=== PATIENT | male | born 1950 | race Caucasian/White ===

== ENCOUNTER 2017-05-04 17:56 | Emergency (ER) | payer MEDICARE, BC ==
--- NOTE | 2017-05-04 19:53 | ED ---
General Adult HPI - General Chief complaint: Extremity Injury, Upper Stated complaint: RT ARM INJURY FROM FALL Time Seen by Provider: 05/04/17 19:16 Source: patient, family, RN notes reviewed Mode of arrival: wheelchair Limitations: physical limitation - History of Present Illness Initial comments: Patient 66-year-old male who presents emergency room today with a chief complaint of an injury to the right arm. He does admit that he was walking out of the [place]ains when he tripped falling for outstretched arm. He does admit to pain locally to the right elbow down to the wrist area. He denies any head injury or loss consciousness. States she's not on any blood thinners. He missed the pain is worse with movement. He denies any other complaints or symptoms. Patient denies any recent fever, chills, shortness of breath, chest pain, back pain, abdominal pain, nausea or vomiting, numbness or tingling, dysuria or hematuria, constipation or diarrhea, headaches or visual changes, or any other complaints. - Related Data Home Medications Medication Instructions Recorded Confirmed ALPRAZolam [Xanax] 0.25 mg PO TID PRN 03/03/14 05/19/16 Carbidopa-Levodopa 25-100 mg 1 tab PO DAILY 03/03/14 05/22/16 [Sinemet 25-100 mg] Cetirizine HCl 10 mg PO DAILY 03/03/14 05/22/16 Nitroglycerin Sl Tabs [Nitrostat] 0.4 mg SUBLINGUAL Q5M PRN 03/03/14 05/19/16 Pantoprazole Sodium [Protonix] 40 mg PO DAILY 03/03/14 05/22/16 Prasugrel [Effient] 10 mg PO DAILY 03/03/14 05/22/16 Rosuvastatin Calcium [Crestor] 40 mg PO DAILY 03/03/14 05/22/16 amLODIPine [Norvasc] 5 mg PO DAILY 03/03/14 05/22/16 Aspirin 81 mg PO DAILY 06/21/14 05/22/16 Insulin Aspart [NovoLOG] See Protocol SQ CONTINUOUS 07/06/14 05/22/16 Allopurinol [Zyloprim] 100 mg PO DAILY 05/19/16 05/22/16 Calcitriol 0.25 mcg PO DIRECTED 05/19/16 05/19/16 Cholecalciferol [Vitamin D3] 1,000 unit PO DAILY 05/19/16 05/22/16 Escitalopram [Lexapro] 20 mg PO DAILY 05/19/16 05/22/16 Ezetimibe [Zetia] 10 mg PO DAILY 05/19/16 05/22/16 Ferrous Sulfate [Feosol] 325 mg PO DAILY 05/19/16 05/22/16 Lisinopril [Zestril] 10 mg PO DAILY 05/19/16 05/22/16 Pregabalin [Lyrica] 50 mg PO BID 05/19/16 05/22/16 Primidone [Mysoline] 50 mg PO BID 05/19/16 05/22/16 Propranolol HCl [Inderal] 60 mg PO DAILY 05/19/16 05/22/16 Rotigotine [Neupro] 1 patch TOPICAL DAILY 05/19/16 05/22/16 Spironolactone-Hctz 25-25Mg 1 tab PO DAILY 05/19/16 05/22/16 [Aldactazide 25-25Mg] Cephalexin [Keflex] 500 mg PO QID 05/22/16 05/22/16 guaiFENesin-Coden 100-10MG/5ML 10 ml PO Q6HR PRN 05/22/16 05/22/16 [Robitussin AC] Previous Rx's Medication Instructions Recorded predniSONE 10 mg PO DAILY #24 tab 05/23/16 Ibuprofen [Motrin] 600 mg PO Q6HR PRN #40 day 05/04/17 Allergies Allergy/AdvReac Type Severity Reaction Status Date / Time No Known Allergies Allergy Verified 05/04/17 18:16 Review of Systems ROS Statement: Those systems with pertinent positive or pertinent negative responses have been documented in the HPI. ROS Other: All systems not noted in ROS Statement are negative. Past Medical History Past Medical History: Coronary Artery Disease (CAD), Chest Pain / Angina, Heart Failure, Diabetes Mellitus, Hyperlipidemia, Hypertension, Myocardial Infarction ([place]), Renal Disease Additional Past Medical History / Comment(s): 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, coronary artery disease, diabetes mellitus, hypertension, chronic renal failure, hyperlipidemia Last Myocardial Infarction Date:: 03/04/14 History of Any Multi-Drug Resistant Organisms: None Reported Past Surgical History: Cholecystectomy, Heart Catheterization, Heart Catheterization With Stent Additional Past Surgical History / Comment(s): shoulder, hemmroid, cardiac stent in june 2014 Past Anesthesia/Blood Transfusion Reactions: No Reported Reaction Additional Past Anesthesia/Blood Transfusion Reaction / Comment(s): Never had a blood transfusion Date of Last Stent Placement:: 05/2014 Past Psychological History: Anxiety Smoking Status: Former smoker Past Alcohol Use History: None Reported Past Drug Use History: None Reported - Past Family History Mother Family Medical History: Diabetes Mellitus General Exam - General Exam Comments Initial Comments: General: The patient is awake and alert, in no distress, and does not appear acutely ill. Neck: The neck is supple, there is no tenderness or JVD. Cardiovascular: There is a regular rate and rhythm. No murmur, rub or gallop is appreciated. Respiratory: Lungs are clear to auscultation, respirations are non-labored, breath sounds are equal. No wheezes, stridor, rales, or rhonchi. Musculoskeletal: Patient does have some moderate swelling tenderness and pain to the medial aspect of the right elbow and proximal right forearm. No tenderness down to the right wrist. Shows good flexion and extension at the right wrist. There is no tenderness to the right shoulder or in the humerus. Pulses equal bilaterally 2+. No tenderness around to the right hand digits. Cap refill less than 2 seconds. Sensations intact. Neurological: A&O x 3. CN II-XII intact, There are no obvious motor or sensory deficits. Coordination appears grossly intact. Speech is normal. Skin: Skin is warm and dry and no rashes or lesions are noted. Psychiatric: Normal mood and affect. Limitations: physical limitation Course Vital Signs 05/04/17 18:14 Temperature 97.5 F L Pulse Rate 67 Respiratory 20 Rate Blood Pressure 193/81 O2 Sat by Pulse 98 Oximetry Medical Decision Making - Medical Decision Making X-rays reviewed negative for any acute fracture dislocation. Results were discussed with the patient per patient is advised follow-up with family doctor/ orthopedics in 7-10 days if symptoms persist for repeat x-rays and further evaluation. Disposition Clinical Impression: Elbow contusion Disposition: HOME SELF-CARE Condition: Good Instructions: Contusion in Adults (ED) Additional Instructions: Please use medication as discussed. Please follow-up with family doctor in the next 2 days of symptoms have not improved. Please return to emergency room if the symptoms increase or worsen or for any other concerns. Prescriptions: Ibuprofen [Motrin] 600 mg PO Q6HR PRN #40 day PRN Reason: Pain Referrals: Harmeet Garner MD [Primary Care Provider] - 1-2 days Time of Disposition: 20:35
--- NOTE | 2017-05-04 20:19 | XR ---
EXAMINATION TYPE: XR elbow complete RT DATE OF EXAM: 05/04/2017 CLINICAL HISTORY: pain TECHNIQUE: Frontal, lateral and oblique images of the right elbow are obtained. COMPARISON: None. FINDINGS: There is no acute fracture/dislocation evident of the elbow. No abnormal fat pad signs ar e seen. Spurring noted. Lateral compartment loose bodies noted. IMPRESSION: There is no acute fracture or dislocation of the elbow. ICD 10 NO FRACTURE, INITIAL EVALUATION
--- NOTE | 2017-05-04 20:20 | XR ---
EXAMINATION TYPE: XR forearm RT DATE OF EXAM: 05/04/2017 CLINICAL HISTORY: pain TECHNIQUE: Frontal and lateral images of the right forearm are obtained. COMPARISON: None. FINDINGS: There is no acute fracture/dislocation evident. The joint spaces appear within normal limi ts. The overlying soft tissue appears unremarkable. Vascular calcifications identified. IMPRESSION: There is no acute fracture or dislocation. ICD 10 NO FRACTURE, INITIAL EVALUATION
[2017-05-04 20:49] VITALS: BP 155/70; PULSE 60; RESP 18; TEMP 98.2
== END 2017-05-04 20:48 | disposition home or self-care (01) ==
LOC: EC 17:56
DX: S50.01XA Contusion of right elbow, initial encounter (principal); M79.631 Pain in right forearm; M79.89 Other specified soft tissue disorders; M25.531 Pain in right wrist; E78.5 Hyperlipidemia, unspecified; I13.0 Hypertensive heart and chronic kidney disease with heart failure and stage 1 through stage 4 chronic kidney disease, or unspecified chronic kidney disease; N18.9 Chronic kidney disease, unspecified; E11.22 Type 2 diabetes mellitus with diabetic chronic kidney disease; I25.10 Atherosclerotic heart disease of native coronary artery without angina pectoris; F41.9 Anxiety disorder, unspecified; I25.2 Old myocardial infarction; Z87.891 Personal history of nicotine dependence; Z79.4 Long term (current) use of insulin; Z79.82 Long term (current) use of aspirin; Z79.899 Other long term (current) drug therapy; Z86.79 Personal history of other diseases of the circulatory system; W18.09XA Striking against other object with subsequent fall, initial encounter; Y93.01 Activity, walking, marching and hiking
CPT/HCPCS: 99283

== ENCOUNTER → 2017-09-12 | Outpatient (CLI) | payer MEDICARE, BC ==
[2017-09-12 11:52] LABS: Appearance,Urine Clear (Clear); Bilirubin,Urine Negative (Negative); Blood,Urine Negative (Negative); Color,Urine Yellow; Glucose,Urine (UA) Negative (Negative); Hyaline Casts,Urine 17 /lpf (0-2); Ketones,Urine Negative (Negative); Leukocyte Esterase,Urine Negative (Negative); Mucus,Urine Rare /hpf; Nitrite,Urine Negative (Negative); Protein,Urine 1+ (Negative); RBC,Urine 1 /hpf (0-5); Specific Gravity,Urine 1.013 (1.001-1.035); Urobilinogen,Urine <2.0 mg/dL (<2.0); WBC,Urine <1 /hpf (0-5)
[2017-09-12 12:00] LABS: Calcium 9.4 mg/dL (8.4-10.2); Potassium 4.9 mmol/L (3.5-5.1)
[2017-09-12 12:03] LABS: Basophils % (A) 1 %; Eosinophils # (A) 0.1 k/uL (0-0.7); Eosinophils % (A) 2 %; HCT 38.9 % (39.0-53.0); HGB 12.9 gm/dL (13.0-17.5); Lymphocytes # (A) 1.3 k/uL (1.0-4.8); Lymphocytes % (A) 30 %; MCH 30.4 pg (25.0-35.0); MCHC 33.3 g/dL (31.0-37.0); MCV 91.3 fL (80.0-100.0); Mean Platelet Volume 7.5; Monocytes # (A) 0.3 k/uL (0-1.0); Monocytes % (A) 6 %; Neutrophils # (A) 2.6 k/uL (1.3-7.7); Neutrophils % (A) 58 %; Platelet Count 177 k/uL (150-450); RBC 4.26 m/uL (4.30-5.90); RDW 13.4 % (11.5-15.5); WBC 4.4 k/uL (3.8-10.6)
--- NOTE | 2017-09-12 15:39 | US ---
EXAMINATION TYPE: US kidneys/renal and bladder DATE OF EXAM: 09/12/2017 COMPARISON: 06/20/2013 CLINICAL HISTORY: 66-year-old male R31.21 Micro Hematuria. Microscopic hematuria Technique: Multiple sonographic images of the kidneys and bladder are obtained. FINDINGS: Right Kidney: 11.7 x 5.8 x 5.8 cm without hydronephrosis. 2.8 x 2.3 x 1.9cm cystic area mid pole. Left Kidney: 11.6 x 6.1 x 5.3 cm without hydronephrosis. 3.5 x 2.6 x 4.4cm cystic area inferior pole Bladder is highly distended with mild circumferential bladder wall thickening at 7 mm.Bilateral Jet s seen: yes IMPRESSION: 1. No hydronephrosis. 2. Mild circumferential bladder wall thickening could represent chronic bladder wall hypertrophy or c ystitis. Clinically correlate.
[2017-09-12 21:31] LABS: Hemoglobin A1C 8.3 % (4.0-6.0)
== END | disposition home or self-care (01) ==
LOC: RADUSWWP 10:40
PROVIDERS: ATTEND Urology
DX: N32.89 Other specified disorders of bladder (principal); E11.21 Type 2 diabetes mellitus with diabetic nephropathy
CPT/HCPCS: 36415; 76770; 80048; 81001; 83036; 85025

== ENCOUNTER → 2018-01-23 | Outpatient (CLI) | payer MEDICARE, BC ==
--- NOTE | 2018-01-23 12:45 | XR ---
EXAMINATION TYPE: XR Hip Bilateral and AP pelvis DATE OF EXAM: 01/23/2018 COMPARISON: NONE HISTORY: Pain bilateral hips TECHNIQUE: Bilateral hips examined in 2 projections each and supplemented with an AP pelvis. FINDINGS: Femoral heads articulate with the acetabulum. Joint spaces appear preserved. No acute fract ures or. There is some hyperostosis at the muscle insertion sites on the pelvis. Vascular calcificati on is also noted. IMPRESSION: 1. No acute osseous abnormality bilateral hips
== END | disposition home or self-care (01) ==
LOC: RADXRMAIN 12:18
PROVIDERS: ATTEND Internal Medicine
DX: M25.551 Pain in right hip (principal); M25.552 Pain in left hip
CPT/HCPCS: 73521

== ENCOUNTER 2018-05-28 01:33 | Observation (INO) | payer MEDICARE, BC ==
[2018-05-28 02:05] LABS: Basophils % (A) 1 %; Eosinophils # (A) 0.1 k/uL (0-0.7); Eosinophils % (A) 2 %; HCT 36.6 % (39.0-53.0); HGB 12.3 gm/dL (13.0-17.5); Lymphocytes # (A) 1.6 k/uL (1.0-4.8); Lymphocytes % (A) 29 %; MCH 29.9 pg (25.0-35.0); MCHC 33.7 g/dL (31.0-37.0); MCV 88.9 fL (80.0-100.0); Mean Platelet Volume 7.8; Monocytes # (A) 0.5 k/uL (0-1.0); Monocytes % (A) 9 %; Neutrophils # (A) 3.1 k/uL (1.3-7.7); Neutrophils % (A) 57 %; Platelet Count 197 k/uL (150-450); RBC 4.12 m/uL (4.30-5.90); WBC 5.5 k/uL (3.8-10.6)
[2018-05-28 02:14] LABS: Albumin 3.3 g/dL (3.5-5.0); Calcium 8.6 mg/dL (8.4-10.2); Magnesium 1.8 mg/dL (1.6-2.3); Partial Thromboplastin Time 23.6 sec (22.0-30.0); Potassium 4.2 mmol/L (3.5-5.1); Total Bilirubin 0.4 mg/dL (0.2-1.3); Total Protein 6.6 g/dL (6.3-8.2)
[2018-05-28 02:24] LABS: Creatine Kinase 82 U/L (55-170)
--- NOTE | 2018-05-28 02:30 | ED ---
Chest Pain [facility] - General Chief Complaint: Chest Pain Stated Complaint: Chest Pain Time Seen by Provider: 05/28/18 01:51 Source: EMS Mode of arrival: EMS Limitations: no limitations - History of Present Illness MD Complaint: chest pain -: hour(s) Onset: during rest Pain Location: left chest Severity: moderate Quality: heaviness Consistency: constant Improves With: nitroglycerin Worsens With: nothing Anginal Symptoms: nausea Treatments Prior to Arrival: nitroglycerin - Related Data Home Medications Medication Instructions Recorded Confirmed ALPRAZolam [Xanax] 0.25 mg PO TID PRN 03/03/14 07/05/17 Carbidopa-Levodopa 25-100 mg 1 tab PO DAILY 03/03/14 07/05/17 [Sinemet 25-100 mg] Cetirizine HCl 10 mg PO DAILY 03/03/14 07/05/17 Nitroglycerin Sl Tabs [Nitrostat] 0.4 mg SUBLINGUAL Q5M PRN 03/03/14 07/05/17 Pantoprazole Sodium [Protonix] 40 mg PO DAILY 03/03/14 07/05/17 Prasugrel [Effient] 10 mg PO DAILY 03/03/14 07/05/17 Rosuvastatin Calcium [Crestor] 40 mg PO DAILY 03/03/14 07/05/17 amLODIPine [Norvasc] 5 mg PO DAILY 03/03/14 07/05/17 Aspirin 81 mg PO DAILY 06/21/14 07/05/17 Insulin Aspart [NovoLOG See Protocol SQ CONTINUOUS 07/06/14 07/05/17 (formulary)] Allopurinol [Zyloprim] 100 mg PO DAILY 05/19/16 07/05/17 Escitalopram [Lexapro] 10 mg PO BID 05/19/16 07/05/17 Ezetimibe [Zetia] 10 mg PO DAILY 05/19/16 07/05/17 Ferrous Sulfate [Iron (65 MG 325 mg PO DAILY 05/19/16 07/05/17 Elemental)] Lisinopril [Zestril] 10 mg PO DAILY 05/19/16 07/05/17 Pregabalin [Lyrica] 50 mg PO BID 05/19/16 07/05/17 Primidone [Mysoline] 50 mg PO BID 05/19/16 07/05/17 Propranolol HCl [Inderal] 60 mg PO DAILY 05/19/16 07/05/17 Rotigotine [Neupro] 1 patch TOPICAL DAILY 05/19/16 07/05/17 Spironolactone-Hctz 25-25Mg 1 tab PO DAILY 05/19/16 07/05/17 [Aldactazide 25-25 MG] Allergies Allergy/AdvReac Type Severity Reaction Status Date / Time No Known Allergies Allergy Verified 05/28/18 01:39 Review of Systems ROS Statement: Those systems with pertinent positive or pertinent negative responses have been documented in the HPI. ROS Other: All systems not noted in ROS Statement are negative. EKG Findings - EKG Results: EKG: interpreted by ERMD, sinus rhythm (Rate approximately 57 bpm, With sinus arrhythmia) EKG shows: bradycardia - Blocks, [place], Hypertrophy, ST Abn: AV and intraventricular conduction: 1 AV block Chamber hypertrophy or enlargement: left ventricular hypertrophy or enlargement (LVE) Repolarization changes or abnormalities: nonspecific abnormality, ST segment, and/or T wave Past Medical History Past Medical History: Coronary Artery Disease (CAD), Chest Pain / Angina, Heart Failure, Diabetes Mellitus, Hyperlipidemia, Hypertension, Myocardial Infarction ([place]), Renal Disease Additional Past Medical History / Comment(s): 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, coronary artery disease, diabetes mellitus, hypertension, chronic renal failure, hyperlipidemia, JEN Last Myocardial Infarction Date:: 03/04/14 History of Any Multi-Drug Resistant Organisms: None Reported Past Surgical History: Cholecystectomy, Heart Catheterization, Heart Catheterization With Stent Additional Past Surgical History / Comment(s): shoulder, hemmroid, cardiac stent in june 2014 Past Anesthesia/Blood Transfusion Reactions: No Reported Reaction Additional Past Anesthesia/Blood Transfusion Reaction / Comment(s): Never had a blood transfusion Date of Last Stent Placement:: 05/2014 Past Psychological History: Anxiety Smoking Status: Former smoker Past Alcohol Use History: None Reported Past Drug Use History: None Reported - Past Family History Father Family Medical History: Cancer Additional Family Medical History / Comment(s): blader cancer Mother Family Medical History: Diabetes Mellitus General Exam Limitations: no limitations General appearance: alert, in no apparent distress Head exam: Present: atraumatic, normocephalic Eye exam: Present: normal appearance. Absent: scleral icterus, conjunctival injection Neck exam: Present: normal inspection Respiratory exam: Present: normal lung sounds bilaterally. Absent: respiratory distress, wheezes, rales, rhonchi, stridor, chest wall tenderness Cardiovascular Exam: Present: regular rate, normal rhythm, normal heart sounds. Absent: systolic murmur, diastolic murmur, rubs, gallop GI/Abdominal exam: Present: soft. Absent: distended, tenderness, guarding, rebound Extremities exam: Present: normal inspection, normal capillary refill. Absent: pedal edema, calf tenderness Back exam: Present: normal inspection. Absent: CVA tenderness (R), CVA tenderness (L) Neurological exam: Present: alert Skin exam: Present: warm, dry, intact, normal color. Absent: rash Course Vital Signs 05/28/18 05/28/18 05/28/18 01:35 03:00 03:30 Temperature 97.9 F Pulse Rate 60 58 L 56 L Respiratory 18 16 16 Rate Blood Pressure 150/71 150/71 141/68 O2 Sat by Pulse 96 98 98 Oximetry 05/28/18 05/28/18 05/28/18 04:00 04:30 05:00 Temperature Pulse Rate 55 L 53 L 54 L Respiratory 15 16 14 Rate Blood Pressure 138/66 142/66 134/71 O2 Sat by Pulse 18 L 97 100 Oximetry 05/28/18 05/28/18 05:30 06:00 Temperature Pulse Rate 55 L 55 L Respiratory 14 15 Rate Blood Pressure 128/64 134/66 O2 Sat by Pulse 97 99 Oximetry Disposition Clinical Impression: Chest pain Disposition: ADMITTED IP TO THIS HOSP Condition: Good Is patient prescribed a controlled substance at d/c from ED?: No
[2018-05-28 02:37] LABS: Troponin I <0.012 ng/mL (0.000-0.034)
--- NOTE | 2018-05-28 03:15 | XR ---
EXAMINATION TYPE: XR chest 2V DATE OF EXAM: 05/28/2018 COMPARISON: 07/05/2017 HISTORY: Chest pain TECHNIQUE: Frontal and lateral views of the chest are obtained. FINDINGS: 2 views supine IMPRESSION: Normal chest. No change.
[2018-05-28] MEDS ORDERED: NITROGLYCERIN SL TABS 0.4 MG TAB SUBLINGUAL PRN (04:15)
[2018-05-28] MEDS ORDERED: ALPRAZolam 0.25 MG TAB PO PRN (04:17)
[2018-05-28] MEDS ORDERED: ONDANSETRON 4 MG/2 ML VIAL IVP STA (04:42)
--- NOTE | 2018-05-28 07:03 | P.HPIM ---
History of Present Illness H&P Date: 05/28/18 Chief Complaint: chest pain 67-year-old male with history of coronary artery disease status post stents last stent was 2013, diabetes mellitus on insulin pump, hypertension Patient presented to the hospital due to symptoms suggestive of unstable angina. He describes left-sided chest pain sharp and heavy in nature 8 out of 10 in severity that happens while resting doing nothing he got 1 attack 2 nights ago which responded to nitro. And then yesterday he was not feeling well and he was still having left-sided chest pain he took aspirin he took nitro and was helping with the pain however due to recurrent attacks he decided come the hospital. He described the pain was associated with nausea only denies any palpitations dizziness lightheadedness or vomiting. But he had some shortness of breath when he is trying to walk around while having the chest pain. Patient last presentation to hospital was in July 2017 for similar complaint where there was concerns for unstable angina he had left heart cath for which cardiology recommended maximal medical therapy at that time as there was no changes from the one prior. Patient also indicated that he saw his [employer] consultant couple weeks ago for routine evaluation where he recommended an echocardiogram and carotid ultrasound to be performed due to patient complaining of generalized weakness he status has not been done yet Left heart cath in July 2017 did show totally occluded circumflex coronary artery and RCA with 30-40% stenosis which has not changed from the one prior Patient otherwise denies any fevers chills denies any coughing denies any abdominal pain denies any vomiting denies any changes in his bowel or urinary habits denies any GI bleeding. Patient denies any orthopnea, paroxysmal in nature no dyspnea, or leg swelling. Currently patient is chest pain-free Review of Systems Pertinent positives as noted in HPI. All other systems were reviewed and are negative Past Medical History Past Medical History: Coronary Artery Disease (CAD), Chest Pain / Angina, Heart Failure, Diabetes Mellitus, Hyperlipidemia, Hypertension, Myocardial Infarction ([place]), Renal Disease Additional Past Medical History / Comment(s): 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, coronary artery disease, diabetes mellitus, hypertension, chronic renal failure, hyperlipidemia, JEN Last Myocardial Infarction Date:: 03/04/14 History of Any Multi-Drug Resistant Organisms: None Reported Past Surgical History: Cholecystectomy, Heart Catheterization, Heart Catheterization With Stent Additional Past Surgical History / Comment(s): shoulder, hemmroid, cardiac stent in june 2014 Past Anesthesia/Blood Transfusion Reactions: No Reported Reaction Additional Past Anesthesia/Blood Transfusion Reaction / Comment(s): Never had a blood transfusion Date of Last Stent Placement:: 05/2014 Past Psychological History: Anxiety Smoking Status: Former smoker Past Alcohol Use History: None Reported Past Drug Use History: None Reported - Past Family History Father Family Medical History: Cancer Additional Family Medical History / Comment(s): blader cancer Mother Family Medical History: Diabetes Mellitus Medications and Allergies Home Medications Medication Instructions Recorded Confirmed Type ALPRAZolam [Xanax] 0.25 mg PO TID PRN 03/03/14 07/05/17 History Carbidopa-Levodopa 25-100 mg 1 tab PO DAILY 03/03/14 07/05/17 History [Sinemet 25-100 mg] Cetirizine HCl 10 mg PO DAILY 03/03/14 07/05/17 History Nitroglycerin Sl Tabs [Nitrostat] 0.4 mg SUBLINGUAL Q5M PRN 03/03/14 07/05/17 History Pantoprazole Sodium [Protonix] 40 mg PO DAILY 03/03/14 07/05/17 History Prasugrel [Effient] 10 mg PO DAILY 03/03/14 07/05/17 History Rosuvastatin Calcium [Crestor] 40 mg PO DAILY 03/03/14 07/05/17 History amLODIPine [Norvasc] 5 mg PO DAILY 03/03/14 07/05/17 History Aspirin 81 mg PO DAILY 06/21/14 07/05/17 History Insulin Aspart [NovoLOG See Protocol SQ CONTINUOUS 07/06/14 07/05/17 History (formulary)] Allopurinol [Zyloprim] 100 mg PO DAILY 05/19/16 07/05/17 History Escitalopram [Lexapro] 10 mg PO BID 05/19/16 07/05/17 History Ezetimibe [Zetia] 10 mg PO DAILY 05/19/16 07/05/17 History Ferrous Sulfate [Iron (65 MG 325 mg PO DAILY 05/19/16 07/05/17 History Elemental)] Lisinopril [Zestril] 10 mg PO DAILY 05/19/16 07/05/17 History Pregabalin [Lyrica] 50 mg PO BID 05/19/16 07/05/17 History Primidone [Mysoline] 50 mg PO BID 05/19/16 07/05/17 History Propranolol HCl [Inderal] 60 mg PO DAILY 05/19/16 07/05/17 History Rotigotine [Neupro] 1 patch TOPICAL DAILY 05/19/16 07/05/17 History Spironolactone-Hctz 25-25Mg 1 tab PO DAILY 05/19/16 07/05/17 History [Aldactazide 25-25 MG] Allergies Allergy/AdvReac Type Severity Reaction Status Date / Time No Known Allergies Allergy Verified 05/28/18 01:39 Physical Exam Vitals: Vital Signs Temp Pulse Resp BP Pulse Ox 05/28/18 05:00 54 L 14 134/71 100 05/28/18 04:30 53 L 16 142/66 97 05/28/18 04:00 55 L 15 138/66 18 L 05/28/18 03:30 56 L 16 141/68 98 05/28/18 03:00 58 L 16 150/71 98 05/28/18 01:35 97.9 F 60 18 150/71 96 Intake and Output 05/27/18 05/27/18 05/28/18 14:59 22:59 06:59 Other: Weight 111.13 kg Constitutional: No acute distress, conversant, pleasant Eyes: Anicteric sclerae, moist conjunctiva, no lid-lag Pupils equal round reactive to light ENMT: NC/AT Oropharynx clear, no erythema, or exudates Neck: Supple, FROM, no masses, or JVD No carotid bruits No thyromegaly Lungs: Clear to auscultation Clear to percussion Normal respiratory effort, no accessory muscle use Cardiovascular: Heart regular in rate and rhythm, No murmurs, gallops, or rubs No peripheral edema Abdominal: Soft Nontender, no guarding, rebound or rigidity Abdomen moving with respiration Normoactive bowel sounds No hepatomegaly, No splenomegaly No palpable mass No abdominal wall hernia noted Skin: Normal temperature, tone, texture, turgor No induration No subcutaneous nodules No rash, lesions No ulcers Extremities: No digital cyanosis No clubbing Pedal pulses intact and symmetrical Radial pulses intact and symmetrical No calf tenderness Psychiatric: Alert and oriented to person, place and time Appropriate affect fair judgment Neuro Muscles Strength 5/5 in all 4 extremities Sensation to light touch grossly present throughout Cranial nerves II-XII grossly intact No focal sensory deficits Lymphatics: no palpable cervical or supraclavicular , or inguinal lymph nodes Results CBC & Chem 7: 05/28/18 01:45 05/28/18 01:45 Labs: Abnormal Lab Results - Last 24 Hours (Table) 05/28/18 05/28/18 Range/Units 01:45 01:45 RBC 4.12 L (4.30-5.90) m/uL Hgb 12.3 L (13.0-17.5) gm/dL Hct 36.6 L (39.0-53.0) % BUN 37 H (9-20) mg/dL Creatinine 2.24 H (0.66-1.25) mg/dL Glucose 218 H (74-99) mg/dL ALT 16 L (21-72) U/L Albumin 3.3 L (3.5-5.0) g/dL Assessment and Plan Assessment: 67-year-old male with history of coronary artery disease status post stents, diabetes mellitus on insulin pump. Admitted under observation with anticipated length of stay less than 48 hours due to unstable angina for further cardiac workup. Patient recently presented for similar complaints back in July 2017 for which left heart cath performed showed stable occlusions unchanged from the one prior and cardiology at that time recommended maximal medical therapy. Plan: Unstable angina Urinary artery disease status post stents 2013 Continue with medical therapy at this time Continue with effient, aspirin, amlodipine, propranolol, statin Cardiology consult Perform echocardiogram of the heart Trend cardiac enzymes Cardiac monitoring CKD III Currently his creatinine is at or around his baseline No changes in urine output Diabetes mellitus on insulin pump Continue with insulin sliding scale Hypertension currently controlled Continue home medications Anemia of chronic disease currently stable Continue with monitoring Hyperlipidemia continue statin DVT prophylaxis heparin subcu 3 times a day Preformed a thorough record review from recent hospitalization as summarized in HPI, last presentation in July 2017 for unstable angina left heart cath revealed stable coronary artery disease cardiology recommended maximal medical therapy at that time. Surrogate decision-maker: Patient's CODE STATUS:*Full code Discussed with: Patient, ER, RN Anticipated discharge: <[address]: Home A total of 60 minutes was spent on the care of this complex patient more than 50 % of the time was spent in counseling and care coordination.
[2018-05-28] MEDS ORDERED: HEPARIN SODIUM,PORCINE 5,000 UNIT/ML 1 ML VIAL SQ SCH (08:00)
[2018-05-28 08:21] LABS: Creatine Kinase 75 U/L (55-170)
[2018-05-28 08:34] LABS: Troponin I <0.012 ng/mL (0.000-0.034)
[2018-05-28] MEDS ORDERED: HEPARIN SODIUM,PORCINE 5,000 UNIT/ML 1 ML VIAL IV PRN (08:37)
[2018-05-28] MEDS ORDERED: SPIRONOLACTONE-HCTZ 25-25MG 1 EACH TAB PO SCH (09:00)
[2018-05-28] MEDS ORDERED: LISINOPRIL 10 MG TAB PO SCH (09:00)
[2018-05-28 09:08] LABS: Basophils % (A) 1 %; Eosinophils # (A) 0.1 k/uL (0-0.7); Eosinophils % (A) 2 %; HCT 38.4 % (39.0-53.0); HGB 12.6 gm/dL (13.0-17.5); Lymphocytes # (A) 1.6 k/uL (1.0-4.8); Lymphocytes % (A) 35 %; MCH 29.6 pg (25.0-35.0); MCHC 32.9 g/dL (31.0-37.0); Mean Platelet Volume 7.2; Monocytes # (A) 0.4 k/uL (0-1.0); Monocytes % (A) 9 %; Neutrophils # (A) 2.5 k/uL (1.3-7.7); Neutrophils % (A) 52 %; Platelet Count 204 k/uL (150-450); RBC 4.27 m/uL (4.30-5.90); WBC 4.7 k/uL (3.8-10.6)
[2018-05-28] MEDS: PANTOPRAZOLE 40 MG TABLET PO SCH ×2 (10:01→10:10)
[2018-05-28] MEDS: CARBIDOPA-LEVODOPA 25-100 MG 1 EACH TAB PO SCH ×2 (10:04→10:10)
--- NOTE | 2018-05-28 10:06 | CONS ---
CONSULTATION ATTENDING PHYSICIAN: Dr. Garner Mr. Luciano is a 67-year-old male with a known history of coronary artery disease with chronically occluded left circumflex, moderate disease in the right coronary artery and mild disease in the LAD who is followed by Dr. Kailyn Crowe, history of hypertension, hyperlipidemia, and diabetes mellitus as well history of chronic kidney disease who was underwent cardiac catheterization in July 2017 and at that time was found to have no progression of disease. He has done reasonably well until the last 48 hours when he has been complaining of episode of chest discomfort with symptoms of worsening dyspnea. He took nitroglycerin the last 2 nights, which is new for him. At the time of my evaluation, he is pain free. He denies any palpitation yet he feels dizzy at times. He has chronic stable peripheral edema. He has no history of PND, orthopnea, or syncope. He had underwent a FFR of his LAD 2 years ago and that was stable. His coronary risk factors are noted for the hypertension, hyperlipidemia and diabetes mellitus. MEDICATIONS: Include amlodipine 5 mg daily, Aldactazide, Crestor 40 mg daily, propranolol 60 mg daily, primidone, Lyrica, Effient 10 mg daily, Protonix 40 mg daily, lisinopril 10 mg daily, insulin, Zetia 10 mg daily, Lexapro, Sinemet, Xanax and aspirin in addition to allopurinol. REVIEW OF SYSTEMS: Respiratory systems: He has dyspnea on exertion. No recent wheezing or cough. GI system: No recent GI bleeding. No peptic ulcer disease. system: No dysuria or hematuria. Nervous system: No history of stroke or seizure. PHYSICAL EXAMINATION: He is a 67-year-old male, alert, oriented, in no apparent distress. Blood pressure 135/60 with a heart rate in the 60s. HEAD: Normocephalic. Eyes: Sclerae nonicteric. Neck: Good carotid upstroke. No bruit. No jugular venous distention. Lungs clear to auscultation. HEART: Regular rate and rhythm S1, S2. No S3 with systolic murmur heard at the base. No diastolic murmur. No rub. ABDOMEN: Soft, nontender. Positive bowel sounds no organomegaly. EXTREMITIES: +1 edema. Intact distal pulses. LAB DATA: BUN and creatinine 37 and 2.24, potassium 4.2. Troponin less than 0.012 for 2 samples. Hemoglobin of 12.3. EKG revealed sinus mechanism with a left axis deviation, poor R wave progression, first-degree AV block and nonspecific ST-T wave changes. Chest x-ray shows no acute changes. IMPRESSION: 1. Chest discomfort consistent with angina pectoris in a patient with known history of coronary artery disease and chronically occluded left circumflex, rule out progression of disease. 2. History of hypertension. 3. Hyperlipidemia. 4. Diabetes mellitus. 5. Chronic kidney disease. RECOMMENDATIONS: From the cardiac standpoint, I would heparinize the patient. I will add nitrate and Ranexa to his regimen. An echocardiogram with Doppler will be obtained. I would favor conservative treatment because of the baseline renal insufficiency, but if needed, repeat cardiac catheterization will be needed. I will obtain the input of the Nephrology service. Those findings and recommendations were discussed with the patient who is in full understanding and agreement. Thank you for this consult. We will follow with you. NATE / DEN: [id number] /
[2018-05-28] MEDS: ATORVASTATIN 80 MG TAB PO SCH (10:08)
[2018-05-28] MEDS: amLODIPine 5 MG TAB PO SCH (10:09)
[2018-05-28] MEDS: PROPRANOLOL 20 MG TAB PO SCH (10:09)
[2018-05-28] MEDS: PRASUGREL 10 MG TAB PO SCH (10:09)
[2018-05-28] MEDS: ESCITALOPRAM 10 MG TAB PO SCH ×2 (10:09→20:42)
[2018-05-28] MEDS: RANOLAZINE 500 MG TAB.ER.12H PO SCH ×2 (10:09→20:42)
[2018-05-28] MEDS: EZETIMIBE 10 MG TAB PO SCH (10:09)
[2018-05-28] MEDS: NITROGLYCERIN OINT 1 INCH/GM PACKET TOPICAL SCH ×2 (10:10→20:46)
[2018-05-28] MEDS: PRIMIDONE 50 MG TAB PO SCH ×2 (10:11→20:42)
[2018-05-28] MEDS: HEPARIN SOD,PORK IN 0.45% NACL 25,000 UNIT in 0.45% NACL 1 500ML.BAG IV SCH (10:13)
[2018-05-28] MEDS: PREGABALIN 50 MG CAP PO SCH ×2 (10:55→20:42)
--- NOTE | 2018-05-28 12:12 | P.NPCON ---
History of Present Illness - Reason for Consult Consult date: 05/28/18 chronic renal failure - Chief Complaint Chest pain - History of Present Illness Admitted to the hospital with episodes of chest pain since last night. He has chronic kidney disease stage IV with a baseline creatinine of 1.8-2.2 MG per DL secondary to diabetic nephropathy. EGFR around 28-29 ML's per minute. He follows with Dr. Cadena as outpatient. No nausea vomiting or diarrhea. No recent contrast studies or NSAID use. Creatinine currently at baseline with few episodes of acute kidney injuries in the past with a peak creatinine of 2.6- 2.[address] Dr[address] Cadena few weeks ago in the office. Currently on medical treatment for angina with heparin. Review of Systems Constitutional: Reports as per HPI Past Medical History Past Medical History: Coronary Artery Disease (CAD), Chest Pain / Angina, Heart Failure, Diabetes Mellitus, Hyperlipidemia, Hypertension, Myocardial Infarction (GA), Renal Disease Additional Past Medical History / Comment(s): 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, coronary artery disease, diabetes mellitus, hypertension, chronic renal failure, hyperlipidemia, JEN Last Myocardial Infarction Date:: 03/04/14 History of Any Multi-Drug Resistant Organisms: None Reported Past Surgical History: Cholecystectomy, Heart Catheterization, Heart Catheterization With Stent Additional Past Surgical History / Comment(s): shoulder, hemmroid, cardiac stent in june 2014 Past Anesthesia/Blood Transfusion Reactions: No Reported Reaction Additional Past Anesthesia/Blood Transfusion Reaction / Comment(s): Never had a blood transfusion Date of Last Stent Placement:: 05/2014 Past Psychological History: Anxiety Smoking Status: Former smoker Past Alcohol Use History: None Reported Past Drug Use History: None Reported - Past Family History Father Family Medical History: Cancer Additional Family Medical History / Comment(s): blader cancer Mother Family Medical History: Diabetes Mellitus Medications and Allergies Home Medications Medication Instructions Recorded Confirmed Type ALPRAZolam [Xanax] 0.25 mg PO BID 03/03/14 05/28/18 History Cetirizine HCl 10 mg PO DAILY 03/03/14 05/28/18 History Nitroglycerin Sl Tabs [Nitrostat] 0.4 mg SUBLINGUAL Q5M PRN 03/03/14 05/28/18 History Prasugrel [Effient] 10 mg PO DAILY 03/03/14 05/28/18 History Rosuvastatin Calcium [Crestor] 40 mg PO DAILY 03/03/14 05/28/18 History amLODIPine [Norvasc] 5 mg PO BID 03/03/14 05/28/18 History Escitalopram [Lexapro] 10 mg PO BID 05/19/16 05/28/18 History Ezetimibe [Zetia] 10 mg PO DAILY 05/19/16 05/28/18 History Ferrous Sulfate [Iron (65 MG 325 mg PO DAILY 05/19/16 05/28/18 History Elemental)] Lisinopril [Zestril] 10 mg PO DAILY 05/19/16 05/28/18 History Pregabalin [Lyrica] 50 mg PO BID 05/19/16 05/28/18 History Primidone [Mysoline] 50 mg PO BID 05/19/16 05/28/18 History Propranolol HCl [Inderal] 60 mg PO DAILY 05/19/16 05/28/18 History Rotigotine [Neupro] 1 patch TRANSDERM DAILY 05/19/16 05/28/18 History Spironolactone-Hctz 25-25Mg 1 tab PO DAILY 05/19/16 05/28/18 History [Aldactazide 25-25 MG] Aspirin EC [Ecotrin Low Dose] 81 mg PO DAILY 05/28/18 05/28/18 History Calcitriol [Rocaltrol] 0.25 mcg PO DAILY 05/28/18 05/28/18 History Cholecalciferol [Vitamin D3] 1,000 unit PO DAILY 05/28/18 05/28/18 History Ergocalciferol (Vitamin D2) 50,000 unit PO Q14D 05/28/18 05/28/18 History [Vitamin D2] Febuxostat [Uloric] 40 mg PO DAILY 05/28/18 05/28/18 History Fluticasone/Salmeterol [Advair 1 puff INHALATION RT-BID PRN 05/28/18 05/28/18 History 100-50 Diskus] Glucagon Emergency Kit 1 mg IM ONCE PRN 05/28/18 05/28/18 History Insulin Aspart (For Pump) [NovoLOG 0.01 unit SQ-PUMP CONTINUOUS 05/28/18 History (For Pump)] Torsemide 10 mg PO DAILY 05/28/18 05/28/18 History Vitamin B Complex 1 cap PO DAILY 05/28/18 05/28/18 History Allergies Allergy/AdvReac Type Severity Reaction Status Date / Time No Known Allergies Allergy Verified 05/28/18 11:04 Physical Exam Vitals: Vital Signs Temp Pulse Resp BP Pulse Ox 05/28/18 11:30 60 154/71 05/28/18 11:00 53 L 149/71 05/28/18 10:00 58 L 150/74 05/28/18 09:00 59 L 16 148/75 05/28/18 08:00 62 18 135/67 05/28/18 07:00 56 L 17 149/80 98 05/28/18 06:00 55 L 15 134/66 99 05/28/18 05:30 55 L 14 128/64 97 05/28/18 05:00 54 L 14 134/71 100 05/28/18 04:30 53 L 16 142/66 97 05/28/18 04:00 55 L 15 138/66 18 L 05/28/18 03:30 56 L 16 141/68 98 05/28/18 03:00 58 L 16 150/71 98 05/28/18 01:35 97.9 F 60 18 150/71 96 Intake and Output 05/27/18 05/28/18 05/28/18 22:59 06:59 14:59 Other: Weight 111.13 kg No acute distress with off and on chest pains S1-S2 heard Lungs clear Abdomen soft No edema Results - Lab Results Most recent lab results Calcium 8.6 mg/dL (8.4-10.2) 05/28/18 01:45 Magnesium 1.8 mg/dL (1.6-2.3) 05/28/18 01:45 05/28/18 07:26 05/28/18 01:45 Assessment and Plan Assessment: #1 CK D4 secondary to diabetic nephropathy baseline creatinine 1.8-2.2 MG per DL , currently at baseline. #2 anginal chest pain currently on medical management. #3 hypertension with C daily #4 diabetes on insulin Plan: #1 creatinine currently at baseline. Discussed with the family regarding history of CAD and recurrent anginal symptoms. He has multiple risk factors with being diabetic and CKD, high risk of acute kidney injury postcontrast. Risks benefits discussed, including dialysis if need arises. #2 adjust antihypertensive medication with the goal of less than 140/90 #3 if cardiac cath is planned use minimal dye and saline 0.9% 100 ML's an hour 12 hours before and 12 of worse after contrast. #4 labs in the morning
[2018-05-28 12:42] LABS: Glucose,Whole Blood 269 mg/dL (75-99)
[2018-05-28] MEDS: INSULIN ASPART 100 UNIT/ML 1 ML 10 ML VIAL SQ SCH ×2 (13:50→13:51)
[2018-05-28 14:49] LABS: Creatine Kinase 66 U/L (55-170)
[2018-05-28 15:03] LABS: Creatine Kinase MB 0.9 ng/mL (0.0-2.4); Troponin I <0.012 ng/mL (0.000-0.034)
[2018-05-28] MEDS: FERROUS SULFATE 325 MG TAB PO SCH (15:47)
[2018-05-28] MEDS ORDERED: INSPUCOR MISCELLANE PRN (16:34)
[2018-05-28] MEDS ORDERED: INSULIN ASPART 100 UNIT/ML 1 ML 10 ML VIAL SQ PRN (16:34)
[2018-05-28] MEDS ORDERED: INSULIN PUMP BASAL RATES 1 EACH MISC MISCELLANE PRN (16:34)
[2018-05-28 16:47] LABS: Glucose,Whole Blood 228 mg/dL (75-99)
[2018-05-28] MEDS: INSULIN PUMP MEAL BOLUS 1 UNIT MISC MISCELLANE SCH ×2 (17:52→20:45)
--- NOTE | 2018-05-28 18:35 | P.PN ---
Progress Note - Text Progress Note Date: 05/28/18 Follow-up note. Patient seen at approximately 11:30. Patient had initially been seen at approximately 5 AM by my partner. Rechecked on patient. Currently chest pain-free, no shortness of breath, no nausea, no vomiting. Patient understands that plan of care. Follow-up troponin testing, echocardiogram in a.m., with further recommendations from cardiology. He has already been seen by nephrology. Will see patient again in a.m.
[2018-05-28 20:19] LABS: Glucose,Whole Blood 201 mg/dL (75-99)
[2018-05-29] MEDS: NITROGLYCERIN OINT 1 INCH/GM PACKET TOPICAL SCH (00:28)
[2018-05-29] MEDS: HEPARIN SOD,PORK IN 0.45% NACL 25,000 UNIT in 0.45% NACL 1 500ML.BAG IV SCH (05:32)
[2018-05-29 06:35] LABS: Glucose,Whole Blood 226 mg/dL (75-99)
[2018-05-29] MEDS ORDERED: SODIUM CHLORIDE 0.9% 1,000 ML IV SCH (08:00)
[2018-05-29 08:32] VITALS: PULSE 57; RESP 16
[2018-05-29] MEDS ORDERED: ISOSORBIDE MONONITRATE ER 30 MG TAB.ER.24H PO SCH (09:00)
[2018-05-29] MEDS ORDERED: ASPIRIN 325 MG TAB PO SCH (09:00)
[2018-05-29] MEDS ORDERED: ASPIRIN 81 MG PO SCH (09:00)
--- NOTE | 2018-05-29 09:07 | P.PN ---
Subjective Patient is seen in follow-up for chronic kidney disease. Patient has chronic kidney disease stage IV secondary to diabetic kidney disease with baseline creatinine in the range of 1.8-2.2. Patient presented with chest pain. States he had 2 episodes of chest discomfort yesterday afternoon but none since then. No vomiting or diarrhea. Admits to good urine output. Vital signs are stable. General: The patient appeared well nourished and normally developed. HEENT: Head exam is unremarkable. Neck is without jugular venous distension. LUNGS: Lungs are clear to auscultation and percussion. Breath sounds decreased. HEART: Rate and Rhythm are regular. First and second heart sounds normal. No murmurs, rubs or gallops. ABDOMEN: Abdominal exam reveals normal bowel sounds. Non-tender and non- distended. No evidence of peritonitis. EXTREMITITES: No clubbing, cyanosis, or edema. Objective - Vital Signs Vital signs: Vital Signs Temp 97.7 F 05/29/18 08:00 Pulse 57 L 05/29/18 08:00 Resp 16 05/29/18 08:00 BP 165/70 05/29/18 08:00 Pulse Ox 100 05/29/18 08:00 Intake & Output 05/28/18 05/29/18 05/29/18 18:59 06:59 18:59 Intake Total 136.667 333.305 Balance 136.667 333.305 Weight 111 kg Intake: Intake, IV Titration 136.667 333.305 Amount Heparin Sod,Pork in 0.45% 136.667 333.305 NaCl 25,000 unit In 0.45 % NaCl 1 500ml.bag @ 9 UNITS/KG/HR 20 mls/hr IV .Q24H [facility] Rx#:[id number] Other: Voiding Method Toilet Toilet # Voids 2 - Labs CBC & Chem 7: 05/28/18 07:26 05/28/18 01:45 Labs: Abnormal Lab Results - Last 24 Hours (Table) 05/28/18 05/28/18 05/28/18 Range/Units 07:26 12:38 16:46 RBC 4.27 L (4.30-5.90) m/uL Hgb 12.6 L (13.0-17.5) gm/dL Hct 38.4 L (39.0-53.0) % APTT (22.0-30.0) sec POC Glucose (mg/dL) 269 H 228 H (75-99) mg/dL 05/28/18 05/28/18 05/29/18 Range/Units 20:18 23:03 06:34 RBC (4.30-5.90) m/uL Hgb (13.0-17.5) gm/dL Hct (39.0-53.0) % APTT 49.5 H (22.0-30.0) sec POC Glucose (mg/dL) 201 H 226 H (75-99) mg/dL Assessment and Plan Plan: Assessment: 1. Chronic kidney disease stage IV secondary to diabetic kidney disease with baseline creatinine in the range of 1.8-2.2. GFR near baseline. 2. Chest pain. Rule out cardiac etiology. Cardiology following. 3. Hypertension with chronic kidney disease. 4. Insulin-dependent diabetes mellitus. Plan: No changes from nephrology standpoint. I discussed with the patient the risk of developing contrast-induced nephropathy post cardiac catheterization. He understands. If cardiac catheterization planned, I will hydrate the patient with normal saline 10-12 hours pre cardiac cath and 10-12 hours post cardiac catheterization. Repeat electrolytes in the morning.
--- NOTE | 2018-05-29 09:32 | ECHOF ---
Referral Reason:CAD, generalized fatigue MEASUREMENTS -------- HEIGHT: 172.7 cm WEIGHT: 110.7 kg BP: 148/76 RVIDd: 3.4 cm (< 3.3) IVSd: 1.3 cm (0.6 - 1.1) LVIDd: 5.3 cm (3.9 - 5.3) LVPWd: 1.3 cm (0.6 - 1.1) IVSs: 1.8 cm LVIDs: 3.3 cm LVPWs: 1.9 cm LA Diam: 3.7 cm (2.7 - 3.8) LAESV Index (A-L): 33.40 ml/m Ao Diam: 3.3 cm (2.0 - 3.7) AV Cusp: 1.9 cm (1.5 - 2.6) EPSS: 0.9 cm MV E Juan Luis: 1.26 m/s MV DecT: 180 ms MV A Juan Luis: 1.11 m/s MV E/A Ratio: 1.13 MV EF SLOPE: 32.63 mm/s (70 - 150) MV EXCURSION: 1.24 cm (> 18.000) FINDINGS -------- Sinus rhythm. This was a technically adequate study. The left ventricular size is normal. There is mild concentric left ventricular hypertrophy. Overa ll left ventricular systolic function is normal with, an EF between 55 - 60 %. The right ventricle is mildly enlarged. LA is midly dilated 29-33ml/m2. The right atrium is normal in size. There is mild aortic valve sclerosis. The mitral valve leaflets are mildly thickened. Moderate mitral annular calcification present. The tricuspid valve appears structurally normal. There is no pulmonic regurgitation present. The aortic root size is normal. Normal inferior vena cava with normal inspiratory collapse consistent with estimated right atrial pre ssure of 5 mmHg. The inferior vena cava is mildly dilated. There is no pericardial effusion. CONCLUSIONS -------- 1. Sinus rhythm. 2. This was a technically adequate study. 3. The left ventricular size is normal. 4. There is mild concentric left ventricular hypertrophy. 5. Overall left ventricular systolic function is normal with, an EF between 55 - 60 %. 6. The right ventricle is mildly enlarged. 7. LA is midly dilated 29-33ml/m2. 8. The right atrium is normal in size. 9. There is mild aortic valve sclerosis. 10. The mitral valve leaflets are mildly thickened. 11. Moderate mitral annular calcification present. 12. The tricuspid valve appears structurally normal. 13. There is no pulmonic regurgitation present. 14. The aortic root size is normal. 15. Normal inferior vena cava with normal inspiratory collapse consistent with estimated right atrial pressure of 5 mmHg. 16. The inferior vena cava is mildly dilated. 17. There is no pericardial effusion. TECHNICAL MGR: JARAD Funez
[2018-05-29] MEDS: amLODIPine 5 MG TAB PO SCH (09:50)
[2018-05-29] MEDS: PRIMIDONE 50 MG TAB PO SCH (09:50)
[2018-05-29] MEDS: FERROUS SULFATE 325 MG TAB PO SCH (09:50)
[2018-05-29] MEDS: PREGABALIN 50 MG CAP PO SCH (09:50)
[2018-05-29] MEDS: ATORVASTATIN 80 MG TAB PO SCH (09:50)
[2018-05-29] MEDS: EZETIMIBE 10 MG TAB PO SCH (09:50)
[2018-05-29] MEDS: PRASUGREL 10 MG TAB PO SCH (09:50)
[2018-05-29] MEDS: PROPRANOLOL 20 MG TAB PO SCH (09:50)
[2018-05-29] MEDS: ESCITALOPRAM 10 MG TAB PO SCH (09:50)
[2018-05-29] MEDS: RANOLAZINE 500 MG TAB.ER.12H PO SCH (09:50)
[2018-05-29] MEDS: INSULIN PUMP MEAL BOLUS 1 UNIT MISC MISCELLANE SCH ×2 (09:58→12:42)
[2018-05-29 10:38] LABS: Basophils % (A) 1 %; Eosinophils # (A) 0.1 k/uL (0-0.7); Eosinophils % (A) 2 %; HGB 12.4 gm/dL (13.0-17.5); Lymphocytes # (A) 1.1 k/uL (1.0-4.8); Lymphocytes % (A) 28 %; MCH 30.5 pg (25.0-35.0); MCHC 33.6 g/dL (31.0-37.0); MCV 90.7 fL (80.0-100.0); Mean Platelet Volume 7.2; Monocytes # (A) 0.3 k/uL (0-1.0); Monocytes % (A) 8 %; Neutrophils # (A) 2.3 k/uL (1.3-7.7); Neutrophils % (A) 58 %; Platelet Count 190 k/uL (150-450); RBC 4.08 m/uL (4.30-5.90); WBC 3.9 k/uL (3.8-10.6)
[2018-05-29 10:41] LABS: Calcium 8.9 mg/dL (8.4-10.2); Potassium 4.8 mmol/L (3.5-5.1)
[2018-05-29] MEDS ORDERED: INSULIN PUMP ACTIVE INSULIN 1 EACH MISC MISCELLANE PRN (11:13)
[2018-05-29] MEDS ORDERED: INSULIN PUMP TARGET GLUCOSE 1 EACH MISC MISCELLANE PRN (11:13)
[2018-05-29 11:26] VITALS: BP 145/77; TEMP 97.6
[2018-05-29 11:57] LABS: Glucose,Whole Blood 184 mg/dL (75-99)
--- NOTE | 2018-05-29 12:21 | P.PN ---
Subjective Mr. Luciano is seen and examined sitting up in bed in no acute distress. Past medical history significant for coronary artery disease with multiple stents to circumflex artery, LAD and RCA. He also has diabetes mellitus, chronic kidney disease, hypertension, dyslipidemia, ischemic cardiomyopathy and former nicotine dependence. He follows with Dr. Crowe in the office. He initially presented with symptoms of chest pain. Ranexa and imdur were added. He has not had any further symptoms of chest pain. He also denies shortness of breath, dizziness or palpitations. Nephrology has also seen the patient and has discussed with him the risks involved with catheterization regarding the kidneys. He has been up ambulating in the halls and has remained asymptomatic. Blood pressure 145/77 heart rate 57 afebrile and maintaining oxygen saturation on room air. Echocardiogram obtained reveals preserved left ventricular systolic function with ejection fraction 55-60% with mildly dilated LA. GENERAL: Well-appearing, well-nourished and in no acute distress. NECK: Supple without JVD or thyromegaly. LUNGS: Breath sounds clear to auscultation bilaterally. Respiration equal and unlabored. No wheezes, rales or rhonchi. HEART: Regular rate and rhythm with systolic ejection murmur at the base, no rubs or gallops. S1 and S2 heard. EXTREMITIES: Normal range of motion, trace bilateral lower extremity nonpitting edema. No clubbing or cyanosis. Peripheral pulses intact. ASSESSMENT Chest discomfort consistent with angina in a patient with known history of coronary artery disease and chronically occluded left circumflex. Hypertension Dyslipidemia Diabetes mellitus Chronic kidney disease Ischemic cardiomyopathy PLAN Conservative treatment is recommended secondary to his chronic kidney disease. We have added him on Ranexa and Imdur and he has remained chest pain-free. Repeat echocardiogram reveals improved left ventricular systolic function. Stable from a cardiac perspective. Follow-up with Dr. Crowe in one to 2 weeks. Patient has have been advised if he has any further symptoms of chest discomfort he may require repeat catheterization. Nurse Practitioner note has been reviewed, I agree with a documented findings and plan of care. Patient was seen and examined. Objective - Vital Signs Vital signs: Vital Signs Temp 97.6 F 05/29/18 11:24 Pulse 57 L 05/29/18 11:24 Resp 16 05/29/18 11:24 BP 145/77 05/29/18 11:24 Pulse Ox 97 05/29/18 11:24 Intake & Output 05/28/18 05/29/18 05/29/18 18:59 06:59 18:59 Intake Total 136.667 333.305 Balance 136.667 333.305 Weight 111 kg Intake: Intake, IV Titration 136.667 333.305 Amount Heparin Sod,Pork in 0.45% 136.667 333.305 NaCl 25,000 unit In 0.45 % NaCl 1 500ml.bag @ 9 UNITS/KG/HR 20 mls/hr IV .Q24H [facility] Rx#:[id number] Other: Voiding Method Toilet Toilet Toilet # Voids 2 - Labs CBC & Chem 7: 05/29/18 10:04 05/29/18 10:04 Labs: Abnormal Lab Results - Last 24 Hours (Table) 05/28/18 05/28/18 05/28/18 Range/Units 12:38 16:46 20:18 RBC (4.30-5.90) m/uL Hgb (13.0-17.5) gm/dL Hct (39.0-53.0) % APTT (22.0-30.0) sec Chloride (98-107) mmol/L Carbon Dioxide (22-30) mmol/L BUN (9-20) mg/dL Creatinine (0.66-1.25) mg/dL Glucose (74-99) mg/dL POC Glucose (mg/dL) 269 H 228 H 201 H (75-99) mg/dL 05/28/18 05/29/18 05/29/18 Range/Units 23:03 06:34 10:04 RBC (4.30-5.90) m/uL Hgb (13.0-17.5) gm/dL Hct (39.0-53.0) % APTT 49.5 H (22.0-30.0) sec Chloride 108 H (98-107) mmol/L Carbon Dioxide 21 L (22-30) mmol/L BUN 34 H (9-20) mg/dL Creatinine 2.03 H (0.66-1.25) mg/dL Glucose 170 H (74-99) mg/dL POC Glucose (mg/dL) 226 H (75-99) mg/dL 05/29/18 05/29/18 Range/Units 10:04 11:41 RBC 4.08 L (4.30-5.90) m/uL Hgb 12.4 L (13.0-17.5) gm/dL Hct 37.0 L (39.0-53.0) % APTT (22.0-30.0) sec Chloride (98-107) mmol/L Carbon Dioxide (22-30) mmol/L BUN (9-20) mg/dL Creatinine (0.66-1.25) mg/dL Glucose (74-99) mg/dL POC Glucose (mg/dL) 184 H (75-99) mg/dL
[2018-05-29 14:48] LABS: Hemoglobin A1C 9.2 % (4.0-6.0)
--- NOTE | 2018-05-29 16:26 | P.DS ---
Providers Date of admission: 05/28/18 04:12 Expected date of discharge: 05/29/18 Attending physician: Priya Baig MD Consults: 05/28/18 04:16 Consult Physician Routine Consulting Provider: Donnell Radford Consult Reason/Comments: chest pain Do you want consulting provider notified?: Yes 05/28/18 08:39 Consult Physician Routine Consulting Provider: Saritha Cadena Consult Reason/Comments: ckd Do you want consulting provider notified?: Yes, Notify in am Primary care physician: Harmeet Garner Hospital Course: Discharge Diagnosis: 1. Chest is comfort consistent with angina pectoris in a patient with known history of coronary artery disease and chronically occluded left circumflex artery 2. Chronic kidney disease 3. Ischemic cardiomyopathy 4. Hypertension 5. Dyslipidemia 6. Diabetes mellitus type 2 on insulin pump 7. Anemia of chronic disease Hospital Course: Patient is a 67-year-old male past medical history of coronary artery disease status post stent with chronically occluded left circumflex artery, diabetes mellitus type 2 on insulin pump, hypertension, and chronic kidney disease who presented with sudden onset left-sided chest pain. Initial vital signs were within normal limits. His troponin was negative. EKG did not reveal any acute ischemia. He was placed on a heparin drip, given aspirin, and nitro. He was admitted for cardiac observation. He had 2 additional repeat troponins. He was started on Imdur and Ranexa. He had a repeat echocardiogram which showed preserved ejection fraction of 55-60%. He was seen by cardiology who recommended maximal medical therapy with his chronic kidney disease. He was resumed on his home medications and Imdur and Ranexa were added in addition. We had a long discussion with the patient stating that should his chest pain recur he should represent to the emergency department for further evaluation. He is aware that if his chest pain recurs he will likely need a cardiac catheterization. We discussed risks and benefits of contrast dye. was present at bedside and all questions were answered to the best of my ability. He will follow-up with Dr. Garner in 1-2 days and will follow-up with Dr. Crowe on June 28 at 9:30 AM. Patient seen and examined at bedside. No chest pain, shortness of breath, nausea, or vomiting. His fatigue is much improved. Someone approximately 30 minutes discussing with him and the wanted to come in, plan of care, and finally her maximal medical therapy. All questions answered. Vital signs reviewed and stable. General: non toxic, no distress, appears at stated age Derm: warm, dry Head: atraumatic, normocephalic, symmetric Eyes: EOMI, no lid lag, anicteric sclera Mouth: no lip lesion, mucus membranes moist Cardiovascular: S1S2 reg, no murmur, positive posterior tibial pulse bilateral, Lungs: CTA bilateral, no rhonchi, no rales , no accessory muscle use Abdominal: soft, nontender to palpation, no guarding, no appreciable organomegaly Ext: no gross muscle atrophy, no edema, no contractures Neuro: CN II-XI grossly intact, no focal neuro deficits Psych: Alert, oriented, appropriate affect A total of 35 minutes of time were spent preparing this complex discharge summary . Pertinent Studies: Echo-ejection fraction 55-60% Patient Condition at Discharge: Good Plan - Discharge Summary Discharge Rx Participant: No New Discharge Prescriptions: New Isosorbide Mononitrate ER [Imdur] 30 mg PO DAILY #90 tab.er.24h Ranolazine [Ranexa] 500 mg PO Q12HR #180 tab.er.12h Carbidopa-Levodopa 25-100 mg [Sinemet 25-100 mg] 1 each PO DAILY tab Continue Prasugrel [Effient] 10 mg PO DAILY Rosuvastatin Calcium [Crestor] 40 mg PO DAILY ALPRAZolam [Xanax] 0.25 mg PO BID Cetirizine HCl 10 mg PO DAILY amLODIPine [Norvasc] 5 mg PO BID Nitroglycerin Sl Tabs [Nitrostat] 0.4 mg SUBLINGUAL Q5M PRN PRN Reason: Chest Pain Spironolactone-Hctz 25-25Mg [Aldactazide 25-25 MG] 1 tab PO DAILY Lisinopril [Zestril] 10 mg PO DAILY Escitalopram [Lexapro] 10 mg PO BID Propranolol HCl [Inderal] 60 mg PO DAILY Primidone [Mysoline] 50 mg PO BID Pregabalin [Lyrica] 50 mg PO BID Ezetimibe [Zetia] 10 mg PO DAILY Rotigotine [Neupro] 1 patch TRANSDERM DAILY Ferrous Sulfate [Iron (65 MG Elemental)] 325 mg PO DAILY Fluticasone/Salmeterol [Advair 100-50 Diskus] 1 puff INHALATION RT-BID PRN PRN Reason: Shortness Of Breath Torsemide 10 mg PO DAILY Glucagon Emergency Kit 1 mg IM ONCE PRN PRN Reason: Hypoglycemia Febuxostat [Uloric] 40 mg PO DAILY Cholecalciferol [Vitamin D3] 1,000 unit PO DAILY Calcitriol [Rocaltrol] 0.25 mcg PO DAILY Vitamin B Complex 1 cap PO DAILY Ergocalciferol (Vitamin D2) [Vitamin D2] 50,000 unit PO Q14D Insulin Aspart (For Pump) [NovoLOG (For Pump)] 0.01 unit SQ-PUMP CONTINUOUS Aspirin EC [Ecotrin Low Dose] 81 mg PO DAILY Discharge Medication List ALPRAZolam [Xanax] 0.25 mg PO BID 03/03/14 [History] Cetirizine HCl 10 mg PO DAILY 03/03/14 [History] Nitroglycerin Sl Tabs [Nitrostat] 0.4 mg SUBLINGUAL Q5M PRN 03/03/14 [History] Prasugrel [Effient] 10 mg PO DAILY 03/03/14 [History] Rosuvastatin Calcium [Crestor] 40 mg PO DAILY 03/03/14 [History] amLODIPine [Norvasc] 5 mg PO BID 03/03/14 [History] Escitalopram [Lexapro] 10 mg PO BID 05/19/16 [History] Ezetimibe [Zetia] 10 mg PO DAILY 05/19/16 [History] Ferrous Sulfate [Iron (65 MG Elemental)] 325 mg PO DAILY 05/19/16 [History] Lisinopril [Zestril] 10 mg PO DAILY 05/19/16 [History] Pregabalin [Lyrica] 50 mg PO BID 05/19/16 [History] Primidone [Mysoline] 50 mg PO BID 05/19/16 [History] Propranolol HCl [Inderal] 60 mg PO DAILY 05/19/16 [History] Rotigotine [Neupro] 1 patch TRANSDERM DAILY 05/19/16 [History] Spironolactone-Hctz 25-25Mg [Aldactazide 25-25 MG] 1 tab PO DAILY 05/19/16 [ History] Aspirin EC [Ecotrin Low Dose] 81 mg PO DAILY 05/28/18 [History] Calcitriol [Rocaltrol] 0.25 mcg PO DAILY 05/28/18 [History] Cholecalciferol [Vitamin D3] 1,000 unit PO DAILY 05/28/18 [History] Ergocalciferol (Vitamin D2) [Vitamin D2] 50,000 unit PO Q14D 05/28/18 [History] Febuxostat [Uloric] 40 mg PO DAILY 05/28/18 [History] Fluticasone/Salmeterol [Advair 100-50 Diskus] 1 puff INHALATION RT-BID PRN 05/28 [History] Glucagon Emergency Kit 1 mg IM ONCE PRN 05/28/18 [History] Insulin Aspart (For Pump) [NovoLOG (For Pump)] 0.01 unit SQ-PUMP CONTINUOUS [History] Torsemide 10 mg PO DAILY 05/28/18 [History] Vitamin B Complex 1 cap PO DAILY 05/28/18 [History] Carbidopa-Levodopa 25-100 mg [Sinemet 25-100 mg] 1 each PO DAILY tab 05/29/18 [ Rx] Isosorbide Mononitrate ER [Imdur] 30 mg PO DAILY #90 tab.er.24h 05/29/18 [Rx] Ranolazine [Ranexa] 500 mg PO Q12HR #180 tab.er.12h 05/29/18 [Rx] Follow up Appointment(s)/Referral(s): Harmeet Garner MD [Primary Care Provider] - 1-2 days Chaparro Crowe MD [STAFF PHYSICIAN] - 06/28/18 9:30 am Patient Instructions/Handouts: Chest Pain (ED) Activity/Diet/Wound Care/Special Instructions: carb consistent heart healthy diet Activity as tolerated Discharge Disposition: HOME SELF-CARE
== END 2018-05-29 14:59 | disposition home or self-care (01) ==
LOC: EC 01:33 → 1SOBS 04:12
PROVIDERS: ADMIT Internal Medicine; ATTEND Internal Medicine
DX: R07.89 Other chest pain (principal); I25.119 Atherosclerotic heart disease of native coronary artery with unspecified angina pectoris; I25.82 Chronic total occlusion of coronary artery; I13.0 Hypertensive heart and chronic kidney disease with heart failure and stage 1 through stage 4 chronic kidney disease, or unspecified chronic kidney disease; N18.4 Chronic kidney disease, stage 4 (severe); G47.33 Obstructive sleep apnea (adult) (pediatric); E11.22 Type 2 diabetes mellitus with diabetic chronic kidney disease; E11.21 Type 2 diabetes mellitus with diabetic nephropathy; I50.9 Heart failure, unspecified; I25.5 Ischemic cardiomyopathy; D63.8 Anemia in other chronic diseases classified elsewhere; E78.5 Hyperlipidemia, unspecified; F41.9 Anxiety disorder, unspecified; Z77.098 Contact with and (suspected) exposure to other hazardous, chiefly nonmedicinal, chemicals; Z96.41 Presence of insulin pump (external) (internal); Z79.82 Long term (current) use of aspirin; Z79.4 Long term (current) use of insulin; Z79.02 Long term (current) use of antithrombotics/antiplatelets; Z79.899 Other long term (current) drug therapy; Z87.891 Personal history of nicotine dependence; Z90.49 Acquired absence of other specified parts of digestive tract; Z95.5 Presence of coronary angioplasty implant and graft; I25.2 Old myocardial infarction; Z83.3 Family history of diabetes mellitus; Z80.52 Family history of malignant neoplasm of bladder; R53.1 Weakness
CPT/HCPCS: 96365; 96366; 96376; 96375; 99285; 36415; 93306; 80061; 80053; 80048; 82550; 82553; 83735; 84484; 85025 ×2; 85610; 85730; 83036; 71046; G0378 ×2; J1644 ×3; J2405

== ENCOUNTER 2018-07-05 11:09 | Emergency (ER) | payer MEDICARE, BC ==
--- NOTE | 2018-07-05 11:52 | ED ---
Recheck HPI - General Chief Complaint: Recheck/Abnormal Lab/Rx Stated Complaint: abnormal labs, high potassium, sent by dr Time Seen by Provider: 07/05/18 11:41 Source: patient, family, RN notes reviewed Mode of arrival: wheelchair Limitations: no limitations - History of Present Illness Initial Comments: Patient is a pleasant 67-year-old male presenting to the emergency department with concerns for hyperkalemia. Patient states he had a routine blood test done yesterday and was called with reported high potassium level of 6.4. Patient has known kidney problems however is not on dialysis. Patient has had previous hyperkalemia however not quite this high. Patient is symptom-free and has no complaints at this time. - Related Data Home Medications Medication Instructions Recorded Confirmed ALPRAZolam [Xanax] 0.25 mg PO BID 03/03/14 07/05/18 Cetirizine HCl 10 mg PO DAILY 03/03/14 07/05/18 Nitroglycerin Sl Tabs [Nitrostat] 0.4 mg SUBLINGUAL Q5M PRN 03/03/14 07/05/18 Prasugrel [Effient] 10 mg PO DAILY 03/03/14 07/05/18 Rosuvastatin Calcium [Crestor] 40 mg PO DAILY 03/03/14 07/05/18 amLODIPine [Norvasc] 5 mg PO BID 03/03/14 07/05/18 Ezetimibe [Zetia] 10 mg PO DAILY 05/19/16 07/05/18 Ferrous Sulfate [Iron (65 MG 325 mg PO DAILY 05/19/16 07/05/18 Elemental)] Lisinopril [Zestril] 10 mg PO DAILY 05/19/16 07/05/18 Pregabalin [Lyrica] 50 mg PO BID 05/19/16 07/05/18 Primidone [Mysoline] 50 mg PO BID 05/19/16 07/05/18 Propranolol HCl [Inderal] 60 mg PO DAILY 05/19/16 07/05/18 Rotigotine [Neupro] 1 patch TRANSDERM DAILY 05/19/16 07/05/18 Spironolactone-Hctz 25-25Mg 1 tab PO DAILY 05/19/16 07/05/18 [Aldactazide 25-25 MG] Aspirin EC [Ecotrin Low Dose] 81 mg PO DAILY 05/28/18 07/05/18 Cholecalciferol [Vitamin D3] 1,000 unit PO DAILY 05/28/18 07/05/18 Ergocalciferol (Vitamin D2) 50,000 unit PO Q14D 05/28/18 07/05/18 [Vitamin D2] Febuxostat [Uloric] 40 mg PO DAILY 05/28/18 07/05/18 Fluticasone/Salmeterol [Advair 1 puff INHALATION RT-BID PRN 05/28/18 07/05/18 100-50 Diskus] Glucagon Emergency Kit 1 mg IM ONCE PRN 05/28/18 07/05/18 Insulin Aspart (For Pump) [NovoLOG 0.01 unit SQ-PUMP CONTINUOUS 05/28/18 (For Pump)] Torsemide 10 mg PO DAILY 05/28/18 07/05/18 Vitamin B Complex 1 cap PO DAILY 05/28/18 07/05/18 Calcitriol 0.25 mcg PO Q48H 07/05/18 07/05/18 Escitalopram [Lexapro] 20 mg PO DAILY 07/05/18 07/05/18 Isosorbide Mononitrate ER [Imdur] 60 mg PO BID 07/05/18 07/05/18 Previous Rx's Medication Instructions Recorded Carbidopa-Levodopa 25-100 mg 1 each PO DAILY tab 05/29/18 [Sinemet 25-100 mg] Ranolazine [Ranexa] 500 mg PO Q12HR #180 tab.er.12h 05/29/18 Allergies Allergy/AdvReac Type Severity Reaction Status Date / Time No Known Allergies Allergy Verified 07/05/18 12:25 Review of Systems ROS Statement: Those systems with pertinent positive or pertinent negative responses have been documented in the HPI. ROS Other: All systems not noted in ROS Statement are negative. 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, coronary artery disease, diabetes mellitus, hypertension, chronic renal failure, hyperlipidemia, JEN Last Myocardial Infarction Date:: 03/04/14 History of Any Multi-Drug Resistant Organisms: None Reported Past Surgical History: Cholecystectomy, Heart Catheterization, Heart Catheterization With Stent Additional Past Surgical History / Comment(s): shoulder, hemmroid, cardiac stent in june 2014 Past Anesthesia/Blood Transfusion Reactions: No Reported Reaction Additional Past Anesthesia/Blood Transfusion Reaction / Comment(s): Never had a blood transfusion Date of Last Stent Placement:: 05/2014 Past Psychological History: Anxiety Smoking Status: Former smoker Past Alcohol Use History: None Reported Past Drug Use History: None Reported - Past Family History Father Family Medical History: Cancer Additional Family Medical History / Comment(s): blader cancer Mother Family Medical History: Diabetes Mellitus General Exam Limitations: no limitations General appearance: alert, in no apparent distress Head exam: Present: atraumatic Eye exam: Present: normal appearance, PERRL ENT exam: Present: normal oropharynx Neck exam: Present: normal inspection Respiratory exam: Present: normal lung sounds bilaterally Cardiovascular Exam: Present: regular rate, normal rhythm GI/Abdominal exam: Present: soft. Absent: tenderness Extremities exam: Present: normal inspection. Absent: pedal edema, calf tenderness Neurological exam: Present: alert Psychiatric exam: Present: normal affect, normal mood Skin exam: Present: normal color Course Vital Signs 07/05/18 07/05/18 07/05/18 11:14 11:32 12:00 Temperature 97.6 F Pulse Rate 56 L 56 L 55 L Respiratory 20 15 16 Rate Blood Pressure 123/65 133/69 O2 Sat by Pulse 98 98 98 Oximetry 07/05/18 07/05/18 07/05/18 12:30 13:00 14:10 Temperature Pulse Rate 55 L 51 L 51 L Respiratory 16 15 16 Rate Blood Pressure 113/63 133/67 124/67 O2 Sat by Pulse 97 97 99 Oximetry - Reevaluation(s) Reevaluation #1: 07/05/18 11:52 EKG: Sinus bradycardia 55. For screening AV block with PA of 320. QRS 122. QT 428. QTC 49. Left axis. LVH. Septal Q waves. Some prominence of the T waves V1 through V3. 07/05/18 13:49 Case was discussed in detail with Dr. vázquez, covering for Dr. garner who would like nephrology notified for care recommendations. 07/05/18 14:14 Case was discussed in detail with Dr. Cadena. She recommends holding Zestril and Aldactazide as well as low potassium diet and follow-up Tuesday for repeat labs. She agrees with calcium and insulin glucose and IV fluid treatment while patient is in the emergency department prior to discharge. Medical Decision Making - Lab Data Result diagrams: 07/05/18 11:54 07/05/18 11:54 Lab Results 07/05/18 07/05/18 07/05/18 Range/Units 11:54 11:54 12:30 WBC 4.2 (3.8-10.6) k/uL RBC 3.78 L (4.30-5.90) m/uL Hgb 11.7 L (13.0-17.5) gm/dL Hct 34.4 L (39.0-53.0) % MCV 91.0 (80.0-100.0) fL MCH 30.9 (25.0-35.0) pg MCHC 33.9 (31.0-37.0) g/dL RDW 13.8 (11.5-15.5) % Plt Count 193 (150-450) k/uL Neutrophils % 51 % Lymphocytes % 37 % Monocytes % 7 % Eosinophils % 2 % Basophils % 1 % Neutrophils # 2.2 (1.3-7.7) k/uL Lymphocytes # 1.6 (1.0-4.8) k/uL Monocytes # 0.3 (0-1.0) k/uL Eosinophils # 0.1 (0-0.7) k/uL Basophils # 0.0 (0-0.2) k/uL Sodium 136 L (137-145) mmol/L Potassium 6.1 H* (3.5-5.1) mmol/L Chloride 103 (98-107) mmol/L Carbon Dioxide 24 (22-30) mmol/L Anion Gap 9 mmol/L BUN 63 H (9-20) mg/dL Creatinine 3.42 H (0.66-1.25) mg/dL Est GFR (CKD-EPI)AfAm 20 (>60 ml/min/1.73 sqM) Est GFR (CKD-EPI)NonAf 17 (>60 ml/min/1.73 sqM) Glucose 151 H (74-99) mg/dL Calcium 8.8 (8.4-10.2) mg/dL Total Bilirubin 0.4 (0.2-1.3) mg/dL AST 24 (17-59) U/L ALT 29 (21-72) U/L Alkaline Phosphatase 89 (38-126) U/L Total Protein 7.2 (6.3-8.2) g/dL Albumin 3.8 (3.5-5.0) g/dL Urine Color Yellow Urine Appearance Clear (Clear) Urine pH 5.5 (5.0-8.0) Ur Specific Clarinda 1.008 (1.001-1.035) Urine Protein 1+ H (Negative) Urine Glucose (UA) Negative (Negative) Urine Ketones Negative (Negative) Urine Blood Negative (Negative) Urine Nitrite Negative (Negative) Urine Bilirubin Negative (Negative) Urine Urobilinogen <2.0 (<2.0) mg/dL Ur Leukocyte Esterase Negative (Negative) Urine RBC 1 (0-5) /hpf Urine WBC 1 (0-5) /hpf Urine Bacteria Rare H (None) /hpf Urine Mucus Occasional H (None) /hpf Disposition Clinical Impression: Hyperkalemia, Renal insufficiency Disposition: HOME SELF-CARE Condition: Stable Instructions: Hyperkalemia (ED), Potassium Content of Foods List (ED), Chronic Kidney Disease (ED) Additional Instructions: Please follow-up with Dr. Cadena on Tuesday and have repeat lab work done. Please also follow-up with primary care physician in the next day or 2 for recheck. Low potassium diet. Hold Zestril and Aldactazide until further recommended by scoop driver, Dr. Cadena Is patient prescribed a controlled substance at d/c from ED?: No Referrals: Harmeet Garner MD [Primary Care Provider] - 1-2 days Time of Disposition: 14:16
[2018-07-05 12:16] LABS: Basophils % (A) 1 %; Eosinophils # (A) 0.1 k/uL (0-0.7); Eosinophils % (A) 2 %; HCT 34.4 % (39.0-53.0); HGB 11.7 gm/dL (13.0-17.5); Lymphocytes # (A) 1.6 k/uL (1.0-4.8); Lymphocytes % (A) 37 %; MCH 30.9 pg (25.0-35.0); MCHC 33.9 g/dL (31.0-37.0); Mean Platelet Volume 7.6; Monocytes # (A) 0.3 k/uL (0-1.0); Monocytes % (A) 7 %; Neutrophils # (A) 2.2 k/uL (1.3-7.7); Neutrophils % (A) 51 %; Platelet Count 193 k/uL (150-450); RBC 3.78 m/uL (4.30-5.90); RDW 13.8 % (11.5-15.5); WBC 4.2 k/uL (3.8-10.6)
[2018-07-05 12:27] LABS: Albumin 3.8 g/dL (3.5-5.0); Calcium 8.8 mg/dL (8.4-10.2); Total Bilirubin 0.4 mg/dL (0.2-1.3); Total Protein 7.2 g/dL (6.3-8.2)
[2018-07-05 12:41] LABS: Potassium 6.1 mmol/L (3.5-5.1)
[2018-07-05 13:11] LABS: Appearance,Urine Clear (Clear); Bacteria,Urine Rare /hpf; Bilirubin,Urine Negative (Negative); Blood,Urine Negative (Negative); Color,Urine Yellow; Glucose,Urine (UA) Negative (Negative); Ketones,Urine Negative (Negative); Leukocyte Esterase,Urine Negative (Negative); Mucus,Urine Occasional /hpf; Nitrite,Urine Negative (Negative); PH, Urine 5.5 (5.0-8.0); Protein,Urine 1+ (Negative); RBC,Urine 1 /hpf (0-5); Specific Gravity,Urine 1.008 (1.001-1.035); Urobilinogen,Urine <2.0 mg/dL (<2.0); WBC,Urine 1 /hpf (0-5)
[2018-07-05] MEDS ORDERED: CALCIUM GLUCONATE 1,000 MG in SODIUM CHLORIDE 0.9% 100 ML IVPB ONE (14:02)
[2018-07-05] MEDS ORDERED: DEXTROSE 50%-WATER 50 ML SYRINGE IVP STA (14:03)
[2018-07-05] MEDS ORDERED: SODIUM CHLORIDE 0.9% 500 ML 500 ML IV STA ×2 (14:03→14:13)
[2018-07-05] MEDS ORDERED: INSULIN REGULAR 100 UNIT/ML VIAL IV ONE (14:03)
[2018-07-05 14:11] VITALS: RESP 16
[2018-07-05] MEDS ORDERED: SODIUM POLYSTYRENE SULFONATE 15 GM/60 ML BOTTLE PO STA (15:15)
[2018-07-05 15:30] VITALS: BP 128/66; PULSE 50; TEMP 98
== END 2018-07-05 15:38 | disposition home or self-care (01) ==
LOC: EC 11:09
DX: E87.5 Hyperkalemia (principal); I25.119 Atherosclerotic heart disease of native coronary artery with unspecified angina pectoris; E11.22 Type 2 diabetes mellitus with diabetic chronic kidney disease; I13.0 Hypertensive heart and chronic kidney disease with heart failure and stage 1 through stage 4 chronic kidney disease, or unspecified chronic kidney disease; N18.9 Chronic kidney disease, unspecified; I50.9 Heart failure, unspecified; E78.5 Hyperlipidemia, unspecified; G47.33 Obstructive sleep apnea (adult) (pediatric); I25.2 Old myocardial infarction; F41.9 Anxiety disorder, unspecified; Z79.899 Other long term (current) drug therapy; Z79.82 Long term (current) use of aspirin; Z79.51 Long term (current) use of inhaled steroids; Z79.4 Long term (current) use of insulin; Z87.891 Personal history of nicotine dependence; Z95.5 Presence of coronary angioplasty implant and graft
CPT/HCPCS: 36415; 93005; 80053; 85025; 81001; 99285; 96365; J0610

== ENCOUNTER 2019-05-02 14:41 | Inpatient (IN) | payer BC, MEDICARE ==
[2019-05-02] MEDS ORDERED: ASPIRIN 81 MG PO STA (15:49)
[2019-05-02] MEDS ORDERED: NITROGLYCERIN OINT 1 INCH/GM PACKET TOPICAL STA (15:49)
--- NOTE | 2019-05-02 15:54 | ED ---
General Adult HPI - General Chief complaint: Recheck/Abnormal Lab/Rx Stated complaint: Lethargic Time Seen by Provider: 05/02/19 15:25 Source: patient, RN notes reviewed Mode of arrival: ambulatory Limitations: no limitations - History of Present Illness Initial comments: This is a 68-year-old male who presents emergency Department with a past medical history significant for diabetes hypertension high cholesterol and a past history of cardiac stents. Patient states for the last couple months he is getting more and more weak. Patient states this is how he gets when he has his heart attacks. Patient also states she's been more more short of breath especially with exertion. Patient states about 2 weeks ago had some chest pain takes nitroglycerin did relieve the chest pain. Patient denies any chest pain currently. Patient states while lying in bed on oxygen he has no shortness of breath. Patient denies any recent fever chills or cough per patient denies abdominal pain patient denies nausea vomiting diarrhea. Patient states every time he stands up he said little bit dizzy and has to stay still until the dizziness stops and he can then proceed. Patient denies swelling to the legs or calf tenderness. Patient states she's been eating normally. Patient denies any significant weight loss or gain. - Related Data Home Medications Medication Instructions Recorded Confirmed ALPRAZolam [Xanax] 0.25 mg PO BID PRN 03/03/14 05/02/19 Cetirizine HCl 10 mg PO DAILY 03/03/14 05/02/19 Nitroglycerin Sl Tabs [Nitrostat] 0.4 mg SUBLINGUAL Q5M PRN 03/03/14 05/02/19 Prasugrel [Effient] 10 mg PO DAILY 03/03/14 05/02/19 Rosuvastatin Calcium [Crestor] 40 mg PO DAILY 03/03/14 05/02/19 amLODIPine [Norvasc] 5 mg PO DAILY 03/03/14 05/02/19 Ezetimibe [Zetia] 10 mg PO DAILY 05/19/16 05/02/19 Ferrous Sulfate [Iron (65 MG 325 mg PO DAILY 05/19/16 05/02/19 Elemental)] Pregabalin [Lyrica] 50 mg PO BID 05/19/16 05/02/19 Propranolol HCl [Inderal] 60 mg PO DAILY 05/19/16 05/02/19 Spironolactone-Hctz 25-25Mg 1 tab PO DAILY 05/19/16 05/02/19 [Aldactazide 25-25 MG] Aspirin EC [Ecotrin Low Dose] 81 mg PO DAILY 05/28/18 05/02/19 Cholecalciferol [Vitamin D3 (25 1,000 unit PO DAILY 05/28/18 05/02/19 Mcg = 1000 Iu)] Ergocalciferol (Vitamin D2) 50,000 unit PO Q14D 05/28/18 05/02/19 [Vitamin D2] Febuxostat [Uloric] 40 mg PO DAILY 05/28/18 05/02/19 Fluticasone/Salmeterol [Advair 1 puff INHALATION RT-BID PRN 05/28/18 05/02/19 100-50 Diskus] Glucagon Emergency Kit 1 mg IM ONCE PRN 05/28/18 05/02/19 Insulin Aspart (For Pump) [NovoLOG 0.01 unit SQ-PUMP CONTINUOUS 05/28/18 05/02/19 (For Pump)] Vitamin B Complex 1 cap PO DAILY 05/28/18 05/02/19 Calcitriol 0.25 mcg PO MOTUWETHFR 07/05/18 05/02/19 Escitalopram [Lexapro] 20 mg PO DAILY 07/05/18 05/02/19 Isosorbide Mononitrate ER [Imdur] 60 mg PO BID 07/05/18 05/02/19 Dulaglutide [Trulicity] 0.75 mg SQ TU 05/02/19 05/02/19 Pramipexole [Mirapex] 0.5 mg PO BID 05/02/19 05/02/19 Ranolazine [Ranexa] 500 mg PO Q12H 05/02/19 05/02/19 Torsemide [Demadex] 20 mg PO DAILY 05/02/19 05/02/19 Allergies Allergy/AdvReac Type Severity Reaction Status Date / Time No Known Allergies Allergy Verified 05/02/19 15:54 Review of Systems ROS Statement: Those systems with pertinent positive or pertinent negative responses have been documented in the HPI. ROS Other: All systems not noted in ROS Statement are negative. Past Medical History Past Medical History: Coronary Artery Disease (CAD), Chest Pain / Angina, Heart Failure, Diabetes Mellitus, Hyperlipidemia, Hypertension, Myocardial Infarction ([place]), Renal Disease Additional Past Medical History / Comment(s): 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, coronary artery disease, diabetes mellitus, hypertension, chronic renal failure, hyperlipidemia, JEN Last Myocardial Infarction Date:: 03/04/14 History of Any Multi-Drug Resistant Organisms: None Reported Past Surgical History: Cholecystectomy, Heart Catheterization, Heart Cathet erization With Stent Additional Past Surgical History / Comment(s): shoulder, hemmroid, cardiac stent in june 2014 Past Anesthesia/Blood Transfusion Reactions: No Reported Reaction Additional Past Anesthesia/Blood Transfusion Reaction / Comment(s): Never had a blood transfusion Date of Last Stent Placement:: 05/2014 Past Psychological History: Anxiety Smoking Status: Former smoker Past Alcohol Use History: None Reported Past Drug Use History: None Reported - Past Family History Father Family Medical History: Cancer Additional Family Medical History / Comment(s): blader cancer Mother Family Medical History: Diabetes Mellitus General Exam - General Exam Comments Initial Comments: GENERAL: Patient is well-developed and well-nourished. Patient is nontoxic and well- hydrated and is in no acute distress. Patient appears fatigued ENT: Neck is soft and supple. No significant lymphadenopathy is noted. Oropharynx is clear. Moist mucous membranes. Neck has full range of motion without eliciting any pain. EYES: The sclera were anicteric and conjunctiva were pink and moist. Extraocular movements were intact and pupils were equal round and reactive to light. Eyelids were unremarkable. PULMONARY: Unlabored respirations. Good breath sounds bilaterally. No audible rales rhonchi or wheezing was noted. CARDIOVASCULAR: There is a regular rate and rhythm without any murmurs gallops or rubs. ABDOMEN: Soft and nontender with normal bowel sounds. No palpable organomegaly was noted. There is no palpable pulsatile mass. SKIN: Skin is clear with no lesions or rashes and otherwise unremarkable. NEUROLOGIC: Patient is alert and oriented x3. Cranial nerves II through XII are grossly intact. Motor and sensory are also intact. Normal speech, volume and content. Symmetrical smile. MUSCULOSKELETAL: Normal extremities with adequate strength and full range of motion. No lower extremity swelling or edema. No calf tenderness. LYMPHATICS: No significant lymphadenopathy is noted PSYCHIATRIC: Normal psychiatric evaluation. Limitations: no limitations Course Vital Signs 05/02/19 05/02/19 05/02/19 15:23 16:04 18:00 Temperature 97.8 F Pulse Rate 67 58 L 58 L Respiratory 18 16 16 Rate Blood Pressure 132/69 137/82 O2 Sat by Pulse 98 99 98 Oximetry Medical Decision Making - Medical Decision Making EKG shows sinus bradycardia at 54 bpm LA interval 264 QRS is 122 QT interval 470 QTC is 433. Patient's EKG shows no ST segment elevation or depression. chest x-ray shows no acute abnormality. I spoke with and he accepted the admission because of the patient's anginal equivalent. Patient states this fatigue has typically preceded his heart attacks in the past. - Lab Data Result diagrams: 05/02/19 15:35 05/02/19 15:35 Lab Results 05/02/19 05/02/19 05/02/19 Range/Units 15:35 15:35 15:35 WBC 5.5 (3.8-10.6) k/uL RBC 3.84 L (4.30-5.90) m/uL Hgb 11.8 L (13.0-17.5) gm/dL Hct 33.1 L (39.0-53.0) % MCV 86.1 (80.0-100.0) fL MCH 30.8 (25.0-35.0) pg MCHC 35.8 (31.0-37.0) g/dL RDW 13.4 (11.5-15.5) % Plt Count 173 (150-450) k/uL Neutrophils % 59 % Lymphocytes % 29 % Monocytes % 6 % Eosinophils % 2 % Basophils % 1 % Neutrophils # 3.3 (1.3-7.7) k/uL Lymphocytes # 1.6 (1.0-4.8) k/uL Monocytes # 0.4 (0-1.0) k/uL Eosinophils # 0.1 (0-0.7) k/uL Basophils # 0.0 (0-0.2) k/uL PT 10.4 (9.0-12.0) sec INR 1.0 (<1.2) APTT 24.9 (22.0-30.0) sec D-Dimer 0.59 (<0.60) mg/L FEU Sodium 138 (137-145) mmol/L Potassium 4.3 (3.5-5.1) mmol/L Chloride 101 (98-107) mmol/L Carbon Dioxide 26 (22-30) mmol/L Anion Gap 11 mmol/L BUN 47 H (9-20) mg/dL Creatinine 3.04 H (0.66-1.25) mg/dL Est GFR (CKD-EPI)AfAm 23 (>60 ml/min/1.73 sqM) Est GFR (CKD-EPI)NonAf 20 (>60 ml/min/1.73 sqM) Glucose 258 H (74-99) mg/dL Plasma Lactic Acid Geo (0.7-2.0) mmol/L Calcium 9.3 (8.4-10.2) mg/dL Magnesium 2.1 (1.6-2.3) mg/dL Total Bilirubin 0.4 (0.2-1.3) mg/dL AST 27 (17-59) U/L ALT 25 (21-72) U/L Alkaline Phosphatase 96 (38-126) U/L Troponin I (0.000-0.034) ng/mL NT-Pro-B Natriuret Pep pg/mL Total Protein 7.0 (6.3-8.2) g/dL Albumin 3.7 (3.5-5.0) g/dL Urine Color Urine Appearance (Clear) Urine pH (5.0-8.0) Ur Specific Varina (1.001-1.035) Urine Protein (Negative) Urine Glucose (UA) (Negative) Urine Ketones (Negative) Urine Blood (Negative) Urine Nitrite (Negative) Urine Bilirubin (Negative) Urine Urobilinogen (<2.0) mg/dL Ur Leukocyte Esterase (Negative) Urine RBC (0-5) /hpf Urine WBC (0-5) /hpf Amorphous Sediment (None) /hpf 05/02/19 05/02/19 05/02/19 Range/Units 15:35 15:35 15:35 WBC (3.8-10.6) k/uL RBC (4.30-5.90) m/uL Hgb (13.0-17.5) gm/dL Hct (39.0-53.0) % MCV (80.0-100.0) fL MCH (25.0-35.0) pg MCHC (31.0-37.0) g/dL RDW (11.5-15.5) % Plt Count (150-450) k/uL Neutrophils % % Lymphocytes % % Monocytes % % Eosinophils % % Basophils % % Neutrophils # (1.3-7.7) k/uL Lymphocytes # (1.0-4.8) k/uL Monocytes # (0-1.0) k/uL Eosinophils # (0-0.7) k/uL Basophils # (0-0.2) k/uL PT (9.0-12.0) sec INR (<1.2) APTT (22.0-30.0) sec D-Dimer (<0.60) mg/L FEU Sodium (137-145) mmol/L Potassium (3.5-5.1) mmol/L Chloride (98-107) mmol/L Carbon Dioxide (22-30) mmol/L Anion Gap mmol/L BUN (9-20) mg/dL Creatinine (0.66-1.25) mg/dL Est GFR (CKD-EPI)AfAm (>60 ml/min/1.73 sqM) Est GFR (CKD-EPI)NonAf (>60 ml/min/1.73 sqM) Glucose (74-99) mg/dL Plasma Lactic Acid Geo 1.0 (0.7-2.0) mmol/L Calcium (8.4-10.2) mg/dL Magnesium (1.6-2.3) mg/dL Total Bilirubin (0.2-1.3) mg/dL AST (17-59) U/L ALT (21-72) U/L Alkaline Phosphatase (38-126) U/L Troponin I <0.012 (0.000-0.034) ng/mL NT-Pro-B Natriuret Pep 1310 pg/mL Total Protein (6.3-8.2) g/dL Albumin (3.5-5.0) g/dL Urine Color Urine Appearance (Clear) Urine pH (5.0-8.0) Ur Specific Varina (1.001-1.035) Urine Protein (Negative) Urine Glucose (UA) (Negative) Urine Ketones (Negative) Urine Blood (Negative) Urine Nitrite (Negative) Urine Bilirubin (Negative) Urine Urobilinogen (<2.0) mg/dL Ur Leukocyte Esterase (Negative) Urine RBC (0-5) /hpf Urine WBC (0-5) /hpf Amorphous Sediment (None) /hpf 05/02/19 Range/Units 16:30 WBC (3.8-10.6) k/uL RBC (4.30-5.90) m/uL Hgb (13.0-17.5) gm/dL Hct (39.0-53.0) % MCV (80.0-100.0) fL MCH (25.0-35.0) pg MCHC (31.0-37.0) g/dL RDW (11.5-15.5) % Plt Count (150-450) k/uL Neutrophils % % Lymphocytes % % Monocytes % % Eosinophils % % Basophils % % Neutrophils # (1.3-7.7) k/uL Lymphocytes # (1.0-4.8) k/uL Monocytes # (0-1.0) k/uL Eosinophils # (0-0.7) k/uL Basophils # (0-0.2) k/uL PT (9.0-12.0) sec INR (<1.2) APTT (22.0-30.0) sec D-Dimer (<0.60) mg/L FEU Sodium (137-145) mmol/L Potassium (3.5-5.1) mmol/L Chloride (98-107) mmol/L Carbon Dioxide (22-30) mmol/L Anion Gap mmol/L BUN (9-20) mg/dL Creatinine (0.66-1.25) mg/dL Est GFR (CKD-EPI)AfAm (>60 ml/min/1.73 sqM) Est GFR (CKD-EPI)NonAf (>60 ml/min/1.73 sqM) Glucose (74-99) mg/dL Plasma Lactic Acid Geo (0.7-2.0) mmol/L Calcium (8.4-10.2) mg/dL Magnesium (1.6-2.3) mg/dL Total Bilirubin (0.2-1.3) mg/dL AST (17-59) U/L ALT (21-72) U/L Alkaline Phosphatase (38-126) U/L Troponin I (0.000-0.034) ng/mL NT-Pro-B Natriuret Pep pg/mL Total Protein (6.3-8.2) g/dL Albumin (3.5-5.0) g/dL Urine Color Light Yellow Urine Appearance Clear (Clear) Urine pH 6.5 (5.0-8.0) Ur Specific Varina 1.009 (1.001-1.035) Urine Protein 1+ H (Negative) Urine Glucose (UA) 3+ H (Negative) Urine Ketones Negative (Negative) Urine Blood Negative (Negative) Urine Nitrite Negative (Negative) Urine Bilirubin Negative (Negative) Urine Urobilinogen <2.0 (<2.0) mg/dL Ur Leukocyte Esterase Negative (Negative) Urine RBC 4 (0-5) /hpf Urine WBC 1 (0-5) /hpf Amorphous Sediment Rare H (None) /hpf Disposition Clinical Impression: Anginal equivalent Disposition: ADMITTED IP TO THIS HOSP Referrals: Harmeet Garner MD [Primary Care Provider] - 1-2 days Time of Disposition: 18:22
[2019-05-02 16:14] LABS: Albumin 3.7 g/dL (3.5-5.0); Calcium 9.3 mg/dL (8.4-10.2); Magnesium 2.1 mg/dL (1.6-2.3); Potassium 4.3 mmol/L (3.5-5.1); Total Bilirubin 0.4 mg/dL (0.2-1.3)
[2019-05-02 16:15] LABS: Basophils % (A) 1 %; Eosinophils # (A) 0.1 k/uL (0-0.7); Eosinophils % (A) 2 %; HCT 33.1 % (39.0-53.0); HGB 11.8 gm/dL (13.0-17.5); Lymphocytes # (A) 1.6 k/uL (1.0-4.8); Lymphocytes % (A) 29 %; MCH 30.8 pg (25.0-35.0); MCHC 35.8 g/dL (31.0-37.0); MCV 86.1 fL (80.0-100.0); Monocytes # (A) 0.4 k/uL (0-1.0); Monocytes % (A) 6 %; Neutrophils # (A) 3.3 k/uL (1.3-7.7); Neutrophils % (A) 59 %; Platelet Count 173 k/uL (150-450); RBC 3.84 m/uL (4.30-5.90); RDW 13.4 % (11.5-15.5); WBC 5.5 k/uL (3.8-10.6)
[2019-05-02 16:22] LABS: D-Dimer 0.59 mg/L FEU (<0.60); Partial Thromboplastin Time 24.9 sec (22.0-30.0); Prothrombin Time 10.4 sec (9.0-12.0)
--- NOTE | 2019-05-02 16:23 | XR ---
EXAMINATION TYPE: XR chest 2V DATE OF EXAM: 05/02/2019 COMPARISON: Chest x-ray May 28, 2018 HISTORY: Weakness. TECHNIQUE: Frontal and lateral views of the chest are obtained. FINDINGS: Overlying EKG leads are present. There is no focal air space opacity, pleural effusion, or pneumothorax seen. The cardiac silhouette size is within normal limits. Multilevel spurring of thora cic spine. IMPRESSION: No acute cardiopulmonary process. No significant change from prior.
[2019-05-02 16:59] LABS: Amorphous Sediment,Urine Rare /hpf; Appearance,Urine Clear (Clear); Bilirubin,Urine Negative (Negative); Blood,Urine Negative (Negative); Color,Urine Light Yellow; Glucose,Urine (UA) 3+ (Negative); Ketones,Urine Negative (Negative); Leukocyte Esterase,Urine Negative (Negative); Nitrite,Urine Negative (Negative); PH, Urine 6.5 (5.0-8.0); Protein,Urine 1+ (Negative); RBC,Urine 4 /hpf (0-5); Specific Gravity,Urine 1.009 (1.001-1.035); Urobilinogen,Urine <2.0 mg/dL (<2.0); WBC,Urine 1 /hpf (0-5)
[2019-05-02] MEDS ORDERED: NITROGLYCERIN SL TABS 0.4 MG TAB SUBLINGUAL PRN (18:22)
[2019-05-02] MEDS ORDERED: ALPRAZolam 0.25 MG TAB PO PRN (18:33)
[2019-05-02] MEDS ORDERED: NALOXONE 0.4 MG/ML 1 ML VIAL IV PRN (18:49)
--- NOTE | 2019-05-02 18:53 | P.HPIM ---
History of Present Illness H&P Date: 05/02/19 Chief Complaint: Generalized fatigue and chest pain 68-year-old male with PMH of CAD post stents, chronic kidney disease, diabetes mellitus, gout, RLS presents to the ED for constellation of symptoms. Patient complains of extreme fatigue that has been ongoing for the past 2 months. This is limited him from doing the activities that he once enjoyed doing, such as bowling. Patient states that he is frequently tired and is now finding it more difficult to do his ADLs, IADLs. Patient also reports lightheadedness, only when standing up from a sitting or laying position. This is been ongoing for the past month. Patient reports chest pain that has been on and off for many years but has been progressively getting worse over the last 2 weeks. Patient states that the ch est pain is not related to exertion. Patient states that his chest pain 2 weeks ago was resolved with nitroglycerin. Patient reports 2 episodes of chest pain while in the ED today. Chest pain is described as left-sided, stabbing in nature, 5 out of 10 in severity without radiation. There are no aggravating factors, such as exertion. The ED, vital signs are stable. CBC showed hemoglobin of 11.8. D-dimer is negative. Coagulation panel was negative. CMP showed even 47 and creatinine of 3.04. Troponin was less than 0.012, EKG showing sinus bradycardia with first- degree AV block. BNP was 1310, chest x-ray was negative. Patient is admitted for chest pain, rule out acute coronary syndrome with cardiology on consult. Review of Systems Pertinent positives and negatives as discussed in HPI, a complete review of systems was performed and all other systems are negative. Past Medical History Past Medical History: Coronary Artery Disease (CAD), Chest Pain / Angina, Heart Failure, Diabetes Mellitus, Hyperlipidemia, Hypertension, Myocardial Infarction ([place]), Renal Disease Additional Past Medical History / Comment(s): 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, coronary artery disease, diabetes mellitus, hypertension, chronic renal failure, hyperlipidemia, JEN Last Myocardial Infarction Date:: 03/04/14 History of Any Multi-Drug Resistant Organisms: None Reported Past Surgical History: Cholecystectomy, Heart Catheterization, Heart Catheterization With Stent Additional Past Surgical History / Comment(s): shoulder, hemmroid, cardiac stent in june 2014 Past Anesthesia/Blood Transfusion Reactions: No Reported Reaction Additional Past Anesthesia/Blood Transfusion Reaction / Comment(s): Never had a blood transfusion Date of Last Stent Placement:: 05/2014 Past Psychological History: Anxiety Smoking Status: Former smoker Past Alcohol Use History: None Reported Past Drug Use History: None Reported - Past Family History Father Family Medical History: Cancer Additional Family Medical History / Comment(s): blader cancer Mother Family Medical History: Diabetes Mellitus Medications and Allergies Home Medications Medication Instructions Recorded Confirmed Type ALPRAZolam [Xanax] 0.25 mg PO BID PRN 03/03/14 05/02/19 History Cetirizine HCl 10 mg PO DAILY 03/03/14 05/02/19 History Nitroglycerin Sl Tabs [Nitrostat] 0.4 mg SUBLINGUAL Q5M PRN 03/03/14 05/02/19 History Prasugrel [Effient] 10 mg PO DAILY 03/03/14 05/02/19 History Rosuvastatin Calcium [Crestor] 40 mg PO DAILY 03/03/14 05/02/19 History amLODIPine [Norvasc] 5 mg PO DAILY 03/03/14 05/02/19 History Ezetimibe [Zetia] 10 mg PO DAILY 05/19/16 05/02/19 History Ferrous Sulfate [Iron (65 MG 325 mg PO DAILY 05/19/16 05/02/19 History Elemental)] Pregabalin [Lyrica] 50 mg PO BID 05/19/16 05/02/19 History Propranolol HCl [Inderal] 60 mg PO DAILY 05/19/16 05/02/19 History Spironolactone-Hctz 25-25Mg 1 tab PO DAILY 05/19/16 05/02/19 History [Aldactazide 25-25 MG] Aspirin EC [Ecotrin Low Dose] 81 mg PO DAILY 05/28/18 05/02/19 History Cholecalciferol [Vitamin D3 (25 1,000 unit PO DAILY 05/28/18 05/02/19 History Mcg = 1000 Iu)] Ergocalciferol (Vitamin D2) 50,000 unit PO Q14D 05/28/18 05/02/19 History [Vitamin D2] Febuxostat [Uloric] 40 mg PO DAILY 05/28/18 05/02/19 History Fluticasone/Salmeterol [Advair 1 puff INHALATION RT-BID PRN 05/28/18 05/02/19 History 100-50 Diskus] Glucagon Emergency Kit 1 mg IM ONCE PRN 05/28/18 05/02/19 History Insulin Aspart (For Pump) [NovoLOG 0.01 unit SQ-PUMP CONTINUOUS 05/28/18 05/02/19 History (For Pump)] Vitamin B Complex 1 cap PO DAILY 05/28/18 05/02/19 History Calcitriol 0.25 mcg PO MOTUWETHFR 07/05/18 05/02/19 History Escitalopram [Lexapro] 20 mg PO DAILY 07/05/18 05/02/19 History Isosorbide Mononitrate ER [Imdur] 60 mg PO BID 07/05/18 05/02/19 History Dulaglutide [Trulicity] 0.75 mg SQ TU 05/02/19 05/02/19 History Pramipexole [Mirapex] 0.5 mg PO BID 05/02/19 05/02/19 History Ranolazine [Ranexa] 500 mg PO Q12H 05/02/19 05/02/19 History Torsemide [Demadex] 20 mg PO DAILY 05/02/19 05/02/19 History Allergies Allergy/AdvReac Type Severity Reaction Status Date / Time No Known Allergies Allergy Verified 05/02/19 15:54 Physical Exam Vitals: Vital Signs Temp Pulse Resp BP Pulse Ox 05/02/19 18:00 58 L 16 137/82 98 05/02/19 16:04 58 L 16 99 05/02/19 15:23 97.8 F 67 18 132/69 98 Intake and Output 05/02/19 05/02/19 05/02/19 06:59 14:59 22:59 Other: Weight 106.141 kg General: [non toxic], [fine tremors of the hands], [appears at stated age] Derm: [warm], [dry] Head: [atraumatic], [normocephalic], [symmetric] Eyes: [EOMI], [no lid lag], [anicteric sclera] Mouth: [no lip lesion], [mucus membranes moist] Cardiovascular: [S1S2 reg], [no murmur], [positive DP pulse bilateral], Lungs: [CTA bilateral], [no rhonchi, no rales] , [no accessory muscle use] Abdominal: [soft], [ nontender to palpation], [no guarding], [no appreciable organomegaly] Ext: [no gross muscle atrophy], [1+ lower extremity edema], [no contractures] Neuro: [ CN II-XI grossly intact], [no focal neuro deficits] Psych: [Alert], [oriented], [appropriate affect] Results CBC & Chem 7: 05/02/19 15:35 05/02/19 15:35 Labs: Abnormal Lab Results - Last 24 Hours (Table) 05/02/19 05/02/19 05/02/19 Range/Units 15:35 15:35 16:30 RBC 3.84 L (4.30-5.90) m/uL Hgb 11.8 L (13.0-17.5) gm/dL Hct 33.1 L (39.0-53.0) % BUN 47 H (9-20) mg/dL Creatinine 3.04 H (0.66-1.25) mg/dL Glucose 258 H (74-99) mg/dL Urine Protein 1+ H (Negative) Urine Glucose (UA) 3+ H (Negative) Amorphous Sediment Rare H (None) /hpf Assessment and Plan Assessment: Assessment and Plan Chest pain with history of CAD with stents, rule out acute coronary syndrome Acute kidney injury on chronic kidney disease Diabetes mellitus with hyperglycemia Lightheadedness, likely orthostasis Fatigue History of gout Hypertension RLS Troponin less than 0.012 with EKG showing sinus bradycardia with first-degree AV block. Chest x-ray is negative. D-dimer is negative, low concerns for PE. Plans: Trend troponin/EKG to rule out ACS. Patient has extensive cardiac history and history of chest pain is suggestive of angina. Restart aspirin, rosuvastatin, propranolol, and parasugrel. Restart ranolazine. Telemetry monitoring. Follow cardiology consultation. Creatinine is 3.04. Patient is aware of chronic kidney disease and follows Dr. Cadena. Slightly above baseline. Plans: Start gentle hydration with normal saline at 50 mL per hour. Avoid nephrotoxins. Hold torsemide at this time. DC hydrochlorothiazide. Continue calcitriol. Follow nephrology recommendations. [id number] glucose 258. Plans: Insulin pump per home dose. Regular Accu- Cheks. Hypoglycemic precautions. Appears orthostatic. Plans: Gentle hydration as above. Obtain orthostats. Follow-up echocardiogram. Rule out ACS. Telemetry monitoring. Patient is on many sedative medication at home. Plans: Hold cetirizine, pregabalin. Ordered TSH. Follow PT and OT recommendations. Plans: Continue Febuxostat. BP 137/82. Plans: Continue amlodipine, Imdur, propranolol. Monitor vitals, adjust medications as necessary. Plans: Continue pramipexole. DVT prophylaxis: [SCD boots] Discussed with: [Patient and family] Anticipated discharge: [1-2 days] Anticipated discharge place: [Home] A total of [45] minutes was spent on the care of this complex patient more than 50% of the time was spent in counseling and care coordination. Patient names his Ebony decision-maker in the case that he can't make decisions for himself. Patient wants to remain full code at this time.
[2019-05-02 20:41] VITALS: BMI 35.6
[2019-05-02] MEDS ORDERED: ISOSORBIDE MONONITRATE ER 60 MG TAB.ER.24H PO SCH (21:00)
[2019-05-02] MEDS: SODIUM CHLORIDE 0.9% 1,000 ML IV SCH (21:18)
[2019-05-02] MEDS: RANOLAZINE 500 MG TAB.ER.12H PO SCH (21:23)
[2019-05-02] MEDS: Insulin Aspart (For Pump) 100 UNIT/ML VIAL SQ-PUMP SCH (21:26)
[2019-05-02] MEDS: PRAMIPEXOLE 0.5 MG TAB PO SCH (21:27)
[2019-05-03] MEDS: NITROGLYCERIN OINT 1 INCH/GM PACKET TOPICAL SCH ×2 (02:28→05:51)
[2019-05-03 05:26] LABS: Cholesterol 95 mg/dL (<200); HDL Cholesterol 32 mg/dL (40-60); LDL Cholesterol,Calculated 22 mg/dL (0-99); Triglycerides 204 mg/dL (<150)
[2019-05-03 07:17] LABS: Glucose,Whole Blood 155 mg/dL (75-99)
[2019-05-03] MEDS ORDERED: ESCITALOPRAM 20 MG TAB PO SCH (09:00)
[2019-05-03] MEDS ORDERED: ASPIRIN 325 MG TAB PO SCH (09:00)
[2019-05-03] MEDS ORDERED: SPIRONOLACTONE-HCTZ 25-25MG 1 EACH TAB PO SCH (09:00)
[2019-05-03 11:39] LABS: T4, Free (Free Thyroxine) 0.93 ng/dL (0.78-2.19)
--- NOTE | 2019-05-03 11:56 | P.CRDCN ---
History of Present Illness History of present illness: This is a pleasant 68-year-old male past medical history significant for coronary artery disease with a chronically occluded left circumflex status post stent placement to the circumflex 2012 and again in 2013, moderate disease in the RCA, mild disease in the LAD s/p stent placement in 2004 and 2013. He also has hypertension dyslipidemia, diabetes mellitus and chronic kidney di sease. He follows in the office with Dr. Crowe. We've been asked to see him in consultation secondary to increased fatigue. The patient states for the previous 2 weeks he has noticed he has decreased tolerance for his normal activities. For example he bowls on a weekly bowling league and he was only able to complete 1 game yesterday due to feeling extremely exhausted. He denies symptoms of chest discomfort, shortness of breath, dizziness or palpitations. He states he has not been sleeping well but has no PND or orthopnea. He is seen and examined resting comfortably in bed in no acute distress. EKG on arrival reveals sinus bradycardia, first-degree AV block with a heart rate of 54, left axis deviation, evidence of anterior wall myocardial infarction and nonspecific T-wave abnormalities. Chest x-ray is negative for acute cardiopulmonary process. Laboratory data reviewed, WBC 5.5, hemoglobin 11.8, platelets 173, d- dimer 0.59, sodium 138, potassium 4.3, creatinine 3.04 with GFR of 20, magnesium 2.1, cardiac enzymes negative 3, proBNP 1310, LDL 22. Current daily cardiac medications include aspirin 81 mg daily, Zetia 10 mg daily, Imdur 60 mg twice a day, Effient 10 mg daily, propanolol 60 mg daily, Ranexa 500 mg twice a day, rosuvastatin 40 mg daily, Aldactone/hydrochlorothiazide 25/25 mg daily, torsemide 20 mg daily and amlodipine 5 mg daily. Most recent echocardiogram 05/2018 , all the size and function, normal diastolic function, mild concentric LVH, bicuspid aortic valve, no aortic regurgitation, calcified aortic valve and mild MR. At the time of my exam: CONSTITUTIONAL: Denies fever. Denies chills. EYES: Denies blurred vision. Denies vision changes. Denies eye pain. EARS, NOSE, MOUTH & THROAT: Denies headache. Denies sore throat. Denies ear pain. CARDIOVASCULAR: Denies chest pain. Denies shortness of breath. Denies orthopnea. Denies PND. Denies palpitations. RESPIRATORY: Denies cough. GASTROINTESTINAL: Denies abdominal pain. Denies diarrhea. Denies constipation. Denies nausea. Denies vomiting. MUSCULOSKELETAL: Denies myalgias. INTEGUMENTARY: Denies pruitis. Denies rash. NEUROLOGIC: Denies numbness. Denies tingling. Denies weakness. PSYCHIATRIC: Denies anxiety. Denies depression. ENDOCRINE: Complains of increased fatigue. Denies weight change. Denies polydipsia. Denies polyurina. GENITOURINARY: Denies burning, hematuria or urgency with micturation. HEMATOLOGIC: Denies history of anemia. Denies bleeding. Blood pressure 146/55 heart rate 64 afebrile maintaining oxygen saturation on room air GENERAL: This is a 68-year-old male in no apparent distress at the time of my examination. HEENT: Head is atraumatic, normocephalic. Pupils are equal, round. Sclerae anicteric. Conjunctivae are clear. Mucous membranes of the mouth are moist. Neck is supple. There is no jugular venous distention. No carotid bruit is heard. LUNGS: Clear to auscultation no wheezes, rales or rhonchi. No chest wall tenderness is noted on palpation or with deep breathing. HEART: Regular rate and rhythm without murmurs, rubs or gallops. S1 and S2 heard. ABDOMEN: Soft, nontender. Bowel sounds are heard. No organomegaly noted. EXTREMITIES: No evidence of peripheral edema and no calf tenderness noted. VASCULAR: Radial and dorsalis pedis pulses palpated, no evidence of clubbing. NEUROLOGIC: Patient is awake, alert and oriented x3. ASSESSMENT Acute on chronic renal failure Fatigue of unknown etiology History of coronary artery disease s/p multiple angioplasties with chronically occluded circumflex artery, maintained on dual anti-platelet therapy Hypertension Dyslipidemia Diabetes mellitus Chronic kidney disease PLAN An acute coronary event has been ruled out. Check for orthostatic changes. Recommend gentle hydration and repeat kidney function in the morning. Discontinue lyrica. Continue aspirin, atorvastatin, amlodipine, imdur, ranexa, effient and propanolol as previously ordered. Nephrology is following and has held all diuretics. Repeat 2D echocardiogram and doppler study to assess cardiac structure and function. Thank you kindly for this consultation. Nurse Practitioner note has been reviewed, I agree with a documented findings and plan of care. Patient was seen and examined. Past Medical History Past Medical History: Coronary Artery Disease (CAD), Chest Pain / Angina, Heart Failure, Diabetes Mellitus, Hyperlipidemia, Hypertension, Myocardial Infarction (OK), Renal Disease Additional Past Medical History / Comment(s): 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, coronary artery disease, diabetes mellitus, hypertension, chronic renal failure, hyperlipidemia, JEN Last Myocardial Infarction Date:: 03/04/14 History of Any Multi-Drug Resistant Organisms: None Reported Past Surgical History: Cholecystectomy, Heart Catheterization, Heart Catheterization With Stent Additional Past Surgical History / Comment(s): shoulder, hemmroid, cardiac stent in june 2014 Past Anesthesia/Blood Transfusion Reactions: No Reported Reaction Additional Past Anesthesia/Blood Transfusion Reaction / Comment(s): Never had a blood transfusion Date of Last Stent Placement:: 05/2014 Past Psychological History: Anxiety Additional Psychological History / Comment(s): Shopping and crowds bother patient. Smoking Status: Former smoker Past Alcohol Use History: None Reported Additional Past Alcohol Use History / Comment(s): pt. quit smoking in 1980 Past Drug Use History: None Reported - Past Family History Father Family Medical History: Cancer Additional Family Medical History / Comment(s): bladder cancer Mother Family Medical History: Diabetes Mellitus Additional Family Medical History / Comment(s): Pancreatic CA Medications and Allergies Home Medications Medication Instructions Recorded Confirmed Type ALPRAZolam [Xanax] 0.25 mg PO BID PRN 03/03/14 05/02/19 History Cetirizine HCl 10 mg PO DAILY 03/03/14 05/02/19 History Nitroglycerin Sl Tabs [Nitrostat] 0.4 mg SUBLINGUAL Q5M PRN 03/03/14 05/02/19 History Prasugrel [Effient] 10 mg PO DAILY 03/03/14 05/02/19 History Rosuvastatin Calcium [Crestor] 40 mg PO DAILY 03/03/14 05/02/19 History amLODIPine [Norvasc] 5 mg PO DAILY 03/03/14 05/02/19 History Ezetimibe [Zetia] 10 mg PO DAILY 05/19/16 05/02/19 History Ferrous Sulfate [Iron (65 MG 325 mg PO DAILY 05/19/16 05/02/19 History Elemental)] Pregabalin [Lyrica] 50 mg PO BID 05/19/16 05/02/19 History Propranolol HCl [Inderal] 60 mg PO DAILY 05/19/16 05/02/19 History Spironolactone-Hctz 25-25Mg 1 tab PO DAILY 05/19/16 05/02/19 History [Aldactazide 25-25 MG] Aspirin EC [Ecotrin Low Dose] 81 mg PO DAILY 05/28/18 05/02/19 History Cholecalciferol [Vitamin D3 (25 1,000 unit PO DAILY 05/28/18 05/02/19 History Mcg = 1000 Iu)] Ergocalciferol (Vitamin D2) 50,000 unit PO Q14D 05/28/18 05/02/19 History [Vitamin D2] Febuxostat [Uloric] 40 mg PO DAILY 05/28/18 05/02/19 History Fluticasone/Salmeterol [Advair 1 puff INHALATION RT-BID PRN 05/28/18 05/02/19 History 100-50 Diskus] Glucagon Emergency Kit 1 mg IM ONCE PRN 05/28/18 05/02/19 History Insulin Aspart (For Pump) [NovoLOG 0.01 unit SQ-PUMP CONTINUOUS 05/28/18 05/02/19 History (For Pump)] Vitamin B Complex 1 cap PO DAILY 05/28/18 05/02/19 History Calcitriol 0.25 mcg PO MOTUWETHFR 07/05/18 05/02/19 History Escitalopram [Lexapro] 20 mg PO DAILY 07/05/18 05/02/19 History Isosorbide Mononitrate ER [Imdur] 60 mg PO BID 07/05/18 05/02/19 History Dulaglutide [Trulicity] 0.75 mg SQ TU 05/02/19 05/02/19 History Pramipexole [Mirapex] 0.5 mg PO BID 05/02/19 05/02/19 History Ranolazine [Ranexa] 500 mg PO Q12H 05/02/19 05/02/19 History Torsemide [Demadex] 20 mg PO DAILY 05/02/19 05/02/19 History Allergies Allergy/AdvReac Type Severity Reaction Status Date / Time No Known Allergies Allergy Verified 05/02/19 15:54 Physical Exam Vitals: Vital Signs Temp Pulse Pulse Resp BP BP Pulse Ox 05/03/19 07:57 97.7 F 64 18 146/55 98 05/03/19 04:00 97.9 F 64 18 168/81 97 05/03/19 03:15 64 18 05/02/19 23:48 97.6 F 57 L 18 104/53 97 05/02/19 23:05 64 18 05/02/19 20:20 97.7 F 58 L 17 159/75 97 05/02/19 18:00 58 L 16 137/82 98 05/02/19 16:04 58 L 16 99 05/02/19 15:23 97.8 F 67 18 132/69 98 Intake and Output 05/02/19 05/03/19 05/03/19 22:59 06:59 14:59 Intake Total 720 Balance 720 Intake: Oral 720 Other: # Voids 1 Weight 106.141 kg Results 05/02/19 15:35 05/02/19 15:35 Cardiac Enzymes 05/02/19 05/02/19 05/02/19 Range/Units 15:35 15:35 20:55 AST 27 (17-59) U/L Troponin I <0.012 <0.012 (0.000-0.034) ng/mL 05/03/19 Range/Units 04:12 AST (17-59) U/L Troponin I <0.012 (0.000-0.034) ng/mL Coagulation 05/02/19 Range/Units 15:35 PT 10.4 (9.0-12.0) sec APTT 24.9 (22.0-30.0) sec Lipids 05/03/19 Range/Units 04:12 Triglycerides 204 H (<150) mg/dL Cholesterol 95 (<200) mg/dL HDL Cholesterol 32 L (40-60) mg/dL CBC 05/02/19 Range/Units 15:35 WBC 5.5 (3.8-10.6) k/uL RBC 3.84 L (4.30-5.90) m/uL Hgb 11.8 L (13.0-17.5) gm/dL Hct 33.1 L (39.0-53.0) % Plt Count 173 (150-450) k/uL Comprehensive Metabolic Panel 05/02/19 Range/Units 15:35 Sodium 138 (137-145) mmol/L Potassium 4.3 (3.5-5.1) mmol/L Chloride 101 (98-107) mmol/L Carbon Dioxide 26 (22-30) mmol/L BUN 47 H (9-20) mg/dL Creatinine 3.04 H (0.66-1.25) mg/dL Glucose 258 H (74-99) mg/dL Calcium 9.3 (8.4-10.2) mg/dL AST 27 (17-59) U/L ALT 25 (21-72) U/L Alkaline Phosphatase 96 (38-126) U/L Total Protein 7.0 (6.3-8.2) g/dL Albumin 3.7 (3.5-5.0) g/dL Current Medications Generic Name Dose Route Start Last Admin Trade Name Freq PRN Reason Stop Dose Admin Allopurinol 200 mg 05/03/19 09:00 Zyloprim PO DAILY [facility] Alprazolam 0.25 mg 05/02/19 18:33 Xanax PO BID PRN Anxiety Amlodipine Besylate 5 mg 05/03/19 09:00 Norvasc PO DAILY [facility] Aspirin 325 mg 05/03/19 09:00 Aspirin PO DAILY [facility] Atorvastatin Calcium 80 mg 05/03/19 09:00 Lipitor PO DAILY [facility] Calcitriol 0.25 mcg 05/03/19 09:00 Rocaltrol PO [id number] [facility] Ezetimibe 10 mg 05/03/19 09:00 Zetia PO DAILY [facility] Escitalopram Oxalate 20 mg 05/03/19 09:00 Lexapro PO DAILY [facility] Sodium Chloride 1,000 mls @ 50 mls/hr 05/02/19 19:00 05/02/19 21:18 Saline 0.9% IV 50 mls/hr .Q20H [facility] Administration Insulin Aspart 0.01 unit 05/02/19 18:45 05/02/19 21:26 Novolog (For Pump) SQ-PUMP Not Given CONTINUOUS [facility] Naloxone HCl 0.2 mg 05/02/19 18:49 Narcan IV Q2M PRN Opioid Reversal Nitroglycerin 0.4 mg 05/02/19 18:22 Nitrostat SUBLINGUAL Q5M PRN Chest Pain Nitroglycerin 1 inch 05/03/19 00:00 05/03/19 05:51 Nitro-Bid Oint TOPICAL Not Given Q6HR [facility] Pramipexole Dihydrochloride 0.5 mg 05/02/19 21:00 05/02/19 21:27 Mirapex PO Not Given BID JOEY Prasugrel 10 mg 05/03/19 09:00 Effient PO DAILY [facility] Propranolol HCl 60 mg 05/03/19 09:00 Inderal PO DAILY JOEY Ranolazine 500 mg 05/02/19 21:00 05/02/19 21:23 Ranexa PO 500 mg Q12HR JOEY Administration Intake and Output 05/02/19 05/03/19 05/03/19 22:59 06:59 14:59 Intake Total 720 Balance 720 Intake: Oral 720 Other: # Voids 1 Weight 106.141 kg 05/02/19 15:35 05/02/19 15:35
--- NOTE | 2019-05-03 12:31 | ECHOF ---
Referral Reason:SOB MEASUREMENTS -------- HEIGHT: 172.7 cm WEIGHT: 106.1 kg BP: 168/81 RVIDd: 3.4 cm (< 3.3) IVSd: 1.2 cm (0.6 - 1.1) LVIDd: 5.3 cm (3.9 - 5.3) LVPWd: 1.6 cm (0.6 - 1.1) IVSs: 1.6 cm LVIDs: 4.0 cm LVPWs: 1.8 cm LA Diam: 3.8 cm (2.7 - 3.8) LAESV Index (A-L): 25.48 ml/m Ao Diam: 3.9 cm (2.0 - 3.7) AV Cusp: 1.4 cm (1.5 - 2.6) LA Diam: 3.5 cm (2.7 - 3.8) MV EXCURSION: 15.965 mm (> 18.000) MV EF SLOPE: 66 mm/s (70 - 150) EPSS: 1.1 cm MV E Juan Luis: 0.72 m/s MV DecT: 303 ms MV A Juan Luis: 1.26 m/s MV E/A Ratio: 0.57 RAP: 5.00 mmHg RVSP: 9.71 mmHg TAPSE: 23.60 mm FINDINGS -------- Sinus rhythm. This was a technically adequate study. The left ventricular size is normal. There is mild concentric left ventricular hypertrophy. Overa ll left ventricular systolic function is mildly impaired with, an EF between 45 - 50 %. Basal infer ior LV wall motion is hypokinetic. Mid inferior LV wall motion is hypokinetic. The right ventricle is normal in size. The left atrial size is normal. Normal LA size by volume 22+/-6 ml/m2. There is mild aortic valve sclerosis. There is no evidence of aortic regurgitation. Mild mitral annular calcification present. Mild mitral regurgitation is present. Mild tricuspid regurgitation present. Right ventricular systolic pressure is normal at < 35 mmHg. There is no evidence of pulmonary hypertension. There is no pulmonic regurgitation present. Aortic Root is mildly diloated and measures 3.9cm. There is no pericardial effusion. CONCLUSIONS -------- 1. Sinus rhythm. 2. This was a technically adequate study. 3. The left ventricular size is normal. 4. Basal inferior LV wall motion is hypokinetic. 5. Mid inferior LV wall motion is hypokinetic. 6. The right ventricle is normal in size. 7. The left atrial size is normal. 8. Normal LA size by volume 22+/-6 ml/m2. 9. There is mild aortic valve sclerosis. 10. Mild mitral annular calcification present. 11. Mild mitral regurgitation is present. 12. Mild tricuspid regurgitation present. 13. Right ventricular systolic pressure is normal at < 35 mmHg. 14. There is no evidence of pulmonary hypertension. 15. There is no pulmonic regurgitation present. 16. Aortic Root is mildly diloated and measures 3.9cm. 17. There is no pericardial effusion. ADOLESCENT COORDINATOR: Cora Rosa RDCS
[2019-05-03] MEDS: ATORVASTATIN 80 MG TAB PO SCH (13:05)
[2019-05-03] MEDS: PROPRANOLOL 20 MG TAB PO SCH (13:05)
[2019-05-03] MEDS: RANOLAZINE 500 MG TAB.ER.12H PO SCH ×2 (13:05→20:43)
[2019-05-03] MEDS: EZETIMIBE 10 MG TAB PO SCH (13:05)
[2019-05-03] MEDS: CALCITRIOL 0.25 MCG CAP PO SCH (13:06)
[2019-05-03] MEDS: ALLOPURINOL 100 MG TAB PO SCH (13:06)
[2019-05-03] MEDS: PRASUGREL 10 MG TAB PO SCH (13:06)
[2019-05-03] MEDS: amLODIPine 5 MG TAB PO SCH (13:06)
[2019-05-03] MEDS: ISOSORBIDE MONONITRATE ER 60 MG TAB.ER.24H PO SCH ×2 (13:06→20:44)
--- NOTE | 2019-05-03 14:38 | P.PN ---
Subjective Progress Note Date: 05/03/19 Principal diagnosis: Fatigue and shortness of breath Patient seen and examined. No acute events overnight. Patient reports extreme fatigue and shortness of breath especially with ambulation to the washroom and back. No chest pain today. No nausea or vomiting. No fever or chills. Objective - Vital Signs Vital signs: Vital Signs Temp 97.8 F 05/03/19 12:00 Pulse 62 05/03/19 12:00 Resp 17 05/03/19 12:00 BP 148/70 05/03/19 12:00 Pulse Ox 97 05/03/19 12:00 Intake & Output 05/02/19 05/03/19 05/03/19 18:59 06:59 18:59 Intake Total 720 Balance 720 Weight 106.141 kg 106.141 kg Intake: Oral 720 Other: # Voids 1 - Exam General: [non toxic], [fine tremors of the hands], [appears at stated age] Derm: [warm], [dry] Head: [atraumatic], [normocephalic], [symmetric] Eyes: [EOMI], [no lid lag], [anicteric sclera] Mouth: [no lip lesion], [mucus membranes moist] Cardiovascular: [S1S2 reg], [no murmur], [positive DP pulse bilateral], Lungs: [CTA bilateral], [no rhonchi, no rales] , [no accessory muscle use] Abdominal: [soft], [ nontender to palpation], [no guarding], [no appreciable organomegaly] Ext: [no gross muscle atrophy], [1+ lower extremity edema], [no contractures] Neuro: [no focal neuro deficits] Psych: [Alert], [oriented], [appropriate affect] - Labs CBC & Chem 7: 05/02/19 15:35 05/02/19 15:35 Labs: Abnormal Lab Results - Last 24 Hours (Table) 05/02/19 05/02/19 05/02/19 Range/Units 15:35 15:35 16:30 RBC 3.84 L (4.30-5.90) m/uL Hgb 11.8 L (13.0-17.5) gm/dL Hct 33.1 L (39.0-53.0) % BUN 47 H (9-20) mg/dL Creatinine 3.04 H (0.66-1.25) mg/dL Glucose 258 H (74-99) mg/dL POC Glucose (mg/dL) (75-99) mg/dL Triglycerides (<150) mg/dL HDL Cholesterol (40-60) mg/dL Urine Protein 1+ H (Negative) Urine Glucose (UA) 3+ H (Negative) Amorphous Sediment Rare H (None) /hpf 05/03/19 05/03/19 Range/Units 04:12 07:15 RBC (4.30-5.90) m/uL Hgb (13.0-17.5) gm/dL Hct (39.0-53.0) % BUN (9-20) mg/dL Creatinine (0.66-1.25) mg/dL Glucose (74-99) mg/dL POC Glucose (mg/dL) 155 H (75-99) mg/dL Triglycerides 204 H (<150) mg/dL HDL Cholesterol 32 L (40-60) mg/dL Urine Protein (Negative) Urine Glucose (UA) (Negative) Amorphous Sediment (None) /hpf Assessment and Plan Assessment: Assessment and Plan Chest pain with history of CAD with stents, rule out acute coronary syndrome Heart failure with reduced ejection fraction EF 45-50% with regional wall motion abnormalities Acute kidney injury on chronic kidney disease Diabetes mellitus with hyperglycemia Lightheadedness, likely orthostasis Fatigue History of gout Hypertension RLS Troponin less than 0.012 3 with EKG showing sinus bradycardia with first-degree AV block, ACS ruled out. Chest x-ray is negative. D-dimer is negative, low concerns for PE. Plans: Patient has extensive cardiac history and history of chest pain is suggestive of angina. Restart aspirin, rosuvastatin, propranolol, and parasugrel. Restart ranolazine. Telemetry monitoring. Follow cardiology consultation. Echocardiogram shows EF 45-50% with regional wall motion abnormalities. Echocardiogram done in May 2018 is EF 55-60% without any wall motion abnormalities. Euvolemic. Plans: Continue beta narcisa. Patient should be started on SILVER inhibitor. Holding torsemide due to CINDY. Strict intake and output take. Daily weights. Will need stress test or cardiac catheterization. Follow cardiology recommendations. Creatinine is 3.04. Patient is aware of chronic kidney disease and follows Dr. Cadena. Slightly above baseline. Plans: Start gentle hydration with normal saline at 50 mL per hour. Avoid nephrotoxins. Hold torsemide at this time. DC hydrochlorothiazide. Continue calcitriol. Follow nephrology recommendations. [id number] glucose 155. Plans: Insulin pump per home dose. Regular Accu- Cheks. Hypoglycemic precautions. Appears orthostatic. Echocardiogram does not show any serious valvular disease. ACS ruled out. Plans: Gentle hydration as above. Obtain orthostats. Telemetry monitoring. Patient is on many sedative medication at home. TSH is within normal limits. Plans: Hold cetirizine, pregabalin. Follow PT and OT recommendations. Plans: Continue Febuxostat. BP 148/70. Plans: Continue amlodipine, Imdur, propranolol. Monitor vitals, adjust medications as necessary. Plans: Continue pramipexole. [Patient found to have new onset CHF with regional wall motion abnormalities. We'll need to discuss with cardiology possibility of stress test versus cardiac catheterization. Discussed with RN, to obtain orthostats. He is pending clinical improvement. Likely DC in 1-2 days.]
[2019-05-03] MEDS: ESCITALOPRAM 10 MG TAB PO SCH (16:04)
[2019-05-03] MEDS: PRAMIPEXOLE 0.5 MG TAB PO SCH ×2 (17:57→20:43)
--- NOTE | 2019-05-03 18:49 | CONS ---
CONSULTATION REASON FOR CONSULT: Renal failure. HISTORY OF PRESENT ILLNESS: Patient is a 68-year-old male who has a history of chronic kidney disease stage IV, secondary to diabetic nephropathy and nephrosclerosis. The patient's baseline creatinine is around 3 mg/dL. He was admitted to the hospital with complaints of increased weakness, shortness of breath. He did have some chest pain. The patient's states that these symptoms are similar to when patient had an PA previously. There is no underlying history of any significant urinary symptoms, fever, chills, nausea, vomiting. No diarrhea. Troponin has been negative. Hemoglobin was 11.8. Blood pressure was not significantly low post admission. Currently patient is being evaluated by Cardiology. PAST MEDICAL HISTORY: Significant for coronary artery disease, chronic kidney disease stage IV, secondary to diabetic nephropathy with nephrotic range proteinuria and negative serologies, hypertension, PA, hyperlipidemia, obstructive sleep apnea. PAST SURGICAL HISTORY: Cardiac catheterization, coronary stent placement, cholecystectomy, shoulder surgery. SOCIAL HISTORY: Patient is a former smoker. No history of drug abuse or alcohol abuse. MEDICATIONS: Medications prior to admission included Xanax, Nitrostat, Effient, Crestor, Norvasc, Zetia, Lyrica, Inderal, Aldactazide, aspirin, vitamin D3, vitamin D2, Uloric, insulin, calcitriol, Lexapro, Imdur, Trulicity, Mirapex, Ranexa, Demadex. ALLERGIES: None. REVIEW OF SYSTEMS: As per HPI. Other systems negative. EXAMINATION: Patient is currently comfortable, awake, not in any acute distress. Blood pressure this morning was 146/55, heart rate of 62 per minute, patient is afebrile. Examination of the heart S1, S2. Examination of the lungs, bilateral breath sounds are heard. Abdomen is soft, nontender, obese. Examination of lower extremities shows no significant edema. LABS SHOW: From yesterday, hemoglobin 11.8, sodium 138, potassium 4.3, serum creatinine was 3.04 yesterday. UA shows 1+ protein, 3+ glucose. There is no blood noted. Troponins were negative. Chest x-ray showed no acute pulmonary changes. ASSESSMENT: 1. Chronic kidney disease stage 4, renal function at baseline. Etiology is diabetic nephropathy with baseline creatinine around 3 as of December 2018 as outpatient. The patient has nephrotic range proteinuria about 4.7 g with negative serologies. 2. Chronic kidney disease mineral bone disorder maintained on Rocaltrol which we will continue. 3. Fatigue with symptoms similar to previous episodes of cardiac ischemia currently being evaluated by Cardiology. Troponins have been negative. Hemoglobin is not significantly low and patient's blood pressure is also not low. 4. Type 2 diabetes. 5. Hyperuricemia, maintained on Zyloprim. PLAN: Continue with saline at 50 mL an hour. Repeat labs in a.m. Continue with the Rocaltrol. Consider stress test to rule out cardiac ischemia. Thank you for this consultation. We will continue to follow the patient with you during his hospitalization. MMODL / IJN: [id number] /
[2019-05-03] MEDS: SODIUM CHLORIDE 0.9% 1,000 ML IV SCH (19:10)
[2019-05-04 06:37] LABS: Calcium 9.1 mg/dL (8.4-10.2); Potassium 4.6 mmol/L (3.5-5.1)
--- NOTE | 2019-05-04 11:05 | P.PN ---
Subjective Progress Note Date: 05/04/19 Principal diagnosis: Fatigue and shortness of breath Patient was seen and examined. No acute events overnight. Patient reports lightheadedness as he stood up from the bed this morning. Orthostats were positive yesterday. He denies any chest pain or palpitations. Continues to complain of fatigue. His is at bedside. Objective - Vital Signs Vital signs: Vital Signs Temp 97.8 F 05/04/19 08:00 Pulse 64 05/04/19 08:00 Resp 17 05/04/19 08:00 BP 144/69 05/04/19 08:00 Pulse Ox 98 05/04/19 08:00 Intake & Output 05/03/19 05/04/19 05/04/19 18:59 06:59 18:59 Intake Total 440 Output Total 400 Balance 40 Weight 106.141 kg Intake: Oral 440 Output: Urine 400 Other: Voiding Method Toilet Toilet # Voids 1 3 - Exam General: [non toxic], [fine tremors of the hands], [appears at stated age] Derm: [warm], [dry] Head: [atraumatic], [normocephalic], [symmetric] Eyes: [EOMI], [no lid lag], [anicteric sclera] Mouth: [no lip lesion], [mucus membranes moist] Cardiovascular: [S1S2 reg], [no murmur], [positive DP pulse bilateral], Lungs: [CTA bilateral], [no rhonchi, no rales] , [no accessory muscle use] Abdominal: [soft], [ nontender to palpation], [no guarding], [no appreciable organomegaly] Ext: [no gross muscle atrophy], [1+ lower extremity edema], [no contractures] Neuro: [no focal neuro deficits] Psych: [Alert], [oriented], [appropriate affect] - Labs CBC & Chem 7: 05/02/19 15:35 05/04/19 05:29 Labs: Abnormal Lab Results - Last 24 Hours (Table) 05/04/19 Range/Units 05:29 BUN 39 H (9-20) mg/dL Creatinine 2.66 H (0.66-1.25) mg/dL Glucose 176 H (74-99) mg/dL Assessment and Plan Assessment: Assessment and Plan Chest pain with history of CAD with stents, rule out acute coronary syndrome Lightheadedness, likely orthostasis Heart failure with reduced ejection fraction EF 45-50% with regional wall motion abnormalities Acute kidney injury on chronic kidney disease Diabetes mellitus with hyperglycemia Fatigue History of gout Hypertension RLS Troponin less than 0.012 3 with EKG showing sinus bradycardia with first-degree AV block, ACS ruled out. Chest x-ray is negative. D-dimer is negative, low concerns for PE. Plans: Patient has extensive cardiac history and history of chest pain is suggestive of angina. Restart aspirin, rosuvastatin, propranolol, and parasugrel. Restart ranolazine. Telemetry monitoring. Discussed with cardiology Dr. Crowe, no plans on stress test, no further workup, follow-up in clinic 2 weeks. Orthostats positive yesterday. Echocardiogram does not show any serious valvular disease. ACS ruled out. Plans: Gentle hydration as above. Obtain orthostats this morning. Telemetry monitoring. Echocardiogram shows EF 45-50% with regional wall motion abnormalities. Echocardiogram done in May 2018 is EF 55-60% without any wall motion abnormalities. Euvolemic. Plans: Continue beta narcisa. Patient should be sta rted on SILVER inhibitor. Holding torsemide due to CINDY. Strict intake and output take. Daily weights. Discussed with cardiology, no further interventions planned, follow-up in clinic 2 weeks. Follow cardiology recommendations. Creatinine is 2.66. Patient is aware of chronic kidney disease and follows Dr. Cadena. Slightly above baseline. Plans: Start gentle hydration with normal saline at 50 mL per hour. Avoid nephrotoxins. Hold torsemide at this time. DC hydrochlorothiazide. Continue calcitriol. Follow nephrology recommendations. [id number] glucose 176. Plans: Insulin pump per home dose. Regular Accu- Cheks. Hypoglycemic precautions. Patient is on many sedative medication at home. TSH is within normal limits. Plans: Hold cetirizine, pregabalin. Follow PT and OT recommendations. Plans: Continue Febuxostat. BP 144/69. Plans: Continue amlodipine, Imdur, propranolol. Monitor vitals, adjust medications as necessary. Plans: Continue pramipexole. [Patient found to have new onset CHF with regional wall motion abnormalities. Discussed with Cardiology Dr. Crowe, no plans for stress or cath while inpatient, follow in 2 weeks. We will continue IVF and check orthostats again tomorrow. Likely DC in 1-2 days when dizziness improved.]
[2019-05-04] MEDS: ISOSORBIDE MONONITRATE ER 60 MG TAB.ER.24H PO SCH ×2 (11:21→20:10)
[2019-05-04] MEDS: ESCITALOPRAM 10 MG TAB PO SCH (11:21)
[2019-05-04] MEDS: ATORVASTATIN 80 MG TAB PO SCH (11:22)
[2019-05-04] MEDS: RANOLAZINE 500 MG TAB.ER.12H PO SCH ×2 (11:22→20:10)
[2019-05-04] MEDS: PROPRANOLOL 20 MG TAB PO SCH (11:22)
[2019-05-04] MEDS: PRAMIPEXOLE 0.5 MG TAB PO SCH ×2 (11:22→20:10)
[2019-05-04] MEDS: PRASUGREL 10 MG TAB PO SCH (11:22)
[2019-05-04] MEDS: CALCITRIOL 0.25 MCG CAP PO SCH (11:22)
[2019-05-04] MEDS: ASPIRIN 81 MG PO SCH (11:22)
[2019-05-04] MEDS: EZETIMIBE 10 MG TAB PO SCH (11:22)
[2019-05-04] MEDS: amLODIPine 5 MG TAB PO SCH (11:22)
[2019-05-04] MEDS: ALLOPURINOL 100 MG TAB PO SCH (11:23)
[2019-05-04] MEDS: SODIUM CHLORIDE 0.9% 1,000 ML IV SCH (11:28)
[2019-05-04] MEDS: Insulin Aspart (For Pump) 100 UNIT/ML VIAL SQ-PUMP SCH (11:28)
[2019-05-04] MEDS ORDERED: INSULIN ASPART (NovoLOG) 100 UNIT/ML VIAL SQ PRN (13:14)
[2019-05-04] MEDS ORDERED: INSULIN PUMP ACTIVE INSULIN 1 EACH MISC MISCELLANE PRN (13:14)
[2019-05-04] MEDS ORDERED: INSPUCOR MISCELLANE PRN (13:14)
[2019-05-04] MEDS ORDERED: INSULIN PUMP TARGET GLUCOSE 1 EACH MISC MISCELLANE PRN (13:14)
[2019-05-04] MEDS ORDERED: INSULIN PUMP BASAL RATES 1 EACH MISC MISCELLANE PRN (13:14)
--- NOTE | 2019-05-04 14:05 | P.PN ---
Subjective This is a pleasant 68-year-old male past medical history significant for coronary artery disease with a chronically occluded left circumflex status post stent placement to the circumflex 2012 and again in 2013, moderate disease in the RCA, mild disease in the LAD s/p stent placement in 2004 and 2013. He also has hypertension dyslipidemia, diabetes mellitus and chronic kidney disease. He follows in the office with Dr. Crowe. He is seen and examined sitting up in bed in no acute distress. He denies chest pain, shortness of breath, dizziness or palpitations. He states he was up walking the halls last night without distress or discomfort. He continues to feel somewhat tired from his baseline. Laboratory data reviewed, sodium 138, potassium 4.6, creatinine improved slightly to 2.66. Blood pressure supine 161/73, sitting 151/79 and standing 121/72. He is maintained on sodium chloride infusion 50 mL per hour, Ranexa 500 mg twice a day, propanolol 60 mg daily, Effient 10 mg daily, Imdur 60 mg twice a day, and Tuesday at 10 mg daily, atorvastatin 80 mg daily, aspirin 81 mg daily and amlodipine 5 mg daily. Echocardiogram obtained reveals mildly impaired LV systolic function with ejection fraction 45-50%, basal inferior and mid inferior wall motion hypokinesia that is consistent with previous echocardiogram. GENERAL: This is a 68-year-old male in no apparent distress at the time of my examination. HEENT: Head is atraumatic, normocephalic. Pupils are equal, round. Sclerae anicteric. Conjunctivae are clear. Mucous membranes of the mouth are moist. Neck is supple. There is no jugular venous distention. No carotid bruit is heard. LUNGS: Clear to auscultation no wheezes, rales or rhonchi. No chest wall tend erness is noted on palpation or with deep breathing. HEART: Regular rate and rhythm without murmurs, rubs or gallops. S1 and S2 heard. EXTREMITIES: No evidence of peripheral edema and no calf tenderness noted. ASSESSMENT Acute on chronic renal failure Fatigue of unknown etiology History of coronary artery disease s/p multiple angioplasties with chronically occluded circumflex artery, maintained on dual anti-platelet therapy Hypertension Dyslipidemia Diabetes mellitus Chronic kidney disease PLAN Continue with gentle hydration. We recommend treating him with maximum medical therapy at this time due to his worsening renal function. Once he is optimized we will pursue stress testing in the outpatient setting. Follow up with Dr. Crowe upon discharge. Nurse Practitioner note has been reviewed, I agree with a documented findings and plan of care. Patient was seen and examined. Objective - Vital Signs Vital signs: Vital Signs Temp 97.8 F 05/04/19 12:00 Pulse 68 05/04/19 12:00 Resp 18 05/04/19 12:00 BP 151/79 05/04/19 12:00 Pulse Ox 98 05/04/19 12:00 Intake & Output 05/03/19 05/04/19 05/04/19 18:59 06:59 18:59 Intake Total 440 Output Total 400 Balance 40 Weight 106.141 kg Intake: Oral 440 Output: Urine 400 Other: Voiding Method Toilet Toilet # Voids 1 3 - Labs CBC & Chem 7: 05/02/19 15:35 05/04/19 05:29 Labs: Abnormal Lab Results - Last 24 Hours (Table) 05/04/19 Range/Units 05:29 BUN 39 H (9-20) mg/dL Creatinine 2.66 H (0.66-1.25) mg/dL Glucose 176 H (74-99) mg/dL
--- NOTE | 2019-05-04 14:20 | PN ---
PROGRESS NOTE Patient is seen for followup for chronic kidney disease. He was admitted with increased weakness with possibility of underlying cardiac ischemia. Patient has been evaluated by Cardiology. Plan is to hold off on stress test or intervention at this time. Troponin has been negative. The patient does have positive orthostatics and the plan is to continue with hydration. No other significant complaints at this time. PHYSICAL EXAMINATION: On examination this morning, blood pressure was 144/69, heart rate 64 per minute. Patient is not . There is no evidence of edema in his lower extremities. LABS: Sodium 138, potassium 4.6, BUN 39, serum creatinine 2.6. ASSESSMENT: 1. 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 2. Acute kidney injury mostly prerenal currently improved. 3. Fatigue, possibly related to some degree of hypovolemia, continue with IV hydration. 4. Type 2 diabetes. 5. Hyperuricemia, maintained on Zyloprim. PLAN: Continue with IV hydration. Follow up with Cardiology as outpatient post discharge. MMODL / IJN: [id number] /
[2019-05-04] MEDS: INSULIN PUMP MEAL BOLUS 1 UNIT MISC MISCELLANE SCH ×2 (17:30→20:10)
[2019-05-04 19:20] VITALS: RESP 18
[2019-05-05 08:42] LABS: Calcium 9.1 mg/dL (8.4-10.2); Potassium 4.3 mmol/L (3.5-5.1)
[2019-05-05] MEDS: ALLOPURINOL 100 MG TAB PO SCH (09:09)
[2019-05-05] MEDS: RANOLAZINE 500 MG TAB.ER.12H PO SCH (09:09)
[2019-05-05] MEDS: ASPIRIN 81 MG PO SCH (09:09)
[2019-05-05] MEDS: amLODIPine 5 MG TAB PO SCH (09:09)
[2019-05-05] MEDS: ATORVASTATIN 80 MG TAB PO SCH (09:10)
[2019-05-05] MEDS: ESCITALOPRAM 10 MG TAB PO SCH (09:10)
[2019-05-05] MEDS: EZETIMIBE 10 MG TAB PO SCH (09:10)
[2019-05-05] MEDS: PRASUGREL 10 MG TAB PO SCH (09:10)
[2019-05-05] MEDS: ISOSORBIDE MONONITRATE ER 60 MG TAB.ER.24H PO SCH (09:10)
[2019-05-05] MEDS: PRAMIPEXOLE 0.5 MG TAB PO SCH (09:10)
[2019-05-05] MEDS: PROPRANOLOL 20 MG TAB PO SCH (09:11)
[2019-05-05 09:29] VITALS: PULSE 67
[2019-05-05] MEDS: INSULIN PUMP MEAL BOLUS 1 UNIT MISC MISCELLANE SCH ×2 (09:35→12:15)
[2019-05-05 12:16] VITALS: BP 132/75; TEMP 98.5
--- NOTE | 2019-05-05 12:22 | P.DS ---
Providers Date of admission: 05/04/19 13:17 Expected date of discharge: 05/05/19 Attending physician: Harpal Richardson MD Consults: 05/02/19 18:23 Consult Physician Urgent Consulting Provider: [facility] Consult Reason/Comments: Anginal equivalent Do you want consulting provider notified?: Yes 05/02/19 18:38 Consult Physician Routine Consulting Provider: Saritha Cadena Consult Reason/Comments: CKD Do you want consulting provider notified?: Yes Primary care physician: Harmeet [facility] Course: 68-year-old male with PMH of CAD post stents, chronic kidney disease, diabetes mellitus, gout, RLS presents to the ED for constellation of symptoms. Patient complains of extreme fatigue that has been ongoing for the past 2 months. This is limited him from doing the activities that he once enjoyed doing, such as bowling. Patient states that he is frequently tired and is now finding it more difficult to do his ADLs, IADLs. Patient also reports lightheadedness, only when standing up from a sitting or laying position. This is been ongoing for the past month. Patient reports chest pain that has been on and off for many years but has been progressively getting worse over the last 2 weeks. Patient states that the chest pain is not related to exertion. Patient states that his chest pain 2 weeks ago was resolved with nitroglycerin. Patient reports 2 episodes of chest pain while in the ED today. Chest pain is described as left-sided, stabbing in nature, 5 out of 10 in severity without radiation. There are no aggravating factors, such as exertion. The ED, vital signs are stable. CBC showed hemoglobin of 11.8. D-dimer is negative. Coagulation panel was negative. CMP showed even 47 and creatinine of 3.04. Troponin was less than 0.012, EKG showing sinus bradycardia with first- degree AV block. BNP was 1310, chest x-ray was negative. Patient is admitted for chest pain, rule out acute coronary syndrome with cardiology on consult. Troponin was less than 0.0123 with EKG showing sinus bradycardia and first- degree AV block. Acute cardiac syndrome was ruled out. D-dimer was negative with low probability of PE. Cardiology was consulted and recommended no further intervention and to hydrate the patient as it appeared that he had acute kidney injury. Orthostats were obtained on admission and were positive. Orthostats were negative at the time of discharge. Patient was hydrated with 50 mL/h. Echocardiogram was obtained which showed EF 45-50% with some regional wall motion abnormalities. Nephrology was consulted for acute kidney injury on chronic kidney disease and followed the patient throughout his hospitalization. Physical therapy evaluated the patient cleared the patient for discharge. Patient was seen and examined. No acute events overnight. Patient denies any dizziness. No chest pain, shortness breath or palpitations. No nausea or vomiting. No fever or chills. Wanting to go home. General: [non toxic], [fine tremors of the hands], [appears at stated age] Derm: [warm], [dry] Head: [atraumatic], [normocephalic], [symmetric] Eyes: [EOMI], [no lid lag], [anicteric sclera] Mouth: [no lip lesion], [mucus membranes moist] Cardiovascular: [S1S2 reg], [no murmur], [positive DP pulse bilateral], Lungs: [CTA bilateral], [no rhonchi, no rales] , [no accessory muscle use] Abdominal: [soft], [ nontender to palpation], [no guarding], [no appreciable organomegaly] Ext: [no gross muscle atrophy], [1+ lower extremity edema], [no contractures] Neuro: [no focal neuro deficits] Psych: [Alert], [oriented], [appropriate affect] Assessment and Plan Chest pain with history of CAD with stents, rule out acute coronary syndrome Lightheadedness, likely orthostasis Heart failure with reduced ejection fraction EF 45-50% with regional wall motion abnormalities Acute kidney injury on chronic kidney disease Diabetes mellitus with hyperglycemia Fatigue History of gout Hypertension RLS Troponin less than 0.012 3 with EKG showing sinus bradycardia with first-degree AV block, ACS ruled out. Chest x-ray is negative. D-dimer is negative, low concerns for PE. Plans: Patient has extensive cardiac history and history of chest pain is suggestive of angina. Restart aspirin, rosuvastatin, propranolol, and parasugrel. Restart ranolazine. Telemetry monitoring. Discussed with cardiology Dr. Crowe, no plans on stress test, no further workup, follow-up in clinic 2 weeks. Orthostats negative today. Echocardiogram does not show any serious valvular di sease. ACS ruled out. Plans: Encourage hydration by mouth. Telemetry monitoring. Echocardiogram shows EF 45-50% with regional wall motion abnormalities. Echocardiogram done in May 2018 is EF 55-60% without any wall motion abnormalities. Euvolemic. Plans: Continue beta narcisa. Patient should be started on SILVER inhibitor. Holding torsemide due to CINDY. Strict intake and output take. Daily weights. Discussed with cardiology, no further interventions planned, follow-up in clinic 2 weeks. Follow cardiology recommendations. Creatinine is 2.28. Patient is aware of chronic kidney disease and follows Dr. Cadena. Slightly above baseline. Plans: DC IVF and encourage hydration by mouth. Avoid nephrotoxins. Hold torsemide at this time. DC hydrochlorothiazi de. Continue calcitriol. Follow nephrology recommendations. [id number] glucose 222. Plans: Insulin pump per home dose. Regular Accu- Cheks. Hypoglycemic precautions. Patient is on many sedative medication at home. TSH is within normal limits. Plans: Hold cetirizine, pregabalin. Follow PT and OT recommendations. Plans: Continue Febuxostat. BP 132/75. Plans: Continue amlodipine, Imdur, propranolol. Monitor vitals, adjust medications as necessary. Plans: Continue pramipexole. [Patient is orthostats negative. Dizziness has resolved today. Patient will need to follow-up with cardiology in the outpatient setting for possible stress test or cardiac catheterization. Will discharge today.] Pertinent Studies: Chest x-ray, echocardiogram Patient Condition at Discharge: Stable Plan - Discharge Summary Discharge Rx Participant: No New Discharge Prescriptions: Continue Prasugrel [Effient] 10 mg PO DAILY Rosuvastatin Calcium [Crestor] 40 mg PO DAILY ALPRAZolam [Xanax] 0.25 mg PO BID PRN PRN Reason: Anxiety Cetirizine HCl 10 mg PO DAILY amLODIPine [Norvasc] 5 mg PO DAILY Nitroglycerin Sl Tabs [Nitrostat] 0.4 mg SUBLINGUAL Q5M PRN PRN Reason: Chest Pain Spironolactone-Hctz 25-25Mg [Aldactazide 25-25 MG] 1 tab PO DAILY Propranolol HCl [Inderal] 60 mg PO DAILY Pregabalin [Lyrica] 50 mg PO BID Ezetimibe [Zetia] 10 mg PO DAILY Ferrous Sulfate [Iron (65 MG Elemental)] 325 mg PO DAILY Fluticasone/Salmeterol [Advair 100-50 Diskus] 1 puff INHALATION RT-BID PRN PRN Reason: Shortness Of Breath Glucagon Emergency Kit 1 mg IM ONCE PRN PRN Reason: Hypoglycemia Febuxostat [Uloric] 40 mg PO DAILY Cholecalciferol [Vitamin D3 (25 Mcg = 1000 Iu)] 1,000 unit PO DAILY Vitamin B Complex 1 cap PO DAILY Ergocalciferol (Vitamin D2) [Vitamin D2] 50,000 unit PO Q14D Insulin Aspart (For Pump) [NovoLOG (For Pump)] 0.01 unit SQ-PUMP CONTINUOUS Aspirin EC [Ecotrin Low Dose] 81 mg PO DAILY Calcitriol 0.25 mcg PO MOTUWETHFR Escitalopram [Lexapro] 20 mg PO DAILY Isosorbide Mononitrate ER [Imdur] 60 mg PO BID Pramipexole [Mirapex] 0.5 mg PO BID Ranolazine [Ranexa] 500 mg PO Q12H Dulaglutide [Trulicity] 0.75 mg SQ TU Discontinued Torsemide [Demadex] 20 mg PO DAILY Discharge Medication List ALPRAZolam [Xanax] 0.25 mg PO BID PRN 03/03/14 [History] Cetirizine HCl 10 mg PO DAILY 03/03/14 [History] Nitroglycerin Sl Tabs [Nitrostat] 0.4 mg SUBLINGUAL Q5M PRN 03/03/14 [History] Prasugrel [Effient] 10 mg PO DAILY 03/03/14 [History] Rosuvastatin Calcium [Crestor] 40 mg PO DAILY 03/03/14 [History] amLODIPine [Norvasc] 5 mg PO DAILY 03/03/14 [History] Ezetimibe [Zetia] 10 mg PO DAILY 05/19/16 [History] Ferrous Sulfate [Iron (65 MG Elemental)] 325 mg PO DAILY 05/19/16 [History] Pregabalin [Lyrica] 50 mg PO BID 05/19/16 [History] Propranolol HCl [Inderal] 60 mg PO DAILY 05/19/16 [History] Spironolactone-Hctz 25-25Mg [Aldactazide 25-25 MG] 1 tab PO DAILY 05/19/16 [History] Aspirin EC [Ecotrin Low Dose] 81 mg PO DAILY 05/28/18 [History] Cholecalciferol [Vitamin D3 (25 Mcg = 1000 Iu)] 1,000 unit PO DAILY 05/28/18 [History] Ergocalciferol (Vitamin D2) [Vitamin D2] 50,000 unit PO Q14D 05/28/18 [History] Febuxostat [Uloric] 40 mg PO DAILY 05/28/18 [History] Fluticasone/Salmeterol [Advair 100-50 Diskus] 1 puff INHALATION RT-BID PRN 05/28/18 [History] Glucagon Emergency Kit 1 mg IM ONCE PRN 05/28/18 [History] Insulin Aspart (For Pump) [NovoLOG (For Pump)] 0.01 unit SQ-PUMP CONTINUOUS 05/28/18 [History] Vitamin B Complex 1 cap PO DAILY 05/28/18 [History] Calcitriol 0.25 mcg PO MOTUWETHFR 07/05/18 [History] Escitalopram [Lexapro] 20 mg PO DAILY 07/05/18 [History] Isosorbide Mononitrate ER [Imdur] 60 mg PO BID 07/05/18 [History] Dulaglutide [Trulicity] 0.75 mg SQ TU 05/02/19 [History] Pramipexole [Mirapex] 0.5 mg PO BID 05/02/19 [History] Ranolazine [Ranexa] 500 mg PO Q12H 05/02/19 [History] Follow up Appointment(s)/Referral(s): Harmeet Garner MD [Primary Care Provider] - 1-2 days Chaparro Crowe MD [STAFF PHYSICIAN] - 1 Week Activity/Diet/Wound Care/Special Instructions: Diet: Diabetic Follow-up PCP within 1-2 days of discharge. Follow-up with cardiology within 1 week of discharge. Take medications as advised. Please avoid torsemide until you see your PCP or mine boss Dr. Cadena. Discharge Disposition: HOME SELF-CARE
--- NOTE | 2019-05-05 13:35 | PN ---
PROGRESS NOTE Patient is seen for followup for chronic kidney disease and acute kidney injury. His renal function has improved with IV fluids. The patient states he is feeling better and he will be most likely discharged today. PHYSICAL EXAMINATION: On examination, blood pressure was 129/68, heart rate 80 per minute. He is afebrile. EXAMINATION OF THE HEART: S1, S2. EXAMINATION OF THE LUNGS: Decreased breath sounds at bases. Abdomen is soft, nontender. Examination of lower extremities shows no evidence of edema. 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 LABS: Labs show sodium 137, potassium 4.3, BUN 34, serum creatinine 2.28. Calcium was 9.1. ASSESSMENT: 1. Acute kidney injury prerenal currently improved with IV fluids. 2. Chronic kidney disease NKF stage 4 secondary to diabetic nephropathy and nephrosclerosis. 3. Weakness and fatigue, mostly secondary to volume depletion. 4. History of coronary artery disease, status post NH and coronary artery stents placement. PLAN: Patient can be discharged from nephrology standpoint. Follow up as outpatient in about 1 to 2 weeks. MMODL / IJN: [id number] /
--- NOTE | 2019-05-09 09:52 | CDI ---
Documentation Clarification Form Date: 05/09/19 From: Alyx Coronado Phone: If questions call Tomasa Ortiz @ [phone], Hours-8:30 am & 5 pm M- F Admit Date: 05/04/2019 1:17:00 PM Patient Name: Phan Luciano Visit Number: [id number] Discharge Date: 05/05/2019 1:09:00 PM ATTENTION: The Clinical Documentation Specialists (CDI) and [facility] Coding Staff appreciate your assistance in clarifying documentation. Please respond to the clarification below the line at the bottom and electronically sign. The CDI & [facility] Coding staff will review the response and follow-up if needed. Please note: Queries are made part of the Legal Health Record. If you have any questions, please contact the author of this message via ITS. Dr. Harpal Castronam The patients principal diagnosis has not been clearly identified and requires clarification. He presented on 05/02 and placed in observation due to chest pain. On 05/04 the patient was converted to inpatient. Per 05/04 PNs: lightheadness, likely orthostasis, hypovolemia, CINDY History/Risk factors: HTN w systolic heart failure & CKD 4, ASHD Lab findings: BUN-39, Cr-2.66, Gluc-176 Radiology findings: 05/02-CXR: no acute cardiopulmonary process Vital Signs: T-97.6, P-64, R-16, BP-148/72, 128/63 (L-supine) Treatment: ASA, Insulin, IV fluids In your professional opinion, can you please clarify the diagnosis, after study, that was the reason for the inpatient admission? Orthostasis (hypotension) Hypovolemia Acute kidney injury Other specified orthostasis MTDD
== END 2019-05-05 13:09 | disposition home or self-care (01) | DRG 312 ==
LOC: EC 14:41 → 1SOBS 18:23 → OBSVTOIN 05-04 13:17
PROVIDERS: ADMIT Family Medicine; ATTEND Family Medicine
DX: I95.1 Orthostatic hypotension (principal); N17.9 Acute kidney failure, unspecified; I50.22 Chronic systolic (congestive) heart failure; I13.0 Hypertensive heart and chronic kidney disease with heart failure and stage 1 through stage 4 chronic kidney disease, or unspecified chronic kidney disease; N18.4 Chronic kidney disease, stage 4 (severe); Q23.1 Congenital insufficiency of aortic valve; E86.1 Hypovolemia; I25.82 Chronic total occlusion of coronary artery; E11.22 Type 2 diabetes mellitus with diabetic chronic kidney disease; E11.65 Type 2 diabetes mellitus with hyperglycemia; I25.119 Atherosclerotic heart disease of native coronary artery with unspecified angina pectoris; E83.9 Disorder of mineral metabolism, unspecified; I44.0 Atrioventricular block, first degree; I34.0 Nonrheumatic mitral (valve) insufficiency; E79.0 Hyperuricemia without signs of inflammatory arthritis and tophaceous disease; E78.5 Hyperlipidemia, unspecified; G47.33 Obstructive sleep apnea (adult) (pediatric); F41.9 Anxiety disorder, unspecified; G25.81 Restless legs syndrome; I25.2 Old myocardial infarction; Z79.82 Long term (current) use of aspirin; Z79.02 Long term (current) use of antithrombotics/antiplatelets; Z79.4 Long term (current) use of insulin; Z96.41 Presence of insulin pump (external) (internal); Z79.51 Long term (current) use of inhaled steroids; Z79.899 Other long term (current) drug therapy; Z77.098 Contact with and (suspected) exposure to other hazardous, chiefly nonmedicinal, chemicals; Z95.5 Presence of coronary angioplasty implant and graft; Z90.49 Acquired absence of other specified parts of digestive tract; Z87.891 Personal history of nicotine dependence; Z80.52 Family history of malignant neoplasm of bladder; Z83.3 Family history of diabetes mellitus; Z80.0 Family history of malignant neoplasm of digestive organs
CPT/HCPCS: 36415; 71046; 80048; 80053; 80061; 81001; 83605; 83735; 83880; 84439; 84443; 84484; 85025; 85379; 85610; 85730; 93005; 93306; 99285

== ENCOUNTER 2020-07-28 23:12 | Observation (INO) | payer MEDICARE ==
[2020-07-28] MEDS ORDERED: ACETAMINOPHEN TAB 325 MG TAB PO PRN (23:32)
--- NOTE | 2020-07-28 23:32 | ED ---
SOB HPI - General Chief Complaint: Shortness of Breath Stated Complaint: SOB,fever Time Seen by Provider: 07/28/20 23:16 Source: EMS, RN notes reviewed, old records reviewed Mode of arrival: EMS Limitations: no limitations - History of Present Illness Initial Comments: This is a 69-year-old male DF for evaluation patient complaining of weakness weakness and not feeling well. Shortness of breath with known coronavirus. Patient has no exposure being his as he does live with his patient states his thinks it around 8 or 9 of positive coronavirus. Her coronavirus type symptoms mainly being weakness and fatigue and shortness of breath. Pat ient without pain no chest pain no nausea vomiting or diarrhea currently MD Complaint: shortness of breath, cough, anxiety -: days(s) (10) Severity: moderate Severity scale (1-10): 4 Quality: aching (Full-body aches) Consistency: constant Improves With: nothing Worsens With: exertion, movement, coughing Context: recent URI Associated Symptoms: fever, cough, sputum production Treatments Prior to Arrival: none - Related Data Home Medications Medication Instructions Recorded Confirmed Cetirizine HCl 10 mg PO DAILY 03/03/14 07/28/20 Nitroglycerin Sl Tabs [Nitrostat] 0.4 mg SUBLINGUAL Q5M PRN 03/03/14 07/28/20 Rosuvastatin Calcium [Crestor] 40 mg PO HS 03/03/14 07/28/20 amLODIPine [Norvasc] 5 mg PO DAILY 03/03/14 07/28/20 Ezetimibe [Zetia] 10 mg PO DAILY 05/19/16 07/28/20 Ferrous Sulfate [Iron (65 MG 325 mg PO DAILY 05/19/16 07/28/20 Elemental)] Spironolactone-Hctz 25-25Mg 1 tab PO DAILY 05/19/16 07/28/20 [Aldactazide 25-25 MG] Aspirin EC [Ecotrin Low Dose] 81 mg PO DAILY 05/28/18 07/28/20 Cholecalciferol [Vitamin D3 (25 1,000 unit PO DAILY 05/28/18 07/28/20 Mcg = 1000 Iu)] Ergocalciferol (Vitamin D2) 50,000 unit PO Q14D 05/28/18 07/28/20 [Vitamin D2] Febuxostat [Uloric] 40 mg PO DAILY 05/28/18 07/28/20 Glucagon Emergency Kit 1 mg IM ONCE PRN 05/28/18 07/28/20 Insulin Aspart (For Pump) [NovoLOG 0.01 unit SQ-PUMP CONTINUOUS 05/28/18 07/28/20 (For Pump)] Vitamin B Complex 1 cap PO DAILY 05/28/18 07/28/20 Escitalopram [Lexapro] 20 mg PO DAILY 07/05/18 07/28/20 Isosorbide Mononitrate ER [Imdur] 60 mg PO BID 07/05/18 07/28/20 calcitrioL [Calcitriol] 0.25 mcg PO Q48H 07/05/18 07/28/20 Dulaglutide [Trulicity] 0.75 mg SQ TU 05/02/19 07/28/20 Pramipexole [Mirapex] 0.5 mg PO DAILY 05/02/19 07/28/20 Ranolazine [Ranexa] 500 mg PO BID 05/02/19 07/28/20 Propranolol [Inderal] 20 mg PO DAILY 07/28/20 07/28/20 Allergies Allergy/AdvReac Type Severity Reaction Status Date / Time atorvastatin [From Lipitor] AdvReac Unknown Verified 07/28/20 23:39 Review of Systems ROS Statement: Those systems with pertinent positive or pertinent negative responses have been documented in the HPI. ROS Other: All systems not noted in ROS Statement are negative. Past Medical History Past Medical History: Coronary Artery Disease (CAD), Chest Pain / Angina, Heart Failure, Diabetes Mellitus, Hyperlipidemia, Hypertension, Myocardial Infarction ([place]), Renal Disease Additional Past Medical History / Comment(s): 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, coronary artery disease, diabetes mellitus, hypertension, chronic renal failure, hyperlipidemia, JEN Last Myocardial Infarction Date:: 03/04/14 History of Any Multi-Drug Resistant Organisms: None Reported Past Surgical History: Cholecystectomy, Heart Catheterization, Heart Catheterization With Stent Additional Past Surgical History / Comment(s): shoulder, hemmroid, cardiac stent in june 2014 Past Anesthesia/Blood Transfusion Reactions: No Reported Reaction Additional Past Anesthesia/Blood Transfusion Reaction / Comment(s): Never had a blood transfusion Date of Last Stent Placement:: 05/2014 Past Psychological History: Anxiety Past Alcohol Use History: None Reported Past Drug Use History: None Reported - Past Family History Father Family Medical History: Cancer Additional Family Medical History / Comment(s): bladder cancer Mother Family Medical History: Diabetes Mellitus Additional Family Medical History / Comment(s): Pancreatic CA General Exam Limitations: no limitations General appearance: alert, in no apparent distress Head exam: Present: atraumatic, normocephalic, normal inspection Eye exam: Present: normal appearance, PERRL, EOMI. Absent: scleral icterus, conjunctival injection, periorbital swelling ENT exam: Present: normal exam, mucous membranes moist Neck exam: Present: normal inspection. Absent: tenderness, meningismus, lymphadenopathy Respiratory exam: Present: normal lung sounds bilaterally. Absent: respiratory distress, wheezes, rales, rhonchi, stridor Cardiovascular Exam: Present: regular rate, normal rhythm, normal heart sounds. Absent: systolic murmur, diastolic murmur, rubs, gallop, clicks GI/Abdominal exam: Present: soft, normal bowel sounds. Absent: distended, tenderness, guarding, rebound, rigid Extremities exam: Present: normal inspection, full ROM, normal capillary refill. Absent: tenderness, pedal edema, joint swelling, calf tenderness Back exam: Present: normal inspection Neurological exam: Present: alert, oriented X3, CN II-XII intact Psychiatric exam: Present: normal affect, normal mood Skin exam: Present: warm, dry, intact, normal color. Absent: rash Course Vital Signs 07/28/20 07/29/20 23:12 00:40 Temperature 99.3 F Pulse Rate 76 67 Respiratory 22 24 Rate Blood Pressure 143/70 109/65 O2 Sat by Pulse 97 99 Oximetry - Reevaluation(s) Reevaluation #1: 07/29/20 01:18 Medical records reviewed Reevaluation #2: 07/29/20 01:18 Patient is informed of results with questions being answered - Consultations Consultation #1: Spoke with Dr. Guillermo for sound who agrees to admit the patient Medical Decision Making - Medical Decision Making 69 male positive coronavirus will admit for treatment and evaluation, supportive care - Lab Data Result diagrams: 07/28/20 23:38 07/28/20 23:38 Lab Results 07/28/20 07/28/20 07/28/20 Range/Units 23:38 23:38 23:38 WBC 3.8 (3.8-10.6) k/uL RBC 4.10 L (4.30-5.90) m/uL Hgb 12.2 L (13.0-17.5) gm/dL Hct 36.2 L (39.0-53.0) % MCV 88.1 (80.0-100.0) fL MCH 29.7 (25.0-35.0) pg MCHC 33.7 (31.0-37.0) g/dL RDW 13.0 (11.5-15.5) % Plt Count 151 (150-450) k/uL MPV 8.4 Neutrophils % 55 % Lymphocytes % 28 % Monocytes % 14 % Eosinophils % 0 % Basophils % 2 % Neutrophils # 2.1 (1.3-7.7) k/uL Lymphocytes # 1.1 (1.0-4.8) k/uL Monocytes # 0.5 (0-1.0) k/uL Eosinophils # 0.0 (0-0.7) k/uL Basophils # 0.1 (0-0.2) k/uL PT 10.6 (9.0-12.0) sec INR 1.0 (<1.2) APTT 26.3 (22.0-30.0) sec Sodium 134 L (137-145) mmol/L Potassium 4.3 (3.5-5.1) mmol/L Chloride 101 (98-107) mmol/L Carbon Dioxide 25 (22-30) mmol/L Anion Gap 8 mmol/L BUN 42 H (9-20) mg/dL Creatinine 2.44 H (0.66-1.25) mg/dL Est GFR (CKD-EPI)AfAm 30 (>60 ml/min/1.73 sqM) Est GFR (CKD-EPI)NonAf 26 (>60 ml/min/1.73 sqM) Glucose 115 H (74-99) mg/dL Plasma Lactic Acid Geo (0.7-2.0) mmol/L Calcium 7.9 L (8.4-10.2) mg/dL Magnesium 1.9 (1.6-2.3) mg/dL Total Bilirubin 0.7 (0.2-1.3) mg/dL AST 26 (17-59) U/L ALT 24 (4-49) U/L Alkaline Phosphatase 90 (38-126) U/L Lactate Dehydrogenase 423 (313-618) U/L C-Reactive Protein 31.8 H (<10.0) mg/L Total Protein 6.7 (6.3-8.2) g/dL Albumin 3.3 L (3.5-5.0) g/dL Coronavirus (PCR) (Not Detectd) 07/28/20 07/28/20 Range/Units 23:38 23:44 WBC (3.8-10.6) k/uL RBC (4.30-5.90) m/uL Hgb (13.0-17.5) gm/dL Hct (39.0-53.0) % MCV (80.0-100.0) fL MCH (25.0-35.0) pg MCHC (31.0-37.0) g/dL RDW (11.5-15.5) % Plt Count (150-450) k/uL MPV Neutrophils % % Lymphocytes % % Monocytes % % Eosinophils % % Basophils % % Neutrophils # (1.3-7.7) k/uL Lymphocytes # (1.0-4.8) k/uL Monocytes # (0-1.0) k/uL Eosinophils # (0-0.7) k/uL Basophils # (0-0.2) k/uL PT (9.0-12.0) sec INR (<1.2) APTT (22.0-30.0) sec Sodium (137-145) mmol/L Potassium (3.5-5.1) mmol/L Chloride (98-107) mmol/L Carbon Dioxide (22-30) mmol/L Anion Gap mmol/L BUN (9-20) mg/dL Creatinine (0.66-1.25) mg/dL Est GFR (CKD-EPI)AfAm (>60 ml/min/1.73 sqM) Est GFR (CKD-EPI)NonAf (>60 ml/min/1.73 sqM) Glucose (74-99) mg/dL Plasma Lactic Acid Geo 1.0 (0.7-2.0) mmol/L Calcium (8.4-10.2) mg/dL Magnesium (1.6-2.3) mg/dL Total Bilirubin (0.2-1.3) mg/dL AST (17-59) U/L ALT (4-49) U/L Alkaline Phosphatase (38-126) U/L Lactate Dehydrogenase (313-618) U/L C-Reactive Protein (<10.0) mg/L Total Protein (6.3-8.2) g/dL Albumin (3.5-5.0) g/dL Coronavirus (PCR) Detected A (Not Detectd) - EKG Data -: EKG Interpreted by Me (EKG is sinus rhythm 71 GA 08/02/2025 QRS 110 QTc 452) - Radiology Data Radiology results: report reviewed (Chest x-rays negative for acute disease), image reviewed Disposition Clinical Impression: Chronic kidney disease, Coronavirus infection Disposition: ADMITTED IP TO THIS HOSP Condition: Fair Is patient prescribed a controlled substance at d/c from ED?: No Referrals: Evan Medrano [Primary Care Provider] - 1-2 days
[2020-07-29 00:05] LABS: Albumin 3.3 g/dL (3.5-5.0); C Reactive Protein 31.8 mg/L (<10.0); Calcium 7.9 mg/dL (8.4-10.2); Magnesium 1.9 mg/dL (1.6-2.3); Potassium 4.3 mmol/L (3.5-5.1); Total Bilirubin 0.7 mg/dL (0.2-1.3); Total Protein 6.7 g/dL (6.3-8.2)
--- NOTE | 2020-07-29 00:10 | XR ---
EXAMINATION TYPE: XR chest 1V portable DATE OF EXAM: 07/29/2020 COMPARISON: May 02, 2019 HISTORY: Lethargy. Pneumonia. TECHNIQUE: FINDINGS: Heart and mediastinum are normal. Lungs are clear of consolidation. There is no heart failu re. There are no hilar masses. The bony thorax is intact. There are chest leads. IMPRESSION: No active cardiopulmonary disease. No sign of bronchopneumonia. No change.
[2020-07-29] MEDS: ALBUTEROL HFA INHALER INHALATION PRN ×2 (00:12→08:33)
[2020-07-29 00:14] LABS: Partial Thromboplastin Time 26.3 sec (22.0-30.0); Prothrombin Time 10.6 sec (9.0-12.0)
[2020-07-29 00:31] LABS: Basophils # (A) 0.1 k/uL (0-0.2); Basophils % (A) 2 %; Eosinophils % (A) 0 %; HCT 36.2 % (39.0-53.0); HGB 12.2 gm/dL (13.0-17.5); Lymphocytes # (A) 1.1 k/uL (1.0-4.8); Lymphocytes % (A) 28 %; MCH 29.7 pg (25.0-35.0); MCHC 33.7 g/dL (31.0-37.0); MCV 88.1 fL (80.0-100.0); Mean Platelet Volume 8.4; Monocytes # (A) 0.5 k/uL (0-1.0); Monocytes % (A) 14 %; Neutrophils # (A) 2.1 k/uL (1.3-7.7); Neutrophils % (A) 55 %; Platelet Count 151 k/uL (150-450); WBC 3.8 k/uL (3.8-10.6)
[2020-07-29] MEDS ORDERED: SODIUM CHLORIDE 0.9% 1,000 ML IV ONE (01:16)
[2020-07-29] MEDS ORDERED: NITROGLYCERIN SL TABS 0.4 MG TAB SUBLINGUAL PRN (02:10)
[2020-07-29] MEDS ORDERED: Insulin Aspart (For Pump) 100 UNIT/ML VIAL SQ-PUMP SCH (02:15)
--- NOTE | 2020-07-29 02:20 | P.HPIM ---
History of Present Illness H&P Date: 07/29/20 Chief Complaint: generalized weakness 69 year old male with CKD, HTN, DM patient comes in with concerns regarding COVID infection, his was symptomatic and diagnosed about 10 days ago, she is doing alright now, he started having symptoms of URI, and progressive fatigue and generalized weakness, along with coughing sore throat, since about 8 days now. today he lost taste sensation , otherwise denies any diarrhea , vomiting, chest pain , however, he was feeling a little shortness of breath with activity today. for which he decided to come in for evaluation , he claims to have been at his baseline status of health otherwise. denies any other medical concerns. in the ED his vital signs and labs were stable, no need for supplemental oxygen at this point, he tested positive for COVID CXR unremarkable Review of Systems Pertinent positives as noted in HPI. All other systems were reviewed and are negative Past Medical History Past Medical History: Coronary Artery Disease (CAD), Chest Pain / Angina, Heart Failure, Diabetes Mellitus, Hyperlipidemia, Hypertension, Myocardial Infarction ([place]), Renal Disease Additional Past Medical History / Comment(s): 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, coronary artery disease, diabetes mellitus, hypertension, chronic renal failure, hyperl ipidemia, JEN Last Myocardial Infarction Date:: 03/04/14 History of Any Multi-Drug Resistant Organisms: None Reported Past Surgical History: Cholecystectomy, Heart Catheterization, Heart Catheterization With Stent Additional Past Surgical History / Comment(s): shoulder, hemmroid, cardiac stent in june 2014 Past Anesthesia/Blood Transfusion Reactions: No Reported Reaction Additional Past Anesthesia/Blood Transfusion Reaction / Comment(s): Never had a blood transfusion Date of Last Stent Placement:: 05/2014 Past Psychological History: Anxiety Past Alcohol Use History: None Reported Past Drug Use History: None Reported - Past Family History Father Family Medical History: Cancer Additional Family Medical History / Comment(s): bladder cancer Mother Family Medical History: Diabetes Mellitus Additional Family Medical History / Comment(s): Pancreatic CA Medications and Allergies Home Medications Medication Instructions Recorded Confirmed Type Cetirizine HCl 10 mg PO DAILY 03/03/14 07/28/20 History Nitroglycerin Sl Tabs [Nitrostat] 0.4 mg SUBLINGUAL Q5M PRN 03/03/14 07/28/20 History Rosuvastatin Calcium [Crestor] 40 mg PO HS 03/03/14 07/28/20 History amLODIPine [Norvasc] 5 mg PO DAILY 03/03/14 07/28/20 History Ezetimibe [Zetia] 10 mg PO DAILY 05/19/16 07/28/20 History Ferrous Sulfate [Iron (65 MG 325 mg PO DAILY 05/19/16 07/28/20 History Elemental)] Spironolactone-Hctz 25-25Mg 1 tab PO DAILY 05/19/16 07/28/20 History [Aldactazide 25-25 MG] Aspirin EC [Ecotrin Low Dose] 81 mg PO DAILY 05/28/18 07/28/20 History Cholecalciferol [Vitamin D3 (25 1,000 unit PO DAILY 05/28/18 07/28/20 History Mcg = 1000 Iu)] Ergocalciferol (Vitamin D2) 50,000 unit PO Q14D 05/28/18 07/28/20 History [Vitamin D2] Febuxostat [Uloric] 40 mg PO DAILY 05/28/18 07/28/20 History Glucagon Emergency Kit 1 mg IM ONCE PRN 05/28/18 07/28/20 History Insulin Aspart (For Pump) [NovoLOG 0.01 unit SQ-PUMP CONTINUOUS 05/28/18 07/28/20 History (For Pump)] Vitamin B Complex 1 cap PO DAILY 05/28/18 07/28/20 History Escitalopram [Lexapro] 20 mg PO DAILY 07/05/18 07/28/20 History Isosorbide Mononitrate ER [Imdur] 60 mg PO BID 07/05/18 07/28/20 History calcitrioL [Calcitriol] 0.25 mcg PO Q48H 07/05/18 07/28/20 History Dulaglutide [Trulicity] 0.75 mg SQ TU 05/02/19 07/28/20 History Pramipexole [Mirapex] 0.5 mg PO DAILY 05/02/19 07/28/20 History Ranolazine [Ranexa] 500 mg PO BID 05/02/19 07/28/20 History Propranolol [Inderal] 20 mg PO DAILY 07/28/20 07/28/20 History Allergies Allergy/AdvReac Type Severity Reaction Status Date / Time atorvastatin [From Lipitor] AdvReac Unknown Verified 07/28/20 23:39 Physical Exam Vitals: Vital Signs Temp Pulse Resp BP Pulse Ox 07/29/20 02:07 67 20 127/75 97 07/29/20 00:40 67 24 109/65 99 07/28/20 23:12 99.3 F 76 22 143/70 97 Intake and Output 07/28/20 07/28/20 07/29/20 14:59 22:59 06:59 Other: Weight 104.326 kg Constitutional: No acute distress, conversant, pleasant Eyes: Anicteric sclerae, moist conjunctiva, Pupils equal round reactive to light ENMT: NC/AT Oropharynx clear, no erythema, or exudates Neck: Supple, FROM, no masses, or JVD No carotid bruits No thyromegaly Lungs: Clear to auscultation Clear to percussion Normal respiratory effort, no accessory muscle use Cardiovascular: Heart regular in rate and rhythm, No murmurs, gallops, or rubs No peripheral edema Abdominal: Soft Nontender, no guarding, rebound or rigidity Abdomen moving with respiration Normoactive bowel sounds No hepatomegaly, No splenomegaly No palpable mass No abdominal wall hernia noted Skin: Normal temperature, tone, texture, turgor No induration No subcutaneous nodules No rash, lesions No ulcers Extremities: No digital cyanosis No clubbing Pedal pulses intact and symmetrical Radial pulses intact and symmetrical No calf tenderness Psychiatric: Alert and oriented to person, place and time Appropriate affect fair judgement Neuro Muscles Strength 5/5 in all 4 extremities Sensation to light touch grossly present throughout Cranial nerves II-XII grossly intact No focal sensory deficits Lymphatics: no palpable cervical or supraclavicular , or inguinal lymph nodes Results CBC & Chem 7: 07/28/20 23:38 07/28/20 23:38 Labs: Abnormal Lab Results - Last 24 Hours (Table) 07/28/20 07/28/20 07/28/20 Range/Units 23:38 23:38 23:44 RBC 4.10 L (4.30-5.90) m/uL Hgb 12.2 L (13.0-17.5) gm/dL Hct 36.2 L (39.0-53.0) % Sodium 134 L (137-145) mmol/L BUN 42 H (9-20) mg/dL Creatinine 2.44 H (0.66-1.25) mg/dL Glucose 115 H (74-99) mg/dL Calcium 7.9 L (8.4-10.2) mg/dL C-Reactive Protein 31.8 H (<10.0) mg/L Albumin 3.3 L (3.5-5.0) g/dL Coronavirus (PCR) Detected A (Not Detectd) Assessment and Plan Assessment: COVID 19 infection exertional dyspnea generalized fatigue and weakness supportive care pharmacologic DVT PPX VIt D, and zince supplemental oxygen as needed monitor vital signs and labs check D dimer and ferritin for prognostic evaluation LDH unremarkable CRP elevated no leukopenia CXR unremarkable chronic conditions CKD DM CAD resume home meds CODE STATUS:full code DVT prophylaxis: lovenox sc Discussed with: Patient, ER Anticipated length of stay < than [address]: home A total of 65 minutes was spent on the care of this complex patient more than 50% of the time was spent in counseling and care coordination.
[2020-07-29 05:50] VITALS: TEMP 98.3
[2020-07-29 07:16] LABS: Glucose,Whole Blood 98 mg/dL (75-99)
[2020-07-29] MEDS ORDERED: INSULIN ASPART (NovoLOG) 100 UNIT/ML VIAL SQ PRN (07:43)
[2020-07-29] MEDS ORDERED: INSPUCOR MISCELLANE PRN (07:43)
[2020-07-29] MEDS ORDERED: INSULIN PUMP BASAL RATES 1 EACH MISC MISCELLANE PRN (07:43)
[2020-07-29] MEDS ORDERED: RANOLAZINE 500 MG TAB.ER.12H PO SCH (09:00)
[2020-07-29] MEDS ORDERED: EZETIMIBE 10 MG TAB PO SCH (09:00)
[2020-07-29] MEDS ORDERED: ERGOCALCIFEROL 50,000 UNIT CAP PO SCH (09:00)
[2020-07-29] MEDS ORDERED: PROPRANOLOL 20 MG TAB PO SCH (09:00)
[2020-07-29] MEDS ORDERED: allopurinoL 100 MG TAB PO SCH (09:00)
[2020-07-29] MEDS ORDERED: PRAMIPEXOLE 0.5 MG TAB PO SCH (09:00)
[2020-07-29] MEDS ORDERED: LORATADINE 10 MG TAB PO SCH (09:00)
[2020-07-29] MEDS ORDERED: CHOLECALCIFEROL 1,000 UNIT TAB PO SCH (09:00)
[2020-07-29] MEDS ORDERED: ISOSORBIDE MONONITRATE ER 60 MG TAB.ER.24H PO SCH (09:00)
[2020-07-29] MEDS ORDERED: ENOXAPARIN 40 MG/0.4 ML SYRINGE SQ SCH (09:00)
[2020-07-29] MEDS ORDERED: ASPIRIN 81 MG PO SCH (09:00)
[2020-07-29] MEDS ORDERED: ZINC SULFATE 220 MG CAP PO SCH (09:00)
[2020-07-29] MEDS ORDERED: NON FORMULARY DRUG (Vitamin B Complex [Vitamin B Complex] 1 EACH Capsule) PO SCH (09:00)
[2020-07-29] MEDS ORDERED: Dulaglutide [Trulicity] 0.75 MG/0.5 ML Pen.Injctr SQ SCH (09:00)
[2020-07-29] MEDS ORDERED: SPIRONOLACTONE-HCTZ 25-25MG 1 EACH TAB PO SCH (09:00)
[2020-07-29] MEDS ORDERED: amLODIPine 5 MG TAB PO SCH (09:00)
[2020-07-29] MEDS ORDERED: ESCITALOPRAM 20 MG TAB PO SCH (09:00)
[2020-07-29 10:14] LABS: HCT 36.8 % (39.0-53.0); HGB 12.7 gm/dL (13.0-17.5); MCH 30.6 pg (25.0-35.0); MCHC 34.6 g/dL (31.0-37.0); MCV 88.5 fL (80.0-100.0); Mean Platelet Volume 7.7; Platelet Count 146 k/uL (150-450); RBC 4.16 m/uL (4.30-5.90); RDW 12.7 % (11.5-15.5); WBC 4.9 k/uL (3.8-10.6)
[2020-07-29 10:32] LABS: ALT 27 U/L (4-49); AST 34 U/L (17-59); African American GFR (CKD) 30 (>60 ml/min/1.73 sqM); Albumin 3.3 g/dL (3.5-5.0); Albumin/Globulin Ratio 0.9; Alkaline Phosphatase 92 U/L (38-126); Anion Gap 7 mmol/L; Blood Urea Nitrogen 44 mg/dL (9-20); C Reactive Protein 44.6 mg/L (<10.0); Calcium 7.9 mg/dL (8.4-10.2); Carbon Dioxide 23 mmol/L (22-30); Chloride 103 mmol/L (98-107); Globulin 3.5 g/dL; Glucose 112 mg/dL (74-99); Non-African American GFR(CKD) 26 (>60 ml/min/1.73 sqM); Potassium 4.7 mmol/L (3.5-5.1); Sodium 133 mmol/L (137-145); Total Bilirubin 0.6 mg/dL (0.2-1.3); Total Protein 6.8 g/dL (6.3-8.2)
[2020-07-29] MEDS ORDERED: SODIUM CHLORIDE 0.9% 500 ML 500 ML IV ONE ×2 (10:48→11:00)
--- NOTE | 2020-07-29 10:52 | P.DS ---
Providers Date of admission: 07/29/20 01:16 Expected date of discharge: 07/29/20 Attending physician: Priya Baig MD Consults: 07/29/20 01:16 Consult Physician Routine Consulting Provider: Yareli Casanova Consult Reason/Comments: covid Do you want consulting provider notified?: Yes Consult Physician Routine Consulting Provider: Saritha Cadena Consult Reason/Comments: arf Do you want consulting provider notified?: Yes Primary care physician: Evan Medrano Hospital Course: Discharge Diagnosis: COVID 19 Generalized weakness and fatigue DM 2 insulin requiring CKD IV CAD Obesity with BMI 34.1 Hospital Course: Patient is a 69-year-old male with a history of diabetes mellitus type 2 on insulin pump, chronic kidney disease stage IV, hypertension, dyslipidemia, and congestive heart failure who presented to the ER with complaints of cough, fatigue, and generalized weakness after tested positive for cocaine approximately 10 days prior to presentation. He also developed symptoms. In the ER here he underwent an extensive evaluation. He was satting 96% on room air. He did have a coated antigen test that was positive. His chest x-ray revealed no acute process. Laboratory analysis showed normal white blood cell count. D-dimer mildly elevated at 0.85. BUN 42 and creatinine 2.44 baseline creatinine of 2.3. CRP was mildly elevated at 31.8. He was admitted given IV fluids and monitored overnight. The next morning he continued to sat 97% on room air. His laboratory analysis remain unchanged. He was having some diarrhea. However he was determined stable for discharge home as he is not requiring supplemental oxygen and his vital signs were stable. I discussed with him and his the need to obtain a pulse ox will attempt to have brought up to bedside. They'll continue to monitor his oxygen levels and return to the hospital care should he be less than 92% on room air. They should encourage intake with Gatorade Zero, water, and other hydrating substances. We'll attempt to arrange a total health visit with either asmita Mendenhall nurse practitioner Evan Horta. Unfortunately he is now out of the window for Bamlanivimab due to being greater than 10 days from symptom onset. Patient seen and examined at bedside. + Diarrhea, + fatigue, No shortness of b reath at rest, still not feeling well. Vital signs reviewed and stable. General: non toxic, no distress, appears at stated age Derm: warm, dry Head: atraumatic, normocephalic, symmetric Eyes: EOMI, no lid lag, anicteric sclera Mouth: no lip lesion, mucus membranes moist Cardiovascular: S1S2 reg, no murmur, positive posterior tibial pulse bilateral, Lungs: decreased bs bilateral, no rhonchi, no rales , no accessory muscle use Abdominal: soft, nontender to palpation, no guarding, no appreciable organomegaly Ext: no gross muscle atrophy, no edema, no contractures Neuro: CN II-XI grossly intact, no focal neuro deficits Psych: Alert, oriented, appropriate affect A total of 25 minutes of time were spent preparing this complex discharge summary . Patient Condition at Discharge: Fair Plan - Discharge Summary New Discharge Prescriptions: No Action Rosuvastatin Calcium [Crestor] 40 mg PO HS Cetirizine HCl 10 mg PO DAILY amLODIPine [Norvasc] 5 mg PO DAILY Nitroglycerin Sl Tabs [Nitrostat] 0.4 mg SUBLINGUAL Q5M PRN PRN Reason: Chest Pain Spironolactone-Hctz 25-25Mg [Aldactazide 25-25 MG] 1 tab PO DAILY Ezetimibe [Zetia] 10 mg PO DAILY Ferrous Sulfate [Iron (65 MG Elemental)] 325 mg PO DAILY Glucagon Emergency Kit 1 mg IM ONCE PRN PRN Reason: Hypoglycemia Febuxostat [Uloric] 40 mg PO DAILY Cholecalciferol [Vitamin D3 (25 Mcg = 1000 Iu)] 1,000 unit PO DAILY Vitamin B Complex 1 cap PO DAILY Ergocalciferol (Vitamin D2) [Vitamin D2] 50,000 unit PO Q14D Insulin Aspart (For Pump) [NovoLOG (For Pump)] 0.01 unit SQ-PUMP CONTINUOUS Aspirin EC [Ecotrin Low Dose] 81 mg PO DAILY calcitrioL [Calcitriol] 0.25 mcg PO Q48H Escitalopram [Lexapro] 20 mg PO DAILY Isosorbide Mononitrate ER [Imdur] 60 mg PO BID Pramipexole [Mirapex] 0.5 mg PO DAILY Ranolazine [Ranexa] 500 mg PO BID Dulaglutide [Trulicity] 0.75 mg SQ TU Propranolol [Inderal] 20 mg PO DAILY Discharge Medication List Cetirizine HCl 10 mg PO DAILY 03/03/14 [History] Nitroglycerin Sl Tabs [Nitrostat] 0.4 mg SUBLINGUAL Q5M PRN 03/03/14 [History] Rosuvastatin Calcium [Crestor] 40 mg PO HS 03/03/14 [History] amLODIPine [Norvasc] 5 mg PO DAILY 03/03/14 [History] Ezetimibe [Zetia] 10 mg PO DAILY 05/19/16 [History] Ferrous Sulfate [Iron (65 MG Elemental)] 325 mg PO DAILY 05/19/16 [History] Spironolactone-Hctz 25-25Mg [Aldactazide 25-25 MG] 1 tab PO DAILY 05/19/16 [History] Aspirin EC [Ecotrin Low Dose] 81 mg PO DAILY 05/28/18 [History] Cholecalciferol [Vitamin D3 (25 Mcg = 1000 Iu)] 1,000 unit PO DAILY 05/28/18 [History] Ergocalciferol (Vitamin D2) [Vitamin D2] 50,000 unit PO Q14D 05/28/18 [History] Febuxostat [Uloric] 40 mg PO DAILY 05/28/18 [History] Glucagon Emergency Kit 1 mg IM ONCE PRN 05/28/18 [History] Insulin Aspart (For Pump) [NovoLOG (For Pump)] 0.01 unit SQ-PUMP CONTINUOUS 05/28/18 [History] Vitamin B Complex 1 cap PO DAILY 05/28/18 [History] Escitalopram [Lexapro] 20 mg PO DAILY 07/05/18 [History] Isosorbide Mononitrate ER [Imdur] 60 mg PO BID 07/05/18 [History] calcitrioL [Calcitriol] 0.25 mcg PO Q48H 07/05/18 [History] Dulaglutide [Trulicity] 0.75 mg SQ TU 05/02/19 [History] Pramipexole [Mirapex] 0.5 mg PO DAILY 05/02/19 [History] Ranolazine [Ranexa] 500 mg PO BID 05/02/19 [History] Propranolol [Inderal] 20 mg PO DAILY 07/28/20 [History] Follow up Appointment(s)/Referral(s): Evan Medrano [Primary Care Provider] - 1-2 days
[2020-07-29 10:54] LABS: Glucose,Whole Blood 102 mg/dL (75-99)
[2020-07-29 11:33] VITALS: BP 127/64; PULSE 73; RESP 17
[2020-07-29] MEDS ORDERED: INSULIN PUMP MEAL BOLUS 1 UNIT MISC MISCELLANE SCH (12:30)
--- NOTE | 2020-07-29 20:17 | CONS ---
CONSULTATION REASON FOR CONSULT: Renal failure. HISTORY OF PRESENT ILLNESS: Patient is a 69-year-old male with history of chronic kidney disease, NKF stage IV, with baseline creatinine about 2.2 to 2.4 mg/dL, secondary to diabetic kidney disease and nephrosclerosis. Patient was admitted to the hospital secondary to diarrhea and weakness. He was found to be COVID-positive. Renal function, however, is fairly stable with creatinine at 2.4 mg/dL, which is close to his baseline. PAST MEDICAL HISTORY: Significant for coronary artery disease, CKD stage IV, CHF, type 2 diabetes, hyperlipidemia, hypertension, PA, exposure to Agent [place], hyperlipidemia and obstructive sleep apnea. PAST SURGICAL HISTORY: Cholecystectomy, cardiac catheterization, coronary stent placement, hemorrhoid surgery, shoulder surgery. SOCIAL HISTORY: Negative for drug abuse or alcohol abuse. MEDICATIONS: Medications prior to admission included Norvasc, Crestor, Nitrostat, Cetirizine, Zetia, iron, Aldactazide, aspirin, vitamin D, Uloric, Lexapro, Imdur, calcitriol, Trulicity, Mirapex, Ranexa, Inderal and insulin. ALLERGIES: ALLERGIES include LIPITOR. REVIEW OF SYSTEMS: As per HPI. Other systems negative. PHYSICAL EXAMINATION: Patient is currently comfortable, awake. He is not in any acute distress. Blood pressure was 127/64, heart rate 73 per minute. He is afebrile. Examination of lower extremities shows no significant edema. The patient is euvolemic. The rest of the exam is not done, as patient is COVID-positive. 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 LABS/IMAGING: Labs show sodium 133, potassium 4.7, BUN 44, creatinine 2.45, hemoglobin 12.7 g/dL. Chest x-ray shows no active pulmonary disease. ASSESSMENT: 1. Chronic kidney disease, stage IV, renal function stable. Etiology diabetic kidney disease and nephrosclerosis. 2. COVID-19 infection with ongoing diarrhea. Chest x-ray shows no infiltrates. 3. Hypertension. Blood pressure was elevated on initial admission, currently improved. Continue current home medications. 4. Chronic kidney disease mineral bone disorder, maintained on calcitriol. 5. Dyslipidemia. 6. Type 2 diabetes. PLAN: Symptomatic treatment. Continue with IV fluids for now. Repeat labs in a.m. Follow up as outpatient for CKD. MMODL / IJN: [id number] /
[2020-07-29] MEDS ORDERED: Rosuvastatin Calcium [Crestor] 40 MG Tablet PO SCH (21:00)
[2020-07-30] MEDS ORDERED: ENOXAPARIN 30 MG/0.3 ML SYRINGE SQ SCH (09:00)
== END 2020-07-29 14:00 | disposition home or self-care (01) ==
LOC: EC 23:12 → 6NMEDSUR 07-29 01:16
PROVIDERS: ADMIT Internal Medicine; ATTEND Internal Medicine
DX: U07.1 COVID-19 (principal); N18.4 Chronic kidney disease, stage 4 (severe); E11.22 Type 2 diabetes mellitus with diabetic chronic kidney disease; I25.10 Atherosclerotic heart disease of native coronary artery without angina pectoris; E66.9 Obesity, unspecified; I13.0 Hypertensive heart and chronic kidney disease with heart failure and stage 1 through stage 4 chronic kidney disease, or unspecified chronic kidney disease; I50.9 Heart failure, unspecified; E78.5 Hyperlipidemia, unspecified; I25.2 Old myocardial infarction; G47.33 Obstructive sleep apnea (adult) (pediatric); F41.9 Anxiety disorder, unspecified; M89.9 Disorder of bone, unspecified; E83.9 Disorder of mineral metabolism, unspecified; Z79.899 Other long term (current) drug therapy; Z79.82 Long term (current) use of aspirin; Z79.4 Long term (current) use of insulin; Z88.8 Allergy status to other drugs, medicaments and biological substances; Z77.098 Contact with and (suspected) exposure to other hazardous, chiefly nonmedicinal, chemicals; Z90.49 Acquired absence of other specified parts of digestive tract; Z95.5 Presence of coronary angioplasty implant and graft; Z98.890 Other specified postprocedural states; Z87.19 Personal history of other diseases of the digestive system; Z96.41 Presence of insulin pump (external) (internal); Z68.34 Body mass index [BMI] 34.0-34.9, adult; Z80.52 Family history of malignant neoplasm of bladder; Z80.0 Family history of malignant neoplasm of digestive organs; Z83.3 Family history of diabetes mellitus
CPT/HCPCS: 96372; 99285; 36415 ×2; 94640; 93005; 85379; 80053 ×2; 82728; 83605; 83615; 83735; 85025; 85027; 85610; 85730; 86140 ×2; 87040; 87635; 71045; G0378; J1650

== ENCOUNTER 2021-01-01 07:42 | Emergency (ER) | payer MEDICARE ==
[2021-01-01 07:50] VITALS: TEMP 97.7
[2021-01-01] MEDS ORDERED: HYDROmorphone 0.5 MG/0.5 ML SYRINGE IVP STA ×2 (08:23→12:38)
[2021-01-01] MEDS ORDERED: KETOROLAC 15 MG/ML 1 ML VIAL IVP STA (08:23)
--- NOTE | 2021-01-01 08:28 | ED ---
General Adult HPI - General Chief complaint: Abdominal Pain Stated complaint: Back pain, kidney pain Time Seen by Provider: 01/01/21 07:45 Source: patient, RN notes reviewed, old records reviewed Mode of arrival: ambulatory Limitations: no limitations - History of Present Illness Initial comments: This is a 70-year-old male who presents emergency Department complaining of right-sided mid back pain. Patient states it started last night and continues t melody. Patient states any kind of movement seems to exacerbate it and when his palpates it it seems to exacerbate it. Patient states she does have some kidney disease as well as heart disease. Patient denies any chest pain difficulty breathing shortness of breath per patient denies any abdominal pain. Patient denies any fever chills or cough per patient denies nausea vomiting diarrhea. Patient states the pain is much worse with movement and if he lies still is much improved. - Related Data Home Medications Medication Instructions Recorded Confirmed Cetirizine HCl 10 mg PO DAILY 03/03/14 01/01/21 Nitroglycerin Sl Tabs [Nitrostat] 0.4 mg SUBLINGUAL Q5M PRN 03/03/14 01/01/21 Rosuvastatin Calcium [Crestor] 40 mg PO HS 03/03/14 01/01/21 Ezetimibe [Zetia] 10 mg PO DAILY 05/19/16 01/01/21 Ferrous Sulfate [Iron (65 MG 325 mg PO DAILY 05/19/16 01/01/21 Elemental)] Spironolactone-Hctz 25-25Mg 1 tab PO HS 05/19/16 01/01/21 [Aldactazide 25-25 MG] Aspirin EC [Ecotrin Low Dose] 81 mg PO HS 05/28/18 01/01/21 Cholecalciferol [Vitamin D3 (25 1,000 unit PO DAILY 05/28/18 01/01/21 Mcg = 1000 Iu)] Ergocalciferol (Vitamin D2) 50,000 unit PO Q14D 05/28/18 01/01/21 [Vitamin D2] Febuxostat [Uloric] 40 mg PO DAILY 05/28/18 01/01/21 Glucagon Emergency Kit 1 mg IM ONCE PRN 05/28/18 01/01/21 Insulin Aspart (For Pump) [NovoLOG 0.01 unit SQ-PUMP CONTINUOUS 05/28/18 01/01/21 (For Pump)] Vitamin B Complex 1 cap PO DAILY 05/28/18 01/01/21 Escitalopram [Lexapro] 10 mg PO DAILY 07/05/18 01/01/21 Isosorbide Mononitrate ER [Imdur] 60 mg PO BID 07/05/18 01/01/21 calcitrioL [Calcitriol] 0.25 mcg PO MOTUWETHFR 07/05/18 01/01/21 Dulaglutide [Trulicity] 0.75 mg SQ TU 05/02/19 01/01/21 Pramipexole [Mirapex] 0.5 mg PO DAILY PRN 05/02/19 01/01/21 Ranolazine [Ranexa] 500 mg PO BID 05/02/19 01/01/21 Propranolol [Inderal] 20 mg PO DAILY 07/28/20 01/01/21 ALPRAZolam [Xanax] 0.25 mg PO BID PRN 01/01/21 01/01/21 Fluticasone/Salmeterol [Advair 1 puff INHALATION RT-BID PRN 01/01/21 01/01/21 100-50 Diskus] Previous Rx's Medication Instructions Recorded Melatonin 5 mg PO HS #15 tablet 07/29/20 Zinc Sulfate [Orazinc] 220 mg PO DAILY #30 cap 07/29/20 Cyclobenzaprine [Flexeril] 10 mg PO TID #20 tab 01/01/21 Allergies Allergy/AdvReac Type Severity Reaction Status Date / Time atorvastatin [From Lipitor] AdvReac Unknown Verified 01/01/21 11:47 Review of Systems ROS Statement: Those systems with pertinent positive or pertinent negative responses have been documented in the HPI. ROS Other: All systems not noted in ROS Statement are negative. Past Medical History Past Medical History: Coronary Artery Disease (CAD), Chest Pain / Angina, Heart Failure, Diabetes Mellitus, Hyperlipidemia, Hypertension, Myocardial Infarction ([place]), Renal Disease Additional Past Medical History / Comment(s): 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, coronary artery disease, diabetes mellitus, hypertension, chronic renal failure, hyp erlipidemia, JEN Last Myocardial Infarction Date:: 03/04/14 History of Any Multi-Drug Resistant Organisms: None Reported Past Surgical History: Cholecystectomy, Heart Catheterization, Heart Catheterization With Stent Additional Past Surgical History / Comment(s): shoulder, hemmroid, cardiac stent in june 2014 Past Anesthesia/Blood Transfusion Reactions: No Reported Reaction Additional Past Anesthesia/Blood Transfusion Reaction / Comment(s): Never had a blood transfusion Date of Last Stent Placement:: 05/2014 Past Psychological History: Anxiety Smoking Status: Never smoker Past Alcohol Use History: None Reported Past Drug Use History: None Reported - Past Family History Father Family Medical History: Cancer Additional Family Medical History / Comment(s): bladder cancer Mother Family Medical History: Diabetes Mellitus Additional Family Medical History / Comment(s): Pancreatic [place] General Exam - General Exam Comments Initial Comments: GENERAL: Patient is well-developed and well-nourished. Patient is nontoxic and well- hydrated and is in moderate distress. ENT: Neck is soft and supple. No significant lymphadenopathy is noted. Oropharynx is clear. Moist mucous membranes. Neck has full range of motion without eliciting any pain. EYES: The sclera were anicteric and conjunctiva were pink and moist. Extraocular movements were intact and pupils were equal round and reactive to light. Eyelids were unremarkable. PULMONARY: Unlabored respirations. Good breath sounds bilaterally. No audible rales rhonchi or wheezing was noted. CARDIOVASCULAR: There is a regular rate and rhythm without any murmurs gallops or rubs. ABDOMEN: Soft and nontender with normal bowel sounds. SKIN: Skin is clear with no lesions or rashes and otherwise unremarkable. NEUROLOGIC: Patient is alert and oriented x3. Cranial nerves II through XII are grossly intact. Motor and sensory are also intact. Normal speech, volume and content. Symmetrical smile. Palpating the right sided mid back in the paraspinous muscles is tender to palpation. There is no redness or rash. MUSCULOSKELETAL: Normal extremities with adequate strength and full range of motion. LYMPHATICS: No significant lymphadenopathy is noted PSYCHIATRIC: Normal psychiatric evaluation. Limitations: no limitations Course Vital Signs 01/01/21 01/01/21 07:44 10:57 Temperature 97.7 F Pulse Rate 69 89 Respiratory 18 16 Rate Blood Pressure 156/81 136/73 O2 Sat by Pulse 97 99 Oximetry Medical Decision Making - Medical Decision Making Patient's CT shows no acute abnormality. Patient's pain seems be reproducible with palpation or movement. I believe the pain is musculoskeletal. I gave the patient some pain medications and he was feeling better. - Lab Data Result diagrams: 01/01/21 08:39 01/01/21 08:39 Lab Results 01/01/21 01/01/21 01/01/21 Range/Units 08:39 08:39 08:39 WBC 6.1 (3.8-10.6) k/uL RBC 4.17 L (4.30-5.90) m/uL Hgb 12.7 L (13.0-17.5) gm/dL Hct 36.8 L (39.0-53.0) % MCV 88.3 (80.0-100.0) fL MCH 30.5 (25.0-35.0) pg MCHC 34.6 (31.0-37.0) g/dL RDW 13.0 (11.5-15.5) % Plt Count 185 (150-450) k/uL MPV 7.7 Neutrophils % 60 % Lymphocytes % 25 % Monocytes % 10 % Eosinophils % 3 % Basophils % 1 % Neutrophils # 3.7 (1.3-7.7) k/uL Lymphocytes # 1.5 (1.0-4.8) k/uL Monocytes # 0.6 (0-1.0) k/uL Eosinophils # 0.2 (0-0.7) k/uL Basophils # 0.1 (0-0.2) k/uL Sodium 135 L (137-145) mmol/L Potassium 4.4 (3.5-5.1) mmol/L Chloride 101 (98-107) mmol/L Carbon Dioxide 26 (22-30) mmol/L Anion Gap 8 mmol/L BUN 46 H (9-20) mg/dL Creatinine 2.76 H (0.66-1.25) mg/dL Est GFR (CKD-EPI)AfAm 26 (>60 ml/min/1.73 sqM) Est GFR (CKD-EPI)NonAf 22 (>60 ml/min/1.73 sqM) Glucose 117 H (74-99) mg/dL Plasma Lactic Acid Geo (0.7-2.0) mmol/L Calcium 8.5 (8.4-10.2) mg/dL Total Bilirubin 0.5 (0.2-1.3) mg/dL AST 27 (17-59) U/L ALT 18 (4-49) U/L Alkaline Phosphatase 98 (38-126) U/L Total Protein 6.8 (6.3-8.2) g/dL Albumin 3.7 (3.5-5.0) g/dL Amylase 90 (30-110) U/L Lipase 160 (23-300) U/L Urine Color Light Yellow Urine Appearance Clear (Clear) Urine pH 6.0 (5.0-8.0) Ur Specific [place] 1.008 (1.001-1.035) Urine Protein 1+ H (Negative) Urine Glucose (UA) Negative (Negative) Urine Ketones Negative (Negative) Urine Blood Negative (Negative) Urine Nitrite Negative (Negative) Urine Bilirubin Negative (Negative) Urine Urobilinogen <2.0 (<2.0) mg/dL Ur Leukocyte Esterase Negative (Negative) Urine RBC 1 (0-5) /hpf Urine WBC <1 (0-5) /hpf 01/01/21 Range/Units 08:39 WBC (3.8-10.6) k/uL RBC (4.30-5.90) m/uL Hgb (13.0-17.5) gm/dL Hct (39.0-53.0) % MCV (80.0-100.0) fL MCH (25.0-35.0) pg MCHC (31.0-37.0) g/dL RDW (11.5-15.5) % Plt Count (150-450) k/uL MPV Neutrophils % % Lymphocytes % % Monocytes % % Eosinophils % % Basophils % % Neutrophils # (1.3-7.7) k/uL Lymphocytes # (1.0-4.8) k/uL Monocytes # (0-1.0) k/uL Eosinophils # (0-0.7) k/uL Basophils # (0-0.2) k/uL Sodium (137-145) mmol/L Potassium (3.5-5.1) mmol/L Chloride (98-107) mmol/L Carbon Dioxide (22-30) mmol/L Anion Gap mmol/L BUN (9-20) mg/dL Creatinine (0.66-1.25) mg/dL Est GFR (CKD-EPI)AfAm (>60 ml/min/1.73 sqM) Est GFR (CKD-EPI)NonAf (>60 ml/min/1.73 sqM) Glucose (74-99) mg/dL Plasma Lactic Acid Geo 0.7 (0.7-2.0) mmol/L Calcium (8.4-10.2) mg/dL Total Bilirubin (0.2-1.3) mg/dL AST (17-59) U/L ALT (4-49) U/L Alkaline Phosphatase (38-126) U/L Total Protein (6.3-8.2) g/dL Albumin (3.5-5.0) g/dL Amylase (30-110) U/L Lipase (23-300) U/L Urine Color Urine Appearance (Clear) Urine pH (5.0-8.0) Ur Specific [place] (1.001-1.035) Urine Protein (Negative) Urine Glucose (UA) (Negative) Urine Ketones (Negative) Urine Blood (Negative) Urine Nitrite (Negative) Urine Bilirubin (Negative) Urine Urobilinogen (<2.0) mg/dL Ur Leukocyte Esterase (Negative) Urine RBC (0-5) /hpf Urine WBC (0-5) /hpf Disposition Clinical Impression: Musculoskeletal back pain Disposition: HOME SELF-CARE Condition: Good Instructions (If sedation given, give patient instructions): Back Pain (ED) Additional Instructions: Patient should try warm moist compresses for no more than 20 minutes at a time. Patient should take Tylenol along with the Flexeril. Prescriptions: Cyclobenzaprine [Flexeril] 10 mg PO TID #20 tab Is patient prescribed a controlled substance at d/c from ED?: No Referrals: None,Stated [Primary Care Provider] - 1-2 days Time of Disposition: 12:35
[2021-01-01 08:52] LABS: Basophils # (A) 0.1 k/uL (0-0.2); Basophils % (A) 1 %; Eosinophils # (A) 0.2 k/uL (0-0.7); Eosinophils % (A) 3 %; HCT 36.8 % (39.0-53.0); HGB 12.7 gm/dL (13.0-17.5); Lymphocytes # (A) 1.5 k/uL (1.0-4.8); Lymphocytes % (A) 25 %; MCH 30.5 pg (25.0-35.0); MCHC 34.6 g/dL (31.0-37.0); MCV 88.3 fL (80.0-100.0); Mean Platelet Volume 7.7; Monocytes # (A) 0.6 k/uL (0-1.0); Monocytes % (A) 10 %; Neutrophils # (A) 3.7 k/uL (1.3-7.7); Neutrophils % (A) 60 %; Platelet Count 185 k/uL (150-450); RBC 4.17 m/uL (4.30-5.90); WBC 6.1 k/uL (3.8-10.6)
[2021-01-01 09:33] LABS: Albumin 3.7 g/dL (3.5-5.0); Calcium 8.5 mg/dL (8.4-10.2); Potassium 4.4 mmol/L (3.5-5.1); Total Bilirubin 0.5 mg/dL (0.2-1.3); Total Protein 6.8 g/dL (6.3-8.2)
[2021-01-01 09:39] LABS: Appearance,Urine Clear (Clear); Bilirubin,Urine Negative (Negative); Blood,Urine Negative (Negative); Color,Urine Light Yellow; Glucose,Urine (UA) Negative (Negative); Ketones,Urine Negative (Negative); Leukocyte Esterase,Urine Negative (Negative); Nitrite,Urine Negative (Negative); Protein,Urine 1+ (Negative); RBC,Urine 1 /hpf (0-5); Specific Gravity,Urine 1.008 (1.001-1.035); Urobilinogen,Urine <2.0 mg/dL (<2.0); WBC,Urine <1 /hpf (0-5)
[2021-01-01] MEDS ORDERED: DIAZEPAM 5 MG/ML 2 ML INJ IVP STA (10:24)
[2021-01-01 10:58] VITALS: RESP 16
--- NOTE | 2021-01-01 11:26 | CT ---
EXAMINATION TYPE: CT abdomen pelvis wo con DATE OF EXAM: 01/01/2021 HISTORY: back and flank pain CT DLP: 1195.4 mGycm. Automated Exposure Control for Dose Reduction was Utilized. TECHNIQUE: CT scan of the abdomen and pelvis is performed without oral or IV contrast. COMPARISON: NONE FINDINGS: Within the limitations of a non-contrast study, the following observations are made. LUNG BASES: Calcification at level of the mitral valve. Coronary artery calcification in the RCA dist ribution. LIVER/GB: Multiple cholecystectomy clips. PANCREAS: No significant abnormality is seen. SPLEEN: No significant abnormality is seen. ADRENALS: No significant abnormality is seen. KIDNEYS: There is 3.7 cm thin-walled cyst anteriorly midpole of the left kidney axial image 61. There is smaller 2.0 cm thin-walled cyst in the right kidney midpole level. No renal calculi or hydronephr osis seen bilaterally. No intraluminal calculus in bladder. Bladder poorly distended with moderate co ncentric wall thickening. BOWEL: Suboptimal evaluation of bowel without enteric contrast. No suspicious small or large bowel di latation.. GENITAL ORGANS: Mildly enlarged prostate consistent with BPH. Correlate clinically. Calcification of the vas deferens bilaterally incidentally noted. LYMPH NODES: No greater than 1cm abdominal or pelvic lymph nodes are appreciated. OSSEOUS STRUCTURES: Mild multilevel anterior and lateral spurring in the spine. OTHER: Moderate to severe calcified plaque of the aorta extends into branch vessels. IMPRESSION: No renal stones or hydronephrosis is seen bilaterally. Moderate bladder wall thickening m ay be product of outlet obstruction related to BPH, correlate clinically. Other etiologies not exclu ded. No acute findings otherwise identified.
[2021-01-01 12:49] VITALS: BP 136/89; PULSE 86
== END 2021-01-01 13:11 | disposition home or self-care (01) ==
LOC: EC 07:42
DX: M54.9 Dorsalgia, unspecified (principal); N23 Unspecified renal colic; F41.9 Anxiety disorder, unspecified; I25.10 Atherosclerotic heart disease of native coronary artery without angina pectoris; E78.5 Hyperlipidemia, unspecified; E11.22 Type 2 diabetes mellitus with diabetic chronic kidney disease; I13.0 Hypertensive heart and chronic kidney disease with heart failure and stage 1 through stage 4 chronic kidney disease, or unspecified chronic kidney disease; I50.9 Heart failure, unspecified; N18.9 Chronic kidney disease, unspecified; G47.33 Obstructive sleep apnea (adult) (pediatric); I25.2 Old myocardial infarction; Z79.51 Long term (current) use of inhaled steroids; Z79.4 Long term (current) use of insulin
CPT/HCPCS: 36415; 80053; 82150; 83605; 83690; 85025; 81001; 74176; 99284; 96374; 96375 ×3; J3360; J1885; J1170

== ENCOUNTER 2021-05-23 13:11 | Observation (INO) | payer MEDICARE ==
[2021-05-23] MEDS ORDERED: ASPIRIN 81 MG PO STA (13:19)
--- NOTE | 2021-05-23 13:44 | XR ---
EXAMINATION TYPE: XR chest 2V DATE OF EXAM: 05/23/2021 COMPARISON: 07/29/2020 HISTORY: Shortness of breath TECHNIQUE: Frontal and lateral views of the chest are obtained. FINDINGS: Scattered senescent parenchymal changes noted. Hyperinflation compatible with COPD. No evidence for infiltrate. No evidence for atelectasis. Heart size is stable. Mediastinal structures are stable and grossly unremarkable. No evidence for hilar prominence. Degenerative changes dorsal spine. IMPRESSION: 1. No evidence for acute pulmonary disease.
[2021-05-23 13:51] LABS: Albumin 3.8 g/dL (3.5-5.0); Calcium 9.3 mg/dL (8.4-10.2); Magnesium 2.1 mg/dL (1.6-2.3); Potassium 4.5 mmol/L (3.5-5.1); Total Bilirubin 0.5 mg/dL (0.2-1.3); Total Protein 7.3 g/dL (6.3-8.2)
[2021-05-23] MEDS ORDERED: ONDANSETRON 4 MG/2 ML VIAL IVP STA (13:52)
[2021-05-23 13:54] LABS: Partial Thromboplastin Time 23.9 sec (22.0-30.0); Prothrombin Time 10.3 sec (9.0-12.0)
[2021-05-23 14:03] LABS: Basophils % (A) 1 %; Eosinophils # (A) 0.1 k/uL (0-0.7); Eosinophils % (A) 2 %; HCT 37.6 % (39.0-53.0); HGB 13.1 gm/dL (13.0-17.5); Lymphocytes # (A) 1.6 k/uL (1.0-4.8); Lymphocytes % (A) 27 %; MCH 31.2 pg (25.0-35.0); MCHC 34.8 g/dL (31.0-37.0); MCV 89.8 fL (80.0-100.0); Monocytes # (A) 0.5 k/uL (0-1.0); Monocytes % (A) 8 %; Neutrophils # (A) 3.6 k/uL (1.3-7.7); Neutrophils % (A) 60 %; Platelet Count 219 k/uL (150-450); RBC 4.18 m/uL (4.30-5.90); RDW 13.1 % (11.5-15.5); WBC 6.1 k/uL (3.8-10.6)
[2021-05-23] MEDS ORDERED: SODIUM CHLORIDE 0.9% 1,000 ML IV STA (15:02)
[2021-05-23] MEDS ORDERED: MORPHINE SULFATE 4 MG/ML SYRINGE IV PRN (15:59)
[2021-05-23] MEDS ORDERED: NALOXONE 0.4 MG/ML 1 ML VIAL IV PRN (15:59)
[2021-05-23] MEDS ORDERED: PRAMIPEXOLE 0.5 MG TAB PO PRN (16:06)
[2021-05-23] MEDS ORDERED: ALPRAZolam 0.25 MG TAB PO PRN (16:06)
--- NOTE | 2021-05-23 16:18 | ED ---
General Adult HPI - General Chief complaint: Chest Pain Stated complaint: Chest pain Time Seen by Provider: 05/23/21 13:17 Source: EMS, RN notes reviewed, old records reviewed Mode of arrival: EMS Limitations: no limitations - History of Present Illness Initial comments: Patient is a 70-year-old male who presents to [facility] Department complaining of difficult substernal chest pain with radiation to the left shoulder. Patient states that the pain began several hours prior to arrival. States it did not radiate anywhere other than to his left shoulder. Denies any shortness of breath with it. States he was somewhat nauseated earlier but this has resolved. Patient received a total of 4 nitroglycerin sublingual tablets prior to arrival which resolved the chest pain. He states is currently gone at this time. He denies any other acute complaints at this time. Patient was not vaccinated for COVID-19. Denies any lightheadedness, numbness, lower extremity swelling. Denies any worsening orthopnea, PND. His no other acute complaint at this time. - Related Data Home Medications Medication Instructions Recorded Confirmed Cetirizine HCl 10 mg PO DAILY 03/03/14 05/23/21 Nitroglycerin Sl Tabs [Nitrostat] 0.4 mg SUBLINGUAL Q5M PRN 03/03/14 05/23/21 Rosuvastatin Calcium [Crestor] 40 mg PO HS 03/03/14 05/23/21 Ezetimibe [Zetia] 10 mg PO DAILY 05/19/16 05/23/21 Ferrous Sulfate [Iron (65 MG 325 mg PO DAILY 05/19/16 05/23/21 Elemental)] Aspirin EC [Ecotrin Low Dose] 81 mg PO DAILY 05/28/18 05/23/21 Cholecalciferol [Vitamin D3 (25 1,000 unit PO DAILY 05/28/18 05/23/21 Mcg = 1000 Iu)] Ergocalciferol (Vitamin D2) 50,000 unit PO Q14D 05/28/18 05/23/21 [Vitamin D2] Febuxostat [Uloric] 40 mg PO DAILY 05/28/18 05/23/21 Glucagon Emergency Kit 1 mg IM ONCE PRN 05/28/18 05/23/21 Insulin Aspart (For Pump) [NovoLOG 0.01 unit SQ-PUMP CONTINUOUS 05/28/18 05/23/21 (For Pump)] Vitamin B Complex 1 cap PO DAILY 05/28/18 05/23/21 Escitalopram [Lexapro] 10 mg PO DAILY 07/05/18 05/23/21 Isosorbide Mononitrate ER [Imdur] 60 mg PO BID 07/05/18 05/23/21 calcitrioL [Calcitriol] 0.25 mcg PO MOTUWETHFR 07/05/18 05/23/21 Pramipexole [Mirapex] 0.5 mg PO DAILY PRN 05/02/19 05/23/21 Ranolazine [Ranexa] 500 mg PO BID 05/02/19 05/23/21 Propranolol [Inderal] 20 mg PO DAILY 07/28/20 05/23/21 ALPRAZolam [Xanax] 0.25 mg PO BID PRN 01/01/21 05/23/21 Dulaglutide [Trulicity] 1.5 mg SQ TU 05/23/21 05/23/21 Allergies Allergy/AdvReac Type Severity Reaction Status Date / Time atorvastatin [From Lipitor] AdvReac Unknown Verified 05/23/21 14:18 Review of Systems ROS Statement: Those systems with pertinent positive or pertinent negative responses have been documented in the HPI. Review of Systems: CONST: Denies fever EYES: Denies blurry vision ENT: Denies nasal congestion C/V: Endorses resolved chest pain RESP: Denies shortness of breath GI: Denies abdominal pain : Denies dysuria SKIN: Denies rash. MSK: Denies joint pain. NEURO: Denies headache ROS Other: All systems not noted in ROS Statement are negative. Past Medical History Past Medical History: Coronary Artery Disease (CAD), Chest Pain / Angina, Heart Failure, Diabetes Mellitus, Hyperlipidemia, Hypertension, Myocardial Infarction ([place]), Renal Disease Additional Past Medical History / Comment(s): 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, coronary artery disease, diabetes mellitus, hypertension, chronic renal failure, hyperlipidemia, JEN Last Myocardial Infarction Date:: 03/04/14 History of Any Multi-Drug Resistant Organisms: None Reported Past Surgical History: Cholecystectomy, Heart Catheterization, Heart Catheterization With Stent Additional Past Surgical History / Comment(s): shoulder, hemmroid, cardiac stent in june 2014 Past Anesthesia/Blood Transfusion Reactions: No Reported Reaction Additional Past Anesthesia/Blood Transfusion Reaction / Comment(s): Never had a blood transfusion Date of Last Stent Placement:: 05/2014 Past Psychological History: Anxiety Smoking Status: Former smoker Past Alcohol Use History: None Reported Past Drug Use History: None Reported - Past Family History Father Family Medical History: Cancer Additional Family Medical History / Comment(s): bladder cancer Mother Family Medical History: Diabetes Mellitus Additional Family Medical History / Comment(s): Pancreatic [place] General Exam - General Exam Comments Initial Comments: General: Appears in no acute distress. HEAD: Normal with no signs of head trauma. EYES: PERRLA, EOMI, conjunctiva normal, no discharge. ENT: Hearing grossly intact, normal oropharynx. RESPIRATORY: Clear breath sounds bilaterally. No wheezes, rales, or rhonchi. C/V: Regular rate and rhythm. S1 and S2 auscultated, no edema, peripheral pulses 2+ and intact throughout ABD: Abd is soft, nontender, nondistended EXT: Normal range of motion, no obvious deformity SKIN: No rashes or lesions observed on exposed skin. NEURO: Alert and oriented x 4. Cranial nerves II-XII intact. No focal sensory or strength deficits. Limitations: no limitations Course Vital Signs 05/23/21 05/23/21 05/23/21 13:14 14:29 15:58 Temperature 98.2 F Pulse Rate 64 61 58 L Pulse Rate [ Right Radial] Respiratory 16 16 18 Rate Blood Pressure 175/89 175/89 152/85 O2 Sat by Pulse 100 99 100 Oximetry 05/23/21 16:19 Temperature 97.5 F L Pulse Rate Pulse Rate [ 56 L Right Radial] Respiratory 18 Rate Blood Pressure O2 Sat by Pulse 100 Oximetry Medical Decision Making - Medical Decision Making Based on the patient's presentation and physical exam, I'm concerned for cardiac etiology for his current chest pain. We will obtain a cardiac workup including EKG, chest x-ray, troponin, basic labs. Patient already received 324 mg of aspirin at home by his . He does not require re-dosing at this time. He currently is asymptomatic. He'll be connected to continuous cardiac monitoring while he is here in the department. Patient was in agreement this plan. Patient's EKG showed first-degree AV block which is old as well as a chronic left bundle branch block. No acute changes. No acute ischemic signs. Patient's laboratory studies are remarkable for an [place] eye on CK D with a creatinine of 3.09 with a history of CK D with creatinines running from 2.5-3. Initial troponin is negative. Covid test is negative. Patient's heart score is moderate at 5. On reevaluation, patient remains asymptomatic. He did feel nauseous at one point a administered Zofran which improved his symptoms. I do believe it is best for him to be admitted to the hospital for trending troponin as well as telemetry monitoring. He was in agreement this plan. I spoke with Dr. Radford who accepted the consult. I spoke with the admitting team under Dr. Benoit who accepted the patient. Patient was therefore admitted to a observation telemetry bed in stable condition. - Lab Data Result diagrams: 05/23/21 13:22 05/23/21 13:22 Lab Results 05/23/21 05/23/21 05/23/21 Range/Units 13:22 13:22 13:22 WBC 6.1 (3.8-10.6) k/uL RBC 4.18 L (4.30-5.90) m/uL Hgb 13.1 (13.0-17.5) gm/dL Hct 37.6 L (39.0-53.0) % MCV 89.8 (80.0-100.0) fL MCH 31.2 (25.0-35.0) pg MCHC 34.8 (31.0-37.0) g/dL RDW 13.1 (11.5-15.5) % Plt Count 219 (150-450) k/uL MPV 8.0 Neutrophils % 60 % Lymphocytes % 27 % Monocytes % 8 % Eosinophils % 2 % Basophils % 1 % Neutrophils # 3.6 (1.3-7.7) k/uL Lymphocytes # 1.6 (1.0-4.8) k/uL Monocytes # 0.5 (0-1.0) k/uL Eosinophils # 0.1 (0-0.7) k/uL Basophils # 0.0 (0-0.2) k/uL PT 10.3 (9.0-12.0) sec INR 1.0 (<1.2) APTT 23.9 (22.0-30.0) sec Sodium 136 L (137-145) mmol/L Potassium 4.5 (3.5-5.1) mmol/L Chloride 102 (98-107) mmol/L Carbon Dioxide 22 (22-30) mmol/L Anion Gap 12 mmol/L BUN 51 H (9-20) mg/dL Creatinine 3.09 H (0.66-1.25) mg/dL Est GFR (CKD-EPI)AfAm 22 (>60 ml/min/1.73 sqM) Est GFR (CKD-EPI)NonAf 19 (>60 ml/min/1.73 sqM) Glucose 199 H (74-99) mg/dL Calcium 9.3 (8.4-10.2) mg/dL Magnesium 2.1 (1.6-2.3) mg/dL Total Bilirubin 0.5 (0.2-1.3) mg/dL AST 32 (17-59) U/L ALT 18 (4-49) U/L Alkaline Phosphatase 110 (38-126) U/L Troponin I (0.000-0.034) ng/mL Total Protein 7.3 (6.3-8.2) g/dL Albumin 3.8 (3.5-5.0) g/dL Coronavirus (PCR) (Not Detectd) 05/23/21 05/23/21 Range/Units 13:22 14:37 WBC (3.8-10.6) k/uL RBC (4.30-5.90) m/uL Hgb (13.0-17.5) gm/dL Hct (39.0-53.0) % MCV (80.0-100.0) fL MCH (25.0-35.0) pg MCHC (31.0-37.0) g/dL RDW (11.5-15.5) % Plt Count (150-450) k/uL MPV Neutrophils % % Lymphocytes % % Monocytes % % Eosinophils % % Basophils % % Neutrophils # (1.3-7.7) k/uL Lymphocytes # (1.0-4.8) k/uL Monocytes # (0-1.0) k/uL Eosinophils # (0-0.7) k/uL Basophils # (0-0.2) k/uL PT (9.0-12.0) sec INR (<1.2) APTT (22.0-30.0) sec Sodium (137-145) mmol/L Potassium (3.5-5.1) mmol/L Chloride (98-107) mmol/L Carbon Dioxide (22-30) mmol/L Anion Gap mmol/L BUN (9-20) mg/dL Creatinine (0.66-1.25) mg/dL Est GFR (CKD-EPI)AfAm (>60 ml/min/1.73 sqM) Est GFR (CKD-EPI)NonAf (>60 ml/min/1.73 sqM) Glucose (74-99) mg/dL Calcium (8.4-10.2) mg/dL Magnesium (1.6-2.3) mg/dL Total Bilirubin (0.2-1.3) mg/dL AST (17-59) U/L ALT (4-49) U/L Alkaline Phosphatase (38-126) U/L Troponin I <0.012 (0.000-0.034) ng/mL Total Protein (6.3-8.2) g/dL Albumin (3.5-5.0) g/dL Coronavirus (PCR) Not Detected (Not Detectd) - EKG Data -: EKG Interpreted by Me EKG Comments: 12-lead Electrocardiogram Interpretation Note EKG was reviewed and interpreted by myself. 12-lead ECG performed at 1313 is interpreted by me as revealing normal sinus rhythm with first-degree AV block. At a rate of 62 beats per minute. Slight left axis deviation. HI interval is 252 ms, QRS ration is 124 ms, QTc is [address] segment or T-wave changes to suggest acute ischemia. He has a chronic history of left bundle- branch block.. Weight progression across the precordium was delayed in the setting of left bundle-branch block.. By my interpretation this EKG is non- diagnostic for acute ischemia. Disposition Clinical Impression: Chest pain of unknown etiology, First degree AV block, CINDY (acute kidney injury), Left bundle branch block, Nausea Disposition: ADMITTED IP TO THIS HOSP Condition: Stable
[2021-05-23] MEDS: HEPARIN SODIUM,PORCINE/PF 5,000 UNIT/0.5 ML SYRINGE SQ SCH ×2 (17:29→20:48)
[2021-05-23 17:30] LABS: Glucose,Whole Blood 131 mg/dL (75-99)
[2021-05-23] MEDS: Insulin Aspart (For Pump) 100 UNIT/ML VIAL SQ-PUMP SCH (17:32)
--- NOTE | 2021-05-23 17:46 | P.HPIM ---
History of Present Illness H&P Date: 05/23/21 Chief Complaint: chest pain Patient is a 70-year-old male patient who has past medical history significant for coronary artery disease status post stent placement, presented with a chief, and a progressive worsening chest pain with exertion and then currently compl aining of chest pain at rest. Patient was seen in emergency department, patient vital signs stable except blood pressure slightly on the higher side. Currently on 3.09, baseline 2.4. Patient has history of seeking the diabetic mellitus type II hypertension hyperlipidemia congestive heart failure. Patient initial troponin and EKG negative, given patient significant cardiac history patient is being admitted to hospital medicine service for cardiac rule out under observation, cardiology will be consulted. Review of Systems 14 point review of system was done in detail and is negative except as above in HPI. Past Medical History Past Medical History: Coronary Artery Disease (CAD), Chest Pain / Angina, Heart Failure, Diabetes Mellitus, Hyperlipidemia, Hypertension, Myocardial Infarction ([place]), Renal Disease Additional Past Medical History / Comment(s): 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, coronary artery disease, diabetes mellitus, hypertension, chronic renal failure, hyperl ipidemia, JEN Last Myocardial Infarction Date:: 03/04/14 History of Any Multi-Drug Resistant Organisms: None Reported Past Surgical History: Cholecystectomy, Heart Catheterization, Heart Catheterization With Stent Additional Past Surgical History / Comment(s): shoulder, hemmroid, cardiac stent in june 2014 Past Anesthesia/Blood Transfusion Reactions: No Reported Reaction Additional Past Anesthesia/Blood Transfusion Reaction / Comment(s): Never had a blood transfusion Date of Last Stent Placement:: 05/2014 Past Psychological History: Anxiety Additional Psychological History / Comment(s): Shopping and crowds bother patient. Smoking Status: Former smoker Past Alcohol Use History: None Reported Additional Past Alcohol Use History / Comment(s): pt. quit smoking in 1980 Past Drug Use History: None Reported - Past Family History Father Family Medical History: Cancer Additional Family Medical History / Comment(s): bladder cancer Mother Family Medical History: Diabetes Mellitus Additional Family Medical History / Comment(s): Pancreatic CA Medications and Allergies Home Medications Medication Instructions Recorded Confirmed Type Cetirizine HCl 10 mg PO DAILY 03/03/14 05/23/21 History Nitroglycerin Sl Tabs [Nitrostat] 0.4 mg SUBLINGUAL Q5M PRN 03/03/14 05/23/21 History Rosuvastatin Calcium [Crestor] 40 mg PO HS 03/03/14 05/23/21 History Ezetimibe [Zetia] 10 mg PO DAILY 05/19/16 05/23/21 History Ferrous Sulfate [Iron (65 MG 325 mg PO DAILY 05/19/16 05/23/21 History Elemental)] Aspirin EC [Ecotrin Low Dose] 81 mg PO DAILY 05/28/18 05/23/21 History Cholecalciferol [Vitamin D3 (25 1,000 unit PO DAILY 05/28/18 05/23/21 History Mcg = 1000 Iu)] Ergocalciferol (Vitamin D2) 50,000 unit PO Q14D 05/28/18 05/23/21 History [Vitamin D2] Febuxostat [Uloric] 40 mg PO DAILY 05/28/18 05/23/21 History Glucagon Emergency Kit 1 mg IM ONCE PRN 05/28/18 05/23/21 History Insulin Aspart (For Pump) [NovoLOG 0.01 unit SQ-PUMP CONTINUOUS 05/28/18 05/23/21 History (For Pump)] Vitamin B Complex 1 cap PO DAILY 05/28/18 05/23/21 History Escitalopram [Lexapro] 10 mg PO DAILY 07/05/18 05/23/21 History Isosorbide Mononitrate ER [Imdur] 60 mg PO BID 07/05/18 05/23/21 History calcitrioL [Calcitriol] 0.25 mcg PO MOTUWETHFR 07/05/18 05/23/21 History Pramipexole [Mirapex] 0.5 mg PO DAILY PRN 05/02/19 05/23/21 History Ranolazine [Ranexa] 500 mg PO BID 05/02/19 05/23/21 History Propranolol [Inderal] 20 mg PO DAILY 07/28/20 05/23/21 History ALPRAZolam [Xanax] 0.25 mg PO BID PRN 01/01/21 05/23/21 History Dulaglutide [Trulicity] 1.5 mg SQ TU 05/23/21 05/23/21 History Allergies Allergy/AdvReac Type Severity Reaction Status Date / Time atorvastatin [From Lipitor] AdvReac Unknown Verified 05/23/21 14:18 Physical Exam Vitals: Vital Signs Temp Pulse Pulse Resp BP Pulse Ox 05/23/21 16:19 97.5 F L 56 L 18 100 05/23/21 15:58 58 L 18 152/85 100 05/23/21 14:29 61 16 175/89 99 05/23/21 13:14 98.2 F 64 16 175/89 100 Intake and Output 05/23/21 05/23/21 05/23/21 06:59 14:59 22:59 Other: Weight 104.326 kg 104.326 kg General: non toxic, no acute distress, alert oriented to time place and person Head: atraumatic, normocephalic, symmetric Eyes: no lid lesion], anicteric sclera Mouth: no lip lesion, mucus membranes moist Cardiovascular: S1S2 reg rate and rhythm, no murmur, no gallop Lungs: Bilateral equal air entry, no wheezing no rhonchi no crackles. Abdominal: soft, nontender to palpation, no guarding, no appreciable organomegaly Ext: no gross muscle atrophy, no edema extremities warm to suppose a positive Neuro: Alert oriented to time place and person, exam grossly nonfocal Psych: Mood and affect appropriate, patient not so certain Skin exam: No rashes no jaundice. Results CBC & Chem 7: 05/23/21 13:22 05/23/21 13:22 Labs: Abnormal Lab Results - Last 24 Hours (Table) 05/23/21 05/23/21 05/23/21 Range/Units 13:22 13:22 17:28 RBC 4.18 L (4.30-5.90) m/uL Hct 37.6 L (39.0-53.0) % Sodium 136 L (137-145) mmol/L BUN 51 H (9-20) mg/dL Creatinine 3.09 H (0.66-1.25) mg/dL Glucose 199 H (74-99) mg/dL POC Glucose (mg/dL) 131 H (75-99) mg/dL Thrombosis Risk Factor Assmnt - Choose All That Apply Any of the Below Risk Factors Present?: No Other Risk Factors: No Other congenital or acquired thrombophilia - If yes, enter type in comment: No Thrombosis Risk Factor Assessment Level: Very Low Risk Assessment and Plan Assessment: Chest pain Significant cardiac history cannot exclude underlying unstable angina, we'll continue to trend troponin will get echocardiogram to determine Consulting cardiology. Continue aspirin, Imdur, Zetia, propranolol Ranexa Crestor Diabetes mellitus type 2 Oral hypoglycemic Continue home insulin regimen Hypertension Continue ontinue Imdur, propranolol Hydralazine when necessary Obesity possible underlying obstructive sleep apnea Will benefit from outpatient sleep study. Anxiety depression Continue home Lexapro Gout Continue home dose of allopurinol DVT prophylaxis: Subcutaneous heparin CODE STATUS: Full code Discharge plan/next site of care: Pending workup hospital course, likely back to home
[2021-05-23] MEDS: ISOSORBIDE MONONITRATE ER 60 MG TAB.ER.24H PO SCH (20:48)
[2021-05-23] MEDS: RANOLAZINE 500 MG TAB.ER.12H PO SCH (20:48)
[2021-05-23] MEDS: NON FORMULARY DRUG (Rosuvastatin Calcium [Crestor] 40 MG Tablet) PO SCH (20:49)
[2021-05-24 07:41] LABS: Glucose,Whole Blood 194 mg/dL (75-99)
[2021-05-24] MEDS: FERROUS SULFATE 325 MG TAB PO SCH (07:43)
[2021-05-24] MEDS: EZETIMIBE 10 MG TAB PO SCH (07:43)
[2021-05-24] MEDS: PROPRANOLOL 20 MG TAB PO SCH (07:43)
[2021-05-24] MEDS: CHOLECALCIFEROL 25 MCG (1000 IU) TABLET PO SCH (07:43)
[2021-05-24] MEDS: ISOSORBIDE MONONITRATE ER 60 MG TAB.ER.24H PO SCH ×2 (07:43→20:17)
[2021-05-24] MEDS: allopurinoL 100 MG TAB PO SCH (07:43)
[2021-05-24] MEDS: RANOLAZINE 500 MG TAB.ER.12H PO SCH ×2 (07:44→20:17)
[2021-05-24] MEDS: ESCITALOPRAM 10 MG TAB PO SCH (07:44)
[2021-05-24] MEDS: ASPIRIN 81 MG PO SCH (07:44)
[2021-05-24] MEDS: HEPARIN SODIUM,PORCINE/PF 5,000 UNIT/0.5 ML SYRINGE SQ SCH ×2 (07:44→17:08)
[2021-05-24] MEDS: LORATADINE 10 MG TAB PO SCH (07:44)
[2021-05-24 09:42] LABS: HCT 44.5 % (39.6-50.0); HGB 14.4 g/dL (13.0-17.0); MCH 29.9 pg (27.0-32.0); MCHC 32.4 g/dL (32.0-37.0); MCV 92.5 fL (80.0-97.0); Mean Platelet Volume 10.6 fL (9.5-12.2); Platelet Count 199 X 10*3/uL (140-440); RBC 4.81 X 10*6/uL (4.40-5.60); RDW 12.5 % (11.5-14.5); WBC 4.98 X 10*3/uL (4.50-10.00)
[2021-05-24 10:41] LABS: Basophils # (M) 0 X 10*3/uL (0.00-0.10); Eosinophils # (M) 0.15 X 10*3/uL (0.04-0.35); Lymphocytes # (M) 1.05 X 10*3/uL (0.90-5.00); Metamyelocytes % 1 % (0-0); Neutrophils # (M) 3.54 X 10*3/uL (2.00-8.90); Neutrophils % (M) 71 %
[2021-05-24 12:09] LABS: Glucose,Whole Blood 164 mg/dL (75-99)
[2021-05-24] MEDS: INSULIN PUMP MEAL BOLUS 1 UNIT MISC MISCELLANE SCH ×3 (12:33→20:17)
[2021-05-24 12:45] LABS: African American GFR (CKD) 24.1 (60.0-200.0); Anion Gap 14.8 mmol/L (4.00-12.00); BUN/Creat Ratio 14.69 Ratio (12.00-20.00); Blood Urea Nitrogen 42.6 mg/dL (9.0-27.0); Calcium 9.3 mg/dL (8.7-10.3); Carbon Dioxide 19.2 mmol/L (21.6-31.8); Non-African American GFR(CKD) 20.8 (60.0-200.0); Potassium 4.9 mmol/L (3.5-5.5)
--- NOTE | 2021-05-24 13:38 | P.CRDCN ---
History of Present Illness Consult date: 05/24/21 Chief complaint: Chest pain History of present illness: This is a 70-year-old gentleman who currently followed by Dr. Castle in the office with a past medical history significant for coronary artery disease and prior stenting of the LAD in 2004 and subsequently stenting of the left circumflex in 2012 as well as diabetes and hypertension and dyslipidemia and chronic kidney disease was admitted to the hospital with a chest discomfort. He was in his usual state of health where he was sitting home and started experiencing discomfort in the middle of the chest. The discomfort was a slightly worse with exertion. He took 2 nitroglycerin without improvement but with a third nitro he felt better. The chest discomfort did not radiate to his arms or neck or shoulders or back. No cystitis symptoms of sweating or dizziness or lightheadedness or any feeling of heart racing or fluttering or presyncope or syncope. Ambulance was called and the patient was brought to the emergency department. Since he has been in the hospital he has been chest pain- free. The EKG showed sinus rhythm without any significant ST or T-wave abnormalities was slightly wide QRS. 3 sets of cardiac enzymes were checked and came in to be unremarkable. His pressure has been slightly elevated during his hospital stay. He underwent a heart catheterization back in 2013 and that the last time when he was found to have chronic total occlusion of the left circu mflex with intermediate disease in the RCA and he was treated medically and has done well for the last 6-7 years. Past Medical History Past Medical History: Coronary Artery Disease (CAD), Chest Pain / Angina, Heart Failure, Diabetes Mellitus, Hyperlipidemia, Hypertension, Myocardial Infarction ([place]), Renal Disease Additional Past Medical History / Comment(s): 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, coronary artery disease, diabetes mellitus, hypertension, chronic renal failure, hyperlipidemia, JEN Last Myocardial Infarction Date:: 03/04/14 History of Any Multi-Drug Resistant Organisms: None Reported Past Surgical History: Cholecystectomy, Heart Catheterization, Heart Cath eterization With Stent Additional Past Surgical History / Comment(s): shoulder, hemmroid, cardiac stent in june 2014 Past Anesthesia/Blood Transfusion Reactions: No Reported Reaction Additional Past Anesthesia/Blood Transfusion Reaction / Comment(s): Never had a blood transfusion Date of Last Stent Placement:: 05/2014 Past Psychological History: Anxiety Smoking Status: Former smoker Past Alcohol Use History: None Reported Past Drug Use History: None Reported - Past Family History Father Family Medical History: Cancer Additional Family Medical History / Comment(s): bladder cancer Mother Family Medical History: Diabetes Mellitus Additional Family Medical History / Comment(s): Pancreatic CA Medications and Allergies Home Medications Medication Instructions Recorded Confirmed Type Cetirizine HCl 10 mg PO DAILY 03/03/14 05/23/21 History Nitroglycerin Sl Tabs [Nitrostat] 0.4 mg SUBLINGUAL Q5M PRN 03/03/14 05/23/21 History Rosuvastatin Calcium [Crestor] 40 mg PO HS 03/03/14 05/23/21 History Ezetimibe [Zetia] 10 mg PO DAILY 05/19/16 05/23/21 History Ferrous Sulfate [Iron (65 MG 325 mg PO DAILY 05/19/16 05/23/21 History Elemental)] Aspirin EC [Ecotrin Low Dose] 81 mg PO DAILY 05/28/18 05/23/21 History Cholecalciferol [Vitamin D3 (25 1,000 unit PO DAILY 05/28/18 05/23/21 History Mcg = 1000 Iu)] Ergocalciferol (Vitamin D2) 50,000 unit PO Q14D 05/28/18 05/23/21 History [Vitamin D2] Febuxostat [Uloric] 40 mg PO DAILY 05/28/18 05/23/21 History Glucagon Emergency Kit 1 mg IM ONCE PRN 05/28/18 05/23/21 History Insulin Aspart (For Pump) [NovoLOG 0.01 unit SQ-PUMP CONTINUOUS 05/28/18 05/23/21 History (For Pump)] Vitamin B Complex 1 cap PO DAILY 05/28/18 05/23/21 History Escitalopram [Lexapro] 10 mg PO DAILY 07/05/18 05/23/21 History Isosorbide Mononitrate ER [Imdur] 60 mg PO BID 07/05/18 05/23/21 History calcitrioL [Calcitriol] 0.25 mcg PO MOTUWETHFR 07/05/18 05/23/21 History Pramipexole [Mirapex] 0.5 mg PO DAILY PRN 05/02/19 05/23/21 History Ranolazine [Ranexa] 500 mg PO BID 05/02/19 05/23/21 History Propranolol [Inderal] 20 mg PO DAILY 07/28/20 05/23/21 History ALPRAZolam [Xanax] 0.25 mg PO BID PRN 01/01/21 05/23/21 History Dulaglutide [Trulicity] 1.5 mg SQ TU 05/23/21 05/23/21 History Allergies Allergy/AdvReac Type Severity Reaction Status Date / Time atorvastatin [From Lipitor] AdvReac Unknown Verified 05/23/21 14:18 Physical Exam Vitals: Vital Signs Temp Pulse Pulse Resp BP BP Pulse Ox 05/24/21 07:00 97.4 F L 71 17 145/74 100 05/24/21 02:00 97.6 F 64 16 162/76 97 05/23/21 20:00 97.7 F 60 17 163/71 99 05/23/21 16:19 97.5 F L 56 L 18 100 05/23/21 15:58 58 L 18 152/85 100 05/23/21 14:29 61 16 175/89 99 Intake and Output 05/23/21 05/24/21 05/24/21 22:59 06:59 14:59 Other: Voiding Method Toilet Toilet Toilet # Voids 2 2 Weight 104.326 kg - Constitutional General appearance: no acute distress - Respiratory Respiratory: bilateral: CTA - Cardiovascular Rhythm: regular Heart sounds: normal: S1, S2 Abnormal Heart Sounds: systolic murmur Results 05/24/21 06:59 05/24/21 06:59 Cardiac Enzymes 05/23/21 05/23/21 05/23/21 Range/Units 13:22 13:22 18:25 AST 32 (17-59) U/L Troponin I <0.012 <0.012 (0.000-0.034) ng/mL 05/23/21 Range/Units 21:30 AST (17-59) U/L Troponin I <0.012 (0.000-0.034) ng/mL Coagulation 05/23/21 Range/Units 13:22 PT 10.3 (9.0-12.0) sec APTT 23.9 (22.0-30.0) sec CBC 05/23/21 05/24/21 Range/Units 13:22 06:59 WBC 6.1 4.98 (3.8-10.6) k/uL RBC 4.18 L 4.81 (4.30-5.90) m/uL Hgb 13.1 14.4 (13.0-17.5) gm/dL Hct 37.6 L 44.5 (39.0-53.0) % Plt Count 219 199 (150-450) k/uL Comprehensive Metabolic Panel 05/23/21 05/24/21 Range/Units 13:22 06:59 Sodium 136 L 134 L (137-145) mmol/L Potassium 4.5 4.9 (3.5-5.1) mmol/L Chloride 102 100 (98-107) mmol/L Carbon Dioxide 22 19.2 L (22-30) mmol/L BUN 51 H 42.6 H (9-20) mg/dL Creatinine 3.09 H 2.9 H (0.66-1.25) mg/dL Glucose 199 H 203 H (74-99) mg/dL Calcium 9.3 9.3 (8.4-10.2) mg/dL AST 32 (17-59) U/L ALT 18 (4-49) U/L Alkaline Phosphatase 110 (38-126) U/L Total Protein 7.3 (6.3-8.2) g/dL Albumin 3.8 (3.5-5.0) g/dL Current Medications Generic Name Dose Route Start Last Admin Trade Name Freq PRN Reason Stop Dose Admin Allopurinol 200 mg 05/24/21 09:00 05/24/21 07:43 Allopurinol 100 Mg Tab PO 200 mg DAILY JOEY Administration Alprazolam 0.25 mg 05/23/21 16:06 Alprazolam 0.25 Mg Tab PO BID PRN Anxiety Aspirin 81 mg 05/24/21 09:00 05/24/21 07:44 Aspirin 81 Mg PO 81 mg DAILY JOEY Administration Calcitriol 0.25 mcg 05/25/21 09:00 Calcitriol 0.25 Mcg Cap PO MOTUWETHFR [facility] Cholecalciferol 25 mcg 05/24/21 09:00 05/24/21 07:43 Cholecalciferol 25 Mcg (1000 Iu) Tablet PO 25 mcg DAILY JOEY Administration Ezetimibe 10 mg 05/24/21 09:00 05/24/21 07:43 Ezetimibe 10 Mg Tab PO 10 mg DAILY JOEY Administration Ergocalciferol 1,250 mcg 05/29/21 09:00 Ergocalciferol 1,250 Mcg (50,000 Iu) Capsule PO Q14D [facility] Escitalopram Oxalate 10 mg 05/24/21 09:00 05/24/21 07:44 Escitalopram 10 Mg Tab PO 10 mg DAILY JOEY Administration Ferrous Sulfate 325 mg 05/24/21 09:00 05/24/21 07:43 Ferrous Sulfate 325 Mg Tab PO 325 mg DAILY JOEY Administration Heparin Sodium (Porcine) 5,000 unit 05/23/21 16:00 05/24/21 07:44 Heparin Sodium,Porcine/Pf 5,000 Unit/0.5 Ml Syringe SQ 5,000 unit Q8HR JOEY Administration Insulin Aspart 0.01 unit 05/23/21 16:15 05/23/21 17:32 Insulin Aspart (For Pump) 100 Unit/Ml Vial SQ-PUMP Not Given CONTINUOUS [facility] Isosorbide Mononitrate 60 mg 05/23/21 21:00 05/24/21 07:43 Isosorbide Mononitrate Er 60 Mg Tab.Er.24h PO 60 mg BID [facility] Administration Lisinopril 2.5 mg 05/25/21 09:00 Lisinopril 2.5 Mg Tab PO DAILY [facility] Loratadine 10 mg 05/24/21 09:00 05/24/21 07:44 Loratadine 10 Mg Tab PO 10 mg DAILY [facility] Administration Miscellaneous Information 0 unit 05/24/21 12:30 05/24/21 12:33 Insulin Pump Meal Bolus 1 Unit Misc MISCELLANE 1.4 unit ACHS [facility] Administration Protocol Morphine Sulfate 4 mg 05/23/21 15:59 Morphine Sulfate 4 Mg/Ml Syringe IV Q4HR PRN Severe Pain Naloxone HCl 0.2 mg 05/23/21 15:59 Naloxone 0.4 Mg/Ml 1 Ml Vial IV Q2M PRN Opioid Reversal Non-Formulary Medication 1.5 mg 05/26/21 09:00 Dulaglutide [Trulicity] SQ TU [facility] Non-Formulary Medication 40 mg 05/23/21 21:00 05/23/21 20:49 Rosuvastatin Calcium [Crestor] PO Not Given HS [facility] Pramipexole Dihydrochloride 0.5 mg 05/23/21 16:06 Pramipexole 0.5 Mg Tab PO DAILY PRN RESTLESS LEGS Propranolol HCl 20 mg 05/24/21 09:00 05/24/21 07:43 Propranolol 20 Mg Tab PO 20 mg DAILY JOEY Administration Ranolazine 500 mg 05/23/21 21:00 05/24/21 07:44 Ranolazine 500 Mg Tab.Er.12h PO 500 mg BID JOEY Administration Intake and Output 05/23/21 05/24/21 05/24/21 22:59 06:59 14:59 Other: Voiding Method Toilet Toilet Toilet # Voids 2 2 Weight 104.326 kg 05/24/21 06:59 05/24/21 06:59 Assessment and Plan Assessment: Assessment #1 chest discomfort concerning for severe underlying coronary artery disease #2 known CAD with prior stenting of the LCx and LAD #3 chronic kidney disease #4 hypertension #5 mild cardiomyopathy #6 multiple comorbid conditions Plan #1 acute coronary event was ruled out #2 his creatinine seems to be at baseline. The pressure continues to be elevated and 0.2 on small dose of SILVER inhibitor #3 continue monitor the kidney function and electrolytes #4 consider myocardial perfusion imaging stress test in the morning #5 consider an echocardiogram was Doppler #6 follow-up with the patient
--- NOTE | 2021-05-24 15:05 | P.PN ---
Subjective Progress Note Date: 05/24/21 Marifer is a 70-year-old gentleman who has past medical history significant for coronary artery disease and prior stenting of the LAD in 2004 and subsequently stenting of the left circumflex in 2012 as well as diabetes and hypertension and dyslipidemia and chronic kidney disease was admitted to the hospital with a chest discomfort. He was in his usual state of health where he was sitting home and started experiencing discomfort in the middle of the chest. The discomfort was a slightly worse with exertion. He took 2 nitroglycerin without improvement but with a third nitro he felt better. The chest discomfort did not radiate to his arms or neck or shoulders or back. No cystitis symptoms of sweating or dizziness or lightheadedness or any feeling of heart racing or fluttering or presyncope or syncope. Ambulance was called and the patient was brought to the emergency department. Since he has been in the hospital he has been chest pain- free. The EKG showed sinus rhythm without any significant ST or T-wave abnormalities was slightly wide QRS. 3 sets of cardiac enzymes were checked and came in to be unremarkable. His pressure has been slightly elevated during his hospital stay. He underwent a heart catheterization back in 2013 and that the last time when he was found to have chronic total occlusion of the left circumflex with intermediate disease in the RCA and he was treated medically and has done well for the last 6-7 years. Cardiology plans for a stress test tomorrow. Patient seen and evaluated at bedside, today patient does not report any worsening of his breathing or report any new significant chest pain. Patient remains in no acute distress. Patient questions and concerns addressed at bedside, proper counseling done. Plan discussed with nursing staff. Objective - Vital Signs Vital signs: Vital Signs Temp 97.4 F L 05/24/21 07:00 Pulse 71 05/24/21 07:00 Resp 17 05/24/21 07:00 BP 145/74 05/24/21 07:00 Pulse Ox 100 05/24/21 07:00 Intake & Output 05/23/21 05/24/21 05/24/21 18:59 06:59 18:59 Weight 104.326 kg Other: Voiding Method Toilet Toilet # Voids 2 1 General: non toxic, no acute distress, alert oriented to time place and person Head: atraumatic, normocephalic, symmetric Eyes: no lid lesion], anicteric sclera Mouth: no lip lesion, mucus membranes moist Cardiovascular: S1S2 reg rate and rhythm, no murmur, no gallop Lungs: Bilateral equal air entry, no wheezing no rhonchi no crackles. Abdominal: soft, nontender to palpation, no guarding, no appreciable organomegaly Ext: no gross muscle atrophy, no edema extremities warm to suppose a positive Neuro: Alert oriented to time place and person, exam grossly nonfocal Psych: Mood and affect appropriate, patient not so certain Skin exam: No rashes no jaundice.. - Labs CBC & Chem 7: 05/24/21 06:59 05/24/21 06:59 Labs: Abnormal Lab Results - Last 24 Hours (Table) 05/23/21 05/24/21 05/24/21 Range/Units 17:28 06:59 06:59 Metamyelocytes % 1 H (0-0) % Sodium 134 L (135-145) mmol/L Carbon Dioxide 19.2 L (21.6-31.8) mmol/L Anion Gap 14.80 H (4.00-12.00) mmol/L BUN 42.6 H (9.0-27.0) mg/dL Creatinine 2.9 H (0.6-1.5) mg/dL Est GFR (CKD-EPI)AfAm 24.1 L (60.0-200.0) Est GFR (CKD-EPI)NonAf 20.8 L (60.0-200.0) Glucose 203 H (70-110) mg/dL POC Glucose (mg/dL) 131 H (75-99) mg/dL 05/24/21 05/24/21 Range/Units 07:39 12:06 Metamyelocytes % (0-0) % Sodium (135-145) mmol/L Carbon Dioxide (21.6-31.8) mmol/L Anion Gap (4.00-12.00) mmol/L BUN (9.0-27.0) mg/dL Creatinine (0.6-1.5) mg/dL Est GFR (CKD-EPI)AfAm (60.0-200.0) Est GFR (CKD-EPI)NonAf (60.0-200.0) Glucose (70-110) mg/dL POC Glucose (mg/dL) 194 H 164 H (75-99) mg/dL Assessment and Plan Assessment: Chest pain Significant cardiac history cannot exclude underlying unstable angina, we'll continue to trend troponin will get echocardiogram to determine Continue aspirin, Imdur, Zetia, propranolol Ranexa Crestor Cardiology plans for a stress test tomorrow. Diabetes mellitus type 2 Hold Oral hypoglycemic Continue home insulin regimen Hypertension Continue ontinue Imdur, propranolol Hydralazine when necessary Obesity possible underlying obstructive sleep apnea Will benefit from outpatient sleep study. Anxiety and depression Continue home Lexapro Gout Continue home dose of allopurinol DVT prophylaxis: Subcutaneous heparin CODE STATUS: Full code Discharge plan/next site of care: Pending workup hospital course, likely back to home
[2021-05-24 17:23] LABS: Glucose,Whole Blood 146 mg/dL (75-99)
[2021-05-24] MEDS: Insulin Aspart (For Pump) 100 UNIT/ML VIAL SQ-PUMP SCH (17:47)
[2021-05-24] MEDS: NON FORMULARY DRUG (Rosuvastatin Calcium [Crestor] 40 MG Tablet) PO SCH (20:20)
[2021-05-24 20:29] LABS: Glucose,Whole Blood 185 mg/dL (75-99)
[2021-05-24 22:29] LABS: Glucose,Whole Blood 79 mg/dL (75-99)
[2021-05-25] MEDS: HEPARIN SODIUM,PORCINE/PF 5,000 UNIT/0.5 ML SYRINGE SQ SCH ×4 (00:54→23:41)
[2021-05-25] MEDS ORDERED: CAFFEINE CITRATE 60 MG/3 ML VIAL IV PRN (07:00)
[2021-05-25] MEDS ORDERED: REGADENOSON 0.4 MG/5 ML SYRINGE IV PRN (07:00)
[2021-05-25] MEDS ORDERED: AMINOPHYLLINE 500 MG/20 ML VIAL IV PRN (07:00)
[2021-05-25 07:22] LABS: Glucose,Whole Blood 263 mg/dL (75-99)
[2021-05-25] MEDS: FERROUS SULFATE 325 MG TAB PO SCH (07:23)
[2021-05-25] MEDS: CHOLECALCIFEROL 25 MCG (1000 IU) TABLET PO SCH (07:23)
[2021-05-25] MEDS: EZETIMIBE 10 MG TAB PO SCH (07:24)
[2021-05-25] MEDS: ASPIRIN 81 MG PO SCH (07:24)
[2021-05-25] MEDS: ESCITALOPRAM 10 MG TAB PO SCH (07:24)
[2021-05-25] MEDS: ISOSORBIDE MONONITRATE ER 60 MG TAB.ER.24H PO SCH ×2 (07:24→20:06)
[2021-05-25] MEDS: RANOLAZINE 500 MG TAB.ER.12H PO SCH ×2 (07:24→20:06)
[2021-05-25] MEDS: allopurinoL 100 MG TAB PO SCH (07:24)
[2021-05-25] MEDS: LORATADINE 10 MG TAB PO SCH (07:24)
[2021-05-25] MEDS: INSULIN PUMP MEAL BOLUS 1 UNIT MISC MISCELLANE SCH ×4 (07:25→20:07)
--- NOTE | 2021-05-25 09:27 | P.NPCON ---
History of Present Illness - Reason for Consult acute renal failure, chronic renal failure - History of Present Illness Reason for consultation: Acute kidney injury on chronic kidney disease History of present illness: Patient is a 70-year-old male seen in renal consultation for acute kidney injury on chronic kidney disease. Patient has chronic kidney disease stage IV with baseline creatinine near 3 secondary to diabetic kidney disease. Patient presented to the hospital with left-sided chest pain which occurred Tuesday. Patient describes the pain as sharp. No radiation to his arm or jaw. He does have history of coronary artery disease with multiple stents. He has long- standing history of diabetes mellitus. No hematuria or dysuria. Patient states he took multiple nitros as well as aspirin and was given additional doses when the EMS was called. He is scheduled for a stress test today. Cardiology is following. Denies use of nonsteroidals. No vomiting or diarrhea. No fever or chills. No cough. Blood pressure on the higher side. No vomiting or diarrhea. Vital signs are stable. General: The patient appeared well nourished and normally developed. HEENT: Head exam is unremarkable. LUNGS: Breath sounds decreased. HEART: Rate and Rhythm are regular. ABDOMEN: Soft, no distention. EXTREMITITES: No edema. Past Medical History Past Medical History: Coronary Artery Disease (CAD), Chest Pain / Angina, Heart Failure, Diabetes Mellitus, Hyperlipidemia, Hypertension, Myocardial Infarction (NE), Renal Disease Additional Past Medical History / Comment(s): 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, coronary artery disease, diabetes mellitus, hypertension, chronic renal failure, hyperlipidemia, JEN Last Myocardial Infarction Date:: 03/04/14 History of Any Multi-Drug Resistant Organisms: None Reported Past Surgical History: Cholecystectomy, Heart Catheterization, Heart Catheterization With Stent Additional Past Surgical History / Comment(s): shoulder, hemmroid, cardiac stent in june 2014 Past Anesthesia/Blood Transfusion Reactions: No Reported Reaction Additional Past Anesthesia/Blood Transfusion Reaction / Comment(s): Never had a blood transfusion Date of Last Stent Placement:: 05/2014 Past Psychological History: Anxiety Smoking Status: Former smoker Past Alcohol Use History: None Reported Past Drug Use History: None Reported - Past Family History Father Family Medical History: Cancer Additional Family Medical History / Comment(s): bladder cancer Mother Family Medical History: Diabetes Mellitus Additional Family Medical History / Comment(s): Pancreatic CA Medications and Allergies Home Medications Medication Instructions Recorded Confirmed Type Cetirizine HCl 10 mg PO DAILY 03/03/14 05/23/21 History Nitroglycerin Sl Tabs [Nitrostat] 0.4 mg SUBLINGUAL Q5M PRN 03/03/14 05/23/21 History Rosuvastatin Calcium [Crestor] 40 mg PO HS 03/03/14 05/23/21 History Ezetimibe [Zetia] 10 mg PO DAILY 05/19/16 05/23/21 History Ferrous Sulfate [Iron (65 MG 325 mg PO DAILY 05/19/16 05/23/21 History Elemental)] Aspirin EC [Ecotrin Low Dose] 81 mg PO DAILY 05/28/18 05/23/21 History Cholecalciferol [Vitamin D3 (25 1,000 unit PO DAILY 05/28/18 05/23/21 History Mcg = 1000 Iu)] Ergocalciferol (Vitamin D2) 50,000 unit PO Q14D 05/28/18 05/23/21 History [Vitamin D2] Febuxostat [Uloric] 40 mg PO DAILY 05/28/18 05/23/21 History Glucagon Emergency Kit 1 mg IM ONCE PRN 05/28/18 05/23/21 History Insulin Aspart (For Pump) [NovoLOG 0.01 unit SQ-PUMP CONTINUOUS 05/28/18 05/23/21 History (For Pump)] Vitamin B Complex 1 cap PO DAILY 05/28/18 05/23/21 History Escitalopram [Lexapro] 10 mg PO DAILY 07/05/18 05/23/21 History Isosorbide Mononitrate ER [Imdur] 60 mg PO BID 07/05/18 05/23/21 History calcitrioL [Calcitriol] 0.25 mcg PO MOTUWETHFR 07/05/18 05/23/21 History Pramipexole [Mirapex] 0.5 mg PO DAILY PRN 05/02/19 05/23/21 History Ranolazine [Ranexa] 500 mg PO BID 05/02/19 05/23/21 History Propranolol [Inderal] 20 mg PO DAILY 07/28/20 05/23/21 History ALPRAZolam [Xanax] 0.25 mg PO BID PRN 01/01/21 05/23/21 History Dulaglutide [Trulicity] 1.5 mg SQ TU 05/23/21 05/23/21 History Allergies Allergy/AdvReac Type Severity Reaction Status Date / Time atorvastatin [From Lipitor] AdvReac Unknown Verified 05/23/21 14:18 Physical Exam Vitals: Vital Signs Temp Pulse Pulse Resp BP Pulse Ox 05/25/21 07:00 97.5 F L 71 16 173/76 100 05/25/21 02:00 15 05/25/21 01:07 97.7 F 71 14 166/79 97 05/24/21 20:00 16 05/24/21 19:13 98.0 F 84 14 176/89 100 05/24/21 15:00 98.4 F 72 17 147/81 98 Intake and Output 05/24/21 05/25/21 05/25/21 22:59 06:59 14:59 Output Total 400 Balance -400 Output: Urine 400 Other: Voiding Method Toilet Toilet Toilet # Voids 2 Results - Lab Results Most recent lab results Calcium 9.3 mg/dL (8.7-10.3) 05/24/21 06:59 Magnesium 2.1 mg/dL (1.6-2.3) 05/23/21 13:22 05/24/21 06:59 05/24/21 06:59 Assessment and Plan Plan: Assessment: 1. Mild acute kidney injury mostly prerenal. Improved. Creatinine 2.9 yesterday. 2. Chronic kidney disease stage IV secondary to diabetic kidney disease with baseline creatinine near 3. 3. Diabetes mellitus. 4. Chest pain. Cardiology following. 5. Coronary artery disease status post cardiac stenting in the past. 6. Metabolic acidosis secondary to chronic kidney disease. 7. Hypertension with chronic kidney disease. 8. Chronic kidney disease mineral bone disease maintained on calcitriol. Plan: Add hydralazine 25 mg 3 times daily - to be held for systolic blood pressure less than 120. Add oral bicarb. Avoid nephrotoxins. Stress test today. Continue to monitor renal function and urine output. Morning labs pending. Thank you for the consultation. I will continue to follow the patient with you during his hospital stay.
--- NOTE | 2021-05-25 10:12 | P.PN ---
Subjective Progress Note Date: 05/25/21 HISTORY OF PRESENT ILLNESS: This is a 70-year-old gentleman who currently followed by Dr. Castle in the office with a past medical history significant for coronary artery disease and prior stenting of the LAD in 2004 and subsequently stenting of the left circumflex in 2012 as well as diabetes and hypertension and dyslipidemia and chronic kidney disease was admitted to the hospital with a chest discomfort. He was in his usual state of health where he was sitting home and started experiencing discomfort in the middle of the chest. The discomfort was a slightly worse with exertion. He took 2 nitroglycerin without improvement but with a third nitro he felt better. The chest discomfort did not radiate to his arms or neck or shoulders or back. No cystitis symptoms of sweating or dizziness or lightheadedness or any feeling of heart racing or fluttering or presyncope or syncope. Ambulance was called and the patient was brought to the emergency department. Since he has been in the hospital he has been chest pain- free. The EKG showed sinus rhythm without any significant ST or T-wave abnormalities was slightly wide QRS. 3 sets of cardiac enzymes were checked and came in to be unremarkable. His pressure has been slightly elevated during his hospital stay. He underwent a heart catheterization back in 2013 and that the last time when he was found to have chronic total occlusion of the left circumflex with intermediate disease in the RCA and he was treated medically and has done well for the last 6-7 years. 05/25/2021 Patient examined this morning at the bedside. Patient denies chest pain or pressure. Denies shortness of breath. Vital signs are stable. PHYSICAL EXAM: VITAL SIGNS: Reviewed. GENERAL: Well-developed in no acute distress. NECK: Supple. No JVD or thyromegaly LUNGS: Respirations even and unlabored. Lungs essentially clear to auscultation bilaterally. HEART: Regular rate and rhythm. S1 and S2 heard. Systolic murmur. EXTREMITIES: Normal range of motion. No clubbing or cyanosis. Peripheral pulses intact. No lower extremity edema ASSESSMENT: Chest pain Coronary artery disease with previous PCI to LCx and LAD Chronic kidney disease Hypertension PLAN: Patient to begin Lisinopril today. Monitor blood pressure. 2D echo ordered. Await results. Patient to undergo Lexiscan stress test today. Further recommendations pending patient course Nurse practitioner note has been reviewed by physician. Signing provider agrees with the documented findings, assessment, and plan of care. Objective - Vital Signs Vital signs: Vital Signs Temp 97.5 F L 05/25/21 07:00 Pulse 71 05/25/21 07:00 Resp 16 05/25/21 07:00 BP 173/76 05/25/21 07:00 Pulse Ox 100 05/25/21 07:00 Intake & Output 05/24/21 05/25/21 05/25/21 18:59 06:59 18:59 Output Total 400 Balance -400 Output: Urine 400 Other: Voiding Method Toilet Toilet Toilet # Voids 1 2 - Labs CBC & Chem 7: 05/24/21 06:59 05/24/21 06:59 Labs: Abnormal Lab Results - Last 24 Hours (Table) 05/24/21 05/24/21 05/24/21 Range/Units 06:59 06:59 12:06 Metamyelocytes % 1 H (0-0) % Sodium 134 L (135-145) mmol/L Carbon Dioxide 19.2 L (21.6-31.8) mmol/L Anion Gap 14.80 H (4.00-12.00) mmol/L BUN 42.6 H (9.0-27.0) mg/dL Creatinine 2.9 H (0.6-1.5) mg/dL Est GFR (CKD-EPI)AfAm 24.1 L (60.0-200.0) Est GFR (CKD-EPI)NonAf 20.8 L (60.0-200.0) Glucose 203 H (70-110) mg/dL POC Glucose (mg/dL) 164 H (75-99) mg/dL 05/24/21 05/24/21 05/25/21 Range/Units 17:21 20:27 07:21 Metamyelocytes % (0-0) % Sodium (135-145) mmol/L Carbon Dioxide (21.6-31.8) mmol/L Anion Gap (4.00-12.00) mmol/L BUN (9.0-27.0) mg/dL Creatinine (0.6-1.5) mg/dL Est GFR (CKD-EPI)AfAm (60.0-200.0) Est GFR (CKD-EPI)NonAf (60.0-200.0) Glucose (70-110) mg/dL POC Glucose (mg/dL) 146 H 185 H 263 H (75-99) mg/dL
--- NOTE | 2021-05-25 11:05 | ECHOF ---
Referral Reason:CP MEASUREMENTS -------- HEIGHT: 172.7 cm WEIGHT: 104.3 kg BP: 146/75 RVIDd: 3.4 cm (< 3.3) IVSd: 1.5 cm (0.6 - 1.1) LVIDd: 4.4 cm (3.9 - 5.3) LVPWd: 1.6 cm (0.6 - 1.1) IVSs: 2.1 cm LVIDs: 3.6 cm LVPWs: 2.3 cm LA Diam: 3.5 cm (2.7 - 3.8) LAESV Index (A-L): 23.71 ml/m Ao Diam: 4.1 cm (2.0 - 3.7) AV Cusp: 1.8 cm (1.5 - 2.6) MV EXCURSION: 16.659 mm (> 18.000) MV EF SLOPE: 21 mm/s (70 - 150) EPSS: 0.8 cm MV E Juan Luis: 0.81 m/s MV DecT: 166 ms MV A Juan Luis: 1.38 m/s MV E/A Ratio: 0.59 AV maxP.88 mmHg AV meanP.51 mmHg FINDINGS -------- Sinus rhythm. This was a technically adequate study. The left ventricular size is normal. There is moderate concentric left ventricular hypertrophy. O verall left ventricular systolic function is normal with, an EF between 60 - 65 %. The right ventricle is mildly enlarged. Normal LA size by volume 22+/-6 ml/m2. The right atrium is normal in size. Interatrial and interventricular septum intact. There is mild aortic valve sclerosis. Trace to mild aortic regurgitation. There is mild aortic st enosis present. Peak/mean gradient across the Aortic Valve is 12.88mmHg / 6.51mmHg. Mild mitral annular calcification present. There is trace to mild mitral regurgitation. The tricuspid valve appears structurally normal. Unable to estimate RVSP due to inadequate TR jet s pectral doppler profile. The pulmonic valve is normal. The aortic root is dilated measuring 4.1cm. Normal inferior vena cava with normal inspiratory collapse consistent with estimated right atrial pre ssure of 5 mmHg. There is no pericardial effusion. CONCLUSIONS -------- 1. The left ventricular size is normal. 2. There is moderate concentric left ventricular hypertrophy. 3. Overall left ventricular systolic function is normal with, an EF between 60 - 65 %. 4. The right ventricle is mildly enlarged. 5. Normal LA size by volume 22+/-6 ml/m2. 6. There is mild aortic valve sclerosis. 7. Trace to mild aortic regurgitation. 8. There is mild aortic stenosis present. 9. Peak/mean gradient across the Aortic Valve is 12.88mmHg / 6.51mmHg. 10. Mild mitral annular calcification present. 11. There is trace to mild mitral regurgitation. 12. The aortic root is dilated measuring 4.1cm. 13. There is no pericardial effusion. SALES TEAM MANAGER: Lyn Calderon RDCS
[2021-05-25] MEDS: SODIUM BICARBONATE TAB 650 MG TAB PO SCH ×2 (11:23→20:06)
[2021-05-25] MEDS: PROPRANOLOL 20 MG TAB PO SCH (11:23)
[2021-05-25 11:52] LABS: African American GFR (CKD) 23.1 (60.0-200.0); Albumin/Globulin Ratio 1.14 (1.60-3.17); Anion Gap 13.6 mmol/L (4.00-12.00); BUN/Creat Ratio 14.97 Ratio (12.00-20.00); Blood Urea Nitrogen 44.9 mg/dL (9.0-27.0); Calcium 8.9 mg/dL (8.7-10.3); Carbon Dioxide 20.4 mmol/L (21.6-31.8); Globulin 3.5 g/dL (1.6-3.3); Total Bilirubin 0.2 mg/dL (0.30-1.20); Total Protein 7.5 g/dL (6.2-8.2)
[2021-05-25 11:57] LABS: HCT 38.9 % (39.6-50.0); HGB 12.9 g/dL (13.0-17.0); MCH 30.6 pg (27.0-32.0); MCHC 33.2 g/dL (32.0-37.0); MCV 92.2 fL (80.0-97.0); Mean Platelet Volume 11.1 fL (9.5-12.2); Platelet Count 231 X 10*3/uL (140-440); RBC 4.22 X 10*6/uL (4.40-5.60); RDW 12.5 % (11.5-14.5); WBC 5.41 X 10*3/uL (4.50-10.00)
[2021-05-25 12:26] LABS: Glucose,Whole Blood 310 mg/dL (75-99)
--- NOTE | 2021-05-25 13:13 | NM ---
EXAMINATION TYPE: NM stress lexiscan cardiolite DATE OF EXAM: 05/25/2021 COMPARISON: NONE HISTORY: Precordial chest pain and abnormal EKG TECHNIQUE: After the intravenous administration of 10.4 mCi Tc 99m Sestamibi - Cardiolite resting SP ECT images acquired 45 minutes post injection. The patient received 0.4mg Lexiscan, 25.4 mCi Tc 99m Sestamibi - Stress images obtained [address] injection FINDINGS: Review of stress and rest SPECT images demonstrates decreased perfusion involving the inferior latera l wall on stress images felt to reflect stress-induced ischemia. Fixed defect inferior wall may refle ct a remote insult versus attenuation artifact. Diminished ejection fraction of 45%. IMPRESSION: 1. Findings felt to reflect stress-induced ischemia inferior lateral wall. 2. Remote insult versus attenuation artifact inferior wall.
[2021-05-25 14:16] LABS: Basophils # (M) 0.05 X 10*3/uL (0.00-0.10); Eosinophils # (M) 0 X 10*3/uL (0.04-0.35); Lymphocytes # (M) 1.68 X 10*3/uL (0.90-5.00); Monocytes # (M) 0.05 X 10*3/uL (0.20-1.00); Neutrophils # (M) 3.62 X 10*3/uL (2.00-8.90); Neutrophils % (M) 67 %
--- NOTE | 2021-05-25 15:36 | EST ---
EXERCISE STRESS AGE: 70 SEX: M HT: 5'8" WT: 230 LBS. PROTOCOL: Lexiscan STAGE: NA DURATION OF EXERCISE: NA HEART RATE REST: 71 BLOOD PRESSURE REST: 146/75 MAXIMUM HEART RATE ACHIEVED: 83 MAXIMUM BLOOD PRESSURE: 146/75 85% MPHR: 127 100% MPHR: 149 METS: NA INDICATIONS: Chest pain. CLINICAL INFORMATION: Baseline EKG shows sinus rhythm with incomplete left bundle branch block. The patient was given intravenous Lexiscan as per protocol, did not have chest pain, and the EKG changes were inconclusive. CONCLUSIONS: 1. Inconclusive EKG part of the stress test due to baseline EKG abnormalities. 2. Cardiolite portion of the stress test will be reported separately. MMODL / IJN: [id number] /
[2021-05-25] MEDS: hydrALAZINE HCL 25 MG TAB PO SCH ×2 (16:23→23:33)
--- NOTE | 2021-05-25 17:16 | P.PN ---
Subjective Progress Note Date: 05/25/21 Principal diagnosis: CC: chest pain Patient is a 70-year-old male patient who has past medical history significant for coronary artery disease status post stent placement, presented with a chief, and a progressive worsening chest pain with exertion and then currently c omplaining of chest pain at rest. Patient was seen in emergency department, patient vital signs stable except blood pressure slightly on the higher side. Currently on 3.09, baseline 2.4. Patient has history of diabetic mellitus type II hypertension hyperlipidemia congestive heart failure. Patient initial troponin and EKG negative, given patient significant cardiac history patient is being admitted to hospital medicine service for cardiac rule out under observation, cardiology will be consulted. Patient had a echocardiogram that showed an EF of 60-65%. Patient had a stress test that showed stress induced ischemia. Patient was seen and examined this morning. He denies any chest pain. No acute issues overnight. 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 - Moving all 4 extremities spontaneously Psych - Calm and cooperative - Labs CBC & Chem 7: 05/25/21 08:00 05/25/21 08:00 Labs: Abnormal Lab Results - Last 24 Hours (Table) 05/24/21 05/24/21 05/25/21 Range/Units 17:21 20:27 07:21 RBC (4.40-5.60) X 10*6/uL Hgb (13.0-17.0) g/dL Hct (39.6-50.0) % Monocytes # (Manual) (0.20-1.00) X 10*3/uL Eosinophils # (Manual) (0.04-0.35) X 10*3/uL Sodium (135-145) mmol/L Carbon Dioxide (21.6-31.8) mmol/L Anion Gap (4.00-12.00) mmol/L BUN (9.0-27.0) mg/dL Creatinine (0.6-1.5) mg/dL Est GFR (CKD-EPI)AfAm (60.0-200.0) Est GFR (CKD-EPI)NonAf (60.0-200.0) Glucose (70-110) mg/dL POC Glucose (mg/dL) 146 H 185 H 263 H (75-99) mg/dL Total Bilirubin (0.30-1.20) mg/dL Globulin (1.6-3.3) g/dL Albumin/Globulin Ratio (1.60-3.17) g/dL 05/25/21 05/25/21 05/25/21 Range/Units 08:00 08:00 12:24 RBC 4.22 L (4.40-5.60) X 10*6/uL Hgb 12.9 L (13.0-17.0) g/dL Hct 38.9 L (39.6-50.0) % Monocytes # (Manual) 0.05 L (0.20-1.00) X 10*3/uL Eosinophils # (Manual) 0 L (0.04-0.35) X 10*3/uL Sodium 133 L (135-145) mmol/L Carbon Dioxide 20.4 L (21.6-31.8) mmol/L Anion Gap 13.60 H (4.00-12.00) mmol/L BUN 44.9 H (9.0-27.0) mg/dL Creatinine 3.0 H (0.6-1.5) mg/dL Est GFR (CKD-EPI)AfAm 23.1 L (60.0-200.0) Est GFR (CKD-EPI)NonAf 20.0 L (60.0-200.0) Glucose 230 H (70-110) mg/dL POC Glucose (mg/dL) 310 H (75-99) mg/dL Total Bilirubin 0.20 L (0.30-1.20) mg/dL Globulin 3.5 H (1.6-3.3) g/dL Albumin/Globulin Ratio 1.14 L (1.60-3.17) g/dL Assessment and Plan Assessment: Chest pain Significant cardiac history cannot exclude underlying unstable angina Consulting cardiology. 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 Patient will likely need heart catheterization. Awaiting further recommendations from cardiology. Nephrology on board as they're likely need to clear the patient for her. Acute kidney injury on CK D states 3 Creatinine baseline is 2.6. Currently creatinine is stable around 3. Patient on IV fluids and has been started on bicarb by nephrology. Nephrology following. Diabetes mellitus type 2 Oral hypoglycemic Continue home insulin regimen Hypertension Continue ontinue Imdur, propranolol Hydralazine when necessary Obesity possible underlying obstructive sleep apnea Will benefit from outpatient sleep study. Anxiety depression Continue home Lexapro Gout Continue home dose of allopurinol DVT prophylaxis: Subcutaneous heparin CODE STATUS: Full code Discharge plan/next site of care: Pending workup hospital course, likely back to home
[2021-05-25 17:18] LABS: Glucose,Whole Blood 225 mg/dL (75-99)
[2021-05-25] MEDS: Insulin Aspart (For Pump) 100 UNIT/ML VIAL SQ-PUMP SCH (17:31)
[2021-05-25] MEDS: NON FORMULARY DRUG (Rosuvastatin Calcium [Crestor] 40 MG Tablet) PO SCH (19:35)
[2021-05-25 20:31] LABS: Glucose,Whole Blood 144 mg/dL (75-99)
[2021-05-25 22:31] LABS: Glucose,Whole Blood 85 mg/dL (75-99)
[2021-05-25] MEDS: SODIUM CHLORIDE 0.9% 1,000 ML IV SCH (23:40)
[2021-05-26 02:23] VITALS: RESP 16
[2021-05-26 07:10] LABS: African American GFR (CKD) 23 (>60 ml/min/1.73 sqM); Anion Gap 13 mmol/L; Blood Urea Nitrogen 46 mg/dL (9-20); Calcium 9.1 mg/dL (8.4-10.2); Carbon Dioxide 22 mmol/L (22-30); Chloride 103 mmol/L (98-107); Glucose 157 mg/dL (74-99); Non-African American GFR(CKD) 20 (>60 ml/min/1.73 sqM); Potassium 4.7 mmol/L (3.5-5.1); Sodium 138 mmol/L (137-145)
[2021-05-26 07:51] LABS: Glucose,Whole Blood 141 mg/dL (75-99)
[2021-05-26 07:52] VITALS: BP 167/83; PULSE 68; TEMP 98
[2021-05-26] MEDS: hydrALAZINE HCL 25 MG TAB PO SCH (08:30)
[2021-05-26] MEDS: ASPIRIN 81 MG PO SCH (08:30)
[2021-05-26] MEDS: ISOSORBIDE MONONITRATE ER 60 MG TAB.ER.24H PO SCH (08:30)
[2021-05-26] MEDS: RANOLAZINE 500 MG TAB.ER.12H PO SCH (08:30)
[2021-05-26] MEDS: PROPRANOLOL 20 MG TAB PO SCH (08:31)
[2021-05-26] MEDS: HEPARIN SODIUM,PORCINE/PF 5,000 UNIT/0.5 ML SYRINGE SQ SCH (08:31)
[2021-05-26] MEDS: allopurinoL 100 MG TAB PO SCH (08:31)
[2021-05-26] MEDS: CHOLECALCIFEROL 25 MCG (1000 IU) TABLET PO SCH (08:31)
[2021-05-26] MEDS: ESCITALOPRAM 10 MG TAB PO SCH (08:31)
[2021-05-26] MEDS: FERROUS SULFATE 325 MG TAB PO SCH (08:31)
[2021-05-26] MEDS: SODIUM BICARBONATE TAB 650 MG TAB PO SCH (08:31)
[2021-05-26] MEDS: LORATADINE 10 MG TAB PO SCH (08:31)
[2021-05-26] MEDS: EZETIMIBE 10 MG TAB PO SCH (08:31)
[2021-05-26] MEDS: INSULIN PUMP MEAL BOLUS 1 UNIT MISC MISCELLANE SCH ×2 (08:32→13:18)
[2021-05-26] MEDS ORDERED: NON FORMULARY DRUG (Dulaglutide [Trulicity] 1.5 MG/0.5 ML Each) SQ SCH (09:00)
--- NOTE | 2021-05-26 09:17 | P.PN ---
Subjective Patient is seen in follow-up for chronic kidney disease. Renal function is stable. No active chest pain. Possible cardiac catheterization today. Vital signs are stable. General: The patient appeared well nourished and normally developed. HEENT: Head exam is unremarkable. Neck is without jugular venous distension. LUNGS: Breath sounds decreased. HEART: Rate and Rhythm are regular. ABDOMEN: Soft, no distention. EXTREMITITES: No edema. Objective - Vital Signs Vital signs: Vital Signs Temp 98.0 F 05/26/21 07:00 Pulse 68 05/26/21 07:00 Resp 16 05/26/21 07:00 BP 167/83 05/26/21 07:00 Pulse Ox 98 05/26/21 07:00 Intake & Output 05/25/21 05/26/21 05/26/21 18:59 06:59 18:59 Weight 104.33 kg Other: Voiding Method Toilet Toilet # Voids 3 1 - Labs CBC & Chem 7: 05/25/21 08:00 05/26/21 06:09 Labs: Abnormal Lab Results - Last 24 Hours (Table) 05/25/21 05/25/21 05/25/21 Range/Units 08:00 08:00 12:24 RBC 4.22 L (4.40-5.60) X 10*6/uL Hgb 12.9 L (13.0-17.0) g/dL Hct 38.9 L (39.6-50.0) % Monocytes # (Manual) 0.05 L (0.20-1.00) X 10*3/uL Eosinophils # (Manual) 0 L (0.04-0.35) X 10*3/uL Sodium 133 L (135-145) mmol/L Carbon Dioxide 20.4 L (21.6-31.8) mmol/L Anion Gap 13.60 H (4.00-12.00) mmol/L BUN 44.9 H (9.0-27.0) mg/dL Creatinine 3.0 H (0.6-1.5) mg/dL Est GFR (CKD-EPI)AfAm 23.1 L (60.0-200.0) Est GFR (CKD-EPI)NonAf 20.0 L (60.0-200.0) Glucose 230 H (70-110) mg/dL POC Glucose (mg/dL) 310 H (75-99) mg/dL Total Bilirubin 0.20 L (0.30-1.20) mg/dL Globulin 3.5 H (1.6-3.3) g/dL Albumin/Globulin Ratio 1.14 L (1.60-3.17) g/dL 05/25/21 05/25/21 05/26/21 Range/Units 17:16 20:29 06:09 RBC (4.40-5.60) X 10*6/uL Hgb (13.0-17.0) g/dL Hct (39.6-50.0) % Monocytes # (Manual) (0.20-1.00) X 10*3/uL Eosinophils # (Manual) (0.04-0.35) X 10*3/uL Sodium (135-145) mmol/L Carbon Dioxide (21.6-31.8) mmol/L Anion Gap (4.00-12.00) mmol/L BUN 46 H (9.0-27.0) mg/dL Creatinine 2.98 H (0.6-1.5) mg/dL Est GFR (CKD-EPI)AfAm (60.0-200.0) Est GFR (CKD-EPI)NonAf (60.0-200.0) Glucose 157 H (70-110) mg/dL POC Glucose (mg/dL) 225 H 144 H (75-99) mg/dL Total Bilirubin (0.30-1.20) mg/dL Globulin (1.6-3.3) g/dL Albumin/Globulin Ratio (1.60-3.17) g/dL 05/26/21 Range/Units 07:36 RBC (4.40-5.60) X 10*6/uL Hgb (13.0-17.0) g/dL Hct (39.6-50.0) % Monocytes # (Manual) (0.20-1.00) X 10*3/uL Eosinophils # (Manual) (0.04-0.35) X 10*3/uL Sodium (135-145) mmol/L Carbon Dioxide (21.6-31.8) mmol/L Anion Gap (4.00-12.00) mmol/L BUN (9.0-27.0) mg/dL Creatinine (0.6-1.5) mg/dL Est GFR (CKD-EPI)AfAm (60.0-200.0) Est GFR (CKD-EPI)NonAf (60.0-200.0) Glucose (70-110) mg/dL POC Glucose (mg/dL) 141 H (75-99) mg/dL Total Bilirubin (0.30-1.20) mg/dL Globulin (1.6-3.3) g/dL Albumin/Globulin Ratio (1.60-3.17) g/dL Assessment and Plan Plan: Assessment: 1. Mild acute kidney injury mostly prerenal. Improved. 2. Chronic kidney disease stage IV secondary to diabetic kidney disease with baseline creatinine near 3. 3. Diabetes mellitus. 4. Chest pain. Cardiology following. Abnormal stress test. 5. Coronary artery disease status post cardiac stenting in the past. 6. Metabolic acidosis secondary to chronic kidney disease. On oral bicarb. Better. 7. Hypertension with chronic kidney disease. 8. Chronic kidney disease mineral bone disease maintained on calcitriol. Plan: Increase hydralazine dose. Avoid nephrotoxins. Continue to monitor renal function and urine output. Possible cardiac catheterization today. Discussed worsening of renal function, potentially requiring renal replacement therapy, post-IV contrast exposure. He understands. IV fluids were started last night and will be continued 12 hours post cardiac catheterization. If cardiac catheterization will not be done today, that Hep-Lock IV fluids. Discussed with the nurse.
--- NOTE | 2021-05-26 11:21 | P.PN ---
Subjective Progress Note Date: 05/26/21 HISTORY OF PRESENT ILLNESS: This is a 70-year-old gentleman who currently followed by Dr. Castle in the office with a past medical history significant for coronary artery disease and prior stenting of the LAD in 2004 and subsequently stenting of the left circumflex in 2012 as well as diabetes and hypertension and dyslipidemia and chronic kidney disease was admitted to the hospital with a chest discomfort. He was in his usual state of health where he was sitting home and started experiencing discomfort in the middle of the chest. The discomfort was a slightly worse with exertion. He took 2 nitroglycerin without improvement but with a third nitro he felt better. The chest discomfort did not radiate to his arms or neck or shoulders or back. No cystitis symptoms of sweating or dizziness or lightheadedness or any feeling of heart racing or fluttering or presyncope or syncope. Ambulance was called and the patient was brought to the emergency department. Since he has been in the hospital he has been chest pain- free. The EKG showed sinus rhythm without any significant ST or T-wave abnormalities was slightly wide QRS. 3 sets of cardiac enzymes were checked and came in to be unremarkable. His pressure has been slightly elevated during his hospital stay. He underwent a heart catheterization back in 2013 and that the last time when he was found to have chronic total occlusion of the left circumflex with intermediate disease in the RCA and he was treated medically and has done well for the last 6-7 years. 05/25/2021 Patient examined this morning at the bedside. Patient denies chest pain or pressure. Denies shortness of breath. Vital signs are stable. 05/26/21 Patient examined this morning at the bedside. Patient denies chest pain or press ure. Denies SOB. Lexiscan stress test yesterday revealing stress-induced ischemia inferior lateral wall. Dr. Sheets states this may be related to his chronic total occlusion of the left circumflex. PHYSICAL EXAM: VITAL SIGNS: Reviewed. GENERAL: Well-developed in no acute distress. NECK: Supple. No JVD or thyromegaly LUNGS: Respirations even and unlabored. Lungs essentially clear to auscultation bilaterally. HEART: Regular rate and rhythm. S1 and S2 heard. Systolic murmur. EXTREMITIES: Normal range of motion. No clubbing or cyanosis. Peripheral pulses intact. No lower extremity edema ASSESSMENT: Chest pain Coronary artery disease with previous PCI to LCx and LAD Chronic kidney disease Hypertension PLAN: Dr. Sheets and patient discussed cardiac cath today. Stress test results may be reflective of patient's known chronic total occlusion of the left circumflex. The decision was made to continue with medical management. Continue current cardiac medications. The patient may be discharged home today from a cardiac standpoint and follow up on an outpatient basis with Dr. Castle. Nurse practitioner note has been reviewed by physician. Signing provider agrees with the documented findings, assessment, and plan of care. Objective - Vital Signs Vital signs: Vital Signs Temp 98.0 F 05/26/21 07:00 Pulse 68 05/26/21 07:00 Resp 16 05/26/21 07:00 BP 167/83 05/26/21 07:00 Pulse Ox 98 05/26/21 07:00 Intake & Output 05/25/21 05/26/21 05/26/21 18:59 06:59 18:59 Weight 104.33 kg Other: Voiding Method Toilet Toilet # Voids 3 1 - Labs CBC & Chem 7: 05/25/21 08:00 05/26/21 06:09 Labs: Abnormal Lab Results - Last 24 Hours (Table) 05/25/21 05/25/21 05/25/21 Range/Units 08:00 08:00 12:24 RBC 4.22 L (4.40-5.60) X 10*6/uL Hgb 12.9 L (13.0-17.0) g/dL Hct 38.9 L (39.6-50.0) % Monocytes # (Manual) 0.05 L (0.20-1.00) X 10*3/uL Eosinophils # (Manual) 0 L (0.04-0.35) X 10*3/uL Sodium 133 L (135-145) mmol/L Carbon Dioxide 20.4 L (21.6-31.8) mmol/L Anion Gap 13.60 H (4.00-12.00) mmol/L BUN 44.9 H (9.0-27.0) mg/dL Creatinine 3.0 H (0.6-1.5) mg/dL Est GFR (CKD-EPI)AfAm 23.1 L (60.0-200.0) Est GFR (CKD-EPI)NonAf 20.0 L (60.0-200.0) Glucose 230 H (70-110) mg/dL POC Glucose (mg/dL) 310 H (75-99) mg/dL Total Bilirubin 0.20 L (0.30-1.20) mg/dL Globulin 3.5 H (1.6-3.3) g/dL Albumin/Globulin Ratio 1.14 L (1.60-3.17) g/dL 05/25/21 05/25/21 05/26/21 Range/Units 17:16 20:29 06:09 RBC (4.40-5.60) X 10*6/uL Hgb (13.0-17.0) g/dL Hct (39.6-50.0) % Monocytes # (Manual) (0.20-1.00) X 10*3/uL Eosinophils # (Manual) (0.04-0.35) X 10*3/uL Sodium (135-145) mmol/L Carbon Dioxide (21.6-31.8) mmol/L Anion Gap (4.00-12.00) mmol/L BUN 46 H (9.0-27.0) mg/dL Creatinine 2.98 H (0.6-1.5) mg/dL Est GFR (CKD-EPI)AfAm (60.0-200.0) Est GFR (CKD-EPI)NonAf (60.0-200.0) Glucose 157 H (70-110) mg/dL POC Glucose (mg/dL) 225 H 144 H (75-99) mg/dL Total Bilirubin (0.30-1.20) mg/dL Globulin (1.6-3.3) g/dL Albumin/Globulin Ratio (1.60-3.17) g/dL 05/26/21 Range/Units 07:36 RBC (4.40-5.60) X 10*6/uL Hgb (13.0-17.0) g/dL Hct (39.6-50.0) % Monocytes # (Manual) (0.20-1.00) X 10*3/uL Eosinophils # (Manual) (0.04-0.35) X 10*3/uL Sodium (135-145) mmol/L Carbon Dioxide (21.6-31.8) mmol/L Anion Gap (4.00-12.00) mmol/L BUN (9.0-27.0) mg/dL Creatinine (0.6-1.5) mg/dL Est GFR (CKD-EPI)AfAm (60.0-200.0) Est GFR (CKD-EPI)NonAf (60.0-200.0) Glucose (70-110) mg/dL POC Glucose (mg/dL) 141 H (75-99) mg/dL Total Bilirubin (0.30-1.20) mg/dL Globulin (1.6-3.3) g/dL Albumin/Globulin Ratio (1.60-3.17) g/dL
[2021-05-26 12:59] LABS: Glucose,Whole Blood 194 mg/dL (75-99)
[2021-05-26] MEDS: SODIUM CHLORIDE 0.9% 1,000 ML IV SCH (13:20)
--- NOTE | 2021-05-26 13:21 | P.DS ---
Providers Date of admission: 05/25/21 18:53 Expected date of discharge: 05/26/21 Attending physician: Vivek Benoit MD Consults: 05/23/21 16:03 Consult Physician Routine Consulting Provider: Donnell Radford Consult Reason/Comments: chest pain Do you want consulting provider notified?: Yes Primary care physician: Jazmín Castellanos MD Hospital Course: The patient is a 70-year-old male with a PMH of coronary artery disease status post stent placement, type II DM, hypertension, hyperlipidemia, chronic CHF, who presented to the emergency room with complaints of gradually worsening chest discomfort or shortness of breath. The patient was also noted to have an acute kidney injury. He was admitted to the medicine service with cardiology and nephrology consulted. The patient underwent a stress test which was abnormal and showed stress-induced ischemia. The patient and his family discussed the case with the philosophy instructor and agreed upon medical management without a cardiac catheterization. The patient's medications were optimized and he was seen at the bedside on the day of discharge. He reports feeling well denied any active complaints. He denied any further episodes of chest discomfort, or shortness of breath. He also denied nausea, vomiting, fever, chills, cough. Denied abdominal pain, weakness, numbness, tingling. He is ready and agreeable for discharge to home. Physical Examination General: Non-toxic, in no acute distress, appears stated age, obese HEENT: NC/AT, anicteric sclerae, moist conjunctiva, no lid-lag, PERRLA Cardiovascular: S1/S2 wnl, no murmurs, rubs, or gallops Lungs: Clear to auscultation, normal respiratory effort, no accessory muscle use Abdominal: Soft, non-tender, non-distended, no guarding, rebound, or rigidity Skin: Warm, dry Extremities: No edema or contractures Psychiatric: Alert and oriented to person, place and time, appropriate affect Neuro: CN II-XII grossly intact, Strength 5/5 in all 4 extremities, Speech intact, Sensation to light touch grossly intact throughout Discharge diagnosis: Abnormal lexicon stress test, acute kidney injury on chr onic kidney disease, type II DM, hypertension, obesity, anxiety, depression, chronic up A total of 35 minutes of time were spent preparing this complex discharge summary. Patient Condition at Discharge: Fair Plan - Discharge Summary Discharge Rx Participant: No New Discharge Prescriptions: New lisinopriL [Zestril] 2.5 mg PO DAILY #30 tab hydrALAZINE HCL [Apresoline] 50 mg PO TID #30 tab Continue Rosuvastatin Calcium [Crestor] 40 mg PO HS Cetirizine HCl 10 mg PO DAILY Nitroglycerin Sl Tabs [Nitrostat] 0.4 mg SUBLINGUAL Q5M PRN PRN Reason: Chest Pain Ezetimibe [Zetia] 10 mg PO DAILY Ferrous Sulfate [Iron (65 MG Elemental)] 325 mg PO DAILY Glucagon Emergency Kit 1 mg IM ONCE PRN PRN Reason: Hypoglycemia Febuxostat [Uloric] 40 mg PO DAILY Cholecalciferol [Vitamin D3 (25 Mcg = 1000 Iu)] 1,000 unit PO DAILY Vitamin B Complex 1 cap PO DAILY Ergocalciferol (Vitamin D2) [Vitamin D2] 50,000 unit PO Q14D Insulin Aspart (For Pump) [NovoLOG (For Pump)] 0.01 unit SQ-PUMP CONTINUOUS Aspirin EC [Ecotrin Low Dose] 81 mg PO DAILY calcitrioL [Calcitriol] 0.25 mcg PO MOTUWETHFR Escitalopram [Lexapro] 10 mg PO DAILY Isosorbide Mononitrate ER [Imdur] 60 mg PO BID Pramipexole [Mirapex] 0.5 mg PO DAILY PRN PRN Reason: RESTLESS LEGS Ranolazine [Ranexa] 500 mg PO BID Propranolol [Inderal] 20 mg PO DAILY ALPRAZolam [Xanax] 0.25 mg PO BID PRN PRN Reason: Anxiety Dulaglutide [Trulicity] 1.5 mg SQ TU Discharge Medication List Cetirizine HCl 10 mg PO DAILY 03/03/14 [History] Nitroglycerin Sl Tabs [Nitrostat] 0.4 mg SUBLINGUAL Q5M PRN 03/03/14 [History] Rosuvastatin Calcium [Crestor] 40 mg PO HS 03/03/14 [History] Ezetimibe [Zetia] 10 mg PO DAILY 05/19/16 [History] Ferrous Sulfate [Iron (65 MG Elemental)] 325 mg PO DAILY 05/19/16 [History] Aspirin EC [Ecotrin Low Dose] 81 mg PO DAILY 05/28/18 [History] Cholecalciferol [Vitamin D3 (25 Mcg = 1000 Iu)] 1,000 unit PO DAILY 05/28/18 [History] Ergocalciferol (Vitamin D2) [Vitamin D2] 50,000 unit PO Q14D 05/28/18 [History] Febuxostat [Uloric] 40 mg PO DAILY 05/28/18 [History] Glucagon Emergency Kit 1 mg IM ONCE PRN 05/28/18 [History] Insulin Aspart (For Pump) [NovoLOG (For Pump)] 0.01 unit SQ-PUMP CONTINUOUS 05/28/18 [History] Vitamin B Complex 1 cap PO DAILY 05/28/18 [History] Escitalopram [Lexapro] 10 mg PO DAILY 07/05/18 [History] Isosorbide Mononitrate ER [Imdur] 60 mg PO BID 07/05/18 [History] calcitrioL [Calcitriol] 0.25 mcg PO MOTUWETHFR 07/05/18 [History] Pramipexole [Mirapex] 0.5 mg PO DAILY PRN 05/02/19 [History] Ranolazine [Ranexa] 500 mg PO BID 05/02/19 [History] Propranolol [Inderal] 20 mg PO DAILY 07/28/20 [History] ALPRAZolam [Xanax] 0.25 mg PO BID PRN 01/01/21 [History] Dulaglutide [Trulicity] 1.5 mg SQ TU 05/23/21 [History] hydrALAZINE HCL [Apresoline] 50 mg PO TID #30 tab 05/26/21 [Rx] lisinopriL [Zestril] 2.5 mg PO DAILY #30 tab 05/26/21 [Rx] Follow up Appointment(s)/Referral(s): Saritha Cadena MD [STAFF PHYSICIAN] - 1 Week Jazmín Castellanos MD [Primary Care Provider] - 1 Week Shiraz Castle DO [Family Provider] - 06/02/21 2:00 pm Patient Instructions/Handouts: Chest Pain (DC) Activity/Diet/Wound Care/Special Instructions: activity as tolerated heart healthy/consistent carb diet Discharge Disposition: HOME SELF-CARE
[2021-05-26] MEDS ORDERED: hydrALAZINE HCL 50 MG TAB PO SCH (16:00)
--- NOTE | 2021-05-27 10:41 | CDI ---
Documentation Clarification Form Date: 05/27/21 From: Alyx Coronado Admit Date: 05/25/2021 06:53:00 PM Patient Name: Phan Luciano Visit Number: [id number] Discharge Date: 05/26/2021 02:18:00 PM ATTENTION: The Clinical Documentation Specialists (CDI) and [facility] Coding Staff appreciate your assistance in clarifying documentation. Please respond to the clarification below the line at the bottom and electronically sign. The CDI & [facility] Coding staff will review the response and follow-up if needed. Please note: Queries are made part of the Legal Health Record. If you have any questions, please contact the author of this message via ITS. Dr. Kristen Becerra, Your patient has the documented symptom of chest pain in the ED Note, H&P, both consults, PNs & DS. Additional clarification regarding the etiology/cause of this symptom is requested. Patient C/O: Patient is a 70-year-old male patient who has past medical history significant for coronary artery disease status post stent placement, presented with a chief, and a progressive worsening chest pain with exertion and then currently complaining of chest pain at rest. History/Risk factors: CAD w stent, chronic total occlusion of coronary artery, HTN w CHF & CKD stage 4, DM T2, cardiomyopathy, HLD Clinical Indicators: BP on higher side -175/89, 152/85, EKG & Troponin negative. Stress test abnormal and showed stress-induced ischemia. Treatment: Stress test, medical management Please provide additional clarification regarding the etiology/cause of the chest pain. [ ] Chest pain due to CAD with angina (specify vessel and type of angina if known) - due to chronic occlusion of L circumflex (as per Cardiology) [ ] Chest pain due to chest wall pain [ ] Chest pain due to acute coronary ischemia [ ] Chest pain due to other condition, please specify [ ] Unable to determine MTDD
[2021-05-29] MEDS ORDERED: ERGOCALCIFEROL 1,250 MCG (50,000 IU) CAPSULE PO SCH (09:00)
== END 2021-05-26 14:18 | disposition home or self-care (01) ==
LOC: EC 13:11 → 6NMEDSUR 16:05 → OBSVTOIN 05-25 18:53 → INTOOBSV 05-25 18:53 → UNDODISIN 05-26 14:18
PROVIDERS: ADMIT Student in an Organized Health Care Education/Training Program; ATTEND Student in an Organized Health Care Education/Training Program
DX: R94.31 Abnormal electrocardiogram [ECG] [EKG] (principal); R94.39 Abnormal result of other cardiovascular function study; I13.0 Hypertensive heart and chronic kidney disease with heart failure and stage 1 through stage 4 chronic kidney disease, or unspecified chronic kidney disease; N17.9 Acute kidney failure, unspecified; E11.22 Type 2 diabetes mellitus with diabetic chronic kidney disease; N18.4 Chronic kidney disease, stage 4 (severe); I50.9 Heart failure, unspecified; E66.9 Obesity, unspecified; Z68.35 Body mass index [BMI] 35.0-35.9, adult; F41.9 Anxiety disorder, unspecified; F32.9 Major depressive disorder, single episode, unspecified; I25.10 Atherosclerotic heart disease of native coronary artery without angina pectoris; Z95.5 Presence of coronary angioplasty implant and graft; E78.5 Hyperlipidemia, unspecified; R07.89 Other chest pain; R11.0 Nausea; I25.2 Old myocardial infarction; I24.8 Other forms of acute ischemic heart disease; G47.33 Obstructive sleep apnea (adult) (pediatric); E87.2 Acidosis; E83.9 Disorder of mineral metabolism, unspecified; I25.82 Chronic total occlusion of coronary artery; I42.9 Cardiomyopathy, unspecified; I44.0 Atrioventricular block, first degree; I44.7 Left bundle-branch block, unspecified; I08.0 Rheumatic disorders of both mitral and aortic valves; M10.9 Gout, unspecified; Z20.822 Contact with and (suspected) exposure to COVID-19; Z77.098 Contact with and (suspected) exposure to other hazardous, chiefly nonmedicinal, chemicals; Z53.29 Procedure and treatment not carried out because of patient's decision for other reasons; Z90.49 Acquired absence of other specified parts of digestive tract; Z87.891 Personal history of nicotine dependence; Z79.82 Long term (current) use of aspirin; Z79.899 Other long term (current) drug therapy; Z79.4 Long term (current) use of insulin; Z96.41 Presence of insulin pump (external) (internal); Z98.890 Other specified postprocedural states; Z88.8 Allergy status to other drugs, medicaments and biological substances; Z71.9 Counseling, unspecified; Z80.52 Family history of malignant neoplasm of bladder; Z80.0 Family history of malignant neoplasm of digestive organs; Z83.3 Family history of diabetes mellitus
CPT/HCPCS: 96372 ×3; 96361; 96374; 99285; 36415; 93005; 93017; 93306; 80053 ×2; 80048 ×2; 83735 ×2; 84484; 85025 ×3; 85610; 85730; 87635; 71046; 78452; G0378 ×4; A9500; J2405; J1644 ×3

== ENCOUNTER → 2021-06-23 | Outpatient (CLI) | payer MEDICARE ==
--- NOTE | 2021-06-23 10:33 | US ---
EXAMINATION TYPE: US kidneys/renal and bladder DATE OF EXAM: 06/23/2021 COMPARISON: NONE CLINICAL HISTORY: N18.4 chronic kidney disease. EXAM MEASUREMENTS: Right Kidney: 12.4 x 5.4 x 5.1 cm Left Kidney: 12.5 x 5.1 x 5.7 cm Right Kidney: No hydronephrosis, cyst measuring 2.2 X 1.6 X 1.9cm Left Kidney: No hydronephrosis, cyst measuring 3.6 x 3.5 x 3.7cm Bladder: wnl There is no evidence for hydronephrosis at this point in time. No nephrolithiasis is seen. No solid masses are identified. The urinary bladder is anechoic. Bilateral ureteral jets are seen. IMPRESSION: Bilateral renal cysts noted. Otherwise unremarkable study.
== END | disposition home or self-care (01) ==
LOC: RADUSWWP 09:48
PROVIDERS: ATTEND Internal Medicine Nephrology
DX: N18.4 Chronic kidney disease, stage 4 (severe) (principal); N28.1 Cyst of kidney, acquired
CPT/HCPCS: 76770

== ENCOUNTER 2021-07-27 15:03 | Emergency (ER) | payer MEDICARE ==
[2021-07-27 17:43] VITALS: PULSE 70; RESP 18
--- NOTE | 2021-07-27 18:53 | ED ---
URI HPI - General Chief Complaint: Upper Respiratory Infection Stated Complaint: wants covid test Time Seen by Provider: 07/27/21 17:45 Source: patient, RN notes reviewed Mode of arrival: ambulatory Limitations: no limitations - Related Data Home Medications Medication Instructions Recorded Confirmed Cetirizine HCl 10 mg PO DAILY 03/03/14 05/23/21 Nitroglycerin Sl Tabs [Nitrostat] 0.4 mg SUBLINGUAL Q5M PRN 03/03/14 05/23/21 Rosuvastatin Calcium [Crestor] 40 mg PO HS 03/03/14 05/23/21 Ezetimibe [Zetia] 10 mg PO DAILY 05/19/16 05/23/21 Ferrous Sulfate [Iron (65 MG 325 mg PO DAILY 05/19/16 05/23/21 Elemental)] Aspirin EC [Ecotrin Low Dose] 81 mg PO DAILY 05/28/18 05/23/21 Cholecalciferol [Vitamin D3 (25 1,000 unit PO DAILY 05/28/18 05/23/21 Mcg = 1000 Iu)] Ergocalciferol (Vitamin D2) 50,000 unit PO Q14D 05/28/18 05/23/21 [Vitamin D2] Febuxostat [Uloric] 40 mg PO DAILY 05/28/18 05/23/21 Glucagon Emergency Kit 1 mg IM ONCE PRN 05/28/18 05/23/21 Insulin Aspart (For Pump) [NovoLOG 0.01 unit SQ-PUMP CONTINUOUS 05/28/18 05/23/21 (For Pump)] Vitamin B Complex 1 cap PO DAILY 05/28/18 05/23/21 Escitalopram [Lexapro] 10 mg PO DAILY 07/05/18 05/23/21 Isosorbide Mononitrate ER [Imdur] 60 mg PO BID 07/05/18 05/23/21 calcitrioL [Calcitriol] 0.25 mcg PO MOTUWETHFR 07/05/18 05/23/21 Pramipexole [Mirapex] 0.5 mg PO DAILY PRN 05/02/19 05/23/21 Ranolazine [Ranexa] 500 mg PO BID 05/02/19 05/23/21 Propranolol [Inderal] 20 mg PO DAILY 07/28/20 05/23/21 ALPRAZolam [Xanax] 0.25 mg PO BID PRN 01/01/21 05/23/21 Dulaglutide [Trulicity] 1.5 mg SQ TU 05/23/21 05/23/21 Previous Rx's Medication Instructions Recorded hydrALAZINE HCL [Apresoline] 50 mg PO TID #30 tab 05/26/21 lisinopriL [Zestril] 2.5 mg PO DAILY #30 tab 05/26/21 Allergies Allergy/AdvReac Type Severity Reaction Status Date / Time atorvastatin [From Lipitor] AdvReac Unknown Verified 07/27/21 17:43 Review of Systems ROS Statement: Those systems with pertinent positive or pertinent negative responses have been documented in the HPI. ROS Other: All systems not noted in ROS Statement are negative. Past Medical History Past Medical History: Coronary Artery Disease (CAD), Chest Pain / Angina, Heart Failure, Diabetes Mellitus, Hyperlipidemia, Hypertension, Myocardial Infarction ([place]), Renal Disease Additional Past Medical History / Comment(s): 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, coronary artery disease, diabetes mellitus, hypertension, chronic renal failure, hyperlipidemia, JEN Last Myocardial Infarction Date:: 03/04/14 History of Any Multi-Drug Resistant Organisms: None Reported Past Surgical History: Cholecystectomy, Heart Catheterization, Heart Catheterization With Stent Additional Past Surgical History / Comment(s): shoulder, hemmroid, cardiac stent in june 2014, eye surgery Past Anesthesia/Blood Transfusion Reactions: No Reported Reaction Additional Past Anesthesia/Blood Transfusion Reaction / Comment(s): Never had a blood transfusion Date of Last Stent Placement:: 05/2014 Past Psychological History: Anxiety Smoking Status: Former smoker Past Alcohol Use History: None Reported Past Drug Use History: None Reported - Past Family History Father Family Medical History: Cancer Additional Family Medical History / Comment(s): bladder cancer Mother Family Medical History: Diabetes Mellitus Additional Family Medical History / Comment(s): Pancreatic CA General Exam Limitations: no limitations General appearance: alert, in no apparent distress, obese Head exam: Present: atraumatic, normocephalic, normal inspection Eye exam: Present: normal appearance, PERRL, EOMI. Absent: scleral icterus, conjunctival injection, periorbital swelling ENT exam: Present: normal exam, mucous membranes moist Neck exam: Present: normal inspection Respiratory exam: Present: normal lung sounds bilaterally. Absent: respiratory distress, wheezes, rales, rhonchi, stridor Cardiovascular Exam: Present: regular rate, normal rhythm, normal heart sounds. Absent: systolic murmur, diastolic murmur, rubs, gallop, clicks Extremities exam: Present: normal inspection, full ROM, normal capillary refill. Absent: tenderness, pedal edema, joint swelling, calf tenderness Neurological exam: Present: alert, oriented X3 Psychiatric exam: Present: normal affect, normal mood Skin exam: Present: warm, dry, intact, normal color. Absent: rash Course Vital Signs 07/27/21 07/27/21 17:38 18:12 Temperature 97.9 F Pulse Rate 70 Respiratory 18 18 Rate Blood Pressure 152/91 O2 Sat by Pulse 99 Oximetry Medical Decision Making - Medical Decision Making 70-year-old male complaining of cough and congestion 3-4 days. Covid test ordered, Covid test negative. Patient most likely extraction of upper respiratory tract infection. Case discussed with Dr. Zhu, patient discharge home with conservative management. - Lab Data Lab Results 07/27/21 Range/Units 18:10 Coronavirus (PCR) Not Detected (Not Detectd) Disposition Clinical Impression: Acute upper respiratory infection Disposition: HOME SELF-CARE Condition: Stable Instructions (If sedation given, give patient instructions): Upper Respiratory Infection (ED) Additional Instructions: Please return to the Emergency Department if symptoms worsen or any other concerns. Take Tylenol Motrin as needed for any aches pains or fevers. Follow-up with primary care in 1-2 days. Is patient prescribed a controlled substance at d/c from ED?: No Referrals: Marlon Valentino MD [Primary Care Provider] - 1-2 days Time of Disposition: 18:52
--- NOTE | 2021-07-27 18:58 | ED ---
Medical Decision Making - Medical Decision Making Chief complaint and history of presenting illness. A she is a 70-year-old male that presents to the emergency department complaining of cough and congestion 3-4 days. He notes he came in to get a Covid test. He was otherwise well-appearing in no apparent distress. She denied any chest pain shortness of breath headache nausea vomiting diarrhea constipation fever fatigue chills. - Lab Data Lab Results 07/27/21 Range/Units 18:10 Coronavirus (PCR) Not Detected (Not Detectd) Disposition Clinical Impression: Acute upper respiratory infection Disposition: HOME SELF-CARE Condition: Stable Instructions (If sedation given, give patient instructions): Upper Respiratory Infection (ED) Additional Instructions: Please return to the Emergency Department if symptoms worsen or any other concerns. Take Tylenol Motrin as needed for any aches pains or fevers. Follow-up with primary care in 1-2 days. Is patient prescribed a controlled substance at d/c from ED?: No Referrals: Marlon Valentino MD [Primary Care Provider] - 1-2 days
[2021-07-27 19:06] VITALS: BP 189/90; TEMP 98.1
== END 2021-07-27 19:06 | disposition home or self-care (01) ==
LOC: EC 15:03
DX: J06.9 Acute upper respiratory infection, unspecified (principal); I11.0 Hypertensive heart disease with heart failure; I50.9 Heart failure, unspecified; I25.10 Atherosclerotic heart disease of native coronary artery without angina pectoris; E11.9 Type 2 diabetes mellitus without complications; E78.5 Hyperlipidemia, unspecified; I25.2 Old myocardial infarction; F41.9 Anxiety disorder, unspecified; Z79.82 Long term (current) use of aspirin; Z79.4 Long term (current) use of insulin; Z90.49 Acquired absence of other specified parts of digestive tract; Z87.891 Personal history of nicotine dependence; Z20.822 Contact with and (suspected) exposure to COVID-19
CPT/HCPCS: 87635; 99283

== ENCOUNTER 2021-08-10 14:31 | Emergency (ER) | payer MEDICARE ==
[2021-08-10 15:23] VITALS: TEMP 97.6
[2021-08-10 16:08] LABS: HCT 38.3 % (39.0-53.0); HGB 12.9 gm/dL (13.0-17.5); MCH 30.6 pg (25.0-35.0); MCHC 33.7 g/dL (31.0-37.0); MCV 90.7 fL (80.0-100.0); Platelet Count 191 k/uL (150-450); RBC 4.22 m/uL (4.30-5.90); RDW 13.4 % (11.5-15.5); WBC 4.7 k/uL (3.8-10.6)
[2021-08-10] MEDS ORDERED: SODIUM CHLORIDE 0.9% 1,000 ML IV ONE (16:19)
[2021-08-10 16:24] LABS: Albumin 3.7 g/dL (3.5-5.0); Calcium 8.5 mg/dL (8.4-10.2); Potassium 4.2 mmol/L (3.5-5.1); Total Protein 7.4 g/dL (6.3-8.2)
[2021-08-10 16:25] LABS: Magnesium 1.6 mg/dL (1.6-2.3); Total Bilirubin 0.7 mg/dL (0.2-1.3)
[2021-08-10 16:32] LABS: Band Neutrophils % 1 %; Eosinophils # (M) 0.19 k/uL (0-0.7); Lymphocytes # (M) 1.03 k/uL (1.0-4.8); Monocytes # (M) 0.89 k/uL (0-1.0); Neutrophils % (M) 54 %; Nucleated Red Blood Cells 0 /100 WBC (0-0); Total Cells Counted 100
--- NOTE | 2021-08-10 16:32 | ED ---
General Adult HPI - General Chief complaint: Nausea/Vomiting/Diarrhea Stated complaint: Diarrhea Time Seen by Provider: 08/10/21 16:12 Source: patient, RN notes reviewed, old records reviewed Mode of arrival: ambulatory Limitations: no limitations - History of Present Illness Initial comments: 70 male presenting for evaluation of generalized weakness, diarrhea. Patient has had symptoms for the past 6 days. He was started on antibiotic by primary care physician. He had been tested for coronavirus because several weeks ago he did have some upper respiratory symptoms. This has been negative. He states diarrhea is mostly watery, he is having multiple episodes daily. No vomiting. No abdominal pain. No fever. No chest pain. - Related Data Home Medications Medication Instructions Recorded Confirmed Cetirizine HCl 10 mg PO DAILY 03/03/14 08/10/21 Nitroglycerin Sl Tabs [Nitrostat] 0.4 mg SUBLINGUAL Q5M PRN 03/03/14 08/10/21 Rosuvastatin Calcium [Crestor] 40 mg PO HS 03/03/14 08/10/21 Ezetimibe [Zetia] 10 mg PO DAILY 05/19/16 08/10/21 Ferrous Sulfate [Iron (65 MG 325 mg PO DAILY 05/19/16 08/10/21 Elemental)] Aspirin EC [Ecotrin Low Dose] 81 mg PO DAILY 05/28/18 08/10/21 Ergocalciferol (Vitamin D2) 50,000 unit PO Q14D 05/28/18 08/10/21 [Vitamin D2] Febuxostat [Uloric] 40 mg PO DAILY 05/28/18 08/10/21 Glucagon Emergency Kit 1 mg IM ONCE PRN 05/28/18 08/10/21 Insulin Aspart (For Pump) [NovoLOG 0.01 unit SQ-PUMP CONTINUOUS 05/28/18 08/10/21 (For Pump)] Vitamin B Complex 1 cap PO DAILY 05/28/18 08/10/21 Escitalopram [Lexapro] 10 mg PO DAILY 07/05/18 08/10/21 Isosorbide Mononitrate ER [Imdur] 60 mg PO BID 07/05/18 08/10/21 calcitrioL [Calcitriol] 0.25 mcg PO MOTUWETHFR 07/05/18 08/10/21 Pramipexole [Mirapex] 0.5 mg PO DAILY PRN 05/02/19 08/10/21 Ranolazine [Ranexa] 500 mg PO BID 05/02/19 08/10/21 Propranolol [Inderal] 20 mg PO DAILY 07/28/20 08/10/21 Dulaglutide [Trulicity] 1.5 mg SQ TU 05/23/21 08/10/21 Albuterol Inhaler [Ventolin Hfa 2 puff INHALATION RT-QID PRN 08/10/21 08/10/21 Inhaler] Cholecalciferol [Vitamin D3 (25 25 mcg PO DAILY 08/10/21 08/10/21 Mcg = 1000 Iu)] Fluticasone Propion/Salmeterol 1 puff INHALATION RT-BID 08/10/21 08/10/21 [Wixela 100-50 Inhub] Metoprolol Succinate [Toprol XL] 25 mg PO DAILY 08/10/21 08/10/21 Allergies Allergy/AdvReac Type Severity Reaction Status Date / Time atorvastatin [From Lipitor] AdvReac Unknown Verified 08/10/21 18:04 Review of Systems ROS Statement: Those systems with pertinent positive or pertinent negative responses have been documented in the HPI. ROS Other: All systems not noted in ROS Statement are negative. Past Medical History Past Medical History: Coronary Artery Disease (CAD), Chest Pain / Angina, Heart Failure, Diabetes Mellitus, Hyperlipidemia, Hypertension, Myocardial Infarction (AR), Renal Disease Additional Past Medical History / Comment(s): 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, coronary artery disease, diabetes mellitus, hypertension, chronic renal failure, hyperlipidemia, JEN Last Myocardial Infarction Date:: 03/04/14 History of Any Multi-Drug Resistant Organisms: None Reported Past Surgical History: Cholecystectomy, Heart Catheterization, Heart Catheterization With Stent Additional Past Surgical History / Comment(s): shoulder, hemmroid, cardiac stent in june 2014, eye surgery Past Anesthesia/Blood Transfusion Reactions: No Reported Reaction Additional Past Anesthesia/Blood Transfusion Reaction / Comment(s): Never had a blood transfusion Date of Last Stent Placement:: 05/2014 Past Psychological History: Anxiety Smoking Status: Former smoker Past Alcohol Use History: None Reported Past Drug Use History: None Reported - Past Family History Father Family Medical History: Cancer Additional Family Medical History / Comment(s): bladder cancer Mother Family Medical History: Diabetes Mellitus Additional Family Medical History / Comment(s): Pancreatic CA General Exam Limitations: no limitations General appearance: alert, in no apparent distress Head exam: Present: atraumatic, normocephalic Eye exam: Present: normal appearance, PERRL ENT exam: Present: mucous membranes dry Neck exam: Present: normal inspection. Absent: tenderness, meningismus Respiratory exam: Present: normal lung sounds bilaterally. Absent: respiratory distress, wheezes Cardiovascular Exam: Present: regular rate, normal rhythm GI/Abdominal exam: Present: soft, distended. Absent: tenderness, guarding, rebound Extremities exam: Present: normal inspection, normal capillary refill. Absent: pedal edema, calf tenderness Neurological exam: Present: alert, oriented X3, CN II-XII intact. Absent: motor sensory deficit Psychiatric exam: Present: normal affect, normal mood Skin exam: Present: warm, dry, intact. Absent: cyanosis, diaphoretic Course Vital Signs 08/10/21 15:20 Temperature 97.6 F Pulse Rate 68 Respiratory 20 Rate Blood Pressure 144/76 O2 Sat by Pulse 99 Oximetry Medical Decision Making - Medical Decision Making 1-year-old male with diarrhea. Workup initiated. He has no abdominal tenderness or pain. He is hemodynamically stable. Normal CBC. He does have an elevated creatinine which is baseline for this patient around 3. I did obtain a C. difficile toxin assay which is negative. Stool culture pending. Patient given 1 L of IV hydration and is able to tolerate fluid in the emergency department. He will follow-up with his primary care physician. Return parameters are discussed. - Lab Data Result diagrams: 08/10/21 15:44 08/10/21 15:44 Lab Results 08/10/21 08/10/21 08/10/21 Range/Units 15:27 15:44 15:44 WBC 4.7 (3.8-10.6) k/uL RBC 4.22 L (4.30-5.90) m/uL Hgb 12.9 L (13.0-17.5) gm/dL Hct 38.3 L (39.0-53.0) % MCV 90.7 (80.0-100.0) fL MCH 30.6 (25.0-35.0) pg MCHC 33.7 (31.0-37.0) g/dL RDW 13.4 (11.5-15.5) % Plt Count 191 (150-450) k/uL MPV 8.0 Neutrophils % (Manual) 54 % Band Neuts % (Manual) 1 % Lymphocytes % (Manual) 22 % Monocytes % (Manual) 19 % Eosinophils % (Manual) 4 % Neutrophils # (Manual) 2.50 (1.3-7.7) k/uL Lymphocytes # (Manual) 1.03 (1.0-4.8) k/uL Monocytes # (Manual) 0.89 (0-1.0) k/uL Eosinophils # (Manual) 0.19 (0-0.7) k/uL Nucleated RBCs 0 (0-0) /100 WBC Manual Slide Review Performed Sodium 135 L (137-145) mmol/L Potassium 4.2 (3.5-5.1) mmol/L Chloride 101 (98-107) mmol/L Carbon Dioxide 22 (22-30) mmol/L Anion Gap 12 mmol/L BUN 43 H (9-20) mg/dL Creatinine 3.03 H (0.66-1.25) mg/dL Est GFR (CKD-EPI)AfAm 23 (>60 ml/min/1.73 sqM) Est GFR (CKD-EPI)NonAf 20 (>60 ml/min/1.73 sqM) Glucose 170 H (74-99) mg/dL Calcium 8.5 (8.4-10.2) mg/dL Magnesium 1.6 (1.6-2.3) mg/dL Total Bilirubin 0.7 (0.2-1.3) mg/dL AST 28 (17-59) U/L ALT 14 (4-49) U/L Alkaline Phosphatase 103 (38-126) U/L Total Protein 7.4 (6.3-8.2) g/dL Albumin 3.7 (3.5-5.0) g/dL Lipase 55 (23-300) U/L C. difficile (EIA) Intrp (Negative) Coronavirus (PCR) Not Detected (Not Detectd) 08/10/21 Range/Units 17:49 WBC (3.8-10.6) k/uL RBC (4.30-5.90) m/uL Hgb (13.0-17.5) gm/dL Hct (39.0-53.0) % MCV (80.0-100.0) fL MCH (25.0-35.0) pg MCHC (31.0-37.0) g/dL RDW (11.5-15.5) % Plt Count (150-450) k/uL MPV Neutrophils % (Manual) % Band Neuts % (Manual) % Lymphocytes % (Manual) % Monocytes % (Manual) % Eosinophils % (Manual) % Neutrophils # (Manual) (1.3-7.7) k/uL Lymphocytes # (Manual) (1.0-4.8) k/uL Monocytes # (Manual) (0-1.0) k/uL Eosinophils # (Manual) (0-0.7) k/uL Nucleated RBCs (0-0) /100 WBC Manual Slide Review Sodium (137-145) mmol/L Potassium (3.5-5.1) mmol/L Chloride (98-107) mmol/L Carbon Dioxide (22-30) mmol/L Anion Gap mmol/L BUN (9-20) mg/dL Creatinine (0.66-1.25) mg/dL Est GFR (CKD-EPI)AfAm (>60 ml/min/1.73 sqM) Est GFR (CKD-EPI)NonAf (>60 ml/min/1.73 sqM) Glucose (74-99) mg/dL Calcium (8.4-10.2) mg/dL Magnesium (1.6-2.3) mg/dL Total Bilirubin (0.2-1.3) mg/dL AST (17-59) U/L ALT (4-49) U/L Alkaline Phosphatase (38-126) U/L Total Protein (6.3-8.2) g/dL Albumin (3.5-5.0) g/dL Lipase (23-300) U/L C. difficile (EIA) Intrp Negative (Negative) Coronavirus (PCR) (Not Detectd) Disposition Clinical Impression: Dehydration, Diarrhea Disposition: HOME SELF-CARE Condition: Good Instructions (If sedation given, give patient instructions): Acute Diarrhea (ED) Is patient prescribed a controlled substance at d/c from ED?: No Referrals: Marlon Valentino MD [Primary Care Provider] - 1-2 days Time of Disposition: 19:37
[2021-08-10] MEDS ORDERED: AMPICILLIN-SULBACTAM 3 GM in SODIUM CHLORIDE 0.9% 100 ML IVPB STA (16:35)
[2021-08-10 19:40] VITALS: BP 152/79; PULSE 71; RESP 16
== END 2021-08-10 19:50 | disposition home or self-care (01) ==
LOC: EC 14:31
DX: R19.7 Diarrhea, unspecified (principal); E86.0 Dehydration; I25.10 Atherosclerotic heart disease of native coronary artery without angina pectoris; I11.0 Hypertensive heart disease with heart failure; I50.9 Heart failure, unspecified; E11.9 Type 2 diabetes mellitus without complications; E78.5 Hyperlipidemia, unspecified; I25.2 Old myocardial infarction; F41.9 Anxiety disorder, unspecified; Z79.82 Long term (current) use of aspirin; Z79.4 Long term (current) use of insulin; Z90.49 Acquired absence of other specified parts of digestive tract; Z87.891 Personal history of nicotine dependence; Z20.822 Contact with and (suspected) exposure to COVID-19
CPT/HCPCS: 36415; 80053; 83690; 83735; 85025; 87045; 87046; 87324; 87635; 96360; 99284

== ENCOUNTER 2021-10-08 12:28 | Inpatient (IN) | payer MEDICARE ==
[2021-10-08] MEDS ORDERED: SODIUM CHLORIDE 0.9% 1,000 ML IV STA (12:35)
[2021-10-08] MEDS ORDERED: DEXAMETHASONE SOD PHOSPHATE 10 MG/ML 1 ML VIAL IV STA (12:57)
[2021-10-08] MEDS ORDERED: IPRATROPIUM-ALBUTEROL 3 ML NEB INHALATION STA (12:57)
--- NOTE | 2021-10-08 12:59 | ED ---
General Adult HPI - General Chief complaint: Weakness Stated complaint: Dehydration Time Seen by Provider: 10/08/21 12:30 Source: patient Mode of arrival: wheelchair Limitations: no limitations - History of Present Illness Initial comments: Dictation was produced using [employer] dictation software. please excuse any grammatical, word or spelling errors. Chief Complaint: 70-year-old male presents to the emergency department from primary care physician's office for dehydration and malaise. History of Present Illness: 70-year-old male he's been symptomatic of influenza since 6 days ago. Patient states he was diagnosed with influenza 4 days ago after being tested at one of the local urgent cares. He needed to get a coag tests prior to being seen his primary care physician's office. His been symptomatic for approximately 6 days. Unclear outpatient contracted influenza. He was finally seen in the office by Dr. Chambers today. He was redirected to the emergency department for evaluation. Patient states she's been having m alaise, cough and nausea. Denies any abdominal pain. No chest pain. States his cough is productive. He does feel short of breath. No extremity pain. Patient did not receive his influenza vaccine this year. He did not take any Tamiflu. Patient is allowed comorbidities including asthma, coronary artery disease, dyslipidemia and diabetes heart failure. The ROS documented in this emergency department record has been reviewed and confirmed by me. Those systems with pertinent positive or negative responses have been documented in the HPI. All other systems are other negative and/or noncontributory. PHYSICAL EXAM: General Impression: Alert and oriented x3, not in acute distress, malaised HEENT: Normocephalic atraumatic, extra-ocular movements intact, pupils equal and reactive to light bilaterally, dry mucous membranes Cardiovascular: Heart regular rate and rhythm Chest: Able to complete full sentences, no retractions, no tachypnea, diffuse lung wheezing worse on the left compared to the right Abdomen: abdomen soft, non-tender, non-distended, no organomegaly Musculoskeletal: Pulses present and equal in all extremities, no peripheral edema Motor: no focal deficits noted Neurological: CN II-XII grossly intact, no focal motor or sensory deficits noted Skin: Intact with no visualized rashes Psych: Normal affect and mood ED course: 70-year-old male presents to the emergency department for influenza. Laboratory evaluation obtained. Leukopenia 2.7. This is consistent with viral leukopenia. Metabolic panel shows sodium 132, potassium 3.1. Mild acidosis. Elevated renal markers concerning for acute kidney injury. Rest of labs are unremarkable. Chest x-ray shows no infiltrate. Patient be admitted for acute kidney injury. He is given oral potassium. Patient is agreeable for inpatient admission. He is admitted observation. Patient will be admitted to [facility]. EKG interpretation: Ventricular rate 71, sinus rhythm, MI interval 250, QS 129, QTc 448. No MI prolongation, no QTC prolongation, no ST or T-wave changes noted. EKG compared to 05/23/2021 showing no changes. Overall, this EKG is unremarkable - Related Data Home Medications Medication Instructions Recorded Confirmed Cetirizine HCl 10 mg PO DAILY 03/03/14 10/08/21 Nitroglycerin Sl Tabs [Nitrostat] 0.4 mg SUBLINGUAL Q5M PRN 03/03/14 10/08/21 Rosuvastatin Calcium [Crestor] 40 mg PO HS 03/03/14 10/08/21 Ezetimibe [Zetia] 10 mg PO DAILY 05/19/16 10/08/21 Ferrous Sulfate [Iron (65 MG 325 mg PO DAILY 05/19/16 10/08/21 Elemental)] Aspirin EC [Ecotrin Low Dose] 81 mg PO DAILY 05/28/18 10/08/21 Ergocalciferol (Vitamin D2) 50,000 unit PO Q14D 05/28/18 10/08/21 [Vitamin D2] Febuxostat [Uloric] 40 mg PO DAILY 05/28/18 10/08/21 Glucagon Emergency Kit 1 mg IM ONCE PRN 05/28/18 10/08/21 Insulin Aspart (For Pump) [NovoLOG 0.01 unit SQ-PUMP CONTINUOUS 05/28/18 10/08/21 (For Pump)] Vitamin B Complex 1 cap PO DAILY 05/28/18 10/08/21 Isosorbide Mononitrate ER [Imdur] 60 mg PO BID 07/05/18 10/08/21 calcitrioL [Calcitriol] 0.25 mcg PO MOTUWETHFR 07/05/18 10/08/21 Pramipexole [Mirapex] 0.5 mg PO DAILY PRN 05/02/19 10/08/21 Ranolazine [Ranexa] 500 mg PO BID 05/02/19 10/08/21 Propranolol [Inderal] 20 mg PO DAILY 07/28/20 10/08/21 Dulaglutide [Trulicity] 1.5 mg SQ TU 05/23/21 10/08/21 Albuterol Inhaler [Ventolin Hfa 2 puff INHALATION RT-QID PRN 08/10/21 10/08/21 Inhaler] Cholecalciferol [Vitamin D3 (25 25 mcg PO DAILY 08/10/21 10/08/21 Mcg = 1000 Iu)] Fluticasone Propion/Salmeterol 1 puff INHALATION RT-BID 08/10/21 10/08/21 [Wixela 100-50 Inhub] Metoprolol Succinate [Toprol XL] 25 mg PO DAILY 08/10/21 10/08/21 Benzonatate [Benzonatate Perle] 200 mg PO Q8H PRN 10/08/21 10/08/21 Cholestyramine (with Sugar) 4 gm PO BID PRN 10/08/21 10/08/21 [Cholestyramine Packet] Escitalopram [Lexapro] 10 mg PO DAILY 10/08/21 10/08/21 Spironolactone-Hctz 25-25Mg 1 tab PO DAILY 10/08/21 10/08/21 [Aldactazide 25-25Mg] Allergies Allergy/AdvReac Type Severity Reaction Status Date / Time atorvastatin [From Lipitor] AdvReac Unknown Verified 10/08/21 13:17 baclofen AdvReac Unknown Verified 10/08/21 13:17 Review of Systems ROS Statement: Those systems with pertinent positive or pertinent negative responses have been documented in the HPI. ROS Other: All systems not noted in ROS Statement are negative. Past Medical History Past Medical History: Coronary Artery Disease (CAD), Chest Pain / Angina, Heart Failure, Diabetes Mellitus, Hyperlipidemia, Hypertension, Myocardial Infarction (CT), Renal Disease Additional Past Medical History / Comment(s): 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, coronary artery disease, diabetes mellitus, hypertension, chronic renal failure, hyperlipidemia, JEN Last Myocardial Infarction Date:: 03/04/14 History of Any Multi-Drug Resistant Organisms: None Reported Past Surgical History: Cholecystectomy, Heart Catheterization, Heart Catheterization With Stent Additional Past Surgical History / Comment(s): shoulder, hemmroid, cardiac stent in june 2014, eye surgery Past Anesthesia/Blood Transfusion Reactions: No Reported Reaction Additional Past Anesthesia/Blood Transfusion Reaction / Comment(s): Never had a blood transfusion Date of Last Stent Placement:: 05/2014 Past Psychological History: Anxiety Smoking Status: Former smoker Past Alcohol Use History: None Reported Past Drug Use History: None Reported - Past Family History Father Family Medical History: Cancer Additional Family Medical History / Comment(s): bladder cancer Mother Family Medical History: Diabetes Mellitus Additional Family Medical History / Comment(s): Pancreatic CA General Exam Limitations: no limitations Course Vital Signs 10/08/21 10/08/21 10/08/21 12:30 12:45 13:22 Temperature 99 F Pulse Rate 79 80 Pulse Rate [ 98 Client Manager ] Respiratory 18 Rate Blood Pressure 150/70 O2 Sat by Pulse 100 Oximetry 10/08/21 10/08/21 13:33 14:49 Temperature 99.2 F Pulse Rate 73 76 Pulse Rate [ Client Manager ] Respiratory 16 Rate Blood Pressure 142/68 O2 Sat by Pulse 96 Oximetry Medical Decision Making - Lab Data Result diagrams: 10/08/21 13:36 10/08/21 12:45 Lab Results 10/08/21 10/08/21 Range/Units 12:45 13:36 WBC 2.7 L (3.8-10.6) k/uL RBC 4.47 (4.30-5.90) m/uL Hgb 13.6 (13.0-17.5) gm/dL Hct 39.0 (39.0-53.0) % MCV 87.3 (80.0-100.0) fL MCH 30.5 (25.0-35.0) pg MCHC 34.9 (31.0-37.0) g/dL RDW 13.5 (11.5-15.5) % Plt Count 195 (150-450) k/uL MPV 7.9 Sodium 132 L (137-145) mmol/L Potassium 3.1 L (3.5-5.1) mmol/L Chloride 98 (98-107) mmol/L Carbon Dioxide 20 L (22-30) mmol/L Anion Gap 14 mmol/L BUN 73 H (9-20) mg/dL Creatinine 3.58 H (0.66-1.25) mg/dL Est GFR (CKD-EPI)AfAm 19 (>60 ml/min/1.73 sqM) Est GFR (CKD-EPI)NonAf 16 (>60 ml/min/1.73 sqM) Glucose 162 H (74-99) mg/dL Calcium 7.7 L (8.4-10.2) mg/dL Magnesium 2.0 (1.6-2.3) mg/dL Total Bilirubin 0.7 (0.2-1.3) mg/dL AST 44 (17-59) U/L ALT 28 (4-49) U/L Alkaline Phosphatase 92 (38-126) U/L Total Protein 7.7 (6.3-8.2) g/dL Albumin 3.8 (3.5-5.0) g/dL Disposition Clinical Impression: CINDY (acute kidney injury), Influenza Disposition: ADMITTED IP TO THIS HOSP Condition: Fair Referrals: Marlon Valentino MD [Primary Care Provider] - 1-2 days
[2021-10-08 13:30] LABS: Albumin 3.8 g/dL (3.5-5.0); Calcium 7.7 mg/dL (8.4-10.2); Potassium 3.1 mmol/L (3.5-5.1); Total Bilirubin 0.7 mg/dL (0.2-1.3); Total Protein 7.7 g/dL (6.3-8.2)
[2021-10-08 13:41] LABS: HGB 13.6 gm/dL (13.0-17.5); MCH 30.5 pg (25.0-35.0); MCHC 34.9 g/dL (31.0-37.0); MCV 87.3 fL (80.0-100.0); Mean Platelet Volume 7.9; Platelet Count 195 k/uL (150-450); RBC 4.47 m/uL (4.30-5.90); RDW 13.5 % (11.5-15.5); WBC 2.7 k/uL (3.8-10.6)
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
[2021-10-08] MEDS ORDERED: NALOXONE 0.4 MG/ML 1 ML VIAL IV PRN ×2 (14:42→17:18)
[2021-10-08 15:29] LABS: Band Neutrophils % 1 %; Eosinophils # (M) 0.08 k/uL (0-0.7); Lymphocytes # (M) 0.81 k/uL (1.0-4.8); Monocytes # (M) 0.65 k/uL (0-1.0); Neutrophils % (M) 42 %; Nucleated Red Blood Cells 0 /100 WBC (0-0); Total Cells Counted 100
[2021-10-08 15:30] LABS: RBC Morphology Normal
[2021-10-08] MEDS ORDERED: CHOLESTYRAMINE (WITH SUGAR) 4 GM PACKET PO PRN (17:05)
[2021-10-08] MEDS ORDERED: ALBUTEROL HFA INHALER INHALATION PRN (17:05)
[2021-10-08] MEDS ORDERED: NITROGLYCERIN SL TABS 0.4 MG TAB SUBLINGUAL PRN (17:05)
[2021-10-08] MEDS ORDERED: Insulin Aspart (For Pump) 100 UNIT/ML VIAL SQ-PUMP SCH (17:15)
[2021-10-08] MEDS ORDERED: MELATONIN 3 MG TABLET PO PRN (17:18)
[2021-10-08] MEDS ORDERED: ONDANSETRON 4 MG/2 ML VIAL IVP PRN (17:18)
[2021-10-08] MEDS ORDERED: ACETAMINOPHEN TAB 325 MG TAB PO PRN (17:18)
--- NOTE | 2021-10-08 18:37 | P.HPIM ---
History of Present Illness H&P Date: 10/08/21 Chief Complaint: Generalized weakness with cough and exertional dyspnea 70-year-old male with past medical history significant for chronic kidney disease stage IV, coronary disease, chronic diastolic CHF, hypertension, dyslipidemia, insulin-dependent type 2 diabetes mellitus on insulin pump obstructive sleep apnea on CPAP. The patient presented to the emergency room from his family care physician office. He has been symptomatic of influenza since 6 days ago. Patient states he was diagnosed with influenza 4 days ago after being tested at one of the local urgent cares. He needed to get a coag tests prior to being seen his primary care physician's office. His been symptomatic for approximately 6 days. Unclear outpatient contracted influenza. He was finally seen in the office by Dr. Chambers today. He was redirected to the emergency department for evaluation. Patient states she's been having malaise, cough and nausea. Denies any abdominal pain. No chest pain. Patient has been complaining of worsening shortness of breath on exertion was intr actable cough for the past few days. Chest x-ray history was negative for pneumonia. Patient did not receive his influenza vaccine this year. He did not take any Tamiflu. Review of Systems All 14 review of systems evaluated and all negative except for above. Past Medical History Past Medical History: Coronary Artery Disease (CAD), Chest Pain / Angina, Heart Failure, Diabetes Mellitus, Hyperlipidemia, Hypertension, Myocardial Infarction ([place]), Renal Disease Additional Past Medical History / Comment(s): 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, coronary artery disease, diabetes mellitus, hypertension, chronic renal failure, hyperlipidemia, JEN Last Myocardial Infarction Date:: 03/04/14 History of Any Multi-Drug Resistant Organisms: None Reported Past Surgical History: Cholecystectomy, Heart Catheterization, Heart Catheterization With Stent Additional Past Surgical History / Comment(s): shoulder, hemmroid, cardiac stent in june 2014, eye surgery Past Anesthesia/Blood Transfusion Reactions: No Reported Reaction Additional Past Anesthesia/Blood Transfusion Reaction / Comment(s): Never had a blood transfusion Date of Last Stent Placement:: 05/2014 Past Psychological History: Anxiety Smoking Status: Former smoker Past Alcohol Use History: None Reported Past Drug Use History: None Reported - Past Family History Father Family Medical History: Cancer Additional Family Medical History / Comment(s): bladder cancer Mother Family Medical History: Diabetes Mellitus Additional Family Medical History / Comment(s): Pancreatic CA Medications and Allergies Home Medications Medication Instructions Recorded Confirmed Type Cetirizine HCl 10 mg PO DAILY 03/03/14 10/08/21 History Nitroglycerin Sl Tabs [Nitrostat] 0.4 mg SUBLINGUAL Q5M PRN 03/03/14 10/08/21 History Rosuvastatin Calcium [Crestor] 40 mg PO HS 03/03/14 10/08/21 History Ezetimibe [Zetia] 10 mg PO DAILY 05/19/16 10/08/21 History Ferrous Sulfate [Iron (65 MG 325 mg PO DAILY 05/19/16 10/08/21 History Elemental)] Aspirin EC [Ecotrin Low Dose] 81 mg PO DAILY 05/28/18 10/08/21 History Ergocalciferol (Vitamin D2) 50,000 unit PO Q14D 05/28/18 10/08/21 History [Vitamin D2] Febuxostat [Uloric] 40 mg PO DAILY 05/28/18 10/08/21 History Glucagon Emergency Kit 1 mg IM ONCE PRN 05/28/18 10/08/21 History Insulin Aspart (For Pump) [NovoLOG 0.01 unit SQ-PUMP CONTINUOUS 05/28/18 10/08/21 History (For Pump)] Vitamin B Complex 1 cap PO DAILY 05/28/18 10/08/21 History Isosorbide Mononitrate ER [Imdur] 60 mg PO BID 07/05/18 10/08/21 History calcitrioL [Calcitriol] 0.25 mcg PO MOTUWETHFR 07/05/18 10/08/21 History Pramipexole [Mirapex] 0.5 mg PO DAILY PRN 05/02/19 10/08/21 History Ranolazine [Ranexa] 500 mg PO BID 05/02/19 10/08/21 History Propranolol [Inderal] 20 mg PO DAILY 07/28/20 10/08/21 History Dulaglutide [Trulicity] 1.5 mg SQ TU 05/23/21 10/08/21 History Albuterol Inhaler [Ventolin Hfa 2 puff INHALATION RT-QID PRN 08/10/21 10/08/21 History Inhaler] Cholecalciferol [Vitamin D3 (25 25 mcg PO DAILY 08/10/21 10/08/21 History Mcg = 1000 Iu)] Fluticasone Propion/Salmeterol 1 puff INHALATION RT-BID 08/10/21 10/08/21 History [Wixela 100-50 Inhub] Benzonatate [Benzonatate Perle] 200 mg PO Q8H PRN 10/08/21 10/08/21 History Escitalopram [Lexapro] 10 mg PO DAILY 10/08/21 10/08/21 History Spironolactone-Hctz 25-25Mg 1 tab PO DAILY 10/08/21 10/08/21 History [Aldactazide 25-25Mg] Allergies Allergy/AdvReac Type Severity Reaction Status Date / Time atorvastatin [From Lipitor] AdvReac Unknown Verified 10/08/21 13:17 baclofen AdvReac Unknown Verified 10/08/21 13:17 Physical Exam Vitals: Vital Signs Temp Pulse Pulse Resp BP Pulse Ox 10/08/21 14:49 99.2 F 76 16 142/68 96 10/08/21 13:33 73 10/08/21 13:22 80 10/08/21 12:45 98 10/08/21 12:30 99 F 79 18 150/70 100 Intake and Output 10/08/21 10/08/21 10/08/21 06:59 14:59 22:59 Other: Weight 101.151 kg General: non toxic, no distress, appears at stated age Derm: warm, dry Head: atraumatic, normocephalic, symmetric Eyes: EOMI, no lid lag, anicteric sclera Mouth: no lip lesion, mucus membranes moist Cardiovascular: S1S2 reg, no murmur, positive posterior tibial pulse bilateral, Lungs: Diminished air entry bilaterally with bilateral wheezing Abdominal: soft, nontender to palpation, no guarding, no appreciable organomegaly Ext: no gross muscle atrophy, no edema, no contractures Neuro: CN II-XI grossly intact, no focal neuro deficits Psych: Alert, oriented, appropriate affect Results CBC & Chem 7: 10/08/21 13:36 10/08/21 12:45 Labs: Abnormal Lab Results - Last 24 Hours (Table) 10/08/21 10/08/21 Range/Units 12:45 13:36 WBC 2.7 L (3.8-10.6) k/uL Neutrophils # (Manual) 1.10 L (1.3-7.7) k/uL Lymphocytes # (Manual) 0.81 L (1.0-4.8) k/uL Sodium 132 L (137-145) mmol/L Potassium 3.1 L (3.5-5.1) mmol/L Carbon Dioxide 20 L (22-30) mmol/L BUN 73 H (9-20) mg/dL Creatinine 3.58 H (0.66-1.25) mg/dL Glucose 162 H (74-99) mg/dL Calcium 7.7 L (8.4-10.2) mg/dL Assessment and Plan Assessment: Assessment and plan: #Acute influenza infection #Acute viral bronchitis -Patient started on IV steroids -Azithromycin 500 mg daily -Moderate QTc interval on on azithromycin and Celexa #Acute kidney injury -Most likely secondary to acute illness and decreased oral intake -IV fluids -Hold diuretics patient on spironolactone and hydrochlorothiazide -Rn Intensive Care Unit consulted #Chronic kidney disease stage IVSecondary to diabetic nephropathy #Acute hyponatremia -Secondary to diureti and Levaquin thiazidecs -IV fluids #Hypokalemia -Replace per nephrology #Hypertension -Resume propranolol #Coronary disease artery -Patient denies any chest pain or -Resume beta narcisa, aspirin Zetia,Imdur and Ranexa #Insulin-dependent type 2 diabetes mellitus -Resume his insulin pump -Check A1c -Accu-Chek before meals and at bedtime #Chronic gout -Resume Uloric and discharge #Depression -Resume Celexa #obesity BMI 33 #Obstructive sleep apnea CPAP #DVT prophylaxis subcutaneous heparin
[2021-10-08] MEDS: INSPUCOR MISCELLANE PRN (19:10)
[2021-10-08 19:12] LABS: Glucose,Whole Blood 345 mg/dL (75-99)
[2021-10-08] MEDS: methylPREDNISolone SOD SUCCI 40 MG/ML 1 ML VIAL IV SCH (19:18)
[2021-10-08] MEDS: SODIUM CHLORIDE 0.9% 1,000 ML IV SCH (19:20)
[2021-10-08] MEDS: HEPARIN SODIUM,PORCINE/PF 5,000 UNIT/0.5 ML SYRINGE SQ SCH (19:20)
[2021-10-08] MEDS: AZITHROMYCIN 500 MG in SODIUM CHLORIDE 0.9% 250 ML IVPB SCH (19:21)
[2021-10-08] MEDS: SYMBICORT 80-4.5 MCG INHALER INHALATION SCH (19:46)
[2021-10-08] MEDS: IPRATROPIUM-ALBUTEROL 3 ML NEB INHALATION SCH (19:46)
[2021-10-08] MEDS: PRAMIPEXOLE 0.5 MG TAB PO PRN (20:46)
[2021-10-08] MEDS: ATORVASTATIN 80 MG TAB PO SCH (20:46)
[2021-10-08] MEDS: ISOSORBIDE MONONITRATE ER 60 MG TAB.ER.24H PO SCH (20:47)
[2021-10-08] MEDS: RANOLAZINE 500 MG TAB.ER.12H PO SCH (20:47)
[2021-10-09] MEDS: methylPREDNISolone SOD SUCCI 40 MG/ML 1 ML VIAL IV SCH ×4 (02:04→23:30)
[2021-10-09] MEDS: HEPARIN SODIUM,PORCINE/PF 5,000 UNIT/0.5 ML SYRINGE SQ SCH ×4 (02:05→23:30)
[2021-10-09] MEDS: SODIUM CHLORIDE 0.9% 1,000 ML IV SCH ×3 (02:05→20:04)
[2021-10-09 02:10] LABS: Glucose,Whole Blood 432 mg/dL (75-99)
[2021-10-09] MEDS: INSPUCOR MISCELLANE PRN ×3 (02:21→22:30)
[2021-10-09] MEDS: BENZONATATE 100 MG CAP PO PRN ×2 (04:08→12:05)
[2021-10-09 07:04] LABS: Glucose,Whole Blood 226 mg/dL (75-99)
[2021-10-09] MEDS: SYMBICORT 80-4.5 MCG INHALER INHALATION SCH ×2 (07:56→19:44)
[2021-10-09] MEDS: IPRATROPIUM-ALBUTEROL 3 ML NEB INHALATION SCH ×4 (07:56→19:44)
[2021-10-09] MEDS ORDERED: POTASSIUM CHLORIDE ER 20 MEQ TAB.ER PO STA (08:37)
[2021-10-09] MEDS: ASPIRIN 81 MG PO SCH (08:43)
[2021-10-09] MEDS: LORATADINE 10 MG TAB PO SCH (08:44)
[2021-10-09] MEDS: ISOSORBIDE MONONITRATE ER 60 MG TAB.ER.24H PO SCH ×2 (08:44→20:03)
[2021-10-09] MEDS: ESCITALOPRAM 10 MG TAB PO SCH (08:44)
[2021-10-09] MEDS: EZETIMIBE 10 MG TAB PO SCH (08:44)
[2021-10-09] MEDS: CHOLECALCIFEROL 25 MCG (1000 IU) TABLET PO SCH (08:44)
[2021-10-09] MEDS: RANOLAZINE 500 MG TAB.ER.12H PO SCH ×2 (08:44→20:03)
[2021-10-09] MEDS: PROPRANOLOL 20 MG TAB PO SCH (08:44)
[2021-10-09] MEDS: FERROUS SULFATE 325 MG TAB PO SCH (08:44)
[2021-10-09] MEDS ORDERED: METOPROLOL SUCCINATE (ER) 25 MG TAB.ER.24H PO SCH (09:00)
[2021-10-09] MEDS ORDERED: allopurinoL 100 MG TAB PO SCH (09:00)
[2021-10-09] MEDS: NON FORMULARY DRUG (Vitamin B Complex [Vitamin B Complex] 1 EACH Capsule) PO SCH (10:43)
[2021-10-09 11:33] LABS: Glucose,Whole Blood 194 mg/dL (75-99)
[2021-10-09 11:50] LABS: HCT 35.4 % (39.6-50.0); HGB 11.6 g/dL (13.0-17.0); MCH 29.1 pg (27.0-32.0); MCHC 32.8 g/dL (32.0-37.0); MCV 88.9 fL (80.0-97.0); NRBC Per 100 WBC 0 /100 WBCS (0.0-0.0); Platelet Count 156 X 10*3/uL (140-440); RBC 3.98 X 10*6/uL (4.40-5.60); RDW 12.7 % (11.5-14.5); WBC 2.54 X 10*3/uL (4.50-10.00)
--- NOTE | 2021-10-09 12:02 | P.CNPUL ---
History of Present Illness Consult date: 10/09/21 Requesting physician: Christelle Barroso Chief complaint: Generalized weakness History of present illness: This a very pleasant 70-year-old male patient who follows with Dr. Vasquez as his primary care provider. He has a history of coronary artery disease with previous stent placement, anxiety, diabetes mellitus with an insulin pump, chronic kidney disease, hyperlipidemia, hypertension, mild intermittent chronic bronchial asthma, obstructive sleep apnea maintained on CPAP He has a greater than 1 week history of weakness, cough, nausea, diarrhea, headache. He was diagnosed with influenza 4-5 days prior to his arrival to the emergency room yesterday. He tested negative for CoVID and was seen was seen by his PCP who sent him to the ER for further evaluation. Chest x-ray revealed no acute pulmonary process. White count 2.7. Hemoglobin 13.6. Platelets 195. Sodium 132. Potassium 3.1. Bicarb 20. BUN 73. Creatinine 3.58. Glucose 162. AST 44. ALT 28. Pro-calcitonin 0.57. He's been initiated on Tessalon Perles, Symbicort, DuoNeb inhalations, IV Solu-Medrol, antibiotics in the form of azithromycin. He is seen today in consultation in the regular medical floor. He is currently sitting up in bed. Awake and alert in no acute distress. He is feeling a bit better today compared to yesterday. Still with quite a bit of fatigue and weakness. Mucus normal saline running 100 ML's per hour. He did eat breakfast. Review of Systems REVIEW OF SYSTEMS: CONSTITUTIONAL: Denies weakness, fatigue. Denies any recent significant weight loss or weight gain. EYES: Denies change in vision. EARS, NOSE, MOUTH, THROAT: Denies headaches, denies sore throat. CARDIOVASCULAR: Denies chest pain, palpitations or syncopal episodes. RESPIRATORY: Positive for dry nonproductive cough cough, congestion no hemoptysis. GASTROINTESTINAL: Positive for nausea, diarrhea GENITOURINARY: Denies hematuria, denies infections. MUSKULOSKELETAL: Denies pain, denies swelling. INTEGUMENTARY: Denies rash, denies eczema. NEUROLOGICAL: Denies recent memory loss, no recent seizure activity. PSYCHIATRIC: Denies anxiety, denies depression. HEMATOLOGIC/LYMPHATIC: Denies anemia, denies enlarged lymph nodes. Past Medical History Past Medical History: Coronary Artery Disease (CAD), Chest Pain / Angina, Heart Failure, Diabetes Mellitus, Hyperlipidemia, Hypertension, Myocardial Infarction ([place]), Renal Disease Additional Past Medical History / Comment(s): 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, coronary artery disease, diabetes mellitus, hypertension, chronic renal failure, hyperlipidemia, JEN Last Myocardial Infarction Date:: 03/04/14 History of Any Multi-Drug Resistant Organisms: None Reported Past Surgical History: Cholecystectomy, Heart Catheterization, Heart Catheterization With Stent Additional Past Surgical History / Comment(s): shoulder, hemmroid, cardiac stent in june 2014, eye surgery Past Anesthesia/Blood Transfusion Reactions: No Reported Reaction Additional Past Anesthesia/Blood Transfusion Reaction / Comment(s): Never had a blood transfusion Date of Last Stent Placement:: 05/2014 Past Psychological History: Anxiety Smoking Status: Former smoker Past Alcohol Use History: None Reported Past Drug Use History: None Reported - Past Family History Father Family Medical History: Cancer Additional Family Medical History / Comment(s): bladder cancer Mother Family Medical History: Diabetes Mellitus Additional Family Medical History / Comment(s): Pancreatic CA Medications and Allergies Home Medications Medication Instructions Recorded Confirmed Type Cetirizine HCl 10 mg PO DAILY 03/03/14 10/08/21 History Nitroglycerin Sl Tabs [Nitrostat] 0.4 mg SUBLINGUAL Q5M PRN 03/03/14 10/08/21 History Rosuvastatin Calcium [Crestor] 40 mg PO HS 03/03/14 10/08/21 History Ezetimibe [Zetia] 10 mg PO DAILY 05/19/16 10/08/21 History Ferrous Sulfate [Iron (65 MG 325 mg PO DAILY 05/19/16 10/08/21 History Elemental)] Aspirin EC [Ecotrin Low Dose] 81 mg PO DAILY 05/28/18 10/08/21 History Ergocalciferol (Vitamin D2) 50,000 unit PO Q14D 05/28/18 10/08/21 History [Vitamin D2] Febuxostat [Uloric] 40 mg PO DAILY 05/28/18 10/08/21 History Glucagon Emergency Kit 1 mg IM ONCE PRN 05/28/18 10/08/21 History Insulin Aspart (For Pump) [NovoLOG 0.01 unit SQ-PUMP CONTINUOUS 05/28/18 10/08/21 History (For Pump)] Vitamin B Complex 1 cap PO DAILY 05/28/18 10/08/21 History Isosorbide Mononitrate ER [Imdur] 60 mg PO BID 07/05/18 10/08/21 History calcitrioL [Calcitriol] 0.25 mcg PO MOTUWETHFR 07/05/18 10/08/21 History Pramipexole [Mirapex] 0.5 mg PO DAILY PRN 05/02/19 10/08/21 History Ranolazine [Ranexa] 500 mg PO BID 05/02/19 10/08/21 History Propranolol [Inderal] 20 mg PO DAILY 07/28/20 10/08/21 History Dulaglutide [Trulicity] 1.5 mg SQ TU 05/23/21 10/08/21 History Albuterol Inhaler [Ventolin Hfa 2 puff INHALATION RT-QID PRN 08/10/21 10/08/21 History Inhaler] Cholecalciferol [Vitamin D3 (25 25 mcg PO DAILY 08/10/21 10/08/21 History Mcg = 1000 Iu)] Fluticasone Propion/Salmeterol 1 puff INHALATION RT-BID 08/10/21 10/08/21 History [Wixela 100-50 Inhub] Benzonatate [Benzonatate Perle] 200 mg PO Q8H PRN 10/08/21 10/08/21 History Escitalopram [Lexapro] 10 mg PO DAILY 10/08/21 10/08/21 History Spironolactone-Hctz 25-25Mg 1 tab PO DAILY 10/08/21 10/08/21 History [Aldactazide 25-25Mg] Allergies Allergy/AdvReac Type Severity Reaction Status Date / Time atorvastatin [From Lipitor] AdvReac Unknown Verified 10/08/21 13:17 baclofen AdvReac Unknown Verified 10/08/21 13:17 Physical Exam Vitals: Vital Signs Temp Pulse Pulse Resp BP BP Pulse Ox 10/09/21 11:38 80 10/09/21 11:28 80 10/09/21 08:12 80 10/09/21 08:00 17 10/09/21 07:57 80 10/09/21 07:00 98.3 F 66 18 134/66 98 10/09/21 02:04 97.4 F L 64 15 135/60 97 10/08/21 22:00 16 10/08/21 21:52 97.6 F 77 16 117/61 95 10/08/21 20:59 97.8 F 78 20 137/63 97 10/08/21 19:57 80 10/08/21 19:49 77 10/08/21 14:49 99.2 F 76 16 142/68 96 10/08/21 13:33 73 10/08/21 13:22 80 10/08/21 12:45 98 10/08/21 12:30 99 F 79 18 150/70 100 Intake and Output 10/08/21 10/09/21 10/09/21 22:59 06:59 14:59 Intake Total 118 Balance 118 Intake: Oral 118 Other: # Voids 3 2 Weight 101.151 kg GENERAL EXAM: Alert, very pleasant 70-year-old gentleman, on room air, comfortable in no apparent distress. HEAD: Normocephalic. EYES: Normal reaction of pupils, equal size. NOSE: Clear with pink turbinates. THROAT: No erythema or exudates. NECK: No masses, no JVD. CHEST: No chest wall deformity. LUNGS: Equal air entry with no crackles, wheeze, rhonchi or dullness. CVS: S1 and S2 normal with no audible murmur, regular rhythm. ABDOMEN: No hepatosplenomegaly, normal bowel sounds, no guarding or rigidity. SPINE: No scoliosis or deformity SKIN: No rashes CENTRAL NERVOUS SYSTEM: No focal deficits, tone is normal in all 4 extremities. EXTREMITIES: There is no peripheral edema. No clubbing, no cyanosis. Peripheral pulses are intact. Results - Laboratory Findings CBC and BMP: 10/08/21 13:36 10/08/21 12:45 Abnormal lab findings: Abnormal Labs 10/08/21 10/08/21 10/08/21 12:45 12:45 13:36 WBC 2.7 L Neutrophils # (Manual) 1.10 L Lymphocytes # (Manual) 0.81 L Sodium 132 L Potassium 3.1 L Carbon Dioxide 20 L BUN 73 H Creatinine 3.58 H Glucose 162 H POC Glucose (mg/dL) Calcium 7.7 L Procalcitonin 0.57 H 10/08/21 10/09/21 10/09/21 19:10 02:08 06:55 WBC Neutrophils # (Manual) Lymphocytes # (Manual) Sodium Potassium Carbon Dioxide BUN Creatinine Glucose POC Glucose (mg/dL) 345 H 432 H 226 H Calcium Procalcitonin 10/09/21 11:32 WBC Neutrophils # (Manual) Lymphocytes # (Manual) Sodium Potassium Carbon Dioxide BUN Creatinine Glucose POC Glucose (mg/dL) 194 H Calcium Procalcitonin - Diagnostic Findings Chest x-ray: image reviewed Assessment and Plan Assessment: 1 Acute influenza infection with generalized weakness and fatigue it patient tested positive for influenza 5-6 days prior to arriving to the ER yesterday. Outside the window for Tamiflu. CoVID screen reported as negative. 2 Acute on chronic renal failure secondary to above 3 History of coronary disease with previous stent placement 4 Hyperlipidemia 5 Hypertension 6 Diabetes Mellitus with Insulin Pump 7 Obstructive Sleep Apnea, on CPAP in the Outpatient Setting, Not Fully Compliant 8 Chronic Renal Failure 9 Former Smoker 10 Mild Intermittent Chronic Bronchial Asthma Plan: The patient was seen and evaluated Chest x-ray and labs reviewed Outside the window for Tamiflu Continue IV hydration Continue bronchodilators, IV Solu-Medrol Heparin for DVT prophylaxis Home once cleared by medicine I have personally seen and examined the patient, performed the documentation and the assessment and plan as written. Number of minutes spent on the visit: 20.
[2021-10-09] MEDS: INSULIN ASPART (NovoLOG) 100 UNIT/ML VIAL SQ PRN (13:20)
--- NOTE | 2021-10-09 14:37 | P.NPCON ---
History of Present Illness - Reason for Consult chronic renal failure - History of Present Illness Patient is a 70-year-old male with history of CK D stage IV with baseline creatinine about 3 mg/dL but as low as 2.4 on 08/14/2021. Etiology is diabetic kidney disease. He was admitted to the hospital with complaints of upper respiratory tract symptoms and was diagnosed with influenza 4 days ago Patient denies any significant abdominal pain diarrhea or vomiting. He has had some cough. No significant urinary symptoms. Serum creatinine at 3.58 yesterday. No labs available today Voiding Review of Systems As per HPI Past Medical History Past Medical History: Coronary Artery Disease (CAD), Chest Pain / Angina, Heart Failure, Diabetes Mellitus, Hyperlipidemia, Hypertension, Myocardial Infarction ([place]), Renal Disease Additional Past Medical History / Comment(s): 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, coronary artery disease, diabetes mellitus, hypertension, chronic renal failure, hyperlipidemia, JEN Last Myocardial Infarction Date:: 03/04/14 History of Any Multi-Drug Resistant Organisms: None Reported Past Surgical History: Cholecystectomy, Heart Catheterization, Heart Catheterization With Stent Additional Past Surgical History / Comment(s): shoulder, hemmroid, cardiac stent in june 2014, eye surgery Past Anesthesia/Blood Transfusion Reactions: No Reported Reaction Additional Past Anesthesia/Blood Transfusion Reaction / Comment(s): Never had a blood transfusion Date of Last Stent Placement:: 05/2014 Past Psychological History: Anxiety Smoking Status: Former smoker Past Alcohol Use History: None Reported Past Drug Use History: None Reported - Past Family History Father Family Medical History: Cancer Additional Family Medical History / Comment(s): bladder cancer Mother Family Medical History: Diabetes Mellitus Additional Family Medical History / Comment(s): Pancreatic CA Medications and Allergies Home Medications Medication Instructions Recorded Confirmed Type Cetirizine HCl 10 mg PO DAILY 03/03/14 10/08/21 History Nitroglycerin Sl Tabs [Nitrostat] 0.4 mg SUBLINGUAL Q5M PRN 03/03/14 10/08/21 History Rosuvastatin Calcium [Crestor] 40 mg PO HS 03/03/14 10/08/21 History Ezetimibe [Zetia] 10 mg PO DAILY 05/19/16 10/08/21 History Ferrous Sulfate [Iron (65 MG 325 mg PO DAILY 05/19/16 10/08/21 History Elemental)] Aspirin EC [Ecotrin Low Dose] 81 mg PO DAILY 05/28/18 10/08/21 History Ergocalciferol (Vitamin D2) 50,000 unit PO Q14D 05/28/18 10/08/21 History [Vitamin D2] Febuxostat [Uloric] 40 mg PO DAILY 05/28/18 10/08/21 History Glucagon Emergency Kit 1 mg IM ONCE PRN 05/28/18 10/08/21 History Insulin Aspart (For Pump) [NovoLOG 0.01 unit SQ-PUMP CONTINUOUS 05/28/18 10/08/21 History (For Pump)] Vitamin B Complex 1 cap PO DAILY 05/28/18 10/08/21 History Isosorbide Mononitrate ER [Imdur] 60 mg PO BID 07/05/18 10/08/21 History calcitrioL [Calcitriol] 0.25 mcg PO MOTUWETHFR 07/05/18 10/08/21 History Pramipexole [Mirapex] 0.5 mg PO DAILY PRN 05/02/19 10/08/21 History Ranolazine [Ranexa] 500 mg PO BID 05/02/19 10/08/21 History Propranolol [Inderal] 20 mg PO DAILY 07/28/20 10/08/21 History Dulaglutide [Trulicity] 1.5 mg SQ TU 05/23/21 10/08/21 History Albuterol Inhaler [Ventolin Hfa 2 puff INHALATION RT-QID PRN 08/10/21 10/08/21 History Inhaler] Cholecalciferol [Vitamin D3 (25 25 mcg PO DAILY 08/10/21 10/08/21 History Mcg = 1000 Iu)] Fluticasone Propion/Salmeterol 1 puff INHALATION RT-BID 08/10/21 10/08/21 History [Wixela 100-50 Inhub] Benzonatate [Benzonatate Perle] 200 mg PO Q8H PRN 10/08/21 10/08/21 History Escitalopram [Lexapro] 10 mg PO DAILY 10/08/21 10/08/21 History Spironolactone-Hctz 25-25Mg 1 tab PO DAILY 10/08/21 10/08/21 History [Aldactazide 25-25Mg] Allergies Allergy/AdvReac Type Severity Reaction Status Date / Time atorvastatin [From Lipitor] AdvReac Unknown Verified 10/08/21 13:17 baclofen AdvReac Unknown Verified 10/08/21 13:17 Physical Exam Vitals: Vital Signs Temp Pulse Pulse Resp BP BP Pulse Ox 10/09/21 14:12 97.7 F 61 18 115/61 98 10/09/21 11:38 80 10/09/21 11:28 80 10/09/21 08:12 80 10/09/21 08:00 17 10/09/21 07:57 80 10/09/21 07:00 98.3 F 66 18 134/66 98 10/09/21 02:04 97.4 F L 64 15 135/60 97 10/08/21 22:00 16 10/08/21 21:52 97.6 F 77 16 117/61 95 10/08/21 20:59 97.8 F 78 20 137/63 97 10/08/21 19:57 80 10/08/21 19:49 77 10/08/21 14:49 99.2 F 76 16 142/68 96 Intake and Output 10/08/21 10/09/21 10/09/21 22:59 06:59 14:59 Intake Total 236 Balance 236 Intake: Oral 236 Other: # Voids 3 2 3 Weight 101.151 kg Awake comfortable. Alert oriented 3. Examination of the heart S1 and S2 Examination lungs bilateral breath sounds are heard Abdomen is soft nontender Examination lower extremity shows no significant edema Results - Lab Results Most recent lab results Calcium 7.7 mg/dL (8.4-10.2) L 10/08/21 12:45 Magnesium 2.0 mg/dL (1.6-2.3) 10/08/21 12:45 10/09/21 07:15 10/08/21 12:45 Assessment and Plan Assessment: 1. Acute kidney injury nonoliguric. Mostly ATN and prerenal. Maintained on IV fluids. Repeat labs today 2. Chronic kidney disease NKF stage IV secondary to diabetic kidney disease with baseline creatinine around 3 mg/dL 4. Influenza with no actual test available at this time. 5. Hypokalemia, will replace if still low today 6. Chronic gout 7. Type 2 diabetes insulin-dependent Plan: Continue IV fluids Continue calcitriol Check labs today and then again in a.m.
[2021-10-09 17:00] LABS: Basophils # (A) 0.01 X 10*3/uL (0.00-0.10); Basophils % (A) 0.4 %; Eosinophils # (A) 0 X 10*3/uL (0.04-0.35); Eosinophils % (A) 0 %; Immature Grans, Automated 1.6 %; Lymphocytes # (A) 0.46 X 10*3/uL (0.90-5.00); Lymphocytes % (A) 18.5 %; Neutrophils # (A) 1.87 X 10*3/uL (1.80-7.70); Neutrophils % (A) 75.5 %
[2021-10-09 17:13] LABS: Glucose,Whole Blood 137 mg/dL (75-99)
[2021-10-09] MEDS: AZITHROMYCIN 500 MG in SODIUM CHLORIDE 0.9% 250 ML IVPB SCH (17:19)
[2021-10-09 18:48] LABS: ALT 24 U/L (10-49); AST 36 U/L (14-35); Albumin 3.5 g/dL (3.8-4.9); Albumin/Globulin Ratio 1.03 (1.60-3.17); Alkaline Phosphatase 85 U/L (41-126); BUN/Creat Ratio 19.59 Ratio (12.00-20.00); Blood Urea Nitrogen 72.5 mg/dL (9.0-27.0); Carbon Dioxide 10.6 mmol/L (20.0-27.5); Chloride 102 mmol/L (96-109); Globulin 3.4 g/dL (1.6-3.3); Glucose 215 mg/dL (70-110); Magnesium 2.3 mg/dL (1.5-2.4); Non-African American GFR(CKD) 15.5 (60.0-200.0); Potassium 3.5 mmol/L (3.5-5.5); Sodium 135 mmol/L (135-145); Total Bilirubin <0.15 mg/dL (0.30-1.20); Total Protein 6.9 g/dL (6.2-8.2)
[2021-10-09] MEDS: ATORVASTATIN 80 MG TAB PO SCH (20:03)
[2021-10-09 20:25] LABS: Glucose,Whole Blood 141 mg/dL (75-99)
[2021-10-10] MEDS: PRAMIPEXOLE 0.5 MG TAB PO PRN (02:56)
[2021-10-10] MEDS: BENZONATATE 100 MG CAP PO PRN (02:57)
[2021-10-10] MEDS: SODIUM CHLORIDE 0.9% 1,000 ML IV SCH (04:47)
[2021-10-10 06:55] LABS: Glucose,Whole Blood 150 mg/dL (75-99)
[2021-10-10] MEDS: SYMBICORT 80-4.5 MCG INHALER INHALATION SCH (06:56)
[2021-10-10] MEDS: IPRATROPIUM-ALBUTEROL 3 ML NEB INHALATION SCH ×2 (06:56→10:43)
[2021-10-10 07:34] VITALS: RESP 18
[2021-10-10] MEDS: methylPREDNISolone SOD SUCCI 40 MG/ML 1 ML VIAL IV SCH (07:47)
[2021-10-10] MEDS: HEPARIN SODIUM,PORCINE/PF 5,000 UNIT/0.5 ML SYRINGE SQ SCH (07:47)
[2021-10-10] MEDS: ISOSORBIDE MONONITRATE ER 60 MG TAB.ER.24H PO SCH (07:48)
[2021-10-10] MEDS: RANOLAZINE 500 MG TAB.ER.12H PO SCH (07:48)
[2021-10-10] MEDS: CHOLECALCIFEROL 25 MCG (1000 IU) TABLET PO SCH (07:48)
[2021-10-10] MEDS: PROPRANOLOL 20 MG TAB PO SCH (07:48)
[2021-10-10] MEDS: EZETIMIBE 10 MG TAB PO SCH (07:48)
[2021-10-10] MEDS: FERROUS SULFATE 325 MG TAB PO SCH (07:49)
[2021-10-10] MEDS: ESCITALOPRAM 10 MG TAB PO SCH (07:49)
[2021-10-10] MEDS: LORATADINE 10 MG TAB PO SCH (07:49)
[2021-10-10 08:38] LABS: Basophils # (A) 0.02 X 10*3/uL (0.00-0.10); Basophils % (A) 0.3 %; Eosinophils # (A) 0 X 10*3/uL (0.04-0.35); Eosinophils % (A) 0 %; HCT 34.1 % (39.6-50.0); HGB 11.2 g/dL (13.0-17.0); Immature Grans, Automated 1.9 %; Lymphocytes # (A) 0.82 X 10*3/uL (0.90-5.00); MCH 28.9 pg (27.0-32.0); MCHC 32.8 g/dL (32.0-37.0); MCV 87.9 fL (80.0-97.0); Mean Platelet Volume 11.1 fL (9.5-12.2); Monocytes # (A) 0.35 X 10*3/uL (0.20-1.00); Monocytes % (A) 5.1 %; NRBC Per 100 WBC 0 /100 WBCS (0.0-0.0); Neutrophils # (A) 5.53 X 10*3/uL (1.80-7.70); Neutrophils % (A) 80.7 %; Platelet Count 201 X 10*3/uL (140-440); RBC 3.88 X 10*6/uL (4.40-5.60); RDW 13.1 % (11.5-14.5); WBC 6.85 X 10*3/uL (4.50-10.00)
[2021-10-10 08:56] LABS: Magnesium 2.4 mg/dL (1.5-2.4)
[2021-10-10 08:58] LABS: ALT 31 U/L (10-49); AST 49 U/L (14-35); African American GFR (CKD) 23.1 (60.0-200.0); Albumin 3.6 g/dL (3.8-4.9); Albumin/Globulin Ratio 1.13 (1.60-3.17); Alkaline Phosphatase 78 U/L (41-126); Blood Urea Nitrogen 74.4 mg/dL (9.0-27.0); Calcium 8.1 mg/dL (8.7-10.3); Carbon Dioxide 15.7 mmol/L (20.0-27.5); Chloride 105 mmol/L (96-109); Globulin 3.2 g/dL (1.6-3.3); Glucose 166 mg/dL (70-110); Potassium 3.9 mmol/L (3.5-5.5); Sodium 135 mmol/L (135-145); Total Bilirubin <0.15 mg/dL (0.30-1.20); Total Protein 6.8 g/dL (6.2-8.2)
--- NOTE | 2021-10-10 10:11 | P.PN ---
Subjective Progress Note Date: 10/09/21 Patient was seen and examined at the bedside. He denies any chest pain. Shortness of breath is improving with IV steroids. Kidney function is worse nephrology is following. Otherwise no acute reported changes overnight. Objective - Vital Signs Vital signs: Vital Signs Temp 98 F 10/10/21 07:00 Pulse 69 10/10/21 07:07 Resp 18 10/10/21 07:00 BP 155/69 10/10/21 07:00 Pulse Ox 99 10/10/21 07:00 Intake & Output 10/09/21 10/10/21 10/10/21 18:59 06:59 18:59 Intake Total 354 Balance 354 Intake: Oral 354 Other: # Voids 3 2 - Exam General: non toxic, no distress, appears at stated age Derm: warm, dry Head: atraumatic, normocephalic, symmetric Eyes: EOMI, no lid lag, anicteric sclera Mouth: no lip lesion, mucus membranes moist Cardiovascular: S1S2 reg, no murmur, positive posterior tibial pulse bilateral, Lungs: Diminished air entry bilaterally. Abdominal: soft, nontender to palpation, no guarding, no appreciable organomegaly Ext: no gross muscle atrophy, no edema, no contractures Neuro: CN II-XI grossly intact, no focal neuro deficits Psych: Alert, oriented, appropriate affect - Labs CBC & Chem 7: 10/10/21 06:13 10/10/21 06:13 Labs: Abnormal Lab Results - Last 24 Hours (Table) 10/09/21 10/09/21 10/09/21 Range/Units 07:15 07:15 07:15 WBC 2.54 L (4.50-10.00) X 10*3/uL RBC 3.98 L (4.40-5.60) X 10*6/uL Hgb 11.6 L (13.0-17.0) g/dL Hct 35.4 L (39.6-50.0) % Immature Gran # (0.00-0.04) X 10*3/uL Lymphocytes # 0.46 L (0.90-5.00) X 10*3/uL Monocytes # 0.10 L (0.20-1.00) X 10*3/uL Eosinophils # 0 L (0.04-0.35) X 10*3/uL Carbon Dioxide 10.6 L (20.0-27.5) mmol/L Anion Gap 22.40 H (10.00-18.00) mmol/L BUN 72.5 H (9.0-27.0) mg/dL Creatinine 3.7 H (0.6-1.5) mg/dL Est GFR (CKD-EPI)AfAm 18.0 L (60.0-200.0) Est GFR (CKD-EPI)NonAf 15.5 L (60.0-200.0) BUN/Creatinine Ratio (12.00-20.00) Ratio Glucose 215 H (70-110) mg/dL POC Glucose (mg/dL) (75-99) mg/dL Hemoglobin A1c 9.3 H (0.0-6.0) % Calcium 8.0 L (8.7-10.3) mg/dL Total Bilirubin <0.15 L (0.30-1.20) mg/dL AST 36 H (14-35) U/L Albumin 3.5 L (3.8-4.9) g/dL Globulin 3.4 H (1.6-3.3) g/dL Albumin/Globulin Ratio 1.03 L (1.60-3.17) g/dL 10/09/21 10/09/21 10/09/21 Range/Units 11:32 17:08 20:24 WBC (4.50-10.00) X 10*3/uL RBC (4.40-5.60) X 10*6/uL Hgb (13.0-17.0) g/dL Hct (39.6-50.0) % Immature Gran # (0.00-0.04) X 10*3/uL Lymphocytes # (0.90-5.00) X 10*3/uL Monocytes # (0.20-1.00) X 10*3/uL Eosinophils # (0.04-0.35) X 10*3/uL Carbon Dioxide (20.0-27.5) mmol/L Anion Gap (10.00-18.00) mmol/L BUN (9.0-27.0) mg/dL Creatinine (0.6-1.5) mg/dL Est GFR (CKD-EPI)AfAm (60.0-200.0) Est GFR (CKD-EPI)NonAf (60.0-200.0) BUN/Creatinine Ratio (12.00-20.00) Ratio Glucose (70-110) mg/dL POC Glucose (mg/dL) 194 H 137 H 141 H (75-99) mg/dL Hemoglobin A1c (0.0-6.0) % Calcium (8.7-10.3) mg/dL Total Bilirubin (0.30-1.20) mg/dL AST (14-35) U/L Albumin (3.8-4.9) g/dL Globulin (1.6-3.3) g/dL Albumin/Globulin Ratio (1.60-3.17) g/dL 10/10/21 10/10/21 10/10/21 Range/Units 06:13 06:13 06:44 WBC (4.50-10.00) X 10*3/uL RBC 3.88 L (4.40-5.60) X 10*6/uL Hgb 11.2 L (13.0-17.0) g/dL Hct 34.1 L (39.6-50.0) % Immature Gran # 0.13 H (0.00-0.04) X 10*3/uL Lymphocytes # 0.82 L (0.90-5.00) X 10*3/uL Monocytes # (0.20-1.00) X 10*3/uL Eosinophils # 0 L (0.04-0.35) X 10*3/uL Carbon Dioxide 15.7 L (20.0-27.5) mmol/L Anion Gap (10.00-18.00) mmol/L BUN 74.4 H (9.0-27.0) mg/dL Creatinine 3.0 H (0.6-1.5) mg/dL Est GFR (CKD-EPI)AfAm 23.1 L (60.0-200.0) Est GFR (CKD-EPI)NonAf 20.0 L (60.0-200.0) BUN/Creatinine Ratio 24.80 H (12.00-20.00) Ratio Glucose 166 H (70-110) mg/dL POC Glucose (mg/dL) 150 H (75-99) mg/dL Hemoglobin A1c (0.0-6.0) % Calcium 8.1 L (8.7-10.3) mg/dL Total Bilirubin <0.15 L (0.30-1.20) mg/dL AST 49 H (14-35) U/L Albumin 3.6 L (3.8-4.9) g/dL Globulin (1.6-3.3) g/dL Albumin/Globulin Ratio 1.13 L (1.60-3.17) g/dL Assessment and Plan Assessment: Assessment and plan: #Acute influenza infection #Acute viral bronchitis -Patient started on IV steroids -Outside the window for Tamiflu treatment -Azithromycin 500 mg daily -Moderate QTc interval on on azithromycin and Celexa #Acute kidney injury -Worse -Most likely secondary to acute illness and decreased oral intake possible ATN -IV fluids -Hold diuretics patient on spironolactone and hydrochlorothiazide -Product Applications Engineer consulted #Chronic kidney disease stage IV Secondary to diabetic nephropathy #Acute hyponatremia -Secondary to diuretics holding Aldactone and-chlorothiazide combination -Resolved with IV fluids #Hypokalemia -Replaced per nephrology #Hypertension -Resume propranolol #Coronary disease artery -Patient denies any chest pain or -Resume beta narcisa, aspirin Zetia,Imdur and Ranexa #Insulin-dependent type 2 diabetes mellitus with uncontrolled hyperglycemia -Resume his insulin pump -A1c 9.3 -Accu-Chek before meals and at bedtime #Chronic gout -Resume Uloric and discharge #Depression -Resume Celexa #obesity BMI 33 #Obstructive sleep apnea CPAP #DVT prophylaxis subcutaneous heparin
[2021-10-10 10:13] VITALS: BMI 33.9
[2021-10-10] MEDS: NON FORMULARY DRUG (Vitamin B Complex [Vitamin B Complex] 1 EACH Capsule) PO SCH (10:23)
[2021-10-10] MEDS: ASPIRIN 81 MG PO SCH (10:23)
[2021-10-10 12:12] LABS: Glucose,Whole Blood 373 mg/dL (75-99)
[2021-10-10] MEDS: INSULIN ASPART (NovoLOG) 100 UNIT/ML VIAL SQ PRN (12:36)
--- NOTE | 2021-10-10 13:19 | P.PN ---
Subjective Patient is seen for follow-up for chronic kidney disease with acute kidney injury mostly prerenal Currently maintained on IV fluids Patient was admitted to the hospital with complaints of increased weakness in the recent diagnosis of influenza. Patient denies any significant complaints. He wants to go home Objective - Vital Signs Vital signs: Vital Signs Temp 98 F 10/10/21 07:00 Pulse 70 10/10/21 10:55 Resp 18 10/10/21 08:00 BP 155/69 10/10/21 07:00 Pulse Ox 99 10/10/21 07:00 Intake & Output 10/09/21 10/10/21 10/10/21 18:59 06:59 18:59 Intake Total 354 Balance 354 Weight 101.151 kg Intake: Oral 354 Other: # Voids 3 2 - Exam Awake comfortable alert oriented 3 No acute distress Examination lower extremity shows edema 1+ bilaterally - Labs CBC & Chem 7: 10/10/21 06:13 10/10/21 06:13 Labs: Abnormal Lab Results - Last 24 Hours (Table) 10/09/21 10/09/21 10/09/21 Range/Units 07:15 07:15 07:15 RBC (4.40-5.60) X 10*6/uL Hgb (13.0-17.0) g/dL Hct (39.6-50.0) % Immature Gran # (0.00-0.04) X 10*3/uL Lymphocytes # 0.46 L (0.90-5.00) X 10*3/uL Monocytes # 0.10 L (0.20-1.00) X 10*3/uL Eosinophils # 0 L (0.04-0.35) X 10*3/uL Carbon Dioxide 10.6 L (20.0-27.5) mmol/L Anion Gap 22.40 H (10.00-18.00) mmol/L BUN 72.5 H (9.0-27.0) mg/dL Creatinine 3.7 H (0.6-1.5) mg/dL Est GFR (CKD-EPI)AfAm 18.0 L (60.0-200.0) Est GFR (CKD-EPI)NonAf 15.5 L (60.0-200.0) BUN/Creatinine Ratio (12.00-20.00) Ratio Glucose 215 H (70-110) mg/dL POC Glucose (mg/dL) (75-99) mg/dL Hemoglobin A1c 9.3 H (0.0-6.0) % Calcium 8.0 L (8.7-10.3) mg/dL Total Bilirubin <0.15 L (0.30-1.20) mg/dL AST 36 H (14-35) U/L Albumin 3.5 L (3.8-4.9) g/dL Globulin 3.4 H (1.6-3.3) g/dL Albumin/Globulin Ratio 1.03 L (1.60-3.17) g/dL 10/09/21 10/09/21 10/10/21 Range/Units 17:08 20:24 06:13 RBC 3.88 L (4.40-5.60) X 10*6/uL Hgb 11.2 L (13.0-17.0) g/dL Hct 34.1 L (39.6-50.0) % Immature Gran # 0.13 H (0.00-0.04) X 10*3/uL Lymphocytes # 0.82 L (0.90-5.00) X 10*3/uL Monocytes # (0.20-1.00) X 10*3/uL Eosinophils # 0 L (0.04-0.35) X 10*3/uL Carbon Dioxide (20.0-27.5) mmol/L Anion Gap (10.00-18.00) mmol/L BUN (9.0-27.0) mg/dL Creatinine (0.6-1.5) mg/dL Est GFR (CKD-EPI)AfAm (60.0-200.0) Est GFR (CKD-EPI)NonAf (60.0-200.0) BUN/Creatinine Ratio (12.00-20.00) Ratio Glucose (70-110) mg/dL POC Glucose (mg/dL) 137 H 141 H (75-99) mg/dL Hemoglobin A1c (0.0-6.0) % Calcium (8.7-10.3) mg/dL Total Bilirubin (0.30-1.20) mg/dL AST (14-35) U/L Albumin (3.8-4.9) g/dL Globulin (1.6-3.3) g/dL Albumin/Globulin Ratio (1.60-3.17) g/dL 10/10/21 10/10/21 10/10/21 Range/Units 06:13 06:44 12:08 RBC (4.40-5.60) X 10*6/uL Hgb (13.0-17.0) g/dL Hct (39.6-50.0) % Immature Gran # (0.00-0.04) X 10*3/uL Lymphocytes # (0.90-5.00) X 10*3/uL Monocytes # (0.20-1.00) X 10*3/uL Eosinophils # (0.04-0.35) X 10*3/uL Carbon Dioxide 15.7 L (20.0-27.5) mmol/L Anion Gap (10.00-18.00) mmol/L BUN 74.4 H (9.0-27.0) mg/dL Creatinine 3.0 H (0.6-1.5) mg/dL Est GFR (CKD-EPI)AfAm 23.1 L (60.0-200.0) Est GFR (CKD-EPI)NonAf 20.0 L (60.0-200.0) BUN/Creatinine Ratio 24.80 H (12.00-20.00) Ratio Glucose 166 H (70-110) mg/dL POC Glucose (mg/dL) 150 H 373 H (75-99) mg/dL Hemoglobin A1c (0.0-6.0) % Calcium 8.1 L (8.7-10.3) mg/dL Total Bilirubin <0.15 L (0.30-1.20) mg/dL AST 49 H (14-35) U/L Albumin 3.6 L (3.8-4.9) g/dL Globulin (1.6-3.3) g/dL Albumin/Globulin Ratio 1.13 L (1.60-3.17) g/dL Assessment and Plan Assessment: 1. Acute kidney injury nonoliguric. Mostly ATN and prerenal. Maintained on IV fluids. 2. Chronic kidney disease NKF stage IV secondary to diabetic kidney disease with baseline creatinine around 3 mg/dL 4. Influenza with no actual test available at this time. 5. Hypokalemia, will replace if still low today 6. Chronic gout 7. Type 2 diabetes insulin-dependent Plan: Patient can be discharged from nephrology standpoint. DC IV fluids Encourage increased oral intake Follow-up as outpatient for AN[facility] [place]
[2021-10-10 13:49] VITALS: BP 149/68; PULSE 60; TEMP 97.5
--- NOTE | 2021-10-10 14:23 | P.DS ---
Providers Date of admission: 10/08/21 17:19 Expected date of discharge: 10/10/21 Attending physician: Christelle Barroso, Consults: 10/08/21 17:16 Consult Physician Routine Consulting Provider: Simba Posey Consult Reason/Comments: CINDY Do you want consulting provider notified?: Yes 10/08/21 18:17 Consult Physician Routine Consulting Provider: Leilani Potter Consult Reason/Comments: acute viral bronchitis Do you want consulting provider notified?: Yes Primary care physician: Marlon Valentino MD Hospital Course: History of Present Illness H&P Date: 10/08/21 Chief Complaint: Generalized weakness with cough and exertional dyspnea 70-year-old male with past medical history significant for chronic kidney disease stage IV, coronary disease, chronic diastolic CHF, hypertension, dyslipidemia, insulin-dependent type 2 diabetes mellitus on insulin pump obstructive sleep apnea on CPAP. The patient presented to the emergency room from his family care physician office. He has been symptomatic of influenza since 6 days ago. Patient states he was diagnosed with influenza 4 days ago after being tested at one of the local urgent cares. He needed to get a coag tests prior to being seen his primary care physician's office. His been symptomatic for approximately 6 days. Unclear outpatient contracted influenza. He was finally seen in the office by Dr. Chambers today. He was redirected to the emergency department for evaluation. Patient states she's been having malaise, cough and nausea. Denies any abdominal pain. No chest pain. Patient has been complaining of worsening shortness of breath on exertion was intractable cough for the past few days. Chest x-ray history was negative for pneumonia. Patient did not receive his influenza vaccine this year. He did not take any Tamiflu. Hospital course in detail the problem list: #Acute influenza infection #Acute viral bronchitis -Symptoms improved with IV Solu-Medrol -Outside the window treatment for influenza with Tamiflu -Pulmonary recommended Medrol Dosepak on discharge -The need for antibiotic on discharge #Acute kidney injury -Improved -Creatinine today is 3.0 around his baseline -Most likely secondary to acute illness and decreased oral intake possible ATN -Status post IV fluids -Continue holding diuretics spironolactone and hydrochlorothiazide combination tablet on discharge per nephrology recommendation -Waterproofer input appreciated #Chronic kidney disease stage IV Secondary to diabetic nephropathy #Acute hyponatremia -Secondary to diuretics holding Aldactone and-chlorothiazide combination -Resolved with IV fluids #Hypokalemia -Replaced per nephrology #Hypertension -Resume propranolol #Coronary disease artery -Patient denies any chest pain or -Resume beta narcisa, aspirin Zetia,Imdur and Ranexa #Insulin-dependent type 2 diabetes mellitus with uncontrolled hyperglycemia -Resume his insulin pump -A1c 9.3 -Accu-Chek before meals and at bedtime #Chronic gout -Resume Uloric and discharge #Depression -Resume Celexa #obesity BMI 33 #Obstructive sleep apnea CPAP Patient was cleared for discharge per pulmonary and nephrology. Time spent in discharge process 35 minutes Physical examination on discharge General: non toxic, no distress, appears at stated age Derm: warm, dry Head: atraumatic, normocephalic, symmetric Eyes: EOMI, no lid lag, anicteric sclera Mouth: no lip lesion, mucus membranes moist Cardiovascular: S1S2 reg, no murmur, positive posterior tibial pulse bilateral, Lungs: Clear to auscultation bilaterally without wheezing Abdominal: soft, nontender to palpation, no guarding, no appreciable organom egaly Ext: no gross muscle atrophy, no edema, no contractures Neuro: CN II-XI grossly intact, no focal neuro deficits Psych: Alert, oriented, appropriate affect Patient Condition at Discharge: Stable Plan - Discharge Summary Discharge Rx Participant: Yes New Discharge Prescriptions: New methylPREDNISolone Dose Pack [Medrol Dose Pack] 4 mg PO DIRECTED #1 packet Continue Rosuvastatin Calcium [Crestor] 40 mg PO HS Cetirizine HCl 10 mg PO DAILY Nitroglycerin Sl Tabs [Nitrostat] 0.4 mg SUBLINGUAL Q5M PRN PRN Reason: Chest Pain Ezetimibe [Zetia] 10 mg PO DAILY Ferrous Sulfate [Iron (65 MG Elemental)] 325 mg PO DAILY Febuxostat [Uloric] 40 mg PO DAILY Vitamin B Complex 1 cap PO DAILY Ergocalciferol (Vitamin D2) [Vitamin D2] 50,000 unit PO Q14D Insulin Aspart (For Pump) [NovoLOG (For Pump)] 0.01 unit SQ-PUMP CONTINUOUS Aspirin EC [Ecotrin Low Dose] 81 mg PO DAILY calcitrioL [Calcitriol] 0.25 mcg PO MOTUWETHFR Isosorbide Mononitrate ER [Imdur] 60 mg PO BID Pramipexole [Mirapex] 0.5 mg PO DAILY PRN PRN Reason: RESTLESS LEGS Ranolazine [Ranexa] 500 mg PO BID Propranolol [Inderal] 20 mg PO DAILY Cholecalciferol [Vitamin D3 (25 Mcg = 1000 Iu)] 25 mcg PO DAILY Albuterol Inhaler [Ventolin Hfa Inhaler] 2 puff INHALATION RT-QID PRN PRN Reason: Shortness Of Breath Fluticasone Propion/Salmeterol [Wixela 100-50 Inhub] 1 puff INHALATION RT-BID Dulaglutide [Trulicity] 1.5 mg SQ TU Benzonatate [Benzonatate Perle] 200 mg PO Q8H PRN PRN Reason: Cough Escitalopram [Lexapro] 10 mg PO DAILY Discontinued Glucagon Emergency Kit 1 mg IM ONCE PRN PRN Reason: Hypoglycemia Spironolactone-Hctz 25-25Mg [Aldactazide 25-25Mg] 1 tab PO DAILY Discharge Medication List Cetirizine HCl 10 mg PO DAILY 03/03/14 [History] Nitroglycerin Sl Tabs [Nitrostat] 0.4 mg SUBLINGUAL Q5M PRN 03/03/14 [History] Rosuvastatin Calcium [Crestor] 40 mg PO HS 03/03/14 [History] Ezetimibe [Zetia] 10 mg PO DAILY 05/19/16 [History] Ferrous Sulfate [Iron (65 MG Elemental)] 325 mg PO DAILY 05/19/16 [History] Aspirin EC [Ecotrin Low Dose] 81 mg PO DAILY 05/28/18 [History] Ergocalciferol (Vitamin D2) [Vitamin D2] 50,000 unit PO Q14D 05/28/18 [History] Febuxostat [Uloric] 40 mg PO DAILY 05/28/18 [History] Insulin Aspart (For Pump) [NovoLOG (For Pump)] 0.01 unit SQ-PUMP CONTINUOUS 05/28/18 [History] Vitamin B Complex 1 cap PO DAILY 05/28/18 [History] Isosorbide Mononitrate ER [Imdur] 60 mg PO BID 07/05/18 [History] calcitrioL [Calcitriol] 0.25 mcg PO MOTUWETHFR 07/05/18 [History] Pramipexole [Mirapex] 0.5 mg PO DAILY PRN 05/02/19 [History] Ranolazine [Ranexa] 500 mg PO BID 05/02/19 [History] Propranolol [Inderal] 20 mg PO DAILY 07/28/20 [History] Dulaglutide [Trulicity] 1.5 mg SQ TU 05/23/21 [History] Albuterol Inhaler [Ventolin Hfa Inhaler] 2 puff INHALATION RT-QID PRN 08/10/21 [History] Cholecalciferol [Vitamin D3 (25 Mcg = 1000 Iu)] 25 mcg PO DAILY 08/10/21 [History] Fluticasone Propion/Salmeterol [Wixela 100-50 Inhub] 1 puff INHALATION RT-BID 08/10/21 [History] Benzonatate [Benzonatate Perle] 200 mg PO Q8H PRN 10/08/21 [History] Escitalopram [Lexapro] 10 mg PO DAILY 10/08/21 [History] methylPREDNISolone Dose Pack [Medrol Dose Pack] 4 mg PO DIRECTED #1 packet 10/10/21 [Rx] Follow up Appointment(s)/Referral(s): Marlon Valentino MD [Primary Care Provider] - 1-2 days Discharge Disposition: HOME SELF-CARE
--- NOTE | 2021-10-10 14:43 | P.PN ---
Subjective Progress Note Date: 10/10/21 This a very pleasant 70-year-old male patient who follows with Dr. Vasquez as his primary care provider. He has a history of coronary artery disease with previous stent placement, anxiety, diabetes mellitus with an insulin pump, chronic kidney disease, hyperlipidemia, hypertension, mild intermittent chronic bronchial asthma, obstructive sleep apnea maintained on CPAP He has a greater than 1 week history of weakness, cough, nausea, diarrhea, headache. He was diagnosed with influenza 4-5 days prior to his arrival to the emergency room yesterday. He tested negative for CoVID and was seen was seen by his PCP who sent him to the ER for further evaluation. Chest x-ray revealed no acute pulmonary process. White count 2.7. Hemoglobin 13.6. Platelets 195. Sodium 132. Potassium 3.1. Bicarb 20. BUN 73. Creatinine 3.58. Glucose 162. AST 44. ALT 28. Pro-calcitonin 0.57. He's been initiated on Tessalon Perles, Symbicort, DuoNeb inhalations, IV Solu-Medrol, antibiotics in the form of azith romycin. He is seen today in consultation in the regular medical floor. He is currently sitting up in bed. Awake and alert in no acute distress. He is feeling a bit better today compared to yesterday. Still with quite a bit of fatigue and weakness. Mucus normal saline running 100 ML's per hour. He did eat breakfast. The patient is seen today 10/10/2021 in follow-up on the regular medical floor. He is currently sitting up in a chair at the bedside. Awake and alert in no acute distress. Doing quite a bit better today compared to yesterday. Maintaining good O2 saturations in the 90s on room air. No fever or chills. White count 6.8. Hemoglobin 11.2. Sodium 135. Potassium 3.9. BUN 74. Creatinine 3.0. Glucose 166. AST 49. ALT 31. His been maintained on DuoNeb inhalations, Tessalon Perles, Symbicort, IV Solu-Medrol. Heparin for DVT prophylaxis. Antibiotics in the form of azithromycin. Objective - Vital Signs Vital signs: Vital Signs Temp 97.5 F L 10/10/21 13:48 Pulse 60 10/10/21 13:48 Resp 18 10/10/21 13:48 BP 149/68 10/10/21 13:48 Pulse Ox 100 10/10/21 13:48 Intake & Output 10/09/21 10/10/21 10/10/21 18:59 06:59 18:59 Intake Total 354 240 Balance 354 240 Weight 101.151 kg Intake: Oral 354 240 Other: # Voids 3 2 - Exam GENERAL EXAM: Alert, very pleasant 70-year-old gentleman, on room air, comfortable in no apparent distress. HEAD: Normocephalic. EYES: Normal reaction of pupils, equal size. NOSE: Clear with pink turbinates. THROAT: No erythema or exudates. NECK: No masses, no JVD. CHEST: No chest wall deformity. LUNGS: Equal air entry with no crackles, wheeze, rhonchi or dullness. CVS: S1 and S2 normal with no audible murmur, regular rhythm. ABDOMEN: No hepatosplenomegaly, normal bowel sounds, no guarding or rigidity. SPINE: No scoliosis or deformity SKIN: No rashes CENTRAL NERVOUS SYSTEM: No focal deficits, tone is normal in all 4 extremities. EXTREMITIES: There is no peripheral edema. No clubbing, no cyanosis. Peripheral pulses are intact. - Labs CBC & Chem 7: 10/10/21 06:13 10/10/21 06:13 Labs: Abnormal Lab Results - Last 24 Hours (Table) 10/09/21 10/09/21 10/09/21 Range/Units 07:15 07:15 07:15 RBC (4.40-5.60) X 10*6/uL Hgb (13.0-17.0) g/dL Hct (39.6-50.0) % Immature Gran # (0.00-0.04) X 10*3/uL Lymphocytes # 0.46 L (0.90-5.00) X 10*3/uL Monocytes # 0.10 L (0.20-1.00) X 10*3/uL Eosinophils # 0 L (0.04-0.35) X 10*3/uL Carbon Dioxide 10.6 L (20.0-27.5) mmol/L Anion Gap 22.40 H (10.00-18.00) mmol/L BUN 72.5 H (9.0-27.0) mg/dL Creatinine 3.7 H (0.6-1.5) mg/dL Est GFR (CKD-EPI)AfAm 18.0 L (60.0-200.0) Est GFR (CKD-EPI)NonAf 15.5 L (60.0-200.0) BUN/Creatinine Ratio (12.00-20.00) Ratio Glucose 215 H (70-110) mg/dL POC Glucose (mg/dL) (75-99) mg/dL Hemoglobin A1c 9.3 H (0.0-6.0) % Calcium 8.0 L (8.7-10.3) mg/dL Total Bilirubin <0.15 L (0.30-1.20) mg/dL AST 36 H (14-35) U/L Albumin 3.5 L (3.8-4.9) g/dL Globulin 3.4 H (1.6-3.3) g/dL Albumin/Globulin Ratio 1.03 L (1.60-3.17) g/dL 10/09/21 10/09/21 10/10/21 Range/Units 17:08 20:24 06:13 RBC 3.88 L (4.40-5.60) X 10*6/uL Hgb 11.2 L (13.0-17.0) g/dL Hct 34.1 L (39.6-50.0) % Immature Gran # 0.13 H (0.00-0.04) X 10*3/uL Lymphocytes # 0.82 L (0.90-5.00) X 10*3/uL Monocytes # (0.20-1.00) X 10*3/uL Eosinophils # 0 L (0.04-0.35) X 10*3/uL Carbon Dioxide (20.0-27.5) mmol/L Anion Gap (10.00-18.00) mmol/L BUN (9.0-27.0) mg/dL Creatinine (0.6-1.5) mg/dL Est GFR (CKD-EPI)AfAm (60.0-200.0) Est GFR (CKD-EPI)NonAf (60.0-200.0) BUN/Creatinine Ratio (12.00-20.00) Ratio Glucose (70-110) mg/dL POC Glucose (mg/dL) 137 H 141 H (75-99) mg/dL Hemoglobin A1c (0.0-6.0) % Calcium (8.7-10.3) mg/dL Total Bilirubin (0.30-1.20) mg/dL AST (14-35) U/L Albumin (3.8-4.9) g/dL Globulin (1.6-3.3) g/dL Albumin/Globulin Ratio (1.60-3.17) g/dL 10/10/21 10/10/21 10/10/21 Range/Units 06:13 06:44 12:08 RBC (4.40-5.60) X 10*6/uL Hgb (13.0-17.0) g/dL Hct (39.6-50.0) % Immature Gran # (0.00-0.04) X 10*3/uL Lymphocytes # (0.90-5.00) X 10*3/uL Monocytes # (0.20-1.00) X 10*3/uL Eosinophils # (0.04-0.35) X 10*3/uL Carbon Dioxide 15.7 L (20.0-27.5) mmol/L Anion Gap (10.00-18.00) mmol/L BUN 74.4 H (9.0-27.0) mg/dL Creatinine 3.0 H (0.6-1.5) mg/dL Est GFR (CKD-EPI)AfAm 23.1 L (60.0-200.0) Est GFR (CKD-EPI)NonAf 20.0 L (60.0-200.0) BUN/Creatinine Ratio 24.80 H (12.00-20.00) Ratio Glucose 166 H (70-110) mg/dL POC Glucose (mg/dL) 150 H 373 H (75-99) mg/dL Hemoglobin A1c (0.0-6.0) % Calcium 8.1 L (8.7-10.3) mg/dL Total Bilirubin <0.15 L (0.30-1.20) mg/dL AST 49 H (14-35) U/L Albumin 3.6 L (3.8-4.9) g/dL Globulin (1.6-3.3) g/dL Albumin/Globulin Ratio 1.13 L (1.60-3.17) g/dL Assessment and Plan Assessment: 1 Acute influenza infection with generalized weakness and fatigue it patient tested positive for influenza 5-6 days prior to arriving to the ER yesterday. Outside the window for Tamiflu. CoVID screen reported as negative. 2 Acute on chronic renal failure secondary to above 3 History of coronary disease with previous stent placement 4 Hyperlipidemia 5 Hypertension 6 Diabetes Mellitus with Insulin Pump 7 Obstructive Sleep Apnea, on CPAP in the Outpatient Setting, Not Fully Compliant 8 Chronic Renal Failure 9 Former Smoker 10 Mild Intermittent Chronic Bronchial Asthma Plan: The patient was seen and evaluated Stable and on room air Home once cleared by medicine Continue home pulmonary medications Complete a prednisone taper, Medrol Dosepak I have personally seen and examined the patient, performed the documentation and the assessment and plan as written. Number of minutes spent on the visit: 10.
[2021-10-13] MEDS ORDERED: ERGOCALCIFEROL 1,250 MCG (50,000 IU) CAPSULE PO SCH (09:00)
== END 2021-10-10 15:05 | disposition home or self-care (01) | DRG 683 ==
LOC: EC 12:28 → 6NMEDSUR 14:42 → OBSVTOIN 17:19 → 6NMEDSUR 17:49
PROVIDERS: ADMIT Internal Medicine; ATTEND Internal Medicine
DX: N17.0 Acute kidney failure with tubular necrosis (principal); E87.1 Hypo-osmolality and hyponatremia; E87.2 Acidosis; I13.0 Hypertensive heart and chronic kidney disease with heart failure and stage 1 through stage 4 chronic kidney disease, or unspecified chronic kidney disease; I50.32 Chronic diastolic (congestive) heart failure; J20.9 Acute bronchitis, unspecified; J11.1 Influenza due to unidentified influenza virus with other respiratory manifestations; R53.1 Weakness; D72.819 Decreased white blood cell count, unspecified; E11.22 Type 2 diabetes mellitus with diabetic chronic kidney disease; E11.65 Type 2 diabetes mellitus with hyperglycemia; E11.21 Type 2 diabetes mellitus with diabetic nephropathy; I25.10 Atherosclerotic heart disease of native coronary artery without angina pectoris; E66.9 Obesity, unspecified; E78.5 Hyperlipidemia, unspecified; E86.0 Dehydration; Z79.899 Other long term (current) drug therapy; N18.4 Chronic kidney disease, stage 4 (severe); E87.6 Hypokalemia; J45.20 Mild intermittent asthma, uncomplicated; T50.2X5A Adverse effect of carbonic-anhydrase inhibitors, benzothiadiazides and other diuretics, initial encounter; F03.90 Unspecified dementia, unspecified severity, without behavioral disturbance, psychotic disturbance, mood disturbance, and anxiety; F32.A Depression, unspecified; F41.9 Anxiety disorder, unspecified; G47.33 Obstructive sleep apnea (adult) (pediatric); I25.2 Old myocardial infarction; M1A.9XX0 Chronic gout, unspecified, without tophus (tophi); Z20.822 Contact with and (suspected) exposure to COVID-19; Z68.33 Body mass index [BMI] 33.0-33.9, adult; Z79.4 Long term (current) use of insulin; Z77.29 Contact with and (suspected) exposure to other hazardous substances; Z79.82 Long term (current) use of aspirin; Z80.0 Family history of malignant neoplasm of digestive organs; Z80.52 Family history of malignant neoplasm of bladder; Z83.3 Family history of diabetes mellitus; Z87.891 Personal history of nicotine dependence; Z95.5 Presence of coronary angioplasty implant and graft; Z96.41 Presence of insulin pump (external) (internal); Z88.8 Allergy status to other drugs, medicaments and biological substances
CPT/HCPCS: 36415; 71046; 80053; 83036; 83735; 84145; 85025; 93005; 94640; 96361; 96365; 96366; 96372; 96375; 99285

== ENCOUNTER 2021-10-16 14:57 | Inpatient (IN) | payer MEDICARE ==
--- NOTE | 2021-10-16 16:09 | ED ---
SOB HPI - General Chief Complaint: Shortness of Breath Stated Complaint: ROSIE,chest pain Time Seen by Provider: 10/16/21 15:31 Source: patient Mode of arrival: wheelchair Limitations: no limitations - History of Present Illness Initial Comments: Phan is a 70 yo M who presents to the ER with complaint of chest pain, SOB, fatigue and 13lb weight gain this week. Patient was admitted to the bottle last week with influenza A. He was feeling better upon discharge but states that he is progressively been feeling worse, noted swelling in his arms and legs and weight gain. While hospitalized he was taken off of his water pill and had not resume that. He also states he's had intermittent chest pain since discharge. He has had persistent shortness of breath. No nausea or vomiting but feels overwhelmingly fatigued. - Related Data Home Medications Medication Instructions Recorded Confirmed Cetirizine HCl 10 mg PO DAILY 03/03/14 10/16/21 Nitroglycerin Sl Tabs [Nitrostat] 0.4 mg SL Q5M PRN 03/03/14 10/16/21 Rosuvastatin Calcium [Crestor] 40 mg PO HS 03/03/14 10/16/21 Ezetimibe [Zetia] 10 mg PO DAILY 05/19/16 10/16/21 Ferrous Sulfate [Iron (65 MG 325 mg PO DAILY 05/19/16 10/16/21 Elemental)] Aspirin EC [Ecotrin Low Dose] 81 mg PO DAILY 05/28/18 10/16/21 Ergocalciferol (Vitamin D2) 50,000 unit PO Q14D 05/28/18 10/16/21 [Vitamin D2] Febuxostat [Uloric] 40 mg PO DAILY 05/28/18 10/16/21 Insulin Aspart (For Pump) [NovoLOG 0.01 unit SQ-PUMP CONTINUOUS 05/28/18 10/16/21 (For Pump)] Vitamin B Complex 1 cap PO DAILY 05/28/18 10/16/21 Isosorbide Mononitrate ER [Imdur] 60 mg PO BID 07/05/18 10/16/21 calcitrioL [Calcitriol] 0.25 mcg PO MOTUWETHFR 07/05/18 10/16/21 Pramipexole [Mirapex] 0.5 mg PO DAILY PRN 05/02/19 10/16/21 Ranolazine [Ranexa] 500 mg PO BID 05/02/19 10/16/21 Propranolol [Inderal] 20 mg PO DAILY 07/28/20 10/16/21 Dulaglutide [Trulicity] 1.5 mg SQ TU 05/23/21 10/16/21 Albuterol Inhaler [Ventolin Hfa 2 puff INHALATION RT-QID PRN 08/10/21 10/16/21 Inhaler] Cholecalciferol [Vitamin D3 (25 25 mcg PO DAILY 08/10/21 10/16/21 Mcg = 1000 Iu)] Fluticasone Propion/Salmeterol 1 puff INHALATION RT-BID PRN 08/10/21 10/16/21 [Wixela 100-50 Inhub] Benzonatate [Benzonatate Perle] 200 mg PO Q8H PRN 10/08/21 10/16/21 Cholestyramine (with Sugar) 4 gm PO BID PRN 10/16/21 10/16/21 [Cholestyramine Packet] hydrALAZINE HCL [Apresoline] 10 mg PO TID 10/16/21 10/16/21 Previous Rx's Medication Instructions Recorded methylPREDNISolone Dose Pack 4 mg PO DIRECTED #1 packet 10/10/21 [Medrol Dose Pack] Allergies Allergy/AdvReac Type Severity Reaction Status Date / Time atorvastatin [From Lipitor] AdvReac Unknown Verified 10/16/21 17:17 baclofen AdvReac Unknown Verified 10/16/21 17:17 Review of Systems ROS Statement: Those systems with pertinent positive or pertinent negative responses have been documented in the HPI. ROS Other: All systems not noted in ROS Statement are negative. Past Medical History Past Medical History: Coronary Artery Disease (CAD), Chest Pain / Angina, Heart Failure, Diabetes Mellitus, Hyperlipidemia, Hypertension, Myocardial Infarction ([place]), Renal Disease Additional Past Medical History / Comment(s): 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, coronary artery disease, diabetes mellitus, hypertension, chronic renal failure, hyperlipidemia, JEN Last Myocardial Infarction Date:: 03/04/14 History of Any Multi-Drug Resistant Organisms: None Reported Past Surgical History: Cholecystectomy, Heart Catheterization, Heart Catheterization With Stent Additional Past Surgical History / Comment(s): shoulder, hemmroid, cardiac stent in june 2014, eye surgery Past Anesthesia/Blood Transfusion Reactions: No Reported Reaction Additional Past Anesthesia/Blood Transfusion Reaction / Comment(s): Never had a blood transfusion Date of Last Stent Placement:: 05/2014 Past Psychological History: Anxiety Smoking Status: Former smoker Past Alcohol Use History: None Reported Past Drug Use History: None Reported - Past Family History Father Family Medical History: Cancer Additional Family Medical History / Comment(s): bladder cancer Mother Family Medical History: Diabetes Mellitus Additional Family Medical History / Comment(s): Pancreatic CA General Exam - General Exam Comments Initial Comments: Physical Exam GENERAL: Patient is well-developed and well-nourished. Patient is nontoxic and well-hydrated and is in no distress. HENT: Normocephalic, Atraumatic. EYES: PERRL, EOMI PULMONARY: Unlabored respirations. No audible rales rhonchi or wheezing was noted. CARDIOVASCULAR: There is a regular rate and rhythm without any murmurs gallops or rubs. ABDOMEN: Soft and nontender with normal bowel sounds. SKIN: Skin is clear with no lesions or rashes and otherwise unremarkable. : Deferred NEUROLOGIC: Patient is alert and oriented x3. Moving all extremities spontaneously MUSCULOSKELETAL: Normal extremities with adequate strength and full range of motion. No lower extremity swelling or edema. No calf tenderness. PSYCHIATRIC: Normal psychiatric evaluation. Limitations: no limitations Course Vital Signs 10/16/21 10/16/21 10/16/21 14:59 15:57 18:32 Temperature 97.2 F L Pulse Rate 68 62 62 Respiratory 20 18 18 Rate Blood Pressure 170/67 183/92 170/67 O2 Sat by Pulse 99 99 99 Oximetry Medical Decision Making - Medical Decision Making Patient was seen and evaluated, history is obtained from the patient and review of medical record as well as at bedside 70-year-old gentleman who had influenza last week he was hospitalized at that time he did well for couple days home and this had progressively worsening chest pain and shortness of breath. reports he becomes fatigued after walking only a few feet out of the house. This is very atypical for him so he came back to the ER for further evaluation. Patient has no history of A. fib he's on no anticoagulation. Labs resulted with elevated BNP suggestive possible CHF exacerbation however patient also has an elevated d-dimer due to his chronic kidney disease not eligible for a CTA therefore we will admit the patient for VQ scan tomorrow. Patient were agreeable to this. This plan was discussed with who accepts admission - Lab Data Result diagrams: 10/16/21 16:01 10/16/21 16:01 Lab Results 10/16/21 10/16/21 10/16/21 Range/Units 16:01 16:01 16:01 WBC 6.2 (3.8-10.6) k/uL RBC 3.97 L (4.30-5.90) m/uL Hgb 12.0 L (13.0-17.5) gm/dL Hct 35.7 L (39.0-53.0) % MCV 90.1 (80.0-100.0) fL MCH 30.3 (25.0-35.0) pg MCHC 33.6 (31.0-37.0) g/dL RDW 14.2 (11.5-15.5) % Plt Count 237 (150-450) k/uL MPV 7.8 Neutrophils % 60 % Lymphocytes % 27 % Monocytes % 8 % Eosinophils % 1 % Basophils % 1 % Neutrophils # 3.8 (1.3-7.7) k/uL Lymphocytes # 1.7 (1.0-4.8) k/uL Monocytes # 0.5 (0-1.0) k/uL Eosinophils # 0.0 (0-0.7) k/uL Basophils # 0.1 (0-0.2) k/uL PT 10.8 (9.0-12.0) sec INR 1.0 (<1.2) APTT 21.8 L (22.0-30.0) sec D-Dimer 1.13 H (<0.60) mg/L FEU Sodium 137 (137-145) mmol/L Potassium 4.3 (3.5-5.1) mmol/L Chloride 108 H (98-107) mmol/L Carbon Dioxide 20 L (22-30) mmol/L Anion Gap 9 mmol/L BUN 51 H (9-20) mg/dL Creatinine 2.17 H (0.66-1.25) mg/dL Est GFR (CKD-EPI)AfAm 34 (>60 ml/min/1.73 sqM) Est GFR (CKD-EPI)NonAf 30 (>60 ml/min/1.73 sqM) Glucose 293 H (74-99) mg/dL Plasma Lactic Acid Geo (0.7-2.0) mmol/L Calcium 8.2 L (8.4-10.2) mg/dL Magnesium 1.8 (1.6-2.3) mg/dL Total Bilirubin 0.5 (0.2-1.3) mg/dL AST 36 (17-59) U/L ALT 43 (4-49) U/L Alkaline Phosphatase 65 (38-126) U/L Troponin I (0.000-0.034) ng/mL NT-Pro-B Natriuret Pep pg/mL Total Protein 6.2 L (6.3-8.2) g/dL Albumin 3.2 L (3.5-5.0) g/dL 10/16/21 10/16/21 10/16/21 Range/Units 16:01 16:01 16:01 WBC (3.8-10.6) k/uL RBC (4.30-5.90) m/uL Hgb (13.0-17.5) gm/dL Hct (39.0-53.0) % MCV (80.0-100.0) fL MCH (25.0-35.0) pg MCHC (31.0-37.0) g/dL RDW (11.5-15.5) % Plt Count (150-450) k/uL MPV Neutrophils % % Lymphocytes % % Monocytes % % Eosinophils % % Basophils % % Neutrophils # (1.3-7.7) k/uL Lymphocytes # (1.0-4.8) k/uL Monocytes # (0-1.0) k/uL Eosinophils # (0-0.7) k/uL Basophils # (0-0.2) k/uL PT (9.0-12.0) sec INR (<1.2) APTT (22.0-30.0) sec D-Dimer (<0.60) mg/L FEU Sodium (137-145) mmol/L Potassium (3.5-5.1) mmol/L Chloride (98-107) mmol/L Carbon Dioxide (22-30) mmol/L Anion Gap mmol/L BUN (9-20) mg/dL Creatinine (0.66-1.25) mg/dL Est GFR (CKD-EPI)AfAm (>60 ml/min/1.73 sqM) Est GFR (CKD-EPI)NonAf (>60 ml/min/1.73 sqM) Glucose (74-99) mg/dL Plasma Lactic Acid Geo 1.2 (0.7-2.0) mmol/L Calcium (8.4-10.2) mg/dL Magnesium (1.6-2.3) mg/dL Total Bilirubin (0.2-1.3) mg/dL AST (17-59) U/L ALT (4-49) U/L Alkaline Phosphatase (38-126) U/L Troponin I <0.012 (0.000-0.034) ng/mL NT-Pro-B Natriuret Pep 2610 pg/mL Total Protein (6.3-8.2) g/dL Albumin (3.5-5.0) g/dL - EKG Data -: EKG Interpreted by Me EKG Comments: EKG was obtained due to complaint of chest pain and shortness breath, EKG was obtained at 1508, rate is 62 rhythm there is a P-wave before each QRS this is sinus rhythm, leftward axis, widened QRS, QTC [address] elevations or depressions no evidence of ischemia or infarction. Disposition Clinical Impression: Chronic kidney disease, COPD (chronic obstructive pulmonary disease), Dyspnea Disposition: ADMITTED IP TO THIS HOSP
[2021-10-16 16:15] LABS: Basophils # (A) 0.1 k/uL (0-0.2); Basophils % (A) 1 %; Eosinophils % (A) 1 %; HCT 35.7 % (39.0-53.0); Lymphocytes # (A) 1.7 k/uL (1.0-4.8); Lymphocytes % (A) 27 %; MCH 30.3 pg (25.0-35.0); MCHC 33.6 g/dL (31.0-37.0); MCV 90.1 fL (80.0-100.0); Mean Platelet Volume 7.8; Monocytes # (A) 0.5 k/uL (0-1.0); Monocytes % (A) 8 %; Neutrophils # (A) 3.8 k/uL (1.3-7.7); Neutrophils % (A) 60 %; Platelet Count 237 k/uL (150-450); RBC 3.97 m/uL (4.30-5.90); RDW 14.2 % (11.5-15.5); WBC 6.2 k/uL (3.8-10.6)
[2021-10-16 16:21] LABS: Albumin 3.2 g/dL (3.5-5.0); Calcium 8.2 mg/dL (8.4-10.2); Magnesium 1.8 mg/dL (1.6-2.3); Potassium 4.3 mmol/L (3.5-5.1); Total Bilirubin 0.5 mg/dL (0.2-1.3); Total Protein 6.2 g/dL (6.3-8.2)
[2021-10-16 16:30] LABS: Prothrombin Time 10.8 sec (9.0-12.0)
[2021-10-16 16:35] LABS: Partial Thromboplastin Time 21.8 sec (22.0-30.0)
--- NOTE | 2021-10-16 16:39 | XR ---
EXAMINATION TYPE: XR chest 2V DATE OF EXAM: 10/16/2021 COMPARISON: 10/08/2021 HISTORY: 70-year-old male difficulty breathing, shortness of breath, recent influenza A. TECHNIQUE: PA and lateral views FINDINGS: Heart normal size. Mild streaky perihilar densities. Prominent vasculature within normal limits. No c onsolidation or pleural effusion. [facility] mid and lower thoracic spine. IMPRESSION: Some streaky perihilar and peribronchial densities could reflect bronchitis, asthma, or a subtle víctor l pneumonia. No focal infiltrate seen.
[2021-10-16] MEDS ORDERED: ENOXAPARIN 40 MG/0.4 ML SYRINGE SQ SCH (18:00)
[2021-10-16] MEDS ORDERED: FUROSEMIDE 10 MG/ML 4 ML VIAL IV SCH (18:00)
--- NOTE | 2021-10-16 18:56 | NM ---
EXAMINATION TYPE: NM pul perfusion DATE OF EXAM: 10/16/2021 COMPARISON: NONE HISTORY: Elevated d-dimer Following administration of 5.1 mCi Tc 99m MAA. Images obtained post injection. FINDINGS: There is segmental size perfusion defect involving the lateral left lung base. The other segments of the lung appear fairly normal. The chest x-ray today shows no pulmonary infiltrates. Heart size is no rmal. IMPRESSION: There is a segmental sized defect lateral left lung base in the area with no radiographic abnormality on the chest x-ray. There is intermediate probability of pulmonary embolism.
[2021-10-16] MEDS ORDERED: HEPARIN SODIUM 1,000 UN/ML (10ML VL) IV PRN (19:45)
[2021-10-16] MEDS ORDERED: bisacodyL 5 MG TABLET.DR PO PRN (19:47)
[2021-10-16] MEDS ORDERED: NALOXONE 0.4 MG/ML 1 ML VIAL IV PRN (19:47)
[2021-10-16] MEDS ORDERED: ACETAMINOPHEN TAB 325 MG TAB PO PRN (19:47)
[2021-10-16] MEDS ORDERED: ONDANSETRON 4 MG/2 ML VIAL IVP PRN (19:47)
[2021-10-16] MEDS ORDERED: HYDROcodone/APAP 5-325MG 1 EACH TAB PO PRN (19:47)
[2021-10-16] MEDS ORDERED: BENZONATATE 100 MG CAP PO PRN (19:54)
[2021-10-16] MEDS ORDERED: ALBUTEROL NEBULIZED 2.5 MG/3 ML INHALATION PRN (19:54)
[2021-10-16] MEDS ORDERED: PRAMIPEXOLE 0.5 MG TAB PO PRN (19:54)
[2021-10-16] MEDS ORDERED: Insulin Aspart (For Pump) 100 UNIT/ML VIAL SQ-PUMP SCH (20:00)
[2021-10-16] MEDS ORDERED: HEPARIN SODIUM 1,000 UN/ML (10ML VL) IV ONE (20:00)
--- NOTE | 2021-10-16 20:01 | P.HPIM ---
History of Present Illness H&P Date: 10/16/21 Chief Complaint: shortness of breath Patient is a 70-year-old male with coronary artery disease status post stent placement, congestive heart failure ( Hx of EF 45-50% now recoevered , diabetes, hypertension, and dyslipidemia who presented to the ER with complaints of worsening shortness of breath. On arrival to the ER he is on be hypertensive with blood pressure 170/67. Initial laboratory analysis showed hemoglobin 12, creatinine 2.17 consistent with his CKD, glucose 293, an elevated BNP at 2610. Chest x-ray showed no acute process. His d-dimer was elevated at 1.13 however he was not a good candidate for CTA of the chest secondary to his chronic kidney disease. Of note patient was recently hospitalized here from 10/08/21 through 10/10/21 secondary to acute kidney injury on chronic kidney disease and influenza. During that stay he was found to have acute kidney injury and hyponatremia and subsequently was discharged off his spironolactone and hydrochlorothiazide. Patient seen and examined at bedside. He reports that since leaving the hospital he has been having worsening shortness of breath. It is worse with exertion and better with rest. He lay flat at night he doesn't feel more short of breath. He has an increase in his dry nonproductive cough. Today when he is up and ambulating he became short of breath and then had chest pain that radiated across the center of his chest. This was relieved with nitro. He denies any associated nausea/vomiting/numbness/tingling/diaphoresis. He reports that he has had a 13 pound weight gain. He has also noted significant lower extremity edema as well as swelling in his fingers. He reports his diarrhea has resolved. He is still feeling very fatigued. He has been unable to wear his CPAP due to his coughing. present at bedside and helps to elicit history. PAtient has been having sugars in 400s and then sugars in the 30s over the last week. Has been taking zithromax and prednisone. Pertinent positives and negatives as discussed in HPI, a complete review of systems was performed and all other systems are negative. General: non toxic, no distress, appears at stated age Derm: warm, dry Head: atraumatic, normocephalic, symmetric Eyes: EOMI, no lid lag, anicteric sclera, pupils equal round reactive to light ENT: Nose and ears atraumatic, no thrush, no pharyngeal erythema Neck: No thyromegaly, no cervical lymphadenopathy, trachea midline, supple Mouth: no lip lesion, mucus membranes moist Cardiovascular: S1S2 reg, no murmur, positive posterior tibial pulse bilateral, 3+ edema bilateral lower extremities, + JVD, capillary refill less than 2 seconds Lungs: Rhonchi bilateral bases, 3 word conversational dyspnea no wheeze Abdominal: soft, nontender to palpation, no guarding, no appreciable organomegaly, normal bowel sounds Ext: no gross muscle atrophy, muscle strength muscle strength 5 out of 5 in all 4 extremities, no contractures Neuro: CN II-XI grossly intact, light touch intact all 4 extremities, finger to nose within normal limits, Psych: Alert, oriented, appropriate affect Assessment/plan: Dyspnea Suspect acute exacerbation of diastolic CHF with most recent ejection fraction 50%, less likely unstable angina vs pulmonary embolism Recent influenza, bronchitis -IV Lasix -VQ scan with intermediate probability. Follow-up with echocardiogram and bilateral lower extremity venous Dopplers. Patient was unable to have CTA of the chest secondary to chronic kidney disease. -Strict I's and O's, daily weight -Patient was just taken off of his hydrochlorothiazide and spironolactone after his last hospital stay. -Continue with Inderal, patient not chronically on SILVER inhibitor. -Cardiology recommendations - stop oral steroids Discussed with patient and for some benefits of starting heparin drip while awaiting for echocardiogram and bilateral lower extremity venous Dopplers. I agree with starting heparin drip at this time. Chest pain -Did relieve with nitro -Serial troponins -Telemetry -Consult cardiology - BB, ASA, Statin, Heparin gtt DM2 on insulin pump with hyperglycemia - patient to use pump and CGM with us following accucheck - A1C 9.3 - outpatinet follow-up - patient is very brittle. -Hold truliciy while in the hospital Chronic kidney disease stage IV with recent CINDY -Consult nephrology -Diuresis -Avoid additional nephrotoxic agents Chronic: HTN HLD Gout JEN -Has been noncompliant with CPAP secondary to cough. The patient is admitted with an anticipated greater than 2 midnight stay for evaluation of CHF. Surrogate decision-maker: CODE STATUS:Full DVT prophylaxis: Heparin gtt Discussed with: patient, nursing Anticipated discharge date: in 2-[address]: home A total of 65 minutes was spent on the care of this complex patient more than 50% of the time was spent in counseling and care coordination. Past Medical History Past Medical History: Coronary Artery Disease (CAD), Chest Pain / Angina, Heart Failure, Diabetes Mellitus, Hyperlipidemia, Hypertension, Myocardial Infarction ([place]), Renal Disease Additional Past Medical History / Comment(s): 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, coronary artery disease, diabetes mellitus, hypertension, chronic renal failure, hyperlipidemia, JEN Last Myocardial Infarction Date:: 03/04/14 History of Any Multi-Drug Resistant Organisms: None Reported Past Surgical History: Cholecystectomy, Heart Catheterization, Heart Catheterization With Stent Additional Past Surgical History / Comment(s): shoulder, hemmroid, cardiac stent in june 2014, eye surgery Past Anesthesia/Blood Transfusion Reactions: No Reported Reaction Additional Past Anesthesia/Blood Transfusion Reaction / Comment(s): Never had a blood transfusion Date of Last Stent Placement:: 05/2014 Past Psychological History: Anxiety Smoking Status: Former smoker Past Alcohol Use History: None Reported Past Drug Use History: None Reported - Past Family History Father Family Medical History: Cancer Additional Family Medical History / Comment(s): bladder cancer Mother Family Medical History: Diabetes Mellitus Additional Family Medical History / Comment(s): Pancreatic CA Medications and Allergies Home Medications Medication Instructions Recorded Confirmed Type Cetirizine HCl 10 mg PO DAILY 03/03/14 10/16/21 History Nitroglycerin Sl Tabs [Nitrostat] 0.4 mg SL Q5M PRN 03/03/14 10/16/21 History Rosuvastatin Calcium [Crestor] 40 mg PO HS 03/03/14 10/16/21 History Ezetimibe [Zetia] 10 mg PO DAILY 05/19/16 10/16/21 History Ferrous Sulfate [Iron (65 MG 325 mg PO DAILY 05/19/16 10/16/21 History Elemental)] Aspirin EC [Ecotrin Low Dose] 81 mg PO DAILY 05/28/18 10/16/21 History Ergocalciferol (Vitamin D2) 50,000 unit PO Q14D 05/28/18 10/16/21 History [Vitamin D2] Febuxostat [Uloric] 40 mg PO DAILY 05/28/18 10/16/21 History Insulin Aspart (For Pump) [NovoLOG 0.01 unit SQ-PUMP CONTINUOUS 05/28/18 10/16/21 History (For Pump)] Vitamin B Complex 1 cap PO DAILY 05/28/18 10/16/21 History Isosorbide Mononitrate ER [Imdur] 60 mg PO BID 07/05/18 10/16/21 History calcitrioL [Calcitriol] 0.25 mcg PO MOTUWETHFR 07/05/18 10/16/21 History Pramipexole [Mirapex] 0.5 mg PO DAILY PRN 05/02/19 10/16/21 History Ranolazine [Ranexa] 500 mg PO BID 05/02/19 10/16/21 History Propranolol [Inderal] 20 mg PO DAILY 07/28/20 10/16/21 History Dulaglutide [Trulicity] 1.5 mg SQ TU 05/23/21 10/16/21 History Albuterol Inhaler [Ventolin Hfa 2 puff INHALATION RT-QID PRN 08/10/21 10/16/21 History Inhaler] Cholecalciferol [Vitamin D3 (25 25 mcg PO DAILY 08/10/21 10/16/21 History Mcg = 1000 Iu)] Fluticasone Propion/Salmeterol 1 puff INHALATION RT-BID PRN 08/10/21 10/16/21 History [Wixela 100-50 Inhub] Benzonatate [Benzonatate Perle] 200 mg PO Q8H PRN 10/08/21 10/16/21 History methylPREDNISolone Dose Pack 4 mg PO DIRECTED #1 packet 10/10/21 10/16/21 Rx [Medrol Dose Pack] Cholestyramine (with Sugar) 4 gm PO BID PRN 10/16/21 10/16/21 History [Cholestyramine Packet] hydrALAZINE HCL [Apresoline] 10 mg PO TID 10/16/21 10/16/21 History Allergies Allergy/AdvReac Type Severity Reaction Status Date / Time atorvastatin [From Lipitor] AdvReac Unknown Verified 10/16/21 17:17 baclofen AdvReac Unknown Verified 10/16/21 17:17 Physical Exam Osteopathic Statement: *. No significant issues noted on an osteopathic structural exam other than those noted in the History and Physical/Consult. Vitals: Vital Signs Temp Pulse Resp BP Pulse Ox 10/16/21 18:32 62 18 170/67 99 03/18/22 15:57 62 18 183/92 99 10/16/21 14:59 97.2 F L 68 20 170/67 99 Intake and Output 10/16/21 10/16/21 10/16/21 06:59 14:59 22:59 Other: Weight 104.326 kg Results CBC & Chem 7: 10/16/21 16:01 10/16/21 16:01 Labs: Abnormal Lab Results - Last 24 Hours (Table) 10/16/21 10/16/21 10/16/21 Range/Units 16:01 16:01 16:01 RBC 3.97 L (4.30-5.90) m/uL Hgb 12.0 L (13.0-17.5) gm/dL Hct 35.7 L (39.0-53.0) % APTT 21.8 L (22.0-30.0) sec D-Dimer 1.13 H (<0.60) mg/L FEU Chloride 108 H (98-107) mmol/L Carbon Dioxide 20 L (22-30) mmol/L BUN 51 H (9-20) mg/dL Creatinine 2.17 H (0.66-1.25) mg/dL Glucose 293 H (74-99) mg/dL Calcium 8.2 L (8.4-10.2) mg/dL Total Protein 6.2 L (6.3-8.2) g/dL Albumin 3.2 L (3.5-5.0) g/dL
[2021-10-16 20:26] LABS: Partial Thromboplastin Time 22.2 sec (22.0-30.0)
[2021-10-16] MEDS: ISOSORBIDE MONONITRATE ER 60 MG TAB.ER.24H PO SCH (21:00)
[2021-10-16] MEDS: hydrALAZINE HCL 10 MG TAB PO SCH (21:01)
[2021-10-16] MEDS: RANOLAZINE 500 MG TAB.ER.12H PO SCH (21:01)
[2021-10-16] MEDS: HEPARIN SOD,PORK IN 0.45% NACL 25,000 UNIT in 0.45% NACL 1 250ML.BAG IV SCH (21:03)
--- NOTE | 2021-10-16 21:09 | US ---
EXAMINATION TYPE: US venous doppler duplex LE DATE OF EXAM: 10/16/2021 7:47 PM COMPARISON: NONE CLINICAL HISTORY: DVT. leg swelling. No redness. Hx CAD. Not on blood thinners. SIDE PERFORMED: Bilateral TECHNIQUE: The lower extremity deep venous system is examined utilizing real time linear array sonog evert with graded compression, doppler sonography and color-flow sonography. VESSELS IMAGED: Common Femoral Vein Deep Femoral Vein Greater Saphenous Vein * Femoral Vein Popliteal Vein Small Saphenous Vein * Proximal Calf Veins (* superficial vessels) Rouleaux flow seen Right Leg: Negative for DVT Left Leg: Negative for DVT IMPRESSION: Negative exam. No evidence of deep vein thrombosis in both legs.
[2021-10-16] MEDS: NON FORMULARY DRUG (Rosuvastatin Calcium [Crestor] 40 MG Tablet) PO SCH (21:19)
[2021-10-16 21:32] LABS: Glucose,Whole Blood 266 mg/dL (75-99)
[2021-10-16] MEDS: FUROSEMIDE 10 MG/ML 4 ML VIAL IV SCH (22:42)
[2021-10-17] MEDS: FUROSEMIDE 10 MG/ML 4 ML VIAL IV SCH ×3 (04:24→19:59)
[2021-10-17] MEDS ORDERED: DEXTROSE 50% SYRINGE 50 ML IVP ONE (04:26)
[2021-10-17 04:29] LABS: Glucose,Whole Blood 64 mg/dL (75-99)
[2021-10-17] MEDS ORDERED: INSULIN ASPART (NovoLOG) 100 UNIT/ML VIAL SQ PRN (04:42)
[2021-10-17] MEDS ORDERED: INSULIN PUMP BASAL RATES 1 EACH MISC MISCELLANE PRN (04:42)
[2021-10-17] MEDS ORDERED: INSPUCOR MISCELLANE PRN (04:42)
[2021-10-17 04:48] LABS: Glucose,Whole Blood 130 mg/dL (75-99)
[2021-10-17] MEDS: DEXTROSE 5% IN WATER 1,000 ML IV ONE ×2 (05:30→05:31)
[2021-10-17 07:31] LABS: Glucose,Whole Blood 82 mg/dL (75-99)
[2021-10-17 08:27] LABS: Glucose,Whole Blood 69 mg/dL (75-99)
[2021-10-17 08:45] LABS: Glucose,Whole Blood 85 mg/dL (75-99)
[2021-10-17] MEDS: PROPRANOLOL 20 MG TAB PO SCH ×2 (08:50→11:26)
[2021-10-17] MEDS: RANOLAZINE 500 MG TAB.ER.12H PO SCH ×3 (08:50→19:59)
[2021-10-17] MEDS: allopurinoL 100 MG TAB PO SCH (08:51)
[2021-10-17] MEDS: FERROUS SULFATE 325 MG TAB PO SCH (08:51)
[2021-10-17] MEDS: LORATADINE 10 MG TAB PO SCH (08:51)
[2021-10-17] MEDS: EZETIMIBE 10 MG TAB PO SCH (08:51)
[2021-10-17] MEDS: CHOLECALCIFEROL 25 MCG (1000 IU) TABLET PO SCH (08:51)
[2021-10-17] MEDS: ISOSORBIDE MONONITRATE ER 60 MG TAB.ER.24H PO SCH ×2 (08:52→19:59)
[2021-10-17] MEDS: hydrALAZINE HCL 10 MG TAB PO SCH ×3 (08:52→20:22)
[2021-10-17] MEDS: ASPIRIN 81 MG PO SCH (08:54)
[2021-10-17 08:55] LABS: HGB 12.2 g/dL (13.0-17.0); MCHC 32.1 g/dL (32.0-37.0); MCV 90.5 fL (80.0-97.0); Mean Platelet Volume 11.2 fL (9.5-12.2); NRBC Per 100 WBC 0 /100 WBCS (0.0-0.0); Platelet Count 241 X 10*3/uL (140-440); RDW 13.8 % (11.5-14.5); WBC 7.94 X 10*3/uL (4.50-10.00)
--- NOTE | 2021-10-17 10:32 | P.CRDCN ---
History of Present Illness History of present illness: HISTORY OF PRESENTING ILLNESS This is a 70-year-old gentleman who follows with myself in the office with a past medical history significant for coronary artery disease and prior stenting of the LAD in 2004 and subsequently stenting of the left circumflex in 2012 as well as diabetes and hypertension and dyslipidemia and chronic kidney disease. He underwent a heart catheterization back in 2013 and that the last time when he was found to have chronic total occlusion of the left circumflex with intermediate disease in the RCA and he was treated medically and has done well for the last 6-7 years. Patient has been monitored with his chronic kidney disease by nephrology and recently taken off of diuretics approximately 2 weeks ago. He states since that time he has felt increased swelling and edema as well as increased shortness breath. He states over the last week he has been having episodes of dyspnea with exertion as well as chest tightness with exertion. He states he has had occasional some of these episodes however not consistently other than the last week or 2. His creatinine did improve with stopping the diuretics from 3 down to 2.2. Echo from May 2021 shows EF 60-65% with mild aortic stenosis and mild mitral regurgitation with dilated aortic root. Blood work shows hemoglobin 12.0, BUN 51, creatinine 2.17, troponin 0.012, 0.019, 0.015, proBNP 2600, albumin 3.2. EKG shows normal sinus rhythm with PACs and abnormalities. EKG was read out as atrial fibrillation however obvious P waves noted. Telemetry shows sinus with PACs. D Dimer mildly elevated at 1.1 and therefore VQ scan was performed which was intermediate for PE. REVIEW OF SYSTEMS At the time of my exam: CONSTITUTIONAL: Denies fever or chills. CARDIOVASCULAR: +chest pain, +shortness of breath, +mild orthopnea, no PND or palpitations. RESPIRATORY: Denies cough. GASTROINTESTINAL: Denies abdominal pain, diarrhea, constipation, nausea or vomiting. MUSCULOSKELETAL: Denies myalgias. NEUROLOGIC: Denies numbness, tingling or weakness. ENDOCRINE: Denies fatigue, weight change, polydipsia or polyurina. GENITOURINARY: Denies burning, hematuria or urgency with micturation. HEMATOLOGIC: Denies history of anemia or bleeding. PHYSICAL EXAMINATION Vital signs reviewed. CONSTITUTIONAL: No apparent distress. HEENT: Head is normocephalic. Pupils are equal, round. Sclerae anicteric. Mucous membranes of the mouth are moist. No JVD. No carotid bruit. CHEST EXAMINATION: Lungs are clear to auscultation. No chest wall tenderness is noted on palpation or with deep breathing. HEART EXAMINATION: Regular rate and rhythm. S1, S2 heard. No murmurs, gallops or rub. ABDOMEN: Soft, nontender. Positive bowel sounds. EXTREMITIES: 2+ peripheral pulses, 1+ lower extremity edema and no calf tenderness. NEUROLOGIC EXAMINATION: Patient is awake, alert and oriented x3. ASSESSMENT 1. Acute on chronic systolic heart failure 2. Chest pain and dyspnea on exertion may be related to heart failure versus possibly related to underlying CAD 3. Chronic kidney disease 4. Coronary artery disease with prior history of [employer] treated medically for last 7 years 5. Hypertension 6. Mild aortic stenosis 7. Mild aortic root dilation by most recent echo 8. Elevated d-dimer, VQ scan intermediate PLAN Patient's main symptoms appear related to heart failure with increased edema since stopping diuretics associated with dyspnea with exertion and chest pain. Symptoms did improve with nitro but nitro helps with heart failure symptoms. Monitor response of diuretics and may consider ischemic workup with stress test on Tuesday however monitor his response. Given CKD would like to avoid heart catheterization if possible however further recommendations to follow. Symptoms more likely from heart failure and do not suspect PE. Continue with antianginals as able. Past Medical History Past Medical History: Coronary Artery Disease (CAD), Chest Pain / Angina, Heart Failure, Diabetes Mellitus, Hyperlipidemia, Hypertension, Myocardial Infarction (ME), Renal Disease Additional Past Medical History / Comment(s): 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, coronary artery disease, diabetes mellitus, hypertension, chronic renal failure, hyperlipidemia, JEN Last Myocardial Infarction Date:: 03/04/14 History of Any Multi-Drug Resistant Organisms: None Reported Past Surgical History: Cholecystectomy, Heart Catheterization, Heart Catheterization With Stent Additional Past Surgical History / Comment(s): shoulder, hemmroid, cardiac stent in june 2014, eye surgery Past Anesthesia/Blood Transfusion Reactions: No Reported Reaction Additional Past Anesthesia/Blood Transfusion Reaction / Comment(s): Never had a blood transfusion Date of Last Stent Placement:: 05/2014 Past Psychological History: Anxiety Smoking Status: Former smoker Past Alcohol Use History: None Reported Past Drug Use History: None Reported - Past Family History Father Family Medical History: Cancer Additional Family Medical History / Comment(s): bladder cancer Mother Family Medical History: Diabetes Mellitus Additional Family Medical History / Comment(s): Pancreatic CA Medications and Allergies Home Medications Medication Instructions Recorded Confirmed Type Cetirizine HCl 10 mg PO DAILY 03/03/14 10/16/21 History Nitroglycerin Sl Tabs [Nitrostat] 0.4 mg SL Q5M PRN 03/03/14 10/16/21 History Rosuvastatin Calcium [Crestor] 40 mg PO HS 03/03/14 10/16/21 History Ezetimibe [Zetia] 10 mg PO DAILY 05/19/16 10/16/21 History Ferrous Sulfate [Iron (65 MG 325 mg PO DAILY 05/19/16 10/16/21 History Elemental)] Aspirin EC [Ecotrin Low Dose] 81 mg PO DAILY 05/28/18 10/16/21 History Ergocalciferol (Vitamin D2) 50,000 unit PO Q14D 05/28/18 10/16/21 History [Vitamin D2] Febuxostat [Uloric] 40 mg PO DAILY 05/28/18 10/16/21 History Insulin Aspart (For Pump) [NovoLOG 0.01 unit SQ-PUMP CONTINUOUS 05/28/18 10/16/21 History (For Pump)] Vitamin B Complex 1 cap PO DAILY 05/28/18 10/16/21 History Isosorbide Mononitrate ER [Imdur] 60 mg PO BID 07/05/18 10/16/21 History calcitrioL [Calcitriol] 0.25 mcg PO MOTUWETHFR 07/05/18 10/16/21 History Pramipexole [Mirapex] 0.5 mg PO DAILY PRN 05/02/19 10/16/21 History Ranolazine [Ranexa] 500 mg PO BID 05/02/19 10/16/21 History Propranolol [Inderal] 20 mg PO DAILY 07/28/20 10/16/21 History Dulaglutide [Trulicity] 1.5 mg SQ TU 05/23/21 10/16/21 History Albuterol Inhaler [Ventolin Hfa 2 puff INHALATION RT-QID PRN 08/10/21 10/16/21 History Inhaler] Cholecalciferol [Vitamin D3 (25 25 mcg PO DAILY 08/10/21 10/16/21 History Mcg = 1000 Iu)] Fluticasone Propion/Salmeterol 1 puff INHALATION RT-BID PRN 08/10/21 10/16/21 History [Wixela 100-50 Inhub] Benzonatate [Benzonatate Perle] 200 mg PO Q8H PRN 10/08/21 10/16/21 History methylPREDNISolone Dose Pack 4 mg PO DIRECTED #1 packet 10/10/21 10/16/21 Rx [Medrol Dose Pack] Cholestyramine (with Sugar) 4 gm PO BID PRN 10/16/21 10/16/21 History [Cholestyramine Packet] hydrALAZINE HCL [Apresoline] 10 mg PO TID 10/16/21 10/16/21 History Allergies Allergy/AdvReac Type Severity Reaction Status Date / Time atorvastatin [From Lipitor] AdvReac Unknown Verified 10/16/21 17:17 baclofen AdvReac Unknown Verified 10/16/21 17:17 Physical Exam Vitals: Vital Signs Temp Pulse Pulse Resp BP BP BP 10/17/21 09:13 64 10/17/21 09:00 64 10/17/21 08:40 15 10/17/21 07:00 97.7 F 61 15 159/78 10/17/21 02:31 97.7 F 62 18 166/76 10/16/21 19:13 97.7 F 60 17 188/80 10/16/21 18:32 62 18 170/67 10/16/21 15:57 62 18 183/92 10/16/21 14:59 97.2 F L 68 20 170/67 Pulse Ox 10/17/21 09:13 10/17/21 09:00 10/17/21 08:40 10/17/21 07:00 100 10/17/21 02:31 99 10/16/21 19:13 99 10/16/21 18:32 99 10/16/21 15:57 99 10/16/21 14:59 99 Intake and Output 10/16/21 10/17/21 10/17/21 22:59 06:59 14:59 Intake Total 1188.918 118 Output Total 1750 Balance -561.082 118 Intake: Intake, IV Titration 108.918 Amount Heparin Sod,Pork in 0.45% 108.918 NaCl 25,000 unit In 0.45 % NaCl 1 250ml.bag @ 18 UNITS/KG/HR 18.779 mls/hr IV .[id number] [facility] Rx#: [id number] Oral 1080 118 Output: Urine 1750 Other: Voiding Method Toilet # Voids 1 Weight 104.326 kg 104 kg Results 10/17/21 04:57 10/16/21 16:01 Cardiac Enzymes 10/16/21 10/16/21 10/16/21 Range/Units 16:01 16:01 20:05 AST 36 (17-59) U/L Troponin I <0.012 0.019 (0.000-0.034) ng/mL 10/17/21 Range/Units 00:42 AST (17-59) U/L Troponin I 0.015 (0.000-0.034) ng/mL Coagulation 10/16/21 10/16/21 10/17/21 Range/Units 16:01 19:51 01:38 PT 10.8 11.0 (9.0-12.0) sec APTT 21.8 L 22.2 >200.0 H* (22.0-30.0) sec CBC 10/16/21 10/17/21 Range/Units 16:01 04:57 WBC 6.2 7.94 (3.8-10.6) k/uL RBC 3.97 L 4.20 L (4.30-5.90) m/uL Hgb 12.0 L 12.2 L (13.0-17.5) gm/dL Hct 35.7 L 38.0 L (39.0-53.0) % Plt Count 237 241 (150-450) k/uL Comprehensive Metabolic Panel 10/16/21 Range/Units 16:01 Sodium 137 (137-145) mmol/L Potassium 4.3 (3.5-5.1) mmol/L Chloride 108 H (98-107) mmol/L Carbon Dioxide 20 L (22-30) mmol/L BUN 51 H (9-20) mg/dL Creatinine 2.17 H (0.66-1.25) mg/dL Glucose 293 H (74-99) mg/dL Calcium 8.2 L (8.4-10.2) mg/dL AST 36 (17-59) U/L ALT 43 (4-49) U/L Alkaline Phosphatase 65 (38-126) U/L Total Protein 6.2 L (6.3-8.2) g/dL Albumin 3.2 L (3.5-5.0) g/dL Current Medications Generic Name Dose Route Start Last Admin Trade Name Freq PRN Reason Stop Dose Admin Acetaminophen 650 mg 10/16/21 19:47 Acetaminophen Tab 325 Mg Tab PO Q6HR PRN Mild Pain or Fever > 100.5 Hydrocodone Bitart/Acetaminophen 1 each 10/16/21 19:47 Hydrocodone/Apap 5-325mg 1 Each Tab PO Q4HR PRN Moderate Pain Albuterol Sulfate 2 mg 10/16/21 19:54 10/17/21 09:00 Albuterol Nebulized 2.5 Mg/3 Ml INHALATION 2 mg RT-QID PRN Administration Shortness Of Breath Allopurinol 200 mg 10/17/21 09:00 10/17/21 08:51 Allopurinol 100 Mg Tab PO 200 mg DAILY JOEY Administration Aspirin 81 mg 10/17/21 09:00 10/17/21 08:54 Aspirin 81 Mg PO 81 mg DAILY JOEY Administration Benzonatate 200 mg 10/16/21 19:54 Benzonatate 100 Mg Cap PO Q8H PRN Cough Bisacodyl 5 mg 10/16/21 19:47 Bisacodyl 5 Mg Tablet.Dr PO DAILY PRN Constipation Calcitriol 0.25 mcg 10/16/21 20:30 10/16/21 21:01 Calcitriol 0.25 Mcg Cap PO 0.25 mcg [id number] JOEY Administration Cholecalciferol 25 mcg 10/17/21 09:00 10/17/21 08:51 Cholecalciferol 25 Mcg (1000 Iu) Tablet PO 25 mcg DAILY JOEY Administration Ezetimibe 10 mg 10/17/21 09:00 10/17/21 08:51 Ezetimibe 10 Mg Tab PO 10 mg DAILY JOEY Administration Ferrous Sulfate 325 mg 10/17/21 09:00 10/17/21 08:51 Ferrous Sulfate 325 Mg Tab PO 325 mg DAILY JOEY Administration Furosemide 40 mg 10/17/21 05:00 10/17/21 04:24 Furosemide 10 Mg/Ml 4 Ml Vial IV 40 mg Q8H JOEY Administration Heparin Sodium (Porcine) 0 unit 10/16/21 19:45 Heparin Sodium 1,000 Un/Ml (10ml Vl) IV PER PROTOCOL PRN Low PTT Protocol Hydralazine HCl 10 mg 10/16/21 22:00 10/17/21 08:52 Hydralazine Hcl 10 Mg Tab PO 10 mg TID JOEY Administration Heparin Sodium/Sodium Chloride 250 mls @ 18.779 mls/hr 10/16/21 20:30 10/17/21 04:32 25,000 unit/ Sodium Chloride IV 15 units/kg/hr .[id number] JOEY 15.649 mls/hr Titration Protocol 18 UNITS/KG/HR Dextrose/Water 1,000 mls @ 75 mls/hr 10/17/21 05:24 10/17/21 05:31 Dextrose 5%-Water Iv Soln IV 10/17/21 18:43 30 mls/hr .[id number] ONE Administration Insulin Aspart 0.01 unit 10/16/21 20:00 10/16/21 22:40 Insulin Aspart (For Pump) 100 Unit/Ml Vial SQ-PUMP Not Given CONTINUOUS [facility] Insulin Aspart 0 unit 10/17/21 04:42 Insulin Aspart (Novolog) 100 Unit/Ml Vial SQ DAILY PRN Insulin Pump Replacement Isosorbide Mononitrate 60 mg 10/16/21 21:00 10/17/21 08:52 Isosorbide Mononitrate Er 60 Mg Tab.Er.24h PO 60 mg BID JOEY Administration Loratadine 10 mg 10/17/21 09:00 10/17/21 08:51 Loratadine 10 Mg Tab PO 10 mg DAILY JOEY Administration Melatonin 3 mg 10/16/21 19:47 Melatonin 3 Mg Tablet PO HS PRN Insomnia Miscellaneous Information 1 each 10/17/21 04:42 Insulin Pump Basal Rates 1 Each Misc MISCELLANE Q6HR PRN Blood Sugar - High Protocol Miscellaneous Information 0 unit 10/17/21 07:30 Insulin Pump Meal Bolus 1 Unit Misc MISCELLANE ACHS JOEY Protocol Miscellaneous Information 0 unit 10/17/21 04:42 Insulin Pump Correction Bolus 1 Unit Misc MISCELLANE ACHS PRN Blood Sugar - High Protocol Naloxone HCl 0.2 mg 10/16/21 19:47 Naloxone 0.4 Mg/Ml 1 Ml Vial IV Q2M PRN Opioid Reversal Non-Formulary Medication 40 mg 10/16/21 21:00 10/16/21 21:19 Rosuvastatin Calcium [Crestor] PO Not Given HS JOEY Ondansetron HCl 4 mg 10/16/21 19:47 Ondansetron 4 Mg/2 Ml Vial IVP Q8HR PRN Nausea And Vomiting Pramipexole Dihydrochloride 0.5 mg 10/16/21 19:54 Pramipexole 0.5 Mg Tab PO DAILY PRN RESTLESS LEGS Propranolol HCl 20 mg 10/17/21 09:00 10/17/21 08:50 Propranolol 20 Mg Tab PO Not Given DAILY [facility] Ranolazine 500 mg 10/16/21 21:00 10/17/21 08:50 Ranolazine 500 Mg Tab.Er.12h PO Not Given BID [facility] Intake and Output 10/16/21 10/17/21 10/17/21 22:59 06:59 14:59 Intake Total 1188.918 118 Output Total 1750 Balance -561.082 118 Intake: Intake, IV Titration 108.918 Amount Heparin Sod,Pork in 0.45% 108.918 NaCl 25,000 unit In 0.45 % NaCl 1 250ml.bag @ 18 UNITS/KG/HR 18.779 mls/hr IV .[id number] [facility] Rx#: [id number] Oral 1080 118 Output: Urine 1750 Other: Voiding Method Toilet # Voids 1 Weight 104.326 kg 104 kg 10/17/21 04:57 10/16/21 16:01
[2021-10-17] MEDS: INSULIN PUMP MEAL BOLUS 1 UNIT MISC MISCELLANE SCH ×4 (11:24→23:22)
[2021-10-17 11:35] VITALS: BMI 34.8
[2021-10-17 11:41] LABS: Magnesium 1.8 mg/dL (1.5-2.4)
[2021-10-17 11:47] LABS: African American GFR (CKD) 33.7 (60.0-200.0); BUN/Creat Ratio 20.27 Ratio (12.00-20.00); Blood Urea Nitrogen 44.6 mg/dL (9.0-27.0); Calcium 8.4 mg/dL (8.7-10.3); Non-African American GFR(CKD) 29.1 (60.0-200.0); Potassium 4.1 mmol/L (3.5-5.5)
[2021-10-17 12:09] LABS: Glucose,Whole Blood 318 mg/dL (75-99)
--- NOTE | 2021-10-17 12:48 | ECHOF ---
Referral Reason:chf MEASUREMENTS -------- HEIGHT: 172.7 cm WEIGHT: 103.9 kg BP: IVSd: 1.4 cm (0.6 - 1.1) LVIDd: 6.0 cm (3.9 - 5.3) LVPWd: 1.3 cm (0.6 - 1.1) IVSs: 1.8 cm LVIDs: 5.0 cm LVPWs: 1.4 cm LAESV Index (A-L): 33.74 ml/m Ao Diam: 3.4 cm (2.0 - 3.7) AV Cusp: 1.1 cm (1.5 - 2.6) LA Diam: 3.5 cm (2.7 - 3.8) MV EXCURSION: 23.254 mm (> 18.000) MV EF SLOPE: 67 mm/s (70 - 150) EPSS: 0.6 cm MV E Juan Luis: 0.41 m/s MV DecT: 235 ms MV A Juan Luis: 0.95 m/s MV E/A Ratio: 0.43 AV maxP.70 mmHg AV meanP.91 mmHg FINDINGS -------- Sinus rhythm. This was a technically adequate study. The left ventricular size is normal. There is moderate concentric left ventricular hypertrophy. O verall left ventricular systolic function is low-normal with, an EF between 50 - 55 %. The right ventricle is normal in size. LA is midly dilated 29-33ml/m2. The right atrial size is normal. There is moderate aortic valve sclerosis. Peak/mean gradient across the Aortic Valve is 11.70mmHg / 5.91mmHg. Moderate mitral annular calcification present. No mitral regurgitation. The peak and mean MV gra dients are 7.64mmHg 2.30mmHg as measured by doppler. Mild tricuspid regurgitation present. Right ventricular systolic pressure is normal at < 35 mmHg. Trace/mild (physiologic) pulmonic regurgitation. There is no pericardial effusion. CONCLUSIONS -------- 1. The left ventricular size is normal. 2. There is moderate concentric left ventricular hypertrophy. 3. Overall left ventricular systolic function is low-normal with, an EF between 50 - 55 %. 4. The right ventricle is normal in size. 5. LA is midly dilated 29-33ml/m2. 6. The right atrial size is normal. 7. There is moderate aortic valve sclerosis. 8. Peak/mean gradient across the Aortic Valve is 11.70mmHg / 5.91mmHg. 9. Moderate mitral annular calcification present. 10. No mitral regurgitation. 11. The peak and mean MV gradients are 7.64mmHg 2.30mmHg as measured by doppler. 12. Mild tricuspid regurgitation present. 13. Trace/mild (physiologic) pulmonic regurgitation. 14. There is no pericardial effusion. TAKER OFF DRYING KILN: Cora Rosa RDCS
--- NOTE | 2021-10-17 14:46 | P.CNPUL ---
History of Present Illness Consult date: 10/17/21 Reason for consult: dyspnea History of present illness: 70-year-old male patient with known history of CAD, previous stenting of the LAD in 2004 and circumflex in 2012 in addition to known history of chronic kidney disease, diabetes mellitus, hypertension and hyperlipidemia. Subsequent cardiac catheterization from 2013 showed some disease involving the RCA and he was treated medically for the past several years. He was taken off the diuretics and the patient became more short of breath. He came in with increased lower extremity edema and he was also experiencing some shortness of breath. He did experience some limited chest pain improved with nitroglycerin. His echo from May 2021 showed a preserved LV function. During this current admission, he had a proBNP level of 2600, EKG showed normal sinus rhythm, d-dimer was at 1.1, VQ scan was of an intermediate probability for pulmonary embolism. BUN was 51. Creatinine was up to 2.17 and hemoglobin was 12.0. The patient was started on IV heparin. This patient is an ex-smoker. He did not have any previous history of pulmonary embolism. Doppler of the lower extremities in a negative for DVT. He is currently on room air oxygen. He was started on diuretics. Clinically improving. Diuresing well. Review of Systems Constitutional: Reports weakness, Reports weight gain Eyes: denies as per HPI, denies blurred vision, denies bulging eye, denies decreased vision, denies diplopia, denies discharge, denies dry eye, denies irritation, denies itching, denies pain, denies photophobia, denies loss of peripheral vision, denies loss of vision, denies tunnel vision/blind spots Ears: deny: decreased hearing, ear discharge, earache, tinnitus Ears, nose, mouth and throat: Reports as per HPI Breasts: absent: as per HPI, gynecomastia Cardiovascular: Reports decreased exercise tolerance, Reports dyspnea on exert ion, Reports high blood pressure, Reports leg edema Respiratory: Reports dyspnea Gastrointestinal: Reports as per HPI Genitourinary: Reports as per HPI Musculoskeletal: Reports as per HPI Musculoskeletal: bilateral: ankle swelling, absent: ankle pain, ankle stiffness Integumentary: Reports as per HPI Neurological: Reports as per HPI Psychiatric: Reports as per HPI Endocrine: Reports as per HPI Hematologic/Lymphatic: Reports as per HPI Allergic/Immunologic: Reports as per HPI Past Medical History Past Medical History: Coronary Artery Disease (CAD), Chest Pain / Angina, Heart Failure, Diabetes Mellitus, Hyperlipidemia, Hypertension, Myocardial Infarction ([place]), Renal Disease Additional Past Medical History / Comment(s): 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, coronary a rtery disease, diabetes mellitus, hypertension, chronic renal failure, hyperlipidemia, JEN Last Myocardial Infarction Date:: 03/04/14 History of Any Multi-Drug Resistant Organisms: None Reported Past Surgical History: Cholecystectomy, Heart Catheterization, Heart Catheterization With Stent Additional Past Surgical History / Comment(s): shoulder, hemmroid, cardiac stent in june 2014, eye surgery Past Anesthesia/Blood Transfusion Reactions: No Reported Reaction Additional Past Anesthesia/Blood Transfusion Reaction / Comment(s): Never had a blood transfusion Date of Last Stent Placement:: 05/2014 Past Psychological History: Anxiety Smoking Status: Former smoker Past Alcohol Use History: None Reported Past Drug Use History: None Reported - Past Family History Father Family Medical History: Cancer Additional Family Medical History / Comment(s): bladder cancer Mother Family Medical History: Diabetes Mellitus Additional Family Medical History / Comment(s): Pancreatic CA Medications and Allergies Home Medications Medication Instructions Recorded Confirmed Type Cetirizine HCl 10 mg PO DAILY 03/03/14 10/16/21 History Nitroglycerin Sl Tabs [Nitrostat] 0.4 mg SL Q5M PRN 03/03/14 10/16/21 History Rosuvastatin Calcium [Crestor] 40 mg PO HS 03/03/14 10/16/21 History Ezetimibe [Zetia] 10 mg PO DAILY 05/19/16 10/16/21 History Ferrous Sulfate [Iron (65 MG 325 mg PO DAILY 05/19/16 10/16/21 History Elemental)] Aspirin EC [Ecotrin Low Dose] 81 mg PO DAILY 05/28/18 10/16/21 History Ergocalciferol (Vitamin D2) 50,000 unit PO Q14D 05/28/18 10/16/21 History [Vitamin D2] Febuxostat [Uloric] 40 mg PO DAILY 05/28/18 10/16/21 History Insulin Aspart (For Pump) [NovoLOG 0.01 unit SQ-PUMP CONTINUOUS 05/28/18 History (For Pump)] Vitamin B Complex 1 cap PO DAILY 05/28/18 10/16/21 History Isosorbide Mononitrate ER [Imdur] 60 mg PO BID 07/05/18 10/16/21 History calcitrioL [Calcitriol] 0.25 mcg PO MOTUWETHFR 07/05/18 10/16/21 History Pramipexole [Mirapex] 0.5 mg PO DAILY PRN 05/02/19 10/16/21 History Ranolazine [Ranexa] 500 mg PO BID 05/02/19 10/16/21 History Propranolol [Inderal] 20 mg PO DAILY 07/28/20 10/16/21 History Dulaglutide [Trulicity] 1.5 mg SQ TU 05/23/21 10/16/21 History Albuterol Inhaler [Ventolin Hfa 2 puff INHALATION RT-QID PRN 08/10/21 10/16/21 History Inhaler] Cholecalciferol [Vitamin D3 (25 25 mcg PO DAILY 08/10/21 10/16/21 History Mcg = 1000 Iu)] Fluticasone Propion/Salmeterol 1 puff INHALATION RT-BID PRN 08/10/21 10/16/21 History [Wixela 100-50 Inhub] Benzonatate [Benzonatate Perle] 200 mg PO Q8H PRN 10/08/21 10/16/21 History methylPREDNISolone Dose Pack 4 mg PO DIRECTED #1 packet 10/10/21 10/16/21 Rx [Medrol Dose Pack] Cholestyramine (with Sugar) 4 gm PO BID PRN 10/16/21 10/16/21 History [Cholestyramine Packet] hydrALAZINE HCL [Apresoline] 10 mg PO TID 10/16/21 10/16/21 History Allergies Allergy/AdvReac Type Severity Reaction Status Date / Time atorvastatin [From Lipitor] AdvReac Unknown Verified 10/16/21 17:17 baclofen AdvReac Unknown Verified 10/16/21 17:17 Physical Exam Vitals: Vital Signs Temp Pulse Pulse Resp BP BP BP 10/17/21 14:24 98.1 F 67 16 141/76 10/17/21 09:13 64 10/17/21 09:00 64 10/17/21 08:40 15 10/17/21 07:00 97.7 F 61 15 159/78 10/17/21 02:31 97.7 F 62 18 166/76 10/16/21 19:13 97.7 F 60 17 188/80 10/16/21 18:32 62 18 170/67 10/16/21 15:57 62 18 183/92 10/16/21 14:59 97.2 F L 68 20 170/67 Pulse Ox 10/17/21 14:24 97 10/17/21 09:13 10/17/21 09:00 10/17/21 08:40 10/17/21 07:00 100 10/17/21 02:31 99 10/16/21 19:13 99 10/16/21 18:32 99 10/16/21 15:57 99 10/16/21 14:59 99 Intake and Output 10/16/21 10/17/21 10/17/21 22:59 06:59 14:59 Intake Total 1188.918 359.627 Output Total 1750 950 Balance -561.082 -590.373 Intake: Intake, IV Titration 108.918 123.627 Amount Heparin Sod,Pork in 0.45% 108.918 123.627 NaCl 25,000 unit In 0.45 % NaCl 1 250ml.bag @ 18 UNITS/KG/HR 18.779 mls/hr IV .[id number] [facility] Rx#: [id number] Oral 1080 236 Output: Urine 1750 950 Other: Voiding Method Toilet # Voids 1 1 Weight 104.326 kg 104 kg 104 kg Gen. appearance the patient is calm and comfortable not in acute distress on r oom air oxygen Head exam was generally normal. There was no scleral icterus or corneal arcus. Mucous membranes were moist. CONSTITUTIONAL: No apparent distress. HEENT: Head is normocephalic. Pupils are equal, round. Sclerae anicteric. Mucous membranes of the mouth are moist. No JVD. No carotid bruit. CHEST EXAMINATION: Lungs are clear to auscultation. No chest wall tenderness is noted on palpation or with deep breathing. HEART EXAMINATION: Regular rate and rhythm. S1, S2 heard. No murmurs, gallops or rub. ABDOMEN: Soft, nontender. Positive bowel sounds. EXTREMITIES: 2+ peripheral pulses, 1+ lower extremity edema and no calf tenderness. NEUROLOGIC EXAMINATION: Patient is awake, alert and oriented x3. Examination of the skin revealed no evidence of significant rashes, suspicious appearing nevi or other concerning lesions. Neurologically, the patient is awake and alert and the patient does not have any focal neurological deficit. Cranial nerves are essentially intact. Results - Laboratory Findings CBC and BMP: 10/17/21 04:57 10/17/21 04:57 PT/INR, D-dimer PT 11.0 sec (9.0-12.0) 10/16/21 19:51 INR 1.0 (<1.2) 10/16/21 19:51 D-Dimer 1.13 mg/L FEU (<0.60) H 10/16/21 16:01 Abnormal lab findings: Abnormal Labs 10/16/21 10/16/21 10/16/21 16:01 16:01 16:01 RBC 3.97 L Hgb 12.0 L Hct 35.7 L APTT 21.8 L D-Dimer 1.13 H Chloride 108 H Carbon Dioxide 20 L BUN 51 H Creatinine 2.17 H Est GFR (CKD-EPI)AfAm Est GFR (CKD-EPI)NonAf BUN/Creatinine Ratio Glucose 293 H POC Glucose (mg/dL) Calcium 8.2 L Total Protein 6.2 L Albumin 3.2 L 10/16/21 10/17/21 10/17/21 21:30 01:38 04:27 RBC Hgb Hct APTT >200.0 H* D-Dimer Chloride Carbon Dioxide BUN Creatinine Est GFR (CKD-EPI)AfAm Est GFR (CKD-EPI)NonAf BUN/Creatinine Ratio Glucose POC Glucose (mg/dL) 266 H 64 L Calcium Total Protein Albumin 10/17/21 10/17/21 10/17/21 04:47 04:57 04:57 RBC 4.20 L Hgb 12.2 L Hct 38.0 L APTT D-Dimer Chloride Carbon Dioxide BUN 44.6 H Creatinine 2.2 H Est GFR (CKD-EPI)AfAm 33.7 L Est GFR (CKD-EPI)NonAf 29.1 L BUN/Creatinine Ratio 20.27 H Glucose 119 H POC Glucose (mg/dL) 130 H Calcium 8.4 L Total Protein Albumin 10/17/21 10/17/21 10/17/21 08:25 10:18 12:07 RBC Hgb Hct APTT 135.0 H* D-Dimer Chloride Carbon Dioxide BUN Creatinine Est GFR (CKD-EPI)AfAm Est GFR (CKD-EPI)NonAf BUN/Creatinine Ratio Glucose POC Glucose (mg/dL) 69 L 318 H Calcium Total Protein Albumin - Diagnostic Findings Chest x-ray: image reviewed Assessment and Plan Plan: 1 acute on chronic dyspnea, likely on the basis of some increased fluid due to discontinuation of diuretics. There could be a component of diastolic heart failure in addition. 2 known history of COPD with previous coronary stenting, last cardiac tlyer terization was done in 2013 and the patient is seeing medical treatment 3 chronic kidney disease stage III 4 diabetes mellitus 5 hypertension 6 mild aortic stenosis and dilatation of the aortic root 7 hyperlipidemia 8 COPD, maintained on Wixela Inhub on outpatient basis in addition to Ventolin HFA to be used on an as-needed basis. 9 severe obstructive sleep apnea with an AHI of 35, nontolerant to CPAP therapy Plan No clinical suspicion for pulmonary embolism Anticoagulation per cardiology Continue diuresis monitor renal function Currently on room air oxygen Doppler lower extremity negative VQ to scan of intermittent probability extremely nonspecific. I would not suggest pursuing with further testing regarding the possibility of pulmonary embolism We'll follow
[2021-10-17 17:20] LABS: Glucose,Whole Blood 218 mg/dL (75-99)
--- NOTE | 2021-10-17 17:32 | P.NPCON ---
History of Present Illness - Reason for Consult chronic renal failure - History of Present Illness Patient is a 70-year-old male with history of chronic kidney disease NKF stage IV with a stent creatinine around 3 mg/dL but as low as 2.4 on 08/14/2021. Etiology is diabetic kidney disease. Creatinine was high as 3.58 recently on admission on 10/08/2021. At that time diuretics were held. He had been ad mitted with influenza at that time. Patient was discharged home on 10/10/2021. He is readmitted now with significant shortness of breath increased weight gain and significant lower extremity edema. Patient is currently being diuresed. Ejection fraction 60-65% on echo done in May 2021 Currently with good urine output. Serum creatinine at 2.1-2.2 mg/dL this admission. Review of Systems As per HPI Past Medical History Past Medical History: Coronary Artery Disease (CAD), Chest Pain / Angina, Heart Failure, Diabetes Mellitus, Hyperlipidemia, Hypertension, Myocardial Infarction ([place]), Renal Disease Additional Past Medical History / Comment(s): 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, coronary artery disease, diabetes mellitus, hypertension, chronic renal failure, hyperlipidemia, JEN Last Myocardial Infarction Date:: 03/04/14 History of Any Multi-Drug Resistant Organisms: None Reported Past Surgical History: Cholecystectomy, Heart Catheterization, Heart Catheterization With Stent Additional Past Surgical History / Comment(s): shoulder, hemmroid, cardiac stent in june 2014, eye surgery Past Anesthesia/Blood Transfusion Reactions: No Reported Reaction Additional Past Anesthesia/Blood Transfusion Reaction / Comment(s): Never had a blood transfusion Date of Last Stent Placement:: 05/2014 Past Psychological History: Anxiety Smoking Status: Former smoker Past Alcohol Use History: None Reported Past Drug Use History: None Reported - Past Family History Father Family Medical History: Cancer Additional Family Medical History / Comment(s): bladder cancer Mother Family Medical History: Diabetes Mellitus Additional Family Medical History / Comment(s): Pancreatic CA Medications and Allergies Home Medications Medication Instructions Recorded Confirmed Type Cetirizine HCl 10 mg PO DAILY 03/03/14 10/16/21 History Nitroglycerin Sl Tabs [Nitrostat] 0.4 mg SL Q5M PRN 03/03/14 10/16/21 History Rosuvastatin Calcium [Crestor] 40 mg PO HS 03/03/14 10/16/21 History Ezetimibe [Zetia] 10 mg PO DAILY 05/19/16 10/16/21 History Ferrous Sulfate [Iron (65 MG 325 mg PO DAILY 05/19/16 10/16/21 History Elemental)] Aspirin EC [Ecotrin Low Dose] 81 mg PO DAILY 05/28/18 10/16/21 History Ergocalciferol (Vitamin D2) 50,000 unit PO Q14D 05/28/18 10/16/21 History [Vitamin D2] Febuxostat [Uloric] 40 mg PO DAILY 05/28/18 10/16/21 History Insulin Aspart (For Pump) [NovoLOG 0.01 unit SQ-PUMP CONTINUOUS 05/28/18 10/16/21 History (For Pump)] Vitamin B Complex 1 cap PO DAILY 05/28/18 10/16/21 History Isosorbide Mononitrate ER [Imdur] 60 mg PO BID 07/05/18 10/16/21 History calcitrioL [Calcitriol] 0.25 mcg PO MOTUWETHFR 07/05/18 10/16/21 History Pramipexole [Mirapex] 0.5 mg PO DAILY PRN 05/02/19 10/16/21 History Ranolazine [Ranexa] 500 mg PO BID 05/02/19 10/16/21 History Propranolol [Inderal] 20 mg PO DAILY 07/28/20 10/16/21 History Dulaglutide [Trulicity] 1.5 mg SQ TU 05/23/21 10/16/21 History Albuterol Inhaler [Ventolin Hfa 2 puff INHALATION RT-QID PRN 08/10/21 10/16/21 History Inhaler] Cholecalciferol [Vitamin D3 (25 25 mcg PO DAILY 08/10/21 10/16/21 History Mcg = 1000 Iu)] Fluticasone Propion/Salmeterol 1 puff INHALATION RT-BID PRN 08/10/21 10/16/21 History [Wixela 100-50 Inhub] Benzonatate [Benzonatate Perle] 200 mg PO Q8H PRN 10/08/21 10/16/21 History methylPREDNISolone Dose Pack 4 mg PO DIRECTED #1 packet 10/10/21 10/16/21 Rx [Medrol Dose Pack] Cholestyramine (with Sugar) 4 gm PO BID PRN 10/16/21 10/16/21 History [Cholestyramine Packet] hydrALAZINE HCL [Apresoline] 10 mg PO TID 10/16/21 10/16/21 History Allergies Allergy/AdvReac Type Severity Reaction Status Date / Time atorvastatin [From Lipitor] AdvReac Unknown Verified 10/16/21 17:17 baclofen AdvReac Unknown Verified 10/16/21 17:17 Physical Exam Vitals: Vital Signs Temp Pulse Pulse Resp BP BP BP 10/17/21 14:24 98.1 F 67 16 141/76 10/17/21 09:13 64 10/17/21 09:00 64 10/17/21 08:40 15 10/17/21 07:00 97.7 F 61 15 159/78 10/17/21 02:31 97.7 F 62 18 166/76 10/16/21 19:13 97.7 F 60 17 188/80 10/16/21 18:32 62 18 170/67 Pulse Ox 10/17/21 14:24 97 10/17/21 09:13 10/17/21 09:00 10/17/21 08:40 10/17/21 07:00 100 10/17/21 02:31 99 10/16/21 19:13 99 10/16/21 18:32 99 Intake and Output 10/17/21 10/17/21 10/17/21 06:59 14:59 22:59 Intake Total 1188.918 359.627 Output Total 1750 950 Balance -561.082 -590.373 Intake: Intake, IV Titration 108.918 123.627 Amount Heparin Sod,Pork in 0.45% 108.918 123.627 NaCl 25,000 unit In 0.45 % NaCl 1 250ml.bag @ 18 UNITS/KG/HR 18.779 mls/hr IV .[id number] [facility] Rx#: [id number] Oral 1080 236 Output: Urine 1750 950 Other: Voiding Method Toilet # Voids 1 Weight 104 kg 104 kg Patient is awake comfortable. He is not in any acute distress. Alert oriented 3. Examination of the heart S1 and S2 Examination lungs bilateral breath sounds are heard Abdomen is soft nontender Examination lower extremities shows 2+ edema [employer] exam grossly intact Results - Lab Results Most recent lab results Calcium 8.4 mg/dL (8.7-10.3) L 10/17/21 04:57 Magnesium 1.8 mg/dL (1.5-2.4) 10/17/21 04:57 10/17/21 04:57 10/17/21 04:57 Assessment and Plan Assessment: 1. Acute kidney injury last admission mostly ATN possibly related to underlying influenza. 2. Chronic kidney disease NKF stage 4-5 with baseline creatinine around 3 mg/dL. It has been as low as 2.4 however this may have been and patient was volume overloaded. Etiology is diabetic kidney disease 3. Volume overload 4. Acute on chronic CHF currently ejection fraction 50-55%. Plan: Continue to diurese patient. Repeat labs in a.m. Avoid nephrotoxic agents.
[2021-10-17] MEDS: HEPARIN SOD,PORK IN 0.45% NACL 25,000 UNIT in 0.45% NACL 1 250ML.BAG IV SCH (17:46)
--- NOTE | 2021-10-17 18:35 | P.PN ---
Subjective Progress Note Date: 10/17/21 (delayed charting seen at 1115) Principal diagnosis: shortness of breath Patient is a 70-year-old male with coronary artery disease status post stent placement, congestive heart failure ( Hx of EF 45-50% now recoevered , diabetes, hypertension, and dyslipidemia who presented to the ER with complaints of worsening shortness of breath. On arrival to the ER he is on be hypertensive with blood pressure 170/67. Initial laboratory analysis showed hemoglobin 12, creatinine 2.17 consistent with his CKD, glucose 293, an elevated BNP at 2610. Chest x-ray showed no acute process. His d-dimer was elevated at 1.13 however he was not a good candidate for CTA of the chest secondary to his chronic kidney disease. Of note patient was recently hospitalized here from 10/08/21 through 10/10/21 secondary to acute kidney injury on chronic kidney disease and influenza. During that stay he was found to have acute kidney injury and hyponatremia and subsequently was discharged off his spironolactone and hydrochlorothiazide. He is on IV Lasix. He had an intermediate VQ scan was subsequently started on a heparin drip. Bilateral lower extremity venous Dopplers revealed no evidence of DVT but some rouleaux formation. Repeat echocardiogram demonstrated ejection fraction 50-55% with moderate aortic sclerosis and a normal RVSP. His heparin drip was therefore stopped. Nephrology and cardiology were consulted. Pulmonary was consulted as well. Everyone agreed with probable acute diastolic congestive heart failure. Patient seen and examined at bedside. His breathing is better than yesterday. No additional chest pain. Legs are still swollen but somewhat better. All questions answered. General: non toxic, no distress, appears at stated age Derm: warm, dry Head: atraumatic, normocephalic, symmetric Eyes: EOMI, no lid lag, anicteric sclera Mouth: no lip lesion, mucus membranes moist Cardiovascular: S1S2 reg, no murmur, positive posterior tibial pulse bilateral, Lungs: Crackles bilateral bases , no accessory muscle use Abdominal: soft, nontender to palpation, no guarding, no appreciable organomegaly Ext: no gross muscle atrophy, 2+ edema, no contractures Neuro: CN II-XI grossly intact, no focal neuro deficits Psych: Alert, oriented, appropriate affect Assessment/plan: Acute exacerbation of diastolic CHF with most recent ejection fraction 50%, Recent influenza, bronchitis -IV Lasix -Strict I's and O's, daily weights -Patient was just taken off of his hydrochlorothiazide and spironolactone after his last hospital stay. -Continue with Inderal, patient not chronically on SILVER inhibitor. -Cardiology recommendations appreciated Chest pain, non cardiac -Consult cardiology reca appreciated - BB, ASA, Statin DM2 on insulin pump with hyperglycemia/hypoglycemia - patient to use pump and CGM with us following accucheck - A1C 9.3 - outpatinet follow-up - patient is very brittle. -Hold trsarahiy while in the hospital - insulin pump was held this AM and then restarted Chronic kidney disease stage IV with recent CINDY -nephrology recs -Diuresis -Avoid additional nephrotoxic agents Chronic: HTN HLD Gout JEN -Has been noncompliant with CPAP secondary to cough. DVT prophylaxis: Lovenox Discussed with: patient, nursing Anticipated discharge date: in 2-[address]: home A total of 30 minutes was spent on the care of this complex patient more than 50% of the time was spent in counseling and care coordination. Objective - Vital Signs Vital signs: Vital Signs Temp 98.1 F 10/17/21 14:24 Pulse 67 10/17/21 14:24 Resp 16 10/17/21 17:31 BP 141/76 10/17/21 14:24 Pulse Ox 97 10/17/21 14:24 Intake & Output 10/16/21 10/17/21 10/17/21 18:59 06:59 18:59 Intake Total 1188.918 359.627 Output Total 1750 950 Balance -561.082 -590.373 Weight 104.326 kg 104 kg 104 kg Intake: Intake, IV Titration 108.918 123.627 Amount Heparin Sod,Pork in 0.45% 108.918 123.627 NaCl 25,000 unit In 0.45 % NaCl 1 250ml.bag @ 18 UNITS/KG/HR 18.779 mls/hr IV .[id number] [facility] Rx#: [id number] Oral 1080 236 Output: Urine 1750 950 Other: Voiding Method Toilet # Voids 1 1 - Labs CBC & Chem 7: 10/17/21 04:57 10/17/21 04:57 Labs: Abnormal Lab Results - Last 24 Hours (Table) 10/16/21 10/17/21 10/17/21 Range/Units 21:30 01:38 04:27 RBC (4.40-5.60) X 10*6/uL Hgb (13.0-17.0) g/dL Hct (39.6-50.0) % APTT >200.0 H* (22.0-30.0) sec BUN (9.0-27.0) mg/dL Creatinine (0.6-1.5) mg/dL Est GFR (CKD-EPI)AfAm (60.0-200.0) Est GFR (CKD-EPI)NonAf (60.0-200.0) BUN/Creatinine Ratio (12.00-20.00) Ratio Glucose (70-110) mg/dL POC Glucose (mg/dL) 266 H 64 L (75-99) mg/dL Calcium (8.7-10.3) mg/dL 10/17/21 10/17/21 10/17/21 Range/Units 04:47 04:57 04:57 RBC 4.20 L (4.40-5.60) X 10*6/uL Hgb 12.2 L (13.0-17.0) g/dL Hct 38.0 L (39.6-50.0) % APTT (22.0-30.0) sec BUN 44.6 H (9.0-27.0) mg/dL Creatinine 2.2 H (0.6-1.5) mg/dL Est GFR (CKD-EPI)AfAm 33.7 L (60.0-200.0) Est GFR (CKD-EPI)NonAf 29.1 L (60.0-200.0) BUN/Creatinine Ratio 20.27 H (12.00-20.00) Ratio Glucose 119 H (70-110) mg/dL POC Glucose (mg/dL) 130 H (75-99) mg/dL Calcium 8.4 L (8.7-10.3) mg/dL 10/17/21 10/17/21 10/17/21 Range/Units 08:25 10:18 12:07 RBC (4.40-5.60) X 10*6/uL Hgb (13.0-17.0) g/dL Hct (39.6-50.0) % APTT 135.0 H* (22.0-30.0) sec BUN (9.0-27.0) mg/dL Creatinine (0.6-1.5) mg/dL Est GFR (CKD-EPI)AfAm (60.0-200.0) Est GFR (CKD-EPI)NonAf (60.0-200.0) BUN/Creatinine Ratio (12.00-20.00) Ratio Glucose (70-110) mg/dL POC Glucose (mg/dL) 69 L 318 H (75-99) mg/dL Calcium (8.7-10.3) mg/dL 10/17/21 Range/Units 17:19 RBC (4.40-5.60) X 10*6/uL Hgb (13.0-17.0) g/dL Hct (39.6-50.0) % APTT (22.0-30.0) sec BUN (9.0-27.0) mg/dL Creatinine (0.6-1.5) mg/dL Est GFR (CKD-EPI)AfAm (60.0-200.0) Est GFR (CKD-EPI)NonAf (60.0-200.0) BUN/Creatinine Ratio (12.00-20.00) Ratio Glucose (70-110) mg/dL POC Glucose (mg/dL) 218 H (75-99) mg/dL Calcium (8.7-10.3) mg/dL
[2021-10-17] MEDS: NON FORMULARY DRUG (Rosuvastatin Calcium [Crestor] 40 MG Tablet) PO SCH (19:35)
[2021-10-17] MEDS: ALBUTEROL NEBULIZED 2.5 MG/3 ML INHALATION PRN (20:29)
[2021-10-17 20:47] LABS: Glucose,Whole Blood 202 mg/dL (75-99)
[2021-10-18 02:19] LABS: Glucose,Whole Blood 58 mg/dL (75-99)
[2021-10-18 02:36] LABS: Glucose,Whole Blood 61 mg/dL (75-99)
[2021-10-18 02:54] LABS: Glucose,Whole Blood 74 mg/dL (75-99)
[2021-10-18 03:27] LABS: Glucose,Whole Blood 162 mg/dL (75-99)
[2021-10-18] MEDS: FUROSEMIDE 10 MG/ML 4 ML VIAL IV SCH ×3 (05:53→16:42)
[2021-10-18 06:38] LABS: HCT 41.1 % (39.0-53.0); HGB 13.1 gm/dL (13.0-17.5); MCHC 31.8 g/dL (31.0-37.0); MCV 94.5 fL (80.0-100.0); Platelet Count 241 k/uL (150-450); RBC 4.35 m/uL (4.30-5.90); RDW 14.1 % (11.5-15.5); WBC 8.8 k/uL (3.8-10.6)
[2021-10-18 06:50] LABS: African American GFR (CKD) 28 (>60 ml/min/1.73 sqM); Anion Gap 7 mmol/L; Blood Urea Nitrogen 55 mg/dL (9-20); Calcium 8.3 mg/dL (8.4-10.2); Carbon Dioxide 24 mmol/L (22-30); Chloride 104 mmol/L (98-107); Glucose 183 mg/dL (74-99); Magnesium 1.6 mg/dL (1.6-2.3); Non-African American GFR(CKD) 24 (>60 ml/min/1.73 sqM); Potassium 4.8 mmol/L (3.5-5.1); Sodium 135 mmol/L (137-145)
[2021-10-18 07:50] LABS: Glucose,Whole Blood 160 mg/dL (75-99)
[2021-10-18] MEDS: INSULIN PUMP MEAL BOLUS 1 UNIT MISC MISCELLANE SCH ×6 (08:14→20:33)
[2021-10-18] MEDS: EZETIMIBE 10 MG TAB PO SCH (08:16)
[2021-10-18] MEDS: ISOSORBIDE MONONITRATE ER 60 MG TAB.ER.24H PO SCH ×2 (08:16→19:47)
[2021-10-18] MEDS: allopurinoL 100 MG TAB PO SCH (08:16)
[2021-10-18] MEDS: LORATADINE 10 MG TAB PO SCH (08:16)
[2021-10-18] MEDS: CHOLECALCIFEROL 25 MCG (1000 IU) TABLET PO SCH (08:16)
[2021-10-18] MEDS: FERROUS SULFATE 325 MG TAB PO SCH (08:16)
[2021-10-18] MEDS: PROPRANOLOL 20 MG TAB PO SCH (08:16)
[2021-10-18] MEDS: ASPIRIN 81 MG PO SCH (08:16)
[2021-10-18] MEDS: hydrALAZINE HCL 10 MG TAB PO SCH ×3 (08:16→19:48)
[2021-10-18] MEDS: RANOLAZINE 500 MG TAB.ER.12H PO SCH ×2 (08:17→19:47)
[2021-10-18] MEDS: ALBUTEROL NEBULIZED 2.5 MG/3 ML INHALATION PRN ×2 (08:35→20:24)
[2021-10-18] MEDS ORDERED: ENOXAPARIN 40 MG/0.4 ML SYRINGE SQ SCH (09:00)
--- NOTE | 2021-10-18 11:56 | P.PN ---
Subjective Progress Note Date: 10/18/21 HISTORY OF PRESENTING ILLNESS This is a 70-year-old gentleman who follows with myself in the office with a past medical history significant for coronary artery disease and prior stenting of the LAD in 2004 and subsequently stenting of the left circumflex in 2012 as well as diabetes and hypertension and dyslipidemia and chronic kidney disease. He underwent a heart catheterization back in 2013 and that the last time when he was found to have chronic total occlusion of the left circumflex with interme diate disease in the RCA and he was treated medically and has done well for the last 6-7 years. Patient has been monitored with his chronic kidney disease by nephrology and recently taken off of diuretics approximately 2 weeks ago. He states since that time he has felt increased swelling and edema as well as increased shortness breath. He states over the last week he has been having episodes of dyspnea with exertion as well as chest tightness with exertion. He states he has had occasional some of these episodes however not consistently other than the last week or 2. His creatinine did improve with stopping the diuretics from 3 down to 2.2. Echo from May 2021 shows EF 60-65% with mild aortic stenosis and mild mitral regurgitation with dilated aortic root. Blood work shows hemoglobin 12.0, BUN 51, creatinine 2.17, troponin 0.012, 0.019, 0.015, proBNP 2600, albumin 3.2. EKG shows normal sinus rhythm with PACs and abnormalities. EKG was read out as atrial fibrillation however obvious P waves noted. Telemetry shows sinus with PACs. D Dimer mildly elevated at 1.1 and therefore VQ scan was performed which was intermediate for PE. 10/18: Patient denies any chest pain. He states that his shortness of breath and lower extremity edema is improved. Patient states that he is urinating well. He walked the halls twice last evening and repeated again this morning and noticed that his breathing is improved with activity. He is currently on Lasix 40 mg IV every 8 hours and was decreased frequency to every 12 hours by pulmonary medicine. No documented weight change. Repeat blood work reveals BUN of [address] Cadena is following for acute kidney injury. Echocardiogram reveals EF of 50-55%, moderate aortic valve sclerosis, gradient over aortic valve is 11.7/5.91 mmHg. Mild tricuspid regurgitation, trace pulmonary regurgitation. REVIEW OF SYSTEMS At the time of my exam: CONSTITUTIONAL: Denies fever or chills. CARDIOVASCULAR: Denies chest pain, +shortness of breath, +mild orthopnea, no PND or palpitations. RESPIRATORY: Denies cough. GASTROINTESTINAL: Denies abdominal pain, diarrhea, constipation, nausea or vomiting. MUSCULOSKELETAL: Denies myalgias. NEUROLOGIC: Denies numbness, tingling or weakness. ENDOCRINE: Denies fatigue, weight change, polydipsia or polyurina. GENITOURINARY: Denies burning, hematuria or urgency with micturation. HEMATOLOGIC: Denies history of anemia or bleeding. PHYSICAL EXAMINATION Vital signs reviewed. CONSTITUTIONAL: No apparent distress. HEENT: Head is normocephalic. Pupils are equal, round. Sclerae anicteric. Mucous membranes of the mouth are moist. No JVD. No carotid bruit. CHEST EXAMINATION: Lungs are clear to auscultation. No chest wall tenderness is noted on palpation or with deep breathing. HEART EXAMINATION: Regular rate and rhythm. S1, S2 heard. No murmurs, gallops or rub. ABDOMEN: Soft, nontender. Positive bowel sounds. EXTREMITIES: 2+ peripheral pulses, trace lower extremity edema and no calf tenderness. NEUROLOGIC EXAMINATION: Patient is awake, alert and oriented x3. ASSESSMENT 1. Acute on chronic systolic heart failure 2. Chest pain and dyspnea on exertion may be related to heart failure versus possibly related to underlying CAD 3. Chronic kidney disease 4. Coronary artery disease with prior history of [employer] treated medically for last 7 years 5. Hypertension 6. Mild aortic stenosis 7. Mild aortic root dilation by most recent echo 8. Elevated d-dimer, VQ scan intermediate PLAN Patient's main symptoms appear related to heart failure with increased edema since stopping diuretics associated with dyspnea with exertion and chest pain. Symptoms did improve with nitro but nitro helps with heart failure symptoms. Noted improvement of patient's condition IV diuretics and will continue for one more day. Ischemic workup with stress test on Tuesday. Given CKD would like to avoid heart catheterization if possible however further recommendations to follow. Symptoms more likely from heart failure and do not suspect PE. Continue with antianginals as able. Nurse practitioner note has been reviewed, I agree with documented findings and plan of care. Patient was seen and examined. Objective - Vital Signs Vital signs: Vital Signs Temp 97.8 F 10/18/21 07:15 Pulse 80 03/20/22 08:36 Resp 16 10/18/21 07:15 BP 154/79 10/18/21 07:15 Pulse Ox 99 10/18/21 07:15 Intake & Output 10/17/21 10/18/21 10/18/21 18:59 06:59 18:59 Intake Total 359.627 Output Total 950 1500 Balance -590.373 -1500 Weight 104 kg 104.3 kg Intake: Intake, IV Titration 123.627 Amount Heparin Sod,Pork in 0.45% 123.627 NaCl 25,000 unit In 0.45 % NaCl 1 250ml.bag @ 18 UNITS/KG/HR 18.779 mls/hr IV .[id number] [facility] Rx#: [id number] Oral 236 Output: Urine 950 1500 Other: Voiding Method Toilet Toilet # Voids 1 - Labs CBC & Chem 7: 10/18/21 06:17 10/18/21 06:17 Labs: Abnormal Lab Results - Last 24 Hours (Table) 10/17/21 10/17/21 10/17/21 Range/Units 04:57 04:57 10:18 RBC 4.20 L (4.40-5.60) X 10*6/uL Hgb 12.2 L (13.0-17.0) g/dL Hct 38.0 L (39.6-50.0) % APTT 135.0 H* (22.0-30.0) sec Sodium (137-145) mmol/L BUN 44.6 H (9.0-27.0) mg/dL Creatinine 2.2 H (0.6-1.5) mg/dL Est GFR (CKD-EPI)AfAm 33.7 L (60.0-200.0) Est GFR (CKD-EPI)NonAf 29.1 L (60.0-200.0) BUN/Creatinine Ratio 20.27 H (12.00-20.00) Ratio Glucose 119 H (70-110) mg/dL POC Glucose (mg/dL) (75-99) mg/dL Calcium 8.4 L (8.7-10.3) mg/dL 10/17/21 10/17/21 10/17/21 Range/Units 12:07 17:19 20:45 RBC (4.40-5.60) X 10*6/uL Hgb (13.0-17.0) g/dL Hct (39.6-50.0) % APTT (22.0-30.0) sec Sodium (137-145) mmol/L BUN (9.0-27.0) mg/dL Creatinine (0.6-1.5) mg/dL Est GFR (CKD-EPI)AfAm (60.0-200.0) Est GFR (CKD-EPI)NonAf (60.0-200.0) BUN/Creatinine Ratio (12.00-20.00) Ratio Glucose (70-110) mg/dL POC Glucose (mg/dL) 318 H 218 H 202 H (75-99) mg/dL Calcium (8.7-10.3) mg/dL 10/18/21 10/18/21 10/18/21 Range/Units 02:18 02:35 02:53 RBC (4.40-5.60) X 10*6/uL Hgb (13.0-17.0) g/dL Hct (39.6-50.0) % APTT (22.0-30.0) sec Sodium (137-145) mmol/L BUN (9.0-27.0) mg/dL Creatinine (0.6-1.5) mg/dL Est GFR (CKD-EPI)AfAm (60.0-200.0) Est GFR (CKD-EPI)NonAf (60.0-200.0) BUN/Creatinine Ratio (12.00-20.00) Ratio Glucose (70-110) mg/dL POC Glucose (mg/dL) 58 L 61 L 74 L (75-99) mg/dL Calcium (8.7-10.3) mg/dL 10/18/21 10/18/21 10/18/21 Range/Units 03:26 06:17 07:48 RBC (4.40-5.60) X 10*6/uL Hgb (13.0-17.0) g/dL Hct (39.6-50.0) % APTT (22.0-30.0) sec Sodium 135 L (137-145) mmol/L BUN 55 H (9.0-27.0) mg/dL Creatinine 2.56 H (0.6-1.5) mg/dL Est GFR (CKD-EPI)AfAm (60.0-200.0) Est GFR (CKD-EPI)NonAf (60.0-200.0) BUN/Creatinine Ratio (12.00-20.00) Ratio Glucose 183 H (70-110) mg/dL POC Glucose (mg/dL) 162 H 160 H (75-99) mg/dL Calcium 8.3 L (8.7-10.3) mg/dL
[2021-10-18 12:16] LABS: Glucose,Whole Blood 127 mg/dL (75-99)
--- NOTE | 2021-10-18 14:07 | P.PN ---
Subjective Pt is seen for f/u for CINDY on top of CKD. CKD stage 4 with baseline cr around 3 mg/dL. Currently being diuresed and feeling better. Cr 2.5 today. Good UOP. Objective - Vital Signs Vital signs: Vital Signs Temp 97.8 F 10/18/21 07:15 Pulse 80 10/18/21 08:46 Resp 16 10/18/21 07:15 BP 154/79 10/18/21 07:15 Pulse Ox 99 10/18/21 07:15 Intake & Output 10/17/21 10/18/21 10/18/21 18:59 06:59 18:59 Intake Total 359.627 Output Total 950 1500 1200 Balance -590.373 -1500 -1200 Weight 104 kg 104.3 kg Intake: Intake, IV Titration 123.627 Amount Heparin Sod,Pork in 0.45% 123.627 NaCl 25,000 unit In 0.45 % NaCl 1 250ml.bag @ 18 UNITS/KG/HR 18.779 mls/hr IV .[id number] [facility] Rx#: [id number] Oral 236 Output: Urine 950 1500 1200 Other: Voiding Method Toilet Toilet # Voids 1 - Exam Awake, comfortable No distress. Lungs are clear with decreased breath sounds at bases. Heart sounds are heard. Extremities show edema 2+ bilateral [employer] exam grossly intact - Labs CBC & Chem 7: 10/18/21 06:17 10/18/21 06:17 Labs: Abnormal Lab Results - Last 24 Hours (Table) 10/17/21 10/17/21 10/18/21 Range/Units 17:19 20:45 02:18 Sodium (137-145) mmol/L BUN (9-20) mg/dL Creatinine (0.66-1.25) mg/dL Glucose (74-99) mg/dL POC Glucose (mg/dL) 218 H 202 H 58 L (75-99) mg/dL Calcium (8.4-10.2) mg/dL 10/18/21 10/18/21 10/18/21 Range/Units 02:35 02:53 03:26 Sodium (137-145) mmol/L BUN (9-20) mg/dL Creatinine (0.66-1.25) mg/dL Glucose (74-99) mg/dL POC Glucose (mg/dL) 61 L 74 L 162 H (75-99) mg/dL Calcium (8.4-10.2) mg/dL 10/18/21 10/18/21 10/18/21 Range/Units 06:17 07:48 12:15 Sodium 135 L (137-145) mmol/L BUN 55 H (9-20) mg/dL Creatinine 2.56 H (0.66-1.25) mg/dL Glucose 183 H (74-99) mg/dL POC Glucose (mg/dL) 160 H 127 H (75-99) mg/dL Calcium 8.3 L (8.4-10.2) mg/dL Assessment and Plan Assessment: 1. Acute kidney injury last admission mostly ATN possibly related to underlying influenza. 2. Chronic kidney disease NKF stage 4-5 with baseline creatinine around 3 m g/dL. It has been as low as 2.4 however this may have been and patient was volume overloaded. Etiology is diabetic kidney disease 3. Volume overload 4. Acute on chronic CHF currently ejection fraction 50-55%. Plan: Continue to diurese patient. Repeat labs in a.m. Avoid nephrotoxic agents.
--- NOTE | 2021-10-18 14:20 | P.PN ---
Subjective Progress Note Date: 10/18/21 (delayed charting seen at 1230) Principal diagnosis: shortness of breath Patient is a 70-year-old male with coronary artery disease status post stent placement, congestive heart failure ( Hx of EF 45-50% now recoevered , diabetes, hypertension, and dyslipidemia who presented to the ER with complaints of worsening shortness of breath. On arrival to the ER he is on be hypertensive with blood pressure 170/67. Initial laboratory analysis showed hemoglobin 12, creatinine 2.17 consistent with his CKD, glucose 293, an elevated BNP at 2610. Chest x-ray showed no acute process. His d-dimer was elevated at 1.13 however he was not a good candidate for CTA of the chest secondary to his chronic kidney disease. Of note patient was recently hospitalized here from 10/08/21 through 10/10/21 secondary to acute kidney injury on chronic kidney disease and influenza. During that stay he was found to have acute kidney injury and hyponatremia and subsequently was discharged off his spironolactone and hydrochlorothiazide. He is on IV Lasix. He had an intermediate VQ scan was subsequently started on a heparin drip. Bilateral lower extremity venous Dopplers revealed no evidence of DVT but some rouleaux formation. Repeat echocardiogram demonstrated ejection fraction 50-55% with moderate aortic sclerosis and a normal RVSP. His heparin drip was therefore stopped. Nephrology and cardiology were consulted. Pulmonary was consulted as well. Practicioners agreed with probable acute diastolic congestive heart failure. Patient seen and examined at bedside. His breathing is slightly better. Legs are still swollen but improving slowly. All questions answered. PEr patient he is to have a stress test in AM. We discussed stopping insulin pump at midnight due to frequent hypoglycemia this admission. General: non toxic, no distress, appears at stated age Derm: warm, dry Head: atraumatic, normocephalic, symmetric Eyes: EOMI, no lid lag, anicteric sclera Mouth: no lip lesion, mucus membranes moist Cardiovascular: S1S2 reg, no murmur, positive posterior tibial pulse bilateral, Lungs: Crackles bilateral bases , no accessory muscle use Abdominal: soft, nontender to palpation, no guarding, no appreciable organomegaly Ext: no gross muscle atrophy, 2+ edema, no contractures Neuro: CN II-XI grossly intact, no focal neuro deficits Psych: Alert, oriented, appropriate affect Assessment/plan: Acute exacerbation of diastolic CHF with ejection fraction 50%, Recent influenza, bronchitis -IV Lasix -Strict I's and O's, daily weights -Patient was just taken off of his hydrochlorothiazide and spironolactone after his last hospital stay. -Continue with Inderal, patient not chronically on SILVER inhibitor. -Cardiology recommendations appreciated DM2 on insulin pump with hyperglycemia/hypoglycemia - patient to use pump and CGM with us following accucheck - A1C 9.3 - outpatinet follow-up - patient is very brittle. -Hold truliciy while in the hospital - insulin pump hold at midnight Chronic kidney disease stage IV with recent CINDY -nephrology recs -Diuresis -Avoid additional nephrotoxic agents Chronic: HTN HLD Gout JEN -Has been noncompliant with CPAP secondary to cough. DVT prophylaxis: Lovenox Discussed with: patient, nursing Anticipated discharge date: in 2-[address]: home A total of 30 minutes was spent on the care of this complex patient more than 50% of the time was spent in counseling and care coordination. Objective - Vital Signs Vital signs: Vital Signs Temp 97.8 F 10/18/21 07:15 Pulse 80 10/18/21 08:46 Resp 16 10/18/21 07:15 BP 154/79 10/18/21 07:15 Pulse Ox 99 10/18/21 07:15 Intake & Output 10/17/21 10/18/21 10/18/21 18:59 06:59 18:59 Intake Total 359.627 Output Total 950 1500 1200 Balance -590.373 -1500 -1200 Weight 104 kg 104.3 kg Intake: Intake, IV Titration 123.627 Amount Heparin Sod,Pork in 0.45% 123.627 NaCl 25,000 unit In 0.45 % NaCl 1 250ml.bag @ 18 UNITS/KG/HR 18.779 mls/hr IV .[id number] [facility] Rx#: [id number] Oral 236 Output: Urine 950 1500 1200 Other: Voiding Method Toilet Toilet # Voids 1 - Labs CBC & Chem 7: 10/18/21 06:17 10/18/21 06:17 Labs: Abnormal Lab Results - Last 24 Hours (Table) 10/17/21 10/17/21 10/18/21 Range/Units 17:19 20:45 02:18 Sodium (137-145) mmol/L BUN (9-20) mg/dL Creatinine (0.66-1.25) mg/dL Glucose (74-99) mg/dL POC Glucose (mg/dL) 218 H 202 H 58 L (75-99) mg/dL Calcium (8.4-10.2) mg/dL 10/18/21 10/18/21 10/18/21 Range/Units 02:35 02:53 03:26 Sodium (137-145) mmol/L BUN (9-20) mg/dL Creatinine (0.66-1.25) mg/dL Glucose (74-99) mg/dL POC Glucose (mg/dL) 61 L 74 L 162 H (75-99) mg/dL Calcium (8.4-10.2) mg/dL 10/18/21 10/18/21 10/18/21 Range/Units 06:17 07:48 12:15 Sodium 135 L (137-145) mmol/L BUN 55 H (9-20) mg/dL Creatinine 2.56 H (0.66-1.25) mg/dL Glucose 183 H (74-99) mg/dL POC Glucose (mg/dL) 160 H 127 H (75-99) mg/dL Calcium 8.3 L (8.4-10.2) mg/dL
--- NOTE | 2021-10-18 16:58 | P.PN ---
Subjective Progress Note Date: 10/18/21 70-year-old male patient with known history of CAD, previous stenting of the LAD in 2004 and circumflex in 2012 in addition to known history of chronic kidney disease, diabetes mellitus, hypertension and hyperlipidemia. Subsequent cardiac catheterization from 2013 showed some disease involving the RCA and he was treated medically for the past several years. He was taken off the diuretics and the patient became more short of breath. He came in with increased lower extremity edema and he was also experiencing some shortness of breath. He did experience some limited chest pain improved with nitroglycerin. His echo from May 2021 showed a preserved LV function. During this current admission, he had a proBNP level of 2600, EKG showed normal sinus rhythm, d-dimer was at 1.1, VQ scan was of an intermediate probability for pulmonary embolism. BUN was 51. Creatinine was up to 2.17 and hemoglobin was 12.0. The patient was started on IV heparin. This patient is an ex-smoker. He did not have any previous history of pulmonary embolism. Doppler of the lower extremities in a negative for DVT. He is currently on room air oxygen. He was started on diuretics. Clinically improving. Diuresing well. On 10/18/2021, the patient is feeling better. The patient is on room air oxygen. The patient is diuresing well. The patient remains on IV Lasix 40 mg every 12 hours. The patient reports improvement in the lower extremity edema. The creatinine today is at 2.56 and it is slightly higher compared to yesterday's creatinine. Nevertheless, no pleurisy, no hemoptysis. No chest pain. The patient is going to undergo a cardiac stress test tomorrow. Objective - Vital Signs Vital signs: Vital Signs Temp 98 F 10/18/21 14:15 Pulse 75 10/18/21 14:15 Resp 16 10/18/21 14:15 BP 130/74 10/18/21 14:15 Pulse Ox 98 10/18/21 14:15 Intake & Output 10/17/21 10/18/21 10/18/21 18:59 06:59 18:59 Intake Total 359.627 Output Total 950 1500 1200 Balance -590.373 -1500 -1200 Weight 104 kg 104.3 kg Intake: Intake, IV Titration 123.627 Amount Heparin Sod,Pork in 0.45% 123.627 NaCl 25,000 unit In 0.45 % NaCl 1 250ml.bag @ 18 UNITS/KG/HR 18.779 mls/hr IV .[id number] [facility] Rx#: [id number] Oral 236 Output: Urine 950 1500 1200 Other: Voiding Method Toilet Toilet # Voids 1 - Exam Gen. appearance the patient is calm and comfortable not in acute distress on room air oxygen Head exam was generally normal. There was no scleral icterus or corneal arcus. Mucous membranes were moist. CONSTITUTIONAL: No apparent distress. HEENT: Head is normocephalic. Pupils are equal, round. Sclerae anicteric. Mucous membranes of the mouth are moist. No JVD. No carotid bruit. CHEST EXAMINATION: Lungs are clear to auscultation. No chest wall tenderness is noted on palpation or with deep breathing. HEART EXAMINATION: Regular rate and rhythm. S1, S2 heard. No murmurs, gallops or rub. ABDOMEN: Soft, nontender. Positive bowel sounds. EXTREMITIES: 2+ peripheral pulses, 1+ lower extremity edema and no calf tenderness. NEUROLOGIC EXAMINATION: Patient is awake, alert and oriented x3. Examination of the skin revealed no evidence of significant rashes, suspicious appearing nevi or other concerning lesions. Neurologically, the patient is awake and alert and the patient does not have any focal neurological deficit. Cranial nerves are essentially intact. - Labs CBC & Chem 7: 10/18/21 06:17 10/18/21 06:17 Labs: Abnormal Lab Results - Last 24 Hours (Table) 10/17/21 10/17/21 10/18/21 Range/Units 17:19 20:45 02:18 Sodium (137-145) mmol/L BUN (9-20) mg/dL Creatinine (0.66-1.25) mg/dL Glucose (74-99) mg/dL POC Glucose (mg/dL) 218 H 202 H 58 L (75-99) mg/dL Calcium (8.4-10.2) mg/dL 10/18/21 10/18/21 10/18/21 Range/Units 02:35 02:53 03:26 Sodium (137-145) mmol/L BUN (9-20) mg/dL Creatinine (0.66-1.25) mg/dL Glucose (74-99) mg/dL POC Glucose (mg/dL) 61 L 74 L 162 H (75-99) mg/dL Calcium (8.4-10.2) mg/dL 10/18/21 10/18/21 10/18/21 Range/Units 06:17 07:48 12:15 Sodium 135 L (137-145) mmol/L BUN 55 H (9-20) mg/dL Creatinine 2.56 H (0.66-1.25) mg/dL Glucose 183 H (74-99) mg/dL POC Glucose (mg/dL) 160 H 127 H (75-99) mg/dL Calcium 8.3 L (8.4-10.2) mg/dL Assessment and Plan Plan: 1 acute on chronic dyspnea, likely on the basis of some increased fluid due to discontinuation of diuretics. There could be a component of diastolic heart failure in addition. The patient is clinically improving her shortness of breath. The patient is currently on oxygen. 2 known history of COPD with previous coronary stenting, last cardiac catheterization was done in 2013 and the patient is seeing medical treatment 3 chronic kidney disease stage III 4 diabetes mellitus 5 hypertension 6 mild aortic stenosis and dilatation of the aortic root 7 hyperlipidemia 8 COPD, maintained on Wixela Inhub on outpatient basis in addition to Ventolin HFA to be used on an as-needed basis. 9 severe obstructive sleep apnea with an AHI of 35, nontolerant to CPAP therapy Plan No clinical suspicion for pulmonary embolism Anticoagulation per cardiology Continue diuresis, reduce the dose of Lasix to 40 minutes every 12 hours. monitor renal function, creatinine is slightly elevated on today's evaluation Currently on room air oxygen Doppler lower extremity negative VQ to scan of intermittent probability extremely nonspecific. I would not suggest pursuing with further testing regarding the possibility of pulmonary emb olism We'll follow Cardiac stress test tomorrow
[2021-10-18 17:43] LABS: Glucose,Whole Blood 114 mg/dL (75-99)
[2021-10-18] MEDS: NON FORMULARY DRUG (Rosuvastatin Calcium [Crestor] 40 MG Tablet) PO SCH (19:47)
[2021-10-18 20:28] LABS: Glucose,Whole Blood 527 mg/dL (75-99)
[2021-10-18 20:28] LABS: Glucose,Whole Blood 374 mg/dL (75-99)
[2021-10-18] MEDS: MELATONIN 3 MG TABLET PO PRN (23:29)
[2021-10-19] MEDS: FUROSEMIDE 10 MG/ML 4 ML VIAL IV SCH ×2 (05:55→16:11)
[2021-10-19] MEDS ORDERED: CAFFEINE CITRATE 60 MG/3 ML VIAL IV PRN (06:00)
[2021-10-19] MEDS ORDERED: AMINOPHYLLINE 500 MG/20 ML VIAL IV PRN (06:00)
[2021-10-19] MEDS ORDERED: REGADENOSON 0.4 MG/5 ML SYRINGE IV PRN (07:00)
[2021-10-19 07:07] LABS: Glucose,Whole Blood 192 mg/dL (75-99)
[2021-10-19] MEDS: ALBUTEROL NEBULIZED 2.5 MG/3 ML INHALATION PRN ×2 (07:27→19:55)
[2021-10-19 07:34] LABS: HCT 39.3 % (39.0-53.0); HGB 12.5 gm/dL (13.0-17.5); MCH 29.6 pg (25.0-35.0); MCHC 31.9 g/dL (31.0-37.0); MCV 93.1 fL (80.0-100.0); Mean Platelet Volume 8.2; Platelet Count 215 k/uL (150-450); RBC 4.22 m/uL (4.30-5.90); RDW 14.4 % (11.5-15.5); WBC 7.3 k/uL (3.8-10.6)
[2021-10-19 07:50] LABS: African American GFR (CKD) 28 (>60 ml/min/1.73 sqM); Anion Gap 7 mmol/L; Blood Urea Nitrogen 50 mg/dL (9-20); Calcium 8.4 mg/dL (8.4-10.2); Carbon Dioxide 26 mmol/L (22-30); Chloride 103 mmol/L (98-107); Glucose 194 mg/dL (74-99); Magnesium 1.4 mg/dL (1.6-2.3); Non-African American GFR(CKD) 24 (>60 ml/min/1.73 sqM); Potassium 4.5 mmol/L (3.5-5.1); Sodium 136 mmol/L (137-145)
[2021-10-19] MEDS: ENOXAPARIN 30 MG/0.3 ML SYRINGE SQ SCH (08:28)
[2021-10-19] MEDS: ASPIRIN 81 MG PO SCH (08:28)
[2021-10-19] MEDS: hydrALAZINE HCL 10 MG TAB PO SCH ×3 (08:28→20:24)
[2021-10-19] MEDS: RANOLAZINE 500 MG TAB.ER.12H PO SCH ×2 (08:28→20:24)
[2021-10-19] MEDS: LORATADINE 10 MG TAB PO SCH (08:28)
[2021-10-19] MEDS: EZETIMIBE 10 MG TAB PO SCH (08:28)
[2021-10-19] MEDS: CHOLECALCIFEROL 25 MCG (1000 IU) TABLET PO SCH (08:29)
[2021-10-19] MEDS: FERROUS SULFATE 325 MG TAB PO SCH (08:29)
[2021-10-19] MEDS: allopurinoL 100 MG TAB PO SCH (08:29)
[2021-10-19] MEDS: INSULIN PUMP MEAL BOLUS 1 UNIT MISC MISCELLANE SCH ×4 (08:29→20:36)
[2021-10-19] MEDS ORDERED: REGADENOSON 0.4 MG/5 ML SYRINGE IV ONE (09:00)
--- NOTE | 2021-10-19 10:34 | P.PN ---
Subjective Progress Note Date: 10/19/21 Principal diagnosis: Shortness of breath 70-year-old male patient with known history of CAD, previous stenting of the LAD in 2004 and circumflex in 2012 in addition to known history of chronic kidney disease, diabetes mellitus, hypertension and hyperlipidemia. Subsequent cardiac catheterization from 2013 showed some disease involving the RCA and he was treated medically for the past several years. He was taken off the diuretics and the patient became more short of breath. He came in with increased lower extremity edema and he was also experiencing some shortness of breath. He did experience some limited chest pain improved with nitroglycerin. His echo from May 2021 showed a preserved LV function. During this current admission, he had a proBNP level of 2600, EKG showed normal sinus rhythm, d-dimer was at 1.1, VQ scan was of an intermediate probability for pulmonary embolism. BUN was 51. Creatinine was up to 2.17 and hemoglobin was 12.0. The patient was started on IV heparin. This patient is an ex-smoker. He did not have any previous history of pulmonary embolism. Doppler of the lower extremities in a negative for DVT. He is currently on room air oxygen. He was started on diuretics. Clinically improving. Diuresing well. On 10/18/2021, the patient is feeling better. The patient is on room air oxygen. The patient is diuresing well. The patient remains on IV Lasix 40 mg every 12 hours. The patient reports improvement in the lower extremity edema. The creatinine today is at 2.56 and it is slightly higher compared to yesterday's creatinine. Nevertheless, no pleurisy, no hemoptysis. No chest pain. The patient is going to undergo a cardiac stress test tomorrow. On 10/19/2021 patient is seen in follow-up on regular medical surgical floor. He is sitting on his bed, in no acute distress, he is currently on room air with pulse ox of 90%, hemodynamically has been stable, no fever or chills, remains on Lasix 40 mg IV push twice daily, and he is in -2903 mL over the last 24 hours, he states his lower extremity edema is improving as well, still has some residual 1+ lower extremity edema. His lung sounds are clear to auscultation, his had no acute events overnight. No complaints of chest discomfort. No worsening dyspnea or cough. Today's labs have been reviewed, his white blood cell count is 7.2, hemoglobin is 12.5, sodium is 136, the rest of the electrolytes were within normal limits, BUN is 50 creatinine is 2.6. Nephrology is following. Objective - Vital Signs Vital signs: Vital Signs Temp 97.9 F 10/19/21 07:04 Pulse 78 10/19/21 07:35 Resp 16 10/19/21 07:04 BP 146/75 10/19/21 07:04 Pulse Ox 98 10/19/21 07:04 Intake & Output 10/18/21 10/19/21 10/19/21 18:59 06:59 18:59 Output Total 1200 2300 Balance -1200 -2300 Weight 103.5 kg Output: Urine 1200 2300 Other: Voiding Method Toilet # Voids 1 - Exam GENERAL EXAM: Alert, very pleasant, 70-year-old white male, on room air with pulse ox of 98%, comfortable in no apparent distress. HEAD: Normocephalic/atraumatic. EYES: Normal reaction of pupils, equal size. Conjunctiva pink, sclera white. NOSE: Clear with pink turbinates. THROAT: No erythema or exudates. NECK: No masses, no JVD, no thyroid enlargement, no adenopathy. CHEST: No chest wall deformity. Symmetrical expansion. LUNGS: Equal air entry with no crackles, wheeze, rhonchi or dullness. CVS: Regular rate and rhythm, normal S1 and S2, no gallops, no murmurs, no rubs ABDOMEN: Soft, nontender. No hepatosplenomegaly, normal bowel sounds, no guarding or rigidity. EXTREMITIES: No clubbing, 1+ lower extremity edema, no cyanosis, 2+ pulses and upper and lower extremities. MUSCULOSKELETAL: Muscle strength and tone normal. SPINE: No scoliosis or deformity SKIN: No rashes CENTRAL NERVOUS SYSTEM: Alert and oriented -3. No focal deficits, tone is normal in all 4 extremities. PSYCHIATRIC: Alert and oriented -3. Appropriate affect. Intact judgment and insight. - Labs CBC & Chem 7: 10/19/21 07:13 10/19/21 07:13 Labs: Abnormal Lab Results - Last 24 Hours (Table) 10/18/21 10/18/21 10/18/21 Range/Units 12:15 17:41 20:25 RBC (4.30-5.90) m/uL Hgb (13.0-17.5) gm/dL Sodium (137-145) mmol/L BUN (9-20) mg/dL Creatinine (0.66-1.25) mg/dL Glucose (74-99) mg/dL POC Glucose (mg/dL) 127 H 114 H 527 H (75-99) mg/dL Magnesium (1.6-2.3) mg/dL 10/18/21 10/19/21 10/19/21 Range/Units 20:27 07:06 07:13 RBC 4.22 L (4.30-5.90) m/uL Hgb 12.5 L (13.0-17.5) gm/dL Sodium (137-145) mmol/L BUN (9-20) mg/dL Creatinine (0.66-1.25) mg/dL Glucose (74-99) mg/dL POC Glucose (mg/dL) 374 H 192 H (75-99) mg/dL Magnesium (1.6-2.3) mg/dL 10/19/21 Range/Units 07:13 RBC (4.30-5.90) m/uL Hgb (13.0-17.5) gm/dL Sodium 136 L (137-145) mmol/L BUN 50 H (9-20) mg/dL Creatinine 2.60 H (0.66-1.25) mg/dL Glucose 194 H (74-99) mg/dL POC Glucose (mg/dL) (75-99) mg/dL Magnesium 1.4 L (1.6-2.3) mg/dL Assessment and Plan Plan: Assessment: #1. Acute on chronic dyspnea, related to acute exacerbation of diastolic CHF. Patient had discontinued his diuretics. Currently his dyspnea has significantly improved #2. History of CAD with previous stenting #3. Chronic kidney disease stage III #4. Acute kidney injury #5. Diabetes mellitus type II #6. Hypertension #7. Mild aortic stenosis and dilatation of the aortic root #8. Hyperlipidemia #9. COPD #10. Severe obstructive sleep apnea with an AHI of 35 not tolerant to CPAP therapy Plan: Breathing is improving Patient is currently on room air Remains on Lasix, maintaining negative Fluid balance Increase activity as tolerated Breathing comfortably Lower extremity edema is improving Suspicion for pulmonary embolism was low, Nephrology and cardiology recs From pulmonary perspective patient can be considered for discharge once cleared by nephrology and cardiology Outpatient follow-up with Dr. Potter in 1 week Resume home Wixela, Albuterol Diuretics per nephrology I have personally seen and examined the patient, performed the documentation and the assessment and plan as written. Number of minutes spent on the visit: [10] Time with Patient: Less than 30
--- NOTE | 2021-10-19 11:27 | P.PN ---
Subjective HISTORY OF PRESENTING ILLNESS This is a 70-year-old gentleman who follows with myself in the office with a past medical history significant for coronary artery disease and prior stenting of the LAD in 2004 and subsequently stenting of the left circumflex in 2012 as well as diabetes and hypertension and dyslipidemia and chronic kidney disease. He underwent a heart catheterization back in 2013 and that the last time when he was found to have chronic total occlusion of the left circumflex with intermediate disease in the RCA and he was treated medically and has done well for the last 6-7 years. Patient has been monitored with his chronic kidney disease by nephrology and recently taken off of diuretics approximately 2 weeks ago. He states since that time he has felt increased swelling and edema as well as increased shortness breath. He states over the last week he has been having episodes of dyspnea with exertion as well as chest tightness with exertion. He states he has had occasional some of these episodes however not consistently other than the last week or 2. His creatinine did improve with stopping the diuretics from 3 down to 2.2. Echo from May 2021 shows EF 60-65% with mild aortic stenosis and mild mitral regurgitation with dilated aortic root. Blood work shows hemoglobin 12.0, BUN 51, creatinine 2.17, troponin 0.012, 0.019, 0.015, proBNP 2600, albumin 3.2. EKG shows normal sinus rhythm with PACs and abnormalities. EKG was read out as atrial fibrillation however obvious P waves noted. Telemetry shows sinus with PACs. D Dimer mildly elevated at 1.1 and therefore VQ scan was performed which was intermediate for PE. 10/19/2021 Patient seen at bedside, sitting up in bedside chair. Denies any chest pain. He has no shortness of breath. Lower extremity edema is improved. Patient states that he is urinating well. 3500mL urine output over the past 24 hours. He is currently on Lasix 40 mg IV BID. Weight is decreased. Repeat blood work reveals BUN of [address] Cadena is following for acute kidney injury. Echocardiogram reveals EF of 50-55%, moderate aortic valve sclerosis, gradient over aortic valve is 11.7/5.91 mmHg. Mild tricuspid regurgitation, trace pulmonary regurgitation. PHYSICAL EXAMINATION Vital signs reviewed. CONSTITUTIONAL: No apparent distress. HEENT: Neck Supple. No JVD. CHEST EXAMINATION: Lungs are clear to auscultation. No chest wall tenderness is noted on palpation or with deep breathing. HEART EXAMINATION: Regular rate and rhythm. S1, S2 heard. No murmurs, gallops or rub. ABDOMEN: Soft, nontender. Positive bowel sounds. EXTREMITIES: 2+ peripheral pulses, trace lower extremity edema and no calf tenderness. NEUROLOGIC EXAMINATION: Patient is awake, alert and oriented x3. ASSESSMENT 1. Acute on chronic heart failure with preserved ejection fraction 2. Chest pain and dyspnea on exertion may be related to heart failure versus possibly related to underlying CAD 3. Chronic kidney disease 4. Coronary artery disease with prior history of [employer] REPRESENTATIVE treated medically for last 7 years of the left circumflex with intermediate disease in the RCA 5. Hypertension 6. Mild aortic stenosis 7. Mild aortic root dilation by most recent echo 8. Elevated d-dimer, VQ scan intermediate PLAN Patient's main symptoms appear related to heart failure with increased edema since stopping diuretics associated with dyspnea with exertion and chest pain. Symptoms have improved. We will transition to PO Lasix 40mg daily Lexiscan stress test today Given CKD would like to avoid heart catheterization if possible. Form a cardiology perspective, if lexiscan stress test negative, ok to discharge today and close follow up outpatient with Dr. Castle. Nurse practitioner note has been reviewed, I agree with documented findings and plan of care. Patient was seen and examined. Objective - Vital Signs Vital signs: Vital Signs Temp 97.9 F 10/19/21 07:04 Pulse 78 10/19/21 07:35 Resp 16 10/19/21 07:04 BP 146/75 10/19/21 07:04 Pulse Ox 98 10/19/21 07:04 Intake & Output 10/18/21 10/19/21 10/19/21 18:59 06:59 18:59 Output Total 1200 2300 Balance -1200 -2300 Weight 103.5 kg Output: Urine 1200 2300 Other: Voiding Method Toilet # Voids 1 - Labs CBC & Chem 7: 10/19/21 07:13 10/19/21 07:13 Labs: Abnormal Lab Results - Last 24 Hours (Table) 10/18/21 10/18/21 10/18/21 Range/Units 12:15 17:41 20:25 RBC (4.30-5.90) m/uL Hgb (13.0-17.5) gm/dL Sodium (137-145) mmol/L BUN (9-20) mg/dL Creatinine (0.66-1.25) mg/dL Glucose (74-99) mg/dL POC Glucose (mg/dL) 127 H 114 H 527 H (75-99) mg/dL Magnesium (1.6-2.3) mg/dL 10/18/21 10/19/21 10/19/21 Range/Units 20:27 07:06 07:13 RBC 4.22 L (4.30-5.90) m/uL Hgb 12.5 L (13.0-17.5) gm/dL Sodium (137-145) mmol/L BUN (9-20) mg/dL Creatinine (0.66-1.25) mg/dL Glucose (74-99) mg/dL POC Glucose (mg/dL) 374 H 192 H (75-99) mg/dL Magnesium (1.6-2.3) mg/dL 10/19/21 Range/Units 07:13 RBC (4.30-5.90) m/uL Hgb (13.0-17.5) gm/dL Sodium 136 L (137-145) mmol/L BUN 50 H (9-20) mg/dL Creatinine 2.60 H (0.66-1.25) mg/dL Glucose 194 H (74-99) mg/dL POC Glucose (mg/dL) (75-99) mg/dL Magnesium 1.4 L (1.6-2.3) mg/dL
[2021-10-19] MEDS: MAGNESIUM SULFATE-D5W PMX 1 GM in DEXTROSE/WATER 1 100ML.BAG IVPB SCH ×3 (11:49→13:44)
[2021-10-19] MEDS: ISOSORBIDE MONONITRATE ER 60 MG TAB.ER.24H PO SCH ×2 (11:49→20:24)
[2021-10-19] MEDS: PROPRANOLOL 20 MG TAB PO SCH (11:49)
[2021-10-19 11:59] LABS: Glucose,Whole Blood 238 mg/dL (75-99)
--- NOTE | 2021-10-19 12:22 | NM ---
EXAMINATION TYPE: NM stress lexiscan cardiolite DATE OF EXAM: 10/19/2021 COMPARISON: Prior study May 25, 2021 HISTORY: History of HTN, DM, CO x 3, Catheterizations with 4 vessel angiography, Asthma, Tobacco use in the past. TECHNIQUE: After the intravenous administration of 10.0 mCi Tc 99m Sestamibi - Cardiolite resting SP ECT images acquired 45 minutes post injection. The patient received 0.4mg Lexiscan, 25.4 mCi Tc 99m Sestamibi - Stress images obtained [address] injection FINDINGS: Review of stress and rest SPECT images demonstrates diminished perfusion on stress and rest images in volving the inferior and lateral wall more prominent on stress images versus rest images. Cannot excl ude acute ischemia on background old infarct. Findings more prominent from prior. Gated analysis show s overall estimated left ventricular ejection fraction of 47 %. IMPRESSION: As above. Findings more prominent from prior study. Possible Acute ischemia on backgroun d old infarct. Need to further investigate with direct catheter angiogram should be based on EKG and clinical correlation.
[2021-10-19 17:11] LABS: Glucose,Whole Blood 248 mg/dL (75-99)
--- NOTE | 2021-10-19 17:15 | P.STRESS ---
- Stress Test Note Stress Test Results/Findings: Exam Performed: NM stress lexiscan cardiolite Exam Date: 10/19/21 Reason for Exam: CHF, ELEVATED D DIMER Height: 5 ft 8 in Weight: 103.5 kg Protocol: LEXISCAN CARDIOLITE Stage: N/A Duration of Exercise: N/A Resting Heart Rate: 77 Resting Blood Pressure: 148/78 Maximum Achieved Heart Rate: 87 Maximum Achieved Blood Pressure: 149/73 85% PMHR: 127 100% PMHR: 149 METS: N/A Technologist Comment: Stress Test Results/Findings: Patient received Lexiscan infusion per protocol At baseline abnormal ST segments, biphasic ST segments with minimal depression No change with Lexiscan infusion Heart rate and blood pressure remained stable Nuclear portion will be reported separately
--- NOTE | 2021-10-19 19:41 | P.PN ---
Subjective Progress Note Date: 10/19/21 (delayed charting seen at 1115) Principal diagnosis: shortness of breath Patient is a 70-year-old male with coronary artery disease status post stent placement, congestive heart failure ( Hx of EF 45-50% now recoevered , diabetes, hypertension, and dyslipidemia who presented to the ER with complaints of worsening shortness of breath. On arrival to the ER he is on be hypertensive with blood pressure 170/67. Initial laboratory analysis showed hemoglobin 12, creatinine 2.17 consistent with his CKD, glucose 293, an elevated BNP at 2610. Chest x-ray showed no acute process. His d-dimer was elevated at 1.13 however he was not a good candidate for CTA of the chest secondary to his chronic kidney disease. Of note patient was recently hospitalized here from 10/08/21 through 10/10/21 secondary to acute kidney injury on chronic kidney disease and influenza. During that stay he was found to have acute kidney injury and hyponatremia and subsequently was discharged off his spironolactone and hydrochlorothiazide. He is on IV Lasix. He had an intermediate VQ scan was subsequently started on a heparin drip. Bilateral lower extremity venous Dopplers revealed no evidence of DVT but some rouleaux formation. Repeat echocardiogram demonstrated ejection fraction 50-55% with moderate aortic sclerosis and a normal RVSP. His heparin drip was therefore stopped. Nephrology and cardiology were consulted. Pulmonary was consulted as well. Practicioners agreed with probable acute diastolic congestive heart failure. Her son about Lasix. Patient seen and examined at bedside. Breathing is slightly better than yesterday, lower extremity edema is improving. He is hoping to go home today. We discussed need for one more day of IV Lasix and he is in agreement. No nausea, vomiting, diarrhea. General: non toxic, no distress, appears at stated age Derm: warm, dry Head: atraumatic, normocephalic, symmetric Eyes: EOMI, no lid lag, anicteric sclera Mouth: no lip lesion, mucus membranes moist Cardiovascular: S1S2 reg, no murmur, positive posterior tibial pulse bilateral, Lungs: Decreased breath sounds bilateral bases , no accessory muscle use Abdominal: soft, nontender to palpation, no guarding, no appreciable organomegaly Ext: no gross muscle atrophy, 2+ edema, no contractures Neuro: CN II-XI grossly intact, no focal neuro deficits Psych: Alert, oriented, appropriate affect Assessment/plan: Acute exacerbation of diastolic CHF with ejection fraction 50%, Recent influenza, bronchitis -IV Lasix -Strict I's and O's, daily weights -Patient was just taken off of his hydrochlorothiazide and spironolactone after his last hospital stay. -Continue with Inderal, patient not chronically on SILVER inhibitor. -Cardiology recommendations appreciated -Stress test with possible acute ischemia over old infarct. Await further recommendations per cardiology DM2 on insulin pump with hyperglycemia/hypoglycemia - patient to use pump and CGM with us following accucheck - A1C 9.3 - outpatient follow-up - patient is very brittle. -Hold truliciy while in the hospital Chronic kidney disease stage IV with recent CINDY -nephrology recs -Diuresis -Avoid additional nephrotoxic agents Chronic: HTN HLD Gout JEN -Has been noncompliant with CPAP secondary to cough. DVT prophylaxis: Lovenox Discussed with: patient, nursing Anticipated discharge date: in 2-[address]: home A total of 30 minutes was spent on the care of this complex patient more than 50% of the time was spent in counseling and care coordination. Objective - Vital Signs Vital signs: Vital Signs Temp 98.1 F 10/19/21 15:27 Pulse 72 10/19/21 15:27 Resp 16 10/19/21 15:27 BP 152/73 10/19/21 15:27 Pulse Ox 96 10/19/21 15:27 Intake & Output 10/19/21 10/19/21 10/20/21 06:59 18:59 06:59 Intake Total 118 Output Total 2300 1300 Balance -2300 -1182 Weight 103.5 kg 103.5 kg Intake: Oral 118 Output: Urine 2300 1300 Other: Voiding Method Toilet # Voids 1 - Labs CBC & Chem 7: 10/19/21 07:13 10/19/21 07:13 Labs: Abnormal Lab Results - Last 24 Hours (Table) 10/18/21 10/18/21 10/19/21 Range/Units 20:25 20:27 07:06 RBC (4.30-5.90) m/uL Hgb (13.0-17.5) gm/dL Sodium (137-145) mmol/L BUN (9-20) mg/dL Creatinine (0.66-1.25) mg/dL Glucose (74-99) mg/dL POC Glucose (mg/dL) 527 H 374 H 192 H (75-99) mg/dL Magnesium (1.6-2.3) mg/dL 10/19/21 10/19/21 10/19/21 Range/Units 07:13 07:13 11:58 RBC 4.22 L (4.30-5.90) m/uL Hgb 12.5 L (13.0-17.5) gm/dL Sodium 136 L (137-145) mmol/L BUN 50 H (9-20) mg/dL Creatinine 2.60 H (0.66-1.25) mg/dL Glucose 194 H (74-99) mg/dL POC Glucose (mg/dL) 238 H (75-99) mg/dL Magnesium 1.4 L (1.6-2.3) mg/dL 10/19/21 Range/Units 17:09 RBC (4.30-5.90) m/uL Hgb (13.0-17.5) gm/dL Sodium (137-145) mmol/L BUN (9-20) mg/dL Creatinine (0.66-1.25) mg/dL Glucose (74-99) mg/dL POC Glucose (mg/dL) 248 H (75-99) mg/dL Magnesium (1.6-2.3) mg/dL
[2021-10-19] MEDS: NON FORMULARY DRUG (Rosuvastatin Calcium [Crestor] 40 MG Tablet) PO SCH (20:21)
[2021-10-19 20:33] LABS: Glucose,Whole Blood 126 mg/dL (75-99)
[2021-10-19] MEDS: MELATONIN 3 MG TABLET PO PRN (20:54)
--- NOTE | 2021-10-20 01:20 | P.PN ---
Subjective Progress Note Date: 10/19/21 Pt is seen for f/u for CINDY on top of CKD. CKD stage 4 with baseline cr around 3 mg/dL. Currently being diuresed and feeling better. Cr 2.6 today. Good UOP. 3.4 L Objective - Vital Signs Vital signs: Vital Signs Temp 98.1 F 10/19/21 20:09 Pulse 82 10/19/21 20:09 Resp 17 10/19/21 20:09 BP 153/76 10/19/21 20:09 Pulse Ox 100 10/19/21 20:09 Intake & Output 10/19/21 10/19/21 10/20/21 06:59 18:59 06:59 Intake Total 118 Output Total 2300 1300 825 Balance -2300 -1182 -825 Weight 103.5 kg 103.5 kg Intake: Oral 118 Output: Urine 2300 1300 825 Other: Voiding Method Toilet Toilet # Voids 1 3 - Exam Awake, comfortable No distress. Lungs are clear with decreased breath sounds at bases. Extremities show edema 2+ bilateral STARCHMAKER exam grossly intact - Labs CBC & Chem 7: 10/19/21 07:13 10/19/21 07:13 Labs: Abnormal Lab Results - Last 24 Hours (Table) 10/19/21 10/19/21 10/19/21 Range/Units 07:06 07:13 07:13 RBC 4.22 L (4.30-5.90) m/uL Hgb 12.5 L (13.0-17.5) gm/dL Sodium 136 L (137-145) mmol/L BUN 50 H (9-20) mg/dL Creatinine 2.60 H (0.66-1.25) mg/dL Glucose 194 H (74-99) mg/dL POC Glucose (mg/dL) 192 H (75-99) mg/dL Magnesium 1.4 L (1.6-2.3) mg/dL 10/19/21 10/19/21 10/19/21 Range/Units 11:58 17:09 20:32 RBC (4.30-5.90) m/uL Hgb (13.0-17.5) gm/dL Sodium (137-145) mmol/L BUN (9-20) mg/dL Creatinine (0.66-1.25) mg/dL Glucose (74-99) mg/dL POC Glucose (mg/dL) 238 H 248 H 126 H (75-99) mg/dL Magnesium (1.6-2.3) mg/dL Assessment and Plan Assessment: 1. Acute kidney injury last admission mostly ATN possibly related to underlying influenza. 2. Chronic kidney disease NKF stage 4-5 with baseline creatinine around 3 mg/dL. It has been as low as 2.4 however this may have been and patient was volume overloaded. Etiology is diabetic kidney disease 3. Volume overload 4. Acute on chronic CHF currently ejection fraction 50-55%. Plan: Continue to diurese patient. Continue IV lasix for 1 more day. Repeat labs in a.m. Avoid nephrotoxic agents.
[2021-10-20 07:28] LABS: Glucose,Whole Blood 189 mg/dL (75-99)
[2021-10-20 08:48] VITALS: BP 163/73; PULSE 67; RESP 15; TEMP 97.6
[2021-10-20] MEDS ORDERED: FUROSEMIDE 40 MG TAB PO SCH (09:00)
[2021-10-20] MEDS: INSULIN PUMP MEAL BOLUS 1 UNIT MISC MISCELLANE SCH ×2 (09:23→12:52)
[2021-10-20] MEDS: FUROSEMIDE 10 MG/ML 4 ML VIAL IV SCH (09:24)
[2021-10-20] MEDS: RANOLAZINE 500 MG TAB.ER.12H PO SCH (09:24)
[2021-10-20] MEDS: hydrALAZINE HCL 10 MG TAB PO SCH (09:24)
[2021-10-20] MEDS: ENOXAPARIN 30 MG/0.3 ML SYRINGE SQ SCH (09:24)
[2021-10-20] MEDS: allopurinoL 100 MG TAB PO SCH (09:24)
[2021-10-20] MEDS: ISOSORBIDE MONONITRATE ER 60 MG TAB.ER.24H PO SCH (09:24)
[2021-10-20] MEDS: CHOLECALCIFEROL 25 MCG (1000 IU) TABLET PO SCH (09:25)
[2021-10-20] MEDS: ASPIRIN 81 MG PO SCH (09:25)
[2021-10-20] MEDS: FERROUS SULFATE 325 MG TAB PO SCH (09:25)
[2021-10-20] MEDS: PROPRANOLOL 20 MG TAB PO SCH (09:25)
[2021-10-20] MEDS: LORATADINE 10 MG TAB PO SCH (09:25)
[2021-10-20] MEDS: EZETIMIBE 10 MG TAB PO SCH (09:25)
[2021-10-20 10:27] LABS: HCT 37.9 % (39.0-53.0); HGB 12.3 gm/dL (13.0-17.5); MCH 30.8 pg (25.0-35.0); MCHC 32.4 g/dL (31.0-37.0); MCV 94.9 fL (80.0-100.0); Mean Platelet Volume 8.2; Platelet Count 208 k/uL (150-450); RBC 3.99 m/uL (4.30-5.90); RDW 14.5 % (11.5-15.5); WBC 6.4 k/uL (3.8-10.6)
--- NOTE | 2021-10-20 10:27 | P.PN ---
Subjective HISTORY OF PRESENTING ILLNESS This is a 70-year-old gentleman who follows with myself in the office with a past medical history significant for coronary artery disease and prior stenting of the LAD in 2004 and subsequently stenting of the left circumflex in 2012 as well as diabetes and hypertension and dyslipidemia and chronic kidney disease. He underwent a heart catheterization back in 2013 and that the last time when he was found to have chronic total occlusion of the left circumflex with intermediate disease in the RCA and he was treated medically and has done well for the last 6-7 years. Patient has been monitored with his chronic kidney disease by nephrology and recently taken off of diuretics approximately 2 weeks ago. He states since that time he has felt increased swelling and edema as well as increased shortness breath. He states over the last week he has been having episodes of dyspnea with exertion as well as chest tightness with exertion. He states he has had occasional some of these episodes however not consistently other than the last week or 2. His creatinine did improve with stopping the diuretics from 3 down to 2.2. Echo from May 2021 shows EF 60-65% with mild aortic stenosis and mild mitral regurgitation with dilated aortic root. Blood work shows hemoglobin 12.0, BUN 51, creatinine 2.17, troponin 0.012, 0.019, 0.015, proBNP 2600, albumin 3.2. EKG shows normal sinus rhythm with PACs and abnormalities. EKG was read out as atrial fibrillation however obvious P waves noted. Telemetry shows sinus with PACs. D Dimer mildly elevated at 1.1 and therefore VQ scan was performed which was intermediate for PE. 10/20/2021 Patient seen at bedside, sitting up in bedside chair. Denies any chest pain. He has no shortness of breath. Lower extremity edema is improved. Patient states that he is urinating well. 2125mL urine output over the past 24 hours. He is currently on Lasix [address] Cadena is following for acute kidney injury. Echocardiogram reveals EF of 50-55%, moderate aortic valve sclerosis, gradient over aortic valve is 11.7/5.91 mmHg. Mild tricuspid regurgitation, trace pulmonary regurgitation. PHYSICAL EXAMINATION Vital signs reviewed. CONSTITUTIONAL: No apparent distress. HEENT: Neck Supple. No JVD. CHEST EXAMINATION: Lungs are clear to auscultation. No chest wall tenderness is noted on palpation or with deep breathing. HEART EXAMINATION: Regular rate and rhythm. S1, S2 heard. No murmurs, gallops or rub. ABDOMEN: Soft, nontender. Positive bowel sounds. EXTREMITIES: 2+ peripheral pulses, trace lower extremity edema and no calf ten derness. NEUROLOGIC EXAMINATION: Patient is awake, alert and oriented x3. ASSESSMENT Acute on chronic heart failure with preserved ejection fraction Chest pain and dyspnea on exertion may be related to heart failure versus likely underlying CAD Abnormal Lexiscan stress test 10/19/21 Chronic kidney disease Coronary artery disease with prior history of [employer] treated medically for last 7 years of the left circumflex with intermediate disease in the RCA Hypertension Mild aortic stenosis Elevated d-dimer, VQ scan intermediate PLAN -Lexiscan stress test revealed diminished perfusion on stress and rest images evolving inferior lateral wall. More prominent on stress images versus resting images. Possible acute ischemia and background old infarct. -Reviewed findings with patient's ground crew chief, Dr. Castle. At this time, due to patient's kidney function and congestive heart failure. Recommend maximize and treat medically at this time. Spoke with the patient and his at bedside about risks, benefits of medical therapy vs. cardiac catheterization. Patient would like to proceed with medical therapy as well. -On discharge, patient to follow up with Dr. Castle on 10/23/21 at 3:00PM. -Recommend transitioning to PO Lasix 40mg daily -Form a cardiology perspective, ok to discharge today on PO diuretics and close follow up outpatient with Dr. Castle. Follow up appointment on 10/23/21 at 3:00PM. Nurse practitioner note has been reviewed, I agree with documented findings and plan of care. Patient was seen and examined. Objective - Vital Signs Vital signs: Vital Signs Temp 97.6 F 10/20/21 08:00 Pulse 67 10/20/21 08:00 Resp 15 10/20/21 08:00 BP 163/73 10/20/21 08:00 Pulse Ox 99 10/20/21 08:00 Intake & Output 10/19/21 10/20/21 10/20/21 18:59 06:59 18:59 Intake Total 118 Output Total 1300 825 Balance -1182 -825 Weight 103.5 kg 104.2 kg Intake: Oral 118 Output: Urine 1300 825 Other: Voiding Method Toilet # Voids 3 - Labs CBC & Chem 7: 10/19/21 07:13 10/19/21 07:13 Labs: Abnormal Lab Results - Last 24 Hours (Table) 10/19/21 10/19/21 10/19/21 Range/Units 11:58 17:09 20:32 POC Glucose (mg/dL) 238 H 248 H 126 H (75-99) mg/dL 10/20/21 Range/Units 07:27 POC Glucose (mg/dL) 189 H (75-99) mg/dL
[2021-10-20 10:48] LABS: African American GFR (CKD) 26 (>60 ml/min/1.73 sqM); Anion Gap 5 mmol/L; Blood Urea Nitrogen 57 mg/dL (9-20); Calcium 8.6 mg/dL (8.4-10.2); Carbon Dioxide 30 mmol/L (22-30); Chloride 100 mmol/L (98-107); Glucose 203 mg/dL (74-99); Magnesium 2.2 mg/dL (1.6-2.3); Non-African American GFR(CKD) 23 (>60 ml/min/1.73 sqM); Potassium 5.4 mmol/L (3.5-5.1); Sodium 135 mmol/L (137-145)
--- NOTE | 2021-10-20 12:20 | P.PN ---
Subjective Pt is seen for f/u for CINDY on top of CKD. CKD stage 4 with baseline cr around 3 mg/dL. Currently being diuresed and feeling better. Cr 2.7 today. Potassium was 5.4 Good UOP. 3.5 L Objective - Vital Signs Vital signs: Vital Signs Temp 97.6 F 10/20/21 08:00 Pulse 67 10/20/21 08:00 Resp 15 10/20/21 08:00 BP 163/73 10/20/21 08:00 Pulse Ox 99 10/20/21 08:00 Intake & Output 10/19/21 10/20/21 10/20/21 18:59 06:59 18:59 Intake Total 118 Output Total 1300 825 Balance -1182 -825 Weight 103.5 kg 104.2 kg Intake: Oral 118 Output: Urine 1300 825 Other: Voiding Method Toilet # Voids 3 - Exam Awake, comfortable No distress. Lungs are clear with decreased breath sounds at bases. Extremities show edema 2+ bilateral [employer] exam grossly intact - Labs CBC & Chem 7: 10/20/21 10:10 10/20/21 10:10 Labs: Abnormal Lab Results - Last 24 Hours (Table) 10/19/21 10/19/21 10/20/21 Range/Units 17:09 20:32 07:27 RBC (4.30-5.90) m/uL Hgb (13.0-17.5) gm/dL Hct (39.0-53.0) % Sodium (137-145) mmol/L Potassium (3.5-5.1) mmol/L BUN (9-20) mg/dL Creatinine (0.66-1.25) mg/dL Glucose (74-99) mg/dL POC Glucose (mg/dL) 248 H 126 H 189 H (75-99) mg/dL 10/20/21 10/20/21 Range/Units 10:10 10:10 RBC 3.99 L (4.30-5.90) m/uL Hgb 12.3 L (13.0-17.5) gm/dL Hct 37.9 L (39.0-53.0) % Sodium 135 L (137-145) mmol/L Potassium 5.4 H (3.5-5.1) mmol/L BUN 57 H (9-20) mg/dL Creatinine 2.71 H (0.66-1.25) mg/dL Glucose 203 H (74-99) mg/dL POC Glucose (mg/dL) (75-99) mg/dL Assessment and Plan Assessment: 1. Acute kidney injury last admission mostly ATN possibly related to underlying influenza. 2. Chronic kidney disease NKF stage 4-5 with baseline creatinine around 3 mg/dL. It has been as low as 2.4 however this may have been and patient was volume overloaded. Etiology is diabetic kidney disease 3. Volume overload 4. Acute on chronic CHF currently ejection fraction 50-55%. 5. Hyperkalemia associated with acute kidney injury and chronic kidney disease Plan: Patient can be discharged home Low Calma by mouth 1 today Continue low potassium diet Lasix 40 mg by mouth twice a day for 4-5 days and then switch to daily Repeat labs in 1-2 days Follow-up in the office in 1-2 weeks.
[2021-10-20] MEDS ORDERED: SODIUM ZIRCONIUM CYCLOSILICATE 10 GM PACKET PO ONE (12:30)
[2021-10-20 12:34] LABS: Glucose,Whole Blood 143 mg/dL (75-99)
--- NOTE | 2021-10-20 14:31 | P.DS ---
Providers Date of admission: 10/16/21 20:01 Expected date of discharge: 10/20/21 Attending physician: Manolo Pang MD Consults: 10/16/21 17:39 Consult Physician Routine Consulting Provider: [facility] Consult Reason/Comments: chf Do you want consulting provider notified?: Yes 10/16/21 19:48 Consult Physician Routine Consulting Provider: Saritha Cadena Consult Reason/Comments: CKD Do you want consulting provider notified?: Yes 10/16/21 19:49 Consult Physician Routine Consulting Provider: Leilani Potter Consult Reason/Comments: intermediate probability PE Do you want consulting provider notified?: Yes Primary care physician: Marlon Valentino MD Hospital Course: Discharge Diagnosis: Acute exacerbation of diastolic CHF with ejection fraction 50%, Recent influenza, bronchitis DM2 on insulin pump with hyperglycemia/hypoglycemia Chronic kidney disease stage IV with recent CINDY HTN HLD Gout JEN Hospital Course: Patient is a 70-year-old male with coronary artery disease status post stent placement, congestive heart failure ( Hx of EF 45-50% now recoevered) , diabetes, hypertension, and dyslipidemia who presented to the ER with complaints of worsening shortness of breath. On arrival to the ER he is on be hypertensive with blood pressure 170/67. Initial laboratory analysis showed hemoglobin 12, creatinine 2.17 consistent with his CKD, glucose 293, an elevated BNP at 2610. Chest x-ray showed no acute process. His d-dimer was elevated at 1.13 however he was not a good candidate for CTA of the chest secondary to his chronic kidney disease. Of note patient was recently hospitalized here from 10/08/21 through 10/10/21 secondary to acute kidney injury on chronic kidney disease and influenza. During that stay he was found to have acute kidney injury and hyponatremia and subsequently was discharged off his spironolactone and hydrochlorothiazide. He is on IV Lasix. He had an intermediate VQ scan was subsequently started on a heparin drip. Bilateral lower extremity venous Dopplers revealed no evidence of DVT but some rouleaux formation. Repeat echocardiogram demonstrated ejection fraction 50-55% with moderate aortic sclerosis and a normal RVSP. His heparin drip was therefore stopped. Nephrology and cardiology were consulted. Pulmonary was consulted as well. Practicioners agreed with probable acute diastolic congestive heart failure. Continue to diurese well on Lasix. He did undergo a Lexiscan stress test which showed diminished perfusion on stress and rest images possibly more prominent prominent on the stress versus the rest. Cardiology recommended outpatient follow-up and no invasive intervention at this time secondary to chronic kidney disease. Patient was determined stable for discharge home. Follow-up: Repeat basic metabolic profile on 10/23, follow-up with Dr. Castle on 10/23, bulk Dr. Cadena in 10 days, follow-up with Dr. Valentino in 1-2 days. Lasix BID for 5 days and then once daily. Patient seen and examined at bedside. Vital signs reviewed and stable. General: non toxic, no distress, appears at stated age Derm: warm, dry Head: atraumatic, normocephalic, symmetric Eyes: EOMI, no lid lag, anicteric sclera Mouth: no lip lesion, mucus membranes moist Cardiovascular: S1S2 reg, no murmur, positive posterior tibial pulse bilateral, Lungs: Course bs bilateral, no rhonchi, no rales , no accessory muscle use Abdominal: soft, nontender to palpation, no guarding, no appreciable organomegaly Ext: no gross muscle atrophy, 2+ edema, no contractures Neuro: CN II-XI grossly intact, no focal neuro deficits Psych: Alert, oriented, appropriate affect A total of 37 minutes of time were spent preparing this complex discharge brink mmary . Patient Condition at Discharge: Stable Plan - Discharge Summary Discharge Rx Participant: No New Discharge Prescriptions: New Furosemide [Lasix] 40 mg PO DAILY 30 Days #30 tablet Continue Rosuvastatin Calcium [Crestor] 40 mg PO HS Nitroglycerin Sl Tabs [Nitrostat] 0.4 mg SL Q5M PRN PRN Reason: Chest Pain Ezetimibe [Zetia] 10 mg PO DAILY Aspirin EC [Ecotrin Low Dose] 81 mg PO DAILY Isosorbide Mononitrate ER [Imdur] 60 mg PO BID Ranolazine [Ranexa] 500 mg PO BID Propranolol [Inderal] 20 mg PO DAILY No Action Cetirizine HCl 10 mg PO DAILY Ferrous Sulfate [Iron (65 MG Elemental)] 325 mg PO DAILY Febuxostat [Uloric] 40 mg PO DAILY Vitamin B Complex 1 cap PO DAILY Ergocalciferol (Vitamin D2) [Vitamin D2] 50,000 unit PO Q14D Insulin Aspart (For Pump) [NovoLOG (For Pump)] 0.01 unit SQ-PUMP CONTINUOUS calcitrioL [Calcitriol] 0.25 mcg PO MOTUWETHFR Pramipexole [Mirapex] 0.5 mg PO DAILY PRN PRN Reason: RESTLESS LEGS Cholecalciferol [Vitamin D3 (25 Mcg = 1000 Iu)] 25 mcg PO DAILY Albuterol Inhaler [Ventolin Hfa Inhaler] 2 puff INHALATION RT-QID PRN PRN Reason: Shortness Of Breath Fluticasone Propion/Salmeterol [Wixela 100-50 Inhub] 1 puff INHALATION RT-BID PRN PRN Reason: Shortness Of Breath methylPREDNISolone Dose Pack [Medrol Dose Pack] 4 mg PO DIRECTED #1 packet Cholestyramine (with Sugar) [Cholestyramine Packet] 4 gm PO BID PRN PRN Reason: Diarrhea Dulaglutide [Trulicity] 1.5 mg SQ TU Benzonatate [Benzonatate Perle] 200 mg PO Q8H PRN PRN Reason: Cough hydrALAZINE HCL [Apresoline] 10 mg PO TID Discharge Medication List Cetirizine HCl 10 mg PO DAILY 03/03/14 [History] Nitroglycerin Sl Tabs [Nitrostat] 0.4 mg SL Q5M PRN 03/03/14 [History] Rosuvastatin Calcium [Crestor] 40 mg PO HS 03/03/14 [History] Ezetimibe [Zetia] 10 mg PO DAILY 05/19/16 [History] Ferrous Sulfate [Iron (65 MG Elemental)] 325 mg PO DAILY 05/19/16 [History] Aspirin EC [Ecotrin Low Dose] 81 mg PO DAILY 05/28/18 [History] Ergocalciferol (Vitamin D2) [Vitamin D2] 50,000 unit PO Q14D 05/28/18 [History] Febuxostat [Uloric] 40 mg PO DAILY 05/28/18 [History] Insulin Aspart (For Pump) [NovoLOG (For Pump)] 0.01 unit SQ-PUMP CONTINUOUS 05/28/18 [History] Vitamin B Complex 1 cap PO DAILY 05/28/18 [History] Isosorbide Mononitrate ER [Imdur] 60 mg PO BID 07/05/18 [History] calcitrioL [Calcitriol] 0.25 mcg PO MOTUWETHFR 07/05/18 [History] Pramipexole [Mirapex] 0.5 mg PO DAILY PRN 05/02/19 [History] Ranolazine [Ranexa] 500 mg PO BID 05/02/19 [History] Propranolol [Inderal] 20 mg PO DAILY 07/28/20 [History] Dulaglutide [Trulicity] 1.5 mg SQ TU 05/23/21 [History] Albuterol Inhaler [Ventolin Hfa Inhaler] 2 puff INHALATION RT-QID PRN 08/10/21 [History] Cholecalciferol [Vitamin D3 (25 Mcg = 1000 Iu)] 25 mcg PO DAILY 08/10/21 [History] Fluticasone Propion/Salmeterol [Wixela 100-50 Inhub] 1 puff INHALATION RT-BID PRN 08/10/21 [History] Benzonatate [Benzonatate Perle] 200 mg PO Q8H PRN 10/08/21 [History] methylPREDNISolone Dose Pack [Medrol Dose Pack] 4 mg PO DIRECTED #1 packet 10/10/21 [Rx] Cholestyramine (with Sugar) [Cholestyramine Packet] 4 gm PO BID PRN 10/16/21 [History] hydrALAZINE HCL [Apresoline] 10 mg PO TID 10/16/21 [History] Furosemide [Lasix] 40 mg PO DAILY 30 Days #30 tablet 10/20/21 [Rx] Follow up Appointment(s)/Referral(s): Saritha Cadena MD [STAFF PHYSICIAN] - 10 Days Shiraz Castle DO [STAFF PHYSICIAN] - 10/23/21 3:00 pm Marlon Valentino MD [Primary Care Provider] - 1-2 days Ambulatory/Diagnostic Orders: Basic Metabolic Panel [LAB.AMB] Time Frame: 3 Days, Location: None Selected Activity/Diet/Wound Care/Special Instructions: Activity: as tolerated Diet: low potassium diet, 2L fluid restriction, carb consistent Special Instructions: Lasix 40 mg twice daily for 5 days then once daily Thanks for allowing us the privileged of caring for you. I wish you well on your journey to better health Discharge Disposition: HOME SELF-CARE
== END 2021-10-20 13:40 | disposition home or self-care (01) | DRG 291 ==
LOC: EC 14:57 → 6NMEDSUR 17:39 → OBSVTOIN 20:01
PROVIDERS: ADMIT Internal Medicine; ATTEND Internal Medicine
DX: I13.0 Hypertensive heart and chronic kidney disease with heart failure and stage 1 through stage 4 chronic kidney disease, or unspecified chronic kidney disease (principal); I50.33 Acute on chronic diastolic (congestive) heart failure; N17.9 Acute kidney failure, unspecified; N18.4 Chronic kidney disease, stage 4 (severe); E11.649 Type 2 diabetes mellitus with hypoglycemia without coma; E11.22 Type 2 diabetes mellitus with diabetic chronic kidney disease; I08.2 Rheumatic disorders of both aortic and tricuspid valves; E11.65 Type 2 diabetes mellitus with hyperglycemia; J44.9 Chronic obstructive pulmonary disease, unspecified; Z79.4 Long term (current) use of insulin; E78.5 Hyperlipidemia, unspecified; I25.2 Old myocardial infarction; G47.33 Obstructive sleep apnea (adult) (pediatric); I77.810 Thoracic aortic ectasia; E87.5 Hyperkalemia; I25.10 Atherosclerotic heart disease of native coronary artery without angina pectoris; M10.9 Gout, unspecified; F41.9 Anxiety disorder, unspecified; Z91.19 Patient's noncompliance with other medical treatment and regimen; Z79.82 Long term (current) use of aspirin; Z79.899 Other long term (current) drug therapy; Z77.29 Contact with and (suspected) exposure to other hazardous substances; Z96.41 Presence of insulin pump (external) (internal); Z90.49 Acquired absence of other specified parts of digestive tract; Z87.19 Personal history of other diseases of the digestive system; Z95.5 Presence of coronary angioplasty implant and graft; Z87.39 Personal history of other diseases of the musculoskeletal system and connective tissue; Z86.69 Personal history of other diseases of the nervous system and sense organs; Z87.891 Personal history of nicotine dependence; Z98.890 Other specified postprocedural states; Z71.3 Dietary counseling and surveillance; Z88.8 Allergy status to other drugs, medicaments and biological substances; Z80.52 Family history of malignant neoplasm of bladder; Z83.3 Family history of diabetes mellitus; Z80.0 Family history of malignant neoplasm of digestive organs
CPT/HCPCS: 36415; 71046; 78452; 78580; 80048; 80053; 83605; 83735; 83880; 84484; 85025; 85027; 85379; 85610; 85730; 93005; 93017; 93306; 93970; 94640; 99285

== ENCOUNTER 2022-02-21 14:08 | Observation (INO) | payer MEDICARE ==
[2022-02-21] MEDS ORDERED: VANCOMYCIN IV PER PHARMACY 1 EACH MISC MISCELLANE PRN (14:54)
[2022-02-21] MEDS ORDERED: PIPERACILLIN-TAZOBACTAM 3.375 GM in SODIUM CHLORIDE 0.9% 100 ML IVPB ONE (15:00)
[2022-02-21] MEDS ORDERED: VANCOMYCIN 1,750 MG in SODIUM CHLORIDE 0.9% 500 ML 500 ML IVPB ONE (15:15)
[2022-02-21 15:38] LABS: C Reactive Protein 5.9 mg/dL (<1.0)
[2022-02-21 15:55] LABS: Basophils # (A) 0.1 k/uL (0-0.2); Basophils % (A) 2 %; Eosinophils # (A) 0.1 k/uL (0-0.7); Eosinophils % (A) 3 %; HCT 37.8 % (39.0-53.0); HGB 12.7 gm/dL (13.0-17.5); Lymphocytes # (A) 1.4 k/uL (1.0-4.8); Lymphocytes % (A) 31 %; MCH 29.8 pg (25.0-35.0); MCHC 33.4 g/dL (31.0-37.0); MCV 89.2 fL (80.0-100.0); Mean Platelet Volume 8.3; Monocytes # (A) 0.6 k/uL (0-1.0); Monocytes % (A) 13 %; Neutrophils # (A) 2.1 k/uL (1.3-7.7); Neutrophils % (A) 48 %; Platelet Count 199 k/uL (150-450); RBC 4.24 m/uL (4.30-5.90); RDW 13.2 % (11.5-15.5); WBC 4.4 k/uL (3.8-10.6)
[2022-02-21 16:29] LABS: RBC Morphology Normal
[2022-02-21 16:40] LABS: Erythrocyte Sedimentation Rate 90 mm/hr (0-15)
--- NOTE | 2022-02-21 17:11 | CT ---
EXAMINATION TYPE: CT brain wo con, CT mastoid wo con CT DLP: 1115.4 (accession [id number]), 1181.5 (accession [id number]) mGycm, Automated exposure control fo r dose reduction was used. DATE OF EXAM: 02/21/2022 4:44 PM COMPARISON: CT brain 07/06/2014. CLINICAL INDICATION:Male, 71 years old with history of right sided otitis externa, worsening, right s ided otitis externa, worsening TECHNIQUE: Multiple axial CT images of the brain and mastoid were obtained without IV contrast. Coronal and sagi ttal reformats were obtained. FINDINGS: Brain: Extra-axial spaces: No abnormal extra-axial fluid collections. Ventricular system: Within normal limits Cerebral parenchyma: No acute intraparenchymal hemorrhage or mass effect. The haro-white junction is well differentiated. Cerebellum: Unremarkable. Mass effect: No evidence of midline shift. Intracranial vasculature: Atherosclerotic calcifications of the intracranial vessels. Soft tissues: Right-sided periauricular skin thickening and subcutaneous edema identified. This exten ds along the right external auditory canal. No fluid collection identified. Calvarium/osseous structures: No depressed skull fracture. No osseous erosions. The ossicles appear i ntact. Paranasal sinuses and mastoid air cells: Mild mucosal thickening of the left maxillary sinus. There i s partial opacification of the right mastoid air cells. The left mastoid air cells are clear. Opacifi cation of the external auditory canal extending up to the tympanic membrane. Opacification demonstrat ed within right Prussak space with intact scutum. Visualized orbits: Orbital contents are intact. Bilateral scleral calcifications noted. IMPRESSION: * No acute intracranial process. * Marked inflammation/infection of the right periauricular soft tissues with extension into the exte rnal auditory canal. There is opacification within Prussak's space and unilateral right mastoid effus ion. Findings are most consistent with otomastoiditis. No fluid collections identified.
[2022-02-21] MEDS ORDERED: NALOXONE 0.4 MG/ML 1 ML VIAL IV PRN (17:53)
--- NOTE | 2022-02-21 17:53 | ED ---
General Adult HPI - General Chief complaint: ENT Stated complaint: R ear issues Time Seen by Provider: 02/21/22 14:14 Source: patient, RN notes reviewed, old records reviewed Mode of arrival: ambulatory Limitations: no limitations - History of Present Illness Initial comments: Patient is a 71-year-old male with past medical history remarkable for CAD, h eart failure, diabetes on insulin pump, hypertension, CK D presents emergency Department complaining of worsening right ear infection. Infection began 4-5 days ago. Has been on the ear antibiotics as well as oral antibiotics but the swelling seems to be getting worse. Initially had some discharge from the ear but nothing since. Endorses swelling of the external ear as well as a fullness sensation in the area. No difficulty with hearing. No bone tenderness behind the ear. No abdominal pain, nausea, vomiting, chest pain. No systemic fevers. No other acute complaints at this time. Presents for further evaluation. - Related Data Home Medications Medication Instructions Recorded Confirmed Cetirizine HCl 10 mg PO DAILY 03/03/14 02/21/22 Nitroglycerin Sl Tabs [Nitrostat] 0.4 mg SL Q5M PRN 03/03/14 02/21/22 Rosuvastatin Calcium [Crestor] 40 mg PO HS 03/03/14 02/21/22 Ezetimibe [Zetia] 10 mg PO DAILY 05/19/16 02/21/22 Ferrous Sulfate [Iron (65 MG 325 mg PO DAILY 05/19/16 02/21/22 Elemental)] Ergocalciferol (Vitamin D2) 50,000 unit PO Q14D 05/28/18 02/21/22 [Vitamin D2] Febuxostat [Uloric] 40 mg PO DAILY 05/28/18 02/21/22 Insulin Aspart (For Pump) [NovoLOG 0.01 unit SQ-PUMP CONTINUOUS 05/28/18 02/21/22 (For Pump)] Vitamin B Complex 1 cap PO DAILY 05/28/18 02/21/22 Isosorbide Mononitrate ER [Imdur] 60 mg PO BID 07/05/18 02/21/22 calcitrioL [Calcitriol] 0.25 mcg PO MOTUWETHFR 07/05/18 02/21/22 Pramipexole [Mirapex] 0.5 mg PO HS 05/02/19 02/21/22 Ranolazine [Ranexa] 500 mg PO BID 05/02/19 02/21/22 Propranolol [Inderal] 20 mg PO DAILY 07/28/20 02/21/22 Dulaglutide [Trulicity] 1.5 mg SQ SA 05/23/21 02/21/22 Albuterol Inhaler [Ventolin Hfa 2 puff INHALATION RT-Q4H PRN 08/10/21 02/21/22 Inhaler] Fluticasone Propion/Salmeterol 1 puff INHALATION RT-BID 08/10/21 02/21/22 [Wixela 100-50 Inhub] hydrALAZINE HCL [Apresoline] 10 mg PO BID 10/16/21 02/21/22 Aspirin EC [Ecotrin Low Dose] 81 mg PO DAILY 02/21/22 02/21/22 Cefdinir [Omnicef] 300 mg PO DAILY 02/21/22 02/21/22 Cholecalciferol [Vitamin D3 (25 25 mcg PO DAILY 02/21/22 02/21/22 Mcg = 1000 Iu)] Escitalopram [Lexapro] 20 mg PO DAILY 02/21/22 02/21/22 Glucagon Emergency Kit 1 mg IM ONCE PRN 02/21/22 02/21/22 Ofloxacin 0.3% Ophth Soln [Ocuflox 10 drops RIGHT EYE DAILY 02/21/22 02/21/22 Ophth Soln] Spironolactone-Hctz 25-25Mg 1 tab PO DAILY 02/21/22 02/21/22 [Aldactazide 25-25 MG] Previous Rx's Medication Instructions Recorded Furosemide [Lasix] 40 mg PO DAILY 30 Days #30 tablet 10/20/21 Allergies Allergy/AdvReac Type Severity Reaction Status Date / Time atorvastatin [From Lipitor] AdvReac Unknown Verified 02/21/22 14:12 baclofen AdvReac Unknown Verified 02/21/22 14:12 Review of Systems ROS Statement: Those systems with pertinent positive or pertinent negative responses have been documented in the HPI. Review of Systems: CONST: Denies fever EYES: Denies blurry vision ENT: Endorses right ear redness, swelling C/V: Denies Chest pain RESP: Denies shortness of breath GI: Denies abdominal pain : Denies dysuria SKIN: Denies rash. MSK: Denies joint pain. NEURO: Denies headache ROS Other: All systems not noted in ROS Statement are negative. Past Medical History Past Medical History: Coronary Artery Disease (CAD), Chest Pain / Angina, Heart Failure, Diabetes Mellitus, Hyperlipidemia, Hypertension, Myocardial Infarction ([place]), Renal Disease Additional Past Medical History / Comment(s): 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, coronary artery disease, diabetes mellitus, hypertension, chronic renal failure, hyperlipidemia, JEN Last Myocardial Infarction Date:: 03/04/14 History of Any Multi-Drug Resistant Organisms: None Reported Past Surgical History: Cholecystectomy, Heart Catheterization, Heart Catheteriz ation With Stent Additional Past Surgical History / Comment(s): shoulder, hemmroid, cardiac stent in june 2014, eye surgery Past Anesthesia/Blood Transfusion Reactions: No Reported Reaction Additional Past Anesthesia/Blood Transfusion Reaction / Comment(s): Never had a blood transfusion Date of Last Stent Placement:: 05/2014 Past Psychological History: Anxiety Smoking Status: Former smoker Past Alcohol Use History: None Reported Past Drug Use History: None Reported - Past Family History Father Family Medical History: Cancer Additional Family Medical History / Comment(s): bladder cancer Mother Family Medical History: Diabetes Mellitus Additional Family Medical History / Comment(s): Pancreatic [place] General Exam - General Exam Comments Initial Comments: General: Appears in no acute distress. HEAD: Normal with no signs of head trauma. EYES: PERRLA, EOMI, conjunctiva normal, no discharge. Pupils 3 mm and equal bilaterally. ENT: Hearing grossly intact, normal oropharynx. Left TM and ear exam are within normal limits. Right ear exam shows tenderness to palpation of the ear auricle as well as tragus. The auricle is edematous and erythematous. No current discharge. No discharge from the canal. External auditory canal is patent, erythematous. I was able to easily visualize the patient's tympanic membrane. Tympanic membrane on the right appears within normal limits. No mastoid process tenderness to palpation. No trismus. RESPIRATORY: Clear breath sounds bilaterally. No wheezes, rales, or rhonchi. No stridor. C/V: Regular rate and rhythm. S1 and S2 auscultated, no edema, peripheral pulses 2+ and intact throughout ABD: Abd is soft, nontender, nondistended EXT: Normal range of motion, no obvious deformity SKIN: No rashes or lesions observed on exposed skin. NEURO: Alert and oriented 4. No focal deficits. Cranial nerves II-XII are intact and wnl. Limitations: no limitations Course Vital Signs 02/21/22 14:09 Temperature 98.1 F Pulse Rate 71 Respiratory 16 Rate Blood Pressure 170/65 O2 Sat by Pulse 96 Oximetry Medical Decision Making - Medical Decision Making Based on the patient's presentation and physical exam, I do not currently have concern for malignant otitis externa but I do believe he has otitis externa as well as perichondritis of the auricle. Recommended we obtain CT imaging to rule out any worsening infection in the soft tissues or bone. He was in agreement this plan. We'll obtain basic laboratory studies, ESR, CRP. We'll obtain blood cultures and start the patient on IV vancomycin and Zosyn. Vital signs within normal limits. Laboratory studies are remarkable for a normocytic anemia with hemoglobin of 12.7. This is chronic. Patient has CK D with stable BUN/creatinine 41.91 for the patient. Glucose is within normal limits at 184. ESR is elevated to 90, CRP is 5.9 and elevated. Imaging revealed no acute intracranial process. There is marked inflammation/infection of the right paraventricular soft tissues with extension into the external auditory canal. There is opacification within process base and unilateral right mastoid effusion. Most consistent with otomastoiditis. Patient remains nontender to palpation of the mastoid process. I discussed results with him. I believe it is best to admit him to the hospital and continue IV antibiotics pretty was in agreement this plan. Vital signs remained stable and within normal limits. Patient was given a single dose of Decadron, as well as IV analgesia. Will be continued on vancomycin, Zosyn. Will start the patient on Ciprodex drops twice a day. I did speak with on-call ENT, Dr. Mancia who was in agreement with this plan. He is comfortable with the patient remaining here for IV antibiotics and evaluation. He requested I consult infectious disease which was done. I spoke with the admitting physician, Dr. Barroso who was in agreement this plan. We will continue the patient on his insulin pump to manage his diabetes at this time. Patient was in agreement with this plan. Patient will be admitted in stable condition. - Lab Data Result diagrams: 02/21/22 14:58 02/21/22 14:58 Lab Results 0702/21/22 02/21/22 Range/Units 14:58 14:58 14:58 WBC 4.4 (3.8-10.6) k/uL RBC 4.24 L (4.30-5.90) m/uL Hgb 12.7 L (13.0-17.5) gm/dL Hct 37.8 L (39.0-53.0) % MCV 89.2 (80.0-100.0) fL MCH 29.8 (25.0-35.0) pg MCHC 33.4 (31.0-37.0) g/dL RDW 13.2 (11.5-15.5) % Plt Count 199 (150-450) k/uL MPV 8.3 Neutrophils % 48 % Lymphocytes % 31 % Monocytes % 13 % Eosinophils % 3 % Basophils % 2 % Neutrophils # 2.1 (1.3-7.7) k/uL Lymphocytes # 1.4 (1.0-4.8) k/uL Monocytes # 0.6 (0-1.0) k/uL Eosinophils # 0.1 (0-0.7) k/uL Basophils # 0.1 (0-0.2) k/uL Manual Slide Review Performed RBC Morphology Normal ESR 90 H (0-15) mm/hr Sodium 137 (137-145) mmol/L Potassium 4.0 (3.5-5.1) mmol/L Chloride 103 (98-107) mmol/L Carbon Dioxide 25 (22-30) mmol/L Anion Gap 9 mmol/L BUN 41 H (9-20) mg/dL Creatinine 2.91 H (0.66-1.25) mg/dL Est GFR (CKD-EPI)AfAm 24 (>60 ml/min/1.73 sqM) Est GFR (CKD-EPI)NonAf 21 (>60 ml/min/1.73 sqM) Glucose 184 H (74-99) mg/dL Plasma Lactic Acid Geo 0.8 (0.7-2.0) mmol/L Calcium 9.0 (8.4-10.2) mg/dL Magnesium 2.0 (1.6-2.3) mg/dL C-Reactive Protein 5.9 H (<1.0) mg/dL Disposition Clinical Impression: Perichondritis of auricle, Otitis externa, Mastoiditis, Diabetes, CKD (chronic kidney disease) Disposition: ADMITTED IP TO THIS HOSP Condition: Stable Time of Disposition: 17:30
[2022-02-21] MEDS ORDERED: DEXAMETHASONE SOD PHOSPHATE 10 MG/ML 1 ML VIAL IVP STA (17:56)
[2022-02-21] MEDS ORDERED: ALBUTEROL NEBULIZED 2.5 MG/3 ML INHALATION PRN (18:29)
[2022-02-21] MEDS ORDERED: GLUCAGON 1 MG/ML VIAL IM PRN (18:29)
[2022-02-21] MEDS: MORPHINE SULFATE 4 MG/ML SYRINGE IV PRN (18:59)
[2022-02-21] MEDS: Insulin Aspart (For Pump) 100 UNIT/ML VIAL SQ-PUMP SCH (19:30)
[2022-02-21] MEDS: SYMBICORT 80-4.5 MCG INHALER INHALATION SCH (20:37)
[2022-02-21] MEDS: NON FORMULARY DRUG (Rosuvastatin Calcium [Crestor] 40 MG Tablet) PO SCH (21:45)
[2022-02-21] MEDS: PRAMIPEXOLE 0.5 MG TAB PO SCH (22:02)
[2022-02-21] MEDS: CIPROFLOXACIN-DEXAMETH 0.3-0.1% DROPS 7.5 ML BTL RIGHT EAR SCH (22:02)
[2022-02-21] MEDS: ISOSORBIDE MONONITRATE ER 60 MG TAB.ER.24H PO SCH (22:02)
[2022-02-21] MEDS: RANOLAZINE 500 MG TAB.ER.12H PO SCH (22:02)
[2022-02-21] MEDS: hydrALAZINE HCL 10 MG TAB PO SCH (22:02)
--- NOTE | 2022-02-21 22:35 | P.HPIM ---
History of Present Illness H&P Date: 02/21/22 Chief Complaint: right ear swelling and infection 71 year old male with uncontrolled DM on a diabetic pump, uncontrolled hypertension , CAD s/p stents, CKD4 comes in due to worsening right ear infection and swelling, started 1.5 weeks ago when he noticed some clear drainage of his right ear, no bleeding , no injuries , then few days later, he started noticed foul smell, and swelling of the ear, he was diagnosed with ear infection and was started on ear drops and antibiotics 3-4 days ago, with not much improvement, he continues to have chills, and progressive swelling of his ear, no changes in hearing. denies any fever, cough, URI symptoms, chest pain , SOB, abd pain , nausea or vomiting. CT of the head and neck showed ostomastoiditis patient initiated on ABx , and given one time dose of steroids Review of Systems Pertinent positives as noted in HPI. All other systems were reviewed and are negative Past Medical History Past Medical History: Coronary Artery Disease (CAD), Chest Pain / Angina, Heart Failure, Diabetes Mellitus, Hyperlipidemia, Hypertension, Myocardial Infarction ([place]), Renal Disease Additional Past Medical History / Comment(s): 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, coronary artery disease, diabetes mellitus, hypertension, chronic renal failure, hyperlip idemia, JEN Last Myocardial Infarction Date:: 03/04/14 History of Any Multi-Drug Resistant Organisms: None Reported Past Surgical History: Cholecystectomy, Heart Catheterization, Heart Catheterization With Stent Additional Past Surgical History / Comment(s): shoulder, hemmroid, cardiac stent in june 2014, eye surgery Past Anesthesia/Blood Transfusion Reactions: No Reported Reaction Additional Past Anesthesia/Blood Transfusion Reaction / Comment(s): Never had a blood transfusion Date of Last Stent Placement:: 05/2014 Past Psychological History: Anxiety Smoking Status: Former smoker Past Alcohol Use History: None Reported Past Drug Use History: None Reported - Past Family History Father Family Medical History: Cancer Additional Family Medical History / Comment(s): bladder cancer Mother Family Medical History: Diabetes Mellitus Additional Family Medical History / Comment(s): Pancreatic [place] Medications and Allergies Home Medications Medication Instructions Recorded Confirmed Type Cetirizine HCl 10 mg PO DAILY 03/03/14 02/21/22 History Nitroglycerin Sl Tabs [Nitrostat] 0.4 mg SL Q5M PRN 03/03/14 02/21/22 History Rosuvastatin Calcium [Crestor] 40 mg PO HS 03/03/14 02/21/22 History Ezetimibe [Zetia] 10 mg PO DAILY 05/19/16 02/21/22 History Ferrous Sulfate [Iron (65 MG 325 mg PO DAILY 05/19/16 02/21/22 History Elemental)] Ergocalciferol (Vitamin D2) 50,000 unit PO Q14D 05/28/18 02/21/22 History [Vitamin D2] Febuxostat [Uloric] 40 mg PO DAILY 05/28/18 02/21/22 History Insulin Aspart (For Pump) [NovoLOG 0.01 unit SQ-PUMP CONTINUOUS 05/28/18 02/21/22 History (For Pump)] Vitamin B Complex 1 cap PO DAILY 05/28/18 02/21/22 History Isosorbide Mononitrate ER [Imdur] 60 mg PO BID 07/05/18 02/21/22 History calcitrioL [Calcitriol] 0.25 mcg PO MOTUWETHFR 07/05/18 02/21/22 History Pramipexole [Mirapex] 0.5 mg PO HS 05/02/19 02/21/22 History Ranolazine [Ranexa] 500 mg PO BID 05/02/19 02/21/22 History Propranolol [Inderal] 20 mg PO DAILY 07/28/20 02/21/22 History Dulaglutide [Trulicity] 1.5 mg SQ SA 05/23/21 02/21/22 History Albuterol Inhaler [Ventolin Hfa 2 puff INHALATION RT-Q4H PRN 08/10/21 02/21/22 History Inhaler] Fluticasone Propion/Salmeterol 1 puff INHALATION RT-BID 08/10/21 02/21/22 History [Wixela 100-50 Inhub] hydrALAZINE HCL [Apresoline] 10 mg PO BID 10/16/21 02/21/22 History Furosemide [Lasix] 40 mg PO DAILY 30 Days #30 tablet 10/20/21 02/21/22 Rx Aspirin EC [Ecotrin Low Dose] 81 mg PO DAILY 02/21/22 02/21/22 History Cefdinir [Omnicef] 300 mg PO DAILY 02/21/22 02/21/22 History Cholecalciferol [Vitamin D3 (25 25 mcg PO DAILY 02/21/22 02/21/22 History Mcg = 1000 Iu)] Escitalopram [Lexapro] 20 mg PO DAILY 02/21/22 02/21/22 History Glucagon Emergency Kit 1 mg IM ONCE PRN 02/21/22 02/21/22 History Ofloxacin 0.3% Ophth Soln [Ocuflox 10 drops RIGHT EYE DAILY 02/21/22 02/21/22 History Ophth Soln] Spironolactone-Hctz 25-25Mg 1 tab PO DAILY 02/21/22 02/21/22 History [Aldactazide 25-25 MG] Allergies Allergy/AdvReac Type Severity Reaction Status Date / Time atorvastatin [From Lipitor] AdvReac Unknown Verified 02/21/22 14:12 baclofen AdvReac Unknown Verified 02/21/22 14:12 Physical Exam Vitals: Vital Signs Temp Pulse Resp BP Pulse Ox 02/21/22 14:09 98.1 F 71 16 170/65 96 Intake and Output 02/21/22 02/21/22 02/21/22 06:59 14:59 22:59 Other: Weight 104.326 kg Constitutional: No acute distress, conversant, pleasant Eyes: Anicteric sclerae, moist conjunctiva, Pupils equal round reactive to light ENMT: NC/AT, swelling of the right ear pinna, otoscope exam showed intact tympanic membrane, no tenderness to manipulation of the right ear pinna, no tenderness to palpation of the surrounding bone . rright ear pinna looks edematus and erythematus and warm, no drainage Neck: Supple, no masses, or JVD No carotid bruits No thyromegaly Lungs: Clear to auscultation Clear to percussion Normal respiratory effort, no accessory muscle use Cardiovascular: Heart regular in rate and rhythm, No murmurs, gallops, or rubs No peripheral edema Abdominal: Soft Nontender, no guarding, rebound or rigidity Abdomen moving with respiration Normoactive bowel sounds No hepatomegaly, No splenomegaly No palpable mass No abdominal wall hernia noted Skin: Normal temperature, tone, texture, turgor No induration No subcutaneous nodules No rash, lesions No ulcers Extremities: No digital cyanosis No clubbing Pedal pulses intact and symmetrical Radial pulses intact and symmetrical No calf tenderness Psychiatric: Alert and oriented to person, place and time Appropriate affect fair judgement Neuro Muscles Strength 5/5 in all 4 extremities Sensation to light touch grossly present throughout Cranial nerves II-XII grossly intact No focal sensory deficits Lymphatics: no palpable cervical or supraclavicular , or inguinal lymph nodes Results CBC & Chem 7: 02/21/22 14:58 02/21/22 14:58 Labs: Abnormal Lab Results - Last 24 Hours (Table) 02/21/22 02/21/22 Range/Units 14:58 14:58 RBC 4.24 L (4.30-5.90) m/uL Hgb 12.7 L (13.0-17.5) gm/dL Hct 37.8 L (39.0-53.0) % ESR 90 H (0-15) mm/hr BUN 41 H (9-20) mg/dL Creatinine 2.91 H (0.66-1.25) mg/dL Glucose 184 H (74-99) mg/dL C-Reactive Protein 5.9 H (<1.0) mg/dL Assessment and Plan Assessment: otomastoiditis external ear infection failed OP therapy follow up cultures CT head and neck reviewed, suggestive of ostomastoidits ENT consult initiated on vanc and zosyn ciprodex tylenol for fever PRN pain control monitor vital signs elevated BP with histroy of hypertension resume home BP meds clonidine prn for systolic > 180 chronic conditions DM continue with insulin pump cad , hypertension , resume home cardiac meds RLS , resume mirapex DVT PPX heparin sc tid full code
[2022-02-21] MEDS: HEPARIN SODIUM,PORCINE/PF 5,000 UNIT/0.5 ML SYRINGE SQ SCH (23:51)
[2022-02-21] MEDS: PIPERACILLIN-TAZOBACTAM 3.375 GM in SODIUM CHLORIDE 0.9% 100 ML IVPB SCH (23:55)
[2022-02-22] MEDS: MORPHINE SULFATE 4 MG/ML SYRINGE IV PRN (01:05)
[2022-02-22] MEDS: ASPIRIN 81 MG PO SCH (08:33)
[2022-02-22] MEDS: PIPERACILLIN-TAZOBACTAM 3.375 GM in SODIUM CHLORIDE 0.9% 100 ML IVPB SCH ×2 (08:33→15:59)
[2022-02-22] MEDS: ISOSORBIDE MONONITRATE ER 60 MG TAB.ER.24H PO SCH ×2 (08:33→20:40)
[2022-02-22] MEDS: hydrALAZINE HCL 10 MG TAB PO SCH ×3 (08:33→20:45)
[2022-02-22] MEDS: HEPARIN SODIUM,PORCINE/PF 5,000 UNIT/0.5 ML SYRINGE SQ SCH ×2 (08:33→15:58)
[2022-02-22] MEDS: FUROSEMIDE 40 MG TAB PO SCH (08:34)
[2022-02-22] MEDS: LORATADINE 10 MG TAB PO SCH (08:34)
[2022-02-22] MEDS: ESCITALOPRAM 20 MG TAB PO SCH (08:34)
[2022-02-22] MEDS: allopurinoL 100 MG TAB PO SCH (08:34)
[2022-02-22] MEDS: CIPROFLOXACIN-DEXAMETH 0.3-0.1% DROPS 7.5 ML BTL RIGHT EAR SCH ×2 (08:34→20:40)
[2022-02-22] MEDS: PROPRANOLOL 20 MG TAB PO SCH (08:35)
[2022-02-22] MEDS: RANOLAZINE 500 MG TAB.ER.12H PO SCH ×2 (08:35→20:40)
[2022-02-22] MEDS: EZETIMIBE 10 MG TAB PO SCH (08:38)
[2022-02-22 09:14] LABS: Basophils # (A) 0 X 10*3/uL (0.00-0.10); Basophils % (A) 0 %; Eosinophils # (A) 0 X 10*3/uL (0.04-0.35); Eosinophils % (A) 0 %; HCT 36.4 % (39.6-50.0); HGB 11.6 g/dL (13.0-17.0); Immature Grans, Automated 1.5 %; Lymphocytes % (A) 22.1 %; MCH 28.4 pg (27.0-32.0); MCHC 31.9 g/dL (32.0-37.0); Mean Platelet Volume 11.5 fL (9.5-12.2); Monocytes # (A) 0.09 X 10*3/uL (0.20-1.00); Monocytes % (A) 3.3 %; NRBC Per 100 WBC 0 /100 WBCS (0.0-0.0); Neutrophils # (A) 1.98 X 10*3/uL (1.80-7.70); Neutrophils % (A) 73.1 %; Platelet Count 198 X 10*3/uL (140-440); RBC 4.09 X 10*6/uL (4.40-5.60); RDW 12.8 % (11.5-14.5); WBC 2.71 X 10*3/uL (4.50-10.00)
[2022-02-22] MEDS: SYMBICORT 80-4.5 MCG INHALER INHALATION SCH ×2 (09:16→20:08)
[2022-02-22 09:27] LABS: African American GFR (CKD) 23.3 (60.0-200.0); Anion Gap 12.4 mmol/L (10.00-18.00); BUN/Creat Ratio 14.24 Ratio (12.00-20.00); Blood Urea Nitrogen 42.3 mg/dL (9.0-27.0); Calcium 8.5 mg/dL (8.7-10.3); Carbon Dioxide 23.1 mmol/L (20.0-27.5); Non-African American GFR(CKD) 20.1 (60.0-200.0); Potassium 4.6 mmol/L (3.5-5.5)
[2022-02-22] MEDS: SPIRONOLACTONE-HCTZ 25-25MG 1 EACH TAB PO SCH (09:54)
[2022-02-22 11:47] LABS: Glucose,Whole Blood 302 mg/dL (70-110)
[2022-02-22] MEDS ORDERED: VANCOMYCIN 1,750 MG in SODIUM CHLORIDE 0.9% 500 ML 500 ML IVPB ONE (12:00)
[2022-02-22] MEDS: DAPTOmycin 500 MG in SODIUM CHLORIDE 0.9% 50 ML IVPB SCH (13:43)
--- NOTE | 2022-02-22 13:44 | P.PN ---
Subjective The patient was examined at bedside at present. He does complain of subjective chills at home with drainage from his right ear. He denied any recent travel, trauma, injury or insect bite. He tried oral antibiotics without any resolution. He decided to come into the hospital. Objective - Vital Signs Vital signs: Vital Signs Temp 97.6 F 02/22/22 01:08 Pulse 62 02/22/22 09:58 Resp 18 02/22/22 09:58 BP 128/67 02/22/22 08:02 Pulse Ox 98 02/22/22 08:02 FiO2 Intake & Output 02/21/22 02/22/22 02/22/22 18:59 06:59 18:59 Weight 104.326 kg 104.326 kg Other: Voiding Method Toilet Toilet # Voids 2 - Exam Gen. patient is awake alert oriented 3 Ear swollen with no visible drainage noted Heart normal S1/S2 no murmurs Respiratory no wheezing or rhonchi Extremity no pitting edema noted - Labs CBC & Chem 7: 02/22/22 05:46 02/22/22 05:46 Labs: Abnormal Lab Results - Last 24 Hours (Table) 02/21/22 02/21/22 02/22/22 Range/Units 14:58 14:58 05:46 WBC 2.71 L (4.50-10.00) X 10*3/uL RBC 4.24 L 4.09 L (4.30-5.90) m/uL Hgb 12.7 L 11.6 L (13.0-17.5) gm/dL Hct 37.8 L 36.4 L (39.0-53.0) % MCHC 31.9 L (32.0-37.0) g/dL Lymphocytes # 0.60 L (0.90-5.00) X 10*3/uL Monocytes # 0.09 L (0.20-1.00) X 10*3/uL Eosinophils # 0 L (0.04-0.35) X 10*3/uL ESR 90 H (0-15) mm/hr BUN 41 H (9-20) mg/dL Creatinine 2.91 H (0.66-1.25) mg/dL Est GFR (CKD-EPI)AfAm (60.0-200.0) Est GFR (CKD-EPI)NonAf (60.0-200.0) Glucose 184 H (74-99) mg/dL POC Glucose (mg/dL) (70-110) mg/dL Calcium (8.7-10.3) mg/dL C-Reactive Protein 5.9 H (<1.0) mg/dL 02/22/22 02/22/22 Range/Units 05:46 11:46 WBC (4.50-10.00) X 10*3/uL RBC (4.30-5.90) m/uL Hgb (13.0-17.5) gm/dL Hct (39.0-53.0) % MCHC (32.0-37.0) g/dL Lymphocytes # (0.90-5.00) X 10*3/uL Monocytes # (0.20-1.00) X 10*3/uL Eosinophils # (0.04-0.35) X 10*3/uL ESR (0-15) mm/hr BUN 42.3 H (9-20) mg/dL Creatinine 3.0 H (0.66-1.25) mg/dL Est GFR (CKD-EPI)AfAm 23.3 L (60.0-200.0) Est GFR (CKD-EPI)NonAf 20.1 L (60.0-200.0) Glucose 199 H (74-99) mg/dL POC Glucose (mg/dL) 302 H (70-110) mg/dL Calcium 8.5 L (8.7-10.3) mg/dL C-Reactive Protein (<1.0) mg/dL Assessment and Plan Assessment: Assessment: #1.Otomastoididits #2 essential hypertension #3 diabetes mellitus on insulin pump #4 coronary artery disease Plan: -Admitted to internal medicine -Aspiration/fall precaution -Patient has been started on ciprofloxacin/dexamethasone eardrops -Antimicrobials as per infectious disease team -Continue to monitor closely. -Resume home medication -DVT to prophylaxis.
[2022-02-22 16:47] LABS: Glucose,Whole Blood 189 mg/dL (70-110)
[2022-02-22] MEDS: Insulin Aspart (For Pump) 100 UNIT/ML VIAL SQ-PUMP SCH (18:52)
--- NOTE | 2022-02-22 19:05 | CONS ---
CONSULTATION REASON FOR CONSULTATION: Ear infection. HISTORY: This is a 71-year-old white male who has an approximate ovn-enx-l-half-week history of right ear swelling and pain. This started on the external ear and progressively worsened with swelling and erythema. He did have a little bit of clear weeping fluid from the external ear itself. He stated that his symptoms continued to worsen, and at the end of last week on Tuesday he was placed on oral antibiotics and otic drops. He thinks the antibiotics were Omnicef and was not sure about the drops. Despite this, his ear worsened as well as having some erythema progressing toward the right cheek also, and he came into the ER for evaluation. There have been no open sores or pustules noted. He did not notice any insect bites. He has not had difficulties like this previously. He was was placed on Zosyn and vancomycin initially, although the vancomycin was discontinued by Infectious Disease. He was also placed on Cipro with dexamethasone drops. He has baseline decreased hearing from noise exposure in the past and does not feel that this has changed. He had a CT which showed soft tissue swelling. There was a small amount of fluid in the right mastoid, although no cortical erosion. There was also some opacification in the space on the right. He has progressively improved today quite markedly and the ear is not particularly sore anymore, although he does still have some swelling. PAST MEDICAL HISTORY: Significant for coronary artery disease, heart failure, diabetes, hyperlipidemia, hypertension, [place], renal disease, Agent [place] exposure, sleep apnea, renal failure. PAST SURGICAL HISTORY: Cholecystectomy, heart catheterization including stent, shoulder surgery, hemorrhoidectomy, eye surgery. REVIEW OF SYSTEMS: He denies fever, cough, URI, chest pain, shortness of breath, abdominal pain, nausea and vomiting. All pertinent positives are in the HPI. All other systems reviewed were negative. SOCIAL HISTORY: He did smoke, but does not now. No alcohol use now. FAMILY HISTORY: Positive for cancer and diabetes. HOME MEDICATIONS: Cetirizine, nitroglycerin, Crestor, Zetia, iron, vitamin D, Uloric, insulin pump, vitamin B, isosorbide, calcitriol, Mirapex, Ranexa, Inderal, Trulicity, albuterol, Flonase, hydralazine, Lasix, baby aspirin, Omnicef, Lexapro, spironolactone. ALLERGIES: ATORVASTATIN, BACLOFEN. PHYSICAL EXAMINATION: GENERAL: This is a well-developed white male in no acute distress. He is conversant, awake, alert, oriented x3. Vital signs show he is afebrile. Stable vital signs otherwise. HEENT: Head normocephalic and atraumatic. Ears: On the left, canal is clear, tympanic membrane is unremarkable and mobile. On the right, the external ear has diffuse moderate erythema and swelling, minimal tenderness, especially at the ear lobe area. The external canal does not show swelling or drainage. Tympanic membranes are bilaterally unremarkable and mobile. No mastoid or tragal tenderness on either side. There is slight erythema of the skin of the right over the right parotid also. Eyes: Extraocular movements are intact. Pupils are equally round, reactive to light and accommodation. Nose shows no drainage or obstruction. Mouth and throat show no abnormal masses or erythema. No trismus. NECK: Supple without adenopathy or tenderness. ASSESSMENT: Cellulitis, right auricle and periauricular. PLAN: The patient so far has responded quite well to the antibiotics. Would continue the present antibiotic and, dependent on his progress, he may be able to be discharged on corresponding or similar oral antibiotic within a day or two. He can follow up in my office after discharge for recheck on the ear and with audiogram, which I reviewed with him today. Continue also the otic drops for a full 7 to 10 days. If there are questions regarding this consultation, please feel free to contact me. MMODL / IJN: [id number] /
[2022-02-22] MEDS: PRAMIPEXOLE 0.5 MG TAB PO SCH (20:40)
[2022-02-22] MEDS: NON FORMULARY DRUG (Rosuvastatin Calcium [Crestor] 40 MG Tablet) PO SCH (20:46)
--- NOTE | 2022-02-22 22:32 | P.CONS ---
History of Present Illness - Reason for Consult Consult date: 02/22/22 Mastoiditis/otitis externa Requesting physician: Laci Zhu - Chief Complaint Right ear pain and swelling x 1 week - History of Present Illness Patient is a 71-year male with a past medical history significant for diabetes mellitus patient apparently developed some drainage from the right ear about a week and a half ago patient did admit to using Q-tips to clean up his ear prior to that patient mention after drainage he felt little bit better however subsequent notices right external ear becoming more swollen and red and he has unrelenting pain 3-4 out of 10 head no radiation patient apparently was evaluated by his primary care physician on Tuesday and the patient restarted on Omnicef and some eardrops to the right ear however the patient did have a worsening of the swelling and redness for the patient was brought into the ER, on arrival to the ER patient was afebrile and no fever had been recorded subsequently patient did have a normal white count initially did have elevated BUN and creatinine CRP was 5.9 blood cultures obtained currently pending patient did have a CT of the head and mastoid area which was marked inflammation of the right periauricular soft tissue with extension into the external auditory canal there is opacification within the Prussak"s space and urinary to right mastoid effusion concerning for osteomyelitis patient was started on vancomycin and Zosyn infectious disease was consulted for further management of antibiotic therapy Review of Systems Positive point has been mentioned in the HPI rest of the systems are negative All systems: negative Constitutional: Denies chills, Denies fever Eyes: denies blurred vision, denies pain Ears, nose, mouth and throat: Denies headache, Denies sore throat Cardiovascular: Denies chest pain, Denies shortness of breath Respiratory: Denies cough Gastrointestinal: Denies abdominal pain, Denies diarrhea, Denies nausea, Denies vomiting Musculoskeletal: Denies myalgias Integumentary: Denies pruritus, Denies rash Neurological: Denies numbness, Denies weakness Psychiatric: Denies anxiety, Denies depression Endocrine: Denies fatigue, Denies weight change Past Medical History Past Medical History: Coronary Artery Disease (CAD), Chest Pain / Angina, Heart Failure, Diabetes Mellitus, Hyperlipidemia, Hypertension, Myocardial Infarction ([place]), Renal Disease Additional Past Medical History / Comment(s): 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, coronary artery disease, diabetes mellitus, hypertension, chronic renal failure, hyperlipidemia, JEN Last Myocardial Infarction Date:: 03/04/14 History of Any Multi-Drug Resistant Organisms: None Reported Past Surgical History: Cholecystectomy, Heart Catheterization, Heart Catheteriz ation With Stent Additional Past Surgical History / Comment(s): shoulder, hemmroid, cardiac stent in june 2014, eye surgery Past Anesthesia/Blood Transfusion Reactions: No Reported Reaction Additional Past Anesthesia/Blood Transfusion Reaction / Comm: Never had a blood transfusion Date of Last Stent Placement:: 05/2014 Past Psychological History: Anxiety Smoking Status: Former smoker Past Alcohol Use History: None Reported Past Drug Use History: None Reported - Past Family History Father Family Medical History: Cancer Additional Family Medical History / Comment(s): bladder cancer Mother Family Medical History: Diabetes Mellitus Additional Family Medical History / Comment(s): Pancreatic CA Medications and Allergies Home Medications Medication Instructions Recorded Confirmed Type Cetirizine HCl 10 mg PO DAILY 03/03/14 02/21/22 History Nitroglycerin Sl Tabs [Nitrostat] 0.4 mg SL Q5M PRN 03/03/14 02/21/22 History Rosuvastatin Calcium [Crestor] 40 mg PO HS 03/03/14 02/21/22 History Ezetimibe [Zetia] 10 mg PO DAILY 05/19/16 02/21/22 History Ferrous Sulfate [Iron (65 MG 325 mg PO DAILY 05/19/16 02/21/22 History Elemental)] Ergocalciferol (Vitamin D2) 50,000 unit PO Q14D 05/28/18 02/21/22 History [Vitamin D2] Febuxostat [Uloric] 40 mg PO DAILY 05/28/18 02/21/22 History Insulin Aspart (For Pump) [NovoLOG 0.01 unit SQ-PUMP CONTINUOUS 05/28/18 02/21/22 History (For Pump)] Vitamin B Complex 1 cap PO DAILY 05/28/18 02/21/22 History Isosorbide Mononitrate ER [Imdur] 60 mg PO BID 07/05/18 02/21/22 History calcitrioL [Calcitriol] 0.25 mcg PO MOTUWETHFR 07/05/18 02/21/22 History Pramipexole [Mirapex] 0.5 mg PO HS 05/02/19 02/21/22 History Ranolazine [Ranexa] 500 mg PO BID 05/02/19 02/21/22 History Propranolol [Inderal] 20 mg PO DAILY 07/28/20 02/21/22 History Dulaglutide [Trulicity] 1.5 mg SQ SA 05/23/21 02/21/22 History Albuterol Inhaler [Ventolin Hfa 2 puff INHALATION RT-Q4H PRN 08/10/21 02/21/22 History Inhaler] Fluticasone Propion/Salmeterol 1 puff INHALATION RT-BID 08/10/21 02/21/22 History [Wixela 100-50 Inhub] hydrALAZINE HCL [Apresoline] 10 mg PO BID 10/16/21 02/21/22 History Furosemide [Lasix] 40 mg PO DAILY 30 Days #30 tablet 10/20/21 02/21/22 Rx Aspirin EC [Ecotrin Low Dose] 81 mg PO DAILY 02/21/22 02/21/22 History Cholecalciferol [Vitamin D3 (25 25 mcg PO DAILY 02/21/22 02/21/22 History Mcg = 1000 Iu)] Escitalopram [Lexapro] 20 mg PO DAILY 02/21/22 02/21/22 History Glucagon Emergency Kit 1 mg IM ONCE PRN 02/21/22 02/21/22 History Ofloxacin 0.3% Ophth Soln [Ocuflox 10 drops RIGHT EYE DAILY 02/21/22 02/21/22 History Ophth Soln] Spironolactone-Hctz 25-25Mg 1 tab PO DAILY 02/21/22 02/21/22 History [Aldactazide 25-25 MG] Cefepime [Maxipime] 1 gm IVPB Q12H 10 Days #20 ml 02/24/22 Rx DAPTOmycin [Cubicin Rf] 500 mg IV Q48H 10 Days #5 each 02/24/22 Rx Allergies Allergy/AdvReac Type Severity Reaction Status Date / Time atorvastatin [From Lipitor] AdvReac Unknown Verified 02/21/22 14:12 baclofen AdvReac Unknown Verified 02/21/22 14:12 Physical Exam Vitals: Vital Signs Temp Pulse Pulse Resp BP BP BP 02/22/22 09:58 62 18 02/22/22 08:02 62 18 128/67 02/22/22 01:08 97.6 F 60 16 124/59 07/24/22 21:52 97.6 F 58 L 17 147/68 02/21/22 17:00 98.2 F 68 18 160/66 02/21/22 14:09 98.1 F 71 16 170/65 Pulse Ox 02/22/22 09:58 02/22/22 08:02 98 02/22/22 01:08 96 02/21/22 21:52 99 02/21/22 17:00 97 02/21/22 14:09 96 Intake and Output 02/21/22 02/22/22 02/22/22 22:59 06:59 14:59 Other: Voiding Method Toilet Toilet # Voids 2 Weight 104.326 kg GENERAL DESCRIPTION: Elderly male lying in bed, no distress. No tachypnea or accessory muscle of respiration use. HEENT: Shows Pallor , no scleral icterus. Oral mucous membrane is dry. No pharyngeal erythema or thrush, right ear did have significant swelling and redness no tenderness on the mastoid area NECK: Trachea central, no thyromegaly. LUNGS: Unlabored breathing. Clear to auscultation anteriorly. No wheeze or crackle. HEART: S1, S2, regular rate and rhythm. No loud murmur ABDOMEN: Soft, no tenderness , guarding or rigidity, no organomegaly EXTREMITIES: No edema of feet. SKIN: No rash, no masses palpable. NEUROLOGICAL: The patient is awake, alert, oriented x3, mood and affect normal. Results CBC & Chem 7: 02/24/22 05:54 02/24/22 05:54 Labs: Abnormal Lab Results - Last 24 Hours (Table) 02/21/22 02/21/22 02/22/22 Range/Units 14:58 14:58 05:46 WBC 2.71 L (4.50-10.00) X 10*3/uL RBC 4.24 L 4.09 L (4.30-5.90) m/uL Hgb 12.7 L 11.6 L (13.0-17.5) gm/dL Hct 37.8 L 36.4 L (39.0-53.0) % MCHC 31.9 L (32.0-37.0) g/dL Lymphocytes # 0.60 L (0.90-5.00) X 10*3/uL Monocytes # 0.09 L (0.20-1.00) X 10*3/uL Eosinophils # 0 L (0.04-0.35) X 10*3/uL ESR 90 H (0-15) mm/hr BUN 41 H (9-20) mg/dL Creatinine 2.91 H (0.66-1.25) mg/dL Est GFR (CKD-EPI)AfAm (60.0-200.0) Est GFR (CKD-EPI)NonAf (60.0-200.0) Glucose 184 H (74-99) mg/dL Calcium (8.7-10.3) mg/dL C-Reactive Protein 5.9 H (<1.0) mg/dL 02/22/22 Range/Units 05:46 WBC (4.50-10.00) X 10*3/uL RBC (4.30-5.90) m/uL Hgb (13.0-17.5) gm/dL Hct (39.0-53.0) % MCHC (32.0-37.0) g/dL Lymphocytes # (0.90-5.00) X 10*3/uL Monocytes # (0.20-1.00) X 10*3/uL Eosinophils # (0.04-0.35) X 10*3/uL ESR (0-15) mm/hr BUN 42.3 H (9-20) mg/dL Creatinine 3.0 H (0.66-1.25) mg/dL Est GFR (CKD-EPI)AfAm 23.3 L (60.0-200.0) Est GFR (CKD-EPI)NonAf 20.1 L (60.0-200.0) Glucose 199 H (74-99) mg/dL Calcium 8.5 L (8.7-10.3) mg/dL C-Reactive Protein (<1.0) mg/dL Assessment and Plan (1) Perichondritis of auricle Status: Acute Code(s): H61.009 - UNSPECIFIED PERICHONDRITIS OF EXTERNAL EAR, UNSPECIFIED EAR SNOMED Code(s): 95379974 Plan: 1patient presented to hospital with significant pain swelling redness of the right external ear concerning for the cellulitis and question of possible mastoiditis however the patient currently do not have any tenderness over the mastoid area tympanic membrane could not be examined because of the effusion keeping in mind patient being diabetic and not responding to the Omnicef will need to cover for the Pseudomonas and MRSA to the likely pathogen. 2renal insufficiency and high risk of nephrotoxicity from vancomycin. 3continue with Zosyn we will add daptomycin. We will follow on clinical condition and cultures to further adjust medication if needed Thank you for this consultation will follow this patient along with you Time with Patient: Greater than 30
[2022-02-23] MEDS: HEPARIN SODIUM,PORCINE/PF 5,000 UNIT/0.5 ML SYRINGE SQ SCH ×3 (00:06→15:13)
[2022-02-23] MEDS: PIPERACILLIN-TAZOBACTAM 3.375 GM in SODIUM CHLORIDE 0.9% 100 ML IVPB SCH ×3 (00:06→16:54)
[2022-02-23 06:48] LABS: Glucose,Whole Blood 209 mg/dL (70-110)
[2022-02-23] MEDS: SYMBICORT 80-4.5 MCG INHALER INHALATION SCH ×2 (07:24→19:54)
[2022-02-23 09:01] LABS: HCT 34.9 % (39.6-50.0); HGB 11.2 g/dL (13.0-17.0); MCH 28.5 pg (27.0-32.0); MCHC 32.1 g/dL (32.0-37.0); MCV 88.8 fL (80.0-97.0); Mean Platelet Volume 11.7 fL (9.5-12.2); NRBC Per 100 WBC 0 /100 WBCS (0.0-0.0); Platelet Count 192 X 10*3/uL (140-440); RBC 3.93 X 10*6/uL (4.40-5.60); RDW 12.8 % (11.5-14.5); WBC 4.76 X 10*3/uL (4.50-10.00)
[2022-02-23] MEDS: EZETIMIBE 10 MG TAB PO SCH (09:03)
[2022-02-23] MEDS: ASPIRIN 81 MG PO SCH (09:03)
[2022-02-23] MEDS: allopurinoL 100 MG TAB PO SCH (09:07)
[2022-02-23] MEDS: hydrALAZINE HCL 10 MG TAB PO SCH ×2 (09:08→20:20)
[2022-02-23] MEDS: RANOLAZINE 500 MG TAB.ER.12H PO SCH ×2 (09:08→20:20)
[2022-02-23] MEDS: PROPRANOLOL 20 MG TAB PO SCH (09:09)
[2022-02-23] MEDS: ESCITALOPRAM 20 MG TAB PO SCH (09:09)
[2022-02-23] MEDS: FUROSEMIDE 40 MG TAB PO SCH (09:09)
[2022-02-23] MEDS: LORATADINE 10 MG TAB PO SCH (09:09)
[2022-02-23] MEDS: SPIRONOLACTONE-HCTZ 25-25MG 1 EACH TAB PO SCH (09:09)
[2022-02-23] MEDS: ISOSORBIDE MONONITRATE ER 60 MG TAB.ER.24H PO SCH ×2 (09:11→20:20)
[2022-02-23] MEDS: CIPROFLOXACIN-DEXAMETH 0.3-0.1% DROPS 7.5 ML BTL RIGHT EAR SCH ×2 (09:11→20:20)
[2022-02-23 09:15] LABS: African American GFR (CKD) 23.9 (60.0-200.0); Anion Gap 10.9 mmol/L (10.00-18.00); BUN/Creat Ratio 15.14 Ratio (12.00-20.00); Blood Urea Nitrogen 43.9 mg/dL (9.0-27.0); Calcium 8.3 mg/dL (8.7-10.3); Carbon Dioxide 27.1 mmol/L (20.0-27.5); Non-African American GFR(CKD) 20.7 (60.0-200.0); Potassium 4.3 mmol/L (3.5-5.5)
--- NOTE | 2022-02-23 09:21 | P.PN ---
Subjective Patient was examined at bedside today not complaining of any new symptomatology. His ear is also improving less inflammation noted today with some crusting. Denies any other deficits. Patient's POC glucose was also checked with his insulin pump machine and currently at 196 after meal. Objective - Vital Signs Vital signs: Vital Signs Temp 97.8 F 02/23/22 08:00 Pulse 61 02/23/22 08:00 Resp 17 02/23/22 08:00 BP 130/53 02/23/22 08:00 Pulse Ox 98 02/23/22 08:00 FiO2 Intake & Output 02/22/22 02/23/22 02/23/22 18:59 06:59 18:59 Intake Total 150 Balance 150 Intake: Intake, IV Titration 150 Amount DAPTOmycin 500 mg In 50 Sodium Chloride 0.9% 50 ml @ 100 mls/hr IVPB Q48H [facility] Rx#:[id number] Piperacillin-Tazobactam 3 100 .375 gm In Sodium Chloride 0.9% 100 ml @ 25 mls/hr IVPB Q8HR [facility] Rx# :[id number] Other: Voiding Method Toilet Toilet # Voids 3 - Exam Gen. patient is awake alert oriented 3 Ear swollen with no visible drainage noted, less inflammation noted compared to yesterday, some crusting noted improving Heart normal S1/S2 no murmurs Respiratory no wheezing or rhonchi Extremity no pitting edema noted - Labs CBC & Chem 7: 02/23/22 06:10 02/23/22 06:10 Labs: Abnormal Lab Results - Last 24 Hours (Table) 02/22/22 02/22/22 02/22/22 Range/Units 05:46 11:46 16:46 RBC (4.40-5.60) X 10*6/uL Hgb (13.0-17.0) g/dL Hct (39.6-50.0) % BUN 42.3 H (9.0-27.0) mg/dL Creatinine 3.0 H (0.6-1.5) mg/dL Est GFR (CKD-EPI)AfAm 23.3 L (60.0-200.0) Est GFR (CKD-EPI)NonAf 20.1 L (60.0-200.0) Glucose 199 H (70-110) mg/dL POC Glucose (mg/dL) 302 H 189 H (70-110) mg/dL Calcium 8.5 L (8.7-10.3) mg/dL 02/23/22 02/23/22 02/23/22 Range/Units 06:10 06:10 06:46 RBC 3.93 L (4.40-5.60) X 10*6/uL Hgb 11.2 L (13.0-17.0) g/dL Hct 34.9 L (39.6-50.0) % BUN 43.9 H (9.0-27.0) mg/dL Creatinine 2.9 H (0.6-1.5) mg/dL Est GFR (CKD-EPI)AfAm 23.9 L (60.0-200.0) Est GFR (CKD-EPI)NonAf 20.7 L (60.0-200.0) Glucose 180 H (70-110) mg/dL POC Glucose (mg/dL) 209 H (70-110) mg/dL Calcium 8.3 L (8.7-10.3) mg/dL Microbiology - Last 24 Hours (Table) 02/21/22 15:15 Blood Culture - Preliminary Blood No Growth after 24 hours 02/21/22 15:00 Blood Culture - Preliminary Blood No Growth after 24 hours Assessment and Plan Assessment: Assessment: #1.Otomastoididits #2 essential hypertension #3 diabetes mellitus on insulin pump #4 coronary artery disease Plan: -Admitted to internal medicine -Aspiration/fall precaution -Patient has been started on ciprofloxacin/dexamethasone eardrops -Patient has been started on IV dapto and Zosyn per ID -ENT consultation -Bedside POC glucose check with patient's machine 196 -Continue to monitor closely. -Resume home medication -DVT to prophylaxis.
[2022-02-23 11:25] LABS: Glucose,Whole Blood 118 mg/dL (70-110)
--- NOTE | 2022-02-23 14:45 | CDI ---
Documentation Clarification Form Date: 02/23/2022 02:36:02 PM From: Chiquita Ashley Admit Date: 02/21/2022 05:53:00 PM Patient Name: Phan Luciano Visit Number: [id number] Discharge Date: ATTENTION: The Clinical Documentation Specialists (CDI) and [facility] Coding Staff appreciate your assistance in clarifying documentation. Please respond to the clarification below the line at the bottom and electronically sign. The CDI & [facility] Coding staff will review the response and follow-up if needed. Please note: Queries are made part of the Legal Health Record. If you have any questions, please contact the author of this message via ITS. Dr. Nicola Elder Your patient has the documented diagnosis of unspecified Heart Failure 02/21 , H&P. Additional information regarding the type, acuity of CHF is requested. History/Risk Factors: 71-year-old male presents to the ED with worsening right ear infection and swelling. Medical history Heart Failure, CAD, CKD4 and DM, 02/21, H&P Clinical Indicators: VS/Pulse OX: 02/21 B/P 170/65; HR 71; Temp 98.1; RR 16; SpO2 96% ra Echocardiogram Results:10/17/21 EF 50-55% Moderate concentric left ventricular hypertrophy. moderate aortic valve sclerosis mild tricuspid regurgitation Treatment: 02/22 Lasix 40mg PO Daily; 02/21 Hctz/Spironolactone 25/25mg 1 each PO daily; 02/21 Imdur 60mg PO BID; In your professional opinion, can you please clarify the [acuity and type] of CHF if known? [ 1 ] Chronic Diastolic Heart Failure (preserved EF) [ ] Other, please specify [ ] Unable to determine (Template Last Revised: September 2020) MTDD
[2022-02-23 16:30] LABS: Glucose,Whole Blood 139 mg/dL (70-110)
[2022-02-23] MEDS: Insulin Aspart (For Pump) 100 UNIT/ML VIAL SQ-PUMP SCH (16:55)
[2022-02-23] MEDS: PRAMIPEXOLE 0.5 MG TAB PO SCH (20:20)
[2022-02-23] MEDS: NON FORMULARY DRUG (Rosuvastatin Calcium [Crestor] 40 MG Tablet) PO SCH (20:21)
[2022-02-23 21:07] LABS: Glucose,Whole Blood 76 mg/dL (70-110)
--- NOTE | 2022-02-23 23:14 | P.PN ---
Subjective Progress Note Date: 02/23/22 Principal diagnosis: Right ear infection Patient is a 71 year old male presenting to the hospital with right external ear swelling redness and pain which was preceded by drainage from his right ear concerning for otitis externa with an abnormal CT suspicious for mastoiditis. On today's evaluation is 02/23/2022, the patient is afebrile, the patient pain to the right ear has decreased in intensity patient denies having any drainage from the right ear, the patient denies having any chest pain shortness of breath or cough no abdominal pain no diarrhea Objective - Vital Signs Vital signs: Vital Signs Temp 97.8 F 02/23/22 09:21 Pulse 61 02/23/22 09:21 Resp 17 02/23/22 09:21 BP 130/53 02/23/22 09:21 Pulse Ox 98 02/23/22 08:00 FiO2 Intake & Output 02/22/22 02/23/22 02/23/22 18:59 06:59 18:59 Intake Total 150 Balance 150 Intake: Intake, IV Titration 150 Amount DAPTOmycin 500 mg In 50 Sodium Chloride 0.9% 50 ml @ 100 mls/hr IVPB Q48H [facility] Rx#:[id number] Piperacillin-Tazobactam 3 100 .375 gm In Sodium Chloride 0.9% 100 ml @ 25 mls/hr IVPB Q8HR [facility] Rx# :[id number] Other: Voiding Method Toilet Toilet # Voids 3 - Exam GENERAL DESCRIPTION: An elderly male lying in bed in no distress HEENT: Right ear swelling redness slightly decrease no mastoid tenderness no drainage RESPIRATORY SYSTEM: Unlabored breathing , decreased breath sounds at bases HEART: S1 S2 regular rate and rhythm , ABDOMEN: Soft , no tenderness EXTREMITIES: No edema feet - Labs CBC & Chem 7: 02/23/22 06:10 02/23/22 06:10 Labs: Abnormal Lab Results - Last 24 Hours (Table) 02/22/22 02/23/22 02/23/22 Range/Units 16:46 06:10 06:10 RBC 3.93 L (4.40-5.60) X 10*6/uL Hgb 11.2 L (13.0-17.0) g/dL Hct 34.9 L (39.6-50.0) % BUN 43.9 H (9.0-27.0) mg/dL Creatinine 2.9 H (0.6-1.5) mg/dL Est GFR (CKD-EPI)AfAm 23.9 L (60.0-200.0) Est GFR (CKD-EPI)NonAf 20.7 L (60.0-200.0) Glucose 180 H (70-110) mg/dL POC Glucose (mg/dL) 189 H (70-110) mg/dL Calcium 8.3 L (8.7-10.3) mg/dL 02/23/22 02/23/22 Range/Units 06:46 11:24 RBC (4.40-5.60) X 10*6/uL Hgb (13.0-17.0) g/dL Hct (39.6-50.0) % BUN (9.0-27.0) mg/dL Creatinine (0.6-1.5) mg/dL Est GFR (CKD-EPI)AfAm (60.0-200.0) Est GFR (CKD-EPI)NonAf (60.0-200.0) Glucose (70-110) mg/dL POC Glucose (mg/dL) 209 H 118 H (70-110) mg/dL Calcium (8.7-10.3) mg/dL Microbiology - Last 24 Hours (Table) 02/21/22 15:15 Blood Culture - Preliminary Blood No Growth after 24 hours 02/21/22 15:00 Blood Culture - Preliminary Blood No Growth after 24 hours Assessment and Plan (1) Otitis externa Current Visit: Yes Status: Acute Code(s): H60.90 - UNSPECIFIED OTITIS EXTERNA, UNSPECIFIED EAR SNOMED Code(s): 9928680 Plan: 1patient presented to hospital with significant pain swelling redness of the right external ear concerning for the cellulitis and question of possible mastoiditis however the patient currently do not have any tenderness over the mastoid area tympanic membrane could not be examined because of the effusion keeping in mind patient being diabetic and not responding to the Omnicef will need to cover for the Pseudomonas and MRSA to the likely pathogen. 2renal insufficiency and high risk of nephrotoxicity from vancomycin. 3patient to continue with Zosyn and daptomycin for another 24-48 hour before transitioning to oral antibiotics and continue supportive care Time with Patient: Less than 30
[2022-02-24] MEDS: PIPERACILLIN-TAZOBACTAM 3.375 GM in SODIUM CHLORIDE 0.9% 100 ML IVPB SCH ×3 (00:10→13:44)
[2022-02-24] MEDS: HEPARIN SODIUM,PORCINE/PF 5,000 UNIT/0.5 ML SYRINGE SQ SCH ×3 (00:10→15:04)
[2022-02-24 06:58] LABS: Glucose,Whole Blood 168 mg/dL (70-110)
[2022-02-24 07:02] LABS: African American GFR (CKD) 25 (>60 ml/min/1.73 sqM); Non-African American GFR(CKD) 22 (>60 ml/min/1.73 sqM)
[2022-02-24] MEDS: EZETIMIBE 10 MG TAB PO SCH (07:19)
[2022-02-24] MEDS: FUROSEMIDE 40 MG TAB PO SCH (07:19)
[2022-02-24] MEDS: LORATADINE 10 MG TAB PO SCH (07:19)
[2022-02-24] MEDS: ASPIRIN 81 MG PO SCH (07:19)
[2022-02-24] MEDS: ESCITALOPRAM 20 MG TAB PO SCH (07:19)
[2022-02-24] MEDS: allopurinoL 100 MG TAB PO SCH (07:19)
[2022-02-24] MEDS: hydrALAZINE HCL 10 MG TAB PO SCH (07:19)
[2022-02-24] MEDS: ISOSORBIDE MONONITRATE ER 60 MG TAB.ER.24H PO SCH (07:19)
[2022-02-24] MEDS: PROPRANOLOL 20 MG TAB PO SCH (07:20)
[2022-02-24] MEDS: CIPROFLOXACIN-DEXAMETH 0.3-0.1% DROPS 7.5 ML BTL RIGHT EAR SCH (07:20)
[2022-02-24] MEDS: SPIRONOLACTONE-HCTZ 25-25MG 1 EACH TAB PO SCH (07:20)
[2022-02-24] MEDS: RANOLAZINE 500 MG TAB.ER.12H PO SCH (07:20)
[2022-02-24 07:23] LABS: Anion Gap 9 mmol/L; Blood Urea Nitrogen 45 mg/dL (9-20); Carbon Dioxide 24 mmol/L (22-30); Chloride 103 mmol/L (98-107); Glucose 153 mg/dL (74-99); Potassium 4.6 mmol/L (3.5-5.1); Sodium 136 mmol/L (137-145)
[2022-02-24 07:52] VITALS: RESP 17
[2022-02-24] MEDS: SYMBICORT 80-4.5 MCG INHALER INHALATION SCH (08:40)
[2022-02-24 09:36] LABS: HCT 36.6 % (39.6-50.0); MCHC 32.8 g/dL (32.0-37.0); MCV 88.4 fL (80.0-97.0); Mean Platelet Volume 11.2 fL (9.5-12.2); NRBC Per 100 WBC 0 /100 WBCS (0.0-0.0); Platelet Count 191 X 10*3/uL (140-440); RBC 4.14 X 10*6/uL (4.40-5.60); WBC 4.34 X 10*3/uL (4.50-10.00)
[2022-02-24 11:25] LABS: Glucose,Whole Blood 284 mg/dL (70-110)
[2022-02-24] MEDS: DAPTOmycin 500 MG in SODIUM CHLORIDE 0.9% 50 ML IVPB SCH (13:01)
[2022-02-24 13:40] VITALS: BP 141/76; PULSE 62; TEMP 97.8
--- NOTE | 2022-02-24 14:09 | P.PN ---
Subjective Patient was examined at bedside today not complaining of any new symptoms otology. The right ear is decreasing in inflammation, redness and crusting appropriately. He denies any worsening hearing loss or any drainage noted from the ear. Objective - Vital Signs Vital signs: Vital Signs Temp 97.8 F 02/24/22 13:37 Pulse 62 02/24/22 13:37 Resp 17 02/24/22 13:37 BP 141/76 02/24/22 13:37 Pulse Ox 99 02/24/22 13:37 FiO2 Intake & Output 02/23/22 02/24/22 02/24/22 18:59 06:59 18:59 Intake Total 100 236 150 Balance 100 236 150 Intake: Intake, IV Titration 100 150 Amount DAPTOmycin 500 mg In 50 Sodium Chloride 0.9% 50 ml @ 100 mls/hr IVPB Q48H [facility] Rx#:[id number] Piperacillin-Tazobactam 3 100 100 .375 gm In Sodium Chloride 0.9% 100 ml @ 25 mls/hr IVPB Q8HR [facility] Rx# :[id number] Oral 236 Other: Voiding Method Toilet - Exam Gen. patient is awake alert oriented 3 Ear swollen with no visible drainage noted, less inflammation noted compared to yesterday, some crusting noted improving continues to improve today Heart normal S1/S2 no murmurs Respiratory no wheezing or rhonchi Extremity no pitting edema noted - Labs CBC & Chem 7: 02/24/22 05:54 02/24/22 05:54 Labs: Abnormal Lab Results - Last 24 Hours (Table) 02/23/22 02/24/22 02/24/22 Range/Units 16:29 05:54 05:54 WBC 4.34 L (4.50-10.00) X 10*3/uL RBC 4.14 L (4.40-5.60) X 10*6/uL Hgb 12.0 L (13.0-17.0) g/dL Hct 36.6 L (39.6-50.0) % Sodium 136 L (137-145) mmol/L BUN 45 H (9-20) mg/dL Creatinine 2.80 H (0.66-1.25) mg/dL Glucose 153 H (74-99) mg/dL POC Glucose (mg/dL) 139 H (70-110) mg/dL Calcium 8.0 L (8.4-10.2) mg/dL 02/24/22 02/24/22 Range/Units 06:56 11:24 WBC (4.50-10.00) X 10*3/uL RBC (4.40-5.60) X 10*6/uL Hgb (13.0-17.0) g/dL Hct (39.6-50.0) % Sodium (137-145) mmol/L BUN (9-20) mg/dL Creatinine (0.66-1.25) mg/dL Glucose (74-99) mg/dL POC Glucose (mg/dL) 168 H 284 H (70-110) mg/dL Calcium (8.4-10.2) mg/dL Microbiology - Last 24 Hours (Table) 02/21/22 15:15 Blood Culture - Preliminary Blood No Growth after 48 hours 02/21/22 15:00 Blood Culture - Preliminary Blood No Growth after 48 hours Assessment and Plan Assessment: Assessment: #1.Otomastoididits #2 essential hypertension #3 diabetes mellitus on insulin pump #4 coronary artery disease Plan: -Admitted to internal medicine -Aspiration/fall precaution -Patient has been started on ciprofloxacin/dexamethasone eardrops -Patient has been started on IV dapto and Zosyn per ID -Spoke with infectious disease like to place a midline for long-term IV antibiotics. -Bedside POC glucose check with patient's machine 196 -Continue to monitor closely. -Resume home medication -DVT to prophylaxis.
[2022-02-24 14:35] LABS: Basophils # (M) 0.04 X 10*3/uL (0.00-0.10); Elliptocytes 2+; Eosinophils # (M) 0.09 X 10*3/uL (0.04-0.35); Lymphocytes # (M) 1.43 X 10*3/uL (0.90-5.00); Monocytes # (M) 0.48 X 10*3/uL (0.20-1.00); Neutrophils % (M) 53 %
[2022-02-24] MEDS ORDERED: CEFEPIME 2 GM in SODIUM CHLORIDE 0.9% 100 ML IVPB STA (14:40)
--- NOTE | 2022-02-24 16:21 | P.DS ---
Providers Date of admission: 02/21/22 17:53 Attending physician: Christelle Barroso DO Consults: 02/21/22 17:53 Consult Physician Routine Consulting Provider: Ke Cabrera Consult Reason/Comments: mastoiditis, auricular perichondritis, otitis externa Do you want consulting provider notified?: Already Contacted Consult Physician Routine Consulting Provider: Yareli Casanova Consult Reason/Comments: mastoiditis, auricular perichondritis, otitis externa Do you want consulting provider notified?: Yes, Notify in am Primary care physician: Marlon Valentino MD Hospital Course: 71 year old male with uncontrolled DM on a diabetic pump, uncontrolled hypertension , CAD s/p stents, CKD4 comes in due to worsening right ear infection and swelling, started 1.5 weeks ago when he noticed some clear drainage of his right ear, no bleeding , no injuries , then few days later, he started noticed foul smell, and swelling of the ear, he was diagnosed with ear infection and was started on ear drops and antibiotics 3-4 days ago, with not much improvement, he continues to have chills, and progressive swelling of his ear, no changes in hearing. denies any fever, cough, URI symptoms, chest pain , SOB, abd pain , nausea or vomiting. CT of the head and neck showed ostomastoiditis patient initiated on ABx , and given one time dose of steroids Patient was evaluated by infectious disease. Patient was probably started on IV Zosyn and daptomycin given the patient is a diabetic there was concern for MRSA and pseudomonas coverage. The patient's ear infection did resolve over the course of the hospital stay. I did communicate with infectious disease he will like to send and arrange for IV antibiotics at home. Antibiotics have been set up as per infectious disease. This has been coordinate with case management and RN and the patient. At this time the patient's ear is very less erythematous compared a day of admission, less tender and is crusting therefore improving. Vital signs are stable patient is asked to follow-up with primary care doctor and PCP and infectious disease doctor within 1 week of discharge. Patient is okay be discharged from internal medicine as well as infectious disease team. Patient Condition at Discharge: Stable Plan - Discharge Summary Discharge Rx Participant: No New Discharge Prescriptions: New DAPTOmycin [Cubicin Rf] 500 mg IV Q48H 10 Days #5 each Cefepime [Maxipime] 1 gm IVPB Q12H 10 Days #20 ml Continue Rosuvastatin Calcium [Crestor] 40 mg PO HS Cetirizine HCl 10 mg PO DAILY Nitroglycerin Sl Tabs [Nitrostat] 0.4 mg SL Q5M PRN PRN Reason: Chest Pain Ezetimibe [Zetia] 10 mg PO DAILY Ferrous Sulfate [Iron (65 MG Elemental)] 325 mg PO DAILY Febuxostat [Uloric] 40 mg PO DAILY Vitamin B Complex 1 cap PO DAILY Ergocalciferol (Vitamin D2) [Vitamin D2] 50,000 unit PO Q14D Insulin Aspart (For Pump) [NovoLOG (For Pump)] 0.01 unit SQ-PUMP CONTINUOUS calcitrioL [Calcitriol] 0.25 mcg PO MOTUWETHFR Isosorbide Mononitrate ER [Imdur] 60 mg PO BID Pramipexole [Mirapex] 0.5 mg PO HS Ranolazine [Ranexa] 500 mg PO BID Propranolol [Inderal] 20 mg PO DAILY Albuterol Inhaler [Ventolin Hfa Inhaler] 2 puff INHALATION RT-Q4H PRN PRN Reason: Shortness Of Breath Fluticasone Propion/Salmeterol [Wixela 100-50 Inhub] 1 puff INHALATION RT-BID Furosemide [Lasix] 40 mg PO DAILY 30 Days #30 tablet Glucagon Emergency Kit 1 mg IM ONCE PRN PRN Reason: Hypoglycemia Ofloxacin 0.3% Ophth Soln [Ocuflox Ophth Soln] 10 drops RIGHT EYE DAILY Cholecalciferol [Vitamin D3 (25 Mcg = 1000 Iu)] 25 mcg PO DAILY Escitalopram [Lexapro] 20 mg PO DAILY Spironolactone-Hctz 25-25Mg [Aldactazide 25-25 MG] 1 tab PO DAILY Dulaglutide [Trulicity] 1.5 mg SQ SA hydrALAZINE HCL [Apresoline] 10 mg PO BID Aspirin EC [Ecotrin Low Dose] 81 mg PO DAILY Discontinued Cefdinir [Omnicef] 300 mg PO DAILY Discharge Medication List Cetirizine HCl 10 mg PO DAILY 03/03/14 [History] Nitroglycerin Sl Tabs [Nitrostat] 0.4 mg SL Q5M PRN 08/03/14 [History] Rosuvastatin Calcium [Crestor] 40 mg PO HS 03/03/14 [History] Ezetimibe [Zetia] 10 mg PO DAILY 05/19/16 [History] Ferrous Sulfate [Iron (65 MG Elemental)] 325 mg PO DAILY 05/19/16 [History] Ergocalciferol (Vitamin D2) [Vitamin D2] 50,000 unit PO Q14D 05/28/18 [History] Febuxostat [Uloric] 40 mg PO DAILY 05/28/18 [History] Insulin Aspart (For Pump) [NovoLOG (For Pump)] 0.01 unit SQ-PUMP CONTINUOUS 05/28/18 [History] Vitamin B Complex 1 cap PO DAILY 05/28/18 [History] Isosorbide Mononitrate ER [Imdur] 60 mg PO BID 07/05/18 [History] calcitrioL [Calcitriol] 0.25 mcg PO MOTUWETHFR 07/05/18 [History] Pramipexole [Mirapex] 0.5 mg PO HS 05/02/19 [History] Ranolazine [Ranexa] 500 mg PO BID 05/02/19 [History] Propranolol [Inderal] 20 mg PO DAILY 07/28/20 [History] Dulaglutide [Trulicity] 1.5 mg SQ SA 05/23/21 [History] Albuterol Inhaler [Ventolin Hfa Inhaler] 2 puff INHALATION RT-Q4H PRN 08/10/21 [History] Fluticasone Propion/Salmeterol [Wixela 100-50 Inhub] 1 puff INHALATION RT-BID 08/10/21 [History] hydrALAZINE HCL [Apresoline] 10 mg PO BID 10/16/21 [History] Furosemide [Lasix] 40 mg PO DAILY 30 Days #30 tablet 10/20/21 [Rx] Aspirin EC [Ecotrin Low Dose] 81 mg PO DAILY 02/21/22 [History] Cholecalciferol [Vitamin D3 (25 Mcg = 1000 Iu)] 25 mcg PO DAILY 02/21/22 [History] Escitalopram [Lexapro] 20 mg PO DAILY 02/21/22 [History] Glucagon Emergency Kit 1 mg IM ONCE PRN 02/21/22 [History] Ofloxacin 0.3% Ophth Soln [Ocuflox Ophth Soln] 10 drops RIGHT EYE DAILY 02/21/22 [History] Spironolactone-Hctz 25-25Mg [Aldactazide 25-25 MG] 1 tab PO DAILY 02/21/22 [History] Cefepime [Maxipime] 1 gm IVPB Q12H 10 Days #20 ml 02/24/22 [Rx] DAPTOmycin [Cubicin Rf] 500 mg IV Q48H 10 Days #5 each 02/24/22 [Rx] Follow up Appointment(s)/Referral(s): Marlon Valentino MD [Primary Care Provider] - 1-2 days [facility] [NON-STAFF] - As Needed ([facility] will deliver outpatient IV antibiotic supplies to your house by tomorrow morning. They will call before coming. ) Andrzej Monroe Senior [NON-STAFF] - [facility] Needed ([facility] to set up the time for your first appointment for 02/25/22 to begin outpatient IV antibiotic teaching. ) Yareli Casanova MD [STAFF PHYSICIAN] - 1 Week Patient Instructions/Handouts: Ear Infection (GEN) Discharge Disposition: HOME WITH HOME HEALTH SERVICES
[2022-02-24 16:29] LABS: Glucose,Whole Blood 95 mg/dL (70-110)
[2022-02-27] MEDS ORDERED: Dulaglutide [Trulicity] 1.5 MG/0.5 ML SQ SCH (09:00)
--- NOTE | 2022-03-03 23:10 | P.PN ---
Subjective Progress Note Date: 02/24/22 Principal diagnosis: Right ear infection Patient is a 71 year old male presenting to the hospital with right external ear swelling redness and pain which was preceded by drainage from his right ear concerning for otitis externa with an abnormal CT suspicious for mastoiditis. On today's evaluation is 02/24/2022, the patient remains to be afebrile, the patient pain as well as swelling to the right ear has decreased in intensity patient denies having any drainage from the right ear, the patient denies having any chest pain shortness of breath or cough no abdominal pain no diarrhea Objective - Vital Signs Vital signs: Vital Signs Temp 96.4 F L 02/24/22 07:51 Pulse 68 02/24/22 07:51 Resp 17 02/24/22 07:51 BP 124/65 02/24/22 07:51 Pulse Ox 98 02/24/22 07:51 FiO2 Intake & Output 02/23/22 02/24/22 02/24/22 18:59 06:59 18:59 Intake Total 100 236 150 Balance 100 236 150 Intake: Intake, IV Titration 100 150 Amount DAPTOmycin 500 mg In 50 Sodium Chloride 0.9% 50 ml @ 100 mls/hr IVPB Q48H [facility] Rx#:[id number] Piperacillin-Tazobactam 3 100 100 .375 gm In Sodium Chloride 0.9% 100 ml @ 25 mls/hr IVPB Q8HR JOEY Rx# :[id number] Oral 236 Other: Voiding Method Toilet - Exam GENERAL DESCRIPTION: An elderly male lying in bed in no distress HEENT: Right ear swelling redness slightly decrease no mastoid tenderness no drainage RESPIRATORY SYSTEM: Unlabored breathing , decreased breath sounds at bases HEART: S1 S2 regular rate and rhythm , ABDOMEN: Soft , no tenderness EXTREMITIES: No edema feet - Labs CBC & Chem 7: 02/24/22 05:54 02/24/22 05:54 Labs: Abnormal Lab Results - Last 24 Hours (Table) 02/23/22 02/23/22 02/24/22 Range/Units 11:24 16:29 05:54 WBC (4.50-10.00) X 10*3/uL RBC (4.40-5.60) X 10*6/uL Hgb (13.0-17.0) g/dL Hct (39.6-50.0) % Sodium 136 L (137-145) mmol/L BUN 45 H (9-20) mg/dL Creatinine 2.80 H (0.66-1.25) mg/dL Glucose 153 H (74-99) mg/dL POC Glucose (mg/dL) 118 H 139 H (70-110) mg/dL Calcium 8.0 L (8.4-10.2) mg/dL 02/24/22 02/24/22 Range/Units 05:54 06:56 WBC 4.34 L (4.50-10.00) X 10*3/uL RBC 4.14 L (4.40-5.60) X 10*6/uL Hgb 12.0 L (13.0-17.0) g/dL Hct 36.6 L (39.6-50.0) % Sodium (137-145) mmol/L BUN (9-20) mg/dL Creatinine (0.66-1.25) mg/dL Glucose (74-99) mg/dL POC Glucose (mg/dL) 168 H (70-110) mg/dL Calcium (8.4-10.2) mg/dL Microbiology - Last 24 Hours (Table) 02/21/22 15:15 Blood Culture - Preliminary Blood No Growth after 48 hours 02/21/22 15:00 Blood Culture - Preliminary Blood No Growth after 48 hours Assessment and Plan (1) Otitis externa Status: Acute Code(s): H60.90 - UNSPECIFIED OTITIS EXTERNA, UNSPECIFIED EAR SNOMED Code(s): 5028410 Plan: 1patient presented to hospital with significant pain swelling redness of the right external ear concerning for the cellulitis and question of possible mastoiditis however the patient currently do not have any tenderness over the mastoid area tympanic membrane could not be examined because of the effusion keeping in mind patient being diabetic and not responding to the Omnicef will need to cover for the Pseudomonas and MRSA to the likely pathogen. 2renal insufficiency and high risk of nephrotoxicity from vancomycin. 3patient has shown clinical improvement with Zosyn and daptomycin , unfortunately been unable to use over to Cipro because of drug interaction with his other medication has recommending a midline and a 10 day course of IV cefepime and daptomycin this has been discussed in detail with the admitting physician as well as the case planner and the close outpatient follow-up Time with Patient: Less than 30
== END 2022-02-24 17:21 | disposition home health service (06) ==
LOC: EC 14:08 → 4SSUR 17:53 → INTOOBSV 17:53 → UNDODISIN 02-24 17:21
PROVIDERS: ADMIT Internal Medicine; ATTEND Internal Medicine
DX: H60.11 Cellulitis of right external ear (principal); I13.0 Hypertensive heart and chronic kidney disease with heart failure and stage 1 through stage 4 chronic kidney disease, or unspecified chronic kidney disease; N18.4 Chronic kidney disease, stage 4 (severe); I50.32 Chronic diastolic (congestive) heart failure; H61.001 Unspecified perichondritis of right external ear; H70.91 Unspecified mastoiditis, right ear; E11.22 Type 2 diabetes mellitus with diabetic chronic kidney disease; I25.10 Atherosclerotic heart disease of native coronary artery without angina pectoris; E78.5 Hyperlipidemia, unspecified; F41.9 Anxiety disorder, unspecified; I25.2 Old myocardial infarction; G47.33 Obstructive sleep apnea (adult) (pediatric); G25.81 Restless legs syndrome; D63.1 Anemia in chronic kidney disease; Z95.5 Presence of coronary angioplasty implant and graft; Z96.41 Presence of insulin pump (external) (internal); Z87.891 Personal history of nicotine dependence; Z79.82 Long term (current) use of aspirin; Z79.899 Other long term (current) drug therapy; Z83.3 Family history of diabetes mellitus
CPT/HCPCS: 96365; 96366 ×3; 96367; 96372 ×2; 96376; 96375; 99284; 36415; 36410; 76937; 80048 ×4; 85652; 83605; 83735; 85025 ×3; 85027; 86140; 87040; 70486; 70450; G0378 ×4; C1751; J2543 ×4; J3370 ×2; J2270 ×2; J1100; J0692; J0878 ×2; J1644 ×3; 99285

== ENCOUNTER 2022-04-28 17:24 | Observation (INO) | payer MEDICARE ==
--- NOTE | 2022-04-28 18:50 | XR ---
EXAMINATION TYPE: XR chest 2V DATE OF EXAM: 04/28/2022 COMPARISON: 10/16/2021 HISTORY: Chest pain TECHNIQUE: 2 views FINDINGS: Heart is normal. Lungs are clear of infiltrate. No heart failure. There are no hilar masses . There is minor spurring in the thoracic spine. IMPRESSION: No active cardiopulmonary disease. Normal heart No change.
[2022-04-28 21:15] LABS: HCT 39.3 % (39.0-53.0); HGB 13.4 gm/dL (13.0-17.5); MCH 29.7 pg (25.0-35.0); MCV 87.3 fL (80.0-100.0); Mean Platelet Volume 8.2; Platelet Count 234 k/uL (150-450); RDW 13.6 % (11.5-15.5); WBC 4.1 k/uL (3.8-10.6)
[2022-04-28 21:17] LABS: Albumin 4.3 g/dL (3.5-5.0); Calcium 9.3 mg/dL (8.4-10.2); Magnesium 2.1 mg/dL (1.6-2.3); Potassium 4.9 mmol/L (3.5-5.1); Total Bilirubin 0.4 mg/dL (0.2-1.3); Total Protein 8.2 g/dL (6.3-8.2)
[2022-04-28 21:28] LABS: Basophils # (M) 0.04 k/uL (0-0.2); Eosinophils # (M) 0.12 k/uL (0-0.7); Lymphocytes # (M) 1.68 k/uL (1.0-4.8); Monocytes # (M) 0.29 k/uL (0-1.0); Neutrophils # (M) 1.97 k/uL (1.3-7.7); Neutrophils % (M) 48 %; Nucleated Red Blood Cells 0 /100 WBC (0-0); Total Cells Counted 100
[2022-04-28 21:29] LABS: Reactive Lymphocytes Present
--- NOTE | 2022-04-28 23:09 | ED ---
Chest Pain HPI - General Chief Complaint: Chest Pain Stated Complaint: Chest pain,abd pain Time Seen by Provider: 04/28/22 20:56 Source: patient Mode of arrival: ambulatory Limitations: no limitations - History of Present Illness Initial Comments: Patient is a 71-year-old male presenting with chief complaint of lower extremity swelling and chest pain. Patient describes the chest pain is centralized, "a discomfort", with no radiation. Patient states that he has had lower extremity swelling for the last 2 weeks, he has a history of heart failure and takes Lasix 40 mg daily. States that this lower extremity swelling has made it difficult to ambulate, as he feels like his legs are being weighed down and he has a stiffness in the bilateral ankles. Denies any shortness of breath, nausea, vomiting, fever, chills, palpitations, numbness, tingling, abdominal pain, URI- like symptoms. - Related Data Home Medications Medication Instructions Recorded Confirmed Cetirizine HCl 10 mg PO DAILY 03/03/14 02/21/22 Nitroglycerin Sl Tabs [Nitrostat] 0.4 mg SL Q5M PRN 03/03/14 02/21/22 Rosuvastatin Calcium [Crestor] 40 mg PO HS 03/03/14 02/21/22 Ezetimibe [Zetia] 10 mg PO DAILY 05/19/16 02/21/22 Ferrous Sulfate [Iron (65 MG 325 mg PO DAILY 05/19/16 02/21/22 Elemental)] Ergocalciferol (Vitamin D2) 50,000 unit PO Q14D 05/28/18 02/21/22 [Vitamin D2] Febuxostat [Uloric] 40 mg PO DAILY 05/28/18 02/21/22 Insulin Aspart (For Pump) [NovoLOG 0.01 unit SQ-PUMP CONTINUOUS 05/28/18 02/21/22 (For Pump)] Vitamin B Complex 1 cap PO DAILY 05/28/18 02/21/22 Isosorbide Mononitrate ER [Imdur] 60 mg PO BID 07/05/18 02/21/22 calcitrioL [Calcitriol] 0.25 mcg PO MOTUWETHFR 07/05/18 02/21/22 Pramipexole [Mirapex] 0.5 mg PO HS 05/02/19 02/21/22 Ranolazine [Ranexa] 500 mg PO BID 05/02/19 02/21/22 Propranolol [Inderal] 20 mg PO DAILY 07/28/20 02/21/22 Dulaglutide [Trulicity] 1.5 mg SQ SA 05/23/21 02/21/22 Albuterol Inhaler [Ventolin Hfa 2 puff INHALATION RT-Q4H PRN 08/10/21 02/21/22 Inhaler] Fluticasone Propion/Salmeterol 1 puff INHALATION RT-BID 08/10/21 02/21/22 [Wixela 100-50 Inhub] hydrALAZINE HCL [Apresoline] 10 mg PO BID 10/16/21 02/21/22 Aspirin EC [Ecotrin Low Dose] 81 mg PO DAILY 02/21/22 02/21/22 Cholecalciferol [Vitamin D3 (25 25 mcg PO DAILY 02/21/22 02/21/22 Mcg = 1000 Iu)] Escitalopram [Lexapro] 20 mg PO DAILY 02/21/22 02/21/22 Glucagon Emergency Kit 1 mg IM ONCE PRN 02/21/22 02/21/22 Ofloxacin 0.3% Ophth Soln [Ocuflox 10 drops RIGHT EYE DAILY 02/21/22 02/21/22 Ophth Soln] Spironolactone-Hctz 25-25Mg 1 tab PO DAILY 02/21/22 02/21/22 [Aldactazide 25-25 MG] Previous Rx's Medication Instructions Recorded Furosemide [Lasix] 40 mg PO DAILY 30 Days #30 tablet 10/20/21 Cefepime [Maxipime] 1 gm IVPB Q12H 10 Days #20 ml 02/24/22 DAPTOmycin [Cubicin Rf] 500 mg IV Q48H 10 Days #5 each 02/24/22 Allergies Allergy/AdvReac Type Severity Reaction Status Date / Time atorvastatin [From Lipitor] AdvReac Unknown Verified 04/28/22 17:30 baclofen AdvReac Unknown Verified 04/28/22 17:30 Review of Systems ROS Statement: Those systems with pertinent positive or pertinent negative responses have been documented in the HPI. ROS Other: All systems not noted in ROS Statement are negative. EKG Findings - EKG Comments: EKG Findings:: Sinus rhythm with first-degree AV block. Rate 80. SD interval 278. QRS duration 149. This EKG was also shown to and interpreted by my attending Dr. Zhu. Past Medical History Past Medical History: Coronary Artery Disease (CAD), Chest Pain / Angina, Heart Failure, Diabetes Mellitus, Hyperlipidemia, Hypertension, Myocardial Infarction (CA), Renal Disease Additional Past Medical History / Comment(s): 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, coronary artery disease, diabetes mellitus, hypertension, chronic renal failure, hyperlipidemia, JEN Last Myocardial Infarction Date:: 03/04/14 History of Any Multi-Drug Resistant Organisms: None Reported Past Surgical History: Cholecystectomy, Heart Catheterization, Heart Catheterization With Stent Additional Past Surgical History / Comment(s): shoulder, hemmroid, cardiac stent in june 2014, eye surgery Past Anesthesia/Blood Transfusion Reactions: No Reported Reaction Additional Past Anesthesia/Blood Transfusion Reaction / Comment(s): Never had a blood transfusion Date of Last Stent Placement:: 05/2014 Past Psychological History: Anxiety Smoking Status: Former smoker Past Alcohol Use History: None Reported Past Drug Use History: None Reported - Past Family History Father Family Medical History: Cancer Additional Family Medical History / Comment(s): bladder cancer Mother Family Medical History: Diabetes Mellitus Additional Family Medical History / Comment(s): Pancreatic CA General Exam Limitations: no limitations General appearance: alert, in no apparent distress Head exam: Present: atraumatic, normocephalic, normal inspection Eye exam: Present: normal appearance, PERRL, EOMI. Absent: scleral icterus, conjunctival injection, periorbital swelling Neck exam: Present: normal inspection Respiratory exam: Present: normal lung sounds bilaterally. Absent: respiratory distress, wheezes, rales, rhonchi, stridor Cardiovascular Exam: Present: regular rate, normal rhythm, normal heart sounds. Absent: systolic murmur, diastolic murmur, rubs, gallop, clicks Extremities exam: Present: pedal edema Neurological exam: Present: alert, oriented X3, CN II-XII intact Psychiatric exam: Present: normal affect, normal mood Skin exam: Present: warm, dry, intact, normal color. 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 Swelling has been ongoing for the last 2 weeks. Chest pain started today. On examination there is swelling of the bilateral lower extremities with pitting edema. Heart and lungs are clear to auscultation. Lab work shows no leukocytosis or anemia. Coags are WNL. Sodium 136. Patient has CK D, creatinine 3.22 with BUN of 39 are consistent with baseline. Troponin is less than 0.012 and BNP is 1150. Chest x-ray shows no acute process. Patient will be admitted for observation. I spoke with the [facility] physician who agreed to admit the patient. Cardiology is consulted. Disposition Clinical Impression: Chest pain, Lower extremity edema Disposition: ADMITTED IP TO THIS [facility] Condition: Fair Referrals: Marlon Valentino MD [Primary Care Provider] - 1-2 days Time of Disposition: 23:13 Decision to Admit Reason: Admit from EC Decision Date: 04/28/22 Decision Time: 23:13
[2022-04-28] MEDS ORDERED: NALOXONE 0.4 MG/ML 1 ML VIAL IV PRN (23:16)
[2022-04-29] MEDS ORDERED: ASPIRIN 325 MG TAB PO STA (03:27)
[2022-04-29] MEDS ORDERED: ATORVASTATIN 80 MG TAB PO STA (03:27)
--- NOTE | 2022-04-29 03:29 | P.HPIM ---
History of Present Illness H&P Date: 04/29/22 The patient is a 72-year-old male with a PMH of chronic kidney disease, type II DM on insulin pump, CHF, COPD, hypertension, and hyperlipidemia who presents to the emergency room with complaints of chest discomfort, lower extremity swelling, and an episode of dizziness. The patient reports that yesterday evening, he was at home when he suddenly developed an episode of lightheadedness, lasting a few seconds, and resolving spontaneously. He denied experiencing chest discomfort, palpitations, nausea, diaphoresis, or shortness of breath at that time. He then reports that over the past few weeks, he has been feeling more tired than usual, for which she was seen at his PCPs office earlier today. The patient was advised that he go to the emergency room for further evaluation for possible worsening kidney function. He reports that in route to the hospital, he developed a left-sided sharp chest discomfort, which lasted 30 seconds and resolve spontaneously. He denied any associated symptoms. He denies drinking cough, fever, chills, nausea, vomiting, abdominal pain, diarrhea. Chest x-ray in the emergency room was unremarkable. EKG reveals sinus rhythm with first-degree AV block at 80 bpm with a left anterior fascicular block. Laboratory evaluation will rule revealed a creatinine of 3.22 (at baseline), troponin less than 0.012, and proBNP 1150. Review of systems: Pertinent positives and negatives as discussed in HPI, a complete review of systems was performed and all other systems are negative. Physical examination: General: non toxic, no distress, appears at stated age, obese Derm: no unusual rashes/lesions, warm Head: atraumatic, normocephalic, symmetric Eyes: EOMI, no lid lag, anicteric sclera, pupils equal round reactive to light ENT: Nose and ears atraumatic Neck: No cervical lymphadenopathy, trachea midline, supple Mouth: no lip lesion, mucus membranes moist Cardiovascular: S1S2 reg, no murmur, positive dorsalis pedis pulse bilateral, no edema Lungs: CTA bilateral, no rhonchi, no rales, no accessory muscle use Abdominal: soft, nontender to palpation, no guarding Ext: muscle strength 5 out of 5 in all 4 extremities grossly, no gross muscle atrophy, no contractures, Neuro: CN II-XI grossly intact, no gross focal neuro deficits Psych: Alert, oriented, appropriate affect Assessment/plan Chest pain, rule out ACS -Cardiac consult -Trend troponin -Cardiac monitoring -Continue with aspirin, statin Chronic conditions: Type II DM, hypertension, hyperlipidemia, COPD, CHF -Continue with home meds -Patient's insulin pump discontinued (1 unit per hour basal rate with sliding scale for boluses) -Insulin sliding scale with blood glucose monitoring for now DVT prophylaxis -Heparin subcu The patient is admitted with an anticipated less than 2 midnight stay for evaluation of chest pain. CODE STATUS: Full Code Discussed with: Patient Anticipated discharge date: In the a.m. Anticipated discharge place: Home Past Medical History Past Medical History: Coronary Artery Disease (CAD), Chest Pain / Angina, Heart Failure, Diabetes Mellitus, Hyperlipidemia, Hypertension, Myocardial Infarction (DC), Renal Disease, Sleep Apnea/CPAP/BIPAP Additional Past Medical History / Comment(s): 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, coronary artery disease, diabetes mellitus, hypertension, chronic renal failure, hyp erlipidemia, JEN, pt has insulin pump Last Myocardial Infarction Date:: 03/04/14 History of Any Multi-Drug Resistant Organisms: None Reported Past Surgical History: Cholecystectomy, Heart Catheterization, Heart Catheterization With Stent, Orthopedic Surgery Additional Past Surgical History / Comment(s): shoulder, hemmroid, cardiac stent in june 2014, eye surgery, 3-4 cardiac stents Past Anesthesia/Blood Transfusion Reactions: No Reported Reaction Additional Past Anesthesia/Blood Transfusion Reaction / Comment(s): Never had a blood transfusion Date of Last Stent Placement:: 05/2014 Past Psychological History: Anxiety Additional Psychological History / Comment(s): Shopping and crowds bother patient. Smoking Status: Former smoker Past Alcohol Use History: None Reported Additional Past Alcohol Use History / Comment(s): pt. quit smoking in 1980 Past Drug Use History: None Reported - Past Family History Father Family Medical History: Cancer Additional Family Medical History / Comment(s): bladder cancer Mother Family Medical History: Diabetes Mellitus Additional Family Medical History / Comment(s): Pancreatic CA Medications and Allergies Home Medications Medication Instructions Recorded Confirmed Type Cetirizine HCl 10 mg PO DAILY 03/03/14 02/21/22 History Nitroglycerin Sl Tabs [Nitrostat] 0.4 mg SL Q5M PRN 03/03/14 02/21/22 History Rosuvastatin Calcium [Crestor] 40 mg PO HS 03/03/14 02/21/22 History Ezetimibe [Zetia] 10 mg PO DAILY 05/19/16 02/21/22 History Ferrous Sulfate [Iron (65 MG 325 mg PO DAILY 05/19/16 02/21/22 History Elemental)] Ergocalciferol (Vitamin D2) 50,000 unit PO Q14D 05/28/18 02/21/22 History [Vitamin D2] Febuxostat [Uloric] 40 mg PO DAILY 05/28/18 02/21/22 History Insulin Aspart (For Pump) [NovoLOG 0.01 unit SQ-PUMP CONTINUOUS 05/28/18 02/21/22 History (For Pump)] Vitamin B Complex 1 cap PO DAILY 05/28/18 02/21/22 History Isosorbide Mononitrate ER [Imdur] 60 mg PO BID 07/05/18 02/21/22 History calcitrioL [Calcitriol] 0.25 mcg PO MOTUWETHFR 07/05/18 02/21/22 History Pramipexole [Mirapex] 0.5 mg PO HS 05/02/19 02/21/22 History Ranolazine [Ranexa] 500 mg PO BID 05/02/19 02/21/22 History Propranolol [Inderal] 20 mg PO DAILY 07/28/20 02/21/22 History Dulaglutide [Trulicity] 1.5 mg SQ SA 05/23/21 02/21/22 History Albuterol Inhaler [Ventolin Hfa 2 puff INHALATION RT-Q4H PRN 08/10/21 02/21/22 History Inhaler] Fluticasone Propion/Salmeterol 1 puff INHALATION RT-BID 08/10/21 02/21/22 Hi story [Wixela 100-50 Inhub] hydrALAZINE HCL [Apresoline] 10 mg PO BID 10/16/21 02/21/22 History Furosemide [Lasix] 40 mg PO DAILY 30 Days #30 tablet 10/20/21 02/21/22 Rx Aspirin EC [Ecotrin Low Dose] 81 mg PO DAILY 02/21/22 02/21/22 History Cholecalciferol [Vitamin D3 (25 25 mcg PO DAILY 02/21/22 02/21/22 History Mcg = 1000 Iu)] Escitalopram [Lexapro] 20 mg PO DAILY 02/21/22 02/21/22 History Glucagon Emergency Kit 1 mg IM ONCE PRN 02/21/22 02/21/22 History Ofloxacin 0.3% Ophth Soln [Ocuflox 10 drops RIGHT EYE DAILY 02/21/22 02/21/22 History Ophth Soln] Spironolactone-Hctz 25-25Mg 1 tab PO DAILY 02/21/22 02/21/22 History [Aldactazide 25-25 MG] Cefepime [Maxipime] 1 gm IVPB Q12H 10 Days #20 ml 02/24/22 Rx DAPTOmycin [Cubicin Rf] 500 mg IV Q48H 10 Days #5 each 02/24/22 Rx Allergies Allergy/AdvReac Type Severity Reaction Status Date / Time atorvastatin [From Lipitor] AdvReac Unknown Verified 04/28/22 17:30 [email or web address] AdvReac Unknown Verified 04/28/22 17:30 Physical Exam Vitals: Vital Signs Temp Pulse Pulse Resp BP BP Pulse Ox 04/29/22 01:31 98.3 F 76 16 174/81 100 04/29/22 00:26 77 16 154/78 98 04/28/22 22:00 74 154/77 04/28/22 21:36 73 171/76 04/28/22 20:55 98.6 F 72 72 15 162/79 100 04/28/22 17:29 98.4 F 77 16 180/74 99 Intake and Output 04/28/22 04/28/22 04/29/22 14:59 22:59 06:59 Other: Voiding Method Toilet Weight 103.419 kg 103.419 kg Results CBC & Chem 7: 04/28/22 20:30 04/28/22 20:30 Labs: Abnormal Lab Results - Last 24 Hours (Table) 04/28/22 Range/Units 20:30 Sodium 136 L (137-145) mmol/L Chloride 97 L (98-107) mmol/L BUN 39 H (9-20) mg/dL Creatinine 3.22 H (0.66-1.25) mg/dL Glucose 141 H (74-99) mg/dL Thrombosis Risk Factor Assmnt - Choose All That Apply Each Factor Represents 1 point: Obesity (BMI >25), Serious lung disease incl. pneumonia (< 1month) Each Risk Factor Represents 2 Points: Age 61-74 years Thrombosis Risk Factor Assessment Total Risk Factor Score: 4 Thrombosis Risk Factor Assessment Level: Moderate Risk
[2022-04-29 04:05] LABS: Appearance,Urine Clear (Clear); Bacteria,Urine Rare /hpf; Bilirubin,Urine Negative (Negative); Blood,Urine Negative (Negative); Color,Urine Yellow; Glucose,Urine (UA) Trace (Negative); Ketones,Urine Negative (Negative); Leukocyte Esterase,Urine Negative (Negative); Mucus,Urine Rare /hpf; Nitrite,Urine Negative (Negative); Protein,Urine 2+ (Negative); RBC,Urine 2 /hpf (0-5); Specific Gravity,Urine 1.011 (1.001-1.035); Urobilinogen,Urine <2.0 mg/dL (<2.0); WBC,Urine <1 /hpf (0-5)
[2022-04-29 07:13] VITALS: BP 146/55; PULSE 73; RESP 15; TEMP 98.6
[2022-04-29] MEDS ORDERED: INSULIN ASPART (NovoLOG) 100 UNIT/ML VIAL SQ SCH (07:30)
[2022-04-29] MEDS ORDERED: HEPARIN SODIUM,PORCINE/PF 5,000 UNIT/0.5 ML SYRINGE SQ SCH (08:00)
[2022-04-29 08:01] LABS: Glucose,Whole Blood 132 mg/dL (70-110)
--- NOTE | 2022-04-29 09:16 | P.CRDCN ---
History of Present Illness History of present illness: HISTORY OF PRESENT ILLNESS: This is a 71-year-old male with a past medical history significant for chronic kidney disease, hypertension, hyperlipidemia, neuropathy, CAD with prior CT of the circumflex with collaterals being treated medically, and mild ischemic cardi o myopathy with recent improvement in EF. Patient follows in the office with Dr. Castle. We have been asked to see the patient in consultation for chest pain. Patient examined at the bedside. Patient states that yesterday he was at a follow-up appointment with his sampler first when he began to tell his physician that he has been feeling more tired recently and having headaches. He also reports that his feet were more swollen than normal. He denied having any chest pain or shortness of breath. He states that his sampler first recommended that he come to the hospital for further evaluation. At the time of my examination this morning, the patient denies having any chest pain or pres sure. He denies any shortness of breath. He reports he has been compliant with all of his medications. However he states he is having a hard time with a low- sodium diet. * EKG reveals sinus mechanism with no signs of acute ischemia * Chest xray negative for acute process * Laboratory data: WBC 4.1. Hemoglobin 13.4. Platelet count 234. Sodium 136. Potassium 4.9. BUN 39. Creatinine 3.22. Troponin negative 3. ProBNP 1150. * Current home cardiac medications include Crestor 40 mg at night, Inderal 20 mg daily, Ranexa 500 mg twice a day, Imdur 60 mg twice a day, Lasix 40 mg daily, Zetia 10 mg daily, aspirin 81 mg daily * Most recent echocardiogram obtained in September 2021 revealed ejection fraction 50-55%, mild tricuspid regurgitation REVIEW OF SYSTEMS: At the time of my exam: CONSTITUTIONAL: Denies fever or chills. HEENT: Denies blurred vision, vision changes, or eye pain. Denies hemoptysis CARDIOVASCULAR: Denies chest pain. Denies orthopnea. Denies PND. Denies palpitations RESPIRATORY: Denies shortness of breath. GASTROINTESTINAL: Denies abdominal pain. Denies nausea or vomiting. HEMATOLOGIC: Denies bleeding disorders. GENITOURINARY: Denies any blood in urine. SKIN: Denies pruitis. Denies rash. PHYSICAL EXAM: VITAL SIGNS: Reviewed. GENERAL: Well-developed in no acute distress. HEENT: Head is normocephalic. Pupils are equal, round. Sclerae anicteric. Mucous membranes of the mouth are moist. Neck supple. No JVD or thyromegaly LUNGS: Respirations even and unlabored. Lungs essentially clear to auscultation bilaterally. HEART: Regular rate and rhythm. S1 and S2 heard. Systolic murmur noted ABDOMEN: Soft. Nondistended. Nontender. EXTREMITIES: Normal range of motion. No clubbing or cyanosis. Peripheral pulses intact. Trace lower extremity edema NEUROLOGIC: Awake and alert. Oriented x 3. ASSESSMENT: Weakness and headaches Chest pain, ruled out, patient denies ever having chest pain Chronic congestive heart failure with preserved ejection fraction, currently euvolemic Coronary artery disease with prior LIBRARY CLERK of circumflex with collaterals being treated medically Chronic kidney disease Hypertension Hyperlipidemia Neuropathy PLAN: No need to repeat echocardiogram as this was performed in September 2021 Resume home cardiac medications Patient is not in acute congestive heart failure Patient may be discharged home today from a cardiac stand point and follow up outpatient with Dr. Castle Nurse practitioner note has been reviewed by physician. Signing provider agrees with the documented findings, assessment, and plan of care. Past Medical History Past Medical History: Coronary Artery Disease (CAD), Chest Pain / Angina, Heart Failure, Diabetes Mellitus, Hyperlipidemia, Hypertension, Myocardial Infarction (NM), Renal Disease, Sleep Apnea/CPAP/BIPAP Additional Past Medical History / Comment(s): 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, coronary artery disease, diabetes mellitus, hypertension, chronic renal failure, hyperlipidemia, JEN, pt has insulin pump Last Myocardial Infarction Date:: 03/04/14 History of Any Multi-Drug Resistant Organisms: None Reported Past Surgical History: Cholecystectomy, Heart Catheterization, Heart Catheterization With Stent, Orthopedic Surgery Additional Past Surgical History / Comment(s): shoulder, hemmroid, cardiac stent in june 2014, eye surgery, 3-4 cardiac stents Past Anesthesia/Blood Transfusion Reactions: No Reported Reaction Additional Past Anesthesia/Blood Transfusion Reaction / Comment(s): Never had a blood transfusion Date of Last Stent Placement:: 05/2014 Past Psychological History: Anxiety Additional Psychological History / Comment(s): Shopping and crowds bother patient. Smoking Status: Former smoker Past Alcohol Use History: None Reported Additional Past Alcohol Use History / Comment(s): pt. quit smoking in 1980 Past Drug Use History: None Reported - Past Family History Father Family Medical History: Cancer Additional Family Medical History / Comment(s): bladder cancer Mother Family Medical History: Diabetes Mellitus Additional Family Medical History / Comment(s): Pancreatic CA Medications and Allergies Home Medications Medication Instructions Recorded Confirmed Type Cetirizine HCl 10 mg PO DAILY 03/03/14 04/29/22 History Nitroglycerin Sl Tabs [Nitrostat] 0.4 mg SL Q5M PRN 03/03/14 04/29/22 History Rosuvastatin Calcium [Crestor] 40 mg PO HS 03/03/14 04/29/22 History Ezetimibe [Zetia] 10 mg PO DAILY 05/19/16 04/29/22 History Ferrous Sulfate [Iron (65 MG 325 mg PO DAILY 05/19/16 04/29/22 History Elemental)] Ergocalciferol (Vitamin D2) 50,000 unit PO Q14D 05/28/18 04/29/22 History [Vitamin D2] Febuxostat [Uloric] 40 mg PO DAILY 05/28/18 04/29/22 History Insulin Aspart (For Pump) [NovoLOG 0.01 unit SQ-PUMP CONTINUOUS 05/28/18 04/29/22 History (For Pump)] Vitamin B Complex 1 cap PO DAILY 05/28/18 04/29/22 History Isosorbide Mononitrate ER [Imdur] 60 mg PO BID 07/05/18 04/29/22 History calcitrioL [Calcitriol] 0.25 mcg PO MOTUWETHFR 07/05/18 04/29/22 History Pramipexole [Mirapex] 0.5 mg PO HS 05/02/19 04/29/22 History Ranolazine [Ranexa] 500 mg PO BID 05/02/19 04/29/22 History Propranolol [Inderal] 20 mg PO DAILY 07/28/20 04/29/22 History Dulaglutide [Trulicity] 1.5 mg SQ SA 05/23/21 04/29/22 History Albuterol Inhaler [Ventolin Hfa 2 puff INHALATION RT-Q4H PRN 08/10/21 04/29/22 History Inhaler] Fluticasone Propion/Salmeterol 1 puff INHALATION RT-BID 08/10/21 04/29/22 History [Wixela 100-50 Inhub] hydrALAZINE HCL [Apresoline] 10 mg PO BID 10/16/21 04/29/22 History Furosemide [Lasix] 40 mg PO DAILY 30 Days #30 tablet 10/20/21 04/29/22 Rx Aspirin EC [Ecotrin Low Dose] 81 mg PO DAILY 02/21/22 04/29/22 History Cholecalciferol [Vitamin D3 (25 25 mcg PO DAILY 02/21/22 04/29/22 History Mcg = 1000 Iu)] Escitalopram [Lexapro] 10 mg PO DAILY 02/21/22 04/29/22 History Glucagon Emergency Kit 1 mg IM ONCE PRN 02/21/22 04/29/22 History Allergies Allergy/AdvReac Type Severity Reaction Status Date / Time atorvastatin [From Lipitor] AdvReac Unknown Verified 04/28/22 17:30 [email or web address] AdvReac Unknown Verified 04/28/22 17:30 Physical Exam Vitals: Vital Signs Temp Pulse Pulse Resp BP BP Pulse Ox 04/29/22 07:00 98.6 F 73 15 146/55 96 04/29/22 04:12 118/75 04/29/22 01:31 98.3 F 76 16 174/81 100 04/29/22 00:26 77 16 154/78 98 04/28/22 22:00 74 154/77 04/28/22 21:36 73 171/76 04/28/22 20:55 98.6 F 72 72 15 162/79 100 04/28/22 17:29 98.4 F 77 16 180/74 99 Intake and Output 04/28/22 04/29/22 04/29/22 22:59 06:59 14:59 Other: Voiding Method Toilet # Voids 2 Weight 103.419 kg 103.419 kg Results 04/28/22 20:30 04/28/22 20:30 Cardiac Enzymes 04/28/22 04/28/22 04/29/22 Range/Units 20:30 20:30 00:02 AST 29 (17-59) U/L Troponin I <0.012 <0.012 (0.000-0.034) ng/mL 04/29/22 Range/Units 05:18 AST (17-59) U/L Troponin I 0.013 (0.000-0.034) ng/mL Coagulation 04/28/22 Range/Units 20:30 PT 11.0 (9.0-12.0) sec APTT 27.0 (22.0-30.0) sec CBC 04/28/22 Range/Units 20:30 WBC 4.1 (3.8-10.6) k/uL RBC 4.50 (4.30-5.90) m/uL Hgb 13.4 (13.0-17.5) gm/dL Hct 39.3 (39.0-53.0) % Plt Count 234 (150-450) k/uL Comprehensive Metabolic Panel 04/28/22 Range/Units 20:30 Sodium 136 L (137-145) mmol/L Potassium 4.9 (3.5-5.1) mmol/L Chloride 97 L (98-107) mmol/L Carbon Dioxide 25 (22-30) mmol/L BUN 39 H (9-20) mg/dL Creatinine 3.22 H (0.66-1.25) mg/dL Glucose 141 H (74-99) mg/dL Calcium 9.3 (8.4-10.2) mg/dL AST 29 (17-59) U/L ALT 17 (4-49) U/L Alkaline Phosphatase 115 (38-126) U/L Total Protein 8.2 (6.3-8.2) g/dL Albumin 4.3 (3.5-5.0) g/dL Current Medications Generic Name Dose Route Start Last Admin Trade Name Freq PRN Reason Stop Dose Admin Heparin Sodium (Porcine) 5,000 unit 04/29/22 08:00 Heparin Sodium,Porcine/Pf 5,000 Unit/0.5 Ml Syringe SQ Q8HR [facility] Insulin Aspart 0 unit 04/29/22 07:30 Insulin Aspart (Novolog) 100 Unit/Ml Vial SQ ACHS [facility] Protocol Naloxone HCl 0.2 mg 04/28/22 23:16 Naloxone 0.4 Mg/Ml 1 Ml Vial IV Q2M PRN Opioid Reversal Intake and Output 04/28/22 04/29/22 04/29/22 22:59 06:59 14:59 Other: Voiding Method Toilet # Voids 2 Weight 103.419 kg 103.419 kg 04/28/22 20:30 04/28/22 20:30
[2022-04-29] MEDS ORDERED: FUROSEMIDE 40 MG TAB PO SCH (09:30)
[2022-04-29] MEDS ORDERED: PROPRANOLOL 20 MG TAB PO SCH (09:30)
[2022-04-29] MEDS ORDERED: EZETIMIBE 10 MG TAB PO SCH (09:30)
[2022-04-29] MEDS ORDERED: ASPIRIN 81 MG PO SCH (09:30)
[2022-04-29] MEDS ORDERED: hydrALAZINE HCL 10 MG TAB PO SCH (09:30)
[2022-04-29] MEDS ORDERED: RANOLAZINE 500 MG TAB.ER.12H PO SCH (09:30)
[2022-04-29] MEDS ORDERED: ISOSORBIDE MONONITRATE ER 60 MG TAB.ER.24H PO SCH (09:30)
--- NOTE | 2022-04-29 10:11 | P.DS ---
Providers Date of admission: 04/29/22 00:01 Expected date of discharge: 04/29/22 Attending physician: Kristen Becerra MD Consults: 04/28/22 23:16 Consult Physician Urgent Consulting Provider: [facility] Consult Reason/Comments: chest pain Do you want consulting provider notified?: Yes Primary care physician: Marlon Valentino MD Hospital Course: The patient is a 72-year-old male with a PMH of chronic kidney disease, type II DM on insulin pump, CHF, COPD, hypertension, and hyperlipidemia who presents to the emergency room with complaints of chest discomfort, lower extremity swelling, and an episode of dizziness. The patient reports that yesterday evening, he was at home when he suddenly developed an episode of lightheadedness, lasting a few seconds, and resolving spontaneously. He denied experiencing chest discomfort, palpitations, nausea, diaphoresis, or shortness of breath at that time. He then reports that over the past few weeks, he has been feeling more tired than usual, for which she was seen at his PCPs office earlier today. The patient was advised that he go to the emergency room for further evaluation for possible worsening kidney function. He reports that in route to the hospital, he developed a left-sided sharp chest discomfort, which lasted 30 seconds and resolve spontaneously. He denied any associated symptoms. He denies drinking cough, fever, chills, nausea, vomiting, abdominal pain, diarrhea. Chest x-ray in the emergency room was unremarkable. EKG reveals sinus rhythm with first-degree AV block at 80 bpm with a left anterior fascicular block. Laboratory evaluation will rule revealed a creatinine of 3.22 (at baseline), troponin less than 0.012, and proBNP 1150. Troponins were trended and ACS was ruled out. Cardiology was consulted and recommended no further workup. Patient was seen and examined. No acute events overnight. Patient reports complete resolution of his chest pain. He reports burning like sensation in both of his feet. He denies any shortness of breath or palpitations. No nausea or vomiting. No fever or chills. Comfortable being discharged home. He is advised follow-up with his PCP within 1-2 days discharge. Follow-up with cardiology within 1 week of discharge. Resume all home medications. Patient verbalized understanding of the plan. General: non toxic, no distress, appears at stated age, obese Derm: no unusual rashes/lesions, warm Head: atraumatic, normocephalic, symmetric Eyes: EOMI, no lid lag, anicteric sclera ENT: Nose and ears atraumatic Neck: No cervical lymphadenopathy, trachea midline, supple Mouth: no lip lesion, mucus membranes moist Cardiovascular: S1S2 reg, no murmur, no edema Lungs: CTA bilateral, no rhonchi, no rales, no accessory muscle use Ext: muscle strength 5 out of 5 in all 4 extremities grossly Neuro: no gross focal neuro deficits Psych: Alert, oriented, appropriate affect Discharge Diagnosis: Chest pain, rule out ACS Chronic conditions: Type II DM, hypertension, hyperlipidemia, COPD, CHF, CKD stage 4 Pertinent Studies: CXR Patient Condition at Discharge: Stable Plan - Discharge Summary New Discharge Prescriptions: Continue Rosuvastatin Calcium [Crestor] 40 mg PO HS Cetirizine HCl 10 mg PO DAILY Nitroglycerin Sl Tabs [Nitrostat] 0.4 mg SL Q5M PRN PRN Reason: Chest Pain Ezetimibe [Zetia] 10 mg PO DAILY Ferrous Sulfate [Iron (65 MG Elemental)] 325 mg PO DAILY Febuxostat [Uloric] 40 mg PO DAILY Vitamin B Complex 1 cap PO DAILY Ergocalciferol (Vitamin D2) [Vitamin D2] 50,000 unit PO Q14D Insulin Aspart (For Pump) [NovoLOG (For Pump)] 0.01 unit SQ-PUMP CONTINUOUS calcitrioL [Calcitriol] 0.25 mcg PO MOTUWETHFR Isosorbide Mononitrate ER [Imdur] 60 mg PO BID Pramipexole [Mirapex] 0.5 mg PO HS Ranolazine [Ranexa] 500 mg PO BID Propranolol [Inderal] 20 mg PO DAILY Albuterol Inhaler [Ventolin Hfa Inhaler] 2 puff INHALATION RT-Q4H PRN PRN Reason: Shortness Of Breath Fluticasone Propion/Salmeterol [Wixela 100-50 Inhub] 1 puff INHALATION RT-BID Furosemide [Lasix] 40 mg PO DAILY 30 Days #30 tablet Glucagon Emergency Kit 1 mg IM ONCE PRN PRN Reason: Hypoglycemia Cholecalciferol [Vitamin D3 (25 Mcg = 1000 Iu)] 25 mcg PO DAILY Escitalopram [Lexapro] 10 mg PO DAILY Dulaglutide [Trulicity] 1.5 mg SQ SA hydrALAZINE HCL [Apresoline] 10 mg PO BID Aspirin EC [Ecotrin Low Dose] 81 mg PO DAILY Discharge Medication List Cetirizine HCl 10 mg PO DAILY 03/03/14 [History] Nitroglycerin Sl Tabs [Nitrostat] 0.4 mg SL Q5M PRN 03/03/14 [History] Rosuvastatin Calcium [Crestor] 40 mg PO HS 03/03/14 [History] Ezetimibe [Zetia] 10 mg PO DAILY 05/19/16 [History] Ferrous Sulfate [Iron (65 MG Elemental)] 325 mg PO DAILY 05/19/16 [History] Ergocalciferol (Vitamin D2) [Vitamin D2] 50,000 unit PO Q14D 05/28/18 [History] Febuxostat [Uloric] 40 mg PO DAILY 05/28/18 [History] Insulin Aspart (For Pump) [NovoLOG (For Pump)] 0.01 unit SQ-PUMP CONTINUOUS 05/28/18 [History] Vitamin B Complex 1 cap PO DAILY 05/28/18 [History] Isosorbide Mononitrate ER [Imdur] 60 mg PO BID 07/05/18 [History] calcitrioL [Calcitriol] 0.25 mcg PO MOTUWETHFR 07/05/18 [History] Pramipexole [Mirapex] 0.5 mg PO HS 05/02/19 [History] Ranolazine [Ranexa] 500 mg PO BID 05/02/19 [History] Propranolol [Inderal] 20 mg PO DAILY 07/28/20 [History] Dulaglutide [Trulicity] 1.5 mg SQ SA 05/23/21 [History] Albuterol Inhaler [Ventolin Hfa Inhaler] 2 puff INHALATION RT-Q4H PRN 08/10/21 [History] Fluticasone Propion/Salmeterol [Wixela 100-50 Inhub] 1 puff INHALATION RT-BID 08/10/21 [History] hydrALAZINE HCL [Apresoline] 10 mg PO BID 10/16/21 [History] Furosemide [Lasix] 40 mg PO DAILY 30 Days #30 tablet 10/20/21 [Rx] Aspirin EC [Ecotrin Low Dose] 81 mg PO DAILY 02/21/22 [History] Cholecalciferol [Vitamin D3 (25 Mcg = 1000 Iu)] 25 mcg PO DAILY 02/21/22 [History] Escitalopram [Lexapro] 10 mg PO DAILY 02/21/22 [History] Glucagon Emergency Kit 1 mg IM ONCE PRN 02/21/22 [History] Follow up Appointment(s)/Referral(s): Marlon Valentino MD [Primary Care Provider] - 1-2 days Shiraz Castle DO [STAFF PHYSICIAN] - 1 Week Activity/Diet/Wound Care/Special Instructions: Diet: Cardiac He is advised follow-up with his PCP within 1-2 days discharge. Follow-up with cardiology within 1 week of discharge. Resume all home medications. Discharge Disposition: HOME SELF-CARE
[2022-04-29 11:06] LABS: Glucose,Whole Blood 233 mg/dL (70-110)
[2022-04-29] MEDS ORDERED: NON FORMULARY DRUG (Rosuvastatin Calcium [Crestor] 40 MG Tablet) PO SCH (21:00)
== END 2022-04-29 12:04 | disposition home or self-care (01) ==
LOC: EC 17:24 → 6NMEDSUR 04-29 00:01
PROVIDERS: ADMIT Internal Medicine; ATTEND Internal Medicine
DX: R07.9 Chest pain, unspecified (principal); R60.0 Localized edema; R53.1 Weakness; R51.9 Headache, unspecified; I25.10 Atherosclerotic heart disease of native coronary artery without angina pectoris; E78.5 Hyperlipidemia, unspecified; I25.2 Old myocardial infarction; I13.0 Hypertensive heart and chronic kidney disease with heart failure and stage 1 through stage 4 chronic kidney disease, or unspecified chronic kidney disease; I50.32 Chronic diastolic (congestive) heart failure; N18.4 Chronic kidney disease, stage 4 (severe); G47.33 Obstructive sleep apnea (adult) (pediatric); F41.9 Anxiety disorder, unspecified; E11.40 Type 2 diabetes mellitus with diabetic neuropathy, unspecified; I25.82 Chronic total occlusion of coronary artery; E11.22 Type 2 diabetes mellitus with diabetic chronic kidney disease; J44.9 Chronic obstructive pulmonary disease, unspecified; Z87.891 Personal history of nicotine dependence; Z90.49 Acquired absence of other specified parts of digestive tract; Z95.5 Presence of coronary angioplasty implant and graft; Z96.41 Presence of insulin pump (external) (internal); Z79.4 Long term (current) use of insulin; Z79.82 Long term (current) use of aspirin; Z79.899 Other long term (current) drug therapy; Z80.0 Family history of malignant neoplasm of digestive organs; Z80.52 Family history of malignant neoplasm of bladder; Z83.3 Family history of diabetes mellitus
CPT/HCPCS: 96372; 99285; 36415; 93005; 83880; 80053; 83735; 84484 ×2; 85025; 85610; 85730; 81001; 71046; G0378; J1644

== ENCOUNTER 2022-10-15 17:29 | Observation (INO) | payer MEDICARE ==
--- NOTE | 2022-10-15 18:20 | ED ---
Chest Pain HPI - General Chief Complaint: Chest Pain Stated Complaint: chest pain Time Seen by Provider: 10/15/22 17:45 Source: patient, EMS Mode of arrival: EMS Limitations: no limitations - History of Present Illness Initial Comments: Patient is a 71-year-old male presenting with chief complaint of chest pain. Pain is located on the right lower side of the chest and started this morning. Has been building in intensity throughout the day. Patient states that the pain is intermittent, when it comes on it is sharp and stabbing. Patient took 4 81 m g aspirin at home and 2 nitro, he called EMS and was given 100 mcg fentanyl intranasally which he states helped alleviate the pain. No shortness of breath, palpitations, weakness, numbness, tingling, fever, chills, cough, congestion, sore throat, abdominal pain, nausea, vomiting, diarrhea. - Related Data Home Medications Medication Instructions Recorded Confirmed Cetirizine HCl 10 mg PO DAILY 03/03/14 10/15/22 Nitroglycerin Sl Tabs [Nitrostat] 0.4 mg SL Q5M PRN 03/03/14 10/15/22 Rosuvastatin Calcium [Crestor] 40 mg PO HS 03/03/14 10/15/22 Ezetimibe [Zetia] 10 mg PO DAILY 05/19/16 10/15/22 Ferrous Sulfate [Iron (65 MG 325 mg PO DAILY 05/19/16 10/15/22 Elemental)] Ergocalciferol (Vitamin D2) 50,000 unit PO Q14D 05/28/18 10/15/22 [Vitamin D2] Febuxostat [Uloric] 40 mg PO DAILY 05/28/18 10/15/22 Insulin Aspart (For Pump) [NovoLOG 0.01 unit SQ-PUMP CONTINUOUS 05/28/18 10/15/22 (For Pump)] Vitamin B Complex 1 cap PO DAILY 05/28/18 10/15/22 Isosorbide Mononitrate ER [Imdur] 60 mg PO BID 07/05/18 10/15/22 calcitrioL [Calcitriol] 0.25 mcg PO MOTUWETHFR 07/05/18 10/15/22 Pramipexole [Mirapex] 0.5 mg PO BID 05/02/19 10/15/22 Ranolazine [Ranexa] 500 mg PO BID 05/02/19 10/15/22 Propranolol [Inderal] 20 mg PO DAILY 07/28/20 10/15/22 Dulaglutide [Trulicity] 1.5 mg SQ MO 05/23/21 10/15/22 Albuterol Inhaler [Ventolin Hfa 2 puff INHALATION RT-Q4H PRN 08/10/21 10/15/22 Inhaler] Fluticasone Propion/Salmeterol 1 puff INHALATION RT-BID 08/10/21 10/15/22 [Wixela 100-50 Inhub] hydrALAZINE HCL [Apresoline] 10 mg PO BID 10/16/21 10/15/22 Aspirin EC [Ecotrin Low Dose] 81 mg PO HS 02/21/22 10/15/22 Cholecalciferol [Vitamin D3 (25 25 mcg PO DAILY 02/21/22 10/15/22 Mcg = 1000 Iu)] Escitalopram [Lexapro] 10 mg PO DAILY 02/21/22 10/15/22 Glucagon Emergency Kit 1 mg IM ONCE PRN 02/21/22 10/15/22 Previous Rx's Medication Instructions Recorded Furosemide [Lasix] 40 mg PO DAILY 30 Days #30 tablet 10/20/21 Allergies Allergy/AdvReac Type Severity Reaction Status Date / Time atorvastatin [From Lipitor] AdvReac Unknown Verified 10/15/22 18:09 baclofen AdvReac Unknown Verified 10/15/22 18:09 Review of Systems ROS Statement: Those systems with pertinent positive or pertinent negative responses have been documented in the HPI. ROS Other: All systems not noted in ROS Statement are negative. EKG Findings - EKG Comments: EKG Findings:: Sinus rhythm with sinus arrhythmia. Ventricular rate 56. QRS 162. QT 485. QTc 476. No ischemic changes. EKG interpreted by me as well as my attending Dr. Cervantes Past Medical History Past Medical History: Coronary Artery Disease (CAD), Chest Pain / Angina, Heart Failure, Diabetes Mellitus, Hyperlipidemia, Hypertension, Myocardial Infarction (CO), Renal Disease, Sleep Apnea/CPAP/BIPAP Additional Past Medical History / Comment(s): 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, coronary artery disease, diabetes mellitus, hypertension, chronic renal failure, hyperlipidemia, JEN, pt has insulin pump Last Myocardial Infarction Date:: 03/04/14 History of Any Multi-Drug Resistant Organisms: None Reported Past Surgical History: Cholecystectomy, Heart Catheterization, Heart Catheterization With Stent, Orthopedic Surgery Additional Past Surgical History / Comment(s): shoulder, hemmroid, cardiac stent in june 2014, eye surgery, 3-4 cardiac stents Past Anesthesia/Blood Transfusion Reactions: No Reported Reaction Additional Past Anesthesia/Blood Transfusion Reaction / Comment(s): Never had a blood transfusion Date of Last Stent Placement:: 05/2014 Past Psychological History: Anxiety Smoking Status: Former smoker Past Alcohol Use History: None Reported Past Drug Use History: None Reported - Past Family History Father Family Medical History: Cancer Additional Family Medical History / Comment(s): bladder cancer Mother Family Medical History: Diabetes Mellitus Additional Family Medical History / Comment(s): Pancreatic CA General Exam Limitations: no limitations General appearance: alert, in no apparent distress Head exam: Present: atraumatic, normocephalic, normal inspection Eye exam: Present: normal appearance Neck exam: Present: normal inspection, full ROM Respiratory exam: Present: normal lung sounds bilaterally. Absent: respiratory distress, wheezes, rales, rhonchi, stridor Cardiovascular Exam: Present: regular rate, normal rhythm, normal heart sounds. Absent: systolic murmur, diastolic murmur, rubs, gallop, clicks GI/Abdominal exam: Present: soft. Absent: distended, tenderness, guarding, rebound, rigid Neurological exam: Present: alert, oriented X3, CN II-XII intact Psychiatric exam: Present: normal affect, normal mood Skin exam: Present: warm, dry, intact, normal color. Absent: rash Course Vital Signs 10/15/22 10/15/22 17:34 20:01 Temperature 98.6 F Pulse Rate 62 60 Respiratory 18 18 Rate Blood Pressure 169/81 161/82 O2 Sat by Pulse 95 98 Oximetry Chest Pain MDM - MDM Was pt. sent in by a medical professional or institution (, PA, JEWELRY TECHNICIAN, urgent care, hospital, or prison...) When possible be specific @ -No Did you speak to anyone other than the patient for history (EMS, parent, family, police, friend...)? What history was obtained from this source @ -No Did you review nursing and triage notes (agree or disagree)? Why? @ -I reviewed and agree with nursing and triage notes Were old charts reviewed (outside hosp., previous admission, EMS record, old EKG, old radiological studies, urgent care reports/EKG's, prison records)? Report findings @ -No old charts were reviewed Differential Diagnosis (chest pain, altered mental status, abdominal pain women, abdominal pain men, vaginal bleeding, weakness, fever, dyspnea, syncope, headache, dizziness, GI bleed, back pain, seizure, CVA, palpatations, mental health, musculoskeletal)? @ -MDM Differential Chest Pain: Stable Angina, Unstable Angina, STEMI, NSTEMI Aortic Dissection, Pneumothorax, Musculoskeletal, Esophageal Spasm GERD, Cholecystitis, Pancreatitis, Zoster This is not meant to be an all-inclusive list. EKG interpreted by me (3pts min.). @ -As above X-rays interpreted by me (1pt min.). @ -Chest x-ray shows no acute process CT interpreted by me (1pt min.). @ -None done U/S interpreted by me (1pt. min.). @ -None done What testing was considered but not performed or refused? (CT, X-rays, U/S, labs)? Why? @ -None What meds were considered but not given or refused? Why? @ -None Did you discuss the management of the patient with other professionals (professionals i.e. , PA, JEWELRY TECHNICIAN, lab, RT, psych nurse, social work case manager, financial foundations representative, teacher, strategic intelligence officer, block and case maker)? Give summary @ -No Was smoking cessation discussed for >3mins.? @ -No Was critical care preformed (if so, how long)? @ -No Were there social determinants of health that impacted care today? How? (Homelessness, low income, unemployed, alcoholism, drug addiction, transportation, low edu. Level, literacy, decrease access to med. care, fdc, rehab)? @ -No Was there de-escalation of care discussed even if they declined (Discuss DNR or withdrawal of care, Hospice)? DNR status @ -No What co-morbidities impacted this encounter? (DM, HTN, Smoking, COPD, CAD, Cancer, CVA, ARF, Chemo, Hep., AIDS, mental health diagnosis, sleep apnea, morbid obesity)? @ -Previous CO, diabetes, hypertension, hyperlipidemia, CAD Was patient admitted / discharged? Hospital course, mention meds given and route, prescriptions, significant lab abnormalities, going to OR and other pertinent info. @ -Patient is a 71-year-old male presenting with chief complaint of chest pain that started today. Patient took aspirin at home into nitro prior to arrival, EMS gave him 100mcg fentanyl prior to arrival. Patient reports no active pain. On physical examination pain is not reproducible. Lab work shows no leukocytosis or anemia. D-dimer of 0.71, age-adjusted d-dimer cut off is 0.72 making PE unlikely. Creatinine 3.10 and BUN 38, this is consistent with patient's history of chronic kidney disease. Troponin is less than 0.012. EKG shows no acute changes. Chest x-ray shows no acute process. Ultrasound of the right upper quadrant shows no acute process. Patient is educated on these findings. I advised the patient to stay for observation due to his history of CO and multiple comorbidities. Patient is agreeable with this plan. I spoke with Dr. Becerra who accepted admission. I discussed this case with my attending Dr. cervantes Undiagnosed new problem with uncertain prognosis? @ -No Drug Therapy requiring intensive monitoring for toxicity (Heparin, Nitro, Insulin, Cardizem)? @ -No Were any procedures done? @ -No Diagnosis/symptom? @ -Chest pain Acute, or Chronic, or Acute on Chronic? @ -Acute Uncomplicated (without systemic symptoms) or Complicated (systemic symptoms)? @ -complicated Side effects of treatment? @ -No Exacerbation, Progression, or Severe Exacerbation? @ -No Poses a threat to life or bodily function? How? (Chest pain, USA, CO, pneumonia, PE, COPD, DKA, ARF, appy, cholecystitis, CVA, Diverticulitis, Homicidal, Suicidal, threat to staff... and all critical care pts) @ -yes Disposition Clinical Impression: Chest pain Disposition: ADMITTED IP TO THIS HOSP Condition: Fair Time of Disposition: 23:14
[2022-10-15 19:14] LABS: Basophils % (A) 1 %; Eosinophils # (A) 0.1 k/uL (0-0.7); Eosinophils % (A) 2 %; HCT 39.1 % (39.0-53.0); HGB 13.1 gm/dL (13.0-17.5); Lymphocytes # (A) 1.8 k/uL (1.0-4.8); Lymphocytes % (A) 39 %; MCH 29.7 pg (25.0-35.0); MCHC 33.5 g/dL (31.0-37.0); MCV 88.7 fL (80.0-100.0); Mean Platelet Volume 8.1; Monocytes # (A) 0.5 k/uL (0-1.0); Monocytes % (A) 11 %; Neutrophils % (A) 43 %; Platelet Count 187 k/uL (150-450); RBC 4.41 m/uL (4.30-5.90); RDW 13.5 % (11.5-15.5); WBC 4.7 k/uL (3.8-10.6)
[2022-10-15 19:36] LABS: Partial Thromboplastin Time 25.6 sec (22.0-30.0); Prothrombin Time 10.2 sec (9.0-12.0)
--- NOTE | 2022-10-15 19:50 | XR ---
EXAMINATION TYPE: XR chest 2V DATE OF EXAM: 10/15/2022 COMPARISON: NONE HISTORY: Chest pain TECHNIQUE: 2 views FINDINGS: Heart is normal. Lungs are clear. Diaphragm is normal. Bony thorax is intact. IMPRESSION: Normal chest. No change
--- NOTE | 2022-10-15 21:13 | US ---
EXAMINATION TYPE: US abdomen limited DATE OF EXAM: 10/15/2022 COMPARISON: NONE CLINICAL HISTORY: RUQ pain. RUQ pain, GB removed TECHNIQUE: Multiple sonographic images of the right upper quadrant are obtained. FINDINGS: EXAM MEASUREMENTS: Liver Length: 15.5 cm CBD: 0.9 cm Right Kidney: 11.6 x 5.6 x 5.3 cm AGENT TICKETING GATE NOTES: Pancreas: Obscured by bowel gas Liver: Heterogeneous, coarse echotexture Gallbladder: Surgically absent Evidence for sonographic Nichols's sign: No CBD: ? dilated for pt's age vs. normal Right Kidney: Parapelvic cyst= 2.6 x 1.8 x 2.2 cm IMPRESSION: There is right renal parapelvic cyst. Cholecystectomy. Bile ducts are normal postcholecystectomy. No discrete liver mass.
[2022-10-15 22:47] LABS: Albumin 3.7 g/dL (3.5-5.0); Calcium 8.8 mg/dL (8.4-10.2); Magnesium 2.3 mg/dL (1.6-2.3); Potassium 4.2 mmol/L (3.5-5.1); Total Bilirubin 0.4 mg/dL (0.2-1.3)
[2022-10-15] MEDS ORDERED: NALOXONE 0.4 MG/ML 1 ML VIAL IV PRN (23:12)
--- NOTE | 2022-10-16 04:39 | P.HPIM ---
History of Present Illness H&P Date: 10/16/22 The patient is a 71-year-old male with a PMH of mild systolic CHF, chronic kidney disease, COPD, hypertension, hyperlipidemia, and type II DM who presents to the emergency room with complaints of right lower chest pain. The pain started earlier today at around 9 PM, sharp in nature, intermittent, no npleuritic, nonradiating, 8 out of 10 of maximal intensity, and occurred prior to his first meal. The pain lasted throughout the day and gradually worsened. He took 4 tablets of 81 mg aspirin as well as 2 sublingual nitroglycerin prior to arrival at the emergency room. Reports that after receiving fentanyl, his pain improved significantly. Reports he is back at his baseline at the time of interview and no longer having chest discomfort. Patient had a cholecystectomy several years ago. Laboratory evaluation in the emergency room revealed a troponin of less than 0.012. EKG revealed sinus rhythm with first-degree AV block and APCs with a right bundle-branch block at 56 bpm. A right upper quadrant ultrasound was unremarkable. Chest x-ray was also unremarkable. Review of systems: Pertinent positives and negatives as discussed in HPI, a complete review of systems was performed and all other systems are negative. Physical examination: Vital signs reviewed General: non toxic, no distress, appears at stated age, obese Derm: no unusual rashes/lesions, warm Head: atraumatic, normocephalic, symmetric Eyes: EOMI, no lid lag, anicteric sclera, pupils equal round reactive to light ENT: Nose and ears atraumatic Neck: No cervical lymphadenopathy, trachea midline, supple Mouth: no lip lesion, mucus membranes moist Cardiovascular: S1S2 reg, no murmur, positive dorsalis pedis pulse bilateral, no edema Lungs: CTA bilateral, no rhonchi, no rales, no accessory muscle use Abdominal: soft, nontender to palpation, no guarding Ext: muscle strength 5 out of 5 in all 4 extremities grossly, no gross muscle atrophy, no contractures, Neuro: CN II-XI grossly intact, no gross focal neuro deficits Psych: Alert, oriented, appropriate affect Assessment: Atypical chest pain, rule out ACS Chronic conditions: Chronic kidney disease, hypertension, hyperlipidemia, type II DM, COPD Imaging: EKG revealed sinus rhythm with first-degree AV block and APCs with a right bundle-branch block at 56 bpm. A right upper quadrant ultrasound was unremarkable. Chest x-ray was also unremarkable. Data Review: Laboratory evaluation revealed a d-dimer of 0.71, creatinine 3.1 (at baseline), troponin less than 0.012. The WBC count was 4.7 with hemoglobin 13.1. Plan: Cardiology consulted Trend troponin Continue with aspirin Cardiac monitoring Insulin sliding scale and blood glucose monitoring DVT prophylaxis: Hepain subq The patient is admitted with an anticipated less than 2 midnight stay for evaluation of chest pain CODE STATUS: Full Code Discussed with: Patient Anticipated discharge date: in am Anticipated discharge place: Home Past Medical History Past Medical History: Coronary Artery Disease (CAD), Chest Pain / Angina, Heart Failure, Diabetes Mellitus, Hyperlipidemia, Hypertension, Myocardial Infarction (CT), Renal Disease, Sleep Apnea/CPAP/BIPAP Additional Past Medical History / Comment(s): 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, coronary artery disease, diabetes mellitus, hypertension, chronic renal failure, hyperlipidemia, JEN, pt has insulin pump Last Myocardial Infarction Date:: 03/04/14 History of Any Multi-Drug Resistant Organisms: None Reported Past Surgical History: Cholecystectomy, Heart Catheterization, Heart Catheterization With Stent, Orthopedic Surgery Additional Past Surgical History / Comment(s): shoulder, hemmroid, cardiac stent in june 2014, eye surgery, 3-4 cardiac stents Past Anesthesia/Blood Transfusion Reactions: No Reported Reaction Additional Past Anesthesia/Blood Transfusion Reaction / Comment(s): Never had a blood transfusion Date of Last Stent Placement:: 05/2014 Past Psychological History: Anxiety Smoking Status: Former smoker Past Alcohol Use History: None Reported Past Drug Use History: None Reported - Past Family History Father Family Medical History: Cancer Additional Family Medical History / Comment(s): bladder cancer Mother Family Medical History: Diabetes Mellitus Additional Family Medical History / Comment(s): Pancreatic CA Medications and Allergies Home Medications Medication Instructions Recorded Confirmed Type Cetirizine HCl 10 mg PO DAILY 03/03/14 10/15/22 History Nitroglycerin Sl Tabs [Nitrostat] 0.4 mg SL Q5M PRN 03/03/14 10/15/22 History Rosuvastatin Calcium [Crestor] 40 mg PO HS 03/03/14 10/15/22 History Ezetimibe [Zetia] 10 mg PO DAILY 05/19/16 10/15/22 History Ferrous Sulfate [Iron (65 MG 325 mg PO DAILY 05/19/16 10/15/22 History Elemental)] Ergocalciferol (Vitamin D2) 50,000 unit PO Q14D 05/28/18 10/15/22 History [Vitamin D2] Febuxostat [Uloric] 40 mg PO DAILY 05/28/18 10/15/22 History Insulin Aspart (For Pump) [NovoLOG 0.01 unit SQ-PUMP CONTINUOUS 05/28/18 10/15/22 History (For Pump)] Vitamin B Complex 1 cap PO DAILY 05/28/18 10/15/22 History Isosorbide Mononitrate ER [Imdur] 60 mg PO BID 07/05/18 10/15/22 History calcitrioL [Calcitriol] 0.25 mcg PO MOTUWETHFR 07/05/18 10/15/22 History Pramipexole [Mirapex] 0.5 mg PO BID 05/02/19 10/15/22 History Ranolazine [Ranexa] 500 mg PO BID 05/02/19 10/15/22 History Propranolol [Inderal] 20 mg PO DAILY 07/28/20 10/15/22 History Dulaglutide [Trulicity] 1.5 mg SQ MO 05/23/21 10/15/22 History Albuterol Inhaler [Ventolin Hfa 2 puff INHALATION RT-Q4H PRN 08/10/21 10/15/22 History Inhaler] Fluticasone Propion/Salmeterol 1 puff INHALATION RT-BID 08/10/21 10/15/22 History [Wixela 100-50 Inhub] hydrALAZINE HCL [Apresoline] 10 mg PO BID 10/16/21 10/15/22 History Furosemide [Lasix] 40 mg PO DAILY 30 Days #30 tablet 10/20/21 10/15/22 Rx Aspirin EC [Ecotrin Low Dose] 81 mg PO HS 02/21/22 10/15/22 History Cholecalciferol [Vitamin D3 (25 25 mcg PO DAILY 02/21/22 10/15/22 History Mcg = 1000 Iu)] Escitalopram [Lexapro] 10 mg PO DAILY 02/21/22 10/15/22 History Glucagon Emergency Kit 1 mg IM ONCE PRN 02/21/22 10/15/22 History Allergies Allergy/AdvReac Type Severity Reaction Status Date / Time atorvastatin [From Lipitor] AdvReac Unknown Verified 10/15/22 18:09 baclofen AdvReac Unknown Verified 10/15/22 18:09 Physical Exam Vitals: Vital Signs Temp Pulse Resp BP Pulse Ox 10/16/22 02:23 55 L 18 176/90 96 10/16/22 01:24 53 L 18 184/89 96 10/16/22 01:00 55 L 18 204/97 98 10/16/22 00:00 58 L 18 160/85 99 10/15/22 23:00 59 L 18 158/58 100 10/15/22 22:00 60 18 184/87 100 10/15/22 20:01 60 18 161/82 98 10/15/22 17:34 98.6 F 62 18 169/81 95 Intake and Output 10/15/22 10/15/22 10/16/22 14:59 22:59 06:59 Other: Weight 99.79 kg Results CBC & Chem 7: 10/15/22 19:04 10/15/22 19:04 Labs: Abnormal Lab Results - Last 24 Hours (Table) 10/15/22 10/15/22 Range/Units 19:04 19:04 D-Dimer 0.71 H (<0.60) mg/L FEU BUN 38 H (9-20) mg/dL Creatinine 3.10 H (0.66-1.25) mg/dL Glucose 129 H (74-99) mg/dL
[2022-10-16 06:49] LABS: Glucose,Whole Blood 154 mg/dL (70-110)
[2022-10-16] MEDS ORDERED: INSULIN ASPART (NovoLOG) 100 UNIT/ML VIAL SQ SCH (07:30)
[2022-10-16] MEDS ORDERED: HEPARIN SODIUM,PORCINE/PF 5,000 UNIT/0.5 ML SYRINGE SQ SCH (08:00)
[2022-10-16] MEDS ORDERED: SYMBICORT 80-4.5 MCG INHALER INHALATION SCH (08:00)
[2022-10-16 08:55] VITALS: BP 179/92; PULSE 59; RESP 16; TEMP 97.4
[2022-10-16] MEDS ORDERED: LORATADINE 10 MG TAB PO SCH (09:00)
[2022-10-16] MEDS ORDERED: PRAMIPEXOLE 0.5 MG TAB PO SCH (09:00)
[2022-10-16] MEDS ORDERED: EZETIMIBE 10 MG TAB PO SCH (09:00)
[2022-10-16] MEDS ORDERED: PROPRANOLOL 20 MG TAB PO SCH (09:00)
[2022-10-16] MEDS ORDERED: hydrALAZINE HCL 10 MG TAB PO SCH (09:00)
[2022-10-16] MEDS ORDERED: FUROSEMIDE 40 MG TAB PO SCH (09:00)
[2022-10-16] MEDS ORDERED: RANOLAZINE 500 MG TAB.ER.12H PO SCH (09:00)
[2022-10-16] MEDS ORDERED: ASPIRIN 81 MG PO SCH (09:00)
[2022-10-16] MEDS ORDERED: ESCITALOPRAM 10 MG TAB PO SCH (09:00)
[2022-10-16] MEDS ORDERED: ISOSORBIDE MONONITRATE ER 60 MG TAB.ER.24H PO SCH (09:00)
--- NOTE | 2022-10-16 11:00 | P.CRDCN ---
History of Present Illness History of present illness: HISTORY OF PRESENT ILLNESS: This is a 71-year-old male with a past medical history significant for chronic kidney disease, hypertension, hyperlipidemia, neuropathy, CAD with prior BARK SPUDDER of the circumflex with collaterals being treated medically, and mild ischemic cardio myopathy with recent improvement in EF. Patient follows in the office with myself. We have been asked to see the patient in consultation for chest pain. Patient has been having occasional episodes of twinges of chest pain in the office however has been having more recurrent episodes and more persistent or last few days. Episodes usually only lasting a few seconds up to the tops 30 seconds. He denies any associated nausea, diaphoresis or shortness of breath. Usually episodes occurring while he is sitting. No association with any exertion. He does have a history of BARK SPUDDER and have been treated medically second lele to see Marva. Creatinine stable at 3.1. EKG shows sinus rhythm with occasional PACs with right bundle branch block and no significant ST or T wave abnormalities. Troponin is normal 3. Pain is in the lower right rib. Abdominal US showed no acute process. REVIEW OF SYSTEMS: At the time of my exam: CONSTITUTIONAL: Denies fever or chills. HEENT: Denies blurred vision, vision changes, or eye pain. Denies hemoptysis CARDIOVASCULAR: +chest pain. Denies orthopnea. Denies PND. Denies palpitations RESPIRATORY: Denies shortness of breath. GASTROINTESTINAL: Denies abdominal pain. Denies nausea or vomiting. HEMATOLOGIC: Denies bleeding disorders. GENITOURINARY: Denies any blood in urine. SKIN: Denies pruitis. Denies rash. PHYSICAL EXAM: VITAL SIGNS: Reviewed. GENERAL: Well-developed in no acute distress. HEENT: Head is normocephalic. Pupils are equal, round. Sclerae anicteric. Mucous membranes of the mouth are moist. Neck supple. No JVD or thyromegaly LUNGS: Respirations even and unlabored. Lungs essentially clear to auscultation bilaterally. HEART: Regular rate and rhythm. S1 and S2 heard. Systolic murmur noted ABDOMEN: Soft. Nondistended. Nontender. EXTREMITIES: Normal range of motion. No clubbing or cyanosis. Peripheral pulses intact. Trace lower extremity edema NEUROLOGIC: Awake and alert. Oriented x 3. ASSESSMENT: Chest pain, atypical likely musculoskeletal Chronic diastolic heart failure, currently euvolemic Coronary artery disease with prior BARK SPUDDER of circumflex with collaterals being treated medically Chronic kidney disease Hypertension Hyperlipidemia Neuropathy PLAN: Patient's chest pain is atypical and only lasting a few seconds. Prior workup has been unrevealing and he has had somewhat similar episodes in the past. Episodes have been improving over night. Especially given his CKD we will continue with medical therapy. Patient has had recent workup which has been unrevealing and no further workup as an inpatient. Follow-up in office in 1-2 weeks. Past Medical History Past Medical History: Coronary Artery Disease (CAD), Chest Pain / Angina, Heart Failure, Diabetes Mellitus, Hyperlipidemia, Hypertension, Myocardial Infarction (ME), Renal Disease, Sleep Apnea/CPAP/BIPAP Additional Past Medical History / Comment(s): 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, coronary artery disease, diabetes mellitus, hypertension, chronic renal failure, hyperlipidemia, JEN, pt has insulin pump Last Myocardial Infarction Date:: 03/04/14 History of Any Multi-Drug Resistant Organisms: None Reported Past Surgical History: Cholecystectomy, Heart Catheterization, Heart Catheterization With Stent, Orthopedic Surgery Additional Past Surgical History / Comment(s): shoulder, hemmroid, cardiac stent in june 2014, eye surgery, 3-4 cardiac stents Past Anesthesia/Blood Transfusion Reactions: No Reported Reaction Additional Past Anesthesia/Blood Transfusion Reaction / Comment(s): Never had a blood transfusion Date of Last Stent Placement:: 05/2014 Past Psychological History: Anxiety Additional Psychological History / Comment(s): Shopping and crowds bother patient. Smoking Status: Former smoker Past Alcohol Use History: None Reported Additional Past Alcohol Use History / Comment(s): pt. quit smoking in 1980 Past Drug Use History: None Reported - Past Family History Father Family Medical History: Cancer Additional Family Medical History / Comment(s): bladder cancer Mother Family Medical History: Diabetes Mellitus Additional Family Medical History / Comment(s): Pancreatic CA Medications and Allergies Home Medications Medication Instructions Recorded Confirmed Type Cetirizine HCl 10 mg PO DAILY 03/03/14 10/15/22 History Nitroglycerin Sl Tabs [Nitrostat] 0.4 mg SL Q5M PRN 03/03/14 10/15/22 History Rosuvastatin Calcium [Crestor] 40 mg PO HS 03/03/14 10/15/22 History Ezetimibe [Zetia] 10 mg PO DAILY 05/19/16 10/15/22 History Ferrous Sulfate [Iron (65 MG 325 mg PO DAILY 05/19/16 10/15/22 History Elemental)] Ergocalciferol (Vitamin D2) 50,000 unit PO Q14D 05/28/18 10/15/22 History [Vitamin D2] Febuxostat [Uloric] 40 mg PO DAILY 05/28/18 10/15/22 History Insulin Aspart (For Pump) [NovoLOG 0.01 unit SQ-PUMP CONTINUOUS 05/28/18 10/15/22 History (For Pump)] Vitamin B Complex 1 cap PO DAILY 05/28/18 10/15/22 History Isosorbide Mononitrate ER [Imdur] 60 mg PO BID 07/05/18 10/15/22 History calcitrioL [Calcitriol] 0.25 mcg PO MOTUWETHFR 07/05/18 10/15/22 History Pramipexole [Mirapex] 0.5 mg PO BID 05/02/19 10/15/22 History Ranolazine [Ranexa] 500 mg PO BID 05/02/19 10/15/22 History Propranolol [Inderal] 20 mg PO DAILY 07/28/20 10/15/22 History Dulaglutide [Trulicity] 1.5 mg SQ MO 05/23/21 10/15/22 History Albuterol Inhaler [Ventolin Hfa 2 puff INHALATION RT-Q4H PRN 08/10/21 10/15/22 History Inhaler] Fluticasone Propion/Salmeterol 1 puff INHALATION RT-BID 08/10/21 10/15/22 History [Wixela 100-50 Inhub] hydrALAZINE HCL [Apresoline] 10 mg PO BID 10/16/21 10/15/22 History Furosemide [Lasix] 40 mg PO DAILY 30 Days #30 tablet 10/20/21 10/15/22 Rx Aspirin EC [Ecotrin Low Dose] 81 mg PO HS 02/21/22 10/15/22 History Cholecalciferol [Vitamin D3 (25 25 mcg PO DAILY 02/21/22 10/15/22 History Mcg = 1000 Iu)] Escitalopram [Lexapro] 10 mg PO DAILY 02/21/22 10/15/22 History Glucagon Emergency Kit 1 mg IM ONCE PRN 02/21/22 10/15/22 History Allergies Allergy/AdvReac Type Severity Reaction Status Date / Time atorvastatin [From Lipitor] AdvReac Unknown Verified 10/15/22 18:09 baclofen AdvReac Unknown Verified 10/15/22 18:09 Physical Exam Vitals: Vital Signs Temp Pulse Pulse Resp BP BP Pulse Ox 10/16/22 08:20 97.4 F L 59 L 16 179/92 100 10/16/22 07:21 97.8 F 10/16/22 06:58 57 L 18 178/83 96 10/16/22 05:53 55 L 16 166/81 98 10/16/22 05:21 54 L 16 149/97 95 10/16/22 02:23 55 L 18 176/90 96 10/16/22 01:24 53 L 18 184/89 96 10/16/22 01:00 55 L 18 204/97 98 10/16/22 00:00 58 L 18 160/85 99 10/15/22 23:00 59 L 18 158/58 100 10/15/22 22:00 60 18 184/87 100 10/15/22 20:01 60 18 161/82 98 10/15/22 17:34 98.6 F 62 18 169/81 95 Intake and Output 10/15/22 10/16/22 10/16/22 22:59 06:59 14:59 Other: Weight 99.79 kg 99.79 kg Results 10/15/22 19:04 10/15/22 19:04 Cardiac Enzymes 10/15/22 10/15/22 10/15/22 Range/Units 19:04 19:04 23:26 AST 24 (17-59) U/L Troponin I <0.012 <0.012 (0.000-0.034) ng/mL 10/16/22 Range/Units 04:21 AST (17-59) U/L Troponin I <0.012 (0.000-0.034) ng/mL Coagulation 10/15/22 Range/Units 19:04 PT 10.2 (9.0-12.0) sec APTT 25.6 (22.0-30.0) sec CBC 10/15/22 Range/Units 19:04 WBC 4.7 (3.8-10.6) k/uL RBC 4.41 (4.30-5.90) m/uL Hgb 13.1 (13.0-17.5) gm/dL Hct 39.1 (39.0-53.0) % Plt Count 187 (150-450) k/uL Comprehensive Metabolic Panel 10/15/22 Range/Units 19:04 Sodium 138 (137-145) mmol/L Potassium 4.2 (3.5-5.1) mmol/L Chloride 102 (98-107) mmol/L Carbon Dioxide 25 (22-30) mmol/L BUN 38 H (9-20) mg/dL Creatinine 3.10 H (0.66-1.25) mg/dL Glucose 129 H (74-99) mg/dL Calcium 8.8 (8.4-10.2) mg/dL AST 24 (17-59) U/L ALT 20 (4-49) U/L Alkaline Phosphatase 101 (38-126) U/L Total Protein 7.0 (6.3-8.2) g/dL Albumin 3.7 (3.5-5.0) g/dL Current Medications Generic Name Dose Route Start Last Admin Trade Name Freq PRN Reason Stop Dose Admin Aspirin 81 mg 10/16/22 09:00 Aspirin 81 Mg PO DAILY REPLACED BY [facility] Budesonide/Formoterol Fumarate 2 puff 10/16/22 08:00 10/16/22 09:08 Symbicort 80-4.5 Mcg Inhaler INHALATION Not Given RT-BID REPLACED BY [facility] Ezetimibe 10 mg 10/16/22 09:00 Ezetimibe 10 Mg Tab PO DAILY REPLACED BY [facility] Escitalopram Oxalate 10 mg 10/16/22 09:00 Escitalopram 10 Mg Tab PO DAILY REPLACED BY [facility] Furosemide 40 mg 10/16/22 09:00 Furosemide 40 Mg Tab PO DAILY REPLACED BY [facility] Heparin Sodium (Porcine) 5,000 unit 10/16/22 08:00 Heparin Sodium,Porcine/Pf 5,000 Unit/0.5 Ml Syringe SQ Q8HR REPLACED BY [facility] Hydralazine HCl 10 mg 10/16/22 09:00 10/16/22 01:37 Hydralazine Hcl 10 Mg Tab PO 10 mg BID JOEY Administration Insulin Aspart 0 unit 10/16/22 07:30 10/16/22 07:19 Insulin Aspart (Novolog) 100 Unit/Ml Vial SQ 3 unit ACHS REPLACED BY [facility] Administration Protocol Insulin Detemir 10 unit 10/16/22 21:00 Insulin Detemir (Levemir) 100 Unit/Ml Syr SQ HS REPLACED BY [facility] Isosorbide Mononitrate 60 mg 10/16/22 09:00 Isosorbide Mononitrate Er 60 Mg Tab.Er.24h PO BID JOEY Loratadine 10 mg 10/16/22 09:00 Loratadine 10 Mg Tab PO DAILY JOEY Naloxone HCl 0.2 mg 10/15/22 23:12 Naloxone 0.4 Mg/Ml 1 Ml Vial IV Q2M PRN Opioid Reversal Non Formulary Drug ( 1 each 10/16/22 21:00 Rosuvastatin 40mg) PO HS JOEY Pramipexole Dihydrochloride 0.5 mg 10/16/22 09:00 Pramipexole 0.5 Mg Tab PO BID REPLACED BY [facility] Propranolol HCl 20 mg 10/16/22 09:00 Propranolol 20 Mg Tab PO DAILY REPLACED BY [facility] Ranolazine 500 mg 10/16/22 09:00 Ranolazine 500 Mg Tab.Er.12h PO BID REPLACED BY [facility] Intake and Output 10/15/22 10/16/22 10/16/22 22:59 06:59 14:59 Other: Weight 99.79 kg 99.79 kg Patient Weight 10/17/22 06:59 Weight 99.79 kg 10/15/22 19:04 10/15/22 19:04
--- NOTE | 2022-10-16 13:15 | P.DS ---
Providers Date of admission: 10/15/22 23:12 Expected date of discharge: 10/16/22 Attending physician: Kristen Becerra MD Consults: 10/15/22 23:12 Consult Physician Urgent Consulting Provider: [facility] Consult Reason/Comments: chest pain Do you want consulting provider notified?: Yes Primary care physician: Marlon Valentino MD Hospital Course: The patient is a 71-year-old male with a PMH of mild systolic CHF, chronic kidney disease, COPD, hypertension, hyperlipidemia, and type II DM who presents to the emergency room with complaints of right lower chest pain. The pain started earlier today at around 9 PM, sharp in nature, intermittent, nonpleuritic, nonradiating, 8 out of 10 of maximal intensity, and occurred prior to his first meal. The pain lasted throughout the day and gradually worsened. He took 4 tablets of 81 mg aspirin as well as 2 sublingual nitroglycerin prior to arrival at the emergency room. Reports that after receiving fentanyl, his pain improved significantly. Reports he is back at his baseline at the time of interview and no longer having chest discomfort. Patient had a cholecystectomy several years ago. Laboratory evaluation in the emergency room revealed a troponin of less than 0.012. EKG revealed sinus rhythm with first-degree AV block and APCs with a right bundle-branch block at 56 bpm. A right upper quadrant ultrasound was unremarkable. Chest x-ray was also unremarkable. Troponins were trended and ACS was ruled out. Cardiology was consulted and recommended conservative management included the patient for discharge. Patient was seen and examined. No acute events overnight. Patient continues to report right-sided chest pain, sharp and stabbing in nature. Pain is not aggravated with movement or with deep inspiration. Pertinent studies include chest x-ray, abdominal ultrasound. General: non toxic, no distress, appears at stated age, obese Derm: no unusual rashes/lesions, warm Head: atraumatic, normocephalic, symmetric Eyes: EOMI, no lid lag, anicteric sclera ENT: Nose and ears atraumatic Neck: No cervical lymphadenopathy, trachea midline, supple Mouth: no lip lesion, mucus membranes moist Cardiovascular: good distal perfusion in all 4 extremities. Lungs: no accessory muscle use Ext: muscle strength 5 out of 5 in all 4 extremities grossly, no gross muscle atrophy, no contractures, Neuro: no gross focal neuro deficits Psych: Alert, oriented, appropriate affect Discharge diagnosis: Atypical chest pain, rule out ACS Chronic conditions: Chronic kidney disease, hypertension, hyperlipidemia, type II DM, COPD Patient Condition at Discharge: Stable Plan - Discharge Summary Discharge Rx Participant: Yes New Discharge Prescriptions: Continue Rosuvastatin Calcium [Crestor] 40 mg PO HS Cetirizine HCl 10 mg PO DAILY Nitroglycerin Sl Tabs [Nitrostat] 0.4 mg SL Q5M PRN PRN Reason: Chest Pain Ezetimibe [Zetia] 10 mg PO DAILY Ferrous Sulfate [Iron (65 MG Elemental)] 325 mg PO DAILY Febuxostat [Uloric] 40 mg PO DAILY Vitamin B Complex 1 cap PO DAILY Ergocalciferol (Vitamin D2) [Vitamin D2] 50,000 unit PO Q14D Insulin Aspart (For Pump) [NovoLOG (For Pump)] 0.01 unit SQ-PUMP CONTINUOUS calcitrioL [Calcitriol] 0.25 mcg PO MOTUWETHFR Isosorbide Mononitrate ER [Imdur] 60 mg PO BID Pramipexole [Mirapex] 0.5 mg PO BID Ranolazine [Ranexa] 500 mg PO BID Propranolol [Inderal] 20 mg PO DAILY Albuterol Inhaler [Ventolin Hfa Inhaler] 2 puff INHALATION RT-Q4H PRN PRN Reason: Shortness Of Breath Fluticasone Propion/Salmeterol [Wixela 100-50 Inhub] 1 puff INHALATION RT-BID Furosemide [Lasix] 40 mg PO DAILY 30 Days #30 tablet Glucagon Emergency Kit 1 mg IM ONCE PRN PRN Reason: Hypoglycemia Cholecalciferol [Vitamin D3 (25 Mcg = 1000 Iu)] 25 mcg PO DAILY Escitalopram [Lexapro] 10 mg PO DAILY Dulaglutide [Trulicity] 1.5 mg SQ MO hydrALAZINE HCL [Apresoline] 10 mg PO BID Aspirin EC [Ecotrin Low Dose] 81 mg PO HS Discharge Medication List Cetirizine HCl 10 mg PO DAILY 03/03/14 [History] Nitroglycerin Sl Tabs [Nitrostat] 0.4 mg SL Q5M PRN 03/03/14 [History] Rosuvastatin Calcium [Crestor] 40 mg PO HS 03/03/14 [History] Ezetimibe [Zetia] 10 mg PO DAILY 05/19/16 [History] Ferrous Sulfate [Iron (65 MG Elemental)] 325 mg PO DAILY 05/19/16 [History] Ergocalciferol (Vitamin D2) [Vitamin D2] 50,000 unit PO Q14D 05/28/18 [History] Febuxostat [Uloric] 40 mg PO DAILY 05/28/18 [History] Insulin Aspart (For Pump) [NovoLOG (For Pump)] 0.01 unit SQ-PUMP CONTINUOUS 05/28/18 [History] Vitamin B Complex 1 cap PO DAILY 05/28/18 [History] Isosorbide Mononitrate ER [Imdur] 60 mg PO BID 07/05/18 [History] calcitrioL [Calcitriol] 0.25 mcg PO MOTUWETHFR 07/05/18 [History] Pramipexole [Mirapex] 0.5 mg PO BID 05/02/19 [History] Ranolazine [Ranexa] 500 mg PO BID 05/02/19 [History] Propranolol [Inderal] 20 mg PO DAILY 07/28/20 [History] Dulaglutide [Trulicity] 1.5 mg SQ MO 05/23/21 [History] Albuterol Inhaler [Ventolin Hfa Inhaler] 2 puff INHALATION RT-Q4H PRN 08/10/21 [History] Fluticasone Propion/Salmeterol [Wixela 100-50 Inhub] 1 puff INHALATION RT-BID 08/10/21 [History] hydrALAZINE HCL [Apresoline] 10 mg PO BID 10/16/21 [History] Furosemide [Lasix] 40 mg PO DAILY 30 Days #30 tablet 10/20/21 [Rx] Aspirin EC [Ecotrin Low Dose] 81 mg PO HS 02/21/22 [History] Cholecalciferol [Vitamin D3 (25 Mcg = 1000 Iu)] 25 mcg PO DAILY 02/21/22 [History] Escitalopram [Lexapro] 10 mg PO DAILY 02/21/22 [History] Glucagon Emergency Kit 1 mg IM ONCE PRN 02/21/22 [History] Follow up Appointment(s)/Referral(s): Shiraz Castle DO [STAFF PHYSICIAN] - 1 Week Marlon Valentino MD [Primary Care Provider] - 1-2 days Patient Instructions/Handouts: Chest Pain (GEN) Discharge Disposition: HOME SELF-CARE
[2022-10-16] MEDS ORDERED: ROSUVASTATIN 40 MG PO SCH (21:00)
[2022-10-16] MEDS ORDERED: ATORVASTATIN 20 MG TAB PO SCH (21:00)
[2022-10-16] MEDS ORDERED: INSULIN DETEMIR (LEVEMIR) 100 UNIT/ML SYR SQ SCH (21:00)
== END 2022-10-16 13:33 | disposition home or self-care (01) ==
LOC: EC 17:29 → 6NMEDSUR 23:12
PROVIDERS: ADMIT Internal Medicine; ATTEND Internal Medicine
DX: R07.89 Other chest pain (principal); I13.0 Hypertensive heart and chronic kidney disease with heart failure and stage 1 through stage 4 chronic kidney disease, or unspecified chronic kidney disease; I50.22 Chronic systolic (congestive) heart failure; N18.9 Chronic kidney disease, unspecified; E11.22 Type 2 diabetes mellitus with diabetic chronic kidney disease; E11.40 Type 2 diabetes mellitus with diabetic neuropathy, unspecified; E78.5 Hyperlipidemia, unspecified; J44.9 Chronic obstructive pulmonary disease, unspecified; Z90.49 Acquired absence of other specified parts of digestive tract; I44.0 Atrioventricular block, first degree; Z79.4 Long term (current) use of insulin; Z96.41 Presence of insulin pump (external) (internal); Z79.85 Long-term (current) use of injectable non-insulin antidiabetic drugs; Z79.899 Other long term (current) drug therapy; I45.10 Unspecified right bundle-branch block; I25.2 Old myocardial infarction; I25.10 Atherosclerotic heart disease of native coronary artery without angina pectoris; G47.33 Obstructive sleep apnea (adult) (pediatric); Z95.5 Presence of coronary angioplasty implant and graft; F41.9 Anxiety disorder, unspecified; Z87.891 Personal history of nicotine dependence; Z80.52 Family history of malignant neoplasm of bladder; Z80.0 Family history of malignant neoplasm of digestive organs; Z83.3 Family history of diabetes mellitus; Z79.82 Long term (current) use of aspirin; Z88.8 Allergy status to other drugs, medicaments and biological substances
CPT/HCPCS: 99285; 36415; 93005; 85379; 80053; 82150; 83690; 83735; 84484 ×2; 85025; 85610; 85730; 71046; 76705; G0378 ×2

== ENCOUNTER 2023-01-01 11:42 | Observation (INO) | payer MEDICARE ==
[2023-01-01 12:24] LABS: Basophils % (A) 1 %; Eosinophils # (A) 0.1 k/uL (0-0.7); Eosinophils % (A) 2 %; HCT 39.9 % (39.0-53.0); HGB 13.3 gm/dL (13.0-17.5); Lymphocytes # (A) 1.3 k/uL (1.0-4.8); Lymphocytes % (A) 33 %; MCH 30.1 pg (25.0-35.0); MCHC 33.3 g/dL (31.0-37.0); MCV 90.5 fL (80.0-100.0); Mean Platelet Volume 8.4; Monocytes # (A) 0.3 k/uL (0-1.0); Monocytes % (A) 8 %; Neutrophils # (A) 2.1 k/uL (1.3-7.7); Neutrophils % (A) 54 %; Platelet Count 188 k/uL (150-450); RBC 4.41 m/uL (4.30-5.90); RDW 12.9 % (11.5-15.5); WBC 3.9 k/uL (3.8-10.6)
--- NOTE | 2023-01-01 12:38 | ED ---
Chest Pain HPI - General Chief Complaint: Chest Pain Stated Complaint: chest pain Time Seen by Provider: 01/01/23 12:01 Source: patient Mode of arrival: ambulatory Limitations: no limitations - History of Present Illness Initial Comments: 72-year-old male past medical history of coronary artery disease, hypertension, diabetes, congestive heart failure who presents to the emergency department reporting chest pain. at bedside helps provide history. States that since the patient has been complaining of worsening exertional dyspnea. Today the patient began having chest pain approximately one hour prior to hospital arrival. He does have nitro at home and took one which seemed to alleviate his symptoms. On the ride to the hospital the patient had chest pain again and took a second nitro. also gave him 4 baby aspirins. Denies chest pain at this time. Was substernal without radiation. He has had an echo in the last [address] Castle. Denies any lower externally swelling. Patient not on blood thinner. No other alleviating, precipitating or modifying factors - Related Data Home Medications Medication Instructions Recorded Confirmed Cetirizine HCl 10 mg PO DAILY 03/03/14 01/01/23 Nitroglycerin Sl Tabs [Nitrostat] 0.4 mg SL Q5M PRN 03/03/14 01/01/23 Rosuvastatin Calcium [Crestor] 40 mg PO HS 03/03/14 01/01/23 Ezetimibe [Zetia] 10 mg PO DAILY 05/19/16 01/01/23 Ferrous Sulfate [Iron (65 MG 325 mg PO DAILY 05/19/16 01/01/23 Elemental)] Ergocalciferol (Vitamin D2) 50,000 unit PO Q14D 05/28/18 01/01/23 [Vitamin D2] Febuxostat [Uloric] 40 mg PO DAILY 05/28/18 01/01/23 Insulin Aspart (For Pump) [NovoLOG 0.01 unit SQ-PUMP CONTINUOUS MDD 05/28/18 01/01/23 (For Pump)] 60 UNITS Vitamin B Complex 1 cap PO DAILY 05/28/18 01/01/23 Isosorbide Mononitrate ER [Imdur] 60 mg PO BID 07/05/18 01/01/23 calcitrioL [Calcitriol] 0.25 mcg PO DAILY 07/05/18 01/01/23 Pramipexole [Mirapex] 0.5 mg PO HS 05/02/19 01/01/23 Ranolazine [Ranexa] 500 mg PO BID 05/02/19 01/01/23 Propranolol [Inderal] 20 mg PO DAILY 07/28/20 01/01/23 Dulaglutide [Trulicity] 1.5 mg SQ VALLECILLO 05/23/21 01/01/23 Albuterol Inhaler [Ventolin Hfa 2 puff INHALATION RT-Q4H PRN 08/10/21 01/01/23 Inhaler] Fluticasone Propion/Salmeterol 1 puff INHALATION RT-BID PRN 08/10/21 01/01/23 [Wixela 100-50 Inhub] hydrALAZINE HCL [Apresoline] 10 mg PO BID 10/16/21 01/01/23 Aspirin EC [Ecotrin Low Dose] 81 mg PO HS 02/21/22 01/01/23 Cholecalciferol [Vitamin D3 (25 25 mcg PO DAILY 02/21/22 01/01/23 Mcg = 1000 Iu)] Glucagon Emergency Kit 1 mg IM ONCE PRN 02/21/22 01/01/23 Escitalopram [Lexapro] 10 mg PO DAILY 01/01/23 01/01/23 Previous Rx's Medication Instructions Recorded Furosemide [Lasix] 40 mg PO DAILY 30 Days #30 tablet 10/20/21 Allergies Allergy/AdvReac Type Severity Reaction Status Date / Time atorvastatin [From Lipitor] AdvReac Unknown Verified 01/01/23 14:51 baclofen AdvReac Unknown Verified 01/01/23 14:51 Review of Systems ROS Statement: Those systems with pertinent positive or pertinent negative responses have been documented in the HPI. ROS Other: All systems not noted in ROS Statement are negative. Past Medical History Past Medical History: Coronary Artery Disease (CAD), Chest Pain / Angina, Heart Failure, Diabetes Mellitus, Hyperlipidemia, Hypertension, Myocardial Infarction ([place]), Renal Disease, Sleep Apnea/CPAP/BIPAP Additional Past Medical History / Comment(s): 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, coronary artery disease, diabetes mellitus, hypertension, chronic renal failure, hyperlipidemia, JEN, pt has insulin pump Last Myocardial Infarction Date:: 03/04/14 History of Any Multi-Drug Resistant Organisms: None Reported Past Surgical History: Cholecystectomy, Heart Catheterization, Heart Catheterization With Stent, Orthopedic Surgery Additional Past Surgical History / Comment(s): shoulder, hemmroid, cardiac stent in june 2014, eye surgery, 3-4 cardiac stents Past Anesthesia/Blood Transfusion Reactions: No Reported Reaction Additional Past Anesthesia/Blood Transfusion Reaction / Comment(s): Never had a blood transfusion Date of Last Stent Placement:: 05/2014 Past Psychological History: Anxiety Smoking Status: Former smoker Past Alcohol Use History: None Reported Past Drug Use History: None Reported - Past Family History Father Family Medical History: Cancer Additional Family Medical History / Comment(s): bladder cancer Mother Family Medical History: Diabetes Mellitus Additional Family Medical History / Comment(s): Pancreatic [place] General Exam Limitations: no limitations General appearance: alert, in no apparent distress Head exam: Present: atraumatic, normocephalic, normal inspection Eye exam: Present: normal appearance, PERRL, EOMI. Absent: scleral icterus, conjunctival injection, periorbital swelling ENT exam: Present: normal exam, mucous membranes moist Neck exam: Present: normal inspection. Absent: tenderness, meningismus, lymphadenopathy Respiratory exam: Present: normal lung sounds bilaterally. Absent: respiratory distress, wheezes, rales, rhonchi, stridor Cardiovascular Exam: Present: regular rate, normal rhythm, normal heart sounds. Absent: systolic murmur, diastolic murmur, rubs, gallop, clicks GI/Abdominal exam: Present: soft, normal bowel sounds. Absent: distended, tenderness, guarding, rebound, rigid Extremities exam: Present: normal inspection, full ROM, normal capillary refill. Absent: tenderness, pedal edema, joint swelling, calf tenderness Back exam: Present: normal inspection Neurological exam: Present: alert, oriented X3, CN II-XII intact Psychiatric exam: Present: normal affect, normal mood Skin exam: Present: warm, dry, intact, normal color. Absent: rash Course Vital Signs 01/01/23 01/01/23 11:44 14:28 Temperature 98 F 97.5 F L Pulse Rate 65 57 L Respiratory 20 17 Rate Blood Pressure 184/81 191/97 O2 Sat by Pulse 98 100 Oximetry Chest Pain MDM - MDM Was pt. sent in by a medical professional or institution (, PA, SUPERVISOR SHIPPING, urgent care, hospital, or custodial...) When possible be specific @ -No Did you speak to anyone other than the patient for history (EMS, parent, family, police, friend...)? What history was obtained from this source @ - provides history Did you review nursing and triage notes (agree or disagree)? Why? @ -I reviewed and agree with nursing and triage notes Were old charts reviewed (outside hosp., previous admission, EMS record, old EKG, old radiological studies, urgent care reports/EKG's, custodial records)? Report findings @ -No old charts were reviewed Differential Diagnosis (chest pain, altered mental status, abdominal pain women, abdominal pain men, vaginal bleeding, weakness, fever, dyspnea, syncope, headache, dizziness, GI bleed, back pain, seizure, CVA, palpatations, mental health, musculoskeletal)? @ -Differential Chest Pain: Stable Angina, Unstable Angina, STEMI, NSTEMI Aortic Dissection, Pneumothorax, Musculoskeletal, Esophageal Spasm GERD, Cholecystitis, Pancreatitis, Zoster, this is not meant to be an all-inclusive list. EKG interpreted by me (3pts min.). @ -EKG interpreted by me and demonstrates sinus rhythm with a rate of 63. MN interval 272. QRS 144. QTC of 476. First-degree block. Right bundle branch block, left anterior fascicular block, no ST segment elevation X-rays interpreted by me (1pt min.). @ -Yes and demonstrates no acute process CT interpreted by me (1pt min.). @ -None done U/S interpreted by me (1pt. min.). @ -None done What testing was considered but not performed or refused? (CT, X-rays, U/S, labs)? Why? @ -None What meds were considered but not given or refused? Why? @ -None Did you discuss the management of the patient with other professionals (professionals i.e. , PA, SUPERVISOR SHIPPING, lab, RT, psych nurse, director of social media marketing, export administrator, teacher, child support officer, case hardener)? Give summary @ -I spoke with Dr. Pang to admit the patient Was smoking cessation discussed for >3mins.? @ -No Was critical care preformed (if so, how long)? @ -35 minutes for management of suspected unstable angina with heparin drip Were there social determinants of health that impacted care today? How? (Homelessness, low income, unemployed, alcoholism, drug addiction, transportation, low edu. Level, literacy, decrease access to med. care, custodial, rehab)? @ -No Was there de-escalation of care discussed even if they declined (Discuss DNR or withdrawal of care, Hospice)? DNR status @ -No What co-morbidities impacted this encounter? (DM, HTN, Smoking, COPD, CAD, Cancer, CVA, ARF, Chemo, Hep., AIDS, mental health diagnosis, sleep apnea, morbid obesity)? @ -Atherosclerotic coronary artery disease with stent placement Was patient admitted / discharged? Hospital course, mention meds given and rout e, prescriptions, significant lab abnormalities, going to OR and other pertinent info. @ -Upon arrival patient was placed into room 5. A thorough history and physical exam was performed. He is placed on continuous pulse ox and cardiac monitoring. 12-lead EKG is obtained which demonstrates no acute ST segment elevation. Laboratory studies are conducted and reviewed. Troponin is negative. Chest x-ray demonstrates no acute process. Due to patient's significant cardiac history with concerns for unstable angina, I did recommend admission. Patient will be heparinized. He did take 4 chewable aspirins before coming to the hospital. Cardiology will be counseled and. Patient was agreeable to this plan and admitted to the floor in stable condition Undiagnosed new problem with uncertain prognosis? @ -Yes Drug Therapy requiring intensive monitoring for toxicity (Heparin, Nitro, Insulin, Cardizem)? @ -Heparin Were any procedures done? @ -No Diagnosis/symptom? @ -Acute chest pain, unstable angina, history of coronary disease Acute, or Chronic, or Acute on Chronic? @ -Acute Uncomplicated (without systemic symptoms) or Complicated (systemic symptoms)? @ -Complicated Side effects of treatment? @ -Bleeding Exacerbation, Progression, or Severe Exacerbation? @ -No Poses a threat to life or bodily function? How? (Chest pain, [place], [place], pneumonia, PE, COPD, DKA, ARF, appy, cholecystitis, CVA, Diverticulitis, Homicidal, Suicidal, threat to staff... and all critical care pts) @ -Yes chest pain with concern for unstable angina. Patient could deteriorate to acute a cardiac event Disposition Clinical Impression: Chest pain Disposition: ADMITTED IP TO THIS HOSP Condition: Stable Is patient prescribed a controlled substance at d/c from ED?: No Time of Disposition: : Decision to Admit Reason: Admit from EC Decision Date: 01/01/23 Decision Time: 13:23
--- NOTE | 2023-01-01 12:40 | XR ---
EXAMINATION TYPE: XR chest 2V DATE OF EXAM: 01/01/2023 COMPARISON: 10/15/22 HISTORY: Shortness of breath TECHNIQUE: Frontal and lateral views of the chest are obtained. FINDINGS: Scattered senescent parenchymal changes noted. Hyperinflation compatible with COPD. No evidence for infiltrate. No evidence for atelectasis. Heart size is stable. Mediastinal structures are stable and grossly unremarkable. No evidence for hilar prominence. Degenerative changes dorsal spine. IMPRESSION: 1. No evidence for acute pulmonary disease.
[2023-01-01 12:44] LABS: Albumin 3.6 g/dL (3.5-5.0); Calcium 8.5 mg/dL (8.4-10.2); Magnesium 2.1 mg/dL (1.6-2.3); Potassium 4.3 mmol/L (3.5-5.1); Total Bilirubin 0.4 mg/dL (0.2-1.3); Total Protein 6.9 g/dL (6.3-8.2)
[2023-01-01 12:47] LABS: Partial Thromboplastin Time 24.8 sec (22.0-30.0); Prothrombin Time 10.5 sec (9.0-12.0)
[2023-01-01] MEDS ORDERED: NALOXONE 0.4 MG/ML 1 ML VIAL IV PRN (13:56)
[2023-01-01] MEDS ORDERED: HEPARIN SODIUM 1,000 UN/ML (10ML VL) IV PRN (14:02)
[2023-01-01] MEDS ORDERED: HEPARIN SODIUM 1,000 UN/ML (10ML VL) IV ONE (14:02)
[2023-01-01] MEDS: HEPARIN SOD,PORK IN 0.45% NACL 25,000 UNIT in 0.45% NACL 1 250ML.BAG IV SCH (14:39)
[2023-01-01] MEDS ORDERED: hydrALAZINE HCL 20 MG/ML 1 ML VIAL IVP STA ×3 (14:58→18:09)
[2023-01-01] MEDS ORDERED: DEXTROSE 50% SYRINGE 50 ML IVP PRN ×2 (15:29)
--- NOTE | 2023-01-01 15:30 | P.HPIM ---
History of Present Illness H&P Date: 01/01/23 History of Presenting Illness: Patient is a very pleasant 72-year-old male with a past medical history of diabetes mellitus on insulin pump, stage IV chronic kidney disease, CAD with previous stenting x4, hypertension, hyperlipidemia, and obstructive sleep apnea no longer using CPAP nightly. Patient presented to the emergency department with a chief complaint of chest pain accompanied by exertional dyspnea, fatigue, and lower extremity edema. Patient's at bedside reports this began approximately one week ago and states that she began noticing her having difficulty just walking up one flight of steps from the basement and needing to sit down and take a break. She states in addition to this he had significant increase in his lower extremity edema. Patient reports this continued for approximately one week and then he felt better for 2 days and then began having pain to left anterior chest. Patient reports this pain waxes and wanes and he first noticed at rest. He states the pain is described as a "sharp, dull, heavy sensation." He denies pain radiating anywhere he states that the pain stays to his left anterior chest. He denies any recent infection or exposure to known contacts, fevers, chills, nausea, vomiting, diaphoresis, palpitations, shortness of breath at rest, or urinary complaints. He underwent full evaluation in the emergency department. Labs completed and reviewed. CBC unremarkable. Coagulation profile normal findings. BMP consistent with stage IV CKD with BUN of 48, creatinine 3.32, and GFR of 17 with baseline creatinine around 3. Glucose elevated at 237. Liver profile unremarkable. Troponin normal findings at less than 0.012. EKG completed showing normal sinus rhythm at 63 bpm with a right bundle branch block upon personal review and interpretation. Chest x-ray completed in radiology report reviewed negative for acute cardiopulmonary process. Patient started on heparin infusion at 9.6 units/kg/hour. Discussed history, clinical findings, laboratory analysis, and imaging results in detail with the ED physician. Patient admitted under our services to observation unit with telemetry. Consult placed to cardiology. Echocardiogram completed 10/17/21 reviewed showing a preserved EF of 50-55%. Review of systems: Pertinent positives and negatives as discussed in HPI, a complete review of systems was performed and all other systems are negative. Physical exam: Vital signs reviewed and stable. General: Nontoxic, no distress and appears stated age. Derm: Skin warm and dry, normal coloration for ethnicity. Head: Atraumatic, normocephalic and symmetric. Eyes: EOMs intact, no lid lag, and anicteric sclera Mouth: no lip lesions, mucus membranes moist Cardiovascular: regular rate and rhythm with normal S1S2, no murmur, positive posterior tibial pulses bilaterally, and cap refill < 2 seconds. Lungs: Respirations even, regular, and unlabored on room air. Lungs CTA bilaterally, no rhonchi, no rales, no wheezing, and no accessory muscle usage. Abdominal: soft, nontender to palpation, no guarding, no appreciable organomegaly Ext: ROM intact. No gross muscle atrophy, 2+ bilateral lower extremity pitting edema of ankles and feet, no contractures Neuro: Speech clear, face symmetrical and CN II-XII grossly intact with no noted focal neuro deficits Psych: Alert and oriented to person, place, time, and situation. Appropriate and pleasant affect. Assessment and Plan of Care: Unstable Angina Exertional dyspnea with bilateral lower extremity edema Hypertensive urgency History of CAD with stenting 4 Hypertension Hyperlipidemia - Labs completed and reviewed. CBC unremarkable. Coagulation profile normal findings. BMP consistent with stage IV CKD with BUN of 48, creatinine 3.32, and GFR of 17 with baseline creatinine around 3. Glucose elevated at 237. Liver profile unremarkable. Troponin normal findings at less than 0.012. -EKG completed showing normal sinus rhythm at 63 bpm with a right bundle branch block upon personal review and interpretation. -Chest x-ray completed in radiology report reviewed negative for acute cardiopulmonary process. -Discussed history, clinical findings, laboratory analysis, and imaging results in detail with the ED physician. -Order placed for proBNP -Trend troponins -Echocardiogram -Patient admitted under our services to observation unit with telemetry. -Consult placed to cardiology. -Continue heparin infusion at 9.6 units/kg/hour and repeat PTT every 6 hours for close monitoring and adjustment of infusion rate. -Give aspirin 324 mg by mouth 1 dose followed by continuation of cardiac medication regimen with aspirin, Ranexa, Rosuvastatin, hydralazine, propranolol, isosorbide mononitrate, furosemide, Zetia, and aspirin. Insulin-dependent diabetes mellitus -Continue home insulin pump -Orders place or [id number] glucose 5 times daily...with meals, at bedtime, and at 2 AM -Glycemic protocol place. Patient to receive 1 amp or 50 mL of D50 for hypoglycemia with blood glucose less than 50 and a 1/2 amp or 25 mL of D50 for hypoglycemia with blood glucose levels 50-70 Stage IV CKD -Follows outpatient with research soil scientist, Dr. Cadena -BMP consistent with stage IV CKD with BUN of 48, creatinine 3.32, and GFR of 17 with baseline creatinine around 3. The patient is admitted with an anticipated\\ less than 2 midnight stay for evaluation of chest pain CODE STATUS: Full code DVT prophylaxis: heparin infusion Discussed with: Patient, patient's , RN and ED physician Anticipated discharge date: 24-[address]: home Patient was seen independently by Nurse Practitioner. This document was prepared using CDP dictation software. Please allow for errors in network control operators supervisor while rare they do occur. I reviewed the documentation as provided by the DIAMOND above, who is the original author of this note. I agree with the documented assessment and plan, with the following changes: none Past Medical History Past Medical History: Coronary Artery Disease (CAD), Chest Pain / Angina, Heart Failure, Diabetes Mellitus, Hyperlipidemia, Hypertension, Myocardial Infarction ([place]), Renal Disease, Sleep Apnea/CPAP/BIPAP Additional Past Medical History / Comment(s): 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, coronary artery disease, diabetes mellitus, hypertension, chronic renal failure, hyperlipidemia, JEN, pt has insulin pump Last Myocardial Infarction Date:: 03/04/14 History of Any Multi-Drug Resistant Organisms: None Reported Past Surgical History: Cholecystectomy, Heart Catheterization, Heart Catheterization With Stent, Orthopedic Surgery Additional Past Surgical History / Comment(s): shoulder, hemmroid, cardiac stent in june 2014, eye surgery, 3-4 cardiac stents Past Anesthesia/Blood Transfusion Reactions: No Reported Reaction Additional Past Anesthesia/Blood Transfusion Reaction / Comment(s): Never had a blood transfusion Date of Last Stent Placement:: 05/2014 Past Psychological History: Anxiety Smoking Status: Former smoker Past Alcohol Use History: None Reported Past Drug Use History: None Reported - Past Family History Father Family Medical History: Cancer Additional Family Medical History / Comment(s): bladder cancer Mother Family Medical History: Diabetes Mellitus Additional Family Medical History / Comment(s): Pancreatic CA Medications and Allergies Home Medications Medication Instructions Recorded Confirmed Type Cetirizine HCl 10 mg PO DAILY 03/03/14 01/01/23 History Nitroglycerin Sl Tabs [Nitrostat] 0.4 mg SL Q5M PRN 03/03/14 01/01/23 History Rosuvastatin Calcium [Crestor] 40 mg PO HS 03/03/14 01/01/23 History Ezetimibe [Zetia] 10 mg PO DAILY 05/19/16 01/01/23 History Ferrous Sulfate [Iron (65 MG 325 mg PO DAILY 05/19/16 01/01/23 History Elemental)] Ergocalciferol (Vitamin D2) 50,000 unit PO Q14D 05/28/18 01/01/23 History [Vitamin D2] Febuxostat [Uloric] 40 mg PO DAILY 05/28/18 01/01/23 History Insulin Aspart (For Pump) [NovoLOG 0.01 unit SQ-PUMP CONTINUOUS MDD 05/28/18 01/01/23 History (For Pump)] 60 UNITS Vitamin B Complex 1 cap PO DAILY 05/28/18 01/01/23 History Isosorbide Mononitrate ER [Imdur] 60 mg PO BID 07/05/18 01/01/23 History calcitrioL [Calcitriol] 0.25 mcg PO DAILY 07/05/18 01/01/23 History Pramipexole [Mirapex] 0.5 mg PO HS 05/02/19 01/01/23 History Ranolazine [Ranexa] 500 mg PO BID 05/02/19 01/01/23 History Propranolol [Inderal] 20 mg PO DAILY 07/28/20 01/01/23 History Dulaglutide [Trulicity] 1.5 mg SQ VALLECILLO 05/23/21 01/01/23 History Albuterol Inhaler [Ventolin Hfa 2 puff INHALATION RT-Q4H PRN 08/10/21 01/01/23 History Inhaler] Fluticasone Propion/Salmeterol 1 puff INHALATION RT-BID PRN 08/10/21 01/01/23 History [Wixela 100-50 Inhub] hydrALAZINE HCL [Apresoline] 10 mg PO BID 10/16/21 01/01/23 History Furosemide [Lasix] 40 mg PO DAILY 30 Days #30 tablet 10/20/21 01/01/23 Rx Aspirin EC [Ecotrin Low Dose] 81 mg PO HS 02/21/22 01/01/23 History Cholecalciferol [Vitamin D3 (25 25 mcg PO DAILY 02/21/22 01/01/23 History Mcg = 1000 Iu)] Glucagon Emergency Kit 1 mg IM ONCE PRN 02/21/22 01/01/23 History Escitalopram [Lexapro] 10 mg PO DAILY 01/01/23 01/01/23 History Allergies Allergy/AdvReac Type Severity Reaction Status Date / Time atorvastatin [From Lipitor] AdvReac Unknown Verified 01/01/23 14:51 baclofen AdvReac Unknown Verified 01/01/23 14:51 Physical Exam Osteopathic Statement: *. No significant issues noted on an osteopathic structural exam other than those noted in the History and Physical/Consult. Vitals: Vital Signs Temp Pulse Resp BP Pulse Ox 01/01/23 14:28 97.5 F L 57 L 17 191/97 100 01/01/23 11:44 98 F 65 20 184/81 98 Intake and Output 01/01/23 01/01/23 01/01/23 06:59 14:59 22:59 Other: Weight 104.326 kg Results CBC & Chem 7: 01/01/23 12:14 01/01/23 12:14 Labs: Abnormal Lab Results - Last 24 Hours (Table) 01/01/23 Range/Units 12:14 BUN 48 H (9-20) mg/dL Creatinine 3.32 H (0.66-1.25) mg/dL Glucose 237 H (74-99) mg/dL
[2023-01-01] MEDS ORDERED: ALBUTEROL NEBULIZED 2.5 MG/3 ML INHALATION PRN (16:08)
[2023-01-01] MEDS ORDERED: SYMBICORT 80-4.5 MCG INHALER INHALATION PRN (16:08)
[2023-01-01] MEDS ORDERED: NITROGLYCERIN SL TABS 0.4 MG TAB SUBLINGUAL PRN (16:08)
[2023-01-01] MEDS ORDERED: ASPIRIN 81 MG PO STA (17:33)
[2023-01-01 17:46] LABS: Glucose,Whole Blood 90 mg/dL (70-110)
[2023-01-01] MEDS: amLODIPine 5 MG TAB PO SCH (18:21)
[2023-01-01] MEDS: Insulin Aspart (For Pump) 100 UNIT/ML VIAL SQ-PUMP SCH (18:24)
[2023-01-01] MEDS: ISOSORBIDE MONONITRATE ER 60 MG TAB.ER.24H PO SCH (20:04)
[2023-01-01] MEDS: PRAMIPEXOLE 0.5 MG TAB PO SCH (20:04)
[2023-01-01] MEDS: NON FORMULARY DRUG (Rosuvastatin Calcium [Crestor] 40 MG Tablet) PO SCH (20:04)
[2023-01-01] MEDS: RANOLAZINE 500 MG TAB.ER.12H PO SCH (20:04)
[2023-01-01 20:27] LABS: Glucose,Whole Blood 140 mg/dL (70-110)
[2023-01-01] MEDS ORDERED: hydrALAZINE HCL 10 MG TAB PO SCH (21:00)
[2023-01-01] MEDS ORDERED: ASPIRIN 81 MG PO SCH (21:00)
[2023-01-02 02:55] LABS: Glucose,Whole Blood 123 mg/dL (70-110)
[2023-01-02 05:05] LABS: African American GFR (CKD) 22 (>60 ml/min/1.73 sqM); Anion Gap 8 mmol/L; Blood Urea Nitrogen 49 mg/dL (9-20); Calcium 8.4 mg/dL (8.4-10.2); Carbon Dioxide 27 mmol/L (22-30); Chloride 101 mmol/L (98-107); Glucose 130 mg/dL (74-99); Magnesium 2.1 mg/dL (1.6-2.3); Non-African American GFR(CKD) 19 (>60 ml/min/1.73 sqM); Potassium 4.5 mmol/L (3.5-5.1); Sodium 136 mmol/L (137-145)
[2023-01-02 05:33] LABS: Glucose,Whole Blood 149 mg/dL (70-110)
[2023-01-02 05:33] LABS: Basophils % (A) 0 %; Eosinophils # (A) 0.1 k/uL (0-0.7); Eosinophils % (A) 2 %; HCT 39.2 % (39.0-53.0); HGB 12.9 gm/dL (13.0-17.5); Lymphocytes # (A) 1.5 k/uL (1.0-4.8); Lymphocytes % (A) 32 %; MCH 29.8 pg (25.0-35.0); MCHC 32.9 g/dL (31.0-37.0); MCV 90.5 fL (80.0-100.0); Mean Platelet Volume 8.7; Monocytes # (A) 0.6 k/uL (0-1.0); Monocytes % (A) 12 %; Neutrophils # (A) 2.4 k/uL (1.3-7.7); Neutrophils % (A) 52 %; Platelet Count 192 k/uL (150-450); RBC 4.32 m/uL (4.30-5.90); RDW 13.1 % (11.5-15.5); WBC 4.6 k/uL (3.8-10.6)
[2023-01-02 05:47] LABS: Prothrombin Time 10.8 sec (9.0-12.0)
[2023-01-02] MEDS: RANOLAZINE 500 MG TAB.ER.12H PO SCH ×2 (09:49→21:34)
[2023-01-02] MEDS: FUROSEMIDE 40 MG TAB PO SCH (09:49)
[2023-01-02] MEDS: FERROUS SULFATE 325 MG TAB PO SCH (09:49)
[2023-01-02] MEDS: ESCITALOPRAM 10 MG TAB PO SCH (09:49)
[2023-01-02] MEDS: EZETIMIBE 10 MG TAB PO SCH (09:49)
[2023-01-02] MEDS: PROPRANOLOL 20 MG TAB PO SCH (09:49)
[2023-01-02] MEDS: ISOSORBIDE MONONITRATE ER 60 MG TAB.ER.24H PO SCH ×2 (09:50→21:35)
[2023-01-02] MEDS: LORATADINE 10 MG TAB PO SCH (09:50)
[2023-01-02] MEDS: amLODIPine 5 MG TAB PO SCH (09:50)
[2023-01-02] MEDS: CHOLECALCIFEROL 25 MCG (1000 IU) TABLET PO SCH (09:50)
[2023-01-02] MEDS: allopurinoL 100 MG TAB PO SCH (09:50)
[2023-01-02] MEDS: hydrALAZINE HCL 25 MG TAB PO SCH ×2 (09:50→21:35)
[2023-01-02 12:02] LABS: Glucose,Whole Blood 231 mg/dL (70-110)
[2023-01-02] MEDS: HEPARIN SOD,PORK IN 0.45% NACL 25,000 UNIT in 0.45% NACL 1 250ML.BAG IV SCH (12:13)
[2023-01-02] MEDS ORDERED: INSULIN ASPART (NovoLOG) 100 UNIT/ML VIAL SQ SCH (12:30)
--- NOTE | 2023-01-02 12:42 | P.CRDCN ---
History of Present Illness Consult date: 01/02/23 Requesting physician: Manolo Pang Reason for Consult (text): acute cp, exertional dyspnea Chief complaint: shortness of breath, chest pain History of present illness: This is a pleasant 72-year-old gentleman who follows in the office with Dr. Castle. He is a history of hypertension, hyperlipidemia, neuropathy, CAD with known GYNAECOLOGICAL ONCOLOGIST of the circumflex with collaterals, being treated medically, mild ischemic myopathy with echocardiogram in September 2021 showing improvement in EF, and chronic kidney disease with a baseline creatinine around 3. He also has a history of obstructive sleep apnea and has not been using his CPAP since the weather has gotten warmer. He presented to the hospital with complaints of worsening shortness of breath that started a couple weeks ago was quite bad for a few days and better last Tuesday for 3 days without issues with shortness of breath and began to become bothersome again on Tuesday. He also complains of worsening fatigue. He has also been having episodes of chest discomfort, random, lasting 2-10 seconds, similar to previous. Troponins have been negative 3. EKG showed sinus rhythm with right bundle branch block, no change compared to previous. NT proBNP was 997. BUN 48, creatinine 3.32. Upon examination he is resting comfortably in bed. He complains of mild lower extremity edema, worse compared to baseline. No current complaints of chest discomfort. His breathing is stable at rest. He's had no complaints of palpitations, dizziness or lightheadedness. He's had no orthopnea or PND. Past Medical History Past Medical History: Coronary Artery Disease (CAD), Chest Pain / Angina, Heart Failure, Diabetes Mellitus, Hyperlipidemia, Hypertension, Myocardial Infarction (CO), Renal Disease, Sleep Apnea/CPAP/BIPAP Additional Past Medical History / Comment(s): 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, coronary artery disease, diabetes mellitus, hypertension, chronic renal failure, hy perlipidemia, JEN, pt has insulin pump Last Myocardial Infarction Date:: 03/04/14 History of Any Multi-Drug Resistant Organisms: None Reported Past Surgical History: Cholecystectomy, Heart Catheterization, Heart Catheterization With Stent, Orthopedic Surgery Additional Past Surgical History / Comment(s): shoulder, hemmroid, cardiac stent in june 2014, eye surgery, 3-4 cardiac stents Past Anesthesia/Blood Transfusion Reactions: No Reported Reaction Additional Past Anesthesia/Blood Transfusion Reaction / Comment(s): Never had a blood transfusion Date of Last Stent Placement:: 05/2014 Past Psychological History: Anxiety Smoking Status: Former smoker Past Alcohol Use History: None Reported Past Drug Use History: None Reported - Past Family History Father Family Medical History: Cancer Additional Family Medical History / Comment(s): bladder cancer Mother Family Medical History: Diabetes Mellitus Additional Family Medical History / Comment(s): Pancreatic CA Medications and Allergies Home Medications Medication Instructions Recorded Confirmed Type Cetirizine HCl 10 mg PO DAILY 03/03/14 01/01/23 History Nitroglycerin Sl Tabs [Nitrostat] 0.4 mg SL Q5M PRN 03/03/14 01/01/23 History Rosuvastatin Calcium [Crestor] 40 mg PO HS 03/03/14 01/01/23 History Ezetimibe [Zetia] 10 mg PO DAILY 05/19/16 01/01/23 History Ferrous Sulfate [Iron (65 MG 325 mg PO DAILY 05/19/16 01/01/23 History Elemental)] Ergocalciferol (Vitamin D2) 50,000 unit PO Q14D 05/28/18 01/01/23 History [Vitamin D2] Febuxostat [Uloric] 40 mg PO DAILY 05/28/18 01/01/23 History Insulin Aspart (For Pump) [NovoLOG 0.01 unit SQ-PUMP CONTINUOUS MDD 05/28/18 01/01/23 History (For Pump)] 60 UNITS Vitamin B Complex 1 cap PO DAILY 05/28/18 01/01/23 History Isosorbide Mononitrate ER [Imdur] 60 mg PO BID 07/05/18 01/01/23 History calcitrioL [Calcitriol] 0.25 mcg PO DAILY 07/05/18 01/01/23 History Pramipexole [Mirapex] 0.5 mg PO HS 05/02/19 01/01/23 History Ranolazine [Ranexa] 500 mg PO BID 05/02/19 01/01/23 History Propranolol [Inderal] 20 mg PO DAILY 07/28/20 01/01/23 History Dulaglutide [Trulicity] 1.5 mg SQ VALLECILLO 05/23/21 01/01/23 History Albuterol Inhaler [Ventolin Hfa 2 puff INHALATION RT-Q4H PRN 08/10/21 01/01/23 History Inhaler] Fluticasone Propion/Salmeterol 1 puff INHALATION RT-BID PRN 08/10/21 01/01/23 History [Wixela 100-50 Inhub] hydrALAZINE HCL [Apresoline] 10 mg PO BID 10/16/21 01/01/23 History Furosemide [Lasix] 40 mg PO DAILY 30 Days #30 tablet 10/20/21 01/01/23 Rx Aspirin EC [Ecotrin Low Dose] 81 mg PO HS 02/21/22 01/01/23 History Cholecalciferol [Vitamin D3 (25 25 mcg PO DAILY 02/21/22 01/01/23 History Mcg = 1000 Iu)] Glucagon Emergency Kit 1 mg IM ONCE PRN 02/21/22 01/01/23 History Escitalopram [Lexapro] 10 mg PO DAILY 01/01/23 01/01/23 History Allergies Allergy/AdvReac Type Severity Reaction Status Date / Time atorvastatin [From Lipitor] AdvReac Unknown Verified 01/01/23 14:51 baclofen AdvReac Unknown Verified 01/01/23 14:51 Physical Exam Vitals: Vital Signs Temp Pulse Pulse Resp BP BP Pulse Ox 01/02/23 07:00 98.1 F 75 16 132/80 99 01/02/23 02:43 97.7 F 69 16 166/73 99 01/01/23 20:00 15 01/01/23 19:17 97.7 F 75 15 172/76 100 01/01/23 17:49 195/82 01/01/23 14:28 97.5 F L 57 L 17 191/97 100 Intake and Output 01/01/23 01/02/23 01/02/23 22:59 06:59 14:59 Intake Total 60.424 111.54 76.444 Balance 60.424 111.54 76.444 Intake: Intake, IV Titration 60.424 111.54 76.444 Amount Heparin Sod,Pork in 0.45% 60.424 111.54 76.444 NaCl 25,000 unit In 0.45 % NaCl 1 250ml.bag @ 9.6 UNITS/KG/HR 10.015 mls/hr IV .Q24H [facility] Rx#: [id number] Other: Voiding Method Toilet # Voids 1 2 Weight 104.326 kg PHYSICAL EXAMINATION: This is a 72-year-old male in no apparent distress at the time of my examination. HEENT: Head is atraumatic, normocephalic. Pupils are equal, round. Sclerae anicteric. Conjunctivae are clear. Mucous membranes of the mouth are moist. Neck is supple. There is no elevated jugular venous pressure. No carotid bruit is heard. CHEST EXAMINATION: Reveal diminished air entry bilaterally. No wheezes rales or rhonchi. Respirations even and nonlabored. HEART EXAMINATION: Heart regular, positive S1 and S2. No S3. No S4. Soft systolic murmur. ABDOMEN: Soft, nontender. Bowel sounds are heard. No organomegaly noted. EXTREMITIES: 2+ peripheral pulses with evidence of trace to mild peripheral edema and no calf tenderness noted. NEUROLOGIC EXAMINATION: Patient is awake, alert and oriented x3. Results 01/02/23 04:21 01/02/23 04:21 Cardiac Enzymes 01/01/23 01/01/23 01/01/23 Range/Units 12:14 12:14 14:34 AST 21 (17-59) U/L Troponin I <0.012 <0.012 (0.000-0.034) ng/mL 01/01/23 Range/Units 17:51 AST (17-59) U/L Troponin I <0.012 (0.000-0.034) ng/mL Coagulation 01/01/23 01/01/23 01/02/23 Range/Units 12:14 19:52 04:21 PT 10.5 (9.0-12.0) sec APTT 24.8 35.0 H 43.8 H (22.0-30.0) sec 01/02/23 01/02/23 Range/Units 04:21 09:42 PT 10.8 (9.0-12.0) sec APTT 43.5 H (22.0-30.0) sec CBC 01/02/23 Range/Units 04:21 WBC 4.6 (3.8-10.6) k/uL RBC 4.32 (4.30-5.90) m/uL Hgb 12.9 L (13.0-17.5) gm/dL Hct 39.2 (39.0-53.0) % Plt Count 192 (150-450) k/uL Comprehensive Metabolic Panel 01/01/23 01/02/23 Range/Units 12:14 04:21 Sodium 138 136 L (137-145) mmol/L Potassium 4.3 4.5 (3.5-5.1) mmol/L Chloride 101 101 (98-107) mmol/L Carbon Dioxide 25 27 (22-30) mmol/L BUN 48 H 49 H (9-20) mg/dL Creatinine 3.32 H 3.13 H (0.66-1.25) mg/dL Glucose 237 H 130 H (74-99) mg/dL Calcium 8.5 8.4 (8.4-10.2) mg/dL AST 21 (17-59) U/L ALT 16 (4-49) U/L Alkaline Phosphatase 109 (38-126) U/L Total Protein 6.9 (6.3-8.2) g/dL Albumin 3.6 (3.5-5.0) g/dL Current Medications Generic Name Dose Route Start Last Admin Trade Name Freq PRN Reason Stop Dose Admin Albuterol Sulfate 2.5 mg 01/01/23 16:08 Albuterol Nebulized 2.5 Mg/3 Ml INHALATION RT-Q4H PRN Shortness Of Breath Allopurinol 200 mg 01/02/23 09:00 01/02/23 09:50 Allopurinol 100 Mg Tab PO 200 mg DAILY [facility] Administration Amlodipine Besylate 5 mg 01/01/23 18:30 01/02/23 09:50 Amlodipine 5 Mg Tab PO 5 mg DAILY [facility] Administration Aspirin 81 mg 01/02/23 21:00 Aspirin 81 Mg PO HS [facility] Budesonide/Formoterol Fumarate 2 puff 01/01/23 16:08 Symbicort 80-4.5 Mcg Inhaler INHALATION RT-BID PRN Shortness Of Breath Calcitriol 0.25 mcg 01/02/23 09:00 01/02/23 09:49 Calcitriol 0.25 Mcg Cap PO 0.25 mcg DAILY [facility] Administration Cholecalciferol 25 mcg 01/02/23 09:00 01/02/23 09:50 Cholecalciferol 25 Mcg (1000 Iu) Tablet PO 25 mcg DAILY [facility] Administration Dextrose/Water 25 ml 01/01/23 15:29 Dextrose 50% Syringe 50 Ml IVP PER PROTOCOL PRN Hypoglycemia Protocol Dextrose/Water 50 ml 01/01/23 15:29 Dextrose 50% Syringe 50 Ml IVP PER PROTOCOL PRN Hypoglycemia Protocol Ezetimibe 10 mg 01/02/23 09:00 01/02/23 09:49 Ezetimibe 10 Mg Tab PO 10 mg DAILY [facility] Administration Escitalopram Oxalate 10 mg 01/02/23 09:00 01/02/23 09:49 Escitalopram 10 Mg Tab PO 10 mg DAILY [facility] Administration Ferrous Sulfate 325 mg 01/02/23 09:00 01/02/23 09:49 Ferrous Sulfate 325 Mg Tab PO 325 mg DAILY [facility] Administration Furosemide 40 mg 01/02/23 09:00 01/02/23 09:49 Furosemide 40 Mg Tab PO 40 mg DAILY [facility] Administration Heparin Sodium (Porcine) 0 unit 01/01/23 14:02 01/01/23 20:47 Heparin Sodium 1,000 Un/Ml (10ml Vl) IV 2,608 unit PER PROTOCOL PRN Administration Low PTT Protocol Hydralazine HCl 25 mg 01/02/23 09:00 01/02/23 09:50 Hydralazine Hcl 25 Mg Tab PO 25 mg BID [facility]EY Administration Heparin Sodium/Sodium Chloride 250 mls @ 10.015 mls/hr 01/01/23 14:15 01/02/23 12:13 25,000 unit/ Sodium Chloride IV 11.6 units/kg/hr .Q24H [facility] 12.102 mls/hr Administration Protocol 9.6 UNITS/KG/HR Insulin Aspart 0.01 unit 01/01/23 15:30 01/01/23 18:24 Insulin Aspart (For Pump) 100 Unit/Ml Vial SQ-PUMP 0.01 unit CONTINUOUS JOEY Administration Insulin Aspart 0 unit 01/02/23 12:30 01/02/23 12:01 Insulin Aspart (Novolog) 100 Unit/Ml Vial SQ Not Given ACHS [facility]EY Protocol Isosorbide Mononitrate 60 mg 01/01/23 21:00 01/02/23 09:50 Isosorbide Mononitrate Er 60 Mg Tab.Er.24h PO 60 mg BID JOEY Administration Loratadine 10 mg 01/02/23 09:00 01/02/23 09:50 Loratadine 10 Mg Tab PO 10 mg DAILY JOEY Administration Naloxone HCl 0.2 mg 01/01/23 13:56 Naloxone 0.4 Mg/Ml 1 Ml Vial IV Q2M PRN Opioid Reversal Nitroglycerin 0.4 mg 01/01/23 16:08 Nitroglycerin Sl Tabs 0.4 Mg Tab SUBLINGUAL Q5M PRN Chest Pain Non-Formulary Medication 40 mg 01/01/23 21:00 01/01/23 20:04 Rosuvastatin Calcium [Crestor] PO Not Given HS [facility]EY Pramipexole Dihydrochloride 0.5 mg 01/01/23 21:00 01/01/23 20:04 Pramipexole 0.5 Mg Tab PO 0.5 mg HS [facility]EY Administration Propranolol HCl 20 mg 01/02/23 09:00 01/02/23 09:49 Propranolol 20 Mg Tab PO 20 mg DAILY [facility]EY Administration Ranolazine 500 mg 01/01/23 21:00 01/02/23 09:49 Ranolazine 500 Mg Tab.Er.12h PO 500 mg BID JOEY Administration Intake and Output 01/01/23 01/02/23 01/02/23 22:59 06:59 14:59 Intake Total 60.424 111.54 76.444 Balance 60.424 111.54 76.444 Intake: Intake, IV Titration 60.424 111.54 76.444 Amount Heparin Sod,Pork in 0.45% 60.424 111.54 76.444 NaCl 25,000 unit In 0.45 % NaCl 1 250ml.bag @ 9.6 UNITS/KG/HR 10.015 mls/hr IV .Q24H [facility] Rx#: [id number] Other: Voiding Method Toilet # Voids 1 2 Weight 104.326 kg 01/02/23 04:21 01/02/23 04:21 Assessment and Plan Assessment: #1 symptoms of worsening shortness of breath, mild edema and fatigue #2 chest pain, atypical, acute coronary event has been ruled out 3 CAD with known GYNAECOLOGICAL ONCOLOGIST of the circumflex #4 history of ischemic cardiomyopathy with improvement in his ejection fraction on most recent echocardiogram #5 obstructive sleep apnea not compliant with his CPAP #6 hypertension #7 hyperlipidemia #8 chronic kidney disease Plan: From cardiology's perspective we'll obtain a 2-D echo with Doppler study to assess cardiac structure and function. Patient's symptoms could be related to noncompliance with his CPAP and this was discussed in detail with the patient. We will continue to follow the patient and provide further recommendations accordingly. WO[employer] PATTERN[employer] APPRENTICE note has been reviewed, I agree with a documented findings and plan of care. Patient was seen and examined.
--- NOTE | 2023-01-02 15:27 | P.PN ---
Subjective Progress Note Date: 01/02/23 (delayed charting seen at 0920) Patient is a 72-year-old male with diabetes mellitus type 2 on insulin pump, chronic kidney disease stage IV, coronary artery disease status post stenting, hypertension, dyslipidemia, and JEN who presented to the emergency department with complaints of fatigue, exertional dyspnea, and lower extremity edema. In the ER he underwent an extensive evaluation. Initial vital signs were remarkable for blood pressure of 184/81. Initial laboratory analysis reviewed and BUN remarkable for 48, creatinine 3.3 (baseline 3.2) , troponin negative. BNP 997. EKG reviewed and demonstrates a widened QRS with a right bundle branch block and left anterior fascicular block. Chest x-ray showed no acute process. He was admitted for unstable angina and was started on a heparin drip. Troponins were trended and remained negative. Cardiology was consulted. Patient seen and examined at bedside. He reports he feels slightly better than yesterday. He describes worsening fatigue over the last 2 weeks with some exertional dyspnea and lower extremity edema. He denies any headache. Vital signs reviewed General: nontoxic, no distress, appears at stated age Cardiovascular: S1S2 reg, no murmur, positive posterior tibial pulse bilateral, Lungs: Decreased breath sounds bilateral, no rhonchi, no rales , no accessory muscle use Abdominal: soft, nontender to palpation, no guarding, no appreciable organomegaly Ext: no gross muscle atrophy, trace edema bilateral lower extremities, no contractures Neuro: CN II-XI grossly intact, no focal neuro deficits Psych: Alert, oriented, appropriate affect Assessment: Chest pain and dyspnea on exertion Hypertensive urgency Diabetes mellitus, on chronic insulin pump Known coronary artery disease with chronic total occlusion of the circumflex History of ischemic cardiomyopathy with improvement in ejection fraction on last echo Dyslipidemia Chronic kidney disease stage IV Imaging: None Data Review: Vitals reviewed temperature 98.1, pulse 75, respirations 16, blood pressure 132/80, O2 sat 99% on room air Labs reviewed and remarkable for creatinine 3.13, blood sugar 149 Plan: -Cardiology consult reviewed: Check a 2-D echo could be secondary to noncompliance with his CPAP - Cardiology increased hydralazine to 25 mg twice daily - Norvasc 5 mg PO daily was added on - Await echo - Insulin pump is currently running, continue follow blood sugars -Continue with Inderal 20 mg daily, Ranexa 500 mg twice daily, Crestor 40 mg daily, and Imdur 60 mg twice daily DVT prophylaxis: SCDs Discussed with: Patient Anticipated discharge date: in 24- [address]: home This dictation was prepared using [employer] voice recognition software. Though every attempt is made to correct errors during during dictation some may still exist. Objective - Vital Signs Vital signs: Vital Signs Temp 97.7 F 01/02/23 15:00 Pulse 68 01/02/23 15:00 Resp 16 01/02/23 15:00 BP 137/64 01/02/23 15:00 Pulse Ox 97 01/02/23 15:00 FiO2 Intake & Output 01/01/23 01/02/23 01/02/23 18:59 06:59 18:59 Intake Total 171.964 194.444 Balance 171.964 194.444 Weight 104.326 kg Intake: Intake, IV Titration 171.964 76.444 Amount Heparin Sod,Pork in 0.45% 171.964 76.444 NaCl 25,000 unit In 0.45 % NaCl 1 250ml.bag @ 9.6 UNITS/KG/HR 10.015 mls/hr IV .Q24H [facility] [place] Rx#: [id number] Oral 118 Other: Voiding Method Toilet # Voids 2 - Labs CBC & Chem 7: 01/02/23 04:21 01/02/23 04:21 Labs: Abnormal Lab Results - Last 24 Hours (Table) 01/01/23 01/01/23 01/02/23 Range/Units 19:52 20:25 02:53 Hgb (13.0-17.5) gm/dL APTT 35.0 H (22.0-30.0) sec Sodium (137-145) mmol/L BUN (9-20) mg/dL Creatinine (0.66-1.25) mg/dL Glucose (74-99) mg/dL POC Glucose (mg/dL) 140 H 123 H (70-110) mg/dL Hemoglobin A1c % 01/02/23 01/02/23 01/02/23 Range/Units 04:21 04:21 04:21 Hgb (13.0-17.5) gm/dL APTT 43.8 H (22.0-30.0) sec Sodium 136 L (137-145) mmol/L BUN 49 H (9-20) mg/dL Creatinine 3.13 H (0.66-1.25) mg/dL Glucose 130 H (74-99) mg/dL POC Glucose (mg/dL) (70-110) mg/dL Hemoglobin A1c 7.7 H % 01/02/23 01/02/23 01/02/23 Range/Units 04:21 05:31 09:42 Hgb 12.9 L (13.0-17.5) gm/dL APTT 43.5 H (22.0-30.0) sec Sodium (137-145) mmol/L BUN (9-20) mg/dL Creatinine (0.66-1.25) mg/dL Glucose (74-99) mg/dL POC Glucose (mg/dL) 149 H (70-110) mg/dL Hemoglobin A1c % 01/02/23 Range/Units 11:58 Hgb (13.0-17.5) gm/dL APTT (22.0-30.0) sec Sodium (137-145) mmol/L BUN (9-20) mg/dL Creatinine (0.66-1.25) mg/dL Glucose (74-99) mg/dL POC Glucose (mg/dL) 231 H (70-110) mg/dL Hemoglobin A1c %
[2023-01-02 17:00] LABS: Glucose,Whole Blood 62 mg/dL (70-110)
[2023-01-02] MEDS: Insulin Aspart (For Pump) 100 UNIT/ML VIAL SQ-PUMP SCH (18:27)
[2023-01-02 18:49] LABS: Glucose,Whole Blood 117 mg/dL (70-110)
[2023-01-02] MEDS ORDERED: ASPIRIN 81 MG PO SCH (21:00)
[2023-01-02 21:07] LABS: Glucose,Whole Blood 114 mg/dL (70-110)
[2023-01-02] MEDS: NON FORMULARY DRUG (Rosuvastatin Calcium [Crestor] 40 MG Tablet) PO SCH (21:34)
[2023-01-02] MEDS: PRAMIPEXOLE 0.5 MG TAB PO SCH (21:35)
[2023-01-03 02:16] LABS: Glucose,Whole Blood 122 mg/dL (70-110)
[2023-01-03 03:58] VITALS: RESP 16
[2023-01-03 07:48] LABS: Glucose,Whole Blood 114 mg/dL (70-110)
[2023-01-03 08:54] VITALS: BP 158/77; PULSE 66; TEMP 97.8
[2023-01-03] MEDS: CHOLECALCIFEROL 25 MCG (1000 IU) TABLET PO SCH (09:28)
[2023-01-03] MEDS: RANOLAZINE 500 MG TAB.ER.12H PO SCH (09:28)
[2023-01-03] MEDS: LORATADINE 10 MG TAB PO SCH (09:29)
[2023-01-03] MEDS: ISOSORBIDE MONONITRATE ER 60 MG TAB.ER.24H PO SCH (09:29)
[2023-01-03] MEDS: FERROUS SULFATE 325 MG TAB PO SCH (09:29)
[2023-01-03] MEDS: hydrALAZINE HCL 25 MG TAB PO SCH (09:30)
[2023-01-03] MEDS: EZETIMIBE 10 MG TAB PO SCH (09:30)
[2023-01-03] MEDS: ESCITALOPRAM 10 MG TAB PO SCH (09:30)
[2023-01-03] MEDS: amLODIPine 5 MG TAB PO SCH (09:30)
[2023-01-03] MEDS: allopurinoL 100 MG TAB PO SCH (09:30)
[2023-01-03] MEDS: FUROSEMIDE 40 MG TAB PO SCH (09:30)
[2023-01-03] MEDS: PROPRANOLOL 20 MG TAB PO SCH (09:30)
--- NOTE | 2023-01-03 09:56 | CA ---
Transthoracic Echo Report Name: Phan Luciano Age: 72 Gender: M : 1950 Exam Date: 01/03/2023 07:50 Exam Location: [facility] Ht (in): 68 Wt (lb): 230 Ordering Physician: Manuel Ivey Attending/Referring Phys: [facility] Laboratory Assistant Lyn Calderon RDCS Procedure CPT: Indications: exertional SOB, CP Cardiac Hx: Technical Quality: Good Contrast 1: Total Dose (mL): Contrast 2: Total Dose (mL): MEASUREMENTS (Male / Female) Normal Values 2D ECHO LV Diastolic Diameter PLAX 4.5 cm 4.2 - 5.9 / 3.9 - 5.3 cm LV Systolic Diameter PLAX 3.8 cm IVS Diastolic Thickness 1.3 cm 0.6 - 1.0 / 0.6 - 0.9 cm LVPW Diastolic Thickness 1.1 cm 0.6 - 1.0 / 0.6 - 0.9 cm LV Relative Wall Thickness 0.5 RV Internal Dim ED PLAX 3.5 cm LVOT Diameter 2.5 cm LA Systolic Diameter LX 3.7 cm 3.0 - 4.0 / 2.7 - 3.8 cm LV Diastolic Volume MOD BP 116.8 cm??? 67 - 155 / 56 - 104 cm??? LV Systolic Volume MOD BP 53.7 cm??? 22 - 58 / 19 - 49 cm??? LV Ejection Fraction MOD BP 54.1 % >= 55 % LV Diastolic Volume MOD 4C 109.6 cm??? LV Systolic Volume MOD 4C 44.5 cm??? LV Ejection Fraction MOD 4C 59.4 % LV Diastolic Length 4C 7.5 cm LV Systolic Length 4C 6.2 cm LV Diastolic Volume MOD 2C 117.7 cm??? LV Systolic Volume MOD 2C 59.5 cm??? LV Ejection Fraction MOD 2C 49.5 % LV Diastolic Length 2C 8.1 cm LV Systolic Length 2C 7.3 cm LA Volume 84.3 cm??? 18 - 58 / 22 - 52 cm??? M-MODE Aortic Root Diameter MM 4.2 cm MV E Point Septal Separation 1.1 cm AV Cusp Separation MM 1.8 cm DOPPLER AV Peak Velocity 197.1 cm/s AV Peak Gradient 15.5 mmHg AV Mean Velocity 145.1 cm/s AV Mean Gradient 9.2 mmHg AV Velocity Time Integral 46.4 cm LVOT Peak Velocity 58.9 cm/s LVOT Peak Gradient 1.4 mmHg AV Area Cont Eq pk 1.5 cm??? MV Peak Velocity 167.3 cm/s MV Peak Gradient 11.2 mmHg MV Mean Velocity 88.6 cm/s MV Mean Gradient 3.7 mmHg MV Velocity Time Integral 39.5 cm MV Area PHT 4.2 cm??? Mitral E Point Velocity 93.9 cm/s Mitral A Point Velocity 149.0 cm/s Mitral E to A Ratio 0.6 MV Deceleration Time 179.4 ms FINDINGS Left Ventricle Left ventricular ejection fraction is estimated at 50-55 %. Left ventricular cavity size normal. Mildly increased septal wall thickness. Mildly decreased left ventricular ejection fraction. Right Ventricle Mild right ventricular dilatation. Unable to estimate the right ventricular systolic pressure. Right Atrium Normal right atrial size. Left Atrium Severely increased left atrial volume. Mildly increased left atrial area. Mitral Valve Moderate thickening/calcification of the posterior mitral valve leaflet. Mitral annular calcification. [id number] mitral regurgitation. Aortic Valve Trileaflet aortic valve. Diffuse thickening of the aortic valve cusps with reduced excursion. Mild aortic stenosis with a peak gradient of 19 mmHg and a mean gradient of 9 mmHg. Tricuspid Valve Structurally normal tricuspid valve. No tricuspid regurgitation. Pulmonic Valve Structurally normal pulmonic valve. No pulmonic regurgitation. Pericardium No pericardial effusion. Normal pericardium. Aorta Moderate aortic dilatation at the level of the sinuses of valsalva 42 mm CONCLUSIONS Normal LV systolic function. Concentric LVH Mitral annular calcification with mild to moderate MR Aortic sclerosis with mild aortic stenosis Previewed by: Dr. Donnell Radford MD (Electronically Signed) Final Date: 03 January 2023 09:55
--- NOTE | 2023-01-03 10:03 | P.PN ---
Subjective Progress Note Date: 01/03/23 HISTORY OF PRESENT ILLNESS: This is a pleasant 72-year-old gentleman who follows in the office with Dr. Castle. He is a history of hypertension, hyperlipidemia, neuropathy, CAD with known [employer] of the circumflex with collaterals, being treated medically, mild ischemic myopathy with echocardiogram in September 2021 showing improvement in EF, and chronic kidney disease with a baseline creatinine around 3. He also has a history of obstructive sleep apnea and has not been using his CPAP since the weather has gotten warmer. He presented to the hospital with complaints of worsening shortness of breath that started a couple weeks ago was quite bad for a few days and better last Tuesday for 3 days without issues with shortness of breath and began to become bothersome again on Tuesday. He also complains of worsening fatigue. He has also been having episodes of chest discomfort, random, lasting 2-10 seconds, similar to previous. Troponins have been negative 3. EKG showed sinus rhythm with right bundle branch block, no change compared to previous. NT proBNP was 997. BUN 48, creatinine 3.32. Upon examination he is resting comfortably in bed. He complains of mild lower extremity edema, worse compared to baseline. No current complaints of chest discomfort. His breathing is stable at rest. He's had no complaints of palpitations, dizziness or lightheadedness. He's had no orthopnea or PND. 01/03/2023 Patient examined this morning at the bedside. Patient denies chest pain or pressure. He currently denies shortness of breath. Vital signs are stable. Echocardiogram completed revealing ejection fraction 50-55%, mild aortic stenosis, and mild to moderate MR. PHYSICAL EXAM: VITAL SIGNS: Reviewed. GENERAL: Well-developed in no acute distress. NECK: Supple. No JVD or thyromegaly LUNGS: Respirations even and unlabored. Lungs essentially clear to auscultation bilaterally. HEART: Regular rate and rhythm. S1 and S2 heard. Systolic murmur noted EXTREMITIES: Normal range of motion. No clubbing or cyanosis. Peripheral pulses intact. No lower extremity edema ASSESSMENT: #1 symptoms of worsening shortness of breath, mild edema and fatigue #2 chest pain, atypical, acute coronary event has been ruled out 3 CAD with known [employer] of the circumflex #4 history of ischemic cardiomyopathy with improvement in his ejection fraction on most recent echocardiogram #5 obstructive sleep apnea not compliant with his CPAP #6 hypertension #7 hyperlipidemia #8 chronic kidney disease PLAN: Continue current cardiac medications Patient is stable from a cardiac standpoint Patient may be discharged home today from a cardiology perspective Patient is to follow up outpatient with Dr. Castle We will sign off. Please reconsult if needed. Nurse practitioner note has been reviewed by physician. Signing provider agrees with the documented findings, assessment, and plan of care. Objective - Vital Signs Vital signs: Vital Signs Temp 97.8 F 01/03/23 07:00 Pulse 66 01/03/23 07:00 Resp 16 01/03/23 07:00 BP 158/77 01/03/23 07:00 Pulse Ox 97 01/03/23 08:14 FiO2 21 01/03/23 08:14 Intake & Output 01/02/23 01/03/23 01/03/23 18:59 06:59 18:59 Intake Total 552.444 Balance 552.444 Intake: Intake, IV Titration 76.444 Amount Heparin Sod,Pork in 0.45% 76.444 NaCl 25,000 unit In 0.45 % NaCl 1 250ml.bag @ 9.6 UNITS/KG/HR 10.015 mls/hr IV .Q24H [facility] Rx#: [id number] Oral 476 Other: Voiding Method Toilet # Voids 3 2 # Bowel Movements 2 - Labs CBC & Chem 7: 01/02/23 04:21 01/02/23 04:21 Labs: Abnormal Lab Results - Last 24 Hours (Table) 01/02/23 01/02/23 01/02/23 Range/Units 04:21 09:42 11:58 APTT 43.5 H (22.0-30.0) sec POC Glucose (mg/dL) 231 H (70-110) mg/dL Hemoglobin A1c 7.7 H % 01/02/23 01/02/23 01/02/23 Range/Units 16:59 18:48 21:05 APTT (22.0-30.0) sec POC Glucose (mg/dL) 62 L 117 H 114 H (70-110) mg/dL Hemoglobin A1c % 01/03/23 01/03/23 01/03/23 Range/Units 02:15 07:47 08:23 APTT 36.0 H (22.0-30.0) sec POC Glucose (mg/dL) 122 H 114 H (70-110) mg/dL Hemoglobin A1c %
[2023-01-03 12:58] LABS: Glucose,Whole Blood 129 mg/dL (70-110)
--- NOTE | 2023-01-03 13:36 | P.DS ---
Providers Date of admission: 01/01/23 18:21 Expected date of discharge: 01/03/23 Attending physician: Manolo Pang MD Primary care physician: Marlon Valentino MD Hospital Course: Discharge Diagnosis: Chest pain and dyspnea on exertion likely due to HTN urgency Hypertensive urgency Diabetes mellitus, on chronic insulin pump Known coronary artery disease with chronic total occlusion of the circumflex History of ischemic cardiomyopathy with improvement in ejection fraction on last echo Dyslipidemia Chronic kidney disease stage IV Hospital Course: Patient is a 72-year-old male with diabetes mellitus type 2 on insulin pump, chronic kidney disease stage IV, coronary artery disease status post stenting, hypertension, dyslipidemia, and JEN who presented to the emergency department with complaints of fatigue, exertional dyspnea, and lower extremity edema. In the ER he underwent an extensive evaluation. Initial vital signs were remarkable for blood pressure of 184/81. Initial laboratory analysis reviewed and BUN remarkable for 48, creatinine 3.3 (baseline 3.2) , troponin negative. BNP 997. EKG reviewed and demonstrates a widened QRS with a right bundle branch block and left anterior fascicular block. Chest x-ray showed no acute process. He was admitted for unstable angina and was started on a heparin drip. Troponins were trended and remained negative. Cardiology was consulted. He did well and his hydralazine was increased to 25 mg and norvasc was added to control his blood pressure. His chest pain resolved with bloo dpressure optimization. His echo showed EF 50-55%, concentric LVH, mild aortic stenosis Follow-up: Take blood pressure and make a log for Dr. Castle, Follow-up Dr. Castle in [address] Valentino in 2-3 days, Hydralazine increased and norvasc added. Patient seen and examined at bedside. No additional chest pain or shortness of breath. Feeling much better than on admission. Vital signs reviewed and stable. General: nontoxic, no distress, appears at stated age Cardiovascular: S1S2 reg, no murmur, positive posterior tibial pulse bilateral, Lungs: CTA bilateral, no rhonchi, no rales , no accessory muscle use Abdominal: soft, nontender to palpation, no guarding, no appreciable organomegaly Ext: no gross muscle atrophy, no edema b/l lower extremities, no contractures Neuro: CN II-XI grossly intact, no focal neuro deficits Psych: Alert, oriented, appropriate affect A total of 32 minutes of time were spent preparing this complex discharge summary. Patient was discharged on 01/03/23. This dictation was prepared using [employer] voice recognition software. Though every attempt is made to correct errors during during dictation some may still exist. Patient Condition at Discharge: Stable Plan - Discharge Summary New Discharge Prescriptions: New hydrALAZINE HCL [Apresoline] 25 mg PO BID #60 tab amLODIPine [Norvasc] 5 mg PO DAILY #30 tab Continue Rosuvastatin Calcium [Crestor] 40 mg PO HS Cetirizine HCl 10 mg PO DAILY Nitroglycerin Sl Tabs [Nitrostat] 0.4 mg SL Q5M PRN PRN Reason: Chest Pain Ezetimibe [Zetia] 10 mg PO DAILY Ferrous Sulfate [Iron (65 MG Elemental)] 325 mg PO DAILY Febuxostat [Uloric] 40 mg PO DAILY Vitamin B Complex 1 cap PO DAILY Ergocalciferol (Vitamin D2) [Vitamin D2] 50,000 unit PO Q14D Insulin Aspart (For Pump) [NovoLOG (For Pump)] 0.01 unit SQ-PUMP CONTINUOUS MDD 60 UNITS calcitrioL [Calcitriol] 0.25 mcg PO DAILY Isosorbide Mononitrate ER [Imdur] 60 mg PO BID Pramipexole [Mirapex] 0.5 mg PO HS Ranolazine [Ranexa] 500 mg PO BID Propranolol [Inderal] 20 mg PO DAILY Albuterol Inhaler [Ventolin Hfa Inhaler] 2 puff INHALATION RT-Q4H PRN PRN Reason: Shortness Of Breath Fluticasone Propion/Salmeterol [Wixela 100-50 Inhub] 1 puff INHALATION RT-BID PRN PRN Reason: Shortness Of Breath Furosemide [Lasix] 40 mg PO DAILY 30 Days #30 tablet Glucagon Emergency Kit 1 mg IM ONCE PRN PRN Reason: Hypoglycemia Cholecalciferol [Vitamin D3 (25 Mcg = 1000 Iu)] 25 mcg PO DAILY Escitalopram [Lexapro] 10 mg PO DAILY Dulaglutide [Trulicity] 1.5 mg SQ VALLECILLO Aspirin EC [Ecotrin Low Dose] 81 mg PO HS Discontinued hydrALAZINE HCL [Apresoline] 10 mg PO BID Discharge Medication List Cetirizine HCl 10 mg PO DAILY 03/03/14 [History] Nitroglycerin Sl Tabs [Nitrostat] 0.4 mg SL Q5M PRN 03/03/14 [History] Rosuvastatin Calcium [Crestor] 40 mg PO HS 03/03/14 [History] Ezetimibe [Zetia] 10 mg PO DAILY 05/19/16 [History] Ferrous Sulfate [Iron (65 MG Elemental)] 325 mg PO DAILY 05/19/16 [History] Ergocalciferol (Vitamin D2) [Vitamin D2] 50,000 unit PO Q14D 05/28/18 [History] Febuxostat [Uloric] 40 mg PO DAILY 05/28/18 [History] Insulin Aspart (For Pump) [NovoLOG (For Pump)] 0.01 unit SQ-PUMP CONTINUOUS MDD 60 UNITS 05/28/18 [History] Vitamin B Complex 1 cap PO DAILY 05/28/18 [History] Isosorbide Mononitrate ER [Imdur] 60 mg PO BID 07/05/18 [History] calcitrioL [Calcitriol] 0.25 mcg PO DAILY 07/05/18 [History] Pramipexole [Mirapex] 0.5 mg PO HS 05/02/19 [History] Ranolazine [Ranexa] 500 mg PO BID 05/02/19 [History] Propranolol [Inderal] 20 mg PO DAILY 07/28/20 [History] Dulaglutide [Trulicity] 1.5 mg SQ VALLECILLO 05/23/21 [History] Albuterol Inhaler [Ventolin Hfa Inhaler] 2 puff INHALATION RT-Q4H PRN 08/10/21 [History] Fluticasone Propion/Salmeterol [Wixela 100-50 Inhub] 1 puff INHALATION RT-BID PRN 08/10/21 [History] Furosemide [Lasix] 40 mg PO DAILY 30 Days #30 tablet 10/20/21 [Rx] Aspirin EC [Ecotrin Low Dose] 81 mg PO HS 02/21/22 [History] Cholecalciferol [Vitamin D3 (25 Mcg = 1000 Iu)] 25 mcg PO DAILY 02/21/22 [History] Glucagon Emergency Kit 1 mg IM ONCE PRN 02/21/22 [History] Escitalopram [Lexapro] 10 mg PO DAILY 01/01/23 [History] amLODIPine [Norvasc] 5 mg PO DAILY #30 tab 01/03/23 [Rx] hydrALAZINE HCL [Apresoline] 25 mg PO BID #60 tab 01/03/23 [Rx] Follow up Appointment(s)/Referral(s): Shiraz Castle DO [STAFF PHYSICIAN] - 1 Week Marlon Valentino MD [Primary Care Provider] - 1-2 days Activity/Diet/Wound Care/Special Instructions: Activity: as tolerated Diet: heart health, carb consistent Special Instructions: Please check your blood pressures 1-2 times daily and bring a log tear point Dr. Castle -Call cardiology office with any increase in shortness of breath, lightheadednes s, dizziness, or systolic (top number) blood pressures less than 95 or diastolic (bottom number) less than 55 Thank you for trusting us with your care, we wish you well on your journey to better health. Discharge Disposition: HOME SELF-CARE
== END 2023-01-03 14:10 | disposition home or self-care (01) ==
LOC: EC 11:42 → 6NMEDSUR 13:56 → OBSVTOIN 18:21 → INTOOBSV 18:21 → UNDODISIN 01-03 14:28
PROVIDERS: ADMIT Internal Medicine; ATTEND Internal Medicine
DX: R07.89 Other chest pain (principal); I16.0 Hypertensive urgency; I25.10 Atherosclerotic heart disease of native coronary artery without angina pectoris; I13.0 Hypertensive heart and chronic kidney disease with heart failure and stage 1 through stage 4 chronic kidney disease, or unspecified chronic kidney disease; I50.9 Heart failure, unspecified; E78.5 Hyperlipidemia, unspecified; E11.22 Type 2 diabetes mellitus with diabetic chronic kidney disease; I25.2 Old myocardial infarction; F41.9 Anxiety disorder, unspecified; G47.33 Obstructive sleep apnea (adult) (pediatric); N18.4 Chronic kidney disease, stage 4 (severe); I45.10 Unspecified right bundle-branch block; E11.40 Type 2 diabetes mellitus with diabetic neuropathy, unspecified; G72.89 Other specified myopathies; I25.5 Ischemic cardiomyopathy; I44.4 Left anterior fascicular block; I34.0 Nonrheumatic mitral (valve) insufficiency; I35.0 Nonrheumatic aortic (valve) stenosis; Z96.41 Presence of insulin pump (external) (internal); Z79.899 Other long term (current) drug therapy; Z88.8 Allergy status to other drugs, medicaments and biological substances; Z90.49 Acquired absence of other specified parts of digestive tract; Z95.5 Presence of coronary angioplasty implant and graft; Z80.52 Family history of malignant neoplasm of bladder; Z80.0 Family history of malignant neoplasm of digestive organs; Z83.3 Family history of diabetes mellitus; Z87.891 Personal history of nicotine dependence; Z79.4 Long term (current) use of insulin; Z91.199 Patient's noncompliance with other medical treatment and regimen due to unspecified reason
CPT/HCPCS: 96376; 96365; 96366 ×3; 96375; 99291; 36415; 94760; 93005; 93306; 83880; 80053; 80048; 83735 ×2; 84484; 85025 ×2; 85610 ×2; 85730 ×3; 83036; 71046; G0378 ×3; J0360; J1644 ×3; 96374

== ENCOUNTER 2023-02-03 16:20 | Observation (INO) | payer MEDICARE ==
--- NOTE | 2023-02-03 18:20 | ED ---
General Adult HPI - General Source: patient Mode of arrival: ambulatory Limitations: no limitations <Agata Mann - Last Filed: 02/03/23 18:22> - History of Present Illness -: days(s) Location: face Radiation: non-radiation Severity scale (1-10): 10 Quality: aching Consistency: constant Improves with: none Worsens with: none Associated Symptoms: denies other symptoms, fever/chills Treatments Prior to Arrival: none <Jude Mccann - Last Filed: 02/15/23 19:35> - General Chief complaint: Skin/Abscess/Foreign Body Stated complaint: Lt ear swelling Time Seen by Provider: 02/03/23 18:00 - History of Present Illness Initial comments: 72 year old male presents to the emergency department with chief complaint of left ear swelling x3 days. Patient states that he was seen by his primary care today who sent him in to be seen. He reports chills x2 days. Patient states this has happened before. Patient has PMH of DM, HTN, HLD. (Agata Mann) This is a 72-year-old male to the emergency room in today for evaluation severe left ear pain and swelling redness, severe pain in the left ear with prior history of similar event on the right ear. Patient is diabetic, pain and swelling of the ears severe with history of mastoiditis prior. Patient also has felt feverish weak chills lightheadedness dizziness. (Jude Mccann) - Related Data Home Medications Medication Instructions Recorded Confirmed Cetirizine HCl 10 mg PO DAILY 03/03/14 02/03/23 Nitroglycerin Sl Tabs [Nitrostat] 0.4 mg SL Q5M PRN 03/03/14 02/03/23 Rosuvastatin Calcium [Crestor] 40 mg PO HS 03/03/14 02/03/23 Ezetimibe [Zetia] 10 mg PO DAILY 05/19/16 02/03/23 Ferrous Sulfate [Iron (65 MG 325 mg PO DAILY 05/19/16 02/03/23 Elemental)] Ergocalciferol (Vitamin D2) 50,000 unit PO Q14D 05/28/18 02/03/23 [Vitamin D2] Febuxostat [Uloric] 40 mg PO DAILY 05/28/18 02/03/23 Insulin Aspart (For Pump) [NovoLOG 0.01 unit SQ-PUMP CONTINUOUS MDD 05/28/18 02/03/23 (For Pump)] 60 UNITS Vitamin B Complex 1 cap PO DAILY 05/28/18 02/03/23 Isosorbide Mononitrate ER [Imdur] 60 mg PO BID 07/05/18 02/03/23 calcitrioL [Calcitriol] 0.25 mcg PO DAILY 07/05/18 02/03/23 Pramipexole [Mirapex] 0.5 mg PO HS 05/02/19 02/03/23 Ranolazine [Ranexa] 500 mg PO BID 05/02/19 02/03/23 Propranolol [Inderal] 20 mg PO DAILY 07/28/20 02/03/23 Dulaglutide [Trulicity] 1.5 mg SQ VALLECILLO 05/23/21 02/03/23 Albuterol Inhaler [Ventolin Hfa 2 puff INHALATION RT-Q4H PRN 08/10/21 02/03/23 Inhaler] Fluticasone Propion/Salmeterol 1 puff INHALATION RT-BID PRN 08/10/21 02/03/23 [Wixela 100-50 Inhub] Aspirin EC [Ecotrin Low Dose] 81 mg PO HS 02/21/22 02/03/23 Cholecalciferol [Vitamin D3 (25 25 mcg PO DAILY 02/21/22 02/03/23 Mcg = 1000 Iu)] Glucagon Emergency Kit 1 mg IM ONCE PRN 02/21/22 02/03/23 Escitalopram [Lexapro] 10 mg PO DAILY 01/01/23 02/03/23 amLODIPine [Norvasc] 5 mg PO BID 02/03/23 02/03/23 Previous Rx's Medication Instructions Recorded Furosemide [Lasix] 40 mg PO DAILY 30 Days #30 tablet 10/20/21 hydrALAZINE HCL [Apresoline] 25 mg PO BID #60 tab 01/03/23 Levofloxacin [Levaquin] 250 mg PO DAILY 10 Days #1 tablet 02/04/23 Neomycin/Bacitracin/Polymyxinb 1 applic TOPICAL DAILY #15 gm 02/04/23 [Neosporin Ointment] Allergies Allergy/AdvReac Type Severity Reaction Status Date / Time atorvastatin [From Lipitor] AdvReac Unknown Verified 02/03/23 22:19 baclofen AdvReac Unknown Verified 02/03/23 22:19 Review of Systems ROS Other: All systems not noted in ROS Statement are negative. <Agata Mann - Last Filed: 02/03/23 18:22> ROS Other: All systems not noted in ROS Statement are negative. <SiobhanJude Roxanna - Last Filed: 02/15/23 19:35> ROS Statement: Those systems with pertinent positive or pertinent negative responses have been documented in the HPI. Past Medical History Past Medical History: Coronary Artery Disease (CAD), Chest Pain / Angina, Heart Failure, Diabetes Mellitus, Hyperlipidemia, Hypertension, Myocardial Infarction ([place]), Renal Disease, Sleep Apnea/CPAP/BIPAP Additional Past Medical History / Comment(s): 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, coronary artery disease, diabetes mellitus, hypertension, chronic renal failure, hyperlipidemia, JEN, pt has insulin pump Last Myocardial Infarction Date:: 03/04/14 History of Any Multi-Drug Resistant Organisms: None Reported Past Surgical History: Cholecystectomy, Heart Catheterization, Heart Catheterization With Stent, Orthopedic Surgery Additional Past Surgical History / Comment(s): shoulder, hemmroid, cardiac stent in june 2014, eye surgery, 3-4 cardiac stents Past Anesthesia/Blood Transfusion Reactions: No Reported Reaction Additional Past Anesthesia/Blood Transfusion Reaction / Comment(s): Never had a blood transfusion Date of Last Stent Placement:: 05/2014 Past Psychological History: Anxiety Smoking Status: Former smoker Past Alcohol Use History: None Reported Past Drug Use History: None Reported - Past Family History Father Family Medical History: Cancer Additional Family Medical History / Comment(s): bladder cancer Mother Family Medical History: Diabetes Mellitus Additional Family Medical History / Comment(s): Pancreatic CA <Agata Mann - Last Filed: 02/03/23 18:22> General Exam Limitations: no limitations <Agata Mann - Last Filed: 02/03/23 18:22> General appearance: alert, in no apparent distress, anxious Head exam: Present: atraumatic, normocephalic, normal inspection Eye exam: Present: normal appearance, PERRL, EOMI. Absent: scleral icterus, conjunctival injection, periorbital swelling ENT exam: Present: normal exam, mucous membranes moist, other (Left ear is signi ficantly swollen with erythema) Neck exam: Present: normal inspection. Absent: tenderness, meningismus, lymphadenopathy Respiratory exam: Present: normal lung sounds bilaterally. Absent: respiratory distress, wheezes, rales, rhonchi, stridor Cardiovascular Exam: Present: regular rate, normal rhythm, normal heart sounds. Absent: systolic murmur, diastolic murmur, rubs, gallop, clicks GI/Abdominal exam: Present: soft, normal bowel sounds. Absent: distended, tenderness, guarding, rebound, rigid Extremities exam: Present: normal inspection, full ROM, normal capillary refill. Absent: tenderness, pedal edema, joint swelling, calf tenderness Back exam: Present: normal inspection Neurological exam: Present: alert, oriented X3, CN II-XII intact Psychiatric exam: Present: normal affect, normal mood Skin exam: Present: warm, dry, intact, normal color. Absent: rash <Jude Mccann - Last Filed: 02/15/23 19:35> - General Exam Comments Initial Comments: Visual Physical Exam Vital signs reviewed General: Well-appearing, nontoxic, no acute distress. Head: Normocephalic, atraumatic Eyes: PERRLA, EOMI ENT: Airway patent, swelling and erythema to the left pinna Chest: Nonlabored breathing Skin: No visual rash, normal skin tone Neuro: Alert and oriented 3 Musculoskeletal: No gross abnormalities (Agata Mann) Course <Jude Mccann B - Last Filed: 02/15/23 19:35> Vital Signs 02/03/23 02/03/23 02/04/23 17:42 21:49 03:28 Temperature 101.1 F H Pulse Rate 76 68 60 Respiratory 20 20 16 Rate Blood Pressure 164/78 158/78 153/74 O2 Sat by Pulse 97 98 98 Oximetry 02/04/23 02/04/23 02/04/23 06:03 08:00 14:01 Temperature 97.1 F L Pulse Rate 65 64 62 Respiratory 20 18 18 Rate Blood Pressure 145/80 162/80 152/80 O2 Sat by Pulse 98 98 98 Oximetry 02/04/23 17:20 Temperature 97.8 F Pulse Rate 62 Respiratory 16 Rate Blood Pressure 149/98 O2 Sat by Pulse 100 Oximetry - Reevaluation(s) Reevaluation #1: 02/03/23 22:53 Medical records reviewed (Jude Mccann) Reevaluation #2: 02/03/23 22:53 Patient symptoms are improving (Jude Mccann) Reevaluation #3: 02/03/23 22:54 Patient informed results questions answered (Jude Mccann) Reevaluation #4: 02/03/23 22:54 Was pt. sent in by a medical professional or institution? @ -no Did you speak to anyone other than the patient for history? @ -no Did you review nursing and triage notes? @ -agree Were old charts reviewed? @ -yes Differential Diagnosis? @ -prior EKG interpreted by me (3pts min.)? @ -yes X-rays interpreted by me (1pt min.)? @ -no CT interpreted by me (1pt min.)? @ -yes U/S interpreted by me (1pt. min.)? @ -no What testing was considered but not performed? (CT, X-rays, U/S, labs)? Why? @ -no What meds were considered but not given? Why? @ -no Did you discuss the management of the patient with other professionals? @ -no Did you reconcile home meds? @ -no Was smoking cessation discussed for >3mins.? @ -no Was critical care preformed (if so, how long)? @ -no Were there social determinants of health that impacted care today? How? (Homelessness, low income, unemployed, alcoholism, drug addiction, transportation, low edu. Level, literacy, decrease access to med. care, nursing home, rehab)? @ -no Was there de-escalation of care discussed even if they declined? (Discuss DNR or withdrawal of care, Hospice)? @ -no What co-morbidities impacted this encounter? (DM, HTN, Smoking, COPD, CAD, Cancer, CVA, Hep., AIDS, mental health diagnosis, sleep apnea, morbid obesity)? @ -none Was patient admitted / discharged? @ -72 male who presents to the emergency 5 day for evaluation patient presents today for evaluation of severe left ear pain and swelling. Fever. Symptom management. Patient will be admitted for IV antibiotics secondary significant otitis externa with history of mastoiditis Admitted Undiagnosed new problem with uncertain prognosis? @ -no Drug Therapy requiring intensive monitoring for toxicity (Heparin, Nitro, Insulin, Cardizem)? @ -no Were any procedures done? @ -no Diagnosis/symptom? @ -Left otitis media, otitis externa Acute, or Chronic, or Acute on Chronic? @ -acute Uncomplicated (without systemic symptoms) or Complicated (systemic symptoms)? @ -complicated Side effects of treatment? @ -no Exacerbation, Progression, or Severe Exacerbation] @ -no Poses a threat to life or bodily function? @ -yes if significant pain abscess develops (Jude Mccann) Reevaluation #5: 02/03/23 22:54 Differential Fever: Pneumonia, viral URI, endocarditis, myocarditis, pericarditis, otitis, sinusitis, peritonsillar Abscess, retropharyngeal Abscess, epiglottitis, annemarie tonitis, appendicitis, Maeve cystitis, diverticulitis, hepatitis, colitis, UTI, PID, TOA, pyelonephritis, prostatitis, epididymitis, meningitis, encephalitis, pulmonary embolism, CVA, thyroid storm, pancreatitis, adrenal crisis, cavernous sinus thrombosis, this is not meant to be an all-inclusive list. (Jude Mccann) - Consultations Consultation #1: Spoke with admitting her agrees to admit this patient (Jude Mccann) EKG Findings - EKG Comments: EKG Findings:: EKG is sinus 74 NC 257 QRS 102 QTC 453 - EKG Results: EKG: interpreted by ERMD <Jude Mccann - Last Filed: 02/15/23 19:35> Medical Decision Making - Lab Data Result diagrams: 02/03/23 22:40 02/03/23 22:40 - EKG Data -: EKG Interpreted by Nh - Radiology Data Radiology results: report reviewed (CT IAC negative for acute disease, otitis media), image reviewed <Jude Mccann - Last Filed: 02/15/23 19:35> - Medical Decision Making 72 male who presents to the emergency 5 day for evaluation patient presents today for evaluation of severe left ear pain and swelling. Fever. Symptom management. Patient will be admitted for IV antibiotics secondary significant otitis externa with history of mastoiditis (Jude Mccann) - Lab Data Lab Results 02/03/23 02/03/23 02/03/23 Range/Units 22:40 22:40 22:40 WBC 6.2 (3.8-10.6) k/uL RBC 4.63 (4.30-5.90) m/uL Hgb 13.6 (13.0-17.5) gm/dL Hct 41.1 (39.0-53.0) % MCV 88.7 (80.0-100.0) fL MCH 29.3 (25.0-35.0) pg MCHC 33.0 (31.0-37.0) g/dL RDW 13.0 (11.5-15.5) % Plt Count 195 (150-450) k/uL MPV 8.1 Neutrophils % (Manual) 73 % Lymphocytes % (Manual) 18 % Monocytes % (Manual) 9 % Neutrophils # (Manual) 4.53 (1.3-7.7) k/uL Lymphocytes # (Manual) 1.12 (1.0-4.8) k/uL Monocytes # (Manual) 0.56 (0-1.0) k/uL Nucleated RBCs 0 (0-0) /100 WBC Manual Slide Review Performed PT 10.8 (9.0-12.0) sec INR 1.0 (<1.2) APTT 24.4 (22.0-30.0) sec Sodium 134 L (137-145) mmol/L Potassium 4.3 (3.5-5.1) mmol/L Chloride 98 (98-107) mmol/L Carbon Dioxide 24 (22-30) mmol/L Anion Gap 12 mmol/L BUN 40 H (9-20) mg/dL Creatinine 3.26 H (0.66-1.25) mg/dL Est GFR (CKD-EPI)AfAm 21 (>60 ml/min/1.73 sqM) Est GFR (CKD-EPI)NonAf 18 (>60 ml/min/1.73 sqM) Glucose 150 H (74-99) mg/dL Calcium 8.9 (8.4-10.2) mg/dL Phosphorus 3.6 (2.5-4.5) mg/dL Magnesium 1.9 (1.6-2.3) mg/dL Total Bilirubin 0.6 (0.2-1.3) mg/dL AST 22 (17-59) U/L ALT 17 (4-49) U/L Alkaline Phosphatase 111 (38-126) U/L Troponin I (0.000-0.034) ng/mL Total Protein 7.7 (6.3-8.2) g/dL Albumin 3.9 (3.5-5.0) g/dL 02/03/23 Range/Units 22:40 WBC (3.8-10.6) k/uL RBC (4.30-5.90) m/uL Hgb (13.0-17.5) gm/dL Hct (39.0-53.0) % MCV (80.0-100.0) fL MCH (25.0-35.0) pg MCHC (31.0-37.0) g/dL RDW (11.5-15.5) % Plt Count (150-450) k/uL MPV Neutrophils % (Manual) % Lymphocytes % (Manual) % Monocytes % (Manual) % Neutrophils # (Manual) (1.3-7.7) k/uL Lymphocytes # (Manual) (1.0-4.8) k/uL Monocytes # (Manual) (0-1.0) k/uL Nucleated RBCs (0-0) /100 WBC Manual Slide Review PT (9.0-12.0) sec INR (<1.2) APTT (22.0-30.0) sec Sodium (137-145) mmol/L Potassium (3.5-5.1) mmol/L Chloride (98-107) mmol/L Carbon Dioxide (22-30) mmol/L Anion Gap mmol/L BUN (9-20) mg/dL Creatinine (0.66-1.25) mg/dL Est GFR (CKD-EPI)AfAm (>60 ml/min/1.73 sqM) Est GFR (CKD-EPI)NonAf (>60 ml/min/1.73 sqM) Glucose (74-99) mg/dL Calcium (8.4-10.2) mg/dL Phosphorus (2.5-4.5) mg/dL Magnesium (1.6-2.3) mg/dL Total Bilirubin (0.2-1.3) mg/dL AST (17-59) U/L ALT (4-49) U/L Alkaline Phosphatase (38-126) U/L Troponin I 0.014 (0.000-0.034) ng/mL Total Protein (6.3-8.2) g/dL Albumin (3.5-5.0) g/dL Disposition <Agata Mann - Last Filed: 02/03/23 18:22> Is patient prescribed a controlled substance at d/c from ED?: No Time of Disposition: 22:45 <Jude Mccann - Last Filed: 02/15/23 19:35> Clinical Impression: Mastoiditis, Otitis externa, Fever, Left otitis externa, Left otitis media Disposition: ADMITTED IP TO THIS HOSP Condition: Stable
[2023-02-03] MEDS ORDERED: SODIUM CHLORIDE 0.9% 1,000 ML IV STA (21:55)
[2023-02-03] MEDS ORDERED: LEVOFLOXACIN 750MG-D5W PMX 750 MG in DEXTROSE/WATER 1 150ML.BAG IVPB STA (21:55)
[2023-02-03] MEDS ORDERED: DEXAMETHASONE SOD PHOSPHATE 10 MG/ML 1 ML VIAL IVP STA (21:56)
[2023-02-03] MEDS ORDERED: KETOROLAC 15 MG/ML 1 ML VIAL IVP STA (21:56)
[2023-02-03] MEDS ORDERED: ACETAMINOPHEN TAB 500 MG TAB PO STA (21:56)
[2023-02-03] MEDS ORDERED: CIPROFLOXACIN-DEXAMETH 0.3-0.1% DROPS 7.5 ML BTL LEFT EAR ONE (22:00)
[2023-02-03 22:55] LABS: HCT 41.1 % (39.0-53.0); HGB 13.6 gm/dL (13.0-17.5); MCH 29.3 pg (25.0-35.0); MCV 88.7 fL (80.0-100.0); Mean Platelet Volume 8.1; Platelet Count 195 k/uL (150-450); RBC 4.63 m/uL (4.30-5.90); WBC 6.2 k/uL (3.8-10.6)
[2023-02-03 23:00] LABS: Partial Thromboplastin Time 24.4 sec (22.0-30.0); Prothrombin Time 10.8 sec (9.0-12.0)
[2023-02-03 23:12] LABS: ALT 17 U/L (4-49); AST 22 U/L (17-59); African American GFR (CKD) 21 (>60 ml/min/1.73 sqM); Albumin 3.9 g/dL (3.5-5.0); Alkaline Phosphatase 111 U/L (38-126); Anion Gap 12 mmol/L; Blood Urea Nitrogen 40 mg/dL (9-20); Calcium 8.9 mg/dL (8.4-10.2); Carbon Dioxide 24 mmol/L (22-30); Chloride 98 mmol/L (98-107); Glucose 150 mg/dL (74-99); Magnesium 1.9 mg/dL (1.6-2.3); Non-African American GFR(CKD) 18 (>60 ml/min/1.73 sqM); Phosphorus 3.6 mg/dL (2.5-4.5); Potassium 4.3 mmol/L (3.5-5.1); Sodium 134 mmol/L (137-145); Total Bilirubin 0.6 mg/dL (0.2-1.3); Total Protein 7.7 g/dL (6.3-8.2)
[2023-02-03 23:24] LABS: Lymphocytes # (M) 1.12 k/uL (1.0-4.8); Monocytes # (M) 0.56 k/uL (0-1.0); Neutrophils # (M) 4.53 k/uL (1.3-7.7); Neutrophils % (M) 73 %; Nucleated Red Blood Cells 0 /100 WBC (0-0); Total Cells Counted 100
[2023-02-04] MEDS ORDERED: SYMBICORT 80-4.5 MCG INHALER INHALATION PRN (00:54)
--- NOTE | 2023-02-04 00:56 | P.HPIM ---
History of Present Illness H&P Date: 02/04/23 The patient is a 72-year-old male with a PMH of mild systolic CHF, CAD status post stents, COPD, chronic kidney disease, hypertension, hyperlipidemia, type II DM, who presents to the emergency room with complaints of left ear swelling and pain. The patient reports that her symptoms started roughly a week and a half ago with a mild itch that gradually worsened. He reports then developing swelling of the left earlobe. He reports having difficulty hearing out of that ear. The patient previously had right-sided otitis media and externa in 02/19. He reports that the pain is 3 out of 10 on maximal intensity. He also reports subjective fever and chills at home. Denies experiencing chest discomfort, shortness of breath, cough. EKG in emergency room revealed sinus rhythm with first-degree AV block and right bundle branch block at [address]/T-wave to his daughter's reviewed by me. Laboratory evaluation was remarkable for BUN 40, creatinine 3.6 (at baseline). ED documentation reviewed and case discussed with ED provider. Review of systems: Pertinent positives and negatives as discussed in HPI, a complete review of systems was performed and all other systems are negative. Physical examination: Vital signs reviewed General: non toxic, no distress, appears at stated age, obese Derm: no unusual rashes/lesions, warm Head: atraumatic, normocephalic, symmetric Eyes: EOMI, no lid lag, anicteric sclera, pupils equal round reactive to light ENT: Nose atruamatic, L ear diffusely erythematous and swollen with mild tenderness, L tympanic membrane also appearing erythematous Neck: No cervical lymphadenopathy, trachea midline, supple Mouth: no lip lesion, mucus membranes moist Cardiovascular: S1S2 reg, no murmur, positive dorsalis pedis pulse bilateral, no edema Lungs: CTA bilateral, no rhonchi, no rales, no accessory muscle use Abdominal: soft, nontender to palpation, no guarding Ext: muscle strength 5 out of 5 in all 4 extremities grossly, no gross muscle atrophy, no contractures, Neuro: CN II-XI grossly intact, no gross focal neuro deficits Psych: Alert, oriented, appropriate affect Assessment: Moderate Left-sided otitis externa and media (canal partially occluded with moderate pain) Chronic conditions: COPD, mild CHF, chronic kidney disease, COPD, hypertension, hyperlipidemia, type II DM Imaging: EKG in emergency room revealed sinus rhythm with first-degree AV block and right bundle branch block at [address]/T-wave to his daughter's reviewed by me. Data Review: Laboratory evaluation was remarkable for BUN 40, creatinine 3.6 (at baseline). Plan: Continue patient on Ciprodex otic solution as well as Levaquin 500 mg by mouth daily [facility] consult Follow-up CT internal auditory canals without contrast Continue with normal saline IV fluids 130 mL/hr C/w home medications Insulin sliding scale and blood glucose monitoring DVT prophylaxis: Heparin subq The patient is admitted with an anticipated greater than 2 midnight stay for evaluation of otitis externa CODE STATUS: Full Code Discussed with: Patient Anticipated discharge place: Home Past Medical History Past Medical History: Coronary Artery Disease (CAD), Chest Pain / Angina, Heart Failure, Diabetes Mellitus, Hyperlipidemia, Hypertension, Myocardial Infarction ([place]), Renal Disease, Sleep Apnea/CPAP/BIPAP Additional Past Medical History / Comment(s): 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, coronary artery disease, diabetes mellitus, hypertension, chronic renal failure, hy perlipidemia, JEN, pt has insulin pump Last Myocardial Infarction Date:: 03/04/14 History of Any Multi-Drug Resistant Organisms: None Reported Past Surgical History: Cholecystectomy, Heart Catheterization, Heart Catheterization With Stent, Orthopedic Surgery Additional Past Surgical History / Comment(s): shoulder, hemmroid, cardiac stent in june 2014, eye surgery, 3-4 cardiac stents Past Anesthesia/Blood Transfusion Reactions: No Reported Reaction Additional Past Anesthesia/Blood Transfusion Reaction / Comment(s): Never had a blood transfusion Date of Last Stent Placement:: 05/2014 Past Psychological History: Anxiety Smoking Status: Former smoker Past Alcohol Use History: None Reported Past Drug Use History: None Reported - Past Family History Father Family Medical History: Cancer Additional Family Medical History / Comment(s): bladder cancer Mother Family Medical History: Diabetes Mellitus Additional Family Medical History / Comment(s): Pancreatic CA Medications and Allergies Home Medications Medication Instructions Recorded Confirmed Type Cetirizine HCl 10 mg PO DAILY 03/03/14 02/03/23 History Nitroglycerin Sl Tabs [Nitrostat] 0.4 mg SL Q5M PRN 03/03/14 02/03/23 History Rosuvastatin Calcium [Crestor] 40 mg PO HS 03/03/14 02/03/23 History Ezetimibe [Zetia] 10 mg PO DAILY 05/19/16 02/03/23 History Ferrous Sulfate [Iron (65 MG 325 mg PO DAILY 05/19/16 02/03/23 History Elemental)] Ergocalciferol (Vitamin D2) 50,000 unit PO Q14D 05/28/18 02/03/23 History [Vitamin D2] Febuxostat [Uloric] 40 mg PO DAILY 05/28/18 02/03/23 History Insulin Aspart (For Pump) [NovoLOG 0.01 unit SQ-PUMP CONTINUOUS MDD 05/28/18 02/03/23 History (For Pump)] 60 UNITS Vitamin B Complex 1 cap PO DAILY 05/28/18 02/03/23 History Isosorbide Mononitrate ER [Imdur] 60 mg PO BID 07/05/18 02/03/23 History calcitrioL [Calcitriol] 0.25 mcg PO DAILY 07/05/18 02/03/23 History Pramipexole [Mirapex] 0.5 mg PO HS 05/02/19 02/03/23 History Ranolazine [Ranexa] 500 mg PO BID 05/02/19 02/03/23 History Propranolol [Inderal] 20 mg PO DAILY 07/28/20 02/03/23 History Dulaglutide [Trulicity] 1.5 mg SQ VALLECILLO 05/23/21 02/03/23 History Albuterol Inhaler [Ventolin Hfa 2 puff INHALATION RT-Q4H PRN 08/10/21 02/03/23 History Inhaler] Fluticasone Propion/Salmeterol 1 puff INHALATION RT-BID PRN 08/10/21 02/03/23 History [Wixela 100-50 Inhub] Furosemide [Lasix] 40 mg PO DAILY 30 Days #30 tablet 10/20/21 02/03/23 Rx Aspirin EC [Ecotrin Low Dose] 81 mg PO HS 02/21/22 02/03/23 History Cholecalciferol [Vitamin D3 (25 25 mcg PO DAILY 02/21/22 02/03/23 History Mcg = 1000 Iu)] Glucagon Emergency Kit 1 mg IM ONCE PRN 02/21/22 02/03/23 History Escitalopram [Lexapro] 10 mg PO DAILY 01/01/23 02/03/23 History hydrALAZINE HCL [Apresoline] 25 mg PO BID #60 tab 01/03/23 02/03/23 Rx Cefdinir 300 mg PO DAILY 02/03/23 02/03/23 History amLODIPine [Norvasc] 5 mg PO BID 02/03/23 02/03/23 History Allergies Allergy/AdvReac Type Severity Reaction Status Date / Time atorvastatin [From Lipitor] AdvReac Unknown Verified 02/03/23 22:19 baclofen AdvReac Unknown Verified 02/03/23 22:19 Physical Exam Vitals: Vital Signs Temp Pulse Resp BP Pulse Ox 02/03/23 17:42 101.1 F H 76 20 164/78 97 Intake and Output 02/03/23 02/03/23 02/04/23 14:59 22:59 06:59 Other: Weight 106.594 kg Results CBC & Chem 7: 02/03/23 22:40 02/03/23 22:40 Labs: Abnormal Lab Results - Last 24 Hours (Table) 02/03/23 Range/Units 22:40 Sodium 134 L (137-145) mmol/L BUN 40 H (9-20) mg/dL Creatinine 3.26 H (0.66-1.25) mg/dL Glucose 150 H (74-99) mg/dL
--- NOTE | 2023-02-04 01:51 | CT ---
EXAM: CT Temporal Bones Without Intravenous Contrast CLINICAL HISTORY: ITS.REASON CT Reason: R ear pain TECHNIQUE: Axial computed tomography images of the temporal bones without intravenous contrast. CTDI is 31.4 mGy and DLP is 226.8 mGy-cm. This CT exam was performed using one or more of the following dose reduction techniques: automated exposure control, adjustment of the mA and/or kV according to patient size, and/or use of iterative reconstruction technique. COMPARISON: No relevant prior studies available. FINDINGS: Right ossicles and middle ear: Unremarkable. Right cochlea: Unremarkable. Right vestibule: Unremarkable. Right semicircular canals: Unremarkable. Right vestibular and cochlear aqueducts: Unremarkable. Right facial nerve canal: Unremarkable. Right internal auditory canal: Unremarkable. Right external auditory canal: Severely narrowed. Right carotid canal: Unremarkable. Right jugular foramen: Unremarkable. Right mastoid air cells: Unremarkable. Right temporomandibular joint: Unremarkable. Left ossicles and middle ear: Unremarkable. Left cochlea: Unremarkable. Left vestibule: Unremarkable. Left semicircular canals: Unremarkable. Left vestibular and cochlear aqueducts: Unremarkable. Left facial nerve canal: Unremarkable. Left internal auditory canal: Unremarkable. Left external auditory canal: Severely narrowed. Left carotid canal: Unremarkable. Left jugular foramen: Unremarkable. Left mastoid air cells: Unremarkable. Left temporomandibular joint: Unremarkable. Bones/joints: No acute fracture. Soft tissues: Unremarkable. IMPRESSION: Severely narrowed bilateral EAC. Correlate with otitis media. Mastoids and middle ear are clear.
[2023-02-04] MEDS ORDERED: NALOXONE 0.4 MG/ML 1 ML VIAL IV PRN (03:04)
[2023-02-04 08:05] LABS: Glucose,Whole Blood 306 mg/dL (70-110)
[2023-02-04] MEDS: INSULIN ASPART (NovoLOG) 100 UNIT/ML VIAL SQ SCH ×2 (08:06→13:20)
[2023-02-04] MEDS ORDERED: amLODIPine 5 MG TAB PO SCH (09:00)
[2023-02-04] MEDS ORDERED: ESCITALOPRAM 10 MG TAB PO SCH (09:00)
[2023-02-04] MEDS ORDERED: hydrALAZINE HCL 25 MG TAB PO SCH (09:00)
[2023-02-04] MEDS ORDERED: LEVOFLOXACIN 500 MG TAB PO SCH (09:00)
[2023-02-04] MEDS ORDERED: RANOLAZINE 500 MG TAB.ER.12H PO SCH (09:00)
[2023-02-04] MEDS ORDERED: CIPROFLOXACIN-DEXAMETH 0.3-0.1% DROPS 7.5 ML BTL LEFT EAR SCH (09:00)
[2023-02-04] MEDS ORDERED: EZETIMIBE 10 MG TAB PO SCH (09:00)
[2023-02-04] MEDS ORDERED: PROPRANOLOL 20 MG TAB PO SCH (09:00)
[2023-02-04] MEDS ORDERED: ISOSORBIDE MONONITRATE ER 60 MG TAB.ER.24H PO SCH (09:00)
[2023-02-04] MEDS ORDERED: allopurinoL 100 MG TAB PO SCH (09:00)
[2023-02-04] MEDS ORDERED: FUROSEMIDE 40 MG TAB PO SCH (09:00)
[2023-02-04 12:17] LABS: Glucose,Whole Blood 305 mg/dL (70-110)
[2023-02-04 14:04] VITALS: PULSE 62
--- NOTE | 2023-02-04 16:51 | P.GSCN ---
History of Present Illness Consult date: 02/04/23 Reason for Consult: Swollen left ear Requesting physician: Jude Mccann History of present illness: This is a 72-year-old white male who last week. The scab on his left ear at the pars triangularis. Over the last several days the ear swelled and now the entire auricle is erythematous swollen and tender. The ear lobule is even quite large. It is warm to touch and painful to touch. He has no change in hearing. Denies any otorrhea. Denies any other otologic symptoms. Review of Systems - Constitutional Reports as per HPI - EENT Ears, nose, mouth and throat: Reports as per HPI - Cardiovascular Reports as per HPI - Respiratory Reports as per HPI - Gastrointestinal Reports as per HPI - Genitourinary Reports as per HPI - Musculoskeletal Reports as per HPI - Integumentary Reports as per HPI - Neurological Reports as per HPI - Psychiatric Reports as per HPI - Endocrine Reports as per HPI - Hematologic/Lymphatic Reports as per HPI - Allergic/Immunologic Reports as per HPI Past Medical History Past Medical History: Coronary Artery Disease (CAD), Chest Pain / Angina, Heart Failure, Diabetes Mellitus, Hyperlipidemia, Hypertension, Myocardial Infarction (LA), Renal Disease, Sleep Apnea/CPAP/BIPAP Additional Past Medical History / Comment(s): 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, coronary artery disease, diabetes mellitus, hypertension, chronic renal failure, hyperlipidemia, JEN, pt has insulin pump Last Myocardial Infarction Date:: 03/04/14 History of Any Multi-Drug Resistant Organisms: None Reported Past Surgical History: Cholecystectomy, Heart Catheterization, Heart Catheterization With Stent, Orthopedic Surgery Additional Past Surgical History / Comment(s): shoulder, hemmroid, cardiac stent in june 2014, eye surgery, 3-4 cardiac stents Past Anesthesia/Blood Transfusion Reactions: No Reported Reaction Additional Past Anesthesia/Blood Transfusion Reaction / Comm: Never had a blood transfusion Date of Last Stent Placement:: 05/2014 Past Psychological History: Anxiety Smoking Status: Former smoker Past Alcohol Use History: None Reported Past Drug Use History: None Reported - Past Family History Father Family Medical History: Cancer Additional Family Medical History / Comment(s): bladder cancer Mother Family Medical History: Diabetes Mellitus Additional Family Medical History / Comment(s): Pancreatic CA Medications and Allergies Home Medications Medication Instructions Recorded Confirmed Type Cetirizine HCl 10 mg PO DAILY 03/03/14 02/03/23 History Nitroglycerin Sl Tabs [Nitrostat] 0.4 mg SL Q5M PRN 03/03/14 02/03/23 History Rosuvastatin Calcium [Crestor] 40 mg PO HS 03/03/14 02/03/23 History Ezetimibe [Zetia] 10 mg PO DAILY 05/19/16 02/03/23 History Ferrous Sulfate [Iron (65 MG 325 mg PO DAILY 05/19/16 02/03/23 History Elemental)] Ergocalciferol (Vitamin D2) 50,000 unit PO Q14D 05/28/18 02/03/23 History [Vitamin D2] Febuxostat [Uloric] 40 mg PO DAILY 05/28/18 02/03/23 History Insulin Aspart (For Pump) [NovoLOG 0.01 unit SQ-PUMP CONTINUOUS MDD 05/28/18 02/03/23 History (For Pump)] 60 UNITS Vitamin B Complex 1 cap PO DAILY 05/28/18 02/03/23 History Isosorbide Mononitrate ER [Imdur] 60 mg PO BID 07/05/18 02/03/23 History calcitrioL [Calcitriol] 0.25 mcg PO DAILY 07/05/18 02/03/23 History Pramipexole [Mirapex] 0.5 mg PO HS 05/02/19 02/03/23 History Ranolazine [Ranexa] 500 mg PO BID 05/02/19 02/03/23 History Propranolol [Inderal] 20 mg PO DAILY 07/28/20 02/03/23 History Dulaglutide [Trulicity] 1.5 mg SQ VALLECILLO 05/23/21 02/03/23 History Albuterol Inhaler [Ventolin Hfa 2 puff INHALATION RT-Q4H PRN 08/10/21 02/03/23 History Inhaler] Fluticasone Propion/Salmeterol 1 puff INHALATION RT-BID PRN 08/10/21 02/03/23 History [Wixela 100-50 Inhub] Furosemide [Lasix] 40 mg PO DAILY 30 Days #30 tablet 10/20/21 02/03/23 Rx Aspirin EC [Ecotrin Low Dose] 81 mg PO HS 02/21/22 02/03/23 History Cholecalciferol [Vitamin D3 (25 25 mcg PO DAILY 02/21/22 02/03/23 History Mcg = 1000 Iu)] Glucagon Emergency Kit 1 mg IM ONCE PRN 02/21/22 02/03/23 History Escitalopram [Lexapro] 10 mg PO DAILY 01/01/23 02/03/23 History hydrALAZINE HCL [Apresoline] 25 mg PO BID #60 tab 01/03/23 02/03/23 Rx Cefdinir 300 mg PO DAILY 02/03/23 02/03/23 History amLODIPine [Norvasc] 5 mg PO BID 02/03/23 02/03/23 History Allergies Allergy/AdvReac Type Severity Reaction Status Date / Time atorvastatin [From Lipitor] AdvReac Unknown Verified 02/03/23 22:19 baclofen AdvReac Unknown Verified 02/03/23 22:19 Surgical - Exam Osteopathic Statement: *. No significant issues noted on an osteopathic structural exam other than those noted in the History and Physical/Consult. Vital Signs Temp Pulse Resp BP Pulse Ox 101.1 F H 76 20 164/78 97 02/03/23 17:42 02/03/23 17:42 02/03/23 17:42 02/03/23 17:42 02/03/23 17:42 - General well developed, well nourished, obese - Eyes PERRL, normal ocular movement - ENT The right auricle is unremarkable the left auricle is quite swollen and tender and hyperemic. Both ear canals are clear tympanic members are without bulging or retraction nose is patent no tumors polyps or masses. Scalp shows no parasites no sinus tenderness mouth and throat no abnormal lesions noted no neck tumors or masses. - Integumentary no rash - Neurologic normal coordination, normal sensation - Musculoskeletal normal gait, normal posture - Psychiatric oriented to time, oriented to person, oriented to place, speech is normal Results - Labs 02/03/23 22:40 02/03/23 22:40 Abnormal Lab Results - Last 24 Hours (Table) 02/03/23 02/04/23 02/04/23 Range/Units 22:40 08:00 12:14 Sodium 134 L (137-145) mmol/L BUN 40 H (9-20) mg/dL Creatinine 3.26 H (0.66-1.25) mg/dL Glucose 150 H (74-99) mg/dL POC Glucose (mg/dL) 306 H 305 H (70-110) mg/dL Diabetes panel 02/03/23 Range/Units 22:40 Sodium 134 L (137-145) mmol/L Potassium 4.3 (3.5-5.1) mmol/L Chloride 98 (98-107) mmol/L Carbon Dioxide 24 (22-30) mmol/L BUN 40 H (9-20) mg/dL Creatinine 3.26 H (0.66-1.25) mg/dL Glucose 150 H (74-99) mg/dL Calcium 8.9 (8.4-10.2) mg/dL AST 22 (17-59) U/L ALT 17 (4-49) U/L Alkaline Phosphatase 111 (38-126) U/L Total Protein 7.7 (6.3-8.2) g/dL Albumin 3.9 (3.5-5.0) g/dL Calcium panel 02/03/23 Range/Units 22:40 Calcium 8.9 (8.4-10.2) mg/dL Phosphorus 3.6 (2.5-4.5) mg/dL Albumin 3.9 (3.5-5.0) g/dL Pituitary panel 02/03/23 Range/Units 22:40 Sodium 134 L (137-145) mmol/L Potassium 4.3 (3.5-5.1) mmol/L Chloride 98 (98-107) mmol/L Carbon Dioxide 24 (22-30) mmol/L BUN 40 H (9-20) mg/dL Creatinine 3.26 H (0.66-1.25) mg/dL Glucose 150 H (74-99) mg/dL Calcium 8.9 (8.4-10.2) mg/dL Adrenal panel 02/03/23 Range/Units 22:40 Sodium 134 L (137-145) mmol/L Potassium 4.3 (3.5-5.1) mmol/L Chloride 98 (98-107) mmol/L Carbon Dioxide 24 (22-30) mmol/L BUN 40 H (9-20) mg/dL Creatinine 3.26 H (0.66-1.25) mg/dL Glucose 150 H (74-99) mg/dL Calcium 8.9 (8.4-10.2) mg/dL Total Bilirubin 0.6 (0.2-1.3) mg/dL AST 22 (17-59) U/L ALT 17 (4-49) U/L Alkaline Phosphatase 111 (38-126) U/L Total Protein 7.7 (6.3-8.2) g/dL Albumin 3.9 (3.5-5.0) g/dL Assessment and Plan (1) Chondritis of auricle Current Visit: Yes Status: Acute Code(s): H61.039 - CHONDRITIS OF EXTERNAL E AR, UNSPECIFIED EAR SNOMED Code(s): 528550739 Plan: This patient has a left auricular chondritis secondary to an taking on the outer portion of the anterior auricle. 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 I'm recommending Levaquin a 250 mg a day along with topical application of Neosporin ointment. Patient has seen my partner in the past Dr. Be will follow up next week with Dr. Be. He is to call back if worse. Patient is diabetic and he is to maintain tight control of his diabetes. He is to rest with head elevated heavy lifting or bending. Time with Patient: Greater than 30
--- NOTE | 2023-02-04 17:01 | P.DS ---
Providers Date of admission: 02/04/23 03:04 Expected date of discharge: 02/04/23 Attending physician: Kristen Becerra MD Consults: 02/04/23 00:53 Consult Physician Urgent Consulting Provider: Terrence Campos Consult Reason/Comments: Otitis externa/media Do you want consulting provider notified?: Yes Primary care physician: Marlon Valentino MD Hospital Course: Discharge Diagnosis: Moderate Left-sided otitis externa and media Type 2 diabetes with hyperglycemia Hospital Course: 72-year-old male with a PMH of mild systolic CHF, CAD status post stents, COPD, chronic kidney disease, hypertension, hyperlipidemia, type II DM, who presents to the emergency room with complaints of left ear swelling and pain. EKG in emergency room revealed sinus rhythm with first-degree AV block and right bundle branch block at [address]/T-wave to his daughter's reviewed by me. Laboratory evaluation was remarkable for BUN 40, creatinine 3.6 (at baseline). ENT consulted. Outpatient follow-up. Discharged on oral levofloxacin. Patient seen and examined at bedside. Vital signs reviewed General: non toxic, no distress, appears at stated age, obese Derm: no unusual rashes/lesions, warm Head: atraumatic, normocephalic, symmetric Eyes: EOMI, no lid lag, anicteric sclera, pupils equal round reactive to light ENT: Nose atruamatic, L ear diffusely erythematous and swollen with mild tenderness, L tympanic membrane also appearing erythematous Neck: No cervical lymphadenopathy, trachea midline, supple Mouth: no lip lesion, mucus membranes moist Cardiovascular: S1S2 reg, no murmur, positive dorsalis pedis pulse bilateral, no edema Lungs: CTA bilateral, no rhonchi, no rales, no accessory muscle use Abdominal: soft, nontender to palpation, no guarding Ext: muscle strength 5 out of 5 in all 4 extremities grossly, no gross muscle atrophy, no contractures, Neuro: CN II-XI grossly intact, no gross focal neuro deficits Psych: Alert, oriented, appropriate affect A total of 33 minutes of time were spent preparing this complex discharge summary. Patient was discharged on 02/04/23 at 1659. Patient Condition at Discharge: Stable Plan - Discharge Summary New Discharge Prescriptions: New Neomycin/Bacitracin/Polymyxinb [Neosporin Ointment] 1 applic TOPICAL DAILY #15 gm Levofloxacin [Levaquin] 250 mg PO DAILY 10 Days #1 tablet Continue Rosuvastatin Calcium [Crestor] 40 mg PO HS Cetirizine HCl 10 mg PO DAILY Nitroglycerin Sl Tabs [Nitrostat] 0.4 mg SL Q5M PRN PRN Reason: Chest Pain Ezetimibe [Zetia] 10 mg PO DAILY Ferrous Sulfate [Iron (65 MG Elemental)] 325 mg PO DAILY Febuxostat [Uloric] 40 mg PO DAILY Vitamin B Complex 1 cap PO DAILY Ergocalciferol (Vitamin D2) [Vitamin D2] 50,000 unit PO Q14D Insulin Aspart (For Pump) [NovoLOG (For Pump)] 0.01 unit SQ-PUMP CONTINUOUS MDD 60 UNITS calcitrioL [Calcitriol] 0.25 mcg PO DAILY Isosorbide Mononitrate ER [Imdur] 60 mg PO BID Pramipexole [Mirapex] 0.5 mg PO HS Ranolazine [Ranexa] 500 mg PO BID Propranolol [Inderal] 20 mg PO DAILY Albuterol Inhaler [Ventolin Hfa Inhaler] 2 puff INHALATION RT-Q4H PRN PRN Reason: Shortness Of Breath Fluticasone Propion/Salmeterol [Wixela 100-50 Inhub] 1 puff INHALATION RT-BID PRN PRN Reason: Shortness Of Breath Furosemide [Lasix] 40 mg PO DAILY 30 Days #30 tablet Glucagon Emergency Kit 1 mg IM ONCE PRN PRN Reason: Hypoglycemia Cholecalciferol [Vitamin D3 (25 Mcg = 1000 Iu)] 25 mcg PO DAILY Escitalopram [Lexapro] 10 mg PO DAILY hydrALAZINE HCL [Apresoline] 25 mg PO BID #60 tab Dulaglutide [Trulicity] 1.5 mg SQ VALLECILLO Aspirin EC [Ecotrin Low Dose] 81 mg PO HS amLODIPine [Norvasc] 5 mg PO BID Discontinued Cefdinir 300 mg PO DAILY Discharge Medication List Cetirizine HCl 10 mg PO DAILY 03/03/14 [History] Nitroglycerin Sl Tabs [Nitrostat] 0.4 mg SL Q5M PRN 03/03/14 [History] Rosuvastatin Calcium [Crestor] 40 mg PO HS 03/03/14 [History] Ezetimibe [Zetia] 10 mg PO DAILY 05/19/16 [History] Ferrous Sulfate [Iron (65 MG Elemental)] 325 mg PO DAILY 05/19/16 [History] Ergocalciferol (Vitamin D2) [Vitamin D2] 50,000 unit PO Q14D 05/28/18 [History] Febuxostat [Uloric] 40 mg PO DAILY 05/28/18 [History] Insulin Aspart (For Pump) [NovoLOG (For Pump)] 0.01 unit SQ-PUMP CONTINUOUS MDD 60 UNITS 05/28/18 [History] Vitamin B Complex 1 cap PO DAILY 05/28/18 [History] Isosorbide Mononitrate ER [Imdur] 60 mg PO BID 07/05/18 [History] calcitrioL [Calcitriol] 0.25 mcg PO DAILY 07/05/18 [History] Pramipexole [Mirapex] 0.5 mg PO HS 05/02/19 [History] Ranolazine [Ranexa] 500 mg PO BID 05/02/19 [History] Propranolol [Inderal] 20 mg PO DAILY 07/28/20 [History] Dulaglutide [Trulicity] 1.5 mg SQ VALLECILLO 05/23/21 [History] Albuterol Inhaler [Ventolin Hfa Inhaler] 2 puff INHALATION RT-Q4H PRN 08/10/21 [History] Fluticasone Propion/Salmeterol [Wixela 100-50 Inhub] 1 puff INHALATION RT-BID PRN 08/10/21 [History] Furosemide [Lasix] 40 mg PO DAILY 30 Days #30 tablet 10/20/21 [Rx] Aspirin EC [Ecotrin Low Dose] 81 mg PO HS 02/21/22 [History] Cholecalciferol [Vitamin D3 (25 Mcg = 1000 Iu)] 25 mcg PO DAILY 02/21/22 [History] Glucagon Emergency Kit 1 mg IM ONCE PRN 02/21/22 [History] Escitalopram [Lexapro] 10 mg PO DAILY 01/01/23 [History] hydrALAZINE HCL [Apresoline] 25 mg PO BID #60 tab 01/03/23 [Rx] amLODIPine [Norvasc] 5 mg PO BID 02/03/23 [History] Levofloxacin [Levaquin] 250 mg PO DAILY 10 Days #1 tablet 02/04/23 [Rx] Neomycin/Bacitracin/Polymyxinb [Neosporin Ointment] 1 applic TOPICAL DAILY #15 gm 02/04/23 [Rx] Follow up Appointment(s)/Referral(s): Marlon Valentino MD [Primary Care Provider] - 1-2 days Ke Carbera MD [STAFF PHYSICIAN] - 1 Week Patient Instructions/Handouts: Ear Infection (GEN) Activity/Diet/Wound Care/Special Instructions: Patient is to rest with head elevated, cover the left ear with Neosporin ointment, call if worsens, Discharge Disposition: HOME SELF-CARE
[2023-02-04 17:22] VITALS: BP 149/98; RESP 16; TEMP 97.8
[2023-02-04] MEDS ORDERED: NON FORMULARY DRUG (Rosuvastatin Calcium [Crestor] 40 MG Tablet) PO SCH (21:00)
[2023-02-04] MEDS ORDERED: PRAMIPEXOLE 0.5 MG TAB PO SCH (21:00)
[2023-02-04] MEDS ORDERED: ASPIRIN 81 MG PO SCH (21:00)
[2023-02-05] MEDS ORDERED: LEVOFLOXACIN 250 MG TAB PO SCH (09:00)
== END 2023-02-04 17:22 | disposition home or self-care (01) ==
LOC: EC 16:20 → INTOOBSV 02-04 03:04 → 4SSUR 02-04 03:04 → 5NMEDONC 02-04 04:24 → UNDODISIN 02-04 17:22
PROVIDERS: ADMIT Internal Medicine; ATTEND Internal Medicine
DX: H60.92 Unspecified otitis externa, left ear (principal); H66.92 Otitis media, unspecified, left ear; E11.65 Type 2 diabetes mellitus with hyperglycemia; H61.032 Chondritis of left external ear; I13.0 Hypertensive heart and chronic kidney disease with heart failure and stage 1 through stage 4 chronic kidney disease, or unspecified chronic kidney disease; E78.5 Hyperlipidemia, unspecified; I25.10 Atherosclerotic heart disease of native coronary artery without angina pectoris; I25.2 Old myocardial infarction; I50.22 Chronic systolic (congestive) heart failure; G47.33 Obstructive sleep apnea (adult) (pediatric); F41.9 Anxiety disorder, unspecified; J44.9 Chronic obstructive pulmonary disease, unspecified; I44.0 Atrioventricular block, first degree; E11.22 Type 2 diabetes mellitus with diabetic chronic kidney disease; I45.10 Unspecified right bundle-branch block; N18.9 Chronic kidney disease, unspecified; E66.9 Obesity, unspecified; Z79.4 Long term (current) use of insulin; Z79.899 Other long term (current) drug therapy; Z96.41 Presence of insulin pump (external) (internal); Z79.82 Long term (current) use of aspirin; Z88.8 Allergy status to other drugs, medicaments and biological substances; Z90.49 Acquired absence of other specified parts of digestive tract; Z95.5 Presence of coronary angioplasty implant and graft; Z87.891 Personal history of nicotine dependence; Z80.52 Family history of malignant neoplasm of bladder; Z80.0 Family history of malignant neoplasm of digestive organs; Z83.3 Family history of diabetes mellitus; Z68.35 Body mass index [BMI] 35.0-35.9, adult
CPT/HCPCS: 96361; 96365; 96366; 96375; 99285; 36415; 93005; 80053; 83735; 84100; 84484; 85025; 85610; 85730; 70480; G0378; J1100; J1956; J1885

== ENCOUNTER 2023-03-09 17:25 | Inpatient (IN) | payer MEDICARE ==
[2023-03-09] MEDS ORDERED: NITROGLYCERIN OINT 1 INCH/GM PACKET TOPICAL STA (18:27)
[2023-03-09] MEDS ORDERED: ASPIRIN 81 MG PO STA (18:27)
--- NOTE | 2023-03-09 18:35 | ED ---
General Adult HPI - General Chief complaint: Chest Pain Stated complaint: Chest Pain Time Seen by Provider: 03/09/23 17:30 Source: patient, EMS, RN notes reviewed, old records reviewed Mode of arrival: EMS Limitations: no limitations - History of Present Illness Initial comments: This is a 72-year-old male with a past medical history significant for an [place] diabetes hypertension and high cholesterol. Patient presents emergency Department stating he had chest pain today. Patient states it started about 2:30 this afternoon. Patient states she was outside doing some very light work he became extremely short of breath eventually came inside sat down he had chest pain which radiated to his left shoulder. Patient states this persisted for quite a while he took 2 nitroglycerin after the second one he did get some relief. Patient states currently he only feels very slight chest discomfort. Patient denies any recent fever chills or cough. Patient denies any abdominal pain patient denies nausea vomiting diarrhea. Patient denies any diaphoresis. - Related Data Home Medications Medication Instructions Recorded Confirmed Cetirizine HCl 10 mg PO DAILY 03/03/14 03/09/23 Nitroglycerin Sl Tabs [Nitrostat] 0.4 mg SL Q5M PRN 03/03/14 03/09/23 Rosuvastatin Calcium [Crestor] 40 mg PO HS 03/03/14 03/09/23 Ezetimibe [Zetia] 10 mg PO DAILY 05/19/16 03/09/23 Ferrous Sulfate [Iron (65 MG 325 mg PO DAILY 05/19/16 03/09/23 Elemental)] Ergocalciferol (Vitamin D2) 50,000 unit PO Q14D 05/28/18 03/09/23 [Vitamin D2] Febuxostat [Uloric] 40 mg PO DAILY 05/28/18 03/09/23 Insulin Aspart (For Pump) [NovoLOG 0.01 unit SQ-PUMP CONTINUOUS MDD 05/28/18 03/09/23 (For Pump)] 60 UNITS Vitamin B Complex 1 cap PO DAILY 05/28/18 03/09/23 Isosorbide Mononitrate ER [Imdur] 60 mg PO BID 07/05/18 03/09/23 calcitrioL [Calcitriol] 0.25 mcg PO DAILY 07/05/18 03/09/23 Pramipexole [Mirapex] 0.5 mg PO HS 05/02/19 03/09/23 Ranolazine [Ranexa] 500 mg PO BID 05/02/19 03/09/23 Propranolol [Inderal] 20 mg PO DAILY 07/28/20 03/09/23 Dulaglutide [Trulicity] 1.5 mg SQ VALLECILLO 05/23/21 03/09/23 Albuterol Inhaler [Ventolin Hfa 2 puff INHALATION RT-Q4H PRN 08/10/21 03/09/23 Inhaler] Fluticasone Propion/Salmeterol 1 puff INHALATION RT-BID PRN 08/10/21 03/09/23 [Wixela 100-50 Inhub] Aspirin EC [Ecotrin Low Dose] 81 mg PO HS 02/21/22 03/09/23 Cholecalciferol [Vitamin D3 (25 25 mcg PO DAILY 02/21/22 03/09/23 Mcg = 1000 Iu)] Glucagon Emergency Kit 1 mg IM ONCE PRN 02/21/22 03/09/23 Escitalopram [Lexapro] 10 mg PO DAILY 01/01/23 03/09/23 amLODIPine [Norvasc] 5 mg PO BID 02/03/23 03/09/23 Previous Rx's Medication Instructions Recorded Furosemide [Lasix] 40 mg PO DAILY 30 Days #30 tablet 10/20/21 hydrALAZINE HCL [Apresoline] 25 mg PO BID #60 tab 01/03/23 Allergies Allergy/AdvReac Type Severity Reaction Status Date / Time atorvastatin [From Lipitor] AdvReac Unknown Verified 03/09/23 17:39 baclofen AdvReac Unknown Verified 03/09/23 17:39 Review of Systems ROS Statement: Those systems with pertinent positive or pertinent negative responses have been documented in the HPI. ROS Other: All systems not noted in ROS Statement are negative. Past Medical History Past Medical History: Coronary Artery Disease (CAD), Chest Pain / Angina, Heart Failure, Diabetes Mellitus, Hyperlipidemia, Hypertension, Myocardial Infarction ([place]), Renal Disease, Sleep Apnea/CPAP/BIPAP Additional Past Medical History / Comment(s): 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, coronary artery disease, diabetes mellitus, hypertension, chronic renal failure, hyperlipidemia, JEN, pt has insulin pump Last Myocardial Infarction Date:: 03/04/14 History of Any Multi-Drug Resistant Organisms: None Reported Past Surgical History: Cholecystectomy, Heart Catheterization, Heart Catheterization With Stent, Orthopedic Surgery Additional Past Surgical History / Comment(s): shoulder, hemmroid, cardiac stent in june 2014, eye surgery, 3-4 cardiac stents Past Anesthesia/Blood Transfusion Reactions: No Reported Reaction Additional Past Anesthesia/Blood Transfusion Reaction / Comment(s): Never had a blood transfusion Date of Last Stent Placement:: 05/2014 Past Psychological History: Anxiety Smoking Status: Former smoker Past Alcohol Use History: None Reported Past Drug Use History: None Reported - Past Family History Father Family Medical History: Cancer Additional Family Medical History / Comment(s): bladder cancer Mother Family Medical History: Diabetes Mellitus Additional Family Medical History / Comment(s): Pancreatic [place] General Exam - General Exam Comments Initial Comments: GENERAL: Patient is well-developed and well-nourished. Patient is nontoxic and well- hydrated and is in mild distress. ENT: Neck is soft and supple. No significant lymphadenopathy is noted. Oropharynx is clear. Moist mucous membranes. Neck has full range of motion without eliciting any pain. EYES: The sclera were anicteric and conjunctiva were pink and moist. Extraocular movements were intact and pupils were equal round and reactive to light. Eyelids were unremarkable. PULMONARY: Unlabored respirations. Good breath sounds bilaterally. No audible rales rhonchi or wheezing was noted. CARDIOVASCULAR: There is a regular rate and rhythm without any murmurs gallops or rubs. ABDOMEN: Soft and nontender with normal bowel sounds. SKIN: Skin is clear with no lesions or rashes and otherwise unremarkable. NEUROLOGIC: Patient is alert and oriented x3. Cranial nerves II through XII are grossly intact. Motor and sensory are also intact. Normal speech, volume and content. Symmetrical smile. MUSCULOSKELETAL: Normal extremities with adequate strength and full range of motion. No lower extremity swelling or edema. No calf tenderness. LYMPHATICS: No significant lymphadenopathy is noted PSYCHIATRIC: Normal psychiatric evaluation. Limitations: no limitations Course Vital Signs 03/09/23 03/09/23 17:26 18:39 Temperature 98.3 F Pulse Rate 68 64 Respiratory 20 18 Rate Blood Pressure 180/80 186/85 O2 Sat by Pulse 97 99 Oximetry Medical Decision Making - Medical Decision Making EKG was interpreted by myself. EKG shows a sinus rhythm with an occasional PVC at 65 bpm NE interval 262 QRS is 162 QT interval is 453 QTC is 465. Patient's EKG shows no ST segment elevation or depression. Was pt. sent in by a medical professional or institution (, [facility], [employer]PERVISOR, urgent care, hospital, or prison...) When possible be specific @ -[No] Did you speak to anyone other than the patient for history (EMS, parent, family, police, friend...)? What history was obtained from this source @ -[No] Did you review nursing and triage notes (agree or disagree)? Why? @ -[I reviewed and agree with nursing and triage notes] Were old charts reviewed (outside hosp., previous admission, EMS record, old EKG, old radiological studies, urgent care reports/EKG's, prison records)? Report findings @ -I reviewed prior charts her prior lab work on this patient. Differential Diagnosis (chest pain, altered mental status, abdominal pain women, abdominal pain men, vaginal bleeding, weakness, fever, dyspnea, syncope, headache, dizziness, GI bleed, back pain, seizure, CVA, palpatations, mental health, musculoskeletal)? @ -Differential Chest Pain: Stable Angina, Unstable Angina, STEMI, NSTEMI Aortic Dissection, Pneumothorax, Musculoskeletal, Esophageal Spasm GERD, Cholecystitis, Pancreatitis, Zoster, this is not meant to be an all-inclusive list. EKG interpreted by me (3pts min.). @ -[As above] X-rays interpreted by me (1pt min.). @ -Chest x-ray shows no acute abnormality CT interpreted by me (1pt min.). @ -[None done] U/S interpreted by me (1pt. min.). @ -[None done] What testing was considered but not performed or refused? (CT, X-rays, U/S, labs)? Why? @ -[None] What meds were considered but not given or refused? Why? @ -[None] Did you discuss the management of the patient with other professionals (professionals i.e. [facility], [employer]PERVISOR, lab, RT, psych nurse, hospital social worker, track repair supervisor, teacher, state wildlife officer, case finisher)? Give summary @ -I spoke with sound physician's Was smoking cessation discussed for >3mins.? @ -[No] Was critical care preformed (if so, how long)? @ -[No] Were there social determinants of health that impacted care today? How? (Homelessness, low income, unemployed, alcoholism, drug addiction, transportation, low edu. Level, literacy, decrease access to med. care, senior care, rehab)? @ -[No] Was there de-escalation of care discussed even if they declined (Discuss DNR or withdrawal of care, Hospice)? DNR status @ -[No] What co-morbidities impacted this encounter? (DM, HTN, Smoking, COPD, CAD, Cancer, CVA, ARF, Chemo, Hep., AIDS, mental health diagnosis, sleep apnea, morbid obesity)? @ -[None] Was patient admitted / discharged? Hospital course, mention meds given and route, prescriptions, significant lab abnormalities, going to OR and other pertinent info. @ -Patient did not have any chest pain when I went back in to give him all of his results. Patient was feeling at his baseline. Patient had negative troponins and normal chest x-ray. But because of the patient's history and felt the patient needed to stay. I spoke with sound physician's and they agreed to admit the patient and the patient wrote admitting orders patient will have ca rdiology consult patient with aspirin and Nitropaste on the floor Undiagnosed new problem with uncertain prognosis? @ -[No] Drug Therapy requiring intensive monitoring for toxicity (Heparin, Nitro, Insulin, Cardizem)? @ -[No] Were any procedures done? @ -[No] Diagnosis/symptom? @ -Chest pain Acute, or Chronic, or Acute on Chronic? @ -Acute Uncomplicated (without systemic symptoms) or Complicated (systemic symptoms)? @ -Complicated Side effects of treatment? @ -[No] Exacerbation, Progression, or Severe Exacerbation? @ -[No] Poses a threat to life or bodily function? How? (Chest pain, [place], [place], pneumonia, PE, COPD, DKA, ARF, appy, cholecystitis, CVA, Diverticulitis, Homicidal, Suicidal, threat to staff... and all critical care pts) @ -Yes this could lead to hypoxia and possibly - Lab Data Result diagrams: 03/09/23 18:30 03/09/23 18:30 Lab Results 03/09/23 03/09/23 03/09/23 Range/Units 18:30 18:30 18:30 WBC 4.6 (3.8-10.6) k/uL RBC 3.49 L (4.30-5.90) m/uL Hgb 10.8 L (13.0-17.5) gm/dL Hct 31.2 L (39.0-53.0) % MCV 89.4 (80.0-100.0) fL MCH 30.9 (25.0-35.0) pg MCHC 34.6 (31.0-37.0) g/dL RDW 13.2 (11.5-15.5) % Plt Count 159 (150-450) k/uL MPV 8.3 Neutrophils % 54 % Lymphocytes % 33 % Monocytes % 9 % Eosinophils % 2 % Basophils % 0 % Neutrophils # 2.5 (1.3-7.7) k/uL Lymphocytes # 1.5 (1.0-4.8) k/uL Monocytes # 0.4 (0-1.0) k/uL Eosinophils # 0.1 (0-0.7) k/uL Basophils # 0.0 (0-0.2) k/uL PT 10.2 (9.0-12.0) sec INR 1.0 (<1.2) APTT 25.7 (22.0-30.0) sec Sodium 134 L (137-145) mmol/L Potassium 4.7 (3.5-5.1) mmol/L Chloride 103 (98-107) mmol/L Carbon Dioxide 22 (22-30) mmol/L Anion Gap 9 mmol/L BUN 53 H (9-20) mg/dL Creatinine 3.01 H (0.66-1.25) mg/dL Est GFR (CKD-EPI)AfAm 23 (>60 ml/min/1.73 sqM) Est GFR (CKD-EPI)NonAf 20 (>60 ml/min/1.73 sqM) Glucose 293 H (74-99) mg/dL Calcium 8.1 L (8.4-10.2) mg/dL Magnesium 2.1 (1.6-2.3) mg/dL Total Bilirubin 0.5 (0.2-1.3) mg/dL AST 28 (17-59) U/L ALT 16 (4-49) U/L Alkaline Phosphatase 83 (38-126) U/L Troponin I (0.000-0.034) ng/mL Total Protein 6.8 (6.3-8.2) g/dL Albumin 3.3 L (3.5-5.0) g/dL 03/09/23 Range/Units 18:30 WBC (3.8-10.6) k/uL RBC (4.30-5.90) m/uL Hgb (13.0-17.5) gm/dL Hct (39.0-53.0) % MCV (80.0-100.0) fL MCH (25.0-35.0) pg MCHC (31.0-37.0) g/dL RDW (11.5-15.5) % Plt Count (150-450) k/uL MPV Neutrophils % % Lymphocytes % % Monocytes % % Eosinophils % % Basophils % % Neutrophils # (1.3-7.7) k/uL Lymphocytes # (1.0-4.8) k/uL Monocytes # (0-1.0) k/uL Eosinophils # (0-0.7) k/uL Basophils # (0-0.2) k/uL PT (9.0-12.0) sec INR (<1.2) APTT (22.0-30.0) sec Sodium (137-145) mmol/L Potassium (3.5-5.1) mmol/L Chloride (98-107) mmol/L Carbon Dioxide (22-30) mmol/L Anion Gap mmol/L BUN (9-20) mg/dL Creatinine (0.66-1.25) mg/dL Est GFR (CKD-EPI)AfAm (>60 ml/min/1.73 sqM) Est GFR (CKD-EPI)NonAf (>60 ml/min/1.73 sqM) Glucose (74-99) mg/dL Calcium (8.4-10.2) mg/dL Magnesium (1.6-2.3) mg/dL Total Bilirubin (0.2-1.3) mg/dL AST (17-59) U/L ALT (4-49) U/L Alkaline Phosphatase (38-126) U/L Troponin I <0.012 (0.000-0.034) ng/mL Total Protein (6.3-8.2) g/dL Albumin (3.5-5.0) g/dL Disposition Clinical Impression: Chest pain Disposition: ADMITTED IP TO THIS HOSP Referrals: Marlon Valentino MD [Primary Care Provider] - 1-2 days Time of Disposition: 20:01
[2023-03-09 18:43] LABS: Basophils % (A) 0 %; Eosinophils # (A) 0.1 k/uL (0-0.7); Eosinophils % (A) 2 %; HCT 31.2 % (39.0-53.0); HGB 10.8 gm/dL (13.0-17.5); Lymphocytes # (A) 1.5 k/uL (1.0-4.8); Lymphocytes % (A) 33 %; MCH 30.9 pg (25.0-35.0); MCHC 34.6 g/dL (31.0-37.0); MCV 89.4 fL (80.0-100.0); Mean Platelet Volume 8.3; Monocytes # (A) 0.4 k/uL (0-1.0); Monocytes % (A) 9 %; Neutrophils # (A) 2.5 k/uL (1.3-7.7); Neutrophils % (A) 54 %; Platelet Count 159 k/uL (150-450); RBC 3.49 m/uL (4.30-5.90); RDW 13.2 % (11.5-15.5); WBC 4.6 k/uL (3.8-10.6)
--- NOTE | 2023-03-09 18:44 | XR ---
EXAMINATION TYPE: XR chest 2V DATE OF EXAM: 03/09/2023 COMPARISON: 01/01/2023 HISTORY: 72-year-old male with chest pain TECHNIQUE: PA and lateral views FINDINGS: Heart normal size. Aorta and pulmonary vasculature within normal limits. Bilateral hilar prominence c ould reflect enlargement of the main right and left pulmonary arteries. This mid thoracic spine. No c onsolidation or pleural effusion. IMPRESSION: Bilateral hilar prominence could reflect enlargement of the main right and left pulmonary arteries in dicating pulmonary arterial hypertension. Further clinical correlation recommended. DISH mid thoracic spine.
[2023-03-09 18:51] LABS: ALT 16 U/L (4-49); AST 28 U/L (17-59); African American GFR (CKD) 23 (>60 ml/min/1.73 sqM); Albumin 3.3 g/dL (3.5-5.0); Alkaline Phosphatase 83 U/L (38-126); Anion Gap 9 mmol/L; Blood Urea Nitrogen 53 mg/dL (9-20); Calcium 8.1 mg/dL (8.4-10.2); Carbon Dioxide 22 mmol/L (22-30); Chloride 103 mmol/L (98-107); Glucose 293 mg/dL (74-99); Magnesium 2.1 mg/dL (1.6-2.3); Non-African American GFR(CKD) 20 (>60 ml/min/1.73 sqM); Potassium 4.7 mmol/L (3.5-5.1); Sodium 134 mmol/L (137-145); Total Bilirubin 0.5 mg/dL (0.2-1.3); Total Protein 6.8 g/dL (6.3-8.2)
[2023-03-09 18:55] LABS: Partial Thromboplastin Time 25.7 sec (22.0-30.0); Prothrombin Time 10.2 sec (9.0-12.0)
[2023-03-10] MEDS ORDERED: NITROGLYCERIN OINT 1 INCH/GM PACKET TOPICAL SCH
[2023-03-10] MEDS ORDERED: DEXTROSE 50% SYRINGE 50 ML IVP PRN ×2 (01:36)
--- NOTE | 2023-03-10 01:40 | P.HPIM ---
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 then he slept for some time, then went back to work, and immediately started having central chest pain he describes it like a belt being tight around his chest 10/10 heavy breathing no sweating, dizziness, nausea or vomiting. he denies any fever, chills, cough, changes in bowel or urinary habits, denies any abd pain . denies any history of blood clots or travel. he was recently seen here in December , for ear infection. he denies any smoking , illicit drugs or alcohol review of systems Pertinent positives as noted in HPI. All other systems were reviewed and are negative on exam Constitutional: No acute distress, conversant, pleasant Eyes: Anicteric sclerae, moist conjunctiva, Pupils equal round reactive to light ENMT: NC/AT Oropharynx clear, no erythema, or exudates Neck: Supple, no masses, or JVD No carotid bruits No thyromegaly Lungs: Clear to auscultation Clear to percussion Normal respiratory effort, no accessory muscle use Cardiovascular: Heart regular in rate and rhythm, No murmurs, gallops, or rubs No peripheral edema Abdominal: Soft Nontender, no guarding, rebound or rigidity Abdomen moving with respiration Normoactive bowel sounds No hepatomegaly, No splenomegaly No palpable mass No abdominal wall hernia noted Skin: Normal temperature, tone, texture, turgor No induration No subcutaneous nodules No rash, lesions No ulcers Extremities: No digital cyanosis No clubbing Pedal pulses intact and symmetrical Radial pulses intact and symmetrical No calf tenderness Psychiatric: Alert and oriented to person, place and time Appropriate affect fair judgement Neuro Muscles Strength 5/5 in all 4 extremities Sensation to light touch grossly present throughout Cranial nerves II-XII grossly intact Lymphatics: no palpable cervical or supraclavicular lymph nodes Past Medical History Past Medical History: Coronary Artery Disease (CAD), Chest Pain / Angina, Heart Failure, Diabetes Mellitus, Hyperlipidemia, Hypertension, Myocardial Infarction ([place]), Renal Disease, Sleep Apnea/CPAP/BIPAP Additional Past Medical History / Comment(s): 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, coronary artery disease, diabetes mellitus, hypertension, chronic renal failure, hyperlipidemia, JEN, pt has insulin pump Last Myocardial Infarction Date:: 03/04/14 History of Any Multi-Drug Resistant Organisms: None Reported Past Surgical History: Cholecystectomy, Heart Catheterization, Heart Catheterization With Stent, Orthopedic Surgery Additional Past Surgical History / Comment(s): shoulder, hemmroid, cardiac stent in june 2014, eye surgery, 3-4 cardiac stents Past Anesthesia/Blood Transfusion Reactions: No Reported Reaction Additional Past Anesthesia/Blood Transfusion Reaction / Comment(s): Never had a blood transfusion Date of Last Stent Placement:: 05/2014 Past Psychological History: Anxiety Smoking Status: Former smoker Past Alcohol Use History: None Reported Past Drug Use History: None Reported - Past Family History Father Family Medical History: Cancer Additional Family Medical History / Comment(s): bladder cancer Mother Family Medical History: Diabetes Mellitus Additional Family Medical History / Comment(s): Pancreatic [place] Medications and Allergies Home Medications Medication Instructions Recorded Confirmed Type Cetirizine HCl 10 mg PO DAILY 03/03/14 03/09/23 History Nitroglycerin Sl Tabs [Nitrostat] 0.4 mg SL Q5M PRN 03/03/14 03/09/23 History Rosuvastatin Calcium [Crestor] 40 mg PO HS 03/03/14 03/09/23 History Ezetimibe [Zetia] 10 mg PO DAILY 05/19/16 03/09/23 History Ferrous Sulfate [Iron (65 MG 325 mg PO DAILY 05/19/16 03/09/23 History Elemental)] Ergocalciferol (Vitamin D2) 50,000 unit PO Q14D 05/28/18 03/09/23 History [Vitamin D2] Febuxostat [Uloric] 40 mg PO DAILY 05/28/18 03/09/23 History Insulin Aspart (For Pump) [NovoLOG 0.01 unit SQ-PUMP CONTINUOUS MDD 05/28/18 03/09/23 History (For Pump)] 60 UNITS Vitamin B Complex 1 cap PO DAILY 05/28/18 03/09/23 History Isosorbide Mononitrate ER [Imdur] 60 mg PO BID 07/05/18 03/09/23 History calcitrioL [Calcitriol] 0.25 mcg PO DAILY 07/05/18 03/09/23 History Pramipexole [Mirapex] 0.5 mg PO HS 05/02/19 03/09/23 History Ranolazine [Ranexa] 500 mg PO BID 05/02/19 03/09/23 History Propranolol [Inderal] 20 mg PO DAILY 07/28/20 03/09/23 History Dulaglutide [Trulicity] 1.5 mg SQ VALLECILLO 05/23/21 03/09/23 History Albuterol Inhaler [Ventolin Hfa 2 puff INHALATION RT-Q4H PRN 08/10/21 03/09/23 History Inhaler] Fluticasone Propion/Salmeterol 1 puff INHALATION RT-BID PRN 08/10/21 03/09/23 History [Wixela 100-50 Inhub] Furosemide [Lasix] 40 mg PO DAILY 30 Days #30 tablet 10/20/21 03/09/23 Rx Aspirin EC [Ecotrin Low Dose] 81 mg PO HS 02/21/22 03/09/23 History Cholecalciferol [Vitamin D3 (25 25 mcg PO DAILY 02/21/22 03/09/23 History Mcg = 1000 Iu)] Glucagon Emergency Kit 1 mg IM ONCE PRN 02/21/22 03/09/23 History Escitalopram [Lexapro] 10 mg PO DAILY 01/01/23 03/09/23 History hydrALAZINE HCL [Apresoline] 25 mg PO BID #60 tab 01/03/23 03/09/23 Rx amLODIPine [Norvasc] 5 mg PO BID 02/03/23 03/09/23 History Allergies Allergy/AdvReac Type Severity Reaction Status Date / Time atorvastatin [From Lipitor] AdvReac Unknown Verified 03/09/23 17:39 baclofen AdvReac Unknown Verified 03/09/23 17:39 Physical Exam Vitals: Vital Signs Temp Pulse Resp BP BP Pulse Ox 03/10/23 00:00 97.8 F 20 160/70 94 L 03/09/23 22:11 97.5 F L 62 18 164/77 98 03/09/23 21:04 62 20 162/83 97 03/09/23 18:39 64 18 186/85 99 03/09/23 17:26 98.3 F 68 20 180/80 97 Intake and Output 03/09/23 03/09/23 03/10/23 14:59 22:59 06:59 Other: Weight 104.326 kg Results CBC & Chem 7: 03/09/23 18:30 03/09/23 18:30 Labs: Abnormal Lab Results - Last 24 Hours (Table) 03/09/23 03/09/23 Range/Units 18:30 18:30 RBC 3.49 L (4.30-5.90) m/uL Hgb 10.8 L (13.0-17.5) gm/dL Hct 31.2 L (39.0-53.0) % Sodium 134 L (137-145) mmol/L BUN 53 H (9-20) mg/dL Creatinine 3.01 H (0.66-1.25) mg/dL Glucose 293 H (74-99) mg/dL Calcium 8.1 L (8.4-10.2) mg/dL Albumin 3.3 L (3.5-5.0) g/dL Assessment and Plan Assessment: 72 year old male with DM , HTN, CAD, coming in for chest pain , I discussed the case with ED doc , and I accepted the admission for chest pain to rule out ACS with anticipated length of stay < 2 midnights chest pain with typical features, rule out ACS he is known to have 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
[2023-03-10] MEDS: amLODIPine 5 MG TAB PO SCH ×3 (04:04→19:55)
[2023-03-10] MEDS: hydrALAZINE HCL 25 MG TAB PO SCH ×3 (04:05→19:55)
[2023-03-10] MEDS: RANOLAZINE 500 MG TAB.ER.12H PO SCH ×3 (04:06→19:55)
[2023-03-10 05:54] LABS: Glucose,Whole Blood 239 mg/dL (70-110)
[2023-03-10] MEDS: INSULIN ASPART (NovoLOG) 100 UNIT/ML VIAL SQ SCH ×4 (07:00→19:55)
[2023-03-10] MEDS: ISOSORBIDE MONONITRATE ER 60 MG TAB.ER.24H PO SCH ×2 (07:00→19:55)
[2023-03-10] MEDS ORDERED: HEPARIN SODIUM,PORCINE 5,000 UNIT/ML 1 ML VIAL SQ SCH (08:00)
[2023-03-10] MEDS ORDERED: ASPIRIN 325 MG TAB PO SCH (09:00)
[2023-03-10] MEDS: SYMBICORT 80-4.5 MCG INHALER INHALATION SCH ×2 (09:24→20:40)
[2023-03-10] MEDS: PROPRANOLOL 20 MG TAB PO SCH (09:42)
[2023-03-10] MEDS: ESCITALOPRAM 10 MG TAB PO SCH (09:42)
[2023-03-10] MEDS: EZETIMIBE 10 MG TAB PO SCH (09:42)
[2023-03-10] MEDS: LORATADINE 10 MG TAB PO SCH (09:42)
[2023-03-10] MEDS ORDERED: HEPARIN SODIUM 1,000 UN/ML (10ML VL) IV PRN (09:56)
[2023-03-10] MEDS ORDERED: HEPARIN SODIUM 1,000 UN/ML (10ML VL) IV ONE (10:00)
[2023-03-10] MEDS: SODIUM CHLORIDE 0.9% 1,000 ML IV SCH ×2 (10:16→19:54)
[2023-03-10 10:33] LABS: Chol/HDL Ratio 2.65 Ratio; LDL Cholesterol,Calculated 33.1 mg/dL (0.0-131.0)
--- NOTE | 2023-03-10 10:54 | P.PN ---
Subjective Progress Note Date: 03/10/23 No new complaints. Pain has improved in the chest. Trops have been stable. Gen: awake, alert HEENT: normocephalic, atraumatic, good hearing acuity, moist mucous membranes Resp: good air exchange, breathing comfortably with no accessory muscle use CVS: good distal perfusion x 4, GI: soft, NTTP, ND : no SPT, no CVAT, bailey catheter not present MSK: no pitting edema, no clubbing Neuro: non-focal, moving all extremities Psych: cooperative, euthymic mood Hospital course: 72-year-old man with medical history of diabetes, hypertension, chronic kidney disease stage IV, CAD status post PCI 4, last in 2013, presented for chest pain. In the emergency room, patient was afebrile, 180/80, heart rate 68, 97% on room air. CBC demonstrates anemia to 10.8, otherwise unremarkable. Basic metabolic panel shows sodium of 134, BMI 53, creatinine 3.01, kidney function baseline. Liver function tests show low total albumin of 3.3. A1c is 7.5, glucose was 293. Coags are unremarkable. Troponin was less than 0.012 initially, then trended to 0.013. EKG shows sinus rhythm with first-degree AV block, left axis deviation, left anterior fascicular block with right bundle branch block, no signs of ischemia. Chest x-ray shows normal-sized heart, no infiltrates or opacities concerning for acute pulmonary process. Case was discussed with emergency room N decision was made to admit the patient hospital for further evaluation of chest pain. Assessment: Chest pain Hypertensive urgency History of CAD Chronic kidney disease stage IV Diabetes type 2 Hyperlipidemia Plan: Today, patient is afebrile, 160/70, heart rate 64, 95% on room air. Continue aspirin 81 mg daily, Imdur 60 mg twice a day, Crestor 40 mg at bedtime, propanolol 20 mg daily Continue heparin drip, monitor PTT for toxicity Continue zetia Nitroglycerin 0.4 mg sublingual every 5 minutes when necessary for chest pain Pending cardiology consultation Pending echocardiogram Patient is full code Objective - Vital Signs Vital signs: Vital Signs Temp 97.8 F 03/10/23 00:00 Pulse 64 03/10/23 02:49 Resp 18 03/10/23 02:49 BP 167/74 03/10/23 04:00 Pulse Ox 95 08/10/23 09:26 FiO2 Intake & Output 03/09/23 03/10/23 03/10/23 18:59 06:59 18:59 Weight 104.326 kg 104.4 kg Other: # Voids 2 - Labs CBC & Chem 7: 03/09/23 18:30 03/09/23 18:30 Labs: Abnormal Lab Results - Last 24 Hours (Table) 03/09/23 03/09/23 03/09/23 Range/Units 18:30 18:30 18:30 RBC 3.49 L (4.30-5.90) m/uL Hgb 10.8 L (13.0-17.5) gm/dL Hct 31.2 L (39.0-53.0) % Sodium 134 L (137-145) mmol/L BUN 53 H (9-20) mg/dL Creatinine 3.01 H (0.66-1.25) mg/dL Glucose 293 H (74-99) mg/dL POC Glucose (mg/dL) (70-110) mg/dL Hemoglobin A1c (<=6.0) % Calcium 8.1 L (8.4-10.2) mg/dL Albumin 3.3 L (3.5-5.0) g/dL HDL Cholesterol 35.50 L (40.00-60.00) mg/dL 03/09/23 03/10/23 Range/Units 18:30 05:53 RBC (4.30-5.90) m/uL Hgb (13.0-17.5) gm/dL Hct (39.0-53.0) % Sodium (137-145) mmol/L BUN (9-20) mg/dL Creatinine (0.66-1.25) mg/dL Glucose (74-99) mg/dL POC Glucose (mg/dL) 239 H (70-110) mg/dL Hemoglobin A1c 7.5 H (<=6.0) % Calcium (8.4-10.2) mg/dL Albumin (3.5-5.0) g/dL HDL Cholesterol (40.00-60.00) mg/dL
[2023-03-10 11:10] LABS: Basophils % (A) 0 %; Eosinophils # (A) 0.1 k/uL (0-0.7); Eosinophils % (A) 2 %; HCT 38.3 % (39.0-53.0); HGB 12.8 gm/dL (13.0-17.5); Lymphocytes # (A) 1.3 k/uL (1.0-4.8); Lymphocytes % (A) 24 %; MCH 30.1 pg (25.0-35.0); MCHC 33.3 g/dL (31.0-37.0); MCV 90.2 fL (80.0-100.0); Monocytes # (A) 0.6 k/uL (0-1.0); Monocytes % (A) 10 %; Neutrophils # (A) 3.4 k/uL (1.3-7.7); Neutrophils % (A) 62 %; Platelet Count 191 k/uL (150-450); RBC 4.25 m/uL (4.30-5.90); RDW 13.5 % (11.5-15.5); WBC 5.5 k/uL (3.8-10.6)
[2023-03-10] MEDS ORDERED: NITROGLYCERIN SL TABS 0.4 MG TAB SUBLINGUAL PRN (11:51)
--- NOTE | 2023-03-10 12:00 | P.CRDCN ---
History of Present Illness History of present illness: HISTORY OF PRESENT ILLNESS: This is a 72-year-old male with a past medical history significant for hypertension, hyperlipidemia, coronary artery disease with prior PROPOSAL MANAGER WRITER of circumflex with collaterals, chronic kidney disease, mild nonischemic cardiomyopathy, diabetes, neuropathy, and obstructive sleep apnea. Patient follows in the office with Dr. Castle. We have been asked to see the patient in consultation for chest pain. Patient examined at the bedside. Patient states yesterday he was outside doing some yardwork work when he began to have chest pain. He also reports having shortness of breath. He went inside and took a nitro which did not help his pain so he took a second nitro which eased up his pain but he continued to report some soreness in his chest. He states he took a nap on the couch and when he woke up he went outside to cut some wood pallets. He came back inside and told his that felt like somebody had a belt around his chest and was tightening it. His gave him an additional nitro and called EMS. The patient currently denies any chest pain or pressure. He denies shortness of breath. Vital signs are stable. * EKG reveals sinus mechanism. Right bundle branch block. No signs of acute ischemia. * Chest xray bilateral hilar prominence could reflect enlargement of the main right and left pulmonary arteries indicating pulmonary arterial hypertension. * Laboratory data: WBC 5.5. Hemoglobin 12.8. Platelet count 191. Sodium 134. Potassium 4.7. BUN 53. Creatinine 3.01. Troponin negative 3. * Current home cardiac medications include hydralazine 25 mg twice a day, amlodipine 5 mg twice a day, Crestor 40 mg at night, Ranexa 500 mg twice a day, Imdur 60 mg twice a day, Lasix 40 mg daily, Zetia 10 mg daily, aspirin 81 mg daily * Most recent echocardiogram obtained in December 2022 revealed ejection fraction 50-55%, [id number] mitral regurgitation, mild aortic stenosis REVIEW OF SYSTEMS: At the time of my exam: CONSTITUTIONAL: Denies fever or chills. HEENT: Denies blurred vision, vision changes, or eye pain. Denies hemoptysis CARDIOVASCULAR: Denies chest pain. Denies orthopnea. Denies PND. Denies palpitations RESPIRATORY: Denies shortness of breath. GASTROINTESTINAL: Denies abdominal pain. Denies nausea or vomiting. HEMATOLOGIC: Denies bleeding disorders. GENITOURINARY: Denies any blood in urine. SKIN: Denies pruitis. Denies rash. PHYSICAL EXAM: VITAL SIGNS: Reviewed. GENERAL: Well-developed in no acute distress. HEENT: Head is normocephalic. Pupils are equal, round. Sclerae anicteric. Mucous membranes of the mouth are moist. Neck supple. No JVD or thyromegaly LUNGS: Respirations even and unlabored. Lungs essentially clear to auscultation bilaterally. HEART: Regular rate and rhythm. S1 and S2 heard. Systolic murmur noted. ABDOMEN: Soft. Nondistended. Nontender. EXTREMITIES: Normal range of motion. No clubbing or cyanosis. Peripheral pulses intact. No lower extremity edema NEUROLOGIC: Awake and alert. Oriented x 3. ASSESSMENT: Chest pain, troponins negative 3 Coronary artery disease with prior PROPOSAL MANAGER WRITER circumflex with collaterals, chronic kidney disease Mild nonischemic cardiomyopathy Chronic heart failure with preserved ejection fraction, currently euvolemic Hypertension Hyperlipidemia Diabetes Neuropathy Obstructive sleep apnea Chronic fatigue PLAN: An acute coronary has been ruled out Resume home cardiac medications Begin IV fluids at 100 mL an hour Nothing by mouth at midnight Patient to undergo cardiac catheterization tomorrow with Dr. Castle Discussed possibility of worsening kidney function with possibility of hemodialysis post cardiac catheterization with patient and his spouse. They understand the risk and are willing to proceed with cardiac catheterization. Further recommendations pending patient's course Nurse practitioner note has been reviewed by physician. Signing provider agrees with the documented findings, assessment, and plan of care. Past Medical History Past Medical History: Coronary Artery Disease (CAD), Chest Pain / Angina, Heart Failure, Diabetes Mellitus, Hyperlipidemia, Hypertension, Myocardial Infarction (DE), Renal Disease, Sleep Apnea/CPAP/BIPAP Additional Past Medical History / Comment(s): 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, coronary artery disease, diabetes mellitus, hypertension, chronic renal failure, hyperlipidemia, JEN, pt has insulin pump Last Myocardial Infarction Date:: 03/04/14 History of Any Multi-Drug Resistant Organisms: None Reported Past Surgical History: Cholecystectomy, Heart Catheterization, Heart Catheterization With Stent, Orthopedic Surgery Additional Past Surgical History / Comment(s): shoulder, hemmroid, cardiac stent in june 2014, eye surgery, 3-4 cardiac stents Past Anesthesia/Blood Transfusion Reactions: No Reported Reaction Additional Past Anesthesia/Blood Transfusion Reaction / Comment(s): Never had a blood transfusion Date of Last Stent Placement:: 05/2014 Past Psychological History: Anxiety Additional Psychological History / Comment(s): Shopping and crowds bother patient. Smoking Status: Former smoker Past Alcohol Use History: None Reported Additional Past Alcohol Use History / Comment(s): pt. quit smoking in 1980 Past Drug Use History: None Reported - Past Family History Father Family Medical History: Cancer Additional Family Medical History / Comment(s): bladder cancer Mother Family Medical History: Diabetes Mellitus Additional Family Medical History / Comment(s): Pancreatic CA Medications and Allergies Home Medications Medication Instructions Recorded Confirmed Type Cetirizine HCl 10 mg PO DAILY 03/03/14 03/09/23 History Nitroglycerin Sl Tabs [Nitrostat] 0.4 mg SL Q5M PRN 03/03/14 03/09/23 History Rosuvastatin Calcium [Crestor] 40 mg PO HS 03/03/14 03/09/23 History Ezetimibe [Zetia] 10 mg PO DAILY 05/19/16 03/09/23 History Ferrous Sulfate [Iron (65 MG 325 mg PO DAILY 05/19/16 03/09/23 History Elemental)] Ergocalciferol (Vitamin D2) 50,000 unit PO Q14D 05/28/18 03/09/23 History [Vitamin D2] Febuxostat [Uloric] 40 mg PO DAILY 05/28/18 03/09/23 History Insulin Aspart (For Pump) [NovoLOG 0.01 unit SQ-PUMP CONTINUOUS MDD 05/28/18 03/09/23 History (For Pump)] 60 UNITS Vitamin B Complex 1 cap PO DAILY 05/28/18 03/09/23 History Isosorbide Mononitrate ER [Imdur] 60 mg PO BID 07/05/18 03/09/23 History calcitrioL [Calcitriol] 0.25 mcg PO DAILY 07/05/18 03/09/23 History Pramipexole [Mirapex] 0.5 mg PO HS 05/02/19 03/09/23 History Ranolazine [Ranexa] 500 mg PO BID 05/02/19 03/09/23 History Propranolol [Inderal] 20 mg PO DAILY 07/28/20 03/09/23 History Dulaglutide [Trulicity] 1.5 mg SQ VALLECILLO 05/23/21 03/09/23 History Albuterol Inhaler [Ventolin Hfa 2 puff INHALATION RT-Q4H PRN 08/10/21 03/09/23 History Inhaler] Fluticasone Propion/Salmeterol 1 puff INHALATION RT-BID PRN 08/10/21 03/09/23 History [Wixela 100-50 Inhub] Furosemide [Lasix] 40 mg PO DAILY 30 Days #30 tablet 10/20/21 03/09/23 Rx Aspirin EC [Ecotrin Low Dose] 81 mg PO HS 02/21/22 03/09/23 History Cholecalciferol [Vitamin D3 (25 25 mcg PO DAILY 02/21/22 03/09/23 History Mcg = 1000 Iu)] Glucagon Emergency Kit 1 mg IM ONCE PRN 02/21/22 03/09/23 History Escitalopram [Lexapro] 10 mg PO DAILY 01/01/23 03/09/23 History hydrALAZINE HCL [Apresoline] 25 mg PO BID #60 tab 01/03/23 03/09/23 Rx amLODIPine [Norvasc] 5 mg PO BID 02/03/23 03/09/23 History Allergies Allergy/AdvReac Type Severity Reaction Status Date / Time atorvastatin [From Lipitor] AdvReac Unknown Verified 03/09/23 17:39 baclofen AdvReac Unknown Verified 03/09/23 17:39 Physical Exam Vitals: Vital Signs Temp Pulse Pulse Resp BP BP Pulse Ox 03/10/23 09:26 95 03/10/23 04:00 167/74 03/10/23 02:49 64 18 129/62 95 03/10/23 00:00 97.8 F 20 160/70 94 L 03/09/23 22:11 97.5 F L 62 18 164/77 98 03/09/23 21:04 62 20 162/83 97 03/09/23 18:39 64 18 186/85 99 03/09/23 17:26 98.3 F 68 20 180/80 97 Intake and Output 03/09/23 03/10/23 03/10/23 22:59 06:59 14:59 Other: # Voids 2 Weight 104.326 kg 104.4 kg Results 03/10/23 10:22 03/09/23 18:30 Cardiac Enzymes 03/09/23 03/09/23 03/09/23 Range/Units 18:30 18:30 21:07 AST 28 (17-59) U/L Troponin I <0.012 0.013 (0.000-0.034) ng/mL 03/10/23 Range/Units 00:56 AST (17-59) U/L Troponin I 0.013 (0.000-0.034) ng/mL Coagulation 03/09/23 Range/Units 18:30 PT 10.2 (9.0-12.0) sec APTT 25.7 (22.0-30.0) sec CBC 03/09/23 Range/Units 18:30 WBC 4.6 (3.8-10.6) k/uL RBC 3.49 L (4.30-5.90) m/uL Hgb 10.8 L (13.0-17.5) gm/dL Hct 31.2 L (39.0-53.0) % Plt Count 159 (150-450) k/uL Comprehensive Metabolic Panel 03/09/23 Range/Units 18:30 Sodium 134 L (137-145) mmol/L Potassium 4.7 (3.5-5.1) mmol/L Chloride 103 (98-107) mmol/L Carbon Dioxide 22 (22-30) mmol/L BUN 53 H (9-20) mg/dL Creatinine 3.01 H (0.66-1.25) mg/dL Glucose 293 H (74-99) mg/dL Calcium 8.1 L (8.4-10.2) mg/dL AST 28 (17-59) U/L ALT 16 (4-49) U/L Alkaline Phosphatase 83 (38-126) U/L Total Protein 6.8 (6.3-8.2) g/dL Albumin 3.3 L (3.5-5.0) g/dL Current Medications Generic Name Dose Route Start Last Admin Trade Name Freq PRN Reason Stop Dose Admin Albuterol Sulfate 2.5 mg 03/10/23 01:34 Albuterol Nebulized 2.5 Mg/3 Ml INHALATION RT-Q4H PRN Shortness Of Breath Amlodipine Besylate 5 mg 03/10/23 01:45 03/10/23 07:00 Amlodipine 5 Mg Tab PO 5 mg BID JOEY Administration Aspirin 325 mg 03/10/23 09:00 Aspirin 325 Mg Tab PO DAILY [facility] Budesonide/Formoterol Fumarate 2 puff 03/10/23 08:00 03/10/23 09:24 Symbicort 80-4.5 Mcg Inhaler INHALATION Not Given RT-BID [facility] Calcitriol 0.25 mcg 03/10/23 09:00 Calcitriol 0.25 Mcg Cap PO DAILY [facility] Dextrose/Water 25 ml 03/10/23 01:36 Dextrose 50% Syringe 50 Ml IVP PER PROTOCOL PRN Hypoglycemia Protocol Dextrose/Water 50 ml 03/10/23 01:36 Dextrose 50% Syringe 50 Ml IVP PER PROTOCOL PRN Hypoglycemia Protocol Ezetimibe 10 mg 03/10/23 09:00 Ezetimibe 10 Mg Tab PO DAILY [facility] Escitalopram Oxalate 10 mg 03/10/23 09:00 Escitalopram 10 Mg Tab PO DAILY [facility] Heparin Sodium (Porcine) 5,000 unit 03/10/23 08:00 Heparin Sodium,Porcine 5,000 Unit/Ml 1 Ml Vial SQ Q8HR [facility] Hydralazine HCl 25 mg 03/10/23 01:45 03/10/23 07:00 Hydralazine Hcl 25 Mg Tab PO 25 mg BID [facility] Administration Insulin Aspart 0 unit 03/10/23 07:30 03/10/23 07:00 Insulin Aspart (Novolog) 100 Unit/Ml Vial SQ 6 unit ACHS [facility] Administration Protocol Isosorbide Mononitrate 60 mg 03/10/23 09:00 03/10/23 07:00 Isosorbide Mononitrate Er 60 Mg Tab.Er.24h PO 60 mg BID [facility] Administration Loratadine 10 mg 03/10/23 09:00 Loratadine 10 Mg Tab PO DAILY [facility] Nitroglycerin 0.4 mg 03/09/23 20:01 Nitroglycerin Sl Tabs 0.4 Mg Tab SUBLINGUAL Q5M PRN Chest Pain Non-Formulary Medication 40 mg 03/10/23 21:00 Rosuvastatin Calcium [Crestor] PO HS [facility] Propranolol HCl 20 mg 03/10/23 09:00 Propranolol 20 Mg Tab PO DAILY [facility] Ranolazine 500 mg 03/10/23 01:45 03/10/23 07:00 Ranolazine 500 Mg Tab.Er.12h PO 500 mg BID [facility] Administration Intake and Output 03/09/23 03/10/23 03/10/23 22:59 06:59 14:59 Other: # Voids 2 Weight 104.326 kg 104.4 kg 03/09/23 18:30 03/09/23 18:30
[2023-03-10 12:01] LABS: Glucose,Whole Blood 293 mg/dL (70-110)
[2023-03-10 12:14] LABS: Partial Thromboplastin Time 25.2 sec (22.0-30.0); Prothrombin Time 10.4 sec (9.0-12.0)
[2023-03-10] MEDS: NITROGLYCERIN SL TABS 0.4 MG TAB SUBLINGUAL PRN ×2 (12:55→13:00)
[2023-03-10] MEDS: INSULIN PUMP MEAL BOLUS 1 UNIT MISC MISCELLANE SCH ×3 (14:30→22:19)
[2023-03-10] MEDS: HEPARIN SOD,PORK IN 0.45% NACL 25,000 UNIT in 0.45% NACL 1 250ML.BAG IV SCH (16:04)
[2023-03-10 16:24] LABS: Glucose,Whole Blood 248 mg/dL (70-110)
[2023-03-10] MEDS: NON FORMULARY DRUG (Rosuvastatin Calcium [Crestor] 40 MG Tablet) PO SCH (19:56)
[2023-03-10 20:00] LABS: Glucose,Whole Blood 145 mg/dL (70-110)
[2023-03-11 03:20] LABS: Glucose,Whole Blood 82 mg/dL (70-110)
[2023-03-11 04:16] LABS: Glucose,Whole Blood 77 mg/dL (70-110)
[2023-03-11 05:25] LABS: Glucose,Whole Blood 86 mg/dL (70-110)
[2023-03-11 05:55] LABS: Glucose,Whole Blood 88 mg/dL (70-110)
[2023-03-11] MEDS ORDERED: ASPIRIN 325 MG TAB PO ONE (06:00)
[2023-03-11] MEDS ORDERED: ATORVASTATIN 80 MG TAB PO ONE (06:00)
[2023-03-11] MEDS: INSULIN ASPART (NovoLOG) 100 UNIT/ML VIAL SQ SCH ×4 (06:01→20:28)
[2023-03-11] MEDS: INSULIN PUMP MEAL BOLUS 1 UNIT MISC MISCELLANE SCH ×4 (06:01→20:27)
[2023-03-11] MEDS: ASPIRIN 81 MG PO SCH (06:24)
[2023-03-11] MEDS: amLODIPine 5 MG TAB PO SCH ×2 (06:26→20:28)
[2023-03-11] MEDS: EZETIMIBE 10 MG TAB PO SCH (06:27)
[2023-03-11] MEDS: RANOLAZINE 500 MG TAB.ER.12H PO SCH ×2 (06:27→20:28)
[2023-03-11] MEDS: PROPRANOLOL 20 MG TAB PO SCH (06:27)
[2023-03-11] MEDS: ESCITALOPRAM 10 MG TAB PO SCH (06:27)
[2023-03-11] MEDS: ISOSORBIDE MONONITRATE ER 60 MG TAB.ER.24H PO SCH ×2 (06:27→20:28)
[2023-03-11] MEDS: hydrALAZINE HCL 25 MG TAB PO SCH ×2 (06:27→20:28)
[2023-03-11] MEDS: LORATADINE 10 MG TAB PO SCH (06:27)
[2023-03-11] MEDS: SODIUM CHLORIDE 0.9% 1,000 ML in EMPTY BAG 1 BAG IV SCH ×2 (06:28→20:29)
[2023-03-11] MEDS: SODIUM CHLORIDE 0.9% 1,000 ML IV SCH ×2 (06:28→20:29)
[2023-03-11 06:38] LABS: Basophils % (A) 0 %; Eosinophils # (A) 0.1 k/uL (0-0.7); Eosinophils % (A) 2 %; HCT 32.6 % (39.0-53.0); HGB 10.9 gm/dL (13.0-17.5); Lymphocytes # (A) 1.4 k/uL (1.0-4.8); Lymphocytes % (A) 26 %; MCH 30.1 pg (25.0-35.0); MCHC 33.4 g/dL (31.0-37.0); Mean Platelet Volume 8.7; Monocytes # (A) 0.5 k/uL (0-1.0); Monocytes % (A) 9 %; Neutrophils # (A) 3.1 k/uL (1.3-7.7); Neutrophils % (A) 60 %; Platelet Count 157 k/uL (150-450); RBC 3.62 m/uL (4.30-5.90); RDW 13.4 % (11.5-15.5); WBC 5.2 k/uL (3.8-10.6)
[2023-03-11 06:42] LABS: Prothrombin Time 10.3 sec (9.0-12.0)
[2023-03-11 06:44] LABS: African American GFR (CKD) 24 (>60 ml/min/1.73 sqM); Anion Gap 10 mmol/L; Blood Urea Nitrogen 45 mg/dL (9-20); Calcium 7.9 mg/dL (8.4-10.2); Carbon Dioxide 17 mmol/L (22-30); Chloride 110 mmol/L (98-107); Glucose 94 mg/dL (74-99); Non-African American GFR(CKD) 21 (>60 ml/min/1.73 sqM); Potassium 4.6 mmol/L (3.5-5.1); Sodium 137 mmol/L (137-145)
[2023-03-11] MEDS ORDERED: HEPARIN SODIUM,PORCINE (1 ML) 2,500 UNIT in SODIUM CHLORIDE 0.9% 250 ML IRRIGATION PRN (07:00)
[2023-03-11] MEDS ORDERED: HEPARIN SODIUM,PORCINE 10,000 UNIT in SODIUM CHLORIDE 0.9% 1,000 ML IRRIGATION PRN (07:00)
[2023-03-11] MEDS: SYMBICORT 80-4.5 MCG INHALER INHALATION SCH ×2 (08:19→19:35)
[2023-03-11 11:46] LABS: Glucose,Whole Blood 113 mg/dL (70-110)
[2023-03-11] MEDS ORDERED: LIDOCAINE 1% INJ 10MG/ML (20 ML MDV) ONE (13:59)
[2023-03-11] MEDS ORDERED: VERAPAMIL 2.5 MG/ML 2 ML AMP ONE (13:59)
[2023-03-11] MEDS ORDERED: HEPARIN SODIUM 1,000 UN/ML (10ML VL) ONE (13:59)
[2023-03-11] MEDS ORDERED: fentaNYL (PF) 50 MCG/ML 2 ML AMP ONE (13:59)
[2023-03-11] MEDS ORDERED: MIDAZOLAM 2 MG/2 ML VIAL IVP ONE (14:12)
[2023-03-11] MEDS ORDERED: fentaNYL (PF) 50 MCG/ML 2 ML AMP IVP ONE (14:12)
[2023-03-11] MEDS ORDERED: LIDOCAINE 1% INJ 10MG/ML (5 ML VIAL-PF) SQ ONE (14:15)
[2023-03-11] MEDS: VERAPAMIL SYRINGE (5 MG/10 ML) INTRAARTER ONE ×2 (14:17→14:46)
[2023-03-11] MEDS ORDERED: IV FLUID CONTINUATION 1,000 ML IV ONE (14:19)
[2023-03-11] MEDS: HEPARIN SODIUM 1,000 UN/ML (10ML VL) IV ONE ×2 (14:23→14:37)
[2023-03-11] MEDS ORDERED: SODIUM CHLORIDE 0.9% 1,000 ML IV ONE (14:25)
[2023-03-11] MEDS ORDERED: IOPAMIDOL-370 100ML BTL INJ ONE ×2 (14:54)
[2023-03-11] MEDS ORDERED: MAG HYDROX/AL HYDROX/SIMETH 30 ML CUP PO PRN (15:13)
[2023-03-11] MEDS ORDERED: RX INFO: IV CONTRAST WAS GIVEN 1 EACH MISC MISCELLANE PRN (15:13)
[2023-03-11] MEDS ORDERED: ATROPINE SULFATE 0.1 MG/ML 10ML SYRINGE IV PRN (15:13)
[2023-03-11] MEDS ORDERED: SODIUM CHLORIDE 0.9% 1,000 ML in EMPTY BAG 1 BAG IV SCH (15:15)
--- NOTE | 2023-03-11 15:45 | P.PN ---
Subjective Progress Note Date: 03/11/23 No new complaints. Pain has improved in the chest. Trops have been stable. Plan for [facility] today. If cath looks stable, discharge tomorrow Gen: awake, alert HEENT: normocephalic, atraumatic, good hearing acuity, moist mucous membranes Resp: good air exchange, breathing comfortably with no accessory muscle use CVS: good distal perfusion x 4, GI: soft, NTTP, ND : no SPT, no CVAT, bailey catheter not present MSK: no pitting edema, no clubbing Neuro: non-focal, moving all extremities Psych: cooperative, euthymic mood Hospital course: 72-year-old man with medical history of diabetes, hypertension, chronic kidney disease stage IV, CAD status post PCI 4, last in 2013, presented for chest pain. In the emergency room, patient was afebrile, 180/80, heart rate 68, 97% on room air. CBC demonstrates anemia to 10.8, otherwise unremarkable. Basic metabolic panel shows sodium of 134, BMI 53, creatinine 3.01, kidney function baseline. Liver function tests show low total albumin of 3.3. A1c is 7.5, glucose was 293. Coags are unremarkable. Troponin was less than 0.012 initially, then trended to 0.013. EKG shows sinus rhythm with first-degree AV block, left axis deviation, left anterior fascicular block with right bundle branch block, no signs of ischemia. Chest x-ray shows normal-sized heart, no infiltrates or opacities concerning for acute pulmonary process. Case was discussed with emergency room N decision was made to admit the patient hospital for further evaluation of chest pain. Assessment: Chest pain Hypertensive urgency History of CAD Chronic kidney disease stage IV Diabetes type 2 Hyperlipidemia Plan: Continue aspirin 81 mg daily, Imdur 60 mg twice a day, Crestor 40 mg at bedtime, propanolol 20 mg daily Continue heparin drip, monitor PTT for toxicity Continue zetia Nitroglycerin 0.4 mg sublingual every 5 minutes when necessary for chest pain Cardiology consultation appreciated Patient is full code Objective - Vital Signs Vital signs: Vital Signs Temp 97.8 F 03/11/23 08:00 Pulse 67 03/11/23 12:00 Resp 18 03/11/23 12:00 BP 169/77 03/11/23 12:00 Pulse Ox 98 03/11/23 12:00 FiO2 Intake & Output 08/10/23 08/11/23 08/11/23 18:59 06:59 18:59 Intake Total 118 379.516 100 Balance 118 379.516 100 Intake: IV 100 Intake, IV Titration 379.516 Amount Heparin Sod,Pork in 0.45% 79.516 NaCl 25,000 unit In 0.45 % NaCl 1 250ml.bag @ 9.58 UNITS/KG/HR 10.002 mls/ hr IV .Q24H JOEY Rx#: [id number] Sodium Chloride 0.9% 1, 300 000 ml @ 100 mls/hr IV . Q10H JOEY Rx#:[id number] Oral 118 Other: # Voids 1 - Labs CBC & Chem 7: 03/11/23 06:08 03/11/23 06:08 Labs: Abnormal Lab Results - Last 24 Hours (Table) 03/10/23 03/10/23 03/10/23 Range/Units 16:22 19:58 22:27 RBC (4.30-5.90) m/uL Hgb (13.0-17.5) gm/dL Hct (39.0-53.0) % APTT 33.1 H (22.0-30.0) sec Chloride (98-107) mmol/L Carbon Dioxide (22-30) mmol/L BUN (9-20) mg/dL Creatinine (0.66-1.25) mg/dL POC Glucose (mg/dL) 248 H 145 H (70-110) mg/dL Calcium (8.4-10.2) mg/dL 03/11/23 03/11/23 03/11/23 Range/Units 06:08 06:08 06:08 RBC 3.62 L (4.30-5.90) m/uL Hgb 10.9 L (13.0-17.5) gm/dL Hct 32.6 L (39.0-53.0) % APTT 35.3 H (22.0-30.0) sec Chloride 110 H (98-107) mmol/L Carbon Dioxide 17 L (22-30) mmol/L BUN 45 H (9-20) mg/dL Creatinine 2.87 H (0.66-1.25) mg/dL POC Glucose (mg/dL) (70-110) mg/dL Calcium 7.9 L (8.4-10.2) mg/dL 03/11/23 Range/Units 11:42 RBC (4.30-5.90) m/uL Hgb (13.0-17.5) gm/dL Hct (39.0-53.0) % APTT (22.0-30.0) sec Chloride (98-107) mmol/L Carbon Dioxide (22-30) mmol/L BUN (9-20) mg/dL Creatinine (0.66-1.25) mg/dL POC Glucose (mg/dL) 113 H (70-110) mg/dL Calcium (8.4-10.2) mg/dL
--- NOTE | 2023-03-11 15:52 | P.CARDCATH ---
Description of Procedure: PROCEDURES PERFORMED: Left heart catheterization, bilateral coronary angiography, ultrasound guided arterial access, iFR of LAD, RCA INDICATION: Pain with minimal exertion concerning for unstable angina, history of CAD, chronic kidney disease CONSENT:I have discussed the risks, benefits and alternative therapies for the above-mentioned procedure and for both sedation/analgesia as well as necessary blood product administration, if indicated, as they pertain to this patient. The patient has indicated understanding and acceptance of the risks and procedures discussed. PROCEDURE: After the risks, benefits and alternatives of the above mentioned procedure explained in detail with the patient, informed consent was obtained. Patient was taken to the catheterization lab and prepped and draped in usual fashion. Ultrasound guidance was used to assess for arterial access. 1% lidocaine was used to anesthetize the right radial artery. A 6-Bermudian sheath was placed in the right radial artery using modified Seldinger technique and ultrasound guidance. Left coronary angiography was performed with a 5-Bermudian JL 3.5 catheter and right coronary angiography was performed with a 5-Bermudian JR5 catheter in various views. There was difficulty attempting to advance a 6- [place]ian AR to catheter as well as difficulty fully advanced in the radial sheath and diffuse calcification of the radial and ulnar artery noted under x-ray. A 5-Bermudian FR5 catheter was inserted into the left ventricle and pressure measurements were obtained. The decision was made to perform iFR of the LAD and RCA. Heparin was given. Through the diagnostic catheter given no 6-Bermudian catheters were able to be advanced, a 0.014 wire was advanced in the left main and normalized before the left main lesion. It was then advanced 1 cm distal to the mid LAD lesion. iFR was abnormal at 0.79. With pullback the iFR was normal just after the left main at 0.96 with majority of pressure difference coming from the proximal to mid LAD. Likewise, the 0.014 pressure wire was advanced into the proximal RCA through the diagnostic sheath in normalized. It was then advanced 1 cm distal to the RCA lesion and iFR was normal at 0.90. Given contrast threshold no further intervention was recommended at this point. The right radial sheath was removed and a TR band was placed with hemostasis achieved. The patient tolerated the procedure well. Patient was transported back to the post catheterization holding area in stable condition. Conscious Sedation: Patient was monitored under the direct supervision of myself for conscious sedation using Versed and fentanyl for a total duration of 42 minutes HEMODYNAMICS: Aorta: 148/72 LV: 141/80, LVEDP 23 SELECTIVE CORONARY ARTERIOGRAPHY: LEFT MAIN: The left main is a large caliber vessel which trifurcates into the LAD, ramus and circumflex. There is a long area of 40-50% mid to distal left main stenosis. LEFT ANTERIOR DESCENDING CORONARY ARTERY: LAD is a large caliber vessel which wraps around to the apex. There is diffuse proximal to mid LAD stenosis. The proximal and mid LAD has a long stents with 40-50% in-stent stenosis and otherwise diffuse 50-60% stenosis up to the mid LAD. The mid to distal LAD has no significant stenosis. RAMUS INTERMEDIUS: Ramus is small caliber with mild tenderness to 20% stenosis. LEFT CIRCUMFLEX CORONARY ARTERY: Left circumflex is a moderate caliber vessel a proximal stent with 100% proximal circumflex stenosis. RIGHT CORONARY ARTERY: The right coronary artery is a moderate caliber vessel which gives off a PDA and PLV branch and is the dominant vessel. There is diffuse 20-30% proximal stenosis and a more focal 50-60% mid RCA stenosis. FINAL IMPRESSION: 1. CAD as described above including 40-50% mid to distal left main stenosis, 50-60% mid LAD stenosis, 100% circumflex stenosis, 50-60% mid RCA stenosis 2. iFR abnormal of the LAD mainly from the proximal and mid LAD, iFR RCA normal 3. Elevated left sided filling pressures PLAN: 1. Aggressive risk factor modification per most recent ACC/AHA guidelines. 2. Given contrast/old may consider more conservative approach. Diagnostic films appear fairly similar to prior images in 2017 however some progression of left main disease. Majority of abnormal iFR coming from the proximal mid LAD and if continues to be symptomatic and consider PCI of heavily calcified LAD.
[2023-03-11 16:18] LABS: Glucose,Whole Blood 130 mg/dL (70-110)
[2023-03-11] MEDS: HEPARIN SOD,PORK IN 0.45% NACL 25,000 UNIT in 0.45% NACL 1 250ML.BAG IV SCH (19:04)
[2023-03-11 20:14] LABS: Glucose,Whole Blood 251 mg/dL (70-110)
[2023-03-11] MEDS: NON FORMULARY DRUG (Rosuvastatin Calcium [Crestor] 40 MG Tablet) PO SCH (20:29)
[2023-03-12] MEDS: SODIUM CHLORIDE 0.9% 1,000 ML IV SCH ×3 (05:39→20:45)
[2023-03-12] MEDS: SODIUM CHLORIDE 0.9% 1,000 ML in EMPTY BAG 1 BAG IV SCH ×2 (05:40→12:29)
[2023-03-12 06:08] LABS: Glucose,Whole Blood 67 mg/dL (70-110)
[2023-03-12] MEDS: INSULIN ASPART (NovoLOG) 100 UNIT/ML VIAL SQ SCH ×4 (06:24→20:45)
[2023-03-12] MEDS: INSULIN PUMP MEAL BOLUS 1 UNIT MISC MISCELLANE SCH ×4 (06:24→20:45)
[2023-03-12 06:29] LABS: Glucose,Whole Blood 105 mg/dL (70-110)
[2023-03-12] MEDS: SYMBICORT 80-4.5 MCG INHALER INHALATION SCH ×2 (08:38→20:25)
[2023-03-12 08:56] LABS: African American GFR (CKD) 26 (>60 ml/min/1.73 sqM); Anion Gap 12 mmol/L; Blood Urea Nitrogen 37 mg/dL (9-20); Calcium 7.9 mg/dL (8.4-10.2); Carbon Dioxide 18 mmol/L (22-30); Chloride 108 mmol/L (98-107); Glucose 169 mg/dL (74-99); Non-African American GFR(CKD) 22 (>60 ml/min/1.73 sqM); Potassium 5.1 mmol/L (3.5-5.1); Sodium 138 mmol/L (137-145)
[2023-03-12] MEDS: RANOLAZINE 500 MG TAB.ER.12H PO SCH ×2 (09:09→20:45)
[2023-03-12] MEDS: amLODIPine 5 MG TAB PO SCH ×2 (09:09→20:45)
[2023-03-12] MEDS: ASPIRIN 81 MG PO SCH (09:09)
[2023-03-12] MEDS: LORATADINE 10 MG TAB PO SCH (09:09)
[2023-03-12] MEDS: PROPRANOLOL 20 MG TAB PO SCH (09:09)
[2023-03-12] MEDS: ESCITALOPRAM 10 MG TAB PO SCH (09:09)
[2023-03-12] MEDS: EZETIMIBE 10 MG TAB PO SCH (09:09)
[2023-03-12] MEDS: ISOSORBIDE MONONITRATE ER 60 MG TAB.ER.24H PO SCH ×2 (09:09→20:45)
[2023-03-12] MEDS: hydrALAZINE HCL 25 MG TAB PO SCH ×2 (09:09→20:45)
[2023-03-12 09:21] LABS: Basophils % (A) 0 %; Eosinophils # (A) 0.1 k/uL (0-0.7); Eosinophils % (A) 2 %; HCT 34.7 % (39.0-53.0); HGB 11.9 gm/dL (13.0-17.5); Lymphocytes # (A) 1.3 k/uL (1.0-4.8); Lymphocytes % (A) 28 %; MCHC 34.4 g/dL (31.0-37.0); Mean Platelet Volume 8.4; Monocytes # (A) 0.4 k/uL (0-1.0); Monocytes % (A) 9 %; Neutrophils # (A) 2.7 k/uL (1.3-7.7); Neutrophils % (A) 58 %; Platelet Count 155 k/uL (150-450); RBC 3.85 m/uL (4.30-5.90); RDW 13.2 % (11.5-15.5); WBC 4.6 k/uL (3.8-10.6)
[2023-03-12] MEDS: HEPARIN SOD,PORK IN 0.45% NACL 25,000 UNIT in 0.45% NACL 1 250ML.BAG IV SCH (09:57)
[2023-03-12] MEDS: carvediloL 3.125 MG TAB PO SCH ×2 (10:21→16:59)
[2023-03-12 11:44] LABS: Glucose,Whole Blood 187 mg/dL (70-110)
--- NOTE | 2023-03-12 12:00 | P.PN ---
Subjective Progress Note Date: 03/12/23 This is Hao Teran NP, I'm dictating on behalf of Dr. Huffman's H&P and A&P. Patient was interviewed and examined. Patient is a pleasant 72-year-old male who presented to the hospital with chest pain, and subsequently underwent cardiac catheterization yesterday. Results demonstrated coronary artery disease with 40-50% occlusion in the mid to distal left main, 50-60% occlusion in the mid LAD, 100% occlusion in the circumflex, and 50-60% occlusion in the mid RCA. The stenosis to the mid to distal left main is long. Subsequently interventional cardiology is developing a plan to address the patient's symptomatic coronary artery disease. Otherwise today the patient reports that he is feeling okay. He is denying chest pain and shortness of breath today. He states overall he feels good. GENERAL: Well-appearing, well-nourished and in no acute distress. NECK: Supple without JVD or thyromegaly. LUNGS: Breath sounds clear to auscultation bilaterally. Respiration equal and unlabored. No wheezes, rales or rhonchi. HEART: Regular rate and rhythm without murmurs, rubs or gallops. S1 and S2 heard. EXTREMITIES: Normal range of motion, no edema. No clubbing or cyanosis. Peripheral pulses intact and strong. VITALS: Temp 98.3, pulse 64, respirations 18, blood pressure 141/67, O2 saturation 98% on room air TELEMETRY: Normal sinus rhythm LABS: White count 4.6, hemoglobin 11.9, sodium 138, potassium 5.1, B1 37, creatinine 2.7, calcium 7.9 IMPRESSION: 1. Chest pain 2. 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 3. Chronic kidney disease 4. Mild nonischemic cardiomyopathy 5. Chronic heart failure with preserved ejection fraction, currently euvolemic 6. Hypertension 7. Hyperlipidemia 8. Diabetes 9. Neuropathy 10. Obstructive sleep apnea 11. Chronic fatigue PLAN: Patient is currently on near maximum medical treatment. 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 Start carvedilol 3.125 mg twice a day for better blood pressure control Further recommendations based on patient's clinical course Objective - Vital Signs Vital signs: Vital Signs Temp 98.3 F 03/12/23 08:00 Pulse 64 03/12/23 08:00 Resp 18 03/12/23 08:00 BP 152/60 03/12/23 09:54 Pulse Ox 98 03/12/23 08:00 FiO2 Intake & Output 03/11/23 03/12/23 03/12/23 18:59 06:59 18:59 Intake Total 218 480 118 Balance 218 480 118 Weight 104.4 kg Intake: IV 100 Oral 118 480 118 Other: # Voids 1 - Labs CBC & Chem 7: 03/12/23 08:03 03/12/23 08:03 Labs: Abnormal Lab Results - Last 24 Hours (Table) 03/11/23 03/11/23 03/12/23 Range/Units 16:15 20:12 06:06 RBC (4.30-5.90) m/uL Hgb (13.0-17.5) gm/dL Hct (39.0-53.0) % Chloride (98-107) mmol/L Carbon Dioxide (22-30) mmol/L BUN (9-20) mg/dL Creatinine (0.66-1.25) mg/dL Glucose (74-99) mg/dL POC Glucose (mg/dL) 130 H 251 H 67 L (70-110) mg/dL Calcium (8.4-10.2) mg/dL 03/12/23 03/12/23 03/12/23 Range/Units 08:03 08:03 11:42 RBC 3.85 L (4.30-5.90) m/uL Hgb 11.9 L (13.0-17.5) gm/dL Hct 34.7 L (39.0-53.0) % Chloride 108 H (98-107) mmol/L Carbon Dioxide 18 L (22-30) mmol/L BUN 37 H (9-20) mg/dL Creatinine 2.70 H (0.66-1.25) mg/dL Glucose 169 H (74-99) mg/dL POC Glucose (mg/dL) 187 H (70-110) mg/dL Calcium 7.9 L (8.4-10.2) mg/dL
--- NOTE | 2023-03-12 13:22 | P.PN ---
Subjective Progress Note Date: 03/12/23 No new complaints. LHC shows significant disease with concerning iFR of LAD. Interventionalist planning on PCI on tuesday. Gen: awake, alert HEENT: normocephalic, atraumatic, good hearing acuity, moist mucous membranes Resp: good air exchange, breathing comfortably with no accessory muscle use CVS: good distal perfusion x 4, GI: soft, NTTP, ND : no SPT, no CVAT, bailey catheter not present MSK: no pitting edema, no clubbing Neuro: non-focal, moving all extremities Psych: cooperative, euthymic mood Hospital course: 72-year-old man with medical history of diabetes, hypertension, chronic kidney d isease stage IV, CAD status post PCI 4, last in 2013, presented for chest pain. In the emergency room, patient was afebrile, 180/80, heart rate 68, 97% on room air. CBC demonstrates anemia to 10.8, otherwise unremarkable. Basic metabolic panel shows sodium of 134, BMI 53, creatinine 3.01, kidney function baseline. Liver function tests show low total albumin of 3.3. A1c is 7.5, glucose was 29 3. Coags are unremarkable. Troponin was less than 0.012 initially, then trended to 0.013. EKG shows sinus rhythm with first-degree AV block, left axis deviation, left anterior fascicular block with right bundle branch block, no signs of ischemia. Chest x-ray shows normal-sized heart, no infiltrates or opacities concerning for acute pulmonary process. Case was discussed with emergency room N decision was made to admit the patient hospital for further evaluation of chest pain. Assessment: Chest pain Hypertensive urgency History of CAD Chronic kidney disease stage IV Diabetes type 2 Hyperlipidemia Plan: Hgb 11.9. CO2 18, Cr 2.7 Consult placed to nephrology for CKD IV with plan for LHC on tuesday Continue aspirin 81 mg daily, Imdur 60 mg twice a day, Crestor 40 mg at bedtime, propanolol 20 mg daily Continue heparin drip, monitor PTT for toxicity Continue zetia Nitroglycerin 0.4 mg sublingual every 5 minutes when necessary for chest pain Cardiology consultation appreciated Patient is full code Objective - Vital Signs Vital signs: Vital Signs Temp 98.7 F 03/12/23 12:48 Pulse 60 03/12/23 12:48 Resp 18 03/12/23 12:48 BP 124/61 03/12/23 12:48 Pulse Ox 99 03/12/23 12:48 FiO2 Intake & Output 03/11/23 03/12/23 03/12/23 18:59 06:59 18:59 Intake Total 218 479 918 Balance 218 724 918 Weight 104.4 kg Intake: IV 100 Intake, IV Titration 800 Amount Sodium Chloride 0.9% 1, 800 000 ml @ 100 mls/hr IV . Q10H [facility] Rx#:[id number] Oral 118 480 118 Other: # Voids 1 - Labs CBC & Chem 7: 03/12/23 08:03 03/12/23 08:03 Labs: Abnormal Lab Results - Last 24 Hours (Table) 03/11/23 03/11/23 03/12/23 Range/Units 16:15 20:12 06:06 RBC (4.30-5.90) m/uL Hgb (13.0-17.5) gm/dL Hct (39.0-53.0) % Chloride (98-107) mmol/L Carbon Dioxide (22-30) mmol/L BUN (9-20) mg/dL Creatinine (0.66-1.25) mg/dL Glucose (74-99) mg/dL POC Glucose (mg/dL) 130 H 251 H 67 L (70-110) mg/dL Calcium (8.4-10.2) mg/dL 03/12/23 03/12/23 03/12/23 Range/Units 08:03 08:03 11:42 RBC 3.85 L (4.30-5.90) m/uL Hgb 11.9 L (13.0-17.5) gm/dL Hct 34.7 L (39.0-53.0) % Chloride 108 H (98-107) mmol/L Carbon Dioxide 18 L (22-30) mmol/L BUN 37 H (9-20) mg/dL Creatinine 2.70 H (0.66-1.25) mg/dL Glucose 169 H (74-99) mg/dL POC Glucose (mg/dL) 187 H (70-110) mg/dL Calcium 7.9 L (8.4-10.2) mg/dL
[2023-03-12 16:19] LABS: Glucose,Whole Blood 92 mg/dL (70-110)
[2023-03-12 19:56] LABS: Glucose,Whole Blood 76 mg/dL (70-110)
[2023-03-12] MEDS: NON FORMULARY DRUG (Rosuvastatin Calcium [Crestor] 40 MG Tablet) PO SCH (20:46)
[2023-03-13 04:33] LABS: Glucose,Whole Blood 84 mg/dL (70-110)
[2023-03-13 05:58] LABS: Glucose,Whole Blood 87 mg/dL (70-110)
[2023-03-13] MEDS: INSULIN ASPART (NovoLOG) 100 UNIT/ML VIAL SQ SCH ×4 (06:35→20:23)
[2023-03-13] MEDS: SODIUM CHLORIDE 0.9% 1,000 ML in EMPTY BAG 1 BAG IV SCH ×2 (06:38→08:38)
[2023-03-13] MEDS: carvediloL 3.125 MG TAB PO SCH ×2 (06:38→17:27)
[2023-03-13 07:28] LABS: African American GFR (CKD) 24 (>60 ml/min/1.73 sqM); Anion Gap 13 mmol/L; Blood Urea Nitrogen 38 mg/dL (9-20); Calcium 8.1 mg/dL (8.4-10.2); Carbon Dioxide 16 mmol/L (22-30); Chloride 108 mmol/L (98-107); Glucose 72 mg/dL (74-99); Non-African American GFR(CKD) 21 (>60 ml/min/1.73 sqM); Potassium 4.7 mmol/L (3.5-5.1); Sodium 137 mmol/L (137-145)
[2023-03-13] MEDS: SYMBICORT 80-4.5 MCG INHALER INHALATION SCH ×2 (08:11→21:02)
[2023-03-13] MEDS: INSULIN PUMP MEAL BOLUS 1 UNIT MISC MISCELLANE SCH ×4 (08:16→20:23)
[2023-03-13] MEDS: SODIUM CHLORIDE 0.9% 1,000 ML IV SCH (08:38)
[2023-03-13] MEDS: ASPIRIN 81 MG PO SCH (09:01)
[2023-03-13] MEDS: EZETIMIBE 10 MG TAB PO SCH (09:01)
[2023-03-13] MEDS: RANOLAZINE 500 MG TAB.ER.12H PO SCH ×2 (09:01→20:22)
[2023-03-13] MEDS: amLODIPine 5 MG TAB PO SCH ×2 (09:01→20:22)
[2023-03-13] MEDS: ESCITALOPRAM 10 MG TAB PO SCH (09:01)
[2023-03-13] MEDS: PROPRANOLOL 20 MG TAB PO SCH (09:01)
[2023-03-13] MEDS: LORATADINE 10 MG TAB PO SCH (09:01)
[2023-03-13] MEDS: ISOSORBIDE MONONITRATE ER 60 MG TAB.ER.24H PO SCH ×2 (09:01→20:22)
[2023-03-13] MEDS: hydrALAZINE HCL 25 MG TAB PO SCH ×2 (09:01→20:22)
--- NOTE | 2023-03-13 10:18 | P.PN ---
Subjective Progress Note Date: 03/13/23 No new complaints. LHC shows significant disease with concerning iFR of LAD. Interventionalist planning on PCI on tuesday. Nephrology consulted for help with management of CKD IV annemarie-procedure Gen: awake, alert HEENT: normocephalic, atraumatic, good hearing acuity, moist mucous membranes Resp: good air exchange, breathing comfortably with no accessory muscle use CVS: good distal perfusion x 4, GI: soft, NTTP, ND : no SPT, no CVAT, bailey catheter not present MSK: no pitting edema, no clubbing Neuro: non-focal, moving all extremities Psych: cooperative, euthymic mood Hospital course: 72-year-old man with medical history of diabetes, hypertension, chronic kidney disease stage IV, CAD status post PCI 4, last in 2013, presented for chest pain. In the emergency room, patient was afebrile, 180/80, heart rate 68, 97% on room air. CBC demonstrates anemia to 10.8, otherwise unremarkable. Basic metabolic panel shows sodium of 134, BMI 53, creatinine 3.01, kidney function baseline. Liver function tests show low total albumin of 3.3. A1c is 7.5, glucose was 293. Coags are unremarkable. Troponin was less than 0.012 initially, then trended to 0.013. EKG shows sinus rhythm with first-degree AV block, left axis deviation, left anterior fascicular block with right bundle branch block, no signs of ischemia. Chest x-ray shows normal-sized heart, no infiltrates or opacities concerning for acute pulmonary process. Case was discussed with emergency room N decision was made to admit the patient hospital for further evaluation of chest pain. Assessment: Chest pain Hypertensive urgency History of CAD Chronic kidney disease stage IV Diabetes type 2 Hyperlipidemia Plan: CO2 16, Cr 2.8 Consult placed to nephrology for CKD IV with plan for LHC on tuesday. Discussed with cardiology, they are still weighing options on best approach for PCI Jese Score for post-PCI nephropathy: 57.3% risk of EMMA with 12.6% chance of needing dialysis if 100 or more cc of contrast used; 26.1% and 1.09% if < 100cc of contrast used. CBC, BMP, Mg ordered for tomorrow Continue aspirin 81 mg daily, Imdur 60 mg twice a day, Crestor 40 mg at bedtime, propanolol 20 mg daily Continue heparin drip, monitor PTT for toxicity Continue zetia Nitroglycerin 0.4 mg sublingual every 5 minutes when necessary for chest pain Cardiology consultation appreciated Patient is full code Objective - Vital Signs Vital signs: Vital Signs Temp 97.8 F 03/13/23 08:10 Pulse 69 03/13/23 08:10 Resp 18 03/13/23 08:10 BP 149/70 03/13/23 08:10 Pulse Ox 98 03/13/23 08:10 FiO2 Intake & Output 03/12/23 03/13/23 03/13/23 18:59 06:59 18:59 Intake Total 1154 1680 358 Balance 1154 1680 358 Weight 104.4 kg 110.3 kg Intake: Intake, IV Titration 800 1200 Amount Sodium Chloride 0.9% 1, 800 1200 000 ml @ 100 mls/hr IV . Q10H [facility] Rx#:[id number] Oral 354 480 358 - Labs CBC & Chem 7: 03/12/23 08:03 03/13/23 06:50 Labs: Abnormal Lab Results - Last 24 Hours (Table) 03/12/23 03/13/23 Range/Units 11:42 06:50 Chloride 108 H (98-107) mmol/L Carbon Dioxide 16 L (22-30) mmol/L BUN 38 H (9-20) mg/dL Creatinine 2.84 H (0.66-1.25) mg/dL Glucose 72 L (74-99) mg/dL POC Glucose (mg/dL) 187 H (70-110) mg/dL Calcium 8.1 L (8.4-10.2) mg/dL
--- NOTE | 2023-03-13 11:32 | P.NPCON ---
History of Present Illness - Reason for Consult chronic renal failure - History of Present Illness Patient is a 72-year-old male with history of CK D stage IV with baseline creatinine around 2.9-3 mg/dL secondary to diabetic kidney disease. Patient is admitted to the hospital with complaints of chest pain. He did have cardiac catheterization on 03/11/2023 which showed significant coronary artery disease with plans for possible intervention on the LAD down the road. Patient is currently chest pain-free. He denies any significant shortness of breath at rest but does get short of breath on exertion. Patient did receive IV fluids which are currently discontinued. Serum creatinine staying at 2.8-2.9 mg/dL. Patient states he has been voiding well. Review of Systems As per HPI Past Medical History Past Medical History: Coronary Artery Disease (CAD), Chest Pain / Angina, Heart Failure, Diabetes Mellitus, Hyperlipidemia, Hypertension, Myocardial Infarction (NM), Renal Disease, Sleep Apnea/CPAP/BIPAP Additional Past Medical History / Comment(s): 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, coronary artery disease, diabetes mellitus, hypertension, chronic renal failure, hyperlipidemia, JEN, pt has insulin pump Last Myocardial Infarction Date:: 03/04/14 History of Any Multi-Drug Resistant Organisms: None Reported Past Surgical History: Cholecystectomy, Heart Catheterization, Heart Catheterization With Stent, Orthopedic Surgery Additional Past Surgical History / Comment(s): shoulder, hemmroid, cardiac stent in june 2014, eye surgery, 3-4 cardiac stents Past Anesthesia/Blood Transfusion Reactions: No Reported Reaction Additional Past Anesthesia/Blood Transfusion Reaction / Comment(s): Never had a blood transfusion Date of Last Stent Placement:: 05/2014 Past Psychological History: Anxiety Additional Psychological History / Comment(s): Shopping and crowds bother patient. Smoking Status: Former smoker Past Alcohol Use History: None Reported Additional Past Alcohol Use History / Comment(s): pt. quit smoking in 1980 Past Drug Use History: None Reported - Past Family History Father Family Medical History: Cancer Additional Family Medical History / Comment(s): bladder cancer Mother Family Medical History: Diabetes Mellitus Additional Family Medical History / Comment(s): Pancreatic CA Medications and Allergies Home Medications Medication Instructions Recorded Confirmed Type Cetirizine HCl 10 mg PO DAILY 03/03/14 03/09/23 History Nitroglycerin Sl Tabs [Nitrostat] 0.4 mg SL Q5M PRN 03/03/14 03/09/23 History Rosuvastatin Calcium [Crestor] 40 mg PO HS 03/03/14 03/09/23 History Ezetimibe [Zetia] 10 mg PO DAILY 05/19/16 03/09/23 History Ferrous Sulfate [Iron (65 MG 325 mg PO DAILY 05/19/16 03/09/23 History Elemental)] Ergocalciferol (Vitamin D2) 50,000 unit PO Q14D 05/28/18 03/09/23 History [Vitamin D2] Febuxostat [Uloric] 40 mg PO DAILY 05/28/18 03/09/23 History Insulin Aspart (For Pump) [NovoLOG 0.01 unit SQ-PUMP CONTINUOUS MDD 05/28/18 03/09/23 History (For Pump)] 60 UNITS Vitamin B Complex 1 cap PO DAILY 05/28/18 03/09/23 History Isosorbide Mononitrate ER [Imdur] 60 mg PO BID 07/05/18 03/09/23 History calcitrioL [Calcitriol] 0.25 mcg PO DAILY 07/05/18 03/09/23 History Pramipexole [Mirapex] 0.5 mg PO HS 05/02/19 03/09/23 History Ranolazine [Ranexa] 500 mg PO BID 05/02/19 03/09/23 History Propranolol [Inderal] 20 mg PO DAILY 07/28/20 03/09/23 History Dulaglutide [Trulicity] 1.5 mg SQ VALLECILLO 05/23/21 03/09/23 History Albuterol Inhaler [Ventolin Hfa 2 puff INHALATION RT-Q4H PRN 08/10/21 03/09/23 History Inhaler] Fluticasone Propion/Salmeterol 1 puff INHALATION RT-BID PRN 08/10/21 03/09/23 History [Wixela 100-50 Inhub] Furosemide [Lasix] 40 mg PO DAILY 30 Days #30 tablet 10/20/21 03/09/23 Rx Aspirin EC [Ecotrin Low Dose] 81 mg PO HS 02/21/22 03/09/23 History Cholecalciferol [Vitamin D3 (25 25 mcg PO DAILY 02/21/22 03/09/23 History Mcg = 1000 Iu)] Glucagon Emergency Kit 1 mg IM ONCE PRN 02/21/22 03/09/23 History Escitalopram [Lexapro] 10 mg PO DAILY 01/01/23 03/09/23 History hydrALAZINE HCL [Apresoline] 25 mg PO BID #60 tab 01/03/23 03/09/23 Rx amLODIPine [Norvasc] 5 mg PO BID 02/03/23 03/09/23 History Allergies Allergy/AdvReac Type Severity Reaction Status Date / Time atorvastatin [From Lipitor] AdvReac Unknown Verified 03/09/23 17:39 baclofen AdvReac Unknown Verified 03/09/23 17:39 Physical Exam Vitals: Vital Signs Temp Pulse Resp BP Pulse Ox 03/13/23 08:10 97.8 F 69 18 149/70 98 03/13/23 03:53 97.7 F 66 18 137/68 96 03/13/23 02:00 64 03/12/23 23:30 97.6 F 64 18 126/65 95 03/12/23 20:00 66 03/12/23 19:37 97.8 F 66 18 161/69 97 03/12/23 15:41 98.7 F 61 18 133/66 100 03/12/23 12:48 98.7 F 60 18 124/61 99 Intake and Output 03/12/23 03/13/23 03/13/23 22:59 06:59 14:59 Intake Total 598 1200 358 Balance 598 1200 358 Intake: Intake, IV Titration 1200 Amount Sodium Chloride 0.9% 1, 1200 000 ml @ 100 mls/hr IV . Q10H [facility] Rx#:[id number] Oral 598 358 Other: Weight 110.3 kg Patient is awake comfortable Alert oriented 3 Examination of the heart S1 and S2 Examination of the lungs bilateral breath sounds are heard Abdomen is soft nontender Examination of lower extremities shows 2+ edema [employer] exam grossly intact Results - Lab Results Most recent lab results Calcium 8.1 mg/dL (8.4-10.2) L 03/13/23 06:50 Magnesium 2.1 mg/dL (1.6-2.3) 03/09/23 18:30 03/12/23 08:03 03/13/23 06:50 Assessment and Plan Assessment: 1. Chronic kidney disease NKF stage IV with baseline creatinine around 3 mg/dL. Etiology is diabetic kidney disease 2. Coronary artery disease status post cardiac catheterization on 03/11/2023 with plans for further intervention on LAD 3. Hypertensive urgency with improved blood pressures 4. CK D mineral bone disorder 5. Volume overload 6. Non-gap metabolic acidosis associated with chronic kidney disease Plan: Continue off of IV fluids Discussed with patient regarding risk of worsening renal function post further cardiac catheterization and need for dialysis. Monitor closely for need for diuretics Avoid hypotension Avoid any other nephrotoxic medications. Add sodium bicarb Repeat labs in a.m. Accurate I's and O's next Thank you for the consultation. We will continue to follow the patient with you during his hospitalization
[2023-03-13 11:33] LABS: Glucose,Whole Blood 124 mg/dL (70-110)
--- NOTE | 2023-03-13 11:39 | P.PN ---
Subjective Progress Note Date: 03/13/23 This is Hao Teran NP, I'm dictating on behalf of Dr. Huffman's H&P and A&P. Patient was interviewed and examined. The patient is a pleasant 72-year-old male who presented to Hospital chest pain, and subsequently underwent cardiac catheterization 2 days ago. Today the patient states that he has no chest pain or shortness of breath. He does report getting tired and shortness of breath with exertion still. His Ranexa was increased, and subsequently he is no longer feeling any significant chest pain. We have been in discussion with interventional cardiology as to when they would like to potentially intervene on the stenosis of the left main artery. There is significant concern for the patient's current kidney function, as the procedure will be extensive, and will likely do more injury to his kidneys due to the amount of dye that will need to be used. Discussions are currently ongoing. The patient is aware of the current plan of care, and is in agreement at this time GENERAL: Well-appearing, well-nourished and in no acute distress. NECK: Supple without JVD or thyromegaly. LUNGS: Breath sounds clear to auscultation bilaterally. Respiration equal and unlabored. No wheezes, rales or rhonchi. HEART: Regular rate and rhythm without murmurs, rubs or gallops. S1 and S2 heard. EXTREMITIES: Normal range of motion, no edema. No clubbing or cyanosis. Peripheral pulses intact and strong. VITALS: Temp 97.8, pulse 69, respirations 18, blood pressure 149/70, O2 saturation 98% on room air TELEMETRY: Normal sinus rhythm LABS: Sodium 137, potassium 4.7, B1 38, creatinine 2.84, calcium 8.1 IMPRESSION: 1. Chest pain 2. Coronary artery disease with prior [employer] circumflex with collaterals; cardiac cath demonstrates 40-50% stenosis in the mid to distal left main, 50-60% stenosis in the mid LAD, 100% stenosis in the circumflex, and 50-60% stenosis in the mid RCA. 3. Chronic kidney disease 4. Mild nonischemic cardiomyopathy 5. Chronic heart failure with preserved ejection fraction, currently euvolemic 6. Hypertension 7. Hyperlipidemia 8. Diabetes 9. Neuropathy 10. Obstructive sleep apnea 11. Chronic fatigue PLAN: Discontinue IV heparin and IV fluids. Encourage patient to continue to walk in the hallways. Interventional cardiology still considering stent placement. Clear liquids starting tomorrow morning. Further recommendations based on patient's clinical course. Objective - Vital Signs Vital signs: Vital Signs Temp 97.8 F 03/13/23 08:10 Pulse 69 03/13/23 08:10 Resp 18 03/13/23 08:10 BP 149/70 03/13/23 08:10 Pulse Ox 98 03/13/23 08:10 FiO2 Intake & Output 03/12/23 03/13/23 03/13/23 18:59 06:59 18:59 Intake Total 1154 1680 358 Balance 1154 1680 358 Weight 104.4 kg 110.3 kg Intake: Intake, IV Titration 800 1200 Amount Sodium Chloride 0.9% 1, 800 1200 000 ml @ 100 mls/hr IV . Q10H [facility] Rx#:[id number] Oral 354 480 358 - Labs CBC & Chem 7: 03/12/23 08:03 03/13/23 06:50 Labs: Abnormal Lab Results - Last 24 Hours (Table) 03/12/23 03/13/23 03/13/23 Range/Units 11:42 06:50 11:28 Chloride 108 H (98-107) mmol/L Carbon Dioxide 16 L (22-30) mmol/L BUN 38 H (9-20) mg/dL Creatinine 2.84 H (0.66-1.25) mg/dL Glucose 72 L (74-99) mg/dL POC Glucose (mg/dL) 187 H 124 H (70-110) mg/dL Calcium 8.1 L (8.4-10.2) mg/dL
[2023-03-13 16:35] LABS: Glucose,Whole Blood 141 mg/dL (70-110)
[2023-03-13] MEDS: ALBUTEROL NEBULIZED 2.5 MG/3 ML INHALATION PRN (17:38)
[2023-03-13 20:16] LABS: Glucose,Whole Blood 184 mg/dL (70-110)
[2023-03-13] MEDS: SODIUM BICARBONATE TAB 650 MG TAB PO SCH (20:22)
[2023-03-13] MEDS: NON FORMULARY DRUG (Rosuvastatin Calcium [Crestor] 40 MG Tablet) PO SCH (20:24)
[2023-03-14 06:12] LABS: Glucose,Whole Blood 99 mg/dL (70-110)
[2023-03-14] MEDS: INSULIN ASPART (NovoLOG) 100 UNIT/ML VIAL SQ SCH ×4 (06:13→20:32)
[2023-03-14] MEDS: INSULIN PUMP MEAL BOLUS 1 UNIT MISC MISCELLANE SCH ×4 (06:15→20:32)
[2023-03-14] MEDS: carvediloL 3.125 MG TAB PO SCH ×2 (06:19→18:17)
[2023-03-14 08:10] LABS: Basophils % (A) 0 %; Eosinophils # (A) 0.1 k/uL (0-0.7); Eosinophils % (A) 1 %; HCT 33.9 % (39.0-53.0); HGB 11.3 gm/dL (13.0-17.5); Lymphocytes # (A) 1.3 k/uL (1.0-4.8); Lymphocytes % (A) 21 %; MCH 30.4 pg (25.0-35.0); MCHC 33.4 g/dL (31.0-37.0); Mean Platelet Volume 8.5; Monocytes # (A) 0.6 k/uL (0-1.0); Monocytes % (A) 10 %; Neutrophils # (A) 4.2 k/uL (1.3-7.7); Neutrophils % (A) 66 %; Platelet Count 175 k/uL (150-450); RBC 3.72 m/uL (4.30-5.90); RDW 13.6 % (11.5-15.5); WBC 6.3 k/uL (3.8-10.6)
[2023-03-14] MEDS: SYMBICORT 80-4.5 MCG INHALER INHALATION SCH ×2 (08:19→21:36)
[2023-03-14] MEDS: FUROSEMIDE 10 MG/ML 10 ML VIAL IV SCH (08:33)
[2023-03-14] MEDS: ISOSORBIDE MONONITRATE ER 60 MG TAB.ER.24H PO SCH ×2 (08:34→20:31)
[2023-03-14] MEDS: PROPRANOLOL 20 MG TAB PO SCH (08:34)
[2023-03-14] MEDS: ESCITALOPRAM 10 MG TAB PO SCH (08:34)
[2023-03-14] MEDS: RANOLAZINE 500 MG TAB.ER.12H PO SCH ×2 (08:34→20:31)
[2023-03-14] MEDS: LORATADINE 10 MG TAB PO SCH (08:34)
[2023-03-14] MEDS: ASPIRIN 81 MG PO SCH (08:34)
[2023-03-14] MEDS: EZETIMIBE 10 MG TAB PO SCH (08:34)
[2023-03-14] MEDS: SODIUM BICARBONATE TAB 650 MG TAB PO SCH ×2 (08:35→20:31)
[2023-03-14] MEDS: amLODIPine 5 MG TAB PO SCH ×2 (08:35→20:31)
[2023-03-14] MEDS: hydrALAZINE HCL 25 MG TAB PO SCH ×2 (08:35→20:31)
[2023-03-14 09:34] LABS: African American GFR (CKD) 21 (>60 ml/min/1.73 sqM); Anion Gap 12 mmol/L; Blood Urea Nitrogen 39 mg/dL (9-20); Calcium 8.4 mg/dL (8.4-10.2); Carbon Dioxide 17 mmol/L (22-30); Chloride 107 mmol/L (98-107); Glucose 76 mg/dL (74-99); Magnesium 1.9 mg/dL (1.6-2.3); Non-African American GFR(CKD) 18 (>60 ml/min/1.73 sqM); Sodium 136 mmol/L (137-145)
--- NOTE | 2023-03-14 11:20 | P.PN ---
Subjective Progress Note Date: 03/14/23 No new complaints. LHC shows significant disease with concerning iFR of LAD. Interventionalist considering PCI. Nephrology consulted for help with management of CKD IV annemarie-procedure Gen: awake, alert HEENT: normocephalic, atraumatic, good hearing acuity, moist mucous membranes Resp: good air exchange, breathing comfortably with no accessory muscle use CVS: good distal perfusion x 4, GI: soft, NTTP, ND : no SPT, no CVAT, bailey catheter not present MSK: no pitting edema, no clubbing Neuro: non-focal, moving all extremities Psych: cooperative, euthymic mood Hospital course: 72-year-old man with medical history of diabetes, hypertension, chronic kidney disease stage IV, CAD status post PCI 4, last in 2013, presented for chest pain. In the emergency room, patient was afebrile, 180/80, heart rate 68, 97% on room air. CBC demonstrates anemia to 10.8, otherwise unremarkable. Basic metabolic panel shows sodium of 134, BMI 53, creatinine 3.01, kidney function baseline. Liver function tests show low total albumin of 3.3. A1c is 7.5, glucose was 293. Coags are unremarkable. Troponin was less than 0.012 initially, then trended to 0.013. EKG shows sinus rhythm with first-degree AV block, left axis deviation, left anterior fascicular block with right bundle branch block, no signs of ischemia. Chest x-ray shows normal-sized heart, no infiltrates or opacities concerning for acute pulmonary process. Case was discussed with emergency room N decision was made to admit the patient hospital for further evaluation of chest pain. Assessment: Chest pain Hypertensive urgency History of CAD Chronic kidney disease stage IV Diabetes type 2 Hyperlipidemia Plan: CO2 16, Cr 2.8 Consult placed to nephrology for CKD IV with plan for LHC Discussed with cardiology, they are still weighing options on best approach for PCI, would like to start diuresis Jese Score for post-PCI nephropathy: 57.3% risk of EMMA with 12.6% chance of needing dialysis if 100 or more cc of contrast used; 26.1% and 1.09% if < 100cc of contrast used. CBC shows hgb of 11.3. BMP shows Cr of 3.17, BUN 39. Continue aspirin 81 mg daily, Imdur 60 mg twice a day, Crestor 40 mg at bedtime, propanolol 20 mg daily Continue heparin drip, monitor PTT for toxicity Continue zetia Nitroglycerin 0.4 mg sublingual every 5 minutes when necessary for chest pain Cardiology consultation appreciated Patient is full code Objective - Vital Signs Vital signs: Vital Signs Temp 98.2 F 03/14/23 08:00 Pulse 69 03/14/23 08:00 Resp 20 03/14/23 08:00 BP 132/51 03/14/23 08:00 Pulse Ox 95 03/14/23 08:19 FiO2 Intake & Output 03/13/23 03/14/23 03/14/23 18:59 06:59 18:59 Intake Total 744 450 Balance 744 450 Weight 110.3 kg Intake: Intake, IV Titration 150 Amount Sodium Chloride 0.9% 1, 150 000 ml @ 100 mls/hr IV . Q10H [facility] Rx#:[id number] Oral 594 450 Other: # Voids 1 - Labs CBC & Chem 7: 03/14/23 07:11 03/14/23 07:11 Labs: Abnormal Lab Results - Last 24 Hours (Table) 03/13/23 03/13/23 03/13/23 Range/Units 11:28 16:34 20:15 RBC (4.30-5.90) m/uL Hgb (13.0-17.5) gm/dL Hct (39.0-53.0) % Sodium (137-145) mmol/L Carbon Dioxide (22-30) mmol/L BUN (9-20) mg/dL Creatinine (0.66-1.25) mg/dL POC Glucose (mg/dL) 124 H 141 H 184 H (70-110) mg/dL 03/14/23 03/14/23 Range/Units 07:11 07:11 RBC 3.72 L (4.30-5.90) m/uL Hgb 11.3 L (13.0-17.5) gm/dL Hct 33.9 L (39.0-53.0) % Sodium 136 L (137-145) mmol/L Carbon Dioxide 17 L (22-30) mmol/L BUN 39 H (9-20) mg/dL Creatinine 3.17 H (0.66-1.25) mg/dL POC Glucose (mg/dL) (70-110) mg/dL
[2023-03-14 11:57] LABS: Glucose,Whole Blood 148 mg/dL (70-110)
--- NOTE | 2023-03-14 12:23 | P.PN ---
Subjective Patient is seen for follow-up for CK D. Status post cardiac catheterization on 03/11/2023 which showed significant coronary artery disease. There were plans for intervention on the LAD but currently on hold. Status post IV fluids. Patient is complaining of shortness of breath on exertion. Started on IV Lasix which is appropriate given the significant volume overload particularly of there are no plans for revascularization currently. No complaints of chest pains Serum creatinine at 3.1 today. This is patient's baseline. Previous creatinine of 2.8 was probably slightly lower due to IV hydration and volume overload Objective - Vital Signs Vital signs: Vital Signs Temp 97.9 F 03/14/23 11:21 Pulse 66 03/14/23 11:21 Resp 20 03/14/23 11:21 BP 138/68 03/14/23 11:21 Pulse Ox 96 03/14/23 11:21 FiO2 Intake & Output 03/13/23 03/14/23 03/14/23 18:59 06:59 18:59 Intake Total 744 450 Balance 744 450 Weight 110.3 kg Intake: Intake, IV Titration 150 Amount Sodium Chloride 0.9% 1, 150 000 ml @ 100 mls/hr IV . Q10H [facility] Rx#:[id number] Oral 594 450 Other: # Voids 1 - Exam Patient is awake comfortable Alert oriented 3 Examination of the heart S1 and S2 Examination of the lungs bilateral breath sounds are heard Abdomen is soft nontender Examination of lower extremities shows 2+ edema [employer]IST exam grossly intact - Labs CBC & Chem 7: 03/14/23 07:11 03/14/23 07:11 Labs: Abnormal Lab Results - Last 24 Hours (Table) 03/13/23 03/13/23 03/14/23 Range/Units 16:34 20:15 07:11 RBC 3.72 L (4.30-5.90) m/uL Hgb 11.3 L (13.0-17.5) gm/dL Hct 33.9 L (39.0-53.0) % Sodium (137-145) mmol/L Carbon Dioxide (22-30) mmol/L BUN (9-20) mg/dL Creatinine (0.66-1.25) mg/dL POC Glucose (mg/dL) 141 H 184 H (70-110) mg/dL 03/14/23 03/14/23 Range/Units 07:11 11:29 RBC (4.30-5.90) m/uL Hgb (13.0-17.5) gm/dL Hct (39.0-53.0) % Sodium 136 L (137-145) mmol/L Carbon Dioxide 17 L (22-30) mmol/L BUN 39 H (9-20) mg/dL Creatinine 3.17 H (0.66-1.25) mg/dL POC Glucose (mg/dL) 148 H (70-110) mg/dL Assessment and Plan Assessment: 1. Chronic kidney disease NKF stage IV with baseline creatinine around 3 mg/dL. Etiology is diabetic kidney disease 2. Coronary artery disease status post cardiac catheterization on 03/11/2023 with plans for further intervention on LAD. Revascularization currently on hold 3. Hypertensive urgency with improved blood pressures 4. CK D mineral bone disorder 5. Volume overload 6. Non-gap metabolic acidosis associated with chronic kidney disease Plan: Agree with diuresis. Repeat labs in a.m. Avoid hypotension
--- NOTE | 2023-03-14 13:20 | P.PN ---
Subjective Progress Note Date: 03/14/23 Patient was interviewed and examined. The patient is a pleasant 72-year-old male who presented to Hospital chest pain, and subsequently underwent cardiac catheterization 2 days ago. Today the patient states that he has no chest pain or shortness of breath. He does report getting tired and shortness of breath with exertion still. His Ranexa was increased, and subsequently he is no longer feeling any significant chest pain. We have been in discussion with interventional cardiology as to when they would like to potentially intervene on the stenosis of the left main artery. There is significant concern for the patient's current kidney function, as the procedure will be extensive, and will likely do more injury to his kidneys due to the amount of dye that will need to be used. Discussions are currently ongoing. The patient is aware of the current plan of care, and is in agreement at this ti tn VITALS: Temp 97.8, pulse 69, respirations 18, blood pressure 149/70, O2 saturation 98% on room air TELEMETRY: Normal sinus rhythm LABS: Sodium 137, potassium 4.7, B1 38, creatinine 2.84, calcium 8.1 03/14 Patient is seen today in follow-up. He denies having any chest pain. He still has a little bit of lower extremity edema. He doesn't shortness of breath with activity. Blood pressure 138/68, heart rate in 60s and 70s. Repeat blood work reveals hemoglobin 11.3, sodium 136, potassium 5, BUN 39 and creatinine 3.17. GENERAL: Well-appearing, well-nourished and in no acute distress. NECK: Supple without JVD or thyromegaly. LUNGS: Breath sounds clear to auscultation bilaterally. Respiration equal and unlabored. No wheezes, rales or rhonchi. HEART: Regular rate and rhythm without murmurs, rubs or gallops. S1 and S2 heard. EXTREMITIES: Normal range of motion, no edema. No clubbing or cyanosis. Peripheral pulses intact and strong. IMPRESSION: 1. Chest pain 2. 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 3. Chronic kidney disease 4. Mild nonischemic cardiomyopathy 5. Chronic heart failure with preserved ejection fraction, currently euvolemic 6. Hypertension 7. Hyperlipidemia 8. Diabetes 9. Neuropathy 10. Obstructive sleep apnea 11. Chronic fatigue PLAN: Encourage patient to continue to walk in the hallways. Interventional cardiology still considering stent placement.. Further recommendations based on patient's clinical course. Nurse practitioner note has been reviewed, I agree with the documented findings and plan of care. Patient was seen and examined. Objective - Vital Signs Vital signs: Vital Signs Temp 97.9 F 03/14/23 04:00 Pulse 72 03/14/23 04:00 Resp 19 03/14/23 04:00 BP 144/65 03/14/23 04:00 Pulse Ox 95 03/14/23 08:19 FiO2 Intake & Output 03/13/23 03/14/23 03/14/23 18:59 06:59 18:59 Intake Total 744 450 Balance 744 450 Weight 110.3 kg Intake: Intake, IV Titration 150 Amount Sodium Chloride 0.9% 1, 150 000 ml @ 100 mls/hr IV . Q10H JOEY Rx#:[id number] Oral 594 450 Other: # Voids 1 - Labs CBC & Chem 7: 03/14/23 07:11 03/14/23 07:11 Labs: Abnormal Lab Results - Last 24 Hours (Table) 03/13/23 03/13/23 03/13/23 Range/Units 11:28 16:34 20:15 RBC (4.30-5.90) m/uL Hgb (13.0-17.5) gm/dL Hct (39.0-53.0) % POC Glucose (mg/dL) 124 H 141 H 184 H (70-110) mg/dL 03/14/23 Range/Units 07:11 RBC 3.72 L (4.30-5.90) m/uL Hgb 11.3 L (13.0-17.5) gm/dL Hct 33.9 L (39.0-53.0) % POC Glucose (mg/dL) (70-110) mg/dL
[2023-03-14 17:02] LABS: Glucose,Whole Blood 152 mg/dL (70-110)
[2023-03-14 19:47] LABS: Glucose,Whole Blood 128 mg/dL (70-110)
[2023-03-14] MEDS: NON FORMULARY DRUG (Rosuvastatin Calcium [Crestor] 40 MG Tablet) PO SCH (20:36)
[2023-03-15 05:48] LABS: Glucose,Whole Blood 102 mg/dL (70-110)
[2023-03-15] MEDS: INSULIN ASPART (NovoLOG) 100 UNIT/ML VIAL SQ SCH ×4 (05:54→20:27)
[2023-03-15] MEDS: carvediloL 3.125 MG TAB PO SCH ×2 (06:10→16:56)
[2023-03-15] MEDS: INSULIN PUMP MEAL BOLUS 1 UNIT MISC MISCELLANE SCH ×4 (06:10→20:27)
[2023-03-15] MEDS: hydrALAZINE HCL 25 MG TAB PO SCH ×2 (09:03→20:26)
[2023-03-15] MEDS: SODIUM BICARBONATE TAB 650 MG TAB PO SCH ×2 (09:03→20:26)
[2023-03-15] MEDS: ISOSORBIDE MONONITRATE ER 60 MG TAB.ER.24H PO SCH ×2 (09:04→20:26)
[2023-03-15] MEDS: ASPIRIN 81 MG PO SCH (09:04)
[2023-03-15] MEDS: FUROSEMIDE 10 MG/ML 10 ML VIAL IV SCH ×2 (09:04→20:27)
[2023-03-15] MEDS: RANOLAZINE 500 MG TAB.ER.12H PO SCH ×2 (09:04→20:26)
[2023-03-15] MEDS: ESCITALOPRAM 10 MG TAB PO SCH (09:04)
[2023-03-15] MEDS: LORATADINE 10 MG TAB PO SCH (09:04)
[2023-03-15] MEDS: amLODIPine 5 MG TAB PO SCH ×2 (09:04→20:26)
[2023-03-15] MEDS: EZETIMIBE 10 MG TAB PO SCH (09:04)
[2023-03-15] MEDS: PROPRANOLOL 20 MG TAB PO SCH (09:04)
[2023-03-15] MEDS: SYMBICORT 80-4.5 MCG INHALER INHALATION SCH ×2 (10:28→19:34)
--- NOTE | 2023-03-15 10:29 | P.PN ---
Subjective Progress Note Date: 03/15/23 Ongoing diuresis. Pt has no complaints today. Gen: awake, alert HEENT: normocephalic, atraumatic, good hearing acuity, moist mucous membranes Resp: good air exchange, breathing comfortably with no accessory muscle use CVS: good distal perfusion x 4, GI: soft, NTTP, ND : no SPT, no CVAT, bailey catheter not present MSK: no pitting edema, no clubbing Neuro: non-focal, moving all extremities Psych: cooperative, euthymic mood Hospital course: 72-year-old man with medical history of diabetes, hypertension, chronic kidney disease stage IV, CAD status post PCI 4, last in 2013, presented for chest pa in. In the emergency room, patient was afebrile, 180/80, heart rate 68, 97% on room air. CBC demonstrates anemia to 10.8, otherwise unremarkable. Basic metabolic panel shows sodium of 134, BMI 53, creatinine 3.01, kidney function baseline. Liver function tests show low total albumin of 3.3. A1c is 7.5, glucose was 293. Coags are unremarkable. Troponin was less than 0.012 initially, then trended to 0.013. EKG shows sinus rhythm with first-degree AV block, left axis deviation, left anterior fascicular block with right bundle branch block, no signs of ischemia. Chest x-ray shows normal-sized heart, no infiltrates or opacities concerning for acute pulmonary process. Case was discussed with emergency room N decision was made to admit the patient hospital for further evaluation of chest pain. Assessment: Chest pain Hypertensive urgency History of CAD Chronic kidney disease stage IV Diabetes type 2 Hyperlipidemia Plan: No labs have returned yet this morning. Ordered BMP Ordered CBC, BMP, Mg for tomorrow Discussed with cardiology today - they would like to defer PCI in this patient given resolution of chest pain, and high risk PCI with long lesion needing multiple stents, significant contrast causing high risk of in-stent restenosis as well as high likelihood of needing dialysis post-cath. Jese Score for post-PCI nephropathy: 57.3% risk of EMMA with 12.6% chance of needing dialysis if 100 or more cc of contrast used; 26.1% and 1.09% if < 100cc of contrast used. Continue aspirin 81 mg daily, Imdur 60 mg twice a day, Crestor 40 mg at bedtime, propanolol 20 mg daily Continue zetia Continue Lasix 80mg IV daily Nitroglycerin 0.4 mg sublingual every 5 minutes when necessary for chest pain Cardiology consultation appreciated Patient is full code Objective - Vital Signs Vital signs: Vital Signs Temp 97.9 F 03/15/23 08:00 Pulse 68 03/15/23 08:00 Resp 16 03/15/23 08:00 BP 143/69 03/15/23 08:00 Pulse Ox 95 03/15/23 08:00 FiO2 Intake & Output 03/14/23 03/15/23 03/15/23 18:59 06:59 18:59 Intake Total 450 180 Output Total 1200 600 Balance -750 -600 180 Weight 110 kg Intake: Oral 450 180 Output: Urine 1200 600 Other: # Voids 2 0 # Bowel Movements 0 - Labs CBC & Chem 7: 03/14/23 07:11 03/14/23 07:11 Labs: Abnormal Lab Results - Last 24 Hours (Table) 03/14/23 03/14/23 03/14/23 Range/Units 11:29 16:49 19:46 POC Glucose (mg/dL) 148 H 152 H 128 H (70-110) mg/dL
--- NOTE | 2023-03-15 11:34 | P.PN ---
Subjective Progress Note Date: 03/15/23 Patient was interviewed and examined. The patient is a pleasant 72-year-old male who presented to Hospital chest pain, and subsequently underwent cardiac catheterization 2 days ago. Today the patient states that he has no chest pain or shortness of breath. He does report getting tired and shortness of breath with exertion still. His Ranexa was increased, and subsequently he is no longer feeling any significant chest pain. We have been in discussion with interventional cardiology as to when they would like to potentially intervene on the stenosis of the left main artery. There is significant concern for the patient's current kidney function, as the procedure will be extensive, and will likely do more injury to his kidneys due to the amount of dye that will need to be used. Discussions are currently ongoing. The patient is aware of the current plan of care, and is in agreement at this ti me VITALS: Temp 97.8, pulse 69, respirations 18, blood pressure 149/70, O2 saturation 98% on room air TELEMETRY: Normal sinus rhythm LABS: Sodium 137, potassium 4.7, B1 38, creatinine 2.84, calcium 8.1 03/14 Patient is seen today in follow-up. He denies having any chest pain. He still has a little bit of lower extremity edema. He doesn't shortness of breath with activity. Blood pressure 138/68, heart rate in 60s and 70s. Repeat blood work reveals hemoglobin 11.3, sodium 136, potassium 5, BUN 39 and creatinine 3.17. 03/15 The patient is seen today in follow-up. Patient had a negative balance of 1350 from yesterday. His weight is down 4 kg. No repeat blood work is available at the time of this dictation. Patient continues to have some lower extremity edema with plan to continue IV Lasix. No plan at this time for PCI. GENERAL: Well-appearing, well-nourished and in no acute distress. NECK: Supple without JVD or thyromegaly. LUNGS: Breath sounds clear to auscultation bilaterally. Respiration equal and unlabored. No wheezes, rales or rhonchi. HEART: Regular rate and rhythm without murmurs, rubs or gallops. S1 and S2 heard. EXTREMITIES: Normal range of motion, 2+ edema. No clubbing or cyanosis. Peripheral pulses intact and strong. IMPRESSION: 1. Chest pain 2. 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 3. Chronic kidney disease 4. Mild nonischemic cardiomyopathy 5. Chronic heart failure with preserved ejection fraction, currently euvolemic 6. Hypertension 7. Hyperlipidemia 8. Diabetes 9. Neuropathy 10. Obstructive sleep apnea 11. Chronic fatigue PLAN: Encourage patient to continue to walk in the hallways. No plan for stent placement at this time Continue IV Lasix, monitor I&O and daily weights, electrolytes and renal function, BMP ordered for tomorrow Continue other cardiac medications Further recommendations based on patient's clinical course. Nurse practitioner note has been reviewed, I agree with the documented findings and plan of care. Patient was seen and examined. Objective - Vital Signs Vital signs: Vital Signs Temp 97.8 F 03/15/23 04:00 Pulse 71 03/15/23 04:00 Resp 17 03/15/23 04:00 BP 137/66 03/15/23 04:00 Pulse Ox 94 L 03/15/23 04:00 FiO2 Intake & Output 03/14/23 03/15/23 03/15/23 18:59 06:59 18:59 Intake Total 450 Output Total 1200 600 Balance -750 -600 Weight 110 kg Intake: Oral 450 Output: Urine 1200 600 Other: # Voids 2 - Labs CBC & Chem 7: 03/14/23 07:11 03/14/23 07:11 Labs: Abnormal Lab Results - Last 24 Hours (Table) 03/14/23 03/14/23 03/14/23 Range/Units 07:11 11:29 16:49 Sodium 136 L (137-145) mmol/L Carbon Dioxide 17 L (22-30) mmol/L BUN 39 H (9-20) mg/dL Creatinine 3.17 H (0.66-1.25) mg/dL POC Glucose (mg/dL) 148 H 152 H (70-110) mg/dL 03/14/23 Range/Units 19:46 Sodium (137-145) mmol/L Carbon Dioxide (22-30) mmol/L BUN (9-20) mg/dL Creatinine (0.66-1.25) mg/dL POC Glucose (mg/dL) 128 H (70-110) mg/dL
[2023-03-15 11:52] LABS: Glucose,Whole Blood 134 mg/dL (70-110)
--- NOTE | 2023-03-15 12:42 | P.PN ---
Subjective Patient is seen for follow-up for CK D. Status post cardiac catheterization on 03/11/2023 which showed significant coronary artery disease. There were plans for intervention on the LAD but currently on hold. Status post IV fluids. Patient is complaining of shortness of breath on exertion. Started on IV Lasix for volume overload. Patient states that shortness of breath has not improved. 24 hour urine output at 1800 mL O2 sats at 91% on 2 L nasal cannula. Showering was very heart today with severe shortness of breath. Labs are pending from today Discussed renal replacement therapy with the patient and the fact that we may need to start dialysis this admission mostly for volume overload if volume status does not improve. Patient is agreeable Objective - Vital Signs Vital signs: Vital Signs Temp 97.9 F 03/15/23 08:00 Pulse 68 03/15/23 08:00 Resp 16 03/15/23 08:00 BP 143/69 03/15/23 08:00 Pulse Ox 91 L 03/15/23 10:28 FiO2 Intake & Output 03/14/23 03/15/23 03/15/23 18:59 06:59 18:59 Intake Total 450 180 Output Total 1200 600 Balance -750 -600 180 Weight 110 kg Intake: Oral 450 180 Output: Urine 1200 600 Other: # Voids 2 0 # Bowel Movements 0 - Exam Patient is awake comfortable Alert oriented 3 Examination of the heart S1 and S2 Examination of the lungs bilateral breath sounds are heard, decreased breath sounds at the bases Abdomen is soft nontender Examination of lower extremities shows 2+ edema 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 Chronic kidney disease NKF stage IV with baseline creatinine around 3 mg/dL. Etiology is diabetic kidney disease. Discussed renal replacement therapy with the patient given persistent and worsening volume overload. 2. Coronary artery disease status post cardiac catheterization on 03/11/2023 with plans for further intervention on LAD. Revascularization currently on hold 3. Hypertensive urgency with improved blood pressures 4. CK D mineral bone disorder 5. Volume overload 6. Non-gap metabolic acidosis associated with chronic kidney disease Plan: Increase Lasix to 80 mg IV every 12 hours May need to start renal replacement therapy this admission if volume status does not improve.
[2023-03-15] MEDS ORDERED: FUROSEMIDE 10 MG/ML 10 ML VIAL IV STA (12:43)
[2023-03-15 12:49] LABS: African American GFR (CKD) 20 (>60 ml/min/1.73 sqM); Anion Gap 15 mmol/L; Blood Urea Nitrogen 48 mg/dL (9-20); Calcium 8.5 mg/dL (8.4-10.2); Carbon Dioxide 13 mmol/L (22-30); Chloride 104 mmol/L (98-107); Glucose 164 mg/dL (74-99); Non-African American GFR(CKD) 17 (>60 ml/min/1.73 sqM); Potassium 5.6 mmol/L (3.5-5.1); Sodium 132 mmol/L (137-145)
[2023-03-15] MEDS: ALBUTEROL NEBULIZED 2.5 MG/3 ML INHALATION PRN (19:34)
[2023-03-15 20:07] LABS: Glucose,Whole Blood 172 mg/dL (70-110)
[2023-03-15] MEDS: NON FORMULARY DRUG (Rosuvastatin Calcium [Crestor] 40 MG Tablet) PO SCH (20:27)
[2023-03-16 06:10] LABS: Glucose,Whole Blood 118 mg/dL (70-110)
[2023-03-16] MEDS: carvediloL 3.125 MG TAB PO SCH ×2 (06:39→16:51)
[2023-03-16] MEDS: INSULIN ASPART (NovoLOG) 100 UNIT/ML VIAL SQ SCH ×4 (06:40→20:28)
[2023-03-16] MEDS: INSULIN PUMP MEAL BOLUS 1 UNIT MISC MISCELLANE SCH ×4 (06:41→20:28)
[2023-03-16] MEDS: SYMBICORT 80-4.5 MCG INHALER INHALATION SCH ×2 (09:08→21:06)
[2023-03-16] MEDS: ASPIRIN 81 MG PO SCH (09:11)
[2023-03-16] MEDS: ESCITALOPRAM 10 MG TAB PO SCH (09:11)
[2023-03-16] MEDS: SODIUM BICARBONATE TAB 650 MG TAB PO SCH ×2 (09:11→21:10)
[2023-03-16] MEDS: amLODIPine 5 MG TAB PO SCH ×2 (09:11→21:10)
[2023-03-16] MEDS: hydrALAZINE HCL 25 MG TAB PO SCH ×2 (09:11→21:10)
[2023-03-16] MEDS: LORATADINE 10 MG TAB PO SCH (09:11)
[2023-03-16] MEDS: EZETIMIBE 10 MG TAB PO SCH (09:11)
[2023-03-16] MEDS: ISOSORBIDE MONONITRATE ER 60 MG TAB.ER.24H PO SCH ×2 (09:12→21:10)
[2023-03-16] MEDS: FUROSEMIDE 10 MG/ML 10 ML VIAL IV SCH ×2 (09:12→21:10)
[2023-03-16] MEDS: RANOLAZINE 500 MG TAB.ER.12H PO SCH ×2 (09:13→21:10)
[2023-03-16] MEDS: PROPRANOLOL 20 MG TAB PO SCH (09:15)
[2023-03-16 09:29] LABS: Basophils % (A) 1 %; Eosinophils # (A) 0.1 k/uL (0-0.7); Eosinophils % (A) 1 %; HCT 31.8 % (39.0-53.0); HGB 10.7 gm/dL (13.0-17.5); Lymphocytes % (A) 19 %; MCH 30.4 pg (25.0-35.0); MCHC 33.5 g/dL (31.0-37.0); MCV 90.6 fL (80.0-100.0); Mean Platelet Volume 8.8; Monocytes # (A) 0.6 k/uL (0-1.0); Monocytes % (A) 11 %; Neutrophils # (A) 3.6 k/uL (1.3-7.7); Neutrophils % (A) 67 %; Platelet Count 193 k/uL (150-450); RBC 3.51 m/uL (4.30-5.90); RDW 13.8 % (11.5-15.5); WBC 5.4 k/uL (3.8-10.6)
[2023-03-16] MEDS ORDERED: SODIUM BICARBONATE TAB 650 MG TAB PO ONE (09:42)
[2023-03-16 10:27] LABS: African American GFR (CKD) 17 (>60 ml/min/1.73 sqM); Anion Gap 13 mmol/L; Blood Urea Nitrogen 52 mg/dL (9-20); Calcium 8.4 mg/dL (8.4-10.2); Carbon Dioxide 17 mmol/L (22-30); Chloride 102 mmol/L (98-107); Glucose 171 mg/dL (74-99); Magnesium 1.9 mg/dL (1.6-2.3); Non-African American GFR(CKD) 14 (>60 ml/min/1.73 sqM); Potassium 4.5 mmol/L (3.5-5.1); Sodium 132 mmol/L (137-145)
[2023-03-16 11:14] LABS: Glucose,Whole Blood 119 mg/dL (70-110)
--- NOTE | 2023-03-16 12:08 | P.PN ---
Subjective Progress Note Date: 03/16/23 Ongoing diuresis. Pt put out better urine today per patient. No plans for PCI at this time due to elevated risks as described below. Cr worsening. 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 Gen: awake, alert HEENT: normocephalic, atraumatic, good hearing acuity, moist mucous membranes Resp: good air exchange, breathing comfortably with no accessory muscle use CVS: good distal perfusion x 4, GI: soft, NTTP, ND : no SPT, no CVAT, bailey catheter not present MSK: no pitting edema, no clubbing Neuro: non-focal, moving all extremities Psych: cooperative, euthymic mood Hospital course: 72-year-old man with medical history of diabetes, hypertension, chronic kidney disease stage IV, CAD status post PCI 4, last in 2013, presented for chest pain. In the emergency room, patient was afebrile, 180/80, heart rate 68, 97% on room air. CBC demonstrates anemia to 10.8, otherwise unremarkable. Basic metabolic panel shows sodium of 134, BMI 53, creatinine 3.01, kidney function baseline. Liver function tests show low total albumin of 3.3. A1c is 7.5, glucose was 293. Coags are unremarkable. Troponin was less than 0.012 initially, then trended to 0.013. EKG shows sinus rhythm with first-degree AV block, left axis deviation, left anterior fascicular block with right bundle branch block, no signs of ischemia. Chest x-ray shows normal-sized heart, no infiltrates or opacities concerning for acute pulmonary process. Case was discussed with emergency room N decision was made to admit the patient hospital for further evaluation of chest pain. Assessment: Chest pain Hypertensive urgency History of CAD Chronic kidney disease stage IV Diabetes type 2 Hyperlipidemia Plan: CBC shows Hgb 10.7. Na 132, BUN 52, Cr 3.87 Jese Score for post-PCI nephropathy: 57.3% risk of EMMA with 12.6% chance of needing dialysis if 100 or more cc of contrast used; 26.1% and 1.09% if < 100cc of contrast used. Continue aspirin 81 mg daily, Imdur 60 mg twice a day, Crestor 40 mg at bedtime, propanolol 20 mg daily Continue zetia Continue Lasix 80mg IV daily Nitroglycerin 0.4 mg sublingual every 5 minutes when necessary for chest pain Cardiology consultation appreciated Patient is full code Objective - Vital Signs Vital signs: Vital Signs Temp 97.9 F 03/16/23 08:00 Pulse 78 03/16/23 08:00 Resp 19 03/16/23 08:00 BP 148/67 03/16/23 08:00 Pulse Ox 94 L 03/16/23 08:00 FiO2 Intake & Output 03/15/23 03/16/23 03/16/23 18:59 06:59 18:59 Intake Total 480 Output Total 500 680 750 Balance -20 -680 -750 Weight 109.2 kg Intake: Oral 480 Output: Urine 500 680 750 Other: # Voids 0 # Bowel Movements 0 - Labs CBC & Chem 7: 03/16/23 08:34 03/16/23 08:34 Labs: Abnormal Lab Results - Last 24 Hours (Table) 03/15/23 03/15/23 03/16/23 Range/Units 12:12 20:01 06:07 RBC (4.30-5.90) m/uL Hgb (13.0-17.5) gm/dL Hct (39.0-53.0) % Sodium 132 L (137-145) mmol/L Potassium 5.6 H (3.5-5.1) mmol/L Carbon Dioxide 13 L (22-30) mmol/L BUN 48 H (9-20) mg/dL Creatinine 3.39 H (0.66-1.25) mg/dL Glucose 164 H (74-99) mg/dL POC Glucose (mg/dL) 172 H 118 H (70-110) mg/dL 03/16/23 03/16/23 03/16/23 Range/Units 08:34 08:34 11:13 RBC 3.51 L (4.30-5.90) m/uL Hgb 10.7 L (13.0-17.5) gm/dL Hct 31.8 L (39.0-53.0) % Sodium 132 L (137-145) mmol/L Potassium (3.5-5.1) mmol/L Carbon Dioxide 17 L (22-30) mmol/L BUN 52 H (9-20) mg/dL Creatinine 3.87 H (0.66-1.25) mg/dL Glucose 171 H (74-99) mg/dL POC Glucose (mg/dL) 119 H (70-110) mg/dL
--- NOTE | 2023-03-16 13:56 | P.PN ---
Subjective Patient is seen for follow-up for CK D. Status post cardiac catheterization on 03/11/2023 which showed significant coronary artery disease. There were plans for intervention on the LAD but currently on hold. Status post IV fluids. Patient is complaining of shortness of breath on exertion. Started on IV Lasix for volume overload. Dose of Lasix was increased yesterday. This morning shortness of breath has improved, overall patient states he is feeling better. Discussed renal replacement therapy again with the patient and family. Since volume status has improved today and patient's weight is down by about 1 kg, I we will hold off on starting dialysis today and reassess tomorrow. Objective - Vital Signs Vital signs: Vital Signs Temp 97.9 F 03/16/23 12:00 Pulse 67 03/16/23 12:00 Resp 18 03/16/23 12:00 BP 122/63 03/16/23 12:00 Pulse Ox 95 03/16/23 12:00 FiO2 Intake & Output 03/15/23 03/16/23 03/16/23 18:59 06:59 18:59 Intake Total 480 Output Total 294 343 0232 Balance -20 -680 -1050 Weight 109.2 kg Intake: Oral 480 Output: Urine 920 652 6270 Other: # Voids 0 # Bowel Movements 0 - Exam Patient is awake comfortable Alert oriented 3 Examination of the heart S1 and S2 Examination of the lungs bilateral breath sounds are heard, decreased breath sounds at the bases Abdomen is soft nontender Examination of lower extremities shows 2+ edema 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 - Labs CBC & Chem 7: 03/16/23 08:34 03/16/23 08:34 Labs: Abnormal Lab Results - Last 24 Hours (Table) 03/15/23 03/16/23 03/16/23 Range/Units 20:01 06:07 08:34 RBC 3.51 L (4.30-5.90) m/uL Hgb 10.7 L (13.0-17.5) gm/dL Hct 31.8 L (39.0-53.0) % Sodium (137-145) mmol/L Carbon Dioxide (22-30) mmol/L BUN (9-20) mg/dL Creatinine (0.66-1.25) mg/dL Glucose (74-99) mg/dL POC Glucose (mg/dL) 172 H 118 H (70-110) mg/dL 03/16/23 03/16/23 Range/Units 08:34 11:13 RBC (4.30-5.90) m/uL Hgb (13.0-17.5) gm/dL Hct (39.0-53.0) % Sodium 132 L (137-145) mmol/L Carbon Dioxide 17 L (22-30) mmol/L BUN 52 H (9-20) mg/dL Creatinine 3.87 H (0.66-1.25) mg/dL Glucose 171 H (74-99) mg/dL POC Glucose (mg/dL) 119 H (70-110) mg/dL Assessment and Plan Assessment: 1. Chronic kidney disease NKF stage IV with baseline creatinine around 3 mg/dL. Etiology is diabetic kidney disease. Discussed renal replacement therapy with the patient given persistent and worsening volume overload. Volume status slightly improved. He may be able to go home this admission if he continues to feel well tomorrow. Patient and family are advised that if he is admitted again with volume overload or worsening renal function renal replacement therapy will be initiated. Discussed different modalities briefly. 2. Coronary artery disease status post cardiac catheterization on 03/11/2023 with plans for further intervention on LAD. Revascularization currently on hold 3. Hypertensive urgency with improved blood pressures 4. CK D mineral bone disorder 5. Volume overload 6. Non-gap metabolic acidosis associated with chronic kidney disease Plan: Continue with current dose of Lasix Repeat labs in a.m. Possible discharge tomorrow if volume status/shortness of breath continues to improve.
--- NOTE | 2023-03-16 14:42 | P.PN ---
Subjective Progress Note Date: 03/16/23 Patient was interviewed and examined. The patient is a pleasant 72-year-old male who presented to Hospital chest pain, and subsequently underwent cardiac catheterization 2 days ago. Today the patient states that he has no chest pain or shortness of breath. He does report getting tired and shortness of breath with exertion still. His Ranexa was increased, and subsequently he is no longer feeling any significant chest pain. We have been in discussion with interventional cardiology as to when they would like to potentially intervene on the stenosis of the left main artery. There is significant concern for the patient's current kidney function, as the procedure will be extensive, and will likely do more injury to his kidneys due to the amount of dye that will need to be used. Discussions are currently ongoing. The patient is aware of the current plan of care, and is in agreement at this ti me VITALS: Temp 97.8, pulse 69, respirations 18, blood pressure 149/70, O2 saturation 98% on room air TELEMETRY: Normal sinus rhythm LABS: Sodium 137, potassium 4.7, B1 38, creatinine 2.84, calcium 8.1 03/14 Patient is seen today in follow-up. He denies having any chest pain. He still has a little bit of lower extremity edema. He doesn't shortness of breath with activity. Blood pressure 138/68, heart rate in 60s and 70s. Repeat blood work reveals hemoglobin 11.3, sodium 136, potassium 5, BUN 39 and creatinine 3.17. 03/15 The patient is seen today in follow-up. Patient had a negative balance of 1350 from yesterday. His weight is down 4 kg. No repeat blood work is available at the time of this dictation. Patient continues to have some lower extremity edema with plan to continue IV Lasix. No plan at this time for PCI. 03/16 Patient is seen today in follow-up. He states he is feeling a lot better with his breathing but he still has lower extremity edema. He states he has been u rinating quite a bit over the past 24 hours. He denies having any chest pain. He is followed by nephrology and plan to continue to monitor and hold on starting dialysis treatments. Patient is currently on Lasix 80 mg IV every 12 hours. Fluid balance is -700. Weight is down 0.8 kg from yesterday. Potassium is 4.5, BUN 52 creatinine 3.87. GENERAL: Well-appearing, well-nourished and in no acute distress. NECK: Supple without JVD or thyromegaly. LUNGS: Breath sounds clear to auscultation bilaterally. Respiration equal and unlabored. No wheezes, rales or rhonchi. HEART: Regular rate and rhythm without murmurs, rubs or gallops. S1 and S2 heard. EXTREMITIES: Normal range of motion, 2+ edema. No clubbing or cyanosis. Peripheral pulses intact and strong. IMPRESSION: 1. Chest pain 2. 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 3. Chronic kidney disease 4. Mild nonischemic cardiomyopathy 5. Chronic heart failure with preserved ejection fraction, currently euvolemic 6. Hypertension 7. Hyperlipidemia 8. Diabetes 9. Neuropathy 10. Obstructive sleep apnea 11. Chronic fatigue PLAN: Encourage patient to continue to walk in the hallways. No plan for stent placement at this time Continue IV Lasix per nephrology, monitor I&O and daily weights, electrolytes and renal function, BMP ordered for tomorrow Continue other cardiac medications Further recommendations based on patient's clinical course. Nurse practitioner note has been reviewed, I agree with the documented findings and plan of care. Patient was seen and examined. Objective - Vital Signs Vital signs: Vital Signs Temp 97.9 F 03/16/23 08:00 Pulse 78 03/16/23 08:00 Resp 19 03/16/23 08:00 BP 148/67 03/16/23 08:00 Pulse Ox 94 L 03/16/23 08:00 FiO2 Intake & Output 03/15/23 03/16/23 03/16/23 18:59 06:59 18:59 Intake Total 480 Output Total 500 680 750 Balance -680 -750 Weight 109.2 kg Intake: Oral 480 Output: Urine 500 680 750 Other: # Voids 0 # Bowel Movements 0 - Labs CBC & Chem 7: 03/16/23 08:34 03/16/23 08:34 Labs: Abnormal Lab Results - Last 24 Hours (Table) 03/15/23 03/15/23 03/15/23 Range/Units 11:50 12:12 20:01 RBC (4.30-5.90) m/uL Hgb (13.0-17.5) gm/dL Hct (39.0-53.0) % Sodium 132 L (137-145) mmol/L Potassium 5.6 H (3.5-5.1) mmol/L Carbon Dioxide 13 L (22-30) mmol/L BUN 48 H (9-20) mg/dL Creatinine 3.39 H (0.66-1.25) mg/dL Glucose 164 H (74-99) mg/dL POC Glucose (mg/dL) 134 H 172 H (70-110) mg/dL 03/16/23 03/16/23 03/16/23 Range/Units 06:07 08:34 08:34 RBC 3.51 L (4.30-5.90) m/uL Hgb 10.7 L (13.0-17.5) gm/dL Hct 31.8 L (39.0-53.0) % Sodium 132 L (137-145) mmol/L Potassium (3.5-5.1) mmol/L Carbon Dioxide 17 L (22-30) mmol/L BUN 52 H (9-20) mg/dL Creatinine 3.87 H (0.66-1.25) mg/dL Glucose 171 H (74-99) mg/dL POC Glucose (mg/dL) 118 H (70-110) mg/dL
[2023-03-16 16:15] LABS: Glucose,Whole Blood 81 mg/dL (70-110)
[2023-03-16 19:53] LABS: Glucose,Whole Blood 134 mg/dL (70-110)
[2023-03-16] MEDS: NON FORMULARY DRUG (Rosuvastatin Calcium [Crestor] 40 MG Tablet) PO SCH (20:28)
[2023-03-17] MEDS: ALPRAZolam 0.5 MG TAB PO PRN (00:40)
[2023-03-17 05:46] LABS: Glucose,Whole Blood 88 mg/dL (70-110)
[2023-03-17] MEDS: carvediloL 3.125 MG TAB PO SCH ×2 (06:36→16:29)
[2023-03-17] MEDS: INSULIN ASPART (NovoLOG) 100 UNIT/ML VIAL SQ SCH ×4 (06:37→20:11)
[2023-03-17] MEDS: INSULIN PUMP MEAL BOLUS 1 UNIT MISC MISCELLANE SCH ×4 (06:37→20:10)
[2023-03-17] MEDS: ESCITALOPRAM 10 MG TAB PO SCH (07:59)
[2023-03-17] MEDS: ISOSORBIDE MONONITRATE ER 60 MG TAB.ER.24H PO SCH ×2 (07:59→20:52)
[2023-03-17] MEDS: SODIUM BICARBONATE TAB 650 MG TAB PO SCH ×2 (07:59→20:52)
[2023-03-17] MEDS: RANOLAZINE 500 MG TAB.ER.12H PO SCH ×2 (07:59→20:52)
[2023-03-17] MEDS: LORATADINE 10 MG TAB PO SCH (07:59)
[2023-03-17] MEDS: amLODIPine 5 MG TAB PO SCH ×2 (07:59→20:52)
[2023-03-17] MEDS: ASPIRIN 81 MG PO SCH (07:59)
[2023-03-17] MEDS: PROPRANOLOL 20 MG TAB PO SCH (07:59)
[2023-03-17] MEDS: EZETIMIBE 10 MG TAB PO SCH (07:59)
[2023-03-17] MEDS: hydrALAZINE HCL 25 MG TAB PO SCH ×2 (08:00→20:52)
[2023-03-17] MEDS: FUROSEMIDE 10 MG/ML 10 ML VIAL IV SCH (08:00)
[2023-03-17] MEDS: SYMBICORT 80-4.5 MCG INHALER INHALATION SCH ×2 (08:29→20:37)
[2023-03-17 09:33] LABS: HCT 29.7 % (39.0-53.0); HGB 10.1 gm/dL (13.0-17.5); MCH 30.8 pg (25.0-35.0); MCHC 34.1 g/dL (31.0-37.0); MCV 90.3 fL (80.0-100.0); Mean Platelet Volume 8.1; Platelet Count 181 k/uL (150-450); RBC 3.29 m/uL (4.30-5.90); RDW 13.8 % (11.5-15.5); WBC 5.9 k/uL (3.8-10.6)
[2023-03-17 09:47] LABS: African American GFR (CKD) 15 (>60 ml/min/1.73 sqM); Anion Gap 14 mmol/L; Blood Urea Nitrogen 60 mg/dL (9-20); Calcium 8.2 mg/dL (8.4-10.2); Carbon Dioxide 20 mmol/L (22-30); Chloride 100 mmol/L (98-107); Glucose 107 mg/dL (74-99); Non-African American GFR(CKD) 13 (>60 ml/min/1.73 sqM); Potassium 4.1 mmol/L (3.5-5.1); Sodium 134 mmol/L (137-145)
[2023-03-17 11:49] LABS: Glucose,Whole Blood 91 mg/dL (70-110)
--- NOTE | 2023-03-17 12:41 | P.PN ---
Subjective Patient is seen for follow-up for CK D. Status post cardiac catheterization on 03/11/2023 which showed significant coronary artery disease. There were plans for intervention on the LAD but currently on hold. Status post IV fluids. Patient is complaining of shortness of breath on exertion. Started on IV Lasix for volume overload. Shortness of breath is worse today with increased oxygen requirement. Serum creatinine increased to 4.1. Discussed renal replacement therapy again with the patient and family and we will proceed with vascular surgery consult and starting hemodialysis with plans for first treatment tomorrow. Patient and family are agreeable, all questions were answered. Objective - Vital Signs Vital signs: Vital Signs Temp 97.8 F 03/17/23 07:57 Pulse 67 03/17/23 11:21 Resp 18 03/17/23 11:21 BP 136/60 03/17/23 11:21 Pulse Ox 97 03/17/23 11:21 FiO2 Intake & Output 03/16/23 03/17/23 03/17/23 18:59 06:59 18:59 Intake Total 110 Output Total 1050 750 500 Balance -1050 -750 -390 Weight 108.9 kg Intake: Oral 110 Output: Urine 1050 750 500 - Exam Patient is awake comfortable Alert oriented 3 Examination of the heart S1 and S2 Examination of the lungs bilateral breath sounds are heard, decreased breath sounds at the bases Abdomen is soft nontender Examination of lower extremities shows 2+ edema FLOWER CUTTER exam grossly intact - Labs CBC & Chem 7: 03/17/23 09:16 03/17/23 09:16 Labs: Abnormal Lab Results - Last 24 Hours (Table) 03/16/23 03/17/23 03/17/23 Range/Units 19:47 09:16 09:16 RBC 3.29 L (4.30-5.90) m/uL Hgb 10.1 L (13.0-17.5) gm/dL Hct 29.7 L (39.0-53.0) % Sodium 134 L (137-145) mmol/L Carbon Dioxide 20 L (22-30) mmol/L BUN 60 H (9-20) mg/dL Creatinine 4.14 H (0.66-1.25) mg/dL Glucose 107 H (74-99) mg/dL POC Glucose (mg/dL) 134 H (70-110) mg/dL Calcium 8.2 L (8.4-10.2) mg/dL Assessment and Plan Assessment: 1. Chronic kidney disease NKF stage IV with baseline creatinine around 3 mg/dL. Etiology is diabetic kidney disease. Discussed renal replacement therapy with the patient given persistent and worsening volume overload. Patient and family are agreeable. We will proceed with initiation of hemodialysis. 2. Coronary artery disease status post cardiac catheterization on 03/11/2023 with plans for further intervention on LAD. Revascularization currently on hold 3. Hypertensive urgency with improved blood pressures 4. CK D mineral bone disorder 5. Volume overload 6. Non-gap metabolic acidosis associated with chronic kidney disease Plan: Increase Lasix to every 8 hours Vascular surgery consult for dialysis catheter placement and we will plan for first treatment tomorrow. Discharge planning to arrange for outpatient placement
[2023-03-17] MEDS: FUROSEMIDE 100 MG in SODIUM CHLORIDE 0.9% 90 ML IV SCH ×2 (13:03→20:00)
--- NOTE | 2023-03-17 13:19 | P.PN ---
Subjective Progress Note Date: 03/17/23 Patient was interviewed and examined. The patient is a pleasant 72-year-old male who presented to Hospital chest pain, and subsequently underwent cardiac catheterization 2 days ago. Today the patient states that he has no chest pain or shortness of breath. He does report getting tired and shortness of breath with exertion still. His Ranexa was increased, and subsequently he is no longer feeling any significant chest pain. We have been in discussion with interventional cardiology as to when they would like to potentially intervene on the stenosis of the left main artery. There is significant concern for the patient's current kidney function, as the procedure will be extensive, and will likely do more injury to his kidneys due to the amount of dye that will need to be used. Discussions are currently ongoing. The patient is aware of the current plan of care, and is in agreement at this ti me VITALS: Temp 97.8, pulse 69, respirations 18, blood pressure 149/70, O2 saturation 98% on room air TELEMETRY: Normal sinus rhythm LABS: Sodium 137, potassium 4.7, B1 38, creatinine 2.84, calcium 8.1 03/14 Patient is seen today in follow-up. He denies having any chest pain. He still has a little bit of lower extremity edema. He doesn't shortness of breath with activity. Blood pressure 138/68, heart rate in 60s and 70s. Repeat blood work reveals hemoglobin 11.3, sodium 136, potassium 5, BUN 39 and creatinine 3.17. 03/15 The patient is seen today in follow-up. Patient had a negative balance of 1350 from yesterday. His weight is down 4 kg. No repeat blood work is available at the time of this dictation. Patient continues to have some lower extremity edema with plan to continue IV Lasix. No plan at this time for PCI. 03/16 Patient is seen today in follow-up. He states he is feeling a lot better with his breathing but he still has lower extremity edema. He states he has been u rinating quite a bit over the past 24 hours. He denies having any chest pain. He is followed by nephrology and plan to continue to monitor and hold on starting dialysis treatments. Patient is currently on Lasix 80 mg IV every 12 hours. Fluid balance is -700. Weight is down 0.8 kg from yesterday. Potassium is 4.5, BUN 52 creatinine 3.87. 03/17 Patient states that he had a rough night last night with difficulty breathing which is improved by this morning. He does have dyspnea on exertion or shortness distance. He is making urine and had 500 out this morning. Patient is continued on IV Lasix managed by nephrology. He is scheduled for permacath insertion and to start dialysis. Blood pressure 136/60, heart rate in the 60s to 80s. GENERAL: Well-appearing, well-nourished and in no acute distress. NECK: Supple without JVD or thyromegaly. LUNGS: Breath sounds clear to auscultation bilaterally. Respiration equal and unlabored. No wheezes, rales or rhonchi. HEART: Regular rate and rhythm without murmurs, rubs or gallops. S1 and S2 heard. EXTREMITIES: Normal range of motion, 2+ edema. No clubbing or cyanosis. Peripheral pulses intact and strong. IMPRESSION: 1. Chest pain 2. 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 3. Chronic kidney disease 4. Mild nonischemic cardiomyopathy 5. Chronic heart failure with preserved ejection fraction, currently euvolemic 6. Hypertension 7. Hyperlipidemia 8. Diabetes 9. Neuropathy 10. Obstructive sleep apnea 11. Chronic fatigue PLAN: Encourage patient to continue to walk in the hallways. No plan for stent placement at this time Continue IV Lasix per nephrology, monitor I&O and daily weights, electrolytes and renal function, BMP ordered for tomorrow Continue other cardiac medications Further recommendations based on patient's clinical course. Nurse practitioner note has been reviewed, I agree with the documented findings and plan of care. Patient was seen and examined. Objective - Vital Signs Vital signs: Vital Signs Temp 97.8 F 03/17/23 07:57 Pulse 83 03/17/23 07:57 Resp 20 03/17/23 07:57 BP 169/73 03/17/23 07:57 Pulse Ox 96 03/17/23 07:57 FiO2 Intake & Output 03/16/23 03/17/23 03/17/23 18:59 06:59 18:59 Intake Total 110 Output Total 1050 750 500 Balance -1050 -750 -390 Weight 108.9 kg Intake: Oral 110 Output: Urine 1050 750 500 - Labs CBC & Chem 7: 03/17/23 09:16 03/17/23 09:16 Labs: Abnormal Lab Results - Last 24 Hours (Table) 03/16/23 03/16/23 03/17/23 Range/Units 11:13 19:47 09:16 RBC 3.29 L (4.30-5.90) m/uL Hgb 10.1 L (13.0-17.5) gm/dL Hct 29.7 L (39.0-53.0) % Sodium (137-145) mmol/L Carbon Dioxide (22-30) mmol/L BUN (9-20) mg/dL Creatinine (0.66-1.25) mg/dL Glucose (74-99) mg/dL POC Glucose (mg/dL) 119 H 134 H (70-110) mg/dL Calcium (8.4-10.2) mg/dL 03/17/23 Range/Units 09:16 RBC (4.30-5.90) m/uL Hgb (13.0-17.5) gm/dL Hct (39.0-53.0) % Sodium 134 L (137-145) mmol/L Carbon Dioxide 20 L (22-30) mmol/L BUN 60 H (9-20) mg/dL Creatinine 4.14 H (0.66-1.25) mg/dL Glucose 107 H (74-99) mg/dL POC Glucose (mg/dL) (70-110) mg/dL Calcium 8.2 L (8.4-10.2) mg/dL
[2023-03-17] MEDS: ALBUTEROL NEBULIZED 2.5 MG/3 ML INHALATION PRN ×2 (15:37→21:06)
[2023-03-17 16:19] LABS: Glucose,Whole Blood 122 mg/dL (70-110)
[2023-03-17] MEDS: ALPRAZolam 0.25 MG TAB PO PRN (16:33)
--- NOTE | 2023-03-17 17:02 | P.PN ---
Subjective Progress Note Date: 03/17/23 (delayed charting seen at 1400) Patient is a 72-year-old male with chronic kidney disease use, diabetes mellitus insulin requiring, coronary artery disease status post stenting, and hypert ension who presented to the hospital due to exertional dyspnea and chest pain. He was admitted actually admitted for possible acute coronary syndrome. Cardiology was consulted. He underwent cardiac catheterization which showed coronary artery disease with a 40-50% mid distal left main stenosis, 50-60% mid LAD stenosis, 100% circumflex stenosis, and 50-60% mild RCA stenosis. Cath felt be fairly similar from 2017 was some progression of the left main disease. However, high risk for conitnued contrast exposure and recommends were made for initial conservative management wtih conitnued monitoring. His renal function, nephrology was following. Patient seen and examined at bedside. seen and examined at bedside. He reports significant lower stranding edema, shortness of breath, and overall feeling of bloating. He is anxious about starting dialysis but realizes that it is time. Vital signs reviewed General: nontoxic, no distress, appears at stated age Cardiovascular: S1S2 reg, no murmur, positive posterior tibial pulse bilateral, Lungs: Rhonchi bilateral bases , no accessory muscle use Abdominal: soft, nontender to palpation, no guarding, no appreciable organomegaly Ext: no gross muscle atrophy, 3+ edema b/l lower extremities, no contractures Neuro: CN II-XI grossly intact, no focal neuro deficits Psych: Alert, oriented, appropriate affect Assessment/Plan: Coronary artery disease status post cardiac cath 03/11/23-revascularization currently on hold Acute kidney injury with chronic kidney disease stage IV Acute fluid overload, suspect secondary to renal disease Panic kidney disease mineral bone disorder Non-anion gap metabolic acidosis secondary to chronic kidney disease Hypertensive urgency with improved blood pressures -Echocardiogram from 01/21 shows ejection fraction 50-55% - Nephrology note reviewed: Vascular surgery consult plan for first hemodialysis treatment in the morning -Cardiology note reviewed: Patient to walk in the hallways, no plans for stent placement at this time -Norvasc 5 mg twice daily, Coreg 3.125 mg twice daily, hydralazine 25 mg twice daily, Crestor 40 mg at night -Aspirin 81 mg daily -Zetia 10 mg daily -Lasix infusion 10 mg/h ordered by nephrology -Imdur 60 mg twice daily, propranolol 20 mg daily, Ranexa thousand milligrams twice daily -Sodium bicarb 1300 mg twice daily Imaging: none new Data Review: Labs reviewed remarkable for hemoglobin 10.1, sodium 134, carbon dioxide 20, BUN 60, creatinine 4.14 up from 3.87 Was reviewed from 7 AM and temperature 97.8, pulse 83, respirations 20, pressure 169/73, O2 sat 96% on 4 L DVT prophylaxis: SCDs, start heparin in a.m. Anticipated discharge date: Pending clinical course Anticipated discharge place: Pending clinical course This dictation was prepared using [employer] voice recognition software. Though every attempt is made to correct errors during dictation some may still exist. Objective - Vital Signs Vital signs: Vital Signs Temp 97.8 F 03/17/23 07:57 Pulse 65 03/17/23 15:57 Resp 16 03/17/23 15:18 BP 162/71 03/17/23 15:18 Pulse Ox 94 L 03/17/23 16:33 FiO2 Intake & Output 03/16/23 03/17/23 03/17/23 18:59 06:59 18:59 Intake Total 260 Output Total 4240 386 9789 Balance -1050 -750 -740 Weight 108.9 kg Intake: Oral 260 Output: Urine 5998 539 6530 Other: # Voids 1 - Labs CBC & Chem 7: 03/17/23 09:16 03/17/23 09:16 Labs: Abnormal Lab Results - Last 24 Hours (Table) 03/16/23 03/17/23 03/17/23 Range/Units 19:47 09:16 09:16 RBC 3.29 L (4.30-5.90) m/uL Hgb 10.1 L (13.0-17.5) gm/dL Hct 29.7 L (39.0-53.0) % Sodium 134 L (137-145) mmol/L Carbon Dioxide 20 L (22-30) mmol/L BUN 60 H (9-20) mg/dL Creatinine 4.14 H (0.66-1.25) mg/dL Glucose 107 H (74-99) mg/dL POC Glucose (mg/dL) 134 H (70-110) mg/dL Calcium 8.2 L (8.4-10.2) mg/dL 03/17/23 Range/Units 16:17 RBC (4.30-5.90) m/uL Hgb (13.0-17.5) gm/dL Hct (39.0-53.0) % Sodium (137-145) mmol/L Carbon Dioxide (22-30) mmol/L BUN (9-20) mg/dL Creatinine (0.66-1.25) mg/dL Glucose (74-99) mg/dL POC Glucose (mg/dL) 122 H (70-110) mg/dL Calcium (8.4-10.2) mg/dL
[2023-03-17 19:50] LABS: Glucose,Whole Blood 145 mg/dL (70-110)
[2023-03-17] MEDS: NON FORMULARY DRUG (Rosuvastatin Calcium [Crestor] 40 MG Tablet) PO SCH (20:53)
[2023-03-17 21:42] LABS: Hepatitis B Surface AB- Quant 3.5 mIU/mL
[2023-03-17 22:40] LABS: Hepatitis B Surface Antigen Nonreactive
[2023-03-18] MEDS: ALPRAZolam 0.25 MG TAB PO PRN ×2 (01:37→21:03)
[2023-03-18 06:36] LABS: Glucose,Whole Blood 222 mg/dL (70-110)
[2023-03-18] MEDS: INSULIN PUMP MEAL BOLUS 1 UNIT MISC MISCELLANE SCH ×4 (06:56→20:57)
[2023-03-18] MEDS: INSULIN ASPART (NovoLOG) 100 UNIT/ML VIAL SQ SCH ×4 (06:57→20:58)
[2023-03-18] MEDS: carvediloL 3.125 MG TAB PO SCH ×2 (07:04→17:15)
[2023-03-18] MEDS: FUROSEMIDE 100 MG in SODIUM CHLORIDE 0.9% 90 ML IV SCH ×2 (07:04→20:59)
[2023-03-18] MEDS: SODIUM BICARBONATE TAB 650 MG TAB PO SCH ×2 (07:10→21:03)
[2023-03-18] MEDS: LORATADINE 10 MG TAB PO SCH (07:10)
[2023-03-18] MEDS: RANOLAZINE 500 MG TAB.ER.12H PO SCH ×2 (07:10→21:03)
[2023-03-18] MEDS ORDERED: LIDOCAINE 1% INJ 10MG/ML (20 ML MDV) SQ ONE (07:45)
[2023-03-18] MEDS ORDERED: SODIUM CHLORIDE 0.9% 500 ML 500 ML IV ONE (07:45)
[2023-03-18] MEDS ORDERED: MIDAZOLAM 2 MG/2 ML VIAL IVP ONE (07:46)
[2023-03-18] MEDS: SYMBICORT 80-4.5 MCG INHALER INHALATION SCH ×3 (07:50→22:46)
[2023-03-18] MEDS ORDERED: HEPARIN SODIUM 1,000 UN/ML (10ML VL) IV ONE (08:10)
--- NOTE | 2023-03-18 08:32 | CONS ---
CONSULTATION REASON FOR CONSULTATION: The patient is a 72-year-old gentleman who has acute chronic renal failure. Creatinine is 4.1. Consulted for placement of dialysis catheter. MEDICAL HISTORY: History of diabetes and hypertension. SURGICAL HISTORY: The patient had a coronary artery stent placed recently. The patient has history of shortness of breath, anxious. PHYSICAL EXAMINATION: NECK: Supple. No bruit appreciated. CHEST: Clear. First and second sounds present. ABDOMEN: Soft, nontender. VASCULAR: Femorals are 2+ bilateral. PLAN: Placement of a dialysis catheter. Risks, benefits, and complications discussed. MMODL / IJN: [id number] /
--- NOTE | 2023-03-18 08:38 | OP ---
OPERATIVE REPORT DATE OF SERVICE : PREOPERATIVE DIAGNOSIS: Acute on chronic renal failure. POSTOPERATIVE DIAGNOSIS: Acute on chronic renal failure. PROCEDURE PERFORMED: Ultrasound-guided 23 cm dialysis catheter placed under right jugular approach. DESCRIPTION OF PROCEDURE: The patient was brought to the laborer pul[facility] farm. Right side of the neck and chest was prepped, and drapes were applied in a sterile manner. 1% lidocaine was infiltrated in the neck area and chest area. Ultrasound-guided micropuncture introduced to the right jugular vein. Micropuncture guidewire was passed, and 4-Moldovan dilator advanced on top of the guidewire. Then, we created a tunnel, and through the tunnel, we brought 23 cm dialysis catheter. Dilator was advanced through the sheath. Then, we passed a regular guidewire which was parked in the inferior vena cava. Dilator was advanced and sheath was advanced on top of the guidewire. Through the sheath, we introduced dialysis catheter. Sheath was removed. Tip of the catheter in superior vena cava and atrial junction, flushed with heparinized saline and hep-locked, secured with 3-0 nylon. The patient tolerated the procedure well. PLAN: X-ray of the chest. MMODL / IJN: [id number] /
--- NOTE | 2023-03-18 08:39 | IR ---
EXAMINATION TYPE: IR cvc insert central tunneled DATE OF EXAM: 03/18/2023 COMPARISON: NONE HISTORY: Fluoroscopy time. Fluoroscopy was provided to the referring clinician.
--- NOTE | 2023-03-18 09:16 | XR ---
EXAMINATION TYPE: XR chest 1V confirm line [facility] DATE OF EXAM: 03/18/2023 COMPARISON: 03/09/2023 HISTORY: Hemodialysis catheter TECHNIQUE: Single frontal view of the chest is obtained. FINDINGS: A dialysis catheter seen with the tip overlying the SVC. No pneumothorax. Diffuse interstitial pattern. Mildly prominent. No sizable pleural effusion or pneumothorax. Osseous structures are stable. IMPRESSION: 1. Diffuse interstitial pattern correlate for CHF. 2. Dialysis catheter seen with tip overlying the SVC and no pneumothorax.
[2023-03-18 10:22] LABS: HCT 29.2 % (39.0-53.0); HGB 9.5 gm/dL (13.0-17.5); Hypochromasia Slight; MCH 30.6 pg (25.0-35.0); MCHC 32.5 g/dL (31.0-37.0); MCV 94.1 fL (80.0-100.0); Mean Platelet Volume 8.9; Platelet Count 231 k/uL (150-450); RBC 3.11 m/uL (4.30-5.90); RDW 13.8 % (11.5-15.5); WBC 7.3 k/uL (3.8-10.6)
[2023-03-18 10:34] LABS: African American GFR (CKD) 13 (>60 ml/min/1.73 sqM); Anion Gap 21 mmol/L; Blood Urea Nitrogen 78 mg/dL (9-20); Carbon Dioxide 14 mmol/L (22-30); Chloride 97 mmol/L (98-107); Glucose 263 mg/dL (74-99); Non-African American GFR(CKD) 11 (>60 ml/min/1.73 sqM); Potassium 4.8 mmol/L (3.5-5.1); Sodium 132 mmol/L (137-145)
[2023-03-18 11:17] LABS: Glucose,Whole Blood 192 mg/dL (70-110)
[2023-03-18] MEDS: hydrALAZINE HCL 25 MG TAB PO SCH ×2 (12:01→21:03)
[2023-03-18] MEDS: amLODIPine 5 MG TAB PO SCH ×2 (12:01→21:03)
[2023-03-18] MEDS: ISOSORBIDE MONONITRATE ER 60 MG TAB.ER.24H PO SCH ×2 (12:02→21:03)
[2023-03-18] MEDS: EZETIMIBE 10 MG TAB PO SCH (12:13)
[2023-03-18] MEDS: ESCITALOPRAM 10 MG TAB PO SCH (12:13)
[2023-03-18] MEDS: PROPRANOLOL 20 MG TAB PO SCH (12:13)
[2023-03-18] MEDS: ASPIRIN 81 MG PO SCH (12:13)
--- NOTE | 2023-03-18 12:40 | P.PN ---
Subjective Progress Note Date: 03/18/23 Patient was interviewed and examined. The patient is a pleasant 72-year-old male who presented to Hospital chest pain, and subsequently underwent cardiac catheterization 2 days ago. Today the patient states that he has no chest pain or shortness of breath. He does report getting tired and shortness of breath with exertion still. His Ranexa was increased, and subsequently he is no longer feeling any significant chest pain. We have been in discussion with interventional cardiology as to when they would like to potentially intervene on the stenosis of the left main artery. There is significant concern for the patient's current kidney function, as the procedure will be extensive, and will likely do more injury to his kidneys due to the amount of dye that will need to be used. Discussions are currently ongoing. The patient is aware of the current plan of care, and is in agreement at this ti me VITALS: Temp 97.8, pulse 69, respirations 18, blood pressure 149/70, O2 saturation 98% on room air TELEMETRY: Normal sinus rhythm LABS: Sodium 137, potassium 4.7, B1 38, creatinine 2.84, calcium 8.1 03/14 Patient is seen today in follow-up. He denies having any chest pain. He still has a little bit of lower extremity edema. He doesn't shortness of breath with activity. Blood pressure 138/68, heart rate in 60s and 70s. Repeat blood work reveals hemoglobin 11.3, sodium 136, potassium 5, BUN 39 and creatinine 3.17. 03/15 The patient is seen today in follow-up. Patient had a negative balance of 1350 from yesterday. His weight is down 4 kg. No repeat blood work is available at the time of this dictation. Patient continues to have some lower extremity edema with plan to continue IV Lasix. No plan at this time for PCI. 03/16 Patient is seen today in follow-up. He states he is feeling a lot better with his breathing but he still has lower extremity edema. He states he has been u rinating quite a bit over the past 24 hours. He denies having any chest pain. He is followed by nephrology and plan to continue to monitor and hold on starting dialysis treatments. Patient is currently on Lasix 80 mg IV every 12 hours. Fluid balance is -700. Weight is down 0.8 kg from yesterday. Potassium is 4.5, BUN 52 creatinine 3.87. 03/17 Patient states that he had a rough night last night with difficulty breathing which is improved by this morning. He does have dyspnea on exertion or shortness distance. He is making urine and had 500 out this morning. Patient is continued on IV Lasix managed by nephrology. He is scheduled for permacath insertion and to start dialysis. Blood pressure 136/60, heart rate in the 60s to 80s. 03/18 Patient is having his first dialysis treatment today. He continues to have some volume overload and has been maintained on IV Lasix change this morning to Lasix drip by nephrology. Blood pressure weekly , heart rate in the 70s, po 94% on 5 L nasal cannula. Repeat blood work reveals BUN 78 creatinine 4.79, potassium 4.8, sodium 132, hemoglobin 9.5. GENERAL: Well-appearing, well-nourished and in no acute distress. NECK: Supple without JVD or thyromegaly. LUNGS: Diminished breath sounds bilaterally. No wheezes. HEART: Regular rate and rhythm without murmurs, rubs or gallops. S1 and S2 heard. EXTREMITIES: Normal range of motion, 2+ edema. No clubbing or cyanosis. Peripheral pulses intact and strong. IMPRESSION: 1. Chest pain 2. Coronary artery disease with prior [employer] circumflex with collaterals; cardiac cath demonstrates 40-50% stenosis in the mid to distal left main, 50-60% stenosis in the mid LAD, 100% stenosis in the circumflex, and 50-60% stenosis in the mid RCA. 3. Acute kidney injury and Chronic kidney disease, started dialysis 03/18 4. Mild nonischemic cardiomyopathy 5. Chronic heart failure with preserved ejection fraction, currently euvolemic 6. Hypertension 7. Hyperlipidemia 8. Diabetes 9. Neuropathy 10. Obstructive sleep apnea 11. Chronic fatigue PLAN: No plan for stent placement at this time Continue IV Lasix per nephrology, monitor I&O and daily weights, electrolytes and renal function, BMP ordered for tomorrow Continue other cardiac medications Further recommendations based on patient's clinical course. Nurse practitioner note has been reviewed, I agree with the documented findings and plan of care. Patient was seen and examined. Objective - Vital Signs Vital signs: Vital Signs Temp 97.7 F 03/18/23 08:35 Pulse 78 03/18/23 04:00 Resp 19 03/18/23 08:35 BP 122/65 03/18/23 08:35 Pulse Ox 91 L 03/18/23 08:35 FiO2 Intake & Output 03/17/23 03/18/23 03/18/23 18:59 06:59 18:59 Intake Total 500 169.5 280 Output Total 1000 775 Balance -500 -605.5 280 Intake: IV 100 Intake, IV Titration 169.5 Amount Furosemide 100 mg In 169.5 Sodium Chloride 0.9% 90 ml @ 10 MG/HR 10 mls/hr IV .Q10H [facility] Rx#: [id number] Oral 500 180 Output: Urine 1000 775 Uretheral ([place]) 775 Other: # Voids 1 0 - Labs CBC & Chem 7: 03/18/23 09:25 03/18/23 09:25 Labs: Abnormal Lab Results - Last 24 Hours (Table) 03/17/23 03/17/23 03/17/23 Range/Units 09:16 09:16 16:17 RBC 3.29 L (4.30-5.90) m/uL Hgb 10.1 L (13.0-17.5) gm/dL Hct 29.7 L (39.0-53.0) % Sodium 134 L (137-145) mmol/L Carbon Dioxide 20 L (22-30) mmol/L BUN 60 H (9-20) mg/dL Creatinine 4.14 H (0.66-1.25) mg/dL Glucose 107 H (74-99) mg/dL POC Glucose (mg/dL) 122 H (70-110) mg/dL Calcium 8.2 L (8.4-10.2) mg/dL 03/17/23 03/18/23 Range/Units 19:44 06:34 RBC (4.30-5.90) m/uL Hgb (13.0-17.5) gm/dL Hct (39.0-53.0) % Sodium (137-145) mmol/L Carbon Dioxide (22-30) mmol/L BUN (9-20) mg/dL Creatinine (0.66-1.25) mg/dL Glucose (74-99) mg/dL POC Glucose (mg/dL) 145 H 222 H (70-110) mg/dL Calcium (8.4-10.2) mg/dL
--- NOTE | 2023-03-18 15:18 | P.PN ---
Subjective Progress Note Date: 03/18/23 (delayed charting seen at 1100) Patient is a 72-year-old male with chronic kidney disease use, diabetes mellitus insulin requiring, coronary artery disease status post stenting, and hypert ension who presented to the hospital due to exertional dyspnea and chest pain. He was admitted actually admitted for possible acute coronary syndrome. Cardiology was consulted. He underwent cardiac catheterization which showed coronary artery disease with a 40-50% mid distal left main stenosis, 50-60% mid LAD stenosis, 100% circumflex stenosis, and 50-60% mild RCA stenosis. Cath felt be fairly similar from 2017 was some progression of the left main disease. However, high risk for conitnued contrast exposure and recommends were made for initial conservative management wtih conitnued monitoring. His renal function, nephrology was following. Patient seen and examined at bedside. He is feeling pretty tired after having his hemodialysis catheter placed. He denies any pain currently. Multiple family members at bedside and updated all questions answered. Vital signs reviewed General: nontoxic, no distress, appears at stated age Cardiovascular: S1S2 reg, no murmur, positive posterior tibial pulse bilateral, Lungs: Rhonchi bilateral bases , no accessory muscle use Abdominal: soft, nontender to palpation, no guarding, no appreciable organomegaly Ext: no gross muscle atrophy, 3+ edema b/l lower extremities, no contractures Neuro: CN II-XI grossly intact, no focal neuro deficits Psych: Alert, oriented, appropriate affect Assessment/Plan: Coronary artery disease status post cardiac cath 03/11/23- Acute kidney injury with chronic kidney disease stage IV Acute fluid overload, suspect secondary to renal disease 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 Cadena. Dialysis will be permanent, not likely for any significant renal recovery given his pre-existing stage IV chronic kidney disease. -Case discussed with cardiology nurse practitioner, she is made aware that Dr. Cadena has that it is okay for repeat exposure to contrast dye. However with patient no longer having chest pain they recommned to continue to maximize medical therapy at this time. -Norvasc 5 mg twice daily, Coreg 3.125 mg twice daily, hydralazine 25 mg twice daily, Crestor 40 mg at night -Aspirin 81 mg daily -Zetia 10 mg daily -Lasix infusion 10 mg/h ordered by nephrology -Imdur 60 mg twice daily, propranolol 20 mg daily, Ranexa thousand milligrams twice daily -Sodium bicarb 1300 mg twice daily Diabetes mellitus type 2 -Patient has insulin pump in place and have them processing appropriately with meals -Continue to follow blood sugars Imaging: Chest x-ray: Diffuse interstitial pattern consistent with volume overload, dialysis catheter with tip overlying the SVC and no pneumothorax Data Review: Labs reviewed and remarkable for hemoglobin 9.5 (down from 10.1 yesterday), carbon dioxide 14, anion gap 21, BUN 78, creatinine 4.79 Vitals reviewed from this morning temperature 97.7, pulse 78, respirations 18, blood pressure 122/65, O2 sat 91% on 4 L, and fasting blood sugar DVT prophylaxis: Heparin Anticipated discharge date: Pending clinical course Anticipated discharge place: Pending clinical course This dictation was prepared using [employer] voice recognition software. Though every attempt is made to correct errors during dictation some may still exist. Objective - Vital Signs Vital signs: Vital Signs Temp 97.7 F 03/18/23 08:35 Pulse 72 03/18/23 11:39 Resp 19 03/18/23 11:39 BP 126/66 03/18/23 11:39 Pulse Ox 94 L 03/18/23 11:39 FiO2 Intake & Output 03/17/23 03/18/23 03/18/23 18:59 06:59 18:59 Intake Total 500 169.5 280 Output Total 1000 775 Balance -500 -605.5 280 Intake: IV 100 Intake, IV Titration 169.5 Amount Furosemide 100 mg In 169.5 Sodium Chloride 0.9% 90 ml @ 10 MG/HR 10 mls/hr IV .Q10H [facility] Rx#: [id number] Oral 500 180 Output: Urine 1000 775 Uretheral ([place]) 775 Other: # Voids 1 0 - Labs CBC & Chem 7: 03/18/23 09:25 03/18/23 09:25 Labs: Abnormal Lab Results - Last 24 Hours (Table) 03/17/23 03/17/23 03/18/23 Range/Units 16:17 19:44 06:34 RBC (4.30-5.90) m/uL Hgb (13.0-17.5) gm/dL Hct (39.0-53.0) % Sodium (137-145) mmol/L Chloride (98-107) mmol/L Carbon Dioxide (22-30) mmol/L BUN (9-20) mg/dL Creatinine (0.66-1.25) mg/dL Glucose (74-99) mg/dL POC Glucose (mg/dL) 122 H 145 H 222 H (70-110) mg/dL Calcium (8.4-10.2) mg/dL 03/18/23 03/18/23 03/18/23 Range/Units 09:25 09:25 11:14 RBC 3.11 L (4.30-5.90) m/uL Hgb 9.5 L (13.0-17.5) gm/dL Hct 29.2 L (39.0-53.0) % Sodium 132 L (137-145) mmol/L Chloride 97 L (98-107) mmol/L Carbon Dioxide 14 L (22-30) mmol/L BUN 78 H (9-20) mg/dL Creatinine 4.79 H (0.66-1.25) mg/dL Glucose 263 H (74-99) mg/dL POC Glucose (mg/dL) 192 H (70-110) mg/dL Calcium 8.0 L (8.4-10.2) mg/dL
[2023-03-18 16:06] LABS: Glucose,Whole Blood 249 mg/dL (70-110)
[2023-03-18 20:25] LABS: Glucose,Whole Blood 326 mg/dL (70-110)
[2023-03-18] MEDS: NON FORMULARY DRUG (Rosuvastatin Calcium [Crestor] 40 MG Tablet) PO SCH (20:59)
[2023-03-18] MEDS: ALBUTEROL NEBULIZED 2.5 MG/3 ML INHALATION PRN (22:32)
[2023-03-19] MEDS: FUROSEMIDE 100 MG in SODIUM CHLORIDE 0.9% 90 ML IV SCH (00:34)
--- NOTE | 2023-03-19 00:41 | P.PN ---
Subjective Patient is seen for follow-up for CK D. Status post cardiac catheterization on 03/11/2023 which showed significant coronary artery disease. There were plans for intervention on the LAD but currently on hold. Status post IV fluids. Patient is being diuresed now for volume overload. Shortness of breath has worsened with increased oxygen requirement. Serum creatinine increased to 4.1 yesterday and renal replacement therapy has been initiated. Receiving first treatment today. Objective - Vital Signs Vital signs: Vital Signs Temp 97 F L 03/18/23 16:56 Pulse 73 03/18/23 23:58 Resp 22 03/18/23 23:58 BP 134/65 03/18/23 23:58 Pulse Ox 95 03/18/23 23:58 FiO2 Intake & Output 03/18/23 03/18/23 03/19/23 06:59 18:59 06:59 Intake Total 169.5 880 Output Total 775 2750 Balance -605.5 -1870 Intake: IV 100 Intake, IV Titration 169.5 100 Amount Furosemide 100 mg In 169.5 100 Sodium Chloride 0.9% 90 ml @ 10 MG/HR 10 mls/hr IV .Q10H [facility] Rx#: [id number] Oral 180 Hemodialysis 500 Output: Urine 775 250 Uretheral ([facility]) 775 Hemodialysis 2500 Other: # Voids 0 - Exam Patient is awake comfortable Alert oriented 3 Examination of the heart S1 and S2 Examination of the lungs bilateral breath sounds are heard, decreased breath sounds at the bases Abdomen is soft nontender Examination of lower extremities shows 2+ edema [employer] exam grossly intact - Labs CBC & Chem 7: 03/18/23 09:25 03/18/23 09:25 Labs: Abnormal Lab Results - Last 24 Hours (Table) 03/18/23 03/18/23 03/18/23 Range/Units 06:34 09:25 09:25 RBC 3.11 L (4.30-5.90) m/uL Hgb 9.5 L (13.0-17.5) gm/dL Hct 29.2 L (39.0-53.0) % Sodium 132 L (137-145) mmol/L Chloride 97 L (98-107) mmol/L Carbon Dioxide 14 L (22-30) mmol/L BUN 78 H (9-20) mg/dL Creatinine 4.79 H (0.66-1.25) mg/dL Glucose 263 H (74-99) mg/dL POC Glucose (mg/dL) 222 H (70-110) mg/dL Calcium 8.0 L (8.4-10.2) mg/dL 03/18/23 03/18/23 03/18/23 Range/Units 11:14 16:04 20:24 RBC (4.30-5.90) m/uL Hgb (13.0-17.5) gm/dL Hct (39.0-53.0) % Sodium (137-145) mmol/L Chloride (98-107) mmol/L Carbon Dioxide (22-30) mmol/L BUN (9-20) mg/dL Creatinine (0.66-1.25) mg/dL Glucose (74-99) mg/dL POC Glucose (mg/dL) 192 H 249 H 326 H (70-110) mg/dL Calcium (8.4-10.2) mg/dL Assessment and Plan Assessment: 1. Chronic kidney disease NKF stage IV with baseline creatinine around 3 mg/dL. Etiology is diabetic kidney disease. Started renal replacement therapy today due to worsening volume overload. 2. Coronary artery disease status post cardiac catheterization on 03/11/2023 with plans for possible further intervention on LAD, currently on hold. 3. Hypertensive urgency with improved blood pressures 4. CK D mineral bone disorder 5. Volume overload 6. Non-gap metabolic acidosis associated with chronic kidney disease Plan: Continue lasix drip Repeat HD in am with goal UF about 3-3.5 L May need a trreatment on tuesday too.
--- NOTE | 2023-03-19 00:43 | XR ---
EXAMINATION TYPE: XR chest 1V portable DATE OF EXAM: 03/19/2023 12:30 AM COMPARISON: Chest radiographs from 03/18/2023 TECHNIQUE: XR chest 1V portable Frontal view of the chest. CLINICAL INDICATION:Male, 72 years old with history of hypoxia, sob; FINDINGS: Lungs/Pleura: There is no evidence of pleural effusion, focal consolidation, or pneumothorax. Pulmonary vascularity: Pulmonary vascular congestion. Heart/mediastinum: Cardiomediastinal silhouette is unremarkable. Musculoskeletal: No acute osseous pathology. Other findings: None Lines/Tubes: Right internal jugular central venous catheter with distal tip at the cavoatrial junction. IMPRESSION: Improved pulmonary vascular congestion.
[2023-03-19 01:27] LABS: ABG Base Excess 0.5 mmol/L; ABG HCO3 25 mmol/L (21-25); ABG Oxygen Saturation 92.6 % (94-97); ABG PCO2 39 mmHg (35-45); ABG PH 7.41 (7.35-7.45); ABG PO2 65 mmHg (83-108); ABG TCO2 26 mmol/L (19-24); Allen Test Performed? Yes
--- NOTE | 2023-03-19 02:35 | P.PN ---
Progress Note - Text Progress Note Date: 03/19/23 Notified by the RN regarding the patient's increase in oxygen requirements from 6 L NC to high flow 15 L with SpO2 96%. The patient was seen at the bedside. He was resting comfortably and reported feeling okay. Denied chest discomfort or shortness of breath. Denied nausea, vomiting, palpitations. The patient has had minimal urine output with Lasix infusion at 10 mg/hr. Chart was reviewed. The patient was started on dialysis for chronic kidney disease and underwent removal of 2 L yesterday with plans for hemodialysis session today. Chest x-ray obtained showing improved aeration. ABG reviewed with hypoxia without hypercapnia. General: Non-toxic, in no acute distress, appears stated age, obese HEENT: NC/AT, anicteric sclerae, moist conjunctiva, no lid-lag, PERRLA Cardiovascular: S1/S2 wnl, no murmurs, rubs, or gallops Lungs: Diffuse rales noted with some expiratory wheezing, normal respiratory effort, no accessory muscle use Abdominal: Soft, non-tender, non-distended, no guarding, rebound, or rigidity Skin: Warm, dry Extremities: No edema or contractures Psychiatric: Alert and oriented to person, place and time, appropriate affect Neuro: CN II-XII grossly intact, Strength 5/5 in all 4 extremities, Speech intact, Sensation to light touch grossly intact throughout Assessment/plan Hypoxic respiratory failure, suspect due to fluid overload -Continue with Lasix infusion -Patient scheduled for another dialysis session later today -May need emergent dialysis if hypoxia worsens
[2023-03-19] MEDS: INSULIN ASPART (NovoLOG) 100 UNIT/ML VIAL SQ SCH ×2 (06:17→14:16)
[2023-03-19] MEDS: INSULIN PUMP MEAL BOLUS 1 UNIT MISC MISCELLANE SCH ×4 (06:17→20:28)
[2023-03-19 06:19] LABS: Glucose,Whole Blood 203 mg/dL (70-110)
[2023-03-19] MEDS: carvediloL 3.125 MG TAB PO SCH ×2 (06:26→17:57)
--- NOTE | 2023-03-19 07:56 | P.PN ---
Subjective Progress Note Date: 03/19/23 Principal diagnosis: Heart failure This is a 72-year-old gentleman with a past medical history significant for CABG and known chronic total occlusion and severe disease in the LAD as well as preserved LV systolic function and also heart failure with preserved ejection fraction as well as diabetes and hypertension and dyslipidemia and chronic kidney disease was admitted to the hospital with shortness of breath and he was diagnosed with heart failure. He underwent an echo which revealed preserved LV systolic function. He was found to be in the stage renal disease did not r esponse to diuretics and he underwent dialysis yesterday March 192022 The patient was evaluated this morning. He continues to be short of breath and requiring high flow oxygen. The chest x-ray showed pulmonary vascular congestions. No evidence of pneumonia on the x-ray. The lower extremity edema has improved. He underwent dialysis yesterday and he is going to have dialysis today. With yesterday dialysis 2 L of fluid were taken out. He is not on any diuretics because he is not responding well to IV diuretics. Assessment CAD as described above and appeared to be stable Heart failure with preserved ejection fraction End stage renal disease is to started on dialysis Hypoxic respiratory failure related to heart failure. Rule out pneumonia Multiple comorbid conditions including diabetes and hypertension and dyslipidemia Plan Continue the current medical regimen The patient is in process of having dialysis today as well Continue monitor the electrolytes Obtain NT proBNP Follow-up with the patient Objective - Vital Signs Vital signs: Vital Signs Temp 97 F L 03/18/23 16:56 Pulse 71 03/19/23 04:00 Resp 18 03/19/23 04:00 BP 131/63 03/19/23 04:00 Pulse Ox 97 03/19/23 04:00 FiO2 Intake & Output 03/18/23 03/19/23 03/19/23 18:59 06:59 18:59 Intake Total 880 Output Total 2750 200 Balance -1870 -200 Weight 112.5 kg Intake: IV 100 Intake, IV Titration 100 Amount Furosemide 100 mg In 100 Sodium Chloride 0.9% 90 ml @ 10 MG/HR 10 mls/hr IV .Q10H [facility] Rx#: [id number] Oral 180 Hemodialysis 500 Output: Urine 250 200 Hemodialysis 2500 - Labs CBC & Chem 7: 03/18/23 09:25 03/18/23 09:25 Labs: Abnormal Lab Results - Last 24 Hours (Table) 03/18/23 03/18/23 03/18/23 Range/Units 09:25 09:25 11:14 RBC 3.11 L (4.30-5.90) m/uL Hgb 9.5 L (13.0-17.5) gm/dL Hct 29.2 L (39.0-53.0) % ABG pO2 (83-108) mmHg ABG Total CO2 (19-24) mmol/L ABG O2 Saturation (94-97) % Sodium 132 L (137-145) mmol/L Chloride 97 L (98-107) mmol/L Carbon Dioxide 14 L (22-30) mmol/L BUN 78 H (9-20) mg/dL Creatinine 4.79 H (0.66-1.25) mg/dL Glucose 263 H (74-99) mg/dL POC Glucose (mg/dL) 192 H (70-110) mg/dL Calcium 8.0 L (8.4-10.2) mg/dL 03/18/23 03/18/23 03/19/23 Range/Units 16:04 20:24 01:23 RBC (4.30-5.90) m/uL Hgb (13.0-17.5) gm/dL Hct (39.0-53.0) % ABG pO2 65 L (83-108) mmHg ABG Total CO2 26 H (19-24) mmol/L ABG O2 Saturation 92.6 L (94-97) % Sodium (137-145) mmol/L Chloride (98-107) mmol/L Carbon Dioxide (22-30) mmol/L BUN (9-20) mg/dL Creatinine (0.66-1.25) mg/dL Glucose (74-99) mg/dL POC Glucose (mg/dL) 249 H 326 H (70-110) mg/dL Calcium (8.4-10.2) mg/dL 03/19/23 Range/Units 06:17 RBC (4.30-5.90) m/uL Hgb (13.0-17.5) gm/dL Hct (39.0-53.0) % ABG pO2 (83-108) mmHg ABG Total CO2 (19-24) mmol/L ABG O2 Saturation (94-97) % Sodium (137-145) mmol/L Chloride (98-107) mmol/L Carbon Dioxide (22-30) mmol/L BUN (9-20) mg/dL Creatinine (0.66-1.25) mg/dL Glucose (74-99) mg/dL POC Glucose (mg/dL) 203 H (70-110) mg/dL Calcium (8.4-10.2) mg/dL
[2023-03-19] MEDS: SYMBICORT 80-4.5 MCG INHALER INHALATION SCH ×2 (07:58→20:10)
[2023-03-19] MEDS: ALBUTEROL NEBULIZED 2.5 MG/3 ML INHALATION PRN ×2 (07:58→20:10)
[2023-03-19] MEDS: SODIUM BICARBONATE TAB 650 MG TAB PO SCH ×2 (08:15→20:33)
[2023-03-19] MEDS: ESCITALOPRAM 10 MG TAB PO SCH (08:15)
[2023-03-19] MEDS: RANOLAZINE 500 MG TAB.ER.12H PO SCH ×2 (08:15→20:34)
[2023-03-19] MEDS: EZETIMIBE 10 MG TAB PO SCH (08:15)
[2023-03-19] MEDS: LORATADINE 10 MG TAB PO SCH (08:15)
[2023-03-19] MEDS: ASPIRIN 81 MG PO SCH (08:15)
[2023-03-19] MEDS ORDERED: HEPARIN SODIUM,PORCINE 5,000 UNIT/ML 1 ML VIAL SQ SCH (09:00)
[2023-03-19] MEDS ORDERED: HEPARIN SODIUM 1,000 UN/ML (10ML VL) IV PRN (11:27)
[2023-03-19] MEDS ORDERED: HEPARIN SOD,PORK IN 0.45% NACL 25,000 UNIT in 0.45% NACL 1 250ML.BAG IV SCH (11:30)
[2023-03-19 11:35] LABS: Glucose,Whole Blood 139 mg/dL (70-110)
--- NOTE | 2023-03-19 11:36 | US ---
EXAMINATION TYPE: US venous doppler duplex LE BI DATE OF EXAM: 03/19/2023 10:05 AM COMPARISON: 10/16/2021 CLINICAL INDICATION: Male, 72 years old with history of swelling; edema SIDE PERFORMED: Bilateral TECHNIQUE: The lower extremity deep venous system is examined utilizing real time linear array sonog evert with graded compression, doppler sonography and color-flow sonography. VESSELS IMAGED: Common Femoral Vein Deep Femoral Vein Greater Saphenous Vein * Femoral Vein Popliteal Vein Small Saphenous Vein * Proximal Calf Veins (* superficial vessels) Grayscale, color doppler, spectral doppler imaging performed of the deep veins of the lower extremiti es. There is normal flow, compressibility, vascular waveforms. Right Leg: Negative for DVT Left Leg: Negative for DVT IMPRESSION: No deep venous thrombosis of the bilateral lower extremities.
--- NOTE | 2023-03-19 12:01 | P.PN ---
Subjective Patient is seen in follow-up for acute kidney injury on chronic kidney disease. Started on hemodialysis 03/18/2023. Currently on high flow nasal cannula. Wash short of breath overnight but better now. Tolerating dialysis well with goal 3 L ultrafiltration. Hemodynamically stable. Vital signs are stable. General: No acute distress. HEENT: Head exam is unremarkable. LUNGS: Scattered rhonchi. HEART: Rate and Rhythm are regular. ABDOMEN: Nontender. EXTREMITITES: 1+ edema. Objective - Vital Signs Vital signs: Vital Signs Temp 98.2 F 03/19/23 08:00 Pulse 78 03/19/23 08:15 Resp 20 03/19/23 08:00 BP 131/61 03/19/23 08:00 Pulse Ox 94 L 03/19/23 08:00 FiO2 Intake & Output 03/18/23 03/19/23 03/19/23 18:59 06:59 18:59 Intake Total 880 Output Total 2750 200 Balance -1870 -200 Weight 112.5 kg Intake: IV 100 Intake, IV Titration 100 Amount Furosemide 100 mg In 100 Sodium Chloride 0.9% 90 ml @ 10 MG/HR 10 mls/hr IV .Q10H [facility] Rx#: [id number] Oral 180 Hemodialysis 500 Output: Urine 250 200 Hemodialysis 2500 - Labs CBC & Chem 7: 03/18/23 09:25 03/18/23 09:25 Labs: Abnormal Lab Results - Last 24 Hours (Table) 03/18/23 03/18/23 03/19/23 Range/Units 16:04 20:24 01:23 ABG pO2 65 L (83-108) mmHg ABG Total CO2 26 H (19-24) mmol/L ABG O2 Saturation 92.6 L (94-97) % POC Glucose (mg/dL) 249 H 326 H (70-110) mg/dL 03/19/23 03/19/23 Range/Units 06:17 11:33 ABG pO2 (83-108) mmHg ABG Total CO2 (19-24) mmol/L ABG O2 Saturation (94-97) % POC Glucose (mg/dL) 203 H 139 H (70-110) mg/dL Assessment and Plan Plan: Assessment: 1. Acute kidney injury secondary to ATN secondary to cardiorenal syndrome and further worsened with the use of IV contrast. Started on hemodialysis 03/18/2023. 2. Chronic kidney disease stage IV with baseline creatinine near 3 secondary to diabetic kidney disease. 3. Coronary disease status post cardiac catheterization 03/11/2023. 4. Volume overload. 5. Acute hypoxic respiratory failure. 6. Hypertension with chronic kidney disease. Stable. 7. Chronic kidney disease mineral bone disease maintained on calcitriol. 8. Metabolic acidosis secondary to chronic kidney disease maintained on oral bicarb. Expect further improvement postdialysis. 9. Anemia of chronic kidney disease. Rule out iron deficiency. Plan: Currently seen while undergoing hemodialysis. Another treatment tomorrow mostly for ultrafiltration. Stop Lasix drip. Add IV Lasix 80 mg twice daily. Check phosphorus level. Check iron studies.
--- NOTE | 2023-03-19 13:57 | P.PN ---
Subjective Progress Note Date: 03/19/23 Patient is a 72-year-old male with chronic kidney disease use, diabetes mellitus insulin requiring, coronary artery disease status post stenting, and hypertension who presented to the hospital due to exertional dyspnea and chest pain. He was admitted actually admitted for possible acute coronary syndrome. Cardiology was consulted. He underwent cardiac catheterization which showed co ronary artery disease with a 40-50% mid distal left main stenosis, 50-60% mid LAD stenosis, 100% circumflex stenosis, and 50-60% mild RCA stenosis. Cath felt be fairly similar from 2017 was some progression of the left main disease. However, high risk for conitnued contrast exposure and recommends were made for initial conservative management wtih conitnued monitoring. His renal function, nephrology was following. Overnight on 03/18 patient developed worsening respiratory distress requiring increase of his oxygen from 6 to 15 L nasal cannula. Patient seen and examined at bedside. Patient seen on HD He reports that his respirations were very difficult last night, they're somewhat better today. He thinks his lower extremity edema is somewhat better. We discussed the concern that he may have a blood clot in his long and that ideally we would like to run a VQ scan but it may not be available over the weekend and I'm recommending a prophylactic heparin drip. He is in agreement with plan. He has reinserted his insulin pump. Vital signs reviewed General: nontoxic, no distress, appears at stated age Cardiovascular: S1S2 reg, no murmur, positive posterior tibial pulse bilateral, Lungs: Rhonchi bilateral bases , no accessory muscle use Abdominal: soft, nontender to palpation, no guarding, no appreciable organomegaly Ext: no gross muscle atrophy, 3+ edema b/l lower extremities, no contractures Neuro: CN II-XI grossly intact, no focal neuro deficits Psych: Alert, oriented, appropriate affect Assessment/Plan: Coronary artery disease status post cardiac cath 03/11/23- Acute kidney injury on chronic kidney disease stage IV- now requiring HD Acute fluid overload, suspect secondary to renal disease 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 Posey. He would not like to expose the patient to anymore contrast at this time incase there is a chance for renal recovery -Start heparin drip for possible pulmonary embolism. Await VQ scan. Check lower extremity venous Dopplers, reviewed no evidence of DVT bilaterally -Cardiology note reviewed: Continue current medical treatment. -Norvasc 5 mg twice daily, Coreg 3.125 mg twice daily, hydralazine 25 mg twice daily, Crestor 40 mg at night -Aspirin 81 mg daily -Zetia 10 mg daily -Lasix infusion 10 mg/h ordered by nephrology -Imdur 60 mg twice daily, propranolol 20 mg daily, Ranexa thousand milligrams twice daily -Sodium bicarb 1300 mg twice daily Diabetes mellitus type 2 -Patient has insulin pump in place and have bolusing appropriately with meals -Continue to follow blood sugars --at 1350 still awaiting AM labs to be drawn, further recs to follow reporting of labs. Imaging: CXR decreasing amount of fluid overload Data Review: Vitals remained a.m. temperature 98.2, pulse 73, respirations 20, blood pressure 131/61, O2 sat 94% on 15 L ABG reviewed with pH 7.41, pCO2 36, PaO2 65 on 80% FiO2 DVT prophylaxis: Heparin Anticipated discharge date: Pending clinical course Anticipated discharge place: Pending clinical course This dictation was prepared using [employer] voice recognition software. Though every attempt is made to correct errors during dictation some may still exist. Objective - Vital Signs Vital signs: Vital Signs Temp 97.4 F L 03/19/23 12:35 Pulse 72 03/19/23 12:35 Resp 20 03/19/23 12:35 BP 159/69 03/19/23 12:35 Pulse Ox 94 L 03/19/23 08:00 FiO2 Intake & Output 03/18/23 03/19/23 03/19/23 18:59 06:59 18:59 Intake Total 880 1520 Output Total 2750 200 2700 Balance -1870 -200 -1180 Weight 112.5 kg Intake: IV 100 Intake, IV Titration 100 Amount Furosemide 100 mg In 100 Sodium Chloride 0.9% 90 ml @ 10 MG/HR 10 mls/hr IV .Q10H JOEY Rx#: [id number] Oral 180 1020 Hemodialysis 500 500 Output: Urine 250 200 Hemodialysis 2500 2700 - Labs CBC & Chem 7: 03/18/23 09:25 03/18/23 09:25 Labs: Abnormal Lab Results - Last 24 Hours (Table) 03/18/23 03/18/23 03/19/23 Range/Units 16:04 20:24 01:23 ABG pO2 65 L (83-108) mmHg ABG Total CO2 26 H (19-24) mmol/L ABG O2 Saturation 92.6 L (94-97) % POC Glucose (mg/dL) 249 H 326 H (70-110) mg/dL 03/19/23 03/19/23 Range/Units 06:17 11:33 ABG pO2 (83-108) mmHg ABG Total CO2 (19-24) mmol/L ABG O2 Saturation (94-97) % POC Glucose (mg/dL) 203 H 139 H (70-110) mg/dL
[2023-03-19] MEDS: hydrALAZINE HCL 25 MG TAB PO SCH ×2 (14:07→20:34)
[2023-03-19] MEDS: ISOSORBIDE MONONITRATE ER 60 MG TAB.ER.24H PO SCH ×2 (14:07→20:33)
[2023-03-19] MEDS: amLODIPine 5 MG TAB PO SCH ×2 (14:07→20:34)
--- NOTE | 2023-03-19 15:57 | NM ---
EXAMINATION TYPE: NM pul vent and perfuse DATE OF EXAM: 03/19/2023 CLINICAL INDICATION: Male, 72 years old with history of pulmonary embolism; Comparison: Pleural effusion 10/18/2021. TECHNIQUE: Utilizing inhalation of 63.2 mCi Tc 99m DTPA aerosol and intravenous injection of 4.8 mCi of Tc 99m MAA, ventilation and perfusion images are acquired post injection in multiple projections. FINDINGS: Patchy uptake near the pulmonary hilum. No perfusion wedge-shaped defects visualized. IMPRESSION: 1. Radiotracer clumping artifact. 2. No evidence for pulmonary embolism.
[2023-03-19 17:00] LABS: Glucose,Whole Blood 185 mg/dL (70-110)
[2023-03-19 17:08] LABS: HCT 29.2 % (39.0-53.0); MCH 31.1 pg (25.0-35.0); MCHC 34.3 g/dL (31.0-37.0); MCV 90.8 fL (80.0-100.0); Mean Platelet Volume 8.4; Platelet Count 195 k/uL (150-450); RBC 3.22 m/uL (4.30-5.90); RDW 13.7 % (11.5-15.5); WBC 7.9 k/uL (3.8-10.6)
[2023-03-19 17:14] LABS: INR 1.1 (<1.2); Partial Thromboplastin Time 62.1 sec (22.0-30.0); Prothrombin Time 11.4 sec (9.0-12.0)
[2023-03-19 17:37] LABS: Phosphorus 3.6 mg/dL (2.5-4.5)
[2023-03-19 17:39] LABS: African American GFR (CKD) 22 (>60 ml/min/1.73 sqM); Anion Gap 13 mmol/L; Blood Urea Nitrogen 50 mg/dL (9-20); Calcium 8.1 mg/dL (8.4-10.2); Carbon Dioxide 24 mmol/L (22-30); Chloride 95 mmol/L (98-107); Glucose 179 mg/dL (74-99); Non-African American GFR(CKD) 19 (>60 ml/min/1.73 sqM); Sodium 132 mmol/L (137-145)
[2023-03-19 17:43] LABS: NT-Pro-B-Type Natriuretic Pept 18500 pg/mL
[2023-03-19] MEDS: PROPRANOLOL 20 MG TAB PO SCH (17:57)
[2023-03-19 20:30] LABS: Glucose,Whole Blood 154 mg/dL (70-110)
[2023-03-19] MEDS: ZOLPIDEM 5 MG TAB PO PRN (20:33)
[2023-03-19] MEDS: FUROSEMIDE 10 MG/ML 10 ML VIAL IV SCH (20:34)
[2023-03-19] MEDS: NON FORMULARY DRUG (Rosuvastatin Calcium [Crestor] 40 MG Tablet) PO SCH (20:42)
[2023-03-20 06:09] LABS: Glucose,Whole Blood 166 mg/dL (70-110)
[2023-03-20] MEDS: INSULIN PUMP MEAL BOLUS 1 UNIT MISC MISCELLANE SCH ×4 (06:30→22:19)
[2023-03-20] MEDS: carvediloL 3.125 MG TAB PO SCH ×2 (06:31→18:29)
[2023-03-20] MEDS: FUROSEMIDE 10 MG/ML 10 ML VIAL IV SCH ×2 (08:13→20:30)
[2023-03-20] MEDS: PROPRANOLOL 20 MG TAB PO SCH (08:13)
[2023-03-20] MEDS: LORATADINE 10 MG TAB PO SCH (08:14)
[2023-03-20] MEDS: ESCITALOPRAM 10 MG TAB PO SCH (08:14)
[2023-03-20] MEDS: ASPIRIN 81 MG PO SCH (08:14)
[2023-03-20] MEDS: SODIUM BICARBONATE TAB 650 MG TAB PO SCH ×2 (08:14→19:48)
[2023-03-20] MEDS: EZETIMIBE 10 MG TAB PO SCH (08:14)
[2023-03-20] MEDS: RANOLAZINE 500 MG TAB.ER.12H PO SCH ×2 (08:14→19:49)
--- NOTE | 2023-03-20 08:14 | P.PN ---
Subjective Progress Note Date: 03/20/23 Principal diagnosis: Heart failure This is a 72-year-old gentleman with a past medical history significant for CABG and known chronic total occlusion and severe disease in the LAD as well as preserved LV systolic function and also heart failure with preserved ejection fraction as well as diabetes and hypertension and dyslipidemia and chronic kidney disease was admitted to the hospital with shortness of breath and he was diagnosed with heart failure. He underwent an echo which revealed preserved LV systolic function. He was found to be in the stage renal disease did not r esponse to diuretics and he underwent dialysis yesterday March 192022 The patient was evaluated this morning. He continues to be short of breath and requiring high flow oxygen. The chest x-ray showed pulmonary vascular congestions. No evidence of pneumonia on the x-ray. The lower extremity edema has improved. He underwent dialysis yesterday and he is going to have dialysis today. With yesterday dialysis 2 L of fluid were taken out. He is not on any diuretics because he is not responding well to IV diuretics. 03/20/2020 The patient was seen and evaluated this morning he continues to be hypoxic requiring high flow oxygen. 3 L of fluid were taken by dialysis yesterday and the plan to undergo another dialysis later on today. Beside that his vitals are stable. He is feeling better clinically in terms of the shortness of breath. No pain in the chest. He has been maintaining normal sinus mechanism with his weight has came down significantly. On examination the lower extremity edema has improved significantly as well as well. Assessment CAD as described above and appeared to be stable Heart failure with preserved ejection fraction End stage renal disease is to started on dialysis Hypoxic respiratory failure related to heart failure. Rule out pneumonia Multiple comorbid conditions including diabetes and hypertension and dyslipidemia Plan Continue the current medical regimen The patient is in process of having dialysis today as well Continue monitor the electrolytes Follow-up with the patient Objective - Vital Signs Vital signs: Vital Signs Temp 98.3 F 03/20/23 08:00 Pulse 73 03/20/23 08:00 Resp 18 03/20/23 08:00 BP 140/65 03/20/23 08:00 Pulse Ox 94 L 03/20/23 08:00 FiO2 Intake & Output 03/19/23 03/20/23 03/20/23 18:59 06:59 18:59 Intake Total 1880 480 Output Total 2700 400 Balance -820 80 Weight 112.5 kg Intake: Oral 1380 480 Hemodialysis 500 Output: Urine 400 Hemodialysis 2700 Other: Voiding Method Indwelling Catheter Indwelling Catheter - Labs CBC & Chem 7: 03/19/23 16:44 03/19/23 16:44 Labs: Abnormal Lab Results - Last 24 Hours (Table) 03/19/23 03/19/23 03/19/23 Range/Units 11:33 16:44 16:44 RBC 3.22 L (4.30-5.90) m/uL Hgb 10.0 L (13.0-17.5) gm/dL Hct 29.2 L (39.0-53.0) % APTT (22.0-30.0) sec Sodium 132 L (137-145) mmol/L Chloride 95 L (98-107) mmol/L BUN 50 H (9-20) mg/dL Creatinine 3.13 H (0.66-1.25) mg/dL Glucose 179 H (74-99) mg/dL POC Glucose (mg/dL) 139 H (70-110) mg/dL Calcium 8.1 L (8.4-10.2) mg/dL 03/19/23 03/19/23 03/19/23 Range/Units 16:44 16:44 16:58 RBC (4.30-5.90) m/uL Hgb (13.0-17.5) gm/dL Hct (39.0-53.0) % APTT 62.1 H 50.8 H (22.0-30.0) sec Sodium (137-145) mmol/L Chloride (98-107) mmol/L BUN (9-20) mg/dL Creatinine (0.66-1.25) mg/dL Glucose (74-99) mg/dL POC Glucose (mg/dL) 185 H (70-110) mg/dL Calcium (8.4-10.2) mg/dL 03/19/23 03/20/23 Range/Units 20:28 06:07 RBC (4.30-5.90) m/uL Hgb (13.0-17.5) gm/dL Hct (39.0-53.0) % APTT (22.0-30.0) sec Sodium (137-145) mmol/L Chloride (98-107) mmol/L BUN (9-20) mg/dL Creatinine (0.66-1.25) mg/dL Glucose (74-99) mg/dL POC Glucose (mg/dL) 154 H 166 H (70-110) mg/dL Calcium (8.4-10.2) mg/dL
[2023-03-20] MEDS: ALBUTEROL NEBULIZED 2.5 MG/3 ML INHALATION PRN ×3 (08:19→20:11)
[2023-03-20] MEDS: SYMBICORT 80-4.5 MCG INHALER INHALATION SCH ×2 (08:19→20:11)
[2023-03-20 10:02] LABS: % Iron Saturation 9.81 (15.00-50.00)
--- NOTE | 2023-03-20 11:01 | P.PN ---
Subjective Patient is seen in follow-up for acute kidney injury on chronic kidney disease. Started on hemodialysis 03/18/2023. Currently on high flow nasal cannula. Shortness of breath improved after dialysis yesterday. Tolerated 2.7 L ultrafiltration yesterday. Scheduled for another treatment today. Hemodynamically stable. Vital signs are stable. General: No acute distress. HEENT: Head exam is unremarkable. On nasal cannula. LUNGS: Scattered rhonchi. HEART: Rate and Rhythm are regular. ABDOMEN: Nontender. EXTREMITITES: 1+ edema. Objective - Vital Signs Vital signs: Vital Signs Temp 98.3 F 03/20/23 08:00 Pulse 75 03/20/23 08:31 Resp 18 03/20/23 08:00 BP 140/65 03/20/23 08:00 Pulse Ox 94 L 03/20/23 08:00 FiO2 Intake & Output 03/19/23 03/20/23 03/20/23 18:59 06:59 18:59 Intake Total 1880 480 360 Output Total 2700 400 Balance -820 80 360 Weight 112.5 kg Intake: Oral 1380 480 360 Hemodialysis 500 Output: Urine 400 Hemodialysis 2700 Other: Voiding Method Indwelling Catheter Indwelling Catheter - Labs CBC & Chem 7: 03/19/23 16:44 03/19/23 16:44 Labs: Abnormal Lab Results - Last 24 Hours (Table) 03/19/23 03/19/23 03/19/23 Range/Units 11:33 16:44 16:44 RBC 3.22 L (4.30-5.90) m/uL Hgb 10.0 L (13.0-17.5) gm/dL Hct 29.2 L (39.0-53.0) % APTT (22.0-30.0) sec Sodium 132 L (137-145) mmol/L Chloride 95 L (98-107) mmol/L BUN 50 H (9-20) mg/dL Creatinine 3.13 H (0.66-1.25) mg/dL Glucose 179 H (74-99) mg/dL POC Glucose (mg/dL) 139 H (70-110) mg/dL Calcium 8.1 L (8.4-10.2) mg/dL Iron (65-175) UG/DL TIBC (228-460) UG/DL % Saturation (15.00-50.00) Transferrin (204.0-354.0) mg/dL Ferritin (22.0-322.0) ng/mL 03/19/23 03/19/23 03/19/23 Range/Units 16:44 16:44 16:44 RBC (4.30-5.90) m/uL Hgb (13.0-17.5) gm/dL Hct (39.0-53.0) % APTT 62.1 H 50.8 H (22.0-30.0) sec Sodium (137-145) mmol/L Chloride (98-107) mmol/L BUN (9-20) mg/dL Creatinine (0.66-1.25) mg/dL Glucose (74-99) mg/dL POC Glucose (mg/dL) (70-110) mg/dL Calcium (8.4-10.2) mg/dL Iron 21 L (65-175) UG/DL TIBC 214 L (228-460) UG/DL % Saturation 9.81 L (15.00-50.00) Transferrin 153.0 L (204.0-354.0) mg/dL Ferritin 584.0 H (22.0-322.0) ng/mL 03/19/23 03/19/23 03/20/23 Range/Units 16:58 20:28 06:07 RBC (4.30-5.90) m/uL Hgb (13.0-17.5) gm/dL Hct (39.0-53.0) % APTT (22.0-30.0) sec Sodium (137-145) mmol/L Chloride (98-107) mmol/L BUN (9-20) mg/dL Creatinine (0.66-1.25) mg/dL Glucose (74-99) mg/dL POC Glucose (mg/dL) 185 H 154 H 166 H (70-110) mg/dL Calcium (8.4-10.2) mg/dL Iron (65-175) UG/DL TIBC (228-460) UG/DL % Saturation (15.00-50.00) Transferrin (204.0-354.0) mg/dL Ferritin (22.0-322.0) ng/mL Assessment and Plan Plan: Assessment: 1. Acute kidney injury secondary to ATN secondary to cardiorenal syndrome and further worsened with the use of IV contrast. Started on hemodialysis 03/18/2023. Urine output 200-400 mL per 24 hours. 2. Chronic kidney disease stage IV with baseline creatinine near 3 secondary to diabetic kidney disease. 3. Coronary disease status post cardiac catheterization 03/11/2023. 4. Volume overload. 5. Acute hypoxic respiratory failure. 6. Hypertension with chronic kidney disease. Stable. 7. Chronic kidney disease mineral bone disease maintained on calcitriol. 8. Metabolic acidosis secondary to chronic kidney disease maintained on oral bicarb. Improved. 9. Anemia of chronic kidney disease. Iron deficiency noted. Plan: Hemodialysis today and again tomorrow. Challenge UF. Maintain IV Lasix. Add IV iron. Phosphorus level 3.6 dated 03/19/2023. Outpatient dialysis to be set up by case resolution specialist. Patient and family prefer [facility] [place] [facility].
[2023-03-20 11:25] LABS: Glucose,Whole Blood 140 mg/dL (70-110)
[2023-03-20] MEDS: amLODIPine 5 MG TAB PO SCH ×2 (12:00→19:49)
[2023-03-20] MEDS: ISOSORBIDE MONONITRATE ER 60 MG TAB.ER.24H PO SCH ×2 (12:01→19:49)
[2023-03-20] MEDS: hydrALAZINE HCL 25 MG TAB PO SCH ×2 (12:01→19:48)
[2023-03-20] MEDS: SODIUM FERRIC GLUCONAT-SUCROSE 125 MG in SODIUM CHLORIDE 0.9% 100 ML IVPB SCH (14:30)
--- NOTE | 2023-03-20 16:31 | P.PN ---
Subjective Progress Note Date: 03/20/23 (delayed charting seen at 0945) Patient is a 72-year-old male with chronic kidney disease use, diabetes mellitus insulin requiring, coronary artery disease status post stenting, and hypert ension who presented to the hospital due to exertional dyspnea and chest pain. He was admitted actually admitted for possible acute coronary syndrome. Cardiology was consulted. He underwent cardiac catheterization which showed coronary artery disease with a 40-50% mid distal left main stenosis, 50-60% mid LAD stenosis, 100% circumflex stenosis, and 50-60% mild RCA stenosis. Cath felt be fairly similar from 2017 was some progression of the left main disease. However, high risk for conitnued contrast exposure and recommends were made for initial conservative management wtih conitnued monitoring. His renal function, nephrology was following. Overnight on 03/18 patient developed worsening re spiratory distress requiring increase of his oxygen from 6 to 15 L nasal cannula. Patient seen and examined at bedside. He is still feeling somewhat short of breath today. He had several low glucose readings on his continuous glucose monitor. He has been having some low glucose readings at home. Vital signs reviewed General: nontoxic, no distress, appears at stated age Cardiovascular: S1S2 reg, no murmur, positive posterior tibial pulse bilateral, Lungs: Rhonchi bilateral bases , no accessory muscle use Abdominal: soft, nontender to palpation, no guarding, no appreciable organomegaly Ext: no gross muscle atrophy, trace edema b/l lower extremities, no contractures Neuro: CN II-XI grossly intact, no focal neuro deficits Psych: Alert, oriented, appropriate affect Assessment/Plan: Coronary artery disease status post cardiac cath 03/11/23 Acute kidney injury on chronic kidney disease stage IV- now requiring HD Acute fluid overload, suspect secondary to renal disease 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 Non-anion gap metabolic acidosis secondary to chronic kidney disease Hypertensive urgency with improved blood pressures Acute hypoxic respiratory failure that is worsening -Echocardiogram from 01/21 shows ejection fraction 50-55% - 1st HD 03/18/23, 2nd 03/19/23, 3rd 03/20/23, and plan is to have again tomorrow -Cardiology: Continue current medical management of cardiac disease -Nephrology note reviewed: Hemodialysis today and tomorrow, continue Lasix, continue iron -Norvasc 5 mg twice daily, Coreg 3.125 mg twice daily, hydralazine 25 mg twice daily, Crestor 40 mg at night -Aspirin 81 mg daily -Zetia 10 mg daily -Lasix infusion 10 mg/h ordered by nephrology -Imdur 60 mg twice daily, propranolol 20 mg daily, Ranexa thousand milligrams twice daily -Sodium bicarb 1300 mg twice daily Diabetes mellitus type 2 with hypogycemia -Pts been having BS in on his continuous glucose monitor. -Basal rates reviewed from his insulin pump [id number]: 1 unit/hr 4114-2524: 1.25 u/hr 3565-1363: 1.6 units/hr 4215-5361: 1.6 units/hr [id number]: 1.25 units/hr - He follows with Dr. Vigil of endocrinology [phone] - could consider calling during business hours to see if he has suggestions to reprogram insulin pump as patient likely will need rehab and wont be able to go for awhile. Likely it is related to his decreased appetite and starting HD - [employer] rep who whould be able to reprogram - asst [phone] - cell [phone] -Patient has insulin pump in place and have bolusing appropriately with meals -Continue to follow blood sugars Imaging: VQ scan- no PE B/l LE venous dopplers- No DVT Data Review: Vital signs reviewed temperature 98.3, pulse 73, respirations 18, blood pressure 140/65, O2 sat 94% on 15 L DVT prophylaxis: Heparin Anticipated discharge date: Pending clinical course Anticipated discharge place: Pending clinical course This dictation was prepared using [employer] voice recognition software. Though every attempt is made to correct errors during dictation some may still exist. Objective - Vital Signs Vital signs: Vital Signs Temp 98.3 F 03/20/23 08:00 Pulse 74 03/20/23 16:00 Resp 18 03/20/23 08:00 BP 140/65 03/20/23 08:00 Pulse Ox 94 L 03/20/23 08:00 FiO2 Intake & Output 03/19/23 03/20/23 03/20/23 18:59 06:59 18:59 Intake Total 1880 480 360 Output Total 2700 400 Balance -820 80 360 Weight 112.5 kg Intake: Oral 1380 480 360 Hemodialysis 500 Output: Urine 400 Hemodialysis 2700 Other: Voiding Method Indwelling Catheter Indwelling Catheter Indwelling Catheter - Labs CBC & Chem 7: 03/19/23 16:44 03/19/23 16:44 Labs: Abnormal Lab Results - Last 24 Hours (Table) 03/19/23 03/19/23 03/19/23 Range/Units 16:44 16:44 16:44 RBC 3.22 L (4.30-5.90) m/uL Hgb 10.0 L (13.0-17.5) gm/dL Hct 29.2 L (39.0-53.0) % APTT 62.1 H (22.0-30.0) sec Sodium 132 L (137-145) mmol/L Chloride 95 L (98-107) mmol/L BUN 50 H (9-20) mg/dL Creatinine 3.13 H (0.66-1.25) mg/dL Glucose 179 H (74-99) mg/dL POC Glucose (mg/dL) (70-110) mg/dL Calcium 8.1 L (8.4-10.2) mg/dL Iron (65-175) UG/DL TIBC (228-460) UG/DL % Saturation (15.00-50.00) Transferrin (204.0-354.0) mg/dL Ferritin (22.0-322.0) ng/mL 03/19/23 03/19/23 03/19/23 Range/Units 16:44 16:44 16:58 RBC (4.30-5.90) m/uL Hgb (13.0-17.5) gm/dL Hct (39.0-53.0) % APTT 50.8 H (22.0-30.0) sec Sodium (137-145) mmol/L Chloride (98-107) mmol/L BUN (9-20) mg/dL Creatinine (0.66-1.25) mg/dL Glucose (74-99) mg/dL POC Glucose (mg/dL) 185 H (70-110) mg/dL Calcium (8.4-10.2) mg/dL Iron 21 L (65-175) UG/DL TIBC 214 L (228-460) UG/DL % Saturation 9.81 L (15.00-50.00) Transferrin 153.0 L (204.0-354.0) mg/dL Ferritin 584.0 H (22.0-322.0) ng/mL 03/19/23 03/20/23 03/20/23 Range/Units 20:28 06:07 11:24 RBC (4.30-5.90) m/uL Hgb (13.0-17.5) gm/dL Hct (39.0-53.0) % APTT (22.0-30.0) sec Sodium (137-145) mmol/L Chloride (98-107) mmol/L BUN (9-20) mg/dL Creatinine (0.66-1.25) mg/dL Glucose (74-99) mg/dL POC Glucose (mg/dL) 154 H 166 H 140 H (70-110) mg/dL Calcium (8.4-10.2) mg/dL Iron (65-175) UG/DL TIBC (228-460) UG/DL % Saturation (15.00-50.00) Transferrin (204.0-354.0) mg/dL Ferritin (22.0-322.0) ng/mL
[2023-03-20 16:45] LABS: Glucose,Whole Blood 361 mg/dL (70-110)
[2023-03-20] MEDS: NON FORMULARY DRUG (Rosuvastatin Calcium [Crestor] 40 MG Tablet) PO SCH (19:44)
[2023-03-20] MEDS: PRAMIPEXOLE 0.5 MG TAB PO SCH ×2 (19:45→19:48)
[2023-03-20] MEDS: HEPARIN SODIUM,PORCINE 5,000 UNIT/ML 1 ML VIAL SQ SCH (19:58)
[2023-03-20 20:17] LABS: Glucose,Whole Blood 147 mg/dL (70-110)
[2023-03-20] MEDS: ALPRAZolam 0.25 MG TAB PO PRN (22:08)
[2023-03-20] MEDS ORDERED: MORPHINE SULFATE 4 MG/ML SYRINGE IVP STA (22:40)
[2023-03-21] MEDS: HEPARIN SODIUM,PORCINE 5,000 UNIT/ML 1 ML VIAL SQ SCH ×4 (00:03→23:42)
[2023-03-21 06:09] LABS: Glucose,Whole Blood 79 mg/dL (70-110)
[2023-03-21] MEDS: INSULIN PUMP MEAL BOLUS 1 UNIT MISC MISCELLANE SCH (06:21)
[2023-03-21] MEDS: carvediloL 3.125 MG TAB PO SCH (06:39)
--- NOTE | 2023-03-21 07:28 | XR ---
EXAMINATION TYPE: XR chest 1V portable DATE OF EXAM: 03/21/2023 COMPARISON: 03/19/2023 INDICATION: Fluid overload TECHNIQUE: Single frontal view of the chest is obtained. FINDINGS: The heart size is normal. The pulmonary vasculature is prominent. Mild diffuse increased lung markings are present in the upper lung salas at the right posterior base . Catheter is present on the right with the tips in the right atrium. IMPRESSION: 1. Volume overload, slightly improved from comparison.
--- NOTE | 2023-03-21 08:00 | P.CNPUL ---
History of Present Illness Consult date: 03/21/23 Requesting physician: Priya Baig Reason for consult: dyspnea Chief complaint: Chest pain History of present illness: I am seeing this patient in new consultation today 03/21/2023 for acute h ypoxemic respiratory failure and fluid overload. Patient is a 72-year-old white male with past medical history significant for coronary artery disease and previous coronary stenting, hypertension, hyperlipidemia, chronic kidney disease stage IV, obstructive sleep apnea not compliant with CPAP, and is a remote ex- tobacco smoker. Patient presented to the emergency room back on March 09 chest pain that radiated to his left shoulder that occurred after some outside chores. He also had some shortness of breath and increased lower extremity swelling. The patient took 2 nitroglycerin tablets and came to the hospital. On March 11 the patient was taken to the cardiac Second Vp Hr Assessment and was found to have 40-50% mid distal left main stenosis, 50-60% mid LAD stenosis, 100% left circumflex stenosis, and 50-60% mid RCA stenosis. He had elevated left sided filling pressures. No cardiac intervention was performed at that time due to the risk of prolonged contrast-induced nephropathy. Patient's oxygen demands have progressively increased during the course of his stay. He did end up requiring hemodialysis, and had a right sided IJ permacath inserted on March 18, and has been receiving serial dialysis. We were finally consulted early this morning. He was apparently in some mild to moderate respiratory distress earlier. The patient is currently lying in bed, fatigued, on a 15 L nonrebreath er. His SpO2 is 100%, and I was able to wean down FiO2 to 6 L high flow cannula. Most recent chest x-ray shows improved pulmonary vascular congestion. Ventilation/perfusion scan from 2 days ago showed no evidence of pulmonary embolism. ABG from 2 days ago shows a pO2 of 65, pCO2 of 39, pH of 7.41. This was done on a 15 L high flow cannula. Most recent CBC from 2 days ago shows a WBC count of 7.9, hemoglobin 10, hematocrit 29, platelets 95. Most recent BMP from 2 days ago shows a sodium 132, potassium 4, chloride 95, serum bicarb 24, BUN 50, creatinine 3.13, glucose 179. NT proBNP at this time was elevated at 18,500. Patient has an indwelling urine catheter, and is oliguric. His negative for COVID-19. Patient's prognosis is guarded. Review of Systems REVIEW OF SYSTEMS: CONSTITUTIONAL: Denies any recent significant weight loss or weight gain. Denies fever. EYES: Denies change in vision. EARS, NOSE, MOUTH, THROAT: Denies headaches, denies sore throat. CARDIOVASCULAR: Denies chest pain, palpitations or syncopal episodes. RESPIRATORY: Denies cough, congestion or hemoptysis. Admits shortness breath especially with exertion such as getting up to the side of the bed GASTROINTESTINAL: Denies change in appetite, abdominal pain, nausea and vomiting, or diarrhea GENITOURINARY: Denies hematuria, denies infections. MUSKULOSKELETAL: Denies pain, denies swelling. INTEGUMENTARY: Denies rash, denies eczema. NEUROLOGICAL: Denies recent memory loss, no recent seizure activity. PSYCHIATRIC: Denies anxiety, denies depression. HEMATOLOGIC/LYMPHATIC: Denies anemia, denies enlarged lymph node Past Medical History Past Medical History: Coronary Artery Disease (CAD), Chest Pain / Angina, Heart Failure, Diabetes Mellitus, Hyperlipidemia, Hypertension, Myocardial Infarction ([place]), Renal Disease, Sleep Apnea/CPAP/BIPAP Additional Past Medical History / Comment(s): 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, coronary artery disease, diabetes mellitus, hypertension, chronic renal failure, hyperlipidemia, JEN, pt has insulin pump Last Myocardial Infarction Date:: 03/04/14 History of Any Multi-Drug Resistant Organisms: None Reported Past Surgical History: Cholecystectomy, Heart Catheterization, Heart Cath eterization With Stent, Orthopedic Surgery Additional Past Surgical History / Comment(s): shoulder, hemmroid, cardiac stent in june 2014, eye surgery, 3-4 cardiac stents Past Anesthesia/Blood Transfusion Reactions: No Reported Reaction Additional Past Anesthesia/Blood Transfusion Reaction / Comment(s): Never had a blood transfusion Date of Last Stent Placement:: 05/2014 Past Psychological History: Anxiety Additional Psychological History / Comment(s): Shopping and crowds bother patient. Smoking Status: Former smoker Past Alcohol Use History: None Reported Additional Past Alcohol Use History / Comment(s): pt. quit smoking in 1980 Past Drug Use History: None Reported - Past Family History Father Family Medical History: Cancer Additional Family Medical History / Comment(s): bladder cancer Mother Family Medical History: Diabetes Mellitus Additional Family Medical History / Comment(s): Pancreatic CA Medications and Allergies Home Medications Medication Instructions Recorded Confirmed Type Cetirizine HCl 10 mg PO DAILY 03/03/14 03/09/23 History Nitroglycerin Sl Tabs [Nitrostat] 0.4 mg SL Q5M PRN 03/03/14 03/09/23 History Rosuvastatin Calcium [Crestor] 40 mg PO HS 03/03/14 03/09/23 History Ezetimibe [Zetia] 10 mg PO DAILY 05/19/16 03/09/23 History Ferrous Sulfate [Iron (65 MG 325 mg PO DAILY 05/19/16 03/09/23 History Elemental)] Ergocalciferol (Vitamin D2) 50,000 unit PO Q14D 05/28/18 03/09/23 History [Vitamin D2] Febuxostat [Uloric] 40 mg PO DAILY 05/28/18 03/09/23 History Insulin Aspart (For Pump) [NovoLOG 0.01 unit SQ-PUMP CONTINUOUS MDD 05/28/18 03/09/23 History (For Pump)] 60 UNITS Vitamin B Complex 1 cap PO DAILY 05/28/18 03/09/23 History Isosorbide Mononitrate ER [Imdur] 60 mg PO BID 07/05/18 03/09/23 History calcitrioL [Calcitriol] 0.25 mcg PO DAILY 07/05/18 03/09/23 History Pramipexole [Mirapex] 0.5 mg PO HS 05/02/19 03/09/23 History Ranolazine [Ranexa] 500 mg PO BID 05/02/19 03/09/23 History Propranolol [Inderal] 20 mg PO DAILY 07/28/20 03/09/23 History Dulaglutide [Trulicity] 1.5 mg SQ VALLECILLO 05/23/21 03/09/23 History Albuterol Inhaler [Ventolin Hfa 2 puff INHALATION RT-Q4H PRN 08/10/21 03/09/23 History Inhaler] Fluticasone Propion/Salmeterol 1 puff INHALATION RT-BID PRN 08/10/21 03/09/23 History [Wixela 100-50 Inhub] Furosemide [Lasix] 40 mg PO DAILY 30 Days #30 tablet 10/20/21 03/09/23 Rx Aspirin EC [Ecotrin Low Dose] 81 mg PO HS 02/21/22 03/09/23 History Cholecalciferol [Vitamin D3 (25 25 mcg PO DAILY 02/21/22 03/09/23 History Mcg = 1000 Iu)] Glucagon Emergency Kit 1 mg IM ONCE PRN 02/21/22 03/09/23 History Escitalopram [Lexapro] 10 mg PO DAILY 01/01/23 03/09/23 History hydrALAZINE HCL [Apresoline] 25 mg PO BID #60 tab 01/03/23 03/09/23 Rx amLODIPine [Norvasc] 5 mg PO BID 02/03/23 03/09/23 History Allergies Allergy/AdvReac Type Severity Reaction Status Date / Time atorvastatin [From Lipitor] AdvReac Unknown Verified 03/09/23 17:39 baclofen AdvReac Unknown Verified 03/09/23 17:39 Physical Exam Vitals: Vital Signs Temp Pulse Pulse Resp BP BP Pulse Ox 03/21/23 03:46 98 F 74 18 141/66 97 03/20/23 23:04 98.6 F 74 20 130/78 98 03/20/23 21:00 97 03/20/23 20:26 84 03/20/23 20:13 77 03/20/23 19:32 76 20 165/79 97 03/20/23 16:00 74 75 22 170/76 95 03/20/23 15:49 75 03/20/23 14:00 73 18 03/20/23 09:00 98.6 F 72 18 146/79 03/20/23 08:31 75 03/20/23 08:19 76 03/20/23 08:00 98.3 F 73 18 140/65 94 L Intake and Output 03/20/23 03/21/23 03/21/23 22:59 06:59 14:59 Output Total 200 Balance -200 Output: Urine 200 Other: Voiding Method Indwelling Catheter Indwelling Catheter Weight 106.5 kg GENERAL EXAM: Alert, 72-year-old white male, fatigued but in no apparent distress. HEAD: Normocephalic and atraumatic EYES: Normal reaction of pupils, equal size. NOSE: Clear with pink turbinates. THROAT: No erythema or exudates. NECK: No masses, no JVD. CHEST: No chest wall deformity. LUNGS: Equal air entry with no crackles, wheeze, rhonchi or dullness. On 6 L/m nasal cannula. There is some accessory muscle use and tachypnea CVS: S1 and S2 normal with no audible murmur, regular rhythm. No extra heart sounds ABDOMEN: There is some mild abdominal distention, no hepatosplenomegaly, active bowel sounds, no guarding or rigidity. SPINE: No scoliosis or deformity SKIN: No rashes CENTRAL NERVOUS SYSTEM: No focal deficits, tone is normal in all 4 extremities. EXTREMITIES: There is mild nonpitting bilateral lower extremity edema. No clubbing, or cyanosis. Peripheral pulses are intact. Results - Laboratory Findings CBC and BMP: 03/21/23 07:12 03/21/23 07:12 ABG ABG pH 7.41 (7.35-7.45) 03/19/23: ABG pCO2 39 mmHg (35-45) 03/19/23: ABG pO2 65 mmHg (83-108) L 03/19/23 01: ABG O2 Saturation 92.6 % (94-97) L 03/19/23 01:23 PT/INR, D-dimer PT 11.4 sec (9.0-12.0) 03/19/23 16:44 INR 1.1 (<1.2) 03/19/23 16:44 Abnormal lab findings: Abnormal Labs 03/09/23 03/09/23 03/09/23 18:30 18:30 18:30 RBC 3.49 L Hgb 10.8 L Hct 31.2 L APTT ABG pO2 ABG Total CO2 ABG O2 Saturation Sodium 134 L Potassium Chloride Carbon Dioxide BUN 53 H Creatinine 3.01 H Glucose 293 H POC Glucose (mg/dL) Hemoglobin A1c Calcium 8.1 L Iron TIBC % Saturation Transferrin Ferritin Albumin 3.3 L HDL Cholesterol 35.50 L 03/09/23 03/10/23 03/10/23 18:30 05:53 10:22 RBC 4.25 L Hgb 12.8 L Hct 38.3 L APTT ABG pO2 ABG Total CO2 ABG O2 Saturation Sodium Potassium Chloride Carbon Dioxide BUN Creatinine Glucose POC Glucose (mg/dL) 239 H Hemoglobin A1c 7.5 H Calcium Iron TIBC % Saturation Transferrin Ferritin Albumin HDL Cholesterol 03/10/23 03/10/23 03/10/23 11:59 16:22 19:58 RBC Hgb Hct APTT ABG pO2 ABG Total CO2 ABG O2 Saturation Sodium Potassium Chloride Carbon Dioxide BUN Creatinine Glucose POC Glucose (mg/dL) 293 H 248 H 145 H Hemoglobin A1c Calcium Iron TIBC % Saturation Transferrin Ferritin Albumin HDL Cholesterol 03/10/23 03/11/23 03/11/23 22:27 06:08 06:08 RBC 3.62 L Hgb 10.9 L Hct 32.6 L APTT 33.1 H ABG pO2 ABG Total CO2 ABG O2 Saturation Sodium Potassium Chloride 110 H Carbon Dioxide 17 L BUN 45 H Creatinine 2.87 H Glucose POC Glucose (mg/dL) Hemoglobin A1c Calcium 7.9 L Iron TIBC % Saturation Transferrin Ferritin Albumin HDL Cholesterol 03/11/23 03/11/23 03/11/23 06:08 11:42 16:15 RBC Hgb Hct APTT 35.3 H ABG pO2 ABG Total CO2 ABG O2 Saturation Sodium Potassium Chloride Carbon Dioxide BUN Creatinine Glucose POC Glucose (mg/dL) 113 H 130 H Hemoglobin A1c Calcium Iron TIBC % Saturation Transferrin Ferritin Albumin HDL Cholesterol 03/11/23 03/12/23 03/12/23 20:12 06:06 08:03 RBC Hgb Hct APTT ABG pO2 ABG Total CO2 ABG O2 Saturation Sodium Potassium Chloride 108 H Carbon Dioxide 18 L BUN 37 H Creatinine 2.70 H Glucose 169 H POC Glucose (mg/dL) 251 H 67 L Hemoglobin A1c Calcium 7.9 L Iron TIBC % Saturation Transferrin Ferritin Albumin HDL Cholesterol 03/12/23 03/12/23 03/13/23 08:03 11:42 06:50 RBC 3.85 L Hgb 11.9 L Hct 34.7 L APTT ABG pO2 ABG Total CO2 ABG O2 Saturation Sodium Potassium Chloride 108 H Carbon Dioxide 16 L BUN 38 H Creatinine 2.84 H Glucose 72 L POC Glucose (mg/dL) 187 H Hemoglobin A1c Calcium 8.1 L Iron TIBC % Saturation Transferrin Ferritin Albumin HDL Cholesterol 03/13/23 03/13/23 03/13/23 11:28 16:34 20:15 RBC Hgb Hct APTT ABG pO2 ABG Total CO2 ABG O2 Saturation Sodium Potassium Chloride Carbon Dioxide BUN Creatinine Glucose POC Glucose (mg/dL) 124 H 141 H 184 H Hemoglobin A1c Calcium Iron TIBC % Saturation Transferrin Ferritin Albumin HDL Cholesterol 03/14/23 03/14/23 03/14/23 07:11 07:11 11:29 RBC 3.72 L Hgb 11.3 L Hct 33.9 L APTT ABG pO2 ABG Total CO2 ABG O2 Saturation Sodium 136 L Potassium Chloride Carbon Dioxide 17 L BUN 39 H Creatinine 3.17 H Glucose POC Glucose (mg/dL) 148 H Hemoglobin A1c Calcium Iron TIBC % Saturation Transferrin Ferritin Albumin HDL Cholesterol 03/14/23 03/14/23 03/15/23 16:49 19:46 11:50 RBC Hgb Hct APTT ABG pO2 ABG Total CO2 ABG O2 Saturation Sodium Potassium Chloride Carbon Dioxide BUN Creatinine Glucose POC Glucose (mg/dL) 152 H 128 H 134 H Hemoglobin A1c Calcium Iron TIBC % Saturation Transferrin Ferritin Albumin HDL Cholesterol 03/15/23 03/15/23 03/16/23 12:12 20:01 06:07 RBC Hgb Hct APTT ABG pO2 ABG Total CO2 ABG O2 Saturation Sodium 132 L Potassium 5.6 H Chloride Carbon Dioxide 13 L BUN 48 H Creatinine 3.39 H Glucose 164 H POC Glucose (mg/dL) 172 H 118 H Hemoglobin A1c Calcium Iron TIBC % Saturation Transferrin Ferritin Albumin HDL Cholesterol 03/16/23 03/16/23 03/16/23 08:34 08:34 11:13 RBC 3.51 L Hgb 10.7 L Hct 31.8 L APTT ABG pO2 ABG Total CO2 ABG O2 Saturation Sodium 132 L Potassium Chloride Carbon Dioxide 17 L BUN 52 H Creatinine 3.87 H Glucose 171 H POC Glucose (mg/dL) 119 H Hemoglobin A1c Calcium Iron TIBC % Saturation Transferrin Ferritin Albumin HDL Cholesterol 03/16/23 03/17/23 03/17/23 19:47 09:16 09:16 RBC 3.29 L Hgb 10.1 L Hct 29.7 L APTT ABG pO2 ABG Total CO2 ABG O2 Saturation Sodium 134 L Potassium Chloride Carbon Dioxide 20 L BUN 60 H Creatinine 4.14 H Glucose 107 H POC Glucose (mg/dL) 134 H Hemoglobin A1c Calcium 8.2 L Iron TIBC % Saturation Transferrin Ferritin Albumin HDL Cholesterol 03/17/23 03/17/23 03/18/23 16:17 19:44 06:34 RBC Hgb Hct APTT ABG pO2 ABG Total CO2 ABG O2 Saturation Sodium Potassium Chloride Carbon Dioxide BUN Creatinine Glucose POC Glucose (mg/dL) 122 H 145 H 222 H Hemoglobin A1c Calcium Iron TIBC % Saturation Transferrin Ferritin Albumin HDL Cholesterol 03/18/23 03/18/23 03/18/23 09:25 09:25 11:14 RBC 3.11 L Hgb 9.5 L Hct 29.2 L APTT ABG pO2 ABG Total CO2 ABG O2 Saturation Sodium 132 L Potassium Chloride 97 L Carbon Dioxide 14 L BUN 78 H Creatinine 4.79 H Glucose 263 H POC Glucose (mg/dL) 192 H Hemoglobin A1c Calcium 8.0 L Iron TIBC % Saturation Transferrin Ferritin Albumin HDL Cholesterol 03/18/23 03/18/23 03/19/23 16:04 20:24 01:23 RBC Hgb Hct APTT ABG pO2 65 L ABG Total CO2 26 H ABG O2 Saturation 92.6 L Sodium Potassium Chloride Carbon Dioxide BUN Creatinine Glucose POC Glucose (mg/dL) 249 H 326 H Hemoglobin A1c Calcium Iron TIBC % Saturation Transferrin Ferritin Albumin HDL Cholesterol 03/19/23 03/19/23 03/19/23 06:17 11:33 16:44 RBC 3.22 L Hgb 10.0 L Hct 29.2 L APTT ABG pO2 ABG Total CO2 ABG O2 Saturation Sodium Potassium Chloride Carbon Dioxide BUN Creatinine Glucose POC Glucose (mg/dL) 203 H 139 H Hemoglobin A1c Calcium Iron TIBC % Saturation Transferrin Ferritin Albumin HDL Cholesterol 03/19/23 03/19/23 03/19/23 16:44 16:44 16:44 RBC Hgb Hct APTT 62.1 H 50.8 H ABG pO2 ABG Total CO2 ABG O2 Saturation Sodium 132 L Potassium Chloride 95 L Carbon Dioxide BUN 50 H Creatinine 3.13 H Glucose 179 H POC Glucose (mg/dL) Hemoglobin A1c Calcium 8.1 L Iron TIBC % Saturation Transferrin Ferritin Albumin HDL Cholesterol 03/19/23 03/19/23 03/19/23 16:44 16:58 20:28 RBC Hgb Hct APTT ABG pO2 ABG Total CO2 ABG O2 Saturation Sodium Potassium Chloride Carbon Dioxide BUN Creatinine Glucose POC Glucose (mg/dL) 185 H 154 H Hemoglobin A1c Calcium Iron 21 L TIBC 214 L % Saturation 9.81 L Transferrin 153.0 L Ferritin 584.0 H Albumin HDL Cholesterol 03/20/23 03/20/23 03/20/23 06:07 11:24 16:44 RBC Hgb Hct APTT ABG pO2 ABG Total CO2 ABG O2 Saturation Sodium Potassium Chloride Carbon Dioxide BUN Creatinine Glucose POC Glucose (mg/dL) 166 H 140 H 361 H Hemoglobin A1c Calcium Iron TIBC % Saturation Transferrin Ferritin Albumin HDL Cholesterol 03/20/23 20:15 RBC Hgb Hct APTT ABG pO2 ABG Total CO2 ABG O2 Saturation Sodium Potassium Chloride Carbon Dioxide BUN Creatinine Glucose POC Glucose (mg/dL) 147 H Hemoglobin A1c Calcium Iron TIBC % Saturation Transferrin Ferritin Albumin HDL Cholesterol - Diagnostic Findings Chest x-ray: image reviewed Assessment and Plan Assessment: Acute hypoxemic respiratory failure, secondary to fluid overload. Most recent chest x-ray shows improved pulmonary vascular congestion. Patient has been receiving hemodialysis daily for the last 2 days. Most recent echocardiogram from December, shows a preserved left ventricular systolic ejection fraction of 50-55% and mild to moderate mitral regurgitation. Acute on chronic kidney injury, now requiring serial hemodialysis Anion gap metabolic acidosis secondary to above, improved Coronary artery disease, status post cardiac catheterization on 03/11/2023 and was found to have 40-50% mid distal left main stenosis, 50-60% mid LAD stenosis, 100% left circumflex stenosis, and 50-60% mid RCA stenosis. With elevated left sided filling pressures. No cardiac intervention was performed at that time due to the risk of prolonged contrast-induced nephropathy. Mild intermittent bronchial asthma, stable Chronic kidney disease stage IV Type 2 diabetes mellitus, insulin-dependent Anemia of chronic disease Hyperlipidemia Essential hypertension Obstructive sleep apnea, noncompliant with home CPAP Remote ex-smoker Plan: Patient's medications, labs and chest x-ray reviewed Continue supplemental oxygen and titrate FiO2 as tolerated Receiving serial hemodialysis treatments per nephrology Receiving Lasix 80 mg IV twice a day, however, is oliguric Continue bronchodilators and Symbicort inhaler Heparin for DVT prophylaxis We will continue to follow and make recommendations I have personally seen and examined the patient, performed the documentation and the assessment and plan as written. Number of minutes spent on the visit:20 This is a joint evaluation has been done along with a nurse practitioner. The patient is currently comfortable on 5 L of oxygen by nasal cannula. Pulse ox is in order of 95%. The patient is undergoing hemodialysis and the goal is to do a 3.5 L of ultrafiltration. His resting comfortably in bed. No chest pain. No significant shortness of breath. He is still on IV Lasix. Urine output is oliguric. Will likely need long-term dialysis. We'll continue to follow along with the rest of the medical team. His evaluation was done in more than 30 minutes. Time with Patient: Greater than 30
[2023-03-21] MEDS: ALBUTEROL NEBULIZED 2.5 MG/3 ML INHALATION PRN ×2 (09:02→15:42)
[2023-03-21] MEDS: SYMBICORT 80-4.5 MCG INHALER INHALATION SCH ×2 (09:02→20:11)
[2023-03-21 09:39] LABS: HCT 26.6 % (39.0-53.0); MCH 30.9 pg (25.0-35.0); MCHC 33.6 g/dL (31.0-37.0); Mean Platelet Volume 8.1; Platelet Count 195 k/uL (150-450); RBC 2.89 m/uL (4.30-5.90); RDW 13.4 % (11.5-15.5); WBC 6.3 k/uL (3.8-10.6)
[2023-03-21 10:01] LABS: African American GFR (CKD) 17 (>60 ml/min/1.73 sqM); Blood Urea Nitrogen 51 mg/dL (9-20); Calcium 8.2 mg/dL (8.4-10.2); Carbon Dioxide 28 mmol/L (22-30); Glucose 52 mg/dL (74-99); Non-African American GFR(CKD) 15 (>60 ml/min/1.73 sqM)
[2023-03-21 10:22] LABS: Anion Gap 10 mmol/L; Chloride 96 mmol/L (98-107); Sodium 134 mmol/L (137-145)
[2023-03-21 11:29] LABS: Glucose,Whole Blood 129 mg/dL (70-110)
--- NOTE | 2023-03-21 11:45 | P.PN ---
Subjective Progress Note Date: 03/21/23 Patient is a 72-year-old male with chronic kidney disease use, diabetes mellitus insulin requiring, coronary artery disease status post stenting, and hypertension who presented to the hospital due to exertional dyspnea and chest pain. He was admitted actually admitted for possible acute coronary syndrome. Cardiology was consulted. He underwent cardiac catheterization which showed c oronary artery disease with a 40-50% mid distal left main stenosis, 50-60% mid LAD stenosis, 100% circumflex stenosis, and 50-60% mild RCA stenosis. Cath felt be fairly similar from 2017 was some progression of the left main disease. However, high risk for conitnued contrast exposure and recommends were made for initial conservative management wtih conitnued monitoring. His renal function, nephrology was following. Overnight on 03/18 patient developed worsening respiratory distress requiring increase of his oxygen from 6 to 15 L nasal cannula. Patient seen and examined at bedside. His O2 requirement is down to 6L. 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 Non-anion gap metabolic acidosis secondary to chronic kidney disease Hypertensive urgency with improved blood pressures Acute hypoxic respiratory failure that is worsening -Echocardiogram from 01/21 shows ejection fraction 50-55% - 1st HD 03/18/23 - 2L UF, 2nd 03/19/23 - 3L UF, 3rd 03/20/23 - 2L UF, 4th 03/21 - plan for 3L UF today -Discussed case with Cardiology: Continue current medical management of cardiac disease, will reconsider PCI to LAD now that patient is on iHD -Nephrology note: Hemodialysis today and tomorrow, continue Lasix, continue iron -Norvasc 5 mg twice daily, Coreg 3.125 mg twice daily, hydralazine 25 mg twice daily, Crestor 40 mg at night -Aspirin 81 mg daily -Zetia 10 mg daily -Lasix infusion 10 mg/h ordered by nephrology -Imdur 60 mg twice daily, propranolol 20 mg daily, Ranexa thousand milligrams twice daily -Sodium bicarb 1300 mg twice daily Diabetes mellitus type 2 with hypogycemia -Pts been having BS in on his continuous glucose monitor. -Basal rates reviewed from his insulin pump [id number]: 1 unit/hr [id number]: 1.25 u/hr [id number]: 1.6 units/hr [id number]: 1.6 units/hr [id number]: 1.25 units/hr - He follows with Dr. Vigil of endocrinology [phone] - could consider calling during business hours to see if he has suggestions to reprogram insulin pump as patient likely will need rehab and wont be able to go for awhile. Likely it is related to his decreased appetite and starting HD - [employer] rep who whould be able to reprogram - asst [phone] - cell [phone] -Patient has insulin pump in place and have bolusing appropriately with meals -Continue to follow blood sugars Imaging: VQ scan- no PE B/l LE venous dopplers- No DVT Data Review: Vital signs reviewed temperature 98.0, pulse 73, blood pressure 148/80, O2 sat 97% on 6 L DVT prophylaxis: Heparin Anticipated discharge date: Pending clinical course Anticipated discharge place: Pending clinical course This dictation was prepared using [employer] voice recognition software. Though every attempt is made to correct errors during dictation some may still exist. Objective - Vital Signs Vital signs: Vital Signs Temp 98.0 F 03/21/23 08:00 Pulse 71 03/21/23 09:17 Resp 20 03/21/23 08:00 BP 148/80 03/21/23 08:00 Pulse Ox 97 03/21/23 09:02 FiO2 Intake & Output 03/20/23 03/21/23 03/21/23 18:59 06:59 18:59 Intake Total 860 Output Total 2500 200 150 Balance -1640 -200 -150 Weight 106.5 kg Intake: Oral 360 Hemodialysis 500 Output: Urine 200 150 Hemodialysis 2500 Other: Voiding Method Indwelling Catheter Indwelling Catheter Indwelling Catheter - Labs CBC & Chem 7: 03/21/23 07:12 08/21/23 07:12 Labs: Abnormal Lab Results - Last 24 Hours (Table) 03/20/23 03/20/23 03/21/23 Range/Units 16:44 20:15 07:12 RBC 2.89 L (4.30-5.90) m/uL Hgb 9.0 L (13.0-17.5) gm/dL Hct 26.6 L (39.0-53.0) % Sodium (137-145) mmol/L Chloride (98-107) mmol/L BUN (9-20) mg/dL Creatinine (0.66-1.25) mg/dL Glucose (74-99) mg/dL POC Glucose (mg/dL) 361 H 147 H (70-110) mg/dL Calcium (8.4-10.2) mg/dL 03/21/23 03/21/23 Range/Units 07:12 11:27 RBC (4.30-5.90) m/uL Hgb (13.0-17.5) gm/dL Hct (39.0-53.0) % Sodium 134 L (137-145) mmol/L Chloride 96 L (98-107) mmol/L BUN 51 H (9-20) mg/dL Creatinine 3.85 H (0.66-1.25) mg/dL Glucose 52 L (74-99) mg/dL POC Glucose (mg/dL) 129 H (70-110) mg/dL Calcium 8.2 L (8.4-10.2) mg/dL
[2023-03-21] MEDS: SODIUM FERRIC GLUCONAT-SUCROSE 125 MG in SODIUM CHLORIDE 0.9% 100 ML IVPB SCH (12:06)
[2023-03-21] MEDS: INSULIN ASPART (NovoLOG) 100 UNIT/ML VIAL SQ SCH ×3 (12:11→21:17)
--- NOTE | 2023-03-21 12:11 | P.PN ---
Subjective Patient is seen in follow-up for acute kidney injury on chronic kidney disease. Started on hemodialysis 03/18/2023. Currently on 4 L nasal cannula. Tolerating dialysis well. Family present at bedside. Hemodynamically stable. Vital signs are stable. General: No acute distress. HEENT: Head exam is unremarkable. On nasal cannula. LUNGS: Scattered rhonchi. HEART: Rate and Rhythm are regular. ABDOMEN: Nontender. EXTREMITITES: 1+ edema. Objective - Vital Signs Vital signs: Vital Signs Temp 97.8 F 03/21/23 11:56 Pulse 74 03/21/23 12:00 Resp 18 03/21/23 12:00 BP 134/68 03/21/23 11:56 Pulse Ox 98 03/21/23 11:56 FiO2 Intake & Output 03/20/23 03/21/23 03/21/23 18:59 06:59 18:59 Intake Total 860 Output Total 2500 200 150 Balance -1640 -200 -150 Weight 106.5 kg Intake: Oral 360 Hemodialysis 500 Output: Urine 200 150 Hemodialysis 2500 Other: Voiding Method Indwelling Catheter Indwelling Catheter Indwelling Catheter - Labs CBC & Chem 7: 03/21/23 07:12 03/21/23 07:12 Labs: Abnormal Lab Results - Last 24 Hours (Table) 03/20/23 03/20/23 03/21/23 Range/Units 16:44 20:15 07:12 RBC 2.89 L (4.30-5.90) m/uL Hgb 9.0 L (13.0-17.5) gm/dL Hct 26.6 L (39.0-53.0) % Sodium (137-145) mmol/L Chloride (98-107) mmol/L BUN (9-20) mg/dL Creatinine (0.66-1.25) mg/dL Glucose (74-99) mg/dL POC Glucose (mg/dL) 361 H 147 H (70-110) mg/dL Calcium (8.4-10.2) mg/dL 03/21/23 03/21/23 Range/Units 07:12 11:27 RBC (4.30-5.90) m/uL Hgb (13.0-17.5) gm/dL Hct (39.0-53.0) % Sodium 134 L (137-145) mmol/L Chloride 96 L (98-107) mmol/L BUN 51 H (9-20) mg/dL Creatinine 3.85 H (0.66-1.25) mg/dL Glucose 52 L (74-99) mg/dL POC Glucose (mg/dL) 129 H (70-110) mg/dL Calcium 8.2 L (8.4-10.2) mg/dL Assessment and Plan Plan: Assessment: 1. Acute kidney injury secondary to ATN secondary to cardiorenal syndrome and further worsened with the use of IV contrast. Started on hemodialysis 03/18/2023. Urine output 200-400 mL per 24 hours. 2. Chronic kidney disease stage IV with baseline creatinine near 3 secondary to diabetic kidney disease. 3. Coronary disease status post cardiac catheterization 03/11/2023. 4. Volume overload. Improving with ultrafiltration. 5. Acute hypoxic respiratory failure. 6. Hypertension with chronic kidney disease. Stable. 7. Chronic kidney disease mineral bone disease maintained on calcitriol. 8. Metabolic acidosis secondary to chronic kidney disease maintained on oral bicarb. Improved. 9. Anemia of chronic kidney disease. Iron deficiency noted. Plan: Continue with daily dialysis and challenge ultrafiltration. Maintain IV lasix. Maintain IV iron. Phosphorus level 3.6 dated 03/19/2023. Outpatient dialysis to be set up by employment evaluator/case manager. Patient and family prefer [facility].
[2023-03-21] MEDS: FUROSEMIDE 10 MG/ML 10 ML VIAL IV SCH ×2 (13:03→21:17)
[2023-03-21] MEDS: EZETIMIBE 10 MG TAB PO SCH (13:05)
[2023-03-21] MEDS: RANOLAZINE 500 MG TAB.ER.12H PO SCH ×2 (13:06→21:16)
[2023-03-21] MEDS: ESCITALOPRAM 10 MG TAB PO SCH (13:06)
[2023-03-21] MEDS: hydrALAZINE HCL 25 MG TAB PO SCH ×2 (13:07→21:17)
[2023-03-21] MEDS: amLODIPine 5 MG TAB PO SCH ×2 (13:07→21:17)
[2023-03-21] MEDS: LORATADINE 10 MG TAB PO SCH (13:07)
[2023-03-21] MEDS: ASPIRIN 81 MG PO SCH (13:09)
[2023-03-21] MEDS: SODIUM BICARBONATE TAB 650 MG TAB PO SCH ×2 (13:09→21:16)
[2023-03-21] MEDS: ISOSORBIDE MONONITRATE ER 60 MG TAB.ER.24H PO SCH ×2 (13:15→13:18)
[2023-03-21] MEDS: PROPRANOLOL 20 MG TAB PO SCH (13:16)
--- NOTE | 2023-03-21 13:16 | P.PN ---
Subjective HISTORY OF PRESENT ILLNESS: 03/10/2023 This is a 72-year-old male with a past medical history significant for hypertension, hyperlipidemia, coronary artery disease with prior TALENT ACQUISITION RELATIONSHIP MANAGER of circumflex with collaterals, chronic kidney disease, mild nonischemic cardiomyopathy, diabetes, neuropathy, and obstructive sleep apnea. Patient follows in the office with Dr. Castle. We have been asked to see the patient in consultation for chest pain. Patient examined at the bedside. Patient states yesterday he was outside doing some yardwork work when he began to have chest pain. He also reports having shortness of breath. He went inside and took a nitro which did not help his pain so he took a second nitro which eased up his pain but he continued to report some soreness in his chest. He states he took a nap on the couch and when he woke up he went outside to cut some wood pallets. He came back inside and told his that felt like somebody had a belt around his chest and was tightening it. His gave him an additional nitro and called EMS. The patient currently denies any chest pain or pressure. He denies shortness of breath. Vital signs are stable. * EKG reveals sinus mechanism. Right bundle branch block. No signs of acute ischemia. * Chest xray bilateral hilar prominence could reflect enlargement of the main right and left pulmonary arteries indicating pulmonary arterial hypertension. * Laboratory data: WBC 5.5. Hemoglobin 12.8. Platelet count 191. Sodium 134. Potassium 4.7. BUN 53. Creatinine 3.01. Troponin negative 3. * Current home cardiac medications include hydralazine 25 mg twice a day, amlodipine 5 mg twice a day, Crestor 40 mg at night, Ranexa 500 mg twice a day, Imdur 60 mg twice a day, Lasix 40 mg daily, Zetia 10 mg daily, aspirin 81 mg daily * Most recent echocardiogram obtained in December 2022 revealed ejection fraction 50-55%, [id number] mitral regurgitation, mild aortic stenosis March 192022 The patient was evaluated this morning. He continues to be short of breath and requiring high flow oxygen. The chest x-ray showed pulmonary vascular congestions. No evidence of pneumonia on the x-ray. The lower extremity edema has improved. He underwent dialysis yesterday and he is going to have dialysis today. With yesterday dialysis 2 L of fluid were taken out. He is not on any diuretics because he is not responding well to IV diuretics. 03/20/2020 The patient was seen and evaluated this morning he continues to be hypoxic requiring high flow oxygen. 3 L of fluid were taken by dialysis yesterday and the plan to undergo another dialysis later on today. Beside that his vitals are stable. He is feeling better clinically in terms of the shortness of breath. No pain in the chest. He has been maintaining normal sinus mechanism with his weight has came down significantly. On examination the lower extremity edema has improved significantly as well as well. 03/21/2023 Patient is status post cardiac catheterization on 03/11/2023 revealing 40-50% mid to distal left main stenosis, 50-60% mid LAD stenosis, 100% circumflex stenosis, and 50-60% mid RCA stenosis. The patient has required hemodialysis post cardiac catheterization. Patient examined this morning at the bedside. Patient's spouse is present. He is currently undergoing hemodialysis. He denies any chest pain or pressure. He does report shortness of breath. The patient is currently on 4L nasal cannula. PHYSICAL EXAM: VITAL SIGNS: Reviewed. GENERAL: Well-developed in no acute distress. HEENT: Head is normocephalic. Pupils are equal, round. Sclerae anicteric. Mucous membranes of the mouth are moist. Neck supple. No JVD or thyromegaly LUNGS: Respirations even and unlabored. Lungs essentially clear to auscultation bilaterally. HEART: Regular rate and rhythm. S1 and S2 heard. Systolic murmur noted. ABDOMEN: Soft. Nondistended. Nontender. EXTREMITIES: Normal range of motion. No clubbing or cyanosis. Peripheral pulses intact. No lower extremity edema NEUROLOGIC: Awake and alert. Oriented x 3. ASSESSMENT: Chest pain, troponins negative 3 Coronary artery disease Acute on chronic kidney disease, on hemodialysis Mild nonischemic cardiomyopathy Chronic heart failure with preserved ejection fraction, currently euvolemic Hypertension Hyperlipidemia Diabetes Neuropathy Obstructive sleep apnea Chronic fatigue PLAN: Continue current cardiac medications Continue IV Lasix per nephrology Change Imdur to 60 mg daily Increase carvedilol to 6.25 mg twice a day Dr. Justice to speak with Dr. Castle regarding possible stenting Further recommendations pending patient's course Nurse practitioner note has been reviewed by physician. Signing provider agrees with the documented findings, assessment, and plan of care. Objective - Vital Signs Vital signs: Vital Signs Temp 97.8 F 03/21/23 11:56 Pulse 74 03/21/23 12:00 Resp 18 03/21/23 12:00 BP 134/68 03/21/23 11:56 Pulse Ox 98 03/21/23 11:56 FiO2 Intake & Output 03/20/23 03/21/23 03/21/23 18:59 06:59 18:59 Intake Total 860 Output Total 2500 200 150 Balance -1640 -200 -150 Weight 106.5 kg Intake: Oral 360 Hemodialysis 500 Output: Urine 200 150 Hemodialysis 2500 Other: Voiding Method Indwelling Catheter Indwelling Catheter Indwelling Catheter - Labs CBC & Chem 7: 03/21/23 07:12 03/21/23 07:12 Labs: Abnormal Lab Results - Last 24 Hours (Table) 03/20/23 03/20/23 03/21/23 Range/Units 16:44 20:15 07:12 RBC 2.89 L (4.30-5.90) m/uL Hgb 9.0 L (13.0-17.5) gm/dL Hct 26.6 L (39.0-53.0) % Sodium (137-145) mmol/L Chloride (98-107) mmol/L BUN (9-20) mg/dL Creatinine (0.66-1.25) mg/dL Glucose (74-99) mg/dL POC Glucose (mg/dL) 361 H 147 H (70-110) mg/dL Calcium (8.4-10.2) mg/dL 03/21/23 03/21/23 Range/Units 07:12 11:27 RBC (4.30-5.90) m/uL Hgb (13.0-17.5) gm/dL Hct (39.0-53.0) % Sodium 134 L (137-145) mmol/L Chloride 96 L (98-107) mmol/L BUN 51 H (9-20) mg/dL Creatinine 3.85 H (0.66-1.25) mg/dL Glucose 52 L (74-99) mg/dL POC Glucose (mg/dL) 129 H (70-110) mg/dL Calcium 8.2 L (8.4-10.2) mg/dL
[2023-03-21 16:36] LABS: Glucose,Whole Blood 181 mg/dL (70-110)
[2023-03-21] MEDS: carvediloL 6.25 MG TAB PO SCH (17:05)
[2023-03-21 21:09] LABS: Glucose,Whole Blood 215 mg/dL (70-110)
[2023-03-21] MEDS: NON FORMULARY DRUG (Rosuvastatin Calcium [Crestor] 40 MG Tablet) PO SCH (21:24)
[2023-03-21] MEDS: ALPRAZolam 0.5 MG TAB PO PRN (23:45)
[2023-03-22] MEDS ORDERED: MORPHINE SULFATE 4 MG/ML SYRINGE IVP STA ×2 (05:32→22:26)
[2023-03-22 06:07] LABS: Glucose,Whole Blood 175 mg/dL (70-110)
[2023-03-22] MEDS: INSULIN ASPART (NovoLOG) 100 UNIT/ML VIAL SQ SCH ×4 (06:42→22:40)
[2023-03-22] MEDS: carvediloL 6.25 MG TAB PO SCH ×2 (06:42→17:28)
[2023-03-22] MEDS: SODIUM FERRIC GLUCONAT-SUCROSE 125 MG in SODIUM CHLORIDE 0.9% 100 ML IVPB SCH (09:28)
[2023-03-22] MEDS: amLODIPine 5 MG TAB PO SCH ×2 (09:29→20:43)
[2023-03-22] MEDS: RANOLAZINE 500 MG TAB.ER.12H PO SCH ×2 (09:29→20:43)
[2023-03-22] MEDS: SODIUM BICARBONATE TAB 650 MG TAB PO SCH ×2 (09:29→20:43)
[2023-03-22] MEDS: LORATADINE 10 MG TAB PO SCH (09:29)
[2023-03-22] MEDS: ESCITALOPRAM 10 MG TAB PO SCH (09:29)
[2023-03-22] MEDS: FUROSEMIDE 10 MG/ML 10 ML VIAL IV SCH ×2 (09:29→20:42)
[2023-03-22] MEDS: EZETIMIBE 10 MG TAB PO SCH (09:29)
[2023-03-22] MEDS: ISOSORBIDE MONONITRATE ER 60 MG TAB.ER.24H PO SCH (09:29)
[2023-03-22] MEDS: ASPIRIN 81 MG PO SCH (09:29)
[2023-03-22] MEDS: hydrALAZINE HCL 25 MG TAB PO SCH ×2 (09:29→20:43)
[2023-03-22] MEDS: HEPARIN SODIUM,PORCINE 5,000 UNIT/ML 1 ML VIAL SQ SCH ×2 (09:29→17:28)
[2023-03-22] MEDS: SYMBICORT 80-4.5 MCG INHALER INHALATION SCH ×2 (09:37→20:27)
--- NOTE | 2023-03-22 11:12 | P.PN ---
Subjective Progress Note Date: 03/22/23 Patient is a 72-year-old male with chronic kidney disease use, diabetes mellitus insulin requiring, coronary artery disease status post stenting, and hypertension who presented to the hospital due to exertional dyspnea and chest pain. He was admitted actually admitted for possible acute coronary syndrome. Cardiology was consulted. He underwent cardiac catheterization which showed c oronary artery disease with a 40-50% mid distal left main stenosis, 50-60% mid LAD stenosis, 100% circumflex stenosis, and 50-60% mild RCA stenosis. Cath felt be fairly similar from 2017 was some progression of the left main disease. However, high risk for conitnued contrast exposure and recommends were made for initial conservative management wtih conitnued monitoring. His renal function, nephrology was following. Overnight on 03/18 patient developed worsening respiratory distress requiring increase of his oxygen from 6 to 15 L nasal cannula. Patient seen and examined at bedside. His O2 requirement is down to 2L. 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 Non-anion gap metabolic acidosis secondary to chronic kidney disease Hypertensive urgency with improved blood pressures Acute hypoxic respiratory failure that is worsening -Echocardiogram from 01/21 shows ejection fraction 50-55% - 1st HD 03/18/23 - 2L UF, 2nd 03/19/23 - 3L UF, 3rd 03/20/23 - 2L UF, 4th 03/21 - plan for 3L UF today -Discussed case with Cardiology: They do think that the lesion should be heavily considered for PCI, and will make a final decision in coming days -Nephrology note: Hemodialysis today and tomorrow, continue Lasix, continue iron -Norvasc 5 mg twice daily, Coreg 3.125 mg twice daily, hydralazine 25 mg twice daily, Crestor 40 mg at night -Aspirin 81 mg daily -Zetia 10 mg daily -Lasix infusion 10 mg/h ordered by nephrology -Imdur 60 mg twice daily, propranolol 20 mg daily, Ranexa thousand milligrams twice daily -Sodium bicarb 1300 mg twice daily Diabetes mellitus type 2 with hypogycemia -Pts been having BS in on his continuous glucose monitor. -Basal rates reviewed from his insulin pump [id number]: 1 unit/hr [id number]: 1.25 u/hr [id number]: 1.6 units/hr [id number]: 1.6 units/hr 5390-2750: 1.25 units/hr - He follows with Dr. Vigil of endocrinology [phone] - could consider calling during business hours to see if he has suggestions to reprogram insulin pump as patient likely will need rehab and wont be able to go for awhile. Likely it is related to his decreased appetite and starting HD - [employer] rep who whould be able to reprogram - asst [phone] - cell [phone] -Patient has insulin pump in place and have bolusing appropriately with meals -Continue to follow blood sugars Imaging: VQ scan- no PE B/l LE venous dopplers- No DVT Data Review: Vital signs reviewed temperature 98.0, pulse 73, blood pressure 148/80, O2 sat 97% on 6 L DVT prophylaxis: Heparin Anticipated discharge date: Pending clinical course Anticipated discharge place: Pending clinical course This dictation was prepared using XMLAW voice recognition software. Though every attempt is made to correct errors during dictation some may still exist. Objective - Vital Signs Vital signs: Vital Signs Temp 98.2 F 03/21/23 20:00 Pulse 75 03/22/23 04:00 Resp 17 03/22/23 04:00 BP 160/62 03/22/23 04:00 Pulse Ox 97 03/22/23 04:00 FiO2 Intake & Output 03/21/23 03/22/23 03/22/23 18:59 06:59 18:59 Intake Total 500 Output Total 3650 150 Balance -3150 -150 Weight 101.9 kg Intake: Hemodialysis 500 Output: Urine 150 150 Hemodialysis 3500 Other: Voiding Method Indwelling Catheter Indwelling Catheter - Labs CBC & Chem 7: 03/21/23 07:12 03/21/23 07:12 Labs: Abnormal Lab Results - Last 24 Hours (Table) 03/21/23 03/21/23 03/21/23 Range/Units 11:27 16:34 21:07 POC Glucose (mg/dL) 129 H 181 H 215 H (70-110) mg/dL 03/22/23 Range/Units 06:06 POC Glucose (mg/dL) 175 H (70-110) mg/dL
[2023-03-22 12:02] LABS: Glucose,Whole Blood 228 mg/dL (70-110)
--- NOTE | 2023-03-22 12:34 | P.PN ---
Subjective Patient is seen in follow-up for acute kidney injury on chronic kidney disease. Started on hemodialysis 03/18/2023. Currently on 2 L nasal cannula. Undergoing daily dialysis most of ultrafiltration. Slept well last night. Hemodynamically stable. Remains oliguric. Vital signs are stable. General: No acute distress. HEENT: Head exam is unremarkable. On nasal cannula. LUNGS: Scattered rhonchi. HEART: Rate and Rhythm are regular. ABDOMEN: Nontender. EXTREMITITES: 1+ edema. Objective - Vital Signs Vital signs: Vital Signs Temp 98.2 F 03/21/23 20:00 Pulse 75 03/22/23 04:00 Resp 17 03/22/23 04:00 BP 160/62 03/22/23 04:00 Pulse Ox 97 03/22/23 04:00 FiO2 Intake & Output 03/21/23 03/22/23 03/22/23 18:59 06:59 18:59 Intake Total 500 240 Output Total 3650 150 Balance -3150 -150 240 Weight 101.9 kg Intake: Oral 240 Hemodialysis 500 Output: Urine 150 150 Hemodialysis 3500 Other: Voiding Method Indwelling Catheter Indwelling Catheter - Labs CBC & Chem 7: 03/21/23 07:12 03/21/23 07:12 Labs: Abnormal Lab Results - Last 24 Hours (Table) 03/21/23 03/21/23 03/22/23 Range/Units 16:34 21:07 06:06 POC Glucose (mg/dL) 181 H 215 H 175 H (70-110) mg/dL 03/22/23 Range/Units 11:47 POC Glucose (mg/dL) 228 H (70-110) mg/dL Assessment and Plan Plan: Assessment: 1. Acute kidney injury secondary to ATN secondary to cardiorenal syndrome and further worsened with the use of IV contrast. Started on hemodialysis 03/18/2023. Oliguric. 2. Chronic kidney disease stage IV with baseline creatinine near 3 secondary to diabetic kidney disease. 3. Coronary disease status post cardiac catheterization 03/11/2023. 4. Volume overload. Improving with ultrafiltration. 5. Acute hypoxic respiratory failure. 6. Hypertension with chronic kidney disease. Stable. 7. Chronic kidney disease mineral bone disease maintained on calcitriol. 8. Metabolic acidosis secondary to chronic kidney disease maintained on oral bicarb. Improved. 9. Anemia of chronic kidney disease. Iron deficiency noted. Plan: Continue with daily dialysis and challenge ultrafiltration. Maintain IV lasix. Maintain IV iron. Phosphorus level 3.6 dated 03/19/2023. Outpatient dialysis to be set up by rn case mgr. Patient and family prefer [facility].
--- NOTE | 2023-03-22 12:40 | P.PN ---
Subjective Progress Note Date: 03/22/23 I am seeing this patient in new consultation today 03/21/2023 for acute hypoxemic respiratory failure and fluid overload. Patient is a 72-year-old white male with past medical history significant for coronary artery disease and previous coronary stenting, hypertension, hyperlipidemia, chronic kidney disease stage IV, obstructive sleep apnea not compliant with CPAP, and is a remote ex- tobacco smoker. Patient presented to the emergency room back on March 09 chest pain that radiated to his left shoulder that occurred after some outside chores. He also had some shortness of breath and increased lower extremity swelling. The patient took 2 nitroglycerin tablets and came to the hospital. On March 11 the patient was taken to the cardiac Adult Education Manager and was found to have 40-50% mid distal left main stenosis, 50-60% mid LAD stenosis, 100% left circumflex stenosis, and 50-60% mid RCA stenosis. He had elevated left sided filling pressures. No cardiac intervention was performed at that time due to the risk of prolonged contrast-induced nephropathy. Patient's oxygen demands have progressively increased during the course of his stay. He did end up requiring hemodialysis, and had a right sided IJ permacath inserted on March 18, and has been receiving serial dialysis. We were finally consulted early this morning. He was apparently in some mild to moderate respiratory distress earlier. The patient is currently lying in bed, fatigued, on a 15 L nonrebreather. His SpO2 is 100%, and I was able to wean down FiO2 to 6 L high flow cannula. Most recent chest x-ray shows improved pulmonary vascular congestion. Ventilation/perfusion scan from 2 days ago showed no evidence of pulmonary embolism. ABG from 2 days ago shows a pO2 of 65, pCO2 of 39, pH of 7.41. This was done on a 15 L high flow cannula. Most recent CBC from 2 days ago shows a WBC count of 7.9, hemoglobin 10, hematocrit 29, platelets 95. Most recent BMP from 2 days ago shows a sodium 132, potassium 4, chloride 95, serum bicarb 24, BUN 50, creatinine 3.13, glucose 179. NT proBNP at this time was elevated at 18,500. Patient has an indwelling urine catheter, and is oliguric. His negative for COVID-19. Patient's prognosis is guarded. On today's evaluation of 03/22/2023, the patient is stable on 3 L of oxygen by n neris cannula and the current pulse ox is 97%. No cervical respiratory difficulties. No chest pain. The patient is not producing much of urine output and the patient is going to undergo another session of hemodialysis today. His last session was done yesterday and the patient was also infiltrated to a total of 3.5 L. No new labs from today. The patient is awake and alert and communicating. Family is at the bedside. He is on Lasix with limited urine output as mentioned. Nephrology is on the case. Objective - Vital Signs Vital signs: Vital Signs Temp 98.2 F 03/21/23 20:00 Pulse 75 03/22/23 04:00 Resp 17 03/22/23 04:00 BP 160/62 03/22/23 04:00 Pulse Ox 97 03/22/23 04:00 FiO2 Intake & Output 03/21/23 03/22/23 03/22/23 18:59 06:59 18:59 Intake Total 500 Output Total 3650 150 Balance -3150 -150 Weight 101.9 kg Intake: Hemodialysis 500 Output: Urine 150 150 Hemodialysis 3500 Other: Voiding Method Indwelling Catheter Indwelling Catheter - Exam GENERAL EXAM: Alert, 72-year-old white male, fatigued but in no apparent distress. HEAD: Normocephalic and atraumatic EYES: Normal reaction of pupils, equal size. NOSE: Clear with pink turbinates. THROAT: No erythema or exudates. NECK: No masses, no JVD. CHEST: No chest wall deformity. LUNGS: Equal air entry with no crackles, wheeze, rhonchi or dullness. On 6 L/m nasal cannula. There is some accessory muscle use and tachypnea CVS: S1 and S2 normal with no audible murmur, regular rhythm. No extra heart sounds ABDOMEN: There is some mild abdominal distention, no hepatosplenomegaly, active bowel sounds, no guarding or rigidity. SPINE: No scoliosis or deformity SKIN: No rashes CENTRAL NERVOUS SYSTEM: No focal deficits, tone is normal in all 4 extremities. EXTREMITIES: There is mild nonpitting bilateral lower extremity edema. No clubbing, or cyanosis. Peripheral pulses are intact. - Labs CBC & Chem 7: 03/21/23 07:12 03/21/23 07:12 Labs: Abnormal Lab Results - Last 24 Hours (Table) 08/03/21/23 03/21/23 Range/Units 11:27 16:34 21:07 POC Glucose (mg/dL) 129 H 181 H 215 H (70-110) mg/dL 03/22/23 Range/Units 06:06 POC Glucose (mg/dL) 175 H (70-110) mg/dL Assessment and Plan Assessment: Acute hypoxemic respiratory failure, secondary to fluid overload. Most recent chest x-ray shows improved pulmonary vascular congestion. Patient has been receiving hemodialysis daily for the last 2 days. Most recent echocardiogram from December, shows a preserved left ventricular systolic ejection fraction of 50-55% and mild to moderate mitral regurgitation. Acute on chronic kidney injury, now requiring serial hemodialysis, last session of hemodialysis was done yesterday and another session to be done today. Anion gap metabolic acidosis secondary to above, improved Coronary artery disease, status post cardiac catheterization on 03/11/2023 and was found to have 40-50% mid distal left main stenosis, 50-60% mid LAD stenosis, 100% left circumflex stenosis, and 50-60% mid RCA stenosis. With elevated left sided filling pressures. No cardiac intervention was performed at that time due to the risk of prolonged contrast-induced nephropathy. Mild intermittent bronchial asthma, stable Chronic kidney disease stage IV Type 2 diabetes mellitus, insulin-dependent Anemia of chronic disease Hyperlipidemia Essential hypertension Obstructive sleep apnea, noncompliant with home CPAP Remote ex-smoker Plan: Clinically stable on 2 L of oxygen by nasal cannula Continue IV Lasix Another session of hemodialysis today Respiratory status is more stable compared to yesterday and the patient feels less short of breath Continue bronchodilators and Symbicort inhaler Heparin for DVT prophylaxis The patient will likely need long-term hemodialysis..
[2023-03-22] MEDS: DARBEPOETIN ALFA 40 MCG/0.4 ML SYRINGE SQ SCH (14:59)
[2023-03-22 16:45] LABS: Glucose,Whole Blood 111 mg/dL (70-110)
--- NOTE | 2023-03-22 17:29 | P.PN ---
Subjective Progress Note Date: 03/22/23 Subjective: Patient was evaluated bedside this morning. He reports that his symptoms are much better as compared to yesterday in terms of shortness of breath. He complains of chronic lethargically which has not changed much. Patient has not had substernal chest pain since last 2 days on my evaluation. I discussed the findings of his cardiac catheterization by Dr. Castle. After discussion we concluded that we will proceed with medical management with intensification of his antianginals and fluid optimization by hemodialysis. Patient has chronic complex atherosclerosis with difficult anatomy. If patient continues to have recurrent CHF exacerbations or anginal symptoms, we would proceed with a heart catheterization. ASSESSMENT: Chest pain, troponins negative 3 Coronary artery disease Acute on chronic kidney disease, on hemodialysis Mild nonischemic cardiomyopathy Chronic heart failure with preserved ejection fraction, currently euvolemic Hypertension Hyperlipidemia Diabetes Neuropathy Obstructive sleep apnea Chronic fatigue PLAN: Continue aspirin and atorvastatin, ezetimibe Continue Imdur 60 mg, and Ranolazine 1000mg twice a day Increase Coreg to 12.5 mg twice a day Continue hydralazine, Lasix, amlodipine Continue hemodialysis as per recommendations from nephrology HISTORY OF PRESENT ILLNESS: 03/10/2023 This is a 72-year-old male with a past medical history significant for hypertension, hyperlipidemia, coronary artery disease 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 Patient follows in the office with Dr. Castle. We have been asked to see the patient in consultation for chest pain. Patient examined at the bedside. Patient states yesterday he was outside doing some yardwork work when he began to have chest pain. He also reports having shortness of breath. He went inside and took a nitro which did not help his pain so he took a second nitro which eased up his pain but he continued to report some soreness in his chest. He states he took a nap on the couch and when he woke up he went outside to cut some wood pallets. He came back inside and told his that felt like somebody had a belt around his chest and was tightening it. His gave him an additional nitro and called EMS. The patient currently denies any chest pain or pressure. He denies shortness of breath. Vital signs are stable. * EKG reveals sinus mechanism. Right bundle branch block. No signs of acute ischemia. * Chest xray bilateral hilar prominence could reflect enlargement of the main right and left pulmonary arteries indicating pulmonary arterial hypertension. * Laboratory data: WBC 5.5. Hemoglobin 12.8. Platelet count 191. Sodium 134. Potassium 4.7. BUN 53. Creatinine 3.01. Troponin negative 3. * Current home cardiac medications include hydralazine 25 mg twice a day, amlodipine 5 mg twice a day, Crestor 40 mg at night, Ranexa 500 mg twice a day, Imdur 60 mg twice a day, Lasix 40 mg daily, Zetia 10 mg daily, aspirin 81 mg daily * Most recent echocardiogram obtained in December 2022 revealed ejection fraction 50-55%, [id number] mitral regurgitation, mild aortic stenosis March 192022 The patient was evaluated this morning. He continues to be short of breath and requiring high flow oxygen. The chest x-ray showed pulmonary vascular congestions. No evidence of pneumonia on the x-ray. The lower extremity edema has improved. He underwent dialysis yesterday and he is going to have dialysis today. With yesterday dialysis 2 L of fluid were taken out. He is not on any diuretics because he is not responding well to IV diuretics. 03/20/2020 The patient was seen and evaluated this morning he continues to be hypoxic requiring high flow oxygen. 3 L of fluid were taken by dialysis yesterday and the plan to undergo another dialysis later on today. Beside that his vitals are stable. He is feeling better clinically in terms of the shortness of breath. No pain in the chest. He has been maintaining normal sinus mechanism with his weight has came down significantly. On examination the lower extremity edema has improved significantly as well as well. 03/21/2023 Patient is status post cardiac catheterization on 03/11/2023 revealing 40-50% mid to distal left main stenosis, 50-60% mid LAD stenosis, 100% circumflex stenosis, and 50-60% mid RCA stenosis. The patient has required hemodialysis post cardiac catheterization. Patient examined this morning at the bedside. Patient's spouse is present. He is currently undergoing hemodialysis. He denies any chest pain or pressure. He does report shortness of breath. The patient is currently on 4L nasal cannula. PHYSICAL EXAM: VITAL SIGNS: Reviewed. GENERAL: Well-developed in no acute distress. HEENT: Head is normocephalic. Pupils are equal, round. Sclerae anicteric. Mucous membranes of the mouth are moist. Neck supple. No JVD or thyromegaly LUNGS: Respirations even and unlabored. Lungs essentially clear to auscultation bilaterally. HEART: Regular rate and rhythm. S1 and S2 heard. Systolic murmur noted. ABDOMEN: Soft. Nondistended. Nontender. EXTREMITIES: Normal range of motion. No clubbing or cyanosis. Peripheral pulses intact. No lower extremity edema NEUROLOGIC: Awake and alert. Oriented x 3. Objective - Vital Signs Vital signs: Vital Signs Temp 97.8 F 03/22/23 16:50 Pulse 69 03/22/23 16:50 Resp 19 03/22/23 16:50 BP 149/77 03/22/23 16:50 Pulse Ox 94 L 03/22/23 11:15 FiO2 Intake & Output 03/21/23 03/22/23 03/22/23 18:59 06:59 18:59 Intake Total 500 540 Output Total 3650 150 3300 Balance -3150 -150 -2760 Weight 101.9 kg Intake: Oral 240 Hemodialysis 500 300 Output: Urine 150 150 Hemodialysis 3500 3300 Other: Voiding Method Indwelling Catheter Indwelling Catheter Indwelling Catheter - Labs CBC & Chem 7: 03/21/23 07:12 03/21/23 07:12 Labs: Abnormal Lab Results - Last 24 Hours (Table) 03/21/23 03/22/23 03/22/23 Range/Units 21:07 06:06 11:47 POC Glucose (mg/dL) 215 H 175 H 228 H (70-110) mg/dL 03/22/23 Range/Units 16:23 POC Glucose (mg/dL) 111 H (70-110) mg/dL
[2023-03-22] MEDS ORDERED: carvediloL 6.25 MG TAB PO ONE (17:45)
[2023-03-22] MEDS: NON FORMULARY DRUG (Rosuvastatin Calcium [Crestor] 40 MG Tablet) PO SCH (20:08)
[2023-03-22 20:34] LABS: Glucose,Whole Blood 286 mg/dL (70-110)
[2023-03-22] MEDS: PRAMIPEXOLE 0.5 MG TAB PO SCH (22:40)
[2023-03-23] MEDS: HEPARIN SODIUM,PORCINE 5,000 UNIT/ML 1 ML VIAL SQ SCH ×3 (00:14→17:15)
[2023-03-23 05:57] LABS: Glucose,Whole Blood 210 mg/dL (70-110)
[2023-03-23] MEDS: carvediloL 12.5 MG TAB PO SCH ×2 (06:37→17:15)
[2023-03-23] MEDS: INSULIN ASPART (NovoLOG) 100 UNIT/ML VIAL SQ SCH ×4 (06:37→20:33)
[2023-03-23] MEDS: SODIUM BICARBONATE TAB 650 MG TAB PO SCH ×2 (09:08→21:27)
[2023-03-23] MEDS: ESCITALOPRAM 10 MG TAB PO SCH (09:08)
[2023-03-23] MEDS: hydrALAZINE HCL 25 MG TAB PO SCH ×2 (09:08→21:27)
[2023-03-23] MEDS: amLODIPine 5 MG TAB PO SCH ×2 (09:08→21:27)
[2023-03-23] MEDS: ASPIRIN 81 MG PO SCH (09:08)
[2023-03-23] MEDS: EZETIMIBE 10 MG TAB PO SCH (09:08)
[2023-03-23] MEDS: FUROSEMIDE 10 MG/ML 10 ML VIAL IV SCH ×2 (09:08→21:26)
[2023-03-23] MEDS: RANOLAZINE 500 MG TAB.ER.12H PO SCH ×2 (09:08→21:27)
[2023-03-23] MEDS: LORATADINE 10 MG TAB PO SCH (09:08)
[2023-03-23] MEDS: ISOSORBIDE MONONITRATE ER 60 MG TAB.ER.24H PO SCH (09:08)
[2023-03-23] MEDS: SODIUM FERRIC GLUCONAT-SUCROSE 125 MG in SODIUM CHLORIDE 0.9% 100 ML IVPB SCH (09:09)
[2023-03-23] MEDS: SYMBICORT 80-4.5 MCG INHALER INHALATION SCH ×2 (09:35→21:38)
[2023-03-23 12:09] LABS: Glucose,Whole Blood 200 mg/dL (70-110)
--- NOTE | 2023-03-23 13:01 | P.PN ---
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 Patient follows in the office with Dr. Castle. We have been asked to see the patient in consultation for chest pain. Patient examined at the bedside. Patient states yesterday he was outside doing some yardwork work when he began to have chest pain. He also reports having shortness of breath. He went inside and took a nitro which did not help his pain so he took a second nitro which eased up his pain but he continued to report some soreness in his chest. He states he took a nap on the couch and when he woke up he went outside to cut some wood pallets. He came back inside and told his that felt like somebody had a belt around his chest and was tightening it. His gave him an additional nitro and called EMS. The patient currently denies any chest pain or pressure. He denies shortness of breath. Vital signs are stable. * EKG reveals sinus mechanism. Right bundle branch block. No signs of acute ischemia. * Chest xray bilateral hilar prominence could reflect enlargement of the main right and left pulmonary arteries indicating pulmonary arterial hypertension. * Laboratory data: WBC 5.5. Hemoglobin 12.8. Platelet count 191. Sodium 134. Potassium 4.7. BUN 53. Creatinine 3.01. Troponin negative 3. * Current home cardiac medications include hydralazine 25 mg twice a day, amlodipine 5 mg twice a day, Crestor 40 mg at night, Ranexa 500 mg twice a day, Imdur 60 mg twice a day, Lasix 40 mg daily, Zetia 10 mg daily, aspirin 81 mg daily * Most recent echocardiogram obtained in December 2022 revealed ejection fraction 50-55%, [id number] mitral regurgitation, mild aortic stenosis March 192022 The patient was evaluated this morning. He continues to be short of breath and requiring high flow oxygen. The chest x-ray showed pulmonary vascular congestions. No evidence of pneumonia on the x-ray. The lower extremity edema has improved. He underwent dialysis yesterday and he is going to have dialysis today. With yesterday dialysis 2 L of fluid were taken out. He is not on any diuretics because he is not responding well to IV diuretics. 03/20/2020 The patient was seen and evaluated this morning he continues to be hypoxic requiring high flow oxygen. 3 L of fluid were taken by dialysis yesterday and the plan to undergo another dialysis later on today. Beside that his vitals are stable. He is feeling better clinically in terms of the shortness of breath. No pain in the chest. He has been maintaining normal sinus mechanism with his weight has came down significantly. On examination the lower extremity edema has improved significantly as well as well. 03/21/2023 Patient is status post cardiac catheterization on 03/11/2023 revealing 40-50% mid to distal left main stenosis, 50-60% mid LAD stenosis, 100% circumflex stenosis, and 50-60% mid RCA stenosis. The patient has required hemodialysis post cardiac catheterization. Patient examined this morning at the bedside. Patient's spouse is present. He is currently undergoing hemodialysis. He denies any chest pain or pressure. He does report shortness of breath. The patient is currently on 4L nasal cannula. 03/22/2023 Patient was evaluated bedside this morning. He reports that his symptoms are much better as compared to yesterday in terms of shortness of breath. He complains of chronic lethargically which has not changed much. Patient has not had substernal chest pain since last 2 days on my evaluation. I discussed the findings of his cardiac catheterization by Dr. Castle. After discussion we concluded that we will proceed with medical management with intensification of his antianginals and fluid optimization by hemodialysis. Patient has chronic complex atherosclerosis with difficult anatomy. If patient continues to have recurrent CHF exacerbations or anginal symptoms, we would proceed with a heart catheterization. 03/23/2023 Patient examined this afternoon at the bedside. Patient denies chest pain or pressure. He denies shortness of breath. Case was discussed with patient's primary name plate stamping machine operator yesterday and plans are for medical management at this time. Patient remains on IV Lasix 80 mg every 12 hours per nephrology. Vital signs stable. Blood pressure 144/66. PHYSICAL EXAM: VITAL SIGNS: Reviewed. GENERAL: Well-developed in no acute distress. HEENT: Head is normocephalic. Pupils are equal, round. Sclerae anicteric. Mucous membranes of the mouth are moist. Neck supple. No JVD or thyromegaly LUNGS: Respirations even and unlabored. Lungs essentially clear to auscultation bilaterally. HEART: Regular rate and rhythm. S1 and S2 heard. Systolic murmur noted. ABDOMEN: Soft. Nondistended. Nontender. EXTREMITIES: Normal range of motion. No clubbing or cyanosis. Peripheral pulses intact. No lower extremity edema NEUROLOGIC: Awake and alert. Oriented x 3. ASSESSMENT: Chest pain, troponins negative 3 Coronary artery disease Acute on chronic kidney disease, on hemodialysis Mild nonischemic cardiomyopathy Chronic heart failure with preserved ejection fraction, currently euvolemic Hypertension Hyperlipidemia Diabetes Neuropathy Obstructive sleep apnea Chronic fatigue PLAN: Continue current cardiac medications Continue IV Lasix per nephrology Carvedilol increased to 12.5 mg twice a day Continue with medical management at this time. No plans for cardiac catheterization as discussed yesterday with his primary name plate stamping machine operator, Dr. Castle. Patient and spouse are in agreement. Further recommendations pending patient's course Nurse practitioner note has been reviewed by physician. Signing provider agrees with the documented findings, assessment, and plan of care. Dr. Justice's Addendum I discussed the findings of his cardiac catheterization by Dr. Castle. After discussion we concluded that we will proceed with medical management with intensification of his antianginals and fluid optimization by hemodialysis. Patient has chronic complex atherosclerosis with difficult anatomy. If patient continues to have recurrent CHF exacerbations or anginal symptoms, we would proceed with a heart catheterization. I have personally seen and examined the patient. I have personally performed all the components of medical care documented above including detailed histoy, review of system, physican exam, and formulating the assessment and plan. I have personally reviewed the relevant labs, imaging and other diagnostics. I have discussed this in detail with my FLAT KNITTER who has helped me with this documentation. I have carefully reviewed this document before finalizing. Thank you for letting cardiology team participating in this patient's care. Dr. Sumit Justice MD Cardiovascular Disease Objective - Vital Signs Vital signs: Vital Signs Temp 98.8 F 03/23/23 08:00 Pulse 74 03/23/23 08:00 Resp 18 03/23/23 08:00 BP 144/66 03/23/23 08:00 Pulse Ox 97 03/23/23 09:37 FiO2 Intake & Output 03/22/23 03/23/23 03/23/23 18:59 06:59 18:59 Intake Total 1018 Output Total 3450 100 Balance -2432 -100 Weight 100.7 kg Intake: Oral 718 Hemodialysis 300 Output: Urine 150 100 Hemodialysis 3300 Other: Voiding Method Indwelling Catheter Indwelling Catheter Indwelling Catheter - Labs CBC & Chem 7: 03/24/23 09:45 03/21/23 07:12 Labs: Abnormal Lab Results - Last 24 Hours (Table) 03/22/23 03/22/23 03/22/23 Range/Units 11:47 16:23 20:33 POC Glucose (mg/dL) 228 H 111 H 286 H (70-110) mg/dL 03/23/23 Range/Units 05:55 POC Glucose (mg/dL) 210 H (70-110) mg/dL
--- NOTE | 2023-03-23 14:33 | P.PN ---
Subjective Progress Note Date: 03/23/23 Patient is a 72-year-old male with chronic kidney disease use, diabetes mellitus insulin requiring, coronary artery disease status post stenting, and hypertension who presented to the hospital due to exertional dyspnea and chest pain. He was admitted actually admitted for possible acute coronary syndrome. Cardiology was consulted. He underwent cardiac catheterization which showed c oronary artery disease with a 40-50% mid distal left main stenosis, 50-60% mid LAD stenosis, 100% circumflex stenosis, and 50-60% mild RCA stenosis. Cath felt be fairly similar from 2017 was some progression of the left main disease. However, high risk for conitnued contrast exposure and recommends were made for initial conservative management wtih conitnued monitoring. His renal function, nephrology was following. Overnight on 03/18 patient developed worsening respiratory distress requiring increase of his oxygen from 6 to 15 L nasal cannula. Patient seen and examined at bedside. His O2 requirement is down to 2L. 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 Non-anion gap metabolic acidosis secondary to chronic kidney disease Hypertensive urgency with improved blood pressures Acute hypoxic respiratory failure that is worsening -Echocardiogram from 01/21 shows ejection fraction 50-55% - 1st HD 03/18/23 - 2L UF, 2nd 03/19/23 - 3L UF, 3rd 03/20/23 - 2L UF, 4th 03/21 - plan for 3L UF today -Discussed case with Cardiology: They do think that the lesion should be heavily considered for PCI, and will make a final decision in coming days -Nephrology note: Hemodialysis today and tomorrow, continue Lasix, continue iron -Norvasc 5 mg twice daily, Coreg 3.125 mg twice daily, hydralazine 25 mg twice daily, Crestor 40 mg at night -Aspirin 81 mg daily -Zetia 10 mg daily -Lasix infusion 10 mg/h ordered by nephrology -Imdur 60 mg twice daily, propranolol 20 mg daily, Ranexa thousand milligrams twice daily -Sodium bicarb 1300 mg twice daily Diabetes mellitus type 2 with hypogycemia -Pts been having BS in on his continuous glucose monitor. -Basal rates reviewed from his insulin pump [id number]: 1 unit/hr [id number]: 1.25 u/hr [id number]: 1.6 units/hr [id number]: 1.6 units/hr [id number]: 1.25 units/hr - He follows with Dr. Vigil of endocrinology [phone] - could consider calling during business hours to see if he has suggestions to reprogram insulin pump as patient likely will need rehab and wont be able to go for awhile. Likely it is related to his decreased appetite and starting HD - [employer] rep who whould be able to reprogram - asst [phone] - cell [phone] -Patient has insulin pump in place and have bolusing appropriately with meals -Continue to follow blood sugars Imaging: VQ scan- no PE B/l LE venous dopplers- No DVT Data Review: Vital signs reviewed temperature 98.0, pulse 73, blood pressure 148/80, O2 sat 97% on 6 L DVT prophylaxis: Heparin Anticipated discharge date: Pending clinical course Anticipated discharge place: Pending clinical course This dictation was prepared using [employer] voice recognition software. Though every attempt is made to correct errors during dictation some may still exist. Objective - Vital Signs Vital signs: Vital Signs Temp 98.8 F 03/23/23 08:00 Pulse 70 03/23/23 11:10 Resp 17 03/23/23 11:10 BP 128/60 03/23/23 11:10 Pulse Ox 94 L 03/23/23 11:10 FiO2 Intake & Output 03/22/23 03/23/23 03/23/23 18:59 06:59 18:59 Intake Total 1018 Output Total 3450 100 Balance -2432 -100 Weight 100.7 kg Intake: Oral 718 Hemodialysis 300 Output: Urine 150 100 Hemodialysis 3300 Other: Voiding Method Indwelling Catheter Indwelling Catheter Indwelling Catheter - Labs CBC & Chem 7: 03/21/23 07:12 03/21/23 07:12 Labs: Abnormal Lab Results - Last 24 Hours (Table) 03/22/23 03/22/23 03/23/23 Range/Units 16:23 20:33 05:55 POC Glucose (mg/dL) 111 H 286 H 210 H (70-110) mg/dL 03/23/23 Range/Units 11:50 POC Glucose (mg/dL) 200 H (70-110) mg/dL
--- NOTE | 2023-03-23 15:26 | P.PN ---
Subjective Patient is seen in follow-up for acute kidney injury on chronic kidney disease. Started on hemodialysis 03/18/2023. Currently on 2 L nasal cannula. Undergoing daily dialysis most of ultrafiltration. Hemodynamically stable. Remains oliguric. Vital signs are stable. General: No acute distress. HEENT: Head exam is unremarkable. On nasal cannula. LUNGS: Scattered rhonchi. HEART: Rate and Rhythm are regular. ABDOMEN: Nontender. EXTREMITITES: 1+ edema. Objective - Vital Signs Vital signs: Vital Signs Temp 98.8 F 03/23/23 08:00 Pulse 70 03/23/23 11:10 Resp 17 03/23/23 11:10 BP 128/60 03/23/23 11:10 Pulse Ox 94 L 03/23/23 11:10 FiO2 Intake & Output 03/22/23 03/23/23 03/23/23 18:59 06:59 18:59 Intake Total 1018 Output Total 3450 100 Balance -2432 -100 Weight 100.7 kg Intake: Oral 718 Hemodialysis 300 Output: Urine 150 100 Hemodialysis 3300 Other: Voiding Method Indwelling Catheter Indwelling Catheter Indwelling Catheter - Labs CBC & Chem 7: 03/21/23 07:12 03/21/23 07:12 Labs: Abnormal Lab Results - Last 24 Hours (Table) 03/22/23 03/22/23 03/23/23 Range/Units 16:23 20:33 05:55 POC Glucose (mg/dL) 111 H 286 H 210 H (70-110) mg/dL 03/23/23 Range/Units 11:50 POC Glucose (mg/dL) 200 H (70-110) mg/dL Assessment and Plan Plan: Assessment: 1. Acute kidney injury secondary to ATN secondary to cardiorenal syndrome and further worsened with the use of IV contrast. Started on hemodialysis 03/18/2023. Oliguric. 2. Chronic kidney disease stage IV with baseline creatinine near 3 secondary to diabetic kidney disease. 3. Coronary disease status post cardiac catheterization 03/11/2023. 4. Volume overload. Improving with ultrafiltration. 5. Acute hypoxic respiratory failure. 6. Hypertension with chronic kidney disease. Stable. 7. Chronic kidney disease mineral bone disease maintained on calcitriol. 8. Metabolic acidosis secondary to chronic kidney disease maintained on oral bicarb. Improved. 9. Anemia of chronic kidney disease. Iron deficiency noted - status post IV iron. On Aranesp. Plan: Continue with daily dialysis and challenge ultrafiltration. Stop IV Lasix. Add torsemide 40 mg once daily. Phosphorus level 3.6 dated 03/19/2023. Outpatient dialysis to be set up by case checker. Patient and family prefer [facility]. Monitor for renal recovery.
--- NOTE | 2023-03-23 16:36 | P.PN ---
Subjective Progress Note Date: 03/23/23 I am seeing this patient in new consultation today 03/21/2023 for acute hypoxemic respiratory failure and fluid overload. Patient is a 72-year-old white male with past medical history significant for coronary artery disease and previous coronary stenting, hypertension, hyperlipidemia, chronic kidney disease stage IV, obstructive sleep apnea not compliant with CPAP, and is a remote ex- tobacco smoker. Patient presented to the emergency room back on March 09 chest pain that radiated to his left shoulder that occurred after some outside chores. He also had some shortness of breath and increased lower extremity swelling. The patient took 2 nitroglycerin tablets and came to the hospital. On March 11 the patient was taken to the cardiac Interpretive Program Coordinator and was found to have 40-50% mid distal left main stenosis, 50-60% mid LAD stenosis, 100% left circumflex stenosis, and 50-60% mid RCA stenosis. He had elevated left sided filling pressures. No cardiac intervention was performed at that time due to the risk of prolonged contrast-induced nephropathy. Patient's oxygen demands have progressively increased during the course of his stay. He did end up requiring hemodialysis, and had a right sided IJ permacath inserted on March 18, and has been receiving serial dialysis. We were finally consulted early this morning. He was apparently in some mild to moderate respiratory distress earlier. The patient is currently lying in bed, fatigued, on a 15 L nonrebreather. His SpO2 is 100%, and I was able to wean down FiO2 to 6 L high flow cannula. Most recent chest x-ray shows improved pulmonary vascular congestion. Ventilation/perfusion scan from 2 days ago showed no evidence of pulmonary embolism. ABG from 2 days ago shows a pO2 of 65, pCO2 of 39, pH of 7.41. This was done on a 15 L high flow cannula. Most recent CBC from 2 days ago shows a WBC count of 7.9, hemoglobin 10, hematocrit 29, platelets 95. Most recent BMP from 2 days ago shows a sodium 132, potassium 4, chloride 95, serum bicarb 24, BUN 50, creatinine 3.13, glucose 179. NT proBNP at this time was elevated at 18,500. Patient has an indwelling urine catheter, and is oliguric. His negative for COVID-19. Patient's prognosis is guarded. On today's evaluation of 03/22/2023, the patient is stable on 3 L of oxygen by n neris cannula and the current pulse ox is 97%. No cervical respiratory difficulties. No chest pain. The patient is not producing much of urine output and the patient is going to undergo another session of hemodialysis today. His last session was done yesterday and the patient was also infiltrated to a total of 3.5 L. No new labs from today. The patient is awake and alert and communicating. Family is at the bedside. He is on Lasix with limited urine output as mentioned. Nephrology is on the case. On today's evaluation of a 2022, the patient is scheduled to undergo another session of hemodialysis. His overnight was essentially uneventful. He remains on 3 L of oxygen by nasal cannula. He was feeling a bit fatigued and this morning he is feeling slightly more energetic. No other specific complaints for now. No chest pain. No shortness of breath. He remains on Lasix IV although his urine output remains low and poor. He was also on Demadex 40 mg by mouth daily. Nephrology is on the case. Rn Shift Mgr on the case. History of any chest pain. He is post cardiac catheterization, and no further interventions are scheduled or plan for the time being. Objective - Vital Signs Vital signs: Vital Signs Temp 98.8 F 03/23/23 08:00 Pulse 74 03/23/23 08:00 Resp 18 03/23/23 08:00 BP 144/66 03/23/23 08:00 Pulse Ox 97 03/23/23 09:37 FiO2 Intake & Output 03/22/23 03/23/23 03/23/23 18:59 06:59 18:59 Intake Total 1018 Output Total 3450 100 Balance -2432 -100 Weight 100.7 kg Intake: Oral 718 Hemodialysis 300 Output: Urine 150 100 Hemodialysis 3300 Other: Voiding Method Indwelling Catheter Indwelling Catheter Indwelling Catheter - Exam GENERAL EXAM: Alert, 72-year-old white male, fatigued but in no apparent distress. HEAD: Normocephalic and atraumatic EYES: Normal reaction of pupils, equal size. NOSE: Clear with pink turbinates. THROAT: No erythema or exudates. NECK: No masses, no JVD. CHEST: No chest wall deformity. LUNGS: Equal air entry with no crackles, wheeze, rhonchi or dullness. On 6 L/m nasal cannula. There is some accessory muscle use and tachypnea CVS: S1 and S2 normal with no audible murmur, regular rhythm. No extra heart sounds ABDOMEN: There is some mild abdominal distention, no hepatosplenomegaly, active bowel sounds, no guarding or rigidity. SPINE: No scoliosis or deformity SKIN: No rashes CENTRAL NERVOUS SYSTEM: No focal deficits, tone is normal in all 4 extremities. EXTREMITIES: There is mild nonpitting bilateral lower extremity edema. No c lubbing, or cyanosis. Peripheral pulses are intact. - Labs CBC & Chem 7: 03/21/23 07:12 03/21/23 07:12 Labs: Abnormal Lab Results - Last 24 Hours (Table) 03/22/23 03/22/23 03/22/23 Range/Units 11:47 16:23 20:33 POC Glucose (mg/dL) 228 H 111 H 286 H (70-110) mg/dL 03/23/23 Range/Units 05:55 POC Glucose (mg/dL) 210 H (70-110) mg/dL Assessment and Plan Assessment: Acute hypoxemic respiratory failure, secondary to fluid overload. Most recent chest x-ray shows improved pulmonary vascular congestion. Patient has been receiving hemodialysis daily for the last 2 days. Most recent echocardiogram from December, shows a preserved left ventricular systolic ejection fraction of 50-55% and mild to moderate mitral regurgitation. Acute on chronic kidney injury, now requiring serial hemodialysis, last session of hemodialysis was done yesterday and another session to be done today. Anion gap metabolic acidosis secondary to above, improved Coronary artery disease, status post cardiac catheterization on 03/11/2023 and was found to have 40-50% mid distal left main stenosis, 50-60% mid LAD stenosis, 100% left circumflex stenosis, and 50-60% mid RCA stenosis. With elevated left sided filling pressures. No cardiac intervention was performed at that time due to the risk of prolonged contrast-induced nephropathy. Mild intermittent bronchial asthma, stable Chronic kidney disease stage IV Type 2 diabetes mellitus, insulin-dependent Anemia of chronic disease Hyperlipidemia Essential hypertension Obstructive sleep apnea, noncompliant with home CPAP Remote ex-smoker Plan: Clinically stable and he shortness of breath is improving The patient is undergoing scheduled dialysis on a daily basis Clinically stable on 2 L of oxygen by nasal cannula Continue IV Lasix Continue Demadex Respiratory status is more stable compared to yesterday and the patient feels less short of breath Continue bronchodilators and Symbicort inhaler Heparin for DVT prophylaxis The patient will likely need long-term hemodialysis.. The permacath already been inserted in the right IJ.
[2023-03-23 17:03] LABS: Glucose,Whole Blood 222 mg/dL (70-110)
[2023-03-23 20:22] LABS: Glucose,Whole Blood 121 mg/dL (70-110)
[2023-03-23] MEDS: NON FORMULARY DRUG (Rosuvastatin Calcium [Crestor] 40 MG Tablet) PO SCH (21:10)
[2023-03-23] MEDS: PRAMIPEXOLE 0.5 MG TAB PO SCH (21:27)
[2023-03-24] MEDS: HEPARIN SODIUM,PORCINE 5,000 UNIT/ML 1 ML VIAL SQ SCH ×3 (00:12→18:06)
[2023-03-24] MEDS: carvediloL 12.5 MG TAB PO SCH ×2 (06:32→18:06)
[2023-03-24] MEDS: INSULIN ASPART (NovoLOG) 100 UNIT/ML VIAL SQ SCH ×4 (06:32→21:35)
[2023-03-24 06:48] LABS: Glucose,Whole Blood 184 mg/dL (70-110)
[2023-03-24] MEDS: SYMBICORT 80-4.5 MCG INHALER INHALATION SCH ×2 (09:21→21:50)
[2023-03-24] MEDS: ACETAMINOPHEN TAB 325 MG TAB PO PRN (09:50)
[2023-03-24 10:40] LABS: Basophils % (A) 1 %; Eosinophils % (A) 1 %; HCT 29.3 % (39.0-53.0); HGB 9.8 gm/dL (13.0-17.5); Lymphocytes # (A) 0.5 k/uL (1.0-4.8); Lymphocytes % (A) 9 %; MCH 30.9 pg (25.0-35.0); MCHC 33.3 g/dL (31.0-37.0); MCV 92.8 fL (80.0-100.0); Mean Platelet Volume 8.8; Monocytes # (A) 0.7 k/uL (0-1.0); Monocytes % (A) 12 %; Neutrophils # (A) 4.4 k/uL (1.3-7.7); Neutrophils % (A) 75 %; Platelet Count 167 k/uL (150-450); RBC 3.16 m/uL (4.30-5.90); RDW 13.5 % (11.5-15.5); WBC 5.9 k/uL (3.8-10.6)
--- NOTE | 2023-03-24 11:09 | US ---
EXAMINATION TYPE: US upper ext pseudo RT DATE OF EXAM: 03/24/2023 COMPARISON: NONE CLINICAL INDICATION: Male, 72 years old with history of right wrist - radial artery by angiogram acce ss si; Pt had heart cath, right wrist access. Right wrist is now swollen, red, and painful at area of access. TECHNIQUE: FINDINGS: Right radial artery appears atherosclerotic with high velocities. No evidence of pseudoane urysm. Incidentally, there is a superficial vein blood clot noted within the cephalic vein at the i st. The cephalic vein is compressible and free of thrombus at the mid forearm. IMPRESSION: 1. Atherosclerotic changes in the right radial artery with increased velocities seen. 2. SVT
--- NOTE | 2023-03-24 11:19 | P.PN ---
Subjective Patient is seen in follow-up for acute kidney injury on chronic kidney disease. Started on hemodialysis 03/18/2023. Currently on 2 L nasal cannula. Undergoing daily dialysis mostly for ultrafiltration. Hemodynamically stable. Remains oliguric. No changes overnight. Vital signs are stable. General: No acute distress. HEENT: Head exam is unremarkable. On nasal cannula. LUNGS: Scattered rhonchi. HEART: Rate and Rhythm are regular. ABDOMEN: Nontender. EXTREMITITES: 1+ edema. Objective - Vital Signs Vital signs: Vital Signs Temp 98.5 F 03/24/23 04:00 Pulse 68 03/24/23 04:00 Resp 20 03/24/23 04:00 BP 128/80 03/24/23 04:00 Pulse Ox 97 03/24/23 04:00 FiO2 Intake & Output 03/23/23 03/24/23 03/24/23 18:59 06:59 18:59 Intake Total 480 620 120 Output Total 200 3600 Balance 280 -2980 120 Weight 98.9 kg Intake: Oral 480 120 120 Hemodialysis 500 Output: Urine 200 100 Hemodialysis 3500 Other: Voiding Method Indwelling Catheter Indwelling Catheter # Bowel Movements 0 - Labs CBC & Chem 7: 03/24/23 09:45 03/21/23 07:12 Labs: Abnormal Lab Results - Last 24 Hours (Table) 03/23/23 03/23/23 03/23/23 Range/Units 11:50 16:46 20:21 RBC (4.30-5.90) m/uL Hgb (13.0-17.5) gm/dL Hct (39.0-53.0) % POC Glucose (mg/dL) 200 H 222 H 121 H (70-110) mg/dL 03/24/23 03/24/23 Range/Units 06:23 09:45 RBC 3.16 L (4.30-5.90) m/uL Hgb 9.8 L (13.0-17.5) gm/dL Hct 29.3 L (39.0-53.0) % POC Glucose (mg/dL) 184 H (70-110) mg/dL Assessment and Plan Plan: Assessment: 1. Acute kidney injury secondary to ATN secondary to cardiorenal syndrome and further worsened with the use of IV contrast. Started on hemodialysis 03/18/2023. Oliguric. 2. Chronic kidney disease stage IV with baseline creatinine near 3 secondary to diabetic kidney disease. 3. Coronary disease status post cardiac catheterization 03/11/2023. 4. Volume overload. Improving with ultrafiltration. 5. Acute hypoxic respiratory failure. 6. Hypertension with chronic kidney disease. Stable. 7. Chronic kidney disease mineral bone disease maintained on calcitriol. 8. Metabolic acidosis secondary to chronic kidney disease maintained on oral bicarb. Improved. 9. Anemia of chronic kidney disease. Iron deficiency noted - status post IV iron. On Aranesp. Plan: Currently seen while undergoing hemodialysis. Check chest x-ray tomorrow morning. Maintain torsemide. Phosphorus level 3.6 dated 03/19/2023. Outpatient dialysis to be set up by case liner. Patient and family prefer [facility] [place]. Monitor for renal recovery. Stop oral bicarb.
--- NOTE | 2023-03-24 11:21 | P.PN ---
Subjective Progress Note Date: 03/24/23 Patient is a 72-year-old male with chronic kidney disease use, diabetes mellitus insulin requiring, coronary artery disease status post stenting, and hypertension who presented to the hospital due to exertional dyspnea and chest pain. He was admitted actually admitted for possible acute coronary syndrome. Cardiology was consulted. He underwent cardiac catheterization which showed c oronary artery disease with a 40-50% mid distal left main stenosis, 50-60% mid LAD stenosis, 100% circumflex stenosis, and 50-60% mild RCA stenosis. Cath felt be fairly similar from 2017 was some progression of the left main disease. However, high risk for conitnued contrast exposure and recommends were made for initial conservative management wtih conitnued monitoring. His renal function, nephrology was following. Overnight on 03/18 patient developed worsening respiratory distress requiring increase of his oxygen from 6 to 15 L nasal cannula. Patient seen and examined at bedside. His O2 requirement is down to 2L. His edema is much better. He is complaining of right wrist pain at the site of the angiogram as well as at the site of attempted IVs yesterday. He has swelling and hyperesthesia of this area. 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 Non-anion gap metabolic acidosis secondary to chronic kidney disease Hypertensive urgency with improved blood pressures Acute hypoxic respiratory failure that is worsening Diabetes mellitus type 2 with hypogycemia Plan: -Echocardiogram from 01/21 shows ejection fraction 50-55% - 1st HD 03/18/23 - 2L UF, 2nd 03/19/23 - 3L UF, 3rd 03/20/23 - 2L UF, 4th 03/21 - 3L UF -Discussed case with Cardiology: They do not plan to intervene on the lesion at this time, but prefer to monitor for recovery and treat CAD medically at this point -Nephrology note: Hemodialysis today and tomorrow, lasix switched to torsemide, continue iron -Norvasc 5 mg twice daily, Coreg 3.125 mg twice daily, hydralazine 25 mg twice daily, Crestor 40 mg at night -Aspirin 81 mg daily -Zetia 10 mg daily -Lasix infusion 10 mg/h ordered by nephrology -Imdur 60 mg twice daily, propranolol 20 mg daily, Ranexa thousand milligrams twice daily -Sodium bicarb 1300 mg twice daily -Cefazolin (1g IV q8h) started for thrombophlebitis, ice packs requested Imaging: VQ scan- no PE B/l LE venous dopplers- No DVT Right Upper Ext US ordered to rule out aneurysm of angiogram site Data Review: Vital signs reviewed temperature 98.5, pulse 68, blood pressure 128/80, O2 sat 97% on 2 L DVT prophylaxis: Heparin Anticipated discharge date: 2-[address]: Home with home care Objective - Vital Signs Vital signs: Vital Signs Temp 98.5 F 03/24/23 04:00 Pulse 68 03/24/23 04:00 Resp 20 03/24/23 04:00 BP 128/80 03/24/23 04:00 Pulse Ox 97 03/24/23 04:00 FiO2 Intake & Output 03/23/23 03/24/23 03/24/23 18:59 06:59 18:59 Intake Total 480 620 120 Output Total 200 3600 Balance 280 -2980 120 Weight 98.9 kg Intake: Oral 480 120 120 Hemodialysis 500 Output: Urine 200 100 Hemodialysis 3500 Other: Voiding Method Indwelling Catheter Indwelling Catheter # Bowel Movements 0 - Labs CBC & Chem 7: 03/24/23 09:45 03/21/23 07:12 Labs: Abnormal Lab Results - Last 24 Hours (Table) 03/23/23 03/23/23 03/23/23 Range/Units 11:50 16:46 20:21 RBC (4.30-5.90) m/uL Hgb (13.0-17.5) gm/dL Hct (39.0-53.0) % POC Glucose (mg/dL) 200 H 222 H 121 H (70-110) mg/dL 03/24/23 03/24/23 Range/Units 06:23 09:45 RBC 3.16 L (4.30-5.90) m/uL Hgb 9.8 L (13.0-17.5) gm/dL Hct 29.3 L (39.0-53.0) % POC Glucose (mg/dL) 184 H (70-110) mg/dL
[2023-03-24 11:23] LABS: Glucose,Whole Blood 216 mg/dL (70-110)
[2023-03-24] MEDS: ISOSORBIDE MONONITRATE ER 60 MG TAB.ER.24H PO SCH (12:31)
[2023-03-24] MEDS: ASPIRIN 81 MG PO SCH (12:31)
[2023-03-24] MEDS: LORATADINE 10 MG TAB PO SCH (12:31)
[2023-03-24] MEDS: hydrALAZINE HCL 25 MG TAB PO SCH ×2 (12:31→21:35)
[2023-03-24] MEDS: amLODIPine 5 MG TAB PO SCH ×2 (12:31→21:35)
[2023-03-24] MEDS: RANOLAZINE 500 MG TAB.ER.12H PO SCH ×2 (12:31→21:35)
[2023-03-24] MEDS: ESCITALOPRAM 10 MG TAB PO SCH (12:31)
[2023-03-24] MEDS: TORSEMIDE 20 MG TAB PO SCH (12:32)
[2023-03-24] MEDS: EZETIMIBE 10 MG TAB PO SCH (12:32)
[2023-03-24] MEDS: SODIUM BICARBONATE TAB 650 MG TAB PO SCH (12:43)
--- NOTE | 2023-03-24 12:43 | P.PN ---
Subjective Progress Note Date: 03/24/23 I am seeing this patient in new consultation today 03/21/2023 for acute hypoxemic respiratory failure and fluid overload. Patient is a 72-year-old white male with past medical history significant for coronary artery disease and previous coronary stenting, hypertension, hyperlipidemia, chronic kidney disease stage IV, obstructive sleep apnea not compliant with CPAP, and is a remote ex- tobacco smoker. Patient presented to the emergency room back on March 09 chest pain that radiated to his left shoulder that occurred after some outside chores. He also had some shortness of breath and increased lower extremity swelling. The patient took 2 nitroglycerin tablets and came to the hospital. On March 11 the patient was taken to the cardiac Plastics Repairer and was found to have 40-50% mid distal left main stenosis, 50-60% mid LAD stenosis, 100% left circumflex stenosis, and 50-60% mid RCA stenosis. He had elevated left sided filling pressures. No cardiac intervention was performed at that time due to the risk of prolonged contrast-induced nephropathy. Patient's oxygen demands have progressively increased during the course of his stay. He did end up requiring hemodialysis, and had a right sided IJ permacath inserted on March 18, and has been receiving serial dialysis. We were finally consulted early this morning. He was apparently in some mild to moderate respiratory distress earlier. The patient is currently lying in bed, fatigued, on a 15 L nonrebreather. His SpO2 is 100%, and I was able to wean down FiO2 to 6 L high flow cannula. Most recent chest x-ray shows improved pulmonary vascular congestion. Ventilation/perfusion scan from 2 days ago showed no evidence of pulmonary embolism. ABG from 2 days ago shows a pO2 of 65, pCO2 of 39, pH of 7.41. This was done on a 15 L high flow cannula. Most recent CBC from 2 days ago shows a WBC count of 7.9, hemoglobin 10, hematocrit 29, platelets 95. Most recent BMP from 2 days ago shows a sodium 132, potassium 4, chloride 95, serum bicarb 24, BUN 50, creatinine 3.13, glucose 179. NT proBNP at this time was elevated at 18,500. Patient has an indwelling urine catheter, and is oliguric. His negative for COVID-19. Patient's prognosis is guarded. On today's evaluation of 03/22/2023, the patient is stable on 3 L of oxygen by n neris cannula and the current pulse ox is 97%. No cervical respiratory difficulties. No chest pain. The patient is not producing much of urine output and the patient is going to undergo another session of hemodialysis today. His last session was done yesterday and the patient was also infiltrated to a total of 3.5 L. No new labs from today. The patient is awake and alert and communicating. Family is at the bedside. He is on Lasix with limited urine output as mentioned. Nephrology is on the case. On today's evaluation of 2022, the patient is scheduled to undergo another session of hemodialysis. His overnight was essentially uneventful. He remains on 3 L of oxygen by nasal cannula. He was feeling a bit fatigued and this morning he is feeling slightly more energetic. No other specific complaints for now. No chest pain. No shortness of breath. He remains on Lasix IV although his urine output remains low and poor. He was also on Demadex 40 mg by mouth daily. Nephrology is on the case. Confidential Investigator on the case. History of any chest pain. He is post cardiac catheterization, and no further interventions are scheduled or plan for the time being. On today's evaluation of 03/24/2023, I'm seeing the patient for a follow-up. He is running a low-grade fever. [facility] The patient is otherwise resting comfortably. He remains on 2 L of oxygen by nasal cannula. No significant respiratory distress. He is undergoing hemodial ysis with ultrafiltration of 3.5 L of fluids. His white cell count of 5.9 with a hemoglobin of 9.8. Blood sugars at 216. Tomlinson catheter in place and the patient remains on oral Demadex and is currently off Lasix. No chest pain. Objective - Vital Signs Vital signs: Vital Signs Temp 98.5 F 03/24/23 04:00 Pulse 68 03/24/23 04:00 Resp 20 03/24/23 04:00 BP 128/80 03/24/23 04:00 Pulse Ox 97 03/24/23 04:00 FiO2 Intake & Output 03/23/23 03/24/23 03/24/23 18:59 06:59 18:59 Intake Total 480 620 Output Total 200 3600 Balance 280 -2980 Weight 98.9 kg Intake: Oral 480 120 Hemodialysis 500 Output: Urine 200 100 Hemodialysis 3500 Other: Voiding Method Indwelling Catheter Indwelling Catheter # Bowel Movements 0 - Exam GENERAL EXAM: Alert, 72-year-old white male, fatigued but in no apparent distress. HEAD: Normocephalic and atraumatic EYES: Normal reaction of pupils, equal size. NOSE: Clear with pink turbinates. THROAT: No erythema or exudates. NECK: No masses, no JVD. CHEST: No chest wall deformity. LUNGS: Equal air entry with no crackles, wheeze, rhonchi or dullness. On 6 L/m nasal cannula. There is some accessory muscle use and tachypnea CVS: S1 and S2 normal with no audible murmur, regular rhythm. No extra heart sounds ABDOMEN: There is some mild abdominal distention, no hepatosplenomegaly, active bowel sounds, no guarding or rigidity. SPINE: No scoliosis or deformity SKIN: No rashes CENTRAL NERVOUS SYSTEM: No focal deficits, tone is normal in all 4 extremities. EXTREMITIES: There is mild nonpitting bilateral lower extremity edema. No clubbing, or cyanosis. Peripheral pulses are intact. - Labs CBC & Chem 7: 03/24/23 09:45 03/21/23 07:12 Labs: Abnormal Lab Results - Last 24 Hours (Table) 03/23/23 03/23/23 03/23/23 Range/Units 11:50 16:46 20:21 POC Glucose (mg/dL) 200 H 222 H 121 H (70-110) mg/dL 03/24/23 Range/Units 06:23 POC Glucose (mg/dL) 184 H (70-110) mg/dL Assessment and Plan Assessment: Acute hypoxemic respiratory failure, secondary to fluid overload. Most recent chest x-ray shows improved pulmonary vascular congestion. Patient has been receiving hemodialysis daily for the last 2 days. Most recent echocardiogram from December, shows a preserved left ventricular systolic ejection fraction of 50-55% and mild to moderate mitral regurgitation. Acute on chronic kidney injury, now requiring serial hemodialysis, and the patient is being dialyzed today with a goal of ultrafiltration of 3.5 L Anion gap metabolic acidosis secondary to above, improved Coronary artery disease, status post cardiac catheterization on 03/11/2023 and was found to have 40-50% mid distal left main stenosis, 50-60% mid LAD stenosis, 100% left circumflex stenosis, and 50-60% mid RCA stenosis. With elevated left sided filling pressures. No cardiac intervention was performed at that time due to the risk of prolonged contrast-induced nephropathy. Mild intermittent bronchial asthma, stable Chronic kidney disease stage IV Type 2 diabetes mellitus, insulin-dependent Anemia of chronic disease Hyperlipidemia Essential hypertension Obstructive sleep apnea, noncompliant with home CPAP Remote ex-smoker Fever, currently under investigation Plan: Obtain 2 sets of blood culture regarding his fever. The patient is now having and hemodynamic changes on leukocytosis Patient is currently off Lasix Clinically stable on 2 L of oxygen by nasal cannula Continue Demadex Respiratory status is more stable compared to yesterday and the patient feels less short of breath Continue bronchodilators and Symbicort inhaler Heparin for DVT prophylaxis The patient will likely need long-term hemodialysis.. The permacath already be en inserted in the right IJ. We'll monitor the blood culture and the fever pattern We'll follow
[2023-03-24 13:06] VITALS: BMI 33.1
--- NOTE | 2023-03-24 13:46 | P.PN ---
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 Patient follows in the office with Dr. Castle. We have been asked to see the patient in consultation for chest pain. Patient examined at the bedside. Patient states yesterday he was outside doing some yardwork work when he began to have chest pain. He also reports having shortness of breath. He went inside and took a nitro which did not help his pain so he took a second nitro which eased up his pain but he continued to report some soreness in his chest. He states he took a nap on the couch and when he woke up he went outside to cut some wood pallets. He came back inside and told his that felt like somebody had a belt around his chest and was tightening it. His gave him an additional nitro and called EMS. The patient currently denies any chest pain or pressure. He denies shortness of breath. Vital signs are stable. * EKG reveals sinus mechanism. Right bundle branch block. No signs of acute ischemia. * Chest xray bilateral hilar prominence could reflect enlargement of the main right and left pulmonary arteries indicating pulmonary arterial hypertension. * Laboratory data: WBC 5.5. Hemoglobin 12.8. Platelet count 191. Sodium 134. Potassium 4.7. BUN 53. Creatinine 3.01. Troponin negative 3. * Current home cardiac medications include hydralazine 25 mg twice a day, amlodipine 5 mg twice a day, Crestor 40 mg at night, Ranexa 500 mg twice a day, Imdur 60 mg twice a day, Lasix 40 mg daily, Zetia 10 mg daily, aspirin 81 mg daily * Most recent echocardiogram obtained in December 2022 revealed ejection fraction 50-55%, [id number] mitral regurgitation, mild aortic stenosis March 192022 The patient was evaluated this morning. He continues to be short of breath and requiring high flow oxygen. The chest x-ray showed pulmonary vascular congestions. No evidence of pneumonia on the x-ray. The lower extremity edema has improved. He underwent dialysis yesterday and he is going to have dialysis today. With yesterday dialysis 2 L of fluid were taken out. He is not on any diuretics because he is not responding well to IV diuretics. 03/20/2020 The patient was seen and evaluated this morning he continues to be hypoxic requiring high flow oxygen. 3 L of fluid were taken by dialysis yesterday and the plan to undergo another dialysis later on today. Beside that his vitals are stable. He is feeling better clinically in terms of the shortness of breath. No pain in the chest. He has been maintaining normal sinus mechanism with his weight has came down significantly. On examination the lower extremity edema has improved significantly as well as well. 03/21/2023 Patient is status post cardiac catheterization on 03/11/2023 revealing 40-50% mid to distal left main stenosis, 50-60% mid LAD stenosis, 100% circumflex stenosis, and 50-60% mid RCA stenosis. The patient has required hemodialysis post cardiac catheterization. Patient examined this morning at the bedside. Patient's spouse is present. He is currently undergoing hemodialysis. He denies any chest pain or pressure. He does report shortness of breath. The patient is currently on 4L nasal cannula. 03/22/2023 Patient was evaluated bedside this morning. He reports that his symptoms are much better as compared to yesterday in terms of shortness of breath. He complains of chronic lethargically which has not changed much. Patient has not had substernal chest pain since last 2 days on my evaluation. I discussed the findings of his cardiac catheterization by Dr. Castle. After discussion we concluded that we will proceed with medical management with intensification of his antianginals and fluid optimization by hemodialysis. Patient has chronic complex atherosclerosis with difficult anatomy. If patient continues to have recurrent CHF exacerbations or anginal symptoms, we would proceed with a heart catheterization. 03/23/2023 Patient examined this afternoon at the bedside. Patient denies chest pain or pressure. He denies shortness of breath. Case was discussed with patient's primary scalper operator yesterday and plans are for medical management at this time. Patient remains on IV Lasix 80 mg every 12 hours per nephrology. Vital signs stable. Blood pressure 144/66. Dr. Justice's Addendum I discussed the findings of his cardiac catheterization by Dr. Castle. After discussion we concluded that we will proceed with medical management with intensification of his antianginals and fluid optimization by hemodialysis. Patient has chronic complex atherosclerosis with difficult anatomy. If patient continues to have recurrent CHF exacerbations or anginal symptoms, we would proceed with a heart catheterization. 03/24/2023 Patient examined this morning at the bedside. Patients spouse present. Patient denies chest pain or pressure. Denies SOB. He is currently undergoing hemodialysis. PHYSICAL EXAM: VITAL SIGNS: Reviewed. GENERAL: Well-developed in no acute distress. HEENT: Head is normocephalic. Pupils are equal, round. Sclerae anicteric. Mucous membranes of the mouth are moist. Neck supple. No JVD or thyromegaly LUNGS: Respirations even and unlabored. Lungs essentially clear to auscultation bilaterally. HEART: Regular rate and rhythm. S1 and S2 heard. Systolic murmur noted. ABDOMEN: Soft. Nondistended. Nontender. EXTREMITIES: Normal range of motion. No clubbing or cyanosis. Peripheral pulses intact. No lower extremity edema NEUROLOGIC: Awake and alert. Oriented x 3. ASSESSMENT: Chest pain, troponins negative 3 Coronary artery disease Acute on chronic kidney disease, on hemodialysis Mild nonischemic cardiomyopathy Chronic heart failure with preserved ejection fraction, currently euvolemic Hypertension Hyperlipidemia Diabetes Neuropathy Obstructive sleep apnea Chronic fatigue PLAN: Continue current cardiac medications Continue with medical management at this time. No plans for cardiac catheterization as discussed yesterday with his primary scalper operator, Dr. Castle. Patient and spouse are in agreement. Patient is stable for discharge from a cardiac standpoint Patient to follow up post discharge with Dr. Castle Cardiology team will sign off. Thank you for the consult Nurse practitioner note has been reviewed by physician. Signing provider agrees with the documented findings, assessment, and plan of care. Objective - Vital Signs Vital signs: Vital Signs Temp 100.3 F H 03/24/23 08:00 Pulse 79 03/24/23 08:00 Resp 20 03/24/23 08:00 BP 161/68 03/24/23 08:00 Pulse Ox 95 03/24/23 08:00 FiO2 Intake & Output 03/23/23 03/24/23 03/24/23 18:59 06:59 18:59 Intake Total 480 620 120 Output Total 200 3600 Balance 280 -2980 120 Weight 98.9 kg 98.9 kg Intake: Oral 480 120 120 Hemodialysis 500 Output: Urine 200 100 Hemodialysis 3500 Other: Voiding Method Indwelling Catheter Indwelling Catheter Indwelling Catheter # Bowel Movements 0 - Labs CBC & Chem 7: 03/24/23 09:45 03/24/23 09:45 Labs: Abnormal Lab Results - Last 24 Hours (Table) 03/23/23 03/23/23 03/24/23 Range/Units 16:46 20:21 06:23 RBC (4.30-5.90) m/uL Hgb (13.0-17.5) gm/dL Hct (39.0-53.0) % Lymphocytes # (1.0-4.8) k/uL POC Glucose (mg/dL) 222 H 121 H 184 H (70-110) mg/dL 03/24/23 03/24/23 Range/Units 09:45 11:22 RBC 3.16 L (4.30-5.90) m/uL Hgb 9.8 L (13.0-17.5) gm/dL Hct 29.3 L (39.0-53.0) % Lymphocytes # 0.5 L (1.0-4.8) k/uL POC Glucose (mg/dL) 216 H (70-110) mg/dL
[2023-03-24 14:27] LABS: African American GFR (CKD) 17 (>60 ml/min/1.73 sqM); Anion Gap 13 mmol/L; Blood Urea Nitrogen 38 mg/dL (9-20); Carbon Dioxide 25 mmol/L (22-30); Chloride 90 mmol/L (98-107); Glucose 312 mg/dL (74-99); Non-African American GFR(CKD) 15 (>60 ml/min/1.73 sqM); Potassium 4.3 mmol/L (3.5-5.1); Sodium 128 mmol/L (137-145)
[2023-03-24 16:28] LABS: Glucose,Whole Blood 281 mg/dL (70-110)
[2023-03-24 19:54] LABS: Glucose,Whole Blood 260 mg/dL (70-110)
[2023-03-24] MEDS: NON FORMULARY DRUG (Rosuvastatin Calcium [Crestor] 40 MG Tablet) PO SCH (21:34)
[2023-03-24] MEDS: PRAMIPEXOLE 0.5 MG TAB PO SCH (21:35)
[2023-03-25] MEDS: HEPARIN SODIUM,PORCINE 5,000 UNIT/ML 1 ML VIAL SQ SCH ×4 (00:50→23:39)
[2023-03-25] MEDS: INSULIN ASPART (NovoLOG) 100 UNIT/ML VIAL SQ SCH ×5 (05:29→21:35)
[2023-03-25] MEDS: carvediloL 12.5 MG TAB PO SCH ×2 (05:29→17:33)
[2023-03-25 05:37] LABS: Glucose,Whole Blood 247 mg/dL (70-110)
[2023-03-25 08:34] LABS: Glucose,Whole Blood 294 mg/dL (70-110)
[2023-03-25] MEDS: SYMBICORT 80-4.5 MCG INHALER INHALATION SCH ×2 (08:42→21:25)
--- NOTE | 2023-03-25 09:10 | XR ---
EXAMINATION TYPE: XR chest 1V DATE OF EXAM: 03/25/2023 6:29 AM COMPARISON: Chest radiographs from 03/21/2023 TECHNIQUE: XR chest 1V Frontal view of the chest. CLINICAL INDICATION:Male, 72 years old with history of sob; FINDINGS: Lungs/Pleura: There is no evidence of pleural effusion, focal consolidation, or pneumothorax. Pulmonary vascularity: Pulmonary vascular congestion. Heart/mediastinum: Cardiomediastinal silhouette is unremarkable. Musculoskeletal: No acute osseous pathology. Right chest central venous catheter tip at the superior cavoatrial junction. IMPRESSION: Stable right support tube no evidence or pneumothorax. The remainder of the exam is unchanged with pulmonary edema
[2023-03-25] MEDS: ESCITALOPRAM 10 MG TAB PO SCH (09:15)
[2023-03-25] MEDS: ASPIRIN 81 MG PO SCH (09:15)
[2023-03-25] MEDS: LORATADINE 10 MG TAB PO SCH (09:15)
[2023-03-25] MEDS: EZETIMIBE 10 MG TAB PO SCH (09:15)
[2023-03-25] MEDS: hydrALAZINE HCL 25 MG TAB PO SCH ×2 (09:16→21:28)
[2023-03-25] MEDS: amLODIPine 5 MG TAB PO SCH ×2 (09:16→21:27)
[2023-03-25] MEDS: ISOSORBIDE MONONITRATE ER 60 MG TAB.ER.24H PO SCH (09:16)
[2023-03-25] MEDS: RANOLAZINE 500 MG TAB.ER.12H PO SCH ×2 (09:17→21:27)
--- NOTE | 2023-03-25 11:15 | P.PN ---
Subjective Patient is seen in follow-up for acute kidney injury on chronic kidney disease. Started on hemodialysis 03/18/2023. Currently on 4 L nasal cannula. Undergoing daily dialysis this week for ultrafiltration. Hemodynamically stable. Remains oliguric. No changes overnight. Vital signs are stable. General: No acute distress. HEENT: Head exam is unremarkable. On nasal cannula. LUNGS: Scattered rhonchi. HEART: Rate and Rhythm are regular. ABDOMEN: Nontender. EXTREMITITES: 1+ edema. Objective - Vital Signs Vital signs: Vital Signs Temp 99.8 F H 03/25/23 00:00 Pulse 73 03/25/23 00:00 Resp 18 03/25/23 00:00 BP 148/70 03/25/23 00:00 Pulse Ox 97 03/25/23 00:00 FiO2 Intake & Output 03/24/23 03/25/23 03/25/23 18:59 06:59 18:59 Intake Total 760 120 240 Output Total 1401 Balance -641 120 240 Weight 98.9 kg Intake: Intake, IV Titration 100 Amount ceFAZolin 1,000 mg In 100 Sodium Chloride 0.9% 50 ml @ 100 mls/hr IVPB Q8HR [facility] Rx#:[id number] Oral 360 120 240 Hemodialysis 300 Output: Urine 275 Hemodialysis 1126 Other: Voiding Method Indwelling Catheter Indwelling Catheter - Labs CBC & Chem 7: 03/24/23 09:45 03/24/23 09:45 Labs: Abnormal Lab Results - Last 24 Hours (Table) 03/24/23 03/24/23 03/24/23 Range/Units 09:45 09:45 11:22 Lymphocytes # 0.5 L (1.0-4.8) k/uL Sodium 128 L (137-145) mmol/L Chloride 90 L (98-107) mmol/L BUN 38 H (9-20) mg/dL Creatinine 3.74 H (0.66-1.25) mg/dL Glucose 312 H (74-99) mg/dL POC Glucose (mg/dL) 216 H (70-110) mg/dL Calcium 8.0 L (8.4-10.2) mg/dL 03/24/23 03/24/23 03/25/23 Range/Units 16:25 19:53 05:36 Lymphocytes # (1.0-4.8) k/uL Sodium (137-145) mmol/L Chloride (98-107) mmol/L BUN (9-20) mg/dL Creatinine (0.66-1.25) mg/dL Glucose (74-99) mg/dL POC Glucose (mg/dL) 281 H 260 H 247 H (70-110) mg/dL Calcium (8.4-10.2) mg/dL 03/25/23 Range/Units 08:32 Lymphocytes # (1.0-4.8) k/uL Sodium (137-145) mmol/L Chloride (98-107) mmol/L BUN (9-20) mg/dL Creatinine (0.66-1.25) mg/dL Glucose (74-99) mg/dL POC Glucose (mg/dL) 294 H (70-110) mg/dL Calcium (8.4-10.2) mg/dL Assessment and Plan Plan: Assessment: 1. Acute kidney injury secondary to ATN secondary to cardiorenal syndrome and further worsened with the use of IV contrast. Started on hemodialysis 03/18/2023. Oliguric. 2. Chronic kidney disease stage IV with baseline creatinine near 3 secondary to diabetic kidney disease. 3. Coronary disease status post cardiac catheterization 03/11/2023. 4. Volume overload. Improving with ultrafiltration. 5. Acute hypoxic respiratory failure. 6. Hypertension with chronic kidney disease. Stable. 7. Chronic kidney disease mineral bone disease maintained on calcitriol. 8. Metabolic acidosis secondary to chronic kidney disease. Improved post-HD. 9. Anemia of chronic kidney disease. Iron deficiency noted - status post IV iron. On Aranesp. 10. Acute on chronic diastolic CHF. Plan: Hemodialysis today and again tomorrow as chest x-ray still suggestive of the fluid overload. Maintain torsemide. Phosphorus level 3.6 dated 03/19/2023. Outpatient dialysis to be set up by supervisor case loading. Patient and family prefer [facility]. Monitor for renal recovery.
[2023-03-25 11:39] LABS: Glucose,Whole Blood 294 mg/dL (70-110)
[2023-03-25 12:26] LABS: African American GFR (CKD) 16 (>60 ml/min/1.73 sqM); Anion Gap 13 mmol/L; Blood Urea Nitrogen 47 mg/dL (9-20); Calcium 7.9 mg/dL (8.4-10.2); Carbon Dioxide 24 mmol/L (22-30); Chloride 88 mmol/L (98-107); Glucose 318 mg/dL (74-99); Magnesium 1.9 mg/dL (1.6-2.3); Non-African American GFR(CKD) 14 (>60 ml/min/1.73 sqM); Potassium 4.4 mmol/L (3.5-5.1); Sodium 125 mmol/L (137-145)
[2023-03-25 13:45] LABS: HGB 9.8 gm/dL (13.0-17.5); Hypochromasia Slight; MCH 29.9 pg (25.0-35.0); MCHC 31.6 g/dL (31.0-37.0); MCV 94.5 fL (80.0-100.0); Mean Platelet Volume 9.9; Platelet Count 186 k/uL (150-450); RBC 3.28 m/uL (4.30-5.90); RDW 13.4 % (11.5-15.5); WBC 5.5 k/uL (3.8-10.6)
--- NOTE | 2023-03-25 13:59 | P.PN ---
Subjective Progress Note Date: 03/25/23 I am seeing this patient in new consultation today 03/21/2023 for acute hypoxemic respiratory failure and fluid overload. Patient is a 72-year-old white male with past medical history significant for coronary artery disease and previous coronary stenting, hypertension, hyperlipidemia, chronic kidney disease stage IV, obstructive sleep apnea not compliant with CPAP, and is a remote ex- tobacco smoker. Patient presented to the emergency room back on March 09 chest pain that radiated to his left shoulder that occurred after some outside chores. He also had some shortness of breath and increased lower extremity swelling. The patient took 2 nitroglycerin tablets and came to the hospital. On March 11 the patient was taken to the cardiac Biotech Production Specialist and was found to have 40-50% mid distal left main stenosis, 50-60% mid LAD stenosis, 100% left circumflex stenosis, and 50-60% mid RCA stenosis. He had elevated left sided filling pressures. No cardiac intervention was performed at that time due to the risk of prolonged contrast-induced nephropathy. Patient's oxygen demands have progressively increased during the course of his stay. He did end up requiring hemodialysis, and had a right sided IJ permacath inserted on March 18, and has been receiving serial dialysis. We were finally consulted early this morning. He was apparently in some mild to moderate respiratory distress earlier. The patient is currently lying in bed, fatigued, on a 15 L nonrebreather. His SpO2 is 100%, and I was able to wean down FiO2 to 6 L high flow cannula. Most recent chest x-ray shows improved pulmonary vascular congestion. Ventilation/perfusion scan from 2 days ago showed no evidence of pulmonary embolism. ABG from 2 days ago shows a pO2 of 65, pCO2 of 39, pH of 7.41. This was done on a 15 L high flow cannula. Most recent CBC from 2 days ago shows a WBC count of 7.9, hemoglobin 10, hematocrit 29, platelets 95. Most recent BMP from 2 days ago shows a sodium 132, potassium 4, chloride 95, serum bicarb 24, BUN 50, creatinine 3.13, glucose 179. NT proBNP at this time was elevated at 18,500. Patient has an indwelling urine catheter, and is oliguric. His negative for COVID-19. Patient's prognosis is guarded. On today's evaluation of 03/22/2023, the patient is stable on 3 L of oxygen by n neris cannula and the current pulse ox is 97%. No cervical respiratory difficulties. No chest pain. The patient is not producing much of urine output and the patient is going to undergo another session of hemodialysis today. His last session was done yesterday and the patient was also infiltrated to a total of 3.5 L. No new labs from today. The patient is awake and alert and communicating. Family is at the bedside. He is on Lasix with limited urine output as mentioned. Nephrology is on the case. On today's evaluation of 2022, the patient is scheduled to undergo another session of hemodialysis. His overnight was essentially uneventful. He remains on 3 L of oxygen by nasal cannula. He was feeling a bit fatigued and this morning he is feeling slightly more energetic. No other specific complaints for now. No chest pain. No shortness of breath. He remains on Lasix IV although his urine output remains low and poor. He was also on Demadex 40 mg by mouth daily. Nephrology is on the case. Plumbing Foreman on the case. History of any chest pain. He is post cardiac catheterization, and no further interventions are scheduled or plan for the time being. On today's evaluation of 03/24/2023, I'm seeing the patient for a follow-up. He is running a low-grade fever. The blood cultures were sent off the permacath. The patient is otherwise resting comfortably. He remains on 2 L of oxygen by nasal cannula. No significant respiratory distress. He is undergoing hemodial ysis with ultrafiltration of 3.5 L of fluids. His white cell count of 5.9 with a hemoglobin of 9.8. Blood sugars at 216. Tomlinson catheter in place and the patient remains on oral Demadex and is currently off Lasix. No chest pain. 03/25/2023, I'm seeing the patient for a follow-up. The patient was having low- grade fever yesterday. The patient was found to have gram-positive cocci in clusters. Note that he had a recent permacath insertion. The patient is undergoing dialysis and his last dialysis session was yesterday. No dialysis is scheduled for today. The patient is currently afebrile. The patient was started on IV cefazolin. He is hemodynamically stable. He is on 2 L of oxygen by nasal cannula with a pulse ox of 97%. Is able to sit up on a chair. No major edema lower extremities. No shortness of breath. Mental status is appropriate. The echoes of 5.5 with a hemoglobin of 9.8. BUN is at 47 with a creatinine of 3.9 and a sodium level is at 125. Potassium levels at 4.4. Objective - Vital Signs Vital signs: Vital Signs Temp 99.8 F H 03/25/23 00:00 Pulse 73 03/25/23 00:00 Resp 18 03/25/23 00:00 BP 148/70 03/25/23 00:00 Pulse Ox 97 03/25/23 00:00 FiO2 Intake & Output 03/24/23 03/25/23 03/25/23 18:59 06:59 18:59 Intake Total 760 120 240 Output Total 1401 Balance -641 120 240 Weight 98.9 kg Intake: Intake, IV Titration 100 Amount ceFAZolin 1,000 mg In 100 Sodium Chloride 0.9% 50 ml @ 100 mls/hr IVPB Q8HR [facility] Rx#:[id number] Oral 360 120 240 Hemodialysis 300 Output: Urine 275 Hemodialysis 1126 Other: Voiding Method Indwelling Catheter Indwelling Catheter - Exam GENERAL EXAM: Alert, 72-year-old white male, fatigued but in no apparent distress. HEAD: Normocephalic and atraumatic EYES: Normal reaction of pupils, equal size. NOSE: Clear with pink turbinates. THROAT: No erythema or exudates. NECK: No masses, no JVD. CHEST: No chest wall deformity. LUNGS: Equal air entry with no crackles, wheeze, rhonchi or dullness. On 6 L/m nasal cannula. There is some accessory muscle use and tachypnea CVS: S1 and S2 normal with no audible murmur, regular rhythm. No extra heart sounds ABDOMEN: There is some mild abdominal distention, no hepatosplenomegaly, active bowel sounds, no guarding or rigidity. SPINE: No scoliosis or deformity SKIN: No rashes CENTRAL NERVOUS SYSTEM: No focal deficits, tone is normal in all 4 extremities. EXTREMITIES: There is mild nonpitting bilateral lower extremity edema. No clubbing, or cyanosis. Peripheral pulses are intact. - Labs CBC & Chem 7: 03/25/23 10:09 03/25/23 10:09 Labs: Abnormal Lab Results - Last 24 Hours (Table) 03/24/23 03/24/23 03/24/23 Range/Units 09:45 09:45 11:22 Lymphocytes # 0.5 L (1.0-4.8) k/uL Sodium 128 L (137-145) mmol/L Chloride 90 L (98-107) mmol/L BUN 38 H (9-20) mg/dL Creatinine 3.74 H (0.66-1.25) mg/dL Glucose 312 H (74-99) mg/dL POC Glucose (mg/dL) 216 H (70-110) mg/dL Calcium 8.0 L (8.4-10.2) mg/dL 03/24/23 03/24/23 03/25/23 Range/Units 16:25 19:53 05:36 Lymphocytes # (1.0-4.8) k/uL Sodium (137-145) mmol/L Chloride (98-107) mmol/L BUN (9-20) mg/dL Creatinine (0.66-1.25) mg/dL Glucose (74-99) mg/dL POC Glucose (mg/dL) 281 H 260 H 247 H (70-110) mg/dL Calcium (8.4-10.2) mg/dL 03/25/23 Range/Units 08:32 Lymphocytes # (1.0-4.8) k/uL Sodium (137-145) mmol/L Chloride (98-107) mmol/L BUN (9-20) mg/dL Creatinine (0.66-1.25) mg/dL Glucose (74-99) mg/dL POC Glucose (mg/dL) 294 H (70-110) mg/dL Calcium (8.4-10.2) mg/dL Assessment and Plan Assessment: Acute hypoxemic respiratory failure, secondary to fluid overload. Most recent chest x-ray shows improved pulmonary vascular congestion. Patient has been receiving hemodialysis daily for the last 2 days. Most recent echocardiogram from December, shows a preserved left ventricular systolic ejection fraction of 50-55% and mild to moderate mitral regurgitation. Acute on chronic kidney injury, now requiring serial hemodialysis, and the patient had a dialysis yesterday with a total of 3.5 L of ultrafiltration Bacteremia with gram-positive cocci in clusters, rule out staphylococcal bacteremia. The patient is a permacath that was recently inserted. Is currently undergoing hemodialysis. The patient is currently on IV cefazolin. He is currently afebrile and hemodynamically stable. Anion gap metabolic acidosis secondary to above, improved Coronary artery disease, status post cardiac catheterization on 03/11/2023 and was found to have 40-50% mid distal left main stenosis, 50-60% mid LAD stenosis, 100% left circumflex stenosis, and 50-60% mid RCA stenosis. With elevated left sided filling pressures. No cardiac intervention was performed at that time due to the risk of prolonged contrast-induced nephropathy. Mild intermittent bronchial asthma, stable Chronic kidney disease stage IV Type 2 diabetes mellitus, insulin-dependent Anemia of chronic disease Hyperlipidemia Essential hypertension Obstructive sleep apnea, noncompliant with home CPAP Remote ex-smoker Fever, currently under investigation, rule out underlying bacteremia and sepsis with gram-positive cocci Hyponatremia, the findings on the case. Plan: Monitor the fever pattern Continue IV cefazolin Awaiting final cultures from the blood and the primary cultures are positive for gram-positive cocci Patient is currently off Lasix Clinically stable on 2 L of oxygen by nasal cannula Respiratory status is stable and chest x-ray findings are stable and the patient has some minimal residual interstitial edema Continue Demadex Respiratory status is more stable compared to yesterday and the patient feels less short of breath Continue bronchodilators and Symbicort inhaler Heparin for DVT prophylaxis The patient will likely need long-term hemodialysis.. The permacath already been inserted in the right IJ. The exit site is clean We'll monitor the blood culture and the fever pattern We'll follow
--- NOTE | 2023-03-25 14:56 | P.PN ---
Subjective Progress Note Date: 03/25/23 Patient is a 72-year-old male with chronic kidney disease use, diabetes mellitus insulin requiring, coronary artery disease status post stenting, and hypertension who presented to the hospital due to exertional dyspnea and chest pain. He was admitted actually admitted for possible acute coronary syndrome. Cardiology was consulted. He underwent cardiac catheterization which showed c oronary artery disease with a 40-50% mid distal left main stenosis, 50-60% mid LAD stenosis, 100% circumflex stenosis, and 50-60% mild RCA stenosis. Cath felt be fairly similar from 2017 was some progression of the left main disease. However, high risk for conitnued contrast exposure and recommends were made for initial conservative management wtih conitnued monitoring. His renal function, nephrology was following. Overnight on 03/18 patient developed worsening respiratory distress requiring increase of his oxygen from 6 to 15 L nasal cannula. Patient seen and examined at bedside. His O2 requirement is down to 2L. His edema is much better. wrist pain is better today, swelling still present. 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 Non-anion gap metabolic acidosis secondary to chronic kidney disease Hypertensive urgency with improved blood pressures Acute hypoxic respiratory failure that is worsening Diabetes mellitus type 2 with hypogycemia Plan: -Discussed case with Cardiology today for final recs: They do not plan to intervene on the lesion at this time, but prefer to monitor for recovery and treat CAD medically at this point -Discussed the case with nephrology: dialysis holiday today, then repeat again tuesday -Norvasc 5 mg twice daily, Coreg 3.125 mg twice daily, hydralazine 25 mg twice daily, Crestor 40 mg at night -Aspirin 81 mg daily -Zetia 10 mg daily -Imdur 60 mg twice daily, propranolol 20 mg daily, Ranexa thousand milligrams twice daily -Sodium bicarb 1300 mg twice daily -Cefazolin (1g IV q8h) started for thrombophlebitis, ice packs requested Imaging: VQ scan- no PE B/l LE venous dopplers- No DVT Right Upper Ext US ordered to rule out aneurysm of angiogram site - reviewed 03/25, was negative for aneurysm, showed superficial thrombophlebitis -Echocardiogram from 01/21 shows ejection fraction 50-55% Data Review: -BCx reviewed today - GPCs on gram stain, CoNS as discussed with pharmacist - 1st HD 03/18/23 - 2L UF, 2nd 03/19/23 - 3L UF, 3rd 03/20/23 - 2L UF, 4th 03/21 - 3L UF DVT prophylaxis: Heparin Anticipated discharge date: 2-[address]: Home with home care Objective - Vital Signs Vital signs: Vital Signs Temp 97.5 F L 03/25/23 12:00 Pulse 74 03/25/23 12:00 Resp 20 03/25/23 12:00 BP 134/64 03/25/23 12:00 Pulse Ox 97 03/25/23 12:00 FiO2 Intake & Output 03/24/23 03/25/23 03/25/23 18:59 06:59 18:59 Intake Total 760 120 598 Output Total 1401 Balance -641 120 598 Weight 98.9 kg Intake: Intake, IV Titration 100 Amount ceFAZolin 1,000 mg In 100 Sodium Chloride 0.9% 50 ml @ 100 mls/hr IVPB Q8HR [facility] Rx#:[id number] Oral 360 120 598 Hemodialysis 300 Output: Urine 275 Hemodialysis 1126 Other: Voiding Method Indwelling Catheter Indwelling Catheter Indwelling Catheter - Labs CBC & Chem 7: 03/25/23 10:09 03/25/23 10:09 Labs: Abnormal Lab Results - Last 24 Hours (Table) 03/24/23 03/24/23 03/25/23 Range/Units 16:25 19:53 05:36 RBC (4.30-5.90) m/uL Hgb (13.0-17.5) gm/dL Hct (39.0-53.0) % Sodium (137-145) mmol/L Chloride (98-107) mmol/L BUN (9-20) mg/dL Creatinine (0.66-1.25) mg/dL Glucose (74-99) mg/dL POC Glucose (mg/dL) 281 H 260 H 247 H (70-110) mg/dL Calcium (8.4-10.2) mg/dL 03/25/23 03/25/23 03/25/23 Range/Units 08:32 10:09 10:09 RBC 3.28 L (4.30-5.90) m/uL Hgb 9.8 L (13.0-17.5) gm/dL Hct 31.0 L (39.0-53.0) % Sodium 125 L (137-145) mmol/L Chloride 88 L (98-107) mmol/L BUN 47 H (9-20) mg/dL Creatinine 3.98 H (0.66-1.25) mg/dL Glucose 318 H (74-99) mg/dL POC Glucose (mg/dL) 294 H (70-110) mg/dL Calcium 7.9 L (8.4-10.2) mg/dL 03/25/23 Range/Units 11:37 RBC (4.30-5.90) m/uL Hgb (13.0-17.5) gm/dL Hct (39.0-53.0) % Sodium (137-145) mmol/L Chloride (98-107) mmol/L BUN (9-20) mg/dL Creatinine (0.66-1.25) mg/dL Glucose (74-99) mg/dL POC Glucose (mg/dL) 294 H (70-110) mg/dL Calcium (8.4-10.2) mg/dL Microbiology - Last 24 Hours (Table) 03/24/23 10:55 Blood Culture Gram Stain - Preliminary Blood
[2023-03-25 15:32] LABS: Lymphocytes # (M) 0.83 k/uL (1.0-4.8); Monocytes # (M) 0.88 k/uL (0-1.0); Myelocytes # (M) 0.06 k/uL (0); Myelocytes % 1 %; Neutrophils # (M) 3.74 k/uL (1.3-7.7); Neutrophils % (M) 68 %; Nucleated Red Blood Cells 0 /100 WBC (0-0); Total Cells Counted 100
[2023-03-25 16:49] LABS: Glucose,Whole Blood 135 mg/dL (70-110)
[2023-03-25] MEDS: TORSEMIDE 20 MG TAB PO SCH (17:33)
[2023-03-25 20:12] LABS: Glucose,Whole Blood 289 mg/dL (70-110)
[2023-03-25] MEDS: ALBUTEROL NEBULIZED 2.5 MG/3 ML INHALATION PRN (21:26)
[2023-03-25] MEDS: PRAMIPEXOLE 0.5 MG TAB PO SCH (21:27)
[2023-03-25] MEDS: ACETAMINOPHEN TAB 325 MG TAB PO PRN (21:28)
[2023-03-25] MEDS: NON FORMULARY DRUG (Rosuvastatin Calcium [Crestor] 40 MG Tablet) PO SCH (21:29)
[2023-03-25] MEDS: ALPRAZolam 0.5 MG TAB PO PRN (22:20)
[2023-03-26 06:17] LABS: Glucose,Whole Blood 204 mg/dL (70-110)
[2023-03-26] MEDS: INSULIN ASPART (NovoLOG) 100 UNIT/ML VIAL SQ SCH ×4 (06:37→21:58)
[2023-03-26] MEDS: carvediloL 12.5 MG TAB PO SCH ×2 (06:37→17:30)
[2023-03-26] MEDS: SYMBICORT 80-4.5 MCG INHALER INHALATION SCH ×2 (09:12→21:13)
[2023-03-26 09:48] LABS: HGB 9.4 gm/dL (13.0-17.5); MCH 30.2 pg (25.0-35.0); MCHC 32.4 g/dL (31.0-37.0); MCV 93.4 fL (80.0-100.0); Mean Platelet Volume 8.8; Platelet Count 192 k/uL (150-450); RBC 3.11 m/uL (4.30-5.90); RDW 13.4 % (11.5-15.5); WBC 4.8 k/uL (3.8-10.6)
[2023-03-26 09:59] LABS: African American GFR (CKD) 17 (>60 ml/min/1.73 sqM); Anion Gap 14 mmol/L; Blood Urea Nitrogen 37 mg/dL (9-20); Carbon Dioxide 25 mmol/L (22-30); Chloride 91 mmol/L (98-107); Glucose 240 mg/dL (74-99); Magnesium 1.9 mg/dL (1.6-2.3); Non-African American GFR(CKD) 15 (>60 ml/min/1.73 sqM); Potassium 3.9 mmol/L (3.5-5.1); Sodium 130 mmol/L (137-145)
[2023-03-26 10:51] LABS: Band Neutrophils % 5 %; Lymphocytes # (M) 1.15 k/uL (1.0-4.8); Monocytes # (M) 0.96 k/uL (0-1.0); Neutrophils % (M) 49 %; Nucleated Red Blood Cells 0 /100 WBC (0-0); Total Cells Counted 100
[2023-03-26 11:11] LABS: Glucose,Whole Blood 157 mg/dL (70-110)
--- NOTE | 2023-03-26 12:58 | P.PN ---
Subjective Progress Note Date: 03/26/23 Patient is a 72-year-old male with chronic kidney disease use, diabetes mellitus insulin requiring, coronary artery disease status post stenting, and hypertension who presented to the hospital due to exertional dyspnea and chest pain. He was admitted actually admitted for possible acute coronary syndrome. Cardiology was consulted. He underwent cardiac catheterization which showed c oronary artery disease with a 40-50% mid distal left main stenosis, 50-60% mid LAD stenosis, 100% circumflex stenosis, and 50-60% mild RCA stenosis. Cath felt be fairly similar from 2017 was some progression of the left main disease. However, high risk for conitnued contrast exposure and recommends were made for initial conservative management wtih conitnued monitoring. His renal function, nephrology was following. Overnight on 03/18 patient developed worsening respiratory distress requiring increase of his oxygen from 6 to 15 L nasal cannula. Patient seen and examined at bedside. His O2 requirement is down to 0-1L. His edema is much better. wrist pain is better today, swelling still present. 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 Non-anion gap metabolic acidosis secondary to chronic kidney disease Hypertensive urgency with improved blood pressures Acute hypoxic respiratory failure that is worsening Diabetes mellitus type 2 with hypogycemia Plan: -Wean patient off of oxygen as much as able -Norvasc 5 mg twice daily, Coreg 3.125 mg twice daily, hydralazine 25 mg twice daily, Crestor 40 mg at night -Aspirin 81 mg daily -Zetia 10 mg daily -Imdur 60 mg daily, Ranexa 1000 mg twice daily -Cefazolin (1g IV q8h) started for thrombophlebitis, ice packs requested; day 2/5 Imaging: VQ scan- no PE B/l LE venous dopplers- No DVT Right Upper Ext US ordered to rule out aneurysm of angiogram site - reviewed 03/25, was negative for aneurysm, showed superficial thrombophlebitis -Echocardiogram from 01/21 shows ejection fraction 50-55% Data Review: -BCx reviewed today - CONS, no sensitivities yet - 1st HD 03/18/23 - 2L UF, 2nd 03/19/23 - 3L UF, 3rd 03/20/23 - 2L UF, 4th 03/21 - 3L UF Hgb 9.4; Na 130, Cl 94, BUN 37, Cr 3.77 DVT prophylaxis: Heparin Anticipated discharge date: 2-[address]: Home with home care Objective - Vital Signs Vital signs: Vital Signs Temp 96.9 F L 03/26/23 11:39 Pulse 66 03/26/23 11:39 Resp 18 03/26/23 11:39 BP 136/67 03/26/23 11:39 Pulse Ox 98 03/26/23 11:39 FiO2 Intake & Output 03/25/23 03/26/23 03/26/23 18:59 06:59 18:59 Intake Total 598 Output Total 400 100 Balance 598 -400 -100 Weight 99.9 kg Intake: Oral 598 Output: Urine 400 100 Other: Voiding Method Indwelling Catheter Indwelling Catheter Indwelling Catheter # Voids 3 - Labs CBC & Chem 7: 03/26/23 08:55 03/26/23 08:55 Labs: Abnormal Lab Results - Last 24 Hours (Table) 03/25/23 03/25/23 03/25/23 Range/Units 10:09 16:47 20:11 RBC 3.28 L (4.30-5.90) m/uL Hgb 9.8 L (13.0-17.5) gm/dL Hct 31.0 L (39.0-53.0) % Lymphocytes # (Manual) 0.83 L (1.0-4.8) k/uL Myelocytes # (Manual) 0.06 H (0) k/uL Sodium (137-145) mmol/L Chloride (98-107) mmol/L BUN (9-20) mg/dL Creatinine (0.66-1.25) mg/dL Glucose (74-99) mg/dL POC Glucose (mg/dL) 135 H 289 H (70-110) mg/dL Calcium (8.4-10.2) mg/dL 03/26/23 03/26/23 03/26/23 Range/Units 06:14 08:55 08:55 RBC 3.11 L (4.30-5.90) m/uL Hgb 9.4 L (13.0-17.5) gm/dL Hct 29.0 L (39.0-53.0) % Lymphocytes # (Manual) (1.0-4.8) k/uL Myelocytes # (Manual) (0) k/uL Sodium 130 L (137-145) mmol/L Chloride 91 L (98-107) mmol/L BUN 37 H (9-20) mg/dL Creatinine 3.77 H (0.66-1.25) mg/dL Glucose 240 H (74-99) mg/dL POC Glucose (mg/dL) 204 H (70-110) mg/dL Calcium 8.0 L (8.4-10.2) mg/dL 03/26/23 Range/Units 11:08 RBC (4.30-5.90) m/uL Hgb (13.0-17.5) gm/dL Hct (39.0-53.0) % Lymphocytes # (Manual) (1.0-4.8) k/uL Myelocytes # (Manual) (0) k/uL Sodium (137-145) mmol/L Chloride (98-107) mmol/L BUN (9-20) mg/dL Creatinine (0.66-1.25) mg/dL Glucose (74-99) mg/dL POC Glucose (mg/dL) 157 H (70-110) mg/dL Calcium (8.4-10.2) mg/dL Microbiology - Last 24 Hours (Table) 03/24/23 10:55 Blood Culture Gram Stain - Preliminary Blood Blood Culture - Preliminary Coagulase Negative Staph
[2023-03-26] MEDS: ESCITALOPRAM 10 MG TAB PO SCH (13:41)
[2023-03-26] MEDS: RANOLAZINE 500 MG TAB.ER.12H PO SCH ×2 (13:41→21:59)
[2023-03-26] MEDS: amLODIPine 5 MG TAB PO SCH ×2 (13:42→21:59)
[2023-03-26] MEDS: ISOSORBIDE MONONITRATE ER 60 MG TAB.ER.24H PO SCH (13:42)
[2023-03-26] MEDS: hydrALAZINE HCL 25 MG TAB PO SCH ×2 (13:42→21:59)
[2023-03-26] MEDS: EZETIMIBE 10 MG TAB PO SCH (13:42)
[2023-03-26] MEDS: LORATADINE 10 MG TAB PO SCH (13:42)
[2023-03-26] MEDS: ASPIRIN 81 MG PO SCH (13:42)
[2023-03-26] MEDS: HEPARIN SODIUM,PORCINE 5,000 UNIT/ML 1 ML VIAL SQ SCH ×2 (13:43→14:55)
[2023-03-26] MEDS: TORSEMIDE 20 MG TAB PO SCH (13:49)
--- NOTE | 2023-03-26 13:56 | P.PN ---
Subjective Progress Note Date: 03/26/23 I am seeing this patient in new consultation today 03/21/2023 for acute hypoxemic respiratory failure and fluid overload. Patient is a 72-year-old white male with past medical history significant for coronary artery disease and previous coronary stenting, hypertension, hyperlipidemia, chronic kidney disease stage IV, obstructive sleep apnea not compliant with CPAP, and is a remote ex- tobacco smoker. Patient presented to the emergency room back on March 09 chest pain that radiated to his left shoulder that occurred after some outside chores. He also had some shortness of breath and increased lower extremity swelling. The patient took 2 nitroglycerin tablets and came to the hospital. On March 11 the patient was taken to the cardiac Electronics Maintenance Technician and was found to have 40-50% mid distal left main stenosis, 50-60% mid LAD stenosis, 100% left circumflex stenosis, and 50-60% mid RCA stenosis. He had elevated left sided filling pressures. No cardiac intervention was performed at that time due to the risk of prolonged contrast-induced nephropathy. Patient's oxygen demands have progressively increased during the course of his stay. He did end up requiring hemodialysis, and had a right sided IJ permacath inserted on March 18, and has been receiving serial dialysis. We were finally consulted early this morning. He was apparently in some mild to moderate respiratory distress earlier. The patient is currently lying in bed, fatigued, on a 15 L nonrebreather. His SpO2 is 100%, and I was able to wean down FiO2 to 6 L high flow cannula. Most recent chest x-ray shows improved pulmonary vascular congestion. Ventilation/perfusion scan from 2 days ago showed no evidence of pulmonary embolism. ABG from 2 days ago shows a pO2 of 65, pCO2 of 39, pH of 7.41. This was done on a 15 L high flow cannula. Most recent CBC from 2 days ago shows a WBC count of 7.9, hemoglobin 10, hematocrit 29, platelets 95. Most recent BMP from 2 days ago shows a sodium 132, potassium 4, chloride 95, serum bicarb 24, BUN 50, creatinine 3.13, glucose 179. NT proBNP at this time was elevated at 18,500. Patient has an indwelling urine catheter, and is oliguric. His negative for COVID-19. Patient's prognosis is guarded. On today's evaluation of 03/22/2023, the patient is stable on 3 L of oxygen by n neris cannula and the current pulse ox is 97%. No cervical respiratory difficulties. No chest pain. The patient is not producing much of urine output and the patient is going to undergo another session of hemodialysis today. His last session was done yesterday and the patient was also infiltrated to a total of 3.5 L. No new labs from today. The patient is awake and alert and communicating. Family is at the bedside. He is on Lasix with limited urine output as mentioned. Nephrology is on the case. On today's evaluation of 2022, the patient is scheduled to undergo another session of hemodialysis. His overnight was essentially uneventful. He remains on 3 L of oxygen by nasal cannula. He was feeling a bit fatigued and this morning he is feeling slightly more energetic. No other specific complaints for now. No chest pain. No shortness of breath. He remains on Lasix IV although his urine output remains low and poor. He was also on Demadex 40 mg by mouth daily. Nephrology is on the case. Lawn Care Technician on the case. History of any chest pain. He is post cardiac catheterization, and no further interventions are scheduled or plan for the time being. On today's evaluation of 03/24/2023, I'm seeing the patient for a follow-up. He is running a low-grade fever. The blood cultures were sent off the permacath. The patient is otherwise resting comfortably. He remains on 2 L of oxygen by nasal cannula. No significant respiratory distress. He is undergoing hemodial ysis with ultrafiltration of 3.5 L of fluids. His white cell count of 5.9 with a hemoglobin of 9.8. Blood sugars at 216. Tomlinson catheter in place and the patient remains on oral Demadex and is currently off Lasix. No chest pain. 03/25/2023, I'm seeing the patient for a follow-up. The patient was having low- grade fever yesterday. The patient was found to have gram-positive cocci in clusters. Note that he had a recent permacath insertion. The patient is undergoing dialysis and his last dialysis session was yesterday. No dialysis is scheduled for today. The patient is currently afebrile. The patient was started on IV cefazolin. He is hemodynamically stable. He is on 2 L of oxygen by nasal cannula with a pulse ox of 97%. Is able to sit up on a chair. No major edema lower extremities. No shortness of breath. Mental status is appropriate. The echoes of 5.5 with a hemoglobin of 9.8. BUN is at 47 with a creatinine of 3.9 and a sodium level is at 125. Potassium levels at 4.4. 03/26 2023, the patient is on 1 L O2 nasal cannula. No respiratory difficulties. He is afebrile. The blood cultures are not to the positive for coagulase- negative staph. He is also undergoing hemodialysis with the goal of ultrafiltration of 2.5 L. The white cell count is not elevated at 4.8, hemoglobin is 9.4, BUN 37 with a creatinine of 3.77 Objective - Vital Signs Vital signs: Vital Signs Temp 96.9 F L 03/26/23 11:39 Pulse 66 03/26/23 11:39 Resp 18 03/26/23 11:39 BP 136/67 03/26/23 11:39 Pulse Ox 98 03/26/23 11:39 FiO2 Intake & Output 03/25/23 03/26/23 03/26/23 18:59 06:59 18:59 Intake Total 598 Output Total 400 100 Balance 598 -400 -100 Weight 99.9 kg Intake: Oral 598 Output: Urine 400 100 Other: Voiding Method Indwelling Catheter Indwelling Catheter Indwelling Catheter # Voids 3 - Exam GENERAL EXAM: Alert, 72-year-old white male, fatigued but in no apparent distress. HEAD: Normocephalic and atraumatic EYES: Normal reaction of pupils, equal size. NOSE: Clear with pink turbinates. THROAT: No erythema or exudates. NECK: No masses, no JVD. CHEST: No chest wall deformity. LUNGS: Equal air entry with no crackles, wheeze, rhonchi or dullness. On 6 L/m nasal cannula. There is some accessory muscle use and tachypnea CVS: S1 and S2 normal with no audible murmur, regular rhythm. No extra heart sounds ABDOMEN: There is some mild abdominal distention, no hepatosplenomegaly, active bowel sounds, no guarding or rigidity. SPINE: No scoliosis or deformity SKIN: No rashes CENTRAL NERVOUS SYSTEM: No focal deficits, tone is normal in all 4 extremities. EXTREMITIES: There is mild nonpitting bilateral lower extremity edema. No clubbing, or cyanosis. Peripheral pulses are intact. - Labs CBC & Chem 7: 03/26/23 08:55 03/26/23 08:55 Labs: Abnormal Lab Results - Last 24 Hours (Table) 03/25/23 03/25/23 03/25/23 Range/Units 10:09 10:09 16:47 RBC 3.28 L (4.30-5.90) m/uL Hgb 9.8 L (13.0-17.5) gm/dL Hct 31.0 L (39.0-53.0) % Lymphocytes # (Manual) 0.83 L (1.0-4.8) k/uL Myelocytes # (Manual) 0.06 H (0) k/uL Sodium 125 L (137-145) mmol/L Chloride 88 L (98-107) mmol/L BUN 47 H (9-20) mg/dL Creatinine 3.98 H (0.66-1.25) mg/dL Glucose 318 H (74-99) mg/dL POC Glucose (mg/dL) 135 H (70-110) mg/dL Calcium 7.9 L (8.4-10.2) mg/dL 03/25/23 03/26/23 03/26/23 Range/Units 20:11 06:14 08:55 RBC 3.11 L (4.30-5.90) m/uL Hgb 9.4 L (13.0-17.5) gm/dL Hct 29.0 L (39.0-53.0) % Lymphocytes # (Manual) (1.0-4.8) k/uL Myelocytes # (Manual) (0) k/uL Sodium (137-145) mmol/L Chloride (98-107) mmol/L BUN (9-20) mg/dL Creatinine (0.66-1.25) mg/dL Glucose (74-99) mg/dL POC Glucose (mg/dL) 289 H 204 H (70-110) mg/dL Calcium (8.4-10.2) mg/dL 03/26/23 03/26/23 Range/Units 08:55 11:08 RBC (4.30-5.90) m/uL Hgb (13.0-17.5) gm/dL Hct (39.0-53.0) % Lymphocytes # (Manual) (1.0-4.8) k/uL Myelocytes # (Manual) (0) k/uL Sodium 130 L (137-145) mmol/L Chloride 91 L (98-107) mmol/L BUN 37 H (9-20) mg/dL Creatinine 3.77 H (0.66-1.25) mg/dL Glucose 240 H (74-99) mg/dL POC Glucose (mg/dL) 157 H (70-110) mg/dL Calcium 8.0 L (8.4-10.2) mg/dL Microbiology - Last 24 Hours (Table) 03/24/23 10:55 Blood Culture Gram Stain - Preliminary Blood Blood Culture - Preliminary Coagulase Negative Staph Assessment and Plan Assessment: Acute hypoxemic respiratory failure, secondary to fluid overload. Most recent chest x-ray shows improved pulmonary vascular congestion. Patient has been receiving hemodialysis daily for the last 2 days. Most recent echocardiogram from December, shows a preserved left ventricular systolic ejection fraction of 50-55% and mild to moderate mitral regurgitation. Acute on chronic kidney injury, now requiring serial hemodialysis, and the patient had a dialysis yesterday with a total of 3.5 L of ultrafiltration Bacteremia with gram-positive cocci in clusters, rule out staphylococcal bacteremia. The patient is a permacath that was recently inserted. Is currently undergoing hemodialysis. The patient is currently on IV cefazolin. He is currently afebrile and hemodynamically stable. Anion gap metabolic acidosis secondary to above, improved Coronary artery disease, status post cardiac catheterization on 03/11/2023 and was found to have 40-50% mid distal left main stenosis, 50-60% mid LAD stenosis, 100% left circumflex stenosis, and 50-60% mid RCA stenosis. With elevated left sided filling pressures. No cardiac intervention was performed at that time due to the risk of prolonged contrast-induced nephropathy. Mild intermittent bronchial asthma, stable Chronic kidney disease stage IV Type 2 diabetes mellitus, insulin-dependent Anemia of chronic disease Hyperlipidemia Essential hypertension Obstructive sleep apnea, noncompliant with home CPAP Remote ex-smoker Fever, currently under investigation, rule out underlying bacteremia and sepsis with gram-positive cocci Hyponatremia, the findings on the case. Plan: Oxygenation continues to improve Monitor the fever pattern, currently afebrile Continue IV cefazolin Coagulase-negative staph in the blood Awaiting final cultures Patient is on Demadex is producing small amount of urine output Clinically stable on 1 L of oxygen by nasal cannula Respiratory status is stable and chest x-ray findings are stable and the patient has some minimal residual interstitial edema Continue Demadex Respiratory status is more stable compared to yesterday and the patient feels less short of breath Continue bronchodilators and Symbicort inhaler Heparin for DVT prophylaxis The patient will likely need long-term hemodialysis.. The permacath already been inserted in the right IJ. The exit site is clean We'll monitor the blood culture and the fever pattern We'll follow
--- NOTE | 2023-03-26 15:43 | P.PN ---
Subjective Progress Note Date: 03/26/23 Follow-up for acute kidney injury on dialysis. Objective - Vital Signs Vital signs: Vital Signs Temp 96.9 F L 03/26/23 11:39 Pulse 66 03/26/23 14:00 Resp 18 03/26/23 14:00 BP 136/67 03/26/23 11:39 Pulse Ox 98 03/26/23 11:39 FiO2 Intake & Output 03/25/23 03/26/23 03/26/23 18:59 06:59 18:59 Intake Total 598 Output Total 400 100 Balance 598 -400 -100 Weight 99.9 kg Intake: Oral 598 Output: Urine 400 100 Other: Voiding Method Indwelling Catheter Indwelling Catheter Indwelling Catheter # Voids 3 - Exam No acute distress S1-S2 heard Decreased breath sounds Edema Right jugular permacath - Labs CBC & Chem 7: 03/26/23 08:55 03/26/23 08:55 Labs: Abnormal Lab Results - Last 24 Hours (Table) 03/25/23 03/25/23 03/26/23 Range/Units 16:47 20:11 06:14 RBC (4.30-5.90) m/uL Hgb (13.0-17.5) gm/dL Hct (39.0-53.0) % Sodium (137-145) mmol/L Chloride (98-107) mmol/L BUN (9-20) mg/dL Creatinine (0.66-1.25) mg/dL Glucose (74-99) mg/dL POC Glucose (mg/dL) 135 H 289 H 204 H (70-110) mg/dL Calcium (8.4-10.2) mg/dL 03/26/23 03/26/23 03/26/23 Range/Units 08:55 08:55 11:08 RBC 3.11 L (4.30-5.90) m/uL Hgb 9.4 L (13.0-17.5) gm/dL Hct 29.0 L (39.0-53.0) % Sodium 130 L (137-145) mmol/L Chloride 91 L (98-107) mmol/L BUN 37 H (9-20) mg/dL Creatinine 3.77 H (0.66-1.25) mg/dL Glucose 240 H (74-99) mg/dL POC Glucose (mg/dL) 157 H (70-110) mg/dL Calcium 8.0 L (8.4-10.2) mg/dL Microbiology - Last 24 Hours (Table) 03/24/23 10:55 Blood Culture Gram Stain - Preliminary Blood Blood Culture - Preliminary Coagulase Negative Staph Assessment and Plan Assessment: #1 oliguric acute kidney injury multifactorial. -Hemodynamic and contrast induce toxic ATN. -CRS is a differential -Baseline creatinine 3.0 MG per DL #2 chronic kidney disease stage IV secondary to diabetic kidney disease #3 volume overload #4 hypertension with chronic kidney disease #5 anemia with chronic kidney disease #7 diastolic CHF Plan: #1 hemodialysis [id number] for volume. Next treatment on Tuesday #2 continue with diuretics #3 monitor for recovery
[2023-03-26 16:47] LABS: Glucose,Whole Blood 325 mg/dL (70-110)
[2023-03-26 20:36] LABS: Glucose,Whole Blood 312 mg/dL (70-110)
[2023-03-26] MEDS: ALBUTEROL NEBULIZED 2.5 MG/3 ML INHALATION PRN (21:13)
[2023-03-26] MEDS: NON FORMULARY DRUG (Rosuvastatin Calcium [Crestor] 40 MG Tablet) PO SCH (21:59)
[2023-03-26] MEDS: PRAMIPEXOLE 0.5 MG TAB PO SCH (21:59)
[2023-03-26] MEDS: ALPRAZolam 0.25 MG TAB PO PRN (21:59)
[2023-03-27] MEDS: HEPARIN SODIUM,PORCINE 5,000 UNIT/ML 1 ML VIAL SQ SCH ×3 (00:41→17:16)
[2023-03-27] MEDS: ALPRAZolam 0.5 MG TAB PO PRN ×2 (00:41→23:04)
[2023-03-27 06:05] LABS: Glucose,Whole Blood 148 mg/dL (70-110)
[2023-03-27] MEDS: INSULIN ASPART (NovoLOG) 100 UNIT/ML VIAL SQ SCH ×4 (06:06→20:58)
[2023-03-27] MEDS: carvediloL 12.5 MG TAB PO SCH ×2 (07:00→17:16)
[2023-03-27] MEDS: amLODIPine 5 MG TAB PO SCH ×2 (08:10→20:58)
[2023-03-27] MEDS: RANOLAZINE 500 MG TAB.ER.12H PO SCH ×2 (08:10→20:58)
[2023-03-27] MEDS: TORSEMIDE 20 MG TAB PO SCH (08:10)
[2023-03-27] MEDS: ASPIRIN 81 MG PO SCH (08:11)
[2023-03-27] MEDS: ISOSORBIDE MONONITRATE ER 60 MG TAB.ER.24H PO SCH (08:11)
[2023-03-27] MEDS: LORATADINE 10 MG TAB PO SCH (08:11)
[2023-03-27] MEDS: EZETIMIBE 10 MG TAB PO SCH (08:11)
[2023-03-27] MEDS: ESCITALOPRAM 10 MG TAB PO SCH (08:11)
[2023-03-27] MEDS: hydrALAZINE HCL 25 MG TAB PO SCH ×2 (08:11→20:58)
[2023-03-27] MEDS: ALBUTEROL NEBULIZED 2.5 MG/3 ML INHALATION PRN ×2 (08:19→21:10)
[2023-03-27] MEDS: SYMBICORT 80-4.5 MCG INHALER INHALATION SCH ×2 (08:19→21:10)
[2023-03-27 09:06] LABS: HCT 28.2 % (39.0-53.0); HGB 9.4 gm/dL (13.0-17.5); MCH 30.5 pg (25.0-35.0); MCHC 33.1 g/dL (31.0-37.0); Mean Platelet Volume 8.9; Platelet Count 196 k/uL (150-450); RBC 3.07 m/uL (4.30-5.90); RDW 13.4 % (11.5-15.5); WBC 4.2 k/uL (3.8-10.6)
[2023-03-27 09:13] LABS: ALT 14 U/L (4-49); AST 48 U/L (17-59); African American GFR (CKD) 19 (>60 ml/min/1.73 sqM); Albumin 2.9 g/dL (3.5-5.0); Alkaline Phosphatase 158 U/L (38-126); Anion Gap 14 mmol/L; Blood Urea Nitrogen 36 mg/dL (9-20); Carbon Dioxide 25 mmol/L (22-30); Chloride 92 mmol/L (98-107); Glucose 145 mg/dL (74-99); Non-African American GFR(CKD) 17 (>60 ml/min/1.73 sqM); Potassium 3.8 mmol/L (3.5-5.1); Sodium 131 mmol/L (137-145); Total Bilirubin 0.6 mg/dL (0.2-1.3); Total Protein 6.5 g/dL (6.3-8.2)
[2023-03-27 09:45] LABS: Band Neutrophils % 6 %; Eosinophils # (M) 0.04 k/uL (0-0.7); Monocytes # (M) 0.67 k/uL (0-1.0); Neutrophils % (M) 65 %; Nucleated Red Blood Cells 0 /100 WBC (0-0); Total Cells Counted 100
[2023-03-27 11:29] LABS: Glucose,Whole Blood 333 mg/dL (70-110)
--- NOTE | 2023-03-27 11:58 | P.PN ---
Subjective Progress Note Date: 03/27/23 I am seeing this patient in new consultation today 03/21/2023 for acute hypoxemic respiratory failure and fluid overload. Patient is a 72-year-old white male with past medical history significant for coronary artery disease and previous coronary stenting, hypertension, hyperlipidemia, chronic kidney disease stage IV, obstructive sleep apnea not compliant with CPAP, and is a remote ex- tobacco smoker. Patient presented to the emergency room back on March 09 chest pain that radiated to his left shoulder that occurred after some outside chores. He also had some shortness of breath and increased lower extremity swelling. The patient took 2 nitroglycerin tablets and came to the hospital. On March 11 the patient was taken to the cardiac [facility] and was found to have 40-50% mid distal left main stenosis, 50-60% mid LAD stenosis, 100% left circumflex stenosis, and 50-60% mid RCA stenosis. He had elevated left sided filling pressures. No cardiac intervention was performed at that time due to the risk of prolonged contrast-induced nephropathy. Patient's oxygen demands have progressively increased during the course of his stay. He did end up requiring hemodialysis, and had a right sided IJ permacath inserted on March 18, and has been receiving serial dialysis. We were finally consulted early this morning. He was apparently in some mild to moderate respiratory distress earlier. The patient is currently lying in bed, fatigued, on a 15 L nonrebreather. His SpO2 is 100%, and I was able to wean down FiO2 to 6 L high flow cannula. Most recent chest x-ray shows improved pulmonary vascular congestion. Ventilation/perfusion scan from 2 days ago showed no evidence of pulmonary embolism. ABG from 2 days ago shows a pO2 of 65, pCO2 of 39, pH of 7.41. This was done on a 15 L high flow cannula. Most recent CBC from 2 days ago shows a WBC count of 7.9, hemoglobin 10, hematocrit 29, platelets 95. Most recent BMP from 2 days ago shows a sodium 132, potassium 4, chloride 95, serum bicarb 24, BUN 50, creatinine 3.13, glucose 179. NT proBNP at this time was elevated at 18,500. Patient has an indwelling urine catheter, and is oliguric. His negative for COVID-19. Patient's prognosis is guarded. On today's evaluation of 03/22/2023, the patient is stable on 3 L of oxygen by n neris cannula and the current pulse ox is 97%. No cervical respiratory difficulties. No chest pain. The patient is not producing much of urine output and the patient is going to undergo another session of hemodialysis today. His last session was done yesterday and the patient was also infiltrated to a total of 3.5 L. No new labs from today. The patient is awake and alert and communicating. Family is at the bedside. He is on Lasix with limited urine output as mentioned. Nephrology is on the case. On today's evaluation of 2022, the patient is scheduled to undergo another session of hemodialysis. His overnight was essentially uneventful. He remains on 3 L of oxygen by nasal cannula. He was feeling a bit fatigued and this morning he is feeling slightly more energetic. No other specific complaints for now. No chest pain. No shortness of breath. He remains on Lasix IV although his urine output remains low and poor. He was also on Demadex 40 mg by mouth daily. Nephrology is on the case. Chemical Dependency Counselor on the case. History of any chest pain. He is post cardiac catheterization, and no further interventions are scheduled or plan for the time being. On today's evaluation of 03/24/2023, I'm seeing the patient for a follow-up. He is running a low-grade fever. The blood cultures were sent off the permacath. The patient is otherwise resting comfortably. He remains on 2 L of oxygen by nasal cannula. No significant respiratory distress. He is undergoing hemodial ysis with ultrafiltration of 3.5 L of fluids. His white cell count of 5.9 with a hemoglobin of 9.8. Blood sugars at 216. Tomlinson catheter in place and the patient remains on oral Demadex and is currently off Lasix. No chest pain. 03/25/2023, I'm seeing the patient for a follow-up. The patient was having low- grade fever yesterday. The patient was found to have gram-positive cocci in clusters. Note that he had a recent permacath insertion. The patient is undergoing dialysis and his last dialysis session was yesterday. No dialysis is scheduled for today. The patient is currently afebrile. The patient was started on IV cefazolin. He is hemodynamically stable. He is on 2 L of oxygen by nasal cannula with a pulse ox of 97%. Is able to sit up on a chair. No major edema lower extremities. No shortness of breath. Mental status is appropriate. The echoes of 5.5 with a hemoglobin of 9.8. BUN is at 47 with a creatinine of 3.9 and a sodium level is at 125. Potassium levels at 4.4. 03/26 2023, the patient is on 1 L O2 nasal cannula. No respiratory difficulties. He is afebrile. The blood cultures are not to the positive for coagulase- negative staph. He is also undergoing hemodialysis with the goal of ultrafiltration of 2.5 L. The white cell count is not elevated at 4.8, hemoglobin is 9.4, BUN 37 with a creatinine of 3.77 A 2022, the patient is on room air oxygen. Ambulating. No new complaints. No chest pain. No shortness of breath. No fever. Remains on IV cefazolin. Tomlinson catheter in place. Urine output remains diminished. He underwent dialysis yesterday with a total of 2.5 L of fluid removed. He remains on Demadex 40 mg by mouth daily. Objective - Vital Signs Vital signs: Vital Signs Temp 98.0 F 03/27/23 08:00 Pulse 70 03/27/23 08:33 Resp 18 03/27/23 08:00 BP 110/53 03/27/23 08:00 Pulse Ox 96 03/27/23 08:23 FiO2 Intake & Output 03/26/23 03/27/23 03/27/23 18:59 06:59 18:59 Output Total 125 Balance -125 Weight 98.7 kg Output: Urine 125 Other: Voiding Method Indwelling Catheter Indwelling Catheter Indwelling Catheter # Bowel Movements 2 - Exam GENERAL EXAM: Alert, 72-year-old white male, fatigued but in no apparent distress. The patient is currently on room air oxygen HEAD: Normocephalic and atraumatic EYES: Normal reaction of pupils, equal size. NOSE: Clear with pink turbinates. THROAT: No erythema or exudates. NECK: No masses, no JVD. CHEST: No chest wall deformity. LUNGS: Equal air entry with no crackles, wheeze, rhonchi or dullness. CVS: S1 and S2 normal with no audible murmur, regular rhythm. No extra heart sounds ABDOMEN: There is some mild abdominal distention, no hepatosplenomegaly, active bowel sounds, no guarding or rigidity. SPINE: No scoliosis or deformity SKIN: No rashes CENTRAL NERVOUS SYSTEM: No focal deficits, tone is normal in all 4 extremities. EXTREMITIES: There is mild nonpitting bilateral lower extremity edema. No cl ubbing, or cyanosis. Peripheral pulses are intact. - Labs CBC & Chem 7: 03/27/23 07:47 03/27/23 07:47 Labs: Abnormal Lab Results - Last 24 Hours (Table) 03/26/23 03/26/23 03/27/23 Range/Units 16:45 20:35 06:04 RBC (4.30-5.90) m/uL Hgb (13.0-17.5) gm/dL Hct (39.0-53.0) % Lymphocytes # (Manual) (1.0-4.8) k/uL Sodium (137-145) mmol/L Chloride (98-107) mmol/L BUN (9-20) mg/dL Creatinine (0.66-1.25) mg/dL Glucose (74-99) mg/dL POC Glucose (mg/dL) 325 H 312 H 148 H (70-110) mg/dL Calcium (8.4-10.2) mg/dL Alkaline Phosphatase (38-126) U/L Albumin (3.5-5.0) g/dL 03/27/23 03/27/23 03/27/23 Range/Units 07:47 07:47 11:27 RBC 3.07 L (4.30-5.90) m/uL Hgb 9.4 L (13.0-17.5) gm/dL Hct 28.2 L (39.0-53.0) % Lymphocytes # (Manual) 0.50 L (1.0-4.8) k/uL Sodium 131 L (137-145) mmol/L Chloride 92 L (98-107) mmol/L BUN 36 H (9-20) mg/dL Creatinine 3.47 H (0.66-1.25) mg/dL Glucose 145 H (74-99) mg/dL POC Glucose (mg/dL) 333 H (70-110) mg/dL Calcium 8.0 L (8.4-10.2) mg/dL Alkaline Phosphatase 158 H (38-126) U/L Albumin 2.9 L (3.5-5.0) g/dL Microbiology - Last 24 Hours (Table) 03/24/23 10:55 Blood Culture Gram Stain - Final Blood Blood Culture - Final Staphylococcus epidermidis Assessment and Plan Assessment: Acute hypoxemic respiratory failure, secondary to fluid overload. Most recent chest x-ray shows improved pulmonary vascular congestion. Most recent echocardiogram from December, shows a preserved left ventricular systolic ejection fraction of 50-55% and mild to moderate mitral regurgitation. The patient is currently on room air oxygen and the patient is improved. Acute on chronic kidney injury, now requiring serial hemodialysis, and the patient had a dialysis yesterday with a total of 2.5 L of ultrafiltration, urine output is low and the patient is taking Demadex. He will require long-term dialysis Bacteremia with gram-positive cocci in clusters, rule out staphylococcal bacteremia. The patient is a permacath that was recently inserted. Is currently undergoing hemodialysis. The patient is currently on IV cefazolin. He is currently afebrile and hemodynamically stable. Anion gap metabolic acidosis secondary to above, improved Coronary artery disease, status post cardiac catheterization on 03/11/2023 and was found to have 40-50% mid distal left main stenosis, 50-60% mid LAD stenosis, 100% left circumflex stenosis, and 50-60% mid RCA stenosis. With elevated left sided filling pressures. No cardiac intervention was performed at that time due to the risk of prolonged contrast-induced nephropathy. Mild intermittent bronchial asthma, stable Chronic kidney disease stage IV Type 2 diabetes mellitus, insulin-dependent Anemia of chronic disease Hyperlipidemia Essential hypertension Obstructive sleep apnea, noncompliant with home CPAP Remote ex-smoker Fever, currently under investigation, rule out underlying bacteremia and sepsis with gram-positive cocci Hyponatremia, the findings on the case. Plan: Oxygenation continues to improve, currently on room air oxygen Monitor the fever pattern, currently afebrile Continue IV cefazolin, to be completed for a total of 5 days for a soft tissue infection in the right upper extremity Coagulase-negative staph in the blood, staph epidermidis Patient is on Demadex is producing small amount of urine output Respiratory status is stable and chest x-ray findings are stable and the patient has some minimal residual interstitial edema Continue Demadex Respiratory status is more stable compared to yesterday and the patient feels less short of breath Continue bronchodilators and Symbicort inhaler Heparin for DVT prophylaxis The patient will likely need long-term hemodialysis.. The permacath already been inserted in the right IJ. The exit site is clean
--- NOTE | 2023-03-27 12:38 | P.PN ---
Subjective Progress Note Date: 03/27/23 Follow-up for acute kidney injury on dialysis. Objective - Vital Signs Vital signs: Vital Signs Temp 98.0 F 03/27/23 08:00 Pulse 70 03/27/23 08:33 Resp 18 03/27/23 08:00 BP 110/53 03/27/23 08:00 Pulse Ox 96 03/27/23 08:23 FiO2 Intake & Output 03/26/23 03/27/23 03/27/23 18:59 06:59 18:59 Output Total 125 200 Balance -125 -200 Weight 98.7 kg Output: Urine 125 200 Uretheral (Tomlinson) 100 Other: Voiding Method Indwelling Catheter Indwelling Catheter Indwelling Catheter # Bowel Movements 2 - Exam No acute distress S1-S2 heard Decreased breath sounds Edema Right jugular permacath - Labs CBC & Chem 7: 03/27/23 07:47 03/27/23 07:47 Labs: Abnormal Lab Results - Last 24 Hours (Table) 03/26/23 03/26/23 03/27/23 Range/Units 16:45 20:35 06:04 RBC (4.30-5.90) m/uL Hgb (13.0-17.5) gm/dL Hct (39.0-53.0) % Lymphocytes # (Manual) (1.0-4.8) k/uL Sodium (137-145) mmol/L Chloride (98-107) mmol/L BUN (9-20) mg/dL Creatinine (0.66-1.25) mg/dL Glucose (74-99) mg/dL POC Glucose (mg/dL) 325 H 312 H 148 H (70-110) mg/dL Calcium (8.4-10.2) mg/dL Alkaline Phosphatase (38-126) U/L Albumin (3.5-5.0) g/dL 03/27/23 03/27/23 03/27/23 Range/Units 07:47 07:47 11:27 RBC 3.07 L (4.30-5.90) m/uL Hgb 9.4 L (13.0-17.5) gm/dL Hct 28.2 L (39.0-53.0) % Lymphocytes # (Manual) 0.50 L (1.0-4.8) k/uL Sodium 131 L (137-145) mmol/L Chloride 92 L (98-107) mmol/L BUN 36 H (9-20) mg/dL Creatinine 3.47 H (0.66-1.25) mg/dL Glucose 145 H (74-99) mg/dL POC Glucose (mg/dL) 333 H (70-110) mg/dL Calcium 8.0 L (8.4-10.2) mg/dL Alkaline Phosphatase 158 H (38-126) U/L Albumin 2.9 L (3.5-5.0) g/dL Microbiology - Last 24 Hours (Table) 03/24/23 10:55 Blood Culture Gram Stain - Final Blood Blood Culture - Final Staphylococcus epidermidis Assessment and Plan Assessment: #1 oliguric acute kidney injury multifactorial. -Hemodynamic and contrast induce toxic ATN. -CRS is a differential -Baseline creatinine 3.0 MG per DL #2 chronic kidney disease stage IV secondary to diabetic kidney disease #3 volume overload #4 hypertension with chronic kidney disease #5 anemia with chronic kidney disease #7 diastolic CHF Plan: #1 hemodialysis [id number] for volume. Next treatment on Tuesday #2 continue with diuretics #3 monitor for recovery #4 stable from nephrology for discharge with outpatient dialysis placement
[2023-03-27 16:15] LABS: Glucose,Whole Blood 308 mg/dL (70-110)
--- NOTE | 2023-03-27 17:00 | P.PN ---
Subjective Progress Note Date: 03/27/23 Patient seen and examined at bedside. His O2 requirement is down to 0-1L. His edema is much better. wrist pain is better today, swelling still present. 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 Non-anion gap metabolic acidosis secondary to chronic kidney disease Hypertensive urgency with improved blood pressures Acute hypoxic respiratory failure that is worsening Diabetes mellitus type 2 with hypogycemia Plan: -Wean patient off of oxygen as much as able, now on room air -Norvasc 5 mg twice daily, Coreg 3.125 mg twice daily, hydralazine 25 mg twice daily, Crestor 40 mg at night -Aspirin 81 mg daily -Zetia 10 mg daily -Imdur 60 mg daily, Ranexa 1000 mg twice daily -Cefazolin (1g IV q8h) started for thrombophlebitis, ice packs requested; day 3/5 -plan for discharge on 03/28 was discussed with family and CM on tuesday. Nephrology to decide on final iHD in house or next per schedule on Tuesday outpatient. Needs eval for ambulatory oxygen, but fortunately no longer needs at rest. Would benefit from a nebulizer machine to take home. Needs close f/u with pulm, nephrology, cardiology. Hospital Course: Patient is a 72-year-old male with chronic kidney disease use, diabetes mellitus insulin requiring, coronary artery disease status post stenting, and hyperte nsion who presented to the hospital due to exertional dyspnea and chest pain. He was admitted actually admitted for possible acute coronary syndrome. Cardiology was consulted. He underwent cardiac catheterization which showed coronary artery disease with a 40-50% mid distal left main stenosis, 50-60% mid LAD stenosis, 100% circumflex stenosis, and 50-60% mild RCA stenosis. Cath felt be fairly similar from 2017 was some progression of the left main disease. However, high risk for conitnued contrast exposure and recommends were made for initial conservative management wtih conitnued monitoring. His renal function declined to the point of needing dialysis for volume overload and this was i nitiated on 03/18. Overnight on 03/18 patient developed worsening respiratory distress requiring increase of his oxygen from 6 to 15 L nasal cannula. Patient underwent daily dialysis sessions from 03/18-03/25 in which 2-3L of fluid were pulled off per session, and with this his oxygen requirement resolved to room air. Case management did set up dialysis sessions outpatient on a schedule. Pt had some low grade fevers from 03/25-03/26, and was noted to have superficial thrombophlebitis on the right wrist, this was US'd to rule out aneurysm of radial access site and this was negative, but did show thrombophlebitis. Pt was started on cephalexin on 03/25 for anticipated 5 day course. Cardiology determined that lesion in LAD was too high risk for intervention at this time considering improvement in chest pain, and opted to defer interventional management at this time. Imaging: VQ scan- no PE B/l LE venous dopplers- No DVT Right Upper Ext US ordered to rule out aneurysm of angiogram site - reviewed 03/25, was negative for aneurysm, showed superficial thrombophlebitis -Echocardiogram from 01/21 shows ejection fraction 50-55% Data Review: -BCx reviewed today - staph epidermidis - 1st HD 03/18/23 - 2L UF, 2nd 03/19/23 - 3L UF, 3rd 03/20/23 - 2L UF, 4th 03/21 - 3L UF Hgb 9.4; Na 131, Cl 92, BUN 36, Cr 3.47 DVT prophylaxis: Heparin Anticipated discharge date: tomorrow Anticipated discharge place: Home with home care Objective - Vital Signs Vital signs: Vital Signs Temp 97.4 F L 03/27/23 12:00 Pulse 65 03/27/23 12:00 Resp 18 03/27/23 14:00 BP 113/58 03/27/23 12:00 Pulse Ox 94 L 03/27/23 12:00 FiO2 Intake & Output 03/26/23 03/27/23 03/27/23 18:59 06:59 18:59 Output Total 125 200 Balance -125 -200 Weight 98.7 kg Output: Urine 125 200 Uretheral (Tomlinson) 100 Other: Voiding Method Indwelling Catheter Indwelling Catheter Indwelling Catheter # Bowel Movements 2 - Labs CBC & Chem 7: 03/27/23 07:47 03/27/23 07:47 Labs: Abnormal Lab Results - Last 24 Hours (Table) 03/26/23 03/27/23 03/27/23 Range/Units 20:35 06:04 07:47 RBC 3.07 L (4.30-5.90) m/uL Hgb 9.4 L (13.0-17.5) gm/dL Hct 28.2 L (39.0-53.0) % Lymphocytes # (Manual) 0.50 L (1.0-4.8) k/uL Sodium (137-145) mmol/L Chloride (98-107) mmol/L BUN (9-20) mg/dL Creatinine (0.66-1.25) mg/dL Glucose (74-99) mg/dL POC Glucose (mg/dL) 312 H 148 H (70-110) mg/dL Calcium (8.4-10.2) mg/dL Alkaline Phosphatase (38-126) U/L Albumin (3.5-5.0) g/dL 03/27/23 03/27/23 03/27/23 Range/Units 07:47 11:27 16:13 RBC (4.30-5.90) m/uL Hgb (13.0-17.5) gm/dL Hct (39.0-53.0) % Lymphocytes # (Manual) (1.0-4.8) k/uL Sodium 131 L (137-145) mmol/L Chloride 92 L (98-107) mmol/L BUN 36 H (9-20) mg/dL Creatinine 3.47 H (0.66-1.25) mg/dL Glucose 145 H (74-99) mg/dL POC Glucose (mg/dL) 333 H 308 H (70-110) mg/dL Calcium 8.0 L (8.4-10.2) mg/dL Alkaline Phosphatase 158 H (38-126) U/L Albumin 2.9 L (3.5-5.0) g/dL Microbiology - Last 24 Hours (Table) 03/24/23 10:55 Blood Culture Gram Stain - Final Blood Blood Culture - Final Staphylococcus epidermidis
[2023-03-27 20:13] LABS: Glucose,Whole Blood 166 mg/dL (70-110)
[2023-03-27] MEDS: NON FORMULARY DRUG (Rosuvastatin Calcium [Crestor] 40 MG Tablet) PO SCH (20:58)
[2023-03-27] MEDS: PRAMIPEXOLE 0.5 MG TAB PO SCH (20:58)
[2023-03-28] MEDS: HEPARIN SODIUM,PORCINE 5,000 UNIT/ML 1 ML VIAL SQ SCH ×3 (02:33→16:35)
[2023-03-28] MEDS: ZOLPIDEM 5 MG TAB PO PRN (02:35)
[2023-03-28] MEDS: ALBUTEROL NEBULIZED 2.5 MG/3 ML INHALATION PRN ×2 (05:14→21:13)
[2023-03-28 06:11] LABS: Glucose,Whole Blood 190 mg/dL (70-110)
[2023-03-28] MEDS: INSULIN ASPART (NovoLOG) 100 UNIT/ML VIAL SQ SCH ×4 (06:27→20:58)
[2023-03-28] MEDS: carvediloL 12.5 MG TAB PO SCH ×2 (06:27→16:35)
[2023-03-28] MEDS: ISOSORBIDE MONONITRATE ER 60 MG TAB.ER.24H PO SCH (08:27)
[2023-03-28] MEDS: hydrALAZINE HCL 25 MG TAB PO SCH ×2 (08:27→21:04)
[2023-03-28] MEDS: LORATADINE 10 MG TAB PO SCH (08:27)
[2023-03-28] MEDS: ASPIRIN 81 MG PO SCH (08:27)
[2023-03-28] MEDS: RANOLAZINE 500 MG TAB.ER.12H PO SCH ×2 (08:27→21:04)
[2023-03-28] MEDS: ESCITALOPRAM 10 MG TAB PO SCH (08:27)
[2023-03-28] MEDS: amLODIPine 5 MG TAB PO SCH ×2 (08:28→21:04)
[2023-03-28] MEDS: TORSEMIDE 20 MG TAB PO SCH (08:28)
[2023-03-28] MEDS: EZETIMIBE 10 MG TAB PO SCH (08:32)
[2023-03-28] MEDS: SYMBICORT 80-4.5 MCG INHALER INHALATION SCH ×2 (09:12→21:13)
[2023-03-28 09:52] LABS: HCT 27.4 % (39.0-53.0); HGB 8.9 gm/dL (13.0-17.5); MCH 30.3 pg (25.0-35.0); MCHC 32.7 g/dL (31.0-37.0); MCV 92.6 fL (80.0-100.0); Mean Platelet Volume 9.1; Platelet Count 206 k/uL (150-450); RBC 2.95 m/uL (4.30-5.90); RDW 13.4 % (11.5-15.5); WBC 6.2 k/uL (3.8-10.6)
[2023-03-28 10:17] LABS: African American GFR (CKD) 13 (>60 ml/min/1.73 sqM); Anion Gap 16 mmol/L; Blood Urea Nitrogen 60 mg/dL (9-20); Calcium 7.9 mg/dL (8.4-10.2); Carbon Dioxide 23 mmol/L (22-30); Chloride 90 mmol/L (98-107); Glucose 266 mg/dL (74-99); Non-African American GFR(CKD) 11 (>60 ml/min/1.73 sqM); Potassium 4.1 mmol/L (3.5-5.1); Sodium 129 mmol/L (137-145)
[2023-03-28 11:41] LABS: Glucose,Whole Blood 300 mg/dL (70-110)
--- NOTE | 2023-03-28 12:18 | P.PN ---
Subjective Patient is seen for follow-up for CK D. Status post cardiac catheterization on 03/11/2023 which showed significant coronary artery disease, currently maintained on medical therapy. Patient developed severe volume overload and respiratory distress and was eventually started on hemodialysis on 03/18/2023. Volume status has significantly improved. Respiratory status has improved as well. Plans for discharge today and patient will be maintained on a Tuesday schedule as outpatient. Urine output is low Objective - Vital Signs Vital signs: Vital Signs Temp 98.0 F 03/28/23 11:17 Pulse 67 03/28/23 11:17 Resp 18 03/28/23 11:27 BP 110/53 03/28/23 11:17 Pulse Ox 92 L 03/28/23 11:17 FiO2 Intake & Output 03/27/23 03/28/23 03/28/23 18:59 06:59 18:59 Intake Total 480 Output Total 200 Balance -200 480 Weight 100.3 kg Intake: Oral 480 Output: Urine 200 Uretheral (Tomlinson) 100 Other: Voiding Method Indwelling Catheter Indwelling Catheter Indwelling Catheter # Voids 0 - Exam Patient is awake comfortable Alert oriented 3 Examination of the heart S1 and S2 Examination of the lungs bilateral breath sounds are heard, decreased breath sounds at the bases Abdomen is soft nontender Examination of lower extremities shows 1+ edema DISEASE MANAGEMENT NURSE exam grossly intact - Labs CBC & Chem 7: 03/28/23 09:03 03/28/23 09:03 Labs: Abnormal Lab Results - Last 24 Hours (Table) 03/27/23 03/27/23 03/28/23 Range/Units 16:13 20:13 06:09 RBC (4.30-5.90) m/uL Hgb (13.0-17.5) gm/dL Hct (39.0-53.0) % Sodium (137-145) mmol/L Chloride (98-107) mmol/L BUN (9-20) mg/dL Creatinine (0.66-1.25) mg/dL Glucose (74-99) mg/dL POC Glucose (mg/dL) 308 H 166 H 190 H (70-110) mg/dL Calcium (8.4-10.2) mg/dL 03/28/23 03/28/23 03/28/23 Range/Units 09:03 09:03 11:39 RBC 2.95 L (4.30-5.90) m/uL Hgb 8.9 L (13.0-17.5) gm/dL Hct 27.4 L (39.0-53.0) % Sodium 129 L (137-145) mmol/L Chloride 90 L (98-107) mmol/L BUN 60 H (9-20) mg/dL Creatinine 4.78 H (0.66-1.25) mg/dL Glucose 266 H (74-99) mg/dL POC Glucose (mg/dL) 300 H (70-110) mg/dL Calcium 7.9 L (8.4-10.2) mg/dL Microbiology - Last 24 Hours (Table) 03/24/23 10:55 Blood Culture Gram Stain - Final Blood Blood Culture - Final Staphylococcus epidermidis Assessment and Plan Assessment: 1. Chronic kidney disease NKF stage IV with baseline creatinine around 3 mg/dL. Etiology is diabetic kidney disease. Started renal replacement therapy on 03/18/2023 due to worsening volume overload. 2. Coronary artery disease status post cardiac catheterization on 03/11/2023 with plans for possible further intervention on LAD, currently on hold. 3. Hypertensive urgency with improved blood pressures 4. CK D mineral bone disorder 5. Volume overload, improved 6. Non-gap metabolic acidosis associated with chronic kidney disease Plan: hemodialysis today for about 2-1/2 hours. Patient can be discharged from nephrology standpoint and follow-up as outpatient for hemodialysis again tomorrow. Continue with Demadex
[2023-03-28 14:32] LABS: Band Neutrophils % 4 %; Basophils # (M) 0.06 k/uL (0-0.2); Eosinophils # (M) 0.06 k/uL (0-0.7); Lymphocytes # (M) 0.62 k/uL (1.0-4.8); Monocytes # (M) 0.99 k/uL (0-1.0); Neutrophils % (M) 68 %; Nucleated Red Blood Cells 0 /100 WBC (0-0); Total Cells Counted 100
[2023-03-28 14:33] LABS: Rouleaux Present
[2023-03-28 16:31] LABS: Glucose,Whole Blood 186 mg/dL (70-110)
--- NOTE | 2023-03-28 17:17 | P.PN ---
Subjective Progress Note Date: 03/28/23 (delayed charting seen at approx 1025) Patient is a 72-year-old male with chronic kidney disease use, diabetes mellitus insulin requiring, coronary artery disease status post stenting, and hypertension who presented to the hospital due to exertional dyspnea and chest pain. He was admitted actually admitted for possible acute coronary syndrome. Cardiology was consulted. He underwent cardiac catheterization which showed coronary artery disease with a 40-50% mid distal left main stenosis, 50-60% mid LAD stenosis, 100% circumflex stenosis, and 50-60% mild RCA stenosis. Cath felt be fairly similar from 2017 was some progression of the left main disease. However, high risk for conitnued contrast exposure and recommends were made for initial conservative management wtih conitnued monitoring. His renal function, nephrology was following. Overnight on 03/18 patient developed worsening respiratory distress requiring increase of his oxygen from 6 to 15 L nasal cannula. He underwent thorough evaluation including a VQ scan which ruled out pulmonary embolism as well as a negative lower extremity venous Dopplers. His oxygenation continued to improve with repeat dialysis. He did develop some elevated temperatures and was subsequently found have a superficial thrombophlebitis. Patient seen and examined at bedside. His reports that he had an adverse reaction to ambien this morning. He is doing much better now. He denies any chest pain or shortness of breath. He wants to go home. Vital signs reviewed General: nontoxic, no distress, appears at stated age Cardiovascular: S1S2 reg, no murmur, positive posterior tibial pulse bilateral, Lungs: CTA bilateral, no rhonchi, no rales , no accessory muscle use Abdominal: soft, nontender to palpation, no guarding, no appreciable organomegaly Ext: no gross muscle atrophy, no edema b/l lower extremities, no contractures Neuro: CN II-XI grossly intact, no focal neuro deficits Psych: Alert, oriented, appropriate affect Assessment/Plan: Acute kidney injury on chronic kidney disease stage IV- now requiring HD Coronary artery disease status post cardiac cath 03/11/23 AUperficial thrombophelbitis Acute encephalopathy Chronic hypoxic respiratory failure Diabetes mellitus type 2 Anemia, stable-likely related to prolonged hospital stay and chronic kidney disease -Wean patient off of oxygen as much as able, now on room air - Norvasc 5 mg twice daily, Coreg 12.5 mg twice daily, hydralazine 25 mg twice daily, Crestor 40 mg at night - Aspirin 81 mg daily - Zetia 10 mg daily - Imdur 60 mg daily, Ranexa 1000 mg twice daily - Cefazolin (1g IV q8h) started for thrombophlebitis, ice packs requested; day 3/ --Pulmonary and cardiology has signed off. -Nephrology note reviewed: Follow-up outpatient with hemodialysis continue with Demadex. - SSI, it appears that the patients insulin pump is off. 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 I was notified by nursing that during his hemodialysis session he was noted to have drainage from his hemodialysis catheter Dr. Cadena was contacted who recommended blood cultures and continuing to monitor the area. Imaging [facility] [place] [facility]: VQ scan- no PE B/l LE venous dopplers- No DVT Right Upper Ext US ordered to rule out aneurysm of angiogram site - reviewed 03/25, was negative for aneurysm, showed superficial thrombophlebitis Echocardiogram from 01/21 shows ejection fraction 50-55% Data Review: Vitals reviewed from today and patient afebrile for the last 24 hours. He did have a fever of 101 on 03/25 and 100 on 03/24 Labs reviewed from today and hemoglobin 8.9, sodium 129, chloride 90, BUN 60, creatinine 4.78, blood sugar 186 DVT prophylaxis: Heparin Anticipated discharge date: in 24-[address]: home with This dictation was prepared using [employer] voice recognition software. Though every attempt is made to correct errors during dictation some may still exist. Objective - Vital Signs Vital signs: Vital Signs Temp 98.0 F 03/28/23 16:18 Pulse 67 03/28/23 11:17 Resp 18 03/28/23 16:18 BP 132/53 03/28/23 16:18 Pulse Ox 92 L 03/28/23 11:17 FiO2 Intake & Output 03/27/23 03/28/23 03/28/23 18:59 06:59 18:59 Intake Total 780 Output Total 200 3400 Balance -200 -2620 Weight 100.3 kg Intake: Oral 480 Hemodialysis 300 Output: Urine 200 Uretheral ([place]) 100 Hemodialysis 3400 Other: Voiding Method Indwelling Catheter Indwelling Catheter Indwelling Catheter # Voids 0 # Bowel Movements 1 - Labs CBC & Chem 7: 03/28/23 09:03 03/28/23 09:03 Labs: Abnormal Lab Results - Last 24 Hours (Table) 03/27/23 03/28/23 03/28/23 Range/Units 20:13 06:09 09:03 RBC 2.95 L (4.30-5.90) m/uL Hgb 8.9 L (13.0-17.5) gm/dL Hct 27.4 L (39.0-53.0) % Lymphocytes # (Manual) 0.62 L (1.0-4.8) k/uL Sodium (137-145) mmol/L Chloride (98-107) mmol/L BUN (9-20) mg/dL Creatinine (0.66-1.25) mg/dL Glucose (74-99) mg/dL POC Glucose (mg/dL) 166 H 190 H (70-110) mg/dL Calcium (8.4-10.2) mg/dL 03/28/23 03/28/23 03/28/23 Range/Units 09:03 11:39 16:30 RBC (4.30-5.90) m/uL Hgb (13.0-17.5) gm/dL Hct (39.0-53.0) % Lymphocytes # (Manual) (1.0-4.8) k/uL Sodium 129 L (137-145) mmol/L Chloride 90 L (98-107) mmol/L BUN 60 H (9-20) mg/dL Creatinine 4.78 H (0.66-1.25) mg/dL Glucose 266 H (74-99) mg/dL POC Glucose (mg/dL) 300 H 186 H (70-110) mg/dL Calcium 7.9 L (8.4-10.2) mg/dL
[2023-03-28 20:05] LABS: Glucose,Whole Blood 219 mg/dL (70-110)
[2023-03-28] MEDS: NON FORMULARY DRUG (Rosuvastatin Calcium [Crestor] 40 MG Tablet) PO SCH (20:59)
[2023-03-28] MEDS: PRAMIPEXOLE 0.5 MG TAB PO SCH (21:04)
[2023-03-28] MEDS: ALPRAZolam 0.5 MG TAB PO PRN (21:04)
[2023-03-29] MEDS: HEPARIN SODIUM,PORCINE 5,000 UNIT/ML 1 ML VIAL SQ SCH ×4 (00:05→22:56)
[2023-03-29 06:23] LABS: Glucose,Whole Blood 219 mg/dL (70-110)
[2023-03-29] MEDS: carvediloL 12.5 MG TAB PO SCH ×2 (06:31→17:11)
[2023-03-29] MEDS: INSULIN ASPART (NovoLOG) 100 UNIT/ML VIAL SQ SCH ×4 (06:31→21:56)
[2023-03-29 08:46] LABS: HCT 27.2 % (39.0-53.0); HGB 8.8 gm/dL (13.0-17.5); MCHC 32.5 g/dL (31.0-37.0); MCV 92.4 fL (80.0-100.0); Mean Platelet Volume 9.3; Platelet Count 217 k/uL (150-450); RBC 2.94 m/uL (4.30-5.90); RDW 13.5 % (11.5-15.5); WBC 6.4 k/uL (3.8-10.6)
[2023-03-29 09:00] LABS: African American GFR (CKD) 12 (>60 ml/min/1.73 sqM); Blood Urea Nitrogen 57 mg/dL (9-20); Calcium 7.9 mg/dL (8.4-10.2); Carbon Dioxide 24 mmol/L (22-30); Glucose 185 mg/dL (74-99); Non-African American GFR(CKD) 11 (>60 ml/min/1.73 sqM)
[2023-03-29] MEDS: SYMBICORT 80-4.5 MCG INHALER INHALATION SCH ×2 (09:10→20:38)
[2023-03-29] MEDS: ALBUTEROL NEBULIZED 2.5 MG/3 ML INHALATION PRN (09:10)
[2023-03-29 09:47] LABS: Anion Gap 15 mmol/L; Chloride 92 mmol/L (98-107); Potassium 3.8 mmol/L (3.5-5.1); Sodium 131 mmol/L (137-145)
--- NOTE | 2023-03-29 09:50 | CDI ---
Documentation Clarification Form Date: 03/29/2023 09:12:45 AM From: Pastora Church RN, CCDS Admit Date: 03/15/2023 12:22:00 PM Patient Name: Phan Luciano Visit Number: [id number] Discharge Date: ATTENTION: The Clinical Documentation Specialists (CDI) and [facility] Coding Staff appreciate your assistance in clarifying documentation. Please respond to the clarification below the line at the bottom and electronically sign. The CDI & [facility] Coding staff will review the response and follow-up if needed. Please note: Queries are made part of the Legal Health Record. If you have any questions, please contact the author of this message via ITS. Dr. Christelle Barroso Your patient has the acute encephalopathy documented in progress note on 03/28/2023. Additional clarification regarding the etiology/cause of this symptom is requested. History/Risk Factors: CKD, Hypertension, Coronary Artery Disease, Heart Failure, Diabetes Mellitus, Hyperlipidemia Clinical Indicators: 72-year-old presented to the hospital due to exertional dyspnea and chest pain. The progress note: His reports that he had an adverse reaction to Ambien this morning. He is doing much better now. 03/28 VS: (08:00) 145/82 98 16 97% RA 03/28 Labs: WBC 6.2 HGB 8.9, 27.7, NA+ 129, Cl 90, BUN, Cr 4.78 Treatment: DC Ambien Please clarify the etiology of acute encephalopathy. [ x] Toxic Encephalopathy due to adverse reaction to Ambien [ ] Metabolic Encephalopathy (specify cause) [ ] Other condition (please specify) [ ] Unable to determine (Template Last Revised: September 2020) MTDD
[2023-03-29] MEDS: LORATADINE 10 MG TAB PO SCH (09:58)
[2023-03-29] MEDS: EZETIMIBE 10 MG TAB PO SCH (09:58)
[2023-03-29] MEDS: RANOLAZINE 500 MG TAB.ER.12H PO SCH ×2 (09:58→22:55)
[2023-03-29] MEDS: ESCITALOPRAM 10 MG TAB PO SCH (09:58)
[2023-03-29] MEDS: ASPIRIN 81 MG PO SCH (09:58)
--- NOTE | 2023-03-29 11:01 | P.PN ---
Subjective Patient is seen for follow-up for CK D. Status post cardiac catheterization on 03/11/2023 which showed significant coronary artery disease, currently maintained on medical therapy. Patient developed severe volume overload and respiratory distress and was eventually started on hemodialysis on 03/18/2023. Volume status has significantly improved. Respiratory status has improved as well. Yesterday patient was noted to have significant discharge at the catheter site. Cultures were sent out. Patient is maintained on Ceftin which was initially started for thrombophlebitis. Repeat blood cultures have been ordered as well. Status post 3.4 L of ultrafiltration yesterday. Patient is scheduled for hemodialysis again today. Blood cultures will be drawn with dialysis. Objective - Vital Signs Vital signs: Vital Signs Temp 97.8 F 03/29/23 09:33 Pulse 69 03/29/23 09:35 Resp 16 03/29/23 09:35 BP 117/61 03/29/23 09:33 Pulse Ox 98 03/29/23 09:33 FiO2 Intake & Output 03/28/23 03/29/23 03/29/23 18:59 06:59 18:59 Intake Total 780 170 Output Total 3400 Balance -2620 170 Intake: Intake, IV Titration 50 Amount ceFAZolin 1,000 mg In 50 Sodium Chloride 0.9% 50 ml @ 100 mls/hr IVPB Q12H [facility] Rx#:[id number] Oral 480 120 Hemodialysis 300 Output: Hemodialysis 3400 Other: Voiding Method Indwelling Catheter Urinal Urinal # Bowel Movements 1 - Exam Patient is awake comfortable Alert oriented 3 Examination of the heart S1 and S2 Examination of the lungs bilateral breath sounds are heard, decreased breath sounds at the bases Abdomen is soft nontender Examination of lower extremities shows 1+ edema FRAME OPENER exam grossly intact - Labs CBC & Chem 7: 03/29/23 07:54 03/29/23 07:54 Labs: Abnormal Lab Results - Last 24 Hours (Table) 03/28/23 03/28/23 03/28/23 Range/Units 09:03 11:39 16:30 RBC (4.30-5.90) m/uL Hgb (13.0-17.5) gm/dL Hct (39.0-53.0) % Lymphocytes # (Manual) 0.62 L (1.0-4.8) k/uL Sodium (137-145) mmol/L Chloride (98-107) mmol/L BUN (9-20) mg/dL Creatinine (0.66-1.25) mg/dL Glucose (74-99) mg/dL POC Glucose (mg/dL) 300 H 186 H (70-110) mg/dL Calcium (8.4-10.2) mg/dL Procalcitonin (0.02-0.09) ng/mL 03/28/23 03/28/23 03/29/23 Range/Units 18:45 20:03 06:21 RBC (4.30-5.90) m/uL Hgb (13.0-17.5) gm/dL Hct (39.0-53.0) % Lymphocytes # (Manual) (1.0-4.8) k/uL Sodium (137-145) mmol/L Chloride (98-107) mmol/L BUN (9-20) mg/dL Creatinine (0.66-1.25) mg/dL Glucose (74-99) mg/dL POC Glucose (mg/dL) 219 H 219 H (70-110) mg/dL Calcium (8.4-10.2) mg/dL Procalcitonin 2.01 H (0.02-0.09) ng/mL 03/29/23 03/29/23 Range/Units 07:54 07:54 RBC 2.94 L (4.30-5.90) m/uL Hgb 8.8 L (13.0-17.5) gm/dL Hct 27.2 L (39.0-53.0) % Lymphocytes # (Manual) (1.0-4.8) k/uL Sodium 131 L (137-145) mmol/L Chloride 92 L (98-107) mmol/L BUN 57 H (9-20) mg/dL Creatinine 4.94 H (0.66-1.25) mg/dL Glucose 185 H (74-99) mg/dL POC Glucose (mg/dL) (70-110) mg/dL Calcium 7.9 L (8.4-10.2) mg/dL Procalcitonin (0.02-0.09) ng/mL Microbiology - Last 24 Hours (Table) 03/28/23 13:50 Gram Stain - Preliminary Catheter Site Wound Culture - Preliminary Assessment and Plan Assessment: 1. Chronic kidney disease NKF stage IV with baseline creatinine around 3 mg/dL. Etiology is diabetic kidney disease. Started renal replacement therapy on 03/18/2023 due to worsening volume overload. 2. Coronary artery disease status post cardiac catheterization on 03/11/2023 with plans for possible further intervention on LAD, currently on hold. 3. Hypertensive urgency with improved blood pressures 4. CK D mineral bone disorder 5. Volume overload, improved 6. Non-gap metabolic acidosis associated with chronic kidney disease 7. Exit site infection maintained on Ceftin. Repeat blood cultures will be drawn today with hemodialysis. Wound culture is growing gram-positive cocci. Plan: hemodialysis today for 3 hours Drop blood cultures with hemodialysis today Continue with Ceftin Follow-up on final culture from exit site.
[2023-03-29 11:51] LABS: Glucose,Whole Blood 200 mg/dL (70-110)
[2023-03-29] MEDS: ISOSORBIDE MONONITRATE ER 60 MG TAB.ER.24H PO SCH (15:48)
[2023-03-29] MEDS: TORSEMIDE 20 MG TAB PO SCH (15:48)
[2023-03-29] MEDS: hydrALAZINE HCL 25 MG TAB PO SCH ×2 (15:48→22:56)
[2023-03-29] MEDS: amLODIPine 5 MG TAB PO SCH ×2 (15:49→22:56)
--- NOTE | 2023-03-29 15:50 | P.PN ---
Subjective Progress Note Date: 03/29/23 (delayed charting seen at 0945) Patient is a 72-year-old male with chronic kidney disease use, diabetes mellitus insulin requiring, coronary artery disease status post stenting, and hypert ension who presented to the hospital due to exertional dyspnea and chest pain. He was admitted actually admitted for possible acute coronary syndrome. Cardiology was consulted. He underwent cardiac catheterization which showed coronary artery disease with a 40-50% mid distal left main stenosis, 50-60% mid LAD stenosis, 100% circumflex stenosis, and 50-60% mild RCA stenosis. Cath felt be fairly similar from 2017 was some progression of the left main disease. However, high risk for conitnued contrast exposure and recommends were made for initial conservative management wtih conitnued monitoring. His renal function, nephrology was following. Overnight on 03/18 patient developed worsening re spiratory distress requiring increase of his oxygen from 6 to 15 L nasal cannula. He underwent thorough evaluation including a VQ scan which ruled out pulmonary embolism as well as a negative lower extremity venous Dopplers. His oxygenation continued to improve with repeat dialysis. He did develop some elevated temperatures and was subsequently found have a superficial thrombophlebitis. Plan had been for discharge on 03/29/23. However when he went to have dialysis it was discovered he was having gelatinous discharge summary which was purulent from his right chest wall hemodialysis catheter. At that point in time cultures were taken. Pro-calcitonin elevated at 2. Patient seen and examined at bedside with present. All questions were answered in detail. He denies any chest pain, shortness breath, nausea, vomiting. He is feeling better today than yesterday. We did discuss the possibility of a superficial soft tissue infection versus bloodstream infection and needing to await cultures. Vital signs reviewed General: nontoxic, no distress, appears at stated age Cardiovascular: S1S2 reg, no murmur, positive posterior tibial pulse bilateral, Lungs: CTA bilateral, no rhonchi, no rales , no accessory muscle use Abdominal: soft, nontender to palpation, no guarding, no appreciable organomegaly Ext: no gross muscle atrophy, no edema b/l lower extremities, no contractures Neuro: CN II-XI grossly intact, no focal neuro deficits Psych: Alert, oriented, appropriate affect Assessment/Plan: Acute kidney injury on chronic kidney disease stage IV- now requiring HD Coronary artery disease status post cardiac cath 03/11/23 AUperficial thrombophelbitis Acute encephalopathy Chronic hypoxic respiratory failure Diabetes mellitus type 2 Anemia, stable-likely related to prolonged hospital stay and chronic kidney disease - Norvasc 5 mg twice daily, Coreg 12.5 mg twice daily, hydralazine 25 mg twice daily, Crestor 40 mg at night - Aspirin 81 mg daily - Zetia 10 mg daily - Imdur 60 mg daily, Ranexa 1000 mg twice daily - Cefazolin (1g IV q8h) started for thrombophlebitis, day 12/03 will continue given drainage from HD site. --Pulmonary and cardiology has signed off. - D/W nephrology, see below. - d/w and she will bring supplies to the hosptial to resume isulin pump, once this is done sliding scale insulin will be discontinued, as that way if insulin pump adjustments are needed they can be made. Drainiage from around HD cath - pro-calcitonin elevated at 2 -Await repeat blood cultures -Continue cefazolin -Await fluid culture -Case discussed with Dr. Cadena in detail. Patient initially had fevers on 03/24 and was subsequently diagnosed with superficial thrombophlebitis and started on cefazolin. Also during that time blood cultures were obtained and resulted in staff at the, which was considered a contaminant. Due to continued drainage from the hemodialysis catheter there is a concern that there could be a com ponent of a bacteremia. Repeat peripheral blood cultures were obtained on 03/28. Blood cultures from the hemodialysis catheter will be obtained today with hemodialysis. 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 Pulse 69, respirations 16, blood pressure 117/61, O2 sat 98% on 3 L Plans reviewed and remarkable for hemoglobin 8.8, sodium 131, BUN 57, creatinine 4.94 Blood sugars reviewed and fasting 219 1149 200 DVT prophylaxis: Heparin Anticipated discharge date: in 3-[address]: home with This dictation was prepared using [employer] voice recognition software. Though every attempt is made to correct errors during dictation some may still exist. Objective - Vital Signs Vital signs: Vital Signs Temp 97.8 F 03/29/23 14:53 Pulse 62 03/29/23 14:53 Resp 19 03/29/23 14:53 BP 133/73 03/29/23 14:53 Pulse Ox 98 03/29/23 12:00 FiO2 Intake & Output 03/28/23 03/29/23 03/29/23 18:59 06:59 18:59 Intake Total 780 170 300 Output Total 3400 3500 Balance -2620 170 -3200 Intake: Intake, IV Titration 50 Amount ceFAZolin 1,000 mg In 50 Sodium Chloride 0.9% 50 ml @ 100 mls/hr IVPB Q12H [facility] Rx#:[id number] Oral 480 120 Hemodialysis 300 300 Output: Hemodialysis 3400 3500 Other: Voiding Method Indwelling Catheter Urinal Urinal # Bowel Movements 1 - Labs CBC & Chem 7: 03/29/23 07:54 03/29/23 07:54 Labs: Abnormal Lab Results - Last 24 Hours (Table) 03/28/23 03/28/23 03/28/23 Range/Units 16:30 18:45 20:03 RBC (4.30-5.90) m/uL Hgb (13.0-17.5) gm/dL Hct (39.0-53.0) % Sodium (137-145) mmol/L Chloride (98-107) mmol/L BUN (9-20) mg/dL Creatinine (0.66-1.25) mg/dL Glucose (74-99) mg/dL POC Glucose (mg/dL) 186 H 219 H (70-110) mg/dL Calcium (8.4-10.2) mg/dL Procalcitonin 2.01 H (0.02-0.09) ng/mL 03/29/23 03/29/23 03/29/23 Range/Units 06:21 07:54 07:54 RBC 2.94 L (4.30-5.90) m/uL Hgb 8.8 L (13.0-17.5) gm/dL Hct 27.2 L (39.0-53.0) % Sodium 131 L (137-145) mmol/L Chloride 92 L (98-107) mmol/L BUN 57 H (9-20) mg/dL Creatinine 4.94 H (0.66-1.25) mg/dL Glucose 185 H (74-99) mg/dL POC Glucose (mg/dL) 219 H (70-110) mg/dL Calcium 7.9 L (8.4-10.2) mg/dL Procalcitonin (0.02-0.09) ng/mL 03/29/23 Range/Units 11:49 RBC (4.30-5.90) m/uL Hgb (13.0-17.5) gm/dL Hct (39.0-53.0) % Sodium (137-145) mmol/L Chloride (98-107) mmol/L BUN (9-20) mg/dL Creatinine (0.66-1.25) mg/dL Glucose (74-99) mg/dL POC Glucose (mg/dL) 200 H (70-110) mg/dL Calcium (8.4-10.2) mg/dL Procalcitonin (0.02-0.09) ng/mL Microbiology - Last 24 Hours (Table) 03/28/23 13:50 Gram Stain - Preliminary Catheter Site Wound Culture - Preliminary
[2023-03-29 16:47] LABS: Glucose,Whole Blood 329 mg/dL (70-110)
[2023-03-29] MEDS: DARBEPOETIN ALFA 40 MCG/0.4 ML SYRINGE SQ SCH (17:56)
[2023-03-29 20:04] LABS: Glucose,Whole Blood 293 mg/dL (70-110)
[2023-03-29] MEDS: NON FORMULARY DRUG (Rosuvastatin Calcium [Crestor] 40 MG Tablet) PO SCH (21:56)
[2023-03-29] MEDS: ALPRAZolam 0.5 MG TAB PO PRN (22:55)
[2023-03-29] MEDS: PRAMIPEXOLE 0.5 MG TAB PO SCH (22:55)
[2023-03-30 05:54] LABS: Glucose,Whole Blood 186 mg/dL (70-110)
[2023-03-30] MEDS: carvediloL 12.5 MG TAB PO SCH ×2 (07:35→16:13)
[2023-03-30] MEDS: INSULIN ASPART (NovoLOG) 100 UNIT/ML VIAL SQ SCH (07:40)
[2023-03-30 08:01] LABS: HCT 27.1 % (39.0-53.0); MCH 30.6 pg (25.0-35.0); MCHC 33.2 g/dL (31.0-37.0); MCV 91.9 fL (80.0-100.0); Mean Platelet Volume 9.3; Platelet Count 221 k/uL (150-450); RBC 2.94 m/uL (4.30-5.90); RDW 13.5 % (11.5-15.5)
[2023-03-30] MEDS: amLODIPine 5 MG TAB PO SCH ×2 (08:03→20:40)
[2023-03-30] MEDS: TORSEMIDE 20 MG TAB PO SCH (08:04)
[2023-03-30] MEDS: ISOSORBIDE MONONITRATE ER 60 MG TAB.ER.24H PO SCH (08:04)
[2023-03-30] MEDS: RANOLAZINE 500 MG TAB.ER.12H PO SCH ×2 (08:04→20:44)
[2023-03-30] MEDS: hydrALAZINE HCL 25 MG TAB PO SCH ×2 (08:05→20:41)
[2023-03-30] MEDS: LORATADINE 10 MG TAB PO SCH (08:05)
[2023-03-30] MEDS: ESCITALOPRAM 10 MG TAB PO SCH (08:05)
[2023-03-30] MEDS: EZETIMIBE 10 MG TAB PO SCH (08:05)
[2023-03-30] MEDS: HEPARIN SODIUM,PORCINE 5,000 UNIT/ML 1 ML VIAL SQ SCH ×2 (08:05→16:13)
[2023-03-30] MEDS: ASPIRIN 81 MG PO SCH (08:05)
[2023-03-30 08:15] LABS: African American GFR (CKD) 13 (>60 ml/min/1.73 sqM); Anion Gap 14 mmol/L; Blood Urea Nitrogen 52 mg/dL (9-20); Calcium 7.9 mg/dL (8.4-10.2); Carbon Dioxide 24 mmol/L (22-30); Chloride 93 mmol/L (98-107); Glucose 188 mg/dL (74-99); Non-African American GFR(CKD) 12 (>60 ml/min/1.73 sqM); Potassium 3.7 mmol/L (3.5-5.1); Sodium 131 mmol/L (137-145)
[2023-03-30] MEDS: SYMBICORT 80-4.5 MCG INHALER INHALATION SCH ×2 (09:15→21:55)
[2023-03-30 11:28] LABS: Glucose,Whole Blood 222 mg/dL (70-110)
--- NOTE | 2023-03-30 11:39 | P.PN ---
Subjective Patient is seen for follow-up for CK D. Status post cardiac catheterization on 03/11/2023 which showed significant coronary artery disease, currently maintained on medical therapy. Patient developed severe volume overload and respiratory distress and was eventually started on hemodialysis on 03/18/2023. Volume status has significantly improved. Respiratory status has improved as well. This morning patient complained of lightheadedness and dizziness. Blood pressure was low with systolic in the 90s. Repeat blood pressure is better at 113/59. Afebrile Objective - Vital Signs Vital signs: Vital Signs Temp 97.7 F 03/30/23 11:00 Pulse 69 03/30/23 11:00 Resp 18 03/30/23 11:00 BP 113/59 03/30/23 11:00 Pulse Ox 92 L 03/30/23 11:00 FiO2 Intake & Output 03/29/23 03/30/23 03/30/23 18:59 06:59 18:59 Intake Total 537 0 Output Total 4100 Balance -3563 0 Weight 96.3 kg Intake: Oral 237 0 Hemodialysis 300 Output: Urine 600 Straight 600 Hemodialysis 3500 Other: Voiding Method Urinal Urinal Urinal # Voids 0 0 - Exam Patient is awake comfortable Alert oriented 3 Examination of the heart S1 and S2 Examination of the lungs bilateral breath sounds are heard, decreased breath sounds at the bases Abdomen is soft nontender Examination of lower extremities shows 1+ edema COLORECTAL SURGEON exam grossly intact - Labs CBC & Chem 7: 03/30/23 07:46 03/30/23 07:46 Labs: Abnormal Lab Results - Last 24 Hours (Table) 03/29/23 03/29/23 03/29/23 Range/Units 11:49 16:46 20:02 RBC (4.30-5.90) m/uL Hgb (13.0-17.5) gm/dL Hct (39.0-53.0) % Sodium (137-145) mmol/L Chloride (98-107) mmol/L BUN (9-20) mg/dL Creatinine (0.66-1.25) mg/dL Glucose (74-99) mg/dL POC Glucose (mg/dL) 200 H 329 H 293 H (70-110) mg/dL Calcium (8.4-10.2) mg/dL 03/30/23 03/30/23 03/30/23 Range/Units 05:47 07:46 07:46 RBC 2.94 L (4.30-5.90) m/uL Hgb 9.0 L (13.0-17.5) gm/dL Hct 27.1 L (39.0-53.0) % Sodium 131 L (137-145) mmol/L Chloride 93 L (98-107) mmol/L BUN 52 H (9-20) mg/dL Creatinine 4.64 H (0.66-1.25) mg/dL Glucose 188 H (74-99) mg/dL POC Glucose (mg/dL) 186 H (70-110) mg/dL Calcium 7.9 L (8.4-10.2) mg/dL 03/30/23 Range/Units 11:26 RBC (4.30-5.90) m/uL Hgb (13.0-17.5) gm/dL Hct (39.0-53.0) % Sodium (137-145) mmol/L Chloride (98-107) mmol/L BUN (9-20) mg/dL Creatinine (0.66-1.25) mg/dL Glucose (74-99) mg/dL POC Glucose (mg/dL) 222 H (70-110) mg/dL Calcium (8.4-10.2) mg/dL Microbiology - Last 24 Hours (Table) 03/28/23 13:50 Gram Stain - Final Catheter Site Wound Culture - Final 03/28/23 18:45 Blood Culture - Preliminary Blood 03/28/23 18:50 Blood Culture - Preliminary Blood Assessment and Plan Assessment: 1. Chronic kidney disease NKF stage IV with baseline creatinine around 3 mg/dL. Etiology is diabetic kidney disease. Started renal replacement therapy on 03/18/2023 due to worsening volume overload. 2. Coronary artery disease status post cardiac catheterization on 03/11/2023 with plans for possible further intervention on LAD, currently on hold. 3. Hypertensive urgency with improved blood pressures 4. CK D mineral bone disorder 5. Volume overload, improved 6. Non-gap metabolic acidosis associated with chronic kidney disease 7. Exit site infection maintained on Ceftin. Wound culture shows rare gram- positive cocci. Blood cultures are pending. Initial blood culture on 03/24/2023 grew Staphylococcus epidermidis Plan: hemodialysis in a.m. Decrease UF with hemodialysis now as volume status significantly improved. Follow-up on blood cultures Continue with cefazolin
[2023-03-30 16:41] LABS: Glucose,Whole Blood 405 mg/dL (70-110)
[2023-03-30] MEDS ORDERED: INSPUCOR MISCELLANE PRN (18:19)
[2023-03-30] MEDS ORDERED: INSULIN PUMP BASAL RATES 1 EACH MISC MISCELLANE PRN (18:19)
[2023-03-30] MEDS ORDERED: INSULIN ASPART (NovoLOG) 100 UNIT/ML VIAL SQ PRN (18:19)
--- NOTE | 2023-03-30 18:34 | P.PN ---
Subjective Progress Note Date: 03/30/23 (delayed charting seen at 1145) Patient is a 72-year-old male with chronic kidney disease use, diabetes mellitus insulin requiring, coronary artery disease status post stenting, and hypert ension who presented to the hospital due to exertional dyspnea and chest pain. He was admitted actually admitted for possible acute coronary syndrome. Cardiology was consulted. He underwent cardiac catheterization which showed coronary artery disease with a 40-50% mid distal left main stenosis, 50-60% mid LAD stenosis, 100% circumflex stenosis, and 50-60% mild RCA stenosis. Cath felt be fairly similar from 2017 was some progression of the left main disease. However, high risk for conitnued contrast exposure and recommends were made for initial conservative management wtih conitnued monitoring. His renal function, nephrology was following. Overnight on 03/18 patient developed worsening re spiratory distress requiring increase of his oxygen from 6 to 15 L nasal cannula. He underwent thorough evaluation including a VQ scan which ruled out pulmonary embolism as well as a negative lower extremity venous Dopplers. His oxygenation continued to improve with repeat dialysis. He did develop some elevated temperatures and was subsequently found have a superficial thrombophlebitis. Plan had been for discharge on 03/29/23. However when he went to have dialysis it was discovered he was having gelatinous discharge summary which was purulent from his right chest wall hemodialysis catheter. At that point in time cultures were taken. Pro-calcitonin elevated at 2. He was continued on cefazolin. Patient seen and examined at bedside with his . He did get rather dizzy when attempting to stand earlier today and the nurse believes his blood pressure dropped but he gets so symptomatic from wine from laying to sitting they did not check standing however his blood pressure only dropped 12 mmHg. Discussed with him and his and there has been a 40 point difference between his blood sugar on his glucometer and our blood sugars. Will continue with Insulin pump Vital signs reviewed General: nontoxic, no distress, appears at stated age Cardiovascular: S1S2 reg, no murmur, positive posterior tibial pulse bilateral, Lungs: CTA bilateral, no rhonchi, no rales , no accessory muscle use Abdominal: soft, nontender to palpation, no guarding, no appreciable organomegaly Ext: no gross muscle atrophy, no edema b/l lower extremities, no contracture Neuro: CN II-XI grossly intact, no focal neuro deficits Psych: Alert, oriented, appropriate affect Assessment/Plan: Acute kidney injury on chronic kidney disease stage IV- now requiring HD Coronary artery disease status post cardiac cath 03/11/23 Superficial thrombophelbitis Acute encephalopathy Chronic hypoxic respiratory failure Diabetes mellitus type 2 Anemia, stable-likely related to prolonged hospital stay and chronic kidney disease -Nephrology note reviewed: Decreased UR with hemodialysis given volume status greatly improved, HD in AM - Norvasc 5 mg twice daily, Coreg 12.5 mg twice daily, hydralazine 25 mg twice daily, Crestor 40 mg at night - Aspirin 81 mg daily - Zetia 10 mg daily - Imdur 60 mg daily, Ranexa 1000 mg twice daily - Cefazolin (1g IV q8h) started for thrombophlebitis, day 6 will continue until BC negative --Pulmonary and cardiology signed off. - Continue with insulin pump, we will continue to monitor blood sugars. Dizziness with standing - check orthostatic vital signs Drainage from around HD cath - pro-calcitonin decreasing from 2 to 1.84 -Repeat blood cultures negative to date -Continue cefazolin -fluid culture is negative - could consider discharge if blood cultures remain negative D/W CM and patient cannot start HD on Tuesday so will need to be discharge after Tuesday HD if remains stable. 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 Heart rate 70, respirations 18, blood pressure 116/56, O2 sat 96% on room air Laboratory data remarkable for hemoglobin 9, sodium 131, BUN 52, creatinine or 0.64, pro calcitonin decreased at 1.58 Blood cultures negative for 24 hours peripheral blood Cultures blood from hemodialysis catheter: Pending Wound culture: No growth DVT prophylaxis: Heparin Anticipated discharge date: in 3-[address]: home with This dictation was prepared using [employer] voice recognition software. Though every attempt is made to correct errors during dictation some may still exist. Objective - Vital Signs Vital signs: Vital Signs Temp 97.1 F L 03/30/23 16:11 Pulse 97 03/30/23 16:11 Resp 18 03/30/23 16:11 BP 111/53 03/30/23 16:11 Pulse Ox 97 03/30/23 16:11 FiO2 Intake & Output 03/29/23 03/30/23 03/30/23 18:59 06:59 18:59 Intake Total 537 318 Output Total 4100 Balance -3563 318 Weight 96.3 kg Intake: Oral 237 318 Hemodialysis 300 Output: Urine 600 Straight 600 Hemodialysis 3500 Other: Voiding Method Urinal Urinal Urinal # Voids 0 0 - Labs CBC & Chem 7: 03/30/23 07:46 03/30/23 07:46 Labs: Abnormal Lab Results - Last 24 Hours (Table) 03/29/23 03/30/23 03/30/23 Range/Units 20:02 05:47 07:46 RBC (4.30-5.90) m/uL Hgb (13.0-17.5) gm/dL Hct (39.0-53.0) % Sodium (137-145) mmol/L Chloride (98-107) mmol/L BUN (9-20) mg/dL Creatinine (0.66-1.25) mg/dL Glucose (74-99) mg/dL POC Glucose (mg/dL) 293 H 186 H (70-110) mg/dL Calcium (8.4-10.2) mg/dL Procalcitonin 1.58 H (0.02-0.09) ng/mL 03/30/23 03/30/23 03/30/23 Range/Units 07:46 07:46 11:26 RBC 2.94 L (4.30-5.90) m/uL Hgb 9.0 L (13.0-17.5) gm/dL Hct 27.1 L (39.0-53.0) % Sodium 131 L (137-145) mmol/L Chloride 93 L (98-107) mmol/L BUN 52 H (9-20) mg/dL Creatinine 4.64 H (0.66-1.25) mg/dL Glucose 188 H (74-99) mg/dL POC Glucose (mg/dL) 222 H (70-110) mg/dL Calcium 7.9 L (8.4-10.2) mg/dL Procalcitonin (0.02-0.09) ng/mL 03/30/23 Range/Units 16:39 RBC (4.30-5.90) m/uL Hgb (13.0-17.5) gm/dL Hct (39.0-53.0) % Sodium (137-145) mmol/L Chloride (98-107) mmol/L BUN (9-20) mg/dL Creatinine (0.66-1.25) mg/dL Glucose (74-99) mg/dL POC Glucose (mg/dL) 405 H (70-110) mg/dL Calcium (8.4-10.2) mg/dL Procalcitonin (0.02-0.09) ng/mL Microbiology - Last 24 Hours (Table) 03/28/23 13:50 Gram Stain - Final Catheter Site Wound Culture - Final 03/28/23 18:45 Blood Culture - Preliminary Blood 03/28/23 18:50 Blood Culture - Preliminary Blood
[2023-03-30 20:02] LABS: Glucose,Whole Blood 245 mg/dL (70-110)
[2023-03-30] MEDS: NON FORMULARY DRUG (Rosuvastatin Calcium [Crestor] 40 MG Tablet) PO SCH (20:40)
[2023-03-30] MEDS: PRAMIPEXOLE 0.5 MG TAB PO SCH (20:44)
[2023-03-30] MEDS: INSULIN PUMP MEAL BOLUS 1 UNIT MISC MISCELLANE SCH (20:46)
[2023-03-30] MEDS: ALBUTEROL NEBULIZED 2.5 MG/3 ML INHALATION PRN (21:55)
[2023-03-30 23:20] LABS: Glucose,Whole Blood 96 mg/dL (70-110)
[2023-03-31] MEDS: ALPRAZolam 0.5 MG TAB PO PRN ×2 (01:01→23:32)
[2023-03-31] MEDS: HEPARIN SODIUM,PORCINE 5,000 UNIT/ML 1 ML VIAL SQ SCH ×4 (01:02→23:32)
[2023-03-31 06:11] LABS: Glucose,Whole Blood 147 mg/dL (70-110)
[2023-03-31] MEDS: INSULIN PUMP MEAL BOLUS 1 UNIT MISC MISCELLANE SCH ×4 (06:12→21:11)
[2023-03-31] MEDS: ISOSORBIDE MONONITRATE ER 60 MG TAB.ER.24H PO SCH (07:40)
[2023-03-31] MEDS: ASPIRIN 81 MG PO SCH (07:40)
[2023-03-31] MEDS: TORSEMIDE 20 MG TAB PO SCH (07:40)
[2023-03-31] MEDS: LORATADINE 10 MG TAB PO SCH (07:40)
[2023-03-31] MEDS: EZETIMIBE 10 MG TAB PO SCH (07:40)
[2023-03-31] MEDS: ESCITALOPRAM 10 MG TAB PO SCH (07:40)
[2023-03-31] MEDS: RANOLAZINE 500 MG TAB.ER.12H PO SCH ×2 (07:41→21:03)
[2023-03-31 08:16] LABS: HCT 26.1 % (39.0-53.0); HGB 8.7 gm/dL (13.0-17.5); MCH 30.6 pg (25.0-35.0); MCHC 33.5 g/dL (31.0-37.0); MCV 91.5 fL (80.0-100.0); Platelet Count 258 k/uL (150-450); RBC 2.86 m/uL (4.30-5.90); RDW 13.5 % (11.5-15.5); WBC 6.1 k/uL (3.8-10.6)
[2023-03-31] MEDS: SYMBICORT 80-4.5 MCG INHALER INHALATION SCH ×2 (09:09→20:08)
[2023-03-31 10:23] LABS: African American GFR (CKD) 10 (>60 ml/min/1.73 sqM); Anion Gap 15 mmol/L; Blood Urea Nitrogen 64 mg/dL (9-20); Calcium 8.1 mg/dL (8.4-10.2); Carbon Dioxide 23 mmol/L (22-30); Chloride 93 mmol/L (98-107); Glucose 189 mg/dL (74-99); Non-African American GFR(CKD) 9 (>60 ml/min/1.73 sqM); Potassium 4.4 mmol/L (3.5-5.1); Sodium 131 mmol/L (137-145)
--- NOTE | 2023-03-31 11:06 | P.PN ---
Subjective Patient is seen for follow-up for CK D. Status post cardiac catheterization on 03/11/2023 which showed significant coronary artery disease, currently maintained on medical therapy. Patient developed severe volume overload and respiratory distress and was eventually started on hemodialysis on 03/18/2023. Volume status has significantly improved. Respiratory status has improved as well. Overall doing better. No complaints of dizziness or lightheadedness. Blood pressure is staying 120 to 130s systolic. Patient is scheduled for hemodialysis today. Objective - Vital Signs Vital signs: Vital Signs Temp 97.8 F 03/31/23 07:34 Pulse 64 03/31/23 11:00 Resp 16 03/31/23 07:34 BP 122/60 03/31/23 11:00 Pulse Ox 98 03/31/23 07:34 FiO2 Intake & Output 03/30/23 03/31/23 03/31/23 18:59 06:59 18:59 Intake Total 318 240 714 Output Total 150 Balance 318 90 714 Weight 98.2 kg Intake: Oral 318 240 714 Output: Urine 150 Other: Voiding Method Urinal Urinal Urinal # Voids 0 - Exam Patient is awake comfortable Alert oriented 3 Examination of the heart S1 and S2 Examination of the lungs bilateral breath sounds are heard, decreased breath sounds at the bases Abdomen is soft nontender Examination of lower extremities shows trace edema 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 - Labs CBC & Chem 7: 03/31/23 07:44 03/31/23 07:44 Labs: Abnormal Lab Results - Last 24 Hours (Table) 03/30/23 03/30/23 03/30/23 Range/Units 07:46 11:26 16:39 RBC (4.30-5.90) m/uL Hgb (13.0-17.5) gm/dL Hct (39.0-53.0) % Sodium (137-145) mmol/L Chloride (98-107) mmol/L BUN (9-20) mg/dL Creatinine (0.66-1.25) mg/dL Glucose (74-99) mg/dL POC Glucose (mg/dL) 222 H 405 H (70-110) mg/dL Calcium (8.4-10.2) mg/dL Procalcitonin 1.58 H (0.02-0.09) ng/mL 03/30/23 03/31/23 03/31/23 Range/Units 20:01 06:02 07:44 RBC 2.86 L (4.30-5.90) m/uL Hgb 8.7 L (13.0-17.5) gm/dL Hct 26.1 L (39.0-53.0) % Sodium (137-145) mmol/L Chloride (98-107) mmol/L BUN (9-20) mg/dL Creatinine (0.66-1.25) mg/dL Glucose (74-99) mg/dL POC Glucose (mg/dL) 245 H 147 H (70-110) mg/dL Calcium (8.4-10.2) mg/dL Procalcitonin (0.02-0.09) ng/mL 03/31/23 Range/Units 07:44 RBC (4.30-5.90) m/uL Hgb (13.0-17.5) gm/dL Hct (39.0-53.0) % Sodium 131 L (137-145) mmol/L Chloride 93 L (98-107) mmol/L BUN 64 H (9-20) mg/dL Creatinine 5.72 H (0.66-1.25) mg/dL Glucose 189 H (74-99) mg/dL POC Glucose (mg/dL) (70-110) mg/dL Calcium 8.1 L (8.4-10.2) mg/dL Procalcitonin (0.02-0.09) ng/mL Microbiology - Last 24 Hours (Table) 03/28/23 18:45 Blood Culture - Preliminary Blood 03/28/23 18:50 Blood Culture - Preliminary Blood 03/29/23 12:00 Blood Culture - Preliminary Blood 03/28/23 13:50 Gram Stain - Final Catheter Site Wound Culture - Final Assessment and Plan Assessment: 1. Chronic kidney disease NKF stage IV with baseline creatinine around 3 mg/dL. Etiology is diabetic kidney disease. Started renal replacement therapy on 03/18/2023 due to worsening volume overload. 2. Coronary artery disease status post cardiac catheterization on 03/11/2023, currently with no plans for intervention 3. Hypertensive urgency with improved blood pressures 4. CK D mineral bone disorder 5. Volume overload, improved 6. Non-gap metabolic acidosis associated with chronic kidney disease 7. Exit site infection maintained on Ceftin. Wound culture shows rare gram- positive cocci. Blood cultures are pending. Initial blood culture on 03/24/2023 grew Staphylococcus epidermidis Plan: hemodialysis today Decrease UF with hemodialysis now as volume status significantly improved. Follow-up on blood cultures Continue with cefazolin
[2023-03-31 11:54] LABS: Glucose,Whole Blood 226 mg/dL (70-110)
--- NOTE | 2023-03-31 14:30 | P.PN ---
Subjective Progress Note Date: 03/31/23 Patient is a 72-year-old male with chronic kidney disease use, diabetes mellitus insulin requiring, coronary artery disease status post stenting, and hypertension who presented to the hospital due to exertional dyspnea and chest pain. He was admitted for possible acute coronary syndrome. Cardiology was consulted. He underwent cardiac catheterization which showed coronary artery disease with a 40-50% mid distal left main stenosis, 50-60% mid LAD stenosis, 100% circumflex stenosis, and 50-60% mild RCA stenosis. Cath felt be fairly similar from 2017 was some progression of the left main disease. However, high risk for continued contrast exposure and recommendations were made for initial conservative management wtih continued monitoring. His renal function worsened, nephrology was following. Overnight on 03/18 patient developed worsening respiratory distress requiring increase of his oxygen from 6 to 15 L nasal cannula. He underwent thorough evaluation including a VQ scan which ruled out pulmonary embolism as well as a negative lower extremity venous Dopplers. Patient started on dialysis, His oxygenation continued to improve with repeat dialysis. He did develop some elevated temperatures and was subsequently found have a superficial thrombophlebitis. Plan had been for discharge on 03/29/23. However when he went to have dialysis it was discovered he was having gelatinous discharge from his right chest wall hemodialysis catheter. At that point in time cultures were taken. Cultures were negative Pro-calcitonin elevated at 2. He was continued on cefazolin. Patient was previously found to have positive staph epidermidis blood cultures at the time of admission, felt to be a contaminant. Patient seen and examined at bedside with his . No acute events overnight. Still having issues with hypoglycemia overnight Vital signs reviewed General: nontoxic, no distress, appears at stated age Cardiovascular: S1S2 reg, no murmur, positive posterior tibial pulse bilateral, Lungs: CTA bilateral, no rhonchi, no rales , no accessory muscle use Abdominal: soft, nontender to palpation, no guarding, no appreciable organomegaly Ext: no gross muscle atrophy, no edema b/l lower extremities, no contracture Neuro: CN II-XI grossly intact, no focal neuro deficits Psych: Alert, oriented, appropriate affect Assessment/Plan: Acute kidney injury on chronic kidney disease stage IV- now requiring HD Coronary artery disease status post cardiac cath 03/11/23 Superficial thrombophelbitis Acute encephalopathy Chronic hypoxic respiratory failure Diabetes mellitus type 2 Anemia, stable-likely related to prolonged hospital stay and chronic kidney disease -Nephrology note reviewed: Hemodialysis today, decrease UF - Norvasc 5 mg twice daily, Coreg 12.5 mg twice daily, hydralazine 25 mg twice daily, Crestor 40 mg at night - Aspirin 81 mg daily - Zetia 10 mg daily - Imdur 60 mg daily, Ranexa 1000 mg twice daily - Cefazolin (1g IV q8h) started for thrombophlebitis, continue for now --Pulmonary and cardiology signed off. - Continue with insulin pump, we will continue to monitor blood sugars. Dizziness with standing -Resolved Drainage from around HD cath - pro-calcitonin decreasing from 2 to 1.84 -Repeat blood cultures negative to date -Continue cefazolin -fluid culture is negative - could consider discharge if blood cultures remain negative -no need to continue IV cefazolin at the time of discharge D/W CM and patient cannot start HD on Tuesday so will need to be discharge after Tuesday HD if remains stable. 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 Imaging [facility] course: VQ scan- no PE B/l LE venous dopplers- No DVT Right Upper Ext US ordered to rule out aneurysm of angiogram site - reviewed , was negative for aneurysm, showed superficial thrombophlebitis Echocardiogram from 01/21 shows ejection fraction 50-55% Data Review: WBC 6.1, hemoglobin 8.7, sodium 135, creatinine 5.72, blood sugars range between 96-226 DVT prophylaxis: Heparin Anticipated discharge date: On Tuesday Anticipated discharge place: home with Objective - Vital Signs Vital signs: Vital Signs Temp 97.8 F 03/31/23 07:34 Pulse 64 03/31/23 11:00 Resp 16 03/31/23 07:34 BP 122/60 03/31/23 11:00 Pulse Ox 98 03/31/23 07:34 FiO2 Intake & Output 03/30/23 03/31/23 03/31/23 18:59 06:59 18:59 Intake Total 318 240 714 Output Total 150 Balance 318 90 714 Weight 98.2 kg Intake: Oral 318 240 714 Output: Urine 150 Other: Voiding Method Urinal Urinal Urinal # Voids 0 - Labs CBC & Chem 7: 03/31/23 07:44 03/31/23 07:44 Labs: Abnormal Lab Results - Last 24 Hours (Table) 03/30/23 03/30/23 03/31/23 Range/Units 16:39 20:01 06:02 RBC (4.30-5.90) m/uL Hgb (13.0-17.5) gm/dL Hct (39.0-53.0) % Sodium (137-145) mmol/L Chloride (98-107) mmol/L BUN (9-20) mg/dL Creatinine (0.66-1.25) mg/dL Glucose (74-99) mg/dL POC Glucose (mg/dL) 405 H 245 H 147 H (70-110) mg/dL Calcium (8.4-10.2) mg/dL 03/31/23 03/31/23 03/31/23 Range/Units 07:44 07:44 11:53 RBC 2.86 L (4.30-5.90) m/uL Hgb 8.7 L (13.0-17.5) gm/dL Hct 26.1 L (39.0-53.0) % Sodium 131 L (137-145) mmol/L Chloride 93 L (98-107) mmol/L BUN 64 H (9-20) mg/dL Creatinine 5.72 H (0.66-1.25) mg/dL Glucose 189 H (74-99) mg/dL POC Glucose (mg/dL) 226 H (70-110) mg/dL Calcium 8.1 L (8.4-10.2) mg/dL Microbiology - Last 24 Hours (Table) 03/28/23 18:45 Blood Culture - Preliminary Blood 03/28/23 18:50 Blood Culture - Preliminary Blood 03/29/23 12:00 Blood Culture - Preliminary Blood
[2023-03-31] MEDS: carvediloL 12.5 MG TAB PO SCH (15:44)
[2023-03-31 15:55] LABS: HCT 25.5 % (39.0-53.0); HGB 8.5 gm/dL (13.0-17.5); MCH 30.8 pg (25.0-35.0); MCHC 33.4 g/dL (31.0-37.0); MCV 92.2 fL (80.0-100.0); Mean Platelet Volume 9.1; Platelet Count 242 k/uL (150-450); RBC 2.77 m/uL (4.30-5.90); RDW 13.5 % (11.5-15.5); WBC 5.8 k/uL (3.8-10.6)
[2023-03-31] MEDS: hydrALAZINE HCL 25 MG TAB PO SCH (15:59)
[2023-03-31] MEDS: amLODIPine 5 MG TAB PO SCH (16:07)
[2023-03-31 16:26] LABS: Glucose,Whole Blood 316 mg/dL (70-110)
[2023-03-31] MEDS: carvediloL 3.125 MG TAB PO SCH (16:36)
[2023-03-31 20:35] LABS: Glucose,Whole Blood 124 mg/dL (70-110)
[2023-03-31] MEDS: PRAMIPEXOLE 0.5 MG TAB PO SCH (21:03)
[2023-03-31] MEDS: NON FORMULARY DRUG (Rosuvastatin Calcium [Crestor] 40 MG Tablet) PO SCH (21:11)
[2023-04-01 02:27] LABS: Glucose,Whole Blood 128 mg/dL (70-110)
[2023-04-01 03:45] LABS: Glucose,Whole Blood 136 mg/dL (70-110)
[2023-04-01 06:27] LABS: Glucose,Whole Blood 235 mg/dL (70-110)
[2023-04-01] MEDS: carvediloL 3.125 MG TAB PO SCH ×2 (06:50→18:16)
[2023-04-01] MEDS: INSULIN PUMP MEAL BOLUS 1 UNIT MISC MISCELLANE SCH ×4 (06:53→21:00)
[2023-04-01] MEDS ORDERED: amLODIPine 5 MG TAB PO SCH (09:00)
[2023-04-01] MEDS: RANOLAZINE 500 MG TAB.ER.12H PO SCH ×2 (09:02→20:53)
[2023-04-01] MEDS: ISOSORBIDE MONONITRATE ER 60 MG TAB.ER.24H PO SCH (09:02)
[2023-04-01] MEDS: ESCITALOPRAM 10 MG TAB PO SCH (09:02)
[2023-04-01] MEDS: EZETIMIBE 10 MG TAB PO SCH (09:03)
[2023-04-01] MEDS: HEPARIN SODIUM,PORCINE 5,000 UNIT/ML 1 ML VIAL SQ SCH ×2 (09:03→15:07)
[2023-04-01] MEDS: LORATADINE 10 MG TAB PO SCH (09:03)
[2023-04-01] MEDS: ASPIRIN 81 MG PO SCH (09:03)
[2023-04-01] MEDS: TORSEMIDE 20 MG TAB PO SCH (09:04)
[2023-04-01] MEDS ORDERED: SODIUM FERRIC GLUCONAT-SUCROSE 125 MG in SODIUM CHLORIDE 0.9% 100 ML IVPB ONE (09:07)
[2023-04-01 09:14] LABS: African American GFR (CKD) 15 (>60 ml/min/1.73 sqM); Anion Gap 12 mmol/L; Blood Urea Nitrogen 43 mg/dL (9-20); Calcium 8.1 mg/dL (8.4-10.2); Carbon Dioxide 25 mmol/L (22-30); Chloride 94 mmol/L (98-107); Glucose 243 mg/dL (74-99); HCT 27.6 % (39.0-53.0); MCH 30.4 pg (25.0-35.0); MCHC 32.4 g/dL (31.0-37.0); MCV 93.7 fL (80.0-100.0); Mean Platelet Volume 9.3; Non-African American GFR(CKD) 13 (>60 ml/min/1.73 sqM); Platelet Count 298 k/uL (150-450); Potassium 4.9 mmol/L (3.5-5.1); RBC 2.95 m/uL (4.30-5.90); RDW 13.9 % (11.5-15.5); Sodium 131 mmol/L (137-145); WBC 6.5 k/uL (3.8-10.6)
[2023-04-01] MEDS ORDERED: DARBEPOETIN ALFA 40 MCG/0.4 ML SYRINGE SQ ONE (09:15)
[2023-04-01] MEDS: SYMBICORT 80-4.5 MCG INHALER INHALATION SCH ×2 (09:33→20:46)
[2023-04-01 10:22] LABS: Eosinophils # (M) 0.33 k/uL (0-0.7); Lymphocytes # (M) 1.17 k/uL (1.0-4.8); Monocytes # (M) 1.17 k/uL (0-1.0); Neutrophils # (M) 3.84 k/uL (1.3-7.7); Neutrophils % (M) 59 %; Nucleated Red Blood Cells 0 /100 WBC (0-0); Total Cells Counted 100
[2023-04-01] MEDS ORDERED: diphenhydrAMINE 25 MG CAP PO PRN (11:33)
[2023-04-01 12:02] LABS: Glucose,Whole Blood 154 mg/dL (70-110)
[2023-04-01 12:19] LABS: Glucose,Whole Blood 164 mg/dL (70-110)
--- NOTE | 2023-04-01 13:09 | P.PN ---
Subjective Progress Note Date: 04/01/23 Patient is a 72-year-old male with chronic kidney disease use, diabetes mellitus insulin requiring, coronary artery disease status post stenting, and hypertension who presented to the hospital due to exertional dyspnea and chest pain. He was admitted for possible acute coronary syndrome. Cardiology was consulted. He underwent cardiac catheterization which showed coronary artery disease with a 40-50% mid distal left main stenosis, 50-60% mid LAD stenosis, 100% circumflex stenosis, and 50-60% mild RCA stenosis. Cath felt be fairly similar from 2017 was some progression of the left main disease. However, high risk for continued contrast exposure and recommendations were made for initial conservative management wtih continued monitoring. His renal function worsened, nephrology was following. Overnight on 03/18 patient developed worsening respiratory distress requiring increase of his oxygen from 6 to 15 L nasal cannula. He underwent thorough evaluation including a VQ scan which ruled out pulmonary embolism as well as a negative lower extremity venous Dopplers. Patient started on dialysis, His oxygenation continued to improve with repeat dialysis. He did develop some elevated temperatures and was subsequently found have a superficial thrombophlebitis. Plan had been for discharge on 03/29/23. However when he went to have dialysis it was discovered he was having gelatinous discharge from his right chest wall hemodialysis catheter. At that point in time cultures were taken. Cultures were negative Pro-calcitonin elevated at 2. He was continued on cefazolin. Patient was previously found to have positive staph epidermidis blood cultures at the time of admission, felt to be a contaminant. Patient seen and examined at bedside with his . No acute events overnight. Still having issues with hypoglycemia overnight that is only reflected on his glucometer. Vital signs reviewed General: nontoxic, no distress, appears at stated age Cardiovascular: S1S2 reg, no murmur, positive posterior tibial pulse bilateral, Lungs: CTA bilateral, no rhonchi, no rales , no accessory muscle use Abdominal: soft, nontender to palpation, no guarding, no appreciable organomegaly Ext: no gross muscle atrophy, no edema b/l lower extremities, no contracture Neuro: CN II-XI grossly intact, no focal neuro deficits Psych: Alert, oriented, appropriate affect Assessment/Plan: Acute kidney injury on chronic kidney disease stage IV- now requiring HD Coronary artery disease status post cardiac cath 03/11/23 Superficial thrombophelbitis Acute encephalopathy Chronic hypoxic respiratory failure Diabetes mellitus type 2 Anemia, stable-likely related to prolonged hospital stay and chronic kidney disease -Nephrology following, likely dialysis tomorrow and then discharge home -Patient has been slightly hypotensive, Coreg dose decreased, amlodipine and hydralazine discontinued -Crestor 40 mg at night - Aspirin 81 mg daily - Zetia 10 mg daily - Imdur 60 mg daily, Ranexa 1000 mg twice daily -Ceftezole and discontinue --Pulmonary and cardiology signed off. - Continue with insulin pump, we will continue to monitor blood sugars. Dizziness with standing -Resolved Drainage from around HD cath - pro-calcitonin decreasing from 2 to 1.84 -Repeat blood cultures negative to date -Ceftezole and discontinued -fluid culture is negative D/W CM and patient cannot start HD on Tuesday so will need to be discharge after Tuesday HD if remains stable. 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 Imaging [facility] hospital course: VQ scan- no PE B/l LE venous dopplers- No DVT Right Upper Ext US ordered to rule out aneurysm of angiogram site - reviewed 03/25, was negative for aneurysm, showed superficial thrombophlebitis Echocardiogram from 01/21 shows ejection fraction 50-55% Data Review: WBC 6.5, hemoglobin 9, sodium 131, creatinine 4.27, blood sugars range between 154-235 DVT prophylaxis: Heparin Anticipated discharge date: On Tuesday Anticipated discharge place: home with Objective - Vital Signs Vital signs: Vital Signs Temp 97.3 F L 04/01/23 11:47 Pulse 68 04/01/23 11:47 Resp 18 04/01/23 11:47 BP 123/69 04/01/23 11:47 Pulse Ox 98 04/01/23 11:47 FiO2 Intake & Output 03/31/23 04/01/23 04/01/23 18:59 06:59 18:59 Intake Total 1164 318 Output Total 1450 0 Balance -286 318 Weight 100.5 kg Intake: Oral 714 318 Hemodialysis 450 Output: Urine 0 Stool 0 Hemodialysis 1450 Other: Voiding Method Urinal Urinal Urinal # Bowel Movements 1 - Labs CBC & Chem 7: 04/01/23 08:01 04/01/23 08:01 Labs: Abnormal Lab Results - Last 24 Hours (Table) 03/31/23 03/31/23 03/31/23 Range/Units 15:01 16:24 20:34 RBC 2.77 L (4.30-5.90) m/uL Hgb 8.5 L (13.0-17.5) gm/dL Hct 25.5 L (39.0-53.0) % Monocytes # (Manual) (0-1.0) k/uL Sodium (137-145) mmol/L Chloride (98-107) mmol/L BUN (9-20) mg/dL Creatinine (0.66-1.25) mg/dL Glucose (74-99) mg/dL POC Glucose (mg/dL) 316 H 124 H (70-110) mg/dL Calcium (8.4-10.2) mg/dL 04/01/23 04/01/23 04/01/23 Range/Units 02:25 03:43 06:25 RBC (4.30-5.90) m/uL Hgb (13.0-17.5) gm/dL Hct (39.0-53.0) % Monocytes # (Manual) (0-1.0) k/uL Sodium (137-145) mmol/L Chloride (98-107) mmol/L BUN (9-20) mg/dL Creatinine (0.66-1.25) mg/dL Glucose (74-99) mg/dL POC Glucose (mg/dL) 128 H 136 H 235 H (70-110) mg/dL Calcium (8.4-10.2) mg/dL 04/01/23 04/01/23 04/01/23 Range/Units 08:01 08:01 11:59 RBC 2.95 L (4.30-5.90) m/uL Hgb 9.0 L (13.0-17.5) gm/dL Hct 27.6 L (39.0-53.0) % Monocytes # (Manual) 1.17 H (0-1.0) k/uL Sodium 131 L (137-145) mmol/L Chloride 94 L (98-107) mmol/L BUN 43 H (9-20) mg/dL Creatinine 4.27 H (0.66-1.25) mg/dL Glucose 243 H (74-99) mg/dL POC Glucose (mg/dL) 154 H (70-110) mg/dL Calcium 8.1 L (8.4-10.2) mg/dL 04/01/23 Range/Units 12:18 RBC (4.30-5.90) m/uL Hgb (13.0-17.5) gm/dL Hct (39.0-53.0) % Monocytes # (Manual) (0-1.0) k/uL Sodium (137-145) mmol/L Chloride (98-107) mmol/L BUN (9-20) mg/dL Creatinine (0.66-1.25) mg/dL Glucose (74-99) mg/dL POC Glucose (mg/dL) 164 H (70-110) mg/dL Calcium (8.4-10.2) mg/dL Microbiology - Last 24 Hours (Table) 03/28/23 18:45 Blood Culture - Preliminary Blood 03/28/23 18:50 Blood Culture - Preliminary Blood 03/29/23 12:00 Blood Culture - Preliminary Blood
--- NOTE | 2023-04-01 14:39 | CT ---
EXAMINATION TYPE: CT brain wo con DATE OF EXAM: 04/01/2023 COMPARISON: 02/21/2022 HISTORY: Dizziness CT DLP: 1203.4 mGycm Automated exposure control for dose reduction was used. FINDINGS: The ventricles, basal cisterns and sulci over convexities are moderately enlarged consistent with mod erate atrophy but appropriate for the patient's age. There is a tiny remote cortical infarct in the left thalamus. There is no acute intra or extra-axial hemorrhage. There is no mass effect or shift of midline struct ures. Posterior fossa including the brainstem, fourth ventricle and cerebellar pontine angles are grossly n ormal. Intraorbital contents appear normal and symmetric. There are mild chronic inflammatory changes in the left maxillary sinus. The frontal sinuses are hypo plastic. The mastoid air cells are well aerated. IMPRESSION: 1. No acute bleed or mass effect. 2. 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 3. moderate age-appropriate atrophy IMPRESSION:
[2023-04-01] MEDS: TAMSULOSIN 0.4 MG CAP.ER.24H PO SCH (15:08)
[2023-04-01 16:29] LABS: Glucose,Whole Blood 117 mg/dL (70-110)
[2023-04-01 20:24] LABS: Glucose,Whole Blood 86 mg/dL (70-110)
[2023-04-01] MEDS: NON FORMULARY DRUG (Rosuvastatin Calcium [Crestor] 40 MG Tablet) PO SCH (20:48)
[2023-04-01] MEDS: PRAMIPEXOLE 0.5 MG TAB PO SCH (20:53)
--- NOTE | 2023-04-01 23:19 | P.PN ---
Subjective Patient is seen for follow-up for CK D. Status post cardiac catheterization on 03/11/2023 which showed significant coronary artery disease, currently maintained on medical therapy. Patient developed severe volume overload and respiratory distress and was eventually started on hemodialysis on 03/18/2023. Volume status has significantly improved. Respiratory status has improved as well. Overall doing better. No complaints of dizziness or lightheadedness. Blood pressure is staying 120 to 130s systolic. Patient is scheduled for hemodialysis in am. Objective - Vital Signs Vital signs: Vital Signs Temp 97.8 F 04/01/23 20:00 Pulse 66 04/01/23 20:00 Resp 16 04/01/23 20:00 BP 110/64 04/01/23 20:00 Pulse Ox 97 04/01/23 20:00 FiO2 Intake & Output 04/01/23 04/01/23 04/02/23 06:59 18:59 06:59 Intake Total 318 240 Output Total 0 819 Balance 318 240 -819 Weight 100.5 kg Intake: Oral 318 240 Output: Urine 0 575 Post Void Residual 244 Stool 0 Other: Voiding Method Urinal Urinal Urinal - Exam Patient is awake comfortable Alert oriented 3 Examination of the heart S1 and S2 Examination of the lungs bilateral breath sounds are heard, decreased breath sounds at the bases Abdomen is soft nontender Examination of lower extremities shows trace edema [employer] exam grossly intact - Labs CBC & Chem 7: 04/01/23 08:01 04/01/23 08:01 Labs: Abnormal Lab Results - Last 24 Hours (Table) 04/01/23 04/01/23 04/01/23 Range/Units 02:25 03:43 06:25 RBC (4.30-5.90) m/uL Hgb (13.0-17.5) gm/dL Hct (39.0-53.0) % Monocytes # (Manual) (0-1.0) k/uL Sodium (137-145) mmol/L Chloride (98-107) mmol/L BUN (9-20) mg/dL Creatinine (0.66-1.25) mg/dL Glucose (74-99) mg/dL POC Glucose (mg/dL) 128 H 136 H 235 H (70-110) mg/dL Calcium (8.4-10.2) mg/dL 04/01/23 04/01/23 04/01/23 Range/Units 08:01 08:01 11:59 RBC 2.95 L (4.30-5.90) m/uL Hgb 9.0 L (13.0-17.5) gm/dL Hct 27.6 L (39.0-53.0) % Monocytes # (Manual) 1.17 H (0-1.0) k/uL Sodium 131 L (137-145) mmol/L Chloride 94 L (98-107) mmol/L BUN 43 H (9-20) mg/dL Creatinine 4.27 H (0.66-1.25) mg/dL Glucose 243 H (74-99) mg/dL POC Glucose (mg/dL) 154 H (70-110) mg/dL Calcium 8.1 L (8.4-10.2) mg/dL 04/01/23 04/01/23 Range/Units 12:18 16:24 RBC (4.30-5.90) m/uL Hgb (13.0-17.5) gm/dL Hct (39.0-53.0) % Monocytes # (Manual) (0-1.0) k/uL Sodium (137-145) mmol/L Chloride (98-107) mmol/L BUN (9-20) mg/dL Creatinine (0.66-1.25) mg/dL Glucose (74-99) mg/dL POC Glucose (mg/dL) 164 H 117 H (70-110) mg/dL Calcium (8.4-10.2) mg/dL Microbiology - Last 24 Hours (Table) 03/29/23 12:00 Blood Culture - Preliminary Blood 03/28/23 18:45 Blood Culture - Preliminary Blood 03/28/23 18:50 Blood Culture - Preliminary Blood Assessment and Plan Assessment: 1. Chronic kidney disease NKF stage IV with baseline creatinine around 3 mg/dL. Etiology is diabetic kidney disease. Started renal replacement therapy on 03/18/2023 due to worsening volume overload. 2. Coronary artery disease status post cardiac catheterization on 03/11/2023, currently with no plans for intervention 3. Hypertensive urgency with improved blood pressures 4. CK D mineral bone disorder 5. Volume overload, improved 6. Non-gap metabolic acidosis associated with chronic kidney disease 7. Exit site infection maintained on Ceftin. Wound culture shows rare gram- positive cocci. Blood cultures are pending. Initial blood culture on 03/24/2023 grew Staphylococcus epidermidis Plan: hemodialysis in am Decrease UF with hemodialysis now as volume status significantly improved. Follow-up on blood cultures Continue with cefazolin
[2023-04-02] MEDS: HEPARIN SODIUM,PORCINE 5,000 UNIT/ML 1 ML VIAL SQ SCH ×2 (00:08→08:31)
[2023-04-02] MEDS: ALPRAZolam 0.5 MG TAB PO PRN (00:08)
[2023-04-02 02:10] LABS: Glucose,Whole Blood 111 mg/dL (70-110)
[2023-04-02 06:02] LABS: Glucose,Whole Blood 124 mg/dL (70-110)
[2023-04-02] MEDS: INSULIN PUMP MEAL BOLUS 1 UNIT MISC MISCELLANE SCH ×2 (06:25→14:58)
[2023-04-02] MEDS: carvediloL 3.125 MG TAB PO SCH (06:31)
[2023-04-02] MEDS: TAMSULOSIN 0.4 MG CAP.ER.24H PO SCH (06:31)
[2023-04-02] MEDS: ESCITALOPRAM 10 MG TAB PO SCH (08:30)
[2023-04-02] MEDS: RANOLAZINE 500 MG TAB.ER.12H PO SCH (08:30)
[2023-04-02] MEDS: LORATADINE 10 MG TAB PO SCH (08:30)
[2023-04-02] MEDS: EZETIMIBE 10 MG TAB PO SCH (08:31)
[2023-04-02] MEDS: ASPIRIN 81 MG PO SCH (08:31)
[2023-04-02] MEDS: SYMBICORT 80-4.5 MCG INHALER INHALATION SCH (08:56)
[2023-04-02 09:30] VITALS: RESP 16
[2023-04-02 11:25] LABS: Glucose,Whole Blood 105 mg/dL (70-110)
[2023-04-02 11:55] VITALS: PULSE 64
--- NOTE | 2023-04-02 12:14 | P.PN ---
Subjective Patient is seen in follow-up for acute kidney injury on chronic kidney disease. Started on hemodialysis 03/18/2023. On room air. Tolerating dialysis well. Plan for discharge later today. Vital signs are stable. General: No acute distress. HEENT: Head exam is unremarkable. LUNGS: Scattered rhonchi. HEART: Rate and Rhythm are regular. ABDOMEN: Nontender. EXTREMITITES: No edema. Objective - Vital Signs Vital signs: Vital Signs Temp 97.5 F L 04/02/23 11:54 Pulse 64 04/02/23 11:54 Resp 16 04/02/23 11:54 BP 122/60 04/02/23 11:54 Pulse Ox 95 04/02/23 11:54 FiO2 Intake & Output 04/01/23 04/02/23 04/02/23 18:59 06:59 18:59 Intake Total 240 100 Output Total 819 Balance 240 -719 Weight 99.4 kg Intake: Oral 240 100 Output: Urine 575 Post Void Residual 244 Other: Voiding Method Urinal Urinal Urinal - Labs CBC & Chem 7: 04/01/23 08:01 04/01/23 08:01 Labs: Abnormal Lab Results - Last 24 Hours (Table) 04/01/23 04/01/23 04/02/23 Range/Units 12:18 16:24 02:09 POC Glucose (mg/dL) 164 H 117 H 111 H (70-110) mg/dL 04/02/23 Range/Units 06:01 POC Glucose (mg/dL) 124 H (70-110) mg/dL Microbiology - Last 24 Hours (Table) 03/29/23 12:00 Blood Culture - Preliminary Blood Assessment and Plan Plan: Assessment: 1. Acute kidney injury secondary to ATN secondary to cardiorenal syndrome and further worsened with the use of IV contrast. Started on hemodialysis 03/18/2023. 2. Chronic kidney disease stage IV with baseline creatinine near 3 secondary to diabetic kidney disease. 3. Coronary disease status post cardiac catheterization 03/11/2023. 4. Volume overload. Improved with ultrafiltration. 5. Acute hypoxic respiratory failure. 6. Hypertension with chronic kidney disease. Stable. 7. Chronic kidney disease mineral bone disease maintained on calcitriol. 8. Metabolic acidosis secondary to chronic kidney disease. Improved post-HD. 9. Anemia of chronic kidney disease. Iron deficiency noted - status post IV iron. On Aranesp. 10. Acute on chronic diastolic CHF. Plan: Currently seen while undergoing hemodialysis. Maintain torsemide. Phosphorus level 3.6 dated 03/19/2023. Patient will be maintained on Tuesday schedule outpatient for dialysis. Monitor for renal recovery.
[2023-04-02 13:51] LABS: Glucose,Whole Blood 81 mg/dL (70-110)
--- NOTE | 2023-04-02 13:54 | P.DS ---
Providers Date of admission: 03/15/23 12:22 Expected date of discharge: 04/02/23 Attending physician: Priya Baig MD Consults: 03/12/23 13:21 Consult Physician Routine Consulting Provider: Saritha Cadena Consult Reason/Comments: CKD IV with plan for LHC for PCI on tuesday Do you want consulting provider notified?: Yes 03/17/23 11:06 Consult Physician Urgent Consulting Provider: Bob Boogie Consult Reason/Comments: Permacath Do you want consulting provider notified?: Yes 03/21/23 03:11 Consult Physician Routine Consulting Provider: Leilani Potter Consult Reason/Comments: Respiratory Distress Do you want consulting provider notified?: Already Contacted Primary care physician: Marlon Valentino MD Hospital Course: Discharge Diagnosis: Acute kidney injury on chronic kidney disease stage IV- now requiring HD Coronary artery disease status post cardiac cath 03/11/23 Superficial thrombophelbitis Acute encephalopathy Chronic hypoxic respiratory failure Diabetes mellitus type 2 with hypo and hyperglycemia on insulin pump Urinary retention Anemia, stable-likely related to prolonged hospital stay and chronic kidney disease Non-anion gap metabolic acidosis secondary to chronic kidney disease Hypertensive urgency with improved blood pressures Acute hypoxic respiratory failure hypogycemia Acute fluid overload, suspect secondary to renal disease 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 Hospital Course: Patient is a 72-year-old male with chronic kidney disease use, diabetes mellitus insulin requiring, coronary artery disease status post stenting, and hypertension who presented to the hospital due to exertional dyspnea and chest pain. He was admitted actually admitted for possible acute coronary syndrome. Cardiology was consulted. He underwent cardiac catheterization which showed coronary artery disease with a 40-50% mid distal left main stenosis, 50-60% mid LAD stenosis, 100% circumflex stenosis, and 50-60% mild RCA stenosis. Cath felt be fairly similar from 2017 was some progression of the left main disease. However, high risk for conitnued contrast exposure and recommends were made for initial conservative management wtih conitnued monitoring. His renal function, nephrology was following. Overnight on 03/18 patient developed worsening respiratory distress requiring increase of his oxygen from 6 to 15 L nasal cannula. He underwent thorough evaluation including a VQ scan which ruled out pulmonary embolism as well as a negative lower extremity venous Dopplers. His oxygenation continued to improve with repeat dialysis. He did develop some elevated temperatures and was subsequently found have a superficial thrombophlebitis. Plan had been for discharge on 03/29/23. However when he went to have dialysis it was discovered he was having gelatinous discharge summary which was purulent from his right chest wall hemodialysis catheter. At that point in time cultures were taken. Pro-calcitonin elevated at 2. He was continued on cefazolin. His culture of the fluid as well as blood cultures from his hemodialysis catheter and blood were negative. Antibiotics were stopped and he was doing well. His insulin pump was reinserted and he did have some nocturnal lows down to the 60s. He was determined stable for discharge home. His insulin pump was adjusted and his basal rate from 9 PM to 12 AM was taken down to 1 unit per hour from 1.25 units per hour. Patient was determined stable for discharge home. Follow-up: Dr. Bagley in 1-2 days, Dr. Castle in 2 weeks, begin home care, he will follow with Dr. Cadena at hemodialysis. His next appointment will be on at 7:50 AM. Medications include Coreg 3.125 mg twice daily, Xanax 0.5 mg at night, Demadex 40 mg daily, and Flomax 0.5 mg daily. Patient did have a prolonged hospital course and has multiple medical problems. He has a high risk for readmission. I had a long discussion with the and answered all questions. They feel very comfortable going home. Imaging [facility] course: VQ scan- no PE B/l LE venous dopplers- No DVT Right Upper Ext US ordered to rule out aneurysm of angiogram site - reviewed 03/25, was negative for aneurysm, showed superficial thrombophlebitis Echocardiogram from 01/21 shows ejection fraction 50-55% Patient seen and examined at bedside. He denies any chest pain or shortness of breath. He does have some redness on his bilateral ankles. Vital signs reviewed and stable. General: nontoxic, no distress, appears at stated age Cardiovascular: S1S2 reg, no murmur, positive posterior tibial pulse bilateral, Lungs: CTA bilateral, no rhonchi, no rales , no accessory muscle use Abdominal: soft, nontender to palpation, no guarding, no appreciable organomegaly Ext: no gross muscle atrophy, Trace pedal edema, no contractures Neuro: CN II-XI grossly intact, no focal neuro deficits Psych: Alert, oriented, appropriate affect A total of 42 minutes of time were spent preparing this complex discharge summary. Patient was discharged on 04/02/23. This dictation was prepared using [employer] voice recognition software. Though every attempt is made to correct errors during dictation some may still exist. Plan - Discharge Summary Discharge Rx Participant: Yes New Discharge Prescriptions: New carvediloL [Coreg] 3.125 mg PO BID-W/MEALS #60 tab ALPRAZolam [Xanax] 0.5 mg PO HS PRN #15 tab PRN Reason: Moderate Anxiety Torsemide [Demadex] 40 mg PO DAILY #60 tab Tamsulosin [Flomax] 0.4 mg PO PC-BRKFST #30 cap Continue Rosuvastatin Calcium [Crestor] 40 mg PO HS Cetirizine HCl 10 mg PO DAILY Nitroglycerin Sl Tabs [Nitrostat] 0.4 mg SL Q5M PRN PRN Reason: Chest Pain Ezetimibe [Zetia] 10 mg PO DAILY Ferrous Sulfate [Iron (65 MG Elemental)] 325 mg PO DAILY Febuxostat [Uloric] 40 mg PO DAILY Insulin Aspart (For Pump) [NovoLOG (For Pump)] 0.01 unit SQ-PUMP CONTINUOUS MDD 60 UNITS calcitrioL [Calcitriol] 0.25 mcg PO DAILY Isosorbide Mononitrate ER [Imdur] 60 mg PO BID Pramipexole [Mirapex] 0.5 mg PO HS Ranolazine [Ranexa] 500 mg PO BID Albuterol Inhaler [Ventolin Hfa Inhaler] 2 puff INHALATION RT-Q4H PRN PRN Reason: Shortness Of Breath Fluticasone Propion/Salmeterol [Wixela 100-50 Inhub] 1 puff INHALATION RT-BID PRN PRN Reason: Shortness Of Breath Glucagon Emergency Kit 1 mg IM ONCE PRN PRN Reason: Hypoglycemia Escitalopram [Lexapro] 10 mg PO DAILY Aspirin EC [Ecotrin Low Dose] 81 mg PO HS Discontinued Vitamin B Complex 1 cap PO DAILY Ergocalciferol (Vitamin D2) [Vitamin D2] 50,000 unit PO Q14D Propranolol [Inderal] 20 mg PO DAILY Furosemide [Lasix] 40 mg PO DAILY 30 Days #30 tablet Cholecalciferol [Vitamin D3 (25 Mcg = 1000 Iu)] 25 mcg PO DAILY hydrALAZINE HCL [Apresoline] 25 mg PO BID #60 tab Dulaglutide [Trulicity] 1.5 mg SQ VALLECILLO amLODIPine [Norvasc] 5 mg PO BID Discharge Medication List Cetirizine HCl 10 mg PO DAILY 03/03/14 [History] Nitroglycerin Sl Tabs [Nitrostat] 0.4 mg SL Q5M PRN 03/03/14 [History] Rosuvastatin Calcium [Crestor] 40 mg PO HS 03/03/14 [History] Ezetimibe [Zetia] 10 mg PO DAILY 05/19/16 [History] Ferrous Sulfate [Iron (65 MG Elemental)] 325 mg PO DAILY 05/19/16 [History] Febuxostat [Uloric] 40 mg PO DAILY 05/28/18 [History] Insulin Aspart (For Pump) [NovoLOG (For Pump)] 0.01 unit SQ-PUMP CONTINUOUS MDD 60 UNITS 05/28/18 [History] Isosorbide Mononitrate ER [Imdur] 60 mg PO BID 07/05/18 [History] calcitrioL [Calcitriol] 0.25 mcg PO DAILY 07/05/18 [History] Pramipexole [Mirapex] 0.5 mg PO HS 05/02/19 [History] Ranolazine [Ranexa] 500 mg PO BID 05/02/19 [History] Albuterol Inhaler [Ventolin Hfa Inhaler] 2 puff INHALATION RT-Q4H PRN 08/10/21 [History] Fluticasone Propion/Salmeterol [Wixela 100-50 Inhub] 1 puff INHALATION RT-BID PRN 08/10/21 [History] Aspirin EC [Ecotrin Low Dose] 81 mg PO HS 02/21/22 [History] Glucagon Emergency Kit 1 mg IM ONCE PRN 02/21/22 [History] Escitalopram [Lexapro] 10 mg PO DAILY 01/01/23 [History] ALPRAZolam [Xanax] 0.5 mg PO HS PRN #15 tab 04/02/23 [Rx] Tamsulosin [Flomax] 0.4 mg PO PC-BRKFST #30 cap 04/02/23 [Rx] Torsemide [Demadex] 40 mg PO DAILY #60 tab 04/02/23 [Rx] carvediloL [Coreg] 3.125 mg PO BID-W/MEALS #60 tab 04/02/23 [Rx] Follow up Appointment(s)/Referral(s): [facility], [NON-STAFF] - [facility] [NON-STAFF] - 04/05/23 7:50 am (Tuesdays, , Saturdays at 7:50 AM. Please arrive 30 mins early for paperwork on clinic day.) Shiraz Castle DO [STAFF PHYSICIAN] - 2 Weeks Marlon Valentino MD [Primary Care Provider] - 1-2 days Patient Instructions/Handouts: Dialysis Diet (DC), End Stage Kidney Disease (DC), Perma-cath Placement (DC), Hemodialysis (DC) Activity/Diet/Wound Care/Special Instructions: Activity: As tolerated Diet: Renal, carb consistent diet Special Instructions: Please alert Dr. Vigil's office of change in basal setting from 9pm to 12 am down to 1 unit/hr Please calibrate your continuous glucose meter at home Discharge Disposition: HOME SELF-CARE
[2023-04-02 14:03] VITALS: BP 122/58; TEMP 97.4
[2023-04-02] MEDS: TORSEMIDE 20 MG TAB PO SCH (15:15)
[2023-04-02] MEDS: ISOSORBIDE MONONITRATE ER 60 MG TAB.ER.24H PO SCH (15:15)
[2023-04-02 16:23] LABS: Glucose,Whole Blood 145 mg/dL (70-110)
--- NOTE | 2023-04-04 21:57 | CDI ---
Documentation Clarification Form Date: 04/04/2023 09:47:04 PM From: Alexa Aponte Phone: Admit Date: 03/15/2023 12:22:00 PM Patient Name: Phan Luciano Visit Number: [id number] Discharge Date: 04/02/2023 05:58:00 PM ATTENTION: The Clinical Documentation Specialists (CDI) and [facility] Coding Staff appreciate your assistance in clarifying documentation. Please respond to the clarification below the line at the bottom and electronically sign. The CDI & [facility] Coding staff will review the response and follow-up if needed. Please note: Queries are made part of the Legal Health Record. If you have any questions, please contact the author of this message via ITS. Dr. Damien Fung Hypotension is documented in the per Dr. Navarro Progress Note 04/01/23. Additional clarification regarding this diagnosis is requested. History/Risk Factors: 72yo M, DMII w CKD now requiring HD w AKT, CAD, superficial thrombophlebitis, toxic encephalopathy, ACHRF, anemia, HTN w urgency Clinical Indicators: Pulse Ox ; Treatment: Coreg dose decreased, amlodipine and hydralazine discontinued. Crestor 40 mg at night. Aspirin 81 mg daily. Zetia 10 mg daily. Imdur 60 mg daily, Ranexa 1000 mg twice daily. Ceftezole and discontinue. Can the hypotension be further specified? [ ] Drug Induced Hypotension (please specify Drug) [ ] Hypotension due to hemodialysis [ ] Hypotension is not clinically significant [ ] Other Condition, please specify [ x ] Unable to determine (Template Last Revised: September 2020) MTDD
--- NOTE | 2023-04-04 22:09 | CDI ---
Documentation Clarification Form Date: 04/04/2023 09:57:00 PM From: Alexa Aponte Phone: Admit Date: 03/15/2023 12:22:00 PM Patient Name: Phan Luciano Visit Number: [id number] Discharge Date: 04/02/2023 05:58:00 PM ATTENTION: The Clinical Documentation Specialists (CDI) and [facility] Coding Staff appreciate your assistance in clarifying documentation. Please respond to the clarification below the line at the bottom and electronically sign. The CDI & [facility] Coding staff will review the response and follow-up if needed. Please note: Queries are made part of the Legal Health Record. If you have any questions, please contact the author of this message via ITS. Dr. Christelle Barroso Patient has a documented BMI of per Dr. Cary Progress Note 03/10/23 and throughout Progress Notes. Additional clarification is requested. History/Risk Factors: 72yo M, In-stent stenosis, ACDHF, DMII w CKD requiring HD w ATN, CAD, superficial thrombophlebitis, toxic encephalopathy, ACHRF, anemia, HTN w urgency Clinical Indicators: Patients weight is: 104.326kg Patients height is: 58 Calculated BMI is: 53 Patient has chronic complex atherosclerosis withdifficult anatomy. If patient continues to have recurrentCHFexacerbations oranginalsymptoms, we would proceed with aheart catheterization. per Progress Note 03/23 Treatments: Renal, carb consistentdiet Please clarify if patients BMI indicates an additional diagnosis: [ ] Morbid (Extreme) (severe) obesity [ ] Due to excess calories [ ] Unspecified [ ] No additional diagnosis/not clinically significant [ ] Other, please specify ____ [ ] Unable to determine Reference: NIH Classification for BMI Overweight BMI 2529.9 Obesity (Class 1) BMI 3034.9 Obesity (Class 2) BMI 3539.9 Morbid obesity (Class 3/Extreme/severe) BMI =40 (Template Last Revised: November 2020) Patient was in fluid overload at time of admission at discharge BMI 33.3 which is accurate. Patient wtih class 1 obesity. MTDD
== END 2023-04-02 17:58 | disposition home or self-care (01) | DRG 286 ==
LOC: EC 17:25 → INTOOBSV 20:03 → 3SCARD 20:03 → OBSVTOIN 03-15 12:22 → 3SCARD 03-20 14:06
PROVIDERS: ADMIT Internal Medicine; ATTEND Internal Medicine
PROC: B2111ZZ Fluoroscopy of Multiple Coronary Arteries using Low Osmolar Contrast (ICD-10-PCS; 2023-03-11)
PROC: B240ZZ3 Ultrasonography of Single Coronary Artery, Intravascular (ICD-10-PCS; 2023-03-11)
PROC: 4A033BC Measurement of Arterial Pressure, Coronary, Percutaneous Approach (ICD-10-PCS; 2023-03-11)
PROC: 4A023N7 Measurement of Cardiac Sampling and Pressure, Left Heart, Percutaneous Approach (ICD-10-PCS; principal; 2023-03-11 10:30)
PROC: 5A1D70Z Performance of Urinary Filtration, Intermittent, Less than 6 Hours Per Day (ICD-10-PCS; 2023-03-18)
PROC: 0JH63XZ Insertion of Tunneled Vascular Access Device into Chest Subcutaneous Tissue and Fascia, Percutaneous Approach (ICD-10-PCS; 2023-03-18 07:30)
PROC: 02HV33Z Insertion of Infusion Device into Superior Vena Cava, Percutaneous Approach (ICD-10-PCS; 2023-03-18 07:30)
PROC: 5A0935A Assistance with Respiratory Ventilation, Less than 24 Consecutive Hours, High Flow/Velocity Cannula (ICD-10-PCS; 2023-03-19)
DX: T82.855A Stenosis of coronary artery stent, initial encounter (principal); G92.8 Other toxic encephalopathy; J96.21 Acute and chronic respiratory failure with hypoxia; N17.0 Acute kidney failure with tubular necrosis; I50.33 Acute on chronic diastolic (congestive) heart failure; N18.6 End stage renal disease; I13.2 Hypertensive heart and chronic kidney disease with heart failure and with stage 5 chronic kidney disease, or end stage renal disease; I42.8 Other cardiomyopathies; I25.110 Atherosclerotic heart disease of native coronary artery with unstable angina pectoris; I27.21 Secondary pulmonary arterial hypertension; E11.649 Type 2 diabetes mellitus with hypoglycemia without coma; Z79.4 Long term (current) use of insulin; R78.81 Bacteremia; E87.20 Acidosis, unspecified; E87.1 Hypo-osmolality and hyponatremia; I45.2 Bifascicular block; Z16.24 Resistance to multiple antibiotics; D63.1 Anemia in chronic kidney disease; I80.8 Phlebitis and thrombophlebitis of other sites; I25.82 Chronic total occlusion of coronary artery; I08.0 Rheumatic disorders of both mitral and aortic valves; J45.20 Mild intermittent asthma, uncomplicated; E66.9 Obesity, unspecified; T42.6X5A Adverse effect of other antiepileptic and sedative-hypnotic drugs, initial encounter; I49.3 Ventricular premature depolarization; G47.33 Obstructive sleep apnea (adult) (pediatric); M89.8X9 Other specified disorders of bone, unspecified site; E78.5 Hyperlipidemia, unspecified; I44.0 Atrioventricular block, first degree; I16.0 Hypertensive urgency; E61.1 Iron deficiency; R33.9 Retention of urine, unspecified; B96.89 Other specified bacterial agents as the cause of diseases classified elsewhere; N14.11 Contrast-induced nephropathy; T50.8X5A Adverse effect of diagnostic agents, initial encounter; I95.9 Hypotension, unspecified; Z68.33 Body mass index [BMI] 33.0-33.9, adult; R53.82 Chronic fatigue, unspecified; Y71.1 Therapeutic (nonsurgical) and rehabilitative cardiovascular devices associated with adverse incidents; Z96.41 Presence of insulin pump (external) (internal); Z20.822 Contact with and (suspected) exposure to COVID-19; Z91.199 Patient's noncompliance with other medical treatment and regimen due to unspecified reason; I25.2 Old myocardial infarction; Z79.899 Other long term (current) drug therapy; Z79.85 Long-term (current) use of injectable non-insulin antidiabetic drugs; Z79.82 Long term (current) use of aspirin; Z88.8 Allergy status to other drugs, medicaments and biological substances; Z95.5 Presence of coronary angioplasty implant and graft; Z87.891 Personal history of nicotine dependence; Z28.310 Unvaccinated for COVID-19; E11.22 Type 2 diabetes mellitus with diabetic chronic kidney disease; E11.65 Type 2 diabetes mellitus with hyperglycemia; E11.40 Type 2 diabetes mellitus with diabetic neuropathy, unspecified
CPT/HCPCS: 36415; 36558; 36600; 70450; 71045; 71046; 76937; 77001; 78582; 80048; 80053; 80061; 82728; 82805; 83036; 83540; 83550; 83735; 83880; 84100; 84145; 84484; 85025; 85027; 85610; 85730; 86704; 86706; 87040; 87070; 87077; 87186; 87205; 87340; 87635; 90935; 93005; 93458; 93799; 93970; 94640; 94760; 99285

== ENCOUNTER 2023-06-20 05:50 | Day surgery (SDC) | payer MEDICARE ==
[2023-06-17 10:02] VITALS: BMI 33.3
[2023-06-20] MEDS ORDERED: ONDANSETRON 4 MG/2 ML VIAL IVP ONE (06:04)
[2023-06-20] MEDS ORDERED: DEXAMETHASONE SOD PHOSPHATE 4 MG/ML 1 ML VIAL IV ONE (06:04)
[2023-06-20] MEDS ORDERED: LACTATED RINGERS 1,000 ML IV SCH (06:04)
[2023-06-20 06:40] LABS: HCT 35.4 % (39.0-53.0); HGB 12.2 gm/dL (13.0-17.5); MCH 31.2 pg (25.0-35.0); MCHC 34.6 g/dL (31.0-37.0); MCV 90.2 fL (80.0-100.0); Mean Platelet Volume 8.1; Platelet Count 151 k/uL (150-450); RBC 3.93 m/uL (4.30-5.90); RDW 13.5 % (11.5-15.5); WBC 4.6 k/uL (3.8-10.6)
[2023-06-20 06:41] LABS: Glucose,Whole Blood 152 mg/dL (70-110)
[2023-06-20] MEDS ORDERED: SODIUM CHLORIDE 0.9% 1,000 ML IV ONE (06:45)
[2023-06-20 06:49] LABS: ALT 20 U/L (4-49); AST 34 U/L (17-59); African American GFR (CKD) 19 (>60 ml/min/1.73 sqM); Albumin 3.9 g/dL (3.5-5.0); Alkaline Phosphatase 94 U/L (38-126); Anion Gap 16 mmol/L; Blood Urea Nitrogen 45 mg/dL (9-20); Calcium 8.9 mg/dL (8.4-10.2); Carbon Dioxide 23 mmol/L (22-30); Chloride 97 mmol/L (98-107); Glucose 163 mg/dL (74-99); Non-African American GFR(CKD) 16 (>60 ml/min/1.73 sqM); Potassium 4.4 mmol/L (3.5-5.1); Sodium 136 mmol/L (137-145); Total Bilirubin 0.5 mg/dL (0.2-1.3); Total Protein 7.4 g/dL (6.3-8.2)
[2023-06-20 06:57] VITALS: TEMP 97.3
[2023-06-20] MEDS ORDERED: MIDAZOLAM 2 MG/2 ML VIAL IVP ONE (06:59)
[2023-06-20] MEDS ORDERED: fentaNYL (PF) 50 MCG/ML 2 ML AMP IVP ONE (06:59)
[2023-06-20] MEDS ORDERED: HYDROmorphone 0.5 MG/0.5 ML SYRINGE IVP PRN (07:00)
[2023-06-20] MEDS ORDERED: MIDAZOLAM 2 MG/2 ML VIAL IV PRN (07:00)
[2023-06-20] MEDS ORDERED: ROPIVACAINE 5 MG/ML 30 ML VIAL ONE (07:52)
[2023-06-20] MEDS ORDERED: ePHEDrine 50 MG/ML 1 ML VIAL ONE (07:52)
[2023-06-20] MEDS ORDERED: LIDOCAINE 1% INJ 10MG/ML (20 ML MDV) ONE (07:52)
[2023-06-20] MEDS ORDERED: HEPARIN SODIUM,PORCINE 5,000 UNIT/ML 1 ML VIAL ONE (07:52)
[2023-06-20] MEDS ORDERED: fentaNYL (PF) 50 MCG/ML 2 ML AMP ONE (07:52)
[2023-06-20] MEDS ORDERED: PROPOFOL 10 MG/ML 20 ML VIAL IV ONE (07:52)
[2023-06-20] MEDS ORDERED: WATER FOR INJECTION, STERILE 10 ML VIAL IV ONE (07:52)
[2023-06-20] MEDS ORDERED: THROMBIN (BOVINE) 5,000 UNIT VIAL TOPICAL ONE (08:19)
[2023-06-20] MEDS ORDERED: GELATIN SPONGE,ABSORB (LARGE) 1 EACH SPONGE TOPICAL ONE (08:19)
[2023-06-20] MEDS ORDERED: ceFAZolin 2 GM in SODIUM CHLORIDE 0.9% 500 ML 500 ML IRRIGATION ONE (08:20)
[2023-06-20] MEDS ORDERED: HEPARIN SODIUM,PORCINE (1 ML) 2,000 UNIT in SODIUM CHLORIDE 0.9% 500 ML 500 ML IRRIGATION ONE (08:20)
[2023-06-20 09:28] LABS: Eosinophils # (M) 0.14 k/uL (0-0.7); Lymphocytes # (M) 0.69 k/uL (1.0-4.8); Monocytes # (M) 0.87 k/uL (0-1.0); Neutrophils % (M) 63 %; Nucleated Red Blood Cells 0 /100 WBC (0-0); Total Cells Counted 100
--- NOTE | 2023-06-20 09:43 | P.OP ---
Date of Procedure: 06/20/23 Preoperative Diagnosis: ESRD Postoperative Diagnosis: Same Procedure(s) Performed: Left upper extremity loop AVG creation Anesthesia: regional Surgeon: Kevin Amador Estimated Blood Loss (ml): 20 Pathology: none sent Condition: stable Disposition: PACU Indications for Procedure: 72-year-old gentleman with history of end-stage renal disease on hemodialysis via a chest catheter presents to the hospital for left upper extremity loop AV graft creation. He did have vein mapping which demonstrated small diminutive cephalic and basilic veins throughout therefore a graft was chosen to be utilized. He had an arterial Doppler that demonstrated good flow multiphasic extending to the radial and ulnar arteries bilaterally. Description of Procedure: After written informed consent was obtained the patient all risks benefits and competitions were described patient is brought to the operative suite and laid in a supine position with the left arm outstretched on an armboard. The area of the arm was then prepped and draped in usual sterile fashion after appropriate anesthetic was performed per the anesthesiologist. A timeout was performed in normal fashion antibiotics were administered prior to incision. A transverse incision was then created just distal to the elbow and dissection was carried down to the antecubital vein and this was dissected free in a circumferential manner. Proximal and distal control was obtained with vessel loops. Attention was then placed to the artery and the brachial artery was then dissected free in a circumferential manner and controlled with vessel loops for the proximal and distal aspect. A tunnel was then created in a loop fashion with a counterincision made in the forearm and a 4-7 mm Reedley propatent graft was tunneled in a loop fashion. Patient was then administered heparin. Arterial anastomosis was then performed after arteriotomy was created in the brachial artery and extended with Pott Freeman scissors. We 4 mm aspect of the graft was then spatulated in normal fashion and anastomosis was created with 6-0 Prolene suture in a running fashion. Control was then released into the graft revealing good pulsatile blood flow. Distal control of the artery was then released. Assessment of the radial artery demonstrated good pulse. The anastomosis was then performed. Venotomy was created with 11 blade scalpel and extended with Pott Freeman scissors. A 7 mm aspect of the graft was then spatulated in normal fashion and anastomosis was created with 6-0 Prolene suture in a running fashion. Prior to last sutures being placed control was released revealing good backbleeding from the vein. The graft was flushed with heparin saline. Control was then released revealing good pulsatile blood flow within the vein with a good palpable thrill noted. Hemostasis was then assured with Gelfoam and thrombin. Incisions were then closed in a multilayer fashion. Skin was cleansed and dressings were placed. The patient tolerated the procedure well and was sent to PACU for recovery. Plan - Discharge Summary Discharge Rx Participant: Yes New Discharge Prescriptions: No Action Nitroglycerin Sl Tabs [Nitrostat] 0.4 mg SL Q5M PRN PRN Reason: Chest Pain Ezetimibe [Zetia] 10 mg PO DAILY Ferrous Sulfate [Iron (65 MG Elemental)] 325 mg PO DAILY Insulin Aspart (For Pump) [NovoLOG (For Pump)] 0.01 unit SQ-PUMP CONTINUOUS Pramipexole [Mirapex] 0.5 mg PO HS PRN PRN Reason: Pain Ranolazine [Ranexa] 500 mg PO BID Albuterol Inhaler [Ventolin Hfa Inhaler] 2 puff INHALATION Q4H PRN PRN Reason: Shortness Of Breath Fluticasone Propion/Salmeterol [Wixela 100-50 Inhub] 1 puff INHALATION BID Glucagon Emergency Kit 1 mg IM ONCE PRN PRN Reason: Hypoglycemia Escitalopram [Lexapro] 10 mg PO QAM Tums (Unknown Dose) 1 tab PO AC-TID Rosuvastatin [Crestor] 10 mg PO HS Aspirin EC [Ecotrin Low Dose] 81 mg PO HS Torsemide [Demadex] 40 mg PO DAILY #60 tab Tamsulosin [Flomax] 0.4 mg PO HS ALPRAZolam [Xanax] 0.5 mg PO HS PRN PRN Reason: Severe Anxiety Isosorbide Mononitrate [Isosorbide Mononitrate ER] 30 mg PO QAM Cholecalciferol [Vitamin D3 (25 Mcg = 1000 Iu)] 50 mcg PO DAILY Discharge Medication List Nitroglycerin Sl Tabs [Nitrostat] 0.4 mg SL Q5M PRN 03/03/14 [History] Ezetimibe [Zetia] 10 mg PO DAILY 05/19/16 [History] Ferrous Sulfate [Iron (65 MG Elemental)] 325 mg PO DAILY 05/19/16 [History] Insulin Aspart (For Pump) [NovoLOG (For Pump)] 0.01 unit SQ-PUMP CONTINUOUS 05/28/18 [History] Pramipexole [Mirapex] 0.5 mg PO HS PRN 05/02/19 [History] Ranolazine [Ranexa] 500 mg PO BID 05/02/19 [History] Albuterol Inhaler [Ventolin Hfa Inhaler] 2 puff INHALATION Q4H PRN 08/10/21 [History] Fluticasone Propion/Salmeterol [Wixela 100-50 Inhub] 1 puff INHALATION BID 08/10/21 [History] Aspirin EC [Ecotrin Low Dose] 81 mg PO HS 02/21/22 [History] Glucagon Emergency Kit 1 mg IM ONCE PRN 02/21/22 [History] Escitalopram [Lexapro] 10 mg PO QAM 01/01/23 [History] Torsemide [Demadex] 40 mg PO DAILY #60 tab 04/02/23 [Rx] ALPRAZolam [Xanax] 0.5 mg PO HS PRN 06/17/23 [History] Cholecalciferol [Vitamin D3 (25 Mcg = 1000 Iu)] 50 mcg PO DAILY 06/17/23 [History] Isosorbide Mononitrate [Isosorbide Mononitrate ER] 30 mg PO QAM 06/17/23 [History] Rosuvastatin [Crestor] 10 mg PO HS 06/17/23 [History] Tamsulosin [Flomax] 0.4 mg PO HS 06/17/23 [History] Tums (Unknown Dose) 1 tab PO AC-TID 06/17/23 [History] Follow up Appointment(s)/Referral(s): Kevin Amador DO [STAFF PHYSICIAN] - 2 Weeks Activity/Diet/Wound Care/Special Instructions: no heavy lifting greater than 10-15lbs x 2 weeks. Discharge Disposition: HOME SELF-CARE
[2023-06-20 10:35] VITALS: BP 122/64; PULSE 79; RESP 16
--- NOTE | 2023-06-20 12:17 | P.ANPRN ---
Procedure Note - Anesthesia - Nerve Block Performed Left Supraclavicular Single Time Out Performed: Yes ([id number]) Date of Procedure: 06/20/23 Procedure Start Time: 06:59 Procedure Stop Time: 07:04 Location of Patient: PreOp Indication: Acute Post-Operative Pain, Requested by Surgeon Specifically requested for management of pain by DrAndi: Kevin Amador Sedation Type: Sedate with meaningful contact maintained Preparation: Sterile Prep Position: Supine Catheter: None Needle Types: Pajunk Needle Gauge: 21 Ultrasound used to visualize needle placement: Yes Ultrasound used to observe medication spread: Yes Injectate: 0.5% Ropivacaine (see comment for volume) (30cc) Blood Aspirated: No Pain Paresthesia on Injection Noted: No Resistance on Injection: Normal Image Stored and Saved: Yes Events: Uneventful and Well Tolerated
== END 2023-06-20 10:53 | disposition home or self-care (01) ==
LOC: OR 05:50
PROVIDERS: ATTEND Surgery
DX: I13.0 Hypertensive heart and chronic kidney disease with heart failure and stage 1 through stage 4 chronic kidney disease, or unspecified chronic kidney disease (principal); E11.22 Type 2 diabetes mellitus with diabetic chronic kidney disease; N18.6 End stage renal disease; I20.9 Angina pectoris, unspecified; E78.5 Hyperlipidemia, unspecified; J44.9 Chronic obstructive pulmonary disease, unspecified; G47.33 Obstructive sleep apnea (adult) (pediatric); J45.909 Unspecified asthma, uncomplicated; Z99.2 Dependence on renal dialysis; Z88.6 Allergy status to analgesic agent; Z88.8 Allergy status to other drugs, medicaments and biological substances; Z95.1 Presence of aortocoronary bypass graft; Z79.1 Long term (current) use of non-steroidal anti-inflammatories (NSAID); Z79.899 Other long term (current) drug therapy
CPT/HCPCS: 64415; 80053; 85025; 36830; L8670; J2250; J1644; J1100; J0690; J2405; J2001; J3010; J2795; J2704

== ENCOUNTER 2023-09-22 07:23 | Observation (INO) | payer MEDICARE ==
--- NOTE | 2023-09-22 07:57 | ED ---
General Adult HPI - General Chief complaint: Recheck/Abnormal Lab/Rx Stated complaint: Blood clot Time Seen by Provider: 09/22/23 07:43 Source: patient Mode of arrival: ambulatory Limitations: no limitations - History of Present Illness Initial comments: Is a 72-year-old male who presents emergency department complaining of left upper extremity AV fistula being clotted off. Has a history of CAD, angina, heart failure, COPD, diabetes on an insulin pump. Has been complaining of left upper extremity AV fistula clotting. States he had a mild complication last Tuesday where there was slow flow through the fistula and they may have removed part of a clot. Today when he reported for dialysis in his normal Tuesday, , Tuesday runs he was unable to get it due to concern for it being clotted off. Has no thrill or audible bruit. Has no other acute complaints at this time. Only missed dialysis is his run today due to clotted off graft. Presents for further evaluation. - Related Data Home Medications Medication Instructions Recorded Confirmed Nitroglycerin Sl Tabs [Nitrostat] 0.4 mg SL Q5M PRN 03/03/14 09/22/23 Ezetimibe [Zetia] 10 mg PO DAILY 05/19/16 09/22/23 Ferrous Sulfate [Iron (65 MG 325 mg PO DAILY 05/19/16 09/22/23 Elemental)] Insulin Aspart (For Pump) [NovoLOG 0.01 unit SQ-PUMP CONTINUOUS 05/28/18 09/22/23 (For Pump)] Pramipexole [Mirapex] 0.5 mg PO BID PRN 05/02/19 09/22/23 Ranolazine [Ranexa] 500 mg PO BID 05/02/19 09/22/23 Albuterol Inhaler [Ventolin Hfa 2 puff INHALATION RT-Q4H PRN 08/10/21 09/22/23 Inhaler] Aspirin EC [Ecotrin Low Dose] 81 mg PO DAILY 02/21/22 09/22/23 Glucagon Emergency Kit 1 mg IM ONCE PRN 02/21/22 09/22/23 Escitalopram [Lexapro] 10 mg PO DAILY 01/01/23 09/22/23 ALPRAZolam [Xanax] 0.5 mg PO HS PRN 06/17/23 09/22/23 Cholecalciferol [Vitamin D3 (25 50 mcg PO DAILY 06/17/23 09/22/23 Mcg = 1000 Iu)] Isosorbide Mononitrate [Isosorbide 30 mg PO DAILY 06/17/23 09/22/23 Mononitrate ER] Rosuvastatin [Crestor] 10 mg PO HS 06/17/23 09/22/23 Tamsulosin [Flomax] 0.4 mg PO HS 06/17/23 09/22/23 Cetirizine HCl [Zyrtec] 10 mg PO DAILY 09/22/23 09/22/23 Folic Acid/Vit B Complex and C 0.8 mg PO DAILY 09/22/23 09/22/23 [Nephro-Pooja Tablet] Torsemide [Demadex] 40 mg PO SUMOWEFR 09/22/23 09/22/23 Allergies Allergy/AdvReac Type Severity Reaction Status Date / Time atorvastatin [From Lipitor] AdvReac Unknown Verified 09/22/23 07:42 baclofen AdvReac Unknown Verified 09/22/23 07:42 Review of Systems ROS Statement: Those systems with pertinent positive or pertinent negative responses have been documented in the HPI. Review of Systems: CONST: Denies fever EYES: Denies blurry vision ENT: Denies nasal congestion C/V: Denies Chest pain RESP: Denies shortness of breath GI: Denies abdominal pain : Denies dysuria SKIN: Denies rash. MSK: Denies joint pain. NEURO: Denies headache ROS Other: All systems not noted in ROS Statement are negative. Past Medical History Past Medical History: Coronary Artery Disease (CAD), Chest Pain / Angina, Heart Failure, COPD, Diabetes Mellitus, Hearing Disorder / Deafness, Hyperlipidemia, Hypertension, Myocardial Infarction ([place]), Osteoarthritis (OA), Renal Disease, Sleep Apnea/CPAP/BIPAP Additional Past Medical History / Comment(s): 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. Chronic renal failure, dialysis [facility] normally. Patient has insulin pump. Has CPAP, occasionally uses. Neuropathy in feet and hands. Poor hearing. Last Myocardial Infarction Date:: 03/04/14 History of Any Multi-Drug Resistant Organisms: None Reported Past Surgical History: Cholecystectomy, Heart Catheterization, Heart Catheterization With Stent, Orthopedic Surgery Additional Past Surgical History / Comment(s): Shoulder surgeyr, hemorrhoi dectomy, cardiac stent in 06/2014, eye surgery, 3-4 cardiac stents. Past Anesthesia/Blood Transfusion Reactions: No Reported Reaction Additional Past Anesthesia/Blood Transfusion Reaction / Comment(s): Never had a blood transfusion. Date of Last Stent Placement:: 05/2014 Past Psychological History: Anxiety Smoking Status: Former smoker Past Alcohol Use History: None Reported Past Drug Use History: None Reported - Past Family History Father Family Medical History: Cancer Additional Family Medical History / Comment(s): Bladder cancer. Mother Family Medical History: Cancer, Diabetes Mellitus Additional Family Medical History / Comment(s): Pancreatic cancer. General Exam - General Exam Comments Initial Comments: General: Appears in no acute distress. HEAD: Normal with no signs of head trauma. EYES: PERRLA, EOMI, conjunctiva normal, no discharge. ENT: Hearing grossly intact, normal oropharynx. RESPIRATORY: Clear breath sounds bilaterally. No wheezes, rales, or rhonchi. C/V: Regular rate and rhythm. S1 and S2 auscultated, no edema, peripheral pulses 2+ and intact throughout. Left upper extremity forearm AV fistula has no thrill or bruit present. Distally, patient is vascularly intact. ABD: Abd is soft, nontender, nondistended EXT: Normal range of motion, no obvious deformity SKIN: No rashes or lesions observed on exposed skin. NEURO: Alert and oriented x 4. Cranial nerves II-XII intact. No focal sensory or strength deficits. Limitations: no limitations Course Vital Signs 09/22/23 09/22/23 07:40 08:15 Temperature 97.7 F Pulse Rate 135 H 69 Respiratory 18 22 Rate Blood Pressure 135/66 146/69 O2 Sat by Pulse 100 Oximetry Medical Decision Making - Medical Decision Making Was pt. sent in by a medical professional or institution (, PA, EMBOSSING PRESS OPERATOR MOLDED GOODS, urgent care, hospital, or fci...) When possible be specific @ -No Did you speak to anyone other than the patient for history (EMS, parent, family, police, friend...)? What history was obtained from this source @ -No Did you review nursing and triage notes (agree or disagree)? Why? @ -I reviewed and agree with nursing and triage notes Were old charts reviewed (outside hosp., previous admission, EMS record, old EKG, old radiological studies, urgent care reports/EKG's, fci records)? Report findings @ -Old charts reviewed Differential Diagnosis (chest pain, altered mental status, abdominal pain women, abdominal pain men, vaginal bleeding, weakness, fever, dyspnea, syncope, h eadache, dizziness, GI bleed, back pain, seizure, CVA, palpatations, mental health, musculoskeletal)? @ -Electrolyte abnormality, clotted AV fistula, dialysis complication. This list is not all inclusive. EKG interpreted by me (3pts min.). @ -As above X-rays interpreted by me (1pt min.). @ -None done CT interpreted by me (1pt min.). @ -None done U/S interpreted by me (1pt. min.). @ -None done What testing was considered but not performed or refused? (CT, X-rays, U/S, labs)? Why? @ -None What meds were considered but not given or refused? Why? @ -None Did you discuss the management of the patient with other professionals (professionals i.e. DrAndi, PA, EMBOSSING PRESS OPERATOR [employer], lab, RT, psych nurse, social human services assistants, professional organizer, teacher, county records management officer, case fitter)? Give summary @ -I contacted Dr. Tomlinson, on-call vascular surgery upon arrival who was in agreement the plan for workup and I will notify her of the results of labs and ultrasound. Vascular midlevel provider Shannan evaluate the patient and canceled ultrasound result there is obvious that the graft is thrombosed. Plan is for Systems Analyst Developer later for evaluation of the graft. Patient will be admitted.I spoke with Dr. Pang of [facility] regarding the admission and he accepted it. Was smoking cessation discussed for >3mins.? @ -No Was critical care preformed (if so, how long)? @ -No Were there social determinants of health that impacted care today? How? (Homelessness, low income, unemployed, alcoholism, drug addiction, transportation, low edu. Level, literacy, decrease access to med. care, shelter, rehab)? @ -No Was there de-escalation of care discussed even if they declined (Discuss DNR or withdrawal of care, Hospice)? DNR status @ -No What co-morbidities impacted this encounter? (DM, HTN, Smoking, COPD, CAD, Cancer, CVA, ARF, Chemo, Hep., AIDS, mental health diagnosis, sleep apnea, morbid obesity)? @ -None Was patient admitted / discharged? Hospital course, mention meds given and route, prescriptions, significant lab abnormalities, going to OR and other pertinent info. @ -Based on the patient's presentation and physical exam, presents with what appears to be a clotted AV fistula. Only missed dialysis this morning. Has no other acute complaints at this time. Vital signs remarkable for mild tachycardia in triage which will be monitored. Presents for further evaluation. We will obtain basic labs, as well as ultrasound of the AV fistula. I consulted Dr. Tomlinson and spoke with her on the phone and she was in agreement with this plan and I will notify her of the results of workup. Vascular midlevel provider Shannan evaluate the patient and canceled ultrasound result there is obvious that the graft is thrombosed. Plan is for Systems Analyst Developer later for evaluation of the graft. Patient will be admitted. I spoke with Dr. Pang of [facility] regarding the admission and he accepted it. Nephrology will be consulted. Undiagnosed new problem with uncertain prognosis? @ -No Drug Therapy requiring intensive monitoring for toxicity (Heparin, Nitro, Insulin, Cardizem)? @ -No Were any procedures done? @ -No Diagnosis/symptom? @ -Clotted left upper extremity AV fistula Acute, or Chronic, or Acute on Chronic? @ -Acute Uncomplicated (without systemic symptoms) or Complicated (systemic symptoms)? @ -Complicated Side effects of treatment? @ -No Exacerbation, Progression, or Severe Exacerbation? @ -No Poses a threat to life or bodily function? How? (Chest pain, [place], [place], pneumonia, PE, COPD, DKA, ARF, appy, cholecystitis, CVA, Diverticulitis, Homicidal, Suicidal, threat to staff... and all critical care pts) @ -Yes - Lab Data Result diagrams: 09/22/23 08:15 09/22/23 08:15 Lab Results 09/22/23 09/22/23 09/22/23 Range/Units 08:15 08:15 08:15 WBC 7.1 (3.8-10.6) k/uL RBC 3.82 L (4.30-5.90) m/uL Hgb 12.2 L (13.0-17.5) gm/dL Hct 35.2 L (39.0-53.0) % MCV 92.2 (80.0-100.0) fL MCH 32.0 (25.0-35.0) pg MCHC 34.7 (31.0-37.0) g/dL RDW 13.0 (11.5-15.5) % Plt Count 176 (150-450) k/uL MPV 8.2 Neutrophils % 61 % Lymphocytes % 24 % Monocytes % 8 % Eosinophils % 3 % Basophils % 1 % Neutrophils # 4.3 (1.3-7.7) k/uL Lymphocytes # 1.7 (1.0-4.8) k/uL Monocytes # 0.5 (0-1.0) k/uL Eosinophils # 0.2 (0-0.7) k/uL Basophils # 0.0 (0-0.2) k/uL PT 10.5 (10.0-12.5) sec INR 1.0 (<1.2) APTT 25.6 (22.0-30.0) sec Sodium 137 (137-145) mmol/L Potassium 3.8 (3.5-5.1) mmol/L Chloride 97 L (98-107) mmol/L Carbon Dioxide 23 (22-30) mmol/L Anion Gap 17 mmol/L BUN 66 H (9-20) mg/dL Creatinine 4.16 H (0.66-1.25) mg/dL Est GFR (CKD-EPI)AfAm 15 (>60 ml/min/1.73 sqM) Est GFR (CKD-EPI)NonAf 13 (>60 ml/min/1.73 sqM) Glucose 109 H (74-99) mg/dL Calcium 9.2 (8.4-10.2) mg/dL Total Bilirubin 0.6 (0.2-1.3) mg/dL AST 26 (17-59) U/L ALT 18 (4-49) U/L Alkaline Phosphatase 99 (38-126) U/L Total Protein 8.1 (6.3-8.2) g/dL Albumin 4.4 (3.5-5.0) g/dL - EKG Data -: EKG Interpreted by Me EKG Comments: 12-lead Electrocardiogram Interpretation Note EKG was reviewed and interpreted by myself. 12-lead ECG performed at 0753 is interpreted by me as revealing normal sinus rhythm at a rate of 66 Beats per minute. left axis deviation. CA interval is 224 ms, QRS duration is 169 ms, QTc is 500 ms. PAC present. There were no ST or T wave abnormalities to suggest myocardial ischemia or injury. R wave progression across the precordium was delayed. By my interpretation this EKG is non-diagnostic for acute ischemia. Disposition Clinical Impression: Thrombosis of dialysis vascular access Disposition: ADMITTED IP TO THIS HOSP Condition: Stable Time of Disposition: 08:47
[2023-09-22 08:23] LABS: Basophils % (A) 1 %; Eosinophils # (A) 0.2 k/uL (0-0.7); Eosinophils % (A) 3 %; HCT 35.2 % (39.0-53.0); HGB 12.2 gm/dL (13.0-17.5); Lymphocytes # (A) 1.7 k/uL (1.0-4.8); Lymphocytes % (A) 24 %; MCHC 34.7 g/dL (31.0-37.0); MCV 92.2 fL (80.0-100.0); Mean Platelet Volume 8.2; Monocytes # (A) 0.5 k/uL (0-1.0); Monocytes % (A) 8 %; Neutrophils # (A) 4.3 k/uL (1.3-7.7); Neutrophils % (A) 61 %; Platelet Count 176 k/uL (150-450); RBC 3.82 m/uL (4.30-5.90); WBC 7.1 k/uL (3.8-10.6)
--- NOTE | 2023-09-22 08:32 | P.GSCN ---
History of Present Illness Consult date: 09/22/23 Reason for Consult: Thrombosed left upper extremity AV graft Requesting physician: Laci Zhu History of present illness: This is a pleasant 72-year-old male with a history of end-stage renal disease requiring hemodialysis since March 2023. He had a left upper extremity AV graft created on 06/20/[address] Amador. States that he has been functioning fine up until Tuesday which she states there was some slow flow, he did go Tuesday and did get a full dialysis. However this morning patient went in for dialysis and he was told it was clotted. He did have a tunneled catheter however that was discontinued about 4 weeks ago. He denies any shortness of breath or chest pain at this time. He does have a history of coronary artery disease, COPD, heart failure, diabetes mellitus, hypertension and hype rlipidemia. He has had some chest pain in the recent past and is scheduled to undergo cardiac catheterization next week with Dr. Jenkins. He denies any pain to the left upper extremity, swelling, bleeding or drainage from site. Labs are currently pending. Review of Systems A 14 point review systems was completed all pertinent positives and negatives as stated in the HPI. Past Medical History Past Medical History: Coronary Artery Disease (CAD), Chest Pain / Angina, Heart Failure, COPD, Diabetes Mellitus, Hearing Disorder / Deafness, Hyperlipidemia, Hypertension, Myocardial Infarction ([place]), Osteoarthritis ([place]), Renal Disease, Sleep Apnea/CPAP/BIPAP Additional Past Medical History / Comment(s): 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. Chronic renal failure, dialysis [facility] normally. Patient has insulin pump. Has CPAP, occasionally uses. Neuropathy in feet and hands. Poor hearing. Last Myocardial Infarction Date:: 03/04/14 History of Any Multi-Drug Resistant Organisms: None Reported Past Surgical History: Cholecystectomy, Heart Catheterization, Heart Catheterization With Stent, Orthopedic Surgery Additional Past Surgical History / Comment(s): Shoulder surgeyr, hemorrhoidectomy, cardiac stent in 06/2014, eye surgery, 3-4 cardiac stents. Past Anesthesia/Blood Transfusion Reactions: No Reported Reaction Additional Past Anesthesia/Blood Transfusion Reaction / Comm: Never had a blood transfusion. Date of Last Stent Placement:: 05/2014 Past Psychological History: Anxiety Smoking Status: Former smoker Past Alcohol Use History: None Reported Past Drug Use History: None Reported - Past Family History Father Family Medical History: Cancer Additional Family Medical History / Comment(s): Bladder cancer. Mother Family Medical History: Cancer, Diabetes Mellitus Additional Family Medical History / Comment(s): Pancreatic cancer. Medications and Allergies Home Medications Medication Instructions Recorded Confirmed Type Nitroglycerin Sl Tabs [Nitrostat] 0.4 mg SL Q5M PRN 03/03/14 06/20/23 History Ezetimibe [Zetia] 10 mg PO DAILY 05/19/16 06/20/23 History Ferrous Sulfate [Iron (65 MG 325 mg PO DAILY 05/19/16 06/20/23 History Elemental)] Insulin Aspart (For Pump) [NovoLOG 0.01 unit SQ-PUMP CONTINUOUS 05/28/18 06/20/23 History (For Pump)] Pramipexole [Mirapex] 0.5 mg PO HS PRN 05/02/19 06/20/23 History Ranolazine [Ranexa] 500 mg PO BID 05/02/19 06/20/23 History Albuterol Inhaler [Ventolin Hfa 2 puff INHALATION Q4H PRN 08/10/21 06/20/23 History Inhaler] Fluticasone Propion/Salmeterol 1 puff INHALATION BID 08/10/21 06/20/23 History [Wixela 100-50 Inhub] Aspirin EC [Ecotrin Low Dose] 81 mg PO HS 02/21/22 06/20/23 History Glucagon Emergency Kit 1 mg IM ONCE PRN 02/21/22 06/20/23 History Escitalopram [Lexapro] 10 mg PO QAM 01/01/23 06/20/23 History Torsemide [Demadex] 40 mg PO DAILY #60 tab 04/02/23 06/20/23 Rx ALPRAZolam [Xanax] 0.5 mg PO HS PRN 06/17/23 06/20/23 History Cholecalciferol [Vitamin D3 (25 50 mcg PO DAILY 06/17/23 06/17/23 History Mcg = 1000 Iu)] Isosorbide Mononitrate [Isosorbide 30 mg PO QAM 06/17/23 06/20/23 History Mononitrate ER] Rosuvastatin [Crestor] 10 mg PO HS 06/17/23 06/20/23 History Tamsulosin [Flomax] 0.4 mg PO HS 06/17/23 06/20/23 History Tums (Unknown Dose) 1 tab PO AC-TID 06/17/23 06/17/23 History Allergies Allergy/AdvReac Type Severity Reaction Status Date / Time atorvastatin [From Lipitor] AdvReac Unknown Verified 09/22/23 07:42 baclofen AdvReac Unknown Verified 09/22/23 07:42 Surgical - Exam Vital Signs Temp Pulse Resp BP Pulse Ox 97.7 F 135 H 18 135/66 100 09/22/23 07:40 09/22/23 07:40 09/22/23 07:40 09/22/23 07:40 09/22/23 07:40 General appearance: The patient is alert, oriented, appears in no acute distress. HET: Head is normocephalic and atraumatic. Pupils are equal and reactive. Neck: Supple. Heart: Regular. Lungs: Equal expansion, normal respiratory effort. Abdomen: Soft, nontender, nondistended. Extremities: Normal skin color and turgor. Palpable radial pulses. Left upper extremity loop AV graft with no palpable thrill and no audible bruit. Neurological: No focal deficits. Alert and oriented x 3. Results - Labs 09/22/23 08:15 Assessment and Plan Assessment: 1. Thrombosed left upper extremity AV loop graft 2. End-stage renal disease requiring hemodialysis 3. Coronary artery disease 4. COPD 5. Diabetes mellitus 6. Hypertension and hyperlipidemia Plan: 1. Keep n.p.o. 2. Patient scheduled for left upper extremity thrombectomy, lysis with possible tunneled catheter 3. Will cancel arterial ultrasound as patient will be going to the OR soon 4. Hemodialysis per recommendations from nephrology Thank you for this consultation. The impression and plan of care has been dictated as directed. Dr. Tomlinson I performed a history and examination of this patient, discussed the same with the dictator. I agree with the dictator's note ,documented as a scribe. Any additional findings or plans will be noted.
[2023-09-22 08:34] LABS: Partial Thromboplastin Time 25.6 sec (22.0-30.0); Prothrombin Time 10.5 sec (10.0-12.5)
[2023-09-22] MEDS ORDERED: LIDOCAINE 1% INJ 10MG/ML (20 ML MDV) ONE (08:59)
[2023-09-22] MEDS ORDERED: NALOXONE 0.4 MG/ML 1 ML VIAL IV PRN (09:03)
[2023-09-22] MEDS: SODIUM CHLORIDE 0.9% 250 ML IV ONE (09:03)
[2023-09-22 09:11] LABS: ALT 18 U/L (4-49); AST 26 U/L (17-59); African American GFR (CKD) 15 (>60 ml/min/1.73 sqM); Albumin 4.4 g/dL (3.5-5.0); Alkaline Phosphatase 99 U/L (38-126); Anion Gap 17 mmol/L; Blood Urea Nitrogen 66 mg/dL (9-20); Calcium 9.2 mg/dL (8.4-10.2); Carbon Dioxide 23 mmol/L (22-30); Chloride 97 mmol/L (98-107); Glucose 109 mg/dL (74-99); Non-African American GFR(CKD) 13 (>60 ml/min/1.73 sqM); Potassium 3.8 mmol/L (3.5-5.1); Sodium 137 mmol/L (137-145); Total Bilirubin 0.6 mg/dL (0.2-1.3); Total Protein 8.1 g/dL (6.3-8.2)
[2023-09-22] MEDS: LIDOCAINE 1% INJ 10MG/ML (30 ML VIAL-PF) SQ ONE (09:23)
[2023-09-22] MEDS: DEXTROSE 5% IN WATER 250 ML IV ONE (09:25)
[2023-09-22] MEDS: ALTEPLASE 2 MG VIAL (CATHFLO) IV STA (09:40)
[2023-09-22] MEDS: ALTEPLASE 2 MG VIAL (CATHFLO) MISCELLANE ONE (09:47)
--- NOTE | 2023-09-22 10:31 | P.OP ---
Date of Procedure: 09/22/23 Description of Procedure: Preoperative diagnosis: End-stage renal disease, thrombosed left upper extremity loop forearm graft Postoperative diagnosis: Same, outflow stenosis Procedure: #1 ultrasound-guided left upper extremity loop AV graft access x 2 Left upper extremity venogram Left upper extremity angiogram via brachial artery Pharmacomechanical thrombectomy with AngioJet Percutaneous transluminal balloon angioplasty 7 x 40 outflow anastomosis Surgeon: Beronica Tomlinson D.O. EBL: 10 cc IV fluids: See records Urine output: Not measured Drains: None Complications: None immediately apparent Condition: Stable Operative indication and findings: Patient is a 72-year-old male with end-stage renal disease who in the past few weeks had his tunneled dialysis catheter pulled as a were using his left loop forearm graft. He was able to get dialysis on Tuesday but when he presented today, he was noted to have a thrombosed graft. He states that in the past few visits they've been having some difficulty with access due to the depth and did pull clots few visits back. Plan was for thrombectomy. He seems understood and is willing to proceed. Procedure in detail: Patient was taken to the special suite and placed in supine position. The left upper extremity was prepped and draped in usual sterile f ashion. A preprocedure timeout was performed, all parties were in agreement. Using ultrasound, the graft was accessed first in the outflow direction. Seldinger technique was used to place a 6 [place] sheath. A permanent image had been stored. Catheters and wires were used to access the outflow vein. A venogram was performed past anastomosis showing a widely patent cephalic vein with good flow into the deep system at the level of the shoulder. No evidence of stenosis here. Through the catheter, tPA was instilled and left to dwell. Attention was then turned towards the inflow. Again an ultrasound was utilized, the graft was accessed and a 6 [place] sheath was placed. Catheters and wires were used to access the brachial artery. An angiogram was performed showing patent brachial, radial and ulnar vessels. The tPA was then instilled and left to dwell through the remainder of the catheter. Attention was then turned back to the outflow where the suction thrombectomy was performed with multiple passes. A repeat image was performed showing significant improvement without any residual thrombus. There was evidence of high-grade stenosis at the outflow therefore a 7 x 40 balloon was utilized. There was significant improvement of the outflow stenosis. Attention was then turned towards the inflow, the thrombectomy catheter was passed multiple times. There was improvement with return of pulsatility and thrill through the graft. An angiogram for the brachial artery was performed showing no significant anastomotic narrowing with brisk flow through the graft. Catheters and wires were then removed. [id number] sutures were placed and the sheaths were removed. Manual pressure was held until hemostasis is adequate. The patient was allowed to awaken and transferred to recovery in stable condition.
[2023-09-22] MEDS: NITROGLYCERIN SL TABS 0.4 MG TAB SUBLINGUAL ONE (10:53)
[2023-09-22] MEDS: RANOLAZINE 500 MG TAB.ER.12H PO SCH ×2 (10:59→22:59)
[2023-09-22] MEDS: ISOSORBIDE MONONITRATE ER 30 MG TAB.ER.24H PO STA (10:59)
[2023-09-22] MEDS: ASPIRIN 81 MG PO STA (10:59)
[2023-09-22] MEDS: MORPHINE SULFATE 4 MG/ML SYRINGE ONE (11:06)
[2023-09-22] MEDS: ONDANSETRON 4 MG/2 ML VIAL ONE (11:08)
[2023-09-22] MEDS: MORPHINE SULFATE 2 MG/ML SYRINGE IVP STA (11:08)
[2023-09-22] MEDS: ONDANSETRON 4 MG/2 ML VIAL IVP STA (11:09)
[2023-09-22] MEDS: MAG HYDROX/AL HYDROX/SIMETH 30 ML CUP PO PRN (11:13)
--- NOTE | 2023-09-22 11:13 | IR ---
EXAMINATION TYPE: IR angio extremity LT DATE OF EXAM: 09/22/2023 COMPARISON: NONE HISTORY: Fluoroscopy time. Fluoroscopy was provided to the referring clinician.
[2023-09-22] MEDS: NITROGLYCERIN OINT 1 INCH/GM PACKET TOPICAL SCH (12:20)
--- NOTE | 2023-09-22 12:47 | P.CRDCN ---
History of Present Illness Consult date: 09/22/23 History of present illness: HISTORY OF PRESENTING ILLNESS 72-year-old male known to Dr. Castle. Past medical history of hypertension dyslipidemia, CAD s/p prior [employer] of LCx, with collaterals, CKD on hemodialysis, nonischemic cardiomyopathy of mildly reduced EF of 45 to 50%, type 2 diabetes, neuropathy, JEN. In March 2023 patient underwent a heart cath which showed IFR positive LAD disease and 50% distal left main disease and 50 to 60% RCA disease. Patient did not underwent any intervention at that time due to low dye threshold. Patient has been following up with Dr. Castle for stable anginal symptoms and has been manage medically. He is scheduled for a staged PCI next week. Today he was in hospital for an outpatient left upper extremity dialysis fistula repair with Dr. Tomlinson. He underwent angio jet thrombectomy and alteplase thrombolysis. Post Operatively in holding area patient started having substernal chest pressure-like symptoms. For this patient received 2 sublingual nitroglycerin and his symptoms got better. We performed an immediate ECG which did not show any new changes from his baseline ECG. It was normal sinus rhythm with, right bundle branch block, LAFB. We resumed his home medications which included aspirin and Imdur Ranexa. He is not any beta-narcisa due to low resting heart rate in 60s. He has frequent PVCs on telemetry. REVIEW OF SYSTEMS 14 point review of system is negative except what is mentioned above in HPI. PHYSICAL EXAMINATION Vital signs reviewed. Head: Normocephalic. Eyes: Sclerae nonicteric. Neck: Brisk carotid upstroke, no jugular venous distention. Lungs: Clear to auscultation. Heart: Regular rate and rhythm, S1-S2, no S3, systolic murmur in aortic area radiating to carotids. Abdomen: Soft nontender, positive bowel sounds. Extremities: No edema, AV fistula in the forearm Neuro: Alert, oritented, no focal deficits. Detailed neuro exam was not performed. ASSESSMENT Substernal chest pain, after left AV fistula repair. Likely stable angina. 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 Castle Obtain an echocardiogram to evaluate aortic valve and any worsening cardiomyopathy Sumit Justice MD, FACC, RPVI Thank you for allowing [facility] to participate in this patient's care. Feel free to reach out in case of any followup questions. Past Medical History Past Medical History: Coronary Artery Disease (CAD), Chest Pain / Angina, Heart Failure, COPD, Diabetes Mellitus, Hearing Disorder / Deafness, Hyperlipidemia, Hypertension, Myocardial Infarction (PR), Osteoarthritis (OA), Renal Disease, Sleep Apnea/CPAP/BIPAP Additional Past Medical History / Comment(s): 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. Chronic renal failure, dialysis [facility] normally. Patient has insulin pump. Has CPAP, occasionally uses. Neuropathy in feet and hands. Poor hearing. Last Myocardial Infarction Date:: 03/04/14 History of Any Multi-Drug Resistant Organisms: None Reported Past Surgical History: Cholecystectomy, Heart Catheterization, Heart Catheterization With Stent, Orthopedic Surgery Additional Past Surgical History / Comment(s): Shoulder surgeyr, hemor rhoidectomy, cardiac stent in 06/2014, eye surgery, 3-4 cardiac stents. Past Anesthesia/Blood Transfusion Reactions: No Reported Reaction Additional Past Anesthesia/Blood Transfusion Reaction / Comment(s): Never had a blood transfusion. Date of Last Stent Placement:: 05/2014 Past Psychological History: Anxiety Smoking Status: Former smoker Past Alcohol Use History: None Reported Past Drug Use History: None Reported - Past Family History Father Family Medical History: Cancer Additional Family Medical History / Comment(s): Bladder cancer. Mother Family Medical History: Cancer, Diabetes Mellitus Additional Family Medical History / Comment(s): Pancreatic cancer. Medications and Allergies Home Medications Medication Instructions Recorded Confirmed Type Nitroglycerin Sl Tabs [Nitrostat] 0.4 mg SL Q5M PRN 03/03/14 09/22/23 History Ezetimibe [Zetia] 10 mg PO DAILY 05/19/16 09/22/23 History Ferrous Sulfate [Iron (65 MG 325 mg PO DAILY 05/19/16 09/22/23 History Elemental)] Insulin Aspart (For Pump) [NovoLOG 0.01 unit SQ-PUMP CONTINUOUS 05/28/18 09/22/23 History (For Pump)] Pramipexole [Mirapex] 0.5 mg PO BID PRN 05/02/19 09/22/23 History Ranolazine [Ranexa] 500 mg PO BID 05/02/19 09/22/23 History Albuterol Inhaler [Ventolin Hfa 2 puff INHALATION RT-Q4H PRN 08/10/21 09/22/23 History Inhaler] Aspirin EC [Ecotrin Low Dose] 81 mg PO DAILY 02/21/22 09/22/23 History Glucagon Emergency Kit 1 mg IM ONCE PRN 02/21/22 09/22/23 History Escitalopram [Lexapro] 10 mg PO DAILY 01/01/23 09/22/23 History ALPRAZolam [Xanax] 0.5 mg PO HS PRN 06/17/23 09/22/23 History Cholecalciferol [Vitamin D3 (25 50 mcg PO DAILY 06/17/23 09/22/23 History Mcg = 1000 Iu)] Isosorbide Mononitrate [Isosorbide 30 mg PO DAILY 06/17/23 09/22/23 History Mononitrate ER] Rosuvastatin [Crestor] 10 mg PO HS 06/17/23 09/22/23 History Tamsulosin [Flomax] 0.4 mg PO HS 06/17/23 09/22/23 History Cetirizine HCl [Zyrtec] 10 mg PO DAILY 09/22/23 09/22/23 History Folic Acid/Vit B Complex and C 0.8 mg PO DAILY 09/22/23 09/22/23 History [Nephro-Pooja Tablet] Torsemide [Demadex] 40 mg PO SUMOWEFR 09/22/23 09/22/23 History Allergies Allergy/AdvReac Type Severity Reaction Status Date / Time atorvastatin [From Lipitor] AdvReac Unknown Verified 09/22/23 07:42 baclofen AdvReac Unknown Verified 09/22/23 07:42 Physical Exam Vitals: Vital Signs Temp Pulse Resp BP Pulse Ox 09/22/23 08:56 73 22 137/73 96 09/22/23 08:15 69 22 146/69 09/22/23 07:40 97.7 F 135 H 18 135/66 100 Intake and Output 09/21/23 09/22/23 09/22/23 22:59 06:59 14:59 Intake Total 70 Balance 70 Intake: IV 70 Other: Weight 99.79 kg Results 09/22/23 08:15 09/22/23 08:15 Cardiac Enzymes 09/22/23 Range/Units 08:15 AST 26 (17-59) U/L Coagulation 09/22/23 Range/Units 08:15 PT 10.5 (10.0-12.5) sec APTT 25.6 (22.0-30.0) sec CBC 09/22/23 Range/Units 08:15 WBC 7.1 (3.8-10.6) k/uL RBC 3.82 L (4.30-5.90) m/uL Hgb 12.2 L (13.0-17.5) gm/dL Hct 35.2 L (39.0-53.0) % Plt Count 176 (150-450) k/uL Comprehensive Metabolic Panel 09/22/23 Range/Units 08:15 Sodium 137 (137-145) mmol/L Potassium 3.8 (3.5-5.1) mmol/L Chloride 97 L (98-107) mmol/L Carbon Dioxide 23 (22-30) mmol/L BUN 66 H (9-20) mg/dL Creatinine 4.16 H (0.66-1.25) mg/dL Glucose 109 H (74-99) mg/dL Calcium 9.2 (8.4-10.2) mg/dL AST 26 (17-59) U/L ALT 18 (4-49) U/L Alkaline Phosphatase 99 (38-126) U/L Total Protein 8.1 (6.3-8.2) g/dL Albumin 4.4 (3.5-5.0) g/dL Current Medications Generic Name Dose Route Start Last Admin Trade Name Freq PRN Reason Stop Dose Admin Al Hydroxide/Mg Hydroxide 30 ml 09/22/23 11:09 09/22/23 11:13 Mag Hydrox/Al Hydrox/Simeth 30 Ml Cup PO 30 ml Q4HR PRN Administration GI Upset Naloxone HCl 0.2 mg 09/22/23 09:03 Naloxone 0.4 Mg/Ml 1 Ml Vial IV Q2M PRN Opioid Reversal Nitroglycerin 1 inch 09/22/23 12:15 09/22/23 12:20 Nitroglycerin Oint 1 Inch/Gm Packet TOPICAL 1 inch Q6HR JOEY Administration Ranolazine 500 mg 09/22/23 11:00 09/22/23 10:59 Ranolazine 500 Mg Tab.Er.12h PO 500 mg Q12HR JOEY Administration Intake and Output 09/21/23 09/22/23 09/22/23 22:59 06:59 14:59 Intake Total 70 Balance 70 Intake: IV 70 Other: Weight 99.79 kg Patient Weight 09/23/23 06:59 Weight 99.79 kg 09/22/23 08:15 09/22/23 08:15
[2023-09-22] MEDS ORDERED: ALBUTEROL NEBULIZED 2.5 MG/3 ML INHALATION PRN (13:25)
--- NOTE | 2023-09-22 14:54 | P.HPIM ---
History of Present Illness H&P Date: 09/22/23 Patient is a 72-year-old male with end-stage renal disease on hemodialysis Tuesday//Tuesday, diabetes mellitus on an insulin pump, COPD, diastolic congestive heart failure, and multiple other comorbid conditions who presented to the emergency department at the direction of dialysis due to his fistula not working. On arrival to the ER he was tachycardic with a pulse of 135. Initial laboratory analysis included CBC, coags, and CMP which were remarkable for BUN of 66 and creatinine of 4.16 consistent with his known end-stage renal disease. Vascular surgery was consulted. Patient was taken from the ER to the vascular lab and underwent thrombectomy of the fistula. He tolerated the procedure well. In recovery he started having 10 out of 10 chest pain. He was assessed by cardiology. Chest pain improved with 3 nitro. Patient is scheduled for outpatient cardiac cath due to unstable angina. He typically follows with Dr. Castle. Patient seen and examined at bedside with present. He reports that in the PACU he started having 10 out of 10 chest pain. It started in the left lower chest and radiated to the right lower chest. believes he may have been gabi phoretic. He was having some associated nausea. He denies any lightheadedness, dizziness, or shortness of breath with this episode. He has been having escalating episodes of chest pain at home that are worse with exertion and better with rest. He was scheduled for outpatient cardiac cath with Dr. Castle. He has otherwise been in his typical state of health. He has not missed any dialysis. He completed his entire dialysis session on Tuesday. He has been struggling with both hyper and hypoglycemia at home. He is on an insulin pump and is actively working with Dr. Vigil's practice to improve this. Vital signs reviewed General: nontoxic, no distress, appears at stated age Derm: warm, dry, Left AV graft with swelling and bruising Eyes: EOMI, no lid lag, anicteric sclera, pupils equal round reactive to light ENT: Nose and ears atraumatic Cardiovascular: S1S2 reg, no murmur, no edema Lungs: clear to auscultation bilateral, no rhonchi, no rales, no wheeze, no accessory muscle use Abdominal: soft, nontender to palpation, no guarding Ext: no gross muscle atrophy, no contractures Neuro: CN II-XII grossly intact, No focal neuro deficits Psych: Alert, oriented, appropriate affect Assessment/Plan: Thrombosed left upper extremity AV graft s/p back to [place] End-stage renal disease requiring hemodialysis -Patient successfully underwent thrombectomy. Case discussed with Dr. Cadena. Will have dialysis today. Chest pain Compensated HFmrEF EF 45 to 50% - Was responsive to nitro tablets, but chest pain is coming back. Start Nitropaste 1 inch every 6 hours - Aspirin 81 mg daily, Lipitor 40 mg daily - Renexa 500 mg q 12 hour - Await cardiology recs - Torsemide 40 mg on nondialysis days - check troponin Diabetes mellitus type 2 on insulin pump -Continue with home insulin pump -Accu-Cheks before every meal and at bedtime Chronic: Hypertension Dyslipidemia Osteoarthritis JEN uses CPAP occasionally Neuropathy Imaging: None Data Review: As per HPI The patient is admitted with an anticipated less than 2 midnight stay for evaluation of thrombosed left upper extremity graft. Anticipated discharge date: in AM Anticipated discharge place: Home This dictation was prepared using [employer] voice recognition software. Though every attempt is made to correct errors during dictation some may still exist. Past Medical History Past Medical History: Coronary Artery Disease (CAD), Chest Pain / Angina, Heart Failure, COPD, Diabetes Mellitus, Hearing Disorder / Deafness, Hyperlipidemia, Hypertension, Myocardial Infarction ([place]), Osteoarthritis (OA), Renal Disease, Sleep Apnea/CPAP/BIPAP Additional Past Medical History / Comment(s): 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. Chronic renal failure, dialysis [facility] normally. Patient has insulin pump. Has CPAP, occasionally uses. Neuropathy in feet and hands. Poor hearing. Last Myocardial Infarction Date:: 03/04/14 History of Any Multi-Drug Resistant Organisms: None Reported Past Surgical History: Cholecystectomy, Heart Catheterization, Heart Catheterization With Stent, Orthopedic Surgery Additional Past Surgical History / Comment(s): Shoulder surgeyr, hemorrhoidectomy, cardiac stent in 06/2014, eye surgery, 3-4 cardiac stents. Past Anesthesia/Blood Transfusion Reactions: No Reported Reaction Additional Past Anesthesia/Blood Transfusion Reaction / Comment(s): Never had a blood transfusion. Date of Last Stent Placement:: 05/2014 Past Psychological History: Anxiety Smoking Status: Former smoker Past Alcohol Use History: None Reported Past Drug Use History: None Reported - Past Family History Father Family Medical History: Cancer Additional Family Medical History / Comment(s): Bladder cancer. Mother Family Medical History: Cancer, Diabetes Mellitus Additional Family Medical History / Comment(s): Pancreatic cancer. Medications and Allergies Home Medications Medication Instructions Recorded Confirmed Type Nitroglycerin Sl Tabs [Nitrostat] 0.4 mg SL Q5M PRN 03/03/14 09/22/23 History Ezetimibe [Zetia] 10 mg PO DAILY 05/19/16 09/22/23 History Ferrous Sulfate [Iron (65 MG 325 mg PO DAILY 05/19/16 09/22/23 History Elemental)] Insulin Aspart (For Pump) [NovoLOG 0.01 unit SQ-PUMP CONTINUOUS 05/28/18 09/22/23 History (For Pump)] Pramipexole [Mirapex] 0.5 mg PO BID PRN 05/02/19 09/22/23 History Ranolazine [Ranexa] 500 mg PO BID 05/02/19 09/22/23 History Albuterol Inhaler [Ventolin Hfa 2 puff INHALATION RT-Q4H PRN 08/10/21 09/22/23 History Inhaler] Aspirin EC [Ecotrin Low Dose] 81 mg PO DAILY 02/21/22 09/22/23 History Glucagon Emergency Kit 1 mg IM ONCE PRN 02/21/22 09/22/23 History Escitalopram [Lexapro] 10 mg PO DAILY 01/01/23 09/22/23 History ALPRAZolam [Xanax] 0.5 mg PO HS PRN 06/17/23 09/22/23 History Cholecalciferol [Vitamin D3 (25 50 mcg PO DAILY 06/17/23 09/22/23 History Mcg = 1000 Iu)] Isosorbide Mononitrate [Isosorbide 30 mg PO DAILY 06/17/23 09/22/23 History Mononitrate ER] Rosuvastatin [Crestor] 10 mg PO HS 06/17/23 09/22/23 History Tamsulosin [Flomax] 0.4 mg PO HS 06/17/23 09/22/23 History Cetirizine HCl [Zyrtec] 10 mg PO DAILY 09/22/23 09/22/23 History Folic Acid/Vit B Complex and C 0.8 mg PO DAILY 09/22/23 09/22/23 History [Nephro-Pooja Tablet] Torsemide [Demadex] 40 mg PO SUMOWEFR 09/22/23 09/22/23 History Allergies Allergy/AdvReac Type Severity Reaction Status Date / Time atorvastatin [From Lipitor] AdvReac Unknown Verified 09/22/23 07:42 baclofen AdvReac Unknown Verified 09/22/23 07:42 Physical Exam Osteopathic Statement: *. No significant issues noted on an osteopathic structural exam other than those noted in the History and Physical/Consult. Vitals: Vital Signs Temp Pulse Pulse Resp BP BP Pulse Ox 09/22/23 12:14 62 16 148/68 100 09/22/23 11:44 60 16 151/67 100 09/22/23 11:14 65 20 184/77 100 09/22/23 10:50 62 20 164/74 100 09/22/23 10:44 69 16 182/85 99 09/22/23 10:29 66 16 188/88 99 09/22/23 08:56 73 22 137/73 96 09/22/23 08:15 69 22 146/69 09/22/23 07:40 97.7 F 135 H 18 135/66 100 Intake and Output 09/21/23 09/22/23 09/22/23 22:59 06:59 14:59 Intake Total 70 Balance 70 Intake: IV 70 Other: Weight 99.79 kg Results CBC & Chem 7: 09/22/23 08:15 09/22/23 08:15 Labs: Abnormal Lab Results - Last 24 Hours (Table) 09/22/23 09/22/23 Range/Units 08:15 08:15 RBC 3.82 L (4.30-5.90) m/uL Hgb 12.2 L (13.0-17.5) gm/dL Hct 35.2 L (39.0-53.0) % Chloride 97 L (98-107) mmol/L BUN 66 H (9-20) mg/dL Creatinine 4.16 H (0.66-1.25) mg/dL Glucose 109 H (74-99) mg/dL
[2023-09-22 16:48] LABS: Glucose,Whole Blood 171 mg/dL (70-110)
[2023-09-22] MEDS: Insulin Aspart (For Pump) 100 UNIT/ML VIAL SQ-PUMP SCH (17:25)
[2023-09-22] MEDS ORDERED: CALCIUM CARBONATE 500 MG CHEWABLE PO PRN (17:47)
[2023-09-22 17:51] VITALS: RESP 18
[2023-09-22] MEDS: ASPIRIN 81 MG PO SCH (18:17)
[2023-09-22] MEDS: EZETIMIBE 10 MG TAB PO SCH (18:18)
[2023-09-22] MEDS: ESCITALOPRAM 10 MG TAB PO SCH (18:18)
[2023-09-22] MEDS: FERROUS SULFATE 325 MG TAB PO SCH (18:18)
[2023-09-22] MEDS: NITROGLYCERIN SL TABS 0.4 MG TAB SUBLINGUAL PRN (18:49)
[2023-09-22] MEDS: ALTEPLASE 10 MG in SODIUM CHLORIDE 0.9% 50 ML MISCELLANE ONE (18:55)
[2023-09-22] MEDS: NITROGLYCERIN-D5W PMX 50 MG in DEXTROSE/WATER 1 250ML.BAG IV SCH (19:46)
[2023-09-22] MEDS: ATORVASTATIN 40 MG TAB PO SCH (20:02)
[2023-09-22 20:16] LABS: Glucose,Whole Blood 269 mg/dL (70-110)
[2023-09-22] MEDS: TAMSULOSIN 0.4 MG CAP.ER.24H PO SCH (23:03)
[2023-09-23 02:11] LABS: Glucose,Whole Blood 81 mg/dL (70-110)
[2023-09-23 04:10] LABS: Glucose,Whole Blood 58 mg/dL (70-110)
[2023-09-23] MEDS ORDERED: DEXTROSE 50% SYRINGE 50 ML IVP PRN ×2 (04:17)
[2023-09-23 04:32] LABS: Glucose,Whole Blood 79 mg/dL (70-110)
[2023-09-23 05:57] LABS: Glucose,Whole Blood 93 mg/dL (70-110)
[2023-09-23] MEDS ORDERED: ISOSORBIDE MONONITRATE ER 30 MG TAB.ER.24H PO SCH (09:00)
[2023-09-23] MEDS: FOLIC ACID-VIT B COMPLEX-VIT C 1 CAP PO SCH (09:10)
[2023-09-23] MEDS: TORSEMIDE 20 MG TAB PO SCH (09:11)
[2023-09-23] MEDS: LORATADINE 10 MG TAB PO SCH (09:11)
[2023-09-23] MEDS: CHOLECALCIFEROL 25 MCG (1000 IU) TABLET PO SCH (09:11)
[2023-09-23] MEDS: ISOSORBIDE MONONITRATE ER 30 MG TAB.ER.24H PO SCH (09:11)
--- NOTE | 2023-09-23 10:53 | P.PN ---
Subjective Progress Note Date: 09/23/23 Principal diagnosis: Thrombosed AV graft Patient is seen and examined today as a follow-up. Yesterday he underwent venogram, thrombectomy and balloon angioplasty with good outflow. Patient did undergo hemodialysis yesterday without any difficulty. He apparently had chest pain after undergoing hemodialysis and has been seen and evaluated by cardiology. Patient is currently sitting up in the chair denies any chest pain at this time. Objective - Vital Signs Vital signs: Vital Signs Temp 97.8 F 09/22/23 19:58 Pulse 69 09/23/23 04:11 Resp 18 09/23/23 04:11 BP 126/61 09/23/23 04:11 Pulse Ox 99 09/23/23 04:11 FiO2 Intake & Output 09/22/23 09/23/23 09/23/23 18:59 06:59 18:59 Intake Total 470 240 Output Total 2400 Balance -1930 240 Weight 99.79 kg 140 kg Intake: IV 70 Oral 240 Hemodialysis 400 Output: Hemodialysis 2400 Other: Voiding Method Toilet # Voids 1 - Exam General appearance: The patient is alert, oriented, appears in no acute distress. HET: Head is normocephalic and atraumatic. Pupils are equal and reactive. Neck: Supple. Heart: Regular. Lungs: Equal expansion, normal respiratory effort. Abdomen: Soft, nontender, nondistended. Extremities: Normal skin color and turgor. Left upper extremity graft with palpable thrill. Neurological: No focal deficits. - Labs CBC & Chem 7: 09/22/23 08:15 09/22/23 08:15 Labs: Abnormal Lab Results - Last 24 Hours (Table) 09/22/23 09/22/23 09/22/23 Range/Units 16:30 16:47 19:42 POC Glucose (mg/dL) 171 H (70-110) mg/dL Troponin I 0.055 H* 0.085 H* (0.000-0.034) ng/mL 09/22/23 09/23/23 Range/Units 20:14 04:09 POC Glucose (mg/dL) 269 H 58 L (70-110) mg/dL Troponin I (0.000-0.034) ng/mL Assessment and Plan Assessment: 1. Thrombosed left upper extremity AV loop graft status post thrombectomy and balloon angioplasty 2. End-stage renal disease requiring hemodialysis 3. Chest pain 4. Coronary artery disease 5. COPD 6. Diabetes mellitus 7. Hypertension and hyperlipidemia Plan: 1. Diet as tolerated 2. Hemodialysis per recommendations from nephrology 3. No need for anticoagulation from a vascular surgical standpoint 4. Continue with recommendations from cardiology 5. Patient is stable from a vascular surgical standpoint for discharge and may continue use of the left upper extremity loop graft. Thank you for this consultation, we will sign off at this time. Patient to follow-up with Dr. Amador in 1 to 2 weeks. The impression and plan of care has been dictated as directed. Dr. Tomlinson I performed a history and examination of this patient, discussed the same with the dictator. I agree with the dictator's note ,documented as a scribe. Any additional findings or plans will be noted.
--- NOTE | 2023-09-23 10:56 | P.NPCON ---
History of Present Illness - Reason for Consult end stage renal disease - History of Present Illness Patient is a 72-year-old male with end-stage renal disease maintained on hemodialysis on a Tuesday schedule. He was admitted to the hospital with thrombosed left arm AV graft. Patient is status post thrombectomy and angioplasty on 09/22/2023. Patient was dialyzed yesterday. He tolerated his treatment well. Patient complained of chest pain and is currently maintained on nitro drip which is being weaned down. No complaints of chest pain today or shortness of breath. No complaints of nausea vomiting or abdominal pain fever or chills. Review of Systems As per HPI Past Medical History Past Medical History: Coronary Artery Disease (CAD), Chest Pain / Angina, Heart Failure, COPD, Diabetes Mellitus, Hearing Disorder / Deafness, Hyperlipidemia, Hypertension, Myocardial Infarction ([place]), Osteoarthritis (OA), Renal Disease, Sleep Apnea/CPAP/BIPAP Additional Past Medical History / Comment(s): 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. Chronic renal failure, dialysis [facility] normally. Patient has insulin pump. Has CPAP, occasionally uses. Neuropathy in feet and hands. Poor hearing. Last Myocardial Infarction Date:: 03/04/14 History of Any Multi-Drug Resistant Organisms: None Reported Past Surgical History: Cholecystectomy, Heart Catheterization, Heart Catheterization With Stent, Orthopedic Surgery Additional Past Surgical History / Comment(s): Shoulder surgeyr, hemorrhoidectomy, cardiac stent in 06/2014, eye surgery, 3-4 cardiac stents. Past Anesthesia/Blood Transfusion Reactions: No Reported Reaction Additional Past Anesthesia/Blood Transfusion Reaction / Comment(s): Never had a blood transfusion. Date of Last Stent Placement:: 05/2014 Past Psychological History: Anxiety Smoking Status: Former smoker Past Alcohol Use History: None Reported Past Drug Use History: None Reported - Past Family History Father Family Medical History: Cancer Additional Family Medical History / Comment(s): Bladder cancer. Mother Family Medical History: Cancer, Diabetes Mellitus Additional Family Medical History / Comment(s): Pancreatic cancer. Medications and Allergies Home Medications Medication Instructions Recorded Confirmed Type Nitroglycerin Sl Tabs [Nitrostat] 0.4 mg SL Q5M PRN 03/03/14 09/22/23 History Ezetimibe [Zetia] 10 mg PO DAILY 05/19/16 09/22/23 History Ferrous Sulfate [Iron (65 MG 325 mg PO DAILY 05/19/16 09/22/23 History Elemental)] Insulin Aspart (For Pump) [NovoLOG 0.01 unit SQ-PUMP CONTINUOUS 05/28/18 09/22/23 History (For Pump)] Pramipexole [Mirapex] 0.5 mg PO BID PRN 05/02/19 09/22/23 History Ranolazine [Ranexa] 500 mg PO BID 05/02/19 09/22/23 History Albuterol Inhaler [Ventolin Hfa 2 puff INHALATION RT-Q4H PRN 08/10/21 09/22/23 History Inhaler] Aspirin EC [Ecotrin Low Dose] 81 mg PO DAILY 02/21/22 09/22/23 History Glucagon Emergency Kit 1 mg IM ONCE PRN 02/21/22 09/22/23 History Escitalopram [Lexapro] 10 mg PO DAILY 01/01/23 09/22/23 History ALPRAZolam [Xanax] 0.5 mg PO HS PRN 06/17/23 09/22/23 History Cholecalciferol [Vitamin D3 (25 50 mcg PO DAILY 06/17/23 09/22/23 History Mcg = 1000 Iu)] Isosorbide Mononitrate [Isosorbide 30 mg PO DAILY 06/17/23 09/22/23 History Mononitrate ER] Rosuvastatin [Crestor] 10 mg PO HS 06/17/23 09/22/23 History Tamsulosin [Flomax] 0.4 mg PO HS 06/17/23 09/22/23 History Cetirizine HCl [Zyrtec] 10 mg PO DAILY 09/22/23 09/22/23 History Folic Acid/Vit B Complex and C 0.8 mg PO DAILY 09/22/23 09/22/23 History [Nephro-Pooja Tablet] Torsemide [Demadex] 40 mg PO SUMOWEFR 09/22/23 09/22/23 History Allergies Allergy/AdvReac Type Severity Reaction Status Date / Time atorvastatin [From Lipitor] AdvReac Unknown Verified 09/22/23 07:42 baclofen AdvReac Unknown Verified 09/22/23 07:42 Physical Exam Vitals: Vital Signs Temp Pulse Pulse Resp BP BP Pulse Ox 09/23/23 04:11 69 18 126/61 99 09/23/23 01:38 64 18 09/23/23 00:04 64 18 127/60 100 09/22/23 20:58 72 18 148/68 99 09/22/23 20:43 149/68 09/22/23 20:28 150/68 09/22/23 20:12 149/68 09/22/23 20:00 71 18 09/22/23 19:58 97.8 F 71 18 152/67 99 09/22/23 18:00 69 18 179/78 100 09/22/23 17:45 67 19 148/65 98 09/22/23 17:39 64 18 09/22/23 17:30 66 18 153/68 98 09/22/23 17:23 97.5 F L 67 18 143/72 09/22/23 12:15 71 19 09/22/23 12:14 62 16 148/68 100 09/22/23 11:44 60 16 151/67 100 09/22/23 11:14 65 20 184/77 100 Intake and Output 09/22/23 09/23/23 09/23/23 22:59 06:59 14:59 Intake Total 640 Output Total 2400 Balance -1760 Intake: Oral 240 Hemodialysis 400 Output: Hemodialysis 2400 Other: # Voids 1 1 Weight 140 kg Patient is awake, comfortable, no acute distress Alert oriented x 3 Examination of the heart S1 and S2 Examination of the lungs bilateral breath sounds are heard Abdomen is soft nontender Examination of lower extremity shows no evidence of edema PHARMACIST TECHNICIAN exam grossly intact Results - Lab Results Most recent lab results Calcium 9.2 mg/dL (8.4-10.2) 09/22/23 08:15 09/22/23 08:15 09/22/23 08:15 Assessment and Plan Assessment: 1. End-stage renal disease on hemodialysis on a Tuesday schedule via left arm AV graft 2. Thrombosed left arm AV graft status post thrombectomy and balloon angioplasty 3. CKD mineral bone disorder 4. Chest pain currently maintained on nitro drip which is being weaned off. Currently with no chest pain. Patient is being followed by cardiology Plan: Hemodialysis in a.m. If patient is discharged he can follow-up as outpatient for hemodialysis at the dialysis unit.
[2023-09-23 11:20] LABS: Glucose,Whole Blood 145 mg/dL (70-110)
[2023-09-23 11:34] VITALS: TEMP 98.1
--- NOTE | 2023-09-23 11:46 | P.PN ---
Subjective HISTORY OF PRESENT ILLNESS: 72-year-old male known to Dr. Castle. 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 In March 2023 patient underwent a heart cath which showed IFR positive LAD disease and 50% distal left main disease and 50 to 60% RCA disease. Patient did not underwent any intervention at that time due to low dye threshold. Patient has been following up with Dr. Castle for stable anginal symptoms and has been manage medically. He is scheduled for a staged PCI next week. Today he was in hospital for an outpatient left upper extremity dialysis fistula repair with Dr. Tomlinson. He underwent angio jet thrombectomy and alteplase thrombolysis. Post Operatively in holding area patient started having substernal chest pressure-like symptoms. For this patient received 2 sublingual nitroglycerin and his symptoms got better. We performed an immediate ECG which did not show any new changes from his baseline ECG. It was normal sinus rhythm with, right bundle branch block, LAFB. We resumed his home medications which included aspirin and Imdur Ranexa. He is not any beta-narcisa due to low resting heart rate in 60s. He has frequent PVCs on telemetry. 09/23/2023 Patient examined this morning at bedside. Patient currently denies any chest pain or pressure. He denies any shortness of breath. Vital signs are stable. PHYSICAL EXAM: VITAL SIGNS: Reviewed. GENERAL: Well-developed in no acute distress. NECK: Supple. No JVD or thyromegaly LUNGS: Respirations even and unlabored. Lungs essentially clear to auscultation bilaterally. HEART: Regular rate and rhythm. S1 and S2 heard. EXTREMITIES: Normal range of motion. No clubbing or cyanosis. Peripheral pulses intact. No lower extremity edema ASSESSMENT: Substernal chest pain, after left AV fistula repair. Likely stable angina. 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 Castle No need for low dose Xarelto per vascular team Nurse practitioner note has been reviewed by physician. Signing provider agrees with the documented findings, assessment, and plan of care documented by HOME SCHOOL COORDINATOR as a scribe. Objective - Vital Signs Vital signs: Vital Signs Temp 98.1 F 09/23/23 08:00 Pulse 70 09/23/23 10:30 Resp 18 09/23/23 08:00 BP 122/57 09/23/23 10:30 Pulse Ox 96 09/23/23 08:00 FiO2 Intake & Output 09/22/23 09/23/23 09/23/23 18:59 06:59 18:59 Intake Total 470 240 Output Total 2400 Balance -1930 240 Weight 99.79 kg 140 kg Intake: IV 70 Oral 240 Hemodialysis 400 Output: Hemodialysis 2400 Other: Voiding Method Toilet Toilet # Voids 1 - Labs CBC & Chem 7: 09/22/23 08:15 09/22/23 08:15 Labs: Abnormal Lab Results - Last 24 Hours (Table) 09/22/23 09/22/23 09/22/23 Range/Units 16:30 16:47 19:42 POC Glucose (mg/dL) 171 H (70-110) mg/dL Troponin I 0.055 H* 0.085 H* (0.000-0.034) ng/mL 09/22/23 09/23/23 09/23/23 Range/Units 20:14 04:09 11:19 POC Glucose (mg/dL) 269 H 58 L 145 H (70-110) mg/dL Troponin I (0.000-0.034) ng/mL
[2023-09-23 12:01] LABS: HCT 33.7 % (39.0-53.0); HGB 11.6 gm/dL (13.0-17.5); MCHC 34.6 g/dL (31.0-37.0); MCV 92.4 fL (80.0-100.0); Mean Platelet Volume 8.8; Platelet Count 173 k/uL (150-450); RBC 3.64 m/uL (4.30-5.90); RDW 13.5 % (11.5-15.5); WBC 6.2 k/uL (3.8-10.6)
[2023-09-23 12:07] LABS: African American GFR (CKD) 15 (>60 ml/min/1.73 sqM); Anion Gap 12 mmol/L; Blood Urea Nitrogen 57 mg/dL (9-20); Carbon Dioxide 25 mmol/L (22-30); Chloride 97 mmol/L (98-107); Glucose 149 mg/dL (74-99); Non-African American GFR(CKD) 13 (>60 ml/min/1.73 sqM); Potassium 4.5 mmol/L (3.5-5.1); Sodium 134 mmol/L (137-145)
--- NOTE | 2023-09-23 12:17 | CA ---
Transthoracic Echo Report Name: Phan Luciano Age: 72 Gender: M : 1950 Exam Date: 09/22/2023 14:23 Exam Location: [facility] Ht (in): 68 Wt (lb): 220 Ordering Physician: Sumit Justice MD Attending/Referring Phys: Diesel Instructor Venecia Rodriguez RD Procedure CPT: Indications: Chest pain and Aortic stenosis Cardiac Hx: Technical Quality: Contrast 1: Total Dose (mL): Contrast 2: Total Dose (mL): MEASUREMENTS (Male / Female) Normal Values 2D ECHO LV Diastolic Diameter PLAX 5.2 cm 4.2 - 5.9 / 3.9 - 5.3 cm LV Systolic Diameter PLAX 3.5 cm IVS Diastolic Thickness 0.8 cm 0.6 - 1.0 / 0.6 - 0.9 cm LVPW Diastolic Thickness 0.9 cm 0.6 - 1.0 / 0.6 - 0.9 cm LV Relative Wall Thickness 0.3 LVOT Diameter 2.3 cm Aortic Root Diameter 3.4 cm LA Systolic Diameter LX 3.9 cm 3.0 - 4.0 / 2.7 - 3.8 cm LV Diastolic Volume MOD BP 103.9 cm??? 67 - 155 / 56 - 104 cm??? LV Systolic Volume MOD BP 38.0 cm??? 22 - 58 / 19 - 49 cm??? LV Ejection Fraction MOD BP 63.4 % >= 55 % LV Cardiac Index MOD BP 1776.6 cm???/min???m??? LV Diastolic Volume MOD 4C 110.3 cm??? LV Systolic Volume MOD 4C 38.9 cm??? LV Ejection Fraction MOD 4C 64.7 % LV Cardiac Index MOD 4C 1926.5 cm???/min???m??? LV Diastolic Length 4C 6.6 cm LV Systolic Length 4C 5.9 cm LV Diastolic Volume MOD 2C 95.5 cm??? LV Systolic Volume MOD 2C 37.0 cm??? LV Ejection Fraction MOD 2C 61.3 % LV Cardiac Index MOD 2C 1579.4 cm???/min???m??? LV Diastolic Length 2C 6.8 cm LV Systolic Length 2C 5.7 cm LA Volume 41.6 cm??? 18 - 58 / 22 - 52 cm??? LA Volume Index 18.7 cm???/m??? 16 - 28 cm???/m??? Ascending Aorta Diameter 2.9 cm DOPPLER AV Peak Velocity 255.1 cm/s AV Peak Gradient 26.0 mmHg AV Mean Velocity 194.2 cm/s AV Mean Gradient 15.8 mmHg AV Velocity Time Integral 56.5 cm LVOT Peak Velocity 63.4 cm/s LVOT Peak Gradient 1.6 mmHg LVOT Velocity Time Integral 24.5 cm LVOT Stroke Volume 101.8 cm??? LVOT Stroke Volume Index 47.9 ml/m??? LVOT Cardiac Index 2748.7 cm???/min???m??? AV Area Cont Eq vti 1.8 cm??? AV Area Cont Eq pk 1.0 cm??? MV Area PHT 3.3 cm??? Mitral E Point Velocity 84.0 cm/s Mitral A Point Velocity 129.7 cm/s Mitral E to A Ratio 0.6 MV Deceleration Time 229.5 ms PV Peak Velocity 80.7 cm/s PV Peak Gradient 2.6 mmHg FINDINGS Left Ventricle Left ventricular ejection fraction is estimated at 50-55%. Mild to moderate concentric left ventricular hypertrophy. Right Ventricle Normal right ventricular size. Unable to estimate Right ventricular systolic pressure. Right Atrium Normal right atrial size. Left Atrium Left atrial dilatation. Mitral Valve Mild mitral regurgitation. Moderate mitral annular calcifcation. Aortic Valve Mild aortic stenosis with a peak gradient of 26 mmHg and a mean gradient of 16 mmHg. Mild aortic sclerosis. Tricuspid Valve Trace tricuspid regurgitation. Pulmonic Valve Pulmonic valve not well visualized. Pericardium No pericardial effusion. Aorta Normal size aortic root and proximal ascending aorta. CONCLUSIONS LVEF 50-55% Moderate concentric LVH Grade 1 diastolic dysfunction Calcific thickening of aortic and mitral valve. Moderate mitral annular calcification Mild aortic stenosis, mean gradient 16 mmHg Previewed by: Dr Sumit Justice (Electronically Signed) Final Date: 23 September 2023 12:16
--- NOTE | 2023-09-23 13:39 | P.DS ---
Providers Date of admission: 09/22/23 09:04 Expected date of discharge: 09/23/23 Attending physician: Manolo Pang MD Consults: 09/22/23 08:33 Consult Physician Urgent Consulting Provider: Beronica Tomlinson Consult Reason/Comments: clotted av fistula Do you want consulting provider notified?: Already Contacted 09/22/23 09:15 Consult Physician Routine Consulting Provider: Saritha Cadena Consult Reason/Comments: esrd Do you want consulting provider notified?: Yes 09/22/23 11:10 Consult Physician Urgent Consulting Provider: Sumit Justice Consult Reason/Comments: CAD/chest pain Do you want consulting provider notified?: Already Contacted Primary care physician: Marlon Valentino Hospital Course: Discharge Diagnosis: Thrombosed left upper extremity AV graft s/p thrombectomy End-stage renal disease requiring hemodialysis Chest pain Elevated troponing, due to ESRD Compensated HFmrEF EF 45 to 50% Diabetes mellitus type 2 on insulin pump Hypertension Dyslipidemia Osteoarthritis JEN uses CPAP occasionally Neuropathy Hospital Course: Patient is a 72-year-old male with end-stage renal disease on hemodialysis Tuesday//Tuesday, diabetes mellitus on an insulin pump, COPD, diastolic congestive heart failure, and multiple other comorbid conditions who presented to the emergency department at the direction of dialysis due to his fistula not working. On arrival to the ER he was tachycardic with a pulse of 135. Initial laboratory analysis included CBC, coags, and CMP which were remarkable for BUN of 66 and creatinine of 4.16 consistent with his known end-stage renal disease. Vascular surgery was consulted. Patient was taken from the ER to the vascular lab and underwent thrombectomy of the fistula. He tolerated the procedure well. In recovery he started having 10 out of 10 chest pain. He was assessed by cardiology. Chest pain improved with 3 nitro. Patient is scheduled for outpatient cardiac cath due to angina. He typically follows with Dr. Castle. He did have recurrent chest pain and ultimately required a nitro drip. By the morning after thrombectomy his chest pain had resolved. He was resumed on his Imdur, his Ranexa dose was increased. He was able to ambulate without any recurrent chest pain. He was cleared by cardiology to proceed with his outpatient cath with Dr. Castle next week. He was cleared by vascular surgery for follow-up with Dr. Amador in 1 to 2 weeks. Follow-up: Ranexa increased to 1000 mg twice daily. Patient has outpatient cardiac cath scheduled with Dr. Castle. Follow-up with Dr. Amador in 1 to 2 weeks. Patient seen and examined at bedside. He is feeling better today no recurrent chest pain. No shortness of breath. No lightheaded or dizziness at baseline. Has not gotten up and walked yet. Vital signs reviewed and stable. General: Nontoxic, no distress, appears at stated age Cardiovascular: S1S2 reg, no murmur, positive posterior tibial pulse bilateral, Lungs: CTA bilateral, no rhonchi, no rales, no accessory muscle use Abdominal: Soft, nontender to palpation, no guarding, no appreciable organomegaly Ext: No gross muscle atrophy, no edema b/l lower extremities, no contractures Neuro: CN II-XI grossly intact, no focal neuro deficits Psych: Alert, oriented, appropriate affect A total of 35 minutes of time were spent preparing this complex discharge summary. Patient was discharged on 09/23/23. This dictation was prepared using sciencebite voice recognition software. Though every attempt is made to correct errors during dictation some may still exist. Patient Condition at Discharge: Stable Plan - Discharge Summary Discharge Rx Participant: No New Discharge Prescriptions: New Ranolazine [Ranexa] 1,000 mg PO Q12HR #60 tab Continue Nitroglycerin Sl Tabs [Nitrostat] 0.4 mg SL Q5M PRN PRN Reason: Chest Pain Ezetimibe [Zetia] 10 mg PO DAILY Ferrous Sulfate [Iron (65 MG Elemental)] 325 mg PO DAILY Insulin Aspart (For Pump) [NovoLOG (For Pump)] 0.01 unit SQ-PUMP CONTINUOUS Pramipexole [Mirapex] 0.5 mg PO BID PRN PRN Reason: Restless legs Albuterol Inhaler [Ventolin Hfa Inhaler] 2 puff INHALATION RT-Q4H PRN PRN Reason: Shortness Of Breath Glucagon Emergency Kit 1 mg IM ONCE PRN PRN Reason: Hypoglycemia Escitalopram [Lexapro] 10 mg PO DAILY Rosuvastatin [Crestor] 10 mg PO HS Cetirizine HCl [Zyrtec] 10 mg PO DAILY Aspirin EC [Ecotrin Low Dose] 81 mg PO DAILY Tamsulosin [Flomax] 0.4 mg PO HS ALPRAZolam [Xanax] 0.5 mg PO HS PRN PRN Reason: Severe Anxiety Isosorbide Mononitrate [Isosorbide Mononitrate ER] 30 mg PO DAILY Cholecalciferol [Vitamin D3 (25 Mcg = 1000 Iu)] 50 mcg PO DAILY Folic Acid/Vit B Complex and C [Nephro-Pooja Tablet] 0.8 mg PO DAILY Torsemide [Demadex] 40 mg PO SUMOWEFR Discontinued Ranolazine [Ranexa] 500 mg PO BID Discharge Medication List Nitroglycerin Sl Tabs [Nitrostat] 0.4 mg SL Q5M PRN 03/03/14 [History] Ezetimibe [Zetia] 10 mg PO DAILY 05/19/16 [History] Ferrous Sulfate [Iron (65 MG Elemental)] 325 mg PO DAILY 05/19/16 [History] Insulin Aspart (For Pump) [NovoLOG (For Pump)] 0.01 unit SQ-PUMP CONTINUOUS 05/28/18 [History] Pramipexole [Mirapex] 0.5 mg PO BID PRN 05/02/19 [History] Albuterol Inhaler [Ventolin Hfa Inhaler] 2 puff INHALATION RT-Q4H PRN 08/10/21 [History] Aspirin EC [Ecotrin Low Dose] 81 mg PO DAILY 02/21/22 [History] Glucagon Emergency Kit 1 mg IM ONCE PRN 02/21/22 [History] Escitalopram [Lexapro] 10 mg PO DAILY 01/01/23 [History] ALPRAZolam [Xanax] 0.5 mg PO HS PRN 06/17/23 [History] Cholecalciferol [Vitamin D3 (25 Mcg = 1000 Iu)] 50 mcg PO DAILY 06/17/23 [History] Isosorbide Mononitrate [Isosorbide Mononitrate ER] 30 mg PO DAILY 06/17/23 [History] Rosuvastatin [Crestor] 10 mg PO HS 06/17/23 [History] Tamsulosin [Flomax] 0.4 mg PO HS 06/17/23 [History] Cetirizine HCl [Zyrtec] 10 mg PO DAILY 09/22/23 [History] Folic Acid/Vit B Complex and C [Nephro-Pooja Tablet] 0.8 mg PO DAILY 09/22/23 [History] Torsemide [Demadex] 40 mg PO SUMOWEFR 09/22/23 [History] Ranolazine [Ranexa] 1,000 mg PO Q12HR #60 tab 09/23/23 [Rx] Follow up Appointment(s)/Referral(s): Shiraz Castle DO [STAFF PHYSICIAN] - 1 Week (as previously scheduled for cath) Kevin Amador DO [STAFF PHYSICIAN] - 2 Weeks Marlon Valentino DO [Primary Care Provider] - 1-2 days Activity/Diet/Wound Care/Special Instructions: Activity: As tolerated Diet: Consistent carb and renal Special Instructions: Return if chest pain worsens or reoccurs Discharge Disposition: HOME SELF-CARE
[2023-09-23 14:42] VITALS: BP 101/53
[2023-09-23 16:13] VITALS: PULSE 67
[2023-09-23] MEDS ORDERED: ATORVASTATIN 80 MG TAB PO SCH (21:00)
== END 2023-09-23 15:13 | disposition home or self-care (01) ==
LOC: EC 07:23 → 6NMEDSUR 09:04 → 3SCARD 10:06
PROVIDERS: ADMIT Internal Medicine; ATTEND Internal Medicine
DX: T82.868A Thrombosis due to vascular prosthetic devices, implants and grafts, initial encounter (principal); Y83.2 Surgical operation with anastomosis, bypass or graft as the cause of abnormal reaction of the patient, or of later complication, without mention of misadventure at the time of the procedure; Y82.8 Other medical devices associated with adverse incidents; I25.10 Atherosclerotic heart disease of native coronary artery without angina pectoris; E11.22 Type 2 diabetes mellitus with diabetic chronic kidney disease; N18.6 End stage renal disease; I13.2 Hypertensive heart and chronic kidney disease with heart failure and with stage 5 chronic kidney disease, or end stage renal disease; J44.9 Chronic obstructive pulmonary disease, unspecified; I25.2 Old myocardial infarction; E11.40 Type 2 diabetes mellitus with diabetic neuropathy, unspecified; F41.9 Anxiety disorder, unspecified; I50.22 Chronic systolic (congestive) heart failure; G47.33 Obstructive sleep apnea (adult) (pediatric); E66.9 Obesity, unspecified; Z83.3 Family history of diabetes mellitus; Z79.82 Long term (current) use of aspirin; Z87.891 Personal history of nicotine dependence; Z95.5 Presence of coronary angioplasty implant and graft; Z79.899 Other long term (current) drug therapy; Z99.89 Dependence on other enabling machines and devices; Z79.4 Long term (current) use of insulin; Z96.41 Presence of insulin pump (external) (internal); Z99.2 Dependence on renal dialysis
CPT/HCPCS: 99285; 36415; 93005; 93306; 76937; 36905; 80053; 80048; 84484 ×2; 85025; 85027; 85610; 85730; G0378 ×3; G0257; C1894; C1769 ×2; C1725; C1757; J2270 ×2; J2405; J2001; J2997; J2305; 86850; 86900; 86901; 86920; 90935

== ENCOUNTER 2023-10-03 11:26 | Day surgery (SDC) | payer MEDICARE ==
[~2023-10-03 11:26] MED LIST: ALPRAZolam 0.25 MG TAB PO PRN; ALPRAZolam 0.5 MG TAB PO PRN; NITROGLYCERIN SL TABS 0.4 MG TAB SUBLINGUAL PRN
[2023-10-03 11:54] LABS: Glucose,Whole Blood 188 mg/dL (70-110)
[2023-10-03] MEDS: SODIUM CHLORIDE 0.9% 1,000 ML in EMPTY BAG 1 BAG IV SCH (11:54)
[2023-10-03 12:01] VITALS: TEMP 97.5
[2023-10-03] MEDS ORDERED: VERAPAMIL 2.5 MG/ML 2 ML AMP ONE (12:16)
[2023-10-03] MEDS ORDERED: LIDOCAINE 1% INJ 10MG/ML (20 ML MDV) ONE (12:16)
[2023-10-03] MEDS ORDERED: fentaNYL (PF) 50 MCG/ML 2 ML AMP ONE (12:18)
[2023-10-03] MEDS ORDERED: HEPARIN SODIUM 1,000 UN/ML (10ML VL) ONE (12:19)
[2023-10-03] MEDS: MIDAZOLAM 2 MG/2 ML VIAL IVP ONE (12:47)
[2023-10-03] MEDS: fentaNYL (PF) 50 MCG/1 ML VIAL IVP ONE (12:47)
[2023-10-03] MEDS: LIDOCAINE 1% INJ 10MG/ML (20 ML MDV) SQ ONE (12:48)
[2023-10-03] MEDS: VERAPAMIL SYRINGE (5 MG/10 ML) INTRAARTER ONE (12:51)
[2023-10-03] MEDS: HEPARIN SODIUM 1,000 UN/ML (10ML VL) IV ONE (13:16)
[2023-10-03] MEDS: IOPAMIDOL-370 100ML BTL INJ ONE (13:46)
[2023-10-03] MEDS: SODIUM CHLORIDE 0.9% IV ONE (15:30)
--- NOTE | 2023-10-03 15:36 | P.CARDCATH ---
Description of Procedure: PROCEDURES PERFORMED: Left heart catheterization, bilateral coronary angiography, ultrasound guided arterial access, iFR of LAD, RCA, IVUS left main, LAD INDICATION: Worsening CP, prior abnormal iFR of LAD CONSENT:I have discussed the risks, benefits and alternative therapies for the above-mentioned procedure and for both sedation/analgesia as well as necessary blood product administration, if indicated, as they pertain to this patient. The patient has indicated understanding and acceptance of the risks and procedures discussed. PROCEDURE: After the risks, benefits and alternatives of the above mentioned procedure explained in detail with the patient, informed consent was obtained. Patient was taken to the catheterization lab and prepped and draped in usual fashion. Ultrasound guidance was used to assess for arterial access. 1% lidocaine was used to anesthetize the right ulnar artery. A 6-Niuean sheath was placed in the right ulnar artery using modified Seldinger technique and ultrasound guidance. The sheath was only able to be partially inserted with concern of ulnar stenosis. The 0.035 wire went in easily however unable to pass a 4 or 5 Fr catheter. Angiogram of the ulnar artery showed diffuse disease. Therefore the decision was made to place a right femoral sheath. A 6Fr sheath was placed in the right femoral artery using modified Seldinger technique and ultrasound. Left coronary angiography was performed with a 6-Niuean CLS 3.5 catheter and right coronary angiography was performed with a 5-Niuean JR5 catheter in various views. The decision was made to perform iFR of the LAD and RCA. Heparin was given. Through the 5F FR5 catheter a 0.014 wire was advanced into the aorta and normalized. There was dampening of the RCA with engagement of the 5Fr catheter and therefore normalized in the aorta. The 0.014 pressure wire was then advanced into the distal RCA. Attempted 3 times to back out the catheter as the pressure was dampened however popped out each time. Also had attempted engaging with an AL 0.75 guide which was unsuccessful. iFR while dampened was 0.98 however likely inaccurate due to dampening. Next the decision was made to perform iFR and IVUS of left main and LAD. A 6FR CLS 3.5 guide catheter was advanced into the left main. The 0.014 pressure wire was advanced into the left main and normalized. It was then advanced 1 cm distal to the mid LAD lesion. iFR was abnormal at 0.71. With pullback the iFR was normal just after the left main at 0.95. IVUS showed diffuse calcification with 60% left main stenosis with minimal luminal area of left main 4.4mm2. Additionally LAD stent had diffuse disease with underexpanded stent of the entire proximal to mid LAD of approximately 2.0mm and heavy calcification. Given patient would be best treated with CABG, procedure completed for surgical eval. The right ulnra sheath was removed and a TR band was placed with hemostasis achieved. A 6Fr Angioseal was placed with hemostasis achieevd. The patient tolerated the procedure well. Patient was transported back to the post catheterization holding area in stable condition. Conscious Sedation: Patient was monitored under the direct supervision of myself for conscious sedation using Versed and fentanyl for a total duration of 42 minutes HEMODYNAMICS: Aorta: 121/69 LV: 118/8, LVEDP 18 SELECTIVE CORONARY ARTERIOGRAPHY: LEFT MAIN: The left main is a large caliber vessel which trifurcates into the LAD, ramus and circumflex. There is a long area of 60% mid to distal left main stenosis. LEFT ANTERIOR DESCENDING CORONARY ARTERY: LAD is a large caliber vessel which wraps around to the apex. There is diffuse proximal to mid LAD stenosis. The proximal and mid LAD has a long stents with 40-50% in-stent stenosis and otherwise diffuse 50-60% stenosis up to the mid LAD. The mid to distal LAD has no significant stenosis. RAMUS INTERMEDIUS: Ramus is small caliber with mild tenderness to 20% stenosis. LEFT CIRCUMFLEX CORONARY ARTERY: Left circumflex is a moderate caliber vessel a proximal stent with 100% proximal circumflex stenosis. RIGHT CORONARY ARTERY: The right coronary artery is a moderate caliber vessel which gives off a PDA and PLV branch and is the dominant vessel. There is diffuse 40-50% proximal stenosis and a more focal 50-60% mid RCA stenosis. FINAL IMPRESSION: 1. CAD as described above including 60% mid to distal left main stenosis, 50- 60% mid LAD stenosis, 100% circumflex stenosis, 50-60% mid RCA stenosis 2. iFR abnormal of the LAD 3. Abnormal IVUS left main with minimal luminal area of 4.4mm2 4. Mildly elevated left sided filling pressures PLAN: 1. Aggressive risk factor modification per most recent ACC/AHA guidelines. 2. Given diffuse LAD disease with underexpanded stents and additional left main disease recommend CABG eval.
[2023-10-03 16:00] VITALS: RESP 14
[2023-10-03] MEDS: ASPIRIN 325 MG TAB PO ONE (16:12)
[2023-10-03 17:27] LABS: Glucose,Whole Blood 225 mg/dL (70-110)
[2023-10-03 18:17] LABS: Basophils % (A) 1 %; Eosinophils # (A) 0.2 k/uL (0-0.7); Eosinophils % (A) 4 %; HCT 30.4 % (39.0-53.0); HGB 10.5 gm/dL (13.0-17.5); Lymphocytes # (A) 1.5 k/uL (1.0-4.8); Lymphocytes % (A) 31 %; MCH 32.8 pg (25.0-35.0); MCHC 34.4 g/dL (31.0-37.0); MCV 95.3 fL (80.0-100.0); Mean Platelet Volume 7.9; Monocytes # (A) 0.4 k/uL (0-1.0); Monocytes % (A) 8 %; Neutrophils # (A) 2.5 k/uL (1.3-7.7); Neutrophils % (A) 54 %; Platelet Count 159 k/uL (150-450); RBC 3.19 m/uL (4.30-5.90); RDW 13.3 % (11.5-15.5); WBC 4.7 k/uL (3.8-10.6)
[2023-10-03 18:33] LABS: ALT 21 U/L (4-49); AST 23 U/L (17-59); African American GFR (CKD) 15 (>60 ml/min/1.73 sqM); Albumin 3.4 g/dL (3.5-5.0); Albumin/Globulin Ratio 1.1; Alkaline Phosphatase 120 U/L (38-126); Anion Gap 6 mmol/L; Blood Urea Nitrogen 43 mg/dL (9-20); Calcium 8.4 mg/dL (8.4-10.2); Carbon Dioxide 28 mmol/L (22-30); Chloride 101 mmol/L (98-107); Glucose 225 mg/dL (74-99); Non-African American GFR(CKD) 13 (>60 ml/min/1.73 sqM); Potassium 3.8 mmol/L (3.5-5.1); Sodium 135 mmol/L (137-145); Total Bilirubin 0.6 mg/dL (0.2-1.3); Total Protein 6.4 g/dL (6.3-8.2)
[2023-10-03 18:34] VITALS: BP 138/55; PULSE 61
[2023-10-03 18:37] LABS: Partial Thromboplastin Time 26.7 sec (22.0-30.0); Prothrombin Time 11.1 sec (10.0-12.5)
--- NOTE | 2023-10-03 18:37 | XR ---
EXAMINATION TYPE: XR chest 2V DATE OF EXAM: 10/03/2023 6:20 PM CLINICAL INDICATION:Male, 72 years old with history of PreOp Cardiac Surgery; [facility] COMPARISON: Chest radiographs from 03/25/2023 TECHNIQUE: XR chest 2V Frontal and lateral views of the chest. FINDINGS: Lungs/Pleura: There is no evidence of pleural effusion, focal consolidation, or pneumothorax. Pulmonary vascularity: Unremarkable. Heart/mediastinum: Cardiomediastinal silhouette is unremarkable. Musculoskeletal: No acute osseous pathology. Other findings: None IMPRESSION: No acute cardiopulmonary disease/process.
--- NOTE | 2023-10-03 18:58 | CT ---
EXAMINATION TYPE: CT chest wo con CT DLP: 562.1 mGycm, Automated exposure control for dose reduction was used. DATE OF EXAM: 10/03/2023 6:27 PM COMPARISON: None CLINICAL INDICATION:Male, 72 years old with history of PreOp Cardiac Surgery, assess; [facility], Pre-Op car diac surgery. TECHNIQUE: Multiple axial images were obtained through the chest. Sagittal and coronal reformats were created for review. Contrast used: mL of (None if empty) Oral contrast used: (None if empty) FINDINGS: LUNGS/ PLEURA: No focal consolidation, pneumothorax or pleural effusion. Right upper lobe calcified g ranuloma. AIRWAY: Patent and unremarkable. HEART: Heart is moderately enlarged for size is severe coronary artery calcifications and/or stent gr afts. MEDIASTINUM: No gross evidence of adenopathy. VASCULATURE: No aortic aneurysm. MUSCULOSKELETAL: No acute osseous abnormalities SOFT TISSUES/LYMPH NODES: Unremarkable. LOWER NECK: No significant findings. UPPER ABDOMEN: Gallbladder surgically absent. IMPRESSION: 1. No evidence for acute process. 2. Moderate cardiomegaly with severe coronary artery disease.
[2023-10-04 03:16] LABS: Chol/HDL Ratio 2.87 Ratio; LDL Cholesterol,Calculated 32.2 mg/dL (0.0-131.0)
[2023-10-04 04:31] LABS: Hepatitis A Antibody IgM Nonreactive; Hepatitis B Core IgM Nonreactive; Hepatitis B Surface Antigen Nonreactive; Hepatitis C IgG Antibody Nonreactive
--- NOTE | 2023-10-04 07:34 | P.GSCN ---
History of Present Illness Consult date: 10/03/23 Reason for Consult: Coronary artery disease with left main disease Requesting physician: Shiraz Castle History of present illness: This is a 72-year-old gentleman who follows on an outpatient basis with Dr. Marlon Valentino for his primary care and with Dr. Shiraz Castle for his cardiology care. He has a past medical history significant for hypertension, hyperlipidemia, insulin-dependent diabetes mellitus, coronary artery disease with previous PCI, chronic diastolic heart failure, mild cardiomyopathy with an ejection fraction of 50%, end-stage renal disease on hemo-dialysis Tuesdays, and Saturdays, history of myocardial infarction in 2006, COPD, obstructive sleep apnea with noncompliant use of his CPAP, neuropathy, remote history of smoking, quit in 1981, osteoarthritis and occasional constipation. 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 Since early September the patient has had complaints of chronic fatigue and episodes of chest pain. Denies any complaints of fever, chills, nausea, vomiting, diarrhea, hemoptysis, hematemesis, cough, headache, presyncope or syncope. According to the patient and his family he had an admission to the hospital in January 2023 with similar complaints of chest pain and feeling fatigued. At that time he had positive serial troponins x 3 and subsequently underwent a cardiac catheterization on March 11, [address] Castle. The cardiac catheterization at that time showed a 40 to 50% mid to distal left main stenosis, a 50 to 60% mid LAD stenosis, 100% stenosis to his circumflex coronary artery and a 50 to 60% mid RCA stenosis. During the heart catheterization it was IFR was completed which showed abnormal to the LAD mainly from the proximal and mid LAD, and IFR to his RCA was normal. During this time the patient started hemodialysis, with some improvement in his symptoms. Subsequently, due to his recent symptoms of feeling fatigued and having episodes of chest pain associated with shortness of breath he presented back to Dr. Castle, who recommended the patient undergo a cardiac catheterization which was completed today October 03, 2023. The cardiac catheterization demonstrated a 60% stenosis to his mid to distal left main coronary artery, a 50 to 60% mid left anterior descending coronary artery stenosis, 100% stenosis to his circumflex coronary artery, and a 50 to 60% mid RCA stenosis. iFR was completed to his left anterior descending coronary artery which was abnormal at 0.71. IVUS was completed to the left main coronary artery which showed abnormal with a minimal luminal area of 4.4 mm. Due to the findings on the cardiac catheterization a consult was placed to Dr. Frederic Freeman from cardiothoracic surgery for further evaluation and treatment recommendations. Review of Systems A 14 point review of systems was completed and was negative except as mentioned in HPI. Past Medical History Past Medical History: Blood Disorder, Coronary Artery Disease (CAD), Chest Pain / Angina, Heart Failure, COPD, Diabetes Mellitus, Dialysis, Hearing Disorder / Deafness, Hyperlipidemia, Hypertension, Myocardial Infarction (PA), Osteoarthritis (OA), Renal Disease, Sleep Apnea/CPAP/BIPAP Additional Past Medical History / Comment(s): 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. Chronic renal failure, dialysis [facility] normally. Patient has insulin pump. Has CPAP, occasionally uses. Neuropathy in feet and hands. Poor hearing. Last Myocardial Infarction Date:: 03/04/14 History of Any Multi-Drug Resistant Organisms: None Reported Past Surgical History: Cholecystectomy, Heart Catheterization, Heart Cath eterization With Stent, Orthopedic Surgery Additional Past Surgical History / Comment(s): Shoulder surgeyr, hemorrhoidectomy, cardiac stent in 06/2014, eye surgery, 3-4 cardiac stents. Past Anesthesia/Blood Transfusion Reactions: No Reported Reaction Additional Past Anesthesia/Blood Transfusion Reaction / Comm: Never had a blood transfusion. Date of Last Stent Placement:: 05/2014 Past Psychological History: No Psychological Hx Reported Smoking Status: Former smoker Past Alcohol Use History: None Reported Past Drug Use History: None Reported - Past Family History Father Family Medical History: Cancer Additional Family Medical History / Comment(s): Bladder cancer. Mother Family Medical History: Cancer, Diabetes Mellitus Additional Family Medical History / Comment(s): Pancreatic cancer. Medications and Allergies Home Medications Medication Instructions Recorded Confirmed Type Nitroglycerin Sl Tabs [Nitrostat] 0.4 mg SL Q5M PRN 03/03/14 10/03/23 History Ezetimibe [Zetia] 10 mg PO DAILY 05/19/16 10/03/23 History Ferrous Sulfate [Iron (65 MG 325 mg PO DAILY 05/19/16 10/03/23 History Elemental)] Insulin Aspart (For Pump) [NovoLOG 0.01 unit SQ-PUMP CONTINUOUS 05/28/18 10/03/23 History (For Pump)] Pramipexole [Mirapex] 0.5 mg PO BID PRN 05/02/19 10/03/23 History Albuterol Inhaler [Ventolin Hfa 2 puff INHALATION RT-Q4H PRN 08/10/21 10/03/23 History Inhaler] Aspirin EC [Ecotrin Low Dose] 81 mg PO DAILY 02/21/22 10/03/23 History Glucagon Emergency Kit 1 mg IM ONCE PRN 02/21/22 10/03/23 History Escitalopram [Lexapro] 10 mg PO DAILY 01/01/23 10/03/23 History ALPRAZolam [Xanax] 0.5 mg PO HS PRN 06/17/23 10/03/23 History Cholecalciferol [Vitamin D3 (25 50 mcg PO DAILY 06/17/23 10/03/23 History Mcg = 1000 Iu)] Isosorbide Mononitrate [Isosorbide 30 mg PO DAILY 06/17/23 10/03/23 History Mononitrate ER] Rosuvastatin [Crestor] 10 mg PO HS 06/17/23 10/03/23 History Tamsulosin [Flomax] 0.4 mg PO HS 06/17/23 10/03/23 History Cetirizine HCl [Zyrtec] 10 mg PO DAILY 09/22/23 10/03/23 History Folic Acid/Vit B Complex and C 0.8 mg PO DAILY 09/22/23 10/03/23 History [Nephro-Pooja Tablet] Torsemide [Demadex] 40 mg PO SUMOWEFR 09/22/23 10/03/23 History Ranolazine [Ranexa] 1,000 mg PO Q12HR #60 tab 09/23/23 10/03/23 Rx Calcium Carbonate [Tums] 1,000 mg PO AC-TID 09/28/23 10/03/23 History Allergies Allergy/AdvReac Type Severity Reaction Status Date / Time atorvastatin [From Lipitor] AdvReac Unknown Verified 10/03/23 12:39 baclofen AdvReac Unknown Verified 10/03/23 12:39 Surgical - Exam Vital Signs Temp Pulse Resp BP Pulse Ox 97.5 F L 71 18 157/61 99 10/03/23 11:53 10/03/23 11:53 10/03/23 11:53 10/03/23 11:53 10/03/23 11:53 - General well developed, well nourished, no distress, no pain, chronically ill, obese - Eyes PERRL, normal ocular movement, no pale, no icteric - ENT normal pinna, normal nares, normal mucosa, no hearing loss, no congestion - Neck Neck is supple, no lymphadenopathy. no masses, no bruits, trachea midline, no venous distension - Respiratory Lung sounds essentially clear throughout, diminished to his bilateral bases left greater than right. Respirations are symmetrical and nonlabored. No wheezes, rhonchi or crackles. - Cardiovascular Regular rhythm and rate. S1 and S2 present, negative for S3 or gallop. Positive systolic murmur 2/6 heard best to his left sternal border. - Abdomen Abdomen is soft, nontender and nondistended. Active bowel sounds present all 4 abdominal quadrants. No guarding or rigidity. No organomegaly appreciated. - Genitourinary Left arm AV fistula with good thrill and bruit. - Rectum Deferred - Integumentary Skin is warm and dry. No clubbing or cyanosis is present. no rash, no growths, no abnormal pigmentation - Neurologic Cranial nerves II through XII intact. No focal deficits. normal coordination, normal sensation - Musculoskeletal Moves all 4 extremities with equal strength bilateral. - Psychiatric oriented to time, oriented to person, oriented to place, speech is normal, memory intact Results - Labs 10/03/23 17:46 10/03/23 17:46 Abnormal Lab Results - Last 24 Hours (Table) 10/03/23 Range/Units 11:47 POC Glucose (mg/dL) 188 H (70-110) mg/dL Assessment and Plan Assessment: Coronary artery disease with left main disease, 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 Chronic diastolic heart failure Mild cardiomyopathy with an ejection fraction of 50% History of myocardial infarction Chronic kidney disease, on hemodialysis Tuesdays and Saturdays Hypertension Hyperlipidemia Insulin-dependent diabetes mellitus Chronic fatigue COPD Obstructive sleep apnea, noncompliant with CPAP use History of constipation Remote history of nicotine dependence, quit smoking 1982 Neuropathy Orthostatic hypotension Plan: The patient was seen and examined at his bedside in the extended stay unit, the patient's son and are present. His chart and diagnostics reviewed. His case was discussed in detail with Dr. Frederic Freeman from cardiothoracic surgery. Usual course of coronary artery bypass grafting surgery was discussed with the patient. Risks and benefits were discussed. Preoperative testing and preoperative teaching has been initiated. He will be scheduled with Dr. Freeman as an outpatient on Saturday October 07, 2023 at 5 PM. If the patient is deemed a surgical candidate we will calculate an STS risk or and complete a 5 m walk test. Continue to maximize medical management. Medical management of other co morbidities per primary care service and cardiology service. More recommendations to follow once his preoperative testing has been obtained and he is evaluated by the surgeon. Thank you Dr. Castle for this consult and we look forward to working with you in the care of this patient. I have personally seen and examined the patient, performed the documentation and the assessment and plan as written. Number of minutes spent on the visit: 30. ORLANDO Delarosa Attending Addendum: Agree with HOME THEATER INSTALLER above. This is a 72 year-old M with a hx of COPD, DM, HLD, HTN, JEN and known CAD diagnosed in December of 2022 who was treated medically at that time. Interval follow-up angiography was performed due to on- going symptoms. reveals progression of 3v CAD. We will obtain full pre-operative work-up and consider the patient for outpatient CABG. I spent 35 minutes reviewing the data and discussing plan of care with the team. Time with Patient: Greater than 30
--- NOTE | 2023-10-04 08:18 | US ---
EXAMINATION TYPE: US vein mapping BILAT DATE OF EXAM: 10/03/2023 4:34 PM COMPARISON: CLINICAL INDICATION: Male, 72 years old with history of PreOp Cardiac Surgery; Open heart. SIDE PERFORMED: Bilateral TECHNIQUE: Lower extremity saphenous vein is examined and measured utilizing real time linear array sonography. DUPLEX FINDINGS: Greater Saphenous: Color flow seen Lesser Saphenous: Color flow seen Measurements in mm: Right Greater Saphenous: Groin: 7.8 x 5.3 mm High Thigh: 5.4 x 4.1 mm Mid Thigh: 4.2 x 3.3 mm Above Knee: 5.3 x 2.9 mm Knee: 4.1 x 2.4 mm Below Knee: 3.2 x 2.7 mm Mid Calf: 4.0 x 2.9 mm At Ankle: 3.9 x 3.0 mm Left Greater Saphenous: Groin: 6.3 x 4.1 mm High Thigh: 4.3 x 3.5 mm Mid Thigh: 3.3 x 2.9 mm Above Knee: 2.9 x 2.0 mm Knee: 3.5 x 2.9 mm Below Knee: 3.2 x 3.0 mm Mid Calf: 2.0 x 2.4 mm At Ankle: 3.9 x 2.4 mm IMPRESSION: 1. Bilateral GSV measurements listed above. 2. Performing surgeon to determine viability as conduit.
--- NOTE | 2023-10-04 08:19 | US ---
EXAMINATION TYPE: US carotid duplex BILAT DATE OF EXAM: 10/03/2023 COMPARISON: NONE CLINICAL INDICATION: Male, 72 years old with history of Pre-Op Cardiac Surgery;Open heart TECHNIQUE: Carotid duplex ultrasound examination. Indirect Doppler criteria was utilized. FINDINGS: EXAM MEASUREMENTS: RIGHT: Peak Systolic Velocity (PSV) cm/sec ----- Right CCA: 147.0 ----- Right ICA: 119.4 ----- Right ECA: 145 ICA/CCA ratio: 0.8 RIGHT: End Diastole cm/sec ----- Right CCA: 0 ----- Right ICA: 16.9 ----- Right ECA: 0 LEFT: Peak Systolic Velocity (PSV) cm/sec ----- Left CCA: 127.3 ----- Left ICA: 129.2 ----- Left ECA: 160.8 ICA/CCA ratio: 1.0 LEFT: End Diastole cm/sec ----- Left CCA: 0 ----- Left ICA: 13 ----- Left ECA: 0 VERTEBRALS (direction of flow): Right Vertebral: Antegrade Left Vertebral: Antegrade Rhythm: Normal GREIGE GOODS EXAMINER NOTES: No significant stenosis seen IMPRESSION: No evidence for hemodynamically significant stenosis Criteria for Assigning % of Stenosis / Diameter reduction (Estimation based on the indirect measurements of the internal carotid artery velocities (ICA PSV). 1. Normal (no stenosis)=ICA PSV < 125 cm/s: ratio < 2.0: ICA EDV<40 cm/s. 2. Less than 50% stenosis=ICA PSV < 125 cm/s: ratio < 2.0: ICA EDV<40 cm/s. 3. 50 to 69% stenosis=ICA PSV of 125 to 230 cm/s: ration 2.0 ? 4.0: ICA EDV 40-100 cm/s. 4. Greater than 70% stenosis to near occlusion= ICA PSV > 230 cm/s: ratio > 4.0: ICA EDV > 100 cm/s. 5. Near occlusion= ICA PSV velocities may be low or undetectable: variable ratio and ICA EDV. 6. Total occlusion=unable to detect flow.
== END 2023-10-03 20:36 | disposition home or self-care (01) ==
LOC: CATHCVL 11:26 → 6NMEDSUR 13:57 → CATHCVL 20:36
PROVIDERS: ATTEND Internal Medicine
DX: I25.10 Atherosclerotic heart disease of native coronary artery without angina pectoris (principal); I13.2 Hypertensive heart and chronic kidney disease with heart failure and with stage 5 chronic kidney disease, or end stage renal disease; R06.02 Shortness of breath; R42 Dizziness and giddiness; E11.22 Type 2 diabetes mellitus with diabetic chronic kidney disease; I50.32 Chronic diastolic (congestive) heart failure; N18.6 End stage renal disease; M19.90 Unspecified osteoarthritis, unspecified site; J44.9 Chronic obstructive pulmonary disease, unspecified; I42.9 Cardiomyopathy, unspecified; I25.82 Chronic total occlusion of coronary artery; I95.1 Orthostatic hypotension; I25.2 Old myocardial infarction; G47.33 Obstructive sleep apnea (adult) (pediatric); E78.5 Hyperlipidemia, unspecified; E11.40 Type 2 diabetes mellitus with diabetic neuropathy, unspecified; Z79.4 Long term (current) use of insulin; Z87.891 Personal history of nicotine dependence; Z91.158 Patient's noncompliance with renal dialysis for other reason; Z95.1 Presence of aortocoronary bypass graft; Z95.5 Presence of coronary angioplasty implant and graft; Z99.2 Dependence on renal dialysis
CPT/HCPCS: 99152; 99153 ×2; 94150; 92978; 93458; 93799; 76937; 80061; 80053; 80074; 84443; 83735; 85025; 85610; 85730; 87070; 83036; 71046; 93970; 93880; 71250; C1769 ×5; C1760; C1887; C1894 ×2; C1753; J2250; J2001; J1644; Q9967; J3010

== ENCOUNTER → 2023-10-14 | Outpatient (CLI) | payer MEDICARE ==
--- NOTE | 2023-10-14 12:12 | P.PN ---
Progress Note - Text Progress Note Date: 10/14/23 5 meter walk test completed, patient did have some shortness of breath afterward but not limiting: #1 4.13 sec #2 4.08 sec #3 3.95 sec STS risk score was calculated and discussed with the patient and his .
[2023-10-14 12:50] LABS: Partial Thromboplastin Time 26.3 sec (22.0-30.0); Prothrombin Time 10.7 sec (10.0-12.5)
[2023-10-14 15:29] LABS: HCT 35.7 % (39.6-50.0); MCH 31.7 pg (27.0-32.0); MCHC 33.6 g/dL (32.0-37.0); MCV 94.2 FL (80.0-97.0); Mean Platelet Volume 10.7 FL (9.5-12.2); NRBC Per 100 WBC 0 X 10*3/uL (0.00-0.01); Platelet Count 171 X 10*3/uL (140-440); RBC 3.79 X 10*6/uL (4.40-5.60); RDW 12.9 % (11.5-14.5); WBC 4.97 X 10*3/uL (4.50-10.00)
[2023-10-14 16:20] LABS: ALT 16 U/L (10-49); AST 18 U/L (14-35); Albumin 4.4 g/dL (3.8-4.9); Albumin/Globulin Ratio 1.26 Ratio (1.60-3.17); Alkaline Phosphatase 125 U/L (41-126); BUN/Creat Ratio 9.14 Ratio (12.00-20.00); Calcium 9.7 mg/dL (8.7-10.3); Carbon Dioxide 29.8 mmol/L (21.6-31.8); Chloride 93 mmol/L (96-109); Globulin 3.5 g/dL (1.6-3.3); Glucose 192 mg/dL (70-110); Magnesium 2.2 mg/dL (1.5-2.4); Sodium 138 mmol/L (135-145); Total Bilirubin 0.4 mg/dL (0.3-1.2); Total Protein 7.9 g/dL (6.2-8.2)
[2023-10-14 19:53] LABS: Appearance,Urine Clear (Clear); Bilirubin,Urine Negative (Negative); Blood,Urine Negative (Negative); Color,Urine Yellow (Yellow); Ketones,Urine Negative (Negative); Nitrite,Urine Negative (Negative); Specific Gravity,Urine 1.019 (1.001-1.030)
[2023-10-14 20:02] LABS: Bacteria,Urine None Seen (None Seen)
== END | disposition home or self-care (01) ==
LOC: LABWHC1 10:49
PROVIDERS: ATTEND Thoracic Surgery (Cardiothoracic Vascular Surgery)
DX: I25.10 Atherosclerotic heart disease of native coronary artery without angina pectoris (principal)
CPT/HCPCS: 36415; 80053; 81001; 83735; 85027; 85610; 85730; 86850; 86900; 86901; 86920; 87086

== ENCOUNTER 2023-10-17 05:35 | Inpatient (IN) | payer MEDICARE ==
[2023-10-17] MEDS: SODIUM CHLORIDE 0.9% 1,000 ML IV ONE (05:41)
[2023-10-17 06:32] LABS: Glucose,Whole Blood 182 mg/dL (70-110)
[2023-10-17 06:51] LABS: Basophils # (A) 0.1 k/uL (0-0.2); Basophils % (A) 1 %; Eosinophils # (A) 0.2 k/uL (0-0.7); Eosinophils % (A) 3 %; HCT 34.3 % (39.0-53.0); HGB 11.8 gm/dL (13.0-17.5); Lymphocytes # (A) 1.7 k/uL (1.0-4.8); Lymphocytes % (A) 29 %; MCH 32.2 pg (25.0-35.0); MCHC 34.5 g/dL (31.0-37.0); MCV 93.5 fL (80.0-100.0); Mean Platelet Volume 7.9; Monocytes # (A) 0.5 k/uL (0-1.0); Monocytes % (A) 9 %; Neutrophils # (A) 3.1 k/uL (1.3-7.7); Neutrophils % (A) 55 %; Platelet Count 148 k/uL (150-450); RBC 3.67 m/uL (4.30-5.90); RDW 13.2 % (11.5-15.5); WBC 5.7 k/uL (3.8-10.6)
[2023-10-17] MEDS: METOPROLOL TARTRATE 12.5 MG TAB PO ONE (07:00)
[2023-10-17 07:09] LABS: ALT 21 U/L (4-49); AST 32 U/L (17-59); African American GFR (CKD) 16 (>60 ml/min/1.73 sqM); Albumin 4.2 g/dL (3.5-5.0); Alkaline Phosphatase 124 U/L (38-126); Anion Gap 14 mmol/L; Blood Urea Nitrogen 60 mg/dL (9-20); Calcium 8.9 mg/dL (8.4-10.2); Carbon Dioxide 27 mmol/L (22-30); Chloride 93 mmol/L (98-107); Glucose 189 mg/dL (74-99); Non-African American GFR(CKD) 14 (>60 ml/min/1.73 sqM); Potassium 4.3 mmol/L (3.5-5.1); Sodium 134 mmol/L (137-145); Total Bilirubin 0.9 mg/dL (0.2-1.3); Total Protein 7.8 g/dL (6.3-8.2)
[2023-10-17] MEDS ORDERED: fentaNYL (PF) 50 MCG/ML 50 ML VIAL ONE (08:31)
[2023-10-17] MEDS ORDERED: SUCCINYLCHOLINE CHLORIDE 200 MG/10 ML VIAL IV ONE (08:31)
[2023-10-17] MEDS ORDERED: PROPOFOL 10 MG/ML 20 ML VIAL IV ONE (08:31)
[2023-10-17] MEDS ORDERED: CALCIUM CHLORIDE 100 MG/ML 10 ML SYRINGE ONE (08:31)
[2023-10-17] MEDS ORDERED: HEPARIN SODIUM,PORCINE 5,000 UNIT/ML 1 ML VIAL ONE (08:31)
[2023-10-17] MEDS ORDERED: VASOPRESSIN 20 UNIT/ML 1 ML VIAL ONE (08:31)
[2023-10-17] MEDS ORDERED: WATER FOR INJECTION, STERILE 10 ML VIAL IV ONE (08:31)
[2023-10-17] MEDS ORDERED: HEPARIN SODIUM,PORCINE 10,000 UNIT/ML 1 ML VIAL ONE (08:31)
[2023-10-17] MEDS ORDERED: ePHEDrine 50 MG/ML 1 ML VIAL ONE (08:31)
[2023-10-17] MEDS ORDERED: ALBUMIN HUMAN 5% (25gm) 500 ML VIAL IVPB ONE (08:31)
[2023-10-17] MEDS ORDERED: PHENYLEPHRINE 10 MG/ML VIAL ONE (08:31)
[2023-10-17] MEDS ORDERED: VECURONIUM 10 MG VIAL IV ONE (08:31)
[2023-10-17] MEDS ORDERED: PROTAMINE SULFATE 10 MG/ML 25 ML VIAL IV ONE (08:31)
[2023-10-17] MEDS ORDERED: MIDAZOLAM HCL 10 MG/10 ML VIAL ONE (08:31)
[2023-10-17 08:58] LABS: ABG Base Excess 4.4 mmol/L; ABG Glucose Whole Blood 194 mg/dL (75-99); ABG HCO3 29 mmol/L (21-25); ABG Hematocrit 32 % (34.0-46.0); ABG Ionized Calcium 4.3 mg/dL (4.5-5.3); ABG Lactic Acid Whole Blood 0.8 mmol/L (0.5-1.6); ABG Oxygen Saturation 98.6 % (94-97); ABG PCO2 40 mmHg (35-45); ABG PH 7.46 (7.35-7.45); ABG PO2 132 mmHg (83-108); ABG Potassium Whole Blood 4.8 mmol/L (3.4-4.5); ABG Sodium Whole Blood 135 mmol/L (135-146)
[2023-10-17] MEDS: PAPAVERINE 360 MG in SODIUM CHLORIDE 0.9% 90 ML IV ONE (09:11)
[2023-10-17] MEDS: ceFAZolin 1,000 MG in SODIUM CHLORIDE 0.9% IRRIGATIO 1,000 ML IRRIGATION ONE (09:11)
[2023-10-17] MEDS: HEPARIN SODIUM,PORCINE (1 ML) 5,000 UNIT in SODIUM CHLORIDE 0.9% 500 ML 500 ML IV ONE (09:11)
[2023-10-17 10:05] LABS: ABG Base Excess 2.3 mmol/L; ABG Glucose Whole Blood 201 mg/dL (75-99); ABG HCO3 27 mmol/L (21-25); ABG Hematocrit 28 % (34.0-46.0); ABG Ionized Calcium 4.3 mg/dL (4.5-5.3); ABG Lactic Acid Whole Blood 1.2 mmol/L (0.5-1.6); ABG PCO2 38 mmHg (35-45); ABG PH 7.45 (7.35-7.45); ABG PO2 104 mmHg (83-108); ABG Potassium Whole Blood 4.3 mmol/L (3.4-4.5); ABG Sodium Whole Blood 136 mmol/L (135-146)
[2023-10-17 10:35] LABS: ABG Base Excess 2.3 mmol/L; ABG Glucose Whole Blood 186 mg/dL (75-99); ABG HCO3 26 mmol/L (21-25); ABG Hematocrit 28 % (34.0-46.0); ABG Ionized Calcium 4.3 mg/dL (4.5-5.3); ABG Lactic Acid Whole Blood 1.2 mmol/L (0.5-1.6); ABG Oxygen Saturation 99.2 % (94-97); ABG PCO2 38 mmHg (35-45); ABG PH 7.45 (7.35-7.45); ABG PO2 184 mmHg (83-108); ABG Potassium Whole Blood 3.6 mmol/L (3.4-4.5); ABG Sodium Whole Blood 137 mmol/L (135-146)
[2023-10-17 11:01] LABS: ABG Base Excess 2.7 mmol/L; ABG Glucose Whole Blood 175 mg/dL (75-99); ABG HCO3 26 mmol/L (21-25); ABG Hematocrit 29 % (34.0-46.0); ABG Ionized Calcium 4.3 mg/dL (4.5-5.3); ABG Lactic Acid Whole Blood 1.3 mmol/L (0.5-1.6); ABG Oxygen Saturation 99.2 % (94-97); ABG PCO2 35 mmHg (35-45); ABG PH 7.48 (7.35-7.45); ABG PO2 174 mmHg (83-108); ABG Potassium Whole Blood 3.4 mmol/L (3.4-4.5); ABG Sodium Whole Blood 137 mmol/L (135-146)
--- NOTE | 2023-10-17 12:17 | P.OP ---
Date of Procedure: 10/17/23 Preoperative Diagnosis: 2v CAD, Stable Angina s/p PCI ESRD on HD HTN HLD DM COPD Postoperative Diagnosis: Same Procedure(s) Performed: 1. Off pump coronary artery bypass grafting x 2. Left internal thoracic artery (in-situ) to left anterior descending coronary artery. Saphenous vein from aorta to ramus intermedius. 2. Coronary patch angioplasty to ramus intermedius 3. Left atrial appendage ligation using #35mm AtriClip 4. Endoscopic left greater saphenous vein harvest 5. Trans-esophageal echo Implants: #35 AtriClip Anesthesia: LASHANDAA Surgeon: Frederic Freeman General Scrap Worker #1: Sean Lowe General Scrap Worker #2: Bebo Jasmine Estimated Blood Loss (ml): 250 IV fluids (ml): 1,000 Pathology: other (endarterectomy plaque from ramus intermedius) Condition: critical Disposition: ICU Indications for Procedure: This patient is a 72 year-old M with the hx noted above who developed some worsening fatigue. Cardiac catheterization which was done twice over a 6 month period due to on-going symptoms revealed progression of his disease with significant left main coronary artery disease, proximal LAD disease and non significant disease in the RCA. His STS risk of morbidity and mortality was discussed with him and we recommended CABG. He was in agreement to proceed. Operative Findings: Heavily calcified ramus measuring approximately 1.25mm. Endarterectomy performed to enable long segment end to side anastomosis. SVG 2.25mm great conduit. SVG-Ramus Flow 6-10ml/min, Poor outflow. No competitive flow. P.I. 10 TIAN 2.0mm great conduit. LAD 2.0mm great target mid portion. TIAN-LAD flow 22ml/min, P.I. 3.9 Description of Procedure: The patient underwent central line, right radial arterial line, and left IJ Odem Pb catheter placement in the pre-operative suite by the anesthesia team. There was difficulty placing a central line on the right. The patient was then brought to the operating room and placed in the supine position. General anesthesia was induced and the patient was prepped from the chin to the ankles in the usual sterile fashion. A time-out was performed and antibiotics were given. A midline incision was made on the chest and carried down to bone. A median sternotomy was performed. Hemostasis on the bone was achieved using electrocautery. The left pleura was entered and the left internal thoracic artery was harvested in a skeletonized fashion. Simultaneously a physician supply assistant harvested the left greater saphenous vein in an endoscopic fashion. The patient was systemically heparinized and the BAIRON was transected and placed in a papaverine jacuzzi. A left sided chest tube was placed. The pericardium was incised in a reverse T-fashion and a pericardial cradle was created. The right pleura was opened. Stay sutures were placed. #35mm AtriClip was placed on the left atrial appendage. With ACT > 250, the octopus stabilizer was placed on the mid LAD which was a good target. An ateriorotomy was made and 2.0mm shunt inserted. An end to side anastomosis between the BAIRON and LAD was performed using a running 7-0 prolene. The shunt was removed prior to tieing down the suture. Next the ramus intermedius was stabilized using the octopus stabilizer. It was opened and there was significant plaque noted. A 1-1.5cm endarterectomy was performed. 1.0mm shunt was inserted. A long segment end to side anastomosis between the saphenous vein and ramus was fashioned using a running 7-0 prolene. The shunt was removed prior to tieing down the suture. Lastly, the heartstring was used to fasten the radial artery to the ascening aorta using a running 6-0 prolene. Graft flows were measured and they were excellent in the TIAN-LAD. There was poor outflow noted in the ramus but graft was patent which was not surprising. There was no bypassable target on the lateral wall. At this point, protamine was given and hemostasis was secured. A 32F chest tube and 19F fouzia were placed in the mediastinum and right pleura respectively. The pericardium was reapproximated partially and the sternum was closed with pioneer cables and layers of suture. The leg was closed in layers as well. The patient tolerated the procedure without any significant hypotension and was transferred to CVICU in critical condition on only nitro gtt.
[2023-10-17] MEDS ORDERED: hydrALAZINE HCL 20 MG/ML 1 ML VIAL IVP PRN (12:22)
[2023-10-17] MEDS ORDERED: Magnesium Replacement Protocol 1 EACH MISC MISCELLANE PRN (12:22)
[2023-10-17] MEDS ORDERED: IPRATROPIUM-ALBUTEROL 3 ML NEB INHALATION PRN (12:22)
[2023-10-17] MEDS ORDERED: DEXTROSE 5% IN WATER 100 ML with AMIODARONE 150 MG IV PRN (12:22)
[2023-10-17] MEDS ORDERED: DEXTROSE 50% SYRINGE 50 ML IVP PRN (12:22)
[2023-10-17] MEDS ORDERED: ONDANSETRON 4 MG/2 ML VIAL IVP PRN (12:22)
[2023-10-17] MEDS ORDERED: Potassium Replacement Protocol 1 EACH MISC MISCELLANE PRN (12:22)
[2023-10-17] MEDS ORDERED: METOCLOPRAMIDE 5 MG/ML 2 ML VIAL IVP PRN (12:22)
[2023-10-17] MEDS ORDERED: CALCIUM GLUCONATE IN NACL 2 GM in SALINE 1 100ML.BAG IVPB PRN (12:22)
[2023-10-17] MEDS ORDERED: BENZOCAINE/MENTHOL LOZENG 1 EACH LOZENGE MUCOUS MEM PRN (12:22)
[2023-10-17] MEDS: NITROGLYCERIN-D5W PMX 50 MG in DEXTROSE/WATER 1 250ML.BAG IV SCH (12:45)
[2023-10-17 12:54] LABS: Glucose,Whole Blood 125 mg/dL (70-110)
[2023-10-17] MEDS: AMIODARONE 360 MG in DEXTROSE 5% IN WATER 200 ML IV ONE (13:18)
[2023-10-17 13:28] LABS: ABG Base Excess 3.8 mmol/L; ABG HCO3 28 mmol/L (21-25); ABG PCO2 42 mmHg (35-45); ABG PH 7.43 (7.35-7.45); ABG PO2 277 mmHg (83-108); ABG TCO2 29 mmol/L (19-24); Allen Test Performed? Yes
[2023-10-17] MEDS: INSULIN REGULAR 100 UNIT in SODIUM CHLORIDE 0.9% 100 ML IV SCH (13:28)
[2023-10-17 13:31] LABS: ABG Oxygen Saturation 99.2 % (94-97)
[2023-10-17 13:35] LABS: INR 1.1 (<1.2); Partial Thromboplastin Time 23.5 sec (22.0-30.0); Prothrombin Time 12.2 sec (10.0-12.5)
[2023-10-17 13:38] LABS: Ionized Calcium 4.4 mg/dL (4.5-5.3)
[2023-10-17 13:41] LABS: Basophils % (A) 0 %; Eosinophils # (A) 0.1 k/uL (0-0.7); Eosinophils % (A) 2 %; HCT 25.6 % (39.0-53.0); Lymphocytes # (A) 1.1 k/uL (1.0-4.8); Lymphocytes % (A) 21 %; MCH 32.5 pg (25.0-35.0); MCHC 34.8 g/dL (31.0-37.0); MCV 93.5 fL (80.0-100.0); Mean Platelet Volume 8.4; Monocytes # (A) 0.2 k/uL (0-1.0); Monocytes % (A) 4 %; Neutrophils # (A) 3.7 k/uL (1.3-7.7); Neutrophils % (A) 73 %; Platelet Count 100 k/uL (150-450); RBC 2.74 m/uL (4.30-5.90); RDW 13.1 % (11.5-15.5); WBC 5.1 k/uL (3.8-10.6)
[2023-10-17 13:44] LABS: HGB 8.9 gm/dL (13.0-17.5)
[2023-10-17] MEDS: CLEVIDIPINE BUTYRATE 25 MG in EMPTY BAG 1 BAG IV SCH (13:44)
[2023-10-17] MEDS: LACTATED RINGERS 1,000 ML IV SCH (13:45)
--- NOTE | 2023-10-17 13:45 | XR ---
EXAMINATION TYPE: XR chest 1V portable DATE OF EXAM: 10/17/2023 1:22 PM CLINICAL INDICATION:Male, 72 years old with history of Post Operative Cardiac Surgery; COMPARISON: Chest radiographs from 10/03/2023. TECHNIQUE: XR chest 1V portable Frontal view of the chest. FINDINGS: Lungs/Pleura: There is no evidence of pleural effusion, focal consolidation, or pneumothorax. Pulmonary vascularity: Pulmonary vascular congestion. Heart/mediastinum: Cardiomediastinal silhouette is unremarkable. Atherosclerotic calcifications are seen in the aorta. Left atrial appendage occlusion device is present. Musculoskeletal: No acute osseous pathology. Lines/Tubes: Endotracheal tube with distal tip 4.0 cm above the valentina. Nasogastric tube with its distal tip and side-port projecting under the diaphragm. There is a Yolo-Pb catheter with tip projecting over the spine. IMPRESSION: Postsurgical changes with mild pulmonary edema.
[2023-10-17 13:48] LABS: ALT 51 U/L (4-49); AST 162 U/L (17-59); African American GFR (CKD) 16 (>60 ml/min/1.73 sqM); Albumin 3.6 g/dL (3.5-5.0); Alkaline Phosphatase 100 U/L (38-126); Anion Gap 12 mmol/L; Blood Urea Nitrogen 57 mg/dL (9-20); Calcium 8.2 mg/dL (8.4-10.2); Carbon Dioxide 25 mmol/L (22-30); Chloride 100 mmol/L (98-107); Glucose 121 mg/dL (74-99); Magnesium 1.9 mg/dL (1.6-2.3); Non-African American GFR(CKD) 14 (>60 ml/min/1.73 sqM); Potassium 3.6 mmol/L (3.5-5.1); Sodium 137 mmol/L (137-145); Total Bilirubin 0.7 mg/dL (0.2-1.3); Total Protein 6.2 g/dL (6.3-8.2)
[2023-10-17] MEDS: CALCIUM CARBONATE 500 MG CHEWABLE PO SCH (13:49)
[2023-10-17 14:01] LABS: Glucose,Whole Blood 99 mg/dL (70-110)
[2023-10-17] MEDS: ALBUMIN HUMAN 5% 250 ML in EMPTY BAG 1 BAG IVPB PRN (14:10)
[2023-10-17] MEDS: CALCIUM GLUCONATE IN NACL 1 GM in SALINE 1 100ML.BAG IVPB ONE (14:10)
[2023-10-17] MEDS: POTASSIUM CHLORIDE 10 MEQ in WATER FOR INJECTION 1 100ML.BAG IVPB SCH (14:30)
[2023-10-17 14:53] LABS: Glucose,Whole Blood 84 mg/dL (70-110)
[2023-10-17] MEDS: IPRATROPIUM-ALBUTEROL 3 ML NEB INHALATION SCH ×2 (15:24→19:31)
[2023-10-17 15:29] LABS: Glucose,Whole Blood 88 mg/dL (70-110)
[2023-10-17 15:47] LABS: Glucose,Whole Blood 100 mg/dL (70-110)
[2023-10-17 15:54] LABS: Basophils % (A) 0 %; Eosinophils # (A) 0.1 k/uL (0-0.7); Eosinophils % (A) 1 %; HCT 25.4 % (39.0-53.0); HGB 8.8 gm/dL (13.0-17.5); Lymphocytes # (A) 0.9 k/uL (1.0-4.8); Lymphocytes % (A) 18 %; MCH 32.5 pg (25.0-35.0); MCHC 34.8 g/dL (31.0-37.0); MCV 93.4 fL (80.0-100.0); Mean Platelet Volume 9.3; Monocytes # (A) 0.5 k/uL (0-1.0); Monocytes % (A) 10 %; Neutrophils # (A) 3.5 k/uL (1.3-7.7); Neutrophils % (A) 68 %; Platelet Count 106 k/uL (150-450); RBC 2.72 m/uL (4.30-5.90); RDW 13.2 % (11.5-15.5); WBC 5.1 k/uL (3.8-10.6)
--- NOTE | 2023-10-17 16:21 | P.CNPUL ---
History of Present Illness Consult date: 10/17/23 History of present illness: This is a 72-year-old male patient was being seen in the intensive care unit following his cardiac surgery. The patient i has a known history of coronary artery disease, he has undergone previous PCI, chronic diastolic heart failure with a preserved ejection fraction of 50%, end-stage renal disease on hemodialysis 3 times a week, TTS, insulin-dependent diabetes mellitus, hypertension hyperlipidemia and previous history of obstructive sleep apnea and remote history of smoking and the patient quit smoking back in 1981. I have also seen him in the hospital for previous episodes of staphylococcal sepsis. This was related to a permacath infection. The patient has been having episodes of chest pain started in early September 2023. At that time, his troponins were positive and a catheterization was done on 10/03/2023 that showed 60% stenosis in the mid to distal left main, 50 to 60% stenosis of the mid LAD, 100% stenosis of the circumflex and a 50 to 60% stenosis of the mid RCA. At that point, the patient was advised to undergo cardiac revascularization surgery. The patient underwent a off-pump cardiac bypass x 2 with TIAN to LAD and saphenous vein graft to ramus intermedius. Currently, the patient is in the intensive care unit, intubated on mechanical ventilator. He is a bit restless on propofol which is being weaned off. The patient is intubated, assist-control mode rate of 16, tidal volume of 450, FiO2 has been weaned down to 35% with a PEEP of 5. His chest x-ray in the ICU showed increased pulm vascular marking and congestion. Cardiomegaly. Postthoracotomy changes. The patient has an orotracheal tube was in a good location. The patient also has a Galva-Pb catheter in place. As far as tubes, the patient has a right and a left pleural chest tube and mediastinal chest tube. No evidence of any pneumothorax. The blood gases showed a pH of 7.43 with a pCO2 of 42 and pO2 of 277 and this was on 100% FiO2. His current cardiac output is 5.4 with an index of 2.5. PA pressures of 58/25 mmHg. He is on nitroglycerin drip running at 5 mcg/kg/min. He is also on amiodarone drip running at 1 mg/min. His cardiac rhythm is sinus with occasional pacing. Pulse ox is 98%. Arousable and somewhat rested yeah restless yet he is following simple commands. Urine output is minimal as the patient has end-stage renal disease. Review of Systems ROS unobtainable: due to endotracheal tube Past Medical History Past Medical History: Blood Disorder, Coronary Artery Disease (CAD), Chest Pain / Angina, Heart Failure, COPD, Diabetes Mellitus, Dialysis, Hearing Disorder / Deafness, Hyperlipidemia, Hypertension, Myocardial Infarction (MS), Osteoarthritis (OA), Renal Disease, Sleep Apnea/CPAP/BIPAP Additional Past Medical History / Comment(s): has insulin pump and contiunuous blood glucose monitor,fell at home on Tuesday10-10-23"got dizzy"-no injury,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. Chronic renal failure, dialysis [facility] normally. Patient has insulin pump. Has CPAP, occasionally uses. Neuropathy in feet and hands. Poor hearing. Last Myocardial Infarction Date:: History of Any Multi-Drug Resistant Organisms: None Reported Past Surgical History: Cholecystectomy, Heart Catheterization, Heart Catheterization With Stent, Orthopedic Surgery Additional Past Surgical History / Comment(s): Shoulder surgery-no hardware, hemorrhoidectomy, eye surgery,4 cardiac stents,AV fistula left forearm Past Anesthesia/Blood Transfusion Reactions: No Reported Reaction Additional Past Anesthesia/Blood Transfusion Reaction / Comment(s): Never had a blood transfusion. Date of Last Stent Placement:: Smoking Status: Former smoker - Past Family History Father Family Medical History: Cancer Additional Family Medical History / Comment(s): Bladder cancer. Mother Family Medical History: Cancer, Diabetes Mellitus Additional Family Medical History / Comment(s): Pancreatic cancer. Medications and Allergies Home Medications Medication Instructions Recorded Confirmed Type Nitroglycerin Sl Tabs [Nitrostat] 0.4 mg SL Q5M PRN 03/03/14 10/17/23 History Ezetimibe [Zetia] 10 mg PO QAM 05/19/16 10/17/23 History Ferrous Sulfate [Iron (65 MG 325 mg PO DAILY 05/19/16 10/17/23 History Elemental)] Insulin Aspart (For Pump) [NovoLOG 0.01 unit SQ-PUMP CONTINUOUS 05/28/18 10/17/23 History (For Pump)] Pramipexole [Mirapex] 0.5 mg PO BID PRN 05/02/19 10/17/23 History Albuterol Inhaler [Ventolin Hfa 2 puff INHALATION RT-Q4H PRN 08/10/21 10/17/23 History Inhaler] Aspirin EC [Ecotrin Low Dose] 81 mg PO DAILY 02/21/22 10/17/23 History Glucagon Emergency Kit 1 mg IM ONCE PRN 02/21/22 10/17/23 History Escitalopram [Lexapro] 10 mg PO DAILY 01/01/23 10/17/23 History ALPRAZolam [Xanax] 0.5 mg PO HS PRN 06/17/23 10/17/23 History Cholecalciferol [Vitamin D3 (25 50 mcg PO DAILY 06/17/23 10/17/23 History Mcg = 1000 Iu)] Isosorbide Mononitrate [Isosorbide 30 mg PO DAILY 06/17/23 10/17/23 History Mononitrate ER] Rosuvastatin [Crestor] 10 mg PO HS 06/17/23 10/17/23 History Tamsulosin [Flomax] 0.4 mg PO HS 06/17/23 10/17/23 History Cetirizine HCl [Zyrtec] 10 mg PO DAILY 09/22/23 10/17/23 History Folic Acid/Vit B Complex and C 0.8 mg PO DAILY 09/22/23 10/17/23 History [Nephro-Pooja Tablet] Torsemide [Demadex] 40 mg PO SUMOWEFR 09/22/23 10/17/23 History Calcium Carbonate [Tums] 1,000 mg PO AC-TID 09/28/23 10/17/23 History Ranolazine [Ranexa] 500 mg PO Q12HR 10/14/23 10/17/23 History Allergies Allergy/AdvReac Type Severity Reaction Status Date / Time atorvastatin [From Lipitor] AdvReac jt and Verified 10/17/23 06:33 muscle pain baclofen AdvReac caused a Verified 10/17/23 06:33 fall Physical Exam Vitals: Vital Signs Temp Pulse Pulse Resp BP BP BP 10/17/23 16:00 97.5 F L 56 L 18 10/17/23 15:45 59 L 21 10/17/23 15:36 60 10/17/23 15:30 61 16 10/17/23 15:24 57 L 10/17/23 15:20 03/18/24 15:15 62 22 10/17/23 15:00 62 21 10/17/23 14:45 62 19 10/17/23 14:39 10/17/23 14:30 58 L 21 10/17/23 14:15 60 18 10/17/23 14:00 61 18 110/35 10/17/23 13:45 96.6 F L 63 18 110/35 10/17/23 13:30 64 19 110/35 10/17/23 13:15 63 22 10/17/23 13:10 96.1 F L 62 18 10/17/23 13:05 62 19 110/35 10/17/23 13:00 61 20 110/35 10/17/23 12:50 60 17 10/17/23 12:49 10/17/23 12:47 10/17/23 12:46 60 10/17/23 05:55 98 F 75 16 122/58 140/57 Pulse Ox FiO2 10/17/23 16:00 98 35 10/17/23 15:45 98 10/17/23 15:36 10/17/23 15:30 100 35 10/17/23 15:24 10/17/23 15:20 35 10/17/23 15:15 100 10/17/23 15:00 100 10/17/23 14:45 100 50 10/17/23 14:39 50 10/17/23 14:30 100 10/17/23 14:15 100 10/17/23 14:00 100 10/17/23 13:45 100 70 10/17/23 13:30 100 70 10/17/23 13:15 100 100 10/17/23 13:10 100 10/17/23 13:05 100 10/17/23 13:00 10/17/23 12:50 100 10/17/23 12:49 100 10/17/23 12:47 100 10/17/23 12:46 10/17/23 05:55 99 Intake and Output 10/17/23 10/17/23 10/17/23 06:59 14:59 22:59 Intake Total 413.946 169.501 Output Total 590 35 Balance -176.054 134.501 Intake: IV 191 69 .9NS Cardiac Output 20 10 .9NS Pressure Bag 18 9 Lactated Ringers 1,000 ml 100 50 @ 50 mls/hr IV .Q20H [facility] Rx#:[id number] Intake, IV Titration 222.946 100.501 Amount Calcium Gluconate in NaCl 100 1 gm In Saline 1 100ml. bag @ 100 mls/hr IVPB ONCE ONE Rx#:[id number] Insulin Regular 100 unit 6.228 In Sodium Chloride 0.9% 100 ml @ Per Protocol IV .Q0M [facility] Rx#:[id number] Potassium Chloride 10 meq 100 100 In Water For Injection 1 100ml.bag @ 100 mls/hr IVPB Q1H [facility] Rx#: [id number] propofoL 1,000 mg In 16.718 0.501 Empty Bag 1 bag @ Titrate IV .Q0M [facility] Rx#: [id number] Output: Chest Tube Drainage 70 15 Left adn Right Chest Tube 45 15 Mediastinal Chest Tube 25 0 Urine 120 20 Estimated Blood Loss 400 Other: Weight 100.1 kg ABP, PAP, CO, CI - Last 8 Hours Arterial Blood Pressure 112/37 Arterial Blood Pressure 118/40 Arterial Blood Pressure 106/37 Arterial Blood Pressure 110/38 Arterial Blood Pressure 115/38 Arterial Blood Pressure 101/35 Arterial Blood Pressure 96/35 Arterial Blood Pressure 199/193 Arterial Blood Pressure 113/38 Arterial Blood Pressure 126/39 Arterial Blood Pressure 126/39 Arterial Blood Pressure 127/41 Arterial Blood Pressure 125/40 Arterial Blood Pressure 132/39 Arterial Blood Pressure 128/40 Pulmonary Artery Pressure 50/22 Pulmonary Artery Pressure 47/19 Pulmonary Artery Pressure 48/21 Pulmonary Artery Pressure 43/19 Pulmonary Artery Pressure 43/19 Pulmonary Artery Pressure 45/19 Pulmonary Artery Pressure 39/17 Pulmonary Artery Pressure 40/17 Pulmonary Artery Pressure 48/16 Pulmonary Artery Pressure 43/18 Pulmonary Artery Pressure 43/18 Pulmonary Artery Pressure 42/17 Pulmonary Artery Pressure 45/16 Cardiac Output 5.4 Cardiac Output 5.9 Cardiac Output 5.9 Cardiac Output 5.9 Cardiac Output 5.9 Cardiac Output 5.5 Cardiac Output 5.5 Cardiac Index 2.5 Cardiac Index 2.5 Cardiac Index 2.8 Cardiac Index 2.8 Cardiac Index 2.8 Cardiac Index 2.8 Cardiac Index 2.6 Cardiac Index 2.6 Patient is currently being weaned off the propofol. Calm and comfortable, intubated on mechanical ventilator, orogastric and orotracheal tube are both in place. Head exam was generally normal. There was no scleral icterus or corneal arcus. Mucous membranes were moist. Neck was supple and without jugular venous distension, thyromegaly, or carotid bruits. Carotids were easily palpable bilaterally. There was no adenopathy. The patient has a left IJ Galva-Pb catheter in place. Orotracheal tube are both in place. Lung sounds are diminished. Breath sounds are equal and symmetrical bilaterally. Heart sounds are regular, positive S1-S2, the patient has a mediastinal, right pleural and left pleural chest tube. Output from the pleural chest tubes have been in the order of 100 cc from the mediastinal chest tube output is in order of 30 cc since arrival from the operating room. Abdominal exam revealed normal bowel sounds. The abdomen was soft, non-tender, and without masses, organomegaly, or appreciable enlargement of the abdominal aorta. Examination of the extremities revealed easily palpable radial, femoral and pedal pulses. There was no cyanosis, clubbing or edema. Examination of the skin revealed no evidence of significant rashes, suspicious appearing nevi or other concerning lesions. Neurologically, moving all 4 extremities. Drowsy and sleepy still. Pupils are equal reactive to light. No focal neurological deficits. Moving all 4 extremities without any limitation. Results - Laboratory Findings CBC and BMP: 10/17/23 15:46 10/17/23 12:44 ABG ABG pH 7.43 (7.35-7.45) 10/17/23 13:26 ABG pCO2 42 mmHg (35-45) 10/17/23 13:26 ABG pO2 277 mmHg (83-108) H 10/17/23 13:26 ABG O2 Saturation 99.2 % (94-97) H 10/17/23 13:26 PT/INR, D-dimer PT 12.2 sec (10.0-12.5) 10/17/23 12:44 INR 1.1 (<1.2) 10/17/23 12:44 Abnormal lab findings: Abnormal Labs 10/14/23 10/17/23 10/17/23 11:31 06:05 06:05 RBC 3.67 L Hgb 11.8 L Hct 34.3 L Plt Count 148 L Lymphocytes # ABG pH ABG pO2 ABG HCO3 ABG Total CO2 ABG O2 Saturation ABG Hematocrit ABG Potassium ABG Ionized Calcium ABG Glucose Hemoglobin Sodium 134 L Chloride 93 L BUN 60 H Creatinine 4.08 H Glucose 189 H POC Glucose (mg/dL) Calcium Ionized Calcium Teresa AST ALT Total Protein Arterial Blood Potassium Arterial Blood Glucose Crossmatch See Detail 10/17/23 10/17/23 10/17/23 06:21 08:57 10:04 RBC Hgb Hct Plt Count Lymphocytes # ABG pH 7.46 H ABG pO2 132 H ABG HCO3 29 H 27 H ABG Total CO2 ABG O2 Saturation 98.6 H 98.0 H ABG Hematocrit 32 L 28 L ABG Potassium 4.8 H ABG Ionized Calcium 4.3 L 4.3 L ABG Glucose 194 H 201 H Hemoglobin 10.3 L 9.0 L Sodium Chloride BUN Creatinine Glucose POC Glucose (mg/dL) 182 H Calcium Ionized Calcium Teresa AST ALT Total Protein Arterial Blood Potassium 4.8 H Arterial Blood Glucose 194 H 201 H Crossmatch 10/17/23 10/17/23 10/17/23 10:34 11:00 12:44 RBC 2.74 L Hgb 8.9 L D Hct 25.6 L Plt Count 100 L Lymphocytes # ABG pH 7.48 H ABG pO2 184 H 174 H ABG HCO3 26 H 26 H ABG Total CO2 ABG O2 Saturation 99.2 H 99.2 H ABG Hematocrit 28 L 29 L ABG Potassium ABG Ionized Calcium 4.3 L 4.3 L ABG Glucose 186 H 175 H Hemoglobin 9.2 L 9.3 L Sodium Chloride BUN Creatinine Glucose POC Glucose (mg/dL) Calcium Ionized Calcium Teresa AST ALT Total Protein Arterial Blood Potassium Arterial Blood Glucose 186 H 175 H Crossmatch 10/17/23 10/17/23 10/17/23 12:44 12:44 13:26 RBC Hgb Hct Plt Count Lymphocytes # ABG pH ABG pO2 277 H ABG HCO3 28 H ABG Total CO2 29 H ABG O2 Saturation 99.2 H ABG Hematocrit ABG Potassium ABG Ionized Calcium ABG Glucose Hemoglobin Sodium Chloride BUN 57 H Creatinine 3.97 H Glucose 121 H POC Glucose (mg/dL) 125 H Calcium 8.2 L Ionized Calcium Teresa 4.4 L AST 162 H ALT 51 H Total Protein 6.2 L Arterial Blood Potassium Arterial Blood Glucose Crossmatch 10/17/23 15:46 RBC 2.72 L Hgb 8.8 L Hct 25.4 L Plt Count 106 L Lymphocytes # 0.9 L ABG pH ABG pO2 ABG HCO3 ABG Total CO2 ABG O2 Saturation ABG Hematocrit ABG Potassium ABG Ionized Calcium ABG Glucose Hemoglobin Sodium Chloride BUN Creatinine Glucose POC Glucose (mg/dL) Calcium Ionized Calcium Teresa AST ALT Total Protein Arterial Blood Potassium Arterial Blood Glucose Crossmatch - Diagnostic Findings Chest x-ray: image reviewed Assessment and Plan Plan: Assessment Multivessel coronary artery disease with involvement of left main and chronic total occlusion of the circumflex artery. The patient underwent two-vessel bypass surgery with TIAN to LAD and SVG to ramus and the patient is currently postop day #0. Hemodynamically stable, still intubated on mechanical ventilator, no pressors, currently on nitroglycerin drip for blood pressure control. Postthoracotomy, remains intubated on the mechanical ventilator. Chest x-ray was noted. Blood gas was noted. Chest tubes are all in place. The patient has right pleural, left lower lobe mediastinal chest tube. Chronic diastolic heart failure with preserved LV function Recent history of myocardial infarction secondary to coronary artery disease End-stage renal disease on hemodialysis 3 times a week, TTS and the patient has an AV fistula in his right upper extremity Hypertension Hyperlipidemia Insulin-dependent diabetes mellitus and the patient is currently on sliding sc val insulin coverage. He has a backup insulin drip if needed. COPD Obstructive sleep apnea, not significantly compliant to CPAP therapy History of smoking quit back in 1981 Peripheral neuropathy related to diabetes mellitus Orthostatic hypotension History of mild intermittent bronchial asthma currently inactive and stable History of staphylococcal septicemia related to permacath infection back in 2022 Plan Continue vent support necessary ventilator changes were done and FiO2 is being w eaned off Chest x-ray and a blood gas were noted Monitor the output from the chest tubes Clinically and hemodynamically stable. 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
[2023-10-17] MEDS: HEPARIN SODIUM,PORCINE 5,000 UNIT/ML 1 ML VIAL SQ SCH (16:31)
[2023-10-17] MEDS: ACETAMINOPHEN IV (For NPO) 1,000 MG in EMPTY BAG 1 BAG IVPB SCH (16:32)
[2023-10-17 17:15] LABS: Glucose,Whole Blood 136 mg/dL (70-110)
[2023-10-17 18:13] LABS: Glucose,Whole Blood 147 mg/dL (70-110)
[2023-10-17 18:27] LABS: ABG Base Excess -0.3 mmol/L; ABG HCO3 25 mmol/L (21-25); ABG PCO2 44 mmHg (35-45); ABG PH 7.36 (7.35-7.45); ABG PO2 98 mmHg (83-108); ABG TCO2 27 mmol/L (19-24); Allen Test Performed? Yes
[2023-10-17 18:30] LABS: ABG Oxygen Saturation 97.1 % (94-97)
[2023-10-17 19:02] LABS: Glucose,Whole Blood 118 mg/dL (70-110)
[2023-10-17 19:18] LABS: Basophils % (A) 0 %; Eosinophils % (A) 1 %; HCT 26.9 % (39.0-53.0); HGB 9.4 gm/dL (13.0-17.5); Lymphocytes # (A) 0.4 k/uL (1.0-4.8); Lymphocytes % (A) 7 %; MCH 32.7 pg (25.0-35.0); MCHC 34.8 g/dL (31.0-37.0); MCV 94.1 fL (80.0-100.0); Mean Platelet Volume 10.1; Monocytes # (A) 0.2 k/uL (0-1.0); Monocytes % (A) 5 %; Neutrophils # (A) 4.5 k/uL (1.3-7.7); Neutrophils % (A) 86 %; Platelet Count 113 k/uL (150-450); RBC 2.86 m/uL (4.30-5.90); RDW 13.5 % (11.5-15.5); WBC 5.3 k/uL (3.8-10.6)
[2023-10-17] MEDS: AMIODARONE 450 MG in DEXTROSE 5% IN WATER 250 ML IV SCH (19:50)
[2023-10-17 19:51] LABS: Glucose,Whole Blood 101 mg/dL (70-110)
[2023-10-17 20:59] LABS: Glucose,Whole Blood 101 mg/dL (70-110)
[2023-10-17 21:58] LABS: Glucose,Whole Blood 116 mg/dL (70-110)
[2023-10-17 22:57] LABS: Glucose,Whole Blood 126 mg/dL (70-110)
[2023-10-18 00:12] LABS: Glucose,Whole Blood 127 mg/dL (70-110)
[2023-10-18] MEDS: PATIENT'S OWN (Rosuvastatin 10 MG Tablet) PO SCH (00:49)
[2023-10-18 01:27] LABS: Glucose,Whole Blood 108 mg/dL (70-110)
[2023-10-18 02:18] LABS: Glucose,Whole Blood 105 mg/dL (70-110)
[2023-10-18 03:26] LABS: Glucose,Whole Blood 119 mg/dL (70-110)
[2023-10-18 04:18] LABS: Glucose,Whole Blood 127 mg/dL (70-110)
[2023-10-18 04:33] LABS: Ionized Calcium 4.6 mg/dL (4.5-5.3)
[2023-10-18 04:41] LABS: Sodium 134 mmol/L (137-145)
[2023-10-18 04:42] LABS: ALT 33 U/L (4-49); AST 75 U/L (17-59); African American GFR (CKD) 14 (>60 ml/min/1.73 sqM); Albumin 3.4 g/dL (3.5-5.0); Alkaline Phosphatase 107 U/L (38-126); Anion Gap 13 mmol/L; Blood Urea Nitrogen 61 mg/dL (9-20); Calcium 8.4 mg/dL (8.4-10.2); Carbon Dioxide 23 mmol/L (22-30); Chloride 98 mmol/L (98-107); Glucose 120 mg/dL (74-99); Magnesium 1.8 mg/dL (1.6-2.3); Non-African American GFR(CKD) 12 (>60 ml/min/1.73 sqM); Potassium 4.4 mmol/L (3.5-5.1); Total Bilirubin 0.5 mg/dL (0.2-1.3)
[2023-10-18 05:49] LABS: Glucose,Whole Blood 117 mg/dL (70-110)
[2023-10-18 05:49] LABS: ABG Base Excess 1.1 mmol/L; ABG HCO3 26 mmol/L (21-25); ABG PCO2 41 mmHg (35-45); ABG PH 7.41 (7.35-7.45); ABG PO2 74 mmHg (83-108); ABG TCO2 27 mmol/L (19-24); Allen Test Performed? Yes
[2023-10-18 06:08] LABS: Basophils % (A) 0 %; Eosinophils % (A) 0 %; HCT 26.4 % (39.0-53.0); HGB 9.7 gm/dL (13.0-17.5); Lymphocytes # (A) 0.6 k/uL (1.0-4.8); Lymphocytes % (A) 7 %; MCH 34.5 pg (25.0-35.0); MCHC 36.6 g/dL (31.0-37.0); MCV 94.3 fL (80.0-100.0); Mean Platelet Volume 10.2; Monocytes # (A) 0.6 k/uL (0-1.0); Monocytes % (A) 7 %; Neutrophils % (A) 83 %; Platelet Count 103 k/uL (150-450); RDW 13.6 % (11.5-15.5); WBC 8.4 k/uL (3.8-10.6)
[2023-10-18 06:21] LABS: Glucose,Whole Blood 102 mg/dL (70-110)
[2023-10-18 06:59] LABS: Glucose,Whole Blood 94 mg/dL (70-110)
[2023-10-18 07:59] LABS: Glucose,Whole Blood 108 mg/dL (70-110)
[2023-10-18] MEDS: PANTOPRAZOLE 40 MG/10 ML VIAL IVP SCH (08:09)
[2023-10-18] MEDS: CLOPIDOGREL 75 MG TAB PO SCH (08:10)
[2023-10-18] MEDS: LORATADINE 10 MG TAB PO SCH (08:11)
[2023-10-18] MEDS: ESCITALOPRAM 10 MG TAB PO SCH (08:11)
[2023-10-18] MEDS: ASPIRIN 325 MG TAB PO SCH (08:11)
[2023-10-18] MEDS: EZETIMIBE 10 MG TAB PO SCH (08:11)
[2023-10-18] MEDS: CHOLECALCIFEROL 25 MCG (1000 IU) TABLET PO SCH (08:12)
--- NOTE | 2023-10-18 08:42 | XR ---
EXAMINATION TYPE: XR chest 1V portable DATE OF EXAM: 10/18/2023 5:22 AM CLINICAL INDICATION:Male, 72 years old with history of Post Operative Cardiac Surgery; [facility] COMPARISON: Chest radiographs from 10/17/2023. TECHNIQUE: XR chest 1V portable Frontal view of the chest. FINDINGS: Lungs/Pleura: There is no evidence of pleural effusion, focal consolidation, or pneumothorax. Pulmonary vascularity: Unremarkable. Heart/mediastinum: Cardiomediastinal silhouette is unremarkable. Left atrial appendage occlusion catia ce is present. Musculoskeletal: No acute osseous pathology. Other findings: None Lines/Tubes: Endotracheal tube with distal tip 4.5 cm above the valentina. Nasogastric tube with its distal tip and side-port projecting under the diaphragm. Bilateral thoracotomy tubes are present without evidence of pneumothorax. There is a Elizabeth-Pb catheter with tip projecting over the spine. IMPRESSION: Postsurgical changes of mild pulmonary edema.
[2023-10-18 08:57] LABS: Glucose,Whole Blood 99 mg/dL (70-110)
[2023-10-18 09:15] LABS: Glucose,Whole Blood 100 mg/dL (70-110)
[2023-10-18 10:03] LABS: Glucose,Whole Blood 122 mg/dL (70-110)
[2023-10-18] MEDS: FERROUS SULFATE 325 MG TAB PO SCH (10:03)
[2023-10-18] MEDS: FOLIC ACID-VIT B COMPLEX-VIT C 1 CAP PO SCH (10:03)
[2023-10-18] MEDS: METOPROLOL TARTRATE 12.5 MG TAB PO SCH (10:03)
[2023-10-18] MEDS: DEXMEDETOMIDINE/0.9% NACL(PMX) 400 MCG in EMPTY BAG 1 BAG IV SCH (10:16)
--- NOTE | 2023-10-18 10:31 | P.PN ---
Subjective Progress Note Date: 10/18/23 This is a 72-year-old male patient was being seen in the intensive care unit following his cardiac surgery. The patient i has a known history of coronary artery disease, he has undergone previous PCI, chronic diastolic heart failure with a preserved ejection fraction of 50%, end-stage renal disease on h emodialysis 3 times a week, TTS, insulin-dependent diabetes mellitus, hypertension hyperlipidemia and previous history of obstructive sleep apnea and remote history of smoking and the patient quit smoking back in 1981. I have also seen him in the hospital for previous episodes of staphylococcal sepsis. This was related to a permacath infection. The patient has been having episodes of chest pain started in early September 2023. At that time, his troponins were positive and a catheterization was done on 10/03/2023 that showed 60% stenosis in the mid to distal left main, 50 to 60% stenosis of the mid LAD, 100% stenosis of the circumflex and a 50 to 60% stenosis of the mid RCA. At that point, the patient was advised to undergo cardiac revascularization surgery. The patient underwent a off-pump cardiac bypass x 2 with TIAN to LAD and saphenous vein graft to ramus intermedius. Currently, the patient is in the intensive care unit, intubated on mechanical ventilator. He is a bit restless on propofol which is being weaned off. The patient is intubated, assist-control mode rate of 16, tidal volume of 450, FiO2 has been weaned down to 35% with a PEEP of 5. His chest x-ray in the ICU showed increased pulm vascular marking and congestion. Cardiomegaly. Postthoracotomy changes. The patient has an orotracheal tube was in a good location. The patient also has a [place]-Pb catheter in place. As far as tubes, the patient has a right and a left pleural chest tube and mediastinal chest tube. No evidence of any pneumothorax. The blood gases showed a pH of 7.43 with a pCO2 of 42 and pO2 of 277 and this was on 100% FiO2. His current cardiac output is 5.4 with an index of 2.5. PA pressures of 58/25 mmHg. He is on nitroglycerin drip running at 5 mcg/kg/min. He is also on amiodarone drip running at 1 mg/min. His cardiac rhythm is sinus with occasional pacing. Pulse ox is 98%. Arousable and somewhat rested yeah restless yet he is following simple commands. Urine output is minimal as the patient has end-stage renal disease. On today's evaluation of 10/18/2023, the patient is being seen for a follow-up. The patient remains intubated on the mechanical ventilator. Unable to wean this patient off the mechanical ventilator as the patient has difficulties in performing spontaneous breathing trial and he was becoming restless, agitated, tachypneic and he would develop hemodynamic instability and elevation of the PA pressures. Based on that, the trial was aborted. The plan was discussed with the cardiothoracic surgeon. The plan was to proceed with hemodialysis today and following that, the patient may potentially extubate. As such, hemodialysis was started this morning and the goal is to dialyze the patient and ultrafiltration for a total of 2 L. His current rhythm is sinus with occasional bradycardia, VVI pacing at 40 and he has occasional PVCs. He remains intubated on the mechanical ventilator. He is on assist-control mode rate of 16, tidal volume of 450, FiO2 is down to 35% with a PEEP of 5. Chest x-ray shows mild interstitial markings bilaterally. Tubes are in good location. Orotracheal tube is in good location. There is no evidence of any pneumothorax. He remains on propofol at 30 mcg/kg/min. Insulin drip is on hold and the patient is on nitroglycerin drip at 5 mcg/min. The pulmonary artery pressures are 37/14. Cardiac output is at 4.9 with an index of 2.3. The right and the left pleural chest tube has put out a total of 210 cc since surgery and the mediastinal chest tube is put out 200 cc since surgery. No evidence of any air leak. Hemodynamically stable. No pressors. No fever. Objective - Vital Signs Vital signs: Vital Signs Temp 96.6 F L 10/18/23 08:00 Pulse 57 L 10/18/23 08:00 Resp 21 10/18/23 08:00 BP 105/28 10/18/23 08:00 Pulse Ox 100 10/18/23 08:00 FiO2 35 10/18/23 04:00 Intake & Output 10/17/23 10/18/23 10/18/23 18:59 06:59 18:59 Intake Total 366.802 8884.475 128 Output Total 740 568 33 Balance 113.666 477.475 95 Weight 105 kg Intake: IV 457 778 128 .9NS Cardiac Output 60 130 20 .9NS Pressure Bag 54 108 18 Lactated Ringers 1,000 ml 290 540 90 @ 50 mls/hr IV .Q20H JOEY Rx#:[id number] Intake, IV Titration 396.666 267.475 0 Amount Amiodarone 450 mg In 11.945 Dextrose 5% in Water 250 ml @ 0.5 MG/MIN 16.667 mls/hr IV .Q15H JOEY Rx#: [id number] Calcium Gluconate in NaCl 100 1 gm In Saline 1 100ml. bag @ 100 mls/hr IVPB ONCE ONE Rx#:[id number] Insulin Regular 100 unit 15.183 50.525 0 In Sodium Chloride 0.9% 100 ml @ Per Protocol IV .Q0M JOEY Rx#:[id number] Potassium Chloride 10 meq 200 In Water For Injection 1 100ml.bag @ 100 mls/hr IVPB Q1H JOEY Rx#: [id number] ceFAZolin 1,000 mg In 50 Sodium Chloride 0.9% 50 ml @ 100 mls/hr IV Q12H JOEY Rx#:[id number] propofoL 1,000 mg In 31.483 205.005 Empty Bag 1 bag @ Titrate IV .Q0M JOEY Rx#: [id number] Output: Chest Tube Drainage 150 233 28 Left adn Right Chest Tube 100 111 0 Mediastinal Chest Tube 50 122 28 Urine 190 335 5 Estimated Blood Loss 400 Other: Voiding Method Indwelling Catheter Indwelling Catheter ABP, PAP, CO, CI - Last Documented Arterial Blood Pressure 116/35 Pulmonary Artery Pressure 37/14 Cardiac Output 4.9 Cardiac Index 2.3 - Exam Patient is currently being weaned off the propofol. Calm and comfortable, intubated on mechanical ventilator, orogastric and orotracheal tube are both in place. Head exam was generally normal. There was no scleral icterus or corneal arcus. Mucous membranes were moist. Neck was supple and without jugular venous distension, thyromegaly, or carotid bruits. Carotids were easily palpable bilaterally. There was no adenopathy. The patient has a left IJ [place]-Pb catheter in place. Orotracheal tube are both in place. Lung sounds are diminished. Breath sounds are equal and symmetrical bilaterally. Heart sounds are regular, positive S1-S2, the patient has a mediastinal, right pleural and left pleural chest tube. Output from the pleural chest tubes have been in the order of 100 cc from the mediastinal chest tube output is in order of 30 cc since arrival from the operating room. Abdominal exam revealed normal bowel sounds. The abdomen was soft, non-tender, and without masses, organomegaly, or appreciable enlargement of the abdominal aorta. Examination of the extremities revealed easily palpable radial, femoral and pedal pulses. There was no cyanosis, clubbing or edema. Examination of the skin revealed no evidence of significant rashes, suspicious appearing nevi or other concerning lesions. Neurologically, moving all 4 extremities. Drowsy and sleepy still. Pupils are equal reactive to light. No focal neurological deficits. Moving all 4 extremities without any limitation. - Labs CBC & Chem 7: 10/18/23 04:15 10/18/23 04:15 Labs: Abnormal Lab Results - Last 24 Hours (Table) 10/14/23 10/17/23 10/17/23 Range/Units 11:31 08:57 10:04 RBC (4.30-5.90) m/uL Hgb (13.0-17.5) gm/dL Hct (39.0-53.0) % Plt Count (150-450) k/uL Lymphocytes # (1.0-4.8) k/uL ABG pH 7.46 H (7.35-7.45) ABG pO2 132 H (83-108) mmHg ABG HCO3 29 H 27 H (21-25) mmol/L ABG Total CO2 (19-24) mmol/L ABG O2 Saturation 98.6 H 98.0 H (94-97) % ABG Hematocrit 32 L 28 L (34.0-46.0) % ABG Potassium 4.8 H (3.4-4.5) mmol/L ABG Ionized Calcium 4.3 L 4.3 L (4.5-5.3) mg/dL ABG Glucose 194 H 201 H (75-99) mg/dL Hemoglobin 10.3 L 9.0 L (13.0-17.5) gm/dL Sodium (137-145) mmol/L BUN (9-20) mg/dL Creatinine (0.66-1.25) mg/dL Glucose (74-99) mg/dL POC Glucose (mg/dL) (70-110) mg/dL Calcium (8.4-10.2) mg/dL Ionized Calcium Teresa (4.5-5.3) mg/dL AST (17-59) U/L ALT (4-49) U/L Total Protein (6.3-8.2) g/dL Albumin (3.5-5.0) g/dL Arterial Blood Potassium 4.8 H (3.4-4.5) mmol/L Arterial Blood Glucose 194 H 201 H (75-99) mg/dL Crossmatch See Detail 10/17/23 10/17/23 10/17/23 Range/Units 10:34 11:00 12:44 RBC 2.74 L (4.30-5.90) m/uL Hgb 8.9 L D (13.0-17.5) gm/dL Hct 25.6 L (39.0-53.0) % Plt Count 100 L (150-450) k/uL Lymphocytes # (1.0-4.8) k/uL ABG pH 7.48 H (7.35-7.45) ABG pO2 184 H 174 H (83-108) mmHg ABG HCO3 26 H 26 H (21-25) mmol/L ABG Total CO2 (19-24) mmol/L ABG O2 Saturation 99.2 H 99.2 H (94-97) % ABG Hematocrit 28 L 29 L (34.0-46.0) % ABG Potassium (3.4-4.5) mmol/L ABG Ionized Calcium 4.3 L 4.3 L (4.5-5.3) mg/dL ABG Glucose 186 H 175 H (75-99) mg/dL Hemoglobin 9.2 L 9.3 L (13.0-17.5) gm/dL Sodium (137-145) mmol/L BUN (9-20) mg/dL Creatinine (0.66-1.25) mg/dL Glucose (74-99) mg/dL POC Glucose (mg/dL) (70-110) mg/dL Calcium (8.4-10.2) mg/dL Ionized Calcium Teresa (4.5-5.3) mg/dL AST (17-59) U/L ALT (4-49) U/L Total Protein (6.3-8.2) g/dL Albumin (3.5-5.0) g/dL Arterial Blood Potassium (3.4-4.5) mmol/L Arterial Blood Glucose 186 H 175 H (75-99) mg/dL Crossmatch 10/17/23 10/17/23 10/17/23 Range/Units 12:44 12:44 13:26 RBC (4.30-5.90) m/uL Hgb (13.0-17.5) gm/dL Hct (39.0-53.0) % Plt Count (150-450) k/uL Lymphocytes # (1.0-4.8) k/uL ABG pH (7.35-7.45) ABG pO2 277 H (83-108) mmHg ABG HCO3 28 H (21-25) mmol/L ABG Total CO2 29 H (19-24) mmol/L ABG O2 Saturation 99.2 H (94-97) % ABG Hematocrit (34.0-46.0) % ABG Potassium (3.4-4.5) mmol/L ABG Ionized Calcium (4.5-5.3) mg/dL ABG Glucose (75-99) mg/dL Hemoglobin (13.0-17.5) gm/dL Sodium (137-145) mmol/L BUN 57 H (9-20) mg/dL Creatinine 3.97 H (0.66-1.25) mg/dL Glucose 121 H (74-99) mg/dL POC Glucose (mg/dL) 125 H (70-110) mg/dL Calcium 8.2 L (8.4-10.2) mg/dL Ionized Calcium [place] 4.4 L (4.5-5.3) mg/dL AST 162 H (17-59) U/L ALT 51 H (4-49) U/L Total Protein 6.2 L (6.3-8.2) g/dL Albumin (3.5-5.0) g/dL Arterial Blood Potassium (3.4-4.5) mmol/L Arterial Blood Glucose (75-99) mg/dL Crossmatch 10/17/23 10/17/23 10/17/23 Range/Units 15:46 17:13 18:11 RBC 2.72 L (4.30-5.90) m/uL Hgb 8.8 L (13.0-17.5) gm/dL Hct 25.4 L (39.0-53.0) % Plt Count 106 L (150-450) k/uL Lymphocytes # 0.9 L (1.0-4.8) k/uL ABG pH (7.35-7.45) ABG pO2 (83-108) mmHg ABG HCO3 (21-25) mmol/L ABG Total CO2 (19-24) mmol/L ABG O2 Saturation (94-97) % ABG Hematocrit (34.0-46.0) % ABG Potassium (3.4-4.5) mmol/L ABG Ionized Calcium (4.5-5.3) mg/dL ABG Glucose (75-99) mg/dL Hemoglobin (13.0-17.5) gm/dL Sodium (137-145) mmol/L BUN (9-20) mg/dL Creatinine (0.66-1.25) mg/dL Glucose (74-99) mg/dL POC Glucose (mg/dL) 136 H 147 H (70-110) mg/dL Calcium (8.4-10.2) mg/dL Ionized Calcium Teresa (4.5-5.3) mg/dL AST (17-59) U/L ALT (4-49) U/L Total Protein (6.3-8.2) g/dL Albumin (3.5-5.0) g/dL Arterial Blood Potassium (3.4-4.5) mmol/L Arterial Blood Glucose (75-99) mg/dL Crossmatch 10/17/23 10/17/23 10/17/23 Range/Units 18:21 18:57 18:59 RBC 2.86 L (4.30-5.90) m/uL Hgb 9.4 L (13.0-17.5) gm/dL Hct 26.9 L (39.0-53.0) % Plt Count 113 L (150-450) k/uL Lymphocytes # 0.4 L (1.0-4.8) k/uL ABG pH (7.35-7.45) ABG pO2 (83-108) mmHg ABG HCO3 (21-25) mmol/L ABG Total CO2 27 H (19-24) mmol/L ABG O2 Saturation 97.1 H (94-97) % ABG Hematocrit (34.0-46.0) % ABG Potassium (3.4-4.5) mmol/L ABG Ionized Calcium (4.5-5.3) mg/dL ABG Glucose (75-99) mg/dL Hemoglobin (13.0-17.5) gm/dL Sodium (137-145) mmol/L BUN (9-20) mg/dL Creatinine (0.66-1.25) mg/dL Glucose (74-99) mg/dL POC Glucose (mg/dL) 118 H (70-110) mg/dL Calcium (8.4-10.2) mg/dL Ionized Calcium Teresa (4.5-5.3) mg/dL AST (17-59) U/L ALT (4-49) U/L Total Protein (6.3-8.2) g/dL Albumin (3.5-5.0) g/dL Arterial Blood Potassium (3.4-4.5) mmol/L Arterial Blood Glucose (75-99) mg/dL Crossmatch 10/17/23 10/17/23 10/18/23 Range/Units 21:56 22:56 00:11 RBC (4.30-5.90) m/uL Hgb (13.0-17.5) gm/dL Hct (39.0-53.0) % Plt Count (150-450) k/uL Lymphocytes # (1.0-4.8) k/uL ABG pH (7.35-7.45) ABG pO2 (83-108) mmHg ABG HCO3 (21-25) mmol/L ABG Total CO2 (19-24) mmol/L ABG O2 Saturation (94-97) % ABG Hematocrit (34.0-46.0) % ABG Potassium (3.4-4.5) mmol/L ABG Ionized Calcium (4.5-5.3) mg/dL ABG Glucose (75-99) mg/dL Hemoglobin (13.0-17.5) gm/dL Sodium (137-145) mmol/L BUN (9-20) mg/dL Creatinine (0.66-1.25) mg/dL Glucose (74-99) mg/dL POC Glucose (mg/dL) 116 H 126 H 127 H (70-110) mg/dL Calcium (8.4-10.2) mg/dL Ionized Calcium Teresa (4.5-5.3) mg/dL AST (17-59) U/L ALT (4-49) U/L Total Protein (6.3-8.2) g/dL Albumin (3.5-5.0) g/dL Arterial Blood Potassium (3.4-4.5) mmol/L Arterial Blood Glucose (75-99) mg/dL Crossmatch 10/18/23 10/18/23 10/18/23 Range/Units 03:24 04:15 04:15 RBC 2.80 L (4.30-5.90) m/uL Hgb 9.7 L (13.0-17.5) gm/dL Hct 26.4 L (39.0-53.0) % Plt Count 103 L (150-450) k/uL Lymphocytes # 0.6 L (1.0-4.8) k/uL ABG pH (7.35-7.45) ABG pO2 (83-108) mmHg ABG HCO3 (21-25) mmol/L ABG Total CO2 (19-24) mmol/L ABG O2 Saturation (94-97) % ABG Hematocrit (34.0-46.0) % ABG Potassium (3.4-4.5) mmol/L ABG Ionized Calcium (4.5-5.3) mg/dL ABG Glucose (75-99) mg/dL Hemoglobin (13.0-17.5) gm/dL Sodium 134 L (137-145) mmol/L BUN 61 H (9-20) mg/dL Creatinine 4.56 H (0.66-1.25) mg/dL Glucose 120 H (74-99) mg/dL POC Glucose (mg/dL) 119 H (70-110) mg/dL Calcium (8.4-10.2) mg/dL Ionized Calcium Teresa (4.5-5.3) mg/dL AST 75 H (17-59) U/L ALT (4-49) U/L Total Protein 6.0 L (6.3-8.2) g/dL Albumin 3.4 L (3.5-5.0) g/dL Arterial Blood Potassium (3.4-4.5) mmol/L Arterial Blood Glucose (75-99) mg/dL Crossmatch 10/18/23 10/18/23 10/18/23 Range/Units 04:15 05:45 05:47 RBC (4.30-5.90) m/uL Hgb (13.0-17.5) gm/dL Hct (39.0-53.0) % Plt Count (150-450) k/uL Lymphocytes # (1.0-4.8) k/uL ABG pH (7.35-7.45) ABG pO2 74 L (83-108) mmHg ABG HCO3 26 H (21-25) mmol/L ABG Total CO2 27 H (19-24) mmol/L ABG O2 Saturation (94-97) % ABG Hematocrit (34.0-46.0) % ABG Potassium (3.4-4.5) mmol/L ABG Ionized Calcium (4.5-5.3) mg/dL ABG Glucose (75-99) mg/dL Hemoglobin (13.0-17.5) gm/dL Sodium (137-145) mmol/L BUN (9-20) mg/dL Creatinine (0.66-1.25) mg/dL Glucose (74-99) mg/dL POC Glucose (mg/dL) 127 H 117 H (70-110) mg/dL Calcium (8.4-10.2) mg/dL Ionized Calcium Teresa (4.5-5.3) mg/dL AST (17-59) U/L ALT (4-49) U/L Total Protein (6.3-8.2) g/dL Albumin (3.5-5.0) g/dL Arterial Blood Potassium (3.4-4.5) mmol/L Arterial Blood Glucose (75-99) mg/dL Crossmatch Assessment and Plan Plan: Assessment Multivessel coronary artery disease with involvement of left main and chronic total occlusion of the circumflex artery. The patient underwent two-vessel bypass surgery with TIAN to LAD and SVG to ramus and the patient is currently postop day #1. Hemodynamically stable, still intubated on mechanical ventilator, no pressors, currently on nitroglycerin drip for blood pressure control. Unable to wean the patient off the mechanical ventilator probably related to some increased interstitial edema postcardiac surgery. Patient is to undergo dialysis today and following that he will be given another weaning trial. Postthoracotomy, remains intubated on the mechanical ventilator. Chest x-ray was noted. Blood gas was noted. Chest tubes are all in place. The patient has right pleural, left pleural and mediastinal chest tube. The patient is unde rgoing hemodialysis today to be followed up by weaning trial. Chest tube output is minimal and there is no evidence of any air leak. Chronic diastolic heart failure with preserved LV function Recent history of myocardial infarction secondary to coronary artery disease End-stage renal disease on hemodialysis 3 times a week, TTS and the patient has an AV fistula in his right upper extremity, undergoing hemodialysis this morning Hypertension Hyperlipidemia Insulin-dependent diabetes mellitus and the patient is currently on sliding scale insulin coverage. He has a backup insulin drip if needed. COPD Obstructive sleep apnea, not significantly compliant to CPAP therapy History of smoking quit back in 1981 Peripheral neuropathy related to diabetes mellitus Orthostatic hypotension History of mild intermittent bronchial asthma currently inactive and stable History of staphylococcal septicemia related to permacath infection back in 2022 Plan Continue vent support Chest x-ray and a blood gas were noted Hemodialysis this morning to be completed with a total of 2 L of ultrafiltra tion. Following that, the patient will be weaned off the sedation and will be checked for his weaning parameters and given a spontaneous breathing trial. Monitor the output from the chest tubes, output is minimal at this point in time and there is no evidence of any air leak Clinically and hemodynamically stable. Adequate cardiac output and index and the patient is currently on no pressors Backup VVI pacing at rate of 40, current rhythm is sinus and the patient is currently on amiodarone drip at 1 mg/min Postop hemoglobin is stable Continue nitroglycerin drip for blood pressure control [employer] on the case Will continue to follow, Working progress in the patient was done more than 30 minutes. Time with Patient: Greater than 30
--- NOTE | 2023-10-18 11:00 | P.CONS ---
History of Present Illness - Reason for Consult Consult date: 10/18/23 DM Requesting physician: Frederic Freeman - Chief Complaint chest pain - History of Present Illness Patient is a 72-year-old male with coronary artery disease, end-stage renal dis ease on hemodialysis Tuesday//Tuesday, diabetes mellitus type 2 with insulin pump, COPD, heart failure with ejection fraction 50 to 55%, and multiple other comorbid conditions who presented for two-vessel coronary artery bypass grafting. He tolerated the procedure well. He required prolonged intubation. He remains sedated and intubated. He is currently running on dialysis. Patient was unable to extubate last night due to increased work of breathing per nursing and distress. Per nursing patient has both required insulin drip and has not required insulin drip. We discussed that he is very labile diabetic and this is not unusual for him. Vital signs reviewed General: nontoxic, no distress, appears at stated age Derm: warm, dry Eyes: EOMI, no lid lag, anicteric sclera, pupils equal round reactive to light ENT: Nose and ears atraumatic Cardiovascular: S1S2 reg, no murmur, no edema Lungs: clear to auscultation bilateral, no rhonchi, no rales, no wheeze, no accessory muscle use Abdominal: soft, nontender to palpation, no guarding Ext: no gross muscle atrophy, no contractures Neuro: CN II-XII grossly intact, No focal neuro deficits Psych: Alert, oriented, appropriate affect Assessment/Plan: Patient is a 72-year-old male status post two-vessel coronary artery bypass grafting Compensated diastolic congestive heart failure with ejection fraction 50 to 55% Hypertension Dyslipidemia -Pulmonary note reviewed: Continue vent support. Continue on hemodialysis. -Aspirin 325 mg daily -Plavix 75 mg daily -Zetia 10 mg daily -Metoprolol 12.5 mg twice daily Acute blood loss anemia, anticipated outcome of surgery Thrombocytopenia, anticipated outcome of surgery -Patient's preoperative hemoglobin was 12.2. -No indication for transfusion at this time -Follow CBC Diabetes mellitus type 2, insulin-dependent -Currently on insulin drip with blood sugars fairly well-controlled. Would continue to use insulin drip until patient is extubated and eating well. Patient has been both on and off the drip since coming back from surgery. - very brittle diabetic, follow BS closely. End-stage renal disease on hemodialysis Tuesday//Tuesday -Await nephrology consultation -on HD today COPD without exacerbation Obstructive sleep apnea -Pulmonary recommendations -Continue with scheduled DuoNeb Imaging: Chest x-rays reviewed by myself shows left-sided pleural effusion. Lines and tubes appear in appropriate position. Data Review: Labs reviewed from today include CBC, ABG, and CMP which are remarkable for hemoglobin 9.7, platelets 103, BUN 61, creatinine 4.56 Thank you for allowing us to participate in the care of this pleasant patient. Do not hesitate to contact us with questions. Someone can be reached from the [facility] hospitalist group all hours of the day at [phone] or via LoggedIn. This dictation was prepared using [employer] voice recognition software. Though every attempt is made to correct errors during dictation some may still exist. Past Medical History Past Medical History: Blood Disorder, Coronary Artery Disease (CAD), Chest Pain / Angina, Heart Failure, COPD, Diabetes Mellitus, Dialysis, Hearing Disorder / Deafness, Hyperlipidemia, Hypertension, Myocardial Infarction (NE), Osteoarthritis (OA), Renal Disease, Sleep Apnea/CPAP/BIPAP Additional Past Medical History / Comment(s): has insulin pump and contiunuous blood glucose monitor,fell at home on Tuesday10-10-23"got dizzy"-no injury,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. Chronic renal failure, dialysis [facility] normally. Patient has in sulin pump. Has CPAP, occasionally uses. Neuropathy in feet and hands. Poor hearing. Last Myocardial Infarction Date:: History of Any Multi-Drug Resistant Organisms: None Reported Past Surgical History: Cholecystectomy, Heart Catheterization, Heart Catheterization With Stent, Orthopedic Surgery Additional Past Surgical History / Comment(s): Shoulder surgery-no hardware, hemorrhoidectomy, eye surgery,4 cardiac stents,AV fistula left forearm Past Anesthesia/Blood Transfusion Reactions: No Reported Reaction Additional Past Anesthesia/Blood Transfusion Reaction / Comm: Never had a blood transfusion. Date of Last Stent Placement:: Smoking Status: Former smoker - Past Family History Father Family Medical History: Cancer Additional Family Medical History / Comment(s): Bladder cancer. Mother Family Medical History: Cancer, Diabetes Mellitus Additional Family Medical History / Comment(s): Pancreatic cancer. Medications and Allergies Home Medications Medication Instructions Recorded Confirmed Type Nitroglycerin Sl Tabs [Nitrostat] 0.4 mg SL Q5M PRN 03/03/14 10/17/23 History Ezetimibe [Zetia] 10 mg PO QAM 05/19/16 10/17/23 History Ferrous Sulfate [Iron (65 MG 325 mg PO DAILY 05/19/16 10/17/23 History Elemental)] Insulin Aspart (For Pump) [NovoLOG 0.01 unit SQ-PUMP CONTINUOUS 05/28/18 10/17/23 History (For Pump)] Pramipexole [Mirapex] 0.5 mg PO BID PRN 05/02/19 10/17/23 History Albuterol Inhaler [Ventolin Hfa 2 puff INHALATION RT-Q4H PRN 08/10/21 10/17/23 History Inhaler] Aspirin EC [Ecotrin Low Dose] 81 mg PO DAILY 02/21/22 10/17/23 History Glucagon Emergency Kit 1 mg IM ONCE PRN 02/21/22 10/17/23 History Escitalopram [Lexapro] 10 mg PO DAILY 01/01/23 10/17/23 History ALPRAZolam [Xanax] 0.5 mg PO HS PRN 06/17/23 10/17/23 History Cholecalciferol [Vitamin D3 (25 50 mcg PO DAILY 06/17/23 10/17/23 History Mcg = 1000 Iu)] Isosorbide Mononitrate [Isosorbide 30 mg PO DAILY 06/17/23 10/17/23 History Mononitrate ER] Rosuvastatin [Crestor] 10 mg PO HS 06/17/23 10/17/23 History Tamsulosin [Flomax] 0.4 mg PO HS 06/17/23 10/17/23 History Cetirizine HCl [Zyrtec] 10 mg PO DAILY 09/22/23 10/17/23 History Folic Acid/Vit B Complex and C 0.8 mg PO DAILY 09/22/23 10/17/23 History [Nephro-Pooja Tablet] Torsemide [Demadex] 40 mg PO SUMOWEFR 09/22/23 10/17/23 History Calcium Carbonate [Tums] 1,000 mg PO AC-TID 09/28/23 10/17/23 History Ranolazine [Ranexa] 500 mg PO Q12HR 10/14/23 10/17/23 History Allergies Allergy/AdvReac Type Severity Reaction Status Date / Time atorvastatin [From Lipitor] AdvReac jt and Verified 10/17/23 06:33 muscle pain baclofen AdvReac caused a Verified 10/17/23 06:33 fall Physical Exam Osteopathic Statement: *. No significant issues noted on an osteopathic structural exam other than those noted in the History and Physical/Consult. Vitals: Vital Signs Temp Pulse Resp BP Pulse Ox FiO2 10/18/23 07:00 54 L 16 107/31 100 10/18/23 06:30 56 L 16 113/25 99 10/18/23 06:00 57 L 16 98 10/18/23 05:30 58 L 16 98 10/18/23 05:00 58 L 16 100 10/18/23 04:30 57 L 16 100 10/18/23 04:00 97.2 F L 57 L 16 102/27 100 35 10/18/23 03:30 57 L 16 102/27 100 10/18/23 03:26 35 10/18/23 03:00 56 L 16 106/27 99 10/18/23 02:30 57 L 16 99 10/18/23 02:00 56 L 16 111/37 98 10/18/23 01:30 56 L 16 99 10/18/23 01:00 57 L 16 115/31 99 10/18/23 00:30 57 L 16 100 10/18/23 00:00 97.0 F L 52 L 16 110/30 100 35 10/17/23 23:30 55 L 16 100 10/17/23 23:24 35 10/17/23 23:00 53 L 16 103/37 100 10/17/23 22:30 54 L 16 99 10/17/23 22:00 54 L 16 109/33 100 10/17/23 21:30 54 L 16 99 10/17/23 21:00 55 L 16 109/33 99 10/17/23 20:30 56 L 16 99 10/17/23 20:00 98.4 F 54 L 16 98 35 10/17/23 19:50 61 10/17/23 19:33 61 35 10/17/23 19:30 58 L 16 98 10/17/23 19:00 59 L 18 98 10/17/23 18:30 60 18 98 10/17/23 18:00 64 18 98 35 10/17/23 17:30 64 20 98 10/17/23 17:00 68 18 98 10/17/23 16:30 61 19 89/34 98 10/17/23 16:00 97.5 F L 56 L 18 98 35 10/17/23 15:45 59 L 21 98 10/17/23 15:36 60 10/17/23 15:30 61 16 100 35 10/17/23 15:24 57 L 10/17/23 15:20 35 10/17/23 15:15 62 22 100 10/17/23 15:00 62 21 100 10/17/23 14:45 62 19 100 50 10/17/23 14:39 50 10/17/23 14:30 58 L 21 100 10/17/23 14:15 60 18 100 10/17/23 14:00 61 18 110/35 100 10/17/23 13:45 96.6 F L 63 18 110/35 100 70 10/17/23 13:30 64 19 110/35 100 70 10/17/23 13:15 63 22 100 100 10/17/23 13:10 96.1 F L 62 18 100 10/17/23 13:05 62 19 110/35 100 10/17/23 13:00 61 20 110/35 100 10/17/23 12:50 60 17 100 10/17/23 12:49 100 10/17/23 12:47 100 10/17/23 12:46 60 Intake and Output 10/17/23 10/18/23 10/18/23 22:59 06:59 14:59 Intake Total 776.208 708.987 54 Output Total 335 383 13 Balance 441.208 325.987 41 Intake: IV 552 492 54 .9NS Cardiac Output 110 60 .9NS Pressure Bag 72 72 9 Lactated Ringers 1,000 ml 370 360 45 @ 50 mls/hr IV .Q20H JOEY Rx#:[id number] Intake, IV Titration 224.208 216.987 Amount Amiodarone 450 mg In 11.945 Dextrose 5% in Water 250 ml @ 0.5 MG/MIN 16.667 mls/hr IV .Q15H JOEY Rx#: [id number] Insulin Regular 100 unit 24.475 35.005 In Sodium Chloride 0.9% 100 ml @ Per Protocol IV .Q0M JOEY Rx#:[id number] Potassium Chloride 10 meq 100 In Water For Injection 1 100ml.bag @ 100 mls/hr IVPB Q1H JOEY Rx#: [id number] ceFAZolin 1,000 mg In 50 Sodium Chloride 0.9% 50 ml @ 100 mls/hr IV Q12H JOEY Rx#:[id number] propofoL 1,000 mg In 37.788 181.982 Empty Bag 1 bag @ Titrate IV .Q0M JOEY Rx#: [id number] Output: Chest Tube Drainage 175 138 8 Left adn Right Chest Tube 130 36 0 Mediastinal Chest Tube 45 102 8 Urine 160 245 5 Other: Voiding Method Indwelling Catheter Indwelling Catheter Weight 105 kg ABP, PAP, CO, CI - Last 8 Hours Arterial Blood Pressure 112/33 Arterial Blood Pressure 113/32 Arterial Blood Pressure 121/33 Arterial Blood Pressure 94/48 Arterial Blood Pressure 122/34 Arterial Blood Pressure 122/34 Arterial Blood Pressure 120/34 Arterial Blood Pressure 110/34 Arterial Blood Pressure 106/32 Arterial Blood Pressure 118/34 Arterial Blood Pressure 116/33 Arterial Blood Pressure 117/33 Arterial Blood Pressure 124/33 Arterial Blood Pressure 124/34 Arterial Blood Pressure 120/33 Pulmonary Artery Pressure 37/14 Pulmonary Artery Pressure 39/14 Pulmonary Artery Pressure 43/16 Pulmonary Artery Pressure 59/26 Pulmonary Artery Pressure 43/15 Pulmonary Artery Pressure 49/18 Pulmonary Artery Pressure 47/19 Pulmonary Artery Pressure 47/18 Pulmonary Artery Pressure 48/13 Pulmonary Artery Pressure 45/17 Pulmonary Artery Pressure 45/16 Pulmonary Artery Pressure 44/14 Pulmonary Artery Pressure 46/16 Pulmonary Artery Pressure 47/17 Pulmonary Artery Pressure 49/16 Cardiac Output 6.0 Cardiac Output 5.4 Cardiac Index 2.8 Cardiac Index 2.5 Results CBC & Chem 7: 10/18/23 04:15 10/18/23 04:15 Labs: Abnormal Lab Results - Last 24 Hours (Table) 10/14/23 10/17/23 10/17/23 Range/Units 11:31 08:57 10:04 RBC (4.30-5.90) m/uL Hgb (13.0-17.5) gm/dL Hct (39.0-53.0) % Plt Count (150-450) k/uL Lymphocytes # (1.0-4.8) k/uL ABG pH 7.46 H (7.35-7.45) ABG pO2 132 H (83-108) mmHg ABG HCO3 29 H 27 H (21-25) mmol/L ABG Total CO2 (19-24) mmol/L ABG O2 Saturation 98.6 H 98.0 H (94-97) % ABG Hematocrit 32 L 28 L (34.0-46.0) % ABG Potassium 4.8 H (3.4-4.5) mmol/L ABG Ionized Calcium 4.3 L 4.3 L (4.5-5.3) mg/dL ABG Glucose 194 H 201 H (75-99) mg/dL Hemoglobin 10.3 L 9.0 L (13.0-17.5) gm/dL Sodium (137-145) mmol/L BUN (9-20) mg/dL Creatinine (0.66-1.25) mg/dL Glucose (74-99) mg/dL POC Glucose (mg/dL) (70-110) mg/dL Calcium (8.4-10.2) mg/dL Ionized Calcium Teresa (4.5-5.3) mg/dL AST (17-59) U/L ALT (4-49) U/L Total Protein (6.3-8.2) g/dL Albumin (3.5-5.0) g/dL Arterial Blood Potassium 4.8 H (3.4-4.5) mmol/L Arterial Blood Glucose 194 H 201 H (75-99) mg/dL Crossmatch See Detail 10/17/23 10/17/23 10/17/23 Range/Units 10:34 11:00 12:44 RBC 2.74 L (4.30-5.90) m/uL Hgb 8.9 L D (13.0-17.5) gm/dL Hct 25.6 L (39.0-53.0) % Plt Count 100 L (150-450) k/uL Lymphocytes # (1.0-4.8) k/uL ABG pH 7.48 H (7.35-7.45) ABG pO2 184 H 174 H (83-108) mmHg ABG HCO3 26 H 26 H (21-25) mmol/L ABG Total CO2 (19-24) mmol/L ABG O2 Saturation 99.2 H 99.2 H (94-97) % ABG Hematocrit 28 L 29 L (34.0-46.0) % ABG Potassium (3.4-4.5) mmol/L ABG Ionized Calcium 4.3 L 4.3 L (4.5-5.3) mg/dL ABG Glucose 186 H 175 H (75-99) mg/dL Hemoglobin 9.2 L 9.3 L (13.0-17.5) gm/dL Sodium (137-145) mmol/L BUN (9-20) mg/dL Creatinine (0.66-1.25) mg/dL Glucose (74-99) mg/dL POC Glucose (mg/dL) (70-110) mg/dL Calcium (8.4-10.2) mg/dL Ionized Calcium Teresa (4.5-5.3) mg/dL AST (17-59) U/L ALT (4-49) U/L Total Protein (6.3-8.2) g/dL Albumin (3.5-5.0) g/dL Arterial Blood Potassium (3.4-4.5) mmol/L Arterial Blood Glucose 186 H 175 H (75-99) mg/dL Crossmatch 10/17/23 10/17/23 10/17/23 Range/Units 12:44 12:44 13:26 RBC (4.30-5.90) m/uL Hgb (13.0-17.5) gm/dL Hct (39.0-53.0) % Plt Count (150-450) k/uL Lymphocytes # (1.0-4.8) k/uL ABG pH (7.35-7.45) ABG pO2 277 H (83-108) mmHg ABG HCO3 28 H (21-25) mmol/L ABG Total CO2 29 H (19-24) mmol/L ABG O2 Saturation 99.2 H (94-97) % ABG Hematocrit (34.0-46.0) % ABG Potassium (3.4-4.5) mmol/L ABG Ionized Calcium (4.5-5.3) mg/dL ABG Glucose (75-99) mg/dL Hemoglobin (13.0-17.5) gm/dL Sodium (137-145) mmol/L BUN 57 H (9-20) mg/dL Creatinine 3.97 H (0.66-1.25) mg/dL Glucose 121 H (74-99) mg/dL POC Glucose (mg/dL) 125 H (70-110) mg/dL Calcium 8.2 L (8.4-10.2) mg/dL Ionized Calcium Teresa 4.4 L (4.5-5.3) mg/dL AST 162 H (17-59) U/L ALT 51 H (4-49) U/L Total Protein 6.2 L (6.3-8.2) g/dL Albumin (3.5-5.0) g/dL Arterial Blood Potassium (3.4-4.5) mmol/L Arterial Blood Glucose (75-99) mg/dL Crossmatch 10/17/23 10/17/23 10/17/23 Range/Units 15:46 17:13 18:11 RBC 2.72 L (4.30-5.90) m/uL Hgb 8.8 L (13.0-17.5) gm/dL Hct 25.4 L (39.0-53.0) % Plt Count 106 L (150-450) k/uL Lymphocytes # 0.9 L (1.0-4.8) k/uL ABG pH (7.35-7.45) ABG pO2 (83-108) mmHg ABG HCO3 (21-25) mmol/L ABG Total CO2 (19-24) mmol/L ABG O2 Saturation (94-97) % ABG Hematocrit (34.0-46.0) % ABG Potassium (3.4-4.5) mmol/L ABG Ionized Calcium (4.5-5.3) mg/dL ABG Glucose (75-99) mg/dL Hemoglobin (13.0-17.5) gm/dL Sodium (137-145) mmol/L BUN (9-20) mg/dL Creatinine (0.66-1.25) mg/dL Glucose (74-99) mg/dL POC Glucose (mg/dL) 136 H 147 H (70-110) mg/dL Calcium (8.4-10.2) mg/dL Ionized Calcium Teresa (4.5-5.3) mg/dL AST (17-59) U/L ALT (4-49) U/L Total Protein (6.3-8.2) g/dL Albumin (3.5-5.0) g/dL Arterial Blood Potassium (3.4-4.5) mmol/L Arterial Blood Glucose (75-99) mg/dL Crossmatch 10/17/23 10/17/23 10/17/23 Range/Units 18:21 18:57 18:59 RBC 2.86 L (4.30-5.90) m/uL Hgb 9.4 L (13.0-17.5) gm/dL Hct 26.9 L (39.0-53.0) % Plt Count 113 L (150-450) k/uL Lymphocytes # 0.4 L (1.0-4.8) k/uL ABG pH (7.35-7.45) ABG pO2 (83-108) mmHg ABG HCO3 (21-25) mmol/L ABG Total CO2 27 H (19-24) mmol/L ABG O2 Saturation 97.1 H (94-97) % ABG Hematocrit (34.0-46.0) % ABG Potassium (3.4-4.5) mmol/L ABG Ionized Calcium (4.5-5.3) mg/dL ABG Glucose (75-99) mg/dL Hemoglobin (13.0-17.5) gm/dL Sodium (137-145) mmol/L BUN (9-20) mg/dL Creatinine (0.66-1.25) mg/dL Glucose (74-99) mg/dL POC Glucose (mg/dL) 118 H (70-110) mg/dL Calcium (8.4-10.2) mg/dL Ionized Calcium Teresa (4.5-5.3) mg/dL AST (17-59) U/L ALT (4-49) U/L Total Protein (6.3-8.2) g/dL Albumin (3.5-5.0) g/dL Arterial Blood Potassium (3.4-4.5) mmol/L Arterial Blood Glucose (75-99) mg/dL Crossmatch 10/17/23 10/17/23 10/18/23 Range/Units 21:56 22:56 00:11 RBC (4.30-5.90) m/uL Hgb (13.0-17.5) gm/dL Hct (39.0-53.0) % Plt Count (150-450) k/uL Lymphocytes # (1.0-4.8) k/uL ABG pH (7.35-7.45) ABG pO2 (83-108) mmHg ABG HCO3 (21-25) mmol/L ABG Total CO2 (19-24) mmol/L ABG O2 Saturation (94-97) % ABG Hematocrit (34.0-46.0) % ABG Potassium (3.4-4.5) mmol/L ABG Ionized Calcium (4.5-5.3) mg/dL ABG Glucose (75-99) mg/dL Hemoglobin (13.0-17.5) gm/dL Sodium (137-145) mmol/L BUN (9-20) mg/dL Creatinine (0.66-1.25) mg/dL Glucose (74-99) mg/dL POC Glucose (mg/dL) 116 H 126 H 127 H (70-110) mg/dL Calcium (8.4-10.2) mg/dL Ionized Calcium Teresa (4.5-5.3) mg/dL AST (17-59) U/L ALT (4-49) U/L Total Protein (6.3-8.2) g/dL Albumin (3.5-5.0) g/dL Arterial Blood Potassium (3.4-4.5) mmol/L Arterial Blood Glucose (75-99) mg/dL Crossmatch 10/18/23 10/18/23 10/18/23 Range/Units 03:24 04:15 04:15 RBC 2.80 L (4.30-5.90) m/uL Hgb 9.7 L (13.0-17.5) gm/dL Hct 26.4 L (39.0-53.0) % Plt Count 103 L (150-450) k/uL Lymphocytes # 0.6 L (1.0-4.8) k/uL ABG pH (7.35-7.45) ABG pO2 (83-108) mmHg ABG HCO3 (21-25) mmol/L ABG Total CO2 (19-24) mmol/L ABG O2 Saturation (94-97) % ABG Hematocrit (34.0-46.0) % ABG Potassium (3.4-4.5) mmol/L ABG Ionized Calcium (4.5-5.3) mg/dL ABG Glucose (75-99) mg/dL Hemoglobin (13.0-17.5) gm/dL Sodium 134 L (137-145) mmol/L BUN 61 H (9-20) mg/dL Creatinine 4.56 H (0.66-1.25) mg/dL Glucose 120 H (74-99) mg/dL POC Glucose (mg/dL) 119 H (70-110) mg/dL Calcium (8.4-10.2) mg/dL Ionized Calcium Teresa (4.5-5.3) mg/dL AST 75 H (17-59) U/L ALT (4-49) U/L Total Protein 6.0 L (6.3-8.2) g/dL Albumin 3.4 L (3.5-5.0) g/dL Arterial Blood Potassium (3.4-4.5) mmol/L Arterial Blood Glucose (75-99) mg/dL Crossmatch 10/18/23 10/18/23 10/18/23 Range/Units 04:15 05:45 05:47 RBC (4.30-5.90) m/uL Hgb (13.0-17.5) gm/dL Hct (39.0-53.0) % Plt Count (150-450) k/uL Lymphocytes # (1.0-4.8) k/uL ABG pH (7.35-7.45) ABG pO2 74 L (83-108) mmHg ABG HCO3 26 H (21-25) mmol/L ABG Total CO2 27 H (19-24) mmol/L ABG O2 Saturation (94-97) % ABG Hematocrit (34.0-46.0) % ABG Potassium (3.4-4.5) mmol/L ABG Ionized Calcium (4.5-5.3) mg/dL ABG Glucose (75-99) mg/dL Hemoglobin (13.0-17.5) gm/dL Sodium (137-145) mmol/L BUN (9-20) mg/dL Creatinine (0.66-1.25) mg/dL Glucose (74-99) mg/dL POC Glucose (mg/dL) 127 H 117 H (70-110) mg/dL Calcium (8.4-10.2) mg/dL Ionized Calcium Teresa (4.5-5.3) mg/dL AST (17-59) U/L ALT (4-49) U/L Total Protein (6.3-8.2) g/dL Albumin (3.5-5.0) g/dL Arterial Blood Potassium (3.4-4.5) mmol/L Arterial Blood Glucose (75-99) mg/dL Crossmatch
[2023-10-18 11:08] LABS: Glucose,Whole Blood 119 mg/dL (70-110)
[2023-10-18] MEDS: ACETAMINOPHEN IV (For NPO) 1,000 MG in EMPTY BAG 1 BAG IVPB STA (11:09)
--- NOTE | 2023-10-18 11:26 | P.NPCON ---
History of Present Illness - Reason for Consult end stage renal disease - History of Present Illness Patient is a 72-year-old male with history of coronary artery disease, end-stage renal disease maintained on hemodialysis on a Tuesday schedule. Patient is status post 2 vessel coronary artery bypass surgery postop day #1. Sedation is currently being weaned off. Patient is awake. There are plans for extubation today. Status post hemodialysis early this morning with UF of about 2 L. No pressors noted. Chest tubes noted. Patient tolerated treatment well. Review of Systems As per HPI Past Medical History Past Medical History: Blood Disorder, Coronary Artery Disease (CAD), Chest Pain / Angina, Heart Failure, COPD, Diabetes Mellitus, Dialysis, Hearing Disorder / Deafness, Hyperlipidemia, Hypertension, Myocardial Infarction (DE), Osteoarthritis (OA), Renal Disease, Sleep Apnea/CPAP/BIPAP Additional Past Medical History / Comment(s): has insulin pump and contiunuous blood glucose monitor,fell at home on Tuesday10-10-23"got dizzy"-no injury,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. Chronic renal failure, dialysis [facility] normally. Patient has insulin pump. Has CPAP, occasionally uses. Neuropathy in feet and hands. Poor hearing. Last Myocardial Infarction Date:: History of Any Multi-Drug Resistant Organisms: None Reported Past Surgical History: Cholecystectomy, Heart Catheterization, Heart Catheterization With Stent, Orthopedic Surgery Additional Past Surgical History / Comment(s): Shoulder surgery-no hardware, hemorrhoidectomy, eye surgery,4 cardiac stents,AV fistula left forearm Past Anesthesia/Blood Transfusion Reactions: No Reported Reaction Additional Past Anesthesia/Blood Transfusion Reaction / Comment(s): Never had a blood transfusion. Date of Last Stent Placement:: Smoking Status: Former smoker - Past Family History Father Family Medical History: Cancer Additional Family Medical History / Comment(s): Bladder cancer. Mother Family Medical History: Cancer, Diabetes Mellitus Additional Family Medical History / Comment(s): Pancreatic cancer. Medications and Allergies Home Medications Medication Instructions Recorded Confirmed Type Nitroglycerin Sl Tabs [Nitrostat] 0.4 mg SL Q5M PRN 03/03/14 10/17/23 History Ezetimibe [Zetia] 10 mg PO QAM 05/19/16 10/17/23 History Ferrous Sulfate [Iron (65 MG 325 mg PO DAILY 05/19/16 10/17/23 History Elemental)] Insulin Aspart (For Pump) [NovoLOG 0.01 unit SQ-PUMP CONTINUOUS 05/28/18 10/17/23 History (For Pump)] Pramipexole [Mirapex] 0.5 mg PO BID PRN 05/02/19 10/17/23 History Albuterol Inhaler [Ventolin Hfa 2 puff INHALATION RT-Q4H PRN 08/10/21 10/17/23 History Inhaler] Aspirin EC [Ecotrin Low Dose] 81 mg PO DAILY 02/21/22 10/17/23 History Glucagon Emergency Kit 1 mg IM ONCE PRN 02/21/22 10/17/23 History Escitalopram [Lexapro] 10 mg PO DAILY 01/01/23 10/17/23 History ALPRAZolam [Xanax] 0.5 mg PO HS PRN 06/17/23 10/17/23 History Cholecalciferol [Vitamin D3 (25 50 mcg PO DAILY 06/17/23 10/17/23 History Mcg = 1000 Iu)] Isosorbide Mononitrate [Isosorbide 30 mg PO DAILY 06/17/23 10/17/23 History Mononitrate ER] Rosuvastatin [Crestor] 10 mg PO HS 06/17/23 10/17/23 History Tamsulosin [Flomax] 0.4 mg PO HS 06/17/23 10/17/23 History Cetirizine HCl [Zyrtec] 10 mg PO DAILY 09/22/23 10/17/23 History Folic Acid/Vit B Complex and C 0.8 mg PO DAILY 09/22/23 10/17/23 History [Nephro-Pooja Tablet] Torsemide [Demadex] 40 mg PO SUMOWEFR 09/22/23 10/17/23 History Calcium Carbonate [Tums] 1,000 mg PO AC-TID 09/28/23 10/17/23 History Ranolazine [Ranexa] 500 mg PO Q12HR 10/14/23 10/17/23 History Allergies Allergy/AdvReac Type Severity Reaction Status Date / Time atorvastatin [From Lipitor] AdvReac jt and Verified 10/17/23 06:33 muscle pain baclofen AdvReac caused a Verified 10/17/23 06:33 fall Physical Exam Vitals: Vital Signs Temp Pulse Resp BP Pulse Ox FiO2 03/19/24 11:16 62 10/18/23 11:00 63 23 99 10/18/23 10:41 35 10/18/23 10:30 64 17 100 10/18/23 10:00 97.5 F L 63 10 L 100 10/18/23 09:30 61 20 100 10/18/23 09:00 55 L 18 100 10/18/23 08:43 52 L 10/18/23 08:33 35 10/18/23 08:30 56 L 17 100 10/18/23 08:00 96.6 F L 57 L 21 105/28 100 35 10/18/23 07:30 56 L 20 112/42 100 10/18/23 07:00 54 L 16 107/31 100 10/18/23 06:30 56 L 16 113/25 99 10/18/23 06:00 57 L 16 98 10/18/23 05:30 58 L 16 98 10/18/23 05:00 58 L 16 100 10/18/23 04:30 57 L 16 100 10/18/23 04:00 97.2 F L 57 L 16 102/27 100 35 10/18/23 03:30 57 L 16 102/27 100 10/18/23 03:26 35 10/18/23 03:00 56 L 16 106/27 99 10/18/23 02:30 57 L 16 99 10/18/23 02:00 56 L 16 111/37 98 10/18/23 01:30 56 L 16 99 10/18/23 01:00 57 L 16 115/31 99 10/18/23 00:30 57 L 16 100 10/18/23 00:00 97.0 F L 52 L 16 110/30 100 35 10/17/23 23:30 55 L 16 100 10/17/23 23:24 35 10/17/23 23:00 53 L 16 103/37 100 10/17/23 22:30 54 L 16 99 10/17/23 22:00 54 L 16 109/33 100 10/17/23 21:30 54 L 16 99 10/17/23 21:00 55 L 16 109/33 99 10/17/23 20:30 56 L 16 99 10/17/23 20:00 98.4 F 54 L 16 98 35 10/17/23 19:50 61 03/18/24 19:33 61 35 10/17/23 19:30 58 L 16 98 10/17/23 19:00 59 L 18 98 10/17/23 18:30 60 18 98 10/17/23 18:00 64 18 98 35 10/17/23 17:30 64 20 98 10/17/23 17:00 68 18 98 10/17/23 16:30 61 19 89/34 98 10/17/23 16:00 97.5 F L 56 L 18 98 35 10/17/23 15:45 59 L 21 98 10/17/23 15:36 60 10/17/23 15:30 61 16 100 35 10/17/23 15:24 57 L 10/17/23 15:20 35 10/17/23 15:15 62 22 100 10/17/23 15:00 62 21 100 10/17/23 14:45 62 19 100 50 10/17/23 14:39 50 10/17/23 14:30 58 L 21 100 10/17/23 14:15 60 18 100 10/17/23 14:00 61 18 110/35 100 10/17/23 13:45 96.6 F L 63 18 110/35 100 70 10/17/23 13:30 64 19 110/35 100 70 10/17/23 13:15 63 22 100 100 10/17/23 13:10 96.1 F L 62 18 100 10/17/23 13:05 62 19 110/35 100 10/17/23 13:00 61 20 110/35 100 10/17/23 12:50 60 17 100 10/17/23 12:49 100 10/17/23 12:47 100 10/17/23 12:46 60 Intake and Output 10/17/23 10/18/23 10/18/23 22:59 06:59 14:59 Intake Total 776.208 708.987 321.077 Output Total 335 383 63 Balance 441.208 325.987 258.077 Intake: IV 552 492 260 .9NS Cardiac Output 110 60 50 .9NS Pressure Bag 72 72 30 Lactated Ringers 1,000 ml 370 360 180 @ 50 mls/hr IV .Q20H [facility] Rx#:[id number] Intake, IV Titration 224.208 216.987 61.077 Amount Amiodarone 450 mg In 11.945 Dextrose 5% in Water 250 ml @ 0.5 MG/MIN 16.667 mls/hr IV .Q15H [facility] Rx#: [id number] Clevidipine Butyrate 25 1.266 mg In Empty Bag 1 bag @ 1 MG/HR 2 mls/hr IV .Q24H [facility] Rx#:[id number] Insulin Regular 100 unit 24.475 35.005 0 In Sodium Chloride 0.9% 100 ml @ Per Protocol IV .Q0M [facility] Rx#:[id number] Potassium Chloride 10 meq 100 In Water For Injection 1 100ml.bag @ 100 mls/hr IVPB Q1H [facility] Rx#: [id number] ceFAZolin 1,000 mg In 50 Sodium Chloride 0.9% 50 ml @ 100 mls/hr IV Q12H [facility] Rx#:[id number] propofoL 1,000 mg In 37.788 181.982 59.811 Empty Bag 1 bag @ Titrate IV .Q0M [facility] Rx#: [id number] Output: Chest Tube Drainage 175 138 38 Left adn Right Chest Tube 130 36 0 Mediastinal Chest Tube 45 102 38 Urine 160 245 25 Other: Voiding Method Indwelling Catheter Indwelling Catheter Indwelling Catheter Weight 105 kg ABP, PAP, CO, CI - Last 8 Hours Arterial Blood Pressure 120/44 Arterial Blood Pressure 140/40 Arterial Blood Pressure 130/35 Arterial Blood Pressure 118/34 Arterial Blood Pressure 111/32 Arterial Blood Pressure 115/35 Arterial Blood Pressure 116/35 Arterial Blood Pressure 113/34 Arterial Blood Pressure 112/33 Arterial Blood Pressure 113/32 Arterial Blood Pressure 121/33 Arterial Blood Pressure 94/48 Arterial Blood Pressure 122/34 Arterial Blood Pressure 122/34 Arterial Blood Pressure 120/34 Arterial Blood Pressure 110/34 Pulmonary Artery Pressure 44/20 Pulmonary Artery Pressure 50/19 Pulmonary Artery Pressure 46/16 Pulmonary Artery Pressure 36/13 Pulmonary Artery Pressure 35/14 Pulmonary Artery Pressure 37/13 Pulmonary Artery Pressure 37/14 Pulmonary Artery Pressure 38/14 Pulmonary Artery Pressure 37/14 Pulmonary Artery Pressure 39/14 Pulmonary Artery Pressure 43/16 Pulmonary Artery Pressure 59/26 Pulmonary Artery Pressure 43/15 Pulmonary Artery Pressure 49/18 Pulmonary Artery Pressure 47/19 Pulmonary Artery Pressure 47/18 Cardiac Output 4.9 Cardiac Output 4.9 Cardiac Output 6.0 Cardiac Index 2.3 Cardiac Index 2.3 Cardiac Index 2.8 Patient is awake, He remains intubated Examination of the heart S1 and S2 Examination of the lungs bilateral breath sounds are heard Abdomen is soft Examination lower extremity shows no significant edema Results - Lab Results Most recent lab results ABG pH 7.41 (7.35-7.45) 10/18/23 05:45 ABG pCO2 41 mmHg (35-45) 10/18/23 05:45 ABG pO2 74 mmHg (83-108) L 10/18/23 05:45 ABG HCO3 26 mmol/L (21-25) H 10/18/23 05:45 ABG O2 Saturation 95.0 % (94-97) 10/18/23 05:45 Calcium 8.4 mg/dL (8.4-10.2) 10/18/23 04:15 Magnesium 1.8 mg/dL (1.6-2.3) 10/18/23 04:15 10/18/23 04:15 10/18/23 04:15 Assessment and Plan Assessment: 1. End-stage renal disease on hemodialysis on a Tuesday schedule 2. Volume overload, currently improved post hemodialysis this morning 3. Status post coronary artery bypass surgery 2 3. Anemia multifactorial including anemia of chronic disease and postop state. Currently stable. Will maintain patient on Aranesp. Plan: Add Aranesp Maintain patient on hemodialysis on a Tuesday schedule unless extra treatment needed tomorrow for volume overload. Thank you for the consultation. We will continue to follow the patient with you during his hospitalization.
[2023-10-18 11:29] LABS: ABG Base Excess 3.2 mmol/L; ABG HCO3 27 mmol/L (21-25); ABG PCO2 37 mmHg (35-45); ABG PH 7.47 (7.35-7.45); ABG PO2 81 mmHg (83-108); ABG TCO2 28 mmol/L (19-24); Allen Test Performed? Yes
[2023-10-18 11:32] LABS: ABG Oxygen Saturation 96.5 % (94-97)
[2023-10-18 12:06] LABS: Glucose,Whole Blood 111 mg/dL (70-110)
[2023-10-18 12:57] LABS: Glucose,Whole Blood 130 mg/dL (70-110)
--- NOTE | 2023-10-18 13:30 | P.PN ---
Subjective Progress Note Date: 10/18/23 Principal diagnosis: Coronary artery disease. Past medical history significant for stable angina, coronary artery disease with previous PCI, hypertension, hyperlipidemia, insulin-dependent diabetes mellitus, chronic diastolic heart failure, mild cardiomyopathy with ejection fraction of 50%, end-stage renal disease on hemodialysis Tuesdays, and Saturdays, history of myocardial infarction in 2006, chronic obstructive pulmonary disease, obstructive sleep apnea with no ncompliance of use of his CPAP, peripheral neuropathy, remote history of smoking quit in 1981, osteoarthritis and occasional constipation. POD #1 Off pump coronary artery bypass grafting x 2. Left internal thoracic artery (in-situ) to left anterior descending coronary artery. Saphenous vein from aorta to ramus intermedius, Coronary patch angioplasty to ramus intermedius, Left atrial appendage ligation using #35mm AtriClip, Endoscopic left greater saphenous vein harvest, intraoperative transesophageal echocardiogram performed by anesthesia. Postoperative acute blood loss anemia, expected given hemodilution. The patient was seen and examined at his bedside in the intensive care unit today October 18, 2023. The patient remains intubated with mechanical ventilator support, oxygen saturations on current mechanical ventilator settings are 97%. Current mechanical ventilator settings are assist-control 16, tidal volume 450, FiO2 35% and a PEEP of 5. Left IJ cordis and [place]-Pb catheter remains in place with current hemodynamic showing a cardiac output of 5.0, cardiac index 2.3, PA pressures 32/14 and CVP 8 mmHg. Nitroglycerin drip is infusing at 5 mcg/min. Yesterday the patient was given a spontaneous breathing trial but became very restless, agitated and tachypneic, Dr. Potter was notified and the trial was aborted. The patient is currently receiving hemodialysis this morning with a total of 2 L ultrafiltration. Bedside telemetry is showing sinus bradycardia with a heart rate of 56 bpm, with occasional ventricular paced beats. Amiodarone is currently being held. Mediastinal, left and right pleural chest tubes remain in place to low continuous wall suction -20 cm H2O. No air leak is present. Draining thin serosanguineous drainage. Chest x-ray and laboratory results were reviewed. He remains sedated on propofol drip at 30 mcg/kg/min. Objective - Vital Signs Vital signs: Vital Signs Temp 97.2 F L 10/18/23 04:00 Pulse 54 L 10/18/23 07:00 Resp 16 10/18/23 07:00 BP 107/31 10/18/23 07:00 Pulse Ox 100 10/18/23 07:00 FiO2 35 10/18/23 04:00 Intake & Output 10/17/23 10/18/23 10/18/23 18:59 06:59 18:59 Intake Total 259.805 0959.475 54 Output Total 740 568 13 Balance 113.666 477.475 41 Weight 105 kg Intake: IV 457 778 54 .9NS Cardiac Output 60 130 .9NS Pressure Bag 54 108 9 Lactated Ringers 1,000 ml 290 540 45 @ 50 mls/hr IV .Q20H [facility] Rx#:[id number] Intake, IV Titration 396.666 267.475 Amount Amiodarone 450 mg In 11.945 Dextrose 5% in Water 250 ml @ 0.5 MG/MIN 16.667 mls/hr IV .Q15H [facility] Rx#: [id number] Calcium Gluconate in NaCl 100 1 gm In Saline 1 100ml. bag @ 100 mls/hr IVPB ONCE ONE Rx#:[id number] Insulin Regular 100 unit 15.183 50.525 In Sodium Chloride 0.9% 100 ml @ Per Protocol IV .Q0M [facility] Rx#:[id number] Potassium Chloride 10 meq 200 In Water For Injection 1 100ml.bag @ 100 mls/hr IVPB Q1H [facility] Rx#: [id number] ceFAZolin 1,000 mg In 50 Sodium Chloride 0.9% 50 ml @ 100 mls/hr IV Q12H [facility] Rx#:[id number] propofoL 1,000 mg In 31.483 205.005 Empty Bag 1 bag @ Titrate IV .Q0M [facility] Rx#: [id number] Output: Chest Tube Drainage 150 233 8 Left adn Right Chest Tube 100 111 0 Mediastinal Chest Tube 50 122 8 Urine 190 335 5 Estimated Blood Loss 400 Other: Voiding Method Indwelling Catheter Indwelling Catheter ABP, PAP, CO, CI - Last Documented Arterial Blood Pressure 112/33 Pulmonary Artery Pressure 37/14 Cardiac Output 6.0 Cardiac Index 2.8 - Exam CONSTITUTIONAL: Remains intubated with mechanical ventilator support and sedated on propofol drip at 30 mcg/kg/min, appears comfortable, cooperative, no apparent acute distress. HEENT: Neck is supple, no JVD, no lymphadenopathy. Right IJ Cordis and [place]- Pb catheter in place and functioning. RESPIRATORY: Lungs sounds essentially clear throughout, diminished to his bilateral bases. Respirations are symmetrical and nonlabored with mechanical ventilator support. Remains intubated with mechanical ventilator support, oxygen saturations are 97% with current mechanical ventilator settings, assist- control 16, TV 450, FiO2 35% and a PEEP of 5. Strong cough. CARDIOVASCULAR: Regular rhythm and rate. S1 and S2 present, negative for S3, gallop or murmur. Sternum is stable. Palpable peripheral pulses bilaterally. No calf pain or tenderness noted. Heart hugger in place. Knee-high ENMA hose and sequential compression devices in place to his bilateral lower extremities. GASTROINTESTINAL: Abdomen soft, nontender, nondistended. Hypoactive bowel sounds present 4 quadrants. Tolerating diet. Passing flatus. No guarding or rigidity. GENITOURINARY: Tomlinson present draining clear, yellow urine. Urine output 245 mL in the last 8 hours. INTEGUMENTARY: Skin is warm and dry with no evidence of clubbing or cyanosis. Midline sternal incision clean dry and well approximated, covered with dry intact dressing. Left lower extremity EVH sites well approximated without redness or drainage. NEUROLOGIC: Unable to accurately assess at this time as the patient remains intubated and sedated with propofol drip. MUSKULOSKELETAL: Able to move all extremities, strength equal bilaterally, generalized weakness. PSYCHIATRIC: Unable to accurately assess at this time as the patient remains intubated and sedated with propofol drip. INVASIVE LINES AND TUBES: Mediastinal/left/right pleural chest tubes present and connected to low continuous wall suction, no air leaks present. Mediastinal tube with 100 mL of thin serosanguineous drainage overnight, 180 mL output in the last 24 hours. Left/right pleural chest tubes with 40 mL of thin serosanguineous drainage overnight, 210 mL output in the last 24 hours. Ventricular epicardial pacemaker wires present, connected to generator, VVI backup rate 50 bpm. Right internal jugular [place]/Cordis, right radial arterial line present. Last CO 5.0, CI 2.3, PA 32/14 and CVP 8 mmHg. - Allied health notes Allied health notes reviewed: nursing - Labs CBC & Chem 7: 10/18/23 04:15 03/19/24 04:15 Labs: Abnormal Lab Results - Last 24 Hours (Table) 10/14/23 10/17/23 10/17/23 Range/Units 11:31 08:57 10:04 RBC (4.30-5.90) m/uL Hgb (13.0-17.5) gm/dL Hct (39.0-53.0) % Plt Count (150-450) k/uL Lymphocytes # (1.0-4.8) k/uL ABG pH 7.46 H (7.35-7.45) ABG pO2 132 H (83-108) mmHg ABG HCO3 29 H 27 H (21-25) mmol/L ABG Total CO2 (19-24) mmol/L ABG O2 Saturation 98.6 H 98.0 H (94-97) % ABG Hematocrit 32 L 28 L (34.0-46.0) % ABG Potassium 4.8 H (3.4-4.5) mmol/L ABG Ionized Calcium 4.3 L 4.3 L (4.5-5.3) mg/dL ABG Glucose 194 H 201 H (75-99) mg/dL Hemoglobin 10.3 L 9.0 L (13.0-17.5) gm/dL Sodium (137-145) mmol/L BUN (9-20) mg/dL Creatinine (0.66-1.25) mg/dL Glucose (74-99) mg/dL POC Glucose (mg/dL) (70-110) mg/dL Calcium (8.4-10.2) mg/dL Ionized Calcium Teresa (4.5-5.3) mg/dL AST (17-59) U/L ALT (4-49) U/L Total Protein (6.3-8.2) g/dL Albumin (3.5-5.0) g/dL Arterial Blood Potassium 4.8 H (3.4-4.5) mmol/L Arterial Blood Glucose 194 H 201 H (75-99) mg/dL Crossmatch See Detail 10/17/23 10/17/23 10/17/23 Range/Units 10:34 11:00 12:44 RBC 2.74 L (4.30-5.90) m/uL Hgb 8.9 L D (13.0-17.5) gm/dL Hct 25.6 L (39.0-53.0) % Plt Count 100 L (150-450) k/uL Lymphocytes # (1.0-4.8) k/uL ABG pH 7.48 H (7.35-7.45) ABG pO2 184 H 174 H (83-108) mmHg ABG HCO3 26 H 26 H (21-25) mmol/L ABG Total CO2 (19-24) mmol/L ABG O2 Saturation 99.2 H 99.2 H (94-97) % ABG Hematocrit 28 L 29 L (34.0-46.0) % ABG Potassium (3.4-4.5) mmol/L ABG Ionized Calcium 4.3 L 4.3 L (4.5-5.3) mg/dL ABG Glucose 186 H 175 H (75-99) mg/dL Hemoglobin 9.2 L 9.3 L (13.0-17.5) gm/dL Sodium (137-145) mmol/L BUN (9-20) mg/dL Creatinine (0.66-1.25) mg/dL Glucose (74-99) mg/dL POC Glucose (mg/dL) (70-110) mg/dL Calcium (8.4-10.2) mg/dL Ionized Calcium Teresa (4.5-5.3) mg/dL AST (17-59) U/L ALT (4-49) U/L Total Protein (6.3-8.2) g/dL Albumin (3.5-5.0) g/dL Arterial Blood Potassium (3.4-4.5) mmol/L Arterial Blood Glucose 186 H 175 H (75-99) mg/dL Crossmatch 10/17/23 10/17/23 10/17/23 Range/Units 12:44 12:44 13:26 RBC (4.30-5.90) m/uL Hgb (13.0-17.5) gm/dL Hct (39.0-53.0) % Plt Count (150-450) k/uL Lymphocytes # (1.0-4.8) k/uL ABG pH (7.35-7.45) ABG pO2 277 H (83-108) mmHg ABG HCO3 28 H (21-25) mmol/L ABG Total CO2 29 H (19-24) mmol/L ABG O2 Saturation 99.2 H (94-97) % ABG Hematocrit (34.0-46.0) % ABG Potassium (3.4-4.5) mmol/L ABG Ionized Calcium (4.5-5.3) mg/dL ABG Glucose (75-99) mg/dL Hemoglobin (13.0-17.5) gm/dL Sodium (137-145) mmol/L BUN 57 H (9-20) mg/dL Creatinine 3.97 H (0.66-1.25) mg/dL Glucose 121 H (74-99) mg/dL POC Glucose (mg/dL) 125 H (70-110) mg/dL Calcium 8.2 L (8.4-10.2) mg/dL Ionized Calcium Teresa 4.4 L (4.5-5.3) mg/dL AST 162 H (17-59) U/L ALT 51 H (4-49) U/L Total Protein 6.2 L (6.3-8.2) g/dL Albumin (3.5-5.0) g/dL Arterial Blood Potassium (3.4-4.5) mmol/L Arterial Blood Glucose (75-99) mg/dL Crossmatch 10/17/23 10/17/23 10/17/23 Range/Units 15:46 17:13 18:11 RBC 2.72 L (4.30-5.90) m/uL Hgb 8.8 L (13.0-17.5) gm/dL Hct 25.4 L (39.0-53.0) % Plt Count 106 L (150-450) k/uL Lymphocytes # 0.9 L (1.0-4.8) k/uL ABG pH (7.35-7.45) ABG pO2 (83-108) mmHg ABG HCO3 (21-25) mmol/L ABG Total CO2 (19-24) mmol/L ABG O2 Saturation (94-97) % ABG Hematocrit (34.0-46.0) % ABG Potassium (3.4-4.5) mmol/L ABG Ionized Calcium (4.5-5.3) mg/dL ABG Glucose (75-99) mg/dL Hemoglobin (13.0-17.5) gm/dL Sodium (137-145) mmol/L BUN (9-20) mg/dL Creatinine (0.66-1.25) mg/dL Glucose (74-99) mg/dL POC Glucose (mg/dL) 136 H 147 H (70-110) mg/dL Calcium (8.4-10.2) mg/dL Ionized Calcium Teresa (4.5-5.3) mg/dL AST (17-59) U/L ALT (4-49) U/L Total Protein (6.3-8.2) g/dL Albumin (3.5-5.0) g/dL Arterial Blood Potassium (3.4-4.5) mmol/L Arterial Blood Glucose (75-99) mg/dL Crossmatch 10/17/23 10/17/23 10/17/23 Range/Units 18:21 18:57 18:59 RBC 2.86 L (4.30-5.90) m/uL Hgb 9.4 L (13.0-17.5) gm/dL Hct 26.9 L (39.0-53.0) % Plt Count 113 L (150-450) k/uL Lymphocytes # 0.4 L (1.0-4.8) k/uL ABG pH (7.35-7.45) ABG pO2 (83-108) mmHg ABG HCO3 (21-25) mmol/L ABG Total CO2 27 H (19-24) mmol/L ABG O2 Saturation 97.1 H (94-97) % ABG Hematocrit (34.0-46.0) % ABG Potassium (3.4-4.5) mmol/L ABG Ionized Calcium (4.5-5.3) mg/dL ABG Glucose (75-99) mg/dL Hemoglobin (13.0-17.5) gm/dL Sodium (137-145) mmol/L BUN (9-20) mg/dL Creatinine (0.66-1.25) mg/dL Glucose (74-99) mg/dL POC Glucose (mg/dL) 118 H (70-110) mg/dL Calcium (8.4-10.2) mg/dL Ionized Calcium Teresa (4.5-5.3) mg/dL AST (17-59) U/L ALT (4-49) U/L Total Protein (6.3-8.2) g/dL Albumin (3.5-5.0) g/dL Arterial Blood Potassium (3.4-4.5) mmol/L Arterial Blood Glucose (75-99) mg/dL Crossmatch 10/17/23 10/17/23 10/18/23 Range/Units 21:56 22:56 00:11 RBC (4.30-5.90) m/uL Hgb (13.0-17.5) gm/dL Hct (39.0-53.0) % Plt Count (150-450) k/uL Lymphocytes # (1.0-4.8) k/uL ABG pH (7.35-7.45) ABG pO2 (83-108) mmHg ABG HCO3 (21-25) mmol/L ABG Total CO2 (19-24) mmol/L ABG O2 Saturation (94-97) % ABG Hematocrit (34.0-46.0) % ABG Potassium (3.4-4.5) mmol/L ABG Ionized Calcium (4.5-5.3) mg/dL ABG Glucose (75-99) mg/dL Hemoglobin (13.0-17.5) gm/dL Sodium (137-145) mmol/L BUN (9-20) mg/dL Creatinine (0.66-1.25) mg/dL Glucose (74-99) mg/dL POC Glucose (mg/dL) 116 H 126 H 127 H (70-110) mg/dL Calcium (8.4-10.2) mg/dL Ionized Calcium Teresa (4.5-5.3) mg/dL AST (17-59) U/L ALT (4-49) U/L Total Protein (6.3-8.2) g/dL Albumin (3.5-5.0) g/dL Arterial Blood Potassium (3.4-4.5) mmol/L Arterial Blood Glucose (75-99) mg/dL Crossmatch 10/18/23 10/18/23 10/18/23 Range/Units 03:24 04:15 04:15 RBC 2.80 L (4.30-5.90) m/uL Hgb 9.7 L (13.0-17.5) gm/dL Hct 26.4 L (39.0-53.0) % Plt Count 103 L (150-450) k/uL Lymphocytes # 0.6 L (1.0-4.8) k/uL ABG pH (7.35-7.45) ABG pO2 (83-108) mmHg ABG HCO3 (21-25) mmol/L ABG Total CO2 (19-24) mmol/L ABG O2 Saturation (94-97) % ABG Hematocrit (34.0-46.0) % ABG Potassium (3.4-4.5) mmol/L ABG Ionized Calcium (4.5-5.3) mg/dL ABG Glucose (75-99) mg/dL Hemoglobin (13.0-17.5) gm/dL Sodium 134 L (137-145) mmol/L BUN 61 H (9-20) mg/dL Creatinine 4.56 H (0.66-1.25) mg/dL Glucose 120 H (74-99) mg/dL POC Glucose (mg/dL) 119 H (70-110) mg/dL Calcium (8.4-10.2) mg/dL Ionized Calcium Teresa (4.5-5.3) mg/dL AST 75 H (17-59) U/L ALT (4-49) U/L Total Protein 6.0 L (6.3-8.2) g/dL Albumin 3.4 L (3.5-5.0) g/dL Arterial Blood Potassium (3.4-4.5) mmol/L Arterial Blood Glucose (75-99) mg/dL Crossmatch 10/18/23 10/18/23 10/18/23 Range/Units 04:15 05:45 05:47 RBC (4.30-5.90) m/uL Hgb (13.0-17.5) gm/dL Hct (39.0-53.0) % Plt Count (150-450) k/uL Lymphocytes # (1.0-4.8) k/uL ABG pH (7.35-7.45) ABG pO2 74 L (83-108) mmHg ABG HCO3 26 H (21-25) mmol/L ABG Total CO2 27 H (19-24) mmol/L ABG O2 Saturation (94-97) % ABG Hematocrit (34.0-46.0) % ABG Potassium (3.4-4.5) mmol/L ABG Ionized Calcium (4.5-5.3) mg/dL ABG Glucose (75-99) mg/dL Hemoglobin (13.0-17.5) gm/dL Sodium (137-145) mmol/L BUN (9-20) mg/dL Creatinine (0.66-1.25) mg/dL Glucose (74-99) mg/dL POC Glucose (mg/dL) 127 H 117 H (70-110) mg/dL Calcium (8.4-10.2) mg/dL Ionized Calcium Teresa (4.5-5.3) mg/dL AST (17-59) U/L ALT (4-49) U/L Total Protein (6.3-8.2) g/dL Albumin (3.5-5.0) g/dL Arterial Blood Potassium (3.4-4.5) mmol/L Arterial Blood Glucose (75-99) mg/dL Crossmatch - Imaging and Cardiology Chest x-ray: report reviewed, image reviewed Assessment and Plan Assessment: Coronary artery disease with left main disease, 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, status post two-vessel coronary artery bypass grafting Chronic diastolic heart failure Mild cardiomyopathy with an ejection fraction of 50% History of myocardial infarction Chronic kidney disease, on hemodialysis Tuesdays and Saturdays Hypertension Hyperlipidemia Insulin-dependent diabetes mellitus, with a preoperative hemoglobin A1c of 7.8% Chronic fatigue COPD with a preoperative FEV1 78% of predicted value with a base volume of 2.01 Obstructive sleep apnea, noncompliant with CPAP use History of constipation Remote history of nicotine dependence, quit smoking 1982 Neuropathy Orthostatic hypotension Plan: Continue aspirin, statin, Plavix and beta-narcisa with hold parameters. Increase metoprolol to tartrate as tolerated. Continue to hold amiodarone due to bradycardia. Mechanical ventilator management per pulmonology, wean and extubate when able, weaning parameters per Dr. Potter once hemodialysis is finished. Once extubated increase activity as tolerated. PT/OT/cardiac rehab consulted. Will monitor daily labs and chest x-rays. Electrolyte replacement per protocol Continue chest tubes for another 24 hours, with strict and accurate I's and O's. Dialysis management per nephrology recommendations. Pain control per current as needed regimen. Avoid nephrotoxic agents. Continue Tomlinson catheter for another 24 hours, continue to record strict accurate intake and output Insulin management per internal medicine, patient should remain on continuous IV insulin for minimum of 48 hours, then may transition to subcutaneous per protocol GI/DVT prophylaxis. Continue [place]-Pb catheter with hemodynamic monitoring. Daily weights. More recommendations to follow based on patient's clinical course. Time with Patient: Greater than 30
[2023-10-18 14:12] LABS: Glucose,Whole Blood 113 mg/dL (70-110)
--- NOTE | 2023-10-18 14:50 | P.CRDCN ---
History of Present Illness History of present illness: HISTORY OF PRESENTING ILLNESS Patient is pleasant 72-year-old male with history of diabetes mellitus type 2, hypertension, hyperlipidemia, CAD with previous PCI, end-stage renal disease on hemodialysis, chronic diastolic heart failure, remote tobacco abuse, COPD, obstructive sleep apnea, osteoarthritis. Patient follows in the office with myself. He has been having issues with fatigue as well as chest pain and shortness breath. Initially much of his issues were related to heart failure and eventually underwent dialysis with significant amount of fluid removal and had some improvement. Unfortunately he continued to have significant and worsening dyspnea on exertion and repeat heart catheterization that showed progression of left main disease and therefore recommended bypass surgery. Patient underwent successful off-pump CABG on 10/16 with a TIAN to LAD and SVG to ramus as well as left atrial appendage clip. He was placed on amiodarone per protocol however did have some bradycardia intermittently. He was unable to be extubated secondary to fluid retention and did have dialysis this morning with approximately 2 L taken off with better oxygenation and able to be extubated at approximately noon. He currently admits to feeling significantly sore however otherwise no significant chest pain or shortness breath. Blood work today creatinine 4.5, AST 75, ALT 33, hemoglobin 9.7, platelets 103. REVIEW OF SYSTEMS At the time of my exam: CONSTITUTIONAL: Denies fever or chills. CARDIOVASCULAR: Denies chest pain, +chronic shortness of breath, no orthopnea, PND or palpitations. RESPIRATORY: Denies cough. GASTROINTESTINAL: Denies abdominal pain, diarrhea, constipation, nausea or vomiting. MUSCULOSKELETAL: Denies myalgias. NEUROLOGIC: Denies numbness, tingling or weakness. ENDOCRINE: Denies fatigue, weight change, polydipsia or polyurina. GENITOURINARY: Denies burning, hematuria or urgency with micturation. HEMATOLOGIC: Denies history of anemia or bleeding. PHYSICAL EXAMINATION Vital signs reviewed. CONSTITUTIONAL: No apparent distress. HEENT: Head is normocephalic. Pupils are equal, round. Sclerae anicteric. Mucous membranes of the mouth are moist. No JVD. No carotid bruit. CHEST EXAMINATION: Lungs are clear to auscultation. No chest wall tenderness is noted on palpation or with deep breathing. HEART EXAMINATION: Regular rate and rhythm. S1, S2 heard. No murmurs, gallops or rub. ABDOMEN: Soft, nontender. Positive bowel sounds. EXTREMITIES: 2+ peripheral pulses, no lower extremity edema and no calf tenderness. NEUROLOGIC EXAMINATION: Patient is awake, alert and oriented x3. ASSESSMENT 1. CAD status post previous PCI and most recently status post TIAN to LAD, SVG to ramus 10/16 2. Hypertension 3. Acute on chronic diastolic heart failure 4. End-stage renal disease on hemodialysis 5. Anemia 6. Thrombocytopenia 7. Diabetes mellitus type 2 8. Obstructive sleep apnea and PLAN Patient currently recovering from bypass. His extubation was delayed likely related to heart failure and appears better with 2 L taken off during dialysis. Continue to monitor fluid status. Continue with current supportive care. Further recommendations to follow. Past Medical History Past Medical History: Blood Disorder, Coronary Artery Disease (CAD), Chest Pain / Angina, Heart Failure, COPD, Diabetes Mellitus, Dialysis, Hearing Disorder / Deafness, Hyperlipidemia, Hypertension, Myocardial Infarction (CT), Ost eoarthritis (OA), Renal Disease, Sleep Apnea/CPAP/BIPAP Additional Past Medical History / Comment(s): has insulin pump and contiunuous blood glucose monitor,fell at home on Tuesday10-10-23"got dizzy"-no injury,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. Chronic renal failure, dialysis [facility] normally. Patient has insulin pump. Has CPAP, occasionally uses. Neuropathy in feet and hands. Poor hearing. Last Myocardial Infarction Date:: History of Any Multi-Drug Resistant Organisms: None Reported Past Surgical History: Cholecystectomy, Heart Catheterization, Heart Catheterization With Stent, Orthopedic Surgery Additional Past Surgical History / Comment(s): Shoulder surgery-no hardware, hemorrhoidectomy, eye surgery,4 cardiac stents,AV fistula left forearm Past Anesthesia/Blood Transfusion Reactions: No Reported Reaction Additional Past Anesthesia/Blood Transfusion Reaction / Comment(s): Never had a blood transfusion. Date of Last Stent Placement:: Smoking Status: Former smoker - Past Family History Father Family Medical History: Cancer Additional Family Medical History / Comment(s): Bladder cancer. Mother Family Medical History: Cancer, Diabetes Mellitus Additional Family Medical History / Comment(s): Pancreatic cancer. Medications and Allergies Home Medications Medication Instructions Recorded Confirmed Type Nitroglycerin Sl Tabs [Nitrostat] 0.4 mg SL Q5M PRN 03/03/14 10/17/23 History Ezetimibe [Zetia] 10 mg PO QAM 05/19/16 10/17/23 History Ferrous Sulfate [Iron (65 MG 325 mg PO DAILY 05/19/16 10/17/23 History Elemental)] Insulin Aspart (For Pump) [NovoLOG 0.01 unit SQ-PUMP CONTINUOUS 05/28/18 10/17/23 History (For Pump)] Pramipexole [Mirapex] 0.5 mg PO BID PRN 05/02/19 10/17/23 History Albuterol Inhaler [Ventolin Hfa 2 puff INHALATION RT-Q4H PRN 08/10/21 10/17/23 History Inhaler] Aspirin EC [Ecotrin Low Dose] 81 mg PO DAILY 02/21/22 10/17/23 History Glucagon Emergency Kit 1 mg IM ONCE PRN 02/21/22 10/17/23 History Escitalopram [Lexapro] 10 mg PO DAILY 01/01/23 10/17/23 History ALPRAZolam [Xanax] 0.5 mg PO HS PRN 06/17/23 10/17/23 History Cholecalciferol [Vitamin D3 (25 50 mcg PO DAILY 06/17/23 10/17/23 History Mcg = 1000 Iu)] Isosorbide Mononitrate [Isosorbide 30 mg PO DAILY 06/17/23 10/17/23 History Mononitrate ER] Rosuvastatin [Crestor] 10 mg PO HS 06/17/23 10/17/23 History Tamsulosin [Flomax] 0.4 mg PO HS 06/17/23 10/17/23 History Cetirizine HCl [Zyrtec] 10 mg PO DAILY 09/22/23 10/17/23 History Folic Acid/Vit B Complex and C 0.8 mg PO DAILY 09/22/23 10/17/23 History [Nephro-Pooja Tablet] Torsemide [Demadex] 40 mg PO SUMOWEFR 09/22/23 10/17/23 History Calcium Carbonate [Tums] 1,000 mg PO AC-TID 09/28/23 10/17/23 History Ranolazine [Ranexa] 500 mg PO Q12HR 10/14/23 10/17/23 History Allergies Allergy/AdvReac Type Severity Reaction Status Date / Time atorvastatin [From Lipitor] AdvReac jt and Verified 10/17/23 06:33 muscle pain baclofen AdvReac caused a Verified 10/17/23 06:33 fall Physical Exam Vitals: Vital Signs Temp Pulse Pulse Resp BP BP Pulse Ox 10/18/23 14:00 67 17 100 10/18/23 13:30 65 16 120/87 99 10/18/23 13:00 64 18 120/87 100 10/18/23 12:30 62 16 120/87 100 10/18/23 12:00 98.4 F 61 17 120/87 100 10/18/23 11:43 101.2 F H 55 L 22 123/40 10/18/23 11:37 97 10/18/23 11:30 61 20 100 10/18/23 11:27 61 10/18/23 11:16 62 10/18/23 11:00 63 23 99 10/18/23 10:41 10/18/23 10:30 64 17 100 10/18/23 10:00 97.5 F L 63 10 L 100 10/18/23 09:30 61 20 100 10/18/23 09:00 55 L 18 100 10/18/23 08:43 52 L 10/18/23 08:33 10/18/23 08:30 56 L 17 100 10/18/23 08:00 96.6 F L 57 L 21 105/28 100 10/18/23 07:30 56 L 20 112/42 100 10/18/23 07:00 54 L 16 107/31 100 10/18/23 06:30 56 L 16 113/25 99 10/18/23 06:00 57 L 16 98 10/18/23 05:30 58 L 16 98 10/18/23 05:00 58 L 16 100 10/18/23 04:30 57 L 16 100 10/18/23 04:00 97.2 F L 57 L 16 102/27 100 10/18/23 03:30 57 L 16 102/27 100 10/18/23 03:26 10/18/23 03:00 56 L 16 106/27 99 10/18/23 02:30 57 L 16 99 10/18/23 02:00 56 L 16 111/37 98 10/18/23 01:30 56 L 16 99 10/18/23 01:00 57 L 16 115/31 99 10/18/23 00:30 57 L 16 100 03/19/24 00:00 97.0 F L 52 L 16 110/30 100 10/17/23 23:30 55 L 16 100 10/17/23 23:24 10/17/23 23:00 53 L 16 103/37 100 10/17/23 22:30 54 L 16 99 10/17/23 22:00 54 L 16 109/33 100 10/17/23 21:30 54 L 16 99 10/17/23 21:00 55 L 16 109/33 99 10/17/23 20:30 56 L 16 99 10/17/23 20:00 98.4 F 54 L 16 98 10/17/23 19:50 61 10/17/23 19:33 61 10/17/23 19:30 58 L 16 98 10/17/23 19:00 59 L 18 98 10/17/23 18:30 60 18 98 10/17/23 18:00 64 18 98 10/17/23 17:30 64 20 98 10/17/23 17:00 68 18 98 10/17/23 16:30 61 19 89/34 98 10/17/23 16:00 97.5 F L 56 L 18 98 10/17/23 15:45 59 L 21 98 10/17/23 15:36 60 10/17/23 15:30 61 16 100 10/17/23 15:24 57 L 10/17/23 15:20 10/17/23 15:15 62 22 100 10/17/23 15:00 62 21 100 FiO2 10/18/23 14:00 10/18/23 13:30 10/18/23 13:00 10/18/23 12:30 10/18/23 12:00 10/18/23 11:43 10/18/23 11:37 10/18/23 11:30 10/18/23 11:27 10/18/23 11:16 10/18/23 11:00 10/18/23 10:41 35 10/18/23 10:30 10/18/23 10:00 10/18/23 09:30 10/18/23 09:00 10/18/23 08:43 10/18/23 08:33 35 10/18/23 08:30 10/18/23 08:00 35 10/18/23 07:30 10/18/23 07:00 10/18/23 06:30 10/18/23 06:00 10/18/23 05:30 10/18/23 05:00 10/18/23 04:30 10/18/23 04:00 35 10/18/23 03:30 10/18/23 03:26 35 10/18/23 03:00 10/18/23 02:30 10/18/23 02:00 10/18/23 01:30 10/18/23 01:00 10/18/23 00:30 10/18/23 00:00 35 10/17/23 23:30 10/17/23 23:24 35 10/17/23 23:00 10/17/23 22:30 10/17/23 22:00 10/17/23 21:30 10/17/23 21:00 10/17/23 20:30 10/17/23 20:00 35 10/17/23 19:50 10/17/23 19:33 35 10/17/23 19:30 10/17/23 19:00 10/17/23 18:30 10/17/23 18:00 35 10/17/23 17:30 10/17/23 17:00 10/17/23 16:30 10/17/23 16:00 35 10/17/23 15:45 10/17/23 15:36 10/17/23 15:30 35 10/17/23 15:24 10/17/23 15:20 35 10/17/23 15:15 10/17/23 15:00 Intake and Output 10/17/23 10/18/23 10/18/23 22:59 06:59 14:59 Intake Total 776.208 696.606 9535.040 Output Total 436 922 3555 Balance 441.208 325.987 -1457.960 Intake: IV 552 492 472 .9NS Cardiac Output 110 60 90 .9NS Pressure Bag 72 72 42 Lactated Ringers 1,000 ml 370 360 340 @ 50 mls/hr IV .Q20H [facility] Rx#:[id number] Intake, IV Titration 224.208 216.987 198.040 Amount ACETAMINOPHEN IV (For NPO 100 ) 1,000 mg In Empty Bag 1 bag @ 400 mls/hr IVPB ONCE STA Rx#:[id number] Amiodarone 450 mg In 11.945 Dextrose 5% in Water 250 ml @ 0.5 MG/MIN 16.667 mls/hr IV .Q15H [facility] Rx#: [id number] Clevidipine Butyrate 25 1.266 mg In Empty Bag 1 bag @ 1 MG/HR 2 mls/hr IV .Q24H [facility] Rx#:[id number] Dexmedetomidine/0.9% NaCl 13.514 (Pmx) 400 mcg In Empty Bag 1 bag @ Titrate IV . Q0M [facility] Rx#:[id number] Insulin Regular 100 unit 24.475 35.005 23.449 In Sodium Chloride 0.9% 100 ml @ Per Protocol IV .Q0M [facility] Rx#:[id number] Potassium Chloride 10 meq 100 In Water For Injection 1 100ml.bag @ 100 mls/hr IVPB Q1H [facility] Rx#: [id number] ceFAZolin 1,000 mg In 50 Sodium Chloride 0.9% 50 ml @ 100 mls/hr IV Q12H [facility] Rx#:[id number] propofoL 1,000 mg In 37.788 181.982 59.811 Empty Bag 1 bag @ Titrate IV .Q0M [facility] Rx#: [id number] Hemodialysis 400 Output: Chest Tube Drainage 175 138 78 Left adn Right Chest Tube 130 36 40 Mediastinal Chest Tube 45 102 38 Urine 160 245 50 Hemodialysis 2400 Other: Voiding Method Indwelling Catheter Indwelling Catheter Indwelling Catheter Weight 105 kg 105 kg ABP, PAP, CO, CI - Last 8 Hours Arterial Blood Pressure 128/34 Arterial Blood Pressure 114/36 Arterial Blood Pressure 129/37 Arterial Blood Pressure 120/44 Arterial Blood Pressure 140/40 Arterial Blood Pressure 130/35 Arterial Blood Pressure 118/34 Arterial Blood Pressure 111/32 Arterial Blood Pressure 115/35 Arterial Blood Pressure 116/35 Arterial Blood Pressure 113/34 Arterial Blood Pressure 112/33 Pulmonary Artery Pressure 40/12 Pulmonary Artery Pressure 42/13 Pulmonary Artery Pressure 43/14 Pulmonary Artery Pressure 38/13 Pulmonary Artery Pressure 37/16 Pulmonary Artery Pressure 44/17 Pulmonary Artery Pressure 44/20 Pulmonary Artery Pressure 50/19 Pulmonary Artery Pressure 46/16 Pulmonary Artery Pressure 36/13 Pulmonary Artery Pressure 35/14 Pulmonary Artery Pressure 37/13 Pulmonary Artery Pressure 37/14 Pulmonary Artery Pressure 38/14 Pulmonary Artery Pressure 37/14 Cardiac Output 5.1 Cardiac Output 4.9 Cardiac Output 4.9 Cardiac Index 2.4 Cardiac Index 2.3 Cardiac Index 2.3 Results 10/18/23 04:15 10/18/23 04:15 Cardiac Enzymes 10/18/23 Range/Units 04:15 AST 75 H (17-59) U/L CBC 10/17/23 10/17/23 10/18/23 Range/Units 15:46 18:57 04:15 WBC 5.1 5.3 8.4 (3.8-10.6) k/uL RBC 2.72 L 2.86 L 2.80 L (4.30-5.90) m/uL Hgb 8.8 L 9.4 L 9.7 L (13.0-17.5) gm/dL Hct 25.4 L 26.9 L 26.4 L (39.0-53.0) % Plt Count 106 L 113 L 103 L (150-450) k/uL Comprehensive Metabolic Panel 10/17/23 10/18/23 Range/Units 18:57 04:15 Sodium 134 L (137-145) mmol/L Potassium 3.9 4.4 (3.5-5.1) mmol/L Chloride 98 (98-107) mmol/L Carbon Dioxide 23 (22-30) mmol/L BUN 61 H (9-20) mg/dL Creatinine 4.56 H (0.66-1.25) mg/dL Glucose 120 H (74-99) mg/dL Calcium 8.4 (8.4-10.2) mg/dL AST 75 H (17-59) U/L ALT 33 (4-49) U/L Alkaline Phosphatase 107 (38-126) U/L Total Protein 6.0 L (6.3-8.2) g/dL Albumin 3.4 L (3.5-5.0) g/dL Current Medications Generic Name Dose Route Start Last Admin Trade Name Freq PRN Reason Stop Dose Admin Albuterol/Ipratropium 3 ml 10/17/23 12:22 Ipratropium-Albuterol 3 Ml Neb INHALATION RT-Q2H PRN Shortness Of Breath Or Wheezing Albuterol/Ipratropium 3 ml 10/17/23 20:00 10/18/23 11:15 Ipratropium-Albuterol 3 Ml Neb INHALATION 3 ml RT-QID [facility] Administration Aspirin 325 mg 10/18/23 09:00 10/18/23 08:11 Aspirin 325 Mg Tab PO 325 mg DAILY [facility] Administration Benzocaine/Menthol 1 each 10/17/23 12:22 Benzocaine/Menthol Lozeng 1 Each Lozenge MUCOUS MEM Q2H PRN Sore Throat Bisacodyl 10 mg 10/18/23 09:00 Bisacodyl 10 Mg Supp RECTAL DAILY PRN Constipation Calcium Carbonate/Glycine 1,000 mg 10/17/23 12:30 10/18/23 13:50 Calcium Carbonate 500 Mg Chewable PO Not Given AC-TID [facility] Cholecalciferol 50 mcg 10/18/23 09:00 10/18/23 08:12 Cholecalciferol 25 Mcg (1000 Iu) Tablet PO 50 mcg DAILY [facility] Administration Clopidogrel Bisulfate 75 mg 10/18/23 09:00 10/18/23 08:10 Clopidogrel 75 Mg Tab PO 75 mg DAILY [facility] Administration Dextrose/Water 25 ml 10/17/23 12:22 Dextrose 50% Syringe 50 Ml IVP PER PROTOCOL PRN Hypoglycemia Protocol Dextrose/Water 50 ml 10/17/23 12:22 Dextrose 50% Syringe 50 Ml IVP PER PROTOCOL PRN Hypoglycemia Protocol Ezetimibe 10 mg 10/18/23 09:00 10/18/23 08:11 Ezetimibe 10 Mg Tab PO 10 mg QAM [facility] Administration Escitalopram Oxalate 10 mg 10/18/23 09:00 10/18/23 08:11 Escitalopram 10 Mg Tab PO 10 mg DAILY [facility] Administration Ferrous Sulfate 325 mg 10/18/23 09:00 10/18/23 10:03 Ferrous Sulfate 325 Mg Tab PO Not Given DAILY [facility] Heparin Sodium (Porcine) 5,000 unit 10/17/23 16:00 10/18/23 07:53 Heparin Sodium,Porcine 5,000 Unit/Ml 1 Ml Vial SQ 5,000 unit Q8HR [facility] Administration Hydralazine HCl 10 mg 10/17/23 12:22 Hydralazine Hcl 20 Mg/Ml 1 Ml Vial IVP Q1H PRN Blood Pressure - High Albumin Human 250 ml/ IV 250 mls @ 250 mls/hr 10/17/23 12:22 10/17/23 14:10 Solution IVPB 10/19/23 12:23 250 mls/hr Q1HR PRN Administration For Volume Protocol Clevidipine 25 mg/ IV Solution 50 mls @ 2 mls/hr 10/17/23 12:22 10/18/23 10:40 IV 0 mg/hr .Q24H [facility] 0 mls/hr Titration Protocol 1 MG/HR Amiodarone HCl 150 mg/ 103 mls @ 618 mls/hr 10/17/23 12:22 Dextrose/Water IV .Q10M PRN A.FIB/FLUTTER Lactated Ringer's 1,000 mls @ 50 mls/hr 10/17/23 12:22 10/18/23 09:18 Lactated Ringers IV 50 mls/hr .Q20H [facility] Administration Propofol 1,000 mg/ IV Solution 100 mls @ 0 mls/hr 10/17/23 12:22 10/18/23 10:25 IV 0 mcg/kg/min .Q0M [facility] 0 mls/hr Titration Protocol Titrate Calcium Gluconate/Sodium 100 mls @ 100 mls/hr 10/17/23 12:22 Chloride 2 gm/ IV Solution IVPB 11/16/23 12:23 ONCE PRN Ionized Calcium less than 4.4 Insulin Human Regular 100 unit 101 mls @ 0 mls/hr 10/17/23 12:22 10/18/23 14:12 / Sodium Chloride IV 6.5 units/hr .Q0M [facility] 6.565 mls/hr Titration Protocol Per Protocol Loratadine 10 mg 10/18/23 09:00 10/18/23 08:11 Loratadine 10 Mg Tab PO 10 mg DAILY [facility] Administration Magnesium Hydroxide 2,400 mg 10/18/23 09:00 Magnesium Hydroxide 2,400 Mg/30 Ml Cup PO BID PRN Constipation Metoclopramide HCl 10 mg 10/17/23 12:22 Metoclopramide 5 Mg/Ml 2 Ml Vial IVP Q4H PRN Nausea And Vomiting Metoprolol Tartrate 12.5 mg 10/18/23 09:00 10/18/23 10:03 Metoprolol Tartrate 12.5 Mg Tab PO 12.5 mg BID [facility] Administration Miscellaneous Information 1 each 10/17/23 12:22 Potassium Replacement Protocol 1 Each Misc MISCELLANE DAILY PRN Per Protocol Protocol Miscellaneous Information 1 each 10/17/23 12:22 Magnesium Replacement Protocol 1 Each Misc MISCELLANE DAILY PRN Per Protocol Protocol Multivit/Ca Carb/B Cmplx/FA/Prenat 1 each 10/18/23 09:00 10/18/23 10:03 Folic Acid-Vit B Complex-Vit C 1 Cap PO Not Given DAILY [facility] Patient's Own ( 10 mg 10/17/23 21:00 10/18/23 00:49 Rosuvastatin 10 Mg PO Not Given Tablet) HS [facility] Ondansetron HCl 4 mg 10/17/23 12:22 Ondansetron 4 Mg/2 Ml Vial IVP Q6HR PRN Nausea And Vomiting Oxycodone HCl 5 mg 10/17/23 12:22 10/17/23 17:08 Oxycodone Hcl 5 Mg Tab PO 5 mg Q6HR PRN Administration Moderate Pain (Scale 4 to 6) Oxycodone HCl 10 mg 10/17/23 12:22 10/18/23 13:48 Oxycodone Hcl 5 Mg Tab PO 10 mg Q4HR PRN Administration Severe Pain (Scale 7 to 10) Pantoprazole Sodium 40 mg 10/18/23 09:00 10/18/23 08:09 Pantoprazole 40 Mg/10 Ml Vial IVP 40 mg DAILY [facility] Administration Pramipexole Dihydrochloride 0.5 mg 10/17/23 12:22 Pramipexole 0.5 Mg Tab PO BID PRN Restless legs Senna/Docusate Sodium 2 each 10/18/23 21:00 Sennosides-Docusate Sodium 1 Each Tab PO HS [facility] Sodium Chloride 10 ml 10/17/23 21:00 10/18/23 08:13 Sodium Chloride 0.9% Flush 10 Ml Syringe IV 10 ml BID [facility] Administration Tamsulosin HCl 0.4 mg 10/18/23 21:00 Tamsulosin 0.4 Mg Cap.Er.24h PO [facility] Intake and Output 10/17/23 10/18/23 10/18/23 22:59 06:59 14:59 Intake Total 776.208 365.387 3580.040 Output Total 507 348 1619 Balance 441.208 325.987 -1457.960 Intake: IV 552 492 472 .9NS Cardiac Output 110 60 90 .9NS Pressure Bag 72 72 42 Lactated Ringers 1,000 ml 370 360 340 @ 50 mls/hr IV .Q20H [facility] Rx#:[id number] Intake, IV Titration 224.208 216.987 198.040 Amount ACETAMINOPHEN IV (For NPO 100 ) 1,000 mg In Empty Bag 1 bag @ 400 mls/hr IVPB ONCE [facility] Rx#:[id number] Amiodarone 450 mg In 11.945 Dextrose 5% in Water 250 ml @ 0.5 MG/MIN 16.667 mls/hr IV .Q15H [facility] Rx#: [id number] Clevidipine Butyrate 25 1.266 mg In Empty Bag 1 bag @ 1 MG/HR 2 mls/hr IV .Q24H [facility] Rx#:[id number] Dexmedetomidine/0.9% NaCl 13.514 (Pmx) 400 mcg In Empty Bag 1 bag @ Titrate IV . Q0M [facility] Rx#:[id number] Insulin Regular 100 unit 24.475 35.005 23.449 In Sodium Chloride 0.9% 100 ml @ Per Protocol IV .Q0M [facility] Rx#:[id number] Potassium Chloride 10 meq 100 In Water For Injection 1 100ml.bag @ 100 mls/hr IVPB Q1H [facility] Rx#: [id number] ceFAZolin 1,000 mg In 50 Sodium Chloride 0.9% 50 ml @ 100 mls/hr IV Q12H [facility] Rx#:[id number] propofoL 1,000 mg In 37.788 181.982 59.811 Empty Bag 1 bag @ Titrate IV .Q0M [facility] Rx#: [id number] Hemodialysis 400 Output: Chest Tube Drainage 175 138 78 Left adn Right Chest Tube 130 36 40 Mediastinal Chest Tube 45 102 38 Urine 160 245 50 Hemodialysis 2400 Other: Voiding Method Indwelling Catheter Indwelling Catheter Indwelling Catheter Weight 105 kg 105 kg Patient Weight 10/19/23 06:59 Weight 105 kg 10/18/23 04:15 10/18/23 04:15
[2023-10-18 15:03] LABS: Glucose,Whole Blood 97 mg/dL (70-110)
[2023-10-18] MEDS: KETOROLAC 15 MG/ML 1 ML VIAL IVP STA (15:18)
[2023-10-18 16:08] LABS: Glucose,Whole Blood 100 mg/dL (70-110)
[2023-10-18 17:23] LABS: Glucose,Whole Blood 122 mg/dL (70-110)
[2023-10-18 18:10] LABS: Glucose,Whole Blood 127 mg/dL (70-110)
[2023-10-18 19:12] LABS: Glucose,Whole Blood 126 mg/dL (70-110)
[2023-10-18 19:58] LABS: Glucose,Whole Blood 114 mg/dL (70-110)
[2023-10-18] MEDS: SENNOSIDES-DOCUSATE SODIUM 1 EACH TAB PO SCH (20:58)
[2023-10-18] MEDS: TAMSULOSIN 0.4 MG CAP.ER.24H PO SCH (20:58)
[2023-10-18 21:04] LABS: Glucose,Whole Blood 103 mg/dL (70-110)
[2023-10-18 22:12] LABS: Glucose,Whole Blood 110 mg/dL (70-110)
[2023-10-18 23:12] LABS: Glucose,Whole Blood 137 mg/dL (70-110)
[2023-10-19 00:12] LABS: Glucose,Whole Blood 132 mg/dL (70-110)
[2023-10-19 00:59] LABS: Glucose,Whole Blood 124 mg/dL (70-110)
[2023-10-19 02:02] LABS: Glucose,Whole Blood 97 mg/dL (70-110)
[2023-10-19 02:21] LABS: Basophils % (A) 0 %; Eosinophils # (A) 0.2 k/uL (0-0.7); Eosinophils % (A) 2 %; HCT 26.7 % (39.0-53.0); HGB 9.4 gm/dL (13.0-17.5); Lymphocytes # (A) 0.6 k/uL (1.0-4.8); Lymphocytes % (A) 6 %; MCH 33.3 pg (25.0-35.0); MCHC 35.1 g/dL (31.0-37.0); Mean Platelet Volume 11.2; Monocytes # (A) 0.5 k/uL (0-1.0); Monocytes % (A) 5 %; Neutrophils # (A) 8.7 k/uL (1.3-7.7); Neutrophils % (A) 85 %; RBC 2.81 m/uL (4.30-5.90); RDW 13.9 % (11.5-15.5); WBC 10.2 k/uL (3.8-10.6)
[2023-10-19 02:22] LABS: Platelet Count 92 k/uL (150-450)
[2023-10-19 02:37] LABS: Ionized Calcium 4.5 mg/dL (4.5-5.3)
[2023-10-19 02:49] LABS: ALT 12 U/L (4-49); AST 56 U/L (17-59); African American GFR (CKD) 17 (>60 ml/min/1.73 sqM); Albumin 3.3 g/dL (3.5-5.0); Alkaline Phosphatase 105 U/L (38-126); Anion Gap 10 mmol/L; Blood Urea Nitrogen 41 mg/dL (9-20); Calcium 8.4 mg/dL (8.4-10.2); Carbon Dioxide 27 mmol/L (22-30); Chloride 96 mmol/L (98-107); Glucose 93 mg/dL (74-99); Non-African American GFR(CKD) 15 (>60 ml/min/1.73 sqM); Potassium 3.9 mmol/L (3.5-5.1); Sodium 133 mmol/L (137-145); Total Bilirubin 0.6 mg/dL (0.2-1.3); Total Protein 6.1 g/dL (6.3-8.2)
[2023-10-19 03:17] LABS: Glucose,Whole Blood 104 mg/dL (70-110)
[2023-10-19] MEDS: POTASSIUM CHLORIDE ER 20 MEQ TAB.ER PO SCH (03:24)
[2023-10-19] MEDS: MAGNESIUM SULFATE-D5W PMX 1 GM in DEXTROSE/WATER 1 100ML.BAG IVPB ONE (03:24)
[2023-10-19 04:20] LABS: Glucose,Whole Blood 123 mg/dL (70-110)
[2023-10-19 05:20] LABS: Glucose,Whole Blood 117 mg/dL (70-110)
[2023-10-19 06:20] LABS: Glucose,Whole Blood 100 mg/dL (70-110)
[2023-10-19] MEDS: PANTOPRAZOLE 40 MG TABLET PO SCH (07:24)
--- NOTE | 2023-10-19 08:01 | XR ---
EXAMINATION TYPE: XR chest 1V portable DATE OF EXAM: 10/19/2023 5:09 AM CLINICAL INDICATION:Male, 72 years old with history of Post Operative Cardiac Surgery; [facility] COMPARISON: Chest radiographs from 10/18/2023. TECHNIQUE: XR chest 1V portable Frontal view of the chest. FINDINGS: Lungs/Pleura: There is no evidence of pleural effusion, focal consolidation, or pneumothorax. Pulmonary vascularity: Mild pulmonary vascular congestion. Heart/mediastinum: Cardiomediastinal silhouette is enlarged and stable. Post aortic valve repair michelle nges. Left atrial appendage occlusion device is present. Musculoskeletal: No acute osseous pathology. Other findings: None Lines/Tubes: Interval removal of the endotracheal tube. Interval removal of the enteric tube, Bilateral thoracotomy tubes are present without evidence of pneumothorax. Drainage tubes with tips projecting over the mediastinum. Enterprise-Pb catheter has been removed. IMPRESSION: Postprocedural changes. No evidence for pneumothorax stable exam.
[2023-10-19 08:16] LABS: Glucose,Whole Blood 110 mg/dL (70-110)
[2023-10-19 09:13] LABS: Glucose,Whole Blood 128 mg/dL (70-110)
[2023-10-19 10:19] LABS: Glucose,Whole Blood 156 mg/dL (70-110)
--- NOTE | 2023-10-19 11:07 | P.PN ---
Subjective Progress Note Date: 10/19/23 This is a 72-year-old male patient was being seen in the intensive care unit following his cardiac surgery. The patient i has a known history of coronary artery disease, he has undergone previous PCI, chronic diastolic heart failure with a preserved ejection fraction of 50%, end-stage renal disease on h emodialysis 3 times a week, TTS, insulin-dependent diabetes mellitus, hypertension hyperlipidemia and previous history of obstructive sleep apnea and remote history of smoking and the patient quit smoking back in 1981. I have also seen him in the hospital for previous episodes of staphylococcal sepsis. This was related to a permacath infection. The patient has been having episodes of chest pain started in early September 2023. At that time, his troponins were positive and a catheterization was done on 10/03/2023 that showed 60% stenosis in the mid to distal left main, 50 to 60% stenosis of the mid LAD, 100% stenosis of the circumflex and a 50 to 60% stenosis of the mid RCA. At that point, the patient was advised to undergo cardiac revascularization surgery. The patient underwent a off-pump cardiac bypass x 2 with TIAN to LAD and saphenous vein graft to ramus intermedius. Currently, the patient is in the intensive care unit, intubated on mechanical ventilator. He is a bit restless on propofol which is being weaned off. The patient is intubated, assist-control mode rate of 16, tidal volume of 450, FiO2 has been weaned down to 35% with a PEEP of 5. His chest x-ray in the ICU showed increased pulm vascular marking and congestion. Cardiomegaly. Postthoracotomy changes. The patient has an orotracheal tube was in a good location. The patient also has a Elba-Pb catheter in place. As far as tubes, the patient has a right and a left pleural chest tube and mediastinal chest tube. No evidence of any pneumothorax. The blood gases showed a pH of 7.43 with a pCO2 of 42 and pO2 of 277 and this was on 100% FiO2. His current cardiac output is 5.4 with an index of 2.5. PA pressures of 58/25 mmHg. He is on nitroglycerin drip running at 5 mcg/kg/min. He is also on amiodarone drip running at 1 mg/min. His cardiac rhythm is sinus with occasional pacing. Pulse ox is 98%. Arousable and somewhat rested yeah restless yet he is following simple commands. Urine output is minimal as the patient has end-stage renal disease. On today's evaluation of 10/18/2023, the patient is being seen for a follow-up. The patient remains intubated on the mechanical ventilator. Unable to wean this patient off the mechanical ventilator as the patient has difficulties in performing spontaneous breathing trial and he was becoming restless, agitated, tachypneic and he would develop hemodynamic instability and elevation of the PA pressures. Based on that, the trial was aborted. The plan was discussed with the cardiothoracic surgeon. The plan was to proceed with hemodialysis today and following that, the patient may potentially extubate. As such, hemodialysis was started this morning and the goal is to dialyze the patient and ultrafiltration for a total of 2 L. His current rhythm is sinus with occasional bradycardia, VVI pacing at 40 and he has occasional PVCs. He remains intubated on the mechanical ventilator. He is on assist-control mode rate of 16, tidal volume of 450, FiO2 is down to 35% with a PEEP of 5. Chest x-ray shows mild interstitial markings bilaterally. Tubes are in good location. Orotracheal tube is in good location. There is no evidence of any pneumothorax. He remains on propofol at 30 mcg/kg/min. Insulin drip is on hold and the patient is on nitroglycerin drip at 5 mcg/min. The pulmonary artery pressures are 37/14. Cardiac output is at 4.9 with an index of 2.3. The right and the left pleural chest tube has put out a total of 210 cc since surgery and the mediastinal chest tube is put out 200 cc since surgery. No evidence of any air leak. Hemodynamically stable. No pressors. No fever. On today's evaluation of 10/19/2023, the patient is being seen for a follow-up. The patient was weaned off the mechanical ventilator and the patient was extubated yesterday without any major difficulties. The patient is currently postop day #2. He is sitting up on the chair and is calm and level. He is using the incentive spirometer and is putting approximately 500 cc he is on 2 L of oxygen by nasal cannula with a pulse ox of 99%. The chest x-ray from today shows adequate expansion of both lungs. The patient has a right pleural and left lower chest tube and mediastinal chest tube. The Elba-Pb catheter has been removed on the chest x-ray. No evidence of any pneumothorax. No significant pleural effusion. The output from the chest tubes have been minimal, I noted that the patient's mediastinal chest tube has produced only 500 cc since OR and the pleural chest tubes have produced only 300 cc since OR. Cardiac rhythm is sinus. The patient has a WBC count of 10.2 with a hemoglobin 9.4 and platelet count of 92. BUN is at 31 with a creatinine of 3.86 and his sodium levels at 133 with a potassium level of 4.6. No other significant events overnight. Neurologically intact and communicating and answering questions appropriately. He is on a combination of aspirin and metoprolol 12.5 mg twice daily and Plavix 75 mg p.o. daily. Nitroglycerin drip has been discontinued. The patient is not utilizing insulin drip and he uses an insulin pump on outpatient basis. Currently is only on sliding scale insulin coverage. Objective - Vital Signs Vital signs: Vital Signs Temp 98.1 F 10/19/23 08:00 Pulse 82 10/19/23 08:00 Resp 14 10/19/23 08:00 BP 104/29 10/19/23 07:00 Pulse Ox 98 10/19/23 08:00 FiO2 35 10/18/23 10:41 Intake & Output 10/18/23 10/19/23 10/19/23 18:59 06:59 18:59 Intake Total 1238.730 725.826 36 Output Total 2598 265 Balance -1359.270 460.826 36 Weight 105 kg 100.7 kg Intake: IV 635 432 36 .9NS Cardiac Output 70 .9NS Pressure Bag 105 72 6 Lactated Ringers 1,000 ml 460 360 30 @ 20 mls/hr IV .Q24H JOEY Rx#:[id number] Intake, IV Titration 203.730 43.826 Amount ACETAMINOPHEN IV (For NPO 100 ) 1,000 mg In Empty Bag 1 bag @ 400 mls/hr IVPB ONCE STA Rx#:[id number] Clevidipine Butyrate 25 1.266 mg In Empty Bag 1 bag @ 1 MG/HR 2 mls/hr IV .Q24H JOEY Rx#:[id number] Dexmedetomidine/0.9% NaCl 13.514 (Pmx) 400 mcg In Empty Bag 1 bag @ Titrate IV . Q0M JOEY Rx#:[id number] Insulin Regular 100 unit 29.139 43.826 In Sodium Chloride 0.9% 100 ml @ Per Protocol IV .Q0M JOEY Rx#:[id number] propofoL 1,000 mg In 59.811 Empty Bag 1 bag @ Titrate IV .Q0M JOEY Rx#: [id number] Oral 250 Hemodialysis 400 Output: Chest Tube Drainage 108 90 Left adn Right Chest Tube 40 10 Mediastinal Chest Tube 68 80 Urine 90 175 Hemodialysis 2400 Other: Voiding Method Indwelling Catheter Indwelling Catheter ABP, PAP, CO, CI - Last Documented Arterial Blood Pressure 112/40 Pulmonary Artery Pressure 36/5 Cardiac Output 6.3 Cardiac Index 3 - Exam Patient is currently awake and alert on oxygen 2 L/min nasal cannula, sitting up in a chair Head exam was generally normal. There was no scleral icterus or corneal arcus. Mucous membranes were moist. Neck was supple and without jugular venous distension, thyromegaly, or carotid bruits. Carotids were easily palpable bilaterally. There was no adenopathy. Elba-Pb catheter has been removed Lung sounds are diminished. Breath sounds are equal and symmetrical bilaterally. Heart sounds are regular, positive S1-S2, the patient has a mediastinal, right pleural and left pleural chest tube. Output from the pleural chest tubes are minimal at this point in time. Abdominal exam revealed normal bowel sounds. The abdomen was soft, non-tender, and without masses, organomegaly, or appreciable enlargement of the abdominal aorta. Examination of the extremities revealed easily palpable radial, femoral and pedal pulses. There was no cyanosis, clubbing or edema. Examination of the skin revealed no evidence of significant rashes, suspicious appearing nevi or other concerning lesions. Neurologically, moving all 4 extremities. Drowsy and sleepy still. Pupils are equal reactive to light. No focal neurological deficits. Moving all 4 extremities without any limitation. - Labs CBC & Chem 7: 10/19/23 02:09 10/19/23 07:28 Labs: Abnormal Lab Results - Last 24 Hours (Table) 10/18/23 10/18/23 10/18/23 Range/Units 10:01 11:06 11:28 RBC (4.30-5.90) m/uL Hgb (13.0-17.5) gm/dL Hct (39.0-53.0) % Plt Count (150-450) k/uL Neutrophils # (1.3-7.7) k/uL Lymphocytes # (1.0-4.8) k/uL ABG pH 7.47 H (7.35-7.45) ABG pO2 81 L (83-108) mmHg ABG HCO3 27 H (21-25) mmol/L ABG Total CO2 28 H (19-24) mmol/L Sodium (137-145) mmol/L Chloride (98-107) mmol/L BUN (9-20) mg/dL Creatinine (0.66-1.25) mg/dL POC Glucose (mg/dL) 122 H 119 H (70-110) mg/dL Total Protein (6.3-8.2) g/dL Albumin (3.5-5.0) g/dL 10/18/23 10/18/23 10/18/23 Range/Units 12:04 12:56 14:10 RBC (4.30-5.90) m/uL Hgb (13.0-17.5) gm/dL Hct (39.0-53.0) % Plt Count (150-450) k/uL Neutrophils # (1.3-7.7) k/uL Lymphocytes # (1.0-4.8) k/uL ABG pH (7.35-7.45) ABG pO2 (83-108) mmHg ABG HCO3 (21-25) mmol/L ABG Total CO2 (19-24) mmol/L Sodium (137-145) mmol/L Chloride (98-107) mmol/L BUN (9-20) mg/dL Creatinine (0.66-1.25) mg/dL POC Glucose (mg/dL) 111 H 130 H 113 H (70-110) mg/dL Total Protein (6.3-8.2) g/dL Albumin (3.5-5.0) g/dL 10/18/23 10/18/23 10/18/23 Range/Units 17:20 18:08 19:09 RBC (4.30-5.90) m/uL Hgb (13.0-17.5) gm/dL Hct (39.0-53.0) % Plt Count (150-450) k/uL Neutrophils # (1.3-7.7) k/uL Lymphocytes # (1.0-4.8) k/uL ABG pH (7.35-7.45) ABG pO2 (83-108) mmHg ABG HCO3 (21-25) mmol/L ABG Total CO2 (19-24) mmol/L Sodium (137-145) mmol/L Chloride (98-107) mmol/L BUN (9-20) mg/dL Creatinine (0.66-1.25) mg/dL POC Glucose (mg/dL) 122 H 127 H 126 H (70-110) mg/dL Total Protein (6.3-8.2) g/dL Albumin (3.5-5.0) g/dL 10/18/23 10/18/23 10/19/23 Range/Units 19:57 23:10 00:11 RBC (4.30-5.90) m/uL Hgb (13.0-17.5) gm/dL Hct (39.0-53.0) % Plt Count (150-450) k/uL Neutrophils # (1.3-7.7) k/uL Lymphocytes # (1.0-4.8) k/uL ABG pH (7.35-7.45) ABG pO2 (83-108) mmHg ABG HCO3 (21-25) mmol/L ABG Total CO2 (19-24) mmol/L Sodium (137-145) mmol/L Chloride (98-107) mmol/L BUN (9-20) mg/dL Creatinine (0.66-1.25) mg/dL POC Glucose (mg/dL) 114 H 137 H 132 H (70-110) mg/dL Total Protein (6.3-8.2) g/dL Albumin (3.5-5.0) g/dL 10/19/23 10/19/23 10/19/23 Range/Units 00:57 02:09 02:09 RBC 2.81 L (4.30-5.90) m/uL Hgb 9.4 L (13.0-17.5) gm/dL Hct 26.7 L (39.0-53.0) % Plt Count 92 L (150-450) k/uL Neutrophils # 8.7 H (1.3-7.7) k/uL Lymphocytes # 0.6 L (1.0-4.8) k/uL ABG pH (7.35-7.45) ABG pO2 (83-108) mmHg ABG HCO3 (21-25) mmol/L ABG Total CO2 (19-24) mmol/L Sodium 133 L (137-145) mmol/L Chloride 96 L (98-107) mmol/L BUN 41 H (9-20) mg/dL Creatinine 3.86 H (0.66-1.25) mg/dL POC Glucose (mg/dL) 124 H (70-110) mg/dL Total Protein 6.1 L (6.3-8.2) g/dL Albumin 3.3 L (3.5-5.0) g/dL 10/19/23 10/19/23 Range/Units 04:18 05:19 RBC (4.30-5.90) m/uL Hgb (13.0-17.5) gm/dL Hct (39.0-53.0) % Plt Count (150-450) k/uL Neutrophils # (1.3-7.7) k/uL Lymphocytes # (1.0-4.8) k/uL ABG pH (7.35-7.45) ABG pO2 (83-108) mmHg ABG HCO3 (21-25) mmol/L ABG Total CO2 (19-24) mmol/L Sodium (137-145) mmol/L Chloride (98-107) mmol/L BUN (9-20) mg/dL Creatinine (0.66-1.25) mg/dL POC Glucose (mg/dL) 123 H 117 H (70-110) mg/dL Total Protein (6.3-8.2) g/dL Albumin (3.5-5.0) g/dL Assessment and Plan Plan: Assessment Multivessel coronary artery disease with involvement of left main and chronic total occlusion of the circumflex artery. The patient underwent two-vessel bypass surgery with TIAN to LAD and SVG to ramus and the patient is currently postop day #2. Hemodynamically stable, Postthoracotomy, extubated on 10/18/2023 current densities of actual nasal cannula. Chest tubes are still in place. Output is minimal at this point in time. No evidence of any pneumothorax. Currently on 2 L of O2 nasal cannula. Chronic diastolic heart failure with preserved LV function Recent history of myocardial infarction secondary to coronary artery disease End-stage renal disease on hemodialysis 3 times a week, TTS and the patient has an AV fistula in his right upper extremity, underwent hemodialysis yesterday Hypertension Hyperlipidemia Insulin-dependent diabetes mellitus and the patient is currently on sliding scale insulin coverage. He has a backup insulin drip if needed. COPD Obstructive sleep apnea, not significantly compliant to CPAP therapy History of smoking quit back in 1981 Peripheral neuropathy related to diabetes mellitus Orthostatic hypotension History of mild intermittent bronchial asthma currently inactive and stable History of staphylococcal septicemia related to permacath infection back in 2022 Plan Patient is extubated and will continue using the incentive spirometer Hemodialysis was performed yesterday Monitor the output from the chest tubes, output is minimal at this point in time and there is no evidence of any air leak, in my opinion the chest tubes can be removed. Elba-Pb catheter is noted the removed. Clinically and hemodynamically stable. Adequate cardiac output and index and the patient is currently on no pressors Backup VVI pacing at rate of 40, current rhythm is sinus Postop hemoglobin is stable Nitroglycerin drip has been discontinued Continue aspirin and Plavix Continue metoprolol Line Technician on the case Will continue to follow,
--- NOTE | 2023-10-19 11:08 | P.PN ---
Subjective Patient is seen for follow-up for end-stage renal disease. Status post coronary artery bypass surgery on 10/17/2023 He was extubated yesterday. Currently doing well Chest tubes will likely be removed today Patient did walk with therapy. Objective - Vital Signs Vital signs: Vital Signs Temp 98.1 F 10/19/23 08:00 Pulse 80 10/19/23 11:00 Resp 15 10/19/23 11:00 BP 104/29 10/19/23 10:30 Pulse Ox 98 10/19/23 11:00 FiO2 35 10/18/23 10:41 Intake & Output 10/18/23 10/19/23 10/19/23 18:59 06:59 18:59 Intake Total 1238.730 725.826 144 Output Total 2598 265 40 Balance -1359.270 460.826 104 Weight 105 kg 100.7 kg Intake: IV 635 432 144 .9NS Cardiac Output 70 .9NS Pressure Bag 105 72 24 Lactated Ringers 1,000 ml 460 360 120 @ 20 mls/hr IV .Q24H JOEY Rx#:[id number] Intake, IV Titration 203.730 43.826 Amount ACETAMINOPHEN IV (For NPO 100 ) 1,000 mg In Empty Bag 1 bag @ 400 mls/hr IVPB ONCE STA Rx#:[id number] Clevidipine Butyrate 25 1.266 mg In Empty Bag 1 bag @ 1 MG/HR 2 mls/hr IV .Q24H JOEY Rx#:[id number] Dexmedetomidine/0.9% NaCl 13.514 (Pmx) 400 mcg In Empty Bag 1 bag @ Titrate IV . Q0M JOEY Rx#:[id number] Insulin Regular 100 unit 29.139 43.826 In Sodium Chloride 0.9% 100 ml @ Per Protocol IV .Q0M JOEY Rx#:[id number] propofoL 1,000 mg In 59.811 Empty Bag 1 bag @ Titrate IV .Q0M JOEY Rx#: [id number] Oral 250 Hemodialysis 400 Output: Chest Tube Drainage 108 90 Left adn Right Chest Tube 40 10 Mediastinal Chest Tube 68 80 Urine 90 175 40 Hemodialysis 2400 Other: Voiding Method Indwelling Catheter Indwelling Catheter Indwelling Catheter ABP, PAP, CO, CI - Last Documented Arterial Blood Pressure 113/38 Pulmonary Artery Pressure 36/5 Cardiac Output 6.3 Cardiac Index 3 - Exam Patient is awake, comfortable, alert oriented 3 No acute distress Examination of the heart S1 and S2 Examination the lungs decreased breath sounds Abdomen is soft nontender Examination of lower extremity shows no significant edema - Labs CBC & Chem 7: 10/19/23 02:09 10/19/23 07:28 Labs: Abnormal Lab Results - Last 24 Hours (Table) 10/18/23 10/18/23 10/18/23 Range/Units 11:06 11:28 12:04 RBC (4.30-5.90) m/uL Hgb (13.0-17.5) gm/dL Hct (39.0-53.0) % Plt Count (150-450) k/uL Neutrophils # (1.3-7.7) k/uL Lymphocytes # (1.0-4.8) k/uL ABG pH 7.47 H (7.35-7.45) ABG pO2 81 L (83-108) mmHg ABG HCO3 27 H (21-25) mmol/L ABG Total CO2 28 H (19-24) mmol/L Sodium (137-145) mmol/L Chloride (98-107) mmol/L BUN (9-20) mg/dL Creatinine (0.66-1.25) mg/dL POC Glucose (mg/dL) 119 H 111 H (70-110) mg/dL Total Protein (6.3-8.2) g/dL Albumin (3.5-5.0) g/dL 10/18/23 10/18/23 10/18/23 Range/Units 12:56 14:10 17:20 RBC (4.30-5.90) m/uL Hgb (13.0-17.5) gm/dL Hct (39.0-53.0) % Plt Count (150-450) k/uL Neutrophils # (1.3-7.7) k/uL Lymphocytes # (1.0-4.8) k/uL ABG pH (7.35-7.45) ABG pO2 (83-108) mmHg ABG HCO3 (21-25) mmol/L ABG Total CO2 (19-24) mmol/L Sodium (137-145) mmol/L Chloride (98-107) mmol/L BUN (9-20) mg/dL Creatinine (0.66-1.25) mg/dL POC Glucose (mg/dL) 130 H 113 H 122 H (70-110) mg/dL Total Protein (6.3-8.2) g/dL Albumin (3.5-5.0) g/dL 10/18/23 10/18/23 10/18/23 Range/Units 18:08 19:09 19:57 RBC (4.30-5.90) m/uL Hgb (13.0-17.5) gm/dL Hct (39.0-53.0) % Plt Count (150-450) k/uL Neutrophils # (1.3-7.7) k/uL Lymphocytes # (1.0-4.8) k/uL ABG pH (7.35-7.45) ABG pO2 (83-108) mmHg ABG HCO3 (21-25) mmol/L ABG Total CO2 (19-24) mmol/L Sodium (137-145) mmol/L Chloride (98-107) mmol/L BUN (9-20) mg/dL Creatinine (0.66-1.25) mg/dL POC Glucose (mg/dL) 127 H 126 H 114 H (70-110) mg/dL Total Protein (6.3-8.2) g/dL Albumin (3.5-5.0) g/dL 10/18/23 10/19/23 10/19/23 Range/Units 23:10 00:11 00:57 RBC (4.30-5.90) m/uL Hgb (13.0-17.5) gm/dL Hct (39.0-53.0) % Plt Count (150-450) k/uL Neutrophils # (1.3-7.7) k/uL Lymphocytes # (1.0-4.8) k/uL ABG pH (7.35-7.45) ABG pO2 (83-108) mmHg ABG HCO3 (21-25) mmol/L ABG Total CO2 (19-24) mmol/L Sodium (137-145) mmol/L Chloride (98-107) mmol/L BUN (9-20) mg/dL Creatinine (0.66-1.25) mg/dL POC Glucose (mg/dL) 137 H 132 H 124 H (70-110) mg/dL Total Protein (6.3-8.2) g/dL Albumin (3.5-5.0) g/dL 10/19/23 10/19/23 10/19/23 Range/Units 02:09 02:09 04:18 RBC 2.81 L (4.30-5.90) m/uL Hgb 9.4 L (13.0-17.5) gm/dL Hct 26.7 L (39.0-53.0) % Plt Count 92 L (150-450) k/uL Neutrophils # 8.7 H (1.3-7.7) k/uL Lymphocytes # 0.6 L (1.0-4.8) k/uL ABG pH (7.35-7.45) ABG pO2 (83-108) mmHg ABG HCO3 (21-25) mmol/L ABG Total CO2 (19-24) mmol/L Sodium 133 L (137-145) mmol/L Chloride 96 L (98-107) mmol/L BUN 41 H (9-20) mg/dL Creatinine 3.86 H (0.66-1.25) mg/dL POC Glucose (mg/dL) 123 H (70-110) mg/dL Total Protein 6.1 L (6.3-8.2) g/dL Albumin 3.3 L (3.5-5.0) g/dL 10/19/23 10/19/23 10/19/23 Range/Units 05:19 09:12 10:18 RBC (4.30-5.90) m/uL Hgb (13.0-17.5) gm/dL Hct (39.0-53.0) % Plt Count (150-450) k/uL Neutrophils # (1.3-7.7) k/uL Lymphocytes # (1.0-4.8) k/uL ABG pH (7.35-7.45) ABG pO2 (83-108) mmHg ABG HCO3 (21-25) mmol/L ABG Total CO2 (19-24) mmol/L Sodium (137-145) mmol/L Chloride (98-107) mmol/L BUN (9-20) mg/dL Creatinine (0.66-1.25) mg/dL POC Glucose (mg/dL) 117 H 128 H 156 H (70-110) mg/dL Total Protein (6.3-8.2) g/dL Albumin (3.5-5.0) g/dL Assessment and Plan Assessment: 1. End-stage renal disease on hemodialysis on a Tuesday schedule 2. Volume overload, improved. 3. Status post coronary artery bypass surgery 2 on 10/17/2023 3. Anemia multifactorial including anemia of chronic disease and postop state. Currently stable. Will maintain patient on Aranesp. Plan: Continue Aranesp Maintain patient on hemodialysis on a Tuesday schedule unless extra treatment needed.
[2023-10-19 11:10] LABS: Glucose,Whole Blood 150 mg/dL (70-110)
[2023-10-19 12:11] LABS: Glucose,Whole Blood 170 mg/dL (70-110)
[2023-10-19 13:19] LABS: Glucose,Whole Blood 164 mg/dL (70-110)
--- NOTE | 2023-10-19 13:56 | P.PN ---
Subjective Progress Note Date: 10/19/23 Principal diagnosis: Coronary artery disease. Past medical history significant for stable angina, coronary artery disease with previous PCI, hypertension, hyperlipidemia, insulin-dependent diabetes mellitus, chronic diastolic heart failure, mild cardiomyopathy with ejection fraction of 50%, end-stage renal disease on hemodialysis Tuesdays, and Saturdays, history of myocardial infarction in 2006, chronic obstructive pulmonary disease, obstructive sleep apnea with no ncompliance of use of his CPAP, peripheral neuropathy, remote history of smoking quit in 1981, osteoarthritis and occasional constipation. POD #2 Off pump coronary artery bypass grafting x 2. Left internal thoracic artery (in-situ) to left anterior descending coronary artery. Saphenous vein from aorta to ramus intermedius, Coronary patch angioplasty to ramus intermedius, Left atrial appendage ligation using #35mm AtriClip, Endoscopic left greater saphenous vein harvest, intraoperative transesophageal echocardiogram performed by anesthesia. Postoperative acute blood loss anemia, expected given hemodilution. The patient was seen and examined in follow-up today October 19, 2023 at his bedside in the intensive care unit. He was successfully extubated yesterday October 18, 2023 at 11:37 AM, he is currently sitting up to the bedside chair, is awake, alert, oriented x 3 and is in no acute apparent distress. Oxygen saturations are 99% on 2 L nasal cannula and he is achieving 1500 mL on his in centive spirometry with encouragement. Right IJ cordis remains in place with continuous CVP monitoring, current CVP pressure is 14 mmHg. Bedside telemetry is showing normal sinus rhythm with first degree heart block heart rate 74 bpm. Patient remains hemodynamically stable and is currently on no inotropic or pressor support. Hemodialysis was completed yesterday with 2.4 L of ultrafiltration. Mediastinal, right and left pleural chest tubes remain in place to low continuous wall suction -20 cm H2O. No air leak is present. Mediastinal chest tube draining thin serosanguineous drainage with 50 mL output in the last 8 hours and 120 mL output in the last 24 hours. Right and left pleural chest tubes remain in place draining thin serosanguineous drainage with 10 mL output in the last 8 hours and 40 mL output in the last 24 hours. Ventricular epicardial pacemaker wires remain in place and are connected to bedside backup pacemaker generator on a VVI mode of 58 bpm. Chest x-ray and laboratory results were reviewed. Objective - Vital Signs Vital signs: Vital Signs Temp 98.1 F 10/19/23 04:00 Pulse 82 10/19/23 06:11 Resp 16 10/19/23 06:11 BP 120/87 10/18/23 13:30 Pulse Ox 99 10/19/23 06:11 FiO2 35 10/18/23 10:41 Intake & Output 10/18/23 10/18/23 10/19/23 06:59 18:59 06:59 Intake Total 2725.038 4338.730 725.826 Output Total 568 2598 265 Balance 477.475 -1359.270 460.826 Weight 105 kg 105 kg 100.7 kg Intake: IV 778 635 432 .9NS Cardiac Output 130 70 .9NS Pressure Bag 108 105 72 Lactated Ringers 1,000 ml 540 460 360 @ 20 mls/hr IV .Q24H JOEY Rx#:[id number] Intake, IV Titration 267.475 203.730 43.826 Amount ACETAMINOPHEN IV (For NPO 100 ) 1,000 mg In Empty Bag 1 bag @ 400 mls/hr IVPB ONCE STA Rx#:[id number] Amiodarone 450 mg In 11.945 Dextrose 5% in Water 250 ml @ 0.5 MG/MIN 16.667 mls/hr IV .Q15H JOEY Rx#: [id number] Clevidipine Butyrate 25 1.266 mg In Empty Bag 1 bag @ 1 MG/HR 2 mls/hr IV .Q24H JOEY Rx#:[id number] Dexmedetomidine/0.9% NaCl 13.514 (Pmx) 400 mcg In Empty Bag 1 bag @ Titrate IV . Q0M JOEY Rx#:[id number] Insulin Regular 100 unit 50.525 29.139 43.826 In Sodium Chloride 0.9% 100 ml @ Per Protocol IV .Q0M JOEY Rx#:[id number] propofoL 1,000 mg In 205.005 59.811 Empty Bag 1 bag @ Titrate IV .Q0M JOEY Rx#: [id number] Oral 250 Hemodialysis 400 Output: Chest Tube Drainage 233 108 90 Left adn Right Chest Tube 111 40 10 Mediastinal Chest Tube 122 68 80 Urine 335 90 175 Hemodialysis 2400 Other: Voiding Method Indwelling Catheter Indwelling Catheter Indwelling Catheter ABP, PAP, CO, CI - Last Documented Arterial Blood Pressure 148/41 Pulmonary Artery Pressure 36/5 Cardiac Output 6.3 Cardiac Index 3 - Exam CONSTITUTIONAL: Sitting up to the bedside chair in the intensive care unit, appears comfortable, cooperative, no apparent acute distress. HEENT: Neck is supple, no JVD, no lymphadenopathy. Right IJ Cordis in place and functioning. RESPIRATORY: Lungs sounds essentially clear throughout, diminished to his bilateral bases. Respirations are symmetrical and nonlabored. Currently on 2 L nasal cannula with oxygen saturations 99%. Able to achieve 1000 mL on his incentive spirometry. Strong cough. CARDIOVASCULAR: Regular rhythm and rate. S1 and S2 present, negative for S3, gallop or murmur. Sternum is stable. Palpable peripheral pulses bilaterally, +1 edema to his bilateral lower extremities. No calf pain or tenderness noted. Heart hugger in place with patient demonstrating appropriate use. Knee-high ENMA hose and sequential compression devices in place to his bilateral lower extremities. GASTROINTESTINAL: Abdomen soft, nontender, nondistended. Hypoactive bowel sounds present 4 quadrants. Tolerating diet. Denies passing flatus. No guarding or rigidity. GENITOURINARY: Tomlinson present draining clear, yellow urine. Urine output 130 mL in the last 8 hours. Left arm AV fistula with positive thrill and bruit. 2.4 L of hemodialysis completed yesterday October 18, 2023. INTEGUMENTARY: Skin is warm and dry with no evidence of clubbing or cyanosis. Midline sternal incision clean dry and well approximated, covered with dry intact dressing. Left lower extremity EVH sites well approximated without redness or drainage. NEUROLOGIC: Cranial nerves II through XII intact. No focal deficits. MUSKULOSKELETAL: Able to move all extremities, strength equal bilaterally, generalized weakness. PSYCHIATRIC: Alert and oriented to person place and time, appropriate affect, intact judgment and insight. INVASIVE LINES AND TUBES: Mediastinal/left and right pleural chest tubes present and connected to low continuous wall suction, no air leaks present. Mediastinal tube with 50 mL of thin serosanguineous drainage overnight, 120 mL output in the last 24 hours. Left/right pleural chest tubes with 10 mL of thin serosanguineous drainage overnight, 40 mL output in the last 24 hours. Ventricular epicardial pacemaker wires present, connected to generator, VVI backup rate 50 bpm. Right internal jugular Cordis, right brachial arterial line present. Current CVP 14 mmHg. - Allied health notes Allied health notes reviewed: nursing - Labs CBC & Chem 7: 10/19/23 02:09 10/19/23 07:28 Labs: Abnormal Lab Results - Last 24 Hours (Table) 10/18/23 10/18/23 10/18/23 Range/Units 10:01 11:06 11:28 RBC (4.30-5.90) m/uL Hgb (13.0-17.5) gm/dL Hct (39.0-53.0) % Plt Count (150-450) k/uL Neutrophils # (1.3-7.7) k/uL Lymphocytes # (1.0-4.8) k/uL ABG pH 7.47 H (7.35-7.45) ABG pO2 81 L (83-108) mmHg ABG HCO3 27 H (21-25) mmol/L ABG Total CO2 28 H (19-24) mmol/L Sodium (137-145) mmol/L Chloride (98-107) mmol/L BUN (9-20) mg/dL Creatinine (0.66-1.25) mg/dL POC Glucose (mg/dL) 122 H 119 H (70-110) mg/dL Total Protein (6.3-8.2) g/dL Albumin (3.5-5.0) g/dL 10/18/23 10/18/23 10/18/23 Range/Units 12:04 12:56 14:10 RBC (4.30-5.90) m/uL Hgb (13.0-17.5) gm/dL Hct (39.0-53.0) % Plt Count (150-450) k/uL Neutrophils # (1.3-7.7) k/uL Lymphocytes # (1.0-4.8) k/uL ABG pH (7.35-7.45) ABG pO2 (83-108) mmHg ABG HCO3 (21-25) mmol/L ABG Total CO2 (19-24) mmol/L Sodium (137-145) mmol/L Chloride (98-107) mmol/L BUN (9-20) mg/dL Creatinine (0.66-1.25) mg/dL POC Glucose (mg/dL) 111 H 130 H 113 H (70-110) mg/dL Total Protein (6.3-8.2) g/dL Albumin (3.5-5.0) g/dL 10/18/23 10/18/23 10/18/23 Range/Units 17:20 18:08 19:09 RBC (4.30-5.90) m/uL Hgb (13.0-17.5) gm/dL Hct (39.0-53.0) % Plt Count (150-450) k/uL Neutrophils # (1.3-7.7) k/uL Lymphocytes # (1.0-4.8) k/uL ABG pH (7.35-7.45) ABG pO2 (83-108) mmHg ABG HCO3 (21-25) mmol/L ABG Total CO2 (19-24) mmol/L Sodium (137-145) mmol/L Chloride (98-107) mmol/L BUN (9-20) mg/dL Creatinine (0.66-1.25) mg/dL POC Glucose (mg/dL) 122 H 127 H 126 H (70-110) mg/dL Total Protein (6.3-8.2) g/dL Albumin (3.5-5.0) g/dL 10/18/23 10/18/23 10/19/23 Range/Units 19:57 23:10 00:11 RBC (4.30-5.90) m/uL Hgb (13.0-17.5) gm/dL Hct (39.0-53.0) % Plt Count (150-450) k/uL Neutrophils # (1.3-7.7) k/uL Lymphocytes # (1.0-4.8) k/uL ABG pH (7.35-7.45) ABG pO2 (83-108) mmHg ABG HCO3 (21-25) mmol/L ABG Total CO2 (19-24) mmol/L Sodium (137-145) mmol/L Chloride (98-107) mmol/L BUN (9-20) mg/dL Creatinine (0.66-1.25) mg/dL POC Glucose (mg/dL) 114 H 137 H 132 H (70-110) mg/dL Total Protein (6.3-8.2) g/dL Albumin (3.5-5.0) g/dL 10/19/23 10/19/2324 Range/Units 00:57 02:09 02:09 RBC 2.81 L (4.30-5.90) m/uL Hgb 9.4 L (13.0-17.5) gm/dL Hct 26.7 L (39.0-53.0) % Plt Count 92 L (150-450) k/uL Neutrophils # 8.7 H (1.3-7.7) k/uL Lymphocytes # 0.6 L (1.0-4.8) k/uL ABG pH (7.35-7.45) ABG pO2 (83-108) mmHg ABG HCO3 (21-25) mmol/L ABG Total CO2 (19-24) mmol/L Sodium 133 L (137-145) mmol/L Chloride 96 L (98-107) mmol/L BUN 41 H (9-20) mg/dL Creatinine 3.86 H (0.66-1.25) mg/dL POC Glucose (mg/dL) 124 H (70-110) mg/dL Total Protein 6.1 L (6.3-8.2) g/dL Albumin 3.3 L (3.5-5.0) g/dL 10/19/23 10/19/23 Range/Units 04:18 05:19 RBC (4.30-5.90) m/uL Hgb (13.0-17.5) gm/dL Hct (39.0-53.0) % Plt Count (150-450) k/uL Neutrophils # (1.3-7.7) k/uL Lymphocytes # (1.0-4.8) k/uL ABG pH (7.35-7.45) ABG pO2 (83-108) mmHg ABG HCO3 (21-25) mmol/L ABG Total CO2 (19-24) mmol/L Sodium (137-145) mmol/L Chloride (98-107) mmol/L BUN (9-20) mg/dL Creatinine (0.66-1.25) mg/dL POC Glucose (mg/dL) 123 H 117 H (70-110) mg/dL Total Protein (6.3-8.2) g/dL Albumin (3.5-5.0) g/dL - Imaging and Cardiology Chest x-ray: report reviewed, image reviewed Assessment and Plan Assessment: Coronary artery disease with left main disease, 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, status post two-vessel coronary artery bypass grafting Chronic diastolic heart failure Mild cardiomyopathy with an ejection fraction of 50% History of myocardial infarction Chronic kidney disease, on hemodialysis Tuesdays and Saturdays Hypertension Hyperlipidemia Insulin-dependent diabetes mellitus, with a preoperative hemoglobin A1c of 7.8% Chronic fatigue COPD with a preoperative FEV1 78% of predicted value with a base volume of 2.01 Obstructive sleep apnea, noncompliant with CPAP use History of constipation Remote history of nicotine dependence, quit smoking 1982 Neuropathy Orthostatic hypotension Plan: Continue aspirin, home dose of statin, Zetia, Plavix and beta-narcsia with hold parameters. Increase metoprolol to tartrate as tolerated. Wean oxygen as tolerated. Bronchodilator management per Dr. Potter's recommendations. Increase activity as tolerated. PT/OT/cardiac rehab following. Will monitor daily labs and chest x-rays. Electrolyte replacement per protocol We will remove his mediastinal and pleural chest tubes today. Dialysis management per nephrology recommendations. Pain control per current as needed regimen. Avoid nephrotoxic agents. Remove Tomlinson catheter, continue to record strict accurate intake and output Insulin management per internal medicine, patient should remain on continuous IV insulin for minimum of 48 hours, then may transition to subcutaneous per p rotocol GI/DVT prophylaxis. Remove right IJ cordis and right brachial arterial line. Daily weights. More recommendations to follow based on patient's clinical course. Time with Patient: Greater than 30
[2023-10-19 14:15] LABS: Glucose,Whole Blood 136 mg/dL (70-110)
--- NOTE | 2023-10-19 14:28 | P.PN ---
Subjective HISTORY OF PRESENTING ILLNESS Patient is pleasant 72-year-old male with history of diabetes mellitus type 2, hypertension, hyperlipidemia, CAD with previous PCI, end-stage renal disease on hemodialysis, chronic diastolic heart failure, remote tobacco abuse, COPD, obstructive sleep apnea, osteoarthritis. Patient follows in the office with myself. He has been having issues with fatigue as well as chest pain and shortness breath. Initially much of his issues were related to heart failure and eventually underwent dialysis with significant amount of fluid removal and had some improvement. Unfortunately he continued to have significant and w orsening dyspnea on exertion and repeat heart catheterization that showed progression of left main disease and therefore recommended bypass surgery. Patient underwent successful off-pump CABG on 10/16 with a TIAN to LAD and SVG to ramus as well as left atrial appendage clip. He was placed on amiodarone per protocol however did have some bradycardia intermittently. He was unable to be extubated secondary to fluid retention and did have dialysis this morning with approximately 2 L taken off with better oxygenation and able to be extubated at approximately noon. He currently admits to feeling significantly sore however otherwise no significant chest pain or shortness breath. Blood work today creatinine 4.5, AST 75, ALT 33, hemoglobin 9.7, platelets 103. 3/20 Patient seen and examined. Patient had an arterial line removed today as well as expected to have chest tubes removed. He still does have some positional, musculoskeletal chest pain. He denies any significant shortness breath. He is scheduled to undergo hemodialysis tomorrow. PHYSICAL EXAMINATION Vital signs reviewed. CONSTITUTIONAL: No apparent distress. HEENT: Head is normocephalic. Pupils are equal, round. Sclerae anicteric. Mucous membranes of the mouth are moist. No JVD. No carotid bruit. CHEST EXAMINATION: Lungs are clear to auscultation. No chest wall tenderness is noted on palpation or with deep breathing. HEART EXAMINATION: Regular rate and rhythm. S1, S2 heard. No murmurs, gallops or rub. ABDOMEN: Soft, nontender. Positive bowel sounds. EXTREMITIES: 2+ peripheral pulses, no lower extremity edema and no calf tenderness. NEUROLOGIC EXAMINATION: Patient is awake, alert and oriented x3. ASSESSMENT 1. CAD status post previous PCI and most recently status post TIAN to LAD, SVG to ramus 10/16 2. Hypertension 3. Acute on chronic diastolic heart failure 4. End-stage renal disease on hemodialysis 5. Anemia 6. Thrombocytopenia 7. Diabetes mellitus type 2 8. Obstructive sleep apnea and PLAN Continue to monitor his volume status and had significant improvements with dialysis previously. Continue current supportive care. Further recommendations to follow. Objective - Vital Signs Vital signs: Vital Signs Temp 98.1 F 10/19/23 08:00 Pulse 83 10/19/23 13:00 Resp 9 L 10/19/23 13:00 BP 104/29 10/19/23 13:00 Pulse Ox 97 10/19/23 13:00 FiO2 35 10/18/23 10:41 Intake & Output 10/18/23 10/19/23 10/19/23 18:59 06:59 18:59 Intake Total 1238.730 725.826 267.554 Output Total 2598 265 75 Balance -1359.270 460.826 192.554 Weight 105 kg 100.7 kg Intake: IV 635 432 252 .9NS Cardiac Output 70 .9NS Pressure Bag 105 72 42 Lactated Ringers 1,000 ml 460 360 210 @ 20 mls/hr IV .Q24H JOEY Rx#:[id number] Intake, IV Titration 203.730 43.826 15.554 Amount ACETAMINOPHEN IV (For NPO 100 ) 1,000 mg In Empty Bag 1 bag @ 400 mls/hr IVPB ONCE STA Rx#:[id number] Clevidipine Butyrate 25 1.266 mg In Empty Bag 1 bag @ 1 MG/HR 2 mls/hr IV .Q24H JOEY Rx#:[id number] Dexmedetomidine/0.9% NaCl 13.514 (Pmx) 400 mcg In Empty Bag 1 bag @ Titrate IV . Q0M JOEY Rx#:[id number] Insulin Regular 100 unit 29.139 43.826 15.554 In Sodium Chloride 0.9% 100 ml @ Per Protocol IV .Q0M JOEY Rx#:[id number] propofoL 1,000 mg In 59.811 Empty Bag 1 bag @ Titrate IV .Q0M JOEY Rx#: [id number] Oral 250 Hemodialysis 400 Output: Chest Tube Drainage 108 90 Left adn Right Chest Tube 40 10 Mediastinal Chest Tube 68 80 Urine 90 175 75 Hemodialysis 2400 Other: Voiding Method Indwelling Catheter Indwelling Catheter Urinal ABP, PAP, CO, CI - Last Documented Arterial Blood Pressure 109/40 Pulmonary Artery Pressure 36/5 Cardiac Output 6.3 Cardiac Index 3 - Labs CBC & Chem 7: 10/19/23 02:09 10/19/23 07:28 Labs: Abnormal Lab Results - Last 24 Hours (Table) 10/18/23 10/18/23 10/18/23 Range/Units 17:20 18:08 19:09 RBC (4.30-5.90) m/uL Hgb (13.0-17.5) gm/dL Hct (39.0-53.0) % Plt Count (150-450) k/uL Neutrophils # (1.3-7.7) k/uL Lymphocytes # (1.0-4.8) k/uL Sodium (137-145) mmol/L Chloride (98-107) mmol/L BUN (9-20) mg/dL Creatinine (0.66-1.25) mg/dL POC Glucose (mg/dL) 122 H 127 H 126 H (70-110) mg/dL Total Protein (6.3-8.2) g/dL Albumin (3.5-5.0) g/dL 10/18/23 10/18/23 10/19/23 Range/Units 19:57 23:10 00:11 RBC (4.30-5.90) m/uL Hgb (13.0-17.5) gm/dL Hct (39.0-53.0) % Plt Count (150-450) k/uL Neutrophils # (1.3-7.7) k/uL Lymphocytes # (1.0-4.8) k/uL Sodium (137-145) mmol/L Chloride (98-107) mmol/L BUN (9-20) mg/dL Creatinine (0.66-1.25) mg/dL POC Glucose (mg/dL) 114 H 137 H 132 H (70-110) mg/dL Total Protein (6.3-8.2) g/dL Albumin (3.5-5.0) g/dL 10/19/23 10/19/23 10/19/23 Range/Units 00:57 02:09 02:09 RBC 2.81 L (4.30-5.90) m/uL Hgb 9.4 L (13.0-17.5) gm/dL Hct 26.7 L (39.0-53.0) % Plt Count 92 L (150-450) k/uL Neutrophils # 8.7 H (1.3-7.7) k/uL Lymphocytes # 0.6 L (1.0-4.8) k/uL Sodium 133 L (137-145) mmol/L Chloride 96 L (98-107) mmol/L BUN 41 H (9-20) mg/dL Creatinine 3.86 H (0.66-1.25) mg/dL POC Glucose (mg/dL) 124 H (70-110) mg/dL Total Protein 6.1 L (6.3-8.2) g/dL Albumin 3.3 L (3.5-5.0) g/dL 10/19/23 10/19/23 10/19/23 Range/Units 04:18 05:19 09:12 RBC (4.30-5.90) m/uL Hgb (13.0-17.5) gm/dL Hct (39.0-53.0) % Plt Count (150-450) k/uL Neutrophils # (1.3-7.7) k/uL Lymphocytes # (1.0-4.8) k/uL Sodium (137-145) mmol/L Chloride (98-107) mmol/L BUN (9-20) mg/dL Creatinine (0.66-1.25) mg/dL POC Glucose (mg/dL) 123 H 117 H 128 H (70-110) mg/dL Total Protein (6.3-8.2) g/dL Albumin (3.5-5.0) g/dL 10/19/23 10/19/23 10/19/23 Range/Units 10:18 11:08 12:10 RBC (4.30-5.90) m/uL Hgb (13.0-17.5) gm/dL Hct (39.0-53.0) % Plt Count (150-450) k/uL Neutrophils # (1.3-7.7) k/uL Lymphocytes # (1.0-4.8) k/uL Sodium (137-145) mmol/L Chloride (98-107) mmol/L BUN (9-20) mg/dL Creatinine (0.66-1.25) mg/dL POC Glucose (mg/dL) 156 H 150 H 170 H (70-110) mg/dL Total Protein (6.3-8.2) g/dL Albumin (3.5-5.0) g/dL 10/19/23 10/19/23 Range/Units 13:17 14:13 RBC (4.30-5.90) m/uL Hgb (13.0-17.5) gm/dL Hct (39.0-53.0) % Plt Count (150-450) k/uL Neutrophils # (1.3-7.7) k/uL Lymphocytes # (1.0-4.8) k/uL Sodium (137-145) mmol/L Chloride (98-107) mmol/L BUN (9-20) mg/dL Creatinine (0.66-1.25) mg/dL POC Glucose (mg/dL) 164 H 136 H (70-110) mg/dL Total Protein (6.3-8.2) g/dL Albumin (3.5-5.0) g/dL
[2023-10-19 15:05] LABS: Glucose,Whole Blood 122 mg/dL (70-110)
[2023-10-19 16:16] LABS: Glucose,Whole Blood 79 mg/dL (70-110)
--- NOTE | 2023-10-19 16:36 | P.PN ---
Subjective Progress Note Date: 10/19/23 (delayed charting seen at 0830) Patient is a 72-year-old male with coronary artery disease, end-stage renal disease on hemodialysis Tuesday//Tuesday, diabetes mellitus type 2 with insulin pump, COPD, heart failure with ejection fraction 50 to 55%, and multiple other comorbid conditions who presented for two-vessel coronary artery bypass grafting. He tolerated the procedure well. He required prolonged intubation. Patient seen and examined at bedside. He is feeling better today. He is having some chest pain. Denies any nausea or vomiting but has a very low appetite. Vital signs reviewed General: Ill-appearing, mild distress due to pain, appears at stated age Cardiovascular: S1S2 reg, no murmur Lungs: Decreased breath sounds bilateral, no rhonchi, no rales, no accessory mus zoila use Abdominal: Soft, nontender to palpation, no guarding Ext: No gross muscle atrophy, 2+ edema b/l lower extremities, no contractures Neuro: CN II-XI grossly intact, no focal neuro deficits Psych: Alert, oriented, appropriate affect Assessment/Plan: Patient is a 72-year-old male status post two-vessel coronary artery bypass grafting Compensated diastolic congestive heart failure with ejection fraction 50 to 55% Hypertension Dyslipidemia - Cardiology note reviewed: Continue to monitor volume status -CT surgery note reviewed: Wean oxygen, remove mediastinal and pleural chest tubes today, remove IJ Cordis and arterial line. -Aspirin 325 mg daily -Plavix 75 mg daily -Zetia 10 mg daily -Metoprolol 12.5 mg twice daily Acute blood loss anemia, anticipated outcome of surgery Thrombocytopenia, anticipated outcome of surgery -Patient's preoperative hemoglobin was 12.2. -No indication for transfusion at this time -Follow CBC Diabetes mellitus type 2, insulin-dependent -Currently on insulin drip with blood sugars fairly well-controlled. Would continue to use insulin drip until patient eating well. Patient has been both on and off the drip since coming back from surgery. If eating well tomorrow would restart insulin pump - very brittle diabetic, follow BS closely. End-stage renal disease on hemodialysis Tuesday//Tuesday -Nephrology note reviewed: Maintain Tuesday//Tuesday treatment - HD again tomorrow COPD without exacerbation Obstructive sleep apnea -Critical care note reviewed: Continue current care. -Continue with scheduled DuoNeb Imaging: CXR: Reviewed by me with lines and tubes in appropriate positioning and improved aeration Data Review: Labs reviewed from today include CBC and CMP which are remarkable for hemoglobin 9.4, platelets 92, sodium 133, BUN 41, creatinine 3.68 DVT prophylaxis: Heparin SC Thank you for allowing us to participate in the care of this pleasant patient. Do not hesitate to contact us with questions. Someone can be reached from the [facility] hospitalist group all hours of the day at [phone] or via perfect serve. This dictation was prepared using [employer] voice recognition software. Though every attempt is made to correct errors during dictation some may still exist. Objective - Vital Signs Vital signs: Vital Signs Temp 98.1 F 10/19/23 08:00 Pulse 76 10/19/23 15:52 Resp 5 L 10/19/23 15:00 BP 115/55 10/19/23 15:00 Pulse Ox 100 10/19/23 14:30 FiO2 35 10/18/23 10:41 Intake & Output 10/18/23 10/19/23 10/19/23 18:59 06:59 18:59 Intake Total 1238.730 725.826 343.923 Output Total 2598 265 115 Balance -1359.270 460.826 228.923 Weight 105 kg 100.7 kg Intake: IV 635 432 318 .9NS Cardiac Output 70 .9NS Pressure Bag 105 72 48 Lactated Ringers 1,000 ml 460 360 270 @ 20 mls/hr IV .Q24H [facility] Rx#:[id number] Intake, IV Titration 203.730 43.826 25.923 Amount ACETAMINOPHEN IV (For NPO 100 ) 1,000 mg In Empty Bag 1 bag @ 400 mls/hr IVPB ONCE STA Rx#:[id number] Clevidipine Butyrate 25 1.266 mg In Empty Bag 1 bag @ 1 MG/HR 2 mls/hr IV .Q24H [facility] Rx#:[id number] Dexmedetomidine/0.9% NaCl 13.514 (Pmx) 400 mcg In Empty Bag 1 bag @ Titrate IV . Q0M [facility] Rx#:[id number] Insulin Regular 100 unit 29.139 43.826 25.923 In Sodium Chloride 0.9% 100 ml @ Per Protocol IV .Q0M [facility] Rx#:[id number] propofoL 1,000 mg In 59.811 Empty Bag 1 bag @ Titrate IV .Q0M [facility] Rx#: [id number] Oral 250 Hemodialysis 400 Output: Chest Tube Drainage 108 90 40 Left adn Right Chest Tube 40 10 40 Mediastinal Chest Tube 68 80 0 Urine 90 175 75 Hemodialysis 2400 Other: Voiding Method Indwelling Catheter Indwelling Catheter Urinal ABP, PAP, CO, CI - Last Documented Arterial Blood Pressure 98/28 Pulmonary Artery Pressure 36/5 Cardiac Output 6.3 Cardiac Index 3 - Labs CBC & Chem 7: 10/19/23 02:09 10/19/23 07:28 Labs: Abnormal Lab Results - Last 24 Hours (Table) 10/18/23 10/18/23 10/18/23 Range/Units 17:20 18:08 19:09 RBC (4.30-5.90) m/uL Hgb (13.0-17.5) gm/dL Hct (39.0-53.0) % Plt Count (150-450) k/uL Neutrophils # (1.3-7.7) k/uL Lymphocytes # (1.0-4.8) k/uL Sodium (137-145) mmol/L Chloride (98-107) mmol/L BUN (9-20) mg/dL Creatinine (0.66-1.25) mg/dL POC Glucose (mg/dL) 122 H 127 H 126 H (70-110) mg/dL Total Protein (6.3-8.2) g/dL Albumin (3.5-5.0) g/dL 10/18/23 10/18/23 10/19/23 Range/Units 19:57 23:10 00:11 RBC (4.30-5.90) m/uL Hgb (13.0-17.5) gm/dL Hct (39.0-53.0) % Plt Count (150-450) k/uL Neutrophils # (1.3-7.7) k/uL Lymphocytes # (1.0-4.8) k/uL Sodium (137-145) mmol/L Chloride (98-107) mmol/L BUN (9-20) mg/dL Creatinine (0.66-1.25) mg/dL POC Glucose (mg/dL) 114 H 137 H 132 H (70-110) mg/dL Total Protein (6.3-8.2) g/dL Albumin (3.5-5.0) g/dL 10/19/23 10/19/23 10/19/23 Range/Units 00:57 02:09 02:09 RBC 2.81 L (4.30-5.90) m/uL Hgb 9.4 L (13.0-17.5) gm/dL Hct 26.7 L (39.0-53.0) % Plt Count 92 L (150-450) k/uL Neutrophils # 8.7 H (1.3-7.7) k/uL Lymphocytes # 0.6 L (1.0-4.8) k/uL Sodium 133 L (137-145) mmol/L Chloride 96 L (98-107) mmol/L BUN 41 H (9-20) mg/dL Creatinine 3.86 H (0.66-1.25) mg/dL POC Glucose (mg/dL) 124 H (70-110) mg/dL Total Protein 6.1 L (6.3-8.2) g/dL Albumin 3.3 L (3.5-5.0) g/dL 10/19/23 10/19/23 10/19/23 Range/Units 04:18 05:19 09:12 RBC (4.30-5.90) m/uL Hgb (13.0-17.5) gm/dL Hct (39.0-53.0) % Plt Count (150-450) k/uL Neutrophils # (1.3-7.7) k/uL Lymphocytes # (1.0-4.8) k/uL Sodium (137-145) mmol/L Chloride (98-107) mmol/L BUN (9-20) mg/dL Creatinine (0.66-1.25) mg/dL POC Glucose (mg/dL) 123 H 117 H 128 H (70-110) mg/dL Total Protein (6.3-8.2) g/dL Albumin (3.5-5.0) g/dL 10/19/23 10/19/23 10/19/23 Range/Units 10:18 11:08 12:10 RBC (4.30-5.90) m/uL Hgb (13.0-17.5) gm/dL Hct (39.0-53.0) % Plt Count (150-450) k/uL Neutrophils # (1.3-7.7) k/uL Lymphocytes # (1.0-4.8) k/uL Sodium (137-145) mmol/L Chloride (98-107) mmol/L BUN (9-20) mg/dL Creatinine (0.66-1.25) mg/dL POC Glucose (mg/dL) 156 H 150 H 170 H (70-110) mg/dL Total Protein (6.3-8.2) g/dL Albumin (3.5-5.0) g/dL 10/19/23 10/19/23 10/19/23 Range/Units 13:17 14:13 15:03 RBC (4.30-5.90) m/uL Hgb (13.0-17.5) gm/dL Hct (39.0-53.0) % Plt Count (150-450) k/uL Neutrophils # (1.3-7.7) k/uL Lymphocytes # (1.0-4.8) k/uL Sodium (137-145) mmol/L Chloride (98-107) mmol/L BUN (9-20) mg/dL Creatinine (0.66-1.25) mg/dL POC Glucose (mg/dL) 164 H 136 H 122 H (70-110) mg/dL Total Protein (6.3-8.2) g/dL Albumin (3.5-5.0) g/dL
[2023-10-19 17:09] LABS: Glucose,Whole Blood 54 mg/dL (70-110)
[2023-10-19] MEDS: DEXTROSE 50% SYRINGE 50 ML IVP PRN (17:11)
[2023-10-19] MEDS: MAGNESIUM HYDROXIDE 2,400 MG/30 ML CUP PO PRN (17:11)
[2023-10-19 17:32] LABS: Glucose,Whole Blood 117 mg/dL (70-110)
[2023-10-19 18:10] LABS: Glucose,Whole Blood 175 mg/dL (70-110)
[2023-10-19 18:59] LABS: Glucose,Whole Blood 197 mg/dL (70-110)
[2023-10-19 20:00] LABS: Glucose,Whole Blood 181 mg/dL (70-110)
[2023-10-19 21:11] LABS: Glucose,Whole Blood 135 mg/dL (70-110)
[2023-10-19 22:05] LABS: Glucose,Whole Blood 109 mg/dL (70-110)
[2023-10-19 23:13] LABS: Glucose,Whole Blood 129 mg/dL (70-110)
[2023-10-20 00:08] LABS: Glucose,Whole Blood 118 mg/dL (70-110)
[2023-10-20 01:10] LABS: Glucose,Whole Blood 107 mg/dL (70-110)
[2023-10-20 02:12] LABS: Glucose,Whole Blood 109 mg/dL (70-110)
[2023-10-20 03:00] LABS: Glucose,Whole Blood 103 mg/dL (70-110)
[2023-10-20 04:23] LABS: Glucose,Whole Blood 162 mg/dL (70-110)
[2023-10-20 04:57] LABS: Basophils % (A) 0 %; Eosinophils # (A) 0.2 k/uL (0-0.7); Eosinophils % (A) 3 %; HCT 26.1 % (39.0-53.0); HGB 8.6 gm/dL (13.0-17.5); Lymphocytes # (A) 0.5 k/uL (1.0-4.8); Lymphocytes % (A) 6 %; MCH 32.2 pg (25.0-35.0); MCHC 32.9 g/dL (31.0-37.0); MCV 97.7 fL (80.0-100.0); Mean Platelet Volume 9.4; Monocytes # (A) 0.4 k/uL (0-1.0); Monocytes % (A) 5 %; Neutrophils # (A) 6.7 k/uL (1.3-7.7); Neutrophils % (A) 83 %; RBC 2.67 m/uL (4.30-5.90); RDW 13.6 % (11.5-15.5); WBC 8.1 k/uL (3.8-10.6)
[2023-10-20] MEDS: bisacodyL 10 MG SUPP RECTAL PRN (04:58)
[2023-10-20 05:13] LABS: Glucose,Whole Blood 134 mg/dL (70-110)
[2023-10-20 05:31] LABS: Platelet Count 98 k/uL (150-450)
[2023-10-20 06:43] LABS: Glucose,Whole Blood 134 mg/dL (70-110)
[2023-10-20 06:49] LABS: ALT 10 U/L (4-49); AST 49 U/L (17-59); African American GFR (CKD) 11 (>60 ml/min/1.73 sqM); Albumin 3.6 g/dL (3.5-5.0); Alkaline Phosphatase 142 U/L (38-126); Anion Gap 17 mmol/L; Blood Urea Nitrogen 59 mg/dL (9-20); Calcium 8.6 mg/dL (8.4-10.2); Carbon Dioxide 22 mmol/L (22-30); Chloride 94 mmol/L (98-107); Glucose 132 mg/dL (74-99); Magnesium 2.3 mg/dL (1.6-2.3); Non-African American GFR(CKD) 9 (>60 ml/min/1.73 sqM); Potassium 5.1 mmol/L (3.5-5.1); Sodium 133 mmol/L (137-145); Total Protein 6.3 g/dL (6.3-8.2)
[2023-10-20 08:23] LABS: Glucose,Whole Blood 178 mg/dL (70-110)
--- NOTE | 2023-10-20 08:27 | XR ---
EXAMINATION TYPE: XR chest 2V DATE OF EXAM: 10/20/2023 6:29 AM CLINICAL INDICATION:Male, 72 years old with history of post op CABG; [facility] COMPARISON: Chest radiographs from 10/19/2023 TECHNIQUE: XR chest 2V Frontal and lateral views of the chest. FINDINGS: Lungs/Pleura: There is no evidence of pleural effusion, focal consolidation, or pneumothorax. Pulmonary vascularity: Unremarkable. Heart/mediastinum: Cardiomediastinal silhouette is unremarkable. Left atrial appendage occlusion catia ce is present. Musculoskeletal: No acute osseous pathology. Midline sternotomy wires are noted. Other findings: None Lines/Tubes: IMPRESSION: No acute cardiopulmonary disease/process.
[2023-10-20 09:03] LABS: Glucose,Whole Blood 188 mg/dL (70-110)
--- NOTE | 2023-10-20 09:53 | P.PN ---
Subjective Patient is seen for follow-up for end-stage renal disease. Status post coronary artery bypass surgery on 10/17/2023 Doing well. Chest tubes are out Patient had a bowel movement. Tolerated oral intake this morning. Currently seen on hemodialysis. Tolerating treatment well. Objective - Vital Signs Vital signs: Vital Signs Temp 98.5 F 10/20/23 08:00 Pulse 81 10/20/23 08:00 Resp 13 10/20/23 08:00 BP 115/66 10/20/23 08:00 Pulse Ox 97 10/20/23 08:00 FiO2 35 10/18/23 10:41 Intake & Output 10/19/23 10/20/23 10/20/23 18:59 06:59 18:59 Intake Total 683.923 293.279 32.524 Output Total 115 0 Balance 568.923 293.279 32.524 Weight 101.6 kg Intake: IV 408 260 20 .9NS Pressure Bag 48 Lactated Ringers 1,000 ml 360 260 20 @ 20 mls/hr IV .Q24H [facility] Rx#:[id number] Intake, IV Titration 25.923 33.279 12.524 Amount Insulin Regular 100 unit 25.923 33.279 12.524 In Sodium Chloride 0.9% 100 ml @ Per Protocol IV .Q0M [facility] Rx#:[id number] Oral 250 Output: Chest Tube Drainage 40 Left adn Right Chest Tube 40 Mediastinal Chest Tube 0 Urine 75 0 Other: Voiding Method Urinal Urinal # Bowel Movements 1 ABP, PAP, CO, CI - Last Documented Arterial Blood Pressure 98/28 Pulmonary Artery Pressure 36/5 Cardiac Output 6.3 Cardiac Index 3 - Exam Patient is awake, comfortable, alert oriented 3 No acute distress Examination of the heart S1 and S2 Examination the lungs decreased breath sounds Abdomen is soft nontender Examination of lower extremity shows no significant edema 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 exam grossly intact - Labs CBC & Chem 7: 10/20/23 04:35 10/20/23 05:53 Labs: Abnormal Lab Results - Last 24 Hours (Table) 10/19/23 10/19/23 10/19/23 Range/Units 10:18 11:08 12:10 RBC (4.30-5.90) m/uL Hgb (13.0-17.5) gm/dL Hct (39.0-53.0) % Plt Count (150-450) k/uL Lymphocytes # (1.0-4.8) k/uL Sodium (137-145) mmol/L Chloride (98-107) mmol/L BUN (9-20) mg/dL Creatinine (0.66-1.25) mg/dL Glucose (74-99) mg/dL POC Glucose (mg/dL) 156 H 150 H 170 H (70-110) mg/dL Alkaline Phosphatase (38-126) U/L 10/19/23 10/19/23 10/19/23 Range/Units 13:17 14:13 15:03 RBC (4.30-5.90) m/uL Hgb (13.0-17.5) gm/dL Hct (39.0-53.0) % Plt Count (150-450) k/uL Lymphocytes # (1.0-4.8) k/uL Sodium (137-145) mmol/L Chloride (98-107) mmol/L BUN (9-20) mg/dL Creatinine (0.66-1.25) mg/dL Glucose (74-99) mg/dL POC Glucose (mg/dL) 164 H 136 H 122 H (70-110) mg/dL Alkaline Phosphatase (38-126) U/L 10/19/23 10/19/23 10/19/23 Range/Units 17:08 17:30 18:09 RBC (4.30-5.90) m/uL Hgb (13.0-17.5) gm/dL Hct (39.0-53.0) % Plt Count (150-450) k/uL Lymphocytes # (1.0-4.8) k/uL Sodium (137-145) mmol/L Chloride (98-107) mmol/L BUN (9-20) mg/dL Creatinine (0.66-1.25) mg/dL Glucose (74-99) mg/dL POC Glucose (mg/dL) 54 L 117 H 175 H (70-110) mg/dL Alkaline Phosphatase (38-126) U/L 10/19/23 10/19/23 10/19/23 Range/Units 18:57 19:58 21:10 RBC (4.30-5.90) m/uL Hgb (13.0-17.5) gm/dL Hct (39.0-53.0) % Plt Count (150-450) k/uL Lymphocytes # (1.0-4.8) k/uL Sodium (137-145) mmol/L Chloride (98-107) mmol/L BUN (9-20) mg/dL Creatinine (0.66-1.25) mg/dL Glucose (74-99) mg/dL POC Glucose (mg/dL) 197 H 181 H 135 H (70-110) mg/dL Alkaline Phosphatase (38-126) U/L 10/19/23 10/20/23 10/20/23 Range/Units 23:12 00:07 04:21 RBC (4.30-5.90) m/uL Hgb (13.0-17.5) gm/dL Hct (39.0-53.0) % Plt Count (150-450) k/uL Lymphocytes # (1.0-4.8) k/uL Sodium (137-145) mmol/L Chloride (98-107) mmol/L BUN (9-20) mg/dL Creatinine (0.66-1.25) mg/dL Glucose (74-99) mg/dL POC Glucose (mg/dL) 129 H 118 H 162 H (70-110) mg/dL Alkaline Phosphatase (38-126) U/L 10/20/23 10/20/23 10/20/23 Range/Units 04:35 05:11 05:53 RBC 2.67 L (4.30-5.90) m/uL Hgb 8.6 L (13.0-17.5) gm/dL Hct 26.1 L (39.0-53.0) % Plt Count 98 L (150-450) k/uL Lymphocytes # 0.5 L (1.0-4.8) k/uL Sodium 133 L (137-145) mmol/L Chloride 94 L (98-107) mmol/L BUN 59 H (9-20) mg/dL Creatinine 5.51 H (0.66-1.25) mg/dL Glucose 132 H (74-99) mg/dL POC Glucose (mg/dL) 134 H (70-110) mg/dL Alkaline Phosphatase 142 H (38-126) U/L 10/20/23 10/20/23 10/20/23 Range/Units 06:41 08:21 09:02 RBC (4.30-5.90) m/uL Hgb (13.0-17.5) gm/dL Hct (39.0-53.0) % Plt Count (150-450) k/uL Lymphocytes # (1.0-4.8) k/uL Sodium (137-145) mmol/L Chloride (98-107) mmol/L BUN (9-20) mg/dL Creatinine (0.66-1.25) mg/dL Glucose (74-99) mg/dL POC Glucose (mg/dL) 134 H 178 H 188 H (70-110) mg/dL Alkaline Phosphatase (38-126) U/L Assessment and Plan Assessment: 1. End-stage renal disease on hemodialysis on a Tuesday schedule 2. Volume overload, improved. 3. Status post coronary artery bypass surgery 2 on 10/17/2023 3. Anemia multifactorial including anemia of chronic disease and postop state. Currently stable. Will maintain patient on Aranesp. Plan: Continue Aranesp Maintain patient on hemodialysis on a Tuesday schedule unless extra treatment needed.
[2023-10-20 10:03] LABS: Glucose,Whole Blood 146 mg/dL (70-110)
--- NOTE | 2023-10-20 10:03 | P.PN ---
Subjective Progress Note Date: 10/20/23 Principal diagnosis: Coronary artery disease. Past medical history significant for stable angina, coronary artery disease with previous PCI, hypertension, hyperlipidemia, insulin-dependent diabetes mellitus, chronic diastolic heart failure, mild cardiomyopathy with ejection fraction of 50%, end-stage renal disease on hemodialysis Tuesdays, and Saturdays, history of myocardial infarction in 2006, chronic obstructive pulmonary disease, obstructive sleep apnea with no ncompliance of use of his CPAP, peripheral neuropathy, remote history of smoking quit in 1981, osteoarthritis and occasional constipation. POD #3 Off pump coronary artery bypass grafting x 2. Left internal thoracic artery (in-situ) to left anterior descending coronary artery. Saphenous vein from aorta to ramus intermedius, Coronary patch angioplasty to ramus intermedius, Left atrial appendage ligation using #35mm AtriClip, Endoscopic left greater saphenous vein harvest, intraoperative transesophageal echocardiogram performed by anesthesia. Postoperative acute blood loss anemia, expected given hemodilution. The patient was seen and examined in follow-up today October 20, 2023 at his bedside in the intensive care unit. He is currently sitting up to the bedside chair, is awake, alert, oriented x 3 and is in no acute apparent distress. The patient is having some episodes of hallucinations and is easily reoriented. His mediastinal/right and left pleural chest tubes were discontinued yesterday without incident. Bedside telemetry is showing normal sinus rhythm heart rate 87 bpm. Oxygen saturations are 98% on 2 L nasal cannula and he is achieving 2000 mL on his incentive spirometry with encouragement. He reports he has been up ambulating in the intensive care unit hallway this morning and tolerated well without complaints. He remains hemodynamically stable and is currently on no inotropic or pressor support. Ventricular epicardial pacemaker wires remain in place and are grounded. Chest x-ray and laboratory results were reviewed. Objective - Vital Signs Vital signs: Vital Signs Temp 98.5 F 10/20/23 08:00 Pulse 81 10/20/23 08:00 Resp 13 10/20/23 08:00 BP 115/66 10/20/23 08:00 Pulse Ox 97 10/20/23 08:00 FiO2 35 10/18/23 10:41 Intake & Output 10/19/23 10/20/23 10/20/23 18:59 06:59 18:59 Intake Total 683.923 293.279 20 Output Total 115 0 Balance 568.923 293.279 20 Weight 101.6 kg Intake: IV 408 260 20 .9NS Pressure Bag 48 Lactated Ringers 1,000 ml 360 260 20 @ 20 mls/hr IV .Q24H [facility] Rx#:[id number] Intake, IV Titration 25.923 33.279 Amount Insulin Regular 100 unit 25.923 33.279 In Sodium Chloride 0.9% 100 ml @ Per Protocol IV .Q0M [facility] Rx#:[id number] Oral 250 Output: Chest Tube Drainage 40 Left adn Right Chest Tube 40 Mediastinal Chest Tube 0 Urine 75 0 Other: Voiding Method Urinal Urinal # Bowel Movements 1 ABP, PAP, CO, CI - Last Documented Arterial Blood Pressure 98/28 Pulmonary Artery Pressure 36/5 Cardiac Output 6.3 Cardiac Index 3 - Exam CONSTITUTIONAL: Sitting up to the bedside chair in the intensive care unit, appears comfortable, cooperative, no apparent acute distress. HEENT: Neck is supple, no JVD, no lymphadenopathy. RESPIRATORY: Lungs sounds essentially clear throughout, diminished to his bilateral bases. Respirations are symmetrical and nonlabored. Currently on 2 L nasal cannula with oxygen saturations 98%. Able to achieve 2000 mL on his incentive spirometry. Strong cough. CARDIOVASCULAR: Regular rhythm and rate. S1 and S2 present, negative for S3, gallop or murmur. Sternum is stable. Palpable peripheral pulses bilaterally. No calf pain or tenderness noted. Heart hugger in place with patient demonstrating appropriate use. Knee-high ENMA hose and sequential compression devices in place to his bilateral lower extremities. GASTROINTESTINAL: Abdomen soft, nontender, nondistended. Active bowel sounds present 4 quadrants. Tolerating diet. Passing flatus. No guarding or rigidity. Bowel movement this a.m. GENITOURINARY: Left arm AV fistula with positive thrill and bruit. Hemodialysis pending this morning. No urine output in the last 8 hours. Bladder scan showed 150 mL. INTEGUMENTARY: Skin is warm and dry with no evidence of clubbing or cyanosis. Midline sternal incision clean dry and well approximated, covered with dry intact dressing. Left lower extremity EVH sites well approximated without redness or drainage. NEUROLOGIC: Cranial nerves II through XII intact. No focal deficits. MUSKULOSKELETAL: Able to move all extremities, strength equal bilaterally. PSYCHIATRIC: Alert and oriented to person place and time, appropriate affect, intact judgment and insight. INVASIVE LINES AND TUBES: Ventricular epicardial pacemaker wires present, and grounded. - Allied health notes Allied health notes reviewed: nursing - Labs CBC & Chem 7: 10/20/23 04:35 10/20/23 05:53 Labs: Abnormal Lab Results - Last 24 Hours (Table) 10/19/23 10/19/23 10/19/23 Range/Units 09:12 10:18 11:08 RBC (4.30-5.90) m/uL Hgb (13.0-17.5) gm/dL Hct (39.0-53.0) % Plt Count (150-450) k/uL Lymphocytes # (1.0-4.8) k/uL Sodium (137-145) mmol/L Chloride (98-107) mmol/L BUN (9-20) mg/dL Creatinine (0.66-1.25) mg/dL Glucose (74-99) mg/dL POC Glucose (mg/dL) 128 H 156 H 150 H (70-110) mg/dL Alkaline Phosphatase (38-126) U/L 10/19/23 10/19/23 10/19/23 Range/Units 12:10 13:17 14:13 RBC (4.30-5.90) m/uL Hgb (13.0-17.5) gm/dL Hct (39.0-53.0) % Plt Count (150-450) k/uL Lymphocytes # (1.0-4.8) k/uL Sodium (137-145) mmol/L Chloride (98-107) mmol/L BUN (9-20) mg/dL Creatinine (0.66-1.25) mg/dL Glucose (74-99) mg/dL POC Glucose (mg/dL) 170 H 164 H 136 H (70-110) mg/dL Alkaline Phosphatase (38-126) U/L 10/19/23 10/19/23 10/19/23 Range/Units 15:03 17:08 17:30 RBC (4.30-5.90) m/uL Hgb (13.0-17.5) gm/dL Hct (39.0-53.0) % Plt Count (150-450) k/uL Lymphocytes # (1.0-4.8) k/uL Sodium (137-145) mmol/L Chloride (98-107) mmol/L BUN (9-20) mg/dL Creatinine (0.66-1.25) mg/dL Glucose (74-99) mg/dL POC Glucose (mg/dL) 122 H 54 L 117 H (70-110) mg/dL Alkaline Phosphatase (38-126) U/L 10/19/23 10/19/23 10/19/23 Range/Units 18:09 18:57 19:58 RBC (4.30-5.90) m/uL Hgb (13.0-17.5) gm/dL Hct (39.0-53.0) % Plt Count (150-450) k/uL Lymphocytes # (1.0-4.8) k/uL Sodium (137-145) mmol/L Chloride (98-107) mmol/L BUN (9-20) mg/dL Creatinine (0.66-1.25) mg/dL Glucose (74-99) mg/dL POC Glucose (mg/dL) 175 H 197 H 181 H (70-110) mg/dL Alkaline Phosphatase (38-126) U/L 10/19/23 10/19/23 10/20/23 Range/Units 21:10 23:12 00:07 RBC (4.30-5.90) m/uL Hgb (13.0-17.5) gm/dL Hct (39.0-53.0) % Plt Count (150-450) k/uL Lymphocytes # (1.0-4.8) k/uL Sodium (137-145) mmol/L Chloride (98-107) mmol/L BUN (9-20) mg/dL Creatinine (0.66-1.25) mg/dL Glucose (74-99) mg/dL POC Glucose (mg/dL) 135 H 129 H 118 H (70-110) mg/dL Alkaline Phosphatase (38-126) U/L 10/20/23 10/20/23 10/20/23 Range/Units 04:21 04:35 05:11 RBC 2.67 L (4.30-5.90) m/uL Hgb 8.6 L (13.0-17.5) gm/dL Hct 26.1 L (39.0-53.0) % Plt Count 98 L (150-450) k/uL Lymphocytes # 0.5 L (1.0-4.8) k/uL Sodium (137-145) mmol/L Chloride (98-107) mmol/L BUN (9-20) mg/dL Creatinine (0.66-1.25) mg/dL Glucose (74-99) mg/dL POC Glucose (mg/dL) 162 H 134 H (70-110) mg/dL Alkaline Phosphatase (38-126) U/L 10/20/23 10/20/23 10/20/23 Range/Units 05:53 06:41 08:21 RBC (4.30-5.90) m/uL Hgb (13.0-17.5) gm/dL Hct (39.0-53.0) % Plt Count (150-450) k/uL Lymphocytes # (1.0-4.8) k/uL Sodium 133 L (137-145) mmol/L Chloride 94 L (98-107) mmol/L BUN 59 H (9-20) mg/dL Creatinine 5.51 H (0.66-1.25) mg/dL Glucose 132 H (74-99) mg/dL POC Glucose (mg/dL) 134 H 178 H (70-110) mg/dL Alkaline Phosphatase 142 H (38-126) U/L - Imaging and Cardiology Chest x-ray: report reviewed, image reviewed Assessment and Plan Assessment: Coronary artery disease with left main disease, 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, status post two-vessel coronary artery bypass grafting Chronic diastolic heart failure Mild cardiomyopathy with an ejection fraction of 50% History of myocardial infarction Chronic kidney disease, on hemodialysis Tuesdays and Saturdays Hypertension Hyperlipidemia Insulin-dependent diabetes mellitus, with a preoperative hemoglobin A1c of 7.8% Chronic fatigue COPD with a preoperative FEV1 78% of predicted value with a base volume of 2.01 Obstructive sleep apnea, noncompliant with CPAP use History of constipation Remote history of nicotine dependence, quit smoking 1982 Neuropathy Orthostatic hypotension Plan: Continue aspirin, home dose of statin, Zetia, Plavix and beta-narcisa with hold parameters. Increase metoprolol to tartrate to 25 mg p.o. twice daily with hold parameters. Wean oxygen as tolerated. Bronchodilator management per Dr. Potter's recommendations. Increase activity as tolerated. PT/OT/cardiac rehab following. Will monitor daily labs and chest x-rays. Electrolyte replacement per protocol We will remove his ventricular epicardial pacemaker wires today, bedrest for 1 hour post pacemaker wire removal. Dialysis management per nephrology recommendations. Pain control per current as needed regimen. Avoid nephrotoxic agents. Oxycodone discontinued, use acetaminophen for pain control. Continue to record strict accurate intake and output. Bladder scan every 6 hours and as needed postvoid residual, if greater than 300 mL of urine straight cath. Insulin management per internal medicine, patient should remain on continuous IV insulin for minimum of 48 hours, then may transition to subcutaneous per protocol GI/DVT prophylaxis. Daily weights. Shower daily. More recommendations to follow based on patient's clinical course. Time with Patient: Greater than 30
[2023-10-20 11:10] LABS: Glucose,Whole Blood 107 mg/dL (70-110)
[2023-10-20 12:17] LABS: Glucose,Whole Blood 111 mg/dL (70-110)
--- NOTE | 2023-10-20 12:34 | P.ANPRN ---
Procedure Note - Anesthesia - Invasive Line Left Central Line Time Out Performed: Yes Date of Procedure: 10/17/23 Time of Procedure: 08:21 Location of Patient: PreOp Preparation: Sterile Prep, Sterile Dressing Central Line Location: Internal Jugular Ultrasound Used: No Purpose - Visualization and Identification of Vasculature: No Image Stored and Saved: No Narrative: Invasive line placement per sterile protocol utilized.
--- NOTE | 2023-10-20 12:35 | P.ANPRN ---
Procedure Note - Anesthesia - Invasive Line Left [place] Pb Time Out Performed: Yes Date of Procedure: 10/17/23 Time of Procedure: 08:24 Location of Patient: PreOp Preparation: Sterile Prep, Sterile Dressing Central Line Location: Internal Jugular Ultrasound Used: No Purpose - Visualization and Identification of Vasculature: No Image Stored and Saved: No Narrative: Invasive line placement per sterile protocol utilized.
[2023-10-20 13:10] LABS: Glucose,Whole Blood 103 mg/dL (70-110)
[2023-10-20] MEDS: DARBEPOETIN ALFA 60 MCG/0.3 ML SYRINGE SQ SCH (13:13)
--- NOTE | 2023-10-20 14:38 | P.PN ---
Subjective HISTORY OF PRESENTING ILLNESS Patient is pleasant 72-year-old male with history of diabetes mellitus type 2, hypertension, hyperlipidemia, CAD with previous PCI, end-stage renal disease on hemodialysis, chronic diastolic heart failure, remote tobacco abuse, COPD, obstructive sleep apnea, osteoarthritis. Patient follows in the office with myself. He has been having issues with fatigue as well as chest pain and shortness breath. Initially much of his issues were related to heart failure and eventually underwent dialysis with significant amount of fluid removal and had some improvement. Unfortunately he continued to have significant and wo rsening dyspnea on exertion and repeat heart catheterization that showed progression of left main disease and therefore recommended bypass surgery. Patient underwent successful off-pump CABG on 10/16 with a TIAN to LAD and SVG to ramus as well as left atrial appendage clip. He was placed on amiodarone per protocol however did have some bradycardia intermittently. He was unable to be extubated secondary to fluid retention and did have dialysis this morning with approximately 2 L taken off with better oxygenation and able to be extubated at approximately noon. He currently admits to feeling significantly sore however otherwise no significant chest pain or shortness breath. Blood work today creatinine 4.5, AST 75, ALT 33, hemoglobin 9.7, platelets 103. 10/18 Patient seen and examined. Patient had an arterial line removed today as well as expected to have chest tubes removed. He still does have some positional, musculoskeletal chest pain. He denies any significant shortness breath. He is scheduled to undergo hemodialysis tomorrow. 10/19 Patient seen and examined. Patient had pacemaker wires removed today. He underwent dialysis. He is able to walk the halls and working with physical therapy. Denies any chest pain or pressure. PHYSICAL EXAMINATION Vital signs reviewed. CONSTITUTIONAL: No apparent distress. HEENT: Head is normocephalic. Pupils are equal, round. Sclerae anicteric. Mucous membranes of the mouth are moist. No JVD. No carotid bruit. CHEST EXAMINATION: Lungs are clear to auscultation. No chest wall tenderness is noted on palpation or with deep breathing. HEART EXAMINATION: Regular rate and rhythm. S1, S2 heard. No murmurs, gallops or rub. ABDOMEN: Soft, nontender. Positive bowel sounds. EXTREMITIES: 2+ peripheral pulses, no lower extremity edema and no calf tenderness. NEUROLOGIC EXAMINATION: Patient is awake, alert and oriented x3. ASSESSMENT 1. CAD status post previous PCI and most recently status post TIAN to LAD, SVG to ramus 10/16 2. Hypertension 3. Acute on chronic diastolic heart failure 4. End-stage renal disease on hemodialysis 5. Anemia 6. Thrombocytopenia 7. Diabetes mellitus type 2 8. Obstructive sleep apnea and PLAN Patient continues to make small improvements. He underwent dialysis today and continue with fluid removal with dialysis. Appears a improving and hopeful discharge in next 24-48 hours. Objective - Vital Signs Vital signs: Vital Signs Temp 98.4 F 10/20/23 12:00 Pulse 78 10/20/23 13:00 Resp 15 10/20/23 13:00 BP 119/53 10/20/23 13:00 Pulse Ox 96 10/20/23 12:00 FiO2 35 10/18/23 10:41 Intake & Output 10/19/23 10/20/23 10/20/23 18:59 06:59 18:59 Intake Total 683.923 293.279 344.913 Output Total 115 0 300 Balance 568.923 293.279 44.913 Weight 101.6 kg Intake: IV 408 260 20 .9NS Pressure Bag 48 Lactated Ringers 1,000 ml 360 260 20 @ 20 mls/hr IV .Q24H JOEY Rx#:[id number] Intake, IV Titration 25.923 33.279 24.913 Amount Insulin Regular 100 unit 25.923 33.279 24.913 In Sodium Chloride 0.9% 100 ml @ Per Protocol IV .Q0M JOEY Rx#:[id number] Oral 250 300 Output: Chest Tube Drainage 40 Left adn Right Chest Tube 40 Mediastinal Chest Tube 0 Urine 75 0 300 Other: Voiding Method Urinal Urinal Urinal # Bowel Movements 1 ABP, PAP, CO, CI - Last Documented Arterial Blood Pressure 98/28 Pulmonary Artery Pressure 36/5 Cardiac Output 6.3 Cardiac Index 3 - Labs CBC & Chem 7: 10/20/23 04:35 10/20/23 05:53 Labs: Abnormal Lab Results - Last 24 Hours (Table) 10/19/23 10/19/23 10/19/23 Range/Units 15:03 17:08 17:30 RBC (4.30-5.90) m/uL Hgb (13.0-17.5) gm/dL Hct (39.0-53.0) % Plt Count (150-450) k/uL Lymphocytes # (1.0-4.8) k/uL Sodium (137-145) mmol/L Chloride (98-107) mmol/L BUN (9-20) mg/dL Creatinine (0.66-1.25) mg/dL Glucose (74-99) mg/dL POC Glucose (mg/dL) 122 H 54 L 117 H (70-110) mg/dL Alkaline Phosphatase (38-126) U/L 10/19/23 10/19/23 10/19/23 Range/Units 18:09 18:57 19:58 RBC (4.30-5.90) m/uL Hgb (13.0-17.5) gm/dL Hct (39.0-53.0) % Plt Count (150-450) k/uL Lymphocytes # (1.0-4.8) k/uL Sodium (137-145) mmol/L Chloride (98-107) mmol/L BUN (9-20) mg/dL Creatinine (0.66-1.25) mg/dL Glucose (74-99) mg/dL POC Glucose (mg/dL) 175 H 197 H 181 H (70-110) mg/dL Alkaline Phosphatase (38-126) U/L 10/19/23 10/19/23 10/20/23 Range/Units 21:10 23:12 00:07 RBC (4.30-5.90) m/uL Hgb (13.0-17.5) gm/dL Hct (39.0-53.0) % Plt Count (150-450) k/uL Lymphocytes # (1.0-4.8) k/uL Sodium (137-145) mmol/L Chloride (98-107) mmol/L BUN (9-20) mg/dL Creatinine (0.66-1.25) mg/dL Glucose (74-99) mg/dL POC Glucose (mg/dL) 135 H 129 H 118 H (70-110) mg/dL Alkaline Phosphatase (38-126) U/L 10/20/23 10/20/23 10/20/23 Range/Units 04:21 04:35 05:11 RBC 2.67 L (4.30-5.90) m/uL Hgb 8.6 L (13.0-17.5) gm/dL Hct 26.1 L (39.0-53.0) % Plt Count 98 L (150-450) k/uL Lymphocytes # 0.5 L (1.0-4.8) k/uL Sodium (137-145) mmol/L Chloride (98-107) mmol/L BUN (9-20) mg/dL Creatinine (0.66-1.25) mg/dL Glucose (74-99) mg/dL POC Glucose (mg/dL) 162 H 134 H (70-110) mg/dL Alkaline Phosphatase (38-126) U/L 10/20/23 10/20/23 10/20/23 Range/Units 05:53 06:41 08:21 RBC (4.30-5.90) m/uL Hgb (13.0-17.5) gm/dL Hct (39.0-53.0) % Plt Count (150-450) k/uL Lymphocytes # (1.0-4.8) k/uL Sodium 133 L (137-145) mmol/L Chloride 94 L (98-107) mmol/L BUN 59 H (9-20) mg/dL Creatinine 5.51 H (0.66-1.25) mg/dL Glucose 132 H (74-99) mg/dL POC Glucose (mg/dL) 134 H 178 H (70-110) mg/dL Alkaline Phosphatase 142 H (38-126) U/L 10/20/23 10/20/23 10/20/23 Range/Units 09:02 10:02 12:16 RBC (4.30-5.90) m/uL Hgb (13.0-17.5) gm/dL Hct (39.0-53.0) % Plt Count (150-450) k/uL Lymphocytes # (1.0-4.8) k/uL Sodium (137-145) mmol/L Chloride (98-107) mmol/L BUN (9-20) mg/dL Creatinine (0.66-1.25) mg/dL Glucose (74-99) mg/dL POC Glucose (mg/dL) 188 H 146 H 111 H (70-110) mg/dL Alkaline Phosphatase (38-126) U/L
[2023-10-20] MEDS: METOPROLOL TARTRATE 12.5 MG TAB PO ONE (14:48)
[2023-10-20 16:04] LABS: Glucose,Whole Blood 215 mg/dL (70-110)
--- NOTE | 2023-10-20 16:20 | P.PN ---
Subjective Progress Note Date: 10/20/23 This is a 72-year-old male patient was being seen in the intensive care unit following his cardiac surgery. The patient i has a known history of coronary artery disease, he has undergone previous PCI, chronic diastolic heart failure with a preserved ejection fraction of 50%, end-stage renal disease on h emodialysis 3 times a week, TTS, insulin-dependent diabetes mellitus, hypertension hyperlipidemia and previous history of obstructive sleep apnea and remote history of smoking and the patient quit smoking back in 1981. I have also seen him in the hospital for previous episodes of staphylococcal sepsis. This was related to a permacath infection. The patient has been having episodes of chest pain started in early September 2023. At that time, his troponins were positive and a catheterization was done on 10/03/2023 that showed 60% stenosis in the mid to distal left main, 50 to 60% stenosis of the mid LAD, 100% stenosis of the circumflex and a 50 to 60% stenosis of the mid RCA. At that point, the patient was advised to undergo cardiac revascularization surgery. The patient underwent a off-pump cardiac bypass x 2 with TIAN to LAD and saphenous vein graft to ramus intermedius. Currently, the patient is in the intensive care unit, intubated on mechanical ventilator. He is a bit restless on propofol which is being weaned off. The patient is intubated, assist-control mode rate of 16, tidal volume of 450, FiO2 has been weaned down to 35% with a PEEP of 5. His chest x-ray in the ICU showed increased pulm vascular marking and congestion. Cardiomegaly. Postthoracotomy changes. The patient has an orotracheal tube was in a good location. The patient also has a Salvisa-Pb catheter in place. As far as tubes, the patient has a right and a left pleural chest tube and mediastinal chest tube. No evidence of any pneumothorax. The blood gases showed a pH of 7.43 with a pCO2 of 42 and pO2 of 277 and this was on 100% FiO2. His current cardiac output is 5.4 with an index of 2.5. PA pressures of 58/25 mmHg. He is on nitroglycerin drip running at 5 mcg/kg/min. He is also on amiodarone drip running at 1 mg/min. His cardiac rhythm is sinus with occasional pacing. Pulse ox is 98%. Arousable and somewhat rested yeah restless yet he is following simple commands. Urine output is minimal as the patient has end-stage renal disease. On today's evaluation of 10/18/2023, the patient is being seen for a follow-up. The patient remains intubated on the mechanical ventilator. Unable to wean this patient off the mechanical ventilator as the patient has difficulties in performing spontaneous breathing trial and he was becoming restless, agitated, tachypneic and he would develop hemodynamic instability and elevation of the PA pressures. Based on that, the trial was aborted. The plan was discussed with the cardiothoracic surgeon. The plan was to proceed with hemodialysis today and following that, the patient may potentially extubate. As such, hemodialysis was started this morning and the goal is to dialyze the patient and ultrafiltration for a total of 2 L. His current rhythm is sinus with occasional bradycardia, VVI pacing at 40 and he has occasional PVCs. He remains intubated on the mechanical ventilator. He is on assist-control mode rate of 16, tidal volume of 450, FiO2 is down to 35% with a PEEP of 5. Chest x-ray shows mild interstitial markings bilaterally. Tubes are in good location. Orotracheal tube is in good location. There is no evidence of any pneumothorax. He remains on propofol at 30 mcg/kg/min. Insulin drip is on hold and the patient is on nitroglycerin drip at 5 mcg/min. The pulmonary artery pressures are 37/14. Cardiac output is at 4.9 with an index of 2.3. The right and the left pleural chest tube has put out a total of 210 cc since surgery and the mediastinal chest tube is put out 200 cc since surgery. No evidence of any air leak. Hemodynamically stable. No pressors. No fever. On today's evaluation of 10/19/2023, the patient is being seen for a follow-up. The patient was weaned off the mechanical ventilator and the patient was extubated yesterday without any major difficulties. The patient is currently postop day #2. He is sitting up on the chair and is calm and level. He is using the incentive spirometer and is putting approximately 500 cc he is on 2 L of oxygen by nasal cannula with a pulse ox of 99%. The chest x-ray from today shows adequate expansion of both lungs. The patient has a right pleural and left lower chest tube and mediastinal chest tube. The Salvisa-Pb catheter has been removed on the chest x-ray. No evidence of any pneumothorax. No significant pleural effusion. The output from the chest tubes have been minimal, I noted that the patient's mediastinal chest tube has produced only 500 cc since OR and the pleural chest tubes have produced only 300 cc since OR. Cardiac rhythm is sinus. The patient has a WBC count of 10.2 with a hemoglobin 9.4 and platelet count of 92. BUN is at 31 with a creatinine of 3.86 and his sodium levels at 133 with a potassium level of 4.6. No other significant events overnight. Neurologically intact and communicating and answering questions appropriately. He is on a combination of aspirin and metoprolol 12.5 mg twice daily and Plavix 75 mg p.o. daily. Nitroglycerin drip has been discontinued. The patient is not utilizing insulin drip and he uses an insulin pump on outpatient basis. Currently is only on sliding scale insulin coverage. On today's evaluation of 10/20/2023, the patient is being seen for a follow-up. The patient is doing well. No specific complaints. The patient is undergoing hemodialysis today and the goal of ultrafiltration is around 2 L. The patient remains on oxygen 2 L/min nasal cannula. Follow-up chest rhythm removed and the patient's cardiac rhythm is sinus. The patient remains on insulin drip at 3 units an hour for blood sugar control. Using incentive spirometer. Communicating. Moving all 4 extremities. Chest x-ray was noted and there is essentially some postsurgical atelectatic change in lung base bilaterally. Otherwise no other acute abnormalities have been noted. No evidence of any p neumothorax. The patient is currently postop day #3. Blood work from today shows a WBC count of 8.1, hemoglobin 8.6 and a platelet count of 98. BUN is 59 with a creatinine of 5.5 and a sodium levels at 133. Objective - Vital Signs Vital signs: Vital Signs Temp 98.5 F 10/20/23 08:00 Pulse 81 10/20/23 08:00 Resp 13 10/20/23 08:00 BP 115/66 10/20/23 08:00 Pulse Ox 97 10/20/23 08:00 FiO2 35 10/18/23 10:41 Intake & Output 10/19/23 10/20/23 10/20/23 18:59 06:59 18:59 Intake Total 683.923 293.279 29.393 Output Total 115 0 Balance 568.923 293.279 29.393 Weight 101.6 kg Intake: IV 408 260 20 .9NS Pressure Bag 48 Lactated Ringers 1,000 ml 360 260 20 @ 20 mls/hr IV .Q24H JOEY Rx#:[id number] Intake, IV Titration 25.923 33.279 9.393 Amount Insulin Regular 100 unit 25.923 33.279 9.393 In Sodium Chloride 0.9% 100 ml @ Per Protocol IV .Q0M JOEY Rx#:[id number] Oral 250 Output: Chest Tube Drainage 40 Left adn Right Chest Tube 40 Mediastinal Chest Tube 0 Urine 75 0 Other: Voiding Method Urinal Urinal # Bowel Movements 1 ABP, PAP, CO, CI - Last Documented Arterial Blood Pressure 98/28 Pulmonary Artery Pressure 36/5 Cardiac Output 6.3 Cardiac Index 3 - Exam CONSTITUTIONAL: Sitting up to the bedside chair in the intensive care unit, appears comfortable, cooperative, no apparent acute distress. HEENT: Neck is supple, no JVD, no lymphadenopathy. RESPIRATORY: Lungs sounds essentially clear throughout, diminished to his bilateral bases. Respirations are symmetrical and nonlabored. Currently on 2 L nasal cannula with oxygen saturations 98%. Able to achieve 2000 mL on his incentive spirometry. Strong cough. CARDIOVASCULAR: Regular rhythm and rate. S1 and S2 present, negative for S3, gallop or murmur. Sternum is stable. Palpable peripheral pulses bilaterally. No calf pain or tenderness noted. Heart hugger in place with patient demonstrating appropriate use. Knee-high ENMA hose and sequential compression devices in place to his bilateral lower extremities. GASTROINTESTINAL: Abdomen soft, nontender, nondistended. Active bowel sounds present 4 quadrants. Tolerating diet. Passing flatus. No guarding or rigidity. Bowel movement this a.m. GENITOURINARY: Left arm AV fistula with positive thrill and bruit. Hemodialysis pending this morning. No urine output in the last 8 hours. Bladder scan showed 150 mL. INTEGUMENTARY: Skin is warm and dry with no evidence of clubbing or cyanosis. Midline sternal incision clean dry and well approximated, covered with dry intact dressing. Left lower extremity EVH sites well approximated without redness or drainage. NEUROLOGIC: Cranial nerves II through XII intact. No focal deficits. MUSKULOSKELETAL: Able to move all extremities, strength equal bilaterally. PSYCHIATRIC: Alert and oriented to person place and time, appropriate affect, intact judgment and insight. INVASIVE LINES AND TUBES: Ventricular epicardial pacemaker wires present, and grounded. - Labs CBC & Chem 7: 10/20/23 04:35 10/20/23 05:53 Labs: Abnormal Lab Results - Last 24 Hours (Table) 10/19/23 10/19/23 10/19/23 Range/Units 10:18 11:08 12:10 RBC (4.30-5.90) m/uL Hgb (13.0-17.5) gm/dL Hct (39.0-53.0) % Plt Count (150-450) k/uL Lymphocytes # (1.0-4.8) k/uL Sodium (137-145) mmol/L Chloride (98-107) mmol/L BUN (9-20) mg/dL Creatinine (0.66-1.25) mg/dL Glucose (74-99) mg/dL POC Glucose (mg/dL) 156 H 150 H 170 H (70-110) mg/dL Alkaline Phosphatase (38-126) U/L 10/19/23 10/19/23 10/19/23 Range/Units 13:17 14:13 15:03 RBC (4.30-5.90) m/uL Hgb (13.0-17.5) gm/dL Hct (39.0-53.0) % Plt Count (150-450) k/uL Lymphocytes # (1.0-4.8) k/uL Sodium (137-145) mmol/L Chloride (98-107) mmol/L BUN (9-20) mg/dL Creatinine (0.66-1.25) mg/dL Glucose (74-99) mg/dL POC Glucose (mg/dL) 164 H 136 H 122 H (70-110) mg/dL Alkaline Phosphatase (38-126) U/L 10/19/23 10/19/23 10/19/23 Range/Units 17:08 17:30 18:09 RBC (4.30-5.90) m/uL Hgb (13.0-17.5) gm/dL Hct (39.0-53.0) % Plt Count (150-450) k/uL Lymphocytes # (1.0-4.8) k/uL Sodium (137-145) mmol/L Chloride (98-107) mmol/L BUN (9-20) mg/dL Creatinine (0.66-1.25) mg/dL Glucose (74-99) mg/dL POC Glucose (mg/dL) 54 L 117 H 175 H (70-110) mg/dL Alkaline Phosphatase (38-126) U/L 10/19/23 10/19/23 10/19/23 Range/Units 18:57 19:58 21:10 RBC (4.30-5.90) m/uL Hgb (13.0-17.5) gm/dL Hct (39.0-53.0) % Plt Count (150-450) k/uL Lymphocytes # (1.0-4.8) k/uL Sodium (137-145) mmol/L Chloride (98-107) mmol/L BUN (9-20) mg/dL Creatinine (0.66-1.25) mg/dL Glucose (74-99) mg/dL POC Glucose (mg/dL) 197 H 181 H 135 H (70-110) mg/dL Alkaline Phosphatase (38-126) U/L 10/19/23 10/20/23 10/20/23 Range/Units 23:12 00:07 04:21 RBC (4.30-5.90) m/uL Hgb (13.0-17.5) gm/dL Hct (39.0-53.0) % Plt Count (150-450) k/uL Lymphocytes # (1.0-4.8) k/uL Sodium (137-145) mmol/L Chloride (98-107) mmol/L BUN (9-20) mg/dL Creatinine (0.66-1.25) mg/dL Glucose (74-99) mg/dL POC Glucose (mg/dL) 129 H 118 H 162 H (70-110) mg/dL Alkaline Phosphatase (38-126) U/L 10/20/23 10/20/23 10/20/23 Range/Units 04:35 05:11 05:53 RBC 2.67 L (4.30-5.90) m/uL Hgb 8.6 L (13.0-17.5) gm/dL Hct 26.1 L (39.0-53.0) % Plt Count 98 L (150-450) k/uL Lymphocytes # 0.5 L (1.0-4.8) k/uL Sodium 133 L (137-145) mmol/L Chloride 94 L (98-107) mmol/L BUN 59 H (9-20) mg/dL Creatinine 5.51 H (0.66-1.25) mg/dL Glucose 132 H (74-99) mg/dL POC Glucose (mg/dL) 134 H (70-110) mg/dL Alkaline Phosphatase 142 H (38-126) U/L 10/20/23 10/20/23 10/20/23 Range/Units 06:41 08:21 09:02 RBC (4.30-5.90) m/uL Hgb (13.0-17.5) gm/dL Hct (39.0-53.0) % Plt Count (150-450) k/uL Lymphocytes # (1.0-4.8) k/uL Sodium (137-145) mmol/L Chloride (98-107) mmol/L BUN (9-20) mg/dL Creatinine (0.66-1.25) mg/dL Glucose (74-99) mg/dL POC Glucose (mg/dL) 134 H 178 H 188 H (70-110) mg/dL Alkaline Phosphatase (38-126) U/L Assessment and Plan Plan: Assessment Multivessel coronary artery disease with involvement of left main and chronic total occlusion of the circumflex artery. The patient underwent two-vessel bypass surgery with TIAN to LAD and SVG to ramus and the patient is currently postop day #3. Hemodynamically stable, Postthoracotomy, extubated on 10/18/2023 current densities of actual nasal cannula. All of the chest was admitted moved. Chest x-ray showing postsurgical changes.. No evidence of any pneumothorax. Currently on 2 L of O2 nasal cannula. Chronic diastolic heart failure with preserved LV function Recent history of myocardial infarction secondary to coronary artery disease End-stage renal disease on hemodialysis 3 times a week, TTS and the patient has an AV fistula in his right upper extremity, patient undergoing hemodialysis this morning. Hypertension Hyperlipidemia Insulin-dependent diabetes mellitus and the patient is currently on sliding scale insulin coverage. He has a backup insulin drip if needed. COPD Obstructive sleep apnea, not significantly compliant to CPAP therapy History of smoking quit back in 1981 Peripheral neuropathy related to diabetes mellitus Orthostatic hypotension History of mild intermittent bronchial asthma currently inactive and stable History of staphylococcal septicemia related to permacath infection back in 2022 Plan Patient is currently on O2 at 2 L/min nasal cannula Continues incentive spirometer Hemodialysis is being conducted this morning with a total of 2 L of ultrafiltration Chest tubes have been removed Clinically and hemodynamically stable. Adequate cardiac output and index and the patient is currently on no pressors Backup VVI pacing at rate of 40, current rhythm is sinus Postop hemoglobin is stable Continue aspirin and Plavix Continue metoprolol [employer] Adjuster on the case Will continue to follow,
[2023-10-20 17:25] LABS: Glucose,Whole Blood 211 mg/dL (70-110)
[2023-10-20 18:04] LABS: Glucose,Whole Blood 235 mg/dL (70-110)
--- NOTE | 2023-10-20 18:20 | P.PN ---
Subjective Progress Note Date: 10/20/23 (Delayed charting seen at 0930) Patient is a 72-year-old male with coronary artery disease, end-stage renal disease on hemodialysis Tuesday//Tuesday, diabetes mellitus type 2 with insulin pump, COPD, heart failure with ejection fraction 50 to 55%, and multiple other comorbid conditions who presented for two-vessel coronary artery bypass grafting. He tolerated the procedure well. He required prolonged intubation. Patient seen and examined at bedside. He is currently undergoing dialysis. He is still having some chest pain but it is better controlled. He does not feel up to using his insulin pump yet and his appetite is still low. He had a bowel movement with help of an enema today. Vital signs reviewed General: Ill-appearing, mild distress due to pain, appears at stated age Cardiovascular: S1S2 reg, no murmur Lungs: Decreased breath sounds bilateral, no rhonchi, no rales, no accessory muscle use Abdominal: Soft, nontender to palpation, no guarding Ext: No gross muscle atrophy, 2+ edema b/l lower extremities, no contractures Neuro: CN II-XI grossly intact, no focal neuro deficits Psych: Alert, oriented, appropriate affect Assessment/Plan: Patient is a 72-year-old male status post two-vessel coronary artery bypass grafting Compensated diastolic congestive heart failure with ejection fraction 50 to 55% Hypertension Dyslipidemia -Cardiology note reviewed: No new recommendations -Critical care note reviewed: Continue current care -CT surgery note reviewed: Remove epicardial pacemaker wires today -Aspirin 325 mg daily -Plavix 75 mg daily -Zetia 10 mg daily -Metoprolol 25 mg PO BID Acute blood loss anemia, anticipated outcome of surgery Thrombocytopenia, anticipated outcome of surgery -Patient's preoperative hemoglobin was 12.2. -No indication for transfusion at this time -Follow CBC Diabetes mellitus type 2, insulin-dependent -Currently on insulin drip with blood sugars fairly well-controlled. Would continue to use insulin drip until patient eating well. Patient has been both on and off the drip since coming back from surgery. If eating well tomorrow would restart insulin pump - very brittle diabetic, follow BS closely. End-stage renal disease on hemodialysis Tuesday//Tuesday - HD today -Nephrology note reviewed: Hemodialysis today, continue iron S COPD without exacerbation Obstructive sleep apnea -Continue with scheduled DuoNeb Imaging: Chest x-ray shows no acute cardiopulmonary process. Data Review: Labs reviewed from today include CBC and CMP which are remarkable for hemoglobin 8.6, platelets 98, sodium 133, BUN 59, creatinine 5.51 chest x-ray shows no acute cardiopulmonary process DVT prophylaxis: Heparin SC Thank you for allowing us to participate in the care of this pleasant patient. Do not hesitate to contact us with questions. Someone can be reached from the [facility] hospitalist group all hours of the day at [phone] or via [facility]. This dictation was prepared using uMentioned voice recognition software. Though every attempt is made to correct errors during dictation some may still exist. Objective - Vital Signs Vital signs: Vital Signs Temp 98.4 F 10/20/23 16:00 Pulse 75 10/20/23 17:19 Resp 14 10/20/23 16:00 BP 106/49 10/20/23 16:00 Pulse Ox 99 10/20/23 16:00 FiO2 35 10/18/23 10:41 Intake & Output 10/19/23 10/20/23 10/20/23 18:59 06:59 18:59 Intake Total 683.923 792.448 5881.124 Output Total 115 0 2700 Balance 568.923 293.279 -1638.876 Weight 101.6 kg Intake: IV 408 260 20 .9NS Pressure Bag 48 Lactated Ringers 1,000 ml 360 260 20 @ 20 mls/hr IV .Q24H JOEY Rx#:[id number] Intake, IV Titration 25.923 33.279 41.124 Amount Insulin Regular 100 unit 25.923 33.279 41.124 In Sodium Chloride 0.9% 100 ml @ Per Protocol IV .Q0M JOEY Rx#:[id number] Oral 250 600 Hemodialysis 400 Output: Chest Tube Drainage 40 Left adn Right Chest Tube 40 Mediastinal Chest Tube 0 Urine 75 0 300 Hemodialysis 2400 Other: Voiding Method Urinal Urinal Urinal # Bowel Movements 1 1 ABP, PAP, CO, CI - Last Documented Arterial Blood Pressure 98/28 Pulmonary Artery Pressure 36/5 Cardiac Output 6.3 Cardiac Index 3 - Labs CBC & Chem 7: 10/20/23 04:35 10/20/23 05:53 Labs: Abnormal Lab Results - Last 24 Hours (Table) 10/19/23 10/19/23 10/19/23 Range/Units 18:57 19:58 21:10 RBC (4.30-5.90) m/uL Hgb (13.0-17.5) gm/dL Hct (39.0-53.0) % Plt Count (150-450) k/uL Lymphocytes # (1.0-4.8) k/uL Sodium (137-145) mmol/L Chloride (98-107) mmol/L BUN (9-20) mg/dL Creatinine (0.66-1.25) mg/dL Glucose (74-99) mg/dL POC Glucose (mg/dL) 197 H 181 H 135 H (70-110) mg/dL Alkaline Phosphatase (38-126) U/L 10/19/23 10/20/23 10/20/23 Range/Units 23:12 00:07 04:21 RBC (4.30-5.90) m/uL Hgb (13.0-17.5) gm/dL Hct (39.0-53.0) % Plt Count (150-450) k/uL Lymphocytes # (1.0-4.8) k/uL Sodium (137-145) mmol/L Chloride (98-107) mmol/L BUN (9-20) mg/dL Creatinine (0.66-1.25) mg/dL Glucose (74-99) mg/dL POC Glucose (mg/dL) 129 H 118 H 162 H (70-110) mg/dL Alkaline Phosphatase (38-126) U/L 10/20/23 10/20/23 10/20/23 Range/Units 04:35 05:11 05:53 RBC 2.67 L (4.30-5.90) m/uL Hgb 8.6 L (13.0-17.5) gm/dL Hct 26.1 L (39.0-53.0) % Plt Count 98 L (150-450) k/uL Lymphocytes # 0.5 L (1.0-4.8) k/uL Sodium 133 L (137-145) mmol/L Chloride 94 L (98-107) mmol/L BUN 59 H (9-20) mg/dL Creatinine 5.51 H (0.66-1.25) mg/dL Glucose 132 H (74-99) mg/dL POC Glucose (mg/dL) 134 H (70-110) mg/dL Alkaline Phosphatase 142 H (38-126) U/L 10/20/23 10/20/23 10/20/23 Range/Units 06:41 08:21 09:02 RBC (4.30-5.90) m/uL Hgb (13.0-17.5) gm/dL Hct (39.0-53.0) % Plt Count (150-450) k/uL Lymphocytes # (1.0-4.8) k/uL Sodium (137-145) mmol/L Chloride (98-107) mmol/L BUN (9-20) mg/dL Creatinine (0.66-1.25) mg/dL Glucose (74-99) mg/dL POC Glucose (mg/dL) 134 H 178 H 188 H (70-110) mg/dL Alkaline Phosphatase (38-126) U/L 10/20/23 10/20/23 10/20/23 Range/Units 10:02 12:16 16:03 RBC (4.30-5.90) m/uL Hgb (13.0-17.5) gm/dL Hct (39.0-53.0) % Plt Count (150-450) k/uL Lymphocytes # (1.0-4.8) k/uL Sodium (137-145) mmol/L Chloride (98-107) mmol/L BUN (9-20) mg/dL Creatinine (0.66-1.25) mg/dL Glucose (74-99) mg/dL POC Glucose (mg/dL) 146 H 111 H 215 H (70-110) mg/dL Alkaline Phosphatase (38-126) U/L 10/20/23 10/20/23 Range/Units 17:24 18:02 RBC (4.30-5.90) m/uL Hgb (13.0-17.5) gm/dL Hct (39.0-53.0) % Plt Count (150-450) k/uL Lymphocytes # (1.0-4.8) k/uL Sodium (137-145) mmol/L Chloride (98-107) mmol/L BUN (9-20) mg/dL Creatinine (0.66-1.25) mg/dL Glucose (74-99) mg/dL POC Glucose (mg/dL) 211 H 235 H (70-110) mg/dL Alkaline Phosphatase (38-126) U/L
[2023-10-20 18:58] LABS: Glucose,Whole Blood 267 mg/dL (70-110)
[2023-10-20 20:14] LABS: Glucose,Whole Blood 175 mg/dL (70-110)
[2023-10-20] MEDS: METOPROLOL TARTRATE 25 MG TAB PO SCH (20:20)
[2023-10-20 21:04] LABS: Glucose,Whole Blood 122 mg/dL (70-110)
[2023-10-20 22:03] LABS: Glucose,Whole Blood 94 mg/dL (70-110)
[2023-10-20 23:07] LABS: Glucose,Whole Blood 89 mg/dL (70-110)
[2023-10-21] LABS: Glucose,Whole Blood 102 mg/dL (70-110)
[2023-10-21 01:12] LABS: Glucose,Whole Blood 127 mg/dL (70-110)
[2023-10-21 01:57] LABS: Glucose,Whole Blood 122 mg/dL (70-110)
[2023-10-21 02:57] LABS: Glucose,Whole Blood 144 mg/dL (70-110)
[2023-10-21 04:03] LABS: Glucose,Whole Blood 143 mg/dL (70-110)
[2023-10-21 05:15] LABS: Glucose,Whole Blood 141 mg/dL (70-110)
[2023-10-21 05:18] LABS: ALT 9 U/L (4-49); AST 47 U/L (17-59); African American GFR (CKD) 14 (>60 ml/min/1.73 sqM); Albumin 3.2 g/dL (3.5-5.0); Alkaline Phosphatase 135 U/L (38-126); Anion Gap 13 mmol/L; Blood Urea Nitrogen 53 mg/dL (9-20); Calcium 8.3 mg/dL (8.4-10.2); Carbon Dioxide 25 mmol/L (22-30); Chloride 94 mmol/L (98-107); Glucose 128 mg/dL (74-99); Non-African American GFR(CKD) 12 (>60 ml/min/1.73 sqM); Potassium 4.2 mmol/L (3.5-5.1); Sodium 132 mmol/L (137-145); Total Bilirubin 0.8 mg/dL (0.2-1.3)
[2023-10-21 05:42] LABS: HCT 24.6 % (39.0-53.0); HGB 8.4 gm/dL (13.0-17.5); MCH 33.1 pg (25.0-35.0); MCHC 33.9 g/dL (31.0-37.0); MCV 97.5 fL (80.0-100.0); Mean Platelet Volume 9.9; Platelet Count 121 k/uL (150-450); RBC 2.53 m/uL (4.30-5.90); RDW 13.8 % (11.5-15.5); WBC 6.1 k/uL (3.8-10.6)
[2023-10-21 06:15] LABS: Glucose,Whole Blood 130 mg/dL (70-110)
[2023-10-21 06:31] LABS: Band Neutrophils % 5 %; Eosinophils # (M) 0.24 k/uL (0-0.7); Lymphocytes # (M) 0.37 k/uL (1.0-4.8); Monocytes # (M) 0.43 k/uL (0-1.0); Neutrophils % (M) 78 %; Nucleated Red Blood Cells 0 /100 WBC (0-0); Total Cells Counted 100
[2023-10-21 06:32] LABS: RBC Morphology Normal
[2023-10-21 07:03] LABS: Glucose,Whole Blood 111 mg/dL (70-110)
--- NOTE | 2023-10-21 08:08 | P.PN ---
Subjective Progress Note Date: 10/21/23 Principal diagnosis: Coronary artery disease. Past medical history significant for stable angina, coronary artery disease with previous PCI, hypertension, hyperlipidemia, insulin-dependent diabetes mellitus, chronic diastolic heart failure, mild cardiomyopathy with ejection fraction of 50%, end-stage renal disease on hemodialysis Tuesdays, and Saturdays, history of myocardial infarction in 2006, chronic obstructive pulmonary disease, obstructive sleep apnea with no ncompliance of use of his CPAP, peripheral neuropathy, remote history of smoking quit in 1981, osteoarthritis and occasional constipation. POD #4 Off pump coronary artery bypass grafting x 2. Left internal thoracic artery (in-situ) to left anterior descending coronary artery. Saphenous vein from aorta to ramus intermedius, Coronary patch angioplasty to ramus intermedius, Left atrial appendage ligation using #35mm AtriClip, Endoscopic left greater saphenous vein harvest, intraoperative transesophageal echocardiogram performed by anesthesia. Postoperative acute blood loss anemia, expected given hemodilution. The patient was seen and examined in follow-up today October 21, 2023 at his bedside in the intensive care unit. He is currently sitting up to the bedside chair, he is awake, alert, oriented x 3 and is in no acute apparent distress. He denies any complaints of pain or shortness of breath at this time, and reports his delirium and hallucinations have cleared. Oxygen saturations are 97% on 2 L nasal cannula and he is achieving 2000 mL on his incentive spirometry with encouragement. Oxygen saturations on room air were 85%. Bedside telemetry is showing normal sinus rhythm heart rate 65 bpm. Hemodialysis was completed yesterday with 2.4 L ultrafiltration completed. He remains hemodynamically stable and is currently on no inotropic or pressor support. Ventricular epicardial pacemaker wires were removed without incident yesterday. Discharge planning is in place. Chest x-ray and laboratory results reviewed. He has been up ambulating in the intensive care unit hallway with standby assistance from nursing and therapy staff. Objective - Vital Signs Vital signs: Vital Signs Temp 98 F 10/21/23 00:00 Pulse 62 10/21/23 07:00 Resp 10 L 10/21/23 07:00 BP 112/49 10/21/23 07:00 Pulse Ox 95 10/21/23 07:00 FiO2 35 10/18/23 10:41 Intake & Output 10/20/23 10/21/23 10/21/23 18:59 06:59 18:59 Intake Total 1361.124 283.940 4.865 Output Total 2700 0 0 Balance -1338.876 283.940 4.865 Weight 107.3 kg Intake: IV 20 Lactated Ringers 1,000 ml 20 @ 20 mls/hr IV .Q24H JOEY Rx#:[id number] Intake, IV Titration 41.124 83.940 4.865 Amount Insulin Regular 100 unit 41.124 83.940 4.865 In Sodium Chloride 0.9% 100 ml @ Per Protocol IV .Q0M JOEY Rx#:[id number] Oral 900 200 Hemodialysis 400 Output: Urine 300 0 0 Hemodialysis 2400 Other: Voiding Method Urinal Urinal # Bowel Movements 1 ABP, PAP, CO, CI - Last Documented Arterial Blood Pressure 98/28 Pulmonary Artery Pressure 36/5 Cardiac Output 6.3 Cardiac Index 3 - Exam CONSTITUTIONAL: Sitting up to the bedside chair in the intensive care unit, a ppears comfortable, cooperative, no apparent acute distress. HEENT: Neck is supple, no JVD, no lymphadenopathy. RESPIRATORY: Lungs sounds essentially clear throughout, diminished to his bilateral bases. Respirations are symmetrical and nonlabored. Currently on 2 L nasal cannula with oxygen saturations 97%. Able to achieve 2000 mL on his incentive spirometry. Strong cough. CARDIOVASCULAR: Regular rhythm and rate. S1 and S2 present, negative for S3, gallop or murmur. Sternum is stable. Palpable peripheral pulses bilaterally. No calf pain or tenderness noted. Heart hugger in place with patient demonstrating appropriate use. Knee-high ENMA hose and sequential compression devices in place to his bilateral lower extremities. GASTROINTESTINAL: Abdomen soft, nontender, nondistended. Active bowel sounds present 4 quadrants. Tolerating diet. Passing flatus. No guarding or rigid ity. Bowel movement on 10/20/2023. GENITOURINARY: Left arm AV fistula with positive thrill and bruit. Hemodialysis completed yesterday with 2.4 L ultrafiltration completed. INTEGUMENTARY: Skin is warm and dry with no evidence of clubbing or cyanosis. Midline sternal incision clean dry and well approximated, covered with dry intact dressing. Left lower extremity EVH sites well approximated without redness or drainage. NEUROLOGIC: Cranial nerves II through XII intact. No focal deficits. MUSKULOSKELETAL: Able to move all extremities, strength equal bilaterally. PSYCHIATRIC: Alert and oriented to person place and time, appropriate affect, intact judgment and insight. - Allied health notes Allied health notes reviewed: nursing - Labs CBC & Chem 7: 10/21/23 04:28 10/21/23 04:28 Labs: Abnormal Lab Results - Last 24 Hours (Table) 10/20/23 10/20/23 10/20/23 Range/Units 08:21 09:02 10:02 RBC (4.30-5.90) m/uL Hgb (13.0-17.5) gm/dL Hct (39.0-53.0) % Plt Count (150-450) k/uL Lymphocytes # (Manual) (1.0-4.8) k/uL Sodium (137-145) mmol/L Chloride (98-107) mmol/L BUN (9-20) mg/dL Creatinine (0.66-1.25) mg/dL Glucose (74-99) mg/dL POC Glucose (mg/dL) 178 H 188 H 146 H (70-110) mg/dL Calcium (8.4-10.2) mg/dL Alkaline Phosphatase (38-126) U/L Total Protein (6.3-8.2) g/dL Albumin (3.5-5.0) g/dL 10/20/23 10/20/23 10/20/23 Range/Units 12:16 16:03 17:24 RBC (4.30-5.90) m/uL Hgb (13.0-17.5) gm/dL Hct (39.0-53.0) % Plt Count (150-450) k/uL Lymphocytes # (Manual) (1.0-4.8) k/uL Sodium (137-145) mmol/L Chloride (98-107) mmol/L BUN (9-20) mg/dL Creatinine (0.66-1.25) mg/dL Glucose (74-99) mg/dL POC Glucose (mg/dL) 111 H 215 H 211 H (70-110) mg/dL Calcium (8.4-10.2) mg/dL Alkaline Phosphatase (38-126) U/L Total Protein (6.3-8.2) g/dL Albumin (3.5-5.0) g/dL 10/20/23 10/20/23 10/20/23 Range/Units 18:02 18:55 20:13 RBC (4.30-5.90) m/uL Hgb (13.0-17.5) gm/dL Hct (39.0-53.0) % Plt Count (150-450) k/uL Lymphocytes # (Manual) (1.0-4.8) k/uL Sodium (137-145) mmol/L Chloride (98-107) mmol/L BUN (9-20) mg/dL Creatinine (0.66-1.25) mg/dL Glucose (74-99) mg/dL POC Glucose (mg/dL) 235 H 267 H 175 H (70-110) mg/dL Calcium (8.4-10.2) mg/dL Alkaline Phosphatase (38-126) U/L Total Protein (6.3-8.2) g/dL Albumin (3.5-5.0) g/dL 10/20/23 10/21/23 10/21/23 Range/Units 21:03 01:10 01:56 RBC (4.30-5.90) m/uL Hgb (13.0-17.5) gm/dL Hct (39.0-53.0) % Plt Count (150-450) k/uL Lymphocytes # (Manual) (1.0-4.8) k/uL Sodium (137-145) mmol/L Chloride (98-107) mmol/L BUN (9-20) mg/dL Creatinine (0.66-1.25) mg/dL Glucose (74-99) mg/dL POC Glucose (mg/dL) 122 H 127 H 122 H (70-110) mg/dL Calcium (8.4-10.2) mg/dL Alkaline Phosphatase (38-126) U/L Total Protein (6.3-8.2) g/dL Albumin (3.5-5.0) g/dL 10/21/23 10/21/23 10/21/23 Range/Units 02:56 04:01 04:28 RBC 2.53 L (4.30-5.90) m/uL Hgb 8.4 L (13.0-17.5) gm/dL Hct 24.6 L (39.0-53.0) % Plt Count 121 L (150-450) k/uL Lymphocytes # (Manual) 0.37 L (1.0-4.8) k/uL Sodium (137-145) mmol/L Chloride (98-107) mmol/L BUN (9-20) mg/dL Creatinine (0.66-1.25) mg/dL Glucose (74-99) mg/dL POC Glucose (mg/dL) 144 H 143 H (70-110) mg/dL Calcium (8.4-10.2) mg/dL Alkaline Phosphatase (38-126) U/L Total Protein (6.3-8.2) g/dL Albumin (3.5-5.0) g/dL 10/21/23 10/21/23 10/21/23 Range/Units 04:28 05:14 06:13 RBC (4.30-5.90) m/uL Hgb (13.0-17.5) gm/dL Hct (39.0-53.0) % Plt Count (150-450) k/uL Lymphocytes # (Manual) (1.0-4.8) k/uL Sodium 132 L (137-145) mmol/L Chloride 94 L (98-107) mmol/L BUN 53 H (9-20) mg/dL Creatinine 4.60 H (0.66-1.25) mg/dL Glucose 128 H (74-99) mg/dL POC Glucose (mg/dL) 141 H 130 H (70-110) mg/dL Calcium 8.3 L (8.4-10.2) mg/dL Alkaline Phosphatase 135 H (38-126) U/L Total Protein 6.0 L (6.3-8.2) g/dL Albumin 3.2 L (3.5-5.0) g/dL 10/21/23 Range/Units 07:01 RBC (4.30-5.90) m/uL Hgb (13.0-17.5) gm/dL Hct (39.0-53.0) % Plt Count (150-450) k/uL Lymphocytes # (Manual) (1.0-4.8) k/uL Sodium (137-145) mmol/L Chloride (98-107) mmol/L BUN (9-20) mg/dL Creatinine (0.66-1.25) mg/dL Glucose (74-99) mg/dL POC Glucose (mg/dL) 111 H (70-110) mg/dL Calcium (8.4-10.2) mg/dL Alkaline Phosphatase (38-126) U/L Total Protein (6.3-8.2) g/dL Albumin (3.5-5.0) g/dL - Imaging and Cardiology Chest x-ray: report reviewed, image reviewed Assessment and Plan Assessment: Coronary artery disease with left main disease, 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, status post two-vessel coronary artery bypass grafting Chronic diastolic heart failure Mild cardiomyopathy with an ejection fraction of 50% History of myocardial infarction Chronic kidney disease, on hemodialysis Tuesdays and Saturdays Hypertension Hyperlipidemia, treated cholesterol 100 mg/dL, LDL 32.2 mg/dL Insulin-dependent diabetes mellitus, with a preoperative hemoglobin A1c of 7.8% Chronic fatigue COPD with a preoperative FEV1 78% of predicted value with a base volume of 2.01 Obstructive sleep apnea, noncompliant with CPAP use History of constipation Remote history of nicotine dependence, quit smoking 1982 Neuropathy Orthostatic hypotension Plan: Continue aspirin, home dose of statin, Zetia, Plavix and beta-narcisa with hold parameters. Increase metoprolol tartrate as tolerated. Wean oxygen as tolerated. Bronchodilator management per Dr. Potter's recommendations. Increase activity as tolerated. PT/OT/cardiac rehab following. Will monitor daily labs and chest x-rays. Electrolyte replacement per protocol. Dialysis management per nephrology recommendations. His current hemodialysis schedule is Tuesdays, and Saturdays. Pain control per current as needed regimen. Avoid nephrotoxic agents. Continue to record strict accurate intake and output. Bladder scan every 6 hours and as needed postvoid residual, if greater than 300 mL of urine straight cath. Insulin management per internal medicine, patient should remain on continuous IV insulin for minimum of 48 hours, then may transition to subcutaneous per protocol GI/DVT prophylaxis. Daily weights. Shower daily. Transfer to third floor cardiac stepdown unit when bed available. Discharge planning is in place, anticipate discharge home within the next 24 hours. More recommendations to follow based on patient's clinical course. Time with Patient: Greater than 30
[2023-10-21 08:18] LABS: Glucose,Whole Blood 102 mg/dL (70-110)
--- NOTE | 2023-10-21 08:32 | XR ---
EXAMINATION TYPE: XR chest 2V DATE OF EXAM: 10/21/2023 5:56 AM CLINICAL INDICATION:Male, 72 years old with history of Postop CABG; COMPARISON: Chest radiographs from 10/19/2025. TECHNIQUE: XR chest 2V Frontal and lateral views of the chest. FINDINGS: Lungs/Pleura: There is no evidence of pleural effusion, focal consolidation, or pneumothorax. Pulmonary vascularity: Unremarkable. Heart/mediastinum: Cardiomediastinal silhouette is unremarkable. Left atrial appendage occlusion catia ce is present. Musculoskeletal: No acute osseous pathology. Other findings: None IMPRESSION: Postsurgical changes, mild pulmonary gastric congestion.
--- NOTE | 2023-10-21 09:53 | P.PN ---
Subjective Patient is seen for follow-up for end-stage renal disease. Status post coronary artery bypass surgery on 10/17/2023 Doing well. Chest tubes are out Tolerated oral intake this morning. Scheduled for hemodialysis in a.m. Objective - Vital Signs Vital signs: Vital Signs Temp 98 F 10/21/23 00:00 Pulse 62 10/21/23 07:00 Resp 10 L 10/21/23 07:00 BP 112/49 10/21/23 07:00 Pulse Ox 94 L 10/21/23 08:22 FiO2 35 10/18/23 10:41 Intake & Output 10/20/23 10/21/23 10/21/23 18:59 06:59 18:59 Intake Total 1361.124 283.940 254.865 Output Total 2700 0 0 Balance -1338.876 283.940 254.865 Weight 107.3 kg Intake: IV 20 Lactated Ringers 1,000 ml 20 @ 20 mls/hr IV .Q24H JOEY Rx#:[id number] Intake, IV Titration 41.124 83.940 4.865 Amount Insulin Regular 100 unit 41.124 83.940 4.865 In Sodium Chloride 0.9% 100 ml @ Per Protocol IV .Q0M JOEY Rx#:[id number] Oral 900 200 Tube Feeding 250 Hemodialysis 400 Output: Urine 300 0 0 Hemodialysis 2400 Other: Voiding Method Urinal Urinal # Bowel Movements 1 ABP, PAP, CO, CI - Last Documented Arterial Blood Pressure 98/28 Pulmonary Artery Pressure 36/5 Cardiac Output 6.3 Cardiac Index 3 - Exam Patient is awake, comfortable, alert oriented 3 No acute distress Examination of the heart S1 and S2 Examination the lungs decreased breath sounds Abdomen is soft nontender Examination of lower extremity shows no significant edema [employer] exam grossly intact - Labs CBC & Chem 7: 10/21/23 04:28 10/21/23 04:28 Labs: Abnormal Lab Results - Last 24 Hours (Table) 10/20/23 10/20/23 10/20/23 Range/Units 10:02 12:16 16:03 RBC (4.30-5.90) m/uL Hgb (13.0-17.5) gm/dL Hct (39.0-53.0) % Plt Count (150-450) k/uL Lymphocytes # (Manual) (1.0-4.8) k/uL Sodium (137-145) mmol/L Chloride (98-107) mmol/L BUN (9-20) mg/dL Creatinine (0.66-1.25) mg/dL Glucose (74-99) mg/dL POC Glucose (mg/dL) 146 H 111 H 215 H (70-110) mg/dL Calcium (8.4-10.2) mg/dL Alkaline Phosphatase (38-126) U/L Total Protein (6.3-8.2) g/dL Albumin (3.5-5.0) g/dL 10/20/23 10/20/23 10/20/23 Range/Units 17:24 18:02 18:55 RBC (4.30-5.90) m/uL Hgb (13.0-17.5) gm/dL Hct (39.0-53.0) % Plt Count (150-450) k/uL Lymphocytes # (Manual) (1.0-4.8) k/uL Sodium (137-145) mmol/L Chloride (98-107) mmol/L BUN (9-20) mg/dL Creatinine (0.66-1.25) mg/dL Glucose (74-99) mg/dL POC Glucose (mg/dL) 211 H 235 H 267 H (70-110) mg/dL Calcium (8.4-10.2) mg/dL Alkaline Phosphatase (38-126) U/L Total Protein (6.3-8.2) g/dL Albumin (3.5-5.0) g/dL 10/20/23 10/20/23 10/21/23 Range/Units 20:13 21:03 01:10 RBC (4.30-5.90) m/uL Hgb (13.0-17.5) gm/dL Hct (39.0-53.0) % Plt Count (150-450) k/uL Lymphocytes # (Manual) (1.0-4.8) k/uL Sodium (137-145) mmol/L Chloride (98-107) mmol/L BUN (9-20) mg/dL Creatinine (0.66-1.25) mg/dL Glucose (74-99) mg/dL POC Glucose (mg/dL) 175 H 122 H 127 H (70-110) mg/dL Calcium (8.4-10.2) mg/dL Alkaline Phosphatase (38-126) U/L Total Protein (6.3-8.2) g/dL Albumin (3.5-5.0) g/dL 10/21/23 10/21/23 10/21/23 Range/Units 01:56 02:56 04:01 RBC (4.30-5.90) m/uL Hgb (13.0-17.5) gm/dL Hct (39.0-53.0) % Plt Count (150-450) k/uL Lymphocytes # (Manual) (1.0-4.8) k/uL Sodium (137-145) mmol/L Chloride (98-107) mmol/L BUN (9-20) mg/dL Creatinine (0.66-1.25) mg/dL Glucose (74-99) mg/dL POC Glucose (mg/dL) 122 H 144 H 143 H (70-110) mg/dL Calcium (8.4-10.2) mg/dL Alkaline Phosphatase (38-126) U/L Total Protein (6.3-8.2) g/dL Albumin (3.5-5.0) g/dL 10/21/23 10/21/23 10/21/23 Range/Units 04:28 04:28 05:14 RBC 2.53 L (4.30-5.90) m/uL Hgb 8.4 L (13.0-17.5) gm/dL Hct 24.6 L (39.0-53.0) % Plt Count 121 L (150-450) k/uL Lymphocytes # (Manual) 0.37 L (1.0-4.8) k/uL Sodium 132 L (137-145) mmol/L Chloride 94 L (98-107) mmol/L BUN 53 H (9-20) mg/dL Creatinine 4.60 H (0.66-1.25) mg/dL Glucose 128 H (74-99) mg/dL POC Glucose (mg/dL) 141 H (70-110) mg/dL Calcium 8.3 L (8.4-10.2) mg/dL Alkaline Phosphatase 135 H (38-126) U/L Total Protein 6.0 L (6.3-8.2) g/dL Albumin 3.2 L (3.5-5.0) g/dL 10/21/23 10/21/23 Range/Units 06:13 07:01 RBC (4.30-5.90) m/uL Hgb (13.0-17.5) gm/dL Hct (39.0-53.0) % Plt Count (150-450) k/uL Lymphocytes # (Manual) (1.0-4.8) k/uL Sodium (137-145) mmol/L Chloride (98-107) mmol/L BUN (9-20) mg/dL Creatinine (0.66-1.25) mg/dL Glucose (74-99) mg/dL POC Glucose (mg/dL) 130 H 111 H (70-110) mg/dL Calcium (8.4-10.2) mg/dL Alkaline Phosphatase (38-126) U/L Total Protein (6.3-8.2) g/dL Albumin (3.5-5.0) g/dL Assessment and Plan Assessment: 1. End-stage renal disease on hemodialysis on a Tuesday schedule 2. Volume overload, improved. 3. Status post coronary artery bypass surgery 2 on 10/17/2023 3. Anemia multifactorial including anemia of chronic disease and postop state. Currently stable. Will maintain patient on Aranesp. Plan: Continue Aranesp Maintain patient on hemodialysis on a Tuesday schedule.
[2023-10-21 11:35] LABS: Glucose,Whole Blood 210 mg/dL (70-110)
[2023-10-21 12:23] LABS: Glucose,Whole Blood 174 mg/dL (70-110)
[2023-10-21 13:48] LABS: Glucose,Whole Blood 176 mg/dL (70-110)
--- NOTE | 2023-10-21 14:33 | P.PN ---
Subjective Progress Note Date: 10/21/23 This is a 72-year-old male patient was being seen in the intensive care unit following his cardiac surgery. The patient i has a known history of coronary artery disease, he has undergone previous PCI, chronic diastolic heart failure with a preserved ejection fraction of 50%, end-stage renal disease on h emodialysis 3 times a week, TTS, insulin-dependent diabetes mellitus, hypertension hyperlipidemia and previous history of obstructive sleep apnea and remote history of smoking and the patient quit smoking back in 1981. I have also seen him in the hospital for previous episodes of staphylococcal sepsis. This was related to a permacath infection. The patient has been having episodes of chest pain started in early September 2023. At that time, his troponins were positive and a catheterization was done on 10/03/2023 that showed 60% stenosis in the mid to distal left main, 50 to 60% stenosis of the mid LAD, 100% stenosis of the circumflex and a 50 to 60% stenosis of the mid RCA. At that point, the patient was advised to undergo cardiac revascularization surgery. The patient underwent a off-pump cardiac bypass x 2 with TIAN to LAD and saphenous vein graft to ramus intermedius. Currently, the patient is in the intensive care unit, intubated on mechanical ventilator. He is a bit restless on propofol which is being weaned off. The patient is intubated, assist-control mode rate of 16, tidal volume of 450, FiO2 has been weaned down to 35% with a PEEP of 5. His chest x-ray in the ICU showed increased pulm vascular marking and congestion. Cardiomegaly. Postthoracotomy changes. The patient has an orotracheal tube was in a good location. The patient also has a [place]-Pb catheter in place. As far as tubes, the patient has a right and a left pleural chest tube and mediastinal chest tube. No evidence of any pneumothorax. The blood gases showed a pH of 7.43 with a pCO2 of 42 and pO2 of 277 and this was on 100% FiO2. His current cardiac output is 5.4 with an index of 2.5. PA pressures of 58/25 mmHg. He is on nitroglycerin drip running at 5 mcg/kg/min. He is also on amiodarone drip running at 1 mg/min. His cardiac rhythm is sinus with occasional pacing. Pulse ox is 98%. Arousable and somewhat rested yeah restless yet he is following simple commands. Urine output is minimal as the patient has end-stage renal disease. On today's evaluation of 10/18/2023, the patient is being seen for a follow-up. The patient remains intubated on the mechanical ventilator. Unable to wean this patient off the mechanical ventilator as the patient has difficulties in performing spontaneous breathing trial and he was becoming restless, agitated, tachypneic and he would develop hemodynamic instability and elevation of the PA pressures. Based on that, the trial was aborted. The plan was discussed with the cardiothoracic surgeon. The plan was to proceed with hemodialysis today and following that, the patient may potentially extubate. As such, hemodialysis was started this morning and the goal is to dialyze the patient and ultrafiltration for a total of 2 L. His current rhythm is sinus with occasional bradycardia, VVI pacing at 40 and he has occasional PVCs. He remains intubated on the mechanical ventilator. He is on assist-control mode rate of 16, tidal volume of 450, FiO2 is down to 35% with a PEEP of 5. Chest x-ray shows mild interstitial markings bilaterally. Tubes are in good location. Orotracheal tube is in good location. There is no evidence of any pneumothorax. He remains on propofol at 30 mcg/kg/min. Insulin drip is on hold and the patient is on nitroglycerin drip at 5 mcg/min. The pulmonary artery pressures are 37/14. Cardiac output is at 4.9 with an index of 2.3. The right and the left pleural chest tube has put out a total of 210 cc since surgery and the mediastinal chest tube is put out 200 cc since surgery. No evidence of any air leak. Hemodynamically stable. No pressors. No fever. On today's evaluation of 10/19/2023, the patient is being seen for a follow-up. The patient was weaned off the mechanical ventilator and the patient was extubated yesterday without any major difficulties. The patient is currently postop day #2. He is sitting up on the chair and is calm and level. He is using the incentive spirometer and is putting approximately 500 cc he is on 2 L of oxygen by nasal cannula with a pulse ox of 99%. The chest x-ray from today shows adequate expansion of both lungs. The patient has a right pleural and left lower chest tube and mediastinal chest tube. The [place]-Pb catheter has been removed on the chest x-ray. No evidence of any pneumothorax. No significant pleural effusion. The output from the chest tubes have been minimal, I noted that the patient's mediastinal chest tube has produced only 500 cc since OR and the pleural chest tubes have produced only 300 cc since OR. Cardiac rhythm is sinus. The patient has a WBC count of 10.2 with a hemoglobin 9.4 and platelet count of 92. BUN is at 31 with a creatinine of 3.86 and his sodium levels at 133 with a potassium level of 4.6. No other significant events overnight. Neurologically intact and communicating and answering questions appropriately. He is on a combination of aspirin and metoprolol 12.5 mg twice daily and Plavix 75 mg p.o. daily. Nitroglycerin drip has been discontinued. The patient is not utilizing insulin drip and he uses an insulin pump on outpatient basis. Currently is only on sliding scale insulin coverage. On today's evaluation of 10/20/2023, the patient is being seen for a follow-up. The patient is doing well. No specific complaints. The patient is undergoing hemodialysis today and the goal of ultrafiltration is around 2 L. The patient remains on oxygen 2 L/min nasal cannula. Follow-up chest rhythm removed and the patient's cardiac rhythm is sinus. The patient remains on insulin drip at 3 units an hour for blood sugar control. Using incentive spirometer. Communicating. Moving all 4 extremities. Chest x-ray was noted and there is essentially some postsurgical atelectatic change in lung base bilaterally. Otherwise no other acute abnormalities have been noted. No evidence of any p neumothorax. The patient is currently postop day #3. Blood work from today shows a WBC count of 8.1, hemoglobin 8.6 and a platelet count of 98. BUN is 59 with a creatinine of 5.5 and a sodium levels at 133. On today's evaluation of 09/2023 the patient is being seen for a follow-up. The patient is awake and alert and sitting up in a chair. Patient has no specific complaints. No focal neurological deficits. The patient is currently on room air oxygen. Cardiac rhythm is sinus. The chest tubes have been removed. Chest x-ray shows some atelectatic change in lung base bilaterally. No respiratory distress. Hemodialysis was done yesterday and a total of 2 L of fluid was removed. The patient remains on aspirin and Plavix. The patient's metoprolol dose has been modified up to 25 mg p.o. twice a day. The patient remains on Zetia. Hydralazine on as-needed basis from blood pressure control. No other significant events. Labs from today shows a white cell count of 6.1 hemoglobin 8.4 and platelet count of 121. Sodium is at 132, BUN is at 53 with a creatinine of 4.6. Potassium is at 4.2. LFTs are within normal limits. The patient is ambulating. Overall condition is stable for now. Objective - Vital Signs Vital signs: Vital Signs Temp 98 F 10/21/23 00:00 Pulse 62 10/21/23 07:00 Resp 10 L 10/21/23 07:00 BP 112/49 10/21/23 07:00 Pulse Ox 94 L 10/21/23 08:22 FiO2 35 10/18/23 10:41 Intake & Output 10/20/23 10/21/23 10/21/23 18:59 06:59 18:59 Intake Total 1361.124 283.940 254.865 Output Total 2700 0 0 Balance -1338.876 283.940 254.865 Weight 107.3 kg Intake: IV 20 Lactated Ringers 1,000 ml 20 @ 20 mls/hr IV .Q24H JOEY Rx#:[id number] Intake, IV Titration 41.124 83.940 4.865 Amount Insulin Regular 100 unit 41.124 83.940 4.865 In Sodium Chloride 0.9% 100 ml @ Per Protocol IV .Q0M JOEY Rx#:[id number] Oral 900 200 Tube Feeding 250 Hemodialysis 400 Output: Urine 300 0 0 Hemodialysis 2400 Other: Voiding Method Urinal Urinal # Bowel Movements 1 ABP, PAP, CO, CI - Last Documented Arterial Blood Pressure 98/28 Pulmonary Artery Pressure 36/5 Cardiac Output 6.3 Cardiac Index 3 - Exam CONSTITUTIONAL: Sitting up to the bedside chair in the intensive care unit, appears comfortable, cooperative, no apparent acute distress. Patient is currently on room air oxygen. HEENT: Neck is supple, no JVD, no lymphadenopathy. RESPIRATORY: Lungs sounds essentially clear throughout, diminished to his bilateral bases. Respirations are symmetrical and nonlabored. CARDIOVASCULAR: Regular rhythm and rate. S1 and S2 present, negative for S3, gallop or murmur. Sternum is stable. Palpable peripheral pulses bilaterally. No calf pain or tenderness noted. Heart hugger in place with patient demonstrating appropriate use. Knee-high ENMA hose and sequential compression devices in place to his bilateral lower extremities. GASTROINTESTINAL: Abdomen soft, nontender, nondistended. Active bowel sounds present 4 quadrants. Tolerating diet. Passing flatus. No guarding or rigidity. Bowel movement this a.m. GENITOURINARY: Left arm AV fistula with positive thrill and bruit. Hemodialysis pending this morning. No urine output in the last 8 hours. INTEGUMENTARY: Skin is warm and dry with no evidence of clubbing or cyanosis. Midline sternal incision clean dry and well approximated, covered with dry intact dressing. Left lower extremity EVH sites well approximated without redness or drainage. NEUROLOGIC: Cranial nerves II through XII intact. No focal deficits. MUSKULOSKELETAL: Able to move all extremities, strength equal bilaterally. PSYCHIATRIC: Alert and oriented to person place and time, appropriate affect, intact judgment and insight. INVASIVE LINES AND TUBES: Ventricular epicardial pacemaker wires present, and grounded. - Labs CBC & Chem 7: 10/21/23 04:28 10/21/23 04:28 Labs: Abnormal Lab Results - Last 24 Hours (Table) 10/20/23 10/20/23 10/20/23 Range/Units 10:02 12:16 16:03 RBC (4.30-5.90) m/uL Hgb (13.0-17.5) gm/dL Hct (39.0-53.0) % Plt Count (150-450) k/uL Lymphocytes # (Manual) (1.0-4.8) k/uL Sodium (137-145) mmol/L Chloride (98-107) mmol/L BUN (9-20) mg/dL Creatinine (0.66-1.25) mg/dL Glucose (74-99) mg/dL POC Glucose (mg/dL) 146 H 111 H 215 H (70-110) mg/dL Calcium (8.4-10.2) mg/dL Alkaline Phosphatase (38-126) U/L Total Protein (6.3-8.2) g/dL Albumin (3.5-5.0) g/dL 10/20/23 10/20/23 10/20/23 Range/Units 17:24 18:02 18:55 RBC (4.30-5.90) m/uL Hgb (13.0-17.5) gm/dL Hct (39.0-53.0) % Plt Count (150-450) k/uL Lymphocytes # (Manual) (1.0-4.8) k/uL Sodium (137-145) mmol/L Chloride (98-107) mmol/L BUN (9-20) mg/dL Creatinine (0.66-1.25) mg/dL Glucose (74-99) mg/dL POC Glucose (mg/dL) 211 H 235 H 267 H (70-110) mg/dL Calcium (8.4-10.2) mg/dL Alkaline Phosphatase (38-126) U/L Total Protein (6.3-8.2) g/dL Albumin (3.5-5.0) g/dL 10/20/23 10/20/23 10/21/23 Range/Units 20:13 21:03 01:10 RBC (4.30-5.90) m/uL Hgb (13.0-17.5) gm/dL Hct (39.0-53.0) % Plt Count (150-450) k/uL Lymphocytes # (Manual) (1.0-4.8) k/uL Sodium (137-145) mmol/L Chloride (98-107) mmol/L BUN (9-20) mg/dL Creatinine (0.66-1.25) mg/dL Glucose (74-99) mg/dL POC Glucose (mg/dL) 175 H 122 H 127 H (70-110) mg/dL Calcium (8.4-10.2) mg/dL Alkaline Phosphatase (38-126) U/L Total Protein (6.3-8.2) g/dL Albumin (3.5-5.0) g/dL 10/21/23 10/21/23 10/21/23 Range/Units 01:56 02:56 04:01 RBC (4.30-5.90) m/uL Hgb (13.0-17.5) gm/dL Hct (39.0-53.0) % Plt Count (150-450) k/uL Lymphocytes # (Manual) (1.0-4.8) k/uL Sodium (137-145) mmol/L Chloride (98-107) mmol/L BUN (9-20) mg/dL Creatinine (0.66-1.25) mg/dL Glucose (74-99) mg/dL POC Glucose (mg/dL) 122 H 144 H 143 H (70-110) mg/dL Calcium (8.4-10.2) mg/dL Alkaline Phosphatase (38-126) U/L Total Protein (6.3-8.2) g/dL Albumin (3.5-5.0) g/dL 10/21/23 10/21/23 10/21/23 Range/Units 04:28 04:28 05:14 RBC 2.53 L (4.30-5.90) m/uL Hgb 8.4 L (13.0-17.5) gm/dL Hct 24.6 L (39.0-53.0) % Plt Count 121 L (150-450) k/uL Lymphocytes # (Manual) 0.37 L (1.0-4.8) k/uL Sodium 132 L (137-145) mmol/L Chloride 94 L (98-107) mmol/L BUN 53 H (9-20) mg/dL Creatinine 4.60 H (0.66-1.25) mg/dL Glucose 128 H (74-99) mg/dL POC Glucose (mg/dL) 141 H (70-110) mg/dL Calcium 8.3 L (8.4-10.2) mg/dL Alkaline Phosphatase 135 H (38-126) U/L Total Protein 6.0 L (6.3-8.2) g/dL Albumin 3.2 L (3.5-5.0) g/dL 10/21/23 10/21/23 Range/Units 06:13 07:01 RBC (4.30-5.90) m/uL Hgb (13.0-17.5) gm/dL Hct (39.0-53.0) % Plt Count (150-450) k/uL Lymphocytes # (Manual) (1.0-4.8) k/uL Sodium (137-145) mmol/L Chloride (98-107) mmol/L BUN (9-20) mg/dL Creatinine (0.66-1.25) mg/dL Glucose (74-99) mg/dL POC Glucose (mg/dL) 130 H 111 H (70-110) mg/dL Calcium (8.4-10.2) mg/dL Alkaline Phosphatase (38-126) U/L Total Protein (6.3-8.2) g/dL Albumin (3.5-5.0) g/dL Assessment and Plan Plan: Assessment Multivessel coronary artery disease with involvement of left main and chronic total occlusion of the circumflex artery. The patient underwent two-vessel bypass surgery with TIAN to LAD and SVG to ramus and the patient is currently postop day # 4. Hemodynamically stable, Postthoracotomy, extubated on 10/18/2023 current densities of actual nasal cannula. All of the chest was admitted moved. Chest x-ray showing postsurgical changes.. No evidence of any pneumothorax. Currently on room air oxygen Chronic diastolic heart failure with preserved LV function Recent history of myocardial infarction secondary to coronary artery disease End-stage renal disease on hemodialysis 3 times a week, TTS and the patient has an AV fistula in his right upper extremity, patient last hemodialysis yesterday and a total of 2 L of fluid was removed Hypertension Hyperlipidemia Insulin-dependent diabetes mellitus and the patient is currently on sliding scale insulin coverage. He has a backup insulin drip if needed. COPD Obstructive sleep apnea, not significantly compliant to CPAP therapy History of smoking quit back in 1981 Peripheral neuropathy related to diabetes mellitus Orthostatic hypotension History of mild intermittent bronchial asthma currently inactive and stable History of staphylococcal septicemia related to permacath infection back in 2022 Plan Patient is currently on oxygen Continues incentive spirometer Hemodialysis was performed yesterday Chest tubes have been removed Clinically and hemodynamically stable. Adequate cardiac output and index and the patient is currently on no pressors Continue aspirin and Plavix and metoprolol dose of 25 mg twice a day Postop hemoglobin is stable Blood sugar management as per medicine Ambulate the patient Car Supervisor on the case Will continue to follow,
--- NOTE | 2023-10-21 14:52 | P.PN ---
Subjective Progress Note Date: 10/21/23 (delayed charting seen at 0905) Patient is a 72-year-old male with coronary artery disease, end-stage renal disease on hemodialysis Tuesday//Tuesday, diabetes mellitus type 2 with insulin pump, COPD, heart failure with ejection fraction 50 to 55%, and multiple other comorbid conditions who presented for two-vessel coronary artery bypass grafting. He tolerated the procedure well. He required prolonged intubation. Patient seen and examined at bedside. Still feeling rather sleepy. But feeling much better than yesterday. Pain is better controlled. Shortness of breath is improved from yesterday. He does feel comfortable using his insulin pump today. Vital signs reviewed General: Ill-appearing, mild distress due to pain, appears at stated age Cardiovascular: S1S2 reg, no murmur Lungs: Decreased breath sounds bilateral, no rhonchi, no rales, no accessory muscle use Abdominal: Soft, nontender to palpation, no guarding Ext: No gross muscle atrophy, trace edema b/l lower extremities, no contractures Neuro: CN II-XI grossly intact, no focal neuro deficits Psych: Alert, oriented, appropriate affect Assessment/Plan: Patient is a 72-year-old male status post two-vessel coronary artery bypass grafting Compensated diastolic congestive heart failure with ejection fraction 50 to 55% Hypertension Dyslipidemia -Critical care note reviewed: Continue current care plan -CT surgery note reviewed: Discharge home anticipated in the next 24 hours. - Await further cardio recs -Aspirin 325 mg daily -Plavix 75 mg daily -Zetia 10 mg daily -Metoprolol 25 mg PO BID Acute blood loss anemia, anticipated outcome of surgery Thrombocytopenia, anticipated outcome of surgery -Patient's preoperative hemoglobin was 12.2. -No indication for transfusion at this time -Follow CBC Diabetes mellitus type 2, insulin-dependent -Once arrives with insulin pump, supplies, and CGM will discontinue IV insulin and start pump. Nursing to check every hour blood sugars for an additional 4 hours after pump insertion and then can transition to before every meal and at bedtime. - very brittle diabetic, follow BS closely. End-stage renal disease on hemodialysis Tuesday//Tuesday -Nephrology note reviewed: Continue air naps and hemodialysis again tomorrow - HD //Tue COPD without exacerbation Obstructive sleep apnea -Continue with scheduled DuoNeb Data Review: Labs reviewed from today include CBC and basic metabolic profile which are remarkable for hemoglobin 8.4, platelets 121, sodium 132, BUN 53, creatinine 4.60 DVT prophylaxis: Heparin SC Thank you for allowing us to participate in the care of this pleasant patient. Do not hesitate to contact us with questions. Someone can be reached from the [facility] hospitalist group all hours of the day at [phone] or via perfect serve. This dictation was prepared using [employer] voice recognition software. Though every attempt is made to correct errors during dictation some may still exist. Objective - Vital Signs Vital signs: Vital Signs Temp 97.7 F 10/21/23 12:00 Pulse 71 10/21/23 12:00 Resp 13 10/21/23 12:00 BP 113/53 10/21/23 12:00 Pulse Ox 96 10/21/23 12:00 FiO2 35 10/18/23 10:41 Intake & Output 10/20/23 10/21/23 10/21/23 18:59 06:59 18:59 Intake Total 1361.124 283.940 263.955 Output Total 2700 0 0 Balance -1338.876 283.940 263.955 Weight 107.3 kg Intake: IV 20 Lactated Ringers 1,000 ml 20 @ 20 mls/hr IV .Q24H JOEY Rx#:[id number] Intake, IV Titration 41.124 83.940 13.955 Amount Insulin Regular 100 unit 41.124 83.940 13.955 In Sodium Chloride 0.9% 100 ml @ Per Protocol IV .Q0M JOEY Rx#:[id number] Oral 900 200 Tube Feeding 250 Hemodialysis 400 Output: Urine 300 0 0 Hemodialysis 2400 Other: Voiding Method Urinal Urinal Urinal # Bowel Movements 1 ABP, PAP, CO, CI - Last Documented Arterial Blood Pressure 98/28 Pulmonary Artery Pressure 36/5 Cardiac Output 6.3 Cardiac Index 3 - Labs CBC & Chem 7: 10/21/23 04:28 10/21/23 04:28 Labs: Abnormal Lab Results - Last 24 Hours (Table) 10/20/23 10/20/23 10/20/23 Range/Units 16:03 17:24 18:02 RBC (4.30-5.90) m/uL Hgb (13.0-17.5) gm/dL Hct (39.0-53.0) % Plt Count (150-450) k/uL Lymphocytes # (Manual) (1.0-4.8) k/uL Sodium (137-145) mmol/L Chloride (98-107) mmol/L BUN (9-20) mg/dL Creatinine (0.66-1.25) mg/dL Glucose (74-99) mg/dL POC Glucose (mg/dL) 215 H 211 H 235 H (70-110) mg/dL Calcium (8.4-10.2) mg/dL Alkaline Phosphatase (38-126) U/L Total Protein (6.3-8.2) g/dL Albumin (3.5-5.0) g/dL 10/20/23 10/20/23 10/20/23 Range/Units 18:55 20:13 21:03 RBC (4.30-5.90) m/uL Hgb (13.0-17.5) gm/dL Hct (39.0-53.0) % Plt Count (150-450) k/uL Lymphocytes # (Manual) (1.0-4.8) k/uL Sodium (137-145) mmol/L Chloride (98-107) mmol/L BUN (9-20) mg/dL Creatinine (0.66-1.25) mg/dL Glucose (74-99) mg/dL POC Glucose (mg/dL) 267 H 175 H 122 H (70-110) mg/dL Calcium (8.4-10.2) mg/dL Alkaline Phosphatase (38-126) U/L Total Protein (6.3-8.2) g/dL Albumin (3.5-5.0) g/dL 10/21/23 10/21/23 10/21/23 Range/Units 01:10 01:56 02:56 RBC (4.30-5.90) m/uL Hgb (13.0-17.5) gm/dL Hct (39.0-53.0) % Plt Count (150-450) k/uL Lymphocytes # (Manual) (1.0-4.8) k/uL Sodium (137-145) mmol/L Chloride (98-107) mmol/L BUN (9-20) mg/dL Creatinine (0.66-1.25) mg/dL Glucose (74-99) mg/dL POC Glucose (mg/dL) 127 H 122 H 144 H (70-110) mg/dL Calcium (8.4-10.2) mg/dL Alkaline Phosphatase (38-126) U/L Total Protein (6.3-8.2) g/dL Albumin (3.5-5.0) g/dL 10/21/23 10/21/23 10/21/23 Range/Units 04:01 04:28 04:28 RBC 2.53 L (4.30-5.90) m/uL Hgb 8.4 L (13.0-17.5) gm/dL Hct 24.6 L (39.0-53.0) % Plt Count 121 L (150-450) k/uL Lymphocytes # (Manual) 0.37 L (1.0-4.8) k/uL Sodium 132 L (137-145) mmol/L Chloride 94 L (98-107) mmol/L BUN 53 H (9-20) mg/dL Creatinine 4.60 H (0.66-1.25) mg/dL Glucose 128 H (74-99) mg/dL POC Glucose (mg/dL) 143 H (70-110) mg/dL Calcium 8.3 L (8.4-10.2) mg/dL Alkaline Phosphatase 135 H (38-126) U/L Total Protein 6.0 L (6.3-8.2) g/dL Albumin 3.2 L (3.5-5.0) g/dL 10/21/23 10/21/23 10/21/23 Range/Units 05:14 06:13 07:01 RBC (4.30-5.90) m/uL Hgb (13.0-17.5) gm/dL Hct (39.0-53.0) % Plt Count (150-450) k/uL Lymphocytes # (Manual) (1.0-4.8) k/uL Sodium (137-145) mmol/L Chloride (98-107) mmol/L BUN (9-20) mg/dL Creatinine (0.66-1.25) mg/dL Glucose (74-99) mg/dL POC Glucose (mg/dL) 141 H 130 H 111 H (70-110) mg/dL Calcium (8.4-10.2) mg/dL Alkaline Phosphatase (38-126) U/L Total Protein (6.3-8.2) g/dL Albumin (3.5-5.0) g/dL 10/21/23 10/21/23 10/21/23 Range/Units 11:34 12:22 13:46 RBC (4.30-5.90) m/uL Hgb (13.0-17.5) gm/dL Hct (39.0-53.0) % Plt Count (150-450) k/uL Lymphocytes # (Manual) (1.0-4.8) k/uL Sodium (137-145) mmol/L Chloride (98-107) mmol/L BUN (9-20) mg/dL Creatinine (0.66-1.25) mg/dL Glucose (74-99) mg/dL POC Glucose (mg/dL) 210 H 174 H 176 H (70-110) mg/dL Calcium (8.4-10.2) mg/dL Alkaline Phosphatase (38-126) U/L Total Protein (6.3-8.2) g/dL Albumin (3.5-5.0) g/dL
[2023-10-21 15:03] LABS: Glucose,Whole Blood 132 mg/dL (70-110)
--- NOTE | 2023-10-21 15:33 | P.PN ---
Subjective HISTORY OF PRESENTING ILLNESS Patient is pleasant 72-year-old male with history of diabetes mellitus type 2, hypertension, hyperlipidemia, CAD with previous PCI, end-stage renal disease on hemodialysis, chronic diastolic heart failure, remote tobacco abuse, COPD, obstructive sleep apnea, osteoarthritis. Patient follows in the office with myself. He has been having issues with fatigue as well as chest pain and shortness breath. Initially much of his issues were related to heart failure and eventually underwent dialysis with significant amount of fluid removal and had some improvement. Unfortunately he continued to have significant and wo rsening dyspnea on exertion and repeat heart catheterization that showed progression of left main disease and therefore recommended bypass surgery. Patient underwent successful off-pump CABG on 10/16 with a TIAN to LAD and SVG to ramus as well as left atrial appendage clip. He was placed on amiodarone per protocol however did have some bradycardia intermittently. He was unable to be extubated secondary to fluid retention and did have dialysis this morning with approximately 2 L taken off with better oxygenation and able to be extubated at approximately noon. He currently admits to feeling significantly sore however otherwise no significant chest pain or shortness breath. Blood work today creatinine 4.5, AST 75, ALT 33, hemoglobin 9.7, platelets 103. 10/18 Patient seen and examined. Patient had an arterial line removed today as well as expected to have chest tubes removed. He still does have some positional, musculoskeletal chest pain. He denies any significant shortness breath. He is scheduled to undergo hemodialysis tomorrow. 10/19 Patient seen and examined. Patient had pacemaker wires removed today. He underwent dialysis. He is able to walk the halls and working with physical therapy. Denies any chest pain or pressure. 10/20 Patient seen and examined. Patient denies any chest pain or pressure. Blood pressures been stable. Remains in sinus rhythm. Plan for dialysis tomorrow. PHYSICAL EXAMINATION Vital signs reviewed. CONSTITUTIONAL: No apparent distress. HEENT: Head is normocephalic. Pupils are equal, round. Sclerae anicteric. Mucous membranes of the mouth are moist. No JVD. No carotid bruit. CHEST EXAMINATION: Lungs are clear to auscultation. No chest wall tenderness is noted on palpation or with deep breathing. HEART EXAMINATION: Regular rate and rhythm. S1, S2 heard. No murmurs, gallops or rub. ABDOMEN: Soft, nontender. Positive bowel sounds. EXTREMITIES: 2+ peripheral pulses, no lower extremity edema and no calf tenderness. NEUROLOGIC EXAMINATION: Patient is awake, alert and oriented x3. ASSESSMENT 1. CAD status post previous PCI and most recently status post TIAN to LAD, SVG to ramus 10/16 2. Hypertension 3. Acute on chronic diastolic heart failure 4. End-stage renal disease on hemodialysis 5. Anemia 6. Thrombocytopenia 7. Diabetes mellitus type 2 8. Obstructive sleep apnea and PLAN No significant changes today. He remains relatively stable from a cardiac standpoint. Likely discharge home tomorrow after dialysis. Objective - Vital Signs Vital signs: Vital Signs Temp 97.7 F 10/21/23 12:00 Pulse 71 10/21/23 12:00 Resp 13 10/21/23 12:00 BP 113/53 10/21/23 12:00 Pulse Ox 96 10/21/23 12:00 FiO2 35 10/18/23 10:41 Intake & Output 10/20/23 10/21/23 10/21/23 18:59 06:59 18:59 Intake Total 1361.124 283.940 263.955 Output Total 2700 0 0 Balance -1338.876 283.940 263.955 Weight 107.3 kg Intake: IV 20 Lactated Ringers 1,000 ml 20 @ 20 mls/hr IV .Q24H [facility] Rx#:[id number] Intake, IV Titration 41.124 83.940 13.955 Amount Insulin Regular 100 unit 41.124 83.940 13.955 In Sodium Chloride 0.9% 100 ml @ Per Protocol IV .Q0M [facility] Rx#:[id number] Oral 900 200 Tube Feeding 250 Hemodialysis 400 Output: Urine 300 0 0 Hemodialysis 2400 Other: Voiding Method Urinal Urinal Urinal # Bowel Movements 1 ABP, PAP, CO, CI - Last Documented Arterial Blood Pressure 98/28 Pulmonary Artery Pressure 36/5 Cardiac Output 6.3 Cardiac Index 3 - Labs CBC & Chem 7: 10/21/23 04:28 10/21/23 04:28 Labs: Abnormal Lab Results - Last 24 Hours (Table) 10/20/23 10/20/23 10/20/23 Range/Units 16:03 17:24 18:02 RBC (4.30-5.90) m/uL Hgb (13.0-17.5) gm/dL Hct (39.0-53.0) % Plt Count (150-450) k/uL Lymphocytes # (Manual) (1.0-4.8) k/uL Sodium (137-145) mmol/L Chloride (98-107) mmol/L BUN (9-20) mg/dL Creatinine (0.66-1.25) mg/dL Glucose (74-99) mg/dL POC Glucose (mg/dL) 215 H 211 H 235 H (70-110) mg/dL Calcium (8.4-10.2) mg/dL Alkaline Phosphatase (38-126) U/L Total Protein (6.3-8.2) g/dL Albumin (3.5-5.0) g/dL 10/20/23 10/20/23 10/20/23 Range/Units 18:55 20:13 21:03 RBC (4.30-5.90) m/uL Hgb (13.0-17.5) gm/dL Hct (39.0-53.0) % Plt Count (150-450) k/uL Lymphocytes # (Manual) (1.0-4.8) k/uL Sodium (137-145) mmol/L Chloride (98-107) mmol/L BUN (9-20) mg/dL Creatinine (0.66-1.25) mg/dL Glucose (74-99) mg/dL POC Glucose (mg/dL) 267 H 175 H 122 H (70-110) mg/dL Calcium (8.4-10.2) mg/dL Alkaline Phosphatase (38-126) U/L Total Protein (6.3-8.2) g/dL Albumin (3.5-5.0) g/dL 10/21/23 10/21/23 10/21/23 Range/Units 01:10 01:56 02:56 RBC (4.30-5.90) m/uL Hgb (13.0-17.5) gm/dL Hct (39.0-53.0) % Plt Count (150-450) k/uL Lymphocytes # (Manual) (1.0-4.8) k/uL Sodium (137-145) mmol/L Chloride (98-107) mmol/L BUN (9-20) mg/dL Creatinine (0.66-1.25) mg/dL Glucose (74-99) mg/dL POC Glucose (mg/dL) 127 H 122 H 144 H (70-110) mg/dL Calcium (8.4-10.2) mg/dL Alkaline Phosphatase (38-126) U/L Total Protein (6.3-8.2) g/dL Albumin (3.5-5.0) g/dL 10/21/23 10/21/23 10/21/23 Range/Units 04:01 04:28 04:28 RBC 2.53 L (4.30-5.90) m/uL Hgb 8.4 L (13.0-17.5) gm/dL Hct 24.6 L (39.0-53.0) % Plt Count 121 L (150-450) k/uL Lymphocytes # (Manual) 0.37 L (1.0-4.8) k/uL Sodium 132 L (137-145) mmol/L Chloride 94 L (98-107) mmol/L BUN 53 H (9-20) mg/dL Creatinine 4.60 H (0.66-1.25) mg/dL Glucose 128 H (74-99) mg/dL POC Glucose (mg/dL) 143 H (70-110) mg/dL Calcium 8.3 L (8.4-10.2) mg/dL Alkaline Phosphatase 135 H (38-126) U/L Total Protein 6.0 L (6.3-8.2) g/dL Albumin 3.2 L (3.5-5.0) g/dL 10/21/23 10/21/23 10/21/23 Range/Units 05:14 06:13 07:01 RBC (4.30-5.90) m/uL Hgb (13.0-17.5) gm/dL Hct (39.0-53.0) % Plt Count (150-450) k/uL Lymphocytes # (Manual) (1.0-4.8) k/uL Sodium (137-145) mmol/L Chloride (98-107) mmol/L BUN (9-20) mg/dL Creatinine (0.66-1.25) mg/dL Glucose (74-99) mg/dL POC Glucose (mg/dL) 141 H 130 H 111 H (70-110) mg/dL Calcium (8.4-10.2) mg/dL Alkaline Phosphatase (38-126) U/L Total Protein (6.3-8.2) g/dL Albumin (3.5-5.0) g/dL 10/21/23 10/21/23 10/21/23 Range/Units 11:34 12:22 13:46 RBC (4.30-5.90) m/uL Hgb (13.0-17.5) gm/dL Hct (39.0-53.0) % Plt Count (150-450) k/uL Lymphocytes # (Manual) (1.0-4.8) k/uL Sodium (137-145) mmol/L Chloride (98-107) mmol/L BUN (9-20) mg/dL Creatinine (0.66-1.25) mg/dL Glucose (74-99) mg/dL POC Glucose (mg/dL) 210 H 174 H 176 H (70-110) mg/dL Calcium (8.4-10.2) mg/dL Alkaline Phosphatase (38-126) U/L Total Protein (6.3-8.2) g/dL Albumin (3.5-5.0) g/dL 10/21/23 Range/Units 15:02 RBC (4.30-5.90) m/uL Hgb (13.0-17.5) gm/dL Hct (39.0-53.0) % Plt Count (150-450) k/uL Lymphocytes # (Manual) (1.0-4.8) k/uL Sodium (137-145) mmol/L Chloride (98-107) mmol/L BUN (9-20) mg/dL Creatinine (0.66-1.25) mg/dL Glucose (74-99) mg/dL POC Glucose (mg/dL) 132 H (70-110) mg/dL Calcium (8.4-10.2) mg/dL Alkaline Phosphatase (38-126) U/L Total Protein (6.3-8.2) g/dL Albumin (3.5-5.0) g/dL
[2023-10-21 16:09] LABS: Glucose,Whole Blood 126 mg/dL (70-110)
[2023-10-21 16:40] VITALS: BMI 35.9
[2023-10-21] MEDS: MUPIROCIN 2% OINT 22 GM TUBE NASAL ONE (17:50)
[2023-10-21] MEDS: CLEVIDIPINE BUTYRATE 25 MG in EMPTY BAG 1 BAG IV ONE (17:50)
[2023-10-21] MEDS: CALCIUM CHLORIDE 100 MG/ML 10 ML SYRINGE IV ONE (17:50)
[2023-10-21] MEDS: CHLORHEXIDINE GLUCONATE 15 ML CUP MUCOUS MEM ONE (17:50)
[2023-10-21] MEDS: ASPIRIN 325 MG TAB PO ONE (17:50)
[2023-10-21] MEDS: ALBUMIN HUMAN 25% 50 ML IV ONE (17:50)
[2023-10-21] MEDS: ALBUMIN HUMAN 5% 500 ML IVPB ONE (17:50)
[2023-10-21] MEDS: DILTIAZEM 125 MG in SODIUM CHLORIDE 0.9% 100 ML IV ONE (17:51)
[2023-10-21] MEDS: HEPARIN SODIUM 1,000 UN/ML (10ML VL) IV ONE (17:51)
[2023-10-21] MEDS: ELECTROLYTE-A SOLUTION 1,000 ML with POTASSIUM CHLORIDE 100 MEQ, MAGNESIUM SULFATE 16 M... IV ONE (17:51)
[2023-10-21] MEDS: ELECTROLYTE-A SOLUTION 1,000 ML with POTASSIUM CHLORIDE 40 MEQ, MAGNESIUM SULFATE 16 ME... IV ONE (17:51)
[2023-10-21] MEDS: INSULIN REGULAR 100 UNIT in SODIUM CHLORIDE 0.9% 100 ML IV ONE (17:51)
[2023-10-21] MEDS: LACTATED RINGERS 1,000 ML IV ONE (17:51)
[2023-10-21] MEDS: NITROGLYCERIN-D5W PMX 25 MG/250 ML BTL IV ONE (17:52)
[2023-10-21] MEDS: NITROGLYCERIN-D5W PMX 50 MG in DEXTROSE/WATER 1 250ML.BAG IV ONE (17:52)
[2023-10-21] MEDS: NITROGLYCERIN SL TABS 0.4 MG TAB SUBLINGUAL ONE (17:52)
[2023-10-21] MEDS: MAGNESIUM SULFATE 16.24 MEQ in EMPTY SYRINGE 1 SYR IV ONE (17:52)
[2023-10-21] MEDS: PHENYLEPHRINE 40 MG in SODIUM CHLORIDE 0.9% 250 ML IV ONE (17:52)
[2023-10-21] MEDS: NOREPINEPHRINE 4 MG in SODIUM CHLORIDE 0.9% 250 ML IV ONE (17:52)
[2023-10-21] MEDS: PHENYLEPHRINE 10 MG/ML VIAL IV ONE (17:52)
[2023-10-21] MEDS: MANNITOL 25% 12.5 GM/50 ML VIAL IV ONE (17:52)
[2023-10-21] MEDS: SODIUM BICARB 8.4% 50 ML SYR (1 MEQ/ML) IV ONE (17:53)
[2023-10-21] MEDS: PROTAMINE SULFATE 250 MG in EMPTY BAG 1 BAG IV ONE (17:53)
[2023-10-21] MEDS: TRANEXAMIC ACID 2,000 MG in SODIUM CHLORIDE 0.9% 80 ML IV ONE (17:53)
[2023-10-21] MEDS: propofoL 1,000 MG/100 ML VIAL IV ONE (17:53)
[2023-10-21] MEDS: PROTAMINE SULFATE 10 MG/ML 25 ML VIAL IV ONE (17:53)
[2023-10-21 18:02] LABS: Glucose,Whole Blood 210 mg/dL (70-110)
[2023-10-21] MEDS ORDERED: INSULIN PUMP BASAL RATES 1 EACH MISC MISCELLANE PRN (18:12)
[2023-10-21] MEDS ORDERED: INSPUCOR MISCELLANE PRN (18:12)
[2023-10-21 18:59] LABS: Glucose,Whole Blood 227 mg/dL (70-110)
[2023-10-21] MEDS: INSULIN PUMP MEAL BOLUS 1 UNIT MISC MISCELLANE SCH (18:59)
[2023-10-21 19:56] LABS: Glucose,Whole Blood 251 mg/dL (70-110)
[2023-10-22] MEDS: ACETAMINOPHEN TAB 500 MG TAB PO PRN (02:30)
[2023-10-22] MEDS: MORPHINE SULFATE 4 MG/ML SYRINGE IVP PRN (03:45)
[2023-10-22 05:59] LABS: Glucose,Whole Blood 220 mg/dL (70-110)
--- NOTE | 2023-10-22 06:42 | XR ---
EXAMINATION TYPE: XR chest 1V portable DATE OF EXAM: 10/22/2023 COMPARISON: 10/19/2023 HISTORY: Postop CABG TECHNIQUE: Single frontal view of the chest is obtained. FINDINGS: There are postsurgical changes consistent with CABG surgery. Mild atelectasis in the left lung base is cleared in the interval. Both lungs are currently clear. Th ere is no pulmonary vascular congestion. There is no pleural effusion or pneumothorax. The osseous st ructures are intact. IMPRESSION: IMPRESSION: 1. CABG surgery. 2. No acute cardiopulmonary disease. Resolution of the left lower lobe infiltrate/atelectasis.
--- NOTE | 2023-10-22 09:50 | P.PN ---
Subjective Progress Note Date: 10/22/23 Principal diagnosis: Coronary artery disease. Past medical history significant for stable angina, coronary artery disease with previous PCI, hypertension, hyperlipidemia, insulin-dependent diabetes mellitus, chronic diastolic heart failure, mild cardiomyopathy with ejection fraction of 50%, end-stage renal disease on hemodialysis Tuesdays, and Saturdays, history of myocardial infarction in 2006, chronic obstructive pulmonary disease, obstructive sleep apnea with no ncompliance of use of his CPAP, peripheral neuropathy, remote history of smoking quit in 1981, osteoarthritis and occasional constipation. POD #5 Off pump coronary artery bypass grafting x 2. Left internal thoracic artery (in-situ) to left anterior descending coronary artery. Saphenous vein from aorta to ramus intermedius, Coronary patch angioplasty to ramus intermedius, Left atrial appendage ligation using #35mm AtriClip, Endoscopic left greater saphenous vein harvest, intraoperative transesophageal echocardiogram performed by anesthesia. Postoperative acute blood loss anemia, expected given hemodilution. The patient was seen and examined in follow-up today October 22, 2023 at his bedside on the third floor cardiac stepdown unit. The patient is currently up ambulating in the cardiac stepdown unit with standby assistance from nursing staff. He is awake, alert, oriented x 3 and is in no acute apparent distress. Denies any complaints of pain or shortness of breath at this time. States he did not sleep well last night. Oxygen saturations are 97% on room air and he is achieving 2250 mL on his incentive spirometry with encouragement. Remote telemetry is showing normal sinus rhythm heart rate 71 bpm. He is awaiting hemodialysis today. Discharge planning is in place. He remains hemodynamically stable and is currently on no inotropic or pressor support. Laboratory results remain pending and chest x-ray results reviewed. Objective - Vital Signs Vital signs: Vital Signs Temp 98.3 F 10/22/23 03:55 Pulse 68 10/22/23 09:29 Resp 16 10/22/23 03:55 BP 121/64 10/22/23 03:55 Pulse Ox 96 10/22/23 09:18 FiO2 21 10/22/23 09:18 Intake & Output 10/21/23 10/22/23 10/22/23 18:59 06:59 18:59 Intake Total 696.443 Output Total 0 Balance 696.443 Weight 107.3 kg 101.8 kg Intake: Intake, IV Titration 46.443 Amount Insulin Regular 100 unit 46.443 In Sodium Chloride 0.9% 100 ml @ Per Protocol IV .Q0M [facility] Rx#:[id number] Oral 400 Tube Feeding 250 Output: Urine 0 Other: Voiding Method Urinal Toilet # Voids 1 ABP, PAP, CO, CI - Last Documented Arterial Blood Pressure 98/28 Pulmonary Artery Pressure 36/5 Cardiac Output 6.3 Cardiac Index 3 - Exam CONSTITUTIONAL: Appears comfortable, cooperative, no apparent acute distress. HEENT: Neck is supple, no JVD, no lymphadenopathy. RESPIRATORY: Lungs sounds essentially clear throughout, diminished to his bilateral bases. Respirations are symmetrical and nonlabored. Currently on room air with oxygen saturations 97%. Able to achieve 2250 mL on his incentive spirometry. Strong cough. CARDIOVASCULAR: Regular rhythm and rate. S1 and S2 present, negative for S3, gallop or murmur. Sternum is stable. Palpable peripheral pulses bilaterally. No calf pain or tenderness noted. Heart hugger in place with patient demonstrating appropriate use. Knee-high ENMA hose and sequential compression devices in place to his bilateral lower extremities. GASTROINTESTINAL: Abdomen soft, nontender, nondistended. Active bowel sounds present 4 quadrants. Tolerating diet. Passing flatus. No guarding or rigidity. Bowel movement on 10/20/2023. GENITOURINARY: Continues to void. Left arm AV fistula with positive thrill and bruit. Hemodialysis completed September with 2.4 L ultrafiltration completed. INTEGUMENTARY: Skin is warm and dry with no evidence of clubbing or cyanosis. Midline sternal incision clean dry and well approximated, covered with dry inta ct dressing. Left lower extremity EVH sites well approximated without redness or drainage. NEUROLOGIC: Cranial nerves II through XII intact. No focal deficits. MUSKULOSKELETAL: Able to move all extremities, strength equal bilaterally. PSYCHIATRIC: Alert and oriented to person place and time, appropriate affect, intact judgment and insight. - Labs CBC & Chem 7: 10/21/23 04:28 10/21/23 04:28 Labs: Abnormal Lab Results - Last 24 Hours (Table) 10/21/23 10/21/23 10/21/23 Range/Units 11:34 12:22 13:46 POC Glucose (mg/dL) 210 H 174 H 176 H (70-110) mg/dL 10/21/23 10/21/23 10/21/23 Range/Units 15:02 16:07 18:01 POC Glucose (mg/dL) 132 H 126 H 210 H (70-110) mg/dL 10/21/23 10/21/23 10/22/23 Range/Units 18:57 19:54 05:57 POC Glucose (mg/dL) 227 H 251 H 220 H (70-110) mg/dL - Imaging and Cardiology Chest x-ray: report reviewed, image reviewed Assessment and Plan Assessment: Coronary artery disease with left main disease, 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, status post two-vessel coronary artery bypass grafting Chronic diastolic heart failure Mild cardiomyopathy with an ejection fraction of 50% History of myocardial infarction Chronic kidney disease, on hemodialysis Tuesdays and Saturdays Hypertension Hyperlipidemia, treated cholesterol 100 mg/dL, LDL 32.2 mg/dL Insulin-dependent diabetes mellitus, with a preoperative hemoglobin A1c of 7.8% Chronic fatigue COPD with a preoperative FEV1 78% of predicted value with a base volume of 2.01 Obstructive sleep apnea, noncompliant with CPAP use History of constipation Remote history of nicotine dependence, quit smoking 1982 Neuropathy Orthostatic hypotension Plan: Continue aspirin, home dose of statin, Zetia, Plavix and beta-narcisa with hold parameters. Increase metoprolol tartrate as tolerated. Wean oxygen as tolerated. Bronchodilator management per Dr. Potter's recommendations. Increase activity as tolerated. PT/OT/cardiac rehab following. Will monitor daily labs and chest x-rays. Electrolyte replacement per protocol. Dialysis management per nephrology recommendations. His current hemodialysis schedule is Tuesdays, and Saturdays. Pain control per current as needed regimen. Avoid nephrotoxic agents. Continue to record strict accurate intake and output. Bladder scan every 6 hours and as needed postvoid residual, if greater than 300 mL of urine straight cath. Insulin management per internal medicine, patient should remain on continuous IV insulin for minimum of 48 hours, then may transition to subcutaneous per protocol GI/DVT prophylaxis. Daily weights. Shower daily. Discharge planning is in place, anticipate discharge home within the next 24, 48 hours hours with home health care. More recommendations to follow based on patient's clinical course. Time with Patient: Greater than 30
--- NOTE | 2023-10-22 10:40 | P.PN ---
Subjective Patient is seen in follow-up for end-stage renal disease. He is maintained on hemodialysis on Tuesday schedule. Status post CABG on October 17, 2023. Has been working with physical therapy. No active complaints. Vital signs are stable. General: No acute distress. HEENT: Head exam is unremarkable. LUNGS: No audible rhonchi or wheezes. HEART: Rate and Rhythm are regular. ABDOMEN: Nontender. EXTREMITITES: No edema. Objective - Vital Signs Vital signs: Vital Signs Temp 98.3 F 10/22/23 03:55 Pulse 68 10/22/23 09:29 Resp 16 10/22/23 03:55 BP 121/64 10/22/23 03:55 Pulse Ox 96 10/22/23 09:18 FiO2 21 10/22/23 09:18 Intake & Output 10/21/23 10/22/23 10/22/23 18:59 06:59 18:59 Intake Total 696.443 Output Total 0 Balance 696.443 Weight 107.3 kg 101.8 kg Intake: Intake, IV Titration 46.443 Amount Insulin Regular 100 unit 46.443 In Sodium Chloride 0.9% 100 ml @ Per Protocol IV .Q0M [facility] Rx#:[id number] Oral 400 Tube Feeding 250 Output: Urine 0 Other: Voiding Method Urinal Toilet # Voids 1 ABP, PAP, CO, CI - Last Documented Arterial Blood Pressure 98/28 Pulmonary Artery Pressure 36/5 Cardiac Output 6.3 Cardiac Index 3 - Labs CBC & Chem 7: 10/21/23 04:28 10/21/23 04:28 Labs: Abnormal Lab Results - Last 24 Hours (Table) 10/21/23 10/21/23 10/21/23 Range/Units 11:34 12:22 13:46 POC Glucose (mg/dL) 210 H 174 H 176 H (70-110) mg/dL 10/21/23 10/21/23 10/21/23 Range/Units 15:02 16:07 18:01 POC Glucose (mg/dL) 132 H 126 H 210 H (70-110) mg/dL 10/21/23 10/21/23 10/22/23 Range/Units 18:57 19:54 05:57 POC Glucose (mg/dL) 227 H 251 H 220 H (70-110) mg/dL Assessment and Plan Plan: Assessment: 1. End-stage renal disease maintained on hemodialysis on Tuesday schedule via left upper extremity AV fistula. 2. Coronary artery disease status post CABG October 17, 2023. 3. Anemia of chronic kidney disease maintained on Aranesp. 4. Volume overload. Improved with ultrafiltration. Plan: Hemodialysis today.
[2023-10-22 11:17] LABS: Glucose,Whole Blood 203 mg/dL (70-110)
--- NOTE | 2023-10-22 11:31 | P.PN ---
Subjective Progress Note Date: 10/22/23 Patient seen and examined at bedside. No acute events overnight. He claims that he has been getting out of the bed and using the bathroom. He has only had 1 bowel movement in the last 2 days. Back on his insulin pump. Vital signs reviewed General: No acute distress, appears at stated age Cardiovascular: S1S2 reg, no murmur Lungs: Decreased breath sounds bilateral, no rhonchi, no rales, no accessory muscle use Abdominal: Soft, nontender to palpation, no guarding Ext: No gross muscle atrophy, trace edema b/l lower extremities, no contractures Neuro: CN II-XI grossly intact, no focal neuro deficits Psych: Alert, oriented, appropriate affect Assessment/Plan: Patient is a 72-year-old male status post two-vessel coronary artery bypass grafting Compensated diastolic congestive heart failure with ejection fraction 50 to 55% Hypertension Dyslipidemia -Pulmonology following -CT surgery note reviewed: Anticipate discharge in the next 24 to 48 hours with home health care - Await further cardio recs -Aspirin 325 mg daily -Plavix 75 mg daily -Zetia 10 mg daily -Metoprolol 25 mg PO BID Acute blood loss anemia, anticipated outcome of surgery Thrombocytopenia, anticipated outcome of surgery -No acute bleeding Diabetes mellitus type 2, insulin-dependent -Now on home insulin pump - very brittle diabetic, monitor for hypoglycemia End-stage renal disease on hemodialysis Tuesday//Tuesday -Nephrology note reviewed: Line for hemodialysis today - HD //Tue COPD without exacerbation Obstructive sleep apnea -Continue with scheduled DuoNeb Data Review: Blood sugars range between 1 26-2 51 Chest x-ray independently interpreted shows no acute process. DVT prophylaxis: Heparin SC Thank you for allowing us to participate in the care of this pleasant patient. Do not hesitate to contact us with questions. Someone can be reached from the [facility] hospitalist group all hours of the day at [phone] or via perfect serve. Objective - Vital Signs Vital signs: Vital Signs Temp 98.3 F 10/22/23 08:00 Pulse 68 10/22/23 09:29 Resp 16 10/22/23 08:00 BP 121/64 10/22/23 08:00 Pulse Ox 96 10/22/23 09:18 FiO2 21 10/22/23 09:18 Intake & Output 10/21/23 10/22/23 10/22/23 18:59 06:59 18:59 Intake Total 696.443 Output Total 0 Balance 696.443 Weight 107.3 kg 101.8 kg Intake: Intake, IV Titration 46.443 Amount Insulin Regular 100 unit 46.443 In Sodium Chloride 0.9% 100 ml @ Per Protocol IV .Q0M [facility] Rx#:[id number] Oral 400 Tube Feeding 250 Output: Urine 0 Other: Voiding Method Urinal Toilet # Voids 1 ABP, PAP, CO, CI - Last Documented Arterial Blood Pressure 98/28 Pulmonary Artery Pressure 36/5 Cardiac Output 6.3 Cardiac Index 3 - Labs CBC & Chem 7: 10/21/23 04:28 10/21/23 04:28 Labs: Abnormal Lab Results - Last 24 Hours (Table) 10/21/23 10/21/23 10/21/23 Range/Units 11:34 12:22 13:46 POC Glucose (mg/dL) 210 H 174 H 176 H (70-110) mg/dL 10/21/23 10/21/23 10/21/23 Range/Units 15:02 16:07 18:01 POC Glucose (mg/dL) 132 H 126 H 210 H (70-110) mg/dL 10/21/23 10/21/23 10/22/23 Range/Units 18:57 19:54 05:57 POC Glucose (mg/dL) 227 H 251 H 220 H (70-110) mg/dL 10/22/23 Range/Units 11:15 POC Glucose (mg/dL) 203 H (70-110) mg/dL
--- NOTE | 2023-10-22 12:17 | P.PN ---
Subjective HISTORY OF PRESENT ILLNESS: Patient is pleasant 72-year-old male with history of diabetes mellitus type 2, hypertension, hyperlipidemia, CAD with previous PCI, end-stage renal disease on hemodialysis, chronic diastolic heart failure, remote tobacco abuse, COPD, obstructive sleep apnea, osteoarthritis. Patient follows in the office with myself. He has been having issues with fatigue as well as chest pain and shortness breath. Initially much of his issues were related to heart failure and eventually underwent dialysis with significant amount of fluid removal and had some improvement. Unfortunately he continued to have significant and wo rsening dyspnea on exertion and repeat heart catheterization that showed progression of left main disease and therefore recommended bypass surgery. Patient underwent successful off-pump CABG on 10/16 with a TIAN to LAD and SVG to ramus as well as left atrial appendage clip. He was placed on amiodarone per protocol however did have some bradycardia intermittently. He was unable to be extubated secondary to fluid retention and did have dialysis this morning with approximately 2 L taken off with better oxygenation and able to be extubated at approximately noon. He currently admits to feeling significantly sore however otherwise no significant chest pain or shortness breath. Blood work today creatinine 4.5, AST 75, ALT 33, hemoglobin 9.7, platelets 103. 10/18 Patient seen and examined. Patient had an arterial line removed today as well as expected to have chest tubes removed. He still does have some positional, musculoskeletal chest pain. He denies any significant shortness breath. He is scheduled to undergo hemodialysis tomorrow. 10/19 Patient seen and examined. Patient had pacemaker wires removed today. He underwent dialysis. He is able to walk the halls and working with physical therapy. Denies any chest pain or pressure. 10/20 Patient seen and examined. Patient denies any chest pain or pressure. Blood pressures been stable. Remains in sinus rhythm. Plan for dialysis tomorrow. 10/22/2023 Patient examined this morning. He has been transferred out of the intensive care unit. Patient is sitting up in the chair this morning. He denies chest pain or pressure. He denies shortness of breath. Vital signs are stable. Telemetry reveals sinus mechanism. PHYSICAL EXAM: VITAL SIGNS: Reviewed. GENERAL: Well-developed in no acute distress. NECK: Supple. No JVD or thyromegaly LUNGS: Respirations even and unlabored. Lungs essentially clear to auscultation bilaterally. HEART: Regular rate and rhythm. S1 and S2 heard. EXTREMITIES: Normal range of motion. No clubbing or cyanosis. Peripheral pulses intact. No lower extremity edema ASSESSMENT: 1. CAD status post previous PCI and most recently status post TIAN to LAD, SVG to ramus 10/16 2. Hypertension 3. Acute on chronic diastolic heart failure 4. End-stage renal disease on hemodialysis 5. Anemia 6. Thrombocytopenia 7. Diabetes mellitus type 2 8. Obstructive sleep apnea PLAN: Continue postoperative management per CT surgery Continue current cardiac medications Increase activity as tolerated Encourage use of incentive spirometer Currently stable from a cardiac standpoint Further recommendations pending patient course Nurse practitioner note has been reviewed by physician. Signing provider agrees with the documented findings, assessment, and plan of care documented by [employer] as a scribe. Objective - Vital Signs Vital signs: Vital Signs Temp 98.3 F 10/22/23 08:00 Pulse 68 10/22/23 09:29 Resp 16 10/22/23 08:00 BP 121/64 10/22/23 08:00 Pulse Ox 96 10/22/23 09:18 FiO2 21 10/22/23 09:18 Intake & Output 10/21/23 10/22/23 10/22/23 18:59 06:59 18:59 Intake Total 696.443 Output Total 0 Balance 696.443 Weight 107.3 kg 101.8 kg Intake: Intake, IV Titration 46.443 Amount Insulin Regular 100 unit 46.443 In Sodium Chloride 0.9% 100 ml @ Per Protocol IV .Q0M JOEY Rx#:[id number] Oral 400 Tube Feeding 250 Output: Urine 0 Other: Voiding Method Urinal Toilet Toilet # Voids 1 ABP, PAP, CO, CI - Last Documented Arterial Blood Pressure 98/28 Pulmonary Artery Pressure 36/5 Cardiac Output 6.3 Cardiac Index 3 - Labs CBC & Chem 7: 10/21/23 04:28 10/21/23 04:28 Labs: Abnormal Lab Results - Last 24 Hours (Table) 10/21/23 10/21/23 10/21/23 Range/Units 12:22 13:46 15:02 POC Glucose (mg/dL) 174 H 176 H 132 H (70-110) mg/dL 10/21/23 10/21/23 10/21/23 Range/Units 16:07 18:01 18:57 POC Glucose (mg/dL) 126 H 210 H 227 H (70-110) mg/dL 10/21/23 10/22/23 10/22/23 Range/Units 19:54 05:57 11:15 POC Glucose (mg/dL) 251 H 220 H 203 H (70-110) mg/dL
[2023-10-22 13:10] LABS: HCT 25.9 % (39.0-53.0); MCH 33.2 pg (25.0-35.0); MCHC 34.9 g/dL (31.0-37.0); MCV 95.3 fL (80.0-100.0); Mean Platelet Volume 10.3; Platelet Count 147 k/uL (150-450); RBC 2.72 m/uL (4.30-5.90); RDW 13.8 % (11.5-15.5); WBC 5.9 k/uL (3.8-10.6)
[2023-10-22 13:20] LABS: African American GFR (CKD) 11 (>60 ml/min/1.73 sqM); Anion Gap 19 mmol/L; Blood Urea Nitrogen 83 mg/dL (9-20); Calcium 8.3 mg/dL (8.4-10.2); Carbon Dioxide 20 mmol/L (22-30); Chloride 93 mmol/L (98-107); Glucose 183 mg/dL (74-99); Magnesium 2.5 mg/dL (1.6-2.3); Non-African American GFR(CKD) 9 (>60 ml/min/1.73 sqM); Phosphorus 6.7 mg/dL (2.5-4.5); Potassium 4.5 mmol/L (3.5-5.1); Sodium 132 mmol/L (137-145)
--- NOTE | 2023-10-22 13:24 | P.PN ---
Subjective Progress Note Date: 10/22/23 This is a 72-year-old male patient was being seen in the intensive care unit following his cardiac surgery. The patient i has a known history of coronary artery disease, he has undergone previous PCI, chronic diastolic heart failure with a preserved ejection fraction of 50%, end-stage renal disease on h emodialysis 3 times a week, TTS, insulin-dependent diabetes mellitus, hypertension hyperlipidemia and previous history of obstructive sleep apnea and remote history of smoking and the patient quit smoking back in 1981. I have also seen him in the hospital for previous episodes of staphylococcal sepsis. This was related to a permacath infection. The patient has been having episodes of chest pain started in early September 2023. At that time, his troponins were positive and a catheterization was done on 10/03/2023 that showed 60% stenosis in the mid to distal left main, 50 to 60% stenosis of the mid LAD, 100% stenosis of the circumflex and a 50 to 60% stenosis of the mid RCA. At that point, the patient was advised to undergo cardiac revascularization surgery. The patient underwent a off-pump cardiac bypass x 2 with TIAN to LAD and saphenous vein graft to ramus intermedius. Currently, the patient is in the intensive care unit, intubated on mechanical ventilator. He is a bit restless on propofol which is being weaned off. The patient is intubated, assist-control mode rate of 16, tidal volume of 450, FiO2 has been weaned down to 35% with a PEEP of 5. His chest x-ray in the ICU showed increased pulm vascular marking and congestion. Cardiomegaly. Postthoracotomy changes. The patient has an orotracheal tube was in a good location. The patient also has a Markle-Pb catheter in place. As far as tubes, the patient has a right and a left pleural chest tube and mediastinal chest tube. No evidence of any pneumothorax. The blood gases showed a pH of 7.43 with a pCO2 of 42 and pO2 of 277 and this was on 100% FiO2. His current cardiac output is 5.4 with an index of 2.5. PA pressures of 58/25 mmHg. He is on nitroglycerin drip running at 5 mcg/kg/min. He is also on amiodarone drip running at 1 mg/min. His cardiac rhythm is sinus with occasional pacing. Pulse ox is 98%. Arousable and somewhat rested yeah restless yet he is following simple commands. Urine output is minimal as the patient has end-stage renal disease. On today's evaluation of 10/18/2023, the patient is being seen for a follow-up. The patient remains intubated on the mechanical ventilator. Unable to wean this patient off the mechanical ventilator as the patient has difficulties in performing spontaneous breathing trial and he was becoming restless, agitated, tachypneic and he would develop hemodynamic instability and elevation of the PA pressures. Based on that, the trial was aborted. The plan was discussed with the cardiothoracic surgeon. The plan was to proceed with hemodialysis today and following that, the patient may potentially extubate. As such, hemodialysis was started this morning and the goal is to dialyze the patient and ultrafiltration for a total of 2 L. His current rhythm is sinus with occasional bradycardia, VVI pacing at 40 and he has occasional PVCs. He remains intubated on the mechanical ventilator. He is on assist-control mode rate of 16, tidal volume of 450, FiO2 is down to 35% with a PEEP of 5. Chest x-ray shows mild interstitial markings bilaterally. Tubes are in good location. Orotracheal tube is in good location. There is no evidence of any pneumothorax. He remains on propofol at 30 mcg/kg/min. Insulin drip is on hold and the patient is on nitroglycerin drip at 5 mcg/min. The pulmonary artery pressures are 37/14. Cardiac output is at 4.9 with an index of 2.3. The right and the left pleural chest tube has put out a total of 210 cc since surgery and the mediastinal chest tube is put out 200 cc since surgery. No evidence of any air leak. Hemodynamically stable. No pressors. No fever. On today's evaluation of 10/19/2023, the patient is being seen for a follow-up. The patient was weaned off the mechanical ventilator and the patient was extubated yesterday without any major difficulties. The patient is currently postop day #2. He is sitting up on the chair and is calm and level. He is using the incentive spirometer and is putting approximately 500 cc he is on 2 L of oxygen by nasal cannula with a pulse ox of 99%. The chest x-ray from today shows adequate expansion of both lungs. The patient has a right pleural and left lower chest tube and mediastinal chest tube. The Markle-Pb catheter has been removed on the chest x-ray. No evidence of any pneumothorax. No significant pleural effusion. The output from the chest tubes have been minimal, I noted that the patient's mediastinal chest tube has produced only 500 cc since OR and the pleural chest tubes have produced only 300 cc since OR. Cardiac rhythm is sinus. The patient has a WBC count of 10.2 with a hemoglobin 9.4 and platelet count of 92. BUN is at 31 with a creatinine of 3.86 and his sodium levels at 133 with a potassium level of 4.6. No other significant events overnight. Neurologically intact and communicating and answering questions appropriately. He is on a combination of aspirin and metoprolol 12.5 mg twice daily and Plavix 75 mg p.o. daily. Nitroglycerin drip has been discontinued. The patient is not utilizing insulin drip and he uses an insulin pump on outpatient basis. Currently is only on sliding scale insulin coverage. On today's evaluation of 10/20/2023, the patient is being seen for a follow-up. The patient is doing well. No specific complaints. The patient is undergoing hemodialysis today and the goal of ultrafiltration is around 2 L. The patient remains on oxygen 2 L/min nasal cannula. Follow-up chest rhythm removed and the patient's cardiac rhythm is sinus. The patient remains on insulin drip at 3 units an hour for blood sugar control. Using incentive spirometer. Communicating. Moving all 4 extremities. Chest x-ray was noted and there is essentially some postsurgical atelectatic change in lung base bilaterally. Otherwise no other acute abnormalities have been noted. No evidence of any p neumothorax. The patient is currently postop day #3. Blood work from today shows a WBC count of 8.1, hemoglobin 8.6 and a platelet count of 98. BUN is 59 with a creatinine of 5.5 and a sodium levels at 133. On today's evaluation of 09/2023 the patient is being seen for a follow-up. The patient is awake and alert and sitting up in a chair. Patient has no specific complaints. No focal neurological deficits. The patient is currently on room air oxygen. Cardiac rhythm is sinus. The chest tubes have been removed. Chest x-ray shows some atelectatic change in lung base bilaterally. No respiratory distress. Hemodialysis was done yesterday and a total of 2 L of fluid was removed. The patient remains on aspirin and Plavix. The patient's metoprolol dose has been modified up to 25 mg p.o. twice a day. The patient remains on Zetia. Hydralazine on as-needed basis from blood pressure control. No other significant events. Labs from today shows a white cell count of 6.1 hemoglobin 8.4 and platelet count of 121. Sodium is at 132, BUN is at 53 with a creatinine of 4.6. Potassium is at 4.2. LFTs are within normal limits. The patient is ambulating. Overall condition is stable for now. On today's evaluation on 10/22/2023, the patient is awaiting his hemodialysis. This is a hemodialysis t day for the patient. Has no specific complaints. Surgical wound site is dry clean and intact. He is ambulating. Cardiac rhythm is sinus. No altered mentation. No issues with pain. White cell count is at 5.9 with a hemoglobin of 9 and a platelet count of 147. BUN is at 83 with a creatinine of 5.49 and a sodium levels at 132. Potassium level is at 4.5. The patient has no specific complaints. One of the chest tubes have been removed and the patient was moved out of the intensive care unit yesterday. Objective - Vital Signs Vital signs: Vital Signs Temp 98.3 F 10/22/23 03:55 Pulse 68 10/22/23 09:29 Resp 16 10/22/23 03:55 BP 121/64 10/22/23 03:55 Pulse Ox 96 10/22/23 09:18 FiO2 21 10/22/23 09:18 Intake & Output 10/21/23 10/22/23 10/22/23 18:59 06:59 18:59 Intake Total 696.443 Output Total 0 Balance 696.443 Weight 107.3 kg 101.8 kg Intake: Intake, IV Titration 46.443 Amount Insulin Regular 100 unit 46.443 In Sodium Chloride 0.9% 100 ml @ Per Protocol IV .Q0M JOEY Rx#:[id number] Oral 400 Tube Feeding 250 Output: Urine 0 Other: Voiding Method Urinal Toilet # Voids 1 ABP, PAP, CO, CI - Last Documented Arterial Blood Pressure 98/28 Pulmonary Artery Pressure 36/5 Cardiac Output 6.3 Cardiac Index 3 - Exam CONSTITUTIONAL: Sitting up to the bedside chair in the intensive care unit, appears comfortable, cooperative, no apparent acute distress. Patient is currently on room air oxygen. HEENT: Neck is supple, no JVD, no lymphadenopathy. RESPIRATORY: Lungs sounds essentially clear throughout, diminished to his bilateral bases. Respirations are symmetrical and nonlabored. CARDIOVASCULAR: Regular rhythm and rate. S1 and S2 present, negative for S3, gallop or murmur. Sternum is stable. Palpable peripheral pulses bilaterally. No calf pain or tenderness noted. Heart hugger in place with patient demonstrating appropriate use. Knee-high ENMA hose and sequential compression devices in place to his bilateral lower extremities. GASTROINTESTINAL: Abdomen soft, nontender, nondistended. Active bowel sounds present 4 quadrants. Tolerating diet. Passing flatus. No guarding or rigidity. Bowel movement this a.m. GENITOURINARY: Left arm AV fistula with positive thrill and bruit. Hemodialysis pending this morning. No urine output in the last 8 hours. INTEGUMENTARY: Skin is warm and dry with no evidence of clubbing or cyanosis. Midline sternal incision clean dry and well approximated, covered with dry intact dressing. Left lower extremity EVH sites well approximated without redness or drainage. NEUROLOGIC: Cranial nerves II through XII intact. No focal deficits. MUSKULOSKELETAL: Able to move all extremities, strength equal bilaterally. PSYCHIATRIC: Alert and oriented to person place and time, appropriate affect, intact judgment and insight. INVASIVE LINES AND TUBES: Ventricular epicardial pacemaker wires present, and grounded. - Labs CBC & Chem 7: 10/22/23 11:43 10/22/23 11:43 Labs: Abnormal Lab Results - Last 24 Hours (Table) 10/21/23 10/21/23 10/21/23 Range/Units 11:34 12:22 13:46 POC Glucose (mg/dL) 210 H 174 H 176 H (70-110) mg/dL 10/21/23 10/21/23 10/21/23 Range/Units 15:02 16:07 18:01 POC Glucose (mg/dL) 132 H 126 H 210 H (70-110) mg/dL 10/21/23 10/21/23 10/22/23 Range/Units 18:57 19:54 05:57 POC Glucose (mg/dL) 227 H 251 H 220 H (70-110) mg/dL Assessment and Plan Plan: Assessment Multivessel coronary artery disease with involvement of left main and chronic total occlusion of the circumflex artery. The patient underwent two-vessel bypass surgery with TIAN to LAD and SVG to ramus and the patient is currently postop day # 5. Hemodynamically stable, Postthoracotomy, extubated on 10/18/2023 current densities of actual nasal cannula. All of the chest was admitted moved. Chest x-ray showing postsurgical changes.. No evidence of any pneumothorax. Currently on room air oxygen Chronic diastolic heart failure with preserved LV function Recent history of myocardial infarction secondary to coronary artery disease End-stage renal disease on hemodialysis 3 times a week, TTS and the patient has an AV fistula in his right upper extremity, patient last hemodialysis yesterday and a total of 2 L of fluid was removed Hypertension Hyperlipidemia Insulin-dependent diabetes mellitus and the patient is currently on sliding scale insulin coverage. He has a backup insulin drip if needed. 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 No signs of any respiratory distress Continues incentive spirometer Hemodialysis to be performed today Chest tubes have been removed Clinically and hemodynamically stable. Adequate cardiac output and index and the patient is currently on no pressors Continue aspirin and Plavix and metoprolol dose of 25 mg twice a day Postop hemoglobin is stable Blood sugar management as per medicine Ambulate the patient Vice President Of [employer]s on the case Will continue to follow, the patient is currently out of the intensive care unit.
[2023-10-22 14:09] LABS: Band Neutrophils % 1 %; Eosinophils # (M) 0.18 k/uL (0-0.7); Lymphocytes # (M) 1.12 k/uL (1.0-4.8); Metamyelocytes # (M) 0.06 k/uL (0); Metamyelocytes % 1 %; Monocytes # (M) 0.89 k/uL (0-1.0); Neutrophils % (M) 62 %; Nucleated Red Blood Cells 0 /100 WBC (0-0); Total Cells Counted 200
[2023-10-22 14:10] LABS: Anisocytosis (M) Present
[2023-10-22 15:17] LABS: Glucose,Whole Blood 89 mg/dL (70-110)
[2023-10-22 16:14] LABS: Glucose,Whole Blood 93 mg/dL (70-110)
[2023-10-22 20:18] LABS: Glucose,Whole Blood 125 mg/dL (70-110)
[2023-10-23 01:40] LABS: Glucose,Whole Blood 204 mg/dL (70-110)
[2023-10-23] MEDS: MORPHINE SULFATE 2 MG/ML SYRINGE IVP PRN (01:46)
[2023-10-23] MEDS: PRAMIPEXOLE 0.5 MG TAB PO PRN (02:42)
[2023-10-23 06:07] LABS: Glucose,Whole Blood 188 mg/dL (70-110)
--- NOTE | 2023-10-23 06:49 | XR ---
EXAMINATION TYPE: XR chest 2V DATE OF EXAM: 10/23/2023 COMPARISON: 10/21/2023 HISTORY: Postop CABG TECHNIQUE: Frontal and lateral views of the chest are obtained. FINDINGS: There are postsurgical changes of postop CABG. The cardiac silhouette remains mildly enlarged.. There is mild atelectasis in the left lung base. Right lung is clear. There is no pneumothorax or large pleural effusion. IMPRESSION: Possibly mild left lower lobe atelectasis with no other significant abnormality.
--- NOTE | 2023-10-23 09:11 | P.PN ---
Subjective Progress Note Date: 10/23/23 Principal diagnosis: Coronary artery disease. Past medical history significant for stable angina, coronary artery disease with previous PCI, hypertension, hyperlipidemia, insulin-dependent diabetes mellitus, chronic diastolic heart failure, mild cardiomyopathy with ejection fraction of 50%, end-stage renal disease on hemodialysis Tuesdays, and Saturdays, history of myocardial infarction in 2006, chronic obstructive pulmonary disease, obstructive sleep apnea with no ncompliance of use of his CPAP, peripheral neuropathy, remote history of smoking quit in 1981, osteoarthritis and occasional constipation. POD #6 Off pump coronary artery bypass grafting x 2. Left internal thoracic artery (in-situ) to left anterior descending coronary artery. Saphenous vein from aorta to ramus intermedius, Coronary patch angioplasty to ramus intermedius, Left atrial appendage ligation using #35mm AtriClip, Endoscopic left greater saphenous vein harvest, intraoperative transesophageal echocardiogram performed by anesthesia. Postoperative acute blood loss anemia, expected given hemodilution. The patient was seen and examined at his bedside today October 23, 2023 on the third floor cardiac stepdown unit. He is currently sitting up to the bedside chair, is awake, alert, oriented x 3 and in no acute apparent distress. Denies any complaints of shortness of breath at this time, although is complaining of some surgical type pain, currently rating his pain 4 out of 10 on the pain scale. He has been up ambulating in the cardiac stepdown unit hallway with standby assistance from nursing staff, and tolerating well. Oxygen saturations are 99% on room air and he is achieving 2000 to 2500 mL on his incentive spirometry with encouragement. He underwent hemodialysis yesterday with 2.4 L of ultrafiltration completed. Remote telemetry is showing normal sinus rhythm heart rate 65 bpm. Laboratory results remain pending, chest x-ray results reviewed. Objective - Vital Signs Vital signs: Vital Signs Temp 98.1 F 10/23/23 03:01 Pulse 72 10/23/23 07:58 Resp 20 10/23/23 03:01 BP 117/58 10/23/23 03:01 Pulse Ox 100 10/23/23 07:44 FiO2 21 10/22/23 09:18 Intake & Output 10/22/23 10/23/23 10/23/23 18:59 06:59 18:59 Intake Total 758 257 240 Output Total 2400 Balance -1642 257 240 Weight 101.5 kg Intake: IV 20 Invasive Line 6 20 Oral 358 237 240 Hemodialysis 400 Output: Urine 0 Hemodialysis 2400 Other: Voiding Method Toilet Toilet # Voids 1 ABP, PAP, CO, CI - Last Documented Arterial Blood Pressure 98/28 Pulmonary Artery Pressure 36/5 Cardiac Output 6.3 Cardiac Index 3 - Exam CONSTITUTIONAL: Appears comfortable, cooperative, no apparent acute distress. HEENT: Neck is supple, no JVD, no lymphadenopathy. RESPIRATORY: Lungs sounds essentially clear throughout, diminished to his bilateral bases. Respirations are symmetrical and nonlabored. Currently on room air with oxygen saturations 99%. Able to achieve 6964-0896 mL on his incentive spirometry. Strong cough. CARDIOVASCULAR: Regular rhythm and rate. S1 and S2 present, negative for S3, gallop or murmur. Sternum is stable. Palpable peripheral pulses bilaterally. No calf pain or tenderness noted. Heart hugger in place with patient demonstrating appropriate use. Knee-high ENMA hose and sequential compression devices in place to his bilateral lower extremities. GASTROINTESTINAL: Abdomen soft, nontender, nondistended. Active bowel sounds present 4 quadrants. Tolerating diet. Passing flatus. No guarding or rigidity. GENITOURINARY: Continues to void. Left arm AV fistula with positive thrill and bruit. Hemodialysis completed Sunday, October 22, 2023 with 2.4 L ultrafiltration completed. INTEGUMENTARY: Skin is warm and dry with no evidence of clubbing or cyanosis. Midline sternal incision clean dry and well approximated, covered with dry intact dressing. Left lower extremity EVH sites well approximated without redness or drainage. NEUROLOGIC: Cranial nerves II through XII intact. No focal deficits. MUSKULOSKELETAL: Able to move all extremities, strength equal bilaterally. PSYCHIATRIC: Alert and oriented to person place and time, appropriate affect, intact judgment and insight. - Allied health notes Allied health notes reviewed: nursing - Labs CBC & Chem 7: 10/22/23 11:43 10/22/23 11:43 Labs: Abnormal Lab Results - Last 24 Hours (Table) 10/22/23 10/22/23 10/22/23 Range/Units 11:15 11:43 11:43 RBC 2.72 L (4.30-5.90) m/uL Hgb 9.0 L (13.0-17.5) gm/dL Hct 25.9 L (39.0-53.0) % Plt Count 147 L (150-450) k/uL Metamyelocytes # (Man) 0.06 H (0) k/uL Sodium 132 L (137-145) mmol/L Chloride 93 L (98-107) mmol/L Carbon Dioxide 20 L (22-30) mmol/L BUN 83 H (9-20) mg/dL Creatinine 5.49 H (0.66-1.25) mg/dL Glucose 183 H (74-99) mg/dL POC Glucose (mg/dL) 203 H (70-110) mg/dL Calcium 8.3 L (8.4-10.2) mg/dL Phosphorus 6.7 H (2.5-4.5) mg/dL Magnesium 2.5 H (1.6-2.3) mg/dL 10/22/23 10/23/23 10/23/23 Range/Units 20:16 01:39 06:05 RBC (4.30-5.90) m/uL Hgb (13.0-17.5) gm/dL Hct (39.0-53.0) % Plt Count (150-450) k/uL Metamyelocytes # (Man) (0) k/uL Sodium (137-145) mmol/L Chloride (98-107) mmol/L Carbon Dioxide (22-30) mmol/L BUN (9-20) mg/dL Creatinine (0.66-1.25) mg/dL Glucose (74-99) mg/dL POC Glucose (mg/dL) 125 H 204 H 188 H (70-110) mg/dL Calcium (8.4-10.2) mg/dL Phosphorus (2.5-4.5) mg/dL Magnesium (1.6-2.3) mg/dL - Imaging and Cardiology Chest x-ray: report reviewed, image reviewed Assessment and Plan Assessment: Coronary artery disease with left main disease, 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, status post two-vessel coronary artery bypass grafting Chronic diastolic heart failure Mild cardiomyopathy with an ejection fraction of 50% History of myocardial infarction Chronic kidney disease, on hemodialysis Tuesdays and Saturdays Hypertension Hyperlipidemia, treated cholesterol 100 mg/dL, LDL 32.2 mg/dL Insulin-dependent diabetes mellitus, with a preoperative hemoglobin A1c of 7.8% Chronic fatigue COPD with a preoperative FEV1 78% of predicted value with a base volume of 2.01 Obstructive sleep apnea, noncompliant with CPAP use History of constipation Remote history of nicotine dependence, quit smoking 1982 Neuropathy Orthostatic hypotension Plan: Continue aspirin, home dose of statin, Zetia, Plavix and beta-narcisa with hold parameters. Increase metoprolol tartrate as tolerated. Wean oxygen as tolerated. Bronchodilator management per Dr. Potter's recommendations. Increase activity as tolerated. PT/OT/cardiac rehab following. Will monitor daily labs and chest x-rays. Electrolyte replacement per protocol. Dialysis management per nephrology recommendations. His current hemodialysis schedule is Tuesdays, and Saturdays. Pain control per current as needed regimen. Avoid nephrotoxic agents. Continue to record strict accurate intake and output. Bladder scan every 6 hours and as needed postvoid residual, if greater than 300 mL of urine straight cath. Insulin management per internal medicine, patient should remain on continuous IV insulin for minimum of 48 hours, then may transition to subcutaneous per protocol GI/DVT prophylaxis. Daily weights. Shower daily. Discharge planning is in place, anticipate discharge home within the next 24 hours with home health care. More recommendations to follow based on patient's clinical course. Time with Patient: Greater than 30
--- NOTE | 2023-10-23 11:18 | P.PN ---
Subjective Patient is seen in follow-up for end-stage renal disease. He is maintained on hemodialysis on Tuesday schedule. Status post CABG on October 17, 2023. Has been working with physical therapy. No active complaints. No problems with dialysis yesterday. Vital signs are stable. General: No acute distress. HEENT: Head exam is unremarkable. LUNGS: No audible rhonchi or wheezes. HEART: Rate and Rhythm are regular. ABDOMEN: Nontender. EXTREMITITES: No edema. Objective - Vital Signs Vital signs: Vital Signs Temp 97.7 F 10/23/23 08:45 Pulse 70 10/23/23 08:45 Resp 19 10/23/23 08:45 BP 133/60 10/23/23 08:45 Pulse Ox 100 10/23/23 08:45 FiO2 21 10/22/23 09:18 Intake & Output 10/22/23 10/23/23 10/23/23 18:59 06:59 18:59 Intake Total 758 257 240 Output Total 2400 Balance -1642 257 240 Weight 101.5 kg Intake: IV 20 Invasive Line 6 20 Oral 358 237 240 Hemodialysis 400 Output: Urine 0 Hemodialysis 2400 Other: Voiding Method Toilet Toilet Toilet # Voids 1 ABP, PAP, CO, CI - Last Documented Arterial Blood Pressure 98/28 Pulmonary Artery Pressure 36/5 Cardiac Output 6.3 Cardiac Index 3 - Labs CBC & Chem 7: 10/22/23 11:43 10/22/23 11:43 Labs: Abnormal Lab Results - Last 24 Hours (Table) 10/22/23 10/22/23 10/22/23 Range/Units 11:15 11:43 11:43 RBC 2.72 L (4.30-5.90) m/uL Hgb 9.0 L (13.0-17.5) gm/dL Hct 25.9 L (39.0-53.0) % Plt Count 147 L (150-450) k/uL Metamyelocytes # (Man) 0.06 H (0) k/uL Sodium 132 L (137-145) mmol/L Chloride 93 L (98-107) mmol/L Carbon Dioxide 20 L (22-30) mmol/L BUN 83 H (9-20) mg/dL Creatinine 5.49 H (0.66-1.25) mg/dL Glucose 183 H (74-99) mg/dL POC Glucose (mg/dL) 203 H (70-110) mg/dL Calcium 8.3 L (8.4-10.2) mg/dL Phosphorus 6.7 H (2.5-4.5) mg/dL Magnesium 2.5 H (1.6-2.3) mg/dL 10/22/23 10/23/23 10/23/23 Range/Units 20:16 01:39 06:05 RBC (4.30-5.90) m/uL Hgb (13.0-17.5) gm/dL Hct (39.0-53.0) % Plt Count (150-450) k/uL Metamyelocytes # (Man) (0) k/uL Sodium (137-145) mmol/L Chloride (98-107) mmol/L Carbon Dioxide (22-30) mmol/L BUN (9-20) mg/dL Creatinine (0.66-1.25) mg/dL Glucose (74-99) mg/dL POC Glucose (mg/dL) 125 H 204 H 188 H (70-110) mg/dL Calcium (8.4-10.2) mg/dL Phosphorus (2.5-4.5) mg/dL Magnesium (1.6-2.3) mg/dL Assessment and Plan Plan: Assessment: 1. End-stage renal disease maintained on hemodialysis on Tuesday schedule via left upper extremity AV fistula. 2. Coronary artery disease status post CABG October 17, 2023. 3. Anemia of chronic kidney disease maintained on Aranesp. 4. Volume overload. Improved with ultrafiltration. Plan: Hemodialysis Tuesday.
--- NOTE | 2023-10-23 11:41 | P.PN ---
Subjective Progress Note Date: 10/23/23 Patient seen and examined at bedside. No acute events overnight. Overall doing well. No new complaints. Vital signs reviewed General: No acute distress, appears at stated age Cardiovascular: S1S2 reg, no murmur Lungs: Decreased breath sounds bilateral, no rhonchi, no rales, no accessory mus zoila use Abdominal: Soft, nontender to palpation, no guarding Ext: No gross muscle atrophy, no edema, no contractures Neuro: CN II-XI grossly intact, no focal neuro deficits Psych: Alert, oriented, appropriate affect Assessment/Plan: Patient is a 72-year-old male status post two-vessel coronary artery bypass grafting Compensated diastolic congestive heart failure with ejection fraction 50 to 55% Hypertension Dyslipidemia -Pulmonology and cardiology following -CT surgery note reviewed: Anticipate discharge in the next 24 hours with home health care -Aspirin 325 mg daily -Plavix 75 mg daily -Zetia 10 mg daily -Metoprolol 25 mg PO BID Acute blood loss anemia, anticipated outcome of surgery Thrombocytopenia, anticipated outcome of surgery -No acute bleeding Diabetes mellitus type 2, insulin-dependent -Now on home insulin pump - very brittle diabetic, monitor for hypoglycemia End-stage renal disease on hemodialysis Tuesday//Tuesday -Nephrology note reviewed: Next hemodialysis Tuesday - HD / COPD without exacerbation Obstructive sleep apnea -Continue with scheduled DuoNeb Data Review: Blood sugars range between 89-2 04 Chest x-ray independently interpreted shows no acute process. DVT prophylaxis: Heparin SC Thank you for allowing us to participate in the care of this pleasant patient. Do not hesitate to contact us with questions. Someone can be reached from the [facility] hospitalist group all hours of the day at [phone] or via [employer] [facility] [employer]. Objective - Vital Signs Vital signs: Vital Signs Temp 97.7 F 10/23/23 08:45 Pulse 70 10/23/23 08:45 Resp 19 10/23/23 08:45 BP 133/60 10/23/23 08:45 Pulse Ox 100 10/23/23 08:45 FiO2 21 10/22/23 09:18 Intake & Output 10/22/23 10/23/23 10/23/23 18:59 06:59 18:59 Intake Total 758 257 240 Output Total 2400 Balance -1642 257 240 Weight 101.5 kg Intake: IV 20 Invasive Line 6 20 Oral 358 237 240 Hemodialysis 400 Output: Urine 0 Hemodialysis 2400 Other: Voiding Method Toilet Toilet Toilet # Voids 1 ABP, PAP, CO, CI - Last Documented Arterial Blood Pressure 98/28 Pulmonary Artery Pressure 36/5 Cardiac Output 6.3 Cardiac Index 3 - Labs CBC & Chem 7: 10/22/23 11:43 10/22/23 11:43 Labs: Abnormal Lab Results - Last 24 Hours (Table) 10/22/23 10/22/23 10/22/23 Range/Units 11:43 11:43 20:16 RBC 2.72 L (4.30-5.90) m/uL Hgb 9.0 L (13.0-17.5) gm/dL Hct 25.9 L (39.0-53.0) % Plt Count 147 L (150-450) k/uL Metamyelocytes # (Man) 0.06 H (0) k/uL Sodium 132 L (137-145) mmol/L Chloride 93 L (98-107) mmol/L Carbon Dioxide 20 L (22-30) mmol/L BUN 83 H (9-20) mg/dL Creatinine 5.49 H (0.66-1.25) mg/dL Glucose 183 H (74-99) mg/dL POC Glucose (mg/dL) 125 H (70-110) mg/dL Calcium 8.3 L (8.4-10.2) mg/dL Phosphorus 6.7 H (2.5-4.5) mg/dL Magnesium 2.5 H (1.6-2.3) mg/dL 10/23/23 10/23/23 Range/Units 01:39 06:05 RBC (4.30-5.90) m/uL Hgb (13.0-17.5) gm/dL Hct (39.0-53.0) % Plt Count (150-450) k/uL Metamyelocytes # (Man) (0) k/uL Sodium (137-145) mmol/L Chloride (98-107) mmol/L Carbon Dioxide (22-30) mmol/L BUN (9-20) mg/dL Creatinine (0.66-1.25) mg/dL Glucose (74-99) mg/dL POC Glucose (mg/dL) 204 H 188 H (70-110) mg/dL Calcium (8.4-10.2) mg/dL Phosphorus (2.5-4.5) mg/dL Magnesium (1.6-2.3) mg/dL
[2023-10-23 11:51] LABS: Glucose,Whole Blood 89 mg/dL (70-110)
--- NOTE | 2023-10-23 12:11 | P.PN ---
Subjective Progress Note Date: 10/23/23 This is a 72-year-old male patient was being seen in the intensive care unit following his cardiac surgery. The patient i has a known history of coronary artery disease, he has undergone previous PCI, chronic diastolic heart failure with a preserved ejection fraction of 50%, end-stage renal disease on h emodialysis 3 times a week, TTS, insulin-dependent diabetes mellitus, hypertension hyperlipidemia and previous history of obstructive sleep apnea and remote history of smoking and the patient quit smoking back in 1981. I have also seen him in the hospital for previous episodes of staphylococcal sepsis. This was related to a permacath infection. The patient has been having episodes of chest pain started in early September 2023. At that time, his troponins were positive and a catheterization was done on 10/03/2023 that showed 60% stenosis in the mid to distal left main, 50 to 60% stenosis of the mid LAD, 100% stenosis of the circumflex and a 50 to 60% stenosis of the mid RCA. At that point, the patient was advised to undergo cardiac revascularization surgery. The patient underwent a off-pump cardiac bypass x 2 with TIAN to LAD and saphenous vein graft to ramus intermedius. Currently, the patient is in the intensive care unit, intubated on mechanical ventilator. He is a bit restless on propofol which is being weaned off. The patient is intubated, assist-control mode rate of 16, tidal volume of 450, FiO2 has been weaned down to 35% with a PEEP of 5. His chest x-ray in the ICU showed increased pulm vascular marking and congestion. Cardiomegaly. Postthoracotomy changes. The patient has an orotracheal tube was in a good location. The patient also has a [place]-Pb catheter in place. As far as tubes, the patient has a right and a left pleural chest tube and mediastinal chest tube. No evidence of any pneumothorax. The blood gases showed a pH of 7.43 with a pCO2 of 42 and pO2 of 277 and this was on 100% FiO2. His current cardiac output is 5.4 with an index of 2.5. PA pressures of 58/25 mmHg. He is on nitroglycerin drip running at 5 mcg/kg/min. He is also on amiodarone drip running at 1 mg/min. His cardiac rhythm is sinus with occasional pacing. Pulse ox is 98%. Arousable and somewhat rested yeah restless yet he is following simple commands. Urine output is minimal as the patient has end-stage renal disease. On today's evaluation of 10/18/2023, the patient is being seen for a follow-up. The patient remains intubated on the mechanical ventilator. Unable to wean this patient off the mechanical ventilator as the patient has difficulties in performing spontaneous breathing trial and he was becoming restless, agitated, tachypneic and he would develop hemodynamic instability and elevation of the PA pressures. Based on that, the trial was aborted. The plan was discussed with the cardiothoracic surgeon. The plan was to proceed with hemodialysis today and following that, the patient may potentially extubate. As such, hemodialysis was started this morning and the goal is to dialyze the patient and ultrafiltration for a total of 2 L. His current rhythm is sinus with occasional bradycardia, VVI pacing at 40 and he has occasional PVCs. He remains intubated on the mechanical ventilator. He is on assist-control mode rate of 16, tidal volume of 450, FiO2 is down to 35% with a PEEP of 5. Chest x-ray shows mild interstitial markings bilaterally. Tubes are in good location. Orotracheal tube is in good location. There is no evidence of any pneumothorax. He remains on propofol at 30 mcg/kg/min. Insulin drip is on hold and the patient is on nitroglycerin drip at 5 mcg/min. The pulmonary artery pressures are 37/14. Cardiac output is at 4.9 with an index of 2.3. The right and the left pleural chest tube has put out a total of 210 cc since surgery and the mediastinal chest tube is put out 200 cc since surgery. No evidence of any air leak. Hemodynamically stable. No pressors. No fever. On today's evaluation of 10/19/2023, the patient is being seen for a follow-up. The patient was weaned off the mechanical ventilator and the patient was extubated yesterday without any major difficulties. The patient is currently postop day #2. He is sitting up on the chair and is calm and level. He is using the incentive spirometer and is putting approximately 500 cc he is on 2 L of oxygen by nasal cannula with a pulse ox of 99%. The chest x-ray from today shows adequate expansion of both lungs. The patient has a right pleural and left lower chest tube and mediastinal chest tube. The [place]-Pb catheter has been removed on the chest x-ray. No evidence of any pneumothorax. No significant pleural effusion. The output from the chest tubes have been minimal, I noted that the patient's mediastinal chest tube has produced only 500 cc since OR and the pleural chest tubes have produced only 300 cc since OR. Cardiac rhythm is sinus. The patient has a WBC count of 10.2 with a hemoglobin 9.4 and platelet count of 92. BUN is at 31 with a creatinine of 3.86 and his sodium levels at 133 with a potassium level of 4.6. No other significant events overnight. Neurologically intact and communicating and answering questions appropriately. He is on a combination of aspirin and metoprolol 12.5 mg twice daily and Plavix 75 mg p.o. daily. Nitroglycerin drip has been discontinued. The patient is not utilizing insulin drip and he uses an insulin pump on outpatient basis. Currently is only on sliding scale insulin coverage. On today's evaluation of 10/20/2023, the patient is being seen for a follow-up. The patient is doing well. No specific complaints. The patient is undergoing hemodialysis today and the goal of ultrafiltration is around 2 L. The patient remains on oxygen 2 L/min nasal cannula. Follow-up chest rhythm removed and the patient's cardiac rhythm is sinus. The patient remains on insulin drip at 3 units an hour for blood sugar control. Using incentive spirometer. Communicating. Moving all 4 extremities. Chest x-ray was noted and there is essentially some postsurgical atelectatic change in lung base bilaterally. Otherwise no other acute abnormalities have been noted. No evidence of any p neumothorax. The patient is currently postop day #3. Blood work from today shows a WBC count of 8.1, hemoglobin 8.6 and a platelet count of 98. BUN is 59 with a creatinine of 5.5 and a sodium levels at 133. On today's evaluation of 09/2023 the patient is being seen for a follow-up. The patient is awake and alert and sitting up in a chair. Patient has no specific complaints. No focal neurological deficits. The patient is currently on room air oxygen. Cardiac rhythm is sinus. The chest tubes have been removed. Chest x-ray shows some atelectatic change in lung base bilaterally. No respiratory distress. Hemodialysis was done yesterday and a total of 2 L of fluid was removed. The patient remains on aspirin and Plavix. The patient's metoprolol dose has been modified up to 25 mg p.o. twice a day. The patient remains on Zetia. Hydralazine on as-needed basis from blood pressure control. No other significant events. Labs from today shows a white cell count of 6.1 hemoglobin 8.4 and platelet count of 121. Sodium is at 132, BUN is at 53 with a creatinine of 4.6. Potassium is at 4.2. LFTs are within normal limits. The patient is ambulating. Overall condition is stable for now. On today's evaluation on 10/22/2023, the patient is awaiting his hemodialysis. This is a hemodialysis t day for the patient. Has no specific complaints. Surgical wound site is dry clean and intact. He is ambulating. Cardiac rhythm is sinus. No altered mentation. No issues with pain. White cell count is at 5.9 with a hemoglobin of 9 and a platelet count of 147. BUN is at 83 with a creatinine of 5.49 and a sodium levels at 132. Potassium level is at 4.5. The patient has no specific complaints. One of the chest tubes have been removed and the patient was moved out of the intensive care unit yesterday. On today's evaluation of 10/23/2023, the patient is resting comfortably and the patient is currently on room air oxygen. Hemodialysis was done yesterday. No new complaints otherwise for now. No new labs elevated from today. The patient is currently using the incentive spirometer. No significant events overnight. The patient is in normal sinus rhythm. Pain is under adequate control. He is ambulating. Objective - Vital Signs Vital signs: Vital Signs Temp 97.7 F 10/23/23 08:45 Pulse 70 10/23/23 08:45 Resp 19 10/23/23 08:45 BP 133/60 10/23/23 08:45 Pulse Ox 100 10/23/23 08:45 FiO2 21 10/22/23 09:18 Intake & Output 10/22/23 10/23/23 10/23/23 18:59 06:59 18:59 Intake Total 758 257 240 Output Total 2400 Balance -1642 257 240 Weight 101.5 kg Intake: IV 20 Invasive Line 6 20 Oral 358 237 240 Hemodialysis 400 Output: Urine 0 Hemodialysis 2400 Other: Voiding Method Toilet Toilet Toilet # Voids 1 ABP, PAP, CO, CI - Last Documented Arterial Blood Pressure 98/28 Pulmonary Artery Pressure 36/5 Cardiac Output 6.3 Cardiac Index 3 - Exam CONSTITUTIONAL: Sitting up to the bedside chair in the intensive care unit, appears comfortable, cooperative, no apparent acute distress. Patient is currently on room air oxygen. HEENT: Neck is supple, no JVD, no lymphadenopathy. RESPIRATORY: Lungs sounds essentially clear throughout, diminished to his bilateral bases. Respirations are symmetrical and nonlabored. CARDIOVASCULAR: Regular rhythm and rate. S1 and S2 present, negative for S3, gallop or murmur. Sternum is stable. Palpable peripheral pulses bilaterally. No calf pain or tenderness noted. Heart hugger in place with patient demonstrating appropriate use. Knee-high ENMA hose and sequential compression devices in place to his bilateral lower extremities. GASTROINTESTINAL: Abdomen soft, nontender, nondistended. Active bowel sounds present 4 quadrants. Tolerating diet. Passing flatus. No guarding or rigidity. Bowel movement this a.m. GENITOURINARY: Left arm AV fistula with positive thrill and bruit. Hemodialysis pending this morning. No urine output in the last 8 hours. INTEGUMENTARY: Skin is warm and dry with no evidence of clubbing or cyanosis. Midline sternal incision clean dry and well approximated, covered with dry intact dressing. Left lower extremity EVH sites well approximated without redness or drainage. NEUROLOGIC: Cranial nerves II through XII intact. No focal deficits. MUSKULOSKELETAL: Able to move all extremities, strength equal bilaterally. PSYCHIATRIC: Alert and oriented to person place and time, appropriate affect, intact judgment and insight. INVASIVE LINES AND TUBES: Ventricular epicardial pacemaker wires present, and grounded. - Labs CBC & Chem 7: 10/22/23 11:43 10/22/23 11:43 Labs: Abnormal Lab Results - Last 24 Hours (Table) 10/22/23 10/22/23 10/22/23 Range/Units 11:15 11:43 11:43 RBC 2.72 L (4.30-5.90) m/uL Hgb 9.0 L (13.0-17.5) gm/dL Hct 25.9 L (39.0-53.0) % Plt Count 147 L (150-450) k/uL Metamyelocytes # (Man) 0.06 H (0) k/uL Sodium 132 L (137-145) mmol/L Chloride 93 L (98-107) mmol/L Carbon Dioxide 20 L (22-30) mmol/L BUN 83 H (9-20) mg/dL Creatinine 5.49 H (0.66-1.25) mg/dL Glucose 183 H (74-99) mg/dL POC Glucose (mg/dL) 203 H (70-110) mg/dL Calcium 8.3 L (8.4-10.2) mg/dL Phosphorus 6.7 H (2.5-4.5) mg/dL Magnesium 2.5 H (1.6-2.3) mg/dL 10/22/23 10/23/23 10/23/23 Range/Units 20:16 01:39 06:05 RBC (4.30-5.90) m/uL Hgb (13.0-17.5) gm/dL Hct (39.0-53.0) % Plt Count (150-450) k/uL Metamyelocytes # (Man) (0) k/uL Sodium (137-145) mmol/L Chloride (98-107) mmol/L Carbon Dioxide (22-30) mmol/L BUN (9-20) mg/dL Creatinine (0.66-1.25) mg/dL Glucose (74-99) mg/dL POC Glucose (mg/dL) 125 H 204 H 188 H (70-110) mg/dL Calcium (8.4-10.2) mg/dL Phosphorus (2.5-4.5) mg/dL Magnesium (1.6-2.3) mg/dL Assessment and Plan Plan: Assessment Multivessel coronary artery disease with involvement of left main and chronic total occlusion of the circumflex artery. The patient underwent two-vessel bypass surgery with TIAN to LAD and SVG to ramus and the patient is currently po stop day # 6. Hemodynamically stable, Postthoracotomy, extubated on 10/18/2023 current densities of actual nasal cannula. All of the chest was admitted moved. Chest x-ray showing postsurgical changes.. No evidence of any pneumothorax. Currently on room air oxygen Chronic diastolic heart failure with preserved LV function Recent history of myocardial infarction secondary to coronary artery disease End-stage renal disease on hemodialysis 3 times a week, TTS and the patient has an AV fistula in his right upper extremity Hypertension Hyperlipidemia Insulin-dependent diabetes mellitus and the patient is currently on sliding scale insulin coverage. He is on an insulin pump COPD Obstructive sleep apnea, not significantly compliant to CPAP therapy History of smoking quit back in 1981 Peripheral neuropathy related to diabetes mellitus Orthostatic hypotension History of mild intermittent bronchial asthma currently inactive and stable History of staphylococcal septicemia related to permacath infection back in 2022 Plan Patient is currently on oxygen, clinically stable. No signs of any respiratory distress Continues incentive spirometer Hemodialysis was performed yesterday with a total of 2 L removed Chest tubes have been removed Clinically and hemodynamically stable. Adequate cardiac output and index and the patient is currently on no pressors Continue aspirin and Plavix and metoprolol dose of 25 mg twice a day Postop hemoglobin is stable Blood sugar management as per medicine, currently on insulin pump Ambulate the patient Personal Fitness Manager on the case Will continue to follow, the patient is currently out of the intensive care unit.
--- NOTE | 2023-10-23 14:55 | P.PN ---
Subjective Progress Note Date: 10/23/23 HISTORY OF PRESENT ILLNESS: Patient is pleasant 72-year-old male with history of diabetes mellitus type 2, hypertension, hyperlipidemia, CAD with previous PCI, end-stage renal disease on hemodialysis, chronic diastolic heart failure, remote tobacco abuse, COPD, obstructive sleep apnea, osteoarthritis. Patient follows in the office with myself. He has been having issues with fatigue as well as chest pain and shortness breath. Initially much of his issues were related to heart failure and eventually underwent dialysis with significant amount of fluid removal and had some improvement. Unfortunately he continued to have significant and worsening dyspnea on exertion and repeat heart catheterization that showed progression of left main disease and therefore recommended bypass surgery. Patient underwent successful off-pump CABG on 10/16 with a TIAN to LAD and SVG to ramus as well as left atrial appendage clip. He was placed on amiodarone per protocol however did have some bradycardia intermittently. He was unable to be extubated secondary to fluid retention and did have dialysis this morning with approximately 2 L taken off with better oxygenation and able to be extubated at approximately noon. He currently admits to feeling significantly sore however otherwise no significant chest pain or shortness breath. Blood work today creatinine 4.5, AST 75, ALT 33, hemoglobin 9.7, platelets 103. 10/18 Patient seen and examined. Patient had an arterial line removed today as well as expected to have chest tubes removed. He still does have some positional, musculoskeletal chest pain. He denies any significant shortness breath. He is scheduled to undergo hemodialysis tomorrow. 10/19 Patient seen and examined. Patient had pacemaker wires removed today. He underwent dialysis. He is able to walk the halls and working with physical therapy. Denies any chest pain or pressure. 10/20 Patient seen and examined. Patient denies any chest pain or pressure. Blood pressures been stable. Remains in sinus rhythm. Plan for dialysis tomorrow. 10/22/2023 Patient examined this morning. He has been transferred out of the intensive care unit. Patient is sitting up in the chair this morning. He denies chest pain or pressure. He denies shortness of breath. Vital signs are stable. T elemetry reveals sinus mechanism. 10/23/[address] with PT. Chest incision soreness. No shortness of breath. PHYSICAL EXAM: VITAL SIGNS: Reviewed. GENERAL: Well-developed in no acute distress. NECK: Supple. LUNGS: Respirations even and unlabored. Lungs essentially clear to auscultation bilaterally. HEART: Regular rate and rhythm. S1 and S2 heard. Chest incision without redness , swelling, or drainage. EXTREMITIES: Normal range of motion. No clubbing or cyanosis. Peripheral pulses intact. No lower extremity edema ASSESSMENT: 1. CAD status post previous PCI and most recently status post TIAN to LAD, SVG to ramus 10/16 2. Hypertension 3. Acute on chronic diastolic heart failure 4. End-stage renal disease on hemodialysis 5. Anemia 6. Thrombocytopenia 7. Diabetes mellitus type 2 8. Obstructive sleep apnea PLAN: Continue postoperative management per CT surgery Continue current cardiac medications Increase activity as tolerated Encourage use of incentive spirometer Currently stable from a cardiac standpoint Anticipate discharge home tomorrow 10/23. Further recommendations pending patient course Nurse practitioner note has been reviewed by physician. Signing provider agrees with the documented findings, assessment, and plan of care documented by FRONT END MANAGER as a scribe. Objective - Vital Signs Vital signs: Vital Signs Temp 97.5 F L 10/23/23 12:00 Pulse 61 10/23/23 12:00 Resp 17 10/23/23 12:00 BP 114/69 10/23/23 12:00 Pulse Ox 99 10/23/23 12:00 FiO2 21 10/22/23 09:18 Intake & Output 10/22/23 10/23/23 10/23/23 18:59 06:59 18:59 Intake Total 758 257 780 Output Total 2400 Balance -1642 257 780 Weight 101.5 kg Intake: IV 20 Invasive Line 6 20 Oral 358 237 780 Hemodialysis 400 Output: Urine 0 Hemodialysis 2400 Other: Voiding Method Toilet Toilet Toilet # Voids 1 ABP, PAP, CO, CI - Last Documented Arterial Blood Pressure 98/28 Pulmonary Artery Pressure 36/5 Cardiac Output 6.3 Cardiac Index 3 - Labs CBC & Chem 7: 10/22/23 11:43 10/22/23 11:43 Labs: Abnormal Lab Results - Last 24 Hours (Table) 10/22/23 10/22/23 10/23/23 Range/Units 11:43 20:16 01:39 Metamyelocytes # (Man) 0.06 H (0) k/uL POC Glucose (mg/dL) 125 H 204 H (70-110) mg/dL 10/23/23 Range/Units 06:05 Metamyelocytes # (Man) (0) k/uL POC Glucose (mg/dL) 188 H (70-110) mg/dL
[2023-10-23] MEDS: KETOROLAC 15 MG/ML 1 ML VIAL IVP STA (15:16)
[2023-10-23 16:12] LABS: Glucose,Whole Blood 244 mg/dL (70-110)
[2023-10-23 17:18] LABS: HCT 27.8 % (39.0-53.0); HGB 8.5 gm/dL (13.0-17.5); MCH 31.1 pg (25.0-35.0); MCHC 30.6 g/dL (31.0-37.0); Macrocytosis Slight; Platelet Count 144 k/uL (150-450); RBC 2.74 m/uL (4.30-5.90); RDW 13.7 % (11.5-15.5); WBC 4.3 k/uL (3.8-10.6)
[2023-10-23 17:39] LABS: African American GFR (CKD) 15 (>60 ml/min/1.73 sqM); Anion Gap 17 mmol/L; Blood Urea Nitrogen 61 mg/dL (9-20); Calcium 8.1 mg/dL (8.4-10.2); Carbon Dioxide 22 mmol/L (22-30); Chloride 90 mmol/L (98-107); Glucose 222 mg/dL (74-99); Non-African American GFR(CKD) 13 (>60 ml/min/1.73 sqM); Sodium 129 mmol/L (137-145)
[2023-10-23 18:34] LABS: MCV 101.6 fL (80.0-100.0)
[2023-10-23 20:23] LABS: Glucose,Whole Blood 131 mg/dL (70-110)
[2023-10-24 01:54] LABS: Glucose,Whole Blood 146 mg/dL (70-110)
[2023-10-24 06:12] LABS: Glucose,Whole Blood 176 mg/dL (70-110)
--- NOTE | 2023-10-24 06:58 | XR ---
EXAMINATION TYPE: XR chest 2V DATE OF EXAM: 10/24/2023 COMPARISON: 10/22/2013 INDICATION: Postop CABG TECHNIQUE: Frontal and lateral views of the chest are obtained. FINDINGS: The heart size is normal. The pulmonary vasculature is normal. There is mildly improving left lower lung field infiltrate. IMPRESSION: 1. Improving left lower lobe infiltrate. Mild residual remains.
--- NOTE | 2023-10-24 07:39 | P.PN ---
Subjective Progress Note Date: 10/24/23 Principal diagnosis: Coronary artery disease. Past medical history significant for stable angina, coronary artery disease with previous PCI, hypertension, hyperlipidemia, insulin-dependent diabetes mellitus, chronic diastolic heart failure, mild cardiomyopathy with ejection fraction of 50%, end-stage renal disease on hemodialysis Tuesdays, and Saturdays, history of myocardial infarction in 2006, chronic obstructive pulmonary disease, obstructive sleep apnea with no ncompliance of use of his CPAP, peripheral neuropathy, remote history of smoking quit in 1981, osteoarthritis and occasional constipation. POD #7 Off pump coronary artery bypass grafting x 2. Left internal thoracic artery (in-situ) to left anterior descending coronary artery. Saphenous vein from aorta to ramus intermedius, Coronary patch angioplasty to ramus intermedius, Left atrial appendage ligation using #35mm AtriClip, Endoscopic left greater saphenous vein harvest, intraoperative transesophageal echocardiogram performed by anesthesia. Postoperative acute blood loss anemia, expected given hemodilution. Patient was seen and examined in follow-up today October 24, 2023 at his bedside on the third floor cardiac stepdown unit. He is currently sitting up to the bedside chair, is awake, alert, oriented x 3 and is in no acute apparent distress. He denies any complaints of shortness of breath or pain at this time. Oxygen saturations are 98% on room air and he is achieving 2500 mL on his incentive spirometry with encouragement. Remote telemetry is showing normal sinus rhythm heart rate 63 bpm. He remains hemodynamically stable and is currently on no inotropic or pressor support. He reports he has been up ambulating in the third floor cardiac stepdown unit hallway and tolerating well with standby assistance from nursing and therapy staff. Chest x-ray results reviewed. Laboratory results remain pending. Objective - Vital Signs Vital signs: Vital Signs Temp 98.1 F 10/24/23 04:00 Pulse 63 10/24/23 04:00 Resp 18 10/24/23 04:00 BP 148/64 10/24/23 04:00 Pulse Ox 100 10/24/23 04:00 FiO2 21 10/22/23 09:18 Intake & Output 10/23/23 10/24/23 10/24/23 18:59 06:59 18:59 Intake Total 900 247 Balance 900 247 Weight 101.3 kg Intake: IV 10 Invasive Line 6 10 Oral 900 237 Other: Voiding Method Toilet Toilet # Voids 2 1 ABP, PAP, CO, CI - Last Documented Arterial Blood Pressure 98/28 Pulmonary Artery Pressure 36/5 Cardiac Output 6.3 Cardiac Index 3 - Exam CONSTITUTIONAL: Appears comfortable, cooperative, no apparent acute distress. HEENT: Neck is supple, no JVD, no lymphadenopathy. RESPIRATORY: Lungs sounds essentially clear throughout, diminished to his bilateral bases. Respirations are symmetrical and nonlabored. Currently on room air with oxygen saturations 98%. Able to achieve 2500 mL on his incentive spirometry. Strong cough. CARDIOVASCULAR: Regular rhythm and rate. S1 and S2 present, negative for S3, or gallop. Soft systolic murmur present. Sternum is stable. Palpable peripheral pulses bilaterally. No calf pain or tenderness noted. Heart hugger in place with patient demonstrating appropriate use. Knee-high ENMA hose and sequential compression devices in place to his bilateral lower extremities. GASTROINTESTINAL: Abdomen soft, nontender, nondistended. Active bowel sounds present 4 quadrants. Tolerating diet. Passing flatus. No guarding or rigidity. GENITOURINARY: Continues to void. Left arm AV fistula with positive thrill and bruit. Hemodialysis completed Tuesday, October 22, 2023 with 2.4 L ultrafiltration completed. INTEGUMENTARY: Skin is warm and dry with no evidence of clubbing or cyanosis. Midline sternal incision clean dry and well approximated, covered with dry intact dressing. Left lower extremity EVH sites well approximated without redness or drainage. NEUROLOGIC: Cranial nerves II through XII intact. No focal deficits. MUSKULOSKELETAL: Able to move all extremities, strength equal bilaterally. PSYCHIATRIC: Alert and oriented to person place and time, appropriate affect, intact judgment and insight. - Allied health notes Allied health notes reviewed: nursing - Labs CBC & Chem 7: 10/23/23 16:12 10/23/23 16:12 Labs: Abnormal Lab Results - Last 24 Hours (Table) 10/23/23 10/23/23 10/23/23 Range/Units 16:10 16:12 16:12 RBC 2.74 L (4.30-5.90) m/uL Hgb 8.5 L (13.0-17.5) gm/dL Hct 27.8 L (39.0-53.0) % MCV 101.6 H D (80.0-100.0) fL MCHC 30.6 L (31.0-37.0) g/dL Plt Count 144 L (150-450) k/uL Sodium 129 L (137-145) mmol/L Chloride 90 L (98-107) mmol/L BUN 61 H (9-20) mg/dL Creatinine 4.27 H (0.66-1.25) mg/dL Glucose 222 H (74-99) mg/dL POC Glucose (mg/dL) 244 H (70-110) mg/dL Calcium 8.1 L (8.4-10.2) mg/dL 10/23/23 10/24/23 10/24/23 Range/Units 20:22 01:52 06:11 RBC (4.30-5.90) m/uL Hgb (13.0-17.5) gm/dL Hct (39.0-53.0) % MCV (80.0-100.0) fL MCHC (31.0-37.0) g/dL Plt Count (150-450) k/uL Sodium (137-145) mmol/L Chloride (98-107) mmol/L BUN (9-20) mg/dL Creatinine (0.66-1.25) mg/dL Glucose (74-99) mg/dL POC Glucose (mg/dL) 131 H 146 H 176 H (70-110) mg/dL Calcium (8.4-10.2) mg/dL - Imaging and Cardiology Chest x-ray: report reviewed, image reviewed Assessment and Plan Assessment: Coronary artery disease with left main disease, 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, status post two-vessel coronary artery bypass grafting Chronic diastolic heart failure Mild cardiomyopathy with an ejection fraction of 50% History of myocardial infarction Chronic kidney disease, on hemodialysis Tuesdays and Saturdays Hypertension Hyperlipidemia, treated cholesterol 100 mg/dL, LDL 32.2 mg/dL Insulin-dependent diabetes mellitus, with a preoperative hemoglobin A1c of 7.8% Chronic fatigue COPD with a preoperative FEV1 78% of predicted value with a base volume of 2.01 Obstructive sleep apnea, noncompliant with CPAP use History of constipation Remote history of nicotine dependence, quit smoking 1982 Neuropathy Orthostatic hypotension Plan: Continue aspirin, home dose of statin, Zetia, Plavix and beta-narcisa with hold parameters. Increase metoprolol tartrate as tolerated. Encourage use of incentive spirometry 10 times every hour while awake. Bronchodilator management per Dr. Potter's recommendations. Increase activity as tolerated. PT/OT/cardiac rehab following. Will monitor daily labs and chest x-rays. Electrolyte replacement per protocol. Dialysis management per nephrology recommendations. His current hemodialysis schedule is Tuesdays, and Saturdays. Pain control per current as needed regimen. Avoid nephrotoxic agents. Continue to record strict accurate intake and output. Bladder scan every 6 hours and as needed postvoid residual, if greater than 300 mL of urine straight cath. Insulin management per internal medicine. GI/DVT prophylaxis. Daily weights. Shower daily. Discharge planning is in place, anticipate discharge home within the next 24 hours with home health care. More recommendations to follow based on patient's clinical course. Time with Patient: Greater than 30
[2023-10-24 08:27] VITALS: RESP 20
[2023-10-24 10:41] LABS: African American GFR (CKD) 14 (>60 ml/min/1.73 sqM); Anion Gap 17 mmol/L; Blood Urea Nitrogen 72 mg/dL (9-20); Calcium 8.2 mg/dL (8.4-10.2); Carbon Dioxide 21 mmol/L (22-30); Chloride 92 mmol/L (98-107); Glucose 200 mg/dL (74-99); Non-African American GFR(CKD) 12 (>60 ml/min/1.73 sqM); Potassium 4.5 mmol/L (3.5-5.1); Sodium 130 mmol/L (137-145)
[2023-10-24 11:58] LABS: Glucose,Whole Blood 99 mg/dL (70-110)
--- NOTE | 2023-10-24 12:01 | P.PN ---
Subjective Patient is seen in follow-up for end-stage renal disease. He is maintained on hemodialysis on Tuesday schedule. Status post CABG on October 17, 2023. Has been working with physical therapy. No active complaints. Vital signs are stable. General: No acute distress. HEENT: Head exam is unremarkable. LUNGS: No audible rhonchi or wheezes. HEART: Rate and Rhythm are regular. ABDOMEN: Nontender. EXTREMITITES: No edema. Objective - Vital Signs Vital signs: Vital Signs Temp 97.4 F L 10/24/23 07:52 Pulse 64 10/24/23 11:52 Resp 20 10/24/23 11:37 BP 132/65 10/24/23 11:37 Pulse Ox 100 10/24/23 11:37 FiO2 21 10/22/23 09:18 Intake & Output 10/23/23 10/24/23 10/24/23 18:59 06:59 18:59 Intake Total 900 247 180 Balance 900 247 180 Weight 101.3 kg Intake: IV 10 Invasive Line 6 10 Oral 900 237 180 Other: Voiding Method Toilet Toilet Toilet # Voids 2 1 ABP, PAP, CO, CI - Last Documented Arterial Blood Pressure 98/28 Pulmonary Artery Pressure 36/5 Cardiac Output 6.3 Cardiac Index 3 - Labs CBC & Chem 7: 10/23/23 16:12 10/24/23 09:36 Labs: Abnormal Lab Results - Last 24 Hours (Table) 10/23/23 10/23/23 10/23/23 Range/Units 16:10 16:12 16:12 RBC 2.74 L (4.30-5.90) m/uL Hgb 8.5 L (13.0-17.5) gm/dL Hct 27.8 L (39.0-53.0) % MCV 101.6 H D (80.0-100.0) fL MCHC 30.6 L (31.0-37.0) g/dL Plt Count 144 L (150-450) k/uL Sodium 129 L (137-145) mmol/L Chloride 90 L (98-107) mmol/L Carbon Dioxide (22-30) mmol/L BUN 61 H (9-20) mg/dL Creatinine 4.27 H (0.66-1.25) mg/dL Glucose 222 H (74-99) mg/dL POC Glucose (mg/dL) 244 H (70-110) mg/dL Calcium 8.1 L (8.4-10.2) mg/dL 10/23/23 10/24/23 10/24/23 Range/Units 20:22 01:52 06:11 RBC (4.30-5.90) m/uL Hgb (13.0-17.5) gm/dL Hct (39.0-53.0) % MCV (80.0-100.0) fL MCHC (31.0-37.0) g/dL Plt Count (150-450) k/uL Sodium (137-145) mmol/L Chloride (98-107) mmol/L Carbon Dioxide (22-30) mmol/L BUN (9-20) mg/dL Creatinine (0.66-1.25) mg/dL Glucose (74-99) mg/dL POC Glucose (mg/dL) 131 H 146 H 176 H (70-110) mg/dL Calcium (8.4-10.2) mg/dL 10/24/23 Range/Units 09:36 RBC (4.30-5.90) m/uL Hgb (13.0-17.5) gm/dL Hct (39.0-53.0) % MCV (80.0-100.0) fL MCHC (31.0-37.0) g/dL Plt Count (150-450) k/uL Sodium 130 L (137-145) mmol/L Chloride 92 L (98-107) mmol/L Carbon Dioxide 21 L (22-30) mmol/L BUN 72 H (9-20) mg/dL Creatinine 4.62 H (0.66-1.25) mg/dL Glucose 200 H (74-99) mg/dL POC Glucose (mg/dL) (70-110) mg/dL Calcium 8.2 L (8.4-10.2) mg/dL Assessment and Plan Plan: Assessment: 1. End-stage renal disease maintained on hemodialysis on Tuesday schedule via left upper extremity AV fistula. 2. Coronary artery disease status post CABG October 17, 2023. 3. Anemia of chronic kidney disease maintained on Aranesp. 4. Volume overload. Improved with ultrafiltration. Plan: Hemodialysis Tuesday. Potential discharge home today.
--- NOTE | 2023-10-24 13:20 | P.PN ---
Subjective Progress Note Date: 10/24/23 Patient seen and examined at bedside. No acute events overnight. Overall doing well. No new complaints. Vital signs reviewed General: No acute distress, appears at stated age Cardiovascular: S1S2 reg, no murmur Lungs: Decreased breath sounds bilateral, no rhonchi, no rales, no accessory mus zoila use Abdominal: Soft, nontender to palpation, no guarding Ext: No gross muscle atrophy, no edema, no contractures Neuro: CN II-XI grossly intact, no focal neuro deficits Psych: Alert, oriented, appropriate affect Assessment/Plan: Patient is a 72-year-old male status post two-vessel coronary artery bypass grafting Compensated diastolic congestive heart failure with ejection fraction 50 to 55% Hypertension Dyslipidemia -Pulmonology and cardiology following -CT surgery note reviewed: Anticipate discharge in the next 24 hours with home health care -Aspirin 325 mg daily -Plavix 75 mg daily -Zetia 10 mg daily -Metoprolol 25 mg PO BID Acute blood loss anemia, anticipated outcome of surgery Thrombocytopenia, anticipated outcome of surgery -No acute bleeding Diabetes mellitus type 2, insulin-dependent -Now on home insulin pump - very brittle diabetic, monitor for hypoglycemia End-stage renal disease on hemodialysis Tuesday//Tuesday -Nephrology note reviewed: Next hemodialysis Tuesday - HD / COPD without exacerbation Obstructive sleep apnea -Continue with scheduled DuoNeb Data Review: Blood sugars range between 99-1 76 Chest x-ray independently interpreted shows no acute process. Patient is medically optimized for discharge. Thank you for allowing us to participate in the care of this pleasant patient. Do not hesitate to contact us with questions. Someone can be reached from the [facility] [place] hospitalist group all hours of the day at [phone] or via perfect serve. Objective - Vital Signs Vital signs: Vital Signs Temp 97.4 F L 10/24/23 07:52 Pulse 65 10/24/23 13:15 Resp 20 10/24/23 11:37 BP 132/65 10/24/23 11:37 Pulse Ox 100 10/24/23 11:37 FiO2 21 10/22/23 09:18 Intake & Output 10/23/23 10/24/23 10/24/23 18:59 06:59 18:59 Intake Total 900 247 180 Balance 900 247 180 Weight 101.3 kg Intake: IV 10 Invasive Line 6 10 Oral 900 237 180 Other: Voiding Method Toilet Toilet Toilet # Voids 2 1 ABP, PAP, CO, CI - Last Documented Arterial Blood Pressure 98/28 Pulmonary Artery Pressure 36/5 Cardiac Output 6.3 Cardiac Index 3 - Labs CBC & Chem 7: 10/23/23 16:12 10/24/23 09:36 Labs: Abnormal Lab Results - Last 24 Hours (Table) 10/23/23 10/23/23 10/23/23 Range/Units 16:10 16:12 16:12 RBC 2.74 L (4.30-5.90) m/uL Hgb 8.5 L (13.0-17.5) gm/dL Hct 27.8 L (39.0-53.0) % MCV 101.6 H D (80.0-100.0) fL MCHC 30.6 L (31.0-37.0) g/dL Plt Count 144 L (150-450) k/uL Sodium 129 L (137-145) mmol/L Chloride 90 L (98-107) mmol/L Carbon Dioxide (22-30) mmol/L BUN 61 H (9-20) mg/dL Creatinine 4.27 H (0.66-1.25) mg/dL Glucose 222 H (74-99) mg/dL POC Glucose (mg/dL) 244 H (70-110) mg/dL Calcium 8.1 L (8.4-10.2) mg/dL 10/23/23 10/24/23 10/24/23 Range/Units 20:22 01:52 06:11 RBC (4.30-5.90) m/uL Hgb (13.0-17.5) gm/dL Hct (39.0-53.0) % MCV (80.0-100.0) fL MCHC (31.0-37.0) g/dL Plt Count (150-450) k/uL Sodium (137-145) mmol/L Chloride (98-107) mmol/L Carbon Dioxide (22-30) mmol/L BUN (9-20) mg/dL Creatinine (0.66-1.25) mg/dL Glucose (74-99) mg/dL POC Glucose (mg/dL) 131 H 146 H 176 H (70-110) mg/dL Calcium (8.4-10.2) mg/dL 10/24/23 Range/Units 09:36 RBC (4.30-5.90) m/uL Hgb (13.0-17.5) gm/dL Hct (39.0-53.0) % MCV (80.0-100.0) fL MCHC (31.0-37.0) g/dL Plt Count (150-450) k/uL Sodium 130 L (137-145) mmol/L Chloride 92 L (98-107) mmol/L Carbon Dioxide 21 L (22-30) mmol/L BUN 72 H (9-20) mg/dL Creatinine 4.62 H (0.66-1.25) mg/dL Glucose 200 H (74-99) mg/dL POC Glucose (mg/dL) (70-110) mg/dL Calcium 8.2 L (8.4-10.2) mg/dL
--- NOTE | 2023-10-24 15:16 | P.DS ---
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 Consult: post cardiac surgery Do you want consulting provider notified?: Yes Consult Physician Routine Consulting Provider: Saritha Cadena Consult Reason/Comments: known to you; dialysis Do you want consulting provider notified?: Yes Primary care physician: Marlon Valentino [facility] Course: FINAL DIAGNOSIS: Coronary artery disease with left main disease, 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, status post two-vessel coronary artery bypass grafting Chronic diastolic heart failure Mild cardiomyopathy with an ejection fraction of 50% History of myocardial infarction End-stage renal disease maintained on hemodialysis Tuesdays and Saturdays Hypertension Hyperlipidemia, treated cholesterol 100 mg/dL, LDL 32.2 mg/dL Anemia of chronic kidney disease Insulin-dependent diabetes mellitus, with a preoperative hemoglobin A1c of 7.8% Chronic fatigue COPD with a preoperative FEV1 78% of predicted value with a base volume of 2.01 Obstructive sleep apnea, noncompliant with CPAP use History of constipation Remote history of nicotine dependence, quit smoking 1982 Neuropathy Orthostatic hypotension PRINCIPAL PROCEDURE: 1. Off pump coronary artery bypass grafting x 2. Left internal thoracic artery (in-situ) to left anterior descending coronary artery. Saphenous vein from aorta to ramus intermedius. 2. Coronary patch angioplasty to ramus intermedius 3. Left atrial appendage ligation using #35mm AtriClip 4. Endoscopic left greater saphenous vein harvest 5. Intraoperative transesophageal echocardiogram completed by anesthesia HISTORY OF PRESENT ILLNESS: This is a 72-year-old gentleman who follows on an outpatient basis with Dr. Marlon Valentino for his primary care and with Dr. Shiraz Castle for his cardiology care. Since early September the patient has had complaints of chronic fatigue and episodes of chest pain. The patient also had an admission to the hospital in January 2023 with similar complaints of chest pain and feeling fatigued. At that time he had positive serial troponins x 3 and subsequently underwent a cardiac catheterization on March 11, [address] Castle. The cardiac catheterization at that time showed a 40 to 50% mid to distal left main stenosis, a 50 to 60% mid LAD stenosis, 100% stenosis to his circumflex coronary artery and a 50 to 60% mid RCA stenosis. During the heart catheterization IFR was completed which showed abnormal to the LAD mainly from the proximal and mid LAD, and IFR to his RCA was normal. During this time the patient started hemodialysis, with some improvement in his symptoms. Subsequently, due to his recent symptoms of feeling fatigued and having episodes of chest pain associated with shortness of breath he presented back to Dr. Castle, who recommended the patient undergo a cardiac catheterization which was completed on October 03, 2023. The cardiac catheterization demonstrated a 60% stenosis to his mid to distal left main coronary artery, a 50 to 60% mid left anterior descending coronary artery stenosis, 100% stenosis to his circumflex coronary artery, and a 50 to 60% mid RCA stenosis. IFR was completed to his left anterior descending coronary artery which was abnormal at 0.71. IVUS was completed to the left main coronary artery which showed abnormal with a minimal luminal area of 4.4 mm. Due to the findings on the cardiac catheterization a consult was placed to Dr. Frederic Freeman from cardiothoracic surgery for further evaluation and treatment recommendations including myocardial vascularization surgery. The patient and the patient's family met with Dr. Freeman in the office, Dr. Freeman reviewed all the findings on the cardiac catheterization films, treatment options were discussed including myocardial vascularization surgery, risks and benefits of surgery were discussed and knowing and understanding the risks the patient wished to proceed with the surgical option. STS risk or was calculated and also discussed with the patient by Dr. Freeman. HOSPITAL COURSE: The patient was brought to the hospital on 10/17/23, taken to the preoperative area, was prepared in the usual fashion, and subsequently taken to the operating room where Dr. Freeman performed two-vessel off-pump CABG. Upon completion of surgery the patient was transferred to the cardiovascular intensive care unit where he was recovered and monitored hemodynamically. He was extubated, all lines, tubes, and drips were discontinued when appropriate, and transfer orders were placed for 3 S. cardiac stepdown unit for further monitoring and rehabilitation. His oxygen was titrated down, he continued to work with physical and occupational therapy, he was tolerating oral diet, his pain was controlled, and he was ready to be discharged to home with home care on postoperative day #7. He received written and verbal instruction regarding his medications, activity restrictions, signs and symptoms requiring physician notification, and his follow-up appointments. Plan - Discharge Summary Discharge Rx Participant: No New Discharge Prescriptions: New Metoprolol Tartrate [Lopressor] 25 mg PO BID #60 tab Acetaminophen Tab [Tylenol] 1,000 mg PO Q6HR PRN tab PRN Reason: Fever And/ Or Pain Clopidogrel [Plavix] 75 mg PO DAILY #30 tab Pantoprazole [Protonix] 40 mg PO AC-BRKFST #30 tab Continue Ezetimibe [Zetia] 10 mg PO QAM Ferrous Sulfate [Iron (65 MG Elemental)] 325 mg PO DAILY Insulin Aspart (For Pump) [NovoLOG (For Pump)] 0.01 unit SQ-PUMP CONTINUOUS Pramipexole [Mirapex] 0.5 mg PO BID PRN PRN Reason: Restless legs Albuterol Inhaler [Ventolin Hfa Inhaler] 2 puff INHALATION RT-Q4H PRN PRN Reason: Shortness Of Breath Glucagon Emergency Kit 1 mg IM ONCE PRN PRN Reason: Hypoglycemia Escitalopram [Lexapro] 10 mg PO DAILY Rosuvastatin [Crestor] 10 mg PO HS Cetirizine HCl [Zyrtec] 10 mg PO DAILY Calcium Carbonate [Tums] 1,000 mg PO AC-TID Aspirin EC [Ecotrin Low Dose] 81 mg PO DAILY Tamsulosin [Flomax] 0.4 mg PO HS ALPRAZolam [Xanax] 0.5 mg PO HS PRN PRN Reason: Severe Anxiety Cholecalciferol [Vitamin D3 (25 Mcg = 1000 Iu)] 50 mcg PO DAILY Folic Acid/Vit B Complex and C [Nephro-Pooja Tablet] 0.8 mg PO DAILY Torsemide [Demadex] 40 mg PO SUMOWEFR Discontinued Nitroglycerin Sl Tabs [Nitrostat] 0.4 mg SL Q5M PRN PRN Reason: Chest Pain Ranolazine [Ranexa] 500 mg PO Q12HR Isosorbide Mononitrate [Isosorbide Mononitrate ER] 30 mg PO DAILY Discharge Medication List Ezetimibe [Zetia] 10 mg PO QAM 05/19/16 [History] Ferrous Sulfate [Iron (65 MG Elemental)] 325 mg PO DAILY 05/19/16 [History] Insulin Aspart (For Pump) [NovoLOG (For Pump)] 0.01 unit SQ-PUMP CONTINUOUS 05/28/18 [History] Pramipexole [Mirapex] 0.5 mg PO BID PRN 05/02/19 [History] Albuterol Inhaler [Ventolin Hfa Inhaler] 2 puff INHALATION RT-Q4H PRN 08/10/21 [History] Aspirin EC [Ecotrin Low Dose] 81 mg PO DAILY 02/21/22 [History] Glucagon Emergency Kit 1 mg IM ONCE PRN 02/21/22 [History] Escitalopram [Lexapro] 10 mg PO DAILY 01/01/23 [History] ALPRAZolam [Xanax] 0.5 mg PO HS PRN 06/17/23 [History] Cholecalciferol [Vitamin D3 (25 Mcg = 1000 Iu)] 50 mcg PO DAILY 06/17/23 [History] Rosuvastatin [Crestor] 10 mg PO HS 06/17/23 [History] Tamsulosin [Flomax] 0.4 mg PO HS 06/17/23 [History] Cetirizine HCl [Zyrtec] 10 mg PO DAILY 09/22/23 [History] Folic Acid/Vit B Complex and C [Nephro-Pooja Tablet] 0.8 mg PO DAILY 09/22/23 [History] Torsemide [Demadex] 40 mg PO SUMOWEFR 09/22/23 [History] Calcium Carbonate [Tums] 1,000 mg PO AC-TID 09/28/23 [History] Acetaminophen Tab [Tylenol] 1,000 mg PO Q6HR PRN tab 10/24/23 [Rx] Clopidogrel [Plavix] 75 mg PO DAILY #30 tab 10/24/23 [Rx] Metoprolol Tartrate [Lopressor] 25 mg PO BID #60 tab 10/24/23 [Rx] Pantoprazole [Protonix] 40 mg PO AC-BRKFST #30 tab 10/24/23 [Rx] Follow up Appointment(s)/Referral(s): Gila Subramanian, DOMINGO [Nurse Practitioner] - 11/01/23 11:00 am [facility]hab [facility],Cardiac [NON-STAFF] - 4 Weeks Shiraz Castle DO [STAFF PHYSICIAN] - 11/11/23 11:15 am Marlon Valentino DO [Primary Care Provider] - 10/26/23 2:00 pm [facility] [NON-STAFF] - 1 Week ([facility] will call you to arrange a visit) Frederic Freeman MD [STAFF PHYSICIAN] - 11/14/23 2:00 pm Leilani Potter MD [STAFF PHYSICIAN] - 11/15/23 10:15 am Activity/Diet/Wound Care/Special Instructions: DISCHARGE INSTRUCTIONS: 1. No driving for 4 weeks, or until physician gives their ok. 2. The patient should sleep in their own bed, no medical bed needed. 3. Stairs are not an issue. If the bedroom is upstairs, it is advised that the patient go up at night and down in the morning for the first week. Go slowly, using handrail and take 1 step at a time. 4. ENMA hose are to be worn for 30 days post surgery or until physician discontinues. 5. Heart hugger is to be worn 100% of the time until physician discontinues.(except when showering) 6. No lifting, pushing, or pulling more than 10 pounds for 12 weeks. The physician will advise of any restriction changes. 7. The patient is expected to continue the prescribed walking program. 8. Continue pain control per as needed orders. 9. Continue with incentive spirometry and splinting/heart hugger until otherwi se directed by the physician. 10. Must shower daily using liquid antibacterial soap 11. Routine sternal incision care. No powders, lotions, ointments on incisions. No dressings are necessary on incisions unless they are draining. Dermabond tape is to remain on sternal incision until surgeon follow-up. 12. Please call surgeon/PROCEDURE TECH for temp greater than 101 F or purulent drainage from incisions. 13. You should weigh yourself daily, record and bring log with you to follow up appointments. 14. All prescriptions given by surgeon for 30 days. Refills need to be filled through internal control specialist/primary care physician. 15. A Red armband has been placed on the patient. It should be worn for 30 days post discharge from surgery and will be removed by the cardiac surgeons. If an ER visit is necessary, please make sure the number on the Red armband is called before going to ER. 16. You have been referred to and are expected to begin Cardiac Rehab in approximately 4-6 weeks. 17. Quitting smoking is the most important step you can take to improve your health. For additional information and assistance to quit smoking, please call the [place] tobacco quit line (4-099-DXNF-NOW/ ) or online: [email or web address] SERVICES TO PROVIDE: RN SKILLED HOME CARE SERVICES FOR POST-OP SURGICAL PATIENTS WITH THE FOLLOWING: Coronary Artery Bypass Surgery (CABG), Mitral Valve Replacement/Repair ( MVR), Aortic Valve Replacement/Repair (AVR) RN TO CONTINUE EDUCATION FROM ``ROAD TO A HEALTH HEART PATIENT EDUCATION MANUAL (GIVEN TO PATIENT IN THE HOSPITAL) MEDICATION RECONCILIATION WITH EDUCATION NEEDED ON FIRST HOME VISIT EMPHASIZE IMPORTANCE OF WEARING BREAST SUPPORT/HEART HUGGER ENCOURAGE USE OF INCENTIVE SPIROMETER 10 X EVERY HOUR WHILE AWAKE ENCOURAGE UTILIZATION OF LOWER EXTREMITY COMPRESSION STOCKINGS/ENMA HOSE and ELEVATE LEGS ABOVE LEVEL OF HEART WHILE AT REST. ENCOURAGE AMBULATION 3-5x/day INCREASING TOLERATES, WHILE AVOIDING EXTREMES IN TEMPERATURE FREQUENCY: RN TO OPEN THE PATIENT WITHIN 24 HOURS OF DISCHARGE FROM THE HOSPITAL WITH TELEHEALTH INSTALLED AT [facility] [place], RN TO VISIT 2-3 X A WEEK FOR 4 WEEKS ESTABLISHED BY PATIENT NEEDS. LABORATORY: CBC, CMP TO BE DRAWN ON THE THIRD DAY HOME, (RAN STAT) FAX RESULTS TO [phone]. TELEHEALTH PARAMETERS: WEIGHT: NOTIFY MD OF WEIGHT GAIN OF 2 LBS IN 24 HOURS OR 5 LBS IN ONE WEEK HR: NOTIFY MD OF HR <55 BPM OR HR>100 BPM BP: NOTIFY MD IF BP <90/55 OR BP>140/100 O2 SAT: NOTIFY MD IF PO2<93% ON ROOM AIR SEND TELEHEALTH REPORT TO [employer] MAN AND CARDIOVASCULAR SURGEON THE FIRST WEEK OF CARE AND THEN BI-WEEKLY. PLEASE ADDITIONALLY COMMUNICATE ANY ABNORMALS AND NEW FINDINGS TO THE SURGEONS OFFICE. Discharge Disposition: HOME WITH HOME HEALTH SERVICES
--- NOTE | 2023-10-24 15:27 | P.PN ---
Subjective Progress Note Date: 10/24/23 Principal diagnosis: Multivessel coronary artery disease with involvement of left main and chronic total occlusion of the circumflex artery. The patient underwent two-vessel bypa ss surgery with TIAN to LAD and SVG to ramus and the patient is currently postop day #7 This is a 72-year-old male patient was being seen in the intensive care unit following his cardiac surgery. The patient i has a known history of coronary artery disease, he has undergone previous PCI, chronic diastolic heart failure with a preserved ejection fraction of 50%, end-stage renal disease on hemodi alysis 3 times a week, TTS, insulin-dependent diabetes mellitus, hypertension hyperlipidemia and previous history of obstructive sleep apnea and remote history of smoking and the patient quit smoking back in 1981. I have also seen him in the hospital for previous episodes of staphylococcal sepsis. This was related to a permacath infection. The patient has been having episodes of chest pain started in early September 2023. At that time, his troponins were positive and a catheterization was done on 10/03/2023 that showed 60% stenosis in the mid to distal left main, 50 to 60% stenosis of the mid LAD, 100% stenosis of the circumflex and a 50 to 60% stenosis of the mid RCA. At that point, the patient was advised to undergo cardiac revascularization surgery. The patient underwent a off-pump cardiac bypass x 2 with TIAN to LAD and saphenous vein graft to ramus intermedius. Currently, the patient is in the intensive care unit, intubated on mechanical ventilator. He is a bit restless on propofol which is being weaned off. The patient is intubated, assist-control mode rate of 16, tidal volume of 450, FiO2 has been weaned down to 35% with a PEEP of 5. His chest x-ray in the ICU showed increased pulm vascular marking and congestion. Cardiomegaly. Postthoracotomy changes. The patient has an orotracheal tube was in a good location. The patient also has a Calvin-Pb catheter in place. As far as tubes, the patient has a right and a left pleural chest tube and mediastinal chest tu be. No evidence of any pneumothorax. The blood gases showed a pH of 7.43 with a pCO2 of 42 and pO2 of 277 and this was on 100% FiO2. His current cardiac output is 5.4 with an index of 2.5. PA pressures of 58/25 mmHg. He is on nitroglycerin drip running at 5 mcg/kg/min. He is also on amiodarone drip running at 1 mg/min. His cardiac rhythm is sinus with occasional pacing. Pulse ox is 98%. Arousable and somewhat rested yeah restless yet he is following simple commands. Urine output is minimal as the patient has end-stage renal disease. On today's evaluation of 10/18/2023, the patient is being seen for a follow-up. The patient remains intubated on the mechanical ventilator. Unable to wean this patient off the mechanical ventilator as the patient has difficulties in performing spontaneous breathing trial and he was becoming restless, agitated, tachypneic and he would develop hemodynamic instability and elevation of the PA pressures. Based on that, the trial was aborted. The plan was discussed with the cardiothoracic surgeon. The plan was to proceed with hemodialysis today and following that, the patient may potentially extubate. As such, hemodialysis was started this morning and the goal is to dialyze the patient and ultrafiltration for a total of 2 L. His current rhythm is sinus with occasional bradycardia, VVI pacing at 40 and he has occasional PVCs. He remains intubated on the mechanical ventilator. He is on assist-control mode rate of 16, tidal volume of 450, FiO2 is down to 35% with a PEEP of 5. Chest x-ray shows mild interstitial markings bilaterally. Tubes are in good location. Orotracheal tube is in good location. There is no evidence of any pneumothorax. He remains on propofol at 30 mcg/kg/min. Insulin drip is on hold and the patient is on nitroglycerin drip at 5 mcg/min. The pulmonary artery pressures are 37/14. Cardiac output is at 4.9 with an index of 2.3. The right and the left pleural chest tube has put out a total of 210 cc since surgery and the mediastinal chest tube is put out 200 cc since surgery. No evidence of any air leak. Hemodynamically stable. No pressors. No fever. On today's evaluation of 10/19/2023, the patient is being seen for a follow-up. The patient was weaned off the mechanical ventilator and the patient was extubated yesterday without any major difficulties. The patient is currently postop day #2. He is sitting up on the chair and is calm and level. He is using the incentive spirometer and is putting approximately 500 cc he is on 2 L of oxygen by nasal cannula with a pulse ox of 99%. The chest x-ray from today shows adequate expansion of both lungs. The patient has a right pleural and left lower chest tube and mediastinal chest tube. The Calvin-Pb catheter has been removed on the chest x-ray. No evidence of any pneumothorax. No significant pleural effusion. The output from the chest tubes have been minimal, I noted that the patient's mediastinal chest tube has produced only 500 cc since OR and the pleural chest tubes have produced only 300 cc since OR. Cardiac rhythm is sinus. The patient has a WBC count of 10.2 with a hemoglobin 9.4 and platelet count of 92. BUN is at 31 with a creatinine of 3.86 and his sodium levels at 133 with a potassium level of 4.6. No other significant events overnight. Neurologically intact and communicating and answering questions appropriately. He is on a combination of aspirin and metoprolol 12.5 mg twice daily and Plavix 75 mg p.o. daily. Nitroglycerin drip has been discontinued. The patient is not utilizing insulin drip and he uses an insulin pump on outpatient basis. Currently is only on sliding scale insulin coverage. On today's evaluation of 10/20/2023, the patient is being seen for a follow-up. The patient is doing well. No specific complaints. The patient is undergoing hemodialysis today and the goal of ultrafiltration is around 2 L. The patient remains on oxygen 2 L/min nasal cannula. Follow-up chest rhythm removed and the patient's cardiac rhythm is sinus. The patient remains on insulin drip at 3 units an hour for blood sugar control. Using incentive spirometer. Communicating. Moving all 4 extremities. Chest x-ray was noted and there is essentially some postsurgical atelectatic change in lung base bilaterally. Otherwise no other acute abnormalities have been noted. No evidence of any pneumothorax. The patient is currently postop day #3. Blood work from today shows a WBC count of 8.1, hemoglobin 8.6 and a platelet count of 98. BUN is 59 with a creatinine of 5.5 and a sodium levels at 133. On today's evaluation of 09/2023 the patient is being seen for a follow-up. The patient is awake and alert and sitting up in a chair. Patient has no specific complaints. No focal neurological deficits. The patient is currently on room air oxygen. Cardiac rhythm is sinus. The chest tubes have been removed. Chest x-ray shows some atelectatic change in lung base bilaterally. No respiratory distress. Hemodialysis was done yesterday and a total of 2 L of fluid was removed. The patient remains on aspirin and Plavix. The patient's metoprolol dose has been modified up to 25 mg p.o. twice a day. The patient remains on Zetia. Hydralazine on as-needed basis from blood pressure control. No other significant events. Labs from today shows a white cell count of 6.1 hemoglobin 8.4 and platelet count of 121. Sodium is at 132, BUN is at 53 with a creatinine of 4.6. Potassium is at 4.2. LFTs are within normal limits. The patient is ambulating. Overall condition is stable for now. On today's evaluation on 10/22/2023, the patient is awaiting his hemodialysis. This is a hemodialysis t day for the patient. Has no specific complaints. Surgical wound site is dry clean and intact. He is ambulating. Cardiac rhythm is sinus. No altered mentation. No issues with pain. White cell count is at 5.9 with a hemoglobin of 9 and a platelet count of 147. BUN is at 83 with a cr eatinine of 5.49 and a sodium levels at 132. Potassium level is at 4.5. The patient has no specific complaints. One of the chest tubes have been removed and the patient was moved out of the intensive care unit yesterday. On today's evaluation of 10/23/2023, the patient is resting comfortably and the patient is currently on room air oxygen. Hemodialysis was done yesterday. No new complaints otherwise for now. No new labs elevated from today. The patient is currently using the incentive spirometer. No significant events overnight. The patient is in normal sinus rhythm. Pain is under adequate control. He is ambulating. Patient was reevaluated today on 10/24/2023, patient is doing well, asymptomatic, being considered for discharge home today. Patient denies any specific complaints, no shortness of breath, doing well with incentive spirometry achieving over 3 L. Labs were noted to be unremarkable. Except his creatinine 4.62 but patient does have end-stage renal disease on hemodialysis 3 times per week. Objective - Vital Signs Vital signs: Vital Signs Temp 97.4 F L 10/24/23 07:52 Pulse 65 10/24/23 13:15 Resp 20 10/24/23 11:37 BP 132/65 10/24/23 11:37 Pulse Ox 100 10/24/23 11:37 FiO2 21 10/22/23 09:18 Intake & Output 10/23/23 10/24/23 10/24/23 18:59 06:59 18:59 Intake Total 900 247 360 Balance 900 247 360 Weight 101.3 kg Intake: IV 10 Invasive Line 6 10 Oral 900 237 360 Other: Voiding Method Toilet Toilet Toilet # Voids 2 1 ABP, PAP, CO, CI - Last Documented Arterial Blood Pressure 98/28 Pulmonary Artery Pressure 36/5 Cardiac Output 6.3 Cardiac Index 3 - Exam CONSTITUTIONAL: Reveals 72-year-old white male in no distress HEENT: Neck is supple, no JVD, no lymphadenopathy. RESPIRATORY: Symmetrical expansion clear breath sound bilaterally no rhonchi no wheezes CARDIOVASCULAR: Regular rhythm and rate. S1 and S2 present, negative for S3, gallop or murmur. Sternum is stable. GASTROINTESTINAL: Soft nontender no megaly no rebound no guarding. GENITOURINARY: Left arm AV fistula with positive thrill and bruit. Hemodialysis pending this morning. INTEGUMENTARY: Skin is warm and dry with no evidence of clubbing or cyanosis. Midline sternal incision clean dry and well approximated, covered with dry intact dressing. Left lower extremity EVH sites well approximated without redness or drainage. NEUROLOGIC: Alert oriented x 3 no gross focal deficit MUSKULOSKELETAL: No deformities normal range of motion PSYCHIATRIC: Normal mood affect and no mental status examination - Labs CBC & Chem 7: 10/23/23 16:12 10/24/23 09:36 Labs: Abnormal Lab Results - Last 24 Hours (Table) 10/23/23 10/23/23 10/23/23 Range/Units 16:10 16:12 16:12 RBC 2.74 L (4.30-5.90) m/uL Hgb 8.5 L (13.0-17.5) gm/dL Hct 27.8 L (39.0-53.0) % MCV 101.6 H D (80.0-100.0) fL MCHC 30.6 L (31.0-37.0) g/dL Plt Count 144 L (150-450) k/uL Sodium 129 L (137-145) mmol/L Chloride 90 L (98-107) mmol/L Carbon Dioxide (22-30) mmol/L BUN 61 H (9-20) mg/dL Creatinine 4.27 H (0.66-1.25) mg/dL Glucose 222 H (74-99) mg/dL POC Glucose (mg/dL) 244 H (70-110) mg/dL Calcium 8.1 L (8.4-10.2) mg/dL 10/23/23 10/24/23 10/24/23 Range/Units 20:22 01:52 06:11 RBC (4.30-5.90) m/uL Hgb (13.0-17.5) gm/dL Hct (39.0-53.0) % MCV (80.0-100.0) fL MCHC (31.0-37.0) g/dL Plt Count (150-450) k/uL Sodium (137-145) mmol/L Chloride (98-107) mmol/L Carbon Dioxide (22-30) mmol/L BUN (9-20) mg/dL Creatinine (0.66-1.25) mg/dL Glucose (74-99) mg/dL POC Glucose (mg/dL) 131 H 146 H 176 H (70-110) mg/dL Calcium (8.4-10.2) mg/dL 10/24/23 Range/Units 09:36 RBC (4.30-5.90) m/uL Hgb (13.0-17.5) gm/dL Hct (39.0-53.0) % MCV (80.0-100.0) fL MCHC (31.0-37.0) g/dL Plt Count (150-450) k/uL Sodium 130 L (137-145) mmol/L Chloride 92 L (98-107) mmol/L Carbon Dioxide 21 L (22-30) mmol/L BUN 72 H (9-20) mg/dL Creatinine 4.62 H (0.66-1.25) mg/dL Glucose 200 H (74-99) mg/dL POC Glucose (mg/dL) (70-110) mg/dL Calcium 8.2 L (8.4-10.2) mg/dL Assessment and Plan Assessment: Pression: Multivessel coronary artery disease with involvement of left main and chronic total occlusion of the circumflex artery. The patient underwent two-vessel bypass surgery with TIAN to LAD and SVG to ramus and the patient is currently po stop day #7 hemodynamically stable, Chronic diastolic heart failure with preserved LV function Recent history of myocardial infarction secondary to coronary artery disease End-stage renal disease on hemodialysis 3 times a week, Hyperlipidemia Insulin-dependent diabetes mellitus and the patient is currently on sliding scale insulin coverage. He is on an insulin pump COPD, presently inactive Obstructive sleep apnea, not significantly compliant to CPAP therapy Peripheral neuropathy related to diabetes mellitus Orthostatic hypotension History of mild intermittent bronchial asthma currently inactive and stable History of staphylococcal septicemia related to permacath infection back in 2022 Recommendation: Continue incentive spirometry continue present cardiac meds Agree with discharge planning Follow-up on outpatient basis Time with Patient: Less than 30
[2023-10-24 16:19] VITALS: BP 139/60; PULSE 70; TEMP 97.6
--- NOTE | 2023-10-24 23:19 | PN ---
PROGRESS NOTE SUBJECTIVE: Mr. Phan Luciano underwent aortocoronary bypass surgery. He is doing well. Ambulating without any symptoms. He is in sinus rhythm. OBJECTIVE: CARDIAC: S1, S2 heard normally. Short systolic murmur noted. LUNGS: Revealed fairly decent air entry. ABDOMEN: Unremarkable. LOWER EXTREMITIES: Unremarkable. 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 MMODL / IJN: [id number] /
--- NOTE | 2023-10-25 12:29 | CDI ---
Documentation Clarification Form Date: 10/25/2023 11:59:54 AM From: Alexa Aponte Phone: Admit Date: 10/17/2023 05:35:00 AM Patient Name: Phan Luciano Visit Number: [id number] Discharge Date: 10/24/2023 04:48:00 PM ATTENTION: The Clinical Documentation Specialists (CDI) and [facility] Coding Staff appreciate your assistance in clarifying documentation. Please respond to the clarification below the line at the bottom and electronically sign. The CDI & [facility] Coding staff will review the response and follow-up if needed. Please note: Queries are made part of the Legal Health Record. If you have any questions, please contact the author of this message via ITS. Dr. Shiraz Castle Ventricular epicardial pacemaker wires present, connected to generator is documented per Progress Note 10/17. Additional insertion clarification regarding the procedure is requested. History/Risk factors: 72yo M, CAD wstable angina, ESRDon HD w anemia, HTN, HLD, IDDMII w pump, COPD, ACDHF, JEN, Thrombocytopenia, ABLA, CM, Orthostatic hypotension, first degree heart block Pre-Operative Diagnosis: CAD wstable angina Postoperative Diagnosis: CAD wstable angina sp CABG x2 Clinical Indicators: Significant left maincoronary artery disease, proximal LAD disease and non-significant disease in the RCA. Endarterectomyplaquefrom ramus intermedius sent to Path Treatment: OffpumpCABGx 2. BAIRON (in-situ) to LAD coronary artery. Saphenous vein from aorta to ramus intermedius. Coronary patchangioplastyto ramus intermedius. LAAligationusing #35mm AtriClip. Endoscopic left greater saphenous vein harvest. KAREEM Per Progress Note 3: We willremovehis ventricular epicardial pacemaker wires today, bedrest for 1hour post pacemaker wireremoval. Please clarify the following: [ ] Pacemaker was present prior to CABG [ X ] Pacemaker was inserted for the intended procedure ____Send to surgeons in the future. Epicardial pacemaker placement is a routine part of surgery and I should not be receiving this query [ ] removed 3 days after leaving OR due to (please insert Post Op complication, if applicable) Template Last Revised: September 2020) MTDD
== END 2023-10-24 16:48 | disposition home health service (06) | DRG 235 ==
LOC: 2ORMAIN 05:35 → 2SICU 12:33 → 3SCARD 10-21 17:47
PROVIDERS: ADMIT Thoracic Surgery (Cardiothoracic Vascular Surgery); ATTEND Thoracic Surgery (Cardiothoracic Vascular Surgery)
PROC: 02C00ZZ Extirpation of Matter from Coronary Artery, One Artery, Open Approach (ICD-10-PCS; 2023-10-17)
PROC: 02L70CK Occlusion of Left Atrial Appendage with Extraluminal Device, Open Approach (ICD-10-PCS; 2023-10-17)
PROC: B24BZZ4 Ultrasonography of Heart with Aorta, Transesophageal (ICD-10-PCS; 2023-10-17)
PROC: 4A0305C Measurement of Arterial Flow, Coronary, Open Approach (ICD-10-PCS; 2023-10-17)
PROC: 5A1223Z Performance of Cardiac Pacing, Continuous (ICD-10-PCS; 2023-10-17)
PROC: 02100ZC Bypass Coronary Artery, One Artery from Thoracic Artery, Open Approach (ICD-10-PCS; principal; 2023-10-17 08:00)
PROC: 021009W Bypass Coronary Artery, One Artery from Aorta with Autologous Venous Tissue, Open Approach (ICD-10-PCS; 2023-10-17 08:00)
PROC: 06BQ4ZZ Excision of Left Saphenous Vein, Percutaneous Endoscopic Approach (ICD-10-PCS; 2023-10-17 08:00)
PROC: 5A1D70Z Performance of Urinary Filtration, Intermittent, Less than 6 Hours Per Day (ICD-10-PCS; 2023-10-18)
DX: I25.118 Atherosclerotic heart disease of native coronary artery with other forms of angina pectoris (principal); I50.33 Acute on chronic diastolic (congestive) heart failure; N18.6 End stage renal disease; I13.2 Hypertensive heart and chronic kidney disease with heart failure and with stage 5 chronic kidney disease, or end stage renal disease; D62 Acute posthemorrhagic anemia; R44.3 Hallucinations, unspecified; I42.9 Cardiomyopathy, unspecified; E11.42 Type 2 diabetes mellitus with diabetic polyneuropathy; E11.22 Type 2 diabetes mellitus with diabetic chronic kidney disease; Z99.2 Dependence on renal dialysis; Z79.4 Long term (current) use of insulin; R00.1 Bradycardia, unspecified; D63.1 Anemia in chronic kidney disease; D69.59 Other secondary thrombocytopenia; I25.82 Chronic total occlusion of coronary artery; E78.5 Hyperlipidemia, unspecified; J44.89 Other specified chronic obstructive pulmonary disease; R53.82 Chronic fatigue, unspecified; G47.33 Obstructive sleep apnea (adult) (pediatric); I95.1 Orthostatic hypotension; I44.0 Atrioventricular block, first degree; H91.90 Unspecified hearing loss, unspecified ear; Z96.41 Presence of insulin pump (external) (internal); Z91.198 Patient's noncompliance with other medical treatment and regimen for other reason; Z87.891 Personal history of nicotine dependence; I25.2 Old myocardial infarction; Z86.19 Personal history of other infectious and parasitic diseases; Z91.81 History of falling; Z95.5 Presence of coronary angioplasty implant and graft; Z79.82 Long term (current) use of aspirin; Z79.899 Other long term (current) drug therapy; Z88.8 Allergy status to other drugs, medicaments and biological substances
CPT/HCPCS: 71045; 71046; 80048; 80053; 82330; 82805; 83735; 84100; 84132; 85025; 85027; 85520; 85610; 85730; 86850; 86891; 86900; 86901; 86920; 88304; 88307; 90935; 94002; 94003; 94640; 94760

== ENCOUNTER 2023-10-29 11:29 | Observation (INO) | payer MEDICARE ==
--- NOTE | 2023-10-29 11:53 | ED ---
General Adult HPI - General Chief complaint: Chest Pain Stated complaint: Chest pain Time Seen by Provider: 10/29/23 11:36 Source: patient Mode of arrival: ambulatory Limitations: no limitations - History of Present Illness Initial comments: Dictation was produced using [employer] dictation software. please excuse any grammatical, word or spelling errors. Chief Complaint: 72-year-old male presents emergency department chest pain History of Present Illness: Patient 72-year-old male he has past medical history of ESRD. States he missed dialysis because of the chest pain. States that the pain is severe. Patient 12 days ago had CABG performed by Dr. Freeman. Patient states that he was only told to take Tylenol for his postoperative pain. States that does not feel like it is enough. Patient states that his pain is to his surgical site. Denies any pressure to radiates on the arm diaphoresis. Patient gets dialysis Tuesday. The ROS documented in this emergency department record has been reviewed and confirmed by me. Those systems with pertinent positive or negative responses have been documented in the HPI. All other systems are other negative and/or noncontributory. - Related Data Home Medications Medication Instructions Recorded Confirmed Ezetimibe [Zetia] 10 mg PO DAILY 05/19/16 10/29/23 Ferrous Sulfate [Iron (65 MG 325 mg PO DAILY 05/19/16 10/29/23 Elemental)] Insulin Aspart (For Pump) [NovoLOG 0.01 unit SQ-PUMP CONTINUOUS 05/28/18 10/29/23 (For Pump)] Pramipexole [Mirapex] 0.5 mg PO BID PRN 05/02/19 10/29/23 Albuterol Inhaler [Ventolin Hfa 2 puff INHALATION RT-Q4H PRN 08/10/21 10/29/23 Inhaler] Aspirin EC [Ecotrin Low Dose] 81 mg PO DAILY 02/21/22 10/29/23 Glucagon Emergency Kit 1 mg IM ONCE PRN 02/21/22 10/29/23 Escitalopram [Lexapro] 10 mg PO DAILY 01/01/23 10/29/23 ALPRAZolam [Xanax] 0.5 mg PO HS PRN 06/17/23 10/29/23 Cholecalciferol [Vitamin D3 (25 50 mcg PO DAILY 06/17/23 10/29/23 Mcg = 1000 Iu)] Rosuvastatin [Crestor] 10 mg PO HS 06/17/23 10/29/23 Tamsulosin [Flomax] 0.4 mg PO HS 06/17/23 10/29/23 Cetirizine HCl [Zyrtec] 10 mg PO DAILY 09/22/23 10/29/23 Folic Acid/Vit B Complex and C 0.8 mg PO DAILY 09/22/23 10/29/23 [Nephro-Pooja Tablet] Torsemide [Demadex] 40 mg PO SUMOWEFR 09/22/23 10/29/23 Calcium Carbonate [Tums] 1,000 mg PO AC-TID 09/28/23 10/29/23 Metoprolol Tartrate [Lopressor] 12.5 mg PO HS 10/29/23 10/29/23 Metoprolol Tartrate [Lopressor] 25 mg PO DAILY 10/29/23 10/29/23 Previous Rx's Medication Instructions Recorded Acetaminophen Tab [Tylenol] 1,000 mg PO Q6HR PRN tab 10/24/23 Clopidogrel [Plavix] 75 mg PO DAILY #30 tab 10/24/23 Pantoprazole [Protonix] 40 mg PO AC-BRKFST #30 tab 10/24/23 Allergies Allergy/AdvReac Type Severity Reaction Status Date / Time zolpidem [From Ambien] Allergy Hallucinati Verified 10/29/23 11:35 ons atorvastatin [From Lipitor] AdvReac jt and Verified 10/29/23 11:34 muscle pain baclofen AdvReac caused a Verified 10/29/23 11:34 fall Review of Systems ROS Statement: Those systems with pertinent positive or pertinent negative responses have been documented in the HPI. ROS Other: All systems not noted in ROS Statement are negative. Past Medical History Past Medical History: Blood Disorder, Coronary Artery Disease (CAD), Chest Pain / Angina, Heart Failure, COPD, Diabetes Mellitus, Dialysis, Hearing Disorder / Deafness, Hyperlipidemia, Hypertension, Myocardial Infarction ([place]), Osteoarthritis (OA), Renal Disease, Sleep Apnea/CPAP/BIPAP Additional Past Medical History / Comment(s): has insulin pump and contiunuous blood glucose monitor,fell at home on Tuesday10-10-23"got dizzy"-no injury,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. Chronic renal failure, dialysis [facility] normally. Patient has insulin pump. Has CPAP, occasionally uses. Neuropathy in feet and hands. Poor hearing. Last Myocardial Infarction Date:: History of Any Multi-Drug Resistant Organisms: None Reported Past Surgical History: Cholecystectomy, Heart Catheterization, Heart Catheterization With Stent, Orthopedic Surgery Additional Past Surgical History / Comment(s): Shoulder surgery-no hardware, hemorrhoidectomy, eye surgery,4 cardiac stents,AV fistula left forearm Past Anesthesia/Blood Transfusion Reactions: No Reported Reaction Additional Past Anesthesia/Blood Transfusion Reaction / Comment(s): Never had a blood transfusion. Date of Last Stent Placement:: Past Psychological History: No Psychological Hx Reported Smoking Status: Former smoker Past Alcohol Use History: None Reported Past Drug Use History: None Reported - Past Family History Father Family Medical History: Cancer Additional Family Medical History / Comment(s): Bladder cancer. Mother Family Medical History: Cancer, Diabetes Mellitus Additional Family Medical History / Comment(s): Pancreatic cancer. General Exam - General Exam Comments Initial Comments: PHYSICAL EXAM: General Impression: Alert and oriented x3, n acute distress secondary to pain HEENT: Normocephalic atraumatic, extra-ocular movements intact, pupils equal and reactive to light bilaterally, mucous membranes moist. Cardiovascular: Heart regular rate and rhythm Chest: Able to complete full sentences, no retractions, no tachypnea Abdomen: abdomen soft, non-tender, non-distended, no organomegaly Musculoskeletal: Pulses present and equal in all extremities, no peripheral edema Motor: no focal deficits noted Neurological: CN II-XII grossly intact, no focal motor or sensory deficits noted Skin: Intact with no visualized rashes Psych: Normal affect and mood Limitations: no limitations Course Vital Signs 10/29/23 10/29/23 11:32 11:54 Temperature 97.8 F Pulse Rate 66 Pulse Rate [ 62 Left Supine Radial] Respiratory 20 Rate Blood Pressure 138/70 O2 Sat by Pulse 99 Oximetry EKG Findings - EKG Comments: EKG Findings:: My EKG interpretation: Ventricular rate 60, sinus rhythm, right bundle branch block,. 128, QRS 166, QTc 464. No ND prolongation, no QTC prolongation, no ST or T-wave changes noted. EKG compared to October 18, 2023 showing no changes. Overall, this EKG is unremarkable Medical Decision Making - Medical Decision Making Was pt. sent in by a medical professional or institution (Dr. CLINTON, OPERATIONS RESEARCH SCIENTIST, urgent care, hospital, or correction...) When possible be specific @ -No Did you speak to anyone other than the patient for history (EMS, parent, family, police, friend...)? What history was obtained from this source @ -No Did you review nursing and triage notes (agree or disagree)? Why? @ -I reviewed and agree with nursing and triage notes Were old charts reviewed (outside hosp., previous admission, EMS record, old EKG, old radiological studies, urgent care reports/EKG's, correction records)? Report findings @ -No old charts were reviewed Differential Diagnosis (chest pain, altered mental status, abdominal pain women, abdominal pain men, vaginal bleeding, musculoskeletal, weakness, fever, dyspnea, syncope, headache, dizziness, GI bleed, back pain, seizure, CVA, palpatations, mental health)? @ -Differential Chest Pain: Stable Angina, Unstable Angina, STEMI, NSTEMI Aortic Dissection, Pneumothorax, Musculoskeletal, Esophageal Spasm GERD, Cholecystitis, Pancreatitis, Zoster, this is not meant to be an all-inclusive list. EKG interpreted by me (3pts min.). @ -See above X-rays interpreted by me (1pt min.). @ -Two-view chest x-ray is unremarkable CT interpreted by me (1pt min.). @ -None done U/S interpreted by me (1pt. min.). @ -None done What testing was considered but not performed or refused? (CT, X-rays, U/S, labs)? Why? @ -None What meds were considered but not given or refused? Why? @ -None Did you discuss the management of the patient with other professionals (professionals i.e. CLINTON Reyes, OPERATIONS RESEARCH SCIENTIST, lab, RT, psych nurse, long term care social worker, retail sales consultant, teacher, senior grants officer, showcase trimmer)? Give summary @ -Case discussed with hospitalist for admission. Case also discussed with nephrology who is aware that patient will need dialysis today. Case also discussed with cardiothoracic surgery who is agreeable that patient be admitted observation Was smoking cessation discussed for >3mins.? @ -No Was critical care preformed (if so, how long)? @ -No Were there social determinants of health that impacted care today? How? ( Homelessness, low income, unemployed, alcoholism, drug addiction, transportation, low edu. Level, literacy, decrease access to med. care, detention, rehab)? @ -No Was there de-escalation of care discussed even if they declined (Discuss DNR or withdrawal of care, Hospice)? DNR status @ -No What co-morbidities impacted this encounter? (DM, HTN, Smoking, COPD, CAD, Cancer, CVA, ARF, Chemo, Hep., AIDS, mental health diagnosis, sleep apnea, morbid obesity)? @ -None Was patient admitted / discharged? Hospital course, mention meds given and route, prescriptions, significant lab abnormalities, going to OR and other pertinent info. @ -72-year-old male presents to the emergency department with atypical chest pain. Patient's pain is likely postoperative. Vital signs stable. Patient reports significant relief with morphine. Labs unremarkable. Troponin 0.357 likely secondary to recent surgery. Patient will be admitted for dialysis, pain control to observation. Undiagnosed new problem with uncertain prognosis? @ -No Drug Therapy requiring intensive monitoring for toxicity (Heparin, Nitro, In sulin, Cardizem)? @ -No Were any procedures done? @ -No Diagnosis/symptom? Acute, or Chronic, or Acute on Chronic? Uncomplicated (without systemic symptoms) or Complicated (systemic symptoms)? @ -Postoperative pain, missed hemodialysis Side effects of treatment? @ -No Exacerbation, Progression, or Severe Exacerbation? @ -No Poses a threat to life or bodily function? How? (Chest pain, [place], [place], pneumonia, PE, COPD, DKA, ARF, appy, cholecystitis, CVA, Diverticulitis, Homicidal, Suicidal, threat to staff... and all critical care pts) @ -No - Lab Data Result diagrams: 10/29/23 12:35 10/29/23 12:35 Lab Results 10/29/23 10/29/23 10/29/23 Range/Units 12:35 12:35 12:35 WBC 6.3 (3.8-10.6) k/uL RBC 3.06 L (4.30-5.90) m/uL Hgb 9.7 L (13.0-17.5) gm/dL Hct 30.5 L (39.0-53.0) % MCV 99.8 (80.0-100.0) fL MCH 31.9 (25.0-35.0) pg MCHC 31.9 (31.0-37.0) g/dL RDW 13.7 (11.5-15.5) % Plt Count 226 (150-450) k/uL MPV 9.4 Neutrophils % 67 % Lymphocytes % 17 % Monocytes % 9 % Eosinophils % 2 % Basophils % 1 % Neutrophils # 4.2 (1.3-7.7) k/uL Lymphocytes # 1.1 (1.0-4.8) k/uL Monocytes # 0.6 (0-1.0) k/uL Eosinophils # 0.1 (0-0.7) k/uL Basophils # 0.1 (0-0.2) k/uL Hypochromasia Slight Sodium 133 L (137-145) mmol/L Potassium 4.5 (3.5-5.1) mmol/L Chloride 93 L (98-107) mmol/L Carbon Dioxide 26 (22-30) mmol/L Anion Gap 14 mmol/L BUN 61 H (9-20) mg/dL Creatinine 4.09 H (0.66-1.25) mg/dL Est GFR (CKD-EPI)AfAm 16 (>60 ml/min/1.73 sqM) Est GFR (CKD-EPI)NonAf 14 (>60 ml/min/1.73 sqM) Glucose 279 H (74-99) mg/dL Calcium 8.9 (8.4-10.2) mg/dL Troponin I 0.357 H* (0.000-0.034) ng/mL Disposition Clinical Impression: Post-operative pain, Hemodialysis patient Disposition: ADMITTED IP TO THIS [facility] Condition: Fair Referrals: Marlon Valentino DO [Primary Care Provider] - 1-2 days Decision Time: 13:58
[2023-10-29] MEDS: MORPHINE SULFATE 2 MG/ML SYRINGE IV STA (12:41)
[2023-10-29 13:12] LABS: African American GFR (CKD) 16 (>60 ml/min/1.73 sqM); Anion Gap 14 mmol/L; Blood Urea Nitrogen 61 mg/dL (9-20); Calcium 8.9 mg/dL (8.4-10.2); Carbon Dioxide 26 mmol/L (22-30); Chloride 93 mmol/L (98-107); Glucose 279 mg/dL (74-99); Non-African American GFR(CKD) 14 (>60 ml/min/1.73 sqM); Potassium 4.5 mmol/L (3.5-5.1); Sodium 133 mmol/L (137-145)
[2023-10-29 13:15] LABS: Basophils # (A) 0.1 k/uL (0-0.2); Basophils % (A) 1 %; Eosinophils # (A) 0.1 k/uL (0-0.7); Eosinophils % (A) 2 %; HCT 30.5 % (39.0-53.0); HGB 9.7 gm/dL (13.0-17.5); Hypochromasia Slight; Lymphocytes # (A) 1.1 k/uL (1.0-4.8); Lymphocytes % (A) 17 %; MCH 31.9 pg (25.0-35.0); MCHC 31.9 g/dL (31.0-37.0); MCV 99.8 fL (80.0-100.0); Mean Platelet Volume 9.4; Monocytes # (A) 0.6 k/uL (0-1.0); Monocytes % (A) 9 %; Neutrophils # (A) 4.2 k/uL (1.3-7.7); Neutrophils % (A) 67 %; Platelet Count 226 k/uL (150-450); RBC 3.06 m/uL (4.30-5.90); RDW 13.7 % (11.5-15.5); WBC 6.3 k/uL (3.8-10.6)
--- NOTE | 2023-10-29 13:20 | XR ---
EXAMINATION TYPE: XR chest 2V DATE OF EXAM: 10/29/2023 COMPARISON: 10/24/2023 INDICATION: Chest pain TECHNIQUE: Frontal and lateral views of the chest are obtained. FINDINGS: The heart size is enlarged. The pulmonary vasculature is normal. Mild lingular infiltrate is present with silhouetting the left heart border. Findings are slightly wo rsened over the interval. IMPRESSION: 1. Early for atelectasis or pneumonia within the lingula.
[2023-10-29] MEDS ORDERED: MORPHINE SULFATE 2 MG/ML SYRINGE IV PRN (13:54)
[2023-10-29] MEDS ORDERED: NALOXONE 0.4 MG/ML 1 ML VIAL IV PRN (13:54)
[2023-10-29] MEDS: SODIUM CHLORIDE 0.9% 1,000 ML IV SCH (14:31)
[2023-10-29] MEDS ORDERED: ALPRAZolam 0.5 MG TAB PO PRN (15:10)
[2023-10-29] MEDS ORDERED: ACETAMINOPHEN TAB 500 MG TAB PO PRN ×2 (15:14→15:20)
--- NOTE | 2023-10-29 15:16 | P.HPIM ---
History of Present Illness H&P Date: 10/29/23 Patient is a 72-year-old male with history of coronary artery disease status post recent CABG, ESRD on hemodialysis, type 2 diabetes on insulin pump, COPD, heart failure with a EF 50 to 55%, multiple other comorbid conditions, presenting with chest wall pain. He claims that since leaving the hospital he has been having persistent chest wall pain. Recently worsening with cough and movement. He has not noticed any redness or drainage. He denies any fevers, chills, abdominal pain, nausea, vomiting, urinary or bowel complaints. He still makes a little bit of urine. His pain was so severe, and he missed his dialysis session today. He decided to come to the hospital. In the ED, temperature was 97.8, pulse 66, respiratory rate 20, blood pressure 138/70, saturating at 99% on room air. WBC 6.3, hemoglobin 9.7, improved from discharge, sodium 133, potassium 4.5, bicarb 26, BUN 61, creatinine 4.09, troponin 0.357. EKG shows sinus rhythm, right bundle branch block, chest x-ray shows opacity in the lingula. Patient being admitted for pain control, hemodialysis. Pertinent positives and negatives as discussed in HPI, a complete review of systems was performed and all other systems are negative. Patient seen and examined at bedside. Vital signs reviewed General: nontoxic, no distress, appears at stated age Derm: warm, dry, chest wall dressing clean, dry, intact Head: atraumatic, normocephalic, symmetric Eyes: EOMI, no lid lag, anicteric sclera, pupils equal round reactive to light ENT: Nose and ears atraumatic Neck: No thyromegaly, supple Mouth: no lip lesion, mucus membranes moist Cardiovascular: S1S2 reg, no murmur, 2+ pitting edema Lungs: clear to auscultation bilateral, no rhonchi, no rales, no wheeze, no accessory muscle use Abdominal: soft, nontender to palpation, no guarding, no appreciable organomegaly Ext: no gross muscle atrophy, muscle strength muscle strength 5 out of 5 in all 4 extremities, no contractures Neuro: CN II-XII grossly intact Psych: Alert, oriented, appropriate affect Assessment/Plan: [Active:] Postoperative sternal pain Recent CABG -On morphine 2 mg IV every 4 hours as needed, [place] 5 every 4 hours as needed, Tylenol 1 g every 8 hours as needed - Continue home medications - Cardiothoracic surgery consulted ESRD on hemodialysis -nephrology consulted - Needs to be dialyzed Type 2 diabetes on insulin pump - Continue home insulin pump, monitor blood sugars q. ACHS [Chronic:] CAD Hypertension Dyslipidemia GERD BPH The patient is admitted with an anticipated less than 2 midnight stay as observation status for evaluation of chest wall pain. Surrogate decision-maker: CODE STATUS: Full code DVT prophylaxis: Subcu heparin Anticipated discharge date: Pending clinical course Anticipated discharge place: Clinical course A total of [] minutes was spent on the care of this complex patient more than 50% of the time was spent in counseling and care coordination. Past Medical History Past Medical History: Blood Disorder, Coronary Artery Disease (CAD), Chest Pain / Angina, Heart Failure, COPD, Diabetes Mellitus, Dialysis, Hearing Disorder / Deafness, Hyperlipidemia, Hypertension, Myocardial Infarction ([place]), Osteoarthritis (OA), Renal Disease, Sleep Apnea/CPAP/BIPAP Additional Past Medical History / Comment(s): has insulin pump and contiunuous blood glucose monitor,fell at home on Tuesday10-10-23"got dizzy"-no injury,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. Chronic renal failure, dialysis [facility] normally. Patient has insulin pump. Has CPAP, occasionally uses. Neuropathy in feet and hands. Poor hearing. Last Myocardial Infarction Date:: History of Any Multi-Drug Resistant Organisms: None Reported Past Surgical History: Cholecystectomy, Heart Catheterization, Heart Catheterization With Stent, Orthopedic Surgery Additional Past Surgical History / Comment(s): Shoulder surgery-no hardware, hemorrhoidectomy, eye surgery,4 cardiac stents,AV fistula left forearm Past Anesthesia/Blood Transfusion Reactions: No Reported Reaction Additional Past Anesthesia/Blood Transfusion Reaction / Comment(s): Never had a blood transfusion. Date of Last Stent Placement:: Past Psychological History: No Psychological Hx Reported Smoking Status: Former smoker Past Alcohol Use History: None Reported Past Drug Use History: None Reported - Past Family History Father Family Medical History: Cancer Additional Family Medical History / Comment(s): Bladder cancer. Mother Family Medical History: Cancer, Diabetes Mellitus Additional Family Medical History / Comment(s): Pancreatic cancer. Medications and Allergies Home Medications Medication Instructions Recorded Confirmed Type Ezetimibe [Zetia] 10 mg PO DAILY 05/19/16 10/29/23 History Ferrous Sulfate [Iron (65 MG 325 mg PO DAILY 05/19/16 10/29/23 History Elemental)] Insulin Aspart (For Pump) [NovoLOG 0.01 unit SQ-PUMP CONTINUOUS 05/28/18 10/29/23 History (For Pump)] Pramipexole [Mirapex] 0.5 mg PO BID PRN 05/02/19 10/29/23 History Albuterol Inhaler [Ventolin Hfa 2 puff INHALATION RT-Q4H PRN 08/10/21 10/29/23 History Inhaler] Aspirin EC [Ecotrin Low Dose] 81 mg PO DAILY 02/21/22 10/29/23 History Glucagon Emergency Kit 1 mg IM ONCE PRN 02/21/22 10/29/23 History Escitalopram [Lexapro] 10 mg PO DAILY 01/01/23 10/29/23 History ALPRAZolam [Xanax] 0.5 mg PO HS PRN 06/17/23 10/29/23 History Cholecalciferol [Vitamin D3 (25 50 mcg PO DAILY 06/17/23 10/29/23 History Mcg = 1000 Iu)] Rosuvastatin [Crestor] 10 mg PO HS 06/17/23 10/29/23 History Tamsulosin [Flomax] 0.4 mg PO HS 06/17/23 10/29/23 History Cetirizine HCl [Zyrtec] 10 mg PO DAILY 09/22/23 10/29/23 History Folic Acid/Vit B Complex and C 0.8 mg PO DAILY 09/22/23 10/29/23 History [Nephro-Pooja Tablet] Torsemide [Demadex] 40 mg PO SUMOWEFR 09/22/23 10/29/23 History Calcium Carbonate [Tums] 1,000 mg PO AC-TID 09/28/23 10/29/23 History Acetaminophen Tab [Tylenol] 1,000 mg PO Q6HR PRN tab 10/24/23 10/29/23 Rx Clopidogrel [Plavix] 75 mg PO DAILY #30 tab 10/24/23 10/29/23 Rx Pantoprazole [Protonix] 40 mg PO AC-BRKFST #30 tab 10/24/23 10/29/23 Rx Metoprolol Tartrate [Lopressor] 12.5 mg PO HS 10/29/23 10/29/23 History Metoprolol Tartrate [Lopressor] 25 mg PO DAILY 10/29/23 10/29/23 History Allergies Allergy/AdvReac Type Severity Reaction Status Date / Time zolpidem [From Ambien] Allergy Hallucinati Verified 10/29/23 11:35 ons atorvastatin [From Lipitor] AdvReac jt and Verified 10/29/23 11:34 muscle pain baclofen AdvReac caused a Verified 10/29/23 11:34 fall Physical Exam Vitals: Vital Signs Temp Pulse Pulse Resp BP Pulse Ox 10/29/23 14:00 89 16 133/54 95 10/29/23 13:00 58 L 14 131/53 91 L 10/29/23 11:54 62 10/29/23 11:32 97.8 F 66 20 138/70 99 Intake and Output 10/29/23 10/29/23 10/29/23 06:59 14:59 22:59 Other: Weight 99.79 kg Results CBC & Chem 7: 10/29/23 12:35 10/29/23 12:35 Labs: Abnormal Lab Results - Last 24 Hours (Table) 10/29/23 10/29/23 10/29/23 Range/Units 12:35 12:35 12:35 RBC 3.06 L (4.30-5.90) m/uL Hgb 9.7 L (13.0-17.5) gm/dL Hct 30.5 L (39.0-53.0) % Sodium 133 L (137-145) mmol/L Chloride 93 L (98-107) mmol/L BUN 61 H (9-20) mg/dL Creatinine 4.09 H (0.66-1.25) mg/dL Glucose 279 H (74-99) mg/dL Troponin I 0.357 H* (0.000-0.034) ng/mL
[2023-10-29 16:16] LABS: Glucose,Whole Blood 211 mg/dL (70-110)
[2023-10-29] MEDS: HEPARIN SODIUM,PORCINE 5,000 UNIT/ML 1 ML VIAL SQ SCH (16:22)
[2023-10-29] MEDS: HYDROcodone/APAP 5-325MG 1 EACH TAB PO PRN (17:02)
[2023-10-29] MEDS: CALCIUM CARBONATE 500 MG CHEWABLE PO SCH (17:02)
[2023-10-29] MEDS: ALBUTEROL HFA INHALER INHALATION PRN (20:03)
[2023-10-29 20:12] LABS: Glucose,Whole Blood 181 mg/dL (70-110)
[2023-10-29] MEDS: Insulin Aspart (For Pump) 100 UNIT/ML VIAL SQ-PUMP SCH (21:53)
[2023-10-29] MEDS: ATORVASTATIN 20 MG TAB PO SCH (22:37)
[2023-10-29] MEDS: METOPROLOL TARTRATE 25 MG TAB PO SCH (22:37)
[2023-10-29] MEDS: TAMSULOSIN 0.4 MG CAP.ER.24H PO SCH (22:37)
[2023-10-30 05:53] LABS: Glucose,Whole Blood 147 mg/dL (70-110)
[2023-10-30] MEDS: PANTOPRAZOLE 40 MG TABLET PO SCH (06:12)
--- NOTE | 2023-10-30 08:33 | P.GSCN ---
History of Present Illness Consult date: 10/30/23 Reason for Consult: Postoperative pain Requesting physician: Damien Fung History of present illness: This is a 72-year-old gentleman who follows on an outpatient basis with Dr. Valentino for primary care and Dr. Castle for cardiology. He has a previous medical history of coronary artery disease with left main disease and previous myocardial infarction status post CABG, chronic diastolic heart failure/mild car diomyopathy, end-stage renal disease on hemodialysis, hypertension, hyperlipidemia, anemia of chronic kidney disease, insulin-dependent diabetes, COPD, obstructive sleep apnea without home CPAP use, and previous tobacco dependence. He was recently hospitalized for open heart surgery and was dischar ged to home with home care on October 23. His recovery at home has been uneventful except for some extra fatigue and weakness after dialysis as well as significant postoperative chest discomfort. His chest discomfort yesterday morning was so bad that he came to [facility] emergency room for evaluation and treatment instead of going to his dialysis. EKG revealed sinus rhythm. Chest x-ray revealed atelectasis. Labs revealed WBC 6.3, hemoglobin 9.7, creatinine 4.09, and troponin was elevated at 0.357 which is common after open heart surgery. The patient was given IV morphine which relieved his chest pain. He was admitted for observation for better pain control with consultation placed to nephrology due to missed dialysis as well as to cardiothoracic surgery as the patient is known to our service. Review of Systems Review of systems was completed and was negative except as noted - Constitutional Reports fatigue - Cardiovascular Reports chest pain Past Medical History Past Medical History: Blood Disorder, Coronary Artery Disease (CAD), Chest Pain / Angina, Heart Failure, COPD, Diabetes Mellitus, Dialysis, Hearing Disorder / Deafness, Hyperlipidemia, Hypertension, Myocardial Infarction (SC), Osteoarthritis (OA), Renal Disease, Sleep Apnea/CPAP/BIPAP Additional Past Medical History / Comment(s): has insulin pump and contiunuous blood glucose monitor,fell at home on Tuesday10-10-23"got dizzy"-no injury,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. Chronic renal failure, dialysis [facility] normally. Patient has insulin pump. Has CPAP, occasionally uses. Neuropathy in feet and hands. Poor hearing. Last Myocardial Infarction Date:: History of Any Multi-Drug Resistant Organisms: None Reported Past Surgical History: Cholecystectomy, Coronary Bypass/CABG, Heart Cathet erization, Heart Catheterization With Stent, Orthopedic Surgery Additional Past Surgical History / Comment(s): Shoulder surgery-no hardware, hemorrhoidectomy, eye surgery,4 cardiac stents,AV fistula left forearm, double vessle CABG 10/17/23 Past Anesthesia/Blood Transfusion Reactions: No Reported Reaction Additional Past Anesthesia/Blood Transfusion Reaction / Comm: Never had a blood transfusion. Date of Last Stent Placement:: Past Psychological History: No Psychological Hx Reported Additional Psychological History / Comment(s): Shopping and crowds bother patient. Smoking Status: Former smoker Past Alcohol Use History: None Reported Additional Past Alcohol Use History / Comment(s): Quit smoking in 1980. Past Drug Use History: None Reported - Past Family History Father Family Medical History: Cancer Additional Family Medical History / Comment(s): Bladder cancer. Mother Family Medical History: Cancer, Diabetes Mellitus Additional Family Medical History / Comment(s): Pancreatic cancer. Medications and Allergies Home Medications Medication Instructions Recorded Confirmed Type Ezetimibe [Zetia] 10 mg PO DAILY 05/19/16 10/29/23 History Ferrous Sulfate [Iron (65 MG 325 mg PO DAILY 05/19/16 10/29/23 History Elemental)] Insulin Aspart (For Pump) [NovoLOG 0.01 unit SQ-PUMP CONTINUOUS 05/28/18 10/29/23 History (For Pump)] Pramipexole [Mirapex] 0.5 mg PO BID PRN 05/02/19 10/29/23 History Albuterol Inhaler [Ventolin Hfa 2 puff INHALATION RT-Q4H PRN 08/10/21 10/29/23 History Inhaler] Aspirin EC [Ecotrin Low Dose] 81 mg PO DAILY 02/21/22 10/29/23 History Glucagon Emergency Kit 1 mg IM ONCE PRN 02/21/22 10/29/23 History Escitalopram [Lexapro] 10 mg PO DAILY 01/01/23 10/29/23 History ALPRAZolam [Xanax] 0.5 mg PO HS PRN 06/17/23 10/29/23 History Cholecalciferol [Vitamin D3 (25 50 mcg PO DAILY 06/17/23 10/29/23 History Mcg = 1000 Iu)] Rosuvastatin [Crestor] 10 mg PO HS 06/17/23 10/29/23 History Tamsulosin [Flomax] 0.4 mg PO HS 06/17/23 10/29/23 History Cetirizine HCl [Zyrtec] 10 mg PO DAILY 09/22/23 10/29/23 History Folic Acid/Vit B Complex and C 0.8 mg PO DAILY 09/22/23 10/29/23 History [Nephro-Pooja Tablet] Torsemide [Demadex] 40 mg PO SUMOWEFR 09/22/23 10/29/23 History Calcium Carbonate [Tums] 1,000 mg PO AC-TID 09/28/23 10/29/23 History Acetaminophen Tab [Tylenol] 1,000 mg PO Q6HR PRN tab 10/24/23 10/29/23 Rx Clopidogrel [Plavix] 75 mg PO DAILY #30 tab 10/24/23 10/29/23 Rx Pantoprazole [Protonix] 40 mg PO AC-BRKFST #30 tab 10/24/23 10/29/23 Rx Metoprolol Tartrate [Lopressor] 12.5 mg PO HS 10/29/23 10/29/23 History Metoprolol Tartrate [Lopressor] 25 mg PO DAILY 10/29/23 10/29/23 History Allergies Allergy/AdvReac Type Severity Reaction Status Date / Time zolpidem [From Ambien] Allergy Hallucinati Verified 10/29/23 11:35 ons atorvastatin [From Lipitor] AdvReac jt and Verified 10/29/23 11:34 muscle pain baclofen AdvReac caused a Verified 10/29/23 11:34 fall Surgical - Exam Vital Signs Temp Pulse Resp BP Pulse Ox 97.8 F 66 20 138/70 99 10/29/23 11:32 10/29/23 11:32 10/29/23 11:32 10/29/23 11:32 10/29/23 11:32 CONSTITUTIONAL: Awake and alert, appears comfortable, cooperative, well- developed, well-nourished, no pain, no acute distress, sitting up in bed eating breakfast EYES: Pupils equal, round, reactive to light, normal ocular movement ENT: Moist mucous membranes without oral lesions present NECK: No masses, no bruits, trachea midline RESPIRATORY: Lungs sounds clear to auscultation bilaterally. Respirations elpidio n, nonlabored. Currently on room air with oxygen saturation 98%. Strong cough. No chest wall deformities. No clubbing or cyanosis present CARDIOVASCULAR: S1, S2 present. Regular rate and rhythm, sinus rhythm on telemetry. Sternum stable. Palpable peripheral pulses bilaterally. Bilateral lower extremity edema present. No calf pain or tenderness noted GASTROINTESTINAL: Abdomen soft, nontender, nondistended without masses or organomegaly noted. There is no rebound or guarding present. Active bowel sounds present 4 quadrants. GENITOURINARY: Deferred INTEGUMENTARY: Skin is warm and dry with evidence of good perfusion. Left lower extremity EVH site as well as anterior chest incision all well- approximated without redness or drainage NEUROLOGIC: Cranial nerves II through XII intact, normal coordination, no obvious motor or sensory deficits, speech is normal MUSKULOSKELETAL: Able to move all extremities, strength equal bilaterally, normal posture PSYCHIATRIC: Alert and oriented to person place and time, appropriate affect, intact judgment and insight Results - Labs 10/29/23 12:35 10/29/23 12:35 Abnormal Lab Results - Last 24 Hours (Table) 10/29/23 10/29/23 10/29/23 Range/Units 12:35 12:35 12:35 RBC 3.06 L (4.30-5.90) m/uL Hgb 9.7 L (13.0-17.5) gm/dL Hct 30.5 L (39.0-53.0) % Sodium 133 L (137-145) mmol/L Chloride 93 L (98-107) mmol/L BUN 61 H (9-20) mg/dL Creatinine 4.09 H (0.66-1.25) mg/dL Glucose 279 H (74-99) mg/dL POC Glucose (mg/dL) (70-110) mg/dL Troponin I 0.357 H* (0.000-0.034) ng/mL 10/29/23 10/29/23 10/30/23 Range/Units 16:15 20:09 05:52 RBC (4.30-5.90) m/uL Hgb (13.0-17.5) gm/dL Hct (39.0-53.0) % Sodium (137-145) mmol/L Chloride (98-107) mmol/L BUN (9-20) mg/dL Creatinine (0.66-1.25) mg/dL Glucose (74-99) mg/dL POC Glucose (mg/dL) 211 H 181 H 147 H (70-110) mg/dL Troponin I (0.000-0.034) ng/mL Diabetes panel 10/29/23 Range/Units 12:35 Sodium 133 L (137-145) mmol/L Potassium 4.5 (3.5-5.1) mmol/L Chloride 93 L (98-107) mmol/L Carbon Dioxide 26 (22-30) mmol/L BUN 61 H (9-20) mg/dL Creatinine 4.09 H (0.66-1.25) mg/dL Glucose 279 H (74-99) mg/dL Calcium 8.9 (8.4-10.2) mg/dL Calcium panel 10/29/23 Range/Units 12:35 Calcium 8.9 (8.4-10.2) mg/dL Pituitary panel 10/29/23 Range/Units 12:35 Sodium 133 L (137-145) mmol/L Potassium 4.5 (3.5-5.1) mmol/L Chloride 93 L (98-107) mmol/L Carbon Dioxide 26 (22-30) mmol/L BUN 61 H (9-20) mg/dL Creatinine 4.09 H (0.66-1.25) mg/dL Glucose 279 H (74-99) mg/dL Calcium 8.9 (8.4-10.2) mg/dL Adrenal panel 10/29/23 Range/Units 12:35 Sodium 133 L (137-145) mmol/L Potassium 4.5 (3.5-5.1) mmol/L Chloride 93 L (98-107) mmol/L Carbon Dioxide 26 (22-30) mmol/L BUN 61 H (9-20) mg/dL Creatinine 4.09 H (0.66-1.25) mg/dL Glucose 279 H (74-99) mg/dL Calcium 8.9 (8.4-10.2) mg/dL - Imaging Chest x-ray: report reviewed, image reviewed EKG: image reviewed Assessment and Plan Assessment: Postoperative chest discomfort, expected Coronary artery disease with left main disease with previous myocardial infarction, status post two-vessel CABG October 17, 2023 Chronic diastolic heart failure/ mild cardiomyopathy with EF 50% End-stage renal disease maintained on hemodialysis Tuesdays and Saturdays Hypertension Hyperlipidemia, treated cholesterol 100 mg/dL, LDL 32.2 mg/dL Anemia of chronic kidney disease Insulin-dependent diabetes mellitus, with a preoperative hemoglobin A1c of 7.8% Chronic fatigue COPD with a preoperative FEV1 78% of predicted value with a base volume of 2.01 Obstructive sleep apnea, noncompliant with CPAP use History of constipation Remote history of nicotine dependence, quit smoking 1982 Neuropathy Plan: The patient was seen and examined sitting up at the bedside eating breakfast with present. He states morphine initial dose as well as oral [place] has helped to control his pain, feels better than when he came in. Chart /diagnostics reviewed. Recommend to continue current medication therapy. Recommend discharging patient to home with home care with 1 week worth of [place] for better pain control. Patient should continue to exercise sternal precautions, continue with dialysis. Discharge instructions and follow-up appointments will be placed on discharge plan. The patient will be seen today by Dr. Freeman. Again, there is no reason to keep the patient in the hospital for pain control, he can be discharged with oral narcotics. Thank you for this consult. Please call us with any further questions. I have personally seen and examined the patient, performed the documentation and the assessment and plan as written. Number of minutes spent on the visit: 30. ORLANDO Duran Attending Addendum: Pt seen and evaluated with OFFICE SUPERVISOR above. Agree with her assessment and plan. Pt is s/p OPCABG. Here with chest pain. Pt also missed his dialysis. Recommend pain control, urgent run of HD and discharge KATTY. I spent 35 minutes reviewing the data and discussing plan of care with the team. Time with Patient: Greater than 30
[2023-10-30] MEDS: ASPIRIN 81 MG PO SCH (08:38)
[2023-10-30] MEDS: ESCITALOPRAM 10 MG TAB PO SCH (08:38)
[2023-10-30] MEDS: METOPROLOL TARTRATE 25 MG TAB PO SCH (08:38)
[2023-10-30] MEDS: FERROUS SULFATE 325 MG TAB PO SCH (08:38)
[2023-10-30] MEDS: LORATADINE 10 MG TAB PO SCH (08:38)
[2023-10-30] MEDS: EZETIMIBE 10 MG TAB PO SCH (08:38)
[2023-10-30] MEDS: CLOPIDOGREL 75 MG TAB PO SCH (08:38)
[2023-10-30] MEDS: FOLIC ACID-VIT B COMPLEX-VIT C 1 CAP PO SCH (08:39)
[2023-10-30 10:06] LABS: Basophils # (A) 0.1 k/uL (0-0.2); Basophils % (A) 1 %; Eosinophils # (A) 0.1 k/uL (0-0.7); Eosinophils % (A) 2 %; HCT 29.1 % (39.0-53.0); HGB 9.3 gm/dL (13.0-17.5); Hypochromasia Slight; Lymphocytes # (A) 1.1 k/uL (1.0-4.8); Lymphocytes % (A) 20 %; MCH 32.2 pg (25.0-35.0); MCHC 31.9 g/dL (31.0-37.0); MCV 100.8 fL (80.0-100.0); Macrocytosis Slight; Monocytes # (A) 0.6 k/uL (0-1.0); Monocytes % (A) 10 %; Neutrophils # (A) 3.7 k/uL (1.3-7.7); Neutrophils % (A) 64 %; Platelet Count 206 k/uL (150-450); RBC 2.89 m/uL (4.30-5.90); RDW 13.6 % (11.5-15.5); WBC 5.8 k/uL (3.8-10.6)
[2023-10-30 10:32] LABS: African American GFR (CKD) 21 (>60 ml/min/1.73 sqM); Anion Gap 15 mmol/L; Blood Urea Nitrogen 44 mg/dL (9-20); Calcium 8.7 mg/dL (8.4-10.2); Carbon Dioxide 28 mmol/L (22-30); Chloride 93 mmol/L (98-107); Glucose 121 mg/dL (74-99); Magnesium 2.3 mg/dL (1.6-2.3); Non-African American GFR(CKD) 18 (>60 ml/min/1.73 sqM); Sodium 136 mmol/L (137-145)
[2023-10-30 10:44] VITALS: BP 145/67; PULSE 83; RESP 18; TEMP 97.6
--- NOTE | 2023-10-30 10:55 | P.DS ---
Providers Date of admission: 10/29/23 13:55 Expected date of discharge: 10/30/23 Attending physician: Damien Fung MD Consults: 10/29/23 13:54 Consult Physician Routine Consulting Provider: Frederic Freeman Consult Reason/Comments: post operative pain Do you want consulting provider notified?: Already Contacted Consult Physician Routine Consulting Provider: Saritha Cadena Consult Reason/Comments: missed HD Do you want consulting provider notified?: Yes Primary care physician: Marlon Valentino Hospital Course: Discharge Diagnosis: Postoperative sternal pain Recent CABG ESRD on hemodialysis Type 2 diabetes on insulin pump Hospital Course: 72-year-old male with history of coronary artery disease status post recent CABG, ESRD on hemodialysis, type 2 diabetes on insulin pump, COPD, heart failure with a EF 50 to 55%, multiple other comorbid conditions, presenting with chest wall pain. In the ED, temperature was 97.8, pulse 66, respiratory rate 20, blood pressure 138/70, saturating at 99% on room air. WBC 6.3, hemoglobin 9.7, improved from discharge, sodium 133, potassium 4.5, bicarb 26, BUN 61, creatinine 4.09, troponin 0.357. EKG shows sinus rhythm, right bundle branch block, chest x-ray shows opacity in the lingula. Patient being admitted for pain control, hemodialysis. Pain improved with oral [place]. Was seen by cardiothoracic surgery, recommending discharge home. Also had hemodialysis. Patient seen and examined at bedside. Vital signs reviewed and stable. General: Nontoxic, no distress, appears at stated age Derm: Warm, dry, chest wall dressing clean, dry, intact Head: Atraumatic, normocephalic, symmetric Eyes: EOMI, no lid lag, anicteric sclera Mouth: No lip lesion, mucus membranes moist Cardiovascular: S1S2 reg, no murmur Lungs: CTA bilateral, no rhonchi, no rales, no accessory muscle use Abdominal: Soft, nontender to palpation, no guarding, no appreciable organomegaly Ext: No gross muscle atrophy, 1+ lower extremity edema, no contractures Neuro: CN II-XI grossly intact, no focal neuro deficits Psych: Alert, oriented, appropriate affect A total of 33 minutes of time were spent preparing this complex discharge summary. Patient was discharged on 10/30/2023 at 1036. Patient Condition at Discharge: Stable Plan - Discharge Summary Discharge Rx Participant: Yes New Discharge Prescriptions: New HYDROcodone/APAP 5-325MG [[place] 5-325] 1 each PO Q4-6H PRN #18 tab PRN Reason: Severe Breakthrough Pain Continue Ezetimibe [Zetia] 10 mg PO DAILY Ferrous Sulfate [Iron (65 MG Elemental)] 325 mg PO DAILY Insulin Aspart (For Pump) [NovoLOG (For Pump)] 0.01 unit SQ-PUMP CONTINUOUS Pramipexole [Mirapex] 0.5 mg PO BID PRN PRN Reason: Restless legs Albuterol Inhaler [Ventolin Hfa Inhaler] 2 puff INHALATION RT-Q4H PRN PRN Reason: Shortness Of Breath Glucagon Emergency Kit 1 mg IM ONCE PRN PRN Reason: Hypoglycemia Escitalopram [Lexapro] 10 mg PO DAILY Rosuvastatin [Crestor] 10 mg PO HS Cetirizine HCl [Zyrtec] 10 mg PO DAILY Calcium Carbonate [Tums] 1,000 mg PO AC-TID Acetaminophen Tab [Tylenol] 1,000 mg PO Q6HR PRN tab PRN Reason: Fever And/ Or Pain Aspirin EC [Ecotrin Low Dose] 81 mg PO DAILY Tamsulosin [Flomax] 0.4 mg PO HS ALPRAZolam [Xanax] 0.5 mg PO HS PRN PRN Reason: Severe Anxiety Cholecalciferol [Vitamin D3 (25 Mcg = 1000 Iu)] 50 mcg PO DAILY Folic Acid/Vit B Complex and C [Nephro-Pooja Tablet] 0.8 mg PO DAILY Torsemide [Demadex] 40 mg PO SUMOWEFR Clopidogrel [Plavix] 75 mg PO DAILY #30 tab Pantoprazole [Protonix] 40 mg PO AC-BRKFST #30 tab Metoprolol Tartrate [Lopressor] 25 mg PO DAILY Metoprolol Tartrate [Lopressor] 12.5 mg PO HS Discharge Medication List Ezetimibe [Zetia] 10 mg PO DAILY 05/19/16 [History] Ferrous Sulfate [Iron (65 MG Elemental)] 325 mg PO DAILY 05/19/16 [History] Insulin Aspart (For Pump) [NovoLOG (For Pump)] 0.01 unit SQ-PUMP CONTINUOUS 05/28/18 [History] Pramipexole [Mirapex] 0.5 mg PO BID PRN 05/02/19 [History] Albuterol Inhaler [Ventolin Hfa Inhaler] 2 puff INHALATION RT-Q4H PRN 08/10/21 [History] Aspirin EC [Ecotrin Low Dose] 81 mg PO DAILY 02/21/22 [History] Glucagon Emergency Kit 1 mg IM ONCE PRN 02/21/22 [History] Escitalopram [Lexapro] 10 mg PO DAILY 01/01/23 [History] ALPRAZolam [Xanax] 0.5 mg PO HS PRN 06/17/23 [History] Cholecalciferol [Vitamin D3 (25 Mcg = 1000 Iu)] 50 mcg PO DAILY 06/17/23 [History] Rosuvastatin [Crestor] 10 mg PO HS 06/17/23 [History] Tamsulosin [Flomax] 0.4 mg PO HS 06/17/23 [History] Cetirizine HCl [Zyrtec] 10 mg PO DAILY 09/22/23 [History] Folic Acid/Vit B Complex and C [Nephro-Pooja Tablet] 0.8 mg PO DAILY 09/22/23 [History] Torsemide [Demadex] 40 mg PO SUMOWEFR 09/22/23 [History] Calcium Carbonate [Tums] 1,000 mg PO AC-TID 09/28/23 [History] Acetaminophen Tab [Tylenol] 1,000 mg PO Q6HR PRN tab 10/24/23 [Rx] Clopidogrel [Plavix] 75 mg PO DAILY #30 tab 10/24/23 [Rx] Pantoprazole [Protonix] 40 mg PO AC-BRKFST #30 tab 10/24/23 [Rx] Metoprolol Tartrate [Lopressor] 12.5 mg PO HS 10/29/23 [History] Metoprolol Tartrate [Lopressor] 25 mg PO DAILY 10/29/23 [History] HYDROcodone/APAP 5-325MG [[place] 5-325] 1 each PO Q4-6H PRN #18 tab 10/30/23 [Rx] Follow up Appointment(s)/Referral(s): Gila Subramanian, DOMINGO [Nurse Practitioner] - 11/01/23 11:00 am (You will be seen in the surgeon's office behind the hospital in [facility], [address] [place] [address] [address]. Office phone number is ; YOU MAY KEEP OR CANCEL THIS APPOINTMENT SINCE YOU WERE SEEN IN THE HOSPITAL 10/30/23) Rehab [facility],Cardiac [NON-STAFF] - 4 Weeks (You will receive a phone call in approximately 4-6 weeks for evaluation for cardiac rehab) Shiraz Castle DO [STAFF PHYSICIAN] - 11/11/23 11:15 am Marlon Valentino DO [Primary Care Provider] - 1-2 days [facility] [NON-STAFF] - 1-2 Days Frederic Freeman MD [STAFF PHYSICIAN] - 11/14/23 2:00 pm Leilani Potter MD [STAFF PHYSICIAN] - 11/15/23 10:15 am Activity/Diet/Wound Care/Special Instructions: DISCHARGE INSTRUCTIONS: 1. No driving for 4 weeks, or until physician gives their ok. 2. The patient should sleep in their own bed, no medical bed needed. 3. Stairs are not an issue. If the bedroom is upstairs, it is advised that the patient go up at night and down in the morning for the first week. Go slowly, using handrail and take 1 step at a time. 4. ENMA hose are to be worn for 30 days post surgery or until physician discontinues. 5. Heart hugger is to be worn 100% of the time until physician discontinues.(except when showering) 6. No lifting, pushing, or pulling more than 10 pounds for 12 weeks. The physician will advise of any restriction changes. 7. The patient is expected to continue the prescribed walking program. 8. Continue pain control per as needed orders. 9. Continue with incentive spirometry and splinting/heart hugger until otherwise directed by the physician. 10. Must shower daily using liquid antibacterial soap 11. Routine sternal incision care. No powders, lotions, ointments on incisions. No dressings are necessary on incisions unless they are draining. Dermabond tape is to remain on sternal incision until surgeon follow-up. 12. Please call surgeon/[facility] [employer] for temp greater than 101 F or purulent drainage from incisions. 13. You should weigh yourself daily, record and bring log with you to follow up appointments. 14. All prescriptions given by surgeon for 30 days. Refills need to be filled through patients transporter/primary care physician. 15. A Red armband has been placed on the patient. It should be worn for 30 days post discharge from surgery and will be removed by the cardiac surgeons. If an ER visit is necessary, please make sure the number on the Red armband is called before going to ER. 16. You have been referred to and are expected to begin Cardiac Rehab in approximately 4-6 weeks. 17. Quitting smoking is the most important step you can take to improve your health. For additional information and assistance to quit smoking, please call the [place] tobacco quit line (8-352-JMLI-NOW/ ) or online: [email or web address] HOME HEALTH SERVICES TO PROVIDE: RN SKILLED HOME CARE SERVICES FOR POST-OP SURGICAL PATIENTS WITH THE FOLLOWING: Coronary Artery Bypass Surgery (CABG), Mitral Valve Replacement/Repair ( MVR), Aortic Valve Replacement/Repair (AVR) RN TO CONTINUE EDUCATION FROM ``ROAD TO A HEALTH HEART PATIENT EDUCATION MANUAL (GIVEN TO PATIENT IN THE HOSPITAL) MEDICATION RECONCILIATION WITH EDUCATION NEEDED ON FIRST HOME VISIT EMPHASIZE IMPORTANCE OF WEARING BREAST SUPPORT/HEART HUGGER ENCOURAGE USE OF INCENTIVE SPIROMETER 10 X EVERY HOUR WHILE AWAKE ENCOURAGE UTILIZATION OF LOWER EXTREMITY COMPRESSION STOCKINGS/ENMA HOSE and ELEVATE LEGS ABOVE LEVEL OF HEART WHILE AT REST. ENCOURAGE AMBULATION 3-5x/day INCREASING TOLERATES, WHILE AVOIDING EXTREMES IN TEMPERATURE FREQUENCY: RN TO OPEN THE PATIENT WITHIN 24 HOURS OF DISCHARGE FROM THE HOSPITAL WITH [place] [facility] [place] TO VISIT 2-3 X A WEEK FOR 4 WEEKS ESTABLISHED BY PATIENT NEEDS. LABORATORY: CBC, CMP TO BE DRAWN ON THE THIRD DAY HOME, (RAN STAT) FAX RESULTS TO [phone]. TELEHEALTH PARAMETERS: WEIGHT: NOTIFY MD OF WEIGHT GAIN OF 2 LBS IN 24 HOURS OR 5 LBS IN ONE WEEK HR: NOTIFY MD OF HR <55 BPM OR HR>100 BPM BP: NOTIFY MD IF BP <90/55 OR BP>140/100 O2 SAT: NOTIFY MD IF PO2<93% ON ROOM AIR SEND TELEHEALTH REPORT TO [employer] SENIOR SERGEANT AND CARDIOVASCULAR SURGEON THE FIRST WEEK OF CARE AND THEN BI-WEEKLY. PLEASE ADDITIONALLY COMMUNICATE ANY ABNORMALS AND NEW FINDINGS TO THE SURGEONS OFFICE. Discharge Disposition: HOME WITH HOME HEALTH SERVICES
--- NOTE | 2023-10-30 11:06 | P.NPCON ---
History of Present Illness - Reason for Consult end stage renal disease - History of Present Illness patient is a 72-year-old male with end-stage renal disease on hemodialysis on a Tuesday schedule. Patient is status post coronary artery bypass surgeryon 10/17/2023. Patient is admitted to the hospital with complaints of significant pain. No shortness of breath. He had missed his hem odialysis yesterday and was therefore dialyzed in the hospital last night. Pain is much better controlled now. Patient has been evaluated by cardiothoracic surgery and pain medications have been adjusted. Patient will be discharged home today. Review of Systems as per HPI Past Medical History Past Medical History: Blood Disorder, Coronary Artery Disease (CAD), Chest Pain / Angina, Heart Failure, COPD, Diabetes Mellitus, Dialysis, Hearing Disorder / Deafness, Hyperlipidemia, Hypertension, Myocardial Infarction ([place]), Osteoarthr itis (OA), Renal Disease, Sleep Apnea/CPAP/BIPAP Additional Past Medical History / Comment(s): has insulin pump and contiunuous blood glucose monitor,fell at home on Tuesday10-10-23"got dizzy"-no injury,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. Chronic renal failure, dialysis [facility] normally. Patient has insulin pump. Has CPAP, occasionally uses. Neuropathy in feet and hands. Poor hearing. Last Myocardial Infarction Date:: History of Any Multi-Drug Resistant Organisms: None Reported Past Surgical History: Cholecystectomy, Coronary Bypass/CABG, Heart Catheterization, Heart Catheterization With Stent, Orthopedic Surgery Additional Past Surgical History / Comment(s): Shoulder surgery-no hardware, hemorrhoidectomy, eye surgery,4 cardiac stents,AV fistula left forearm, double vessle CABG 10/17/23 Past Anesthesia/Blood Transfusion Reactions: No Reported Reaction Additional Past Anesthesia/Blood Transfusion Reaction / Comment(s): Never had a blood transfusion. Date of Last Stent Placement:: Past Psychological History: No Psychological Hx Reported Additional Psychological History / Comment(s): Shopping and crowds bother patient. Smoking Status: Former smoker Past Alcohol Use History: None Reported Additional Past Alcohol Use History / Comment(s): Quit smoking in 1980. Past Drug Use History: None Reported - Past Family History Father Family Medical History: Cancer Additional Family Medical History / Comment(s): Bladder cancer. Mother Family Medical History: Cancer, Diabetes Mellitus Additional Family Medical History / Comment(s): Pancreatic cancer. Medications and Allergies Home Medications Medication Instructions Recorded Confirmed Type Ezetimibe [Zetia] 10 mg PO DAILY 05/19/16 10/29/23 History Ferrous Sulfate [Iron (65 MG 325 mg PO DAILY 05/19/16 10/29/23 History Elemental)] Insulin Aspart (For Pump) [NovoLOG 0.01 unit SQ-PUMP CONTINUOUS 05/28/18 10/29/23 History (For Pump)] Pramipexole [Mirapex] 0.5 mg PO BID PRN 05/02/19 10/29/23 History Albuterol Inhaler [Ventolin Hfa 2 puff INHALATION RT-Q4H PRN 08/10/21 10/29/23 History Inhaler] Aspirin EC [Ecotrin Low Dose] 81 mg PO DAILY 02/21/22 10/29/23 History Glucagon Emergency Kit 1 mg IM ONCE PRN 02/21/22 10/29/23 History Escitalopram [Lexapro] 10 mg PO DAILY 01/01/23 10/29/23 History ALPRAZolam [Xanax] 0.5 mg PO HS PRN 06/17/23 10/29/23 History Cholecalciferol [Vitamin D3 (25 50 mcg PO DAILY 06/17/23 10/29/23 History Mcg = 1000 Iu)] Rosuvastatin [Crestor] 10 mg PO HS 06/17/23 10/29/23 History Tamsulosin [Flomax] 0.4 mg PO HS 06/17/23 10/29/23 History Cetirizine HCl [Zyrtec] 10 mg PO DAILY 09/22/23 10/29/23 History Folic Acid/Vit B Complex and C 0.8 mg PO DAILY 09/22/23 10/29/23 History [Nephro-Pooja Tablet] Torsemide [Demadex] 40 mg PO SUMOWEFR 09/22/23 10/29/23 History Calcium Carbonate [Tums] 1,000 mg PO AC-TID 09/28/23 10/29/23 History Acetaminophen Tab [Tylenol] 1,000 mg PO Q6HR PRN tab 10/24/23 10/29/23 Rx Clopidogrel [Plavix] 75 mg PO DAILY #30 tab 10/24/23 10/29/23 Rx Pantoprazole [Protonix] 40 mg PO AC-BRKFST #30 tab 10/24/23 10/29/23 Rx Metoprolol Tartrate [Lopressor] 12.5 mg PO HS 10/29/23 10/29/23 History Metoprolol Tartrate [Lopressor] 25 mg PO DAILY 10/29/23 10/29/23 History HYDROcodone/APAP 5-325MG [[place] 1 each PO Q4-6H PRN #18 tab 10/30/23 Rx 5-325] Allergies Allergy/AdvReac Type Severity Reaction Status Date / Time zolpidem [From Ambien] Allergy Hallucinati Verified 10/29/23 11:35 ons atorvastatin [From Lipitor] AdvReac jt and Verified 10/29/23 11:34 muscle pain baclofen AdvReac caused a Verified 10/29/23 11:34 fall Physical Exam Vitals: Vital Signs Temp Pulse Pulse Pulse Pulse Resp BP 10/30/23 08:35 97.6 F 83 83 18 10/30/23 04:00 98.2 F 61 19 10/29/23 23:48 98.1 F 63 19 10/29/23 22:11 97.6 F 61 18 10/29/23 22:08 98.2 F 63 19 10/29/23 21:35 67 18 123/49 10/29/23 20:31 63 18 121/53 10/29/23 16:21 58 L 16 127/58 10/29/23 14:00 89 16 133/54 10/29/23 13:00 58 L 14 131/53 10/29/23 11:54 62 10/29/23 11:32 97.8 F 66 20 138/70 BP BP Pulse Ox 10/30/23 08:35 145/67 99 10/30/23 04:00 132/61 98 10/29/23 23:48 128/60 97 10/29/23 22:11 137/49 10/29/23 22:08 128/60 99 10/29/23 21:35 96 10/29/23 20:31 99 10/29/23 16:21 98 10/29/23 14:00 95 10/29/23 13:00 91 L 10/29/23 11:54 10/29/23 11:32 99 Intake and Output 10/29/23 10/30/23 10/30/23 22:59 06:59 14:59 Intake Total 800 358 Output Total 3510 200 Balance -2710 -200 358 Intake: Oral 358 Hemodialysis 800 Output: Urine 300 200 Hemodialysis 3210 Other: Voiding Method Toilet Toilet Weight 99.79 kg 100.6 kg patient is awake, comfortable, alert oriented 3 No acute distress Examination of the heart S1 and S2 Examination of the lungs bilateral breath sounds are heard Abdomen is soft nontender Examination of lower extremities shows no significant edema 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 End-stage renal disease on hemodialysis on a Tuesday [facility] 2. Postop pain, now controlled. 3. CK D mineral bone disorder 4. Status post coronary artery bypass surgery on 10/17/2023 Plan: patient can be discharged from nephrology standpoint and follow-up in the dialysis unit for hemodialysis on Tuesday. Pain medications as per surgery
[2023-10-30 11:18] LABS: Potassium 4.1 mmol/L (3.5-5.1)
[2023-10-30 11:47] LABS: Glucose,Whole Blood 196 mg/dL (70-110)
[2023-10-30] MEDS ORDERED: TORSEMIDE 20 MG TAB PO SCH (15:10)
== END 2023-10-30 12:34 | disposition home health service (06) ==
LOC: EC 11:29 → 3SCARD 13:55
PROVIDERS: ADMIT Student in an Organized Health Care Education/Training Program; ATTEND Student in an Organized Health Care Education/Training Program
DX: R07.9 Chest pain, unspecified (principal); R07.89 Other chest pain; G89.18 Other acute postprocedural pain; N18.6 End stage renal disease; Z99.2 Dependence on renal dialysis; E11.22 Type 2 diabetes mellitus with diabetic chronic kidney disease; I50.9 Heart failure, unspecified
CPT/HCPCS: 96374; 96372 ×3; 99285; 36415; 94640; 93005; 80048 ×2; 83735; 84484; 85025 ×2; 71046; G0378 ×2; J1644 ×2; J2270; 90935

== ENCOUNTER 2024-02-16 16:40 | Inpatient (IN) | payer MEDICARE ==
[2024-02-16] MEDS: NITROGLYCERIN OINT 1 INCH/GM PACKET TOPICAL STA (16:50)
--- NOTE | 2024-02-16 16:59 | ED ---
General Adult HPI - General Chief complaint: Chest Pain Stated complaint: Chest Pain Time Seen by Provider: 02/16/24 16:40 Source: patient, EMS, RN notes reviewed, old records reviewed Mode of arrival: EMS Limitations: no limitations - History of Present Illness Initial comments: Is a 73-year-old male who presents to the emergency department the past medical history significant for bypass surgery as well as diabetes. Patient states today he was sleeping woke up and he had chest pain which made him short of breath and he was having a cold sweat. Patient states when EMS arrived they gave him aspirin and nitroglycerin and took his pain away completely. Patient denies any recent fever chills or cough. Patient denies being short of breath now. Patient [place] any chest pain at this time. Patient has no other complaints currently. - Related Data Home Medications Medication Instructions Recorded Confirmed Ezetimibe [Zetia] 10 mg PO DAILY 05/19/16 02/16/24 Ferrous Sulfate [Iron (65 MG 325 mg PO DAILY 05/19/16 02/16/24 Elemental)] Insulin Aspart (For Pump) [NovoLOG 0.01 unit SQ-PUMP CONTINUOUS 05/28/18 02/16/24 (For Pump)] Pramipexole [Mirapex] 0.5 mg PO BID PRN 05/02/19 02/16/24 Albuterol Inhaler [Ventolin Hfa 2 puff INHALATION RT-Q4H PRN 08/10/21 02/16/24 Inhaler] Aspirin EC [Ecotrin Low Dose] 81 mg PO DAILY 02/21/22 02/16/24 Glucagon Emergency Kit 1 mg IM ONCE PRN 02/21/22 02/16/24 Escitalopram [Lexapro] 10 mg PO DAILY 01/01/23 02/16/24 ALPRAZolam [Xanax] 0.5 mg PO HS PRN 06/17/23 02/16/24 Cholecalciferol [Vitamin D3 (25 50 mcg PO DAILY 06/17/23 02/16/24 Mcg = 1000 Iu)] Rosuvastatin [Crestor] 10 mg PO HS 06/17/23 02/16/24 Tamsulosin [Flomax] 0.4 mg PO HS 06/17/23 02/16/24 Cetirizine HCl [Zyrtec] 10 mg PO DAILY 09/22/23 02/16/24 Folic Acid/Vit B Complex and C 0.8 mg PO DAILY 09/22/23 02/16/24 [Nephro-Pooja Tablet] Torsemide [Demadex] 40 mg PO SUMOWEFR 09/22/23 02/16/24 Metoprolol Tartrate [Lopressor] 12.5 mg PO HS 10/29/23 02/16/24 Metoprolol Tartrate [Lopressor] 25 mg PO DAILY 10/29/23 02/16/24 Calcium Acetate [Phoslo] 667 mg PO TID-W/MEALS 02/16/24 02/16/24 Isosorbide Mononitrate ER [Imdur] 30 mg PO DIRECTED 02/16/24 02/16/24 Previous Rx's Medication Instructions Recorded Acetaminophen Tab [Tylenol] 1,000 mg PO Q6HR PRN tab 10/24/23 Clopidogrel [Plavix] 75 mg PO DAILY #30 tab 10/24/23 Pantoprazole [Protonix] 40 mg PO AC-BRKFST #30 tab 10/24/23 HYDROcodone/APAP 5-325MG [[place] 1 each PO Q4-6H PRN #18 tab 10/30/23 5-325] Allergies Allergy/AdvReac Type Severity Reaction Status Date / Time zolpidem [From Ambien] Allergy Hallucinati Verified 02/16/24 17:33 ons atorvastatin [From Lipitor] AdvReac jt and Verified 02/16/24 17:33 muscle pain baclofen AdvReac caused a Verified 02/16/24 17:33 fall Review of Systems ROS Statement: Those systems with pertinent positive or pertinent negative responses have been documented in the HPI. ROS Other: All systems not noted in ROS Statement are negative. Past Medical History Past Medical History: Blood Disorder, Coronary Artery Disease (CAD), Chest Pain / Angina, Heart Failure, COPD, Diabetes Mellitus, Dialysis, Hearing Disorder / Deafness, Hyperlipidemia, Hypertension, Myocardial Infarction ([place]), Osteoarthritis (OA), Renal Disease, Sleep Apnea/CPAP/BIPAP Additional Past Medical History / Comment(s): has insulin pump and contiunuous b lood glucose monitor,fell at home on Tuesday10-10-23"got dizzy"-no injury,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. Chronic renal failure, dialysis [facility] normally. Patient has insulin pump. Has CPAP, occasionally uses. Neuropathy in feet and hands. Poor hearing. Last Myocardial Infarction Date:: History of Any Multi-Drug Resistant Organisms: None Reported Past Surgical History: Cholecystectomy, Coronary Bypass/CABG, Heart Catheter ization, Heart Catheterization With Stent, Orthopedic Surgery Additional Past Surgical History / Comment(s): Shoulder surgery-no hardware, hemorrhoidectomy, eye surgery,4 cardiac stents,AV fistula left forearm, double vessle CABG 10/17/23 Past Anesthesia/Blood Transfusion Reactions: No Reported Reaction Additional Past Anesthesia/Blood Transfusion Reaction / Comment(s): Never had a blood transfusion. Date of Last Stent Placement:: Past Psychological History: No Psychological Hx Reported Smoking Status: Former smoker Past Alcohol Use History: None Reported Past Drug Use History: None Reported - Past Family History Father Family Medical History: Cancer Additional Family Medical History / Comment(s): Bladder cancer. Mother Family Medical History: Cancer, Diabetes Mellitus Additional Family Medical History / Comment(s): Pancreatic cancer. General Exam - General Exam Comments Initial Comments: GENERAL: Patient is well-developed and well-nourished. Patient is nontoxic and well- hydrated and is in no acute distress. ENT: Neck is soft and supple. No significant lymphadenopathy is noted. Oropharynx is clear. Moist mucous membranes. Neck has full range of motion without el iciting any pain. EYES: The sclera were anicteric and conjunctiva were pink and moist. Extraocular movements were intact and pupils were equal round and reactive to light. Eyelids were unremarkable. PULMONARY: Unlabored respirations. Good breath sounds bilaterally. No audible rales rhonchi or wheezing was noted. CARDIOVASCULAR: There is a regular rate and rhythm without any murmurs gallops or rubs. ABDOMEN: Soft and nontender with normal bowel sounds. SKIN: Skin is clear with no lesions or rashes and otherwise unremarkable. NEUROLOGIC: Patient is alert and oriented x3. Cranial nerves II through XII are grossly intact. Motor and sensory are also intact. Normal speech, volume and content. Symmetrical smile. MUSCULOSKELETAL: Normal extremities with adequate strength and full range of motion. No lower extremity swelling or edema. No calf tenderness. LYMPHATICS: No significant lymphadenopathy is noted PSYCHIATRIC: Normal psychiatric evaluation. Limitations: no limitations Course Vital Signs 02/16/24 16:48 Temperature 97.1 F L Pulse Rate 67 Respiratory 18 Rate Blood Pressure 135/62 O2 Sat by Pulse 100 Oximetry Medical Decision Making - Medical Decision Making EKG is interpreted by myself read EKG shows a sinus rhythm at 69 bpm ME 277 QRS is 162 QT interval is 473 QTc is 492. Patient EKG shows a right bundle branch block. There is no ST segment elevation Was pt. sent in by a medical professional or institution (CLINTON Reyes, [employer] DIRECTOR, urgent care, hospital, or care home...) When possible be specific @ -No Did you speak to anyone other than the patient for history (EMS, parent, family, police, friend...)? What history was obtained from this source @ -No Did you review nursing and triage notes (agree or disagree)? Why? @ -I reviewed and agree with nursing and triage notes Were old charts reviewed (outside hosp., previous admission, EMS record, old EKG, old radiological studies, urgent care reports/EKG's, care home records)? Report findings @ -No old charts were reviewed Differential Diagnosis? @ -Differential Chest Pain: Stable Angina, Unstable Angina, STEMI, NSTEMI Aortic Dissection, Pneumothorax, Musculoskeletal, Esophageal Spasm GERD, Cholecystitis, Pancreatitis, Zoster, this is not meant to be an all-inclusive list. EKG interpreted by me (3pts min.). @ -As above X-rays interpreted by me (1pt min.). @ -Chest x-ray shows no acute normality CT interpreted by me (1pt min.). @ -None done U/S interpreted by me (1pt. min.). @ -None done What testing was considered but not performed or refused? (CT, X-rays, U/S, labs)? Why? @ -None What meds were considered but not given or refused? Why? @ -None Did you discuss the management of the patient with other professionals (professionals i.e. CLINTON Reyes, [employer] DIRECT[employer], lab, RT, psych nurse, social media marketing analyst, hat finishing materials preparer, teacher, policy officer, vocational case manager)? Give summary @ -Spoke with Dr. Fung and he agreed to admit the patient Was smoking cessation discussed for >3mins.? @ -No Was critical care preformed (if so, how long)? @ -No Were there social determinants of health that impacted care today? How? (Homelessness, low income, unemployed, alcoholism, drug addiction, transportation, low edu. Level, literacy, decrease access to med. care, senior care, rehab)? @ -No Was there de-escalation of care discussed even if they declined (Discuss DNR or withdrawal of care, Hospice)? DNR status @ -No What co-morbidities impacted this encounter? (DM, HTN, Smoking, COPD, CAD, Cancer, CVA, ARF, Chemo, Hep., AIDS, mental health diagnosis, sleep apnea, morbid obesity)? @ -None Was patient admitted / discharged? Hospital course, mention meds given and route, prescriptions, significant lab abnormalities, going to OR and other pertinent info. @ -Patient has been chest pain-free throughout his ED course. Patient had Nitropaste placed. He already had aspirin in the ambulance. Patient will be admitted to Dr. Fung and cardiology will be consulted serial enzymes will be drawn throughout the night Undiagnosed new problem with uncertain prognosis? @ -No Drug Therapy requiring intensive monitoring for toxicity (Heparin, Nitro, Insulin, Cardizem)? @ -No Were any procedures done? @ -No Diagnosis/symptom? @ -Chest pain Acute, or Chronic, or Acute on Chronic? @ -Acute Uncomplicated (without systemic symptoms) or Complicated (systemic symptoms)? @ -Complicated Side effects of treatment? @ -No Exacerbation, Progression, or Severe Exacerbation? @ -No Poses a threat to life or bodily function? How? (Chest pain, [place], [place], pneumonia, PE, COPD, DKA, ARF, appy, cholecystitis, CVA, Diverticulitis, Homicidal, Suicidal, threat to staff... and all critical care pts) @ -Yes this could lead to an NH and endorgan dysfunction - Lab Data Result diagrams: 02/16/24 16:51 02/16/24 16:51 Lab Results 02/16/24 02/16/24 02/16/24 Range/Units 16:51 16:51 16:51 WBC 4.5 (3.8-10.6) k/uL RBC 3.83 L (4.30-5.90) m/uL Hgb 12.1 L (13.0-17.5) gm/dL Hct 36.4 L (39.0-53.0) % MCV 95.2 (80.0-100.0) fL MCH 31.5 (25.0-35.0) pg MCHC 33.1 (31.0-37.0) g/dL RDW 15.0 (11.5-15.5) % Plt Count 192 (150-450) k/uL MPV 8.1 Neutrophils % 59 % Lymphocytes % 26 % Monocytes % 9 % Eosinophils % 2 % Basophils % 1 % Neutrophils # 2.6 (1.3-7.7) k/uL Lymphocytes # 1.2 (1.0-4.8) k/uL Monocytes # 0.4 (0-1.0) k/uL Eosinophils # 0.1 (0-0.7) k/uL Basophils # 0.0 (0-0.2) k/uL PT 10.8 (10.0-12.5) sec INR 1.0 (<1.2) APTT 25.3 (22.0-30.0) sec Sodium 136 L (137-145) mmol/L Potassium 4.2 (3.5-5.1) mmol/L Chloride 96 L (98-107) mmol/L Carbon Dioxide 33 H (22-30) mmol/L Anion Gap 7 mmol/L BUN 27 H (9-20) mg/dL Creatinine 2.62 H (0.66-1.25) mg/dL Est GFR (CKD-EPI)AfAm 27 (>60 ml/min/1.73 sqM) Est GFR (CKD-EPI)NonAf 23 (>60 ml/min/1.73 sqM) Glucose 413 H (74-99) mg/dL Calcium 8.6 (8.4-10.2) mg/dL Magnesium 2.0 (1.6-2.3) mg/dL Total Bilirubin 0.5 (0.2-1.3) mg/dL AST 27 (17-59) U/L ALT 21 (4-49) U/L Alkaline Phosphatase 106 (38-126) U/L Troponin I (0.000-0.034) ng/mL Total Protein 7.2 (6.3-8.2) g/dL Albumin 4.0 (3.5-5.0) g/dL 02/16/24 Range/Units 16:51 WBC (3.8-10.6) k/uL RBC (4.30-5.90) m/uL Hgb (13.0-17.5) gm/dL Hct (39.0-53.0) % MCV (80.0-100.0) fL MCH (25.0-35.0) pg MCHC (31.0-37.0) g/dL RDW (11.5-15.5) % Plt Count (150-450) k/uL MPV Neutrophils % % Lymphocytes % % Monocytes % % Eosinophils % % Basophils % % Neutrophils # (1.3-7.7) k/uL Lymphocytes # (1.0-4.8) k/uL Monocytes # (0-1.0) k/uL Eosinophils # (0-0.7) k/uL Basophils # (0-0.2) k/uL PT (10.0-12.5) sec INR (<1.2) APTT (22.0-30.0) sec Sodium (137-145) mmol/L Potassium (3.5-5.1) mmol/L Chloride (98-107) mmol/L Carbon Dioxide (22-30) mmol/L Anion Gap mmol/L BUN (9-20) mg/dL Creatinine (0.66-1.25) mg/dL Est GFR (CKD-EPI)AfAm (>60 ml/min/1.73 sqM) Est GFR (CKD-EPI)NonAf (>60 ml/min/1.73 sqM) Glucose (74-99) mg/dL Calcium (8.4-10.2) mg/dL Magnesium (1.6-2.3) mg/dL Total Bilirubin (0.2-1.3) mg/dL AST (17-59) U/L ALT (4-49) U/L Alkaline Phosphatase (38-126) U/L Troponin I 0.030 (0.000-0.034) ng/mL Total Protein (6.3-8.2) g/dL Albumin (3.5-5.0) g/dL Disposition Clinical Impression: Chest pain Disposition: ADMITTED IP TO [facility] Time of Disposition: 18:13
[2024-02-16 17:04] LABS: Basophils % (A) 1 %; Eosinophils # (A) 0.1 k/uL (0-0.7); Eosinophils % (A) 2 %; HCT 36.4 % (39.0-53.0); HGB 12.1 gm/dL (13.0-17.5); Lymphocytes # (A) 1.2 k/uL (1.0-4.8); Lymphocytes % (A) 26 %; MCH 31.5 pg (25.0-35.0); MCHC 33.1 g/dL (31.0-37.0); MCV 95.2 fL (80.0-100.0); Mean Platelet Volume 8.1; Monocytes # (A) 0.4 k/uL (0-1.0); Monocytes % (A) 9 %; Neutrophils # (A) 2.6 k/uL (1.3-7.7); Neutrophils % (A) 59 %; Platelet Count 192 k/uL (150-450); RBC 3.83 m/uL (4.30-5.90); WBC 4.5 k/uL (3.8-10.6)
--- NOTE | 2024-02-16 17:11 | XR ---
EXAMINATION TYPE: XR chest 2V DATE OF EXAM: 02/16/2024 COMPARISON: 10/29/2023 INDICATION: Chest pain TECHNIQUE: Frontal and lateral views of the chest are obtained. FINDINGS: The heart size is normal. The pulmonary vasculature is normal. Bibasilar infiltrates are present. Correlate for atelectasis or pneumonia. IMPRESSION: 1. Bibasilar infiltrates are present. Correlate for atelectasis or pneumonia. Follow-up recommended.
[2024-02-16 17:17] LABS: ALT 21 U/L (4-49); AST 27 U/L (17-59); African American GFR (CKD) 27 (>60 ml/min/1.73 sqM); Alkaline Phosphatase 106 U/L (38-126); Anion Gap 7 mmol/L; Blood Urea Nitrogen 27 mg/dL (9-20); Calcium 8.6 mg/dL (8.4-10.2); Carbon Dioxide 33 mmol/L (22-30); Chloride 96 mmol/L (98-107); Glucose 413 mg/dL (74-99); Non-African American GFR(CKD) 23 (>60 ml/min/1.73 sqM); Potassium 4.2 mmol/L (3.5-5.1); Sodium 136 mmol/L (137-145); Total Bilirubin 0.5 mg/dL (0.2-1.3); Total Protein 7.2 g/dL (6.3-8.2)
[2024-02-16 17:18] LABS: Partial Thromboplastin Time 25.3 sec (22.0-30.0); Prothrombin Time 10.8 sec (10.0-12.5)
[2024-02-16] MEDS ORDERED: NITROGLYCERIN SL TABS 0.4 MG TAB SUBLINGUAL PRN (18:14)
[2024-02-16 20:17] LABS: Glucose,Whole Blood 316 mg/dL (70-110)
[2024-02-16] MEDS: INSULIN ASPART (NovoLOG) 100 UNIT/ML VIAL SQ SCH (21:59)
[2024-02-16] MEDS: HEPARIN SOD,PORK IN 0.45% NACL 25,000 UNIT in 0.45% NACL 1 250ML.BAG IV SCH (23:09)
--- NOTE | 2024-02-16 23:34 | P.HPIM ---
History of Present Illness H&P Date: 02/16/24 Chief Complaint: Chest pain Patient is a 73-year-old male with past medical history coronary disease status post stents in 2004, 2013 and CABG on 10/17/2023, ESRD on hemodialysis ([facility]), chronic diastolic heart failure with ejection fraction of 50 to 55%, type 2 diabetes on insulin pump, COPD and hypertension presented to ER with gradually worsening substernal chest pain. Patient endorsed 7 out of 10, constant, nonradiating, substernal chest pain which woke him up from his nap this afternoon at his home. He also endorsed mild shortness of breath and felt cold and clammy. Patient reports his chest pain subsided after he was given nitroglycerin by first responders intransit. Patient reports that he has been experiencing exertional chest pain since 2 weeks exacerbated with physical activity such as walking and working in garage and alleviated with rest. Patient is currently going for cardiac rehab s/p CABG on 10/17/2023. Patient denies nausea, vomiting, and peripheral edema. Patient denies any numbness or weakness in upper or lower extremities. No recent hospitalization or recent travel. Denies use of any illicit drug. At the time of interview, patient re ports no chest pain and no SOB. Chest x-ray in the ER shows by basilar infiltrates suspicious for atelectasis or pneumonia. EKG in the ER shows sinus rhythm with a heart rate of 69 bpm. First-degree AV block with AL interval 277 ms. Widened QRS complex of 162 ms due to right bundle branch block. Findings of LVH. Vitals: Tmax 97.6 F, heart rate 61, respiratory rate 18, blood pressure 134/76, oxygen saturation 99% on room air. Review of systems: Pertinent positives and negatives as discussed in HPI, a complete review of systems was performed and all other systems are negative. Social history: Tobacco: Quit in 1983, 1 pack/day x 20 years. Alcohol: None Recreational drugs: None Travel: None Occupation: Retired Family History: Noncontributory Physical examination: Vital signs reviewed General: non toxic, no distress, appears at stated age, normal weight Derm: no unusual rashes/lesions, warm Head: atraumatic, normocephalic, symmetric Eyes: EOMI, no lid lag, anicteric sclera, pupils equal round reactive to light ENT: Nose and ears atraumatic Neck: No cervical lymphadenopathy, trachea midline, supple Mouth: no lip lesion, mucus membranes moist Cardiovascular: S1S2 reg, grade 3 systolic murmur, positive dorsalis pedis pulse bilateral, bilateral grade 1 pitting edema Lungs: CTA bilateral, no rhonchi, no rales, no accessory muscle use Abdominal: soft, nontender to palpation, no guarding Ext: muscle strength 5 out of 5 in all 4 extremities grossly, no gross muscle atrophy, no contractures, Neuro: CN II-XI grossly intact, no gross focal neuro deficits Psych: Alert, oriented, appropriate affect Assessment/Plan: 73-year-old male with past medical history coronary disease status post stents in 2004, 2013 and CABG on 10/17/2023, ESRD on hemodialysis, chronic diastolic heart failure with ejection fraction of 50 to 55%, type 2 diabetes on insulin pump, COPD and hypertension presented to ER with gradually worsening substernal chest pain. # Unstable angina Started on Heparin infusion low dose Ordered echocardiogram for cardiac structural assessment Consult Cardiology Continue on nitro-bid ointment Continue with Aspirin 325 mg po daily Resume his home metoprolol 25mg po daily and 12.5mg po nightly Initiate Lipitor 80 mg po qhs Continue to monitor troponin I Continue with O2 administration with 2L via Nasal cannula #Type 2 DM, on Insulin pump Ordered HbA1C Started on sliding scale short acting insulin Continue to monitor Blood glucose levels Discontinue insulin pump #Elevated Bicarbonate, likely due to chronic hypercapnia secondary to COPD Continue to monitor bicarb levels Continue with O2 administration with 2L via Nasal cannula Resume his home medication albuterol 2 puffs every 4 hours #ESRD on hemodialysis Consult Nephrology Elevated BUN and Creatinine in light of ESRD Continue to monitor BMP #Hyponatermia At baseline Continue to monitor sodium levels #Chronic conditions GERD: Resume Protonix 40 mg p.o. daily BPH: Flomax 0.4 mg p.o. nightly Anxiety: escitalopram 10 mg p.o. daily and Xanax 0.5 mg p.o. nightly DVT prophylaxis: IV heparin The patient is admitted with an anticipated greater than 2 midnight stay for evaluation of chest pain likely ACS CODE STATUS: Full Discussed with: Patient Anticipated discharge place: Home Past Medical History Past Medical History: Blood Disorder, Coronary Artery Disease (CAD), Chest Pain / Angina, Heart Failure, COPD, Diabetes Mellitus, Dialysis, Hearing Disorder / Deafness, Hyperlipidemia, Hypertension, Myocardial Infarction ([place]), Osteoarthritis (OA), Renal Disease, Sleep Apnea/CPAP/BIPAP Additional Past Medical History / Comment(s): has insulin pump and contiunuous blood glucose monitor,fell at home on Tuesday10-10-23"got dizzy"-no injury,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. Chronic renal failure, dialysis [facility] normally. Patient has insulin pump. Has CPAP, occasionally uses. Neuropathy in feet and hands. Poor hearing. Last Myocardial Infarction Date:: History of Any Multi-Drug Resistant Organisms: None Reported Past Surgical History: Cholecystectomy, Coronary Bypass/CABG, Heart Catheterization, Heart Catheterization With Stent, Orthopedic Surgery Additional Past Surgical History / Comment(s): Shoulder surgery-no hardware, hemorrhoidectomy, eye surgery,4 cardiac stents,AV fistula left forearm, double vessle CABG 10/17/23 Past Anesthesia/Blood Transfusion Reactions: No Reported Reaction Additional Past Anesthesia/Blood Transfusion Reaction / Comment(s): Never had a blood transfusion. Date of Last Stent Placement:: Past Psychological History: No Psychological Hx Reported Smoking Status: Former smoker Past Alcohol Use History: None Reported Past Drug Use History: None Reported - Past Family History Father Family Medical History: Cancer Additional Family Medical History / Comment(s): Bladder cancer. Mother Family Medical History: Cancer, Diabetes Mellitus Additional Family Medical History / Comment(s): Pancreatic cancer. Medications and Allergies Home Medications Medication Instructions Recorded Confirmed Type Ezetimibe [Zetia] 10 mg PO DAILY 05/19/16 02/16/24 History Ferrous Sulfate [Iron (65 MG 325 mg PO DAILY 05/19/16 02/16/24 History Elemental)] Insulin Aspart (For Pump) [NovoLOG 0.01 unit SQ-PUMP CONTINUOUS 05/28/18 02/16/24 History (For Pump)] Pramipexole [Mirapex] 0.5 mg PO BID PRN 05/02/19 02/16/24 History Albuterol Inhaler [Ventolin Hfa 2 puff INHALATION RT-Q4H PRN 08/10/21 02/16/24 History Inhaler] Aspirin EC [Ecotrin Low Dose] 81 mg PO DAILY 02/21/22 02/16/24 History Glucagon Emergency Kit 1 mg IM ONCE PRN 02/21/22 02/16/24 History Escitalopram [Lexapro] 10 mg PO DAILY 01/01/23 02/16/24 History ALPRAZolam [Xanax] 0.5 mg PO HS PRN 06/17/23 02/16/24 History Cholecalciferol [Vitamin D3 (25 50 mcg PO DAILY 06/17/23 02/16/24 History Mcg = 1000 Iu)] Rosuvastatin [Crestor] 10 mg PO HS 06/17/23 02/16/24 History Tamsulosin [Flomax] 0.4 mg PO HS 06/17/23 02/16/24 History Cetirizine HCl [Zyrtec] 10 mg PO DAILY 09/22/23 02/16/24 History Folic Acid/Vit B Complex and C 0.8 mg PO DAILY 09/22/23 02/16/24 History [Nephro-Pooja Tablet] Torsemide [Demadex] 40 mg PO SUMOWEFR 09/22/23 02/16/24 History Acetaminophen Tab [Tylenol] 1,000 mg PO Q6HR PRN tab 10/24/23 02/16/24 Rx Clopidogrel [Plavix] 75 mg PO DAILY #30 tab 10/24/23 02/16/24 Rx Pantoprazole [Protonix] 40 mg PO AC-BRKFST #30 tab 10/24/23 02/16/24 Rx Metoprolol Tartrate [Lopressor] 12.5 mg PO HS 10/29/23 02/16/24 History Metoprolol Tartrate [Lopressor] 25 mg PO DAILY 10/29/23 02/16/24 History Calcium Acetate [Phoslo] 667 mg PO TID-W/MEALS 02/16/24 02/16/24 History HYDROcodone/APAP 5-325MG [[place] 1 tab PO Q4-6H PRN 02/16/24 02/16/24 History 5-325] Isosorbide Mononitrate ER [Imdur] 30 mg PO DAILY 02/16/24 02/16/24 History Allergies Allergy/AdvReac Type Severity Reaction Status Date / Time zolpidem [From Ambien] Allergy Hallucinati Verified 02/16/24 17:33 ons atorvastatin [From Lipitor] AdvReac jt and Verified 02/16/24 17:33 muscle pain baclofen AdvReac caused a Verified 02/16/24 17:33 fall Physical Exam Vitals: Vital Signs Temp Pulse Resp BP Pulse Ox 02/16/24 19:56 97.3 F L 61 18 134/76 99 02/16/24 19:49 61 18 134/76 99 02/16/24 16:48 97.1 F L 67 18 135/62 100 Intake and Output 02/16/24 02/16/24 02/16/24 06:59 14:59 22:59 Other: Weight 99.79 kg Results CBC & Chem 7: 02/16/24 16:51 02/16/24 16:51 Labs: Abnormal Lab Results - Last 24 Hours (Table) 02/16/24 02/16/24 02/16/24 Range/Units 16:51 16:51 20:14 RBC 3.83 L (4.30-5.90) m/uL Hgb 12.1 L (13.0-17.5) gm/dL Hct 36.4 L (39.0-53.0) % Sodium 136 L (137-145) mmol/L Chloride 96 L (98-107) mmol/L Carbon Dioxide 33 H (22-30) mmol/L BUN 27 H (9-20) mg/dL Creatinine 2.62 H (0.66-1.25) mg/dL Glucose 413 H (74-99) mg/dL POC Glucose (mg/dL) 316 H (70-110) mg/dL
[2024-02-16] MEDS: NITROGLYCERIN OINT 1 INCH/GM PACKET TOPICAL SCH (23:36)
[2024-02-17] MEDS ORDERED: ACETAMINOPHEN TAB 500 MG TAB PO PRN (00:21)
[2024-02-17] MEDS ORDERED: PRAMIPEXOLE 0.5 MG TAB PO PRN (00:21)
[2024-02-17] MEDS ORDERED: ALPRAZolam 0.5 MG TAB PO PRN (00:21)
[2024-02-17] MEDS ORDERED: IPRATROPIUM-ALBUTEROL 3 ML NEB INHALATION PRN (00:24)
[2024-02-17 01:05] LABS: Glucose,Whole Blood 52 mg/dL (70-110)
[2024-02-17] MEDS: DEXTROSE 50% SYRINGE 50 ML IVP ONE (01:11)
[2024-02-17 01:19] LABS: Glucose,Whole Blood 210 mg/dL (70-110)
[2024-02-17] MEDS: ATORVASTATIN 80 MG TAB PO SCH (01:19)
[2024-02-17 05:18] LABS: INR 1.1 (<1.2); Partial Thromboplastin Time 31.4 sec (22.0-30.0); Prothrombin Time 11.4 sec (10.0-12.5)
[2024-02-17] MEDS: HEPARIN SODIUM 1,000 UN/ML (10ML VL) IV PRN (05:36)
[2024-02-17] MEDS: PANTOPRAZOLE 40 MG TABLET PO SCH (05:36)
[2024-02-17 05:40] LABS: Glucose,Whole Blood 140 mg/dL (70-110)
[2024-02-17 08:41] LABS: HCT 32.5 % (39.6-50.0); HGB 10.9 g/dL (13.0-17.0); MCHC 33.5 g/dL (32.0-37.0); MCV 92.3 FL (80.0-97.0); Mean Platelet Volume 11.2 FL (9.5-12.2); NRBC Per 100 WBC 0 X 10*3/uL (0.00-0.01); Platelet Count 159 X 10*3/uL (140-440); RBC 3.52 X 10*6/uL (4.40-5.60); RDW 14.6 % (11.5-14.5); WBC 5.48 X 10*3/uL (4.50-10.00)
[2024-02-17 08:53] LABS: Chol/HDL Ratio 2.64 Ratio; LDL Cholesterol,Calculated 43.1 mg/dL (0.0-131.0); VLDL Calculation 14.14 mg/dL (5.00-40.00)
[2024-02-17] MEDS ORDERED: METOPROLOL TARTRATE 25 MG TAB PO SCH (09:00)
[2024-02-17] MEDS ORDERED: ISOSORBIDE MONONITRATE ER 30 MG TAB.ER.24H PO SCH (09:00)
[2024-02-17] MEDS ORDERED: ASPIRIN 325 MG TAB PO SCH (09:00)
[2024-02-17] MEDS: TORSEMIDE 20 MG TAB PO SCH (09:12)
[2024-02-17] MEDS: ASPIRIN 81 MG PO SCH (09:12)
[2024-02-17] MEDS: EZETIMIBE 10 MG TAB PO SCH (09:12)
[2024-02-17] MEDS: ESCITALOPRAM 10 MG TAB PO SCH (09:12)
[2024-02-17] MEDS: ISOSORBIDE MONONITRATE ER 60 MG TAB.ER.24H PO SCH (09:13)
[2024-02-17] MEDS: METOPROLOL TARTRATE 25 MG TAB PO SCH (09:13)
[2024-02-17] MEDS ORDERED: HEPARIN SODIUM 1,000 UN/ML (10ML VL) IV PRN ×2 (10:23→10:25)
[2024-02-17] MEDS ORDERED: REGADENOSON 0.4 MG/5 ML SYRINGE IV PRN (10:24)
[2024-02-17] MEDS ORDERED: CAFFEINE CITRATE 60 MG/3 ML VIAL IV PRN (10:24)
[2024-02-17] MEDS ORDERED: AMINOPHYLLINE 500 MG/20 ML VIAL IV PRN (10:24)
[2024-02-17] MEDS ORDERED: HEPARIN SOD,PORK IN 0.45% NACL 25,000 UNIT in 0.45% NACL 1 250ML.BAG IV SCH (10:30)
--- NOTE | 2024-02-17 10:42 | P.CRDCN ---
History of Present Illness History of present illness: HISTORY OF PRESENT ILLNESS: This is a 73-year-old male with a past medical history significant for CAD with 2 vessel CABG in September 2023, chronic kidney disease on hemodialysis, hypertension, hyperlipidemia, and diabetes. Patient follows in the office with Dr. Castle. We have been asked to see the patient in consultation for chest pain. Patient examined at the bedside. patient states yesterday he woke up and was having chest discomfort. He states the pain was in the middle of his chest and initially felt like gas pains. He decided to come to the hospital for further evaluation. The patient states he has had no further chest pain since being here. He denied any shortness of breath. Vital signs are currently stable. * EKG reveals sinus mechanism with right bundle branch block. No signs of acute ischemia. * Chest xray bibasilar infiltrates are present. Correlate for atelectasis or pneumonia. * Laboratory data: WBC 5.48. Hemoglobin 10.9. Platelet count 159. Sodium 136. Potassium 4.2. BUN 27. Creatinine 2.62.troponin 0.030. 0.038. 0.044. * Current home cardiac medications include Imdur 30 mg daily, Demadex 40 mg Tuesday, Crestor 10 mg at night, metoprolol tartrate 25 mg in the morning and 12.5 mg at night, Zetia 10 mg daily, Plavix 75 mg daily, aspirin 81 mg daily * patient underwent cardiac catheterization September 2023 revealed 60% mid to distal left main stenosis, 50-60% mid LAD stenosis, 100% circumflex stenosis, 50-60% mid RCA stenosis, I for abnormal of LAD.. * Patient underwent 2 vessel CABG on 10/17/2023 ( LAD and ramus intermedius) * echocardiogram completed in October 2023 revealed ejection fraction 50-55%, mild aortic stenosis REVIEW OF SYSTEMS: At the time of my exam: CONSTITUTIONAL: Denies fever or chills. HEENT: Denies blurred vision, vision changes, or eye pain. Denies hemoptysis CARDIOVASCULAR: Denies chest pain. Denies orthopnea. Denies PND. Denies palpitations RESPIRATORY: Denies shortness of breath. GASTROINTESTINAL: Denies abdominal pain. Denies nausea or vomiting. HEMATOLOGIC: Denies bleeding disorders. GENITOURINARY: Denies any blood in urine. SKIN: Denies pruitis. Denies rash. PHYSICAL EXAM: VITAL SIGNS: Reviewed. GENERAL: Well-developed in no acute distress. HEENT: Head is normocephalic. Pupils are equal, round. Sclerae anicteric. Mucous membranes of the mouth are moist. Neck supple. No JVD or thyromegaly LUNGS: Respirations even and unlabored. Lungs essentially clear to auscultation bilaterally. HEART: Regular rate and rhythm. S1 and S2 heard. ABDOMEN: Soft. Nondistended. Nontender. EXTREMITIES: Normal range of motion. No clubbing or cyanosis. Peripheral pulses intact. No lower extremity edema NEUROLOGIC: Awake and alert. Oriented x 3. ASSESSMENT: Chest pain Coronary artery disease with recent CABG 2 vessels, left internal thoracic artery to LAD and saphenous vein from aorta to ramus intermedius, September 2023 End-stage renal disease on hemodialysis Elevated troponins, flat, secondary to poor renal clearance, no evidence of myocardial injury or ischemia, no clinical significance Hypertension Hyperlipidemia Diabetes Mild aortic stenosis PLAN: Patient was evaluated this morning. Patient stated he had no further episodes of chest pain or pressure. Plan was to discharge home and have E[place]ice scan completed on an outpatient basis. However patient got up and he related this morning and began to have chest pain again which she states is similar to what he has been experiencing over the past couple weeks. Will hold discharge. Resume IV heparin. increase Imdur to 60 mg daily. Obtain 2-D echo to assess cardiac structure and function. Resume home cardiac medications. Will plan for Lexiscan stress test on Tuesday. If patient has further episodes of chest discomfort over the weekend, will plan for cardiac catheterization. Further recommendations pending patient's course Nurse practitioner note has been reviewed by physician. Signing provider agrees with the documented findings, assessment, and plan of care. Past Medical History Past Medical History: Blood Disorder, Coronary Artery Disease (CAD), Chest Pain / Angina, Heart Failure, COPD, Diabetes Mellitus, Dialysis, Hearing Disorder / Deafness, Hyperlipidemia, Hypertension, Myocardial Infarction ([place]), Osteoarthritis (OA), Renal Disease, Sleep Apnea/CPAP/BIPAP Additional Past Medical History / Comment(s): has insulin pump and contiunuous blood glucose monitor,fell at home on Tuesday10-10-23"got dizzy"-no injury,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. Chronic renal failure, dialysis [facility] normally. Patient has insulin pump. Has CPAP, occasionally uses. Neuropathy in feet and hands. Poor hearing. Last Myocardial Infarction Date:: History of Any Multi-Drug Resistant Organisms: None Reported Past Surgical History: Cholecystectomy, Coronary Bypass/CABG, Heart Catheterization, Heart Catheterization With Stent, Orthopedic Surgery Additional Past Surgical History / Comment(s): Shoulder surgery-no hardware, hemorrhoidectomy, eye surgery,4 cardiac stents,AV fistula left forearm, double vessle CABG 10/17/23 Past Anesthesia/Blood Transfusion Reactions: No Reported Reaction Additional Past Anesthesia/Blood Transfusion Reaction / Comment(s): Never had a blood transfusion. Date of Last Stent Placement:: Past Psychological History: No Psychological Hx Reported Smoking Status: Former smoker Past Alcohol Use History: None Reported Past Drug Use History: None Reported - Past Family History Father Family Medical History: Cancer Additional Family Medical History / Comment(s): Bladder cancer. Mother Family Medical History: Cancer, Diabetes Mellitus Additional Family Medical History / Comment(s): Pancreatic cancer. Medications and Allergies Home Medications Medication Instructions Recorded Confirmed Type Ezetimibe [Zetia] 10 mg PO DAILY 05/19/16 02/16/24 History Ferrous Sulfate [Iron (65 MG 325 mg PO DAILY 05/19/16 02/16/24 History Elemental)] Insulin Aspart (For Pump) [NovoLOG 0.01 unit SQ-PUMP CONTINUOUS 05/28/18 02/16/24 History (For Pump)] Pramipexole [Mirapex] 0.5 mg PO BID PRN 05/02/19 02/16/24 History Albuterol Inhaler [Ventolin Hfa 2 puff INHALATION RT-Q4H PRN 08/10/21 02/16/24 History Inhaler] Aspirin EC [Ecotrin Low Dose] 81 mg PO DAILY 02/21/22 02/16/24 History Glucagon Emergency Kit 1 mg IM ONCE PRN 02/21/22 02/16/24 History Escitalopram [Lexapro] 10 mg PO DAILY 01/01/23 02/16/24 History ALPRAZolam [Xanax] 0.5 mg PO HS PRN 06/17/23 02/16/24 History Cholecalciferol [Vitamin D3 (25 50 mcg PO DAILY 06/17/23 02/16/24 History Mcg = 1000 Iu)] Rosuvastatin [Crestor] 10 mg PO HS 06/17/23 02/16/24 History Tamsulosin [Flomax] 0.4 mg PO HS 06/17/23 02/16/24 History Cetirizine HCl [Zyrtec] 10 mg PO DAILY 09/22/23 02/16/24 History Folic Acid/Vit B Complex and C 0.8 mg PO DAILY 09/22/23 02/16/24 History [Nephro-Pooja Tablet] Torsemide [Demadex] 40 mg PO SUMOWEFR 09/22/23 02/16/24 History Acetaminophen Tab [Tylenol] 1,000 mg PO Q6HR PRN tab 10/24/23 02/16/24 Rx Clopidogrel [Plavix] 75 mg PO DAILY #30 tab 10/24/23 02/16/24 Rx Pantoprazole [Protonix] 40 mg PO AC-BRKFST #30 tab 10/24/23 02/16/24 Rx Metoprolol Tartrate [Lopressor] 12.5 mg PO HS 10/29/23 02/16/24 History Metoprolol Tartrate [Lopressor] 25 mg PO DAILY 10/29/23 02/16/24 History Calcium Acetate [Phoslo] 667 mg PO TID-W/MEALS 02/16/24 02/16/24 History HYDROcodone/APAP 5-325MG [[place] 1 tab PO Q4-6H PRN 02/16/24 02/16/24 History 5-325] Isosorbide Mononitrate ER [Imdur] 30 mg PO DAILY 02/16/24 02/16/24 History Allergies Allergy/AdvReac Type Severity Reaction Status Date / Time zolpidem [From Ambien] Allergy Hallucinati Verified 02/16/24 17:33 ons atorvastatin [From Lipitor] AdvReac jt and Verified 02/16/24 17:33 muscle pain baclofen AdvReac caused a Verified 02/16/24 17:33 fall Physical Exam Vitals: Vital Signs Temp Pulse Pulse Resp BP BP Pulse Ox 02/17/24 10:11 98.5 F 70 16 105/53 95 02/17/24 07:00 98 F 63 16 120/64 96 02/17/24 02:00 98.2 F 68 16 143/71 99 02/16/24 20:48 97.5 F L 62 16 153/78 94 L 02/16/24 19:56 97.3 F L 61 18 134/76 99 02/16/24 19:49 61 18 134/76 99 02/16/24 16:48 97.1 F L 67 18 135/62 100 Intake and Output 02/16/24 02/17/24 02/17/24 22:59 06:59 14:59 Intake Total 63.494 118 Balance 63.494 118 Intake: Intake, IV Titration 63.494 Amount Heparin Sod,Pork in 0.45% 63.494 NaCl 25,000 unit In 0.45 % NaCl 1 250ml.bag @ 10. 02 UNITS/KG/HR 9.999 mls/ hr IV .Q24H [facility] Rx#: [id number] Oral 118 Other: # Voids 0 2 Weight 99.79 kg Results 02/17/24 04:39 02/16/24 16:51 Cardiac Enzymes 02/16/24 02/16/24 02/16/24 Range/Units 16:51 16:51 19:52 AST 27 (17-59) U/L Troponin I 0.030 0.038 H* (0.000-0.034) ng/mL 02/16/24 Range/Units 22:33 AST (17-59) U/L Troponin I 0.044 H* (0.000-0.034) ng/mL Coagulation 02/16/24 02/17/24 Range/Units 16:51 04:39 PT 10.8 11.4 (10.0-12.5) sec APTT 25.3 31.4 H (22.0-30.0) sec Lipids 02/17/24 Range/Units 04:39 Triglycerides 70.70 (0.00-149.00) mg/dL Cholesterol 92.00 (0.00-200.00) mg/dL HDL Cholesterol 34.80 L (40.00-60.00) mg/dL Cholesterol/HDL Ratio 2.64 Ratio CBC 02/16/24 02/17/24 Range/Units 16:51 04:39 WBC 4.5 5.48 (3.8-10.6) k/uL RBC 3.83 L 3.52 L (4.30-5.90) m/uL Hgb 12.1 L 10.9 L (13.0-17.5) gm/dL Hct 36.4 L 32.5 L (39.0-53.0) % Plt Count 192 159 (150-450) k/uL Comprehensive Metabolic Panel 02/16/24 Range/Units 16:51 Sodium 136 L (137-145) mmol/L Potassium 4.2 (3.5-5.1) mmol/L Chloride 96 L (98-107) mmol/L Carbon Dioxide 33 H (22-30) mmol/L BUN 27 H (9-20) mg/dL Creatinine 2.62 H (0.66-1.25) mg/dL Glucose 413 H (74-99) mg/dL Calcium 8.6 (8.4-10.2) mg/dL AST 27 (17-59) U/L ALT 21 (4-49) U/L Alkaline Phosphatase 106 (38-126) U/L Total Protein 7.2 (6.3-8.2) g/dL Albumin 4.0 (3.5-5.0) g/dL Current Medications Generic Name Dose Route Start Last Admin Trade Name Freq PRN Reason Stop Dose Admin Acetaminophen 1,000 mg 02/17/24 00:21 Acetaminophen Tab 500 Mg Tab PO Q6HR PRN Fever and/ or Mild Pain Hydrocodone Bitart/Acetaminophen 1 each 02/17/24 00:21 Hydrocodone/Apap 5-325mg 1 Each Tab PO Q4H PRN Severe Breakthrough Pain Albuterol/Ipratropium 3 ml 02/17/24 00:24 Ipratropium-Albuterol 3 Ml Neb INHALATION RT-QID PRN Shortness Of Breath Or Wheezing Alprazolam 0.5 mg 02/17/24 00:21 Alprazolam 0.5 Mg Tab PO HS PRN Severe Anxiety Aspirin 81 mg 02/17/24 09:00 02/17/24 09:12 Aspirin 81 Mg PO 81 mg DAILY JOEY Administration Atorvastatin Calcium 80 mg 02/17/24 01:00 02/17/24 01:19 Atorvastatin 80 Mg Tab PO 80 mg HS JOEY Administration Ezetimibe 10 mg 02/17/24 09:00 02/17/24 09:12 Ezetimibe 10 Mg Tab PO 10 mg DAILY JOEY Administration Escitalopram Oxalate 10 mg 02/17/24 09:00 02/17/24 09:12 Escitalopram 10 Mg Tab PO 10 mg DAILY JOEY Administration Heparin Sodium (Porcine) 0 unit 02/16/24 22:41 02/17/24 05:36 Heparin Sodium 1,000 Un/Ml (10ml Vl) IV 4,000 unit PER PROTOCOL PRN Administration Low PTT Protocol Insulin Aspart 0 unit 02/16/24 21:00 02/17/24 06:12 Insulin Aspart (Novolog) 100 Unit/Ml Vial SQ Not Given ACHS [facility] Protocol Isosorbide Mononitrate 60 mg 02/17/24 09:00 02/17/24 09:13 Isosorbide Mononitrate Er 60 Mg Tab.Er.24h PO 60 mg DAILY JOEY Administration Metoprolol Tartrate 25 mg 02/17/24 09:00 02/17/24 09:13 Metoprolol Tartrate 25 Mg Tab PO 25 mg BID JOEY Administration Nitroglycerin 0.4 mg 02/16/24 18:14 Nitroglycerin Sl Tabs 0.4 Mg Tab SUBLINGUAL Q5M PRN Chest Pain Pantoprazole Sodium 40 mg 02/17/24 07:30 02/17/24 05:36 Pantoprazole 40 Mg Tablet PO 40 mg AC-BRKFST JOEY Administration Pramipexole Dihydrochloride 0.5 mg 02/17/24 00:21 Pramipexole 0.5 Mg Tab PO BID PRN Restless legs Tamsulosin HCl 0.4 mg 02/17/24 21:00 Tamsulosin 0.4 Mg Cap.Er.24h PO HS [facility] Torsemide 40 mg 02/17/24 09:00 02/17/24 09:12 Torsemide 20 Mg Tab PO 40 mg SUMOWEFR JOEY Administration Intake and Output 02/16/24 02/17/24 02/17/24 22:59 06:59 14:59 Intake Total 63.494 118 Balance 63.494 118 Intake: Intake, IV Titration 63.494 Amount Heparin Sod,Pork in 0.45% 63.494 NaCl 25,000 unit In 0.45 % NaCl 1 250ml.bag @ 10. 02 UNITS/KG/HR 9.999 mls/ hr IV .Q24H [facility] Rx#: [id number] Oral 118 Other: # Voids 0 2 Weight 99.79 kg 02/17/24 04:39 02/16/24 16:51
[2024-02-17 10:43] LABS: Basophils # (M) 0 X 10*3/uL (0.00-0.10); Elliptocytes 2+; Eosinophils # (M) 0 X 10*3/uL (0.04-0.35); Lymphocytes # (M) 1.75 X 10*3/uL (0.90-5.00); Neutrophils # (M) 3.12 X 10*3/uL (1.80-7.70); Neutrophils % (M) 57 %
[2024-02-17 10:49] LABS: Basophils % (A) 1 %; Eosinophils # (A) 0.1 k/uL (0-0.7); Eosinophils % (A) 2 %; HCT 31.5 % (39.0-53.0); HGB 10.3 gm/dL (13.0-17.5); Lymphocytes # (A) 1.2 k/uL (1.0-4.8); Lymphocytes % (A) 26 %; MCH 31.2 pg (25.0-35.0); MCHC 32.7 g/dL (31.0-37.0); MCV 95.2 fL (80.0-100.0); Mean Platelet Volume 8.2; Monocytes # (A) 0.4 k/uL (0-1.0); Monocytes % (A) 9 %; Neutrophils # (A) 2.7 k/uL (1.3-7.7); Neutrophils % (A) 58 %; Platelet Count 166 k/uL (150-450); RBC 3.31 m/uL (4.30-5.90); WBC 4.7 k/uL (3.8-10.6)
[2024-02-17 10:56] LABS: Partial Thromboplastin Time 27.9 sec (22.0-30.0); Prothrombin Time 11.4 sec (10.0-12.5)
[2024-02-17] MEDS: HEPARIN SOD,PORK IN 0.45% NACL 25,000 UNIT in 0.45% NACL 1 250ML.BAG IV SCH (11:05)
--- NOTE | 2024-02-17 11:51 | P.NPCON ---
History of Present Illness - Reason for Consult end stage renal disease - History of Present Illness reason for consultation: End-stage renal disease History of present illness: Patient is a 73-year-old male seen in consultation for end-stage renal disease. He is maintained on hemodialysis on Tuesday schedule. Patient did complete hemodialysis yesterday. Patient states after he went home from dialysis he took a nap. When he woke up he developed chest discomfort. He describes the pain as a dull ache. pain is currently resolved. Patient is a history of coronary artery disease and is status post CABG. He also had cardiac stents from before. no fever or chills. No vomiting or diarrhea. Patient is a long-standing history of diabetes. He does make urine. Vital signs are stable. General: no acute distress. HEENT: Head exam is unremarkable. LUNGS: no audible rhonchi or wheezes. HEART: Rate and Rhythm are regular. ABDOMEN: nontender. EXTREMITITES: No edema. Past Medical History Past Medical History: Blood Disorder, Coronary Artery Disease (CAD), Chest Pain / Angina, Heart Failure, COPD, Diabetes Mellitus, Dialysis, Hearing Disorder / Deafness, Hyperlipidemia, Hypertension, Myocardial Infarction ([place]), Osteoarthritis (OA), Renal Disease, Sleep Apnea/CPAP/BIPAP Additional Past Medical History / Comment(s): has insulin pump and contiunuous blood glucose monitor,fell at home on Tuesday10-10-23"got dizzy"-no injury,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. Chronic renal failure, dialysis [facility] normally. Patient has insulin pump. Has CPAP, occasionally uses. Neuropathy in feet and hands. Poor hearing. Last Myocardial Infarction Date:: History of Any Multi-Drug Resistant Organisms: None Reported Past Surgical History: Cholecystectomy, Coronary Bypass/CABG, Heart Catheterization, Heart Catheterization With Stent, Orthopedic Surgery Additional Past Surgical History / Comment(s): Shoulder surgery-no hardware, hemorrhoidectomy, eye surgery,4 cardiac stents,AV fistula left forearm, double vessle CABG 10/17/23 Past Anesthesia/Blood Transfusion Reactions: No Reported Reaction Additional Past Anesthesia/Blood Transfusion Reaction / Comment(s): Never had a blood transfusion. Date of Last Stent Placement:: Past Psychological History: No Psychological Hx Reported Smoking Status: Former smoker Past Alcohol Use History: None Reported Past Drug Use History: None Reported - Past Family History Father Family Medical History: Cancer Additional Family Medical History / Comment(s): Bladder cancer. Mother Family Medical History: Cancer, Diabetes Mellitus Additional Family Medical History / Comment(s): Pancreatic cancer. Medications and Allergies Home Medications Medication Instructions Recorded Confirmed Type Ezetimibe [Zetia] 10 mg PO DAILY 05/19/16 02/16/24 History Ferrous Sulfate [Iron (65 MG 325 mg PO DAILY 05/19/16 02/16/24 History Elemental)] Insulin Aspart (For Pump) [NovoLOG 0.01 unit SQ-PUMP CONTINUOUS 05/28/18 0 02/16/24 History (For Pump)] Pramipexole [Mirapex] 0.5 mg PO BID PRN 05/02/19 02/16/24 History Albuterol Inhaler [Ventolin Hfa 2 puff INHALATION RT-Q4H PRN 08/10/21 02/16/24 History Inhaler] Aspirin EC [Ecotrin Low Dose] 81 mg PO DAILY 02/21/22 02/16/24 History Glucagon Emergency Kit 1 mg IM ONCE PRN 02/21/22 02/16/24 History Escitalopram [Lexapro] 10 mg PO DAILY 01/01/23 02/16/24 History ALPRAZolam [Xanax] 0.5 mg PO HS PRN 06/17/23 02/16/24 History Cholecalciferol [Vitamin D3 (25 50 mcg PO DAILY 06/17/23 02/16/24 History Mcg = 1000 Iu)] Rosuvastatin [Crestor] 10 mg PO HS 06/17/23 02/16/24 History Tamsulosin [Flomax] 0.4 mg PO HS 06/17/23 02/16/24 History Cetirizine HCl [Zyrtec] 10 mg PO DAILY 09/22/23 02/16/24 History Folic Acid/Vit B Complex and C 0.8 mg PO DAILY 09/22/23 02/16/24 History [Nephro-Pooja Tablet] Torsemide [Demadex] 40 mg PO SUMOWEFR 09/22/23 02/16/24 History Acetaminophen Tab [Tylenol] 1,000 mg PO Q6HR PRN tab 10/24/23 02/16/24 Rx Clopidogrel [Plavix] 75 mg PO DAILY #30 tab 10/24/23 02/16/24 Rx Pantoprazole [Protonix] 40 mg PO AC-BRKFST #30 tab 10/24/23 02/16/24 Rx Metoprolol Tartrate [Lopressor] 12.5 mg PO HS 10/29/23 02/16/24 History Metoprolol Tartrate [Lopressor] 25 mg PO DAILY 10/29/23 02/16/24 History Calcium Acetate [Phoslo] 667 mg PO TID-W/MEALS 02/16/24 02/16/24 History HYDROcodone/APAP 5-325MG [[place] 1 tab PO Q4-6H PRN 02/16/24 02/16/24 History 5-325] Isosorbide Mononitrate ER [Imdur] 30 mg PO DAILY 02/16/24 02/16/24 History Allergies Allergy/AdvReac Type Severity Reaction Status Date / Time zolpidem [From Ambien] Allergy Hallucinati Verified 02/16/24 17:33 ons atorvastatin [From Lipitor] AdvReac jt and Verified 02/16/24 17:33 muscle pain baclofen AdvReac caused a Verified 02/16/24 17:33 fall Physical Exam Vitals: Vital Signs Temp Pulse Pulse Resp BP BP Pulse Ox 02/17/24 10:11 98.5 F 70 16 105/53 95 02/17/24 07:00 98 F 63 16 120/64 96 02/17/24 02:00 98.2 F 68 16 143/71 99 02/16/24 20:48 97.5 F L 62 16 153/78 94 L 02/16/24 19:56 97.3 F L 61 18 134/76 99 02/16/24 19:49 61 18 134/76 99 02/16/24 16:48 97.1 F L 67 18 135/62 100 Intake and Output 02/16/24 02/17/24 02/17/24 22:59 06:59 14:59 Intake Total 63.494 118 Balance 63.494 118 Intake: Intake, IV Titration 63.494 Amount Heparin Sod,Pork in 0.45% 63.494 NaCl 25,000 unit In 0.45 % NaCl 1 250ml.bag @ 10. 02 UNITS/KG/HR 9.999 mls/ hr IV .Q24H [facility] Rx#: [id number] Oral 118 Other: Voiding Method Toilet # Voids 0 2 Weight 99.79 kg Results - Lab Results Most recent lab results Calcium 8.6 mg/dL (8.4-10.2) 02/16/24 16:51 Magnesium 2.0 mg/dL (1.6-2.3) 02/16/24 16:51 02/17/24 10:33 02/16/24 16:51 Assessment and Plan Plan: assessment: 1. End-stage renal disease maintained on hemodialysis on Tuesday schedule. 2. Coronary disease status post cardiac stents and CABG. 3. Chest pain. cardiology following. on heparin drip. Stress test an echocardiogram pending. 4. Diabetes mellitus. 5. Anemia of chronic kidney disease. plan: Hemodialysis tomorrow. Check phosphorus level. Check iron studies. maintain torsemide. Thank you for the consultation. I will continue to follow the patient with you during his hospital stay.
[2024-02-17 12:45] LABS: Glucose,Whole Blood 262 mg/dL (70-110)
[2024-02-17 15:29] LABS: % Iron Saturation 29.11 (15.00-50.00); Phosphorus 4.1 mg/dL (2.4-5.1)
--- NOTE | 2024-02-17 17:04 | P.PN ---
Subjective Progress Note Date: 02/17/24 Subjective: patient seen at bedside. no acute events overnight. had complaint of chest pain when ambulating earlier this morning. states he has no pain at rest. Vital signs reviewed. Physical examination: General: non toxic, no distress, appears at stated age, normal weight Derm: no unusual rashes/lesions, warm Head: atraumatic, normocephalic, symmetric Eyes: EOMI, no lid lag, anicteric sclera, pupils equal round reactive to light ENT: Nose and ears atraumatic Neck: No cervical lymphadenopathy, trachea midline, supple Mouth: no lip lesion, mucus membranes moist Cardiovascular: S1S2 reg, grade 3 systolic murmur, positive dorsalis pedis pulse bilateral, bilateral grade 1 pitting edema Lungs: CTA bilateral, no rhonchi, no rales, no accessory muscle use Abdominal: soft, nontender to palpation, no guarding Ext: muscle strength 5 out of 5 in all 4 extremities grossly, no gross muscle atrophy, no contractures, Neuro: CN II-XI grossly intact, no gross focal neuro deficits Psych: Alert, oriented, appropriate affect Pertinent Labs From Today: Labs: Hgb 10.3, APTT 32.3 POC Glucose 262, A1c 8.8, Ferritin 991, Iron 69, TIBC 237, Transferrin 169.0, HDL 34.80, Imaging: EKG on independent interpretation shows sinus 1st degree AV block, RBBB, no new ST-T wave changes Assessment/Plan: 73-year-old male with past medical history coronary disease status post stents in 2004, 2013 and CABG on 10/17/2023, ESRD on hemodialysis, chronic diastolic heart failure with ejection fraction of 50 to 55%, type 2 diabetes on insulin pump, COPD and hypertension presented to ER with gradually worsening substernal chest pain. NSTEMI, likely type 1 Started on IV Heparin 250 mls at 10 mls/hr q24h infusion low dose Continue on nitro-bid ointment Continue with Aspirin 81 mg po daily metoprolol increased to 25 twice a day per cardiology Initiate Lipitor 80 mg po qhs Troponins: 0.030, 0.038, 0.044 Continue with O2 administration with 2L via Nasal cannula Sublingual Nitroglycerin 0.4 mg prn Imdur increased to 60mg daily 2-D echo ordered Cardiology note read. Lexiscan scheduled for Tuesday. any further chest discomfort, will plan for cardiac catheterization pain management: acetaminophen 1000 mg PO q6hr for mild/mod pain, norco 5-325 PO q4hr for mod/severe pain. Coronary Artery Disease, s/p stents (2004, 2013), CABG 10/17/2023 dyslipidemia - atorvastain 80 mg qhs - ezetimibe 10 mg PO daily Type 2 Diabetes, insulin pump - HbA1C 8.8 - Started on sliding scale short acting insulin - Continue to monitor Blood glucose levels - hold insulin pump Elevated Bicarbonate, likely due to chronic hypercapnia secondary to COPD Continue to monitor bicarb levels Continue with O2 administration with 2L via Nasal cannula Resume his home medication albuterol 2 puffs every 4 hours Duoneb 3ml inhalation rt QID prn ESRD on hemodialysis torsemide 40 mg PO hs ESRD maintained on hemodialysis on Tuesday, , Tuesday. Elevated BUN and Creatinine in light of ESRD Continue to monitor BMP Nephrology read. Hemodialysis tomorrow. Check phosphorus level and iron studies. Hyponatermia At baseline Continue to monitor sodium levels Chronic conditions: GERD: Resume Protonix 40 mg p.o. daily BPH: Flomax 0.4 mg p.o. nightly Anxiety: escitalopram 10 mg p.o. daily and Xanax 0.5 mg p.o. nightly Restless Leg Syndrome: 0.4 mg PO HS DVT prophylaxis: IV heparin F: n/a E: replete as needed N: heart healthy diet A: ambulatory disposition: pending clinical course I have seen and evaluated the patient today. Discussed with the resident and agree with resident's findings and plan as documented in the resident's note. Changes highlighted in blue font. Objective - Vital Signs Vital signs: Vital Signs Temp 98 F 02/17/24 07:00 Pulse 63 02/17/24 07:00 Resp 16 02/17/24 07:00 BP 120/64 02/17/24 07:00 Pulse Ox 96 02/17/24 07:00 FiO2 Intake & Output 02/16/24 02/17/24 02/17/24 18:59 06:59 18:59 Intake Total 63.494 Balance 63.494 Weight 99.79 kg 99.79 kg Intake: Intake, IV Titration 63.494 Amount Heparin Sod,Pork in 0.45% 63.494 NaCl 25,000 unit In 0.45 % NaCl 1 250ml.bag @ 10. 02 UNITS/KG/HR 9.999 mls/ hr IV .Q24H [facility] Rx#: [id number] Other: # Voids 2 - Labs CBC & Chem 7: 02/17/24 10:33 02/16/24 16:51 Labs: Abnormal Lab Results - Last 24 Hours (Table) 02/16/24 02/16/24 02/16/24 Range/Units 16:51 16:51 19:52 RBC 3.83 L (4.30-5.90) m/uL Hgb 12.1 L (13.0-17.5) gm/dL Hct 36.4 L (39.0-53.0) % APTT (22.0-30.0) sec Sodium 136 L (137-145) mmol/L Chloride 96 L (98-107) mmol/L Carbon Dioxide 33 H (22-30) mmol/L BUN 27 H (9-20) mg/dL Creatinine 2.62 H (0.66-1.25) mg/dL Glucose 413 H (74-99) mg/dL POC Glucose (mg/dL) (70-110) mg/dL Troponin I 0.038 H* (0.000-0.034) ng/mL 02/16/24 02/16/24 02/17/24 Range/Units 20:14 22:33 01:03 RBC (4.30-5.90) m/uL Hgb (13.0-17.5) gm/dL Hct (39.0-53.0) % APTT (22.0-30.0) sec Sodium (137-145) mmol/L Chloride (98-107) mmol/L Carbon Dioxide (22-30) mmol/L BUN (9-20) mg/dL Creatinine (0.66-1.25) mg/dL Glucose (74-99) mg/dL POC Glucose (mg/dL) 316 H 52 L (70-110) mg/dL Troponin I 0.044 H* (0.000-0.034) ng/mL 02/17/24 02/17/24 02/17/24 Range/Units 01:18 04:39 05:39 RBC (4.30-5.90) m/uL Hgb (13.0-17.5) gm/dL Hct (39.0-53.0) % APTT 31.4 H (22.0-30.0) sec Sodium (137-145) mmol/L Chloride (98-107) mmol/L Carbon Dioxide (22-30) mmol/L BUN (9-20) mg/dL Creatinine (0.66-1.25) mg/dL Glucose (74-99) mg/dL POC Glucose (mg/dL) 210 H 140 H (70-110) mg/dL Troponin I (0.000-0.034) ng/mL
[2024-02-17 17:14] LABS: Glucose,Whole Blood 220 mg/dL (70-110)
[2024-02-17] MEDS: HEPARIN SODIUM 1,000 UN/ML (10ML VL) IVP ONE (17:29)
[2024-02-17] MEDS: TAMSULOSIN 0.4 MG CAP.ER.24H PO SCH (20:12)
[2024-02-17 20:41] LABS: Glucose,Whole Blood 220 mg/dL (70-110)
[2024-02-17] MEDS ORDERED: METOPROLOL TARTRATE 12.5 MG TAB PO SCH (21:00)
[2024-02-18 01:09] LABS: Prothrombin Time 11.3 sec (10.0-12.5)
[2024-02-18 04:56] LABS: Basophils % (A) 1 %; Eosinophils # (A) 0.1 k/uL (0-0.7); Eosinophils % (A) 2 %; HCT 31.2 % (39.0-53.0); HGB 10.4 gm/dL (13.0-17.5); Lymphocytes # (A) 1.7 k/uL (1.0-4.8); Lymphocytes % (A) 35 %; MCH 31.4 pg (25.0-35.0); MCHC 33.5 g/dL (31.0-37.0); MCV 93.7 fL (80.0-100.0); Mean Platelet Volume 8.4; Monocytes # (A) 0.5 k/uL (0-1.0); Monocytes % (A) 11 %; Neutrophils # (A) 2.4 k/uL (1.3-7.7); Neutrophils % (A) 48 %; Platelet Count 176 k/uL (150-450); RBC 3.33 m/uL (4.30-5.90); RDW 14.9 % (11.5-15.5); WBC 4.9 k/uL (3.8-10.6)
[2024-02-18 05:38] LABS: Glucose,Whole Blood 222 mg/dL (70-110)
[2024-02-18 08:24] LABS: African American GFR (CKD) 17 (>60 ml/min/1.73 sqM); Anion Gap 11 mmol/L; Blood Urea Nitrogen 41 mg/dL (9-20); Calcium 8.8 mg/dL (8.4-10.2); Carbon Dioxide 25 mmol/L (22-30); Chloride 101 mmol/L (98-107); Glucose 192 mg/dL (74-99); Non-African American GFR(CKD) 15 (>60 ml/min/1.73 sqM); Potassium 4.4 mmol/L (3.5-5.1); Sodium 137 mmol/L (137-145)
[2024-02-18 09:02] LABS: Glucose,Whole Blood 172 mg/dL (70-110)
[2024-02-18 12:17] LABS: Glucose,Whole Blood 105 mg/dL (70-110)
--- NOTE | 2024-02-18 12:51 | P.PN ---
Subjective Progress Note Date: 02/18/24 Subjective: patient seen at bedside. no acute events overnight. Had second incident of chest pain on exertion while walking this morning. states he has no pain at rest. Vital signs reviewed. Physical examination: General: non toxic, no distress, appears at stated age, obese Derm: no unusual rashes/lesions, warm Head: atraumatic, normocephalic, symmetric Eyes: EOMI, no lid lag, anicteric sclera, pupils equal round reactive to light ENT: Nose and ears atraumatic Neck: No cervical lymphadenopathy, trachea midline, supple Mouth: no lip lesion, mucus membranes moist Cardiovascular: S1S2 reg, grade 3 systolic murmur, positive dorsalis pedis pulse bilateral, bilateral grade 1 pitting edema Lungs: CTA bilateral, no rhonchi, no rales, no accessory muscle use Abdominal: soft, nontender to palpation, no guarding Ext: muscle strength 5 out of 5 in all 4 extremities grossly, no gross muscle atrophy, no contractures, Neuro: CN II-XI grossly intact, no gross focal neuro deficits Psych: Alert, oriented, appropriate affect Pertinent Labs From Today: Labs: WBC 4.9, Hgb 10.4, APTT 47.9, sodium 137, K 4.4, Cr 3.72, glucose range [id number] Imaging: Echo pending Assessment/Plan: 73-year-old male with past medical history coronary disease status post stents in 2004, 2013 and CABG on 10/17/2023, ESRD on hemodialysis, chronic diastolic heart failure with ejection fraction of 50 to 55%, type 2 diabetes on insulin pump, COPD and hypertension presented to ER with gradually worsening substernal chest pain. NSTEMI, likely type 1 Coronary Artery Disease, s/p stents (2004, 2013), CABG 10/17/2023 Dyslipidemia Continue on IV Heparin 250 mls at 10 mls/hr q24h infusion low dose Continue with Aspirin 81 mg po daily, continue Lipitor 80 mg po qhs, ezetimibe 10 mg p.o. daily maintain metoprolol 25 twice a day per cardiology Troponins: 0.030, 0.038, 0.044 Continue with O2 administration with 2L via Nasal cannula Sublingual Nitroglycerin 0.4 mg prn Continue Imdur to 60mg daily 2-D echo pending Cardiology following. Mohit scheduled for Tuesday. may go foward with cardiac catheterization instead on Tuesday. pain management: acetaminophen 1000 mg PO q6hr for mild/mod pain, norco 5-325 PO q4hr for mod/severe pain. Type 2 Diabetes, insulin pump - HbA1C 8.8 - Started on sliding scale short acting insulin - put on 10 units of [place] SQ daily for better glycemic control - Continue to monitor Blood glucose levels - hold insulin pump Elevated Bicarbonate, likely due to chronic hypercapnia secondary to COPD Continue to monitor bicarb levels Continue with O2 administration with 2L via Nasal cannula Resume his home medication albuterol 2 puffs every 4 hours Duoneb 3ml inhalation rt QID prn ESRD on hemodialysis Normocytic anemia torsemide 40 mg PO hs ESRD maintained on hemodialysis on Tuesday, , Tuesday. Elevated BUN and Creatinine in light of ESRD Continue to monitor BMP Nephrology following. Hemodialysis today. Ferritin 991, Iron 69, TIBC 237, Transferrin 169.0, phosphorus 4.1 Resolved: Mild hyponatremia Chronic conditions: GERD: Resume Protonix 40 mg p.o. daily BPH: Flomax 0.4 mg p.o. nightly Anxiety: escitalopram 10 mg p.o. daily and Xanax 0.5 mg p.o. nightly Restless Leg Syndrome: 0.4 mg PO HS DVT prophylaxis: IV heparin F: n/a E: replete as needed N: heart healthy diet A: ambulatory Disposition: Likely home, pending clinical course I have seen and evaluated the patient today. Discussed with the resident and agree with the residents finding and plan as documented in the resident's note. Changes highlighted in blue font. Objective - Vital Signs Vital signs: Vital Signs Temp 97.8 F 02/18/24 01:55 Pulse 60 02/18/24 01:55 Resp 16 02/18/24 01:55 BP 128/60 02/18/24 01:55 Pulse Ox 98 02/18/24 01:55 FiO2 Intake & Output 02/17/24 02/18/24 02/18/24 18:59 06:59 18:59 Intake Total 417.994 161.33 Output Total 0 Balance 417.994 161.33 Intake: Intake, IV Titration 63.994 161.33 Amount Heparin Sod,Pork in 0.45% 63.994 161.33 NaCl 25,000 unit In 0.45 % NaCl 1 250ml.bag @ 10. 02 UNITS/KG/HR 9.999 mls/ hr IV .Q24H [facility] Rx#: [id number] Oral 354 Output: Stool 0 Other: Voiding Method Toilet Toilet # Voids 2 2 - Labs CBC & Chem 7: 02/18/24 03:54 02/18/24 07:35 Labs: Abnormal Lab Results - Last 24 Hours (Table) 02/17/24 02/17/24 02/17/24 Range/Units 04:39 04:39 04:39 RBC 3.52 L (4.40-5.60) X 10*6/uL Hgb 10.9 L (13.0-17.0) g/dL Hct 32.5 L (39.6-50.0) % RDW 14.6 H (11.5-14.5) % Eosinophils # (Manual) 0 L (0.04-0.35) X 10*3/uL Elliptocytes 2+ A APTT (22.0-30.0) sec POC Glucose (mg/dL) (70-110) mg/dL Hemoglobin A1c 8.8 H (<=6.0) % Transferrin (204.0-354.0) mg/dL Ferritin (22.0-322.0) ng/mL HDL Cholesterol 34.80 L (40.00-60.00) mg/dL 02/17/24 02/17/24 02/17/24 Range/Units 10:33 10:33 12:43 RBC 3.31 L (4.40-5.60) X 10*6/uL Hgb 10.3 L (13.0-17.0) g/dL Hct 31.5 L (39.6-50.0) % RDW (11.5-14.5) % Eosinophils # (Manual) (0.04-0.35) X 10*3/uL Elliptocytes APTT (22.0-30.0) sec POC Glucose (mg/dL) 262 H (70-110) mg/dL Hemoglobin A1c (<=6.0) % Transferrin 169.0 L (204.0-354.0) mg/dL Ferritin 991.0 H (22.0-322.0) ng/mL HDL Cholesterol (40.00-60.00) mg/dL 02/17/24 02/17/24 02/17/24 Range/Units 16:14 17:12 20:40 RBC (4.40-5.60) X 10*6/uL Hgb (13.0-17.0) g/dL Hct (39.6-50.0) % RDW (11.5-14.5) % Eosinophils # (Manual) (0.04-0.35) X 10*3/uL Elliptocytes APTT 32.3 H (22.0-30.0) sec POC Glucose (mg/dL) 220 H 220 H (70-110) mg/dL Hemoglobin A1c (<=6.0) % Transferrin (204.0-354.0) mg/dL Ferritin (22.0-322.0) ng/mL HDL Cholesterol (40.00-60.00) mg/dL 02/18/24 02/18/24 02/18/24 Range/Units 03:54 03:54 05:36 RBC 3.33 L (4.40-5.60) X 10*6/uL Hgb 10.4 L (13.0-17.0) g/dL Hct 31.2 L (39.6-50.0) % RDW (11.5-14.5) % Eosinophils # (Manual) (0.04-0.35) X 10*3/uL Elliptocytes APTT 47.9 H (22.0-30.0) sec POC Glucose (mg/dL) 222 H (70-110) mg/dL Hemoglobin A1c (<=6.0) % Transferrin (204.0-354.0) mg/dL Ferritin (22.0-322.0) ng/mL HDL Cholesterol (40.00-60.00) mg/dL
[2024-02-18] MEDS: INSULIN DETEMIR (LEVEMIR) 100 UNIT/ML SYR SQ SCH (13:01)
--- NOTE | 2024-02-18 13:10 | P.PN ---
Subjective HISTORY OF PRESENT ILLNESS: This is a 73-year-old male with a past medical history significant for CAD with 2 vessel CABG in September 2023, chronic kidney disease on hemodialysis, hypertension, hyperlipidemia, and diabetes. Patient follows in the office with Dr. Castle. We have been asked to see the patient in consultation for chest pain. Patient examined at the bedside. patient states yesterday he woke up and was having chest discomfort. He states the pain was in the middle of his chest and initially felt like gas pains. He decided to come to the hospital for further evaluation. The patient states he has had no further chest pain since being here. He denied any shortness of breath. Vital signs are currently st able. * EKG reveals sinus mechanism with right bundle branch block. No signs of acute ischemia. * Chest xray bibasilar infiltrates are present. Correlate for atelectasis or pneumonia. * Laboratory data: WBC 5.48. Hemoglobin 10.9. Platelet count 159. Sodium 136. Potassium 4.2. BUN 27. Creatinine 2.62.troponin 0.030. 0.038. 0.044. * Current home cardiac medications include Imdur 30 mg daily, Demadex 40 mg Tuesday, Crestor 10 mg at night, metoprolol tartrate 25 mg in the morning and 12.5 mg at night, Zetia 10 mg daily, Plavix 75 mg daily, aspirin 81 mg daily * patient underwent cardiac catheterization September 2023 revealed 60% mid to distal left main stenosis, 50-60% mid LAD stenosis, 100% circumflex stenosis, 50-60% mid RCA stenosis, I for abnormal of LAD.. * Patient underwent 2 vessel CABG on 10/17/2023 ( LAD and ramus intermedius) * echocardiogram completed in October 2023 revealed ejection fraction 50-55%, mild aortic stenosis 02/18/2024 Patient examined this morning at the bedside. Patient currently denies any chest pain or pressure. He denies any shortness of breath. Patient states he has been up ambulating in the [place] without any further episodes of chest pain. Patient is somewhat anxious to be discharged home. Vital signs are stable. PHYSICAL EXAM: VITAL SIGNS: Reviewed. GENERAL: Well-developed in no acute distress. HEENT: Head is normocephalic. Pupils are equal, round. Sclerae anicteric. Mucous membranes of the mouth are moist. Neck supple. No JVD or thyromegaly LUNGS: Respirations even and unlabored. Lungs essentially clear to auscultation bilaterally. HEART: Regular rate and rhythm. S1 and S2 heard. ABDOMEN: Soft. Nondistended. Nontender. EXTREMITIES: Normal range of motion. No clubbing or cyanosis. Peripheral pulses intact. No lower extremity edema NEUROLOGIC: Awake and alert. Oriented x 3. ASSESSMENT: Chest pain Coronary artery disease with recent CABG 2 vessels, left internal thoracic artery to LAD and saphenous vein from aorta to ramus intermedius, September 2023 End-stage renal disease on hemodialysis Elevated troponins, flat, secondary to poor renal clearance, no evidence of myocardial injury or ischemia, no clinical significance Hypertension Hyperlipidemia Diabetes Mild aortic stenosis PLAN: 2D echo ordered. Await results. Continue current cardiac medications Continue IV heparin Patient encouraged to increase activity and ambulate in the hallway Patient will be reevaluated tomorrow. Decision will be made tomorrow whether patient will undergo cardiac catheterization or Lexiscan stress test on Tuesday Further recommendations pending patient course Nurse practitioner note has been reviewed by physician. Signing provider agrees with the documented findings, assessment, and plan of care. Objective - Vital Signs Vital signs: Vital Signs Temp 97.8 F 02/18/24 07:00 Pulse 55 L 02/18/24 07:00 Resp 16 02/18/24 07:00 BP 131/58 02/18/24 07:00 Pulse Ox 98 02/18/24 07:00 FiO2 Intake & Output 02/17/24 02/18/24 02/18/24 18:59 06:59 18:59 Intake Total 417.994 161.33 Output Total 0 Balance 417.994 161.33 Intake: Intake, IV Titration 63.994 161.33 Amount Heparin Sod,Pork in 0.45% 63.994 161.33 NaCl 25,000 unit In 0.45 % NaCl 1 250ml.bag @ 10. 02 UNITS/KG/HR 9.999 mls/ hr IV .Q24H [facility] Rx#: [id number] Oral 354 Output: Stool 0 Other: Voiding Method Toilet Toilet # Voids 2 2 - Labs CBC & Chem 7: 02/18/24 03:54 02/18/24 07:35 Labs: Abnormal Lab Results - Last 24 Hours (Table) 0702/17/24 02/17/24 Range/Units 10:33 16:14 17:12 RBC (4.30-5.90) m/uL Hgb (13.0-17.5) gm/dL Hct (39.0-53.0) % APTT 32.3 H (22.0-30.0) sec BUN (9-20) mg/dL Creatinine (0.66-1.25) mg/dL Glucose (74-99) mg/dL POC Glucose (mg/dL) 220 H (70-110) mg/dL Transferrin 169.0 L (204.0-354.0) mg/dL Ferritin 991.0 H (22.0-322.0) ng/mL 02/17/24 02/18/24 02/18/24 Range/Units 20:40 03:54 03:54 RBC 3.33 L (4.30-5.90) m/uL Hgb 10.4 L (13.0-17.5) gm/dL Hct 31.2 L (39.0-53.0) % APTT 47.9 H (22.0-30.0) sec BUN (9-20) mg/dL Creatinine (0.66-1.25) mg/dL Glucose (74-99) mg/dL POC Glucose (mg/dL) 220 H (70-110) mg/dL Transferrin (204.0-354.0) mg/dL Ferritin (22.0-322.0) ng/mL 02/18/24 02/18/24 02/18/24 Range/Units 05:36 07:35 08:59 RBC (4.30-5.90) m/uL Hgb (13.0-17.5) gm/dL Hct (39.0-53.0) % APTT (22.0-30.0) sec BUN 41 H (9-20) mg/dL Creatinine 3.72 H (0.66-1.25) mg/dL Glucose 192 H (74-99) mg/dL POC Glucose (mg/dL) 222 H 172 H (70-110) mg/dL Transferrin (204.0-354.0) mg/dL Ferritin (22.0-322.0) ng/mL
--- NOTE | 2024-02-18 13:48 | P.PN ---
Subjective Progress Note Date: 02/18/24 Patient seen in follow-up for ESRD. HD TTS. Seen while on HD today. Planning for heart cath on Tuesday. Vital signs are stable. General: no acute distress. HEENT: Head exam is unremarkable. LUNGS: no audible rhonchi or wheezes. HEART: Rate and Rhythm are regular. ABDOMEN: nontender. EXTREMITITES: No edema. Objective - Vital Signs Vital signs: Vital Signs Temp 97.8 F 02/18/24 07:00 Pulse 62 02/18/24 13:32 Resp 16 02/18/24 07:00 BP 123/68 02/18/24 13:32 Pulse Ox 98 02/18/24 07:00 FiO2 Intake & Output 02/17/24 02/18/24 02/18/24 18:59 06:59 18:59 Intake Total 417.994 161.33 Output Total 0 Balance 417.994 161.33 Intake: Intake, IV Titration 63.994 161.33 Amount Heparin Sod,Pork in 0.45% 63.994 161.33 NaCl 25,000 unit In 0.45 % NaCl 1 250ml.bag @ 10. 02 UNITS/KG/HR 9.999 mls/ hr IV .Q24H [facility] Rx#: [id number] Oral 354 Output: Stool 0 Other: Voiding Method Toilet Toilet # Voids 2 2 - Labs CBC & Chem 7: 02/18/24 03:54 02/18/24 07:35 Labs: Abnormal Lab Results - Last 24 Hours (Table) 02/17/24 02/17/24 02/17/24 Range/Units 10:33 16:14 17:12 RBC (4.30-5.90) m/uL Hgb (13.0-17.5) gm/dL Hct (39.0-53.0) % APTT 32.3 H (22.0-30.0) sec BUN (9-20) mg/dL Creatinine (0.66-1.25) mg/dL Glucose (74-99) mg/dL POC Glucose (mg/dL) 220 H (70-110) mg/dL Transferrin 169.0 L (204.0-354.0) mg/dL Ferritin 991.0 H (22.0-322.0) ng/mL 02/17/24 02/18/2402/17/24 Range/Units 20:40 03:54 03:54 RBC 3.33 L (4.30-5.90) m/uL Hgb 10.4 L (13.0-17.5) gm/dL Hct 31.2 L (39.0-53.0) % APTT 47.9 H (22.0-30.0) sec BUN (9-20) mg/dL Creatinine (0.66-1.25) mg/dL Glucose (74-99) mg/dL POC Glucose (mg/dL) 220 H (70-110) mg/dL Transferrin (204.0-354.0) mg/dL Ferritin (22.0-322.0) ng/mL 02/18/24 02/18/24 02/18/24 Range/Units 05:36 07:35 08:59 RBC (4.30-5.90) m/uL Hgb (13.0-17.5) gm/dL Hct (39.0-53.0) % APTT (22.0-30.0) sec BUN 41 H (9-20) mg/dL Creatinine 3.72 H (0.66-1.25) mg/dL Glucose 192 H (74-99) mg/dL POC Glucose (mg/dL) 222 H 172 H (70-110) mg/dL Transferrin (204.0-354.0) mg/dL Ferritin (22.0-322.0) ng/mL Assessment and Plan Assessment: 1. End-stage renal disease maintained on hemodialysis on Tuesday schedule. 2. Coronary disease status post cardiac stents and CABG. 3. Chest pain. cardiology following. on heparin drip. Stress test an echocardiogram pending. 4. Diabetes mellitus. 5. Anemia of chronic kidney disease. Plan: Seen while on HD today Planning for LHC on Tuesday
[2024-02-18 17:19] LABS: Glucose,Whole Blood 328 mg/dL (70-110)
[2024-02-18 20:34] LABS: Glucose,Whole Blood 354 mg/dL (70-110)
[2024-02-19 01:56] LABS: Glucose,Whole Blood 46 mg/dL (70-110)
[2024-02-19] MEDS: DEXTROSE 50% SYRINGE 50 ML IVP STA (02:12)
[2024-02-19 02:24] LABS: Glucose,Whole Blood 227 mg/dL (70-110)
[2024-02-19 03:08] LABS: Glucose,Whole Blood 158 mg/dL (70-110)
[2024-02-19 04:01] LABS: Glucose,Whole Blood 196 mg/dL (70-110)
[2024-02-19 05:07] LABS: Glucose,Whole Blood 212 mg/dL (70-110)
[2024-02-19 06:08] LABS: Glucose,Whole Blood 183 mg/dL (70-110)
[2024-02-19 07:22] LABS: Glucose,Whole Blood 263 mg/dL (70-110)
[2024-02-19 08:41] LABS: Glucose,Whole Blood 189 mg/dL (70-110)
[2024-02-19 09:30] LABS: Glucose,Whole Blood 276 mg/dL (70-110)
--- NOTE | 2024-02-19 10:10 | P.PN ---
Subjective Progress Note Date: 02/19/24 Patient seen in follow-up for ESRD. HD TTS. Seen while on HD today. Planning for heart cath on Tuesday. Vital signs are stable. General: no acute distress. HEENT: Head exam is unremarkable. LUNGS: no audible rhonchi or wheezes. HEART: Rate and Rhythm are regular. ABDOMEN: nontender. EXTREMITITES: No edema. Objective - Vital Signs Vital signs: Vital Signs Temp 97.6 F 02/19/24 07:00 Pulse 66 02/19/24 07:00 Resp 16 02/19/24 07:00 BP 115/51 02/19/24 07:00 Pulse Ox 96 02/19/24 07:00 FiO2 Intake & Output 02/18/24 02/19/24 02/19/24 18:59 06:59 18:59 Intake Total 858 250 309.844 Output Total 5500 0 Balance -4642 250 309.844 Intake: Intake, IV Titration 250 73.844 Amount Heparin Sod,Pork in 0.45% 250 73.844 NaCl 25,000 unit In 0.45 % NaCl 1 250ml.bag @ 10. 02 UNITS/KG/HR 9.999 mls/ hr IV .Q24H [facility] Rx#: [id number] Oral 358 236 Hemodialysis 500 Output: Stool 0 Hemodialysis 3000 Hemodialysis Net Amount 2500 Other: Voiding Method Toilet # Voids 2 1 # Bowel Movements 1 - Labs CBC & Chem 7: 02/18/24 03:54 02/18/24 07:35 Labs: Abnormal Lab Results - Last 24 Hours (Table) 02/18/24 02/18/24 02/19/24 Range/Units 17:16 20:32 01:53 APTT (22.0-30.0) sec POC Glucose (mg/dL) 328 H 354 H 46 L* (70-110) mg/dL 02/19/24 02/19/24 02/19/24 Range/Units 02:21 03:04 03:07 APTT 47.7 H (22.0-30.0) sec POC Glucose (mg/dL) 227 H 158 H (70-110) mg/dL 02/19/24 02/19/24 02/19/24 Range/Units 03:59 05:06 06:06 APTT (22.0-30.0) sec POC Glucose (mg/dL) 196 H 212 H 183 H (70-110) mg/dL 02/19/24 02/19/24 02/19/24 Range/Units 07:10 08:40 09:29 APTT (22.0-30.0) sec POC Glucose (mg/dL) 263 H 189 H 276 H (70-110) mg/dL Assessment and Plan Assessment: 1. End-stage renal disease maintained on hemodialysis on Tuesday schedule. 2. Coronary disease status post cardiac stents and CABG. 3. Chest pain. cardiology following. on heparin drip. Stress test an echo cardiogram pending. 4. Diabetes mellitus. 5. Anemia of chronic kidney disease. Plan: Continue HD TTS schedule. Planning for LHC on Tuesday
[2024-02-19] MEDS ORDERED: ALPRAZolam 0.25 MG TAB PO PRN (11:48)
[2024-02-19] MEDS ORDERED: ALPRAZolam 0.5 MG TAB PO PRN (11:48)
[2024-02-19] MEDS ORDERED: NITROGLYCERIN SL TABS 0.4 MG TAB SUBLINGUAL PRN (11:48)
--- NOTE | 2024-02-19 11:54 | P.PN ---
Subjective HISTORY OF PRESENT ILLNESS: This is a 73-year-old male with a past medical history significant for CAD with 2 vessel CABG in September 2023, chronic kidney disease on hemodialysis, hypertension, hyperlipidemia, and diabetes. Patient follows in the office with Dr. Castle. We have been asked to see the patient in consultation for chest pain. Patient examined at the bedside. patient states yesterday he woke up and was having chest discomfort. He states the pain was in the middle of his chest and initially felt like gas pains. He decided to come to the hospital for further evaluation. The patient states he has had no further chest pain since being here. He denied any shortness of breath. Vital signs are currently st able. * EKG reveals sinus mechanism with right bundle branch block. No signs of acute ischemia. * Chest xray bibasilar infiltrates are present. Correlate for atelectasis or pneumonia. * Laboratory data: WBC 5.48. Hemoglobin 10.9. Platelet count 159. Sodium 136. Potassium 4.2. BUN 27. Creatinine 2.62.troponin 0.030. 0.038. 0.044. * Current home cardiac medications include Imdur 30 mg daily, Demadex 40 mg Tuesday, Crestor 10 mg at night, metoprolol tartrate 25 mg in the morning and 12.5 mg at night, Zetia 10 mg daily, Plavix 75 mg daily, aspirin 81 mg daily * patient underwent cardiac catheterization September 2023 revealed 60% mid to distal left main stenosis, 50-60% mid LAD stenosis, 100% circumflex stenosis, 50-60% mid RCA stenosis, I for abnormal of LAD.. * Patient underwent 2 vessel CABG on 10/17/2023 ( LAD and ramus intermedius) * echocardiogram completed in October 2023 revealed ejection fraction 50-55%, mild aortic stenosis 02/18/2024 Patient examined this morning at the bedside. Patient currently denies any chest pain or pressure. He denies any shortness of breath. Patient states he has been up ambulating in the [place] without any further episodes of chest pain. Patient is somewhat anxious to be discharged home. Vital signs are stable. 08/21/2023 Patient examined this morning. Patient is sitting up in the chair. Patient does report having another episode of chest discomfort overnight with ambulation. He remains on IV heparin. Vital signs are stable. PHYSICAL EXAM: VITAL SIGNS: Reviewed. GENERAL: Well-developed in no acute distress. HEENT: Head is normocephalic. Pupils are equal, round. Sclerae anicteric. Mucous membranes of the mouth are moist. Neck supple. No JVD or thyromegaly LUNGS: Respirations even and unlabored. Lungs essentially clear to auscultation bilaterally. HEART: Regular rate and rhythm. S1 and S2 heard. + Systolic murmur ABDOMEN: Soft. Nondistended. Nontender. EXTREMITIES: Normal range of motion. No clubbing or cyanosis. Peripheral pulses intact. No lower extremity edema NEUROLOGIC: Awake and alert. Oriented x 3. ASSESSMENT: Chest pain Coronary artery disease with recent CABG 2 vessels, left internal thoracic artery to LAD and saphenous vein from aorta to ramus intermedius, September 2023 End-stage renal disease on hemodialysis Elevated troponins, flat, secondary to poor renal clearance, no evidence of myocardial injury or ischemia, no clinical significance Hypertension Hyperlipidemia Diabetes Mild aortic stenosis PLAN: Continue hemodialysis per nephrology. Patient currently on a Tuesday schedule 2D echo ordered. Await results. Continue current cardiac medications Continue IV heparin Lexiscan stress test for tomorrow canceled. Patient will undergo cardiac catheterization tomorrow with Dr. Castle Further recommendations pending patient course Nurse practitioner note has been reviewed by physician. Signing provider agrees with the documented findings, assessment, and plan of care. Objective - Vital Signs Vital signs: Vital Signs Temp 97.6 F 02/19/24 07:00 Pulse 66 02/19/24 07:00 Resp 16 02/19/24 07:00 BP 115/51 02/19/24 07:00 Pulse Ox 96 02/19/24 07:00 FiO2 Intake & Output 02/18/24 02/19/24 02/19/24 18:59 06:59 18:59 Intake Total 858 250 309.844 Output Total 5500 0 Balance -4642 250 309.844 Intake: Intake, IV Titration 250 73.844 Amount Heparin Sod,Pork in 0.45% 250 73.844 NaCl 25,000 unit In 0.45 % NaCl 1 250ml.bag @ 10. 02 UNITS/KG/HR 9.999 mls/ hr IV .Q24H [facility] Rx#: [id number] Oral 358 236 Hemodialysis 500 Output: Stool 0 Hemodialysis 3000 Hemodialysis Net Amount 2500 Other: Voiding Method Toilet # Voids 2 1 # Bowel Movements 1 - Labs CBC & Chem 7: 02/18/24 03:54 02/18/24 07:35 Labs: Abnormal Lab Results - Last 24 Hours (Table) 02/18/24 02/18/24 02/19/24 Range/Units 17:16 20:32 01:53 APTT (22.0-30.0) sec POC Glucose (mg/dL) 328 H 354 H 46 L* (70-110) mg/dL 02/19/24 02/19/24 02/19/24 Range/Units 02:21 03:04 03:07 APTT 47.7 H (22.0-30.0) sec POC Glucose (mg/dL) 227 H 158 H (70-110) mg/dL 02/19/24 02/19/24 02/19/24 Range/Units 03:59 05:06 06:06 APTT (22.0-30.0) sec POC Glucose (mg/dL) 196 H 212 H 183 H (70-110) mg/dL 02/19/24 02/19/24 02/19/24 Range/Units 07:10 08:40 09:29 APTT (22.0-30.0) sec POC Glucose (mg/dL) 263 H 189 H 276 H (70-110) mg/dL
--- NOTE | 2024-02-19 12:00 | P.PN ---
Subjective Progress Note Date: 02/19/24 Subjective: patient seen at bedside. no acute events overnight. Still having some exertional chest pain. Patient was hypoglycemic overnight Vital signs reviewed. Physical examination: General: non toxic, no distress, appears at stated age, obese Derm: no unusual rashes/lesions, warm Head: atraumatic, normocephalic, symmetric Eyes: EOMI, no lid lag, anicteric sclera, pupils equal round reactive to light ENT: Nose and ears atraumatic Neck: No cervical lymphadenopathy, trachea midline, supple Mouth: no lip lesion, mucus membranes moist Cardiovascular: S1S2 reg, grade 3 systolic murmur, positive dorsalis pedis pulse bilateral, bilateral grade 1 pitting edema Lungs: CTA bilateral, no rhonchi, no rales, no accessory muscle use Abdominal: soft, nontender to palpation, no guarding Ext: muscle strength 5 out of 5 in all 4 extremities grossly, no gross muscle atrophy, no contractures, Neuro: CN II-XI grossly intact, no gross focal neuro deficits Psych: Alert, oriented, appropriate affect Pertinent Labs From Today: Labs: Blood sugars range between 1 89-2 63, BMP and magnesium pending, will be reviewed when available Imaging: Echo pending, otherwise no new imaging Assessment/Plan: 73-year-old male with past medical history coronary disease status post stents in 2004, 2013 and CABG on 10/17/2023, ESRD on hemodialysis, chronic diastolic heart failure with ejection fraction of 50 to 55%, type 2 diabetes on insulin pump, COPD and hypertension presented to ER with gradually worsening substernal chest pain. Currently on heparin drip, pending left heart cath tomorrow NSTEMI, likely type 1 Coronary Artery Disease, s/p stents (2004, 2013), CABG 10/17/2023 Dyslipidemia Continue heparin drip, monitor APTT, daily CBC, monitor for bleeding Continue with Aspirin 81 mg po daily, continue Lipitor 80 mg po qhs, ezetimibe 10 mg p.o. daily maintain metoprolol 25 twice a day per cardiology Troponins: 0.030, 0.038, 0.044 Continue with O2 administration with 2L via Nasal cannula Sublingual Nitroglycerin 0.4 mg prn Continue Imdur to 60mg daily 2-D echo pending Cardiology note reviewed, left heart cath tomorrow pain management: acetaminophen 1000 mg PO q6hr for mild/mod pain, norco 5-325 PO q4hr for mod/severe pain. Type 2 Diabetes, on insulin pump - HbA1C 8.8 - Started on sliding scale short acting insulin -Patient is a brittle diabetic, Levemir discontinued due to episode of hypoglycemia - Continue to monitor Blood glucose levels - hold insulin pump, will restart once he is done with left heart cath Elevated Bicarbonate, likely due to chronic hypercapnia secondary to COPD Continue to monitor bicarb levels Continue with O2 administration with 2L via Nasal cannula Resume his home medication albuterol 2 puffs every 4 hours Duoneb 3ml inhalation rt QID prn ESRD on hemodialysis Normocytic anemia torsemide 40 mg PO hs ESRD maintained on hemodialysis on Tuesday, , Tuesday. Elevated BUN and Creatinine in light of ESRD Continue to monitor BMP Nephrology note reviewed, continue hemodialysis as scheduled Ferritin 991, Iron 69, TIBC 237, Transferrin 169.0, phosphorus 4.1 Resolved: Mild hyponatremia Chronic conditions: GERD: Resume Protonix 40 mg p.o. daily BPH: Flomax 0.4 mg p.o. nightly Anxiety: escitalopram 10 mg p.o. daily and Xanax 0.5 mg p.o. nightly Restless Leg Syndrome: 0.4 mg PO HS DVT prophylaxis: IV heparin F: n/a E: replete as needed N: heart healthy diet A: ambulatory Disposition: Likely home, pending clinical course Objective - Vital Signs Vital signs: Vital Signs Temp 97.6 F 02/19/24 07:00 Pulse 66 02/19/24 07:00 Resp 16 02/19/24 07:00 BP 115/51 02/19/24 07:00 Pulse Ox 96 02/19/24 07:00 FiO2 Intake & Output 02/18/24 02/19/24 02/19/24 18:59 06:59 18:59 Intake Total 858 250 309.844 Output Total 5500 0 Balance -4642 250 309.844 Intake: Intake, IV Titration 250 73.844 Amount Heparin Sod,Pork in 0.45% 250 73.844 NaCl 25,000 unit In 0.45 % NaCl 1 250ml.bag @ 10. 02 UNITS/KG/HR 9.999 mls/ hr IV .Q24H [facility] Rx#: [id number] Oral 358 236 Hemodialysis 500 Output: Stool 0 Hemodialysis 3000 Hemodialysis Net Amount 2500 Other: Voiding Method Toilet # Voids 2 1 # Bowel Movements 1 - Labs CBC & Chem 7: 02/18/24 03:54 02/18/24 07:35 Labs: Abnormal Lab Results - Last 24 Hours (Table) 02/18/24 02/18/24 02/19/24 Range/Units 17:16 20:32 01:53 APTT (22.0-30.0) sec POC Glucose (mg/dL) 328 H 354 H 46 L* (70-110) mg/dL 02/19/24 02/19/24 02/19/24 Range/Units 02:21 03:04 03:07 APTT 47.7 H (22.0-30.0) sec POC Glucose (mg/dL) 227 H 158 H (70-110) mg/dL 02/19/24 02/19/24 02/19/24 Range/Units 03:59 05:06 06:06 APTT (22.0-30.0) sec POC Glucose (mg/dL) 196 H 212 H 183 H (70-110) mg/dL 02/19/24 02/19/24 02/19/24 Range/Units 07:10 08:40 09:29 APTT (22.0-30.0) sec POC Glucose (mg/dL) 263 H 189 H 276 H (70-110) mg/dL
[2024-02-19 12:14] LABS: Glucose,Whole Blood 292 mg/dL (70-110)
[2024-02-19 14:11] LABS: Magnesium 1.8 mg/dL (1.5-2.4)
[2024-02-19 14:18] LABS: BUN/Creat Ratio 6.74 Ratio (12.00-20.00); Blood Urea Nitrogen 22.9 mg/dL (9.0-27.0); Calcium 8.5 mg/dL (8.7-10.3); Carbon Dioxide 24.7 mmol/L (21.6-31.8); Chloride 94 mmol/L (96-109); Glucose 151 mg/dL (70-110); Potassium 3.7 mmol/L (3.5-5.5); Sodium 136 mmol/L (135-145)
[2024-02-19 17:20] LABS: Glucose,Whole Blood 208 mg/dL (70-110)
[2024-02-19 19:58] LABS: Glucose,Whole Blood 121 mg/dL (70-110)
[2024-02-20 05:13] LABS: Glucose,Whole Blood 342 mg/dL (70-110)
[2024-02-20] MEDS: ATORVASTATIN 80 MG TAB PO ONE (05:20)
[2024-02-20] MEDS: ASPIRIN 325 MG TAB PO ONE (05:20)
[2024-02-20] MEDS: SODIUM CHLORIDE 0.9% 1,000 ML in EMPTY BAG 1 BAG IV SCH (05:20)
[2024-02-20] MEDS ORDERED: HEPARIN SODIUM,PORCINE 10,000 UNIT in SODIUM CHLORIDE 0.9% 1,000 ML IRRIGATION PRN (07:00)
[2024-02-20] MEDS ORDERED: HEPARIN SODIUM,PORCINE (1 ML) 2,500 UNIT in SODIUM CHLORIDE 0.9% 250 ML IRRIGATION PRN (07:00)
[2024-02-20 07:57] LABS: Glucose,Whole Blood 295 mg/dL (70-110)
--- NOTE | 2024-02-20 09:12 | P.PN ---
Subjective Progress Note Date: 02/20/24 HISTORY OF PRESENT ILLNESS: This is a 73-year-old male with a past medical history significant for CAD with 2 vessel CABG in September 2023, chronic kidney disease on hemodialysis, hyper tension, hyperlipidemia, and diabetes. Patient follows in the office with Dr. Castle. We have been asked to see the patient in consultation for chest pain. Patient examined at the bedside. patient states yesterday he woke up and was having chest discomfort. He states the pain was in the middle of his chest and initially felt like gas pains. He decided to come to the hospital for further evaluation. The patient states he has had no further chest pain since being here. He denied any shortness of breath. Vital signs are currently stable. * EKG reveals sinus mechanism with right bundle branch block. No signs of acute ischemia. * Chest xray bibasilar infiltrates are present. Correlate for atelectasis or pneumonia. * Laboratory data: WBC 5.48. Hemoglobin 10.9. Platelet count 159. Sodium 136. Potassium 4.2. BUN 27. Creatinine 2.62.troponin 0.030. 0.038. 0.044. * Current home cardiac medications include Imdur 30 mg daily, Demadex 40 mg Tuesday, Crestor 10 mg at night, metoprolol tartrate 25 mg in the morning and 12.5 mg at night, Zetia 10 mg daily, Plavix 75 mg daily, aspirin 81 mg daily * patient underwent cardiac catheterization September 2023 revealed 60% mid to distal left main stenosis, 50-60% mid LAD stenosis, 100% circumflex stenosis, 50-60% mid RCA stenosis, I for abnormal of LAD.. * Patient underwent 2 vessel CABG on 10/17/2023 ( LAD and ramus intermedius) * echocardiogram completed in October 2023 revealed ejection fraction 50-55%, mild aortic stenosis 02/18/2024 Patient examined this morning at the bedside. Patient currently denies any chest pain or pressure. He denies any shortness of breath. Patient states he has been up ambulating in the [place] without any further episodes of chest pain. Patient is somewhat anxious to be discharged home. Vital signs are stable. 02/19/2024 Patient examined this morning. Patient is sitting up in the chair. Patient does report having another episode of chest discomfort overnight with ambulation. He remains on IV heparin. Vital signs are stable. 02/19 Patient is seen and examined. He remains on heparin drip and is scheduled today for cardiac catheterization with Dr. Castle. Blood pressure 132/67, heart rate 61, pulse ox 96% on room air. Echocardiogram remains pending. PHYSICAL EXAM: VITAL SIGNS: Reviewed. GENERAL: Well-developed in no acute distress. HEENT: Head is normocephalic. Pupils are equal, round. Sclerae anicteric. Mucous membranes of the mouth are moist. Neck supple. No JVD or thyromegaly LUNGS: Respirations even and unlabored. Lungs essentially clear to auscultation bilaterally. HEART: Regular rate and rhythm. S1 and S2 heard. + Systolic murmur ABDOMEN: Soft. Nondistended. Nontender. EXTREMITIES: Normal range of motion. No clubbing or cyanosis. Peripheral pulses intact. No lower extremity edema NEUROLOGIC: Awake and alert. Oriented x 3. ASSESSMENT: Chest pain Coronary artery disease with recent CABG 2 vessels, left internal thoracic artery to LAD and saphenous vein from aorta to ramus intermedius, September 2023 End-stage renal disease on hemodialysis Elevated troponins, flat, secondary to poor renal clearance, no evidence of myocardial injury or ischemia, no clinical significance Hypertension Hyperlipidemia Diabetes Mild aortic stenosis PLAN: Continue hemodialysis per nephrology. Patient currently on a Tuesday schedule 2D echo ordered. Await results. Continue current cardiac medications Continue IV heparin Patient will undergo cardiac catheterization today with Dr. Castle Further recommendations pending patient course Nurse practitioner note has been reviewed by physician. Signing provider agrees with the documented findings, assessment, and plan of care. Objective - Vital Signs Vital signs: Vital Signs Temp 97.6 F 02/20/24 07:00 Pulse 61 02/20/24 07:00 Resp 16 02/20/24 07:00 BP 132/67 02/20/24 07:00 Pulse Ox 96 02/20/24 07:00 FiO2 Intake & Output 02/19/24 02/20/24 02/20/24 18:59 06:59 18:59 Intake Total 545.844 176.156 Balance 545.844 176.156 Intake: Intake, IV Titration 73.844 176.156 Amount Heparin Sod,Pork in 0.45% 73.844 176.156 NaCl 25,000 unit In 0.45 % NaCl 1 250ml.bag @ 10. 02 UNITS/KG/HR 9.999 mls/ hr IV .Q24H [facility] Rx#: [id number] Oral 472 Other: Voiding Method Toilet # Voids 3 2 # Bowel Movements 1 - Labs CBC & Chem 7: 02/18/24 03:54 02/19/24 03:04 Labs: Abnormal Lab Results - Last 24 Hours (Table) 02/19/24 02/19/24 02/19/24 Range/Units 03:04 08:40 09:29 APTT (22.0-30.0) sec Chloride 94 L (96-109) mmol/L Anion Gap 17.30 H (4.00-12.00) mmol/L Creatinine 3.4 H (0.6-1.5) mg/dL Est GFR (CKD-EPI) 18 L (>=60) BUN/Creatinine Ratio 6.74 L (12.00-20.00) Ratio Glucose 151 H (70-110) mg/dL POC Glucose (mg/dL) 189 H 276 H (70-110) mg/dL Calcium 8.5 L (8.7-10.3) mg/dL 02/19/24 02/19/24 02/19/24 Range/Units 12:12 17:18 19:57 APTT (22.0-30.0) sec Chloride (96-109) mmol/L Anion Gap (4.00-12.00) mmol/L Creatinine (0.6-1.5) mg/dL Est GFR (CKD-EPI) (>=60) BUN/Creatinine Ratio (12.00-20.00) Ratio Glucose (70-110) mg/dL POC Glucose (mg/dL) 292 H 208 H 121 H (70-110) mg/dL Calcium (8.7-10.3) mg/dL 02/20/24 02/20/24 02/20/24 Range/Units 02:56 05:11 07:57 APTT 74.1 H (22.0-30.0) sec Chloride (96-109) mmol/L Anion Gap (4.00-12.00) mmol/L Creatinine (0.6-1.5) mg/dL Est GFR (CKD-EPI) (>=60) BUN/Creatinine Ratio (12.00-20.00) Ratio Glucose (70-110) mg/dL POC Glucose (mg/dL) 342 H 295 H (70-110) mg/dL Calcium (8.7-10.3) mg/dL
[2024-02-20 10:24] LABS: Magnesium 1.8 mg/dL (1.5-2.4)
[2024-02-20 10:54] LABS: Blood Urea Nitrogen 33.2 mg/dL (9.0-27.0); Calcium 8.5 mg/dL (8.7-10.3); Carbon Dioxide 25.6 mmol/L (21.6-31.8); Chloride 94 mmol/L (96-109); Glucose 278 mg/dL (70-110); Potassium 5.1 mmol/L (3.5-5.5); Sodium 134 mmol/L (135-145)
[2024-02-20 12:17] LABS: Glucose,Whole Blood 164 mg/dL (70-110)
--- NOTE | 2024-02-20 13:23 | P.PN ---
Subjective patient is seen for follow-up for end-stage renal disease. Scheduled for cardiac catheterization. Patient is maintained on IV fluids. no complaints of shortness of breath however patient has significant lower extremity edema. Objective - Vital Signs Vital signs: Vital Signs Temp 97.6 F 02/20/24 07:00 Pulse 61 02/20/24 07:00 Resp 16 02/20/24 07:00 BP 132/67 02/20/24 07:00 Pulse Ox 96 02/20/24 07:00 FiO2 Intake & Output 02/19/24 02/20/24 02/20/24 18:59 06:59 18:59 Intake Total 545.844 176.156 Balance 545.844 176.156 Intake: Intake, IV Titration 73.844 176.156 Amount Heparin Sod,Pork in 0.45% 73.844 176.156 NaCl 25,000 unit In 0.45 % NaCl 1 250ml.bag @ 10. 02 UNITS/KG/HR 9.999 mls/ hr IV .Q24H [facility] Rx#: [id number] Oral 472 Other: Voiding Method Toilet # Voids 3 2 # Bowel Movements 1 - Exam patient is awake, comfortable, no acute distress. Examination of the heart S1 and S2 Examination of the lungs bilateral breath sounds are heard Abdomen nontender Examination of lower extremity shows edema 2+ bilaterally [employer] exam is grossly intact - Labs CBC & Chem 7: 02/18/24 03:54 02/20/24 02:56 Labs: Abnormal Lab Results - Last 24 Hours (Table) 02/19/24 02/19/24 02/19/24 Range/Units 03:04 17:18 19:57 APTT (22.0-30.0) sec Sodium (135-145) mmol/L Chloride 94 L (96-109) mmol/L Anion Gap 17.30 H (4.00-12.00) mmol/L BUN (9.0-27.0) mg/dL Creatinine 3.4 H (0.6-1.5) mg/dL Est GFR (CKD-EPI) 18 L (>=60) BUN/Creatinine Ratio 6.74 L (12.00-20.00) Ratio Glucose 151 H (70-110) mg/dL POC Glucose (mg/dL) 208 H 121 H (70-110) mg/dL Calcium 8.5 L (8.7-10.3) mg/dL 02/20/24 02/20/24 02/20/24 Range/Units 02:56 02:56 05:11 APTT 74.1 H (22.0-30.0) sec Sodium 134 L (135-145) mmol/L Chloride 94 L (96-109) mmol/L Anion Gap 14.40 H (4.00-12.00) mmol/L BUN 33.2 H (9.0-27.0) mg/dL Creatinine 4.1 H (0.6-1.5) mg/dL Est GFR (CKD-EPI) 15 L (>=60) BUN/Creatinine Ratio 8.10 L (12.00-20.00) Ratio Glucose 278 H (70-110) mg/dL POC Glucose (mg/dL) 342 H (70-110) mg/dL Calcium 8.5 L (8.7-10.3) mg/dL 02/20/24 02/20/24 Range/Units 07:57 12:16 APTT (22.0-30.0) sec Sodium (135-145) mmol/L Chloride (96-109) mmol/L Anion Gap (4.00-12.00) mmol/L BUN (9.0-27.0) mg/dL Creatinine (0.6-1.5) mg/dL Est GFR (CKD-EPI) (>=60) BUN/Creatinine Ratio (12.00-20.00) Ratio Glucose (70-110) mg/dL POC Glucose (mg/dL) 295 H 164 H (70-110) mg/dL Calcium (8.7-10.3) mg/dL Assessment and Plan Assessment: 1. End-stage renal disease maintained on hemodialysis on Tuesday schedule. 2. Coronary disease status post cardiac stents and CABG. 3. Chest pain. cardiology following. scheduled for cardiac catheterization today. 4. Diabetes mellitus. 5. Anemia of chronic kidney disease. Plan: DC IV fluids Hemodialysis in a.m.
--- NOTE | 2024-02-20 14:33 | P.PN ---
Subjective Progress Note Date: 02/20/24 Subjective: patient seen at bedside. no acute events overnight. Still having some exertional chest pain. Vital signs reviewed. Physical examination: General: non toxic, no distress, appears at stated age, obese Derm: no unusual rashes/lesions, warm Head: atraumatic, normocephalic, symmetric Eyes: EOMI, no lid lag, anicteric sclera, pupils equal round reactive to light ENT: Nose and ears atraumatic Neck: No cervical lymphadenopathy, trachea midline, supple Mouth: no lip lesion, mucus membranes moist Cardiovascular: S1S2 reg, grade 3 systolic murmur, positive dorsalis pedis pulse bilateral, bilateral grade 1 pitting edema Lungs: CTA bilateral, no rhonchi, no rales, no accessory muscle use Abdominal: soft, nontender to palpation, no guarding Ext: muscle strength 5 out of 5 in all 4 extremities grossly, no gross muscle atrophy, no contractures, Neuro: CN II-XI grossly intact, no gross focal neuro deficits Psych: Alert, oriented, appropriate affect Pertinent Labs From Today: Labs: Blood sugars range between 164-295, sodium 134, potassium 5.1, BUN 14.4, Cr 4.1 CO2 25.6, magnesium 1.8, APTT 74.1 Imaging: Echo pending, otherwise no new imaging Assessment/Plan: 73-year-old male with past medical history coronary disease status post stents in 2004, 2013 and CABG on 10/17/2023, ESRD on hemodialysis, chronic diastolic heart failure with ejection fraction of 50 to 55%, type 2 diabetes on insulin pump, COPD and hypertension presented to ER with gradually worsening substernal chest pain. Currently on heparin drip. Left heart cath today. NSTEMI, likely type 1 Coronary Artery Disease, s/p stents (2004, 2013), CABG 10/17/2023 Dyslipidemia Continue heparin drip, monitor APTT, daily CBC, monitor for bleeding Continue with Aspirin 81 mg po daily, continue Lipitor 80 mg po qhs, ezetimibe 10 mg p.o. daily maintain metoprolol 25 twice a day per cardiology Troponins: 0.030, 0.038, 0.044 Continue with O2 administration with 2L via Nasal cannula Sublingual Nitroglycerin 0.4 mg prn Continue Imdur to 60mg daily 2-D echo pending Cardiology note reviewed. Left heart cath today. pain management: acetaminophen 1000 mg PO q6hr for mild/mod pain, norco 5-325 PO q4hr for mod/severe pain. Type 2 Diabetes, on insulin pump - HbA1C 8.8 - Started on sliding scale short acting insulin -Patient is a brittle diabetic, Levemir discontinued due to episode of hypoglycemia - Continue to monitor Blood glucose levels - hold insulin pump, will restart once he is done with left heart cath Elevated Bicarbonate, likely due to chronic hypercapnia secondary to COPD, resolved Continue to monitor bicarb levels Continue with O2 administration with 2L via Nasal cannula Resume his home medication albuterol 2 puffs every 4 hours Duoneb 3ml inhalation rt QID prn ESRD on hemodialysis Normocytic anemia torsemide 40 mg PO hs ESRD maintained on hemodialysis on Tuesday, , Tuesday. Elevated BUN and Creatinine in light of ESRD Continue to monitor BMP Nephrology note reviewed, continue hemodialysis as scheduled Ferritin 991, Iron 69, TIBC 237, Transferrin 169.0, phosphorus 4.1 Resolved: Mild hyponatremia Chronic conditions: GERD: Resume Protonix 40 mg p.o. daily BPH: Flomax 0.4 mg p.o. nightly Anxiety: escitalopram 10 mg p.o. daily and Xanax 0.5 mg p.o. nightly Restless Leg Syndrome: 0.4 mg PO HS DVT prophylaxis: IV heparin F: n/a E: replete as needed N: heart healthy diet A: ambulatory Disposition: Likely home, pending clinical course I have seen and evaluated the patient today. Discussed with the resident and agree with resident's findings and plan as documented in the resident's note. Changes highlighted in blue font. Objective - Vital Signs Vital signs: Vital Signs Temp 97.6 F 02/20/24 07:00 Pulse 61 02/20/24 07:00 Resp 16 02/20/24 07:00 BP 132/67 02/20/24 07:00 Pulse Ox 96 02/20/24 07:00 FiO2 Intake & Output 02/19/24 02/20/24 02/20/24 18:59 06:59 18:59 Intake Total 545.844 176.156 Balance 545.844 176.156 Intake: Intake, IV Titration 73.844 176.156 Amount Heparin Sod,Pork in 0.45% 73.844 176.156 NaCl 25,000 unit In 0.45 % NaCl 1 250ml.bag @ 10. 02 UNITS/KG/HR 9.999 mls/ hr IV .Q24H [facility] Rx#: [id number] Oral 472 Other: Voiding Method Toilet # Voids 3 2 # Bowel Movements 1 - Labs CBC & Chem 7: 02/18/24 03:54 02/20/24 02:56 Labs: Abnormal Lab Results - Last 24 Hours (Table) 02/19/24 02/19/24 02/20/24 Range/Units 17:18 19:57 02:56 APTT (22.0-30.0) sec Sodium 134 L (135-145) mmol/L Chloride 94 L (96-109) mmol/L Anion Gap 14.40 H (4.00-12.00) mmol/L BUN 33.2 H (9.0-27.0) mg/dL Creatinine 4.1 H (0.6-1.5) mg/dL Est GFR (CKD-EPI) 15 L (>=60) BUN/Creatinine Ratio 8.10 L (12.00-20.00) Ratio Glucose 278 H (70-110) mg/dL POC Glucose (mg/dL) 208 H 121 H (70-110) mg/dL Calcium 8.5 L (8.7-10.3) mg/dL 02/20/24 02/20/24 02/20/24 Range/Units 02:56 05:11 07:57 APTT 74.1 H (22.0-30.0) sec Sodium (135-145) mmol/L Chloride (96-109) mmol/L Anion Gap (4.00-12.00) mmol/L BUN (9.0-27.0) mg/dL Creatinine (0.6-1.5) mg/dL Est GFR (CKD-EPI) (>=60) BUN/Creatinine Ratio (12.00-20.00) Ratio Glucose (70-110) mg/dL POC Glucose (mg/dL) 342 H 295 H (70-110) mg/dL Calcium (8.7-10.3) mg/dL 02/20/24 Range/Units 12:16 APTT (22.0-30.0) sec Sodium (135-145) mmol/L Chloride (96-109) mmol/L Anion Gap (4.00-12.00) mmol/L BUN (9.0-27.0) mg/dL Creatinine (0.6-1.5) mg/dL Est GFR (CKD-EPI) (>=60) BUN/Creatinine Ratio (12.00-20.00) Ratio Glucose (70-110) mg/dL POC Glucose (mg/dL) 164 H (70-110) mg/dL Calcium (8.7-10.3) mg/dL
[2024-02-20 17:10] LABS: Glucose,Whole Blood 222 mg/dL (70-110)
[2024-02-20 21:37] LABS: Glucose,Whole Blood 310 mg/dL (70-110)
[2024-02-21 06:04] LABS: Glucose,Whole Blood 224 mg/dL (70-110)
--- NOTE | 2024-02-21 09:52 | P.PN ---
Subjective Progress Note Date: 02/21/24 HISTORY OF PRESENT ILLNESS: This is a 73-year-old male with a past medical history significant for CAD with 2 vessel CABG in September 2023, chronic kidney disease on hemodialysis, hyper tension, hyperlipidemia, and diabetes. Patient follows in the office with Dr. Castle. We have been asked to see the patient in consultation for chest pain. Patient examined at the bedside. patient states yesterday he woke up and was having chest discomfort. He states the pain was in the middle of his chest and initially felt like gas pains. He decided to come to the hospital for further evaluation. The patient states he has had no further chest pain since being here. He denied any shortness of breath. Vital signs are currently stable. * EKG reveals sinus mechanism with right bundle branch block. No signs of acute ischemia. * Chest xray bibasilar infiltrates are present. Correlate for atelectasis or pneumonia. * Laboratory data: WBC 5.48. Hemoglobin 10.9. Platelet count 159. Sodium 136. Potassium 4.2. BUN 27. Creatinine 2.62.troponin 0.030. 0.038. 0.044. * Current home cardiac medications include Imdur 30 mg daily, Demadex 40 mg Tuesday, Crestor 10 mg at night, metoprolol tartrate 25 mg in the morning and 12.5 mg at night, Zetia 10 mg daily, Plavix 75 mg daily, aspirin 81 mg daily * patient underwent cardiac catheterization September 2023 revealed 60% mid to distal left main stenosis, 50-60% mid LAD stenosis, 100% circumflex stenosis, 50-60% mid RCA stenosis, I for abnormal of LAD.. * Patient underwent 2 vessel CABG on 10/17/2023 ( LAD and ramus intermedius) * echocardiogram completed in October 2023 revealed ejection fraction 50-55%, mild aortic stenosis 02/18/2024 Patient examined this morning at the bedside. Patient currently denies any chest pain or pressure. He denies any shortness of breath. Patient states he has been up ambulating in the [place] without any further episodes of chest pain. Patient is somewhat anxious to be discharged home. Vital signs are stable. 02/19/2024 Patient examined this morning. Patient is sitting up in the chair. Patient does report having another episode of chest discomfort overnight with ambulation. He remains on IV heparin. Vital signs are stable. 02/19 Patient is seen and examined. He remains on heparin drip and is scheduled today for cardiac catheterization with Dr. Castle. Blood pressure 132/67, heart rate 61, pulse ox 96% on room air. Echocardiogram remains pending. 02/20 Patient is seen and examined. Cardiac catheterization scheduled for yesterday has been postponed until today. Blood pressure 133/61, heart rate 56, pulse ox 93% on room air. Echocardiogram has been taken and report is pending. PHYSICAL EXAM: VITAL SIGNS: Reviewed. GENERAL: Well-developed in no acute distress. HEENT: Head is normocephalic. Pupils are equal, round. Sclerae anicteric. Mucous membranes of the mouth are moist. Neck supple. No JVD or thyromegaly LUNGS: Respirations even and unlabored. Lungs essentially clear to auscultation bilaterally. HEART: Regular rate and rhythm. S1 and S2 heard. + Systolic murmur ABDOMEN: Soft. Nondistended. Nontender. EXTREMITIES: Normal range of motion. No clubbing or cyanosis. Peripheral pulse s intact. No lower extremity edema NEUROLOGIC: Awake and alert. Oriented x 3. ASSESSMENT: Chest pain Coronary artery disease with recent CABG 2 vessels, left internal thoracic artery to LAD and saphenous vein from aorta to ramus intermedius, September 2023 End-stage renal disease on hemodialysis Elevated troponins, flat, secondary to poor renal clearance, no evidence of myocardial injury or ischemia, no clinical significance Hypertension Hyperlipidemia Diabetes Mild aortic stenosis PLAN: Continue hemodialysis per nephrology. Patient currently on a Tuesday schedule 2D echo ordered. Await results. Continue current cardiac medications Continue IV heparin Patient will undergo cardiac catheterization today with Dr. Castle Further recommendations pending patient course Nurse practitioner note has been reviewed by physician. Signing provider agrees with the documented findings, assessment, and plan of care. Objective - Vital Signs Vital signs: Vital Signs Temp 97.5 F L 02/21/24 07:15 Pulse 56 L 02/21/24 07:15 Resp 15 02/21/24 07:15 BP 133/61 02/21/24 07:15 Pulse Ox 93 L 02/21/24 07:15 FiO2 Intake & Output 02/20/24 02/21/24 02/21/24 18:59 06:59 18:59 Intake Total 490 540 Balance 490 540 Intake: Intake, IV Titration 250 Amount Heparin Sod,Pork in 0.45% 250 NaCl 25,000 unit In 0.45 % NaCl 1 250ml.bag @ 10. 02 UNITS/KG/HR 9.999 mls/ hr IV .Q24H [facility] Rx#: [id number] Oral 240 540 Other: Voiding Method Toilet # Voids 2 1 - Labs CBC & Chem 7: 02/18/24 03:54 02/20/24 02:56 Labs: Abnormal Lab Results - Last 24 Hours (Table) 02/20/24 02/20/24 02/20/24 Range/Units 02:56 07:57 12:16 APTT (22.0-30.0) sec Sodium 134 L (135-145) mmol/L Chloride 94 L (96-109) mmol/L Anion Gap 14.40 H (4.00-12.00) mmol/L BUN 33.2 H (9.0-27.0) mg/dL Creatinine 4.1 H (0.6-1.5) mg/dL Est GFR (CKD-EPI) 15 L (>=60) BUN/Creatinine Ratio 8.10 L (12.00-20.00) Ratio Glucose 278 H (70-110) mg/dL POC Glucose (mg/dL) 295 H 164 H (70-110) mg/dL Calcium 8.5 L (8.7-10.3) mg/dL 02/20/24 02/20/24 02/21/24 Range/Units 17:09 21:34 06:03 APTT (22.0-30.0) sec Sodium (135-145) mmol/L Chloride (96-109) mmol/L Anion Gap (4.00-12.00) mmol/L BUN (9.0-27.0) mg/dL Creatinine (0.6-1.5) mg/dL Est GFR (CKD-EPI) (>=60) BUN/Creatinine Ratio (12.00-20.00) Ratio Glucose (70-110) mg/dL POC Glucose (mg/dL) 222 H 310 H 224 H (70-110) mg/dL Calcium (8.7-10.3) mg/dL 02/21/24 Range/Units 07:06 APTT 75.6 H (22.0-30.0) sec Sodium (135-145) mmol/L Chloride (96-109) mmol/L Anion Gap (4.00-12.00) mmol/L BUN (9.0-27.0) mg/dL Creatinine (0.6-1.5) mg/dL Est GFR (CKD-EPI) (>=60) BUN/Creatinine Ratio (12.00-20.00) Ratio Glucose (70-110) mg/dL POC Glucose (mg/dL) (70-110) mg/dL Calcium (8.7-10.3) mg/dL
[2024-02-21 11:55] LABS: Glucose,Whole Blood 231 mg/dL (70-110)
[2024-02-21] MEDS ORDERED: LIDOCAINE 1% INJ 10MG/ML (20 ML MDV) ONE (12:21)
[2024-02-21] MEDS ORDERED: fentaNYL (PF) 50 MCG/ML 2 ML AMP ONE (12:38)
[2024-02-21] MEDS: MIDAZOLAM 2 MG/2 ML VIAL IVP ONE (12:53)
[2024-02-21] MEDS: fentaNYL (PF) 50 MCG/ML 2 ML AMP IVP ONE (12:53)
[2024-02-21] MEDS: LIDOCAINE 1% INJ 10MG/ML (20 ML MDV) SQ ONE (12:57)
[2024-02-21] MEDS ORDERED: HEPARIN SODIUM 1,000 UN/ML (10ML VL) ONE (13:17)
[2024-02-21] MEDS: HEPARIN SODIUM 1,000 UN/ML (10ML VL) IV ONE (13:18)
[2024-02-21] MEDS ORDERED: CLOPIDOGREL 75 MG TAB ONE (13:32)
[2024-02-21] MEDS: IV FLUID CONTINUATION 1,000 ML IV ONE (13:35)
[2024-02-21] MEDS: CLOPIDOGREL 75 MG TAB PO ONE (13:35)
[2024-02-21] MEDS: IOPAMIDOL-370 125ML BTL INJ ONE (14:35)
--- NOTE | 2024-02-21 14:50 | P.PN ---
Subjective Progress Note Date: 02/21/24 Subjective: patient seen at bedside. no acute events overnight. Still having some exertional chest pain. Vital signs reviewed. Physical examination: General: non toxic, no distress, appears at stated age, obese Derm: no unusual rashes/lesions, warm Head: atraumatic, normocephalic, symmetric Eyes: EOMI, no lid lag, anicteric sclera, pupils equal round reactive to light ENT: Nose and ears atraumatic Neck: No cervical lymphadenopathy, trachea midline, supple Mouth: no lip lesion, mucus membranes moist Cardiovascular: S1S2 reg, grade 3 systolic murmur, positive dorsalis pedis pulse bilateral, bilateral grade 1 pitting edema Lungs: CTA bilateral, no rhonchi, no rales, no accessory muscle use Abdominal: soft, nontender to palpation, no guarding Ext: muscle strength 5 out of 5 in all 4 extremities grossly, no gross muscle atrophy, no contractures, Neuro: CN II-XI grossly intact, no gross focal neuro deficits Psych: Alert, oriented, appropriate affect Pertinent Labs From Today: Labs: Blood sugars range between 224-231, APTT 75.6 Imaging: Echo pending, otherwise no new imaging Assessment/Plan: 73-year-old male with past medical history coronary disease status post stents in 2004, 2013 and CABG on 10/17/2023, ESRD on hemodialysis, chronic diastolic heart failure with ejection fraction of 50 to 55%, type 2 diabetes on insulin pump, COPD and hypertension presented to ER with gradually worsening substernal chest pain. Currently on heparin drip. Left heart cath today. NSTEMI, likely type 1 Coronary Artery Disease, s/p stents (2004, 2013), CABG 10/17/2023 Dyslipidemia Continue heparin drip, monitor APTT, daily CBC, monitor for bleeding Continue with Aspirin 81 mg po daily, continue Lipitor 80 mg po qhs, ezetimibe 10 mg p.o. daily maintain metoprolol 25 twice a day per cardiology Troponins: 0.030, 0.038, 0.044 Continue with O2 administration with 2L via Nasal cannula Sublingual Nitroglycerin 0.4 mg prn Continue Imdur to 60mg daily 2-D echo pending Cardiology note reviewed. Left heart cath today. pain management: acetaminophen 1000 mg PO q6hr for mild/mod pain, norco 5-325 PO q4hr for mod/severe pain. Type 2 Diabetes, on insulin pump - HbA1C 8.8 - Started on sliding scale short acting insulin -Patient is a brittle diabetic, Levemir discontinued due to episode of hypoglycemia - Continue to monitor Blood glucose levels - hold insulin pump, will restart once he is done with left heart cath Elevated Bicarbonate, likely due to chronic hypercapnia secondary to COPD, resolved Continue to monitor bicarb levels Continue with O2 administration with 2L via Nasal cannula Resume his home medication albuterol 2 puffs every 4 hours Duoneb 3ml inhalation rt QID prn ESRD on hemodialysis Normocytic anemia torsemide 40 mg PO hs ESRD maintained on hemodialysis on Tuesday, , Tuesday. Elevated BUN and Creatinine in light of ESRD Continue to monitor BMP Nephrology note reviewed, continue hemodialysis as scheduled Ferritin 991, Iron 69, TIBC 237, Transferrin 169.0, phosphorus 4.1 scheduled dialysis post cath Resolved: Mild hyponatremia Chronic conditions: GERD: Resume Protonix 40 mg p.o. daily BPH: Flomax 0.4 mg p.o. nightly Anxiety: escitalopram 10 mg p.o. daily and Xanax 0.5 mg p.o. nightly Restless Leg Syndrome: 0.4 mg PO HS DVT prophylaxis: IV heparin F: n/a E: replete as needed N: heart healthy diet A: ambulatory Disposition: Likely home, pending clinical course I have seen and evaluated the patient today. Discussed with the resident and agree with the residents subjective and objective as documented in the emanuel mcdaniels's note. The assessment and plan was discussed and outlined as below. Underwent LHC today with PCI to mid RCA with consideration of intervention of left main to ramus. Objective - Vital Signs Vital signs: Vital Signs Temp 97.5 F L 02/21/24 07:15 Pulse 56 L 02/21/24 07:15 Resp 15 02/21/24 07:15 BP 133/61 02/21/24 07:15 Pulse Ox 93 L 02/21/24 07:15 FiO2 Intake & Output 02/20/24 02/21/24 02/21/24 18:59 06:59 18:59 Intake Total 490 540 168.692 Balance 490 540 168.692 Intake: Intake, IV Titration 250 168.692 Amount Heparin Sod,Pork in 0.45% 250 168.692 NaCl 25,000 unit In 0.45 % NaCl 1 250ml.bag @ 10. 02 UNITS/KG/HR 9.999 mls/ hr IV .Q24H [facility] Rx#: [id number] Oral 240 540 Other: Voiding Method Toilet Toilet # Voids 2 1 - Labs CBC & Chem 7: 02/18/24 03:54 02/21/24 07:06 Labs: Abnormal Lab Results - Last 24 Hours (Table) 02/20/24 02/20/24 02/21/24 Range/Units 17:09 21:34 06:03 APTT (22.0-30.0) sec POC Glucose (mg/dL) 222 H 310 H 224 H (70-110) mg/dL 02/21/24 02/21/24 Range/Units 07:06 11:53 APTT 75.6 H (22.0-30.0) sec POC Glucose (mg/dL) 231 H (70-110) mg/dL
[2024-02-21 14:57] LABS: BUN/Creat Ratio 8.34 Ratio (12.00-20.00); Blood Urea Nitrogen 39.2 mg/dL (9.0-27.0); Calcium 8.4 mg/dL (8.7-10.3); Carbon Dioxide 20.8 mmol/L (21.6-31.8); Chloride 98 mmol/L (96-109); Glucose 234 mg/dL (70-110); Potassium 4.6 mmol/L (3.5-5.5); Sodium 137 mmol/L (135-145)
[2024-02-21] MEDS ORDERED: RX INFO: IV CONTRAST WAS GIVEN 1 EACH MISC MISCELLANE PRN (14:59)
[2024-02-21] MEDS ORDERED: ATROPINE SULFATE 0.1 MG/ML 10ML SYRINGE IV PRN (14:59)
[2024-02-21] MEDS ORDERED: MAG HYDROX/AL HYDROX/SIMETH 30 ML CUP PO PRN (14:59)
[2024-02-21] MEDS ORDERED: ZOLPIDEM 5 MG TAB PO PRN (14:59)
--- NOTE | 2024-02-21 15:10 | P.PRCINT ---
Percutaneous Coronary Int. - Percutaneous Coronary Intervention Percutaneous Coronary Intervention: PROCEDURES PERFORMED: Left heart catheterization, bilateral coronary angiography, ultrasound guided arterial access, iFR ramus, iFR RCA, SVG to ramus angiography, TIAN to LAD angiography, PCI proximal to mid RCA with a 2.5 x 48mm Xience DEBBIE, post dilated with a 3.25mm NC balloon, IVUS RCA, shockwave lithotripsy of RCA. INDICATION: unstable angina with history of two-vessel CABG TIAN to LAD and SVG to ramus CONSENT:I have discussed the risks, benefits and alternative therapies for the above-mentioned procedure and for both sedation/analgesia as well as necessary blood product administration, if indicated, as they pertain to this patient. The patient has indicated understanding and acceptance of the risks and procedures discussed. PROCEDURE: After the risks, benefits and alternatives of the above mentioned procedure explained in detail with the patient, informed consent was obtained. Patient was taken to the catheterization lab and prepped and draped in usual fashion. Ultrasound guidance was used to assess for arterial access. 1% lidocaine was used to anesthetize the right femoral artery given previous successful secondary to calcified arteries. A 6-[place] sheath was placed in the right femoral artery using modified Seldinger technique and ultrasound guidance. Left coronary angiography was performed with a 6-[place] JL 4.0 catheter and right coronary angiography was performed with a 6-[place] FR4 catheter in various views. A 6-[place] FR4 catheter was inserted into the left ventricle and pressure measurements were obtained. SVG to ramus and TIAN to LAD angiography was performed with a 6-[place] FR4 catheter. The decision was made to perform functional assessment of the ramus and RCA. Heparin was given. Using the FR4, a 0.014 pressure wire was advanced in the ostium and then normalized and advanced 1 cm distal to the mid RCA lesion and iFR was performed. This was grossly abnormal at 0.76. There was dampening of the RCA with engagement with the 6-[place] catheter. Next using the fall 4 catheter, the 0.014 pressure wire was advanced the left main and normalized and then advanced 1 cm into the mid ramus. iFR was normal at 0.96. therefore the culprit lesion was felt to be the RCA. The decision was made to perform PCI of the RCA. A 6-[place] JL 0.75 guide was using gauge RCA. A 0.014 BMW was advanced in the distal RCA. the lesion was heavily calcified. Predilation was performed with a 2.5 balloon. Intravascular ultrasound showed diffuse 360 calcification. Shock wave lithotripsy was performed with a 2.5 mm balloon. Predilation was performed with a 2.75 noncompliant balloon. Next a 2.5 x 48 mm Xience DEBBIE was placed at the origin to mid RCA. The stent was postdilated with a 3.25 mm noncompliant balloon. Final angiograms as well as intravascular ultrasound was performed with well-expanded stent and no dissection. Preintervention there was 80% stenosis and GENE-3 flow and postintervention there is less than 10% stenosis with GENE 3 flow. The right femoral sheath was left in place to be removed at a later time secondary to severe calcification upon placing sheath. The patient tolerated the procedure well. Patient was transported back to the post catheterization holding area in stable condition. Conscious Sedation: Patient was monitored under the direct supervision of myself for conscious sedation using Versed and fentanyl for a total duration of 80 minutes HEMODYNAMICS: aorta: 134/78 LV: 135/5, LVEDP 18 SELECTIVE CORONARY ARTERIOGRAPHY: LEFT MAIN: The left main is a large caliber vessel which trifurcates into the LAD, ramus and circumflex. There is 70% left main stenosis. LEFT ANTERIOR DESCENDING CORONARY ARTERY: LAD is a large caliber vessel which wraps around to the apex. There is diffuse heavily calcified LAD with 50% proximal LAD, 80% mid LAD stenosis. There is competitive flow to the distal LAD with the TIAN. RAMUS: ramus is moderate caliber with mild luminal irregularities, 20-30% stenosis. LEFT CIRCUMFLEX CORONARY ARTERY: Left circumflex is a moderate caliber vessel with 100% proximal stenosis. RIGHT CORONARY ARTERY: The right coronary artery is a large caliber vessel which gives off a PDA and PLV branch and is the dominant vessel. There is diffuse disease throughout the RCA with 30-40% calcification throughout and more focal 80% proximal and 70-80% mid RCA stenosis. SVG to ramus: 100% occluded proximally TIAN to LAD: Widely patent FINAL IMPRESSION: 1. CAD as described above including 70% left main stenosis, 50% proximal LAD, 80% mid LAD, 20-30% ramus, 100% circumflex, 80% RCA stenosis 2. Elevated left sided filling pressures 3. iFR normal of left main into ramus, iFR abnormal RCA 4. S/p PCI proximal to mid RCA with a 2.5 x 48mm Xience DEBBIE, post dilated with a 3.25mm NC balloon PLAN: 1. Aggressive risk factor modification per most recent ACC/AHA guidelines. 2. continue dual antiplatelets with aspirin Plavix for 12 months 3. If patient still having significant angina may consider intervention of left main to ramus.
[2024-02-21 17:41] LABS: Glucose,Whole Blood 194 mg/dL (70-110)
[2024-02-21] MEDS: SODIUM CHLORIDE 0.9% 1,000 ML in EMPTY BAG 1 BAG IV SCH (17:44)
[2024-02-21] MEDS: HYDROcodone/APAP 5-325MG 1 EACH TAB PO PRN (19:41)
[2024-02-21 21:12] LABS: Glucose,Whole Blood 135 mg/dL (70-110)
[2024-02-21 21:22] VITALS: RESP 18
[2024-02-22 06:03] LABS: Glucose,Whole Blood 235 mg/dL (70-110)
[2024-02-22 07:51] VITALS: BP 111/46; PULSE 62; TEMP 98.4
[2024-02-22] MEDS: CLOPIDOGREL 75 MG TAB PO SCH (08:44)
[2024-02-22 08:59] LABS: BUN/Creat Ratio 6.65 Ratio (12.00-20.00); Blood Urea Nitrogen 24.6 mg/dL (9.0-27.0); Glucose 236 mg/dL (70-110)
[2024-02-22 09:00] LABS: Calcium 8.5 mg/dL (8.7-10.3); Carbon Dioxide 26.5 mmol/L (21.6-31.8); Chloride 95 mmol/L (96-109); Potassium 3.8 mmol/L (3.5-5.5); Sodium 134 mmol/L (135-145)
[2024-02-22] MEDS: ONDANSETRON 4 MG/2 ML VIAL IVP STA (09:49)
--- NOTE | 2024-02-22 09:52 | P.PN ---
Subjective Progress Note Date: 02/22/24 HISTORY OF PRESENT ILLNESS: This is a 73-year-old male with a past medical history significant for CAD with 2 vessel CABG in September 2023, chronic kidney disease on hemodialysis, hyper tension, hyperlipidemia, and diabetes. Patient follows in the office with Dr. Castle. We have been asked to see the patient in consultation for chest pain. Patient examined at the bedside. patient states yesterday he woke up and was having chest discomfort. He states the pain was in the middle of his chest and initially felt like gas pains. He decided to come to the hospital for further evaluation. The patient states he has had no further chest pain since being here. He denied any shortness of breath. Vital signs are currently stable. * EKG reveals sinus mechanism with right bundle branch block. No signs of acute ischemia. * Chest xray bibasilar infiltrates are present. Correlate for atelectasis or pneumonia. * Laboratory data: WBC 5.48. Hemoglobin 10.9. Platelet count 159. Sodium 136. Potassium 4.2. BUN 27. Creatinine 2.62.troponin 0.030. 0.038. 0.044. * Current home cardiac medications include Imdur 30 mg daily, Demadex 40 mg Tuesday, Crestor 10 mg at night, metoprolol tartrate 25 mg in the morning and 12.5 mg at night, Zetia 10 mg daily, Plavix 75 mg daily, aspirin 81 mg daily * patient underwent cardiac catheterization September 2023 revealed 60% mid to distal left main stenosis, 50-60% mid LAD stenosis, 100% circumflex stenosis, 50-60% mid RCA stenosis, I for abnormal of LAD.. * Patient underwent 2 vessel CABG on 10/17/2023 ( LAD and ramus intermedius) * echocardiogram completed in October 2023 revealed ejection fraction 50-55%, mild aortic stenosis 02/18/2024 Patient examined this morning at the bedside. Patient currently denies any chest pain or pressure. He denies any shortness of breath. Patient states he has been up ambulating in the [place] without any further episodes of chest pain. Patient is somewhat anxious to be discharged home. Vital signs are stable. 02/19/2024 Patient examined this morning. Patient is sitting up in the chair. Patient does report having another episode of chest discomfort overnight with ambulation. He remains on IV heparin. Vital signs are stable. 02/19 Patient is seen and examined. He remains on heparin drip and is scheduled today for cardiac catheterization with Dr. Castle. Blood pressure 132/67, heart rate 61, pulse ox 96% on room air. Echocardiogram remains pending. 02/20 Patient is seen and examined. Cardiac catheterization scheduled for yesterday has been postponed until today. Blood pressure 133/61, heart rate 56, pulse ox 93% on room air. Echocardiogram has been taken and report is pending. 02/21 Yesterday, patient underwent cardiac catheterization with Dr. Castle which revealed CAD with 70% left main stenosis, 50% proximal LAD, 80% mid LAD, 20 to 30% ramus, 100% circumflex, 80% RCA stenosis. iFR normal on the left main into the ramus and IFR abnormal in the RCA. Patient subsequently underwent PCI of the mid RCA with DEBBIE. This morning, patient denies having any chest pain, no shortness of breath. Blood pressure 111/46, heart rate 62, pulse ox 97% on room air. Echocardiogram reveals PHYSICAL EXAM: VITAL SIGNS: Reviewed. GENERAL: Well-developed in no acute distress. HEENT: Head is normocephalic. Pupils are equal, round. Sclerae anicteric. Mucous membranes of the mouth are moist. Neck supple. No JVD or thyromegaly LUNGS: Respirations even and unlabored. Lungs essentially clear to auscultation bilaterally. HEART: Regular rate and rhythm. S1 and S2 heard. + Systolic murmur ABDOMEN: Soft. Nondistended. Nontender. EXTREMITIES: Normal range of motion. No clubbing or cyanosis. Peripheral pulses intact. No lower extremity edema NEUROLOGIC: Awake and alert. Oriented x 3. ASSESSMENT: Chest pain Coronary artery disease with recent CABG 2 vessels, left internal thoracic artery to LAD and saphenous vein from aorta to ramus intermedius, September 2023 End-stage renal disease on hemodialysis Elevated troponins, flat, secondary to poor renal clearance, no evidence of myocardial injury or ischemia, no clinical significance Hypertension Hyperlipidemia Diabetes Mild aortic stenosis PLAN: Continue hemodialysis per nephrology. Patient currently on a Tuesday schedule Continue patient on current cardiac medications: Aspirin 81 mg daily, Crestor 20 mg at bedtime, Plavix 75 mg daily, Zetia 10 mg daily, Imdur 60 mg daily, Lopressor 25 mg twice daily, Demadex 40 mg Tuesday New cardiac prescriptions have been sent to his pharmacy. Patient is cleared for discharge and will follow-up with Dr. Castle in 1 week to 2 weeks. Nurse practitioner note has been reviewed by physician. Signing provider agrees with the documented findings, assessment, and plan of care. Objective - Vital Signs Vital signs: Vital Signs Temp 98.4 F 02/22/24 07:22 Pulse 62 02/22/24 07:22 Resp 18 02/22/24 07:22 BP 111/46 02/22/24 07:22 Pulse Ox 97 02/22/24 07:22 FiO2 Intake & Output 02/21/24 02/22/24 02/22/24 18:59 06:59 18:59 Intake Total 768.692 500 Output Total 4500 Balance 768.692 -4000 Intake: IV 600 Intake, IV Titration 168.692 Amount Heparin Sod,Pork in 0.45% 168.692 NaCl 25,000 unit In 0.45 % NaCl 1 250ml.bag @ 10. 02 UNITS/KG/HR 9.999 mls/ hr IV .Q24H [facility] Rx#: [id number] Hemodialysis 500 Output: Hemodialysis 2500 Hemodialysis Net Amount 2000 Other: Voiding Method Urinal # Voids 1 - Labs CBC & Chem 7: 02/18/24 03:54 02/22/24 05:25 Labs: Abnormal Lab Results - Last 24 Hours (Table) 02/21/24 02/21/24 02/21/24 Range/Units 07:06 11:53 17:40 Carbon Dioxide 20.8 L (21.6-31.8) mmol/L Anion Gap 18.20 H (4.00-12.00) mmol/L BUN 39.2 H (9.0-27.0) mg/dL Creatinine 4.7 H (0.6-1.5) mg/dL Est GFR (CKD-EPI) 12 L (>=60) BUN/Creatinine Ratio 8.34 L (12.00-20.00) Ratio Glucose 234 H (70-110) mg/dL POC Glucose (mg/dL) 231 H 194 H (70-110) mg/dL Calcium 8.4 L (8.7-10.3) mg/dL 07/23/24 07/24/24 Range/Units 21:11 06:01 Carbon Dioxide (21.6-31.8) mmol/L Anion Gap (4.00-12.00) mmol/L BUN (9.0-27.0) mg/dL Creatinine (0.6-1.5) mg/dL Est GFR (CKD-EPI) (>=60) BUN/Creatinine Ratio (12.00-20.00) Ratio Glucose (70-110) mg/dL POC Glucose (mg/dL) 135 H 235 H (70-110) mg/dL Calcium (8.7-10.3) mg/dL
--- NOTE | 2024-02-22 10:40 | CA ---
Transthoracic Echo Report Name: Phan Luciano Age: 73 Gender: M : 1950 Exam Date: 02/17/2024 10:58 Exam Location: [facility] Ht (in): 68 Wt (lb): 220 Ordering Physician: Loco Fung MD Attending/Referring Phys: Dynamite Reclaimer Raina Hitchcock RDCS Procedure CPT: Indications: cardiac structural assessment Cardiac Hx: Technical Quality: Contrast 1: Total Dose (mL): Contrast 2: Total Dose (mL): MEASUREMENTS (Male / Female) Normal Values 2D ECHO LV Diastolic Diameter PLAX 5.6 cm 4.2 - 5.9 / 3.9 - 5.3 cm LV Systolic Diameter PLAX 3.8 cm IVS Diastolic Thickness 1.3 cm 0.6 - 1.0 / 0.6 - 0.9 cm LVPW Diastolic Thickness 1.5 cm 0.6 - 1.0 / 0.6 - 0.9 cm LV Relative Wall Thickness 0.5 RV Internal Dim ED PLAX 3.4 cm LVOT Diameter 2.0 cm LA Volume 124.3 cm??? 18 - 58 / 22 - 52 cm??? LA Volume Index 55.9 cm???/m??? 16 - 28 cm???/m??? M-MODE Aortic Root Diameter MM 3.3 cm LA Systolic Diameter MM 4.8 cm LA Ao Ratio MM 1.4 AV Cusp Separation MM 1.3 cm DOPPLER AV Peak Velocity 305.1 cm/s AV Peak Gradient 37.2 mmHg AV Mean Velocity 220.9 cm/s AV Mean Gradient 21.4 mmHg AV Velocity Time Integral 80.9 cm LVOT Peak Velocity 106.1 cm/s LVOT Peak Gradient 4.5 mmHg LVOT Velocity Time Integral 29.1 cm LVOT Stroke Volume 91.2 cm??? LVOT Stroke Volume Index 42.9 ml/m??? AV Area Cont Eq vti 1.1 cm??? AV Area Cont Eq pk 1.1 cm??? MV Peak Velocity 159.1 cm/s MV Peak Gradient 10.1 mmHg MV Mean Velocity 88.1 cm/s MV Mean Gradient 3.6 mmHg MV Velocity Time Integral 52.3 cm MV Area PHT 4.5 cm??? Mitral E Point Velocity 132.6 cm/s Mitral A Point Velocity 114.5 cm/s Mitral E to A Ratio 1.2 MV Deceleration Time 168.5 ms MV E' Velocity 4.1 cm/s Mitral E to MV E' Ratio 32.7 TR Peak Velocity 291.2 cm/s TR Peak Gradient 33.9 mmHg Right Ventricular Systolic Press 38.9 mmHg FINDINGS Left Ventricle Mildly increased left ventricular wall thickness. Left ventricular cavity size normal. No obvious regional wall motion abnormalities. Abnormal (paradoxical) septal motion consistent with postoperative state. Left ventricular ejection fraction is estimated at 50-55 %. Grade 2 diastolic dysfunction. Right Ventricle Normal right ventricular size. Mild pulmonary hypertension. Right Atrium Normal right atrial size. Left Atrium Severely increased left atrial volume. Mildly increased left atrial area. Mitral Valve Mitral valve thickened. Moderate mitral annular calcification. Moderate mitral regurgitation. Aortic Valve Trileaflet aortic valve. Kjju-fl-pzzioutm aortic stenosis with a peak gradient of 37 mmHg and a mean gradient of 21 mmHg. No aortic regurgitation. Tricuspid Valve Structurally normal tricuspid valve. Mild tricuspid regurgitation. Pulmonic Valve Structurally normal pulmonic valve. Trace pulmonic regurgitation. Pericardium No pericardial effusion. Epicardial fat. Aorta Normal size aortic root and proximal ascending aorta. CONCLUSIONS Normal LV size and preserved systolic function with atypical septal motion. Mitral annular calcification with thickening and restriction of posterior mitral leaflet. There is moderate mitral regurgitation noted. Aortic valve stenosis of a moderate degree. No significant pulmonary hypertension no pericardial effusion Previewed by: Dr. Diego Roca MD (Electronically Signed) Final Date: 17 February 2024 13:36
[2024-02-22 11:55] LABS: Glucose,Whole Blood 254 mg/dL (70-110)
--- NOTE | 2024-02-22 12:20 | P.PN ---
Subjective patient is seen for follow-up for end-stage renal disease. status post cardiac catheterization on 02/21/2024, status post PCI of RCA and stent placement. no significant complaints today. Hemodialysis in a.m. Objective - Vital Signs Vital signs: Vital Signs Temp 98.4 F 02/22/24 07:22 Pulse 62 02/22/24 07:22 Resp 18 02/22/24 07:22 BP 111/46 02/22/24 07:22 Pulse Ox 96 02/22/24 09:30 FiO2 Intake & Output 02/21/24 02/22/24 02/22/24 18:59 06:59 18:59 Intake Total 768.692 500 240 Output Total 4500 Balance 768.692 -4000 240 Intake: IV 600 Intake, IV Titration 168.692 Amount Heparin Sod,Pork in 0.45% 168.692 NaCl 25,000 unit In 0.45 % NaCl 1 250ml.bag @ 10. 02 UNITS/KG/HR 9.999 mls/ hr IV .Q24H [facility] Rx#: [id number] Oral 240 Hemodialysis 500 Output: Hemodialysis 2500 Hemodialysis Net Amount 2000 Other: Voiding Method Urinal Toilet # Voids 1 - Exam patient is awake, comfortable, no acute distress. Examination of lower extremity shows Trace edema bilaterally [employer] exam is grossly intact - Labs CBC & Chem 7: 02/18/24 03:54 02/22/24 05:25 Labs: Abnormal Lab Results - Last 24 Hours (Table) 02/21/24 02/21/24 02/21/24 Range/Units 07:06 17:40 21:11 Sodium (135-145) mmol/L Chloride (96-109) mmol/L Carbon Dioxide 20.8 L (21.6-31.8) mmol/L Anion Gap 18.20 H (4.00-12.00) mmol/L BUN 39.2 H (9.0-27.0) mg/dL Creatinine 4.7 H (0.6-1.5) mg/dL Est GFR (CKD-EPI) 12 L (>=60) BUN/Creatinine Ratio 8.34 L (12.00-20.00) Ratio Glucose 234 H (70-110) mg/dL POC Glucose (mg/dL) 194 H 135 H (70-110) mg/dL Calcium 8.4 L (8.7-10.3) mg/dL 02/22/24 02/22/24 02/22/24 Range/Units 05:25 06:01 11:53 Sodium 134 L (135-145) mmol/L Chloride 95 L (96-109) mmol/L Carbon Dioxide (21.6-31.8) mmol/L Anion Gap 12.50 H (4.00-12.00) mmol/L BUN (9.0-27.0) mg/dL Creatinine 3.7 H (0.6-1.5) mg/dL Est GFR (CKD-EPI) 16 L (>=60) BUN/Creatinine Ratio 6.65 L (12.00-20.00) Ratio Glucose 236 H (70-110) mg/dL POC Glucose (mg/dL) 235 H 254 H (70-110) mg/dL Calcium 8.5 L (8.7-10.3) mg/dL Assessment and Plan Assessment: 1. End-stage renal disease maintained on hemodialysis on Tuesday schedule. 2. Coronary disease status post cardiac stents and CABG. 3. Chest pain. cardiology following.status post cardiac catheterization and coronary stent placement 4. Diabetes mellitus. 5. Anemia of chronic kidney disease. Plan: Hemodialysis in a.m. this can be done as outpatient if patient is discharged today.
[2024-02-22 12:23] VITALS: BMI 33.4
--- NOTE | 2024-02-22 13:57 | CDI ---
Documentation Clarification Form Date: 02/22/2024 From: Renee Valdez Phone: [phone] Admit Date: 02/17/2024 05:10:00 PM Patient Name: Phan Luciano Visit Number: [id number] Discharge Date: ATTENTION: The Clinical Documentation Specialists (CDI) and [facility] Coding Staff appreciate your assistance in clarifying documentation. Please respond to the clarification below the line at the bottom and electronically sign. The CDI & [facility] Coding staff will review the response and follow-up if needed. Please note: Queries are made part of the Legal Health Record. If you have any questions, please contact the author of this message via ITS. Doctor/Provider: Harpal Richardson MD: Conflicting documentation has been found in the medical record. As attending physician, please provide clarification. 02/16 Cardiology consult, Assessment: "Elevated troponins, flat, secondary to poor renal clearance, no evidence of myocardial injury or ischemia, no clinical significance" 02/17 IM PN, Assessment/Plan: "NSTEMI, likely type 1" History/Risk Factors: 73-year-old male with a history of DM2, CAD, chest pain, ID, renal disease, sp CABG, ESRD, COPD who presents with chest pain and SOB Clinical Indicators: 02/15 Triage VS: 135/62, 97.1, 67, 18, 100% room air 02/20 Left heart catheterization, PCI to proximal to mid RCA with DEBBIE, shockwave lithotripsy of RCA, Indication: "Unstable angina with history of two-vessel CABG TIAN to LAD and SVG to ramus." 02/15 Troponin: 0.030, 0.038, 0.044 Treatment: Monitor troponins PCI to RCA Heparin titrated drip 02/15-02/20 Heparin 3000units once 02/20 Lipitor 80mg oral PO at HS start 02/16 Aspirin 81mg PO daily start 02/16 Aspirin 325mg PO once 02/19 Imdur 60mg PO daily start 02/16 Metoprolol Tartrate 25mg PO BID start 02/16 Plavix 600mg PO once 02/20, then 75mg PO on 02/21 then dc'd Please clarify which diagnosis is most appropriate: [ ] NSTEMI type 1 [ x ] Unstable angina [ ] Elevated troponins clinically insignificant [ ] Other (please specify) [ ] Unable to determine MTDD
--- NOTE | 2024-02-22 14:17 | P.DS ---
Providers Date of admission: 02/17/24 17:10 Discharge Diagnosis: NSTEMI likely type I Type 2 diabetes End-stage renal disease on hemodialysis Elevated bicarbonate, likely due to chronic hypercapnia secondary to COPD Mild hyponatremia GERD BPH Anxiety Restless leg syndrome Hospital Course: Patient is a 73-year-old male with past medical history coronary disease status post stents in 2004, 2013 and CABG on 10/17/2023, ESRD on hemodialysis (TThSa), chronic diastolic heart failure with ejection fraction of 50 to 55%, type 2 diabetes on insulin pump, COPD and hypertension presented to ER with gradually worsening substernal chest pain. Patient endorsed 7 out of 10, constant, nonradiating, substernal chest pain which woke him up from his nap this afternoon at his home. He also endorsed mild shortness of breath and felt cold and clammy. Patient reports his chest pain subsided after he was given nitroglycerin by first responders intransit. Patient reports that he has been experiencing exertional chest pain since 2 weeks exacerbated with physical activity such as walking and working in garage and alleviated with rest. Patient is currently going for cardiac rehab s/p CABG on 10/17/2023. Patient denies nausea, vomiting, and peripheral edema. Patient denies any numbness or weakness in upper or lower extremities. No recent hospitalization or recent travel. Denies use of any illicit drug. At the time of interview, patient reports no chest pain and no SOB. Chest x-ray in the ER shows by basilar infiltrates suspicious for atelectasis or pneumonia. EKG in the ER shows sinus rhythm with a heart rate of 69 bpm. First-degree AV block with SD interval 277 ms. Widened QRS complex of 162 ms due to right bundle branch block. Findings of LVH. Vitals: Tmax 97.6 F, heart rate 61, respiratory rate 18, blood pressure 134/76, oxygen saturation 99% on room air. Patient to be admitted for workup for chest pain. While admitted, patient was walking down the hallway and had an episode of chest pain. Patient was held for left heart catheterization. Patient underwent left heart catheterization with PCI to mid RCA. He is in stable condition. During his stay he was able to continue his dialysis schedule here. He will follow-up with acid treater and his PCP. He is being discharged with risk stratification medications. He is being discharged home. 02/22/2024: Patient seen and examined at bedside. Says he feels better but is tired. No acute events overnight. Vital signs reviewed and stable. Physical Exam: General: non toxic, no distress, appears at stated age, obese Derm: no unusual rashes/lesions, warm Head: atraumatic, normocephalic, symmetric Eyes: EOMI, no lid lag, anicteric sclera, pupils equal round reactive to light ENT: Nose and ears atraumatic Neck: No cervical lymphadenopathy, trachea midline, supple Mouth: no lip lesion, mucus membranes moist Cardiovascular: S1S2 reg, grade 3 systolic murmur, positive dorsalis pedis pulse bilateral, bilateral grade 1 pitting edema Lungs: CTA bilateral, no rhonchi, no rales, no accessory muscle use Abdominal: soft, nontender to palpation, no guarding Ext: muscle strength 5 out of 5 in all 4 extremities grossly, no gross muscle atrophy, no contractures, Neuro: CN II-XI grossly intact, no gross focal neuro deficits Psych: Alert, oriented, appropriate affect A total of [] minutes of time were spent preparing this complex discharge summary. Patient was discharge on [] Expected date of discharge: 02/22/24 Attending physician: Damien Fung MD Consults: 02/16/24 18:14 Consult Physician Urgent Consulting Provider: Jaylyn Nelson Consult Reason/Comments: Chest pain Do you want consulting provider notified?: Yes 02/17/24 00:24 Consult Physician Urgent Consulting Provider: Sibma Posey Consult Reason/Comments: Resume HD Do you want consulting provider notified?: Yes 02/21/24 14:59 Consult Physician Routine Consulting Provider: Jaylyn Nelson Consult Reason/Comments: Post Interventional Patient Do you want consulting provider notified?: Already Contacted Primary care physician: Marlon [facility] Course: I have seen and evaluated the patient today. Discussed with the resident and agree with the residents subjective and objective as documented in the resident's note. The assessment and plan was discussed and outlined as below. Patient reports improved breathing and no more chest pain. Cardiology has cleared the patient for discharge. Cardiology recommends discharge home on ASA, Crestor, Plavix, Zetia, Imdur, Lopressor, Demadex. Follow up with PCP within 1-2 days and Cardiology within 1 week of discharge. This complex discharge took 35 minutes to complete. Patient Condition at Discharge: Stable Plan - Discharge Summary Discharge Rx Participant: No New Discharge Prescriptions: New Metoprolol Tartrate [Lopressor] 25 mg PO BID #180 tab Isosorbide Mononitrate ER [Imdur] 60 mg PO DAILY #30 tab Rosuvastatin [Crestor] 20 mg PO HS #90 tablet Nitroglycerin Sl Tabs [Nitrostat] 0.4 mg SUBLINGUAL Q5M PRN #25 tab PRN Reason: Chest Pain Continue Ezetimibe [Zetia] 10 mg PO DAILY Ferrous Sulfate [Iron (65 MG Elemental)] 325 mg PO DAILY Insulin Aspart (For Pump) [NovoLOG (For Pump)] 0.01 unit SQ-PUMP CONTINUOUS Pramipexole [Mirapex] 0.5 mg PO BID PRN PRN Reason: Restless legs Albuterol Inhaler [Ventolin Hfa Inhaler] 2 puff INHALATION RT-Q4H PRN PRN Reason: Shortness Of Breath Glucagon Emergency Kit 1 mg IM ONCE PRN PRN Reason: Hypoglycemia Escitalopram [Lexapro] 10 mg PO DAILY Cetirizine HCl [Zyrtec] 10 mg PO DAILY Acetaminophen Tab [Tylenol] 1,000 mg PO Q6HR PRN tab PRN Reason: Fever And/ Or Pain HYDROcodone/APAP 5-325MG [[place] 5-325] 1 tab PO Q4-6H PRN PRN Reason: Severe Breakthrough Pain Aspirin EC [Ecotrin Low Dose] 81 mg PO DAILY Tamsulosin [Flomax] 0.4 mg PO HS ALPRAZolam [Xanax] 0.5 mg PO HS PRN PRN Reason: Severe Anxiety Cholecalciferol [Vitamin D3 (25 Mcg = 1000 Iu)] 50 mcg PO DAILY Folic Acid/Vit B Complex and C [Nephro-Pooja Tablet] 0.8 mg PO DAILY Torsemide [Demadex] 40 mg PO SUMOWEFR Clopidogrel [Plavix] 75 mg PO DAILY #30 tab Pantoprazole [Protonix] 40 mg PO AC-BRKFST #30 tab Discontinued Rosuvastatin [Crestor] 10 mg PO HS Metoprolol Tartrate [Lopressor] 25 mg PO DAILY Metoprolol Tartrate [Lopressor] 12.5 mg PO HS Calcium Acetate [Phoslo] 667 mg PO TID-W/MEALS Isosorbide Mononitrate ER [Imdur] 30 mg PO DAILY Discharge Medication List Ezetimibe [Zetia] 10 mg PO DAILY 05/19/16 [History] Ferrous Sulfate [Iron (65 MG Elemental)] 325 mg PO DAILY 05/19/16 [History] Insulin Aspart (For Pump) [NovoLOG (For Pump)] 0.01 unit SQ-PUMP CONTINUOUS 05/28/18 [History] Pramipexole [Mirapex] 0.5 mg PO BID PRN 05/02/19 [History] Albuterol Inhaler [Ventolin Hfa Inhaler] 2 puff INHALATION RT-Q4H PRN 08/10/21 [History] Aspirin EC [Ecotrin Low Dose] 81 mg PO DAILY 02/21/22 [History] Glucagon Emergency Kit 1 mg IM ONCE PRN 02/21/22 [History] Escitalopram [Lexapro] 10 mg PO DAILY 01/01/23 [History] ALPRAZolam [Xanax] 0.5 mg PO HS PRN 06/17/23 [History] Cholecalciferol [Vitamin D3 (25 Mcg = 1000 Iu)] 50 mcg PO DAILY 06/17/23 [History] Tamsulosin [Flomax] 0.4 mg PO HS 06/17/23 [History] Cetirizine HCl [Zyrtec] 10 mg PO DAILY 09/22/23 [History] Folic Acid/Vit B Complex and C [Nephro-Pooja Tablet] 0.8 mg PO DAILY 09/22/23 [History] Torsemide [Demadex] 40 mg PO SUMOWEFR 09/22/23 [History] Acetaminophen Tab [Tylenol] 1,000 mg PO Q6HR PRN tab 10/24/23 [Rx] Clopidogrel [Plavix] 75 mg PO DAILY #30 tab 10/24/23 [Rx] Pantoprazole [Protonix] 40 mg PO AC-BRKFST #30 tab 10/24/23 [Rx] HYDROcodone/APAP 5-325MG [[place] 5-325] 1 tab PO Q4-6H PRN 02/16/24 [History] Isosorbide Mononitrate ER [Imdur] 60 mg PO DAILY #30 tab 02/22/24 [Rx] Metoprolol Tartrate [Lopressor] 25 mg PO BID #180 tab 02/22/24 [Rx] Nitroglycerin Sl Tabs [Nitrostat] 0.4 mg SUBLINGUAL Q5M PRN #25 tab 02/22/24 [Rx] Rosuvastatin [Crestor] 20 mg PO HS #90 tablet 02/22/24 [Rx] Follow up Appointment(s)/Referral(s): Shiraz Castle DO [STAFF PHYSICIAN] - 02/28/24 12:15 pm Marlon Valentino DO [Primary Care Provider] - 1-2 days Patient Instructions/Handouts: Heart Catheterization (DC) Discharge Disposition: HOME SELF-CARE
== END 2024-02-22 13:39 | disposition home or self-care (01) | DRG 321 ==
LOC: EC 16:40 → 6NMEDSUR 18:15 → OBSVTOIN 02-17 17:10 → 6NMEDSUR 02-17 21:53
PROVIDERS: ADMIT Student in an Organized Health Care Education/Training Program; ATTEND Student in an Organized Health Care Education/Training Program
PROC: 5A1D70Z Performance of Urinary Filtration, Intermittent, Less than 6 Hours Per Day (ICD-10-PCS; 2024-02-18)
PROC: 027034Z Dilation of Coronary Artery, One Artery with Drug-eluting Intraluminal Device, Percutaneous Approach (ICD-10-PCS; principal; 2024-02-21 12:00)
PROC: B2121ZZ Fluoroscopy of Single Coronary Artery Bypass Graft using Low Osmolar Contrast (ICD-10-PCS; principal; 2024-02-21 12:00)
PROC: B2111ZZ Fluoroscopy of Multiple Coronary Arteries using Low Osmolar Contrast (ICD-10-PCS; principal; 2024-02-21 12:00)
PROC: 4A023N7 Measurement of Cardiac Sampling and Pressure, Left Heart, Percutaneous Approach (ICD-10-PCS; principal; 2024-02-21 12:00)
PROC: B241ZZ3 Ultrasonography of Multiple Coronary Arteries, Intravascular (ICD-10-PCS; principal; 2024-02-21 12:00)
PROC: 4A033BC Measurement of Arterial Pressure, Coronary, Percutaneous Approach (ICD-10-PCS; principal; 2024-02-21 12:00)
DX: I25.709 Atherosclerosis of coronary artery bypass graft(s), unspecified, with unspecified angina pectoris (principal); N18.6 End stage renal disease; E87.1 Hypo-osmolality and hyponatremia; I13.2 Hypertensive heart and chronic kidney disease with heart failure and with stage 5 chronic kidney disease, or end stage renal disease; I50.32 Chronic diastolic (congestive) heart failure; J98.11 Atelectasis; I25.10 Atherosclerotic heart disease of native coronary artery without angina pectoris; Z95.1 Presence of aortocoronary bypass graft; Z95.5 Presence of coronary angioplasty implant and graft; D63.1 Anemia in chronic kidney disease; E11.22 Type 2 diabetes mellitus with diabetic chronic kidney disease; E78.5 Hyperlipidemia, unspecified; F41.9 Anxiety disorder, unspecified; M19.90 Unspecified osteoarthritis, unspecified site; R06.89 Other abnormalities of breathing; G47.30 Sleep apnea, unspecified; G25.81 Restless legs syndrome; Z99.2 Dependence on renal dialysis; J44.9 Chronic obstructive pulmonary disease, unspecified; I45.10 Unspecified right bundle-branch block; H91.90 Unspecified hearing loss, unspecified ear; I08.0 Rheumatic disorders of both mitral and aortic valves; I25.2 Old myocardial infarction; I44.0 Atrioventricular block, first degree; K21.9 Gastro-esophageal reflux disease without esophagitis; N40.0 Benign prostatic hyperplasia without lower urinary tract symptoms; Z79.02 Long term (current) use of antithrombotics/antiplatelets; Z79.4 Long term (current) use of insulin; Z79.82 Long term (current) use of aspirin; Z79.899 Other long term (current) drug therapy; Z87.891 Personal history of nicotine dependence; Z96.41 Presence of insulin pump (external) (internal)
CPT/HCPCS: 36415; 71046; 80048; 80053; 80061; 82728; 83036; 83540; 83550; 83735; 84100; 84484; 85025; 85610; 85730; 90935; 92972; 92978; 93005; 93306; 93459; 93799; 94760; 96365; 96366; 99285

== ENCOUNTER 2024-02-26 20:10 | Inpatient (IN) | payer MEDICARE ==
--- NOTE | 2024-02-26 20:49 | ED ---
Chest Pain HPI - General Chief Complaint: Chest Pain Stated Complaint: Chest Pain Time Seen by Provider: 02/26/24 20:21 Source: patient, family, EMS, RN notes reviewed, old records reviewed Mode of arrival: EMS Limitations: no limitations - History of Present Illness Initial Comments: 73-year-old male with a history of heart disease who did have a stent placement on the of this month also had bypass surgery earlier this spring who presents with complaints of the onset of chest pain that started this evening he had 2 episodes sharp almost heartburn he he states in nature first episode lasted about 10 minutes 6-7/10 in severity he had a second episode later on there was as severe now down to about 2/10 he was brought in by EMS. Concerned because this is why he presented before his bypass. No fevers chills sweats no trauma no other complaints at this time he is feeling improved however. No nausea or vomiting at this time. The patient does state the pain was midsternal nonradiating. MD Complaint: chest pain - Related Data Home Medications Medication Instructions Recorded Confirmed Ezetimibe [Zetia] 10 mg PO DAILY 05/19/16 02/27/24 Ferrous Sulfate [Iron (65 MG 325 mg PO DAILY 05/19/16 02/27/24 Elemental)] Insulin Aspart (For Pump) [NovoLOG 0.01 unit SQ-PUMP CONTINUOUS 05/28/18 02/27/24 (For Pump)] Pramipexole [Mirapex] 0.5 mg PO BID PRN 05/02/19 02/27/24 Albuterol Inhaler [Ventolin Hfa 2 puff INHALATION RT-Q4H PRN 08/10/21 02/27/24 Inhaler] Aspirin EC [Ecotrin Low Dose] 81 mg PO DAILY 02/21/22 02/27/24 Glucagon Emergency Kit 1 mg IM ONCE PRN 02/21/22 02/27/24 Escitalopram [Lexapro] 10 mg PO DAILY 01/01/23 02/27/24 ALPRAZolam [Xanax] 0.5 mg PO HS PRN 06/17/23 02/27/24 Cholecalciferol [Vitamin D3 (25 50 mcg PO DAILY 06/17/23 02/27/24 Mcg = 1000 Iu)] Tamsulosin [Flomax] 0.4 mg PO HS 06/17/23 02/27/24 Cetirizine HCl [Zyrtec] 10 mg PO DAILY 09/22/23 02/27/24 Folic Acid/Vit B Complex and C 0.8 mg PO DAILY 09/22/23 02/27/24 [Nephro-Pooja Tablet] Torsemide [Demadex] 40 mg PO SUMOWEFR 09/22/23 02/27/24 HYDROcodone/APAP 5-325MG [[place] 1 tab PO Q4-6H PRN 02/16/24 02/27/24 5-325] Previous Rx's Medication Instructions Recorded Acetaminophen Tab [Tylenol] 1,000 mg PO Q6HR PRN tab 10/24/23 Clopidogrel [Plavix] 75 mg PO DAILY #30 tab 10/24/23 Pantoprazole [Protonix] 40 mg PO AC-BRKFST #30 tab 10/24/23 Isosorbide Mononitrate ER [Imdur] 60 mg PO DAILY #30 tab 02/22/24 Metoprolol Tartrate [Lopressor] 25 mg PO BID #180 tab 02/22/24 Nitroglycerin Sl Tabs [Nitrostat] 0.4 mg SUBLINGUAL Q5M PRN #25 tab 02/22/24 Rosuvastatin [Crestor] 20 mg PO HS #90 tablet 02/22/24 Allergies Allergy/AdvReac Type Severity Reaction Status Date / Time zolpidem [From Ambien] Allergy Hallucinati Verified 02/27/24 08:25 ons atorvastatin [From Lipitor] AdvReac jt and Verified 02/27/24 08:25 muscle pain baclofen AdvReac caused a Verified 02/27/24 08:25 fall Review of Systems ROS Statement: Those systems with pertinent positive or pertinent negative responses have been documented in the HPI. ROS Other: All systems not noted in ROS Statement are negative. EKG Findings - EKG Results: EKG: interpreted by ERMD, sinus rhythm (Sinus rhythm first-degree AV block rate 71 NH interval 269, QRS duration 162 QT/QTc 466/489 right bundle branch block left anterior fascicular block evidence of LVH this is compared with EKG dated 02/16/2024 showing similar configuration this also correlates with the 1 submitted by EMS today.) Past Medical History Past Medical History: Blood Disorder, Coronary Artery Disease (CAD), Chest Pain / Angina, Heart Failure, COPD, Diabetes Mellitus, Dialysis, Hearing Disorder / Deafness, Hyperlipidemia, Hypertension, Myocardial Infarction (LA), Osteoarthritis (OA), Renal Disease, Sleep Apnea/CPAP/BIPAP Additional Past Medical History / Comment(s): has insulin pump and contiunuous blood glucose monitor,fell at home on Tuesday10-10-23"got dizzy"-no injury,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. Chronic renal failure, dialysis [facility] normally. Patient has insulin pump. Has CPAP, occasionally uses. Neuropathy in feet and hands. Poor hearing. Last Myocardial Infarction Date:: History of Any Multi-Drug Resistant Organisms: None Reported Past Surgical History: Cholecystectomy, Coronary Bypass/CABG, Heart Catheterization, Heart Catheterization With Stent, Orthopedic Surgery Additional Past Surgical History / Comment(s): Shoulder surgery-no hardware, hemorrhoidectomy, eye surgery,4 cardiac stents,AV fistula left forearm, double vessle CABG 10/17/23 Past Anesthesia/Blood Transfusion Reactions: No Reported Reaction Additional Past Anesthesia/Blood Transfusion Reaction / Comment(s): Never had a blood transfusion. Date of Last Stent Placement:: Past Psychological History: No Psychological Hx Reported Smoking Status: Former smoker Past Alcohol Use History: None Reported Past Drug Use History: None Reported - Past Family History Father Family Medical History: Cancer Additional Family Medical History / Comment(s): Bladder cancer. Mother Family Medical History: Cancer, Diabetes Mellitus Additional Family Medical History / Comment(s): Pancreatic cancer. General Exam - General Exam Comments Initial Comments: A well-developed well-nourished awake alert oriented x 4 male Limitations: no limitations General appearance: alert, in no apparent distress Head exam: Present: atraumatic, normocephalic, normal inspection Eye exam: Present: normal appearance, PERRL, EOMI. Absent: scleral icterus, conjunctival injection, periorbital swelling ENT exam: Present: normal exam, mucous membranes moist Neck exam: Present: normal inspection, full ROM, other (No JVD or bruits). Absent: tenderness, meningismus, lymphadenopathy Respiratory exam: Present: normal lung sounds bilaterally. Absent: respiratory distress, wheezes, rales, rhonchi, stridor, chest wall tenderness Cardiovascular Exam: Present: regular rate, normal rhythm, normal heart sounds. Absent: systolic murmur, diastolic murmur, rubs, gallop, clicks GI/Abdominal exam: Present: soft, normal bowel sounds. Absent: distended, tende rness, guarding, rebound, rigid Extremities exam: Present: normal inspection, full ROM, normal capillary refill. Absent: tenderness, pedal edema, joint swelling, calf tenderness Back exam: Present: normal inspection Neurological exam: Present: alert, oriented X3, CN II-XII intact Psychiatric exam: Present: normal affect, normal mood Skin exam: Present: warm, dry, intact, normal color. Absent: rash Course Vital Signs 02/26/24 02/26/24 02/26/24 20:12 20:23 21:15 Temperature 98.1 F Pulse Rate 71 67 64 Respiratory 16 18 18 Rate Blood Pressure 121/56 119/53 130/57 O2 Sat by Pulse 97 99 Oximetry 02/26/24 02/27/24 02/27/24 23:02 00:58 01:00 Temperature Pulse Rate 59 L 55 L 57 L Respiratory 18 15 14 Rate Blood Pressure 115/46 110/48 153/73 O2 Sat by Pulse 99 99 Oximetry 02/27/24 02/27/24 02/27/24 02:00 04:00 06:00 Temperature Pulse Rate 57 L 55 L 53 L Respiratory 15 12 16 Rate Blood Pressure 126/49 147/66 123/59 O2 Sat by Pulse 99 99 99 Oximetry 02/27/24 02/27/24 02/27/24 07:57 08:06 12:12 Temperature 97.6 F Pulse Rate 56 L 51 L Respiratory 16 18 Rate Blood Pressure 133/60 109/50 O2 Sat by Pulse 99 100 99 Oximetry 02/27/24 02/27/24 02/27/24 13:00 14:00 15:00 Temperature Pulse Rate 52 L 68 75 Respiratory 16 16 16 Rate Blood Pressure 131/85 110/60 112/60 O2 Sat by Pulse 98 98 98 Oximetry 02/27/24 16:00 Temperature Pulse Rate 62 Respiratory 16 Rate Blood Pressure 112/56 O2 Sat by Pulse 98 Oximetry Chest Pain MDM - [facility] Patient's care is endorsed to Dr. Martin at her shift change. Patient is being worked up for chest pain. Was pt. sent in by a medical professional or institution (, PA, CELL ASSEMBLY PINNER, urgent care, hospital, or assisted...) When possible be specific @ -No Did you speak to anyone other than the patient for history (EMS, parent, family, police, friend...)? What history was obtained from this source @ -EMS personnel as well as family members Did you review nursing and triage notes (agree or disagree)? Why? @ -I reviewed and agree with nursing and triage notes Were old charts reviewed (outside hosp., previous admission, EMS record, old EKG, old radiological studies, urgent care reports/EKG's, assisted records)? Report findings @ -Old charts were reviewed Differential Diagnosis (chest pain, altered mental status, abdominal pain women, abdominal pain men, vaginal bleeding, weakness, fever, dyspnea, syncope, headache, dizziness, GI bleed, back pain, seizure, CVA, palpatations, mental health, musculoskeletal)? @ -Not applicable EKG interpreted by me (3pts min.). @ -As above KG interpreted by me rate 71 NH interval 269 QRS duration 162 QT/QTc 466/489 right bundle branch block pattern first-degree AV block left anterior fascicular block evidence of LVH evidence of septal changes. This is consistent. With an EKG dated 02/16/2024 showing similar configuration this also correlates with the EMS EKG submitted today. X-rays interpreted by me (1pt min.). @ -No acute process CT interpreted by me (1pt min.). @ -None done U/S interpreted by me (1pt. min.). @ -None done What testing was considered but not performed or refused? (CT, X-rays, U/S, labs)? Why? @ -None What meds were considered but not given or refused? Why? @ -None Did you discuss the management of the patient with other professionals (professionals i.e. , PA, CELL ASSEMBLY PINNER, lab, RT, psych nurse, social insurance analyst, clinical biostatistics director, teacher, air support control officer, case technician)? Give summary @ -Trachy Was smoking cessation discussed for >3mins.? @ -No Was critical care preformed (if so, how long)? @ -No Were there social determinants of health that impacted care today? How? (Homelessness, low income, unemployed, alcoholism, drug addiction, transportation, low edu. Level, literacy, decrease access to med. care, long-term, rehab)? @ -No Was there de-escalation of care discussed even if they declined (Discuss DNR or withdrawal of care, Hospice)? DNR status @ -No What co-morbidities impacted this encounter? (DM, HTN, Smoking, COPD, CAD, Cancer, CVA, ARF, Chemo, Hep., AIDS, mental health diagnosis, sleep apnea, morbid obesity)? @ -Failure, cardiac disease recent stents Was patient admitted / discharged? Hospital course, mention meds given and route, prescriptions, significant lab abnormalities, going to OR and other pertinent info. @ -Hospital course the patient was ultimately admitted Undiagnosed new problem with uncertain prognosis? @ -No Drug Therapy requiring intensive monitoring for toxicity (Heparin, Nitro, Insulin, Cardizem)? @ -No Were any procedures done? @ -No Diagnosis/symptom? @ -Pain, chronic renal failure Acute, or Chronic, or Acute on Chronic? @ -Acute on chronic t Uncomplicated (without systemic symptoms) or Complicated (systemic symptoms)? @ -Default Side effects of treatment? @ -No Exacerbation, Progression, or Severe Exacerbation? @ -No Poses a threat to life or bodily function? How? (Chest pain, USA, LA, pneumonia, PE, COPD, DKA, ARF, appy, cholecystitis, CVA, Diverticulitis, Homicidal, Suicidal, threat to staff... and all critical care pts) @ -Potential Disposition Clinical Impression: Chest pain, Chronic renal failure Disposition: ADMITTED IP TO THIS HOSP Condition: Stable
[2024-02-26 21:05] LABS: Basophils % (A) 1 %; Eosinophils # (A) 0.1 k/uL (0-0.7); Eosinophils % (A) 3 %; HCT 28.1 % (39.0-53.0); HGB 9.5 gm/dL (13.0-17.5); Lymphocytes # (A) 1.1 k/uL (1.0-4.8); Lymphocytes % (A) 29 %; MCHC 33.9 g/dL (31.0-37.0); MCV 94.3 fL (80.0-100.0); Mean Platelet Volume 8.4; Monocytes # (A) 0.3 k/uL (0-1.0); Monocytes % (A) 9 %; Neutrophils # (A) 2.1 k/uL (1.3-7.7); Neutrophils % (A) 56 %; Platelet Count 149 k/uL (150-450); RBC 2.98 m/uL (4.30-5.90); RDW 15.5 % (11.5-15.5); WBC 3.8 k/uL (3.8-10.6)
[2024-02-26] MEDS: HEPARIN SOD,PORK IN 0.45% NACL 25,000 UNIT in 0.45% NACL 1 250ML.BAG IV SCH (21:15)
[2024-02-26] MEDS: HEPARIN SODIUM 1,000 UN/ML (10ML VL) IV ONE (21:15)
[2024-02-26] MEDS: NITROGLYCERIN OINT 1 INCH/GM PACKET TOPICAL STA (21:17)
[2024-02-26 21:20] LABS: ALT 21 U/L (4-49); AST 36 U/L (17-59); African American GFR (CKD) 16 (>60 ml/min/1.73 sqM); Albumin 3.8 g/dL (3.5-5.0); Alkaline Phosphatase 73 U/L (38-126); Anion Gap 10 mmol/L; Blood Urea Nitrogen 48 mg/dL (9-20); Calcium 8.5 mg/dL (8.4-10.2); Carbon Dioxide 27 mmol/L (22-30); Chloride 96 mmol/L (98-107); Glucose 281 mg/dL (74-99); Lipase 102 U/L (23-300); Magnesium 1.8 mg/dL (1.6-2.3); Non-African American GFR(CKD) 14 (>60 ml/min/1.73 sqM); Potassium 4.1 mmol/L (3.5-5.1); Sodium 133 mmol/L (137-145); Total Bilirubin 0.7 mg/dL (0.2-1.3); Total Protein 6.6 g/dL (6.3-8.2)
[2024-02-26 21:29] LABS: NT-Pro-B-Type Natriuretic Pept 17400 pg/mL; Partial Thromboplastin Time 26.7 sec (22.0-30.0); Prothrombin Time 11.2 sec (10.0-12.5)
--- NOTE | 2024-02-26 21:47 | XR ---
EXAMINATION TYPE: XR chest 2V DATE OF EXAM: 02/26/2024 9:14 PM CLINICAL INDICATION:Male, 73 years old with history of Chest Pain; H COMPARISON: Chest radiographs from no 02/16/2024 TECHNIQUE: XR chest 2V Frontal and lateral views of the chest. FINDINGS: Lungs/Pleura: Previous bibasilar infiltrates appear improved on the current study. Sternotomy wires are seen. EKG wires overlie the chest. Pulmonary vascularity: Unremarkable. Heart/mediastinum: Cardiomediastinal silhouette is unremarkable. Musculoskeletal: No acute osseous pathology. Other findings: None Lines/Tubes: IMPRESSION: Improved bibasilar infiltrates the prior study of February 16, 2020
[2024-02-27] MEDS ORDERED: ALBUTEROL NEBULIZED 2.5 MG/3 ML INHALATION PRN (00:16)
[2024-02-27] MEDS: TORSEMIDE 20 MG TAB PO SCH (00:55)
[2024-02-27] MEDS: PRAMIPEXOLE 0.5 MG TAB PO PRN (03:33)
--- NOTE | 2024-02-27 03:54 | P.HPIM ---
History of Present Illness H&P Date: 02/27/24 Patient is a 73-year-old male with a PMH of CAD status post CABG in 2023 multiple stents, ESRD on hemodialysis ([facility]), chronic diastolic CHF, type II DM, COPD, hypertension who presents to the emergency room with complaints of chest discomfort. The patient was recently admitted to the hospital for similar complaints on 02/15, during which time he underwent a PCI to mid RCA and was subsequently discharged home on 02/21. Patient notes however that soon after discharge, that he again started having exertional substernal chest tightness with shortness of breath, nausea, and some dizziness. Reports that the episodes worsened today which prompted him to come back to the emergency room. Reports being chest pain-free at the time of interview. Denies experiencing fever, chills, cough. Chest x-ray in the emergency room was unremarkable. EKG revealed bifascicular block at 71 bpm as reviewed by me, unchanged from prior EKG. Laboratory evaluation revealed hemoglobin 9.5 (at baseline), platelet count 149 (similar to baseline) sodium 133, BUN 48, creatinine 4.02, glucose 281 with troponin 0.021 with proBNP 17,400. ED documentation reviewed and case discussed with ED provider. Review of systems: Pertinent positives and negatives as discussed in HPI, a complete review of systems was performed and all other systems are negative. Physical examination: Vital signs reviewed General: non toxic, no distress, appears at stated age, obese Derm: no unusual rashes/lesions, warm Head: atraumatic, normocephalic, symmetric Eyes: EOMI, no lid lag, anicteric sclera, pupils equal round reactive to light ENT: Nose and ears atraumatic Neck: No cervical lymphadenopathy, trachea midline, supple Mouth: no lip lesion, mucus membranes moist Cardiovascular: S1S2 reg, grade 3 systolic murmur appreciated, positive dorsalis pedis pulse bilateral, trace bilateral lower extremity pitting edema Lungs: CTA bilateral, no rhonchi, no rales, no accessory muscle use Abdominal: soft, nontender to palpation, no guarding Ext: muscle strength 5 out of 5 in all 4 extremities grossly, no gross muscle atrophy, no contractures, Neuro: CN II-XI grossly intact, no gross focal neuro deficits Psych: Alert, oriented, appropriate affect Assessment: Unstable angina Hyponatremia, at baseline Chronic conditions: Type II DM, ESRD on HD Imaging: Chest x-ray in the emergency room was unremarkable. Data Review: Laboratory evaluation revealed hemoglobin 9.5 (at baseline), platelet count 149 (similar to baseline) sodium 133, BUN 48, creatinine 4.02, glucose 281 with troponin 0.021 with proBNP 17,400. Plan: Continue with heparin infusion Continue aspirin and statin Hold Plavix at this time Continue patient's home Lopressor dose Nitrobid ordered Cardiology consulted Cardiac monitoring Trend troponin Nephrology consulted for resumption of hemodialysis Insulin sliding scale blood glucose monitoring. Discontinue patient's home insulin pump. DVT prophylaxis: Heparin infusion The patient is admitted with an anticipated greater than 2 midnight stay for evaluation of unstable angina CODE STATUS: Full Code Discussed with: Patient Anticipated discharge place: Home Past Medical History Past Medical History: Blood Disorder, Coronary Artery Disease (CAD), Chest Pain / Angina, Heart Failure, COPD, Diabetes Mellitus, Dialysis, Hearing Disorder / Deafness, Hyperlipidemia, Hypertension, Myocardial Infarction (LA), Osteoarthritis (OA), Renal Disease, Sleep Apnea/CPAP/BIPAP Additional Past Medical History / Comment(s): has insulin pump and contiunuous blood glucose monitor,fell at home on Tuesday10-10-23"got dizzy"-no injury,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. Chronic renal failure, dialysis [facility] normally. Patient has insulin pump. Has CPAP, occasionally uses. Neuropathy in feet and hands. Poor hearing. Last Myocardial Infarction Date:: History of Any Multi-Drug Resistant Organisms: None Reported Past Surgical History: Cholecystectomy, Coronary Bypass/CABG, Heart Catheterization, Heart Catheterization With Stent, Orthopedic Surgery Additional Past Surgical History / Comment(s): Shoulder surgery-no hardware, hemorrhoidectomy, eye surgery,4 cardiac stents,AV fistula left forearm, double vessle CABG 10/17/23 Past Anesthesia/Blood Transfusion Reactions: No Reported Reaction Additional Past Anesthesia/Blood Transfusion Reaction / Comment(s): Never had a blood transfusion. Date of Last Stent Placement:: Past Psychological History: No Psychological Hx Reported Smoking Status: Former smoker Past Alcohol Use History: None Reported Past Drug Use History: None Reported - Past Family History Father Family Medical History: Cancer Additional Family Medical History / Comment(s): Bladder cancer. Mother Family Medical History: Cancer, Diabetes Mellitus Additional Family Medical History / Comment(s): Pancreatic cancer. Medications and Allergies Home Medications Medication Instructions Recorded Confirmed Type Ezetimibe [Zetia] 10 mg PO DAILY 05/19/16 02/16/24 History Ferrous Sulfate [Iron (65 MG 325 mg PO DAILY 05/19/16 02/16/24 History Elemental)] Insulin Aspart (For Pump) [NovoLOG 0.01 unit SQ-PUMP CONTINUOUS 05/28/18 02/16/24 History (For Pump)] Pramipexole [Mirapex] 0.5 mg PO BID PRN 05/02/19 02/16/24 History Albuterol Inhaler [Ventolin Hfa 2 puff INHALATION RT-Q4H PRN 08/10/21 02/16/24 History Inhaler] Aspirin EC [Ecotrin Low Dose] 81 mg PO DAILY 02/21/22 02/16/24 History Glucagon Emergency Kit 1 mg IM ONCE PRN 02/21/22 02/16/24 History Escitalopram [Lexapro] 10 mg PO DAILY 01/01/23 02/16/24 History ALPRAZolam [Xanax] 0.5 mg PO HS PRN 06/17/23 02/16/24 History Cholecalciferol [Vitamin D3 (25 50 mcg PO DAILY 06/17/23 02/16/24 History Mcg = 1000 Iu)] Tamsulosin [Flomax] 0.4 mg PO HS 06/17/23 02/16/24 History Cetirizine HCl [Zyrtec] 10 mg PO DAILY 09/22/23 02/16/24 History Folic Acid/Vit B Complex and C 0.8 mg PO DAILY 09/22/23 02/16/24 History [Nephro-Pooja Tablet] Torsemide [Demadex] 40 mg PO SUMOWEFR 09/22/23 02/16/24 History Acetaminophen Tab [Tylenol] 1,000 mg PO Q6HR PRN tab 10/24/23 02/16/24 Rx Clopidogrel [Plavix] 75 mg PO DAILY #30 tab 10/24/23 02/16/24 Rx Pantoprazole [Protonix] 40 mg PO AC-BRKFST #30 tab 10/24/23 02/16/24 Rx HYDROcodone/APAP 5-325MG [[place] 1 tab PO Q4-6H PRN 02/16/24 02/16/24 History 5-325] Isosorbide Mononitrate ER [Imdur] 60 mg PO DAILY #30 tab 02/22/24 Rx Metoprolol Tartrate [Lopressor] 25 mg PO BID #180 tab 02/22/24 Rx Nitroglycerin Sl Tabs [Nitrostat] 0.4 mg SUBLINGUAL Q5M PRN #25 tab 02/22/24 Rx Rosuvastatin [Crestor] 20 mg PO HS #90 tablet 02/22/24 Rx Allergies Allergy/AdvReac Type Severity Reaction Status Date / Time zolpidem [From Ambien] Allergy Hallucinati Verified 02/26/24 20:12 ons atorvastatin [From Lipitor] AdvReac jt and Verified 02/26/24 20:12 muscle pain baclofen AdvReac caused a Verified 02/26/24 20:12 fall Physical Exam Vitals: Vital Signs Temp Pulse Resp BP Pulse Ox 02/27/24 02:00 57 L 15 126/49 99 02/27/24 01:00 57 L 14 153/73 99 02/27/24 00:58 55 L 15 110/48 99 02/26/24 23:02 59 L 18 115/46 02/26/24 21:15 64 18 130/57 99 02/26/24 20:23 67 18 119/53 97 02/26/24 20:12 98.1 F 71 16 121/56 Intake and Output 02/26/24 02/26/24 02/27/24 14:59 22:59 06:59 Other: Weight 99.79 kg Results CBC & Chem 7: 02/26/24 20:51 02/26/24 20:51 Labs: Abnormal Lab Results - Last 24 Hours (Table) 02/26/24 02/26/24 Range/Units 20:51 20:51 RBC 2.98 L (4.30-5.90) m/uL Hgb 9.5 L (13.0-17.5) gm/dL Hct 28.1 L (39.0-53.0) % Plt Count 149 L (150-450) k/uL Sodium 133 L (137-145) mmol/L Chloride 96 L (98-107) mmol/L BUN 48 H (9-20) mg/dL Creatinine 4.02 H (0.66-1.25) mg/dL Glucose 281 H (74-99) mg/dL
[2024-02-27] MEDS: ATORVASTATIN 80 MG TAB PO STA (04:34)
[2024-02-27 04:52] LABS: Glucose,Whole Blood 119 mg/dL (70-110)
[2024-02-27] MEDS: NITROGLYCERIN OINT 1 INCH/GM PACKET TOPICAL SCH (06:57)
[2024-02-27 07:00] LABS: Glucose,Whole Blood 181 mg/dL (70-110)
[2024-02-27 07:47] LABS: HCT 31.7 % (39.0-53.0); HGB 10.6 gm/dL (13.0-17.5); MCH 31.7 pg (25.0-35.0); MCHC 33.3 g/dL (31.0-37.0); MCV 95.2 fL (80.0-100.0); Platelet Count 166 k/uL (150-450); RBC 3.33 m/uL (4.30-5.90); RDW 15.5 % (11.5-15.5); WBC 4.9 k/uL (3.8-10.6)
[2024-02-27] MEDS: METOPROLOL TARTRATE 25 MG TAB PO SCH (08:01)
[2024-02-27] MEDS: ASPIRIN 81 MG PO SCH (08:01)
[2024-02-27] MEDS: CHOLECALCIFEROL 25 MCG (1000 IU) TABLET PO SCH (08:01)
[2024-02-27] MEDS: FERROUS SULFATE 325 MG TAB PO SCH (08:02)
[2024-02-27] MEDS: ESCITALOPRAM 10 MG TAB PO SCH (08:02)
[2024-02-27] MEDS: PANTOPRAZOLE 40 MG TABLET PO SCH (08:02)
[2024-02-27] MEDS: CLOPIDOGREL 75 MG TAB PO SCH (08:02)
[2024-02-27] MEDS: ISOSORBIDE MONONITRATE ER 60 MG TAB.ER.24H PO SCH (08:02)
[2024-02-27] MEDS: EZETIMIBE 10 MG TAB PO SCH (08:02)
[2024-02-27] MEDS: INSULIN ASPART (NovoLOG) 100 UNIT/ML VIAL SQ SCH (08:02)
[2024-02-27 09:42] LABS: African American GFR (CKD) 14 (>60 ml/min/1.73 sqM); Anion Gap 10 mmol/L; Blood Urea Nitrogen 49 mg/dL (9-20); Calcium 8.6 mg/dL (8.4-10.2); Carbon Dioxide 27 mmol/L (22-30); Chloride 99 mmol/L (98-107); Glucose 108 mg/dL (74-99); Non-African American GFR(CKD) 12 (>60 ml/min/1.73 sqM); Potassium 3.7 mmol/L (3.5-5.1); Sodium 136 mmol/L (137-145)
--- NOTE | 2024-02-27 11:04 | P.CRDCN ---
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 Patient follows in the office with Dr. Castle. We have been asked to see the patient in consultation for chest pain. Patient examined at the bedside in the emergency room. Patient was recently hospitalized for chest pain and underwent cardiac catheterization with Dr. Castle with stenting of the proximal to mid RCA on February 21, 2024. Patient was discharged home in stable condition. Patient states he has been having some mild chest discomfort on and off since he was discharged. His is at the bedside and states that the patient was at a gas station and became lightheaded and confused and had a glazed look over his face. Apparently he went to the [employer] to try to pay instead of the checkout counter. DIAGNOSTICS: - EKG reveals sinus mechanism with right bundle branch block. T wave inversions in V2. Mild ST depression in V3V5. - Chest xray improved bibasilar infiltrates from prior study - Laboratory data: Troponin negative x 3. - Current home cardiac medications include aspirin 81 mg daily, Plavix 75 mg daily, Zetia 10 mg daily, Imdur 60 mg daily, metoprolol tartrate 25 mg twice a day, Crestor 20 mg at night, Demadex 40 mg every Tuesday and Tuesday - Most recent echocardiogram obtained in January 2024 revealed ejection fraction 50 to 55%, mild to moderate aortic stenosis, moderate mitral regurgitation, mild tricuspid regurgitation -Patient underwent two-vessel CABG on October 17, 2023 (LAD and ramus intermedius) - Cardiac catheterization history: February 21, 2024 revealing 70% left main stenosis, 50% proximal LAD, 80% mid LAD, 20 to 30% ramus, 100% circumflex, 80% RCA stenosis. Elevated left-sided filling pressures. iFR normal of left main into ramus. iFR abnormal of RCA. Patient underwent stenting of the proximal to mid RCA REVIEW OF SYSTEMS: At the time of my exam: CONSTITUTIONAL: Denies fever or chills. HEENT: Denies blurred vision, vision changes, or eye pain. Denies hemoptysis CARDIOVASCULAR: Denies chest pain. Denies orthopnea. Denies PND. Denies palpitations RESPIRATORY: Denies shortness of breath. GASTROINTESTINAL: Denies abdominal pain. Denies nausea or vomiting. HEMATOLOGIC: Denies bleeding disorders. GENITOURINARY: Denies any blood in urine. SKIN: Denies pruitis. Denies rash. PHYSICAL EXAM: VITAL SIGNS: Reviewed. GENERAL: Well-developed in no acute distress. HEENT: Head is normocephalic. Pupils are equal, round. Sclerae anicteric. Mucous membranes of the mouth are moist. Neck supple. No JVD or thyromegaly LUNGS: Respirations even and unlabored. Lungs essentially clear to auscultation bilaterally. HEART: Regular rate and rhythm. S1 and S2 heard. Systolic murmur noted ABDOMEN: Soft. Nondistended. Nontender. EXTREMITIES: Normal range of motion. No clubbing or cyanosis. Peripheral pulses intact. No lower extremity edema NEUROLOGIC: Awake and alert. Oriented x 3. ASSESSMENT: Chest pain, troponin negative x 3 Coronary artery disease with recent CABG x 2 vessels, left internal thoracic artery to LAD and saphenous vein from aorta to ramus intermedius, September 2023 Status postcardiac catheterization February 21, 2024 with stenting of the proximal to mid RCA End-stage renal disease on hemodialysis Hypertension Hyperlipidemia Diabetes Mild to moderate aortic stenosis PLAN: An acute coronary but has been ruled out No need to repeat echocardiogram as this was performed earlier this month Resume home cardiac medications Obtain orthostatic blood pressures Continue telemetry monitoring Continue to monitor patient for an additional 24 hours Patient to receive 30-day event monitor from the cardiology office at the time of discharge Anticipate discharge home tomorrow patient remains stable Nurse practitioner note has been reviewed by physician. Signing provider agrees with the documented findings, assessment, and plan of care documented by [facility] as a scribe. Past Medical History Past Medical History: Blood Disorder, Coronary Artery Disease (CAD), Chest Pain / Angina, Heart Failure, COPD, Diabetes Mellitus, Dialysis, Hearing Disorder / Deafness, Hyperlipidemia, Hypertension, Myocardial Infarction ([place]), Osteoarthritis (OA), Renal Disease, Sleep Apnea/CPAP/BIPAP Additional Past Medical History / Comment(s): has insulin pump and contiunuous blood glucose monitor,fell at home on Tuesday10-10-23"got dizzy"-no injury,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. Chronic renal failure, dialysis [facility] normally. Patient has insulin pump. Has CPAP, occasionally uses. Neuropathy in feet and hands. Poor hearing. Last Myocardial Infarction Date:: History of Any Multi-Drug Resistant Organisms: None Reported Past Surgical History: Cholecystectomy, Coronary Bypass/CABG, Heart Catheterization, Heart Catheterization With Stent, Orthopedic Surgery Additional Past Surgical History / Comment(s): Shoulder surgery-no hardware, hemorrhoidectomy, eye surgery,4 cardiac stents,AV fistula left forearm, double vessle CABG 10/17/23 Past Anesthesia/Blood Transfusion Reactions: No Reported Reaction Additional Past Anesthesia/Blood Transfusion Reaction / Comment(s): Never had a blood transfusion. Date of Last Stent Placement:: Past Psychological History: No Psychological Hx Reported Smoking Status: Former smoker Past Alcohol Use History: None Reported Past Drug Use History: None Reported - Past Family History Father Family Medical History: Cancer Additional Family Medical History / Comment(s): Bladder cancer. Mother Family Medical History: Cancer, Diabetes Mellitus Additional Family Medical History / Comment(s): Pancreatic cancer. Medications and Allergies Home Medications Medication Instructions Recorded Confirmed Type Ezetimibe [Zetia] 10 mg PO DAILY 05/19/16 02/27/24 History Ferrous Sulfate [Iron (65 MG 325 mg PO DAILY 05/19/16 02/27/24 History Elemental)] Insulin Aspart (For Pump) [NovoLOG 0.01 unit SQ-PUMP CONTINUOUS 05/28/18 02/27/24 History (For Pump)] Pramipexole [Mirapex] 0.5 mg PO BID PRN 05/02/19 02/27/24 History Albuterol Inhaler [Ventolin Hfa 2 puff INHALATION RT-Q4H PRN 08/10/21 02/27/24 History Inhaler] Aspirin EC [Ecotrin Low Dose] 81 mg PO DAILY 02/21/22 02/27/24 History Glucagon Emergency Kit 1 mg IM ONCE PRN 02/21/22 02/27/24 History Escitalopram [Lexapro] 10 mg PO DAILY 01/01/23 02/27/24 History ALPRAZolam [Xanax] 0.5 mg PO HS PRN 06/17/23 02/27/24 History Cholecalciferol [Vitamin D3 (25 50 mcg PO DAILY 06/17/23 02/27/24 History Mcg = 1000 Iu)] Tamsulosin [Flomax] 0.4 mg PO HS 06/17/23 02/27/24 History Cetirizine HCl [Zyrtec] 10 mg PO DAILY 09/22/23 02/27/24 History Folic Acid/Vit B Complex and C 0.8 mg PO DAILY 09/22/23 02/27/24 History [Nephro-Pooja Tablet] Torsemide [Demadex] 40 mg PO SUMOWEFR 09/22/23 02/27/24 History Acetaminophen Tab [Tylenol] 1,000 mg PO Q6HR PRN tab 10/24/23 02/27/24 Rx Clopidogrel [Plavix] 75 mg PO DAILY #30 tab 10/24/23 02/27/24 Rx Pantoprazole [Protonix] 40 mg PO AC-BRKFST #30 tab 10/24/23 02/27/24 Rx HYDROcodone/APAP 5-325MG [[place] 1 tab PO Q4-6H PRN 02/16/24 02/27/24 History 5-325] Isosorbide Mononitrate ER [Imdur] 60 mg PO DAILY #30 tab 02/22/24 02/27/24 Rx Metoprolol Tartrate [Lopressor] 25 mg PO BID #180 tab 02/22/24 02/27/24 Rx Nitroglycerin Sl Tabs [Nitrostat] 0.4 mg SUBLINGUAL Q5M PRN #25 tab 02/22/24 02/27/24 Rx Rosuvastatin [Crestor] 20 mg PO HS #90 tablet 02/22/24 02/27/24 Rx Allergies Allergy/AdvReac Type Severity Reaction Status Date / Time zolpidem [From Ambien] Allergy Hallucinati Verified 02/27/24 08:25 ons atorvastatin [From Lipitor] AdvReac jt and Verified 02/27/24 08:25 muscle pain baclofen AdvReac caused a Verified 02/27/24 08:25 fall Physical Exam Vitals: Vital Signs Temp Pulse Resp BP Pulse Ox 02/27/24 08:06 97.6 F 56 L 16 133/60 100 02/27/24 07:57 99 02/27/24 06:00 53 L 16 123/59 99 02/27/24 04:00 55 L 12 147/66 99 02/27/24 02:00 57 L 15 126/49 99 02/27/24 01:00 57 L 14 153/73 99 02/27/24 00:58 55 L 15 110/48 99 02/26/24 23:02 59 L 18 115/46 02/26/24 21:15 64 18 130/57 99 02/26/24 20:23 67 18 119/53 97 02/26/24 20:12 98.1 F 71 16 121/56 Intake and Output 02/26/24 02/27/24 02/27/24 22:59 06:59 14:59 Other: Weight 99.79 kg Results 02/27/24 07:28 02/27/24 07:28 Cardiac Enzymes 02/26/24 02/26/24 02/27/24 Range/Units 20:51 20:51 03:20 AST 36 (17-59) U/L Troponin I 0.021 0.033 (0.000-0.034) ng/mL 02/27/24 Range/Units 07:28 AST (17-59) U/L Troponin I 0.034 (0.000-0.034) ng/mL Coagulation 02/26/24 02/27/24 02/27/24 Range/Units 20:51 03:20 07:28 PT 11.2 (10.0-12.5) sec APTT 26.7 44.0 H 85.2 H (22.0-30.0) sec CBC 02/26/24 02/27/24 Range/Units 20:51 07:28 WBC 3.8 4.9 (3.8-10.6) k/uL RBC 2.98 L 3.33 L (4.30-5.90) m/uL Hgb 9.5 L 10.6 L (13.0-17.5) gm/dL Hct 28.1 L 31.7 L (39.0-53.0) % Plt Count 149 L 166 (150-450) k/uL Comprehensive Metabolic Panel 02/26/24 Range/Units 20:51 Sodium 133 L (137-145) mmol/L Potassium 4.1 (3.5-5.1) mmol/L Chloride 96 L (98-107) mmol/L Carbon Dioxide 27 (22-30) mmol/L BUN 48 H (9-20) mg/dL Creatinine 4.02 H (0.66-1.25) mg/dL Glucose 281 H (74-99) mg/dL Calcium 8.5 (8.4-10.2) mg/dL AST 36 (17-59) U/L ALT 21 (4-49) U/L Alkaline Phosphatase 73 (38-126) U/L Total Protein 6.6 (6.3-8.2) g/dL Albumin 3.8 (3.5-5.0) g/dL Current Medications Generic Name Dose Route Start Last Admin Trade Name Freq PRN Reason Stop Dose Admin Hydrocodone Bitart/Acetaminophen 1 each 02/27/24 00:16 Hydrocodone/Apap 5-325mg 1 Each Tab PO Q4H PRN Severe Breakthrough Pain Albuterol Sulfate 2.5 mg 02/27/24 00:16 Albuterol Nebulized 2.5 Mg/3 Ml INHALATION RT-Q4H PRN Shortness Of Breath Alprazolam 0.5 mg 02/27/24 00:16 Alprazolam 0.5 Mg Tab PO HS PRN Severe Anxiety Aspirin 81 mg 02/27/24 09:00 02/27/24 08:01 Aspirin 81 Mg PO 81 mg DAILY JOEY Administration Cholecalciferol 50 mcg 02/27/24 09:00 02/27/24 08:01 Cholecalciferol 25 Mcg (1000 Iu) Tablet PO 50 mcg DAILY JOEY Administration Clopidogrel Bisulfate 75 mg 02/27/24 09:00 02/27/24 08:02 Clopidogrel 75 Mg Tab PO 75 mg DAILY JOEY Administration Ezetimibe 10 mg 02/27/24 09:00 02/27/24 08:02 Ezetimibe 10 Mg Tab PO 10 mg DAILY JOEY Administration Escitalopram Oxalate 10 mg 02/27/24 09:00 02/27/24 08:02 Escitalopram 10 Mg Tab PO 10 mg DAILY JOEY Administration Ferrous Sulfate 325 mg 02/27/24 09:00 02/27/24 08:02 Ferrous Sulfate 325 Mg Tab PO 325 mg DAILY JOEY Administration Heparin Sodium/Sodium Chloride 250 mls @ 10 mls/hr 02/26/24 20:45 02/26/24 21:15 25,000 unit/ Sodium Chloride IV 10.021 units/kg/hr .Q24H JOEY 10 mls/hr Administration Protocol 10.021 UNITS/KG/HR Insulin Aspart 0 unit 02/27/24 07:30 02/27/24 08:02 Insulin Aspart (Novolog) 100 Unit/Ml Vial SQ 2 unit ACHS JOEY Administration Protocol Isosorbide Mononitrate 60 mg 02/27/24 09:00 02/27/24 08:02 Isosorbide Mononitrate Er 60 Mg Tab.Er.24h PO 60 mg DAILY [facility] Administration Metoprolol Tartrate 25 mg 02/27/24 09:00 02/27/24 08:01 Metoprolol Tartrate 25 Mg Tab PO 25 mg BID JOEY Administration Nitroglycerin 0.4 mg 02/27/24 00:09 Nitroglycerin Sl Tabs 0.4 Mg Tab SUBLINGUAL Q5M PRN Chest Pain Nitroglycerin 1 inch 02/27/24 06:00 02/27/24 06:57 Nitroglycerin Oint 1 Inch/Gm Packet TOPICAL 1 inch Q6HR [facility] Administration Non-Formulary Medication 20 mg 02/27/24 21:00 Rosuvastatin PO [facility] Pantoprazole Sodium 40 mg 02/27/24 07:30 02/27/24 08:02 Pantoprazole 40 Mg Tablet PO 40 mg AC-BRKFST [facility] Administration Pramipexole Dihydrochloride 0.5 mg 02/27/24 00:16 02/27/24 03:33 Pramipexole 0.5 Mg Tab PO 0.5 mg BID PRN Administration Restless legs Tamsulosin HCl 0.4 mg 02/27/24 21:00 Tamsulosin 0.4 Mg Cap.Er.24h PO HS [facility] Torsemide 40 mg 02/27/24 00:30 02/27/24 00:55 Torsemide 20 Mg Tab PO 40 mg SUMOWEFR [facility] Administration Intake and Output 02/26/24 02/27/24 02/27/24 22:59 06:59 14:59 Other: Weight 99.79 kg 02/27/24 07:28 02/26/24 20:51
[2024-02-27 12:09] LABS: Glucose,Whole Blood 141 mg/dL (70-110)
--- NOTE | 2024-02-27 14:50 | P.NPCON ---
History of Present Illness - Reason for Consult end stage renal disease - History of Present Illness patient is a 73-year-old male with end-stage renal disease on hemodialysis on a Tuesday schedule. He is admitted to the hospital with complaints of chest pain which happened while [place] the [place] troponin not elevated. Patient has been evaluated by cardiology and there is no evidence of acute ischemic event. He recently had cardiac catheterization on 02/21/2024 with stenting of the proximal to mid RCA. no chest pain currently. No history of fever chills nausea vomiting abdominal pain or diarrhea. Past Medical History Past Medical History: Blood Disorder, Coronary Artery Disease (CAD), Chest Pain / Angina, Heart Failure, COPD, Diabetes Mellitus, Dialysis, Hearing Disorder / Deafness, Hyperlipidemia, Hypertension, Myocardial Infarction ([place]), Osteoarthritis ([place]), Renal Disease, Sleep Apnea/CPAP/BIPAP Additional Past Medical History / Comment(s): has insulin pump and contiunuous blood glucose monitor,fell at home on Tuesday10-10-23"got dizzy"-no injury,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. Chronic renal failure, dialysis [facility] normally. Patient has insulin pump. Has CPAP, occasionally uses. Neuropathy in feet and hands. Poor hearing. Last Myocardial Infarction Date:: History of Any Multi-Drug Resistant Organisms: None Reported Past Surgical History: Cholecystectomy, Coronary Bypass/CABG, Heart Catheterization, Heart Catheterization With Stent, Orthopedic Surgery Additional Past Surgical History / Comment(s): Shoulder surgery-no hardware, hemorrhoidectomy, eye surgery,4 cardiac stents,AV fistula left forearm, double vessle CABG 10/17/23 Past Anesthesia/Blood Transfusion Reactions: No Reported Reaction Additional Past Anesthesia/Blood Transfusion Reaction / Comment(s): Never had a blood transfusion. Date of Last Stent Placement:: Past Psychological History: No Psychological Hx Reported Smoking Status: Former smoker Past Alcohol Use History: None Reported Past Drug Use History: None Reported - Past Family History Father Family Medical History: Cancer Additional Family Medical History / Comment(s): Bladder cancer. Mother Family Medical History: Cancer, Diabetes Mellitus Additional Family Medical History / Comment(s): Pancreatic cancer. Medications and Allergies Home Medications Medication Instructions Recorded Confirmed Type Ezetimibe [Zetia] 10 mg PO DAILY 05/19/16 02/27/24 History Ferrous Sulfate [Iron (65 MG 325 mg PO DAILY 05/19/16 02/27/24 History Elemental)] Insulin Aspart (For Pump) [NovoLOG 0.01 unit SQ-PUMP CONTINUOUS 05/28/18 02/27/24 History (For Pump)] Pramipexole [Mirapex] 0.5 mg PO BID PRN 05/02/19 02/27/24 History Albuterol Inhaler [Ventolin Hfa 2 puff INHALATION RT-Q4H PRN 08/10/21 02/27/24 History Inhaler] Aspirin EC [Ecotrin Low Dose] 81 mg PO DAILY 02/21/22 02/27/24 History Glucagon Emergency Kit 1 mg IM ONCE PRN 02/21/22 02/27/24 History Escitalopram [Lexapro] 10 mg PO DAILY 01/01/23 02/27/24 History ALPRAZolam [Xanax] 0.5 mg PO HS PRN 06/17/23 02/27/24 History Cholecalciferol [Vitamin D3 (25 50 mcg PO DAILY 06/17/23 02/27/24 History Mcg = 1000 Iu)] Tamsulosin [Flomax] 0.4 mg PO HS 06/17/23 02/27/24 History Cetirizine HCl [Zyrtec] 10 mg PO DAILY 09/22/23 02/27/24 History Folic Acid/Vit B Complex and C 0.8 mg PO DAILY 09/22/23 02/27/24 History [Nephro-Pooja Tablet] Torsemide [Demadex] 40 mg PO SUMOWEFR 09/22/23 02/27/24 History Acetaminophen Tab [Tylenol] 1,000 mg PO Q6HR PRN tab 10/24/23 02/27/24 Rx Clopidogrel [Plavix] 75 mg PO DAILY #30 tab 10/24/23 02/27/24 Rx Pantoprazole [Protonix] 40 mg PO AC-BRKFST #30 tab 10/24/23 02/27/24 Rx HYDROcodone/APAP 5-325MG [[place] 1 tab PO Q4-6H PRN 02/16/24 02/27/24 History 5-325] Isosorbide Mononitrate ER [Imdur] 60 mg PO DAILY #30 tab 02/22/24 02/27/24 Rx Metoprolol Tartrate [Lopressor] 25 mg PO BID #180 tab 02/22/24 02/27/24 Rx Nitroglycerin Sl Tabs [Nitrostat] 0.4 mg SUBLINGUAL Q5M PRN #25 tab 02/22/24 02/27/24 Rx Rosuvastatin [Crestor] 20 mg PO HS #90 tablet 02/22/24 02/27/24 Rx Allergies Allergy/AdvReac Type Severity Reaction Status Date / Time zolpidem [From Ambien] Allergy Hallucinati Verified 02/27/24 08:25 ons atorvastatin [From Lipitor] AdvReac jt and Verified 02/27/24 08:25 muscle pain baclofen AdvReac caused a Verified 02/27/24 08:25 fall Physical Exam Vitals: Vital Signs Temp Pulse Resp BP Pulse Ox 02/27/24 13:00 52 L 16 131/85 98 02/27/24 12:12 51 L 18 109/50 99 02/27/24 08:06 97.6 F 56 L 16 133/60 100 02/27/24 07:57 99 02/27/24 06:00 53 L 16 123/59 99 02/27/24 04:00 55 L 12 147/66 99 02/27/24 02:00 57 L 15 126/49 99 02/27/24 01:00 57 L 14 153/73 99 02/27/24 00:58 55 L 15 110/48 99 02/26/24 23:02 59 L 18 115/46 02/26/24 21:15 64 18 130/57 99 02/26/24 20:23 67 18 119/53 97 02/26/24 20:12 98.1 F 71 16 121/56 Intake and Output 02/26/24 02/27/24 02/27/24 22:59 06:59 14:59 Other: Weight 99.79 kg patient is awake, comfortable, no acute distress Alert oriented 3 Examination of the heart S1 and S2 Examination of the lungs bilateral breath sounds are heard Abdomen is soft nontender Examination of lower extremity shows no significant edema [employer] exam grossly intact Results - Lab Results Most recent lab results Calcium 8.6 mg/dL (8.4-10.2) 02/27/24 07: Magnesium 1.8 mg/dL (1.6-2.3) 02/26/24 20:51 02/27/24 07:28 02/27/24 07:28 Assessment and Plan Assessment: 1. End-stage renal disease on hemodialysis on a Tuesday [facility] via left arm AV fistula. 2. Chest pain with negative troponins. Status post recent cardiac c atheterization and coronary stenting on 02/21/2024 3. Coronary artery disease with history of coronary artery bypass surgery and recent cardiac catheterization on 02/21/2024 with coronary stenting 4. CK D mineral bone disorder Plan: hemodialysis in a.m. Continue with torsemide
[2024-02-27 17:04] LABS: Glucose,Whole Blood 152 mg/dL (70-110)
[2024-02-27] MEDS: NITROGLYCERIN SL TABS 0.4 MG TAB SUBLINGUAL PRN (17:15)
[2024-02-27 19:49] LABS: Glucose,Whole Blood 140 mg/dL (70-110)
[2024-02-27] MEDS: NON FORMULARY DRUG (Rosuvastatin 20 MG Tablet) PO SCH (20:03)
[2024-02-27] MEDS: TAMSULOSIN 0.4 MG CAP.ER.24H PO SCH (20:26)
[2024-02-27] MEDS: ALPRAZolam 0.5 MG TAB PO PRN (20:26)
[2024-02-28 02:25] LABS: Glucose,Whole Blood 182 mg/dL (70-110)
[2024-02-28 06:14] LABS: Glucose,Whole Blood 169 mg/dL (70-110)
[2024-02-28 07:54] LABS: HCT 30.1 % (39.0-53.0); HGB 10.1 gm/dL (13.0-17.5); MCH 31.8 pg (25.0-35.0); MCHC 33.5 g/dL (31.0-37.0); MCV 95.2 fL (80.0-100.0); Mean Platelet Volume 8.5; Platelet Count 157 k/uL (150-450); RBC 3.16 m/uL (4.30-5.90); RDW 15.8 % (11.5-15.5); WBC 5.2 k/uL (3.8-10.6)
[2024-02-28 08:31] LABS: African American GFR (CKD) 14 (>60 ml/min/1.73 sqM); Anion Gap 9 mmol/L; Blood Urea Nitrogen 52 mg/dL (9-20); Calcium 8.7 mg/dL (8.4-10.2); Carbon Dioxide 26 mmol/L (22-30); Chloride 100 mmol/L (98-107); Glucose 159 mg/dL (74-99); Non-African American GFR(CKD) 12 (>60 ml/min/1.73 sqM); Potassium 4.2 mmol/L (3.5-5.1); Sodium 135 mmol/L (137-145)
--- NOTE | 2024-02-28 08:53 | P.PN ---
Subjective Progress Note Date: 02/28/24 Subjective: (02/26) Patient seen at bedside. No significant overnight events. Patient reported his chest pain had decreased significantly from when he initially arrived in the ED. (02/27) patient seen at bedside. No significant overnight events. Patient reports his chest pain is resolved at rest, but will get some intermittent chest pain and shortness of breath while walking up and down the [place]. Patient reports it is slowly improving. Pertinent positives and negatives discussed above, a complete review of systems was preformed and all the other sytems were negative. Vitals Signs Reveiwed. General: non toxic, no distress, appears at stated age, obese Derm: no unusual rashes/lesions, warm Head: atraumatic, normocephalic, symmetric Eyes: EOMI, no lid lag, anicteric sclera, pupils equal round reactive to light ENT: Nose and ears atraumatic Neck: No cervical lymphadenopathy, trachea midline, supple Mouth: no lip lesion, mucus membranes moist Cardiovascular: S1S2 reg, grade 3 systolic murmur appreciated, positive dorsalis pedis pulse bilateral, trace bilateral lower extremity pitting edema Lungs: CTA bilateral, no rhonchi, no rales, no accessory muscle use Abdominal: soft, nontender to palpation, no guarding Ext: muscle strength 5 out of 5 in all 4 extremities grossly, no gross muscle atrophy, no contractures, Neuro: CN II-XI grossly intact, no gross focal neuro deficits Psych: Alert, oriented, appropriate affect Data Reveiwed Today: Patient Labs: Pending labs today Imaging: No new imaging today Assesment:73-year-old male with a past medical history significant for coronary artery disease with two-vessel CABG in September 2023 and subsequent stenting, chronic kidney disease on hemodialysis, hypertension, hyperlipidemia, and diabetes presented to the ED with chest pain. Patient is admitted for workup and treatment of atypical chest pain and to rule out ACS. Plan: Unstable angina: Patient's has only exertional chest pain now, no more dizziness. Per cardiology ACS has been ruled out, will not repeat echo due to earlier 1 performed this month, resumed cardiac medications, obtained orthostatics, monitor for 24 hours, add 30-day event monitor, possible cardiac cath tomorrow with Dr. Castle Continue aspirin and statin Continue Plavix at this time Continue patient's home Lopressor dose Troponins went from 0.021 to 0.034 ESRD (TTS): Hyponatremia, at baseline Will receive dialysis this morning Nephrology on board Type II DM: Insulin sliding scale Accu-Cheks Hypoglycemia precautions Discontinued patient's home insulin pump Nitrobid ordered Cardiac monitoring Trend troponin Nephrology consulted for resumption of hemodialysis F none E none N n.p.o. A normally ambulates without assistance DVT ppx: Plavix 75 mg p.o. Code Status: Full code Anticipated discharge place: To home Anticipated discharge time: Pending clinical course I have seen and evaluated the patient today. Discussed with the resident and agree with the residents subjective and objective as documented in the resident's note. The assessment and plan was discussed and outlined as below. Patient with exertional chest pain this morning. No more dizziness. Orthostats are negative. Tentative plans for cardiac cath tomorrow. Objective - Vital Signs Vital signs: Vital Signs Temp 97.7 F 02/28/24 02:20 Pulse 56 L 02/28/24 02:20 Resp 14 02/28/24 02:20 BP 116/49 02/28/24 02:20 Pulse Ox 98 02/28/24 02:20 FiO2 Intake & Output 02/27/24 02/28/24 02/28/24 18:59 06:59 18:59 Weight 99.79 kg Other: Voiding Method Toilet # Voids 2 # Bowel Movements 0 - Labs CBC & Chem 7: 02/28/24 07:27 02/28/24 07:27 Labs: Abnormal Lab Results - Last 24 Hours (Table) 02/27/24 02/27/24 02/27/24 Range/Units 07:28 07:28 07:28 RBC 3.33 L (4.30-5.90) m/uL Hgb 10.6 L (13.0-17.5) gm/dL Hct 31.7 L (39.0-53.0) % APTT 85.2 H (22.0-30.0) sec Sodium 136 L (137-145) mmol/L BUN 49 H (9-20) mg/dL Creatinine 4.45 H (0.66-1.25) mg/dL Glucose 108 H (74-99) mg/dL POC Glucose (mg/dL) (70-110) mg/dL 02/27/24 02/27/24 02/27/24 Range/Units 12:08 17:03 19:48 RBC (4.30-5.90) m/uL Hgb (13.0-17.5) gm/dL Hct (39.0-53.0) % APTT (22.0-30.0) sec Sodium (137-145) mmol/L BUN (9-20) mg/dL Creatinine (0.66-1.25) mg/dL Glucose (74-99) mg/dL POC Glucose (mg/dL) 141 H 152 H 140 H (70-110) mg/dL 02/28/24 02/28/24 Range/Units 02:24 06:11 RBC (4.30-5.90) m/uL Hgb (13.0-17.5) gm/dL Hct (39.0-53.0) % APTT (22.0-30.0) sec Sodium (137-145) mmol/L BUN (9-20) mg/dL Creatinine (0.66-1.25) mg/dL Glucose (74-99) mg/dL POC Glucose (mg/dL) 182 H 169 H (70-110) mg/dL
[2024-02-28 09:03] LABS: Chol/HDL Ratio 3.11 Ratio
[2024-02-28 09:25] LABS: LDL Cholesterol,Calculated 33.2 mg/dL (0.0-131.0)
--- NOTE | 2024-02-28 10:37 | P.PN ---
Subjective HISTORY OF PRESENT ILLNESS: This is a 73-year-old male with a past medical history significant for coronary artery disease with two-vessel CABG in September 2023 and subsequent stenting, chronic kidney disease on hemodialysis, hypertension, hyperlipidemia, and diabetes. Patient follows in the office with Dr. Castle. We have been asked to see the patient in consultation for chest pain. Patient examined at the bedside in the emergency room. Patient was recently hospitalized for chest pain and underwent cardiac catheterization with Dr. Castel with stenting of the proximal to mid RCA on February 21, 2024. Patient was discharged home in stable condition. Patient states he has been having some mild chest discomfort on and off since he was discharged. His is at the bedside and states that the patient was at a gas station and became lightheaded and confused and had a glazed look over his face. Apparently he went to the [employer] to try to pay instead of the checkout counter. DIAGNOSTICS: - EKG reveals sinus mechanism with right bundle branch block. T wave inversions in V2. Mild ST depression in V3V5. - Chest xray improved bibasilar infiltrates from prior study - Laboratory data: Troponin negative x 3. - Current home cardiac medications include aspirin 81 mg daily, Plavix 75 mg daily, Zetia 10 mg daily, Imdur 60 mg daily, metoprolol tartrate 25 mg twice a day, Crestor 20 mg at night, Demadex 40 mg every Tuesday and Tuesday - Most recent echocardiogram obtained in January 2024 revealed ejection fraction 50 to 55%, mild to moderate aortic stenosis, moderate mitral regurgitation, mild tricuspid regurgitation -Patient underwent two-vessel CABG on October 17, 2023 (LAD and ramus intermedius) - Cardiac catheterization history: February 21, 2024 revealing 70% left main stenosis, 50% proximal LAD, 80% mid LAD, 20 to 30% ramus, 100% circumflex, 80% RCA stenosis. Elevated left-sided filling pressures. iFR normal of left main into ramus. iFR abnormal of RCA. Patient underwent stenting of the proximal to mid RCA 02/28/2024 Patient examined this morning at the bedside. Patient continues to report episodes of chest pain with exertion. EKG obtained after 1 of these episodes which did not reveal any ischemic changes. He states he is symptom-free when he is at rest. He currently denies any shortness of breath. Vital signs are stable. PHYSICAL EXAM: VITAL SIGNS: Reviewed. GENERAL: Well-developed in no acute distress. HEENT: Head is normocephalic. Pupils are equal, round. Sclerae anicteric. Mucous membranes of the mouth are moist. Neck supple. No JVD or thyromegaly LUNGS: Respirations even and unlabored. Lungs essentially clear to auscultation bilaterally. HEART: Regular rate and rhythm. S1 and S2 heard. Systolic murmur noted ABDOMEN: Soft. Nondistended. Nontender. EXTREMITIES: Normal range of motion. No clubbing or cyanosis. Peripheral pulses intact. No lower extremity edema NEUROLOGIC: Awake and alert. Oriented x 3. ASSESSMENT: Chest pain, troponin negative x 3 Coronary artery disease with recent CABG x 2 vessels, left internal thoracic artery to LAD and saphenous vein from aorta to ramus intermedius, September 2023 Status postcardiac catheterization February 21, 2024 with stenting of the proximal to mid RCA End-stage renal disease on hemodialysis Hypertension Hyperlipidemia Diabetes Mild to moderate aortic stenosis PLAN: Continue current cardiac medications Continue telemetry monitoring Possible cardiac catheterization tomorrow with Dr. Castle Patient to receive 30-day event monitor from the cardiology office at the time of discharge. This is tentatively scheduled for . Further recommendations pending patient course Nurse practitioner note has been reviewed by physician. Signing provider agrees with the documented findings, assessment, and plan of care documented by SENIOR INTERACTIVE DEVELOPER as a scribe. Objective - Vital Signs Vital signs: Vital Signs Temp 98.0 F 02/28/24 07:00 Pulse 58 L 02/28/24 10:08 Resp 18 02/28/24 10:08 BP 142/66 02/28/24 07:00 Pulse Ox 96 02/28/24 07:00 FiO2 Intake & Output 02/27/24 02/28/24 02/28/24 18:59 06:59 18:59 Weight 99.79 kg Other: Voiding Method Toilet Toilet # Voids 2 # Bowel Movements 0 - Labs CBC & Chem 7: 02/28/24 07:27 02/28/24 07:27 Labs: Abnormal Lab Results - Last 24 Hours (Table) 02/27/24 02/27/24 02/27/24 Range/Units 12:08 17:03 19:48 RBC (4.30-5.90) m/uL Hgb (13.0-17.5) gm/dL Hct (39.0-53.0) % RDW (11.5-15.5) % Sodium (137-145) mmol/L BUN (9-20) mg/dL Creatinine (0.66-1.25) mg/dL Glucose (74-99) mg/dL POC Glucose (mg/dL) 141 H 152 H 140 H (70-110) mg/dL Triglycerides (0.00-149.00) mg/dL HDL Cholesterol (40.00-60.00) mg/dL 02/28/24 02/28/24 02/28/24 Range/Units 02:24 06:11 06:24 RBC (4.30-5.90) m/uL Hgb (13.0-17.5) gm/dL Hct (39.0-53.0) % RDW (11.5-15.5) % Sodium (137-145) mmol/L BUN (9-20) mg/dL Creatinine (0.66-1.25) mg/dL Glucose (74-99) mg/dL POC Glucose (mg/dL) 182 H 169 H (70-110) mg/dL Triglycerides 187.00 H (0.00-149.00) mg/dL HDL Cholesterol 33.40 L (40.00-60.00) mg/dL 02/28/24 02/28/24 Range/Units 07:27 07:27 RBC 3.16 L (4.30-5.90) m/uL Hgb 10.1 L (13.0-17.5) gm/dL Hct 30.1 L (39.0-53.0) % RDW 15.8 H (11.5-15.5) % Sodium 135 L (137-145) mmol/L BUN 52 H (9-20) mg/dL Creatinine 4.48 H (0.66-1.25) mg/dL Glucose 159 H (74-99) mg/dL POC Glucose (mg/dL) (70-110) mg/dL Triglycerides (0.00-149.00) mg/dL HDL Cholesterol (40.00-60.00) mg/dL
[2024-02-28 10:58] LABS: Glucose,Whole Blood 336 mg/dL (70-110)
[2024-02-28] MEDS ORDERED: ALPRAZolam 0.5 MG TAB PO PRN (12:55)
[2024-02-28] MEDS ORDERED: ALPRAZolam 0.25 MG TAB PO PRN (12:55)
[2024-02-28] MEDS ORDERED: NITROGLYCERIN SL TABS 0.4 MG TAB SUBLINGUAL PRN (12:55)
--- NOTE | 2024-02-28 13:44 | P.PN ---
Subjective patient is seen for follow-up for end-stage renal disease. Scheduled for hemodialysis in a.m. 30 day event monitor ordered from cardiology. 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8 H (11.5-15.5) % Sodium (137-145) mmol/L BUN (9-20) mg/dL Creatinine (0.66-1.25) mg/dL Glucose (74-99) mg/dL POC Glucose (mg/dL) 169 H (70-110) mg/dL Triglycerides 187.00 H (0.00-149.00) mg/dL HDL Cholesterol 33.40 L (40.00-60.00) mg/dL 02/28/24 02/28/24 Range/Units 07:27 10:56 RBC (4.30-5.90) m/uL Hgb (13.0-17.5) gm/dL Hct (39.0-53.0) % RDW (11.5-15.5) % Sodium 135 L (137-145) mmol/L BUN 52 H (9-20) mg/dL Creatinine 4.48 H (0.66-1.25) mg/dL Glucose 159 H (74-99) mg/dL POC Glucose (mg/dL) 336 H (70-110) mg/dL Triglycerides (0.00-149.00) mg/dL HDL Cholesterol (40.00-60.00) mg/dL Assessment and Plan Assessment: 1. End-stage renal disease on hemodialysis on a Tuesday schedule via left arm AV fistula. 2. Chest pain with negative troponins. Status post recent cardiac catheterization and coronary stenting on 02/21/2024 3. Coronary artery disease with history of coronary artery bypass surgery and recent cardiac catheterization on 02/21/2024 with coronary stenting 4. CK D mineral bone disorder Plan: hemodialysis today. Continue with torsemide
[2024-02-28 15:49] LABS: Glucose,Whole Blood 364 mg/dL (70-110)
[2024-02-28 19:43] LABS: Glucose,Whole Blood 92 mg/dL (70-110)
[2024-02-28] MEDS: PRAVASTATIN SODIUM 40 MG TAB PO SCH (21:47)
[2024-02-29] MEDS: SODIUM CHLORIDE 0.9% 1,000 ML in EMPTY BAG 1 BAG IV SCH ×2 (04:53→18:14)
[2024-02-29] MEDS: ATORVASTATIN 80 MG TAB PO ONE (04:53)
[2024-02-29] MEDS: ASPIRIN 325 MG TAB PO ONE (04:53)
[2024-02-29 05:41] LABS: Glucose,Whole Blood 167 mg/dL (70-110)
[2024-02-29] MEDS ORDERED: HEPARIN SODIUM,PORCINE 10,000 UNIT in SODIUM CHLORIDE 0.9% 1,000 ML IRRIGATION PRN (07:00)
[2024-02-29] MEDS ORDERED: HEPARIN SODIUM,PORCINE (1 ML) 2,500 UNIT in SODIUM CHLORIDE 0.9% 250 ML IRRIGATION PRN (07:00)
[2024-02-29 08:00] LABS: HCT 28.1 % (39.0-53.0); HGB 9.6 gm/dL (13.0-17.5); MCH 31.6 pg (25.0-35.0); MCV 92.9 fL (80.0-100.0); Platelet Count 151 k/uL (150-450); RBC 3.03 m/uL (4.30-5.90); RDW 15.7 % (11.5-15.5); WBC 4.8 k/uL (3.8-10.6)
[2024-02-29 08:21] LABS: African American GFR (CKD) 18 (>60 ml/min/1.73 sqM); Anion Gap 9 mmol/L; Blood Urea Nitrogen 33 mg/dL (9-20); Calcium 8.6 mg/dL (8.4-10.2); Carbon Dioxide 26 mmol/L (22-30); Chloride 95 mmol/L (98-107); Glucose 181 mg/dL (74-99); Non-African American GFR(CKD) 16 (>60 ml/min/1.73 sqM); Potassium 3.8 mmol/L (3.5-5.1); Sodium 130 mmol/L (137-145)
--- NOTE | 2024-02-29 11:35 | P.PN ---
Subjective Progress Note Date: 02/29/24 (02/26) Patient seen at bedside. No significant overnight events. Patient reported his chest pain had decreased significantly from when he initially arrived in the ED. (02/27) Patient seen at bedside. No significant overnight events. Patient reports his chest pain is resolved at rest, but will get some intermittent chest pain and shortness of breath while walking up and down the [place]. Patient reports it is slowly improving. (02/28) Patient seen at bedside. No significant overnight events. Patient reports chest pain is resolved at rest as well as on exertion. Patient is able to walk up and down the [place] multiple times without feeling any chest pain. Pertinent positives and negatives discussed above, a complete review of systems was preformed and all the other sytems were negative. Vitals Signs Reveiwed. General: non toxic, no distress, appears at stated age, obese Derm: no unusual rashes/lesions, warm Head: atraumatic, normocephalic, symmetric Eyes: EOMI, no lid lag, anicteric sclera, pupils equal round reactive to light ENT: Nose and ears atraumatic Neck: No cervical lymphadenopathy, trachea midline, supple Mouth: no lip lesion, mucus membranes moist Cardiovascular: S1S2 reg, grade 3 systolic murmur appreciated, positive dorsalis pedis pulse bilateral, trace bilateral lower extremity pitting edema Lungs: CTA bilateral, no rhonchi, no rales, no accessory muscle use Abdominal: soft, nontender to palpation, no guarding Ext: muscle strength 5 out of 5 in all 4 extremities grossly, no gross muscle atrophy, no contractures, Neuro: CN II-XI grossly intact, no gross focal neuro deficits Psych: Alert, oriented, appropriate affect Data Reveiwed Today: Patient Labs: Pending labs today Imaging: No new imaging today Assesment:73-year-old male with a past medical history significant for coronary artery disease with two-vessel CABG in September 2023 and subsequent stenting, chronic kidney disease on hemodialysis, hypertension, hyperlipidemia, and diabetes presented to the ED with chest pain. Patient is admitted for workup and treatment of atypical chest pain and to rule out ACS. Plan: Unstable angina: Patient's has only exertional chest pain now, no more dizziness. Per cardiology ACS has been ruled out, will not repeat echo due to earlier 1 performed this month, resumed cardiac medications, orthostatics negative, monitor for 24 hours, add 30-day event monitor Patient will undergo angiography and catheterization today (02/28) Continue aspirin and statin Continue Plavix at this time Continue patient's home Lopressor dose Troponins went from 0.021 to 0.034 ESRD (TTS): Hyponatremia, at baseline Receiving dialysis on normal schedule No concerns with getting angiography done with contrast as patient will be dialyzed tomorrow (03/01) Type II DM: Insulin sliding scale Accu-Cheks Hypoglycemia precautions Discontinued patient's home insulin pump F none E none N n.p.o. A normally ambulates without assistance DVT ppx: Plavix 75 mg p.o. Code Status: Full code Anticipated discharge place: To home Anticipated discharge time: Pending clinical course I have seen and evaluated the patient today. Discussed with the resident and agree with the residents subjective and objective as documented in the resident's note. The assessment and plan was discussed and outlined as below. No more chest pain. Plans for cardiac cath today. Plans for HD tomorrow per Nephro. Unstable angina: Plans for cardiac cath today. ASA 81 mg PO QD. Plavix 75 mg PO QD. Metoprolol 25 mg PO BID. Crestor 20 mg PO QHS. Telemetry monitoring. Cardiology on board. ESRD on PD TTS schedule: Plans for HD tomorrow. Nephrology on board. Type 2 DM: ISS. Accuchecks ACHS. Hypoglycemic precautions. Normocytic anemia: Likely AOCD from ESRD. Appears at baseline. No signs of acti ve bleeding. Transfuse if Hg < 7. Hypochloremic hyponatremia: Hopeful improvements with PD. Objective - Vital Signs Vital signs: Vital Signs Temp 97.9 F 02/29/24 02:00 Pulse 77 02/29/24 02:00 Resp 14 02/29/24 02:00 BP 98/50 02/29/24 02:00 Pulse Ox 98 02/29/24 02:00 FiO2 Intake & Output 02/28/24 02/29/24 02/29/24 18:59 06:59 18:59 Intake Total 650 240 Output Total 4500 Balance -3850 240 Intake: Oral 150 240 Hemodialysis 500 Output: Hemodialysis 2500 Hemodialysis Net Amount 2000 Other: Voiding Method Toilet Toilet # Voids 2 - Labs CBC & Chem 7: 02/29/24 07:29 02/29/24 07:29 Labs: Abnormal Lab Results - Last 24 Hours (Table) 02/28/24 02/28/24 02/28/24 Range/Units 06:24 07:27 07:27 RBC 3.16 L (4.30-5.90) m/uL Hgb 10.1 L (13.0-17.5) gm/dL Hct 30.1 L (39.0-53.0) % RDW 15.8 H (11.5-15.5) % Sodium 135 L (137-145) mmol/L BUN 52 H (9-20) mg/dL Creatinine 4.48 H (0.66-1.25) mg/dL Glucose 159 H (74-99) mg/dL POC Glucose (mg/dL) (70-110) mg/dL Triglycerides 187.00 H (0.00-149.00) mg/dL HDL Cholesterol 33.40 L (40.00-60.00) mg/dL 02/28/24 02/28/24 02/29/24 Range/Units 10:56 15:46 05:40 RBC (4.30-5.90) m/uL Hgb (13.0-17.5) gm/dL Hct (39.0-53.0) % RDW (11.5-15.5) % Sodium (137-145) mmol/L BUN (9-20) mg/dL Creatinine (0.66-1.25) mg/dL Glucose (74-99) mg/dL POC Glucose (mg/dL) 336 H 364 H 167 H (70-110) mg/dL Triglycerides (0.00-149.00) mg/dL HDL Cholesterol (40.00-60.00) mg/dL
--- NOTE | 2024-02-29 11:35 | P.PN ---
Subjective patient is seen for follow-up for end-stage renal disease. status post hemodialysis yesterday with UF of 2 L. 30 day event monitor ordered from cardiology. Objective - Vital Signs Vital signs: Vital Signs Temp 97.7 F 02/29/24 07:00 Pulse 66 02/29/24 08:00 Resp 18 02/29/24 08:00 BP 104/55 02/29/24 07:00 Pulse Ox 95 02/29/24 07:50 FiO2 Intake & Output 02/28/24 02/29/24 02/29/24 18:59 06:59 18:59 Intake Total 650 240 Output Total 4500 Balance -3850 240 Intake: Oral 150 240 Hemodialysis 500 Output: Hemodialysis 2500 Hemodialysis Net Amount 2000 Other: Voiding Method Toilet Toilet Toilet # Voids 2 - Exam patient is awake, comfortable, no acute distress Alert oriented 3 Examination of the heart S1 and S2 Examination of the lungs bilateral breath sounds are heard Abdomen is soft nontender Examination of lower extremity shows no significant edema 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 - Labs CBC & Chem 7: 02/29/24 07:29 02/29/24 07:29 Labs: Abnormal Lab Results - Last 24 Hours (Table) 02/28/24 02/29/24 02/29/24 Range/Units 15:46 05:40 07:29 RBC 3.03 L (4.30-5.90) m/uL Hgb 9.6 L (13.0-17.5) gm/dL Hct 28.1 L (39.0-53.0) % RDW 15.7 H (11.5-15.5) % Sodium (137-145) mmol/L Chloride (98-107) mmol/L BUN (9-20) mg/dL Creatinine (0.66-1.25) mg/dL Glucose (74-99) mg/dL POC Glucose (mg/dL) 364 H 167 H (70-110) mg/dL 02/29/24 Range/Units 07:29 RBC (4.30-5.90) m/uL Hgb (13.0-17.5) gm/dL Hct (39.0-53.0) % RDW (11.5-15.5) % Sodium 130 L (137-145) mmol/L Chloride 95 L (98-107) mmol/L BUN 33 H (9-20) mg/dL Creatinine 3.62 H (0.66-1.25) mg/dL Glucose 181 H (74-99) mg/dL POC Glucose (mg/dL) (70-110) mg/dL Assessment and Plan Assessment: 1. End-stage renal disease on hemodialysis on a Tuesday schedule via left arm AV fistula. 2. Chest pain with negative troponins. Status post recent cardiac catheterization and coronary stenting on 02/21/2024 3. Coronary artery disease with history of coronary artery bypass surgery and recent cardiac catheterization on 02/21/2024 with coronary stenting 4. CK D mineral bone disorder Plan: hemodialysis in a.m. Continue with torsemide
[2024-02-29 11:44] LABS: Glucose,Whole Blood 222 mg/dL (70-110)
[2024-02-29] MEDS ORDERED: HEPARIN SODIUM 1,000 UN/ML (10ML VL) ONE (13:52)
[2024-02-29] MEDS ORDERED: VERAPAMIL 2.5 MG/ML 2 ML AMP ONE (13:52)
[2024-02-29] MEDS ORDERED: LIDOCAINE 1% INJ 10MG/ML (20 ML MDV) ONE (13:52)
[2024-02-29] MEDS ORDERED: fentaNYL (PF) 50 MCG/ML 2 ML AMP ONE (13:53)
[2024-02-29] MEDS: MIDAZOLAM 2 MG/2 ML VIAL IVP ONE (14:13)
[2024-02-29] MEDS: fentaNYL (PF) 50 MCG/ML 2 ML AMP IVP ONE (14:13)
[2024-02-29] MEDS: IV FLUID CONTINUATION 500 ML IV ONE (14:15)
[2024-02-29] MEDS: LIDOCAINE 1% INJ 10MG/ML (20 ML MDV) SQ ONE (14:17)
[2024-02-29] MEDS: HEPARIN SODIUM 1,000 UN/ML (10ML VL) IV ONE (14:23)
[2024-02-29] MEDS: IOPAMIDOL-370 200ML BTL INJ ONE (15:00)
[2024-02-29] MEDS: HEPARIN SODIUM,PORCINE (1 ML) 2,500 UNIT in SODIUM CHLORIDE 0.9% 250 ML IRRIGATION ONE (15:00)
[2024-02-29] MEDS: HEPARIN SODIUM,PORCINE 10,000 UNIT in SODIUM CHLORIDE 0.9% 1,000 ML IRRIGATION ONE (15:01)
[2024-02-29] MEDS ORDERED: ATROPINE SULFATE 0.1 MG/ML 10ML SYRINGE IV PRN (15:32)
[2024-02-29] MEDS ORDERED: MAG HYDROX/AL HYDROX/SIMETH 30 ML CUP PO PRN (15:32)
[2024-02-29] MEDS ORDERED: RX INFO: IV CONTRAST WAS GIVEN 1 EACH MISC MISCELLANE PRN (15:32)
[2024-02-29] MEDS ORDERED: ZOLPIDEM 5 MG TAB PO PRN (15:32)
--- NOTE | 2024-02-29 15:32 | P.PRCINT ---
Percutaneous Coronary Int. - Percutaneous Coronary Intervention Percutaneous Coronary Intervention: PROCEDURES PERFORMED: Left heart catheterization, bilateral coronary angiography, ultrasound guided arterial access, PCI proximal left main with a 3.5 x 12mm Xience DEBBIE, post dilated with a 4.0mm NC balloon, IVUS left main INDICATION: unstable angina with history of two-vessel CABG TIAN to LAD and SVG to ramus and recent patent TIAN to LAD, occluded SVG to ramus CONSENT:I have discussed the risks, benefits and alternative therapies for the above-mentioned procedure and for both sedation/analgesia as well as necessary blood product administration, if indicated, as they pertain to this patient. The patient has indicated understanding and acceptance of the risks and procedures discussed. PROCEDURE: After the risks, benefits and alternatives of the above mentioned procedure explained in detail with the patient, informed consent was obtained. Patient was taken to the catheterization lab and prepped and draped in usual fashion. Ultrasound guidance was used to assess for arterial access. 1% lidocaine was used to anesthetize the left femoral artery given previous unsuccessful radial secondary to calcified arteries. A 6-Upper Sorbian sheath was placed in the left femoral artery using modified Seldinger technique and ultrasound guidance. Left coronary angiography was performed with a 6-Upper Sorbian CLS 3.5 catheter and right coronary angiography was performed with a 6-Upper Sorbian FR4 catheter in various views. SVG to ramus is known to be occluded and TIAN to LAD was recently known to be widely patent. The decision was made to perform PCI of left main. Heparin was given. Using the 6Fr CLS 3.5, a 0.014 BMW was advanced in the distal LAD and an additional 0.014 BMW wire was advanced into the distal ramus. IVUS was performed which showed minimal luminal area 2.8mm2. Pre balloon angioplasty was performed with a 3.0mm balloon. A 3.5 x 12mm Xience DEBBIE was placed in the proximal to distal left main. The proximal and mid portion of the stent were post dilated with a 4.0mm balloon. Final angiograms as well as intravascular ultrasound was performed with well-expanded stent and no dissection. Preintervention there was 70% stenosis and GENE-3 flow and postintervention there is less than 10% stenosis with GENE 3 flow. The left femoral angiogram showed anatomy amenable to closure and a 6FR angioseal was placed with hemostasis achieved. The patient tolerated the procedure well. Patient was transported back to the post catheterization holding area in stable condition. Conscious Sedation: Patient was monitored under the direct supervision of myself for conscious sedation using Versed and fentanyl for a total duration of 37 minutes HEMODYNAMICS: Aorta: 136/66 SELECTIVE CORONARY ARTERIOGRAPHY: LEFT MAIN: The left main is a large caliber vessel which trifurcates into the LAD, ramus and circumflex. There is 70% left main stenosis. LEFT ANTERIOR DESCENDING CORONARY ARTERY: LAD is a large caliber vessel which wraps around to the apex. There is diffuse heavily calcified LAD with 50% pr oximal LAD, 80% mid LAD stenosis. There is competitive flow to the distal LAD with the TIAN. RAMUS: ramus is moderate caliber with mild luminal irregularities, 20-30% stenosis. LEFT CIRCUMFLEX CORONARY ARTERY: Left circumflex is a moderate caliber vessel with 100% proximal stenosis. RIGHT CORONARY ARTERY: The right coronary artery is a large caliber vessel which gives off a PDA and PLV branch and is the dominant vessel. There is patent proximal to mid stent with a more distal 30% stenosis SVG to ramus: 100% occluded proximally TIAN to LAD: Known to be widely patent FINAL IMPRESSION: 1. CAD as described above including 70% left main stenosis, 50% proximal LAD, 80% mid LAD, 20-30% ramus, 100% circumflex, 30% RCA stenosis 2. Abnormal IVUS left main, minimal luminal area 2.8mm2 3. S/p PCI proximal to mid left main with a 3.5 x 15mm Xience DEBBIE, post dilated with a 4.0 mm NC balloon PLAN: 1. Aggressive risk factor modification per most recent ACC/AHA guidelines. 2. Continue dual antiplatelets with aspirin Plavix for 12 months 3. Goal LDL < 55 given multivessel CAD
[2024-02-29 16:48] LABS: Glucose,Whole Blood 77 mg/dL (70-110)
[2024-02-29 18:08] VITALS: RESP 17
[2024-02-29] MEDS: HYDROcodone/APAP 5-325MG 1 EACH TAB PO PRN (20:01)
[2024-02-29 20:05] LABS: Glucose,Whole Blood 162 mg/dL (70-110)
[2024-03-01 05:35] LABS: Glucose,Whole Blood 300 mg/dL (70-110)
[2024-03-01 07:58] VITALS: TEMP 97.8
[2024-03-01 07:58] LABS: African American GFR (CKD) 13 (>60 ml/min/1.73 sqM); Non-African American GFR(CKD) 11 (>60 ml/min/1.73 sqM)
[2024-03-01 11:55] LABS: Glucose,Whole Blood 198 mg/dL (70-110)
--- NOTE | 2024-03-01 14:07 | P.DS ---
Providers Date of admission: 02/29/24 08:14 Expected date of discharge: 03/01/24 Attending physician: Kristen Becerra MD Consults: 02/27/24 00:09 Consult Physician Routine Consulting Provider: Shiraz Castle Consult Reason/Comments: chest pain Do you want consulting provider notified?: Yes 02/27/24 03:53 Consult Physician Urgent Consulting Provider: Simba Posey Consult Reason/Comments: HD Do you want consulting provider notified?: Yes 02/29/24 15:32 Consult Physician Routine Consulting Provider: [facility] Consult Reason/Comments: Post Interventional Patient Do you want consulting provider notified?: Already Contacted Primary care physician: Marlon Valentino Hospital Course: Discharge Diagnosis: Multivessel coronary artery disease status post proximal to mid left main stent History of CABG and recent stent Unstable angina Dyslipidemia ESRD on hemodialysis Hyponatremia Insulin-dependent diabetes Hospital Course: 73-year-old male with a PMH of CAD status post CABG in 2023 multiple stents, ESRD on hemodialysis (TThSa), chronic diastolic CHF, type II DM, COPD, hypertension who presents to the emergency room with complaints of chest discomfort. Chest x-ray in the emergency room was unremarkable. EKG revealed bifascicular block at 71 bpm, unchanged from prior EKG. Laboratory evaluation revealed hemoglobin 9.5 (at baseline), platelet count 149 (similar to baseline) sodium 133, BUN 48, creatinine 4.02, glucose 281 with troponin 0.021 with proBNP 17,400. Patient admitted for unstable angina. Was started on heparin drip init ially. Cardiology was consulted. Troponin remained negative. Heparin drip discontinued. Patient underwent cardiac cath which showed multivessel CAD, 70% left main stenosis, 50% proximal LAD, 80% mid LAD, 20 to 30% ramus, 100% circumflex, 30% RCA stenosis, he underwent PCI proximal to mid left main with DEBBIE. Patient being discharged back on aspirin, Plavix, statin, ezetimibe. He also underwent hemodialysis while inpatient. Outpatient follow-up with cardiology and PCP. Patient seen and examined at bedside. Vital signs reviewed and stable. General: Nontoxic, no distress, appears at stated age Derm: Warm, dry Head: Atraumatic, normocephalic, symmetric Eyes: EOMI, no lid lag, anicteric sclera Mouth: No lip lesion, mucus membranes moist Cardiovascular: S1S2 reg, folic murmur Lungs: CTA bilateral, no rhonchi, no rales, no accessory muscle use Abdominal: Soft, nontender to palpation, no guarding, no appreciable organomegaly Ext: No gross muscle atrophy, no edema, no contractures Neuro: CN II-XI grossly intact, no focal neuro deficits Psych: Alert, oriented, appropriate affect A total of 33 minutes of time were spent preparing this complex discharge summary. Patient was discharged on 03/01/2024 at 1357. Patient Condition at Discharge: Stable Plan - Discharge Summary New Discharge Prescriptions: Continue Ezetimibe [Zetia] 10 mg PO DAILY Ferrous Sulfate [Iron (65 MG Elemental)] 325 mg PO DAILY Insulin Aspart (For Pump) [NovoLOG (For Pump)] 0.01 unit SQ-PUMP CONTINUOUS Pramipexole [Mirapex] 0.5 mg PO BID PRN PRN Reason: Restless legs Albuterol Inhaler [Ventolin Hfa Inhaler] 2 puff INHALATION RT-Q4H PRN PRN Reason: Shortness Of Breath Glucagon Emergency Kit 1 mg IM ONCE PRN PRN Reason: Hypoglycemia Escitalopram [Lexapro] 10 mg PO DAILY Cetirizine HCl [Zyrtec] 10 mg PO DAILY Acetaminophen Tab [Tylenol] 1,000 mg PO Q6HR PRN tab PRN Reason: Fever And/ Or Pain HYDROcodone/APAP 5-325MG [Provencal 5-325] 1 tab PO Q4-6H PRN PRN Reason: Severe Breakthrough Pain Metoprolol Tartrate [Lopressor] 25 mg PO BID #180 tab Isosorbide Mononitrate ER [Imdur] 60 mg PO DAILY #30 tab Aspirin EC [Ecotrin Low Dose] 81 mg PO DAILY Tamsulosin [Flomax] 0.4 mg PO HS ALPRAZolam [Xanax] 0.5 mg PO HS PRN PRN Reason: Severe Anxiety Cholecalciferol [Vitamin D3 (25 Mcg = 1000 Iu)] 50 mcg PO DAILY Folic Acid/Vit B Complex and C [Nephro-Pooja Tablet] 0.8 mg PO DAILY Torsemide [Demadex] 40 mg PO SUMOWEFR Clopidogrel [Plavix] 75 mg PO DAILY #30 tab Pantoprazole [Protonix] 40 mg PO AC-BRKFST #30 tab Rosuvastatin [Crestor] 20 mg PO HS #90 tablet Nitroglycerin Sl Tabs [Nitrostat] 0.4 mg SUBLINGUAL Q5M PRN #25 tab PRN Reason: Chest Pain Discharge Medication List Ezetimibe [Zetia] 10 mg PO DAILY 05/19/16 [History] Ferrous Sulfate [Iron (65 MG Elemental)] 325 mg PO DAILY 05/19/16 [History] Insulin Aspart (For Pump) [NovoLOG (For Pump)] 0.01 unit SQ-PUMP CONTINUOUS 05/28/18 [History] Pramipexole [Mirapex] 0.5 mg PO BID PRN 05/02/19 [History] Albuterol Inhaler [Ventolin Hfa Inhaler] 2 puff INHALATION RT-Q4H PRN 08/10/21 [History] Aspirin EC [Ecotrin Low Dose] 81 mg PO DAILY 02/21/22 [History] Glucagon Emergency Kit 1 mg IM ONCE PRN 02/21/22 [History] Escitalopram [Lexapro] 10 mg PO DAILY 01/01/23 [History] ALPRAZolam [Xanax] 0.5 mg PO HS PRN 06/17/23 [History] Cholecalciferol [Vitamin D3 (25 Mcg = 1000 Iu)] 50 mcg PO DAILY 06/17/23 [History] Tamsulosin [Flomax] 0.4 mg PO HS 06/17/23 [History] Cetirizine HCl [Zyrtec] 10 mg PO DAILY 09/22/23 [History] Folic Acid/Vit B Complex and C [Nephro-Pooja Tablet] 0.8 mg PO DAILY 09/22/23 [History] Torsemide [Demadex] 40 mg PO SUMOWEFR 09/22/23 [History] Acetaminophen Tab [Tylenol] 1,000 mg PO Q6HR PRN tab 10/24/23 [Rx] Clopidogrel [Plavix] 75 mg PO DAILY #30 tab 10/24/23 [Rx] Pantoprazole [Protonix] 40 mg PO AC-BRKFST #30 tab 10/24/23 [Rx] HYDROcodone/APAP 5-325MG [[place] 5-325] 1 tab PO Q4-6H PRN 02/16/24 [History] Isosorbide Mononitrate ER [Imdur] 60 mg PO DAILY #30 tab 02/22/24 [Rx] Metoprolol Tartrate [Lopressor] 25 mg PO BID #180 tab 02/22/24 [Rx] Nitroglycerin Sl Tabs [Nitrostat] 0.4 mg SUBLINGUAL Q5M PRN #25 tab 02/22/24 [Rx] Rosuvastatin [Crestor] 20 mg PO HS #90 tablet 02/22/24 [Rx] Follow up Appointment(s)/Referral(s): Donnell Radford MD [STAFF PHYSICIAN] - 1 Week Marlon Valentino DO [Primary Care Provider] - 1-2 days Patient Instructions/Handouts: Coronary Artery Disease (DC) Activity/Diet/Wound Care/Special Instructions: Please see your PCP and Financial Advocate. Discharge Disposition: HOME WITH HOME HEALTH SERVICES
[2024-03-01 17:00] VITALS: BP 140/54; PULSE 55
--- NOTE | 2024-03-01 18:43 | P.PN ---
Progress Note - Text Patient is doing well post left main stenting No chest discomfort dizziness lightheadedness palpitations On examination his blood pressure is 122/57 mmHg pulse rate in the 60s afebrile Breath sounds are clear heart sounds are normal Impression multivessel coronary artery disease Status post left main stenting for recurrent chest discomfort, successful Stable the last 24 hours Suggest Continue dual antiplatelet therapy Continue cardiac medications Continue statins Follow-up with Dr. Castle in 1 week Patient may go home after dialysis transfer tech
== END 2024-03-01 15:42 | disposition home health service (06) | DRG 321 ==
LOC: EC 20:10 → 6NMEDSUR 02-27 00:09 → 1SOBS 02-27 15:59 → OBSVTOIN 02-29 08:14
PROVIDERS: ADMIT Internal Medicine; ATTEND Internal Medicine
PROC: 5A1D70Z Performance of Urinary Filtration, Intermittent, Less than 6 Hours Per Day (ICD-10-PCS; 2024-02-28)
PROC: 4A0335C Measurement of Arterial Flow, Coronary, Percutaneous Approach (ICD-10-PCS; 2024-02-29)
PROC: B2181ZZ Fluoroscopy of Left Internal Mammary Bypass Graft using Low Osmolar Contrast (ICD-10-PCS; 2024-02-29)
PROC: B41G1ZZ Fluoroscopy of Left Lower Extremity Arteries using Low Osmolar Contrast (ICD-10-PCS; 2024-02-29)
PROC: B240ZZ3 Ultrasonography of Single Coronary Artery, Intravascular (ICD-10-PCS; 2024-02-29)
PROC: 4A023N7 Measurement of Cardiac Sampling and Pressure, Left Heart, Percutaneous Approach (ICD-10-PCS; principal; 2024-02-29 09:00)
PROC: 027034Z Dilation of Coronary Artery, One Artery with Drug-eluting Intraluminal Device, Percutaneous Approach (ICD-10-PCS; 2024-02-29 09:00)
PROC: B2111ZZ Fluoroscopy of Multiple Coronary Arteries using Low Osmolar Contrast (ICD-10-PCS; 2024-02-29 09:00)
DX: T82.867A Thrombosis due to cardiac prosthetic devices, implants and grafts, initial encounter (principal); N18.6 End stage renal disease; I25.700 Atherosclerosis of coronary artery bypass graft(s), unspecified, with unstable angina pectoris; I13.2 Hypertensive heart and chronic kidney disease with heart failure and with stage 5 chronic kidney disease, or end stage renal disease; E87.1 Hypo-osmolality and hyponatremia; I45.2 Bifascicular block; E11.22 Type 2 diabetes mellitus with diabetic chronic kidney disease; Z99.2 Dependence on renal dialysis; D63.1 Anemia in chronic kidney disease; E78.5 Hyperlipidemia, unspecified; E87.8 Other disorders of electrolyte and fluid balance, not elsewhere classified; H91.90 Unspecified hearing loss, unspecified ear; I25.2 Old myocardial infarction; I44.0 Atrioventricular block, first degree; M89.8X9 Other specified disorders of bone, unspecified site; Z79.02 Long term (current) use of antithrombotics/antiplatelets; Z79.4 Long term (current) use of insulin; Z79.82 Long term (current) use of aspirin; Z79.899 Other long term (current) drug therapy; Z96.41 Presence of insulin pump (external) (internal)
CPT/HCPCS: 36415; 71046; 80048; 80053; 80061; 82565; 83690; 83735; 83880; 84484; 85025; 85027; 85610; 85730; 90935; 92943; 92979; 93005; 93458; 94760; 96365; 96366; 99285

== ENCOUNTER 2024-03-13 16:37 | Emergency (ER) | payer MEDICARE ==
[~2024-03-13 16:37] MED LIST changes: -ALPRAZolam 0.25 MG TAB PO PRN; -ALPRAZolam 0.5 MG TAB PO PRN; -NITROGLYCERIN SL TABS 0.4 MG TAB SUBLINGUAL PRN; +SODIUM CHLORIDE 0.9% 1,000 ML BAG ONE
[2024-03-13] MEDS ORDERED: IBUPROFEN 800 MG TAB ONE (16:40)
[2024-03-13] MEDS ORDERED: ACETAMINOPHEN TAB 500 MG TAB ONE (16:40)
[2024-03-13] MEDS ORDERED: ONDANSETRON 4 MG/2 ML VIAL ONE (16:40)
[2024-03-13] MEDS ORDERED: AMOXIC-POT CLAV 875-125MG 1 EACH TAB ONE (20:44)
[2024-03-13] MEDS ORDERED: cefTRIAXone IN SWFI 1,000 MG/10 ML SYRINGE IVP ONE (20:44)
[2024-03-13] MEDS ORDERED: AZITHROMYCIN 500 MG TAB ONE (20:44)
--- NOTE | 2024-04-17 14:07 | XR ---
Patient Phan Luciano ID [id number] [id number] Order # EXAMINATION TYPE: XR chest 2V DATE OF EXAM: 03/13/2024 COMPARISON: None on downtime PACS INDICATION: Fever, weak TECHNIQUE: Frontal and lateral views of the chest are obtained. FINDINGS: The heart size is somewhat prominent. The pulmonary vasculature is normal. Mild bibasilar infiltrates are present. Clinical correlation recommended for subsegmental atelectasis .. IMPRESSION: 1. Mild bibasilar infiltrates. Correlate for atelectasis. Follow-up be performed as clinically indica marisa.
== END 2024-03-13 20:55 | disposition home or self-care (01) ==
LOC: EC 16:37
CPT/HCPCS: 71046; 93005; 96374; 96375; 99285

== ENCOUNTER 2024-03-16 22:52 | Inpatient (IN) | payer MEDICARE ==
[~2024-03-16 22:52] MED LIST changes: +FUROSEMIDE 20 MG TAB ONE; +INSULIN ASPART (NovoLOG) 100 UNIT/ML VIAL SQ ONE; +PIPERACILLIN-TAZOBACTAM 3.375 GM VIAL ONE; -SODIUM CHLORIDE 0.9% 1,000 ML BAG ONE
[2024-03-16] MEDS ORDERED: PIPERACILLIN-TAZOBACTAM 3.375 GM VIAL ONE (23:59)
[2024-03-16] MEDS ORDERED: SODIUM CHLORIDE 0.9% 100 ML BAG IV ONE (23:59)
[2024-03-17] MEDS ORDERED: PIPERACILLIN-TAZOBACTAM 3.375 GM VIAL ONE (01:03)
[2024-03-17] MEDS ORDERED: INSULIN ASPART (NovoLOG) 100 UNIT/ML VIAL SQ ONE (06:21)
--- NOTE | 2024-04-17 13:18 | XR ---
Patient Phan Luciano ID [id number] DOB1950 [id number] Order # EXAMINATION TYPE: XR chest 2V DATE OF EXAM: 03/16/2024 COMPARISON: 03/13/2024 INDICATION: Fever, pneumonia TECHNIQUE: Frontal and lateral views of the chest are obtained. FINDINGS: The heart size is mildly prominent. The pulmonary vasculature is normal. The lungs are clear. No suspicious focal consolidation or infiltrate is evident. IMPRESSION: 1. No acute pulmonary process. 2. Mild cardiomegaly
--- NOTE | 2024-04-17 15:42 | XR ---
Patient Phan Luciano ID [id number] DOB1950 [id number] Order # EXAMINATION TYPE: XR chest 2V DATE OF EXAM: 03/17/2024 COMPARISON: No comparison available on downtime PACS. INDICATION: Pneumonia TECHNIQUE: Frontal and lateral views of the chest are obtained. FINDINGS: The heart size is normal. The pulmonary vasculature is normal. The lungs are clear. Sternotomy wires are present from prior CABG. IMPRESSION: 1. No acute pulmonary process.
--- NOTE | 2024-04-26 14:42 | CONS ---
CONSULTATION REASON FOR CONSULTATION: Pneumonia, failing outpatient therapy. HISTORY OF PRESENT ILLNESS: The patient is a 73-year-old male with a past medical history significant for end-stage renal disease, on dialysis through the left arm AV fistula. INTERVAL HISTORY: The patient has been diagnosed with pneumonia in the outpatient setting, has been due with oral antibiotic. The patient is now presenting to the hospital with increasing shortness of breath and cough. The patient's cough is moderate; however, does not bring up any sputum. Denies any pleuritic chest pain. No nausea, no vomiting. No abdominal pain or diarrhea. The patient has been diagnosed with pneumonia, started on Zosyn. Infectious Disease was consulted for further management of antibiotic therapy. REVIEW OF SYSTEMS: Positive points have been mentioned in HPI. Rest of systems negative. PAST MEDICAL HISTORY: Including end-stage renal disease. The rest of the past medical history reviewed. PAST SURGICAL HISTORY: Left arm AV fistula. SOCIAL HISTORY: Reviewed. FAMILY HISTORY: Reviewed. MEDICATIONS: Has been reviewed. Currently on Zosyn 3.375 g q.12 hours. ALLERGIES: No known drug allergies. PHYSICAL EXAMINATION: VITAL SIGNS: Blood pressure 122/41, pulse of 59, temperature 98.9, he is 94% on room air. GENERAL DESCRIPTION: This is an elderly male lying in bed, in no distress. No tachypnea or accessory muscle of respiration use. HEENT: No pallor. No scleral icterus. Oral mucosa is dry. NECK: Trachea is central. No thyromegaly. LUNGS: Unlabored breathing, decreased breath sounds in the bases. No wheeze. HEART: S1, S2. Regular rate and rhythm. ABDOMEN: Soft. No tenderness. No guarding or rigidity. EXTREMITIES: No edema in the feet. SKIN: No rash or mass palpable. NEUROLOGICAL: The patient is awake, alert, oriented x3. Mood and affect normal. LABORATORY DATA: Labs and chest x-ray report currently pending. DIAGNOSTIC IMPRESSION AND PLAN: 1. The patient presented to the hospital with increasing shortness of breath, cough apparently diagnosed in the outpatient setting of pneumonia, failing outpatient antibiotic therapy with question of possible gram-negative pneumonia. 2. We will try to obtain a sputum for Gram stain culture. Check a procalcitonin and urine for Legionella antigen. 3. Continue with Zosyn 3.375 g while waiting for the workup to be completed. 4. We will follow on clinical condition and culture to further adjust medication if needed. Thank you for this consultation. We will follow this patient along with you. MMODL / IJN: [id number] /
--- NOTE | 2024-04-26 14:42 | PN ---
PROGRESS NOTE DATE OF SERVICE: 03/17/2024 LOCATION: [facility]. REASON FOR FOLLOWUP: Pneumonia. INTERVAL HISTORY: The patient is afebrile. He is currently breathing comfortably on room air. The patient denies having any chest pain. No shortness of breath. He continues to have a cough, but not bringing any sputum. No vomiting or diarrhea. PHYSICAL EXAMINATION: VITAL SIGNS: Blood pressure 119/71, pulse of 65, temperature 98.1. GENERAL DESCRIPTION: This is an elderly male up in the bed, in no distress. RESPIRATORY SYSTEM: Unlabored breathing, decreased breath sounds in the bases. No wheeze. HEART: S1 and S2. Regular rate and rhythm. ABDOMEN: Soft. No tenderness. EXTREMITIES: No edema in the feet. LABORATORY DATA: Cultures currently pending. DIAGNOSTIC IMPRESSION AND PLAN: The patient presented to hospital with increasing shortness of breath and cough, failing outpatient oral antibiotic therapy for pneumonia. The patient currently covered with Zosyn. Continue awaiting for the culture to finalize and monitor clinical course closely. MMODL / IJN: [id number] /
== END 2024-03-17 20:16 | disposition home or self-care (01) | DRG 193 ==
LOC: 6NMEDSUR 22:52
PROVIDERS: ADMIT Internal Medicine; ATTEND Internal Medicine
PROC: 5A1D70Z Performance of Urinary Filtration, Intermittent, Less than 6 Hours Per Day (ICD-10-PCS; principal; 2024-03-17)
DX: J18.9 Pneumonia, unspecified organism (principal); N18.6 End stage renal disease; I13.0 Hypertensive heart and chronic kidney disease with heart failure and stage 1 through stage 4 chronic kidney disease, or unspecified chronic kidney disease; J44.0 Chronic obstructive pulmonary disease with (acute) lower respiratory infection; Z96.41 Presence of insulin pump (external) (internal); E83.89 Other disorders of mineral metabolism; Z99.2 Dependence on renal dialysis; Z91.158 Patient's noncompliance with renal dialysis for other reason; E11.22 Type 2 diabetes mellitus with diabetic chronic kidney disease; E11.40 Type 2 diabetes mellitus with diabetic neuropathy, unspecified; I50.9 Heart failure, unspecified; I25.10 Atherosclerotic heart disease of native coronary artery without angina pectoris; Z95.1 Presence of aortocoronary bypass graft; Z95.5 Presence of coronary angioplasty implant and graft; Z79.4 Long term (current) use of insulin
CPT/HCPCS: 71046; 86706; 87040; 87340; 87449; 90935; 99285

== ENCOUNTER 2024-06-07 05:20 | Inpatient (IN) | payer MEDICARE ==
[2024-06-07 05:49] LABS: Basophils % (A) 0 %; Eosinophils % (A) 0 %; HCT 35.8 % (39.0-53.0); HGB 11.8 gm/dL (13.0-17.5); Lymphocytes # (A) 0.6 k/uL (1.0-4.8); Lymphocytes % (A) 12 %; MCHC 32.9 g/dL (31.0-37.0); MCV 97.4 fL (80.0-100.0); Mean Platelet Volume 7.9; Monocytes # (A) 0.2 k/uL (0-1.0); Monocytes % (A) 5 %; Neutrophils % (A) 81 %; Platelet Count 169 k/uL (150-450); RBC 3.68 m/uL (4.30-5.90); RDW 13.4 % (11.5-15.5)
[2024-06-07 05:57] LABS: Partial Thromboplastin Time 27.1 sec (22.0-30.0); Prothrombin Time 11.2 sec (10.0-12.5)
[2024-06-07 06:00] LABS: ALT 23 U/L (4-49); AST 30 U/L (17-59); African American GFR (CKD) 12 (>60 ml/min/1.73 sqM); Albumin 4.3 g/dL (3.5-5.0); Alkaline Phosphatase 101 U/L (38-126); Anion Gap 13 mmol/L; Blood Urea Nitrogen 50 mg/dL (9-20); Calcium 8.4 mg/dL (8.4-10.2); Carbon Dioxide 25 mmol/L (22-30); Chloride 95 mmol/L (98-107); Glucose 423 mg/dL (74-99); Magnesium 2.1 mg/dL (1.6-2.3); Non-African American GFR(CKD) 11 (>60 ml/min/1.73 sqM); Potassium 4.4 mmol/L (3.5-5.1); Sodium 133 mmol/L (137-145); Total Bilirubin 0.6 mg/dL (0.2-1.3); Total Protein 7.7 g/dL (6.3-8.2)
[2024-06-07 06:08] LABS: NT-Pro-B-Type Natriuretic Pept 21500 pg/mL
--- NOTE | 2024-06-07 06:26 | ED ---
Chest Pain HPI - General Chief Complaint: Chest Pain Stated Complaint: chest pain Time Seen by Provider: 06/07/24 06:04 Source: patient, EMS, RN notes reviewed Mode of arrival: EMS - History of Present Illness Initial Comments: 73 year old male presented to the emergency department with chief complaint of chest pain. He states that he woke up early this morning with sharp pain in his epigastric region, radiating up his sternum to his trachea. He states that he took sublingual nitro x2 which did relieve his pain. He has a past medical history including CAD, TX, 1st degree AVB, ESRD with TTS dialysis. In September, he had a CABGx2 with Dr. Freeman, after which he was seen in the ED for chest pain twice, receiving stents on both occasions. Per , he recently lost his mother and has been eating and drinking more than usual and has gained 15 pounds but is due for dialysis today. He endorses chest pain, shortness of breath, and productive cough but denies palpitations, leg pain/swelling, and syncope. - Related Data Home Medications Medication Instructions Recorded Confirmed Ezetimibe [Zetia] 10 mg PO DAILY 05/19/16 02/27/24 Ferrous Sulfate [Iron (65 MG 325 mg PO DAILY 05/19/16 02/27/24 Elemental)] Insulin Aspart (For Pump) [NovoLOG 0.01 unit SQ-PUMP CONTINUOUS 05/28/18 02/27/24 (For Pump)] Pramipexole [Mirapex] 0.5 mg PO BID PRN 05/02/19 02/27/24 Albuterol Inhaler [Ventolin Hfa 2 puff INHALATION RT-Q4H PRN 08/10/21 02/27/24 Inhaler] Aspirin EC [Ecotrin Low Dose] 81 mg PO DAILY 02/21/22 02/27/24 Glucagon Emergency Kit 1 mg IM ONCE PRN 02/21/22 02/27/24 Escitalopram [Lexapro] 10 mg PO DAILY 01/01/23 02/27/24 ALPRAZolam [Xanax] 0.5 mg PO HS PRN 06/17/23 02/27/24 Cholecalciferol [Vitamin D3 (25 50 mcg PO DAILY 06/17/23 02/27/24 Mcg = 1000 Iu)] Tamsulosin [Flomax] 0.4 mg PO HS 06/17/23 02/27/24 Cetirizine HCl [Zyrtec] 10 mg PO DAILY 09/22/23 02/27/24 Folic Acid/Vit B Complex and C 0.8 mg PO DAILY 09/22/23 02/27/24 [Nephro-Pooja Tablet] Torsemide [Demadex] 40 mg PO SUMOWEFR 09/22/23 02/27/24 HYDROcodone/APAP 5-325MG [[place] 1 tab PO Q4-6H PRN 02/16/24 02/27/24 5-325] Previous Rx's Medication Instructions Recorded Acetaminophen Tab [Tylenol] 1,000 mg PO Q6HR PRN tab 10/24/23 Clopidogrel [Plavix] 75 mg PO DAILY #30 tab 10/24/23 Pantoprazole [Protonix] 40 mg PO AC-BRKFST #30 tab 10/24/23 Isosorbide Mononitrate ER [Imdur] 60 mg PO DAILY #30 tab 02/22/24 Metoprolol Tartrate [Lopressor] 25 mg PO BID #180 tab 02/22/24 Nitroglycerin Sl Tabs [Nitrostat] 0.4 mg SUBLINGUAL Q5M PRN #25 tab 02/22/24 Rosuvastatin [Crestor] 20 mg PO HS #90 tablet 02/22/24 Allergies Allergy/AdvReac Type Severity Reaction Status Date / Time zolpidem [From Ambien] Allergy Hallucinati Verified 02/27/24 08:25 ons atorvastatin [From Lipitor] AdvReac jt and Verified 02/27/24 08:25 muscle pain baclofen AdvReac caused a Verified 02/27/24 08:25 fall Review of Systems ROS Statement: Those systems with pertinent positive or pertinent negative responses have been documented in the HPI. ROS Other: All systems not noted in ROS Statement are negative. Past Medical History Past Medical History: Blood Disorder, Coronary Artery Disease (CAD), Chest Pain / Angina, Heart Failure, COPD, Diabetes Mellitus, Dialysis, Hearing Disorder / Deafness, Hyperlipidemia, Hypertension, Myocardial Infarction (TX), Osteoarthritis (OA), Renal Disease, Sleep Apnea/CPAP/BIPAP Additional Past Medical History / Comment(s): has insulin pump and contiunuous blood glucose monitor,fell at home on Tuesday10-10-23"got dizzy"-no injury,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. Chronic renal failure, dialysis [facility] normally. Patient has insulin pump. Has CPAP, occasionally uses. Neuropathy in feet and hands. Poor hearing. Last Myocardial Infarction Date:: History of Any Multi-Drug Resistant Organisms: None Reported Past Surgical History: Cholecystectomy, Coronary Bypass/CABG, Heart Catheterization, Heart Catheterization With Stent, Orthopedic Surgery Additional Past Surgical History / Comment(s): Shoulder surgery-no hardware, hemorrhoidectomy, eye surgery,4 cardiac stents,AV fistula left forearm, double vessle CABG 10/17/23 Past Anesthesia/Blood Transfusion Reactions: No Reported Reaction Additional Past Anesthesia/Blood Transfusion Reaction / Comment(s): Never had a blood transfusion. Date of Last Stent Placement:: 2004,2014,2023 Past Psychological History: Anxiety Smoking Status: Former smoker Past Alcohol Use History: None Reported Past Drug Use History: None Reported - Past Family History Father Family Medical History: Cancer Additional Family Medical History / Comment(s): Bladder cancer. Mother Family Medical History: Cancer, Diabetes Mellitus Additional Family Medical History / Comment(s): Pancreatic cancer. General Exam General appearance: alert, in no apparent distress Head exam: Present: atraumatic, normocephalic, normal inspection Eye exam: Present: normal appearance, PERRL, EOMI. Absent: scleral icterus, conjunctival injection, periorbital swelling ENT exam: Present: normal exam, mucous membranes moist Neck exam: Present: normal inspection. Absent: tenderness, meningismus, lymphadenopathy Respiratory exam: Present: decreased breath sounds, other. Absent: respiratory distress, wheezes, rales, rhonchi, stridor Cardiovascular Exam: Present: regular rate, normal heart sounds, rubs (Soft, distant rub), other. Absent: systolic murmur, diastolic murmur, gallop, clicks GI/Abdominal exam: Present: soft, normal bowel sounds. Absent: distended, tenderness, guarding, rebound, rigid Extremities exam: Present: normal inspection, full ROM, normal capillary refill. Absent: tenderness, pedal edema, joint swelling, calf tenderness Back exam: Present: normal inspection Neurological exam: Present: alert, oriented X3, CN II-XII intact Psychiatric exam: Present: normal affect, normal mood Skin exam: Present: warm, dry, intact, normal color. Absent: rash Course Vital Signs 06/07/24 06/07/24 05:24 06:27 Temperature 98.4 F Pulse Rate 71 65 Respiratory 18 16 Rate Blood Pressure 144/62 129/56 O2 Sat by Pulse 100 100 Oximetry Chest Pain MDM - MDM Was pt. sent in by a medical professional or institution (, [place], [employer], urgent care, hospital, or intermediate...) When possible be specific @ -No Did you speak to anyone other than the patient for history (EMS, parent, family, police, friend...)? What history was obtained from this source @ -No Did you review nursing and triage notes (agree or disagree)? Why? @ -I reviewed and agree with nursing and triage notes Were old charts reviewed (outside hosp., previous admission, EMS record, old EKG, old radiological studies, urgent care reports/EKG's, intermediate records)? Report findings @ -Reviewed prior CABG record, heart cath in January by Dr. Castle Differential Diagnosis (chest pain, altered mental status, abdominal pain women, abdominal pain men, vaginal bleeding, weakness, fever, dyspnea, syncope, headache, dizziness, GI bleed, back pain, seizure, CVA, palpatations, mental health, musculoskeletal)? @ -Differential Chest Pain: Stable Angina, Unstable Angina, STEMI, NSTEMI Aortic Dissection, Pneumothorax, Musculoskeletal, Esophageal Spasm GERD, Cholecystitis, Pancreatitis, Zoster, this is not meant to be an all-inclusive list. EKG interpreted by me (3pts min.). @ -As above X-rays interpreted by me (1pt min.). @ -[Chest shows no acute cardiopulmonary process CT interpreted by me (1pt min.). @ -None done U/S interpreted by me (1pt. min.). @ -None done What testing was considered but not performed or refused? (CT, X-rays, U/S, labs)? Why? @ -None What meds were considered but not given or refused? Why? @ -None Did you discuss the management of the patient with other professionals (professionals i.e. , [place], [employer], lab, RT, psych nurse, social security assessor, product technology scientist, teacher, radiation safety officer, adult protective caseworker)? Give summary @ -Sound physician for admission for cardiac rule out Was smoking cessation discussed for >3mins.? @ -No Was critical care preformed (if so, how long)? @ -No Were there social determinants of health that impacted care today? How? (Homelessness, low income, unemployed, alcoholism, drug addiction, transportation, low edu. Level, literacy, decrease access to med. care, skilled nursing, rehab)? @ -No Was there de-escalation of care discussed even if they declined (Discuss DNR or withdrawal of care, Hospice)? DNR status @ -No What co-morbidities impacted this encounter? (DM, HTN, Smoking, COPD, CAD, Cancer, CVA, ARF, Chemo, Hep., AIDS, mental health diagnosis, sleep apnea, morbid obesity)? @ -CAD, dialysis, diabetes Was patient admitted / discharged? Hospital course, mention meds given and route, prescriptions, significant lab abnormalities, going to OR and other pertinent info. @ -Noted first troponin is negative. Patient did present for chest pain with significant cardiac history, CAD history. Patient with cardiac rule out including repeat troponin, cardiology evaluation, dialysis and nephrology evaluation. Undiagnosed new problem with uncertain prognosis? @ -No Drug Therapy requiring intensive monitoring for toxicity (Heparin, Nitro, Insulin, Cardizem)? @ -No Were any procedures done? @ -No Diagnosis/symptom? @ -Chest pain, missed dialysis Acute, or Chronic, or Acute on Chronic? @ -Acute Uncomplicated (without systemic symptoms) or Complicated (systemic symptoms)? @ -Complicated Side effects of treatment? @ -No Exacerbation, Progression, or Severe Exacerbation? @ -No Poses a threat to life or bodily function? How? (Chest pain, [place], [place], pneumonia, PE, COPD, DKA, ARF, appy, cholecystitis, CVA, Diverticulitis, Homicidal, Suicidal, threat to staff... and all critical care pts) @ -Yes ACS causing cardiac arrest Disposition Clinical Impression: Chest pain Disposition: ADMITTED IP TO THIS HOSP Condition: Fair Referrals: Marlon Valentino DO [Primary Care Provider] - 1-2 days Time of Disposition: 07:08
--- NOTE | 2024-06-07 06:36 | XR ---
EXAM: XR Chest, 2 Views CLINICAL HISTORY: Reason: Chest Pain TECHNIQUE: Frontal and lateral views of the chest. COMPARISON: 03/17/24 FINDINGS: Lungs: There is no evidence of airspace consolidation. No pulmonary edema. Pleural space: No pneumothorax. No significant pleural effusions. Heart: Cardiac silhouette is top normal. Mediastinum: No mediastinal widening or shift. Bones/joints: No evidence of acute osseous abnormality. Sternotomy wires again seen. IMPRESSION: There is no evidence of acute cardiopulmonary abnormality.
[2024-06-07] MEDS ORDERED: NITROGLYCERIN SL TABS 0.4 MG TAB SUBLINGUAL PRN ×3 (07:06→09:31)
[2024-06-07] MEDS ORDERED: ALPRAZolam 0.5 MG TAB PO PRN (08:15)
[2024-06-07] MEDS ORDERED: PRAMIPEXOLE 0.5 MG TAB PO PRN (08:15)
[2024-06-07] MEDS ORDERED: ALBUTEROL NEBULIZED 2.5 MG/3 ML INHALATION PRN (08:15)
[2024-06-07] MEDS: CLOPIDOGREL 75 MG TAB PO SCH (09:09)
[2024-06-07] MEDS: CHOLECALCIFEROL 25 MCG (1000 IU) TABLET PO SCH (09:09)
[2024-06-07] MEDS: ISOSORBIDE MONONITRATE ER 60 MG TAB.ER.24H PO SCH (09:09)
[2024-06-07] MEDS: FERROUS SULFATE 325 MG TAB PO SCH (09:09)
[2024-06-07] MEDS: ESCITALOPRAM 10 MG TAB PO SCH (09:09)
[2024-06-07] MEDS: EZETIMIBE 10 MG TAB PO SCH (09:10)
[2024-06-07] MEDS: LORATADINE 10 MG TAB PO SCH (09:10)
[2024-06-07] MEDS: HEPARIN SODIUM,PORCINE 5,000 UNIT/ML 1 ML VIAL SQ SCH (09:10)
[2024-06-07] MEDS: METOPROLOL TARTRATE 25 MG TAB PO SCH (09:10)
[2024-06-07] MEDS: HEPARIN SOD,PORK IN 0.45% NACL 25,000 UNIT in 0.45% NACL 1 250ML.BAG IV SCH (09:20)
[2024-06-07] MEDS: HEPARIN SODIUM 1,000 UN/ML (10ML VL) IV ONE (09:20)
[2024-06-07] MEDS: FOLIC ACID-VIT B COMPLEX-VIT C 1 CAP PO SCH (10:10)
[2024-06-07 10:11] LABS: Glucose,Whole Blood 229 mg/dL (70-110)
--- NOTE | 2024-06-07 10:18 | P.NPCON ---
History of Present Illness - Reason for Consult end stage renal disease - History of Present Illness Reason for consultation: End-stage renal disease History of present illness: Patient is a 73-year-old male seen in renal consultation for end-stage renal disease. Patient was seen and examined in the emergency room. He is maintained on hemodialysis on Tuesday schedule. Patient came to the hospital after he developed chest pain last night. Patient states the pain was quite sharp and he took a nitro which helped relieve the pain. He denies radiation to his arm or jaw. Patient does have history of CABG which was done in September 2023 and subsequent cardiac stents that were placed in January 2024. He is currently on heparin drip. Cardiac catheterization is scheduled for tomorrow. No vomiting or diarrhea. No fever or chills. He is due for dialysis today. Vital signs are stable. General: No acute distress. HEENT: Head exam is unremarkable. LUNGS: No audible rhonchi or wheezes. HEART: Rate and Rhythm are regular. ABDOMEN: Nontender. EXTREMITITES: No edema. Past Medical History Past Medical History: Blood Disorder, Coronary Artery Disease (CAD), Chest Pain / Angina, Heart Failure, COPD, Diabetes Mellitus, Dialysis, Hearing Disorder / Deafness, Hyperlipidemia, Hypertension, Myocardial Infarction ([place]), Osteoarthritis (OA), Renal Disease, Sleep Apnea/CPAP/BIPAP Additional Past Medical History / Comment(s): has insulin pump and contiunuous blood glucose monitor,fell at home on Tuesday10-10-23"got dizzy"-no injury,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. Chronic renal failure, dialysis [facility] normally. Patient has insulin pump. Has CPAP, occasionally uses. Neuropathy in feet and hands. Poor hearing. Last Myocardial Infarction Date:: History of Any Multi-Drug Resistant Organisms: None Reported Past Surgical History: Cholecystectomy, Coronary Bypass/CABG, Heart Catheterization, Heart Catheterization With Stent, Orthopedic Surgery Additional Past Surgical History / Comment(s): Shoulder surgery-no hardware, hemorrhoidectomy, eye surgery,4 cardiac stents,AV fistula left forearm, double vessle CABG 10/17/23 Past Anesthesia/Blood Transfusion Reactions: No Reported Reaction Additional Past Anesthesia/Blood Transfusion Reaction / Comment(s): Never had a blood transfusion. Date of Last Stent Placement:: 2004,2014,2023 Past Psychological History: Anxiety Smoking Status: Former smoker Past Alcohol Use History: None Reported Past Drug Use History: None Reported - Past Family History Father Family Medical History: Cancer Additional Family Medical History / Comment(s): Bladder cancer. Mother Family Medical History: Cancer, Diabetes Mellitus Additional Family Medical History / Comment(s): Pancreatic cancer. Medications and Allergies Home Medications Medication Instructions Recorded Confirmed Type Ezetimibe [Zetia] 10 mg PO DAILY 05/19/16 06/07/24 History Ferrous Sulfate [Iron (65 MG 325 mg PO DAILY 05/19/16 06/07/24 History Elemental)] Insulin Aspart (For Pump) [NovoLOG 0.01 unit SQ-PUMP CONTINUOUS 05/28/18 06/07/24 History (For Pump)] Pramipexole [Mirapex] 0.5 mg PO BID PRN 05/02/19 06/07/24 History Albuterol Inhaler [Ventolin Hfa 2 puff INHALATION RT-Q4H PRN 08/10/21 06/07/24 History Inhaler] Aspirin EC [Ecotrin Low Dose] 81 mg PO DAILY 02/21/22 06/07/24 History Glucagon Emergency Kit 1 mg IM ONCE PRN 02/21/22 06/07/24 History Escitalopram [Lexapro] 10 mg PO DAILY 01/01/23 06/07/24 History ALPRAZolam [Xanax] 0.5 mg PO HS PRN 06/17/23 06/07/24 History Cholecalciferol [Vitamin D3 (25 50 mcg PO DAILY 06/17/23 06/07/24 History Mcg = 1000 Iu)] Tamsulosin [Flomax] 0.4 mg PO HS 06/17/23 06/07/24 History Cetirizine HCl [Zyrtec] 10 mg PO DAILY 09/22/23 06/07/24 History Folic Acid/Vit B Complex and C 0.8 mg PO DAILY 09/22/23 06/07/24 History [Nephro-Pooja Tablet] Torsemide [Demadex] 40 mg PO SUMOWEFR 09/22/23 06/07/24 History Clopidogrel [Plavix] 75 mg PO DAILY #30 tab 10/24/23 06/07/24 Rx Nitroglycerin Sl Tabs [Nitrostat] 0.4 mg SUBLINGUAL Q5M PRN #25 tab 02/22/24 06/07/24 Rx Isosorbide Mononitrate ER [Imdur] 30 mg PO DAILY 06/07/24 06/07/24 History Metoprolol Tartrate [Lopressor] 12.5 mg PO HS 06/07/24 06/07/24 History Metoprolol Tartrate [Lopressor] 25 mg PO DAILY 06/07/24 06/07/24 History Ranolazine [Ranexa] 500 mg PO BID 06/07/24 06/07/24 History Rosuvastatin [Crestor] 10 mg PO HS 06/07/24 06/07/24 History Topiramate [Topamax] 25 mg PO BID 06/07/24 06/07/24 History methylPREDNISolone [Medrol Dose See Taper PO DIRECTED 06/07/24 06/07/24 Hist ory Pack] Allergies Allergy/AdvReac Type Severity Reaction Status Date / Time zolpidem [From Ambien] Allergy Hallucinati Verified 02/27/24 08:25 ons atorvastatin [From Lipitor] AdvReac jt and Verified 02/27/24 08:25 muscle pain baclofen AdvReac caused a Verified 02/27/24 08:25 fall Physical Exam Vitals: Vital Signs Temp Pulse Resp BP Pulse Ox 06/07/24 09:21 67 18 155/66 100 06/07/24 06:27 65 16 129/56 100 06/07/24 05:24 98.4 F 71 18 144/62 100 Intake and Output 06/06/24 06/07/24 06/07/24 22:59 06:59 14:59 Other: Weight 96.162 kg Results - Lab Results Most recent lab results Calcium 8.4 mg/dL (8.4-10.2) 06/07/24 05:31 Magnesium 2.1 mg/dL (1.6-2.3) 06/07/24 05:31 06/07/24 05:31 06/07/24 05:31 Assessment and Plan Plan: Assessment: 1. End-stage renal disease maintained on hemodialysis on Tuesday schedule. 2. Hypertension with chronic kidney disease. 3. Chest pain. Concern for acute coronary syndrome. Cardiac catheterization tomorrow. 4. Coronary artery disease status post CABG and cardiac stents placement. 5. Diabetes mellitus. Plan: Hemodialysis today. Check phosphorus level. Maintain Demadex. Thank you for the consultation. I will continue to follow the patient with you during his hospital stay.
--- NOTE | 2024-06-07 11:55 | P.HPIM ---
History of Present Illness H&P Date: 06/07/24 History of Presenting Illness: Patient is a very pleasant 73-year-old male with a past medical history of CAD status post CABG x2 in September 2023, multiple stents, ESRD on hemodialysis ([facility]), chronic diastolic CHF, insulin-dependent diabetes mellitus with insulin pump, COPD, hypertension, hyperlipidemia, and obstructive sleep apnea CPAP dependent nightly. He presented to the emergency department with a chief complaint of chest pain. Patient reports awakening with sharp epigastric/chest pain radiating up into midsternal chest and neck accompanied by some shortness of breath. He reports he got up immediately took 2 sublingual nitroglycerin which reported to relieve his pain and his called EMS for transfer to the hospital for further evaluation. Patient denies any other complaints at this time, reports he went to bed feeling his normal baseline and was scheduled for his hemodialysis today. He denies any recent fevers or exposure to known ill contacts, headache, lightheadedness, dizziness, palpitations, cough or congestion, or noticing increased swelling in his extremities. Patient's reports patient has had recent weight gain of 15 pounds which he attributed to increased oral intake secondary to life stressors and recent in family. Per ED documentation patient received a total of 4 sublingual nitroglycerin tablets, 324 mg of aspirin, Zofran, and fentanyl prior to arrival at our facility. Patient reports chest pain initially were improving after taking his 2 doses of sublingual nitro at home but returned after EMS arrival and was given another 2 doses of nitro along with fentanyl and states chest pain has not r eturned as of this time. Upon arrival to our facility, patient underwent evaluation in the emergency department. Vital signs upon arrival show blood pressure 144/62, heart rate 71, respiratory rate 18, temp 98.4 F, and SpO2 of 100% on 2 L. EKG was completed showing normal sinus rhythm at 69 bpm with a first-degree AV block with AZ interval of 290 ms and a right bundle branch block with the exception of rate and worsening first-degree AV block, EKG appears to be unchanged when compared to recent EKG completed 03/13/2024 upon personal review, interpretation, and comparison. Chest x-ray completed is negative for acute cardiopulmonary process. Labs completed and reviewed. CBC showing normocytic anemia with hemoglobin of 11.8. Coagulation profile normal findings. BMP showing sodium 133, chloride 95, BUN of 50, creatinine of 4.92, GFR of 11 patient is due for dialysis today. Magnesium 2.1. Calcium 8.4. Liver profile unremarkable. Troponin negative at less than 0.012 and proBNP 21,500. Patient admitted under our services with consultation to cardiology and nephrology for needed dialysis. Echocardiogram completed 02/17/2024 was reviewed showing a preserved EF of 50 to 55% and most recent stent was placed on 02/29/2024 to left main. Review of systems: Pertinent positives and negatives as discussed in HPI, a complete review of syst ems was performed and all other systems are negative. Physical exam: Vital signs reviewed and stable. General: Nontoxic, no distress and appears stated age. Derm: Skin warm and dry, normal coloration for ethnicity. Head: Atraumatic, normocephalic and symmetric. Eyes: EOM's intact, no lid lag, and anicteric sclera Mouth: no lip lesions, mucus membranes moist Cardiovascular: regular rate and rhythm with normal S1S2, systolic murmur, positive posterior tibial pulses bilaterally, and cap refill < 2 seconds. AV fistula left upper extremity with bruit and thrill intact. Lungs: Respirations even, regular, and unlabored on room air. Lungs CTA bilaterally, no rhonchi, no rales, no wheezing, and no accessory muscle usage. Abdominal: soft, nontender to palpation, no guarding, no appreciable organomegaly Ext: ROM intact. No gross muscle atrophy, 1+ BLE edema, no contractures Neuro: Speech clear, face symmetrical and CN II-XII grossly intact with no noted focal neuro deficits Psych: Alert and oriented to person, place, time, and situation. Appropriate and pleasant affect. Assessment and Plan of Care: Unstable angina Mild diastolic heart failure exacerbation CAD with extensive cardiac history including CABG x 2 followed by multiple stents -Cardiology consulted, appreciate recommendations -Telemetry monitoring -Continue low intensity heparin infusion with close monitoring of PTT every 6 hours for goal therapeutic range of 45 to 79 seconds. -Trend troponins -Cardiac diet, NPO at midnight -Continue cardiac medication regimen with aspirin 81 mg daily, Plavix 75 mg daily, Zetia 10 mg daily, isosorbide mononitrate 60 mg daily, metoprolol 25 mg twice daily, rosuvastatin 20 mg nightly, and torsemide 40 mg daily on nondialysis days. -Echocardiogram completed 02/17/2024 was reviewed showing a preserved EF of 50 to 55% and most recent stent was placed on 02/29/2024 to left main. ESRD Hypochloremic hyponatremia, secondary to volume overload Anemia of chronic disease -Nephrology consulted and discussed plan of care with Dr. Posey. Patient to undergo hemodialysis as scheduled. Insulin-dependent diabetes mellitus with hyperglycemia -Patient placed on glycemic protocol with [id number] glucose checks 4 times daily (with meals and at bedtime) -Order placed for patient to continue use of home insulin pump. Obstructive sleep apnea Continue use of CPAP nightly and while napping. COPD, not in acute exacerbation Continue nebulizer treatments every 4 hours as needed for wheezing/shortness of breath. Patient to be provided with oxygen as needed to maintain SpO2 equal to or gre ater than 92%. Hypertension Monitor vital signs and continue daily medication regimen with isosorbide mononitrate 60 mg daily, metoprolol 25 mg twice daily, and torsemide 40 mg daily on nondialysis days. Hyperlipidemia Continue daily medication regimen with rosuvastatin 20 mg nightly and Zetia 10 mg daily. BPH Continue Flomax 0.4 mg nightly. Data and imaging reviewed: As stated above in HPI The patient is admitted with an anticipated greater than 2 midnight stay for evaluation of unstable angina CODE STATUS: Full code DVT prophylaxis: Heparin Anticipated discharge date: Pending clinical course Anticipated discharge place: Home Patient was seen independently by Nurse Practitioner. This document was prepared using [employer] dictation software. Please allow for errors in jump roll operator while rare they do occur. Manuel Ivey NP rendered care for this patient independently, reviewed the findings and plan as documented in the note above and agree with plan. I did not physically speak with or examine the patient on this date. Past Medical History Past Medical History: Blood Disorder, Coronary Artery Disease (CAD), Chest Pain / Angina, Heart Failure, COPD, Diabetes Mellitus, Dialysis, Hearing Disorder / Deafness, Hyperlipidemia, Hypertension, Myocardial Infarction ([place]), Osteoarthritis (OA), Renal Disease, Sleep Apnea/CPAP/BIPAP Additional Past Medical History / Comment(s): has insulin pump and contiunuous blood glucose monitor,fell at home on Tuesday10-10-23"got dizzy"-no injury,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. Chronic renal failure, dialysis [facility] normally. Patient has insulin pump. Has CPAP, occasionally uses. Neuropathy in feet and hands. Poor hearing. Last Myocardial Infarction Date:: History of Any Multi-Drug Resistant Organisms: None Reported Past Surgical History: Cholecystectomy, Coronary Bypass/CABG, Heart Catheterization, Heart Catheterization With Stent, Orthopedic Surgery Additional Past Surgical History / Comment(s): Shoulder surgery-no hardware, hemorrhoidectomy, eye surgery,4 cardiac stents,AV fistula left forearm, double vessle CABG 10/17/23 Past Anesthesia/Blood Transfusion Reactions: No Reported Reaction Additional Past Anesthesia/Blood Transfusion Reaction / Comment(s): Never had a blood transfusion. Date of Last Stent Placement:: 2004,2014,2023 Past Psychological History: Anxiety Smoking Status: Former smoker Past Alcohol Use History: None Reported Past Drug Use History: None Reported - Past Family History Father Family Medical History: Cancer Additional Family Medical History / Comment(s): Bladder cancer. Mother Family Medical History: Cancer, Diabetes Mellitus Additional Family Medical History / Comment(s): Pancreatic cancer. Medications and Allergies Home Medications Medication Instructions Recorded Confirmed Type Ezetimibe [Zetia] 10 mg PO DAILY 05/19/16 06/07/24 History Ferrous Sulfate [Iron (65 MG 325 mg PO DAILY 05/19/16 06/07/24 History Elemental)] Insulin Aspart (For Pump) [NovoLOG 0.01 unit SQ-PUMP CONTINUOUS 05/28/18 06/07/24 History (For Pump)] Pramipexole [Mirapex] 0.5 mg PO BID PRN 05/02/19 06/07/24 History Albuterol Inhaler [Ventolin Hfa 2 puff INHALATION RT-Q4H PRN 08/10/21 06/07/24 History Inhaler] Aspirin EC [Ecotrin Low Dose] 81 mg PO DAILY 02/21/22 06/07/24 History Glucagon Emergency Kit 1 mg IM ONCE PRN 02/21/22 06/07/24 History Escitalopram [Lexapro] 10 mg PO DAILY 01/01/23 06/07/24 History ALPRAZolam [Xanax] 0.5 mg PO HS PRN 06/17/23 06/07/24 History Cholecalciferol [Vitamin D3 (25 50 mcg PO DAILY 06/17/23 06/07/24 History Mcg = 1000 Iu)] Tamsulosin [Flomax] 0.4 mg PO HS 06/17/23 06/07/24 History Cetirizine HCl [Zyrtec] 10 mg PO DAILY 09/22/23 06/07/24 History Folic Acid/Vit B Complex and C 0.8 mg PO DAILY 09/22/23 06/07/24 History [Nephro-Pooja Tablet] Torsemide [Demadex] 40 mg PO SUMOWEFR 09/22/23 06/07/24 History Clopidogrel [Plavix] 75 mg PO DAILY #30 tab 10/24/23 06/07/24 Rx Nitroglycerin Sl Tabs [Nitrostat] 0.4 mg SUBLINGUAL Q5M PRN #25 tab 02/22/24 06/07/24 Rx Isosorbide Mononitrate ER [Imdur] 30 mg PO DAILY 06/07/24 06/07/24 History Metoprolol Tartrate [Lopressor] 12.5 mg PO HS 06/07/24 06/07/24 History Metoprolol Tartrate [Lopressor] 25 mg PO DAILY 06/07/24 06/07/24 History Ranolazine [Ranexa] 500 mg PO BID 06/07/24 06/07/24 History Rosuvastatin [Crestor] 10 mg PO HS 06/07/24 06/07/24 History Topiramate [Topamax] 25 mg PO BID 06/07/24 06/07/24 History methylPREDNISolone [Medrol Dose See Taper PO DIRECTED 06/07/24 06/07/24 History Pack] Allergies Allergy/AdvReac Type Severity Reaction Status Date / Time zolpidem [From Ambien] Allergy Hallucinati Verified 02/27/24 08:25 ons atorvastatin [From Lipitor] AdvReac jt and Verified 02/27/24 08:25 muscle pain baclofen AdvReac caused a Verified 02/27/24 08:25 fall Physical Exam Vitals: Vital Signs Temp Pulse Resp BP Pulse Ox 06/07/24 06:27 65 16 129/56 100 06/07/24 05:24 98.4 F 71 18 144/62 100 Intake and Output 06/06/24 06/07/24 06/07/24 22:59 06:59 14:59 Other: Weight 96.162 kg Results CBC & Chem 7: 06/07/24 05:31 06/07/24 05:31 Labs: Abnormal Lab Results - Last 24 Hours (Table) 06/07/24 06/07/24 Range/Units 05:31 05:31 RBC 3.68 L (4.30-5.90) m/uL Hgb 11.8 L (13.0-17.5) gm/dL Hct 35.8 L (39.0-53.0) % Lymphocytes # 0.6 L (1.0-4.8) k/uL Sodium 133 L (137-145) mmol/L Chloride 95 L (98-107) mmol/L BUN 50 H (9-20) mg/dL Creatinine 4.92 H (0.66-1.25) mg/dL Glucose 423 H (74-99) mg/dL
[2024-06-07] MEDS ORDERED: DEXTROSE 50% SYRINGE 50 ML IVP PRN ×2 (11:57)
--- NOTE | 2024-06-07 12:16 | P.CRDCN ---
History of Present Illness History of present illness: HISTORY OF PRESENT ILLNESS: This is a 73-year-old male with a past medical history significant for coronary artery disease with previous CABG and subsequent stenting, chronic kidney disea se on hemodialysis, hypertension, hyperlipidemia, and diabetes. Patient follows in the office with Dr. Castle. We have been asked to see the patient in consultation for chest pain. Patient examined at the bedside in the emergency room. Patient states yesterday he began having chest pain while he was at home sitting in his chair. He states that he took a nitro and then fell asleep. He states that when he woke up he continued to have chest pain. He states he had radiation open to his neck. He also reports feeling short of breath and felt like he was having gas pains as well. He took 2 more nitro and an aspirin and came to the hospital for further evaluation. At the time of examination, the patient denies any chest pain or pressure. DIAGNOSTICS: - EKG reveals sinus mechanism with right bundle branch block. - Chest xray negative for acute process - Laboratory data: WBC 5.0. Hemoglobin 11.8. Platelet count 169. Sodium 133. Potassium 4.4. BUN 50. Creatinine 4.92. Troponin negative x 2. proBNP 21,500 - Current home cardiac medications include metoprolol 25 mg in the morning and 12.5 mg at night, rosuvastatin 10 mg at night, aspirin 81 mg daily, Plavix 75 mg daily, Zetia 10 mg daily, Imdur 30 mg daily, Demadex 40 mg Tuesday, Ranexa 500 mg twice a day - Most recent echocardiogram obtained in January 2024 revealed ejection fraction 50 to 55%, mild to moderate aortic stenosis, moderate mitral regurgitation, mild tricuspid regurgitation -Patient underwent two-vessel CABG on October 17, 2023 (LAD and ramus intermedius) - Cardiac catheterization history: February 21, 2024 revealing 70% left main stenosis, 50% proximal LAD, 80% mid LAD, 20 to 30% ramus, 100% circumflex, 80% RCA stenosis. Elevated left-sided filling pressures. iFR normal of left main i nto ramus. iFR abnormal of RCA. Patient underwent stenting of the proximal to mid RCA REVIEW OF SYSTEMS: At the time of my exam: CONSTITUTIONAL: Denies fever or chills. HEENT: Denies blurred vision, vision changes, or eye pain. Denies hemoptysis CARDIOVASCULAR: Denies chest pain. Denies orthopnea. Denies PND. Denies palpitations RESPIRATORY: Denies shortness of breath. GASTROINTESTINAL: Denies abdominal pain. Denies nausea or vomiting. HEMATOLOGIC: Denies bleeding disorders. GENITOURINARY: Denies any blood in urine. SKIN: Denies pruitis. Denies rash. PHYSICAL EXAM: VITAL SIGNS: Reviewed. GENERAL: Well-developed in no acute distress. HEENT: Head is normocephalic. Pupils are equal, round. Sclerae anicteric. Mucous membranes of the mouth are moist. Neck supple. No JVD or thyromegaly LUNGS: Respirations even and unlabored. Lungs essentially clear to auscultation bilaterally. HEART: Regular rate and rhythm. S1 and S2 heard. Systolic murmur noted ABDOMEN: Soft. Nondistended. Nontender. EXTREMITIES: Normal range of motion. No clubbing or cyanosis. Peripheral pulses intact. No lower extremity edema NEUROLOGIC: Awake and alert. Oriented x 3. ASSESSMENT: Unstable angina Coronary artery disease with recent CABG x 2 vessels, left internal thoracic artery to LAD and saphenous vein from aorta to ramus intermedius, September 2023 Status post cardiac catheterization February 21, 2024 with stenting of the proximal to mid RCA End-stage renal disease on hemodialysis Hypertension Hyperlipidemia Diabetes Mild to moderate aortic stenosis and moderate mitral regurgitation PLAN: Obtain 2D echo to assess cardiac structure and function Resume home cardiac medications Begin IV heparin Hemodialysis per nephrology N.p.o. at midnight Patient to undergo cardiac catheterization tomorrow with Dr. Castle. (Atorvastatin not ordered with cardiac cath order set as patient is unable to tolerate atorvastatin.) Further recommendations pending patient course Nurse practitioner note has been reviewed by physician. Signing provider agrees with the documented findings, assessment, and plan of care documented by ELIGIBILITY SUPERVISOR as a scribe. Past Medical History Past Medical History: Blood Disorder, Coronary Artery Disease (CAD), Chest Pain / Angina, Heart Failure, COPD, Diabetes Mellitus, Dialysis, Hearing Disorder / Deafness, Hyperlipidemia, Hypertension, Myocardial Infarction ([place]), Osteoarthritis (OA), Renal Disease, Sleep Apnea/CPAP/BIPAP Additional Past Medical History / Comment(s): has insulin pump and contiunuous blood glucose monitor,fell at home on Tuesday10-10-23"got dizzy"-no injury,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. Chronic renal failure, dialysis [facility] normally. Patient has insulin pump. Has CPAP, occasionally uses. Neuropathy in feet and hands. Poor hearing. Last Myocardial Infarction Date:: History of Any Multi-Drug Resistant Organisms: None Reported Past Surgical History: Cholecystectomy, Coronary Bypass/CABG, Heart Catheterization, Heart Catheterization With Stent, Orthopedic Surgery Additional Past Surgical History / Comment(s): Shoulder surgery-no hardware, hemorrhoidectomy, eye surgery,4 cardiac stents,AV fistula left forearm, double vessle CABG 10/17/23 Past Anesthesia/Blood Transfusion Reactions: No Reported Reaction Additional Past Anesthesia/Blood Transfusion Reaction / Comment(s): Never had a blood transfusion. Date of Last Stent Placement:: 2004,2014,2023 Past Psychological History: Anxiety Smoking Status: Former smoker Past Alcohol Use History: None Reported Past Drug Use History: None Reported - Past Family History Father Family Medical History: Cancer Additional Family Medical History / Comment(s): Bladder cancer. Mother Family Medical History: Cancer, Diabetes Mellitus Additional Family Medical History / Comment(s): Pancreatic cancer. Medications and Allergies Home Medications Medication Instructions Recorded Confirmed Type Ezetimibe [Zetia] 10 mg PO DAILY 05/19/16 06/07/24 History Ferrous Sulfate [Iron (65 MG 325 mg PO DAILY 05/19/16 06/07/24 History Elemental)] Insulin Aspart (For Pump) [NovoLOG 0.01 unit SQ-PUMP CONTINUOUS 05/28/18 06/07/24 History (For Pump)] Pramipexole [Mirapex] 0.5 mg PO BID PRN 05/02/19 06/07/24 History Albuterol Inhaler [Ventolin Hfa 2 puff INHALATION RT-Q4H PRN 08/10/21 06/07/24 History Inhaler] Aspirin EC [Ecotrin Low Dose] 81 mg PO DAILY 02/21/22 06/07/24 History Glucagon Emergency Kit 1 mg IM ONCE PRN 02/21/22 06/07/24 History Escitalopram [Lexapro] 10 mg PO DAILY 01/01/23 06/07/24 History ALPRAZolam [Xanax] 0.5 mg PO HS PRN 06/17/23 06/07/24 History Cholecalciferol [Vitamin D3 (25 50 mcg PO DAILY 06/17/23 06/07/24 History Mcg = 1000 Iu)] Tamsulosin [Flomax] 0.4 mg PO HS 06/17/23 06/07/24 History Cetirizine HCl [Zyrtec] 10 mg PO DAILY 09/22/23 06/07/24 History Folic Acid/Vit B Complex and C 0.8 mg PO DAILY 09/22/23 06/07/24 History [Nephro-Pooja Tablet] Torsemide [Demadex] 40 mg PO SUMOWEFR 09/22/23 06/07/24 History Clopidogrel [Plavix] 75 mg PO DAILY #30 tab 10/24/23 06/07/24 Rx Nitroglycerin Sl Tabs [Nitrostat] 0.4 mg SUBLINGUAL Q5M PRN #25 tab 02/22/24 06/07/24 Rx Isosorbide Mononitrate ER [Imdur] 30 mg PO DAILY 06/07/24 06/07/24 History Metoprolol Tartrate [Lopressor] 12.5 mg PO HS 06/07/24 06/07/24 History Metoprolol Tartrate [Lopressor] 25 mg PO DAILY 06/07/24 06/07/24 History Ranolazine [Ranexa] 500 mg PO BID 06/07/24 06/07/24 History Rosuvastatin [Crestor] 10 mg PO HS 06/07/24 06/07/24 History Topiramate [Topamax] 25 mg PO BID 06/07/24 06/07/24 History methylPREDNISolone [Medrol Dose See Taper PO DIRECTED 06/07/24 06/07/24 History Pack] Allergies Allergy/AdvReac Type Severity Reaction Status Date / Time zolpidem [From Ambien] Allergy Hallucinati Verified 02/27/24 08:25 ons atorvastatin [From Lipitor] AdvReac jt and Verified 02/27/24 08:25 muscle pain baclofen AdvReac caused a Verified 02/27/24 08:25 fall Physical Exam Vitals: Vital Signs Temp Pulse Pulse Resp BP BP Pulse Ox 06/07/24 10:25 98.2 F 57 L 20 171/70 97 06/07/24 09:21 67 18 155/66 100 06/07/24 06:27 65 16 129/56 100 06/07/24 05:24 98.4 F 71 18 144/62 100 Intake and Output 06/06/24 06/07/24 06/07/24 22:59 06:59 14:59 Other: Weight 96.162 kg 96.7 kg Results 06/07/24 05:31 06/07/24 05:31 Cardiac Enzymes 06/07/24 06/07/24 06/07/24 Range/Units 05:31 05:31 07:58 AST 30 (17-59) U/L Troponin I <0.012 <0.012 (0.000-0.034) ng/mL Coagulation 06/07/24 Range/Units 05:31 PT 11.2 (10.0-12.5) sec APTT 27.1 (22.0-30.0) sec CBC 06/07/24 Range/Units 05:31 WBC 5.0 (3.8-10.6) k/uL RBC 3.68 L (4.30-5.90) m/uL Hgb 11.8 L (13.0-17.5) gm/dL Hct 35.8 L (39.0-53.0) % Plt Count 169 (150-450) k/uL Comprehensive Metabolic Panel 06/07/24 Range/Units 05:31 Sodium 133 L (137-145) mmol/L Potassium 4.4 (3.5-5.1) mmol/L Chloride 95 L (98-107) mmol/L Carbon Dioxide 25 (22-30) mmol/L BUN 50 H (9-20) mg/dL Creatinine 4.92 H (0.66-1.25) mg/dL Glucose 423 H (74-99) mg/dL Calcium 8.4 (8.4-10.2) mg/dL AST 30 (17-59) U/L ALT 23 (4-49) U/L Alkaline Phosphatase 101 (38-126) U/L Total Protein 7.7 (6.3-8.2) g/dL Albumin 4.3 (3.5-5.0) g/dL Current Medications Generic Name Dose Route Start Last Admin Trade Name Freq PRN Reason Stop Dose Admin Albuterol Sulfate 2.5 mg 06/07/24 08:15 Albuterol Nebulized 2.5 Mg/3 Ml INHALATION RT-Q4H PRN Shortness Of Breath Alprazolam 0.25 mg 06/07/24 09:31 Alprazolam 0.25 Mg Tab PO Q6HR PRN Mild Anxiety Alprazolam 0.5 mg 06/07/24 09:31 Alprazolam 0.5 Mg Tab PO Q6HR PRN Moderate Anxiety Aspirin 81 mg 06/09/24 09:00 Aspirin 81 Mg PO DAILY JOEY Aspirin 325 mg 06/08/24 05:00 Aspirin 325 Mg Tab PO 06/08/24 05:01 ONCE ONE Cholecalciferol 50 mcg 06/07/24 09:00 06/07/24 09:09 Cholecalciferol 25 Mcg (1000 Iu) Tablet PO 50 mcg DAILY JOEY Administration Clopidogrel Bisulfate 75 mg 06/07/24 09:00 06/07/24 09:09 Clopidogrel 75 Mg Tab PO 75 mg DAILY JOEY Administration Dextrose/Water 25 ml 06/07/24 11:57 Dextrose 50% Syringe 50 Ml IVP PER PROTOCOL PRN Hypoglycemia Protocol Dextrose/Water 50 ml 06/07/24 11:57 Dextrose 50% Syringe 50 Ml IVP PER PROTOCOL PRN Hypoglycemia Protocol Ezetimibe 10 mg 06/07/24 09:00 06/07/24 10:10 Ezetimibe 10 Mg Tab PO 10 mg DAILY JOEY Administration Escitalopram Oxalate 10 mg 06/07/24 09:00 06/07/24 09:09 Escitalopram 10 Mg Tab PO 10 mg DAILY JOEY Administration Ferrous Sulfate 325 mg 06/07/24 09:00 06/07/24 09:09 Ferrous Sulfate 325 Mg Tab PO 325 mg DAILY JOEY Administration Heparin Sodium (Porcine) 0 unit 06/07/24 08:30 Heparin Sodium 1,000 Un/Ml (10ml Vl) IV PER PROTOCOL PRN Low PTT Protocol Heparin Sodium/Sodium Chloride 250 mls @ 10 mls/hr 06/07/24 08:30 06/07/24 09:20 25,000 unit/ Sodium Chloride IV 10.399 units/kg/hr .Q24H JOEY 10 mls/hr Administration Protocol 10.399 UNITS/KG/HR Heparin Sodium (Porcine) 10, 1,001 mls @ 999 mls/hr 06/08/24 07:00 000 unit/ Sodium Chloride IRRIGATION 06/08/24 23:00 ONCE PRN INTRA-OP Heparin Sodium (Porcine) 2,500 250.5 mls @ 250 mls/hr 06/08/24 07:00 unit/ Sodium Chloride IRRIGATION 06/08/24 23:00 ONCE PRN INTRA-OP Sodium Chloride 1,000 ml/ IV 1,000 mls @ 96.162 mls/hr 06/08/24 01:00 Solution IV .[id number] JOEY 1 ML/KG/HR Insulin Aspart 0.01 unit 06/07/24 08:15 Insulin Aspart (For Pump) 100 Unit/Ml Vial SQ-PUMP CONTINUOUS JOEY Isosorbide Mononitrate 60 mg 06/07/24 09:00 06/07/24 09:09 Isosorbide Mononitrate Er 60 Mg Tab.Er.24h PO 60 mg DAILY JOEY Administration Loratadine 10 mg 06/07/24 09:00 06/07/24 09:10 Loratadine 10 Mg Tab PO 10 mg DAILY JOEY Administration Metoprolol Tartrate 25 mg 06/07/24 09:00 06/07/24 09:10 Metoprolol Tartrate 25 Mg Tab PO 25 mg BID JOEY Administration Multivit/Ca Carb/B Cmplx/FA/Prenat 1 each 06/07/24 09:00 06/07/24 10:10 Folic Acid-Vit B Complex-Vit C 1 Cap PO 1 each DAILY JOEY Administration Nitroglycerin 0.4 mg 06/07/24 09:31 Nitroglycerin Sl Tabs 0.4 Mg Tab SUBLINGUAL Q5M PRN Chest Pain Non-Formulary Medication 20 mg 06/07/24 21:00 Rosuvastatin PO HS JOEY Pantoprazole Sodium 40 mg 06/08/24 07:30 Pantoprazole 40 Mg Tablet PO AC-BRKFST JOEY Pramipexole Dihydrochloride 0.5 mg 06/07/24 08:15 Pramipexole 0.5 Mg Tab PO BID PRN Restless legs Tamsulosin HCl 0.4 mg 06/07/24 21:00 Tamsulosin 0.4 Mg Cap.Er.24h PO HS JOEY Torsemide 40 mg 06/08/24 09:00 Torsemide 20 Mg Tab PO SUMOWEFR JOEY Intake and Output 06/06/24 06/07/24 06/07/24 22:59 06:59 14:59 Other: Weight 96.162 kg 96.7 kg Patient Weight 06/08/24 06:59 Weight 96.7 kg 06/07/24 05:31 06/07/24 05:31
[2024-06-07 17:00] LABS: Glucose,Whole Blood 180 mg/dL (70-110)
[2024-06-07] MEDS: Insulin Aspart (For Pump) 100 UNIT/ML VIAL SQ-PUMP SCH (17:06)
[2024-06-07] MEDS: HEPARIN SODIUM 1,000 UN/ML (10ML VL) IV PRN (17:38)
[2024-06-07] MEDS: INSULIN ASPART (NovoLOG) 100 UNIT/ML VIAL SQ SCH (17:42)
[2024-06-07 20:02] LABS: Glucose,Whole Blood 158 mg/dL (70-110)
[2024-06-07] MEDS: NON FORMULARY DRUG (Rosuvastatin 20 MG Tablet) PO SCH (21:59)
[2024-06-07 22:03] LABS: Glucose,Whole Blood 294 mg/dL (70-110)
[2024-06-07] MEDS: TAMSULOSIN 0.4 MG CAP.ER.24H PO SCH (22:12)
[2024-06-08] MEDS: SODIUM CHLORIDE 0.9% 1,000 ML in EMPTY BAG 1 BAG IV SCH (00:57)
[2024-06-08 05:34] LABS: Glucose,Whole Blood 257 mg/dL (70-110)
[2024-06-08] MEDS: ASPIRIN 325 MG TAB PO ONE (05:43)
[2024-06-08] MEDS: PANTOPRAZOLE 40 MG TABLET PO SCH (05:43)
[2024-06-08 06:27] LABS: INR 1.2 (<1.2); Prothrombin Time 12.5 sec (10.0-12.5)
[2024-06-08 06:33] LABS: Partial Thromboplastin Time >200.0 sec (22.0-30.0)
[2024-06-08] MEDS: TORSEMIDE 20 MG TAB PO SCH (07:56)
[2024-06-08] MEDS ORDERED: ASPIRIN 325 MG TAB PO SCH (09:00)
[2024-06-08 09:36] LABS: BUN/Creat Ratio 8.97 Ratio (12.00-20.00); Blood Urea Nitrogen 26.9 mg/dL (9.0-27.0); Calcium 7.1 mg/dL (8.7-10.3); Carbon Dioxide 24.7 mmol/L (21.6-31.8); Chloride 100 mmol/L (96-109); Glucose 211 mg/dL (70-110); HCT 33.5 % (39.6-50.0); MCH 31.8 pg (27.0-32.0); MCHC 32.8 g/dL (32.0-37.0); MCV 96.8 FL (80.0-97.0); Magnesium 1.6 mg/dL (1.5-2.4); Mean Platelet Volume 11.4 FL (9.5-12.2); NRBC Per 100 WBC 0 X 10*3/uL (0.00-0.01); Platelet Count 167 X 10*3/uL (140-440); Potassium 3.6 mmol/L (3.5-5.5); RBC 3.46 X 10*6/uL (4.40-5.60); RDW 13.2 % (11.5-14.5); Sodium 137 mmol/L (135-145); WBC 5.39 X 10*3/uL (4.50-10.00)
[2024-06-08 10:10] LABS: Basophils # (M) 0 X 10*3/uL (0.00-0.10); Eosinophils # (M) 0.11 X 10*3/uL (0.04-0.35); Lymphocytes # (M) 1.19 X 10*3/uL (0.90-5.00); Monocytes # (M) 0.75 X 10*3/uL (0.20-1.00); Neutrophils # (M) 3.34 X 10*3/uL (1.80-7.70); Neutrophils % (M) 62 %
--- NOTE | 2024-06-08 10:36 | P.PN ---
Subjective Patient is seen in follow-up for end-stage renal disease. He is maintained on hemodialysis on Tuesday schedule. No problems with dialysis yesterday. Denies chest pain. Scheduled for cardiac catheterization today. Vital signs are stable. General: No acute distress. HEENT: Head exam is unremarkable. LUNGS: No audible rhonchi or wheezes. HEART: Rate and Rhythm are regular. ABDOMEN: Nontender. EXTREMITITES: No edema. Objective - Vital Signs Vital signs: Vital Signs Temp 97.9 F 06/08/24 07:03 Pulse 61 06/08/24 07:03 Resp 18 06/08/24 07:03 BP 143/63 06/08/24 07:03 Pulse Ox 97 06/08/24 07:03 FiO2 Intake & Output 06/07/24 06/08/24 06/08/24 18:59 06:59 18:59 Intake Total 322.833 656 12.912 Output Total 4500 Balance 322.833 -3844 12.912 Weight 96.7 kg Intake: Intake, IV Titration 82.833 156 12.912 Amount Heparin Sod,Pork in 0.45% 82.833 156 12.912 NaCl 25,000 unit In 0.45 % NaCl 1 250ml.bag @ 10. 399 UNITS/KG/HR 10 mls/hr IV .Q24H [facility] Rx#: [id number] Oral 240 Hemodialysis 500 Output: Hemodialysis 2500 Hemodialysis Net Amount 2000 Other: Voiding Method Toilet Toilet Toilet # Voids 1 1 # Bowel Movements 1 - Labs CBC & Chem 7: 06/08/24 05:32 06/08/24 05:32 Labs: Abnormal Lab Results - Last 24 Hours (Table) 06/07/24 06/07/24 06/07/24 Range/Units 00:00 15:54 15:54 RBC (4.40-5.60) X 10*6/uL Hgb (13.0-17.0) g/dL Hct (39.6-50.0) % INR (<1.2) APTT 91.8 H 40.4 H (22.0-30.0) sec Anion Gap (4.00-12.00) mmol/L Creatinine (0.6-1.5) mg/dL Est GFR (CKD-EPI) (>=60) BUN/Creatinine Ratio (12.00-20.00) Ratio Glucose (70-110) mg/dL POC Glucose (mg/dL) (70-110) mg/dL Calcium (8.7-10.3) mg/dL Phosphorus 6.4 H (2.5-4.5) mg/dL 06/07/24 06/07/24 06/07/24 Range/Units 16:59 19:58 22:01 RBC (4.40-5.60) X 10*6/uL Hgb (13.0-17.0) g/dL Hct (39.6-50.0) % INR (<1.2) APTT (22.0-30.0) sec Anion Gap (4.00-12.00) mmol/L Creatinine (0.6-1.5) mg/dL Est GFR (CKD-EPI) (>=60) BUN/Creatinine Ratio (12.00-20.00) Ratio Glucose (70-110) mg/dL POC Glucose (mg/dL) 180 H 158 H 294 H (70-110) mg/dL Calcium (8.7-10.3) mg/dL Phosphorus (2.5-4.5) mg/dL 06/08/24 06/08/24 06/08/24 Range/Units 05:32 05:32 05:32 RBC 3.46 L (4.40-5.60) X 10*6/uL Hgb 11.0 L (13.0-17.0) g/dL Hct 33.5 L (39.6-50.0) % INR 1.2 H (<1.2) APTT >200.0 H* (22.0-30.0) sec Anion Gap 12.30 H (4.00-12.00) mmol/L Creatinine 3.0 H (0.6-1.5) mg/dL Est GFR (CKD-EPI) 21 L (>=60) BUN/Creatinine Ratio 8.97 L (12.00-20.00) Ratio Glucose 211 H (70-110) mg/dL POC Glucose (mg/dL) (70-110) mg/dL Calcium 7.1 L (8.7-10.3) mg/dL Phosphorus (2.5-4.5) mg/dL 06/08/24 Range/Units 05:32 RBC (4.40-5.60) X 10*6/uL Hgb (13.0-17.0) g/dL Hct (39.6-50.0) % INR (<1.2) APTT (22.0-30.0) sec Anion Gap (4.00-12.00) mmol/L Creatinine (0.6-1.5) mg/dL Est GFR (CKD-EPI) (>=60) BUN/Creatinine Ratio (12.00-20.00) Ratio Glucose (70-110) mg/dL POC Glucose (mg/dL) 257 H (70-110) mg/dL Calcium (8.7-10.3) mg/dL Phosphorus (2.5-4.5) mg/dL Assessment and Plan Plan: Assessment: 1. End-stage renal disease maintained on hemodialysis on Tuesday schedule. 2. Hypertension with chronic kidney disease. Stable. 3. Chest pain. Concern for acute coronary syndrome. Cardiac catheterization today. 4. Coronary artery disease status post CABG and cardiac stents placement. 5. Diabetes mellitus. 6. Chronic kidney disease mineral bone disease. Phosphorus level 6.4 dated June 07, 2024. Plan: Hemodialysis tomorrow. Add PhosLo with meals. Maintain Demadex. Avoid aggressive IV hydration pre and postcardiac cath due to ESRD, hypervolemic status.
[2024-06-08 11:59] LABS: Glucose,Whole Blood 190 mg/dL (70-110)
--- NOTE | 2024-06-08 12:02 | CA ---
Transthoracic Echo Report Name: Phan Luciano Age: 73 Gender: M : 1950 Exam Date: 06/08/2024 09:56 Exam Location: [place] [facility] Ht (in): 68 Wt (lb): 213 Ordering Physician: Jihan Sanchez Attending/Referring Phys: [id number], Laura Oyster Sorter Naye Torres RDCS Procedure CPT: Indications: CP Cardiac Hx: CABG 10/22. Focused study on LVEF, regionals, and valvular disease. Technical Quality: Technically difficult study Contrast 1: Definity Total Dose (mL): 2 Contrast 2: Total Dose (mL): MEASUREMENTS (Male / Female) Normal Values 2D ECHO LV Diastolic Diameter PLAX 5.5 cm 4.2 - 5.9 / 3.9 - 5.3 cm LV Systolic Diameter PLAX 4.5 cm IVS Diastolic Thickness 1.1 cm 0.6 - 1.0 / 0.6 - 0.9 cm LVPW Diastolic Thickness 1.3 cm 0.6 - 1.0 / 0.6 - 0.9 cm LV Relative Wall Thickness 0.4 LVOT Diameter 2.1 cm LV Diastolic Volume MOD BP 142.8 cm??? 67 - 155 / 56 - 104 cm??? LV Systolic Volume MOD BP 78.4 cm??? 22 - 58 / 19 - 49 cm??? LV Ejection Fraction MOD BP 45.1 % >= 55 % LV Cardiac Index MOD BP 1562.9 cm???/min???m??? LV Diastolic Volume MOD 4C 142.8 cm??? LV Systolic Volume MOD 4C 85.2 cm??? LV Ejection Fraction MOD 4C 40.4 % LV Cardiac Index MOD 4C 1398.4 cm???/min???m??? LV Diastolic Length 4C 8.8 cm LV Systolic Length 4C 8.1 cm LV Diastolic Volume MOD 2C 134.5 cm??? LV Systolic Volume MOD 2C 72.4 cm??? LV Ejection Fraction MOD 2C 46.2 % LV Cardiac Index MOD 2C 1506.4 cm???/min???m??? LV Diastolic Length 2C 9.4 cm LV Systolic Length 2C 8.1 cm DOPPLER AV Peak Velocity 328.2 cm/s AV Peak Gradient 43.1 mmHg AV Mean Velocity 236.4 cm/s AV Mean Gradient 24.8 mmHg AV Velocity Time Integral 93.1 cm LVOT Peak Velocity 121.8 cm/s LVOT Peak Gradient 5.9 mmHg LVOT Velocity Time Integral 32.8 cm LVOT Stroke Volume 118.1 cm??? LVOT Stroke Volume Index 56.2 ml/m??? LVOT Cardiac Index 2863.9 cm???/min???m??? AV Area Cont Eq vti 1.3 cm??? AV Area Cont Eq pk 1.3 cm??? MV Peak Velocity 146.7 cm/s MV Peak Gradient 8.6 mmHg MV Mean Velocity 79.8 cm/s MV Mean Gradient 3.1 mmHg MV Velocity Time Integral 49.9 cm TR Peak Velocity 253.1 cm/s TR Peak Gradient 25.6 mmHg Right Atrial Pressure 5.0 mmHg Pulmonary Artery Systolic Pressu 30.6 mmHg Right Ventricular Systolic Press 30.6 mmHg FINDINGS Left Ventricle Left ventricular ejection fraction is estimated at 40-45 %. Moderately increased left ventricular systolic volume. Mildly decreased left ventricular ejection fraction. Anterior wall hypokinesis. Right Ventricle Right ventricular dilatation with moderately reduced function. Right ventricular systolic pressure within normal limits. Right Atrium Right atrial dilatation. Left Atrium Left atrial dilatation. Mitral Valve Mitral valve thickened. Mitral annular calcification. [id number] mitral regurgitation. No mitral stenosis. Aortic Valve Trileaflet aortic valve. Diffuse thickening of the aortic valve cusps with reduced excursion. Moderate aortic stenosis with a mean gradient of 32mmHg and Tricuspid Valve Structurally normal tricuspid valve. No tricuspid stenosis. Mild tricuspid regurgitation. Pulmonic Valve Pulmonic valve not well visualized. Pericardium No pericardial effusion. Aorta Aortic annulus normal. CONCLUSIONS Moderate LV systolic dysfunction Mild to moderate mitral regurgitation Moderate aortic stenosis Previewed by: Dr. Chapito Sheets MD (Electronically Signed) Final Date: 08 June 2024 12:01
[2024-06-08] MEDS: MAGNESIUM SULFATE-D5W PMX 1 GM in DEXTROSE/WATER 1 100ML.BAG IVPB ONE (12:06)
--- NOTE | 2024-06-08 13:01 | P.PN ---
Subjective Progress Note Date: 06/08/24 Hospital course: Patient is a very pleasant 73-year-old male with a past medical history of CAD status post CABG x2 in September 2023, multiple stents, ESRD on hemodialysis (TThSa), chronic diastolic CHF, insulin-dependent diabetes mellitus with insulin pump, COPD, hypertension, hyperlipidemia, and obstructive sleep apnea CPAP dependent nightly. He presented to the emergency department with a chief complaint of chest pain. Per ED documentation patient received a total of 4 sublingual nitroglycerin tablets, 324 mg of aspirin, Zofran, and fentanyl prior to arrival at our facility. Patient reports chest pain initially were improving after taking his 2 doses of sublingual nitro at home but returned after EMS arrival and was given another 2 doses of nitro along with fentanyl and states chest pain has not returned as of this time. Upon arrival to our facility, patient underwent evaluation in the emergency department. Vital signs upon arrival show blood pressure 144/62, heart rate 71, respiratory rate 18, temp 98.4 F, and SpO2 of 100% on 2 L. EKG was completed showing normal sinus rhythm at 69 bpm with a first-degree AV block with [place] interval of 290 ms and a right bundle branch block with the exception of rate and worsening first-degree AV block, EKG appears to be unchanged when compared to recent EKG completed 03/13/2024 upon personal review, interpretation, and comparison. Chest x-ray completed is negative for acute cardiopulmonary process. Labs completed and reviewed. CBC showing normocytic anemia with hemoglobin of 11.8. Coagulation profile normal findings. BMP showing sodium 133, chloride 95, BUN of 50, creatinine of 4.92, GFR of 11 patient is due for dialysis today. Magnesium 2.1. Calcium 8.4. Liver profile unremarkable. Troponin negative at less than 0.012 and proBNP 21,500. Patient admitted under our services with consultation to cardiology and nephrology for needed dialysis. Troponins were trended resulting at 0.018, less than 0.012 and less than 0.012. He was started on low intensity heparin infusion for treatment of unstable angina. Patient underwent dialysis on 06/07/2024 and is scheduled for cardiac catheterization with Dr. Sheets later today. Physical exam: Patient seen and fully evaluated at bedside this morning. Currently he reports feeling well and denies having any active chest pain at this time. He reports it did wax and wane throughout the night, but at time of assessment is currently resolved. Patient's at bedside. Echocardiogram being completed at this time. Vital signs reviewed and stable. General: Nontoxic, no distress and appears stated age. Derm: Skin warm and dry, normal coloration for ethnicity. Head: Atraumatic, normocephalic and symmetric. Eyes: EOM's intact, no lid lag, and anicteric sclera Mouth: no lip lesions, mucus membranes moist Cardiovascular: regular rate and rhythm with normal S1S2, systolic murmur, positive posterior tibial pulses bilaterally, and cap refill < 2 seconds. AV fistula left upper extremity with bruit and thrill intact. Lungs: Respirations even, regular, and unlabored on room air. Lungs CTA bilaterally, no rhonchi, no rales, no wheezing, and no accessory muscle usage. Abdominal: soft, nontender to palpation, no guarding, no appreciable organomegaly Ext: ROM intact. No gross muscle atrophy, 1+ BLE edema, no contractures Neuro: Speech clear, face symmetrical and CN II-XII grossly intact with no noted focal neuro deficits Psych: Alert and oriented to person, place, time, and situation. Appropriate and pleasant affect. Assessment and Plan of Care: Unstable angina Mild diastolic heart failure exacerbation CAD with extensive cardiac history including CABG x 2 followed by multiple stents -Cardiology consulted, taking patient for cardiac catheterization later today. -Telemetry monitoring -Continue low intensity heparin infusion with close monitoring of PTT every 6 hours for goal therapeutic range of 45 to 79 seconds. PTT critical at greater than 200, heparin held per protocol. and to restart on lower dose once PTT in therapeutic range -Troponins were trended resulting at 0.018, less than 0.012 and less than 0.012. -Continue cardiac medication regimen with aspirin 81 mg daily, Plavix 75 mg daily, Zetia 10 mg daily, isosorbide mononitrate 60 mg daily, metoprolol 25 mg twice daily, rosuvastatin 20 mg nightly, and torsemide 40 mg daily on nondialysis days. -Echocardiogram completed 02/17/2024 was reviewed showing a preserved EF of 50 to 55% and most recent stent was placed on 02/29/2024 to left main. -Repeat echocardiogram being completed at time of exam. ESRD Hypochloremic hyponatremia, secondary to volume overload Anemia of chronic disease -Nephrology consulted and discussed plan of care with Dr. Posey. Patient to undergo hemodialysis as scheduled. Insulin-dependent diabetes mellitus with hyperglycemia -Patient placed on glycemic protocol with [id number] glucose checks 4 times daily (with meals and at bedtime) -Order placed for patient to continue use of home insulin pump. Obstructive sleep apnea Continue use of CPAP nightly and while napping. COPD, not in acute exacerbation Continue nebulizer treatments every 4 hours as needed for wheezing/shortness of breath. Patient to be provided with oxygen as needed to maintain SpO2 equal to or greater than 92%. Hypertension Monitor vital signs and continue daily medication regimen with isosorbide mono nitrate 60 mg daily, metoprolol 25 mg twice daily, and torsemide 40 mg daily on nondialysis days. Hyperlipidemia Continue daily medication regimen with rosuvastatin 20 mg nightly and Zetia 10 mg daily. BPH Continue Flomax 0.4 mg nightly. Data and imaging reviewed: Troponins were trended resulting at 0.018, less than 0.012 and less than 0.012. CBC showing stable normocytic anemia with hemoglobin of 11.0. Coagulation profile showing elevated INR of 1.2 and critical PTT of greater than 200. BMP showing slightly elevated anion gap of 12.30 and renal function c onsistent with ESRD with BUN of 26.9, creatinine 3.0, and GFR of 21. Blood glucose 211. Magnesium 1.6. Vital signs reviewed. 143/63, heart rate 61, respiratory rate 18, temp 97.9 F, and SpO2 of 97% on room air. CODE STATUS: Full code DVT prophylaxis: Heparin Anticipated discharge date: Pending clinical course Anticipated discharge place: Home Patient was seen independently by Nurse Practitioner. This document was prepared using [employer] dictation software. Please allow for errors in motorcycle designer while rare they do occur. Manuel Ivey NP rendered care for this patient independently, reviewed the findings and plan as documented in the note above and agree with plan. I did not physically speak with or examine the patient on this date. Objective - Vital Signs Vital signs: Vital Signs Temp 97.9 F 06/08/24 07:03 Pulse 61 06/08/24 07:03 Resp 18 06/08/24 07:03 BP 143/63 06/08/24 07:03 Pulse Ox 97 06/08/24 07:03 FiO2 Intake & Output 06/07/24 06/08/24 06/08/24 18:59 06:59 18:59 Intake Total 322.833 656 0 Output Total 4500 Balance 322.833 -3844 0 Weight 96.7 kg Intake: Intake, IV Titration 82.833 156 0 Amount Heparin Sod,Pork in 0.45% 82.833 156 0 NaCl 25,000 unit In 0.45 % NaCl 1 250ml.bag @ 10. 399 UNITS/KG/HR 10 mls/hr IV .Q24H [facility] Rx#: [id number] Oral 240 Hemodialysis 500 Output: Hemodialysis 2500 Hemodialysis Net Amount 2000 Other: Voiding Method Toilet Toilet Toilet # Voids 1 1 # Bowel Movements 1 - Labs CBC & Chem 7: 06/08/24 05:32 06/08/24 05:32 Labs: Abnormal Lab Results - Last 24 Hours (Table) 06/07/24 06/07/24 06/07/24 Range/Units 00:00 10:08 15:54 INR (<1.2) APTT 91.8 H (22.0-30.0) sec POC Glucose (mg/dL) 229 H (70-110) mg/dL Phosphorus 6.4 H (2.5-4.5) mg/dL 06/07/24 06/07/24 06/07/24 Range/Units 15:54 16:59 19:58 INR (<1.2) APTT 40.4 H (22.0-30.0) sec POC Glucose (mg/dL) 180 H 158 H (70-110) mg/dL Phosphorus (2.5-4.5) mg/dL 06/07/24 06/08/24 06/08/24 Range/Units 22:01 05:32 05:32 INR 1.2 H (<1.2) APTT >200.0 H* (22.0-30.0) sec POC Glucose (mg/dL) 294 H 257 H (70-110) mg/dL Phosphorus (2.5-4.5) mg/dL
[2024-06-08] MEDS: CALCIUM ACETATE 667 MG TAB PO SCH (13:33)
[2024-06-08] MEDS: fentaNYL (PF) 50 MCG/ML 2 ML AMP IVP ONE (14:00)
[2024-06-08] MEDS: IV FLUID CONTINUATION 1,000 ML IV ONE (14:00)
[2024-06-08] MEDS: MIDAZOLAM 2 MG/2 ML VIAL IVP ONE (14:00)
[2024-06-08] MEDS: LIDOCAINE 1% INJ 10MG/ML (20 ML MDV) SQ ONE (14:06)
[2024-06-08] MEDS: HEPARIN SODIUM,PORCINE (1 ML) 2,500 UNIT in SODIUM CHLORIDE 0.9% 250 ML IRRIGATION PRN (14:21)
[2024-06-08] MEDS: HEPARIN SODIUM,PORCINE 10,000 UNIT in SODIUM CHLORIDE 0.9% 1,000 ML IRRIGATION PRN (14:21)
[2024-06-08] MEDS: IOPAMIDOL-370 100ML BTL INJ ONE (14:32)
--- NOTE | 2024-06-08 14:53 | P.CARDCATH ---
Description of Procedure: PROCEDURES PERFORMED: Left heart catheterization, bilateral coronary angiography, ultrasound guided arterial access, TIAN to LAD angiography INDICATION: Unstable angina CONSENT:I have discussed the risks, benefits and alternative therapies for the above-mentioned procedure and for both sedation/analgesia as well as necessary blood product administration, if indicated, as they pertain to this patient. The patient has indicated understanding and acceptance of the risks and procedures discussed. PROCEDURE: After the risks, benefits and alternatives of the above mentioned procedure explained in detail with the patient, informed consent was obtained. Patient was taken to the catheterization lab and prepped and draped in usual fashion. Ultrasound guidance was used to assess for arterial access. 1% lidocaine was used to anesthetize the right femoral artery. A 6-Estonian sheath was placed in the right femoral artery using modified Seldinger technique and ultrasound guidance. Left coronary angiography was performed with a 6-Estonian JL 4.0 catheter and right coronary angiography was performed with a 6-Estonian FR4 catheter in various views. A 6-Estonian FR4 catheter was inserted into the left ventricle and pressure measurements were obtained. TIAN to LAD angiography was performed with a 6Fr SUKHDEEP catherter. The right femoral sheath was left in place for later removal with heavily calcified femoral artery. The patient tolerated the procedure well. Patient was transported back to the post catheterization holding area in stable condition. Conscious Sedation: Patient was monitored under the direct supervision of myself for conscious sedation using Versed and fentanyl for a total duration of 24 minutes HEMODYNAMICS: aorta: 134/72 LV: 144/12, LVEDP 22, mean gradient 16 mmHg across the valve SELECTIVE CORONARY ARTERIOGRAPHY: LEFT MAIN: The left main is a large caliber vessel which trifurcates into the LAD, ramus and circumflex. There is patent left main stent. LEFT ANTERIOR DESCENDING CORONARY ARTERY: LAD is a large caliber vessel which wraps around to the apex. There is diffuse heavily calcified LAD with 50% proximal LAD, 80% mid LAD stenosis. There is competitive flow to the distal LAD with the TIAN. RAMUS: ramus is moderate caliber with mild luminal irregularities, 20-30% stenosis. LEFT CIRCUMFLEX CORONARY ARTERY: Left circumflex is a moderate caliber vessel with 100% proximal stenosis. RIGHT CORONARY ARTERY: The right coronary artery is a large caliber vessel which gives off a PDA and PLV branch and is the dominant vessel. There is patent proximal to mid stent with 20-30% instent stenosis and a more distal 30% stenosis SVG to ramus: Known to be 100% occluded TIAN to LAD: Widely patent FINAL IMPRESSION: 1. CAD as described above with patent left main stent, 50% proximal LAD, 80% mid LAD, 20-30% ramus, 100% circumflex and 30% RCA stenosis 2. Elevated left sided filling pressures 3. Patent TIAN to LAD, known SVG to ramus occluded 4. Mild to moderate aortic stenosis PLAN: 1. Aggressive risk factor modification per most recent ACC/AHA guidelines. 2. CAD appears unchanged from prior 02/21 and symptoms more likely related to flash pulmonary edema, PND.
[2024-06-08 17:06] LABS: Glucose,Whole Blood 202 mg/dL (70-110)
[2024-06-08 20:10] LABS: Glucose,Whole Blood 240 mg/dL (70-110)
[2024-06-09 05:48] LABS: Glucose,Whole Blood 193 mg/dL (70-110)
[2024-06-09] MEDS: ASPIRIN 81 MG PO SCH (09:12)
--- NOTE | 2024-06-09 09:18 | P.PN ---
Subjective Patient is seen in follow-up for end-stage renal disease. He is maintained on hemodialysis on Tuesday schedule. Scheduled for dialysis today. Denies chest pain or shortness of breath. Vital signs are stable. General: No acute distress. HEENT: Head exam is unremarkable. LUNGS: No audible rhonchi or wheezes. HEART: Rate and Rhythm are regular. ABDOMEN: Nontender. EXTREMITITES: No edema. Objective - Vital Signs Vital signs: Vital Signs Temp 97.9 F 06/09/24 07:00 Pulse 61 06/09/24 07:00 Resp 16 06/09/24 07:00 BP 147/67 06/09/24 07:00 Pulse Ox 99 06/09/24 07:00 FiO2 Intake & Output 06/08/24 06/09/24 06/09/24 18:59 06:59 18:59 Intake Total 212.912 720 Balance 212.912 720 Intake: IV 200 Intake, IV Titration 12.912 Amount Heparin Sod,Pork in 0.45% 12.912 NaCl 25,000 unit In 0.45 % NaCl 1 250ml.bag @ 10. 399 UNITS/KG/HR 10 mls/hr IV .Q24H [facility] Rx#: [id number] Oral 720 Other: Voiding Method Toilet Toilet # Voids 2 - Labs CBC & Chem 7: 06/08/24 05:32 06/08/24 05:32 Labs: Abnormal Lab Results - Last 24 Hours (Table) 06/08/24 06/08/24 06/08/24 Range/Units 05:32 05:32 11:58 RBC 3.46 L (4.40-5.60) X 10*6/uL Hgb 11.0 L (13.0-17.0) g/dL Hct 33.5 L (39.6-50.0) % Anion Gap 12.30 H (4.00-12.00) mmol/L Creatinine 3.0 H (0.6-1.5) mg/dL Est GFR (CKD-EPI) 21 L (>=60) BUN/Creatinine Ratio 8.97 L (12.00-20.00) Ratio Glucose 211 H (70-110) mg/dL POC Glucose (mg/dL) 190 H (70-110) mg/dL Calcium 7.1 L (8.7-10.3) mg/dL 06/08/24 06/08/24 06/09/24 Range/Units 17:05 20:08 05:47 RBC (4.40-5.60) X 10*6/uL Hgb (13.0-17.0) g/dL Hct (39.6-50.0) % Anion Gap (4.00-12.00) mmol/L Creatinine (0.6-1.5) mg/dL Est GFR (CKD-EPI) (>=60) BUN/Creatinine Ratio (12.00-20.00) Ratio Glucose (70-110) mg/dL POC Glucose (mg/dL) 202 H 240 H 193 H (70-110) mg/dL Calcium (8.7-10.3) mg/dL Assessment and Plan Plan: Assessment: 1. End-stage renal disease maintained on hemodialysis on Tuesday schedule. 2. Hypertension with chronic kidney disease. Stable. 3. Chest pain. Concern for acute coronary syndrome. Cardiac cath shows coronary disease but unchanged from prior cath from January 2024. 4. Coronary artery disease status post CABG and cardiac stents placement. 5. Diabetes mellitus. 6. Chronic kidney disease mineral bone disease. Phosphorus level 6.4 dated June 07, 2024. On PhosLo. 7. Mild to moderate aortic stenosis. Plan: Hemodialysis today. Maintain Demadex.
[2024-06-09 09:20] LABS: Glucose,Whole Blood 252 mg/dL (70-110)
[2024-06-09 10:20] LABS: HCT 32.9 % (39.6-50.0); HGB 11.3 g/dL (13.0-17.0); MCH 32.6 pg (27.0-32.0); MCHC 34.3 g/dL (32.0-37.0); MCV 94.8 FL (80.0-97.0); Mean Platelet Volume 11.1 FL (9.5-12.2); NRBC Per 100 WBC 0 X 10*3/uL (0.00-0.01); Platelet Count 157 X 10*3/uL (140-440); RBC 3.47 X 10*6/uL (4.40-5.60); RDW 13.2 % (11.5-14.5); WBC 6.08 X 10*3/uL (4.50-10.00)
[2024-06-09 11:26] LABS: BUN/Creat Ratio 9.78 Ratio (12.00-20.00); Blood Urea Nitrogen 40.1 mg/dL (9.0-27.0); Calcium 8.7 mg/dL (8.7-10.3); Carbon Dioxide 23.4 mmol/L (21.6-31.8); Chloride 94 mmol/L (96-109); Glucose 191 mg/dL (70-110); Magnesium 2.1 mg/dL (1.5-2.4); Potassium 4.2 mmol/L (3.5-5.5); Sodium 134 mmol/L (135-145)
[2024-06-09 12:13] LABS: Glucose,Whole Blood 278 mg/dL (70-110)
--- NOTE | 2024-06-09 16:56 | P.PN ---
Subjective Progress Note Date: 06/09/24 Hospital course: Patient is a very pleasant 73-year-old male with a past medical history of CAD status post CABG x2 in September 2023, multiple stents, ESRD on hemodialysis (TThSa), chronic diastolic CHF, insulin-dependent diabetes mellitus with insulin pump, COPD, hypertension, hyperlipidemia, and obstructive sleep apnea CPAP dependent nightly. He presented to the emergency department with a chief complaint of chest pain. Per ED documentation patient received a total of 4 sublingual nitroglycerin tablets, 324 mg of aspirin, Zofran, and fentanyl prior to arrival at our facility. Patient reports chest pain initially were improving after taking his 2 doses of sublingual nitro at home but returned after EMS arrival and was given another 2 doses of nitro along with fentanyl and states chest pain has not returned as of this time. Upon arrival to our facility, patient underwent evaluation in the emergency department. Vital signs upon arrival show blood pressure 144/62, heart rate 71, respiratory rate 18, temp 98.4 F, and SpO2 of 100% on 2 L. EKG was completed showing normal sinus rhythm at 69 bpm with a first-degree AV block with [place] interval of 290 ms and a right bundle branch block with the exception of rate and worsening first-degree AV block, EKG appears to be unchanged when compared to recent EKG completed 03/13/2024 upon personal review, interpretation, and comparison. Chest x-ray completed is negative for acute cardiopulmonary process. Labs completed and reviewed. CBC showing normocytic anemia with hemoglobin of 11.8. Coagulation profile normal findings. BMP showing sodium 133, chloride 95, BUN of 50, creatinine of 4.92, GFR of 11 patient is due for dialysis today. Magnesium 2.1. Calcium 8.4. Liver profile unremarkable. Troponin negative at less than 0.012 and proBNP 21,500. Patient admitted under our services with consultation to cardiology and nephrology for needed dialysis. Troponins were trended resulting at 0.018, less than 0.012 and less than 0.012. He was started on low intensity heparin infusion for treatment of unstable angina. On 06/08/2024 patient underwent left heart catheterization which revealed CAD with patent left main stent and 50% proximal LAD, 80% mid LAD, and 20 to 30% ramus with 100% circum flex and 30% RCA stenosis, elevated left-sided filling pressures and patent conway to LAD known SVG to ramus occluded with mild to moderate aortic stenosis. The reported CAD is reported to be appear unchanged from prior 02/21 and sales and marketing analyst stated symptoms likely related to flash pulmonary edema. Patient underwent dialysis on 06/07/2024 and is scheduled to undergo dialysis again today. Physical exam: Patient seen and fully evaluated at bedside this morning. Currently he reports feeling well and is awaiting to undergo dialysis today as scheduled. Vital signs reviewed and stable. General: Nontoxic, no distress and appears stated age. Derm: Skin warm and dry, normal coloration for ethnicity. Head: Atraumatic, normocephalic and symmetric. Eyes: EOM's intact, no lid lag, and anicteric sclera Mouth: no lip lesions, mucus membranes moist Cardiovascular: regular rate and rhythm with normal S1S2, systolic murmur, positive posterior tibial pulses bilaterally, and cap refill < 2 seconds. AV fistula left upper extremity with bruit and thrill intact. Lungs: Respirations even, regular, and unlabored on room air. Lungs CTA bilaterally, no rhonchi, no rales, no wheezing, and no accessory muscle usage. Abdominal: soft, nontender to palpation, no guarding, no appreciable organomegaly Ext: ROM intact. No gross muscle atrophy, 1+ BLE edema, no contractures Neuro: Speech clear, face symmetrical and CN II-XII grossly intact with no noted focal neuro deficits Psych: Alert and oriented to person, place, time, and situation. Appropriate and pleasant affect. Assessment and Plan of Care: Unstable angina Mild diastolic heart failure exacerbation CAD with extensive cardiac history including CABG x 2 followed by multiple stents -Cardiology following, awaiting cardiac clearance for discharge. -On 06/08/2024 patient underwent left heart catheterization which revealed CAD with patent left main stent and 50% proximal LAD, 80% mid LAD, and 20 to 30% ramus with 100% circumflex and 30% RCA stenosis, elevated left-sided filling pressures and patent conway to LAD known SVG to ramus occluded with mild to moderate aortic stenosis. The reported CAD is reported to be appear unchanged from prior 02/21 and sales and marketing analyst stated symptoms likely related to flash pulmona ry edema. -Continue telemetry monitoring -Troponins were trended resulting at 0.018, less than 0.012 and less than 0.012. -Continue cardiac medication regimen with aspirin 81 mg daily, Plavix 75 mg d aily, Zetia 10 mg daily, isosorbide mononitrate 60 mg daily, metoprolol 25 mg twice daily, rosuvastatin 20 mg nightly, and torsemide 40 mg daily on nondialysis days. -Echocardiogram completed showing reduced EF of 40 to 45% with mild to moderate mitral regurgitation and moderate aortic stenosis. ESRD Hypochloremic hyponatremia, secondary to volume overload High anion gap metabolic alkalosis, secondary to above Anemia of chronic disease -Nephrology consulted and discussed plan of care with Dr. Posey stating patient cleared from nephrology perspective once cleared by cardiology for discharge. -Patient underwent dialysis on 06/07/2024 and is scheduled to undergo dialysis again today. Insulin-dependent diabetes mellitus with hyperglycemia -Patient placed on glycemic protocol with [id number] glucose checks 4 times daily (with meals and at bedtime) -Order placed for patient to continue use of home insulin pump. Obstructive sleep apnea Continue use of CPAP nightly and while napping. COPD, not in acute exacerbation Continue nebulizer treatments every 4 hours as needed for wheezing/shortness of breath. Patient to be provided with oxygen as needed to maintain SpO2 equal to or greater than 92%. Hypertension Monitor vital signs and continue daily medication regimen with isosorbide mononitrate 60 mg daily, metoprolol 25 mg twice daily, and torsemide 40 mg daily on nondialysis days. Hyperlipidemia Continue daily medication regimen with rosuvastatin 20 mg nightly and Zetia 10 mg daily. BPH Continue Flomax 0.4 mg nightly. Data and imaging reviewed: -Echocardiogram completed showing reduced EF of 40 to 45% with mild to moderate mitral regurgitation and moderate aortic stenosis. -Morning labs reviewed. CBC showing stable normocytic anemia with hemoglobin of 11.3. BMP showing hypochloremic hyponatremia with sodium of 134 and chloride of 94 and elevated anion gap of 16.60. BUN 40.1, creatinine 4.1, and GFR of 15 (patient to undergo dialysis today). Magnesium 2.1. Blood glucose 191. -Vital signs reviewed. Blood pressure 147/67, heart rate 61, respiratory rate 16, temp 97.9 F, and SpO2 of 99% on room air. CODE STATUS: Full code DVT prophylaxis: Heparin Anticipated discharge date: Pending clinical course Anticipated discharge place: Home Patient was seen independently by Nurse Practitioner. This document was prepared using [employer] dictation software. Please allow for errors in internal controls specialist while rare they do occur. Manuel Ivey CHIEF OPERATIONS OFFICER rendered care for this patient independently, reviewed the findings and plan as documented in the note above and agree with plan. I did not physically speak with or examine the patient on this date. Objective - Vital Signs Vital signs: Vital Signs Temp 97.9 F 06/09/24 07:00 Pulse 61 06/09/24 07:00 Resp 16 06/09/24 07:00 BP 147/67 06/09/24 07:00 Pulse Ox 99 06/09/24 07:00 FiO2 Intake & Output 06/08/24 06/09/24 06/09/24 18:59 06:59 18:59 Intake Total 212.912 720 Balance 212.912 720 Intake: IV 200 Intake, IV Titration 12.912 Amount Heparin Sod,Pork in 0.45% 12.912 NaCl 25,000 unit In 0.45 % NaCl 1 250ml.bag @ 10. 399 UNITS/KG/HR 10 mls/hr IV .Q24H [facility] Rx#: [id number] Oral 720 Other: Voiding Method Toilet Toilet # Voids 2 - Labs CBC & Chem 7: 06/09/24 05:47 06/09/24 05:47 Labs: Abnormal Lab Results - Last 24 Hours (Table) 06/08/24 06/08/24 06/08/24 Range/Units 05:32 05:32 11:58 RBC 3.46 L (4.40-5.60) X 10*6/uL Hgb 11.0 L (13.0-17.0) g/dL Hct 33.5 L (39.6-50.0) % Anion Gap 12.30 H (4.00-12.00) mmol/L Creatinine 3.0 H (0.6-1.5) mg/dL Est GFR (CKD-EPI) 21 L (>=60) BUN/Creatinine Ratio 8.97 L (12.00-20.00) Ratio Glucose 211 H (70-110) mg/dL POC Glucose (mg/dL) 190 H (70-110) mg/dL Calcium 7.1 L (8.7-10.3) mg/dL 06/08/24 06/08/24 06/09/24 Range/Units 17:05 20:08 05:47 RBC (4.40-5.60) X 10*6/uL Hgb (13.0-17.0) g/dL Hct (39.6-50.0) % Anion Gap (4.00-12.00) mmol/L Creatinine (0.6-1.5) mg/dL Est GFR (CKD-EPI) (>=60) BUN/Creatinine Ratio (12.00-20.00) Ratio Glucose (70-110) mg/dL POC Glucose (mg/dL) 202 H 240 H 193 H (70-110) mg/dL Calcium (8.7-10.3) mg/dL
[2024-06-09 16:58] LABS: Glucose,Whole Blood 130 mg/dL (70-110)
[2024-06-09 19:51] LABS: Glucose,Whole Blood 243 mg/dL (70-110)
[2024-06-09] MEDS: SACUBITRIL/VALSARTAN 24 MG-26 MG TABLET PO SCH (21:38)
[2024-06-09] MEDS: guaiFENesin-DM 100-10MG/5ML 10 ML CUP PO PRN (21:38)
[2024-06-10] MEDS: ALPRAZolam 0.25 MG TAB PO PRN (00:35)
[2024-06-10] MEDS: ALPRAZolam 0.5 MG TAB PO PRN (03:18)
[2024-06-10 06:08] LABS: Glucose,Whole Blood 265 mg/dL (70-110)
[2024-06-10 07:13] VITALS: BP 129/58; RESP 16; TEMP 97.7
--- NOTE | 2024-06-10 07:58 | P.PN ---
Subjective Progress Note Date: 06/09/24 This is a 73-year-old male with a past medical history significant for coronary artery disease with previous CABG and subsequent stenting, chronic kidney disease on hemodialysis, hypertension, hyperlipidemia, and diabetes. Patient follows in the office with Dr. Castle. We have been asked to see the patient in consultation for chest pain. Patient examined at the bedside in the emergency room. Patient states yesterday he began having chest pain while he was at home sitting in his chair. He states that he took a nitro and then fell asleep. He states that when he woke up he continued to have chest pain. He states he had radiation open to his neck. He also reports feeling short of breath and felt like he was having gas pains as well. He took 2 more nitro and an aspirin and came to the hospital for further evaluation. At the time of examination, the patient denies any chest pain or pressure. DIAGNOSTICS: - EKG reveals sinus mechanism with right bundle branch block. - Chest xray negative for acute process - Laboratory data: WBC 5.0. Hemoglobin 11.8. Platelet count 169. Sodium 133. Potassium 4.4. BUN 50. Creatinine 4.92. Troponin negative x 2. proBNP 21,500 - Current home cardiac medications include metoprolol 25 mg in the morning and 12.5 mg at night, rosuvastatin 10 mg at night, aspirin 81 mg daily, Plavix 75 mg daily, Zetia 10 mg daily, Imdur 30 mg daily, Demadex 40 mg Tuesday, Ranexa 500 mg twice a day - Most recent echocardiogram obtained in January 2024 revealed ejection fraction 50 to 55%, mild to moderate aortic stenosis, moderate mitral regurgitation, mild tricuspid regurgitation -Patient underwent two-vessel CABG on October 17, 2023 (LAD and ramus intermedius) - Cardiac catheterization history: February 21, 2024 revealing 70% left main steno sis, 50% proximal LAD, 80% mid LAD, 20 to 30% ramus, 100% circumflex, 80% RCA stenosis. Elevated left-sided filling pressures. iFR normal of left main into ramus. iFR abnormal of RCA. Patient underwent stenting of the proximal to mid RCA June 09, 2024 Cardiac catheterization showed patent TIAN to LAD, known SVG to ramus occluded, moderate aortic stenosis, patent left main stent, 50% proximal LAD, 80% mid LAD, 30% ramus, 100% circumflex, 30% RCA disease. Recommendations were made by the primary coordinator mining products to treat patient with intensified medical management. PHYSICAL EXAM: VITAL SIGNS: Reviewed. GENERAL: Well-developed in no acute distress. HEENT: Head is normocephalic. Pupils are equal, round. Sclerae anicteric. Mucous membranes of the mouth are moist. Neck supple. No JVD or thyromegaly LUNGS: Respirations even and unlabored. Lungs essentially clear to auscultation bilaterally. HEART: Regular rate and rhythm. S1 and S2 heard. Systolic murmur noted ABDOMEN: Soft. Nondistended. Nontender. EXTREMITIES: Normal range of motion. No clubbing or cyanosis. Peripheral pulses intact. No lower extremity edema NEUROLOGIC: Awake and alert. Oriented x 3. ASSESSMENT: Unstable angina Coronary artery disease with recent CABG x 2 vessels, left internal thoracic artery to LAD and saphenous vein from aorta to ramus intermedius, September 2023 Ischemic cardiomyopathy EF 40 to 45%, HFmrEF, acute on chronic exacerbation, Status post cardiac catheterization February 21, 2024 with stenting of the proximal to mid RCA End-stage renal disease on hemodialysis Hypertension Hyperlipidemia Diabetes Mild to moderate aortic stenosis and moderate mitral regurgitation Intolerant to statins Echo shows EF 40 to 45%, moderate aortic stenosis, moderate mitral regurgitation Plan Aspirin 81 mg, Plavix 75 mg, Zetia 10 mg. Outpatient evolocumab Imdur 60 mg, metoprolol tartrate 25 mg twice daily, Add Entresto 24/26 mg twice daily On torsemide 40 mg daily Continue hemodialysis as per nephrology recommendations If patient has recurrent hospital admissions, would recommend setting up HFMS device to monitor his fluid status better. I am adding Entresto for better blood pressure control and cardiomyopathy. If patient becomes hyperkalemic, may consider discontinuing it. Objective - Vital Signs Vital signs: Vital Signs Temp 97.7 F 06/10/24 06:55 Pulse 66 06/10/24 06:55 Resp 16 06/10/24 06:55 BP 129/58 06/10/24 06:55 Pulse Ox 99 06/10/24 06:55 FiO2 Intake & Output 06/09/24 06/10/24 06/10/24 18:59 06:59 18:59 Intake Total 3154 Output Total 6800 Balance -3646 Intake: Intake, IV Titration 0 Amount Heparin Sod,Pork in 0.45% 0 NaCl 25,000 unit In 0.45 % NaCl 1 250ml.bag @ 10. 399 UNITS/KG/HR 10 mls/hr IV .Q24H [facility] Rx#: [id number] Oral 354 Hemodialysis 2800 Output: Hemodialysis 2800 Hemodialysis Net Amount 4000 Other: Voiding Method Toilet Toilet # Voids 5 2 - Labs CBC & Chem 7: 06/09/24 05:47 06/09/24 05:47 Labs: Abnormal Lab Results - Last 24 Hours (Table) 06/09/24 06/09/24 06/09/24 Range/Units 05:47 05:47 09:18 RBC 3.47 L (4.40-5.60) X 10*6/uL Hgb 11.3 L (13.0-17.0) g/dL Hct 32.9 L (39.6-50.0) % MCH 32.6 H (27.0-32.0) pg Sodium 134 L (135-145) mmol/L Chloride 94 L (96-109) mmol/L Anion Gap 16.60 H (4.00-12.00) mmol/L BUN 40.1 H (9.0-27.0) mg/dL Creatinine 4.1 H (0.6-1.5) mg/dL Est GFR (CKD-EPI) 15 L (>=60) BUN/Creatinine Ratio 9.78 L (12.00-20.00) Ratio Glucose 191 H (70-110) mg/dL POC Glucose (mg/dL) 252 H (70-110) mg/dL 06/09/24 06/09/24 06/09/24 Range/Units 12:12 16:57 19:49 RBC (4.40-5.60) X 10*6/uL Hgb (13.0-17.0) g/dL Hct (39.6-50.0) % MCH (27.0-32.0) pg Sodium (135-145) mmol/L Chloride (96-109) mmol/L Anion Gap (4.00-12.00) mmol/L BUN (9.0-27.0) mg/dL Creatinine (0.6-1.5) mg/dL Est GFR (CKD-EPI) (>=60) BUN/Creatinine Ratio (12.00-20.00) Ratio Glucose (70-110) mg/dL POC Glucose (mg/dL) 278 H 130 H 243 H (70-110) mg/dL 06/10/24 Range/Units 06:06 RBC (4.40-5.60) X 10*6/uL Hgb (13.0-17.0) g/dL Hct (39.6-50.0) % MCH (27.0-32.0) pg Sodium (135-145) mmol/L Chloride (96-109) mmol/L Anion Gap (4.00-12.00) mmol/L BUN (9.0-27.0) mg/dL Creatinine (0.6-1.5) mg/dL Est GFR (CKD-EPI) (>=60) BUN/Creatinine Ratio (12.00-20.00) Ratio Glucose (70-110) mg/dL POC Glucose (mg/dL) 265 H (70-110) mg/dL
--- NOTE | 2024-06-10 07:59 | P.PN ---
Subjective Progress Note Date: 06/10/24 This is a 73-year-old male with a past medical history significant for coronary artery disease with previous CABG and subsequent stenting, chronic kidney disease on hemodialysis, hypertension, hyperlipidemia, and diabetes. Patient follows in the office with Dr. Castle. We have been asked to see the patient in consultation for chest pain. Patient examined at the bedside in the emergency room. Patient states yesterday he began having chest pain while he was at home sitting in his chair. He states that he took a nitro and then fell asleep. He states that when he woke up he continued to have chest pain. He states he had radiation open to his neck. He also reports feeling short of breath and felt like he was having gas pains as well. He took 2 more nitro and an aspirin and came to the hospital for further evaluation. At the time of examination, the patient denies any chest pain or pressure. DIAGNOSTICS: - EKG reveals sinus mechanism with right bundle branch block. - Chest xray negative for acute process - Laboratory data: WBC 5.0. Hemoglobin 11.8. Platelet count 169. Sodium 133. Potassium 4.4. BUN 50. Creatinine 4.92. Troponin negative x 2. proBNP 21,500 - Current home cardiac medications include metoprolol 25 mg in the morning and 12.5 mg at night, rosuvastatin 10 mg at night, aspirin 81 mg daily, Plavix 75 mg daily, Zetia 10 mg daily, Imdur 30 mg daily, Demadex 40 mg Tuesday, Ranexa 500 mg twice a day - Most recent echocardiogram obtained in January 2024 revealed ejection fraction 50 to 55%, mild to moderate aortic stenosis, moderate mitral regurgitation, mild tricuspid regurgitation -Patient underwent two-vessel CABG on October 17, 2023 (LAD and ramus intermedius) - Cardiac catheterization history: February 21, 2024 revealing 70% left main steno sis, 50% proximal LAD, 80% mid LAD, 20 to 30% ramus, 100% circumflex, 80% RCA stenosis. Elevated left-sided filling pressures. iFR normal of left main into ramus. iFR abnormal of RCA. Patient underwent stenting of the proximal to mid RCA June 09, 2024 Cardiac catheterization showed patent TIAN to LAD, known SVG to ramus occluded, moderate aortic stenosis, patent left main stent, 50% proximal LAD, 80% mid LAD, 30% ramus, 100% circumflex, 30% RCA disease. Recommendations were made by the primary glass installer technician to treat patient with intensified medical management. June 10, 2024 Blood pressure is better controlled on Entresto. Patient reports feeling slightly better as compared to the time he was admitted to the hospital. PHYSICAL EXAM: VITAL SIGNS: Reviewed. GENERAL: Well-developed in no acute distress. HEENT: Head is normocephalic. Pupils are equal, round. Sclerae anicteric. Mucous membranes of the mouth are moist. Neck supple. No JVD or thyromegaly LUNGS: Respirations even and unlabored. Lungs essentially clear to auscultation bilaterally. HEART: Regular rate and rhythm. S1 and S2 heard. Systolic murmur noted ABDOMEN: Soft. Nondistended. Nontender. EXTREMITIES: Normal range of motion. No clubbing or cyanosis. Peripheral pulses intact. No lower extremity edema NEUROLOGIC: Awake and alert. Oriented x 3. ASSESSMENT: Unstable angina Coronary artery disease with recent CABG x 2 vessels, left internal thoracic artery to LAD and saphenous vein from aorta to ramus intermedius, September 2023 Ischemic cardiomyopathy EF 40 to 45%, HFmrEF, acute on chronic exacerbation, Status post cardiac catheterization February 21, 2024 with stenting of the proximal to mid RCA End-stage renal disease on hemodialysis Hypertension Hyperlipidemia Diabetes Mild to moderate aortic stenosis and moderate mitral regurgitation Intolerant to statins Echo shows EF 40 to 45%, moderate aortic stenosis, moderate mitral regurgitation Plan Aspirin 81 mg, Plavix 75 mg, Zetia 10 mg. Outpatient evolocumab Imdur 60 mg, metoprolol tartrate 25 mg twice daily, Add Entresto 24/26 mg twice daily On torsemide 40 mg daily Continue hemodialysis as per nephrology recommendations If patient has recurrent hospital admissions, would recommend setting up HFMS device to monitor his fluid status better. I am adding Entresto for better blood pressure control and cardiomyopathy. If patient becomes hyperkalemic, may consider discontinuing it. Patient is cleared to be discharged from cardiac standpoint. Cardiology team will sign off. Please reconsult us in case of any question Objective - Vital Signs Vital signs: Vital Signs Temp 97.7 F 06/10/24 06:55 Pulse 66 06/10/24 06:55 Resp 16 06/10/24 06:55 BP 129/58 11/10/24 06:55 Pulse Ox 99 06/10/24 06:55 FiO2 Intake & Output 06/09/24 06/10/24 06/10/24 18:59 06:59 18:59 Intake Total 3154 Output Total 6800 Balance -3646 Intake: Intake, IV Titration 0 Amount Heparin Sod,Pork in 0.45% 0 NaCl 25,000 unit In 0.45 % NaCl 1 250ml.bag @ 10. 399 UNITS/KG/HR 10 mls/hr IV .Q24H [facility] Rx#: [id number] Oral 354 Hemodialysis 2800 Output: Hemodialysis 2800 Hemodialysis Net Amount 4000 Other: Voiding Method Toilet Toilet # Voids 5 2 - Labs CBC & Chem 7: 06/09/24 05:47 06/09/24 05:47 Labs: Abnormal Lab Results - Last 24 Hours (Table) 06/09/24 06/09/24 06/09/24 Range/Units 05:47 05:47 09:18 RBC 3.47 L (4.40-5.60) X 10*6/uL Hgb 11.3 L (13.0-17.0) g/dL Hct 32.9 L (39.6-50.0) % MCH 32.6 H (27.0-32.0) pg Sodium 134 L (135-145) mmol/L Chloride 94 L (96-109) mmol/L Anion Gap 16.60 H (4.00-12.00) mmol/L BUN 40.1 H (9.0-27.0) mg/dL Creatinine 4.1 H (0.6-1.5) mg/dL Est GFR (CKD-EPI) 15 L (>=60) BUN/Creatinine Ratio 9.78 L (12.00-20.00) Ratio Glucose 191 H (70-110) mg/dL POC Glucose (mg/dL) 252 H (70-110) mg/dL 06/09/24 06/09/24 06/09/24 Range/Units 12:12 16:57 19:49 RBC (4.40-5.60) X 10*6/uL Hgb (13.0-17.0) g/dL Hct (39.6-50.0) % MCH (27.0-32.0) pg Sodium (135-145) mmol/L Chloride (96-109) mmol/L Anion Gap (4.00-12.00) mmol/L BUN (9.0-27.0) mg/dL Creatinine (0.6-1.5) mg/dL Est GFR (CKD-EPI) (>=60) BUN/Creatinine Ratio (12.00-20.00) Ratio Glucose (70-110) mg/dL POC Glucose (mg/dL) 278 H 130 H 243 H (70-110) mg/dL 06/10/24 Range/Units 06:06 RBC (4.40-5.60) X 10*6/uL Hgb (13.0-17.0) g/dL Hct (39.6-50.0) % MCH (27.0-32.0) pg Sodium (135-145) mmol/L Chloride (96-109) mmol/L Anion Gap (4.00-12.00) mmol/L BUN (9.0-27.0) mg/dL Creatinine (0.6-1.5) mg/dL Est GFR (CKD-EPI) (>=60) BUN/Creatinine Ratio (12.00-20.00) Ratio Glucose (70-110) mg/dL POC Glucose (mg/dL) 265 H (70-110) mg/dL
--- NOTE | 2024-06-10 09:42 | P.PN ---
Subjective Patient is seen in follow-up for end-stage renal disease. He is maintained on hemodialysis on Tuesday schedule. No problems with dialysis yesterday. Tolerated 2 L ultrafiltration. Denies chest pain or shortness of breath. Wants to go home. Vital signs are stable. General: No acute distress. HEENT: Head exam is unremarkable. LUNGS: No audible rhonchi or wheezes. HEART: Rate and Rhythm are regular. ABDOMEN: Nontender. EXTREMITITES: No edema. Objective - Vital Signs Vital signs: Vital Signs Temp 97.7 F 06/10/24 06:55 Pulse 66 06/10/24 06:55 Resp 16 06/10/24 06:55 BP 129/58 06/10/24 06:55 Pulse Ox 99 06/10/24 06:55 FiO2 Intake & Output 06/09/24 06/10/24 06/10/24 18:59 06:59 18:59 Intake Total 3154 Output Total 6800 Balance -3646 Intake: Intake, IV Titration 0 Amount Heparin Sod,Pork in 0.45% 0 NaCl 25,000 unit In 0.45 % NaCl 1 250ml.bag @ 10. 399 UNITS/KG/HR 10 mls/hr IV .Q24H [facility] Rx#: [id number] Oral 354 Hemodialysis 2800 Output: Hemodialysis 2800 Hemodialysis Net Amount 4000 Other: Voiding Method Toilet Toilet # Voids 5 2 - Labs CBC & Chem 7: 06/09/24 05:47 06/09/24 05:47 Labs: Abnormal Lab Results - Last 24 Hours (Table) 06/09/24 06/09/24 06/09/24 Range/Units 05:47 05:47 12:12 RBC 3.47 L (4.40-5.60) X 10*6/uL Hgb 11.3 L (13.0-17.0) g/dL Hct 32.9 L (39.6-50.0) % MCH 32.6 H (27.0-32.0) pg Sodium 134 L (135-145) mmol/L Chloride 94 L (96-109) mmol/L Anion Gap 16.60 H (4.00-12.00) mmol/L BUN 40.1 H (9.0-27.0) mg/dL Creatinine 4.1 H (0.6-1.5) mg/dL Est GFR (CKD-EPI) 15 L (>=60) BUN/Creatinine Ratio 9.78 L (12.00-20.00) Ratio Glucose 191 H (70-110) mg/dL POC Glucose (mg/dL) 278 H (70-110) mg/dL 06/09/24 06/09/24 06/10/24 Range/Units 16:57 19:49 06:06 RBC (4.40-5.60) X 10*6/uL Hgb (13.0-17.0) g/dL Hct (39.6-50.0) % MCH (27.0-32.0) pg Sodium (135-145) mmol/L Chloride (96-109) mmol/L Anion Gap (4.00-12.00) mmol/L BUN (9.0-27.0) mg/dL Creatinine (0.6-1.5) mg/dL Est GFR (CKD-EPI) (>=60) BUN/Creatinine Ratio (12.00-20.00) Ratio Glucose (70-110) mg/dL POC Glucose (mg/dL) 130 H 243 H 265 H (70-110) mg/dL Assessment and Plan Plan: Assessment: 1. End-stage renal disease maintained on hemodialysis on Tuesday schedule. 2. Hypertension with chronic kidney disease. Stable. 3. Chest pain. Concern for acute coronary syndrome. Cardiac cath shows coronary disease but unchanged from prior cath from January 2024. 4. Coronary artery disease status post CABG and cardiac stents placement. 5. Diabetes mellitus. 6. Chronic kidney disease mineral bone disease. Phosphorus level 6.4 dated June 07, 2024. On PhosLo. 7. Mild to moderate aortic stenosis. Plan: Hemodialysis Tuesday. Maintain Demadex.
[2024-06-10 09:44] VITALS: PULSE 70
--- NOTE | 2024-06-10 17:17 | P.DS ---
Providers Date of admission: 06/07/24 07:18 Expected date of discharge: 06/10/24 Attending physician: Harpal Richardson MD Consults: 06/07/24 07:06 Consult Physician Urgent Consulting Provider: Donnell Radford Consult Reason/Comments: chest pain Do you want consulting provider notified?: Yes 06/07/24 07:10 Consult Physician Urgent Consulting Provider: Simba Posey Consult Reason/Comments: Dialysis Do you want consulting provider notified?: Yes [facility] care [facility] Course: Discharge Diagnosis: Unstable angina. On 06/08/2024 patient underwent left heart catheterization which revealed CAD with patent left main stent and 50% proximal LAD, 80% mid LAD, and 20 to 30% ramus with 100% circumflex and 30% RCA stenosis, elevated left-sided filling pressures and patent conway to LAD known SVG to ramus occluded with mild to moderate aortic stenosis. The reported CAD is reported to be appear unchanged from prior 02/21 and migration agent stated symptoms likely related to flash pulmonary edema. Echocardiogram completed showing reduced EF of 40 to 45% with mild to moderate mitral regurgitation and moderate aortic stenosis. Medical Receptionist Biller making medication changes increasing metoprolol to 25 mg twice daily, and Imdur to 60 mg daily and starting patient on Entresto 24-26 mg tablets twice daily. Mild diastolic heart failure exacerbation CAD with extensive cardiac history including CABG x 2 followed by multiple stents ESRD Hypochloremic hyponatremia, secondary to volume overload High anion gap metabolic alkalosis, secondary to above Anemia of chronic disease Insulin-dependent diabetes mellitus with hyperglycemia Patient to continue use of home insulin pump. Obstructive sleep apnea. Continue use of CPAP nightly and while napping. COPD, not in acute exacerbation. Continue Ventolin inhaler 2 puffs every 4 hours as needed for wheezing/shortness of breath. Hypertension. Monitor vital signs and continue daily medication regimen with isosorbide mononitrate 60 mg daily, metoprolol 25 mg twice daily, and torsemide 40 mg daily on nondialysis days. Hyperlipidemia. Continue daily medication regimen with rosuvastatin 20 mg nightly and Zetia 10 mg daily. BPH Continue Flomax 0.4 mg nightly. Hospital course: Patient is a very pleasant 73-year-old male with a past medical history of CAD status post CABG x2 in September 2023, multiple stents, ESRD on hemodialysis (TThSa), chronic diastolic CHF, insulin-dependent diabetes mellitus with insulin pump, COPD, hypertension, hyperlipidemia, and obstructive sleep apnea CPAP dependent nightly. He presented to the emergency department with a chief complaint of chest pain. Per ED documentation patient received a total of 4 sublingual nitroglycerin tablets, 324 mg of aspirin, Zofran, and fentanyl prior to arrival at our facility. Patient reports chest pain initially were improving after taking his 2 doses of sublingual nitro at home but returned after EMS arrival and was given another 2 doses of nitro along with fentanyl and states chest pain has not returned as of this time. Upon arrival to our facility, patient underwent evaluation in the emergency department. Vital signs upon arrival show blood pressure 144/62, heart rate 71, respiratory rate 18, temp 98.4 F, and SpO2 of 100% on 2 L. EKG was completed showing normal sinus rhythm at 69 bpm with a first-degree AV block with WI interval of 290 ms and a right bundle branch block with the exception of rate and worsening first-degree AV block, EKG appears to be unchanged when compared to recent EKG completed 03/13/2024 upon personal review, interpretation, and comparison. Chest x-ray completed is negative for acute cardiopulmonary process. Labs completed and reviewed. CBC showing normocytic anemia with hemoglobin of 11.8. Coagulation profile normal findings. BMP showing sodium 133, chloride 95, BUN of 50, creatinine of 4.92, GFR of 11 patient is due for dialysis today. Magnesium 2.1. Calcium 8.4. Liver profile unremarkable. Troponin negative at less than 0.012 and proBNP 21,500. Patient admitted under our services with consultation to cardiology and nephrology for needed dialysis. Troponins were trended resulting at 0.018, less than 0.012 and less than 0.012. He was started on low intensity heparin infusion for treatment of unstable angina. On 06/08/2024 patient underwent left heart catheterization which revealed CAD with patent left main stent and 50% proximal LAD, 80% mid LAD, and 20 to 30% ramus with 100% circumflex and 30% RCA stenosis, elevated left-sided filling pressures and patent conway to LAD known SVG to ramus occluded with mild to moderate aortic stenosis. The reported CAD is reported to be appear unchanged from prior 02/21 and migration agent stated symptoms likely related to flash pulmonary edema. Patient underwent dialysis on 06/07/2024 and 06/09/24. Pt cleared from nephrology perspective and to continue scheduled dialysis treatments Tuesday s//Fridays.. Medical Receptionist Biller making medication changes increasing metoprolol to 25 mg twice daily, and Imdur to 60 mg daily and starting patient on Entresto 24-26 mg tablets twice daily. Patient free from any complaints at this time and is medically optimized and stable for discharge home. Follow-up outpatient with PCP in 1 to 2 days, migration agent in 1 week, and sql bi developer in 1 week. Patient sent home with a prescription for repeat BMP in 3 days to follow-up on potassium levels after being started on Entresto. Physical exam: Vital signs reviewed and stable. General: Nontoxic, no distress and appears stated age. Derm: Skin warm and dry, normal coloration for ethnicity. Head: Atraumatic, normocephalic and symmetric. Eyes: EOM's intact, no lid lag, and anicteric sclera Mouth: no lip lesions, mucus membranes moist Cardiovascular: regular rate and rhythm with normal S1S2, systolic murmur, p ositive posterior tibial pulses bilaterally, and cap refill < 2 seconds. AV fistula left upper extremity with bruit and thrill intact. Lungs: Respirations even, regular, and unlabored on room air. Lungs CTA bilaterally, no rhonchi, no rales, no wheezing, and no accessory muscle usage. Abdominal: soft, nontender to palpation, no guarding, no appreciable or ganomegaly Ext: ROM intact. No gross muscle atrophy, 1+ BLE edema, no contractures Neuro: Speech clear, face symmetrical and CN II-XII grossly intact with no noted focal neuro deficits Psych: Alert and oriented to person, place, time, and situation. Appropriate and pleasant affect. A total of 35 minutes of time were spent preparing this complex discharge summary. Pt was discharged on 06/10/2024 at 9:12 AM. Patient was seen independently by Nurse Practitioner. This document was prepared using Penango dictation software. Please allow for errors in rn family practice while rare they do occur. Manuel Ivey NP rendered care for this patient independently, reviewed the findings and plan as documented in the note above. I did not physically speak with or examine the patient on this date. Patient Condition at Discharge: Stable Plan - Discharge Summary New Discharge Prescriptions: New Sacubitril/Valsartan [Entresto 24 mg-26 mg Tablet] 1 each PO BID 30 Days #60 tab Metoprolol Tartrate [Lopressor] 25 mg PO BID 30 Days #60 tab Isosorbide Mononitrate ER [Imdur] 60 mg PO DAILY 30 Days #30 tab Continue Ezetimibe [Zetia] 10 mg PO DAILY Ferrous Sulfate [Iron (65 MG Elemental)] 325 mg PO DAILY Insulin Aspart (For Pump) [NovoLOG (For Pump)] 0.01 unit SQ-PUMP CONTINUOUS Pramipexole [Mirapex] 0.5 mg PO BID PRN PRN Reason: Restless legs Albuterol Inhaler [Ventolin Hfa Inhaler] 2 puff INHALATION RT-Q4H PRN PRN Reason: Shortness Of Breath Glucagon Emergency Kit 1 mg IM ONCE PRN PRN Reason: Hypoglycemia Escitalopram [Lexapro] 10 mg PO DAILY Cetirizine HCl [Zyrtec] 10 mg PO DAILY Rosuvastatin [Crestor] 10 mg PO HS Aspirin EC [Ecotrin Low Dose] 81 mg PO DAILY Tamsulosin [Flomax] 0.4 mg PO HS ALPRAZolam [Xanax] 0.5 mg PO HS PRN PRN Reason: Severe Anxiety Cholecalciferol [Vitamin D3 (25 Mcg = 1000 Iu)] 50 mcg PO DAILY Folic Acid/Vit B Complex and C [Nephro-Pooja Tablet] 0.8 mg PO DAILY Torsemide [Demadex] 40 mg PO SUMOWEFR Clopidogrel [Plavix] 75 mg PO DAILY #30 tab Nitroglycerin Sl Tabs [Nitrostat] 0.4 mg SUBLINGUAL Q5M PRN #25 tab PRN Reason: Chest Pain Topiramate [Topamax] 25 mg PO BID Ranolazine [Ranexa] 500 mg PO BID Discontinued methylPREDNISolone [Medrol Dose Pack] See Taper PO DIRECTED Metoprolol Tartrate [Lopressor] 12.5 mg PO HS Isosorbide Mononitrate ER [Imdur] 30 mg PO DAILY Metoprolol Tartrate [Lopressor] 25 mg PO DAILY Discharge Medication List Ezetimibe [Zetia] 10 mg PO DAILY 05/19/16 [History] Ferrous Sulfate [Iron (65 MG Elemental)] 325 mg PO DAILY 05/19/16 [History] Insulin Aspart (For Pump) [NovoLOG (For Pump)] 0.01 unit SQ-PUMP CONTINUOUS 05/28/18 [History] Pramipexole [Mirapex] 0.5 mg PO BID PRN 05/02/19 [History] Albuterol Inhaler [Ventolin Hfa Inhaler] 2 puff INHALATION RT-Q4H PRN 08/10/21 [History] Aspirin EC [Ecotrin Low Dose] 81 mg PO DAILY 02/21/22 [History] Glucagon Emergency Kit 1 mg IM ONCE PRN 02/21/22 [History] Escitalopram [Lexapro] 10 mg PO DAILY 01/01/23 [History] ALPRAZolam [Xanax] 0.5 mg PO HS PRN 06/17/23 [History] Cholecalciferol [Vitamin D3 (25 Mcg = 1000 Iu)] 50 mcg PO DAILY 06/17/23 [Hi story] Tamsulosin [Flomax] 0.4 mg PO HS 06/17/23 [History] Cetirizine HCl [Zyrtec] 10 mg PO DAILY 09/22/23 [History] Folic Acid/Vit B Complex and C [Nephro-Pooja Tablet] 0.8 mg PO DAILY 09/22/23 [History] Torsemide [Demadex] 40 mg PO SUMOWEFR 09/22/23 [History] Clopidogrel [Plavix] 75 mg PO DAILY #30 tab 10/24/23 [Rx] Nitroglycerin Sl Tabs [Nitrostat] 0.4 mg SUBLINGUAL Q5M PRN #25 tab 02/22/24 [Rx] Ranolazine [Ranexa] 500 mg PO BID 06/07/24 [History] Rosuvastatin [Crestor] 10 mg PO HS 06/07/24 [History] Topiramate [Topamax] 25 mg PO BID 06/07/24 [History] Isosorbide Mononitrate ER [Imdur] 60 mg PO DAILY 30 Days #30 tab 06/10/24 [Rx] Metoprolol Tartrate [Lopressor] 25 mg PO BID 30 Days #60 tab 06/10/24 [Rx] Sacubitril/Valsartan [Entresto 24 mg-26 mg Tablet] 1 each PO BID 30 Days #60 tab 06/10/24 [Rx] Follow up Appointment(s)/Referral(s): Shiraz Castle DO [STAFF PHYSICIAN] - 1 Week (please call tomorrow for an appointment ) Marlon Valentino DO [Primary Care Provider] - 1-2 days (please call for an appointment ) Simba Posey DO [STAFF PHYSICIAN] - 1 Week Ambulatory/Diagnostic Orders: Basic Metabolic Panel [LAB.AMB] Time Frame: 3 Days, Location: None Selected Patient Instructions/Handouts: Heart Failure (DC), Dialysis Diet (DC), End Stage Kidney Disease (DC) Activity/Diet/Wound Care/Special Instructions: Activity: As tolerated. Take breaks as needed. Diet: Heart healthy and carb consistent diet. Avoid salts, or foods with hidden salts such as canned or boxed foods and frozen dinners. Extra salt makes your heart work harder and traps the fluid in your body for longer. Special Instructions: Weigh yourself every morning after you urinate. If you gain 3 pounds overnight or more than 5 pounds in one week, call your sql bi developer and migration agent for guidance on your medications or they may want to see you in their office. Keep a daily log of your weights and be sure to bring with you at follow up visits with your PCP and migration agent. At your follow up with cardiology, it is recommending that you discuss HFMS Zoll Heart Failure monitoring device along with Furoscix (furosemide subcutaneous injection unit) for better management of your heart failure. Take all of your medications as directed, especially your water pills. NEVER skip a dose. And remember to keep all of your doctor's appointments and follow- up as needed. Elevate your legs when you are not up moving around to help with circulation and prevent swelling. Compression stockings are also a great way to improve lower extremity circulation and prevent/improve lower extremity edema. Call your primary sql bi developer and migration agent if you notice any extra swelling in your legs, ankles, feet or abdomen, if you have a new dry cough, if your shortness of breath worsens with activity or at rest, or if you feel more fatigued. Thank you for allowing us to participate in your care, it was truly a pleasure having you for our patient!!! . Discharge Disposition: HOME SELF-CARE
== END 2024-06-10 10:07 | disposition home or self-care (01) | DRG 286 ==
LOC: EC 05:20 → 6NMEDSUR 07:18 → OBSVTOIN 06-09 18:00
PROVIDERS: ADMIT Family Medicine; ATTEND Family Medicine
PROC: B2111ZZ Fluoroscopy of Multiple Coronary Arteries using Low Osmolar Contrast (ICD-10-PCS; principal; 2024-06-08 08:50)
PROC: 4A023N7 Measurement of Cardiac Sampling and Pressure, Left Heart, Percutaneous Approach (ICD-10-PCS; principal; 2024-06-08 08:50)
PROC: 5A1D70Z Performance of Urinary Filtration, Intermittent, Less than 6 Hours Per Day (ICD-10-PCS; 2024-06-09)
DX: I25.110 Atherosclerotic heart disease of native coronary artery with unstable angina pectoris (principal); I50.43 Acute on chronic combined systolic (congestive) and diastolic (congestive) heart failure; N18.6 End stage renal disease; I13.2 Hypertensive heart and chronic kidney disease with heart failure and with stage 5 chronic kidney disease, or end stage renal disease; E87.1 Hypo-osmolality and hyponatremia; E87.3 Alkalosis; I25.82 Chronic total occlusion of coronary artery; D63.1 Anemia in chronic kidney disease; E11.22 Type 2 diabetes mellitus with diabetic chronic kidney disease; N40.0 Benign prostatic hyperplasia without lower urinary tract symptoms; E78.5 Hyperlipidemia, unspecified; E83.9 Disorder of mineral metabolism, unspecified; J44.9 Chronic obstructive pulmonary disease, unspecified; E11.42 Type 2 diabetes mellitus with diabetic polyneuropathy; E87.8 Other disorders of electrolyte and fluid balance, not elsewhere classified; Z99.2 Dependence on renal dialysis; F41.9 Anxiety disorder, unspecified; G47.33 Obstructive sleep apnea (adult) (pediatric); H91.90 Unspecified hearing loss, unspecified ear; I08.0 Rheumatic disorders of both mitral and aortic valves; I25.2 Old myocardial infarction; I25.5 Ischemic cardiomyopathy; I44.0 Atrioventricular block, first degree; M19.90 Unspecified osteoarthritis, unspecified site; I45.10 Unspecified right bundle-branch block; Z95.5 Presence of coronary angioplasty implant and graft; Z95.1 Presence of aortocoronary bypass graft; Z79.02 Long term (current) use of antithrombotics/antiplatelets; Z87.891 Personal history of nicotine dependence; Z79.4 Long term (current) use of insulin; Z79.82 Long term (current) use of aspirin; Z79.899 Other long term (current) drug therapy; Z96.41 Presence of insulin pump (external) (internal); Z91.81 History of falling; Z28.310 Unvaccinated for COVID-19; Z57.4 Occupational exposure to toxic agents in agriculture
CPT/HCPCS: 36415; 71046; 80048; 80053; 83735; 83880; 84100; 84484; 85025; 85027; 85610; 85730; 90935; 93005; 93308; 93459; 94760; 96365; 99285

== ENCOUNTER 2024-06-19 07:28 | Observation (INO) | payer MEDICARE ==
--- NOTE | 2024-06-19 08:03 | ED ---
Extremity Problem HPI - General Chief complaint: Extremity Problem,Nontraumatic Stated complaint: dyalisis port block Time Seen by Provider: 06/19/24 07:39 Source: patient, RN notes reviewed, old records reviewed Mode of arrival: ambulatory Limitations: no limitations - History of Present Illness Initial comments: 73 year old male presents to the emergency department with chief concern of left forearm AV fistula malfunction. He was at dialysis this morning and the dialysis nurse was unable to initiate HD due to AV fistula clotting. His last hemodialy sis run was completed Sunday 06/17, which was without event. He states that his fistula was created in July 23 with since then he has not had many issues with his dialysis treatments aside from needing one fistulogram. He denies other AV fistula related concerns, no numbness, tingling, pain to distal extremity. He denies shortness of breath, chest pain, palpitations, and edema. - Related Data Home Medications Medication Instructions Recorded Confirmed Ezetimibe [Zetia] 10 mg PO DAILY 05/19/16 06/07/24 Ferrous Sulfate [Iron (65 MG 325 mg PO DAILY 05/19/16 06/07/24 Elemental)] Insulin Aspart (For Pump) [NovoLOG 0.01 unit SQ-PUMP CONTINUOUS 05/28/18 06/07/24 (For Pump)] Pramipexole [Mirapex] 0.5 mg PO BID PRN 05/02/19 06/07/24 Albuterol Inhaler [Ventolin Hfa 2 puff INHALATION RT-Q4H PRN 08/10/21 06/07/24 Inhaler] Aspirin EC [Ecotrin Low Dose] 81 mg PO DAILY 02/21/22 06/07/24 Glucagon Emergency Kit 1 mg IM ONCE PRN 02/21/22 06/07/24 Escitalopram [Lexapro] 10 mg PO DAILY 01/01/23 06/07/24 ALPRAZolam [Xanax] 0.5 mg PO HS PRN 06/17/23 06/07/24 Cholecalciferol [Vitamin D3 (25 50 mcg PO DAILY 06/17/23 06/07/24 Mcg = 1000 Iu)] Tamsulosin [Flomax] 0.4 mg PO HS 06/17/23 06/07/24 Cetirizine HCl [Zyrtec] 10 mg PO DAILY 09/22/23 06/07/24 Folic Acid/Vit B Complex and C 0.8 mg PO DAILY 09/22/23 06/07/24 [Nephro-Pooja Tablet] Torsemide [Demadex] 40 mg PO SUMOWEFR 09/22/23 06/07/24 Ranolazine [Ranexa] 500 mg PO BID 06/07/24 06/07/24 Rosuvastatin [Crestor] 10 mg PO HS 06/07/24 06/07/24 Topiramate [Topamax] 25 mg PO BID 06/07/24 06/07/24 Previous Rx's Medication Instructions Recorded Clopidogrel [Plavix] 75 mg PO DAILY #30 tab 10/24/23 Nitroglycerin Sl Tabs [Nitrostat] 0.4 mg SUBLINGUAL Q5M PRN #25 tab 02/22/24 Isosorbide Mononitrate ER [Imdur] 60 mg PO DAILY 30 Days #30 tab 06/10/24 Metoprolol Tartrate [Lopressor] 25 mg PO BID 30 Days #60 tab 06/10/24 Sacubitril/Valsartan [Entresto 24 1 each PO BID 30 Days #60 tab 06/10/24 mg-26 mg Tablet] Allergies Allergy/AdvReac Type Severity Reaction Status Date / Time zolpidem [From Ambien] Allergy Hallucinati Verified 06/19/24 07:36 ons atorvastatin [From Lipitor] AdvReac jt and Verified 06/19/24 07:36 muscle pain baclofen AdvReac caused a Verified 06/19/24 07:36 fall Review of Systems ROS Statement: Those systems with pertinent positive or pertinent negative responses have been documented in the HPI. ROS Other: All systems not noted in ROS Statement are negative. Past Medical History Past Medical History: Blood Disorder, Coronary Artery Disease (CAD), Chest Pain / Angina, Heart Failure, COPD, Diabetes Mellitus, Dialysis, Hearing Disorder / Deafness, Hyperlipidemia, Hypertension, Myocardial Infarction ([place]), Ost eoarthritis (OA), Renal Disease, Sleep Apnea/CPAP/BIPAP Additional Past Medical History / Comment(s): has insulin pump and contiunuous blood glucose monitor,fell at home on Tuesday10-10-23"got dizzy"-no injury,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. Chronic renal failure, dialysis [facility] normally. Patient has insulin pump. Has CPAP, occasionally uses. Neuropathy in feet and hands. Poor hearing. Last Myocardial Infarction Date:: History of Any Multi-Drug Resistant Organisms: None Reported Past Surgical History: Cholecystectomy, Coronary Bypass/CABG, Heart Catheterization, Heart Catheterization With Stent, Orthopedic Surgery Additional Past Surgical History / Comment(s): Shoulder surgery-no hardware, hemorrhoidectomy, eye surgery,4 cardiac stents,AV fistula left forearm, double vessle CABG 10/17/23 Past Anesthesia/Blood Transfusion Reactions: No Reported Reaction Additional Past Anesthesia/Blood Transfusion Reaction / Comment(s): Never had a blood transfusion. Date of Last Stent Placement:: 2004,2014,2023 Past Psychological History: Anxiety Smoking Status: Former smoker Past Alcohol Use History: None Reported Past Drug Use History: None Reported - Past Family History Father Family Medical History: Cancer Additional Family Medical History / Comment(s): Bladder cancer. Mother Family Medical History: Cancer, Diabetes Mellitus Additional Family Medical History / Comment(s): Pancreatic cancer. General Exam Limitations: no limitations General appearance: alert, in no apparent distress Head exam: Present: atraumatic, normocephalic, normal inspection Eye exam: Present: normal appearance, PERRL, EOMI. Absent: scleral icterus, conjunctival injection, periorbital swelling ENT exam: Present: normal exam, mucous membranes moist Neck exam: Present: normal inspection. Absent: tenderness, meningismus, lymphadenopathy Respiratory exam: Present: normal lung sounds bilaterally. Absent: respiratory distress, wheezes, rales, rhonchi, stridor Cardiovascular Exam: Present: regular rate, normal rhythm, systolic murmur. Absent: normal heart sounds, diastolic murmur, rubs, gallop, clicks GI/Abdominal exam: Present: soft, normal bowel sounds. Absent: distended, tenderness, guarding, rebound, rigid Extremities exam: Present: normal inspection, full ROM, normal capillary refill. Absent: tenderness, pedal edema, joint swelling, calf tenderness Left Forearm Wrist exam: Present: other (No bruit/thrill or vibrations noted to LFA AV fistula) Back exam: Present: normal inspection Neurological exam: Present: alert, oriented X3, CN II-XII intact Psychiatric exam: Present: normal affect, normal mood Skin exam: Present: warm, dry, intact, normal color. Absent: rash Course Vital Signs 06/19/24 07:36 Temperature 97.5 F L Pulse Rate 59 L Respiratory 18 Rate Blood Pressure 144/69 O2 Sat by Pulse 99 Oximetry Medical Decision Making - Medical Decision Making Was pt. sent in by a medical professional or institution (CLINTON Reyes, TASSEL SNIPPER, urgent care, hospital, or residential...) When possible be specific @ -No Did you speak to anyone other than the patient for history (EMS, parent, family, police, friend...)? What history was obtained from this source @ -No Did you review nursing and triage notes (agree or disagree)? Why? @ -I reviewed and agree with nursing and triage notes Were old charts reviewed (outside hosp., previous admission, EMS record, old EKG, old radiological studies, urgent care reports/EKG's, residential records)? Report findings @ -No old charts were reviewed Differential Diagnosis (chest pain, altered mental status, abdominal pain women, abdominal pain men, vaginal bleeding, weakness, fever, dyspnea, syncope, headache, dizziness, GI bleed, back pain, seizure, CVA, palpatations, mental health, musculoskeletal)? @ -AV fistula thrombus, ER SD EKG interpreted by me (3pts min.). @ -None X-rays interpreted by me (1pt min.). @ -None done CT interpreted by me (1pt min.). @ -None done U/S interpreted by me (1pt. min.). @ -None done What testing was considered but not performed or refused? (CT, X-rays, U/S, labs)? Why? @ -None What meds were considered but not given or refused? Why? @ -None Did you discuss the management of the patient with other professionals (professionals i.e. CLINTON Reyes, TASSEL SNIPPER, lab, RT, psych nurse, social media strategist, supervisor litharge, teacher, banking officer, showcase maker)? Give summary @ -Case discussed with Dr. Garcia for admission, Shannan with vascular was contacted for evaluation Was smoking cessation discussed for >3mins.? @ -No Was critical care preformed (if so, how long)? @ -No Were there social determinants of health that impacted care today? How? (Homelessness, low income, unemployed, alcoholism, drug addiction, transportation, low edu. Level, literacy, decrease access to med. care, detention, rehab)? @ -No Was there de-escalation of care discussed even if they declined (Discuss DNR or withdrawal of care, Hospice)? DNR status @ -No What co-morbidities impacted this encounter? (DM, HTN, Smoking, COPD, CAD, Cancer, CVA, ARF, Chemo, Hep., AIDS, mental health diagnosis, sleep apnea, morbid obesity)? @ -ESRD, diabetes, CAD Was patient admitted / discharged? Hospital course, mention meds given and route, prescriptions, significant lab abnormalities, going to OR and other pertinent info. @ -Admitted patient has occluded left AV fistula patient will be admitted for evaluation and treatment. Undiagnosed new problem with uncertain prognosis? @ -No Drug Therapy requiring intensive monitoring for toxicity (Heparin, Nitro, Insulin, Cardizem)? @ -No Were any procedures done? @ -No Diagnosis/symptom? @ -Thrombosed AV fistula Acute, or Chronic, or Acute on Chronic? @ -Acute Uncomplicated (without systemic symptoms) or Complicated (systemic symptoms)? @ -Complicated Side effects of treatment? @ -No Exacerbation, Progression, or Severe Exacerbation? @ -No Poses a threat to life or bodily function? How? (Chest pain, [place], [place], pneumonia, PE, COPD, DKA, ARF, appy, cholecystitis, CVA, Diverticulitis, Homicidal, Suicidal, threat to staff... and all critical care pts) @ -Yes renal failure causing hyperkalemia and cardiac dysrhythmia Disposition Clinical Impression: Thrombosis of dialysis vascular access, Thrombosis of arteriovenous fistula Disposition: ADMITTED IP TO THIS HOSP Condition: Fair Referrals: Marlon Valentino DO [Primary Care Provider] - 1-2 days Time of Disposition: 08:11
[2024-06-19] MEDS ORDERED: NALOXONE 0.4 MG/ML 1 ML VIAL IV PRN (08:12)
[2024-06-19 08:26] LABS: Basophils % (A) 1 %; Eosinophils # (A) 0.2 k/uL (0-0.7); Eosinophils % (A) 2 %; HCT 34.1 % (39.0-53.0); HGB 11.4 gm/dL (13.0-17.5); Lymphocytes # (A) 1.5 k/uL (1.0-4.8); Lymphocytes % (A) 22 %; MCH 32.6 pg (25.0-35.0); MCHC 33.5 g/dL (31.0-37.0); MCV 97.3 fL (80.0-100.0); Mean Platelet Volume 8.4; Monocytes # (A) 0.4 k/uL (0-1.0); Monocytes % (A) 6 %; Neutrophils # (A) 4.6 k/uL (1.3-7.7); Neutrophils % (A) 67 %; Platelet Count 158 k/uL (150-450); RBC 3.51 m/uL (4.30-5.90); RDW 13.8 % (11.5-15.5); WBC 6.8 k/uL (3.8-10.6)
[2024-06-19 08:30] LABS: Partial Thromboplastin Time 25.7 sec (22.0-30.0); Prothrombin Time 10.9 sec (10.0-12.5)
[2024-06-19 08:41] LABS: ALT 20 U/L (4-49); AST 24 U/L (17-59); African American GFR (CKD) 10 (>60 ml/min/1.73 sqM); Albumin 4.1 g/dL (3.5-5.0); Alkaline Phosphatase 99 U/L (38-126); Anion Gap 14 mmol/L; Blood Urea Nitrogen 74 mg/dL (9-20); Calcium 8.2 mg/dL (8.4-10.2); Carbon Dioxide 25 mmol/L (22-30); Chloride 97 mmol/L (98-107); Glucose 268 mg/dL (74-99); Magnesium 2.3 mg/dL (1.6-2.3); Non-African American GFR(CKD) 9 (>60 ml/min/1.73 sqM); Phosphorus 5.8 mg/dL (2.5-4.5); Potassium 5.2 mmol/L (3.5-5.1); Sodium 136 mmol/L (137-145); Total Bilirubin 0.5 mg/dL (0.2-1.3); Total Protein 7.1 g/dL (6.3-8.2)
[2024-06-19] MEDS ORDERED: ALBUTEROL NEBULIZED 2.5 MG/3 ML INHALATION PRN (08:53)
[2024-06-19] MEDS ORDERED: NITROGLYCERIN SL TABS 0.4 MG TAB SUBLINGUAL PRN (08:53)
[2024-06-19] MEDS ORDERED: NON FORMULARY DRUG (Insulin Aspart (For Pump) [Novolog (For Pump)] 100 UNIT/ML Vial) SQ-PUMP SCH (09:00)
[2024-06-19] MEDS: ESCITALOPRAM 10 MG TAB PO SCH (09:57)
[2024-06-19] MEDS: SACUBITRIL/VALSARTAN 24 MG-26 MG TABLET PO SCH (09:58)
[2024-06-19] MEDS: CHOLECALCIFEROL 25 MCG (1000 IU) TABLET PO SCH (09:59)
[2024-06-19] MEDS: METOPROLOL TARTRATE 25 MG TAB PO SCH (09:59)
[2024-06-19] MEDS: FERROUS SULFATE 325 MG TAB PO SCH (09:59)
[2024-06-19] MEDS: LORATADINE 10 MG TAB PO SCH (09:59)
[2024-06-19] MEDS: RANOLAZINE 500 MG TAB.ER.12H PO SCH (09:59)
[2024-06-19] MEDS: TOPIRAMATE 25 MG TAB PO SCH (09:59)
[2024-06-19] MEDS: EZETIMIBE 10 MG TAB PO SCH (09:59)
[2024-06-19] MEDS: ISOSORBIDE MONONITRATE ER 60 MG TAB.ER.24H PO SCH (09:59)
--- NOTE | 2024-06-19 10:04 | P.GSCN ---
History of Present Illness Consult date: 06/19/24 Reason for Consult: Thrombosed AV graft Requesting physician: Clint Alfonso History of present illness: This is a pleasant 73-year-old male who presented to the emergency department with history of end-stage renal disease on hemodialysis. Patient gets dialysis Saturdays. He went to dialysis this morning and they were unable to do dialysis. Patient had no thrill or bruit. States he had dialysis on Tuesday without any complications. He has a past medical history including coronary artery disease status postcardiac cath and CABG. He is on Plavix and aspirin. He had a left upper extremity AV graft placed in June [address] Amador. He required a pharmacal thrombectomy with angioplasty in September 2023. He denies any pain, swelling, redness, numbness or tingling in the left upper extremity. He denies any shortness of breath, chest pain, or lower extremity swelling. Review of Systems A 14 point review systems was completed all pertinent positives and negatives as stated in the HPI. Past Medical History Past Medical History: Blood Disorder, Coronary Artery Disease (CAD), Chest Pain / Angina, Heart Failure, COPD, Diabetes Mellitus, Dialysis, Hearing Disorder / Deafness, Hyperlipidemia, Hypertension, Myocardial Infarction ([place]), Osteoarthritis (OA), Renal Disease, Sleep Apnea/CPAP/BIPAP Additional Past Medical History / Comment(s): has insulin pump and contiunuous blood glucose monitor,fell at home on Tuesday10-10-23"got dizzy"-no injury,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. Chronic renal failure, dialysis [facility] normally. Patient has insulin pump. Has CPAP, occasionally uses. Neuropathy in feet and hands. Poor hearing. Last Myocardial Infarction Date:: History of Any Multi-Drug Resistant Organisms: None Reported Past Surgical History: Cholecystectomy, Coronary Bypass/CABG, Heart Catheterization, Heart Catheterization With Stent, Orthopedic Surgery Additional Past Surgical History / Comment(s): Shoulder surgery-no hardware, hemorrhoidectomy, eye surgery,4 cardiac stents,AV fistula left forearm, double vessle CABG 10/17/23 Past Anesthesia/Blood Transfusion Reactions: No Reported Reaction Additional Past Anesthesia/Blood Transfusion Reaction / Comm: Never had a blood transfusion. Date of Last Stent Placement:: 2004,2014,2023 Past Psychological History: Anxiety Smoking Status: Former smoker Past Alcohol Use History: None Reported Past Drug Use History: None Reported - Past Family History Father Family Medical History: Cancer Additional Family Medical History / Comment(s): Bladder cancer. Mother Family Medical History: Cancer, Diabetes Mellitus Additional Family Medical History / Comment(s): Pancreatic cancer. Medications and Allergies Home Medications Medication Instructions Recorded Confirmed Type Ezetimibe [Zetia] 10 mg PO DAILY 05/19/16 06/19/24 History Ferrous Sulfate [Iron (65 MG 325 mg PO DAILY 05/19/16 06/19/24 History Elemental)] Insulin Aspart (For Pump) [NovoLOG 0.01 unit SQ-PUMP CONTINUOUS 05/28/18 06/19/24 History (For Pump)] Pramipexole [Mirapex] 0.5 mg PO BID PRN 05/02/19 06/19/24 History Albuterol Inhaler [Ventolin Hfa 2 puff INHALATION RT-Q4H PRN 08/10/21 06/19/24 History Inhaler] Aspirin EC [Ecotrin Low Dose] 81 mg PO DAILY 02/21/22 06/19/24 History Glucagon Emergency Kit 1 mg IM ONCE PRN 02/21/22 06/19/24 History Escitalopram [Lexapro] 10 mg PO DAILY 01/01/23 06/19/24 History ALPRAZolam [Xanax] 0.5 mg PO HS PRN 06/17/23 06/19/24 History Cholecalciferol [Vitamin D3 (25 50 mcg PO DAILY 06/17/23 06/19/24 History Mcg = 1000 Iu)] Tamsulosin [Flomax] 0.4 mg PO HS 06/17/23 06/19/24 History Cetirizine HCl [Zyrtec] 10 mg PO DAILY 09/22/23 06/19/24 History Folic Acid/Vit B Complex and C 0.8 mg PO DAILY 09/22/23 06/19/24 History [Nephro-Pooja Tablet] Torsemide [Demadex] 40 mg PO SUMOWEFR 09/22/23 06/19/24 History Clopidogrel [Plavix] 75 mg PO DAILY #30 tab 10/24/23 06/19/24 Rx Nitroglycerin Sl Tabs [Nitrostat] 0.4 mg SUBLINGUAL Q5M PRN #25 tab 02/22/24 06/19/24 Rx Ranolazine [Ranexa] 500 mg PO BID 06/07/24 06/19/24 History Rosuvastatin [Crestor] 10 mg PO HS 06/07/24 06/19/24 History Topiramate [Topamax] 25 mg PO BID 06/07/24 06/19/24 History Isosorbide Mononitrate ER [Imdur] 60 mg PO DAILY 30 Days #30 tab 06/10/24 06/19/24 Rx Metoprolol Tartrate [Lopressor] 25 mg PO BID 30 Days #60 tab 06/10/24 06/19/24 Rx Sacubitril/Valsartan [Entresto 24 1 tab PO BID 06/19/24 06/19/24 History mg-26 mg Tablet] Allergies Allergy/AdvReac Type Severity Reaction Status Date / Time zolpidem [From Ambien] Allergy Hallucinati Verified 06/19/24 09:32 ons atorvastatin [From Lipitor] AdvReac jt and Verified 06/19/24 09:32 muscle pain baclofen AdvReac caused a Verified 06/19/24 09:32 fall Surgical - Exam Vital Signs Temp Pulse Resp BP Pulse Ox 97.5 F L 59 L 18 144/69 99 06/19/24 07:36 06/19/24 07:36 06/19/24 07:36 06/19/24 07:36 06/19/24 07:36 General appearance: The patient is alert, oriented, appears in no acute distress. HET: Head is normocephalic and atraumatic. Neck: Supple. Heart: Regular. Lungs: Equal expansion, normal respiratory effort. Abdomen: Soft, nontender, nondistended. Extremities: Normal skin color and turgor. Left upper extremity forearm loop graft with nonpalpable thrill, no audible bruit throughout most of loop graft. No lower extremity edema. Neurological: No focal deficits. Strength and sensation are grossly intact. Results - Labs 06/19/24 08:09 06/19/24 08:09 Abnormal Lab Results - Last 24 Hours (Table) 06/19/24 06/19/24 Range/Units 08:09 08:09 RBC 3.51 L (4.30-5.90) m/uL Hgb 11.4 L (13.0-17.5) gm/dL Hct 34.1 L (39.0-53.0) % Sodium 136 L (137-145) mmol/L Potassium 5.2 H (3.5-5.1) mmol/L Chloride 97 L (98-107) mmol/L BUN 74 H (9-20) mg/dL Creatinine 5.93 H (0.66-1.25) mg/dL Glucose 268 H (74-99) mg/dL Calcium 8.2 L (8.4-10.2) mg/dL Phosphorus 5.8 H (2.5-4.5) mg/dL Diabetes panel 06/19/24 Range/Units 08:09 Sodium 136 L (137-145) mmol/L Potassium 5.2 H (3.5-5.1) mmol/L Chloride 97 L (98-107) mmol/L Carbon Dioxide 25 (22-30) mmol/L BUN 74 H (9-20) mg/dL Creatinine 5.93 H (0.66-1.25) mg/dL Glucose 268 H (74-99) mg/dL Calcium 8.2 L (8.4-10.2) mg/dL AST 24 (17-59) U/L ALT 20 (4-49) U/L Alkaline Phosphatase 99 (38-126) U/L Total Protein 7.1 (6.3-8.2) g/dL Albumin 4.1 (3.5-5.0) g/dL Calcium panel 06/19/24 Range/Units 08:09 Calcium 8.2 L (8.4-10.2) mg/dL Phosphorus 5.8 H (2.5-4.5) mg/dL Albumin 4.1 (3.5-5.0) g/dL Pituitary panel 06/19/24 Range/Units 08:09 Sodium 136 L (137-145) mmol/L Potassium 5.2 H (3.5-5.1) mmol/L Chloride 97 L (98-107) mmol/L Carbon Dioxide 25 (22-30) mmol/L BUN 74 H (9-20) mg/dL Creatinine 5.93 H (0.66-1.25) mg/dL Glucose 268 H (74-99) mg/dL Calcium 8.2 L (8.4-10.2) mg/dL Adrenal panel 11/19/24 Range/Units 08:09 Sodium 136 L (137-145) mmol/L Potassium 5.2 H (3.5-5.1) mmol/L Chloride 97 L (98-107) mmol/L Carbon Dioxide 25 (22-30) mmol/L BUN 74 H (9-20) mg/dL Creatinine 5.93 H (0.66-1.25) mg/dL Glucose 268 H (74-99) mg/dL Calcium 8.2 L (8.4-10.2) mg/dL Total Bilirubin 0.5 (0.2-1.3) mg/dL AST 24 (17-59) U/L ALT 20 (4-49) U/L Alkaline Phosphatase 99 (38-126) U/L Total Protein 7.1 (6.3-8.2) g/dL Albumin 4.1 (3.5-5.0) g/dL Assessment and Plan Assessment: 1. Malfunctioning left upper extremity AV loop graft 2. End-stage renal disease on hemodialysis 3. Coronary artery disease Plan: 1. Tentative plan is for left upper extremity fistulogram with intervention tomorrow 2. Continue with recommendations and hemodialysis orders per nephrology 3. Rest of medical management per primary medical team 4. Hold Plavix 5. N.p.o. after midnight Thank you for this consultation, we will continue to monitor. The impression and plan of care has been dictated as directed. Dr. Amador I performed a history and examination of this patient, discussed the same with the dictator. I agree with the dictator's note ,documented as a scribe. Any additional findings or plans will be noted.
[2024-06-19] MEDS: CLOPIDOGREL 75 MG TAB PO SCH (10:05)
[2024-06-19] MEDS: PRAMIPEXOLE 0.5 MG TAB PO PRN (10:16)
[2024-06-19] MEDS: ASPIRIN 81 MG PO SCH (10:46)
--- NOTE | 2024-06-19 11:02 | P.HPIM ---
History of Present Illness H&P Date: 06/19/24 History of Presenting Illness: Patient is a very pleasant 73-year-old male with a past medical history of CAD status post CABG x2 in September 2023, multiple stents, ESRD on hemodialysis (/), chronic diastolic CHF, insulin-dependent diabetes mellitus with insulin pump, COPD, hypertension, hyperlipidemia, and obstructive sleep apnea CPAP dependent nightly. Patient was sent to the emergency department this morning from dialysis center secondary to concerns of thrombosed AV fistula. Patient is currently due for dialysis with last dialysis treatment being completed 06/17/2024. Patient currently free from any complaints including left arm numbness or tingling, headache, lightheadedness, dizziness, chest pain, palpitations, shortness of breath, exertional dyspnea, or any other complaints. Upon arrival to our facility, patient underwent evaluation in the emergency department. Vital signs upon arrival show blood pressure 144/69, heart rate 59, respiratory rate 18, temp 97.5 F, and SpO2 of 99% on room air. Labs completed and reviewed. CBC showing stable normocytic anemia with hemoglobin of 11.4. BMP revealing hyperkalemia with potassium of 5.2, hypochloremia with chloride of 97 and slightly elevated anion gap of 14 with renal function consistent with ESRD with BUN of 74, creatinine of 5.93, GFR of 9. Blood glucose 268. Magnesium 2.3. Liver profile unremarkable. Patient admitted under our services with consultation to vascular surgery and nephrology. Review of systems: Pertinent positives and negatives as discussed in HPI, a complete review of systems was performed and all other systems are negative. Physical exam: Vital signs reviewed and stable. General: Nontoxic, no distress and appears stated age. Derm: Skin warm and dry, normal coloration for ethnicity. Head: Atraumatic, normocephalic and symmetric. Eyes: EOM's intact, no lid lag, and anicteric sclera Mouth: no lip lesions, mucus membranes moist Cardiovascular: regular rate and rhythm with normal S1S2, systolic murmur, positive posterior tibial pulses bilaterally, and cap refill < 2 seconds. AV fistula left arm, no bruit or thrill present. Lungs: Respirations even, regular, and unlabored on room air. Lungs CTA bilaterally, no rhonchi, no rales, no wheezing, and no accessory muscle usage. Abdominal: soft, nontender to palpation, no guarding, no appreciable organomegaly Ext: ROM intact. No gross muscle atrophy, no edema, no contractures Neuro: Speech clear, face symmetrical and CN II-XII grossly intact with no noted focal neuro deficits Psych: Alert and oriented to person, place, time, and situation. Appropriate and pleasant affect. Assessment and Plan of Care: Thrombosed AV fistula ESRD in need of dialysis Hyperkalemia, secondary to above Hypochloremic hyponatremia, secondary to volume overload High anion gap metabolic alkalosis, secondary to above -Vascular surgery consulted planning to take patient for left upper extremity venogram with intervention tomorrow -Nephrology consulted for management of hemodialysis once AV fistula use is restored -Order placed for EKG. Patient to be placed on continuous telemetry monitoring. -Patient given a one-time dose of Lokelma and started on IV Lasix 80 mg twice daily. Insulin-dependent diabetes mellitus with hyperglycemia -Patient placed on glycemic protocol with [id number] glucose checks 4 times daily (with meals and at bedtime) -Order placed for patient to continue use of home insulin pump. CAD status post CABG x 2 followed by stent placement Chronic systolic heart failure -Continue cardiac medication regimen with aspirin 81 mg daily, Plavix 75 mg daily, Zetia 10 mg daily, isosorbide mononitrate 60 mg daily, metoprolol 25 mg twice daily, Ranexa 500 mg twice daily, rosuvastatin 10 mg nightly, and Entresto 24-26 mg tablets twice daily. -Most recent echocardiogram completed 06/07/2024 was reviewed showing a reduced EF of 40 to 45% with mild to moderate mitral regurgitation and moderate aortic stenosis. -Obtain EKG and patient to be placed on continuous telemetry monitoring. Obstructive sleep apnea Continue use of CPAP nightly and while napping. Anemia of chronic disease -Secondary to ESRD. Patient to continue with ferrous sulfate 325 mg daily. COPD, not in acute exacerbation Continue nebulizer treatments every 4 hours as needed for wheezing/shortness of breath. Patient to be provided with oxygen as needed to maintain SpO2 equal to or greater than 92%. Hypertension Monitor vital signs and continue daily medication regimen with isosorbide mononitrate 60 mg daily, and metoprolol 25 mg twice daily. Hyperlipidemia Continue daily medication regimen with rosuvastatin 20 mg nightly and Zetia 10 mg daily. BPH Continue Flomax 0.4 mg nightly. Data and imaging reviewed: -As stated above in HPI. The patient is admitted with an anticipated greater than 2 midnight stay for evaluation of thrombosed AV fistula CODE STATUS: Full code DVT prophylaxis: Heparin Anticipated discharge date: Pending clinical course Anticipated discharge place: Home Patient was seen independently by Nurse Practitioner. This document was prepared using [employer] dictation software. Please allow for errors in police lieutenant patrol while rare they do occur. Manuel Ivey NP rendered care for this patient independently, reviewed the findings and plan as documented in the note above and agree with plan. I did not physically speak with or examine the patient on this date. Past Medical History Past Medical History: Blood Disorder, Coronary Artery Disease (CAD), Chest Pain / Angina, Heart Failure, COPD, Diabetes Mellitus, Dialysis, Hearing Disorder / Deafness, Hyperlipidemia, Hypertension, Myocardial Infarction ([place]), Osteoarthritis (OA), Renal Disease, Sleep Apnea/CPAP/BIPAP Additional Past Medical History / Comment(s): has insulin pump and contiunuous blood glucose monitor,fell at home on Tuesday10-10-23"got dizzy"-no injury,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. Chronic renal failure, dialysis [facility] normally. Patient has insulin pump. Has CPAP, occasionally uses. Neuropathy in feet and hands. Poor hearing. Last Myocardial Infarction Date:: History of Any Multi-Drug Resistant Organisms: None Reported Past Surgical History: Cholecystectomy, Coronary Bypass/CABG, Heart Catheterization, Heart Catheterization With Stent, Orthopedic Surgery Additional Past Surgical History / Comment(s): Shoulder surgery-no hardware, hemorrhoidectomy, eye surgery,4 cardiac stents,AV fistula left forearm, double vessle CABG 10/17/23 Past Anesthesia/Blood Transfusion Reactions: No Reported Reaction Additional Past Anesthesia/Blood Transfusion Reaction / Comment(s): Never had a blood transfusion. Date of Last Stent Placement:: 2004,2014,2023 Past Psychological History: Anxiety Smoking Status: Former smoker Past Alcohol Use History: None Reported Past Drug Use History: None Reported - Past Family History Father Family Medical History: Cancer Additional Family Medical History / Comment(s): Bladder cancer. Mother Family Medical History: Cancer, Diabetes Mellitus Additional Family Medical History / Comment(s): Pancreatic cancer. Medications and Allergies Home Medications Medication Instructions Recorded Confirmed Type Ezetimibe [Zetia] 10 mg PO DAILY 05/19/16 06/19/24 History Ferrous Sulfate [Iron (65 MG 325 mg PO DAILY 05/19/16 06/19/24 History Elemental)] Insulin Aspart (For Pump) [NovoLOG 0.01 unit SQ-PUMP CONTINUOUS 05/28/18 06/19/24 History (For Pump)] Pramipexole [Mirapex] 0.5 mg PO BID PRN 05/02/19 06/19/24 History Albuterol Inhaler [Ventolin Hfa 2 puff INHALATION RT-Q4H PRN 08/10/21 06/19/24 History Inhaler] Aspirin EC [Ecotrin Low Dose] 81 mg PO DAILY 02/21/22 06/19/24 History Glucagon Emergency Kit 1 mg IM ONCE PRN 02/21/22 06/19/24 History Escitalopram [Lexapro] 10 mg PO DAILY 01/01/23 06/19/24 History ALPRAZolam [Xanax] 0.5 mg PO HS PRN 06/17/23 06/19/24 History Cholecalciferol [Vitamin D3 (25 50 mcg PO DAILY 06/17/23 06/19/24 History Mcg = 1000 Iu)] Tamsulosin [Flomax] 0.4 mg PO HS 06/17/23 06/19/24 History Cetirizine HCl [Zyrtec] 10 mg PO DAILY 09/22/23 06/19/24 History Folic Acid/Vit B Complex and C 0.8 mg PO DAILY 09/22/23 06/19/24 History [Nephro-Pooja Tablet] Torsemide [Demadex] 40 mg PO SUMOWEFR 09/22/23 06/19/24 History Clopidogrel [Plavix] 75 mg PO DAILY #30 tab 10/24/23 06/19/24 Rx Nitroglycerin Sl Tabs [Nitrostat] 0.4 mg SUBLINGUAL Q5M PRN #25 tab 02/22/24 06/19/24 Rx Ranolazine [Ranexa] 500 mg PO BID 06/07/24 06/19/24 History Rosuvastatin [Crestor] 10 mg PO HS 06/07/24 06/19/24 History Topiramate [Topamax] 25 mg PO BID 06/07/24 06/19/24 History Isosorbide Mononitrate ER [Imdur] 60 mg PO DAILY 30 Days #30 tab 06/10/24 06/19/24 Rx Metoprolol Tartrate [Lopressor] 25 mg PO BID 30 Days #60 tab 06/10/24 06/19/24 Rx Azithromycin [Zithromax Z Pack] See Taper PO DIRECTED 06/19/24 06/19/24 History Sacubitril/Valsartan [Entresto 24 1 tab PO BID 06/19/24 06/19/24 History mg-26 mg Tablet] Allergies Allergy/AdvReac Type Severity Reaction Status Date / Time zolpidem [From Ambien] Allergy Hallucinati Verified 06/19/24 09:32 ons atorvastatin [From Lipitor] AdvReac jt and Verified 06/19/24 09:32 muscle pain baclofen AdvReac caused a Verified 06/19/24 09:32 fall Physical Exam Vitals: Vital Signs Temp Pulse Pulse Resp BP Pulse Ox 06/19/24 08:30 62 06/19/24 08:22 97.6 F 64 19 133/60 94 L 06/19/24 07:36 97.5 F L 59 L 18 144/69 99 Intake and Output 06/18/24 06/19/24 06/19/24 22:59 06:59 14:59 Other: Weight 96.162 kg Results CBC & Chem 7: 06/19/24 08:09 06/19/24 15:41 Labs: Abnormal Lab Results - Last 24 Hours (Table) 06/19/24 06/19/24 Range/Units 08:09 08:09 RBC 3.51 L (4.30-5.90) m/uL Hgb 11.4 L (13.0-17.5) gm/dL Hct 34.1 L (39.0-53.0) % Sodium 136 L (137-145) mmol/L Potassium 5.2 H (3.5-5.1) mmol/L Chloride 97 L (98-107) mmol/L BUN 74 H (9-20) mg/dL Creatinine 5.93 H (0.66-1.25) mg/dL Glucose 268 H (74-99) mg/dL Calcium 8.2 L (8.4-10.2) mg/dL Phosphorus 5.8 H (2.5-4.5) mg/dL
[2024-06-19] MEDS: FOLIC ACID-VIT B COMPLEX-VIT C 1 CAP PO SCH (11:04)
--- NOTE | 2024-06-19 11:14 | P.NPCON ---
History of Present Illness - Reason for Consult end stage renal disease - History of Present Illness Reason for consultation: End-stage renal disease History of present illness: Patient is a 73-year-old male seen in renal consultation for end-stage renal disease. He is maintained on hemodialysis on Tuesday schedule. Last hemodialysis was on Tuesday. Patient states he went to [facility] this morning and was sent to the hospital due to clotted AV graft. Otherwise patient has no active complaints. He does have a history of coronary disease and is status post CABG as well as 2 cardiac stents. He recently had a cardiac cath with no new interventions. He denies chest pain or shortness of breath. Currently on room air. Hemodynamically stable. No vomiting or diarrhea he does have history of diabetes. Makes urine. Vital signs are stable. General: No acute distress. HEENT: Head exam is unremarkable. LUNGS: No audible rhonchi or wheezes. HEART: Rate and Rhythm are regular. ABDOMEN: Nontender. EXTREMITITES: No edema. Past Medical History Past Medical History: Blood Disorder, Coronary Artery Disease (CAD), Chest Pain / Angina, Heart Failure, COPD, Diabetes Mellitus, Dialysis, Hearing Disorder / Deafness, Hyperlipidemia, Hypertension, Myocardial Infarction ([place]), Osteoarthritis (OA), Renal Disease, Sleep Apnea/CPAP/BIPAP Additional Past Medical History / Comment(s): has insulin pump and contiunuous blood glucose monitor,fell at home on Tuesday10-10-23"got dizzy"-no injury,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. Chronic renal failure, dialysis [facility] normally. Patient has insulin pump. Has CPAP, occasionally uses. Neuropathy in feet and hands. Poor hearing. Last Myocardial Infarction Date:: History of Any Multi-Drug Resistant Organisms: None Reported Past Surgical History: Cholecystectomy, Coronary Bypass/CABG, Heart Cathet erization, Heart Catheterization With Stent, Orthopedic Surgery Additional Past Surgical History / Comment(s): Shoulder surgery-no hardware, hemorrhoidectomy, eye surgery,4 cardiac stents,AV fistula left forearm, double vessle CABG 10/17/23 Past Anesthesia/Blood Transfusion Reactions: No Reported Reaction Additional Past Anesthesia/Blood Transfusion Reaction / Comment(s): Never had a blood transfusion. Date of Last Stent Placement:: 2004,2014,2023 Past Psychological History: Anxiety Smoking Status: Former smoker Past Alcohol Use History: None Reported Past Drug Use History: None Reported - Past Family History Father Family Medical History: Cancer Additional Family Medical History / Comment(s): Bladder cancer. Mother Family Medical History: Cancer, Diabetes Mellitus Additional Family Medical History / Comment(s): Pancreatic cancer. Medications and Allergies Home Medications Medication Instructions Recorded Confirmed Type Ezetimibe [Zetia] 10 mg PO DAILY 05/19/16 06/19/24 History Ferrous Sulfate [Iron (65 MG 325 mg PO DAILY 05/19/16 06/19/24 History Elemental)] Insulin Aspart (For Pump) [NovoLOG 0.01 unit SQ-PUMP CONTINUOUS 05/28/18 06/19/24 History (For Pump)] Pramipexole [Mirapex] 0.5 mg PO BID PRN 05/02/19 06/19/24 History Albuterol Inhaler [Ventolin Hfa 2 puff INHALATION RT-Q4H PRN 08/10/21 06/19/24 History Inhaler] Aspirin EC [Ecotrin Low Dose] 81 mg PO DAILY 02/21/22 06/19/24 History Glucagon Emergency Kit 1 mg IM ONCE PRN 02/21/22 06/19/24 History Escitalopram [Lexapro] 10 mg PO DAILY 01/01/23 06/19/24 History ALPRAZolam [Xanax] 0.5 mg PO HS PRN 06/17/23 06/19/24 History Cholecalciferol [Vitamin D3 (25 50 mcg PO DAILY 06/17/23 06/19/24 History Mcg = 1000 Iu)] Tamsulosin [Flomax] 0.4 mg PO HS 06/17/23 06/19/24 History Cetirizine HCl [Zyrtec] 10 mg PO DAILY 09/22/23 06/19/24 History Folic Acid/Vit B Complex and C 0.8 mg PO DAILY 09/22/23 06/19/24 History [Nephro-Pooja Tablet] Torsemide [Demadex] 40 mg PO SUMOWEFR 09/22/23 06/19/24 History Clopidogrel [Plavix] 75 mg PO DAILY #30 tab 10/24/23 06/19/24 Rx Nitroglycerin Sl Tabs [Nitrostat] 0.4 mg SUBLINGUAL Q5M PRN #25 tab 02/22/24 06/19/24 Rx Ranolazine [Ranexa] 500 mg PO BID 06/07/24 06/19/24 History Rosuvastatin [Crestor] 10 mg PO HS 06/07/24 06/19/24 History Topiramate [Topamax] 25 mg PO BID 06/07/24 06/19/24 History Isosorbide Mononitrate ER [Imdur] 60 mg PO DAILY 30 Days #30 tab 06/10/24 06/19/24 Rx Metoprolol Tartrate [Lopressor] 25 mg PO BID 30 Days #60 tab 06/10/24 06/19/24 Rx Sacubitril/Valsartan [Entresto 24 1 tab PO BID 06/19/24 06/19/24 History mg-26 mg Tablet] Allergies Allergy/AdvReac Type Severity Reaction Status Date / Time zolpidem [From Ambien] Allergy Hallucinati Verified 06/19/24 09:32 ons atorvastatin [From Lipitor] AdvReac jt and Verified 06/19/24 09:32 muscle pain baclofen AdvReac caused a Verified 06/19/24 09:32 fall Physical Exam Vitals: Vital Signs Temp Pulse Pulse Resp BP Pulse Ox 06/19/24 09:30 60 17 121/61 97 06/19/24 08:30 62 06/19/24 08:22 97.6 F 64 19 133/60 94 L 06/19/24 07:36 97.5 F L 59 L 18 144/69 99 Intake and Output 06/18/24 06/19/24 06/19/24 22:59 06:59 14:59 Other: Weight 96.162 kg Results - Lab Results Most recent lab results Calcium 8.2 mg/dL (8.4-10.2) L 06/19/24 08:09 Phosphorus 5.8 mg/dL (2.5-4.5) H 06/19/24 08:09 Magnesium 2.3 mg/dL (1.6-2.3) 06/19/24 08:09 06/19/24 08:09 06/19/24 08:09 Assessment and Plan Plan: Assessment: 1. End-stage renal disease maintained on hemodialysis on Tuesday schedule. 2. Clotted AV graft. Vascular surgery following. Scheduled for fistulogram tomorrow. 3. Coronary disease status post CABG and subsequent cardiac stenting. 4. Diabetes mellitus. 5. Hypertension with chronic kidney disease. Stable. Plan: Lokelma 10 g once today. Add IV Lasix 80 mg twice daily. Resume torsemide upon discharge. Renal diet. Hemodialysis tomorrow after access revision. Repeat potassium level this evening. Thank you for the consultation. I will continue to follow the patient with you during his hospital stay.
[2024-06-19] MEDS: SODIUM ZIRCONIUM CYCLOSILICATE 10 GM PACKET PO ONE (12:29)
[2024-06-19] MEDS: FUROSEMIDE 10 MG/ML 10 ML VIAL IV SCH (12:29)
[2024-06-19] MEDS: HEPARIN SODIUM,PORCINE 5,000 UNIT/ML 1 ML VIAL SQ SCH (16:25)
[2024-06-19] MEDS ORDERED: DEXTROSE 50% SYRINGE 50 ML IVP PRN (16:59)
[2024-06-19] MEDS: AZITHROMYCIN 500 MG TAB PO SCH (17:45)
[2024-06-19 20:12] LABS: Glucose,Whole Blood 157 mg/dL (70-110)
[2024-06-19] MEDS: TAMSULOSIN 0.4 MG CAP.ER.24H PO SCH (20:20)
[2024-06-19] MEDS: CRESTOR PO SCH (20:21)
[2024-06-20 06:06] LABS: Glucose,Whole Blood 114 mg/dL (70-110)
[2024-06-20] MEDS ORDERED: TORSEMIDE 20 MG TAB PO SCH (09:00)
--- NOTE | 2024-06-20 11:07 | P.PN ---
Subjective Patient is seen in follow-up for end-stage renal disease. He is maintained on hemodialysis on Tuesday schedule. Scheduled for fistulogram today. Denies chest pain or shortness of breath. Vital signs are stable. General: No acute distress. HEENT: Head exam is unremarkable. LUNGS: No audible rhonchi or wheezes. HEART: Rate and Rhythm are regular. ABDOMEN: Nontender. EXTREMITITES: No edema. Objective - Vital Signs Vital signs: Vital Signs Temp 97.4 F L 06/20/24 07:00 Pulse 61 06/20/24 07:00 Resp 16 06/20/24 07:00 BP 131/64 06/20/24 07:00 Pulse Ox 99 06/20/24 07:00 FiO2 Intake & Output 06/19/24 06/20/24 06/20/24 18:59 06:59 18:59 Weight 96.162 kg 96.162 kg - Labs CBC & Chem 7: 06/19/24 08:09 06/19/24 15:41 Labs: Abnormal Lab Results - Last 24 Hours (Table) 06/19/24 06/20/24 Range/Units 20:11 06:04 POC Glucose (mg/dL) 157 H 114 H (70-110) mg/dL Assessment and Plan Plan: Assessment: 1. End-stage renal disease maintained on hemodialysis on Tuesday schedule. 2. Clotted AV graft. Vascular surgery following. Scheduled for fistulogram today. 3. Coronary disease status post CABG and subsequent cardiac stenting. 4. Diabetes mellitus. 5. Hypertension with chronic kidney disease. Stable. Plan: Maintain IV Lasix 80 mg twice daily. Resume torsemide upon discharge. Renal diet. Hemodialysis today after access revision.
[2024-06-20 11:57] LABS: Glucose,Whole Blood 60 mg/dL (70-110)
[2024-06-20] MEDS: DEXTROSE 50% SYRINGE 50 ML IVP PRN (12:23)
[2024-06-20] MEDS: fentaNYL (PF) 50 MCG/ML 2 ML AMP IVP ONE (16:20)
[2024-06-20] MEDS: MIDAZOLAM 2 MG/2 ML VIAL IVP ONE (16:20)
[2024-06-20] MEDS: LIDOCAINE 1% INJ 10MG/ML (20 ML MDV) SQ ONE (16:25)
[2024-06-20] MEDS: SODIUM CHLORIDE 0.9% 250 ML IV ONE (16:29)
[2024-06-20] MEDS: ALTEPLASE 2 MG VIAL (CATHFLO) IV STA (16:38)
[2024-06-20] MEDS: IOPAMIDOL-250 100ML BTL INTRAARTER ONE (17:06)
--- NOTE | 2024-06-20 17:30 | P.PN ---
Subjective Progress Note Date: 06/20/24 History of Presenting Illness: Patient is a very pleasant 73-year-old male with a past medical history of CAD status post CABG x2 in September 2023, multiple stents, ESRD on hemodialysis (), chronic diastolic CHF, insulin-dependent diabetes mellitus with insul in pump, COPD, hypertension, hyperlipidemia, and obstructive sleep apnea CPAP dependent nightly. Patient was sent to the emergency department this morning from dialysis center secondary to concerns of thrombosed AV fistula. Patient is currently due for dialysis with last dialysis treatment being completed 06/17/2024. Patient currently free from any complaints including left arm numbness or tingling, headache, lightheadedness, dizziness, chest pain, palpitations, shortness of breath, exertional dyspnea, or any other complaints. Upon arrival to our facility, patient underwent evaluation in the emergency department. Vital signs upon arrival show blood pressure 144/69, heart rate 59, respiratory rate 18, temp 97.5 F, and SpO2 of 99% on room air. Labs completed and reviewed. CBC showing stable normocytic anemia with hemoglobin of 11.4. BMP revealing hyperkalemia with potassium of 5.2, hypochloremia with chloride of 97 and slightly elevated anion gap of 14 with renal function consistent with ESRD with BUN of 74, creatinine of 5.93, GFR of 9. Blood glucose 268. Magnesium 2.3. Liver profile unremarkable. Patient admitted under our services with consultation to vascular surgery and nephrology. Review of systems: Pertinent positives and negatives as discussed in HPI, a complete review of sy stems was performed and all other systems are negative. Physical exam: Vital signs reviewed and stable. General: Nontoxic, no distress and appears stated age. Derm: Skin warm and dry, normal coloration for ethnicity. Head: Atraumatic, normocephalic and symmetric. Eyes: EOM's intact, no lid lag, and anicteric sclera Mouth: no lip lesions, mucus membranes moist Cardiovascular: regular rate and rhythm with normal S1S2, systolic murmur, positive posterior tibial pulses bilaterally, and cap refill < 2 seconds. AV fistula left arm, no bruit or thrill present. Lungs: Respirations even, regular, and unlabored on room air. Lungs CTA bilaterally, no rhonchi, no rales, no wheezing, and no accessory muscle usage. Abdominal: soft, nontender to palpation, no guarding, no appreciable organomegaly Ext: ROM intact. No gross muscle atrophy, no edema, no contractures Neuro: Speech clear, face symmetrical and CN II-XII grossly intact with no noted focal neuro deficits Psych: Alert and oriented to person, place, time, and situation. Appropriate and pleasant affect. Assessment and Plan of Care: Thrombosed AV fistula ESRD in need of dialysis Hyperkalemia, secondary to above Hypochloremic hyponatremia, secondary to volume overload High anion gap metabolic alkalosis, secondary to above -Vascular surgery planning and discussed with vascular surgery [employer] stating patient to be taken for left upper extremity venogram with intervention later this afternoon. -Nephrology following for management of hemodialysis once AV fistula use is restored -EKG was completed showing sinus bradycardia with a first-degree AV block at 59 bpm and a right bundle branch block. -Patient to remain on continuous telemetry monitoring. -Patient was given a one-time dose of Lokelma and started on IV Lasix 80 mg twice daily. -Hyperkalemia resolved with repeat potassium of 4.7. Insulin-dependent diabetes mellitus with hyperglycemia -Patient placed on glycemic protocol with [id number] glucose checks 4 times daily (with meals and at bedtime) -Order placed for patient to continue use of home insulin pump. CAD status post CABG x 2 followed by stent placement Chronic systolic heart failure -Continue cardiac medication regimen with aspirin 81 mg daily, Plavix 75 mg daily, Zetia 10 mg daily, isosorbide mononitrate 60 mg daily, metoprolol 25 mg twice daily, Ranexa 500 mg twice daily, rosuvastatin 10 mg nightly, and Entresto 24-26 mg tablets twice daily. -Most recent echocardiogram completed 06/07/2024 was reviewed showing a reduced EF of 40 to 45% with mild to moderate mitral regurgitation and moderate aortic stenosis. -Obtain EKG and patient to be placed on continuous telemetry monitoring. Obstructive sleep apnea Continue use of CPAP nightly and while napping. Anemia of chronic disease -Secondary to ESRD. Patient to continue with ferrous sulfate 325 mg daily. COPD, not in acute exacerbation Continue nebulizer treatments every 4 hours as needed for wheezing/shortness of breath. Patient to be provided with oxygen as needed to maintain SpO2 equal to or greater than 92%. Hypertension Monitor vital signs and continue daily medication regimen with isosorbide mononitrate 60 mg daily, and metoprolol 25 mg twice daily. Hyperlipidemia Continue daily medication regimen with rosuvastatin 20 mg nightly and Zetia 10 mg daily. BPH Continue Flomax 0.4 mg nightly. Data and imaging reviewed: -Labs reviewed. Repeat potassium 4.7. Blood glucose 114 this morning. -Vital signs stable. Blood pressure 131/64, heart rate 61, respiratory rate 16, temp 97.4 F, and SpO2 of 99% on room air. The patient is admitted with an anticipated greater than 2 midnight stay for evaluation of thrombosed AV fistula CODE STATUS: Full code DVT prophylaxis: Heparin Anticipated discharge date: Pending clinical course Anticipated discharge place: Home Patient was seen independently by Nurse Practitioner. This document was prepared using [employer] dictation software. Please allow for errors in auto electrical technician while rare they do occur. Manuel Ivey NP rendered care for this patient independently, reviewed the findings and plan as documented in the note above and agree with plan. I did not physically speak with or examine the patient on this date. Objective - Vital Signs Vital signs: Vital Signs Temp 97.4 F L 06/20/24 07:00 Pulse 61 06/20/24 07:00 Resp 16 06/20/24 07:00 BP 131/64 06/20/24 07:00 Pulse Ox 99 06/20/24 07:00 FiO2 Intake & Output 06/19/24 06/20/24 06/20/24 18:59 06:59 18:59 Weight 96.162 kg 96.162 kg - Labs CBC & Chem 7: 06/19/24 08:09 06/19/24 15:41 Labs: Abnormal Lab Results - Last 24 Hours (Table) 06/19/24 06/19/24 06/19/24 Range/Units 08:09 08:09 20:11 RBC 3.51 L (4.30-5.90) m/uL Hgb 11.4 L (13.0-17.5) gm/dL Hct 34.1 L (39.0-53.0) % Sodium 136 L (137-145) mmol/L Potassium 5.2 H (3.5-5.1) mmol/L Chloride 97 L (98-107) mmol/L BUN 74 H (9-20) mg/dL Creatinine 5.93 H (0.66-1.25) mg/dL Glucose 268 H (74-99) mg/dL POC Glucose (mg/dL) 157 H (70-110) mg/dL Calcium 8.2 L (8.4-10.2) mg/dL Phosphorus 5.8 H (2.5-4.5) mg/dL 06/20/24 Range/Units 06:04 RBC (4.30-5.90) m/uL Hgb (13.0-17.5) gm/dL Hct (39.0-53.0) % Sodium (137-145) mmol/L Potassium (3.5-5.1) mmol/L Chloride (98-107) mmol/L BUN (9-20) mg/dL Creatinine (0.66-1.25) mg/dL Glucose (74-99) mg/dL POC Glucose (mg/dL) 114 H (70-110) mg/dL Calcium (8.4-10.2) mg/dL Phosphorus (2.5-4.5) mg/dL
[2024-06-20 17:40] LABS: Glucose,Whole Blood 67 mg/dL (70-110)
--- NOTE | 2024-06-20 18:01 | P.OP ---
Date of Procedure: 06/20/24 Description of Procedure: Preoperative diagnosis: End-stage renal disease, thrombosed left upper extremity loop forearm graft Postoperative diagnosis: Same, outflow stenosis, graft stenosis at the outflow access Procedure: #1 ultrasound-guided left upper extremity loop AV graft access x 2 Left upper extremity venogram Left upper extremity angiogram via brachial artery Pharmacomechanical thrombectomy with AngioJet Percutaneous transluminal balloon angioplasty 8 x 40 outflow anastomosis Moderate conscious sedation with personal monitoring certified RN administration x 44 minutes Surgeon: Beronica Tomlinson D.O. EBL: 20 cc IV fluids: See records Urine output: Not measured Drains: None Complications: None immediately apparent Condition: Stable Operative indication and findings: Patient is a 73-year-old male with end-stage renal disease who had been having dialysis relatively well without any significa nt issues who went to dialysis and was found to have a thrombosed graft. He was offered percutaneous thrombectomy. He seems understood and is willing to proceed. Procedure in detail: Patient was taken to the special suite and placed in supine position. The left upper extremity was prepped and draped in usual sterile fashion. A preprocedure timeout was performed, all parties were in agreement. Using ultrasound, the graft was accessed first in the outflow direction. Seldinger technique was used to place a 6 Guamanian sheath. A permanent image had been stored. Catheters and wires were used to access the outflow vein. A venogram was performed past anastomosis showing a widely patent cephalic vein with good flow into the deep system at the level of the shoulder. Through the catheter, tPA was instilled and left to dwell. Attention was then turned towards the inflow. Again an ultrasound was utilized, the graft was accessed and a 6 Guamanian sheath was placed. Catheters and wires were used to access the brachial artery. An angiogram was performed showing patent brachial, radial and ulnar vessels with calcific disease. There did appear to be early washing of contrast to the venous system from this regard even with a thrombosed fistula. It is uncertain if there is an AV fistula bone potential trauma although not directly visualized versus contrast trickle through the graft causing this.. The tPA was then instilled and left to dwell through the remainder of the catheter. Attention was then turned back to the outflow where the suction thrombectomy was performed with multiple passes. A repeat image was performed showing significant improvement without any residual thrombus. There was evidence of stenosis at the outflow anastomosis and access portion therefore a 8 x 40 balloon was utilized. There was significant improvement of the outflow stenosis. Attention was then turned towards the inflow, the thrombectomy catheter was passed multiple times. There was improvement with return of pulsatility and thrill through the graft. An angiogram for the brachial artery was performed showing no significant anastomotic narrowing with brisk flow through the graft. Catheters and wires were then removed. [id number] sutures were placed and the sheaths were removed. Manual pressure was held until hemostasis is adequate. The patient was allowed to awaken and transferred to recovery in stable condition.
--- NOTE | 2024-06-20 18:01 | IR ---
EXAMINATION TYPE: IR fistula/abscess/sinus tract DATE OF EXAM: 06/20/2024 5:22 PM COMPARISON: Pre Operative Images if available both CT/MRI or plain film CLINICAL INDICATION: Male, 73 years old with history of Dialysis, 6.0m/3.8DAP, Lt lower arm puncutre suture x 2 dr; TECHNIQUE: IR fistula/abscess/sinus tract, multiple fluoroscopic images provided for procedure. Total fluoroscopy time: 6.0 min Total submitted images to PACS: 180 DAP: 3.80 mGym2 Gycm2 uGym2 cGycm2 or equivalent. FINDINGS: IMPRESSION: 1. Report was generated for administrative purposes only. 2. Please see the operative/procedural note for further details. [facility], , 06/20/2024 5:58 PM
[2024-06-20 18:37] LABS: Glucose,Whole Blood 104 mg/dL (70-110)
[2024-06-20 20:15] LABS: Glucose,Whole Blood 224 mg/dL (70-110)
[2024-06-20] MEDS ORDERED: ONDANSETRON 4 MG/2 ML VIAL IVP PRN (20:33)
[2024-06-21] MEDS: ALPRAZolam 0.5 MG TAB PO PRN (02:42)
[2024-06-21 06:31] LABS: Glucose,Whole Blood 269 mg/dL (70-110)
--- NOTE | 2024-06-21 08:22 | P.PN ---
Subjective Progress Note Date: 06/21/24 Principal diagnosis: Thrombosed AV graft Patient is seen and examined today as a follow-up. He is status post left upper extremity venogram, pharmacomechanical thrombectomy with angioplasty. He denies any pain in his left upper extremity. He was able to receive dialysis yesterday without any incident per dialysis note. Patient is a Tuesday schedule so likely will get dialysis again today. Objective - Vital Signs Vital signs: Vital Signs Temp 97.9 F 06/21/24 01:04 Pulse 76 06/21/24 01:04 Resp 16 06/21/24 01:04 BP 122/66 06/21/24 01:04 Pulse Ox 97 06/21/24 00:30 FiO2 Intake & Output 06/20/24 06/21/24 06/21/24 18:59 06:59 18:59 Intake Total 168 500 Output Total 4500 Balance 168 -4000 Intake: IV 50 Oral 118 Hemodialysis 500 Output: Hemodialysis 2500 Hemodialysis Net Amount 2000 - Exam General appearance: The patient is alert, oriented, appears in no acute di stress. HET: Head is normocephalic and atraumatic. Neck: Supple. Heart: Regular. Lungs: Equal expansion, normal respiratory effort. Abdomen: Soft, nontender, nondistended. Extremities: Normal skin color and turgor. Left upper extremity AV graft with palpable thrill and audible bruit. Neurological: No focal deficits. Strength and sensation are grossly intact. - Labs CBC & Chem 7: 06/19/24 08:09 06/19/24 15:41 Labs: Abnormal Lab Results - Last 24 Hours (Table) 06/20/24 06/20/24 06/20/24 Range/Units 11:54 17:39 20:14 POC Glucose (mg/dL) 60 L 67 L 224 H (70-110) mg/dL 06/21/24 Range/Units 06:30 POC Glucose (mg/dL) 269 H (70-110) mg/dL Assessment and Plan Assessment: 1. Thrombosed left upper extremity AV loop graft with outflow stenosis status post venogram with pharmacomechanical thrombectomy and balloon angioplasty 2. End-stage renal disease on hemodialysis 3. Coronary artery disease Plan: 1. Patient is status post venogram with pharmacomechanical thrombectomy and balloon angioplasty 2. Continue with recommendations and hemodialysis orders per nephrology 3. Rest of medical management per primary medical team 4. May resume Plavix 5. Renal diet Thank you for this consultation, patient is cleared from vascular surgery for discharge. The impression and plan of care has been dictated as directed. Dr. Tomlinson I performed a history and examination of this patient, discussed the same with the dictator. I agree with the dictator's note ,documented as a scribe. Any additional findings or plans will be noted.
[2024-06-21 08:30] VITALS: PULSE 67
[2024-06-21 08:48] LABS: HCT 36.7 % (39.6-50.0); HGB 12.2 g/dL (13.0-17.0); MCH 31.9 pg (27.0-32.0); MCHC 33.2 g/dL (32.0-37.0); MCV 96.1 FL (80.0-97.0); Mean Platelet Volume 11.3 FL (9.5-12.2); NRBC Per 100 WBC 0 X 10*3/uL (0.00-0.01); Platelet Count 143 X 10*3/uL (140-440); RBC 3.82 X 10*6/uL (4.40-5.60); RDW 13.9 % (11.5-14.5); WBC 6.72 X 10*3/uL (4.50-10.00)
[2024-06-21 09:30] LABS: ALT 46 U/L (10-49); AST 112 U/L (14-35); Albumin 3.9 g/dL (3.8-4.9); Alkaline Phosphatase 145 U/L (41-126); BUN/Creat Ratio 9.49 Ratio (12.00-20.00); Blood Urea Nitrogen 40.8 mg/dL (9.0-27.0); Calcium 8.7 mg/dL (8.7-10.3); Carbon Dioxide 25.3 mmol/L (21.6-31.8); Chloride 94 mmol/L (96-109); Glucose 307 mg/dL (70-110); Potassium 4.9 mmol/L (3.5-5.5); Sodium 135 mmol/L (135-145); Total Bilirubin 0.7 mg/dL (0.3-1.2); Total Protein 6.9 g/dL (6.2-8.2)
--- NOTE | 2024-06-21 11:43 | P.DS ---
Providers Date of admission: 06/19/24 08:05 Expected date of discharge: 06/21/24 Attending physician: Harpal Richardson MD Consults: 06/19/24 08:12 Consult Physician Urgent Consulting Provider: Beronica Tomlinson Consult Reason/Comments: Thrombosed AV fistula Do you want consulting provider notified?: Already Contacted 06/19/24 08:17 Consult Physician Routine Consulting Provider: Simba Posey Consult Reason/Comments: Dialysis Do you want consulting provider notified?: Yes Primary care physician: [facility] Course: Discharge Diagnosis: Thrombosed AV fistula. Patient admitted under our services with consultation to vascular surgery and nephrology. Vascular surgery evaluated and took patient for left upper extremity venogram with intervention. Patient then underwent dialysis yesterday evening and again this morning. He has been cleared from vascular surgery perspective for discharge and cleared from nephrology perspective for discharge. Patient is medically optimized and denies having any complaints at this time. Patient being discharged and to follow-up outpatient with PCP in 1 to 2 days, vascular surgery in 2 weeks, and with nephrology as scheduled. Patient to continue dialysis on Tuesdays//Fridays as previously arranged. Dialysis to remove sutures at next dialysis appointment. ESRD in need of dialysis Hyperkalemia, secondary to above. Resolved. Hypochloremic hyponatremia, secondary to volume overload High anion gap metabolic alkalosis, secondary to above Insulin-dependent diabetes mellitus with hyperglycemia. Continue use of home insulin pump. CAD status post CABG x 2 followed by stent placement. Continue cardiac medication regimen with aspirin 81 mg daily, Plavix 75 mg daily, Zetia 10 mg daily, isosorbide mononitrate 60 mg daily, metoprolol 25 mg twice daily, Ranexa 500 mg twice daily, rosuvastatin 10 mg nightly, and Entresto 24-26 mg tablets twice daily. Chronic systolic heart failure.Continue cardiac medication regimen with aspirin 81 mg daily, Plavix 75 mg daily, Zetia 10 mg daily, isosorbide mononitrate 60 mg daily, metoprolol 25 mg twice daily, Ranexa 500 mg twice daily, rosuvastatin 10 mg nightly, and Entresto 24-26 mg tablets twice daily. Obstructive sleep apnea Continue use of CPAP nightly and while napping. Anemia of chronic disease Secondary to ESRD. Patient to continue with ferrous sulfate 325 mg daily. COPD, not in acute exacerbation Hypertension. Continue daily medication regimen with isosorbide mononitrate 60 mg daily, and metoprolol 25 mg twice daily. Hyperlipidemia Continue daily medication regimen with rosuvastatin 20 mg nightly and Zetia 10 mg daily. BPH Continue Flomax 0.4 mg nightly. Hospital Course: Patient is a very pleasant 73-year-old male with a past medical history of CAD status post CABG x2 in September 2023, multiple stents, ESRD on hemodialysis (/), chronic diastolic CHF, insulin-dependent diabetes mellitus with insulin pump, COPD, hypertension, hyperlipidemia, and obstructive sleep apnea CPAP dependent nightly. Patient was sent to the emergency department this mor santi from dialysis center secondary to concerns of thrombosed AV fistula. Patient is currently due for dialysis with last dialysis treatment being completed 06/17/2024. Patient currently free from any complaints including left arm numbness or tingling, headache, lightheadedness, dizziness, chest pain, palpitations, shortness of breath, exertional dyspnea, or any other complaints. Upon arrival to our facility, patient underwent evaluation in the emergency department. Vital signs upon arrival show blood pressure 144/69, heart rate 59, respiratory rate 18, temp 97.5 F, and SpO2 of 99% on room air. Labs completed and reviewed. CBC showing stable normocytic anemia with hemoglobin of 11.4. BMP revealing hyperkalemia with potassium of 5.2, hypochloremia with chloride of 97 and slightly elevated anion gap of 14 with renal function consistent with ESRD with BUN of 74, creatinine of 5.93, GFR of 9. Blood glucose 268. Magnesium 2.3. Liver profile unremarkable. Patient admitted under our services with consultation to vascular surgery and nephrology. Vascular surgery evaluated and took patient for left upper extremity venogram with intervention. Patient then underwent dialysis yesterday evening and again this morning. He has been cleared from vascular surgery perspective for discharge and cleared from nephrology perspective for discharge. Patient is medically optimized and denies having any complaints at this time. Patient being discharged and to follow-up outpatient with PCP in 1 to 2 days, vascular surgery in 2 weeks, and with nephrology as scheduled. Patient to continue dialysis on Tuesdays//Fridays as previously arranged. Dialysis to remove sutures at next dialysis appointment. Physical exam: Vital signs reviewed and stable. General: Nontoxic, no distress and appears stated age. Derm: Skin warm and dry, normal coloration for ethnicity. Head: Atraumatic, normocephalic and symmetric. Eyes: EOM's intact, no lid lag, and anicteric sclera Mouth: no lip lesions, mucus membranes moist Cardiovascular: regular rate and rhythm with normal S1S2, systolic murmur, positive posterior tibial pulses bilaterally, and cap refill < 2 seconds. AV fistula left arm, no bruit or thrill present. Lungs: Respirations even, regular, and unlabored on room air. Lungs CTA bilatera lly, no rhonchi, no rales, no wheezing, and no accessory muscle usage. Abdominal: soft, nontender to palpation, no guarding, no appreciable organomegaly Ext: ROM intact. No gross muscle atrophy, no edema, no contractures Neuro: Speech clear, face symmetrical and CN II-XII grossly intact with no noted focal neuro deficits Psych: Alert and oriented to person, place, time, and situation. Appropriate and pleasant affect. A total of 37 minutes of time were spent preparing this complex discharge summary. Pt was discharged on 06/21/2024 at 11:40 AM. Patient was seen independently by Nurse Practitioner. This document was prepared using [employer] dictation software. Please allow for errors in coremaker supervisor while rare they do occur. Manuel Ivey NP rendered care for this patient independently, reviewed the findings and plan as documented in the note above. I did not physically speak with or examine the patient on this date. Patient Condition at Discharge: Stable Plan - Discharge Summary Discharge Rx Participant: No New Discharge Prescriptions: Continue Ezetimibe [Zetia] 10 mg PO DAILY Ferrous Sulfate [Iron (65 MG Elemental)] 325 mg PO DAILY Insulin Aspart (For Pump) [NovoLOG (For Pump)] 0.01 unit SQ-PUMP CONTINUOUS Pramipexole [Mirapex] 0.5 mg PO BID PRN PRN Reason: Restless legs Albuterol Inhaler [Ventolin Hfa Inhaler] 2 puff INHALATION RT-Q4H PRN PRN Reason: Shortness Of Breath Glucagon Emergency Kit 1 mg IM ONCE PRN PRN Reason: Hypoglycemia Escitalopram [Lexapro] 10 mg PO DAILY Cetirizine HCl [Zyrtec] 10 mg PO DAILY Rosuvastatin [Crestor] 10 mg PO HS Metoprolol Tartrate [Lopressor] 25 mg PO BID 30 Days #60 tab Azithromycin [Zithromax Z Pack] See Taper PO DIRECTED Aspirin EC [Ecotrin Low Dose] 81 mg PO DAILY Tamsulosin [Flomax] 0.4 mg PO HS ALPRAZolam [Xanax] 0.5 mg PO HS PRN PRN Reason: Severe Anxiety Cholecalciferol [Vitamin D3 (25 Mcg = 1000 Iu)] 50 mcg PO DAILY Folic Acid/Vit B Complex and C [Nephro-Pooja Tablet] 0.8 mg PO DAILY Torsemide [Demadex] 40 mg PO SUMOWEFR Clopidogrel [Plavix] 75 mg PO DAILY #30 tab Nitroglycerin Sl Tabs [Nitrostat] 0.4 mg SUBLINGUAL Q5M PRN #25 tab PRN Reason: Chest Pain Topiramate [Topamax] 25 mg PO BID Ranolazine [Ranexa] 500 mg PO BID Isosorbide Mononitrate ER [Imdur] 60 mg PO DAILY 30 Days #30 tab Sacubitril/Valsartan [Entresto 24 mg-26 mg Tablet] 1 tab PO BID Discharge Medication List Ezetimibe [Zetia] 10 mg PO DAILY 05/19/16 [History] Ferrous Sulfate [Iron (65 MG Elemental)] 325 mg PO DAILY 05/19/16 [History] Insulin Aspart (For Pump) [NovoLOG (For Pump)] 0.01 unit SQ-PUMP CONTINUOUS 05/28/18 [History] Pramipexole [Mirapex] 0.5 mg PO BID PRN 05/02/19 [History] Albuterol Inhaler [Ventolin Hfa Inhaler] 2 puff INHALATION RT-Q4H PRN 08/10/21 [History] Aspirin EC [Ecotrin Low Dose] 81 mg PO DAILY 02/21/22 [History] Glucagon Emergency Kit 1 mg IM ONCE PRN 02/21/22 [History] Escitalopram [Lexapro] 10 mg PO DAILY 01/01/23 [History] ALPRAZolam [Xanax] 0.5 mg PO HS PRN 06/17/23 [History] Cholecalciferol [Vitamin D3 (25 Mcg = 1000 Iu)] 50 mcg PO DAILY 06/17/23 [History] Tamsulosin [Flomax] 0.4 mg PO HS 06/17/23 [History] Cetirizine HCl [Zyrtec] 10 mg PO DAILY 09/22/23 [History] Folic Acid/Vit B Complex and C [Nephro-Pooja Tablet] 0.8 mg PO DAILY 09/22/23 [History] Torsemide [Demadex] 40 mg PO SUMOWEFR 09/22/23 [History] Clopidogrel [Plavix] 75 mg PO DAILY #30 tab 10/24/23 [Rx] Nitroglycerin Sl Tabs [Nitrostat] 0.4 mg SUBLINGUAL Q5M PRN #25 tab 02/22/24 [Rx] Ranolazine [Ranexa] 500 mg PO BID 06/07/24 [History] Rosuvastatin [Crestor] 10 mg PO HS 06/07/24 [History] Topiramate [Topamax] 25 mg PO BID 06/07/24 [History] Isosorbide Mononitrate ER [Imdur] 60 mg PO DAILY 30 Days #30 tab 06/10/24 [Rx] Metoprolol Tartrate [Lopressor] 25 mg PO BID 30 Days #60 tab 06/10/24 [Rx] Azithromycin [Zithromax Z Pack] See Taper PO DIRECTED 06/19/24 [History] Sacubitril/Valsartan [Entresto 24 mg-26 mg Tablet] 1 tab PO BID 06/19/24 [History] Follow up Appointment(s)/Referral(s): Kevin Amador DO [STAFF PHYSICIAN] - 2 Weeks Marlon Valentino DO [Primary Care Provider] - 1-2 days Activity/Diet/Wound Care/Special Instructions: Dialysis to remove sutures at next dialysis appointment 06/21 Activity: As tolerated. Take breaks as needed. Diet: Heart healthy and carb consistent diet. Avoid salts, or foods with hidden salts such as canned or boxed foods and frozen dinners. Extra salt makes your heart work harder and traps the fluid in your body for longer. Special Instructions: Take all of your medications as directed and remember to keep all of your doctor's appointments and follow-up as needed. Thank you for allowing us to participate in your care, it was truly a pleasure having you for our patient!!! . Discharge Disposition: HOME SELF-CARE
--- NOTE | 2024-06-21 12:20 | P.PN ---
Subjective Patient is seen in follow-up for end-stage renal disease. He is maintained on hemodialysis on Tuesday schedule. Underwent balloon angioplasty of left upper extremity graft yesterday. No problems with dialysis yesterday postprocedure. Vital signs are stable. General: No acute distress. HEENT: Head exam is unremarkable. LUNGS: No audible rhonchi or wheezes. HEART: Rate and Rhythm are regular. ABDOMEN: Nontender. EXTREMITITES: No edema. Objective - Vital Signs Vital signs: Vital Signs Temp 98.5 F 06/21/24 07:00 Pulse 67 06/21/24 10:49 Resp 17 06/21/24 10:49 BP 99/61 06/21/24 07:00 Pulse Ox 100 06/21/24 07:00 FiO2 Intake & Output 06/20/24 06/21/24 06/21/24 18:59 06:59 18:59 Intake Total 168 500 118 Output Total 4500 Balance 168 -4000 118 Intake: IV 50 Oral 118 118 Hemodialysis 500 Output: Hemodialysis 2500 Hemodialysis Net Amount 2000 - Labs CBC & Chem 7: 06/21/24 04:30 06/21/24 04:30 Labs: Abnormal Lab Results - Last 24 Hours (Table) 06/20/24 06/20/24 06/21/24 Range/Units 17:39 20:14 04:30 RBC 3.82 L (4.40-5.60) X 10*6/uL Hgb 12.2 L (13.0-17.0) g/dL Hct 36.7 L (39.6-50.0) % Chloride (96-109) mmol/L Anion Gap (4.00-12.00) mmol/L BUN (9.0-27.0) mg/dL Creatinine (0.6-1.5) mg/dL Est GFR (CKD-EPI) (>=60) BUN/Creatinine Ratio (12.00-20.00) Ratio Glucose (70-110) mg/dL POC Glucose (mg/dL) 67 L 224 H (70-110) mg/dL AST (14-35) U/L Alkaline Phosphatase (41-126) U/L Albumin/Globulin Ratio (1.60-3.17) Ratio 06/21/24 06/21/24 Range/Units 04:30 06:30 RBC (4.40-5.60) X 10*6/uL Hgb (13.0-17.0) g/dL Hct (39.6-50.0) % Chloride 94 L (96-109) mmol/L Anion Gap 15.70 H (4.00-12.00) mmol/L BUN 40.8 H (9.0-27.0) mg/dL Creatinine 4.3 H (0.6-1.5) mg/dL Est GFR (CKD-EPI) 14 L (>=60) BUN/Creatinine Ratio 9.49 L (12.00-20.00) Ratio Glucose 307 H (70-110) mg/dL POC Glucose (mg/dL) 269 H (70-110) mg/dL AST 112 H (14-35) U/L Alkaline Phosphatase 145 H (41-126) U/L Albumin/Globulin Ratio 1.30 L (1.60-3.17) Ratio Assessment and Plan Plan: Assessment: 1. End-stage renal disease maintained on hemodialysis on Tuesday schedule. 2. Clotted AV graft. Vascular surgery following. Status post balloon angioplasty June 20, 2024. 3. Coronary disease status post CABG and subsequent cardiac stenting. 4. Diabetes mellitus. 5. Hypertension with chronic kidney disease. Stable. Plan: Currently seen while undergoing hemodialysis. Next treatment Tuesday. Transition to oral torsemide upon discharge.
[2024-06-21 12:51] VITALS: BP 123/62; RESP 16; TEMP 36.7
== END 2024-06-21 12:50 | disposition home or self-care (01) ==
LOC: EC 07:28 → 6NMEDSUR 08:05
PROVIDERS: ADMIT Family Medicine; ATTEND Family Medicine
DX: T82.868A Thrombosis due to vascular prosthetic devices, implants and grafts, initial encounter (principal); Y83.2 Surgical operation with anastomosis, bypass or graft as the cause of abnormal reaction of the patient, or of later complication, without mention of misadventure at the time of the procedure; E11.22 Type 2 diabetes mellitus with diabetic chronic kidney disease; I13.2 Hypertensive heart and chronic kidney disease with heart failure and with stage 5 chronic kidney disease, or end stage renal disease; I50.42 Chronic combined systolic (congestive) and diastolic (congestive) heart failure; N18.6 End stage renal disease; E87.5 Hyperkalemia; E87.1 Hypo-osmolality and hyponatremia; N40.0 Benign prostatic hyperplasia without lower urinary tract symptoms; E87.3 Alkalosis; E11.65 Type 2 diabetes mellitus with hyperglycemia; D63.1 Anemia in chronic kidney disease; I25.10 Atherosclerotic heart disease of native coronary artery without angina pectoris; G47.33 Obstructive sleep apnea (adult) (pediatric); J44.9 Chronic obstructive pulmonary disease, unspecified; E78.5 Hyperlipidemia, unspecified; E11.40 Type 2 diabetes mellitus with diabetic neuropathy, unspecified; F41.9 Anxiety disorder, unspecified; I25.2 Old myocardial infarction; Z87.891 Personal history of nicotine dependence; Z95.5 Presence of coronary angioplasty implant and graft; Z96.41 Presence of insulin pump (external) (internal); Z99.2 Dependence on renal dialysis; Z79.02 Long term (current) use of antithrombotics/antiplatelets; Z79.82 Long term (current) use of aspirin; Z79.899 Other long term (current) drug therapy
CPT/HCPCS: 96376 ×3; 96372 ×2; 96374; 99285; 36415; 93005; 76937; 36905; 80053 ×2; 83735 ×2; 84100; 84132; 85025; 85027; 85610; 85730; G0378 ×3; C1894; C1769 ×3; C1725; C1757; J2250; J1644 ×2; J1940 ×3; J2003; J3010; J2997; Q9966; 90935

== ENCOUNTER 2024-07-04 08:08 | Observation (INO) | payer MEDICARE ==
--- NOTE | 2024-07-04 08:34 | ED ---
General Adult HPI - General Chief complaint: Chest Pain Stated complaint: chest pain Time Seen by Provider: 07/04/24 08:08 Source: patient, EMS, RN notes reviewed, old records reviewed Mode of arrival: EMS Limitations: no limitations - History of Present Illness Initial comments: Patient is a 73-year-old male presents emergency department complaint of chest pain. He has a history of angina, ESRD on hemodialysis, diabetes, hyperlipidemia, hypertension, CABG, CAD. Missed dialysis yesterday and typically goes Tuesday, , Tuesday. States he has been dealing with exertional chest pain for days. More severe yesterday but has been an ongoing issue. Was seen last month for similar complaints and cardiac cath at that time revealed multivessel disease. No intervention at that time. Aggressive risk factor modification. The CAD was similar to previous cath in January 2024. States he gets substernal and left-sided chest pain that does not radiate. Currently has no pain as he took 3 nitro at home, and was given additional nitro as well as fentanyl by EMS. Denies shortness of breath, diaphoresis, nausea or vomiting. Did have 1 episode of vomiting within the last few days but was not related to the chest pain. Denies abdominal pain. Has no other acute complaints at this time. Presents for further evaluation at this time. - Related Data Home Medications Medication Instructions Recorded Confirmed Ezetimibe [Zetia] 10 mg PO DAILY 05/19/16 07/04/24 Ferrous Sulfate [Iron (65 MG 325 mg PO DAILY 05/19/16 07/04/24 Elemental)] Insulin Aspart (For Pump) [NovoLOG 0.01 unit SQ-PUMP CONTINUOUS 05/28/18 07/04/24 (For Pump)] Pramipexole [Mirapex] 0.5 mg PO BID PRN 05/02/19 07/04/24 Albuterol Inhaler [Ventolin Hfa 2 puff INHALATION RT-Q4H PRN 08/10/21 07/04/24 Inhaler] Aspirin EC [Ecotrin Low Dose] 81 mg PO DAILY 02/21/22 07/04/24 Glucagon Emergency Kit 1 mg IM ONCE PRN 02/21/22 07/04/24 Escitalopram [Lexapro] 10 mg PO DAILY 01/01/23 07/04/24 ALPRAZolam [Xanax] 0.5 mg PO HS PRN 06/17/23 07/04/24 Cholecalciferol [Vitamin D3 (25 50 mcg PO DAILY 06/17/23 07/04/24 Mcg = 1000 Iu)] Tamsulosin [Flomax] 0.4 mg PO HS 06/17/23 07/04/24 Cetirizine HCl [Zyrtec] 10 mg PO DAILY 09/22/23 07/04/24 Folic Acid/Vit B Complex and C 0.8 mg PO DAILY 09/22/23 07/04/24 [Nephro-Pooja Tablet] Torsemide [Demadex] 40 mg PO SUMOWEFR 09/22/23 07/04/24 Ranolazine [Ranexa] 500 mg PO BID 06/07/24 07/04/24 Rosuvastatin [Crestor] 10 mg PO HS 06/07/24 07/04/24 Topiramate [Topamax] 25 mg PO BID 06/07/24 07/04/24 Sacubitril/Valsartan [Entresto 24 1 tab PO BID 06/19/24 07/04/24 mg-26 mg Tablet] Isosorbide Mononitrate ER [Imdur] 30 mg PO DAILY 07/04/24 07/04/24 Nitroglycerin Sl Tabs [Nitrostat] 0.4 mg SL Q5M PRN 07/04/24 07/04/24 Previous Rx's Medication Instructions Recorded Clopidogrel [Plavix] 75 mg PO DAILY #30 tab 10/24/23 Metoprolol Tartrate [Lopressor] 25 mg PO BID 30 Days #60 tab 06/10/24 Allergies Allergy/AdvReac Type Severity Reaction Status Date / Time zolpidem [From Ambien] Allergy Hallucinati Verified 07/04/24 09:44 ons atorvastatin [From Lipitor] AdvReac jt and Verified 07/04/24 09:44 muscle pain baclofen AdvReac caused a Verified 07/04/24 09:44 fall Review of Systems ROS Statement: Those systems with pertinent positive or pertinent negative responses have been documented in the HPI. Review of Systems: CONST: Denies fever EYES: Denies blurry vision ENT: Denies nasal congestion C/V: Endorses resolved chest pain RESP: Denies shortness of breath GI: Denies abdominal pain : Denies dysuria SKIN: Denies rash. MSK: Denies joint pain. NEURO: Denies headache ROS Other: All systems not noted in ROS Statement are negative. Past Medical History Past Medical History: Blood Disorder, Coronary Artery Disease (CAD), Chest Pain / Angina, Heart Failure, COPD, Diabetes Mellitus, Dialysis, Hearing Disorder / Deafness, Hyperlipidemia, Hypertension, Myocardial Infarction ([place]), Osteoarthritis (OA), Renal Disease, Sleep Apnea/CPAP/BIPAP Additional Past Medical History / Comment(s): has insulin pump and contiunuous blood glucose monitor,fell at home on Tuesday10-10-23"got dizzy"-no injury,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. Chronic renal failure, dialysis [facility] normally. Patient has insulin pump. Has CPAP, occasionally uses. Neuropathy in feet and hands. Poor hearing. Last Myocardial Infarction Date:: History of Any Multi-Drug Resistant Organisms: None Reported Past Surgical History: Cholecystectomy, Coronary Bypass/CABG, Heart Catheterization, Heart Catheterization With Stent, Orthopedic Surgery Additional Past Surgical History / Comment(s): Shoulder surgery-no hardware, hemorrhoidectomy, eye surgery,4 cardiac stents,AV fistula left forearm, double vessle CABG 10/17/23 Past Anesthesia/Blood Transfusion Reactions: No Reported Reaction Additional Past Anesthesia/Blood Transfusion Reaction / Comment(s): Never had a blood transfusion. Date of Last Stent Placement:: 2004,2014,2023 Past Psychological History: Anxiety Additional Psychological History / Comment(s): Shopping and crowds bother patient. Smoking Status: Former smoker Past Alcohol Use History: None Reported Additional Past Alcohol Use History / Comment(s): Quit smoking in 1980. Past Drug Use History: None Reported - Past Family History Father Family Medical History: Cancer Additional Family Medical History / Comment(s): Bladder cancer. Mother Family Medical History: Cancer, Diabetes Mellitus Additional Family Medical History / Comment(s): Pancreatic cancer. General Exam Limitations: no limitations Course Vital Signs 07/04/24 07/04/24 07/04/24 08:10 09:00 10:00 Temperature 97.8 F Pulse Rate 64 60 60 Respiratory 18 15 12 Rate Blood Pressure 113/50 115/54 102/50 O2 Sat by Pulse 97 96 96 Oximetry 07/04/24 07/04/24 07/04/24 11:00 12:01 13:20 Temperature 97.7 F Pulse Rate 56 L 62 55 L Respiratory 16 16 16 Rate Blood Pressure 133/63 135/56 120/57 O2 Sat by Pulse 97 97 97 Oximetry 07/04/24 14:38 Temperature Pulse Rate 52 L Respiratory 18 Rate Blood Pressure 123/56 O2 Sat by Pulse 98 Oximetry Medical Decision Making - Medical Decision Making Was pt. sent in by a medical professional or institution (, PA, ORTHODONTIST ASSISTANT, urgent care, hospital, or retirement...) When possible be specific @ -No Did you speak to anyone other than the patient for history (EMS, parent, family, police, friend...)? What history was obtained from this source @ -No Did you review nursing and triage notes (agree or disagree)? Why? @ -I reviewed and agree with nursing and triage notes Were old charts reviewed (outside hosp., previous admission, EMS record, old EKG, old radiological studies, urgent care reports/EKG's, retirement records)? Report findings @ -Old charts reviewed from June 2024 when patient had cardiac cath which showed CAD however was unchanged per infrastructure engineer at the time Dr. Castle from cardiac cath from January 2024. No intervention at that time. Differential Diagnosis (chest pain, altered mental status, abdominal pain women, abdominal pain men, vaginal bleeding, weakness, fever, dyspnea, syncope, headache, dizziness, GI bleed, back pain, seizure, CVA, palpatations, mental health, musculoskeletal)? @ -Differential Chest Pain: Stable Angina, Unstable Angina, STEMI, NSTEMI Aortic Dissection, Pneumothorax, Musculoskeletal, Esophageal Spasm GERD, Cholecystitis, Pancreatitis, Zoster, this is not meant to be an all-inclusive list. EKG interpreted by me (3pts min.). @ -As above X-rays interpreted by me (1pt min.). @ -Chest x-ray reveals no obvious acute cardiopulmonary process. CT interpreted by me (1pt min.). @ -None done U/S interpreted by me (1pt. min.). @ -None done What testing was considered but not performed or refused? (CT, X-rays, U/S, labs)? Why? @ -None What meds were considered but not given or refused? Why? @ -Considered aspirin however patient already received 324 mg of aspirin from EMS on the way to the hospital. Did you discuss the management of the patient with other professionals (professionals i.e. , PA, ORTHODONTIST ASSISTANT, lab, RT, psych nurse, high school social studies tutor, entertainment reporter, teacher, unclaimed property officer, manager of case)? Give summary @ -Discussed the case with the admitting team, [facility] who accepted the admission. Discussed the case with surg rn Dr. Troy who is in agreement with the plan. Was smoking cessation discussed for >3mins.? @ -No Was critical care preformed (if so, how long)? @ -yes, 32 minutes Were there social determinants of health that impacted care today? How? (Homelessness, low income, unemployed, alcoholism, drug addiction, transportation, low edu. Level, literacy, decrease access to med. care, [facility], rehab)? @ -No Was there de-escalation of care discussed even if they declined (Discuss DNR or withdrawal of care, Hospice)? DNR status @ -No What co-morbidities impacted this encounter? (DM, HTN, Smoking, COPD, CAD, Cancer, CVA, ARF, Chemo, Hep., AIDS, mental health diagnosis, sleep apnea, morbid obesity)? @ -ESRD on hemodialysis, CAD, CABG, angina Was patient admitted / discharged? Hospital course, mention meds given and route, prescriptions, significant lab abnormalities, going to OR and other pertinent info. @ -Based on patient's presentation and physical exam, is presenting with acute on chronic chest pain symptoms. Does have a history of angina. I am concerned for ACS. Patient received 324 mg of aspirin. Patient will be started on a heparin drip. Currently pain is under control and we will start Nitropaste. Vitals are within acceptable limits. Patient missed dialysis yesterday and we will obtain laboratory studies. Patient will likely be admitted to the hospital for dialysis as well as cardiac observation. Patient was in agreement this plan. EKG shows no signs of acute ischemia.Imaging unremarkable. Laboratory studies remarkable for elevated BUN and creatinine in the setting of ESRD. Mildly elevated potassium at 5.2. Troponin is elevated to 0.044 which could be secondary to the chest pain and ACS but also could be secondary to ESRD and hemodialysis. On reevaluation, patient is resting comfortably with no symptoms. We will continue with admission at this time. Patient was heparinized due to the concern for ACS as well as his symptoms. He still has Nitropaste on board. We will trend the troponin. I spoke with the admitting provider, [facility] who accepted the admission. Cardiology consulted. Undiagnosed new problem with uncertain prognosis? @ -No Drug Therapy requiring intensive monitoring for toxicity (Heparin, Nitro, Insulin, Cardizem)? @ -Heparin Were any procedures done? @ -No Diagnosis/symptom? @ -Chest pain, missed dialysis Acute, or Chronic, or Acute on Chronic? @ -Acute Uncomplicated (without systemic symptoms) or Complicated (systemic symptoms)? @ -Complicated Side effects of treatment? @ -None Exacerbation, Progression, or Severe Exacerbation] @ -No Poses a threat to life or bodily function? @ -Possibly, yes - Lab Data Result diagrams: 07/04/24 08:27 07/04/24 08:27 Lab Results 07/04/24 07/04/24 07/04/24 Range/Units 08:27 08:27 08:27 WBC 4.9 (3.8-10.6) k/uL RBC 3.17 L (4.30-5.90) m/uL Hgb 10.3 L (13.0-17.5) gm/dL Hct 30.6 L (39.0-53.0) % MCV 96.7 (80.0-100.0) fL MCH 32.6 (25.0-35.0) pg MCHC 33.7 (31.0-37.0) g/dL RDW 14.0 (11.5-15.5) % Plt Count 173 (150-450) k/uL MPV 8.5 Neutrophils % 58 % Lymphocytes % 28 % Monocytes % 7 % Eosinophils % 4 % Basophils % 0 % Neutrophils # 2.8 (1.3-7.7) k/uL Lymphocytes # 1.4 (1.0-4.8) k/uL Monocytes # 0.3 (0-1.0) k/uL Eosinophils # 0.2 (0-0.7) k/uL Basophils # 0.0 (0-0.2) k/uL PT 11.0 (10.0-12.5) sec INR 1.0 (<1.2) APTT 27.3 (22.0-30.0) sec Sodium 136 L (137-145) mmol/L Potassium 5.2 H (3.5-5.1) mmol/L Chloride 97 L (98-107) mmol/L Carbon Dioxide 23 (22-30) mmol/L Anion Gap 16 mmol/L BUN 61 H (9-20) mg/dL Creatinine 7.08 H* (0.66-1.25) mg/dL Est GFR (CKD-EPI)AfAm 8 (>60 ml/min/1.73 sqM) Est GFR (CKD-EPI)NonAf 7 (>60 ml/min/1.73 sqM) Glucose 191 H (74-99) mg/dL Calcium 8.2 L (8.4-10.2) mg/dL Magnesium 2.2 (1.6-2.3) mg/dL Total Bilirubin 0.6 (0.2-1.3) mg/dL AST 20 (17-59) U/L ALT 19 (4-49) U/L Alkaline Phosphatase 105 (38-126) U/L Troponin I (0.000-0.034) ng/mL Total Protein 7.1 (6.3-8.2) g/dL Albumin 4.0 (3.5-5.0) g/dL Influenza Type A (PCR) (Not Detectd) Influenza Type B (PCR) (Not Detectd) RSV (PCR) (Not Detectd) SARS-CoV-2 (PCR) (Not Detectd) 07/04/24 07/04/24 Range/Units 08:27 09:29 WBC (3.8-10.6) k/uL RBC (4.30-5.90) m/uL Hgb (13.0-17.5) gm/dL Hct (39.0-53.0) % MCV (80.0-100.0) fL MCH (25.0-35.0) pg MCHC (31.0-37.0) g/dL RDW (11.5-15.5) % Plt Count (150-450) k/uL MPV Neutrophils % % Lymphocytes % % Monocytes % % Eosinophils % % Basophils % % Neutrophils # (1.3-7.7) k/uL Lymphocytes # (1.0-4.8) k/uL Monocytes # (0-1.0) k/uL Eosinophils # (0-0.7) k/uL Basophils # (0-0.2) k/uL PT (10.0-12.5) sec INR (<1.2) APTT (22.0-30.0) sec Sodium (137-145) mmol/L Potassium (3.5-5.1) mmol/L Chloride (98-107) mmol/L Carbon Dioxide (22-30) mmol/L Anion Gap mmol/L BUN (9-20) mg/dL Creatinine (0.66-1.25) mg/dL Est GFR (CKD-EPI)AfAm (>60 ml/min/1.73 sqM) Est GFR (CKD-EPI)NonAf (>60 ml/min/1.73 sqM) Glucose (74-99) mg/dL Calcium (8.4-10.2) mg/dL Magnesium (1.6-2.3) mg/dL Total Bilirubin (0.2-1.3) mg/dL AST (17-59) U/L ALT (4-49) U/L Alkaline Phosphatase (38-126) U/L Troponin I 0.044 H* (0.000-0.034) ng/mL Total Protein (6.3-8.2) g/dL Albumin (3.5-5.0) g/dL Influenza Type A (PCR) Not Detected (Not Detectd) Influenza Type B (PCR) Not Detected (Not Detectd) RSV (PCR) Not Detected (Not Detectd) SARS-CoV-2 (PCR) Not Detected (Not Detectd) - EKG Data -: EKG Interpreted by Me EKG Comments: 12-lead Electrocardiogram Interpretation Note EKG was reviewed and interpreted by myself. 12-lead ECG performed at 0818 is interpreted by me as revealing normal sinus rhythm with right bundle branch block at a rate of 62 beats per minute. Left axis deviation. MO interval is 299 ms, QRS duration is 174 ms, QTc is 497 ms.. There were no ST or T wave abnormalities to suggest myocardial ischemia or injury. R wave progression across the precordium was satisfactory. By my interpretation this EKG is non- diagnostic for acute ischemia. Compared with EKG from June 2024, no significant dynamic changes. Disposition Clinical Impression: Chest pain, Elevated troponin, Missed dialysis Disposition: [facility] Condition: Stable Time of Disposition: 10:50
[2024-07-04 08:45] LABS: Basophils % (A) 0 %; Eosinophils # (A) 0.2 k/uL (0-0.7); Eosinophils % (A) 4 %; HCT 30.6 % (39.0-53.0); HGB 10.3 gm/dL (13.0-17.5); Lymphocytes # (A) 1.4 k/uL (1.0-4.8); Lymphocytes % (A) 28 %; MCH 32.6 pg (25.0-35.0); MCHC 33.7 g/dL (31.0-37.0); MCV 96.7 fL (80.0-100.0); Mean Platelet Volume 8.5; Monocytes # (A) 0.3 k/uL (0-1.0); Monocytes % (A) 7 %; Neutrophils # (A) 2.8 k/uL (1.3-7.7); Neutrophils % (A) 58 %; Platelet Count 173 k/uL (150-450); RBC 3.17 m/uL (4.30-5.90); WBC 4.9 k/uL (3.8-10.6)
[2024-07-04] MEDS: NITROGLYCERIN OINT 1 INCH/GM PACKET TOPICAL SCH (08:51)
[2024-07-04] MEDS: HEPARIN SODIUM 1,000 UN/ML (10ML VL) IV ONE (08:52)
--- NOTE | 2024-07-04 08:52 | XR ---
EXAMINATION TYPE: XR chest 2V DATE OF EXAM: 07/04/2024 8:47 AM COMPARISON: 06/07/2024 CLINICAL INDICATION: Male, 73 years old with history of Chest Pain, , TECHNIQUE: PA and lateral views FINDINGS: Heart borderline to mildly enlarged. Median sternotomy wires and post-CABG clips. Some strandy atelec tasis in the lower lungs. No consolidation or pleural effusion. [facility] mid thoracic spine. Cholecystect mariano clips. IMPRESSION: Borderline to mild cardiomegaly. Some strandy lower lung atelectasis. [facility], , 07/04/2024 8:50 AM
[2024-07-04 08:55] LABS: Partial Thromboplastin Time 27.3 sec (22.0-30.0)
[2024-07-04] MEDS: HEPARIN SOD,PORK IN 0.45% NACL 25,000 UNIT in 0.45% NACL 1 250ML.BAG IV SCH (08:57)
[2024-07-04 09:52] LABS: ALT 19 U/L (4-49); AST 20 U/L (17-59); African American GFR (CKD) 8 (>60 ml/min/1.73 sqM); Alkaline Phosphatase 105 U/L (38-126); Anion Gap 16 mmol/L; Blood Urea Nitrogen 61 mg/dL (9-20); Calcium 8.2 mg/dL (8.4-10.2); Carbon Dioxide 23 mmol/L (22-30); Chloride 97 mmol/L (98-107); Glucose 191 mg/dL (74-99); Magnesium 2.2 mg/dL (1.6-2.3); Non-African American GFR(CKD) 7 (>60 ml/min/1.73 sqM); Potassium 5.2 mmol/L (3.5-5.1); Sodium 136 mmol/L (137-145); Total Bilirubin 0.6 mg/dL (0.2-1.3); Total Protein 7.1 g/dL (6.3-8.2)
[2024-07-04] MEDS ORDERED: NALOXONE 0.4 MG/ML 1 ML VIAL IV PRN ×2 (10:46→10:49)
[2024-07-04] MEDS ORDERED: ALBUTEROL HFA INHALER INHALATION PRN (11:41)
[2024-07-04] MEDS ORDERED: DEXTROSE 50% SYRINGE 50 ML IVP PRN ×2 (11:44)
[2024-07-04] MEDS: TOPIRAMATE 25 MG TAB PO SCH (11:59)
[2024-07-04] MEDS: ISOSORBIDE MONONITRATE ER 30 MG TAB.ER.24H PO SCH (11:59)
[2024-07-04] MEDS: METOPROLOL TARTRATE 25 MG TAB PO SCH (11:59)
[2024-07-04] MEDS: FERROUS SULFATE 325 MG TAB PO SCH (11:59)
[2024-07-04] MEDS: CLOPIDOGREL 75 MG TAB PO SCH (11:59)
[2024-07-04] MEDS: TORSEMIDE 20 MG TAB PO SCH (11:59)
[2024-07-04] MEDS: EZETIMIBE 10 MG TAB PO SCH (11:59)
[2024-07-04] MEDS: RANOLAZINE 500 MG TAB.ER.12H PO SCH ×2 (11:59→21:41)
[2024-07-04] MEDS: ESCITALOPRAM 10 MG TAB PO SCH (11:59)
[2024-07-04] MEDS: INSULIN ASPART 100 UNIT/ML MISCELLANE SCH (12:03)
--- NOTE | 2024-07-04 12:12 | P.HPIM ---
History of Present Illness H&P Date: 07/04/24 History of Presenting Illness: Patient is a very pleasant 73-year-old male with a past medical history of CAD status post CABG x2 in September 2023, multiple stents, ESRD on hemodialysis ([facility]), chronic diastolic CHF, insulin-dependent diabetes mellitus with insulin pump, COPD, hypertension, hyperlipidemia, and obstructive sleep apnea CPAP dependent nightly. He presented to the emergency department with a chief complaint of chest pain. Patient reports he has not been feeling well the past 2 days and missed dialysis yesterday secondary to exertional chest pain and was scheduled to undergo missed session this morning but continued to have significant chest pain so his spouse pulled into the fire station for assistance and to transport him to the hospital safely. Patient reports over the past 48 hours he has taken more than 6 sublingual nitro's for intermittent episodes of chest pain. He reports mild improvement after administration of nitro but states does return and worsens with exertion. He reports pain is to midsternal chest and denies any radiation of pain. He again reports pain worsens with any exertion and does admit to exertional shortness of breath but denies experiencing shortness of breath at rest. Patient also denies having any headache, lightheadedness, dizziness, palpitations, cough or congestion, abdominal pain, nausea, vomiting, or experiencing any numbness/tingling/weakness in his extremities. Patient reports swelling in his lower extremities has significantly improved. Patient states he follows with survey analyst, Dr. Castle. Upon arrival to our facility, patient underwent evaluation in the emergency department. Vital signs upon arrival show blood pressure 113/50, heart rate 64, respiratory rate 18, temp 97.8 F, and SpO2 of 97% on room air. EKG completed showing normal sinus rhythm at 62 bpm with a right bundle branch block. Chest x-ray completed showing borderline to mild cardiomegaly with some strandy lower lung atelectasis. Labs completed and reviewed. CBC showing stable normocytic anemia with hemoglobin of 10.3. Coagulation profile normal findings. BMP showing hypochloremic hyponatremia with sodium of 136 and chloride of 97, hyperkalemia with potassium of 5.2, and renal function cons istent with known ESRD with BUN of 61, creatinine of 7.08, GFR of 7. Blood glucose was 191. Magnesium 2.2. Liver profile unremarkable. Troponin was elevated at 0.044. Influenza A, influenza B, RSV, and COVID PCR were negative. Patient was started on low intensity heparin infusion and admitted under our services with consultation to cardiology and nephrology. Review of systems: Pertinent positives and negatives as discussed in HPI, a complete review of systems was performed and all other systems are negative. Physical exam: Vital signs reviewed and stable. General: Nontoxic, no distress and appears stated age. Derm: Skin warm and dry, normal coloration for ethnicity. Head: Atraumatic, normocephalic and symmetric. Eyes: EOM's intact, no lid lag, and anicteric sclera Mouth: no lip lesions, mucus membranes moist Cardiovascular: regular rate and rhythm with normal S1S2, systolic murmur, positive posterior tibial pulses bilaterally, and cap refill < 2 seconds. AV fistula left upper extremity with bruit and thrill intact. Lungs: Respirations even, regular, and unlabored on room air. Lungs CTA bilaterally, no rhonchi, no rales, no wheezing, and no accessory muscle usage. Abdominal: soft, nontender to palpation, no guarding, no appreciable organomegaly Ext: ROM intact. No gross muscle atrophy, no contractures and no lower extremity edema Neuro: Speech clear, face symmetrical and CN II-XII grossly intact with no noted focal neuro deficits Psych: Alert and oriented to person, place, time, and situation. Appropriate and pleasant affect. Assessment and Plan of Care: Unstable angina Elevated troponins Chronic diastolic heart failure, not in acute exacerbation CAD with extensive cardiac history including CABG x 2 followed by multiple stents -Cardiology consulted, appreciate recommendations -Telemetry monitoring -Continue low intensity heparin infusion with close monitoring of PTT every 6 hours for goal therapeutic range of 45 to 79 seconds. -Trend troponins -Cardiac diet, NPO at midnight -Continue cardiac medication regimen with aspirin 81 mg daily, Plavix 75 mg daily, Zetia 10 mg daily, isosorbide mononitrate 30 mg daily, metoprolol 25 mg twice daily, rosuvastatin 10 mg nightly, and torsemide 40 mg daily on nondialysis days. -Echocardiogram completed 02/17/2024 was reviewed showing a preserved EF of 50 to 55% and most recent stent was placed on 02/29/2024 to left main. -Cardiac catheterization completed 06/07/2024 was reviewed showing known CAD to LAD, circumflex, and RCA appears to be unchanged from prior cardiac cathete rization completed 02/18/2024. ESRD Hyperkalemia, secondary ESRD with missed dialysis session Hypochloremic hyponatremia, secondary to volume overload Anemia of chronic disease -Nephrology consulted for management of dialysis:. Patient to undergo hemodialysis as scheduled. Insulin-dependent diabetes mellitus with hyperglycemia -Patient placed on glycemic protocol with [id number] glucose checks 4 times daily (with meals and at bedtime) -Order placed for patient to continue use of home insulin pump. Obstructive sleep apnea Continue use of CPAP nightly and while napping. COPD, not in acute exacerbation Continue nebulizer treatments every 4 hours as needed for wheezing/shortness of breath. Patient to be provided with oxygen if/as needed to maintain SpO2 equal to or greater than 92%. Hypertension Monitor vital signs and continue daily medication regimen with isosorbide mo nonitrate 60 mg daily, metoprolol 25 mg twice daily, and torsemide 40 mg daily on nondialysis days. Hyperlipidemia Continue daily medication regimen with rosuvastatin 20 mg nightly and Zetia 10 mg daily. BPH Continue Flomax 0.4 mg nightly. Data and imaging reviewed: As stated above in HPI The patient is admitted with an anticipated greater than 2 midnight stay for evaluation of unstable angina CODE STATUS: Full code DVT prophylaxis: Heparin Anticipated discharge date: Pending clinical course Anticipated discharge place: Home Patient was seen independently by Nurse Practitioner. This document was prepared using [employer] system dictation software. 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 Manuel Ivey NP rendered care for this patient independently, reviewed the findings and plan as documented in the note above and agree with plan. I did not physically speak with or examine the patient on this date. Past Medical History Past Medical History: Blood Disorder, Coronary Artery Disease (CAD), Chest Pain / Angina, Heart Failure, COPD, Diabetes Mellitus, Dialysis, Hearing Disorder / Deafness, Hyperlipidemia, Hypertension, Myocardial Infarction ([place]), Osteoarthritis (OA), Renal Disease, Sleep Apnea/CPAP/BIPAP Additional Past Medical History / Comment(s): has insulin pump and contiunuous blood glucose monitor,fell at home on Tuesday10-10-23"got dizzy"-no injury,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. Chronic renal failure, dialysis [facility] normally. Patient has insulin pump. Has CPAP, occasionally uses. Neuropathy in feet and hands. Poor hearing. Last Myocardial Infarction Date:: History of Any Multi-Drug Resistant Organisms: None Reported Past Surgical History: Cholecystectomy, Coronary Bypass/CABG, Heart Catheterization, Heart Catheterization With Stent, Orthopedic Surgery Additional Past Surgical History / Comment(s): Shoulder surgery-no hardware, hemorrhoidectomy, eye surgery,4 cardiac stents,AV fistula left forearm, double vessle CABG 10/17/23 Past Anesthesia/Blood Transfusion Reactions: No Reported Reaction Additional Past Anesthesia/Blood Transfusion Reaction / Comment(s): Never had a blood transfusion. Date of Last Stent Placement:: 2004,2014,2023 Past Psychological History: Anxiety Additional Psychological History / Comment(s): Shopping and crowds bother patient. Smoking Status: Former smoker Past Alcohol Use History: None Reported Additional Past Alcohol Use History / Comment(s): Quit smoking in 1980. Past Drug Use History: None Reported - Past Family History Father Family Medical History: Cancer Additional Family Medical History / Comment(s): Bladder cancer. Mother Family Medical History: Cancer, Diabetes Mellitus Additional Family Medical History / Comment(s): Pancreatic cancer. Medications and Allergies Home Medications Medication Instructions Recorded Confirmed Type Ezetimibe [Zetia] 10 mg PO DAILY 05/19/16 07/04/24 History Ferrous Sulfate [Iron (65 MG 325 mg PO DAILY 05/19/16 07/04/24 History Elemental)] Insulin Aspart (For Pump) [NovoLOG 0.01 unit SQ-PUMP CONTINUOUS 05/28/18 07/04/24 History (For Pump)] Pramipexole [Mirapex] 0.5 mg PO BID PRN 05/02/19 07/04/24 History Albuterol Inhaler [Ventolin Hfa 2 puff INHALATION RT-Q4H PRN 08/10/21 07/04/24 History Inhaler] Aspirin EC [Ecotrin Low Dose] 81 mg PO DAILY 02/21/22 07/04/24 History Glucagon Emergency Kit 1 mg IM ONCE PRN 02/21/22 07/04/24 History Escitalopram [Lexapro] 10 mg PO DAILY 01/01/23 07/04/24 History ALPRAZolam [Xanax] 0.5 mg PO HS PRN 06/17/23 07/04/24 History Cholecalciferol [Vitamin D3 (25 50 mcg PO DAILY 06/17/23 07/04/24 History Mcg = 1000 Iu)] Tamsulosin [Flomax] 0.4 mg PO HS 06/17/23 07/04/24 History Cetirizine HCl [Zyrtec] 10 mg PO DAILY 09/22/23 07/04/24 History Folic Acid/Vit B Complex and C 0.8 mg PO DAILY 09/22/23 07/04/24 History [Nephro-Pooja Tablet] Torsemide [Demadex] 40 mg PO SUMOWEFR 09/22/23 07/04/24 History Clopidogrel [Plavix] 75 mg PO DAILY #30 tab 10/24/23 07/04/24 Rx Ranolazine [Ranexa] 500 mg PO BID 06/07/24 07/04/24 History Rosuvastatin [Crestor] 10 mg PO HS 06/07/24 07/04/24 History Topiramate [Topamax] 25 mg PO BID 06/07/24 07/04/24 History Metoprolol Tartrate [Lopressor] 25 mg PO BID 30 Days #60 tab 06/10/24 07/04/24 Rx Sacubitril/Valsartan [Entresto 24 1 tab PO BID 06/19/24 07/04/24 History mg-26 mg Tablet] Isosorbide Mononitrate ER [Imdur] 30 mg PO DAILY 07/04/24 07/04/24 History Nitroglycerin Sl Tabs [Nitrostat] 0.4 mg SL Q5M PRN 07/04/24 07/04/24 History Allergies Allergy/AdvReac Type Severity Reaction Status Date / Time zolpidem [From Ambien] Allergy Hallucinati Verified 07/04/24 09:44 ons atorvastatin [From Lipitor] AdvReac jt and Verified 07/04/24 09:44 muscle pain baclofen AdvReac caused a Verified 07/04/24 09:44 fall Physical Exam Vitals: Vital Signs Temp Pulse Resp BP Pulse Ox 07/04/24 11:00 56 L 16 133/63 97 07/04/24 10:00 60 12 102/50 96 07/04/24 09:00 60 15 115/54 96 07/04/24 08:10 97.8 F 64 18 113/50 97 Intake and Output 07/03/24 07/04/24 07/04/24 22:59 06:59 14:59 Other: Weight 95.254 kg Results CBC & Chem 7: 07/04/24 08:27 07/04/24 08:27 Labs: Abnormal Lab Results - Last 24 Hours (Table) 07/04/24 07/04/24 07/04/24 Range/Units 08:27 08:27 08:27 RBC 3.17 L (4.30-5.90) m/uL Hgb 10.3 L (13.0-17.5) gm/dL Hct 30.6 L (39.0-53.0) % Sodium 136 L (137-145) mmol/L Potassium 5.2 H (3.5-5.1) mmol/L Chloride 97 L (98-107) mmol/L BUN 61 H (9-20) mg/dL Creatinine 7.08 H* (0.66-1.25) mg/dL Glucose 191 H (74-99) mg/dL Calcium 8.2 L (8.4-10.2) mg/dL Troponin I 0.044 H* (0.000-0.034) ng/mL
--- NOTE | 2024-07-04 14:03 | P.CRDCN ---
History of Present Illness History of present illness: HISTORY OF PRESENT ILLNESS: This is a 73-year-old male with a past medical history significant for coronary artery disease with previous CABG and subsequent stenting, chronic kidney disea se on hemodialysis, hypertension, hyperlipidemia, and diabetes. Patient follows in the office with Dr. Castle. We have been asked to see the patient in consultation for elevated troponin and chest pain. Patient examined at the bedside in the emergency room. Patient presents to the hospital with a chief complaint of chest discomfort. Patient states over the past few weeks he has been feeling tired with minimal activity. He states with minimal exertion he begins to feel short of breath and then gets chest discomfort. He states that when he is walking he feels like he is going to fall over because of loss of balance, not due to dizziness or lightheadedness. Patient states yesterday he took 4 nitro and the day prior he took 5 nitro. He also reports that he missed dialysis on Tuesday because he was having diarrhea. DIAGNOSTICS: - EKG reveals sinus mechanism with first-degree AV block. Right bundle branch block. - Chest xray borderline to mild cardiomegaly. Some strandy lower lung atelectasis. - Laboratory data: WBC 4 point hide. Hemoglobin 10.3. Platelet count 173. Sodium 136. Potassium 5.2. BUN 61. Creatinine 7.08. Magnesium 2.2. Troponin 0.044. - Current home cardiac medications include Demadex 40 mg Tuesday, Entresto 24-26 mg twice a day, Ranexa 500 mg twice a day, metoprolol tartrate 25 mg twice a day, Imdur 30 mg daily, Zetia 10 mg daily, Plavix 75 mg daily, aspirin 81 mg daily - Most recent echocardiogram obtained in June 2024 revealed ejection fraction 40 to 45%, mild to moderate mitral regurgitation, moderate aortic stenosis - Patient underwent two-vessel CABG on October 17, 2023 (LAD and ramus intermedius) - Cardiac catheterization history: June 2024 revealing patent left main stent, 50% proximal LAD, 80% mid LAD, 20 to 30% ramus, 100% circumflex and 30% RCA stenosis. Patent TIAN to LAD, known SVG to ramus occluded, elevated left- sided filling pressures, and mild to moderate aortic stenosis. CAD appeared unchanged. Medical management was recommended. REVIEW OF SYSTEMS: At the time of my exam: CONSTITUTIONAL: Denies fever or chills. HEENT: Denies blurred vision, vision changes, or eye pain. Denies hemoptysis CARDIOVASCULAR: Denies chest pain. Denies orthopnea. Denies PND. Denies palpitations RESPIRATORY: Denies shortness of breath. GASTROINTESTINAL: Denies abdominal pain. Denies nausea or vomiting. HEMATOLOGIC: Denies bleeding disorders. GENITOURINARY: Denies any blood in urine. SKIN: Denies pruitis. Denies rash. PHYSICAL EXAM: VITAL SIGNS: Reviewed. GENERAL: Well-developed in no acute distress. HEENT: Head is normocephalic. Pupils are equal, round. Sclerae anicteric. Mucous membranes of the mouth are moist. Neck supple. No JVD or thyromegaly LUNGS: Respirations even and unlabored. Lungs essentially clear to auscultation bilaterally. HEART: Regular rate and rhythm. S1 and S2 heard. ABDOMEN: Soft. Nondistended. Nontender. EXTREMITIES: Normal range of motion. No clubbing or cyanosis. Peripheral pulses intact. No lower extremity edema NEUROLOGIC: Awake and alert. Oriented x 3. ASSESSMENT: Chest pain Minimally elevated troponin x 1, likely secondary to CKD, awaiting further tro ponins Sinus bradycardia Coronary artery disease with previous CABG x 2 vessels, TIAN to LAD and SVG to ramus intermedius, September 2023 Status post cardiac catheterization February 21, 2024 with stenting of the proximal to mid RCA Status post repeat cardiac catheterization June 2024 revealing relatively unchanged CAD, medical management recommended End-stage renal disease on hemodialysis Ischemic cardiomyopathy, 40 to 45% Hypertension Hyperlipidemia Diabetes Mild to moderate aortic stenosis Moderate mitral regurgitation PLAN: Patient with 1 minimally elevated troponin level. Do not suspect acute coronary syndrome. However continue IV heparin and trend troponins. Resume home cardiac medications Increase Ranexa to 1000 mg twice a day Obtain orthostatic blood pressures Patient about to begin hemodialysis. Per dialysis nurse, patient usually gets off about 1-1/2 L and she is going to attempt to remove 2 L. Continue hemodialysis per nephrology Patient to undergo stress testing tomorrow to evaluate for chronotropic incompetence. Hold beta-narcisa at this time. Further recommendations pending patient course Nurse practitioner note has been reviewed by physician. Signing provider agrees with the documented findings, assessment, and plan of care documented by [employer] as a scribe. Past Medical History Past Medical History: Blood Disorder, Coronary Artery Disease (CAD), Chest Pain / Angina, Heart Failure, COPD, Diabetes Mellitus, Dialysis, Hearing Disorder / Deafness, Hyperlipidemia, Hypertension, Myocardial Infarction ([place]), Osteoarthritis (OA), Renal Disease, Sleep Apnea/CPAP/BIPAP Additional Past Medical History / Comment(s): has insulin pump and contiunuous blood glucose monitor,fell at home on Tuesday10-10-23"got dizzy"-no injury,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. Chronic renal failure, dialysis [facility] normally. Patient has insulin pump. Has CPAP, occasionally uses. Neuropathy in feet and hands. Poor hearing. Last Myocardial Infarction Date:: History of Any Multi-Drug Resistant Organisms: None Reported Past Surgical History: Cholecystectomy, Coronary Bypass/CABG, Heart Catheterization, Heart Catheterization With Stent, Orthopedic Surgery Additional Past Surgical History / Comment(s): Shoulder surgery-no hardware, hemorrhoidectomy, eye surgery,4 cardiac stents,AV fistula left forearm, double vessle CABG 10/17/23 Past Anesthesia/Blood Transfusion Reactions: No Reported Reaction Additional Past Anesthesia/Blood Transfusion Reaction / Comment(s): Never had a blood transfusion. Date of Last Stent Placement:: 2004,2014,2023 Past Psychological History: Anxiety Additional Psychological History / Comment(s): Shopping and crowds bother patient. Smoking Status: Former smoker Past Alcohol Use History: None Reported Additional Past Alcohol Use History / Comment(s): Quit smoking in 1980. Past Drug Use History: None Reported - Past Family History Father Family Medical History: Cancer Additional Family Medical History / Comment(s): Bladder cancer. Mother Family Medical History: Cancer, Diabetes Mellitus Additional Family Medical History / Comment(s): Pancreatic cancer. Medications and Allergies Home Medications Medication Instructions Recorded Confirmed Type Ezetimibe [Zetia] 10 mg PO DAILY 05/19/16 07/04/24 History Ferrous Sulfate [Iron (65 MG 325 mg PO DAILY 05/19/16 07/04/24 History Elemental)] Insulin Aspart (For Pump) [NovoLOG 0.01 unit SQ-PUMP CONTINUOUS 05/28/1807/04 History (For Pump)] Pramipexole [Mirapex] 0.5 mg PO BID PRN 05/02/19 07/04/24 History Albuterol Inhaler [Ventolin Hfa 2 puff INHALATION RT-Q4H PRN 08/10/21 07/04/24 History Inhaler] Aspirin EC [Ecotrin Low Dose] 81 mg PO DAILY 02/21/22 07/04/24 History Glucagon Emergency Kit 1 mg IM ONCE PRN 02/21/22 07/04/24 History Escitalopram [Lexapro] 10 mg PO DAILY 01/01/23 07/04/24 History ALPRAZolam [Xanax] 0.5 mg PO HS PRN 06/17/23 07/04/24 History Cholecalciferol [Vitamin D3 (25 50 mcg PO DAILY 06/17/23 07/04/24 History Mcg = 1000 Iu)] Tamsulosin [Flomax] 0.4 mg PO HS 06/17/23 07/04/24 History Cetirizine HCl [Zyrtec] 10 mg PO DAILY 09/22/23 07/04/24 History Folic Acid/Vit B Complex and C 0.8 mg PO DAILY 09/22/23 07/04/24 History [Nephro-Pooja Tablet] Torsemide [Demadex] 40 mg PO SUMOWEFR 09/22/23 07/04/24 History Clopidogrel [Plavix] 75 mg PO DAILY #30 tab 10/24/23 07/04/24 Rx Ranolazine [Ranexa] 500 mg PO BID 06/07/24 07/04/24 History Rosuvastatin [Crestor] 10 mg PO HS 06/07/24 07/04/24 History Topiramate [Topamax] 25 mg PO BID 06/07/24 07/04/24 History Metoprolol Tartrate [Lopressor] 25 mg PO BID 30 Days #60 tab 06/10/24 07/04/24 Rx Sacubitril/Valsartan [Entresto 24 1 tab PO BID 06/19/24 07/04/24 History mg-26 mg Tablet] Isosorbide Mononitrate ER [Imdur] 30 mg PO DAILY 07/04/24 07/04/24 History Nitroglycerin Sl Tabs [Nitrostat] 0.4 mg SL Q5M PRN 07/04/24 07/04/24 History Allergies Allergy/AdvReac Type Severity Reaction Status Date / Time zolpidem [From Ambien] Allergy Hallucinati Verified 07/04/24 09:44 ons atorvastatin [From Lipitor] AdvReac jt and Verified 07/04/24 09:44 muscle pain baclofen AdvReac caused a Verified 07/04/24 09:44 fall Physical Exam Vitals: Vital Signs Temp Pulse Resp BP Pulse Ox 07/04/24 13:20 97.7 F 55 L 16 120/57 97 07/04/24 12:01 62 16 135/56 97 07/04/24 11:00 56 L 16 133/63 97 07/04/24 10:00 60 12 102/50 96 07/04/24 09:00 60 15 115/54 96 07/04/24 08:10 97.8 F 64 18 113/50 97 Intake and Output 07/03/24 07/04/24 07/04/24 22:59 06:59 14:59 Other: Weight 95.254 kg Results 07/04/24 08:27 07/04/24 08:27 Cardiac Enzymes 07/04/24 07/04/24 Range/Units 08:27 08:27 AST 20 (17-59) U/L Troponin I 0.044 H* (0.000-0.034) ng/mL Coagulation 07/04/24 Range/Units 08:27 PT 11.0 (10.0-12.5) sec APTT 27.3 (22.0-30.0) sec CBC 07/04/24 Range/Units 08:27 WBC 4.9 (3.8-10.6) k/uL RBC 3.17 L (4.30-5.90) m/uL Hgb 10.3 L (13.0-17.5) gm/dL Hct 30.6 L (39.0-53.0) % Plt Count 173 (150-450) k/uL Comprehensive Metabolic Panel 07/04/24 Range/Units 08:27 Sodium 136 L (137-145) mmol/L Potassium 5.2 H (3.5-5.1) mmol/L Chloride 97 L (98-107) mmol/L Carbon Dioxide 23 (22-30) mmol/L BUN 61 H (9-20) mg/dL Creatinine 7.08 H* (0.66-1.25) mg/dL Glucose 191 H (74-99) mg/dL Calcium 8.2 L (8.4-10.2) mg/dL AST 20 (17-59) U/L ALT 19 (4-49) U/L Alkaline Phosphatase 105 (38-126) U/L Total Protein 7.1 (6.3-8.2) g/dL Albumin 4.0 (3.5-5.0) g/dL Current Medications Generic Name Dose Route Start Last Admin Trade Name Freq PRN Reason Stop Dose Admin Albuterol Sulfate 2 puff 07/04/24 11:41 Albuterol Hfa Inhaler INHALATION RT-Q4H PRN Shortness Of Breath Alprazolam 0.5 mg 07/04/24 11:41 Alprazolam 0.5 Mg Tab PO HS PRN Severe Anxiety Aspirin 81 mg 07/05/24 09:00 Aspirin 81 Mg PO DAILY JOEY Cholecalciferol 50 mcg 07/05/24 09:00 Cholecalciferol 25 Mcg (1000 Iu) Tablet PO DAILY JOEY Clopidogrel Bisulfate 75 mg 07/04/24 11:45 07/04/24 11:59 Clopidogrel 75 Mg Tab PO 75 mg DAILY JOEY Administration Dextrose/Water 25 ml 07/04/24 11:44 Dextrose 50% Syringe 50 Ml IVP PER PROTOCOL PRN Hypoglycemia Protocol Dextrose/Water 50 ml 07/04/24 11:44 Dextrose 50% Syringe 50 Ml IVP PER PROTOCOL PRN Hypoglycemia Protocol Ezetimibe 10 mg 07/04/24 11:45 07/04/24 11:59 Ezetimibe 10 Mg Tab PO 10 mg DAILY JOEY Administration Escitalopram Oxalate 10 mg 07/04/24 11:45 07/04/24 11:59 Escitalopram 10 Mg Tab PO 10 mg DAILY JOEY Administration Ferrous Sulfate 325 mg 07/04/24 11:45 07/04/24 11:59 Ferrous Sulfate 325 Mg Tab PO 325 mg DAILY JOEY Administration Heparin Sodium (Porcine) 0 unit 07/04/24 08:22 Heparin Sodium 1,000 Un/Ml (10ml Vl) IV PER PROTOCOL PRN Low PTT Protocol Heparin Sodium/Sodium Chloride 250 mls @ 10.002 mls/hr 07/04/24 08:30 07/04/24 08:57 25,000 unit/ Sodium Chloride IV 10.5 units/kg/hr .Q24H JOEY 10.002 mls/hr Administration Protocol 10.5 UNITS/KG/HR Isosorbide Mononitrate 30 mg 07/04/24 11:45 07/04/24 11:59 Isosorbide Mononitrate Er 30 Mg Tab.Er.24h PO 30 mg DAILY JOEY Administration Loratadine 10 mg 07/05/24 09:00 Loratadine 10 Mg Tab PO DAILY JOEY Metoprolol Tartrate 25 mg 07/04/24 11:45 07/04/24 11:59 Metoprolol Tartrate 25 Mg Tab PO 25 mg BID JOEY Administration Multivit/Ca Carb/B Cmplx/FA/Prenat 1 each 07/05/24 09:00 Folic Acid-Vit B Complex-Vit C 1 Cap PO DAILY JOEY Naloxone HCl 0.2 mg 07/04/24 10:46 Naloxone 0.4 Mg/Ml 1 Ml Vial IV Q2M PRN Opioid Reversal Nitroglycerin 0.5 inch 07/04/24 08:30 07/04/24 08:51 Nitroglycerin Oint 1 Inch/Gm Packet TOPICAL 0.5 inch Q8HR JOYE Administration Insulin Aspart (For 0.01 unit 07/04/24 11:45 07/04/24 12:03 Pump) [Novolog (For MISCELLANE 0.01 unit Pump)] 100 Unit/Ml CONTINUOUS JOEY Administration Vial) Rosuvastatin 20 Mg 10 mg 07/04/24 21:00 Tablet PO HS JOEY Pramipexole Dihydrochloride 0.5 mg 07/04/24 11:41 Pramipexole 0.5 Mg Tab PO BID PRN Restless legs Ranolazine 500 mg 07/04/24 11:45 07/04/24 11:59 Ranolazine 500 Mg Tab.Er.12h PO 500 mg BID JOEY Administration Tamsulosin HCl 0.4 mg 07/04/24 21:00 Tamsulosin 0.4 Mg Cap.Er.24h PO HS JOEY Topiramate 25 mg 07/04/24 11:45 07/04/24 11:59 Topiramate 25 Mg Tab PO 25 mg BID JOEY Administration Torsemide 40 mg 07/04/24 11:45 07/04/24 11:59 Torsemide 20 Mg Tab PO 40 mg [id number] JOEY Administration Intake and Output 07/03/24 07/04/24 07/04/24 22:59 06:59 14:59 Other: Weight 95.254 kg Patient Weight 07/05/24 06:59 Weight 95.254 kg 07/04/24 08:27 07/04/24 08:27
[2024-07-04] MEDS: HEPARIN SODIUM 1,000 UN/ML (10ML VL) IV PRN (17:40)
[2024-07-04 20:18] LABS: Glucose,Whole Blood 153 mg/dL (70-110)
[2024-07-04] MEDS: Rosuvastatin 20 MG Tablet PO SCH (21:38)
[2024-07-04] MEDS: TAMSULOSIN 0.4 MG CAP.ER.24H PO SCH (21:41)
[2024-07-05 05:34] LABS: Partial Thromboplastin Time 44.3 sec (22.0-30.0); Prothrombin Time 10.9 sec (10.0-12.5)
[2024-07-05 06:05] LABS: Glucose,Whole Blood 216 mg/dL (70-110)
[2024-07-05 08:56] LABS: Glucose,Whole Blood 185 mg/dL (70-110)
[2024-07-05 09:08] LABS: HGB 10.8 g/dL (13.0-17.0); MCH 32.2 pg (27.0-32.0); MCHC 33.8 g/dL (32.0-37.0); MCV 95.5 FL (80.0-97.0); Mean Platelet Volume 11.4 FL (9.5-12.2); NRBC Per 100 WBC 0 X 10*3/uL (0.00-0.01); Platelet Count 169 X 10*3/uL (140-440); RBC 3.35 X 10*6/uL (4.40-5.60); RDW 13.3 % (11.5-14.5); WBC 3.89 X 10*3/uL (4.50-10.00)
[2024-07-05] MEDS: CHOLECALCIFEROL 25 MCG (1000 IU) TABLET PO SCH (09:23)
[2024-07-05] MEDS: ASPIRIN 81 MG PO SCH (09:23)
[2024-07-05] MEDS: LORATADINE 10 MG TAB PO SCH (09:24)
[2024-07-05] MEDS: FOLIC ACID-VIT B COMPLEX-VIT C 1 CAP PO SCH (09:31)
--- NOTE | 2024-07-05 11:14 | P.NPCON ---
History of Present Illness - Reason for Consult end stage renal disease - History of Present Illness Reason for consultation: End-stage renal disease History of present illness: Patient is a 73-year-old male seen in renal consultation for end-stage renal disease. He is maintained on hemodialysis on Tuesday schedule. Patient states he missed hemodialysis Tuesday due to not feeling wel l. He underwent hemodialysis yesterday with 2-1/2 L ultrafiltration. Patient states he developed chest pain which has been ongoing for the last 3 to 4 days and has been taking multiple nitros to help relieve the pain. Patient states he had a CABG done earlier this year and then subsequent placement of cardiac stents. He then had another cardiac catheterization recently which showed no new changes. He does make urine. He does have history of diabetes. No vomiting. Does admit to loose bowel movements at times. Hemodynamically stable. On room air. Vital signs are stable. General: No acute distress. HEENT: Head exam is unremarkable. Cut the LUNGS: No audible rhonchi or wheezes. HEART: Rate and Rhythm are regular. ABDOMEN: Nontender. EXTREMITITES: 1+ edema. Past Medical History Past Medical History: Blood Disorder, Coronary Artery Disease (CAD), Chest Pain / Angina, Heart Failure, COPD, Diabetes Mellitus, Dialysis, Hearing Disorder / Deafness, Hyperlipidemia, Hypertension, Myocardial Infarction (NM), Osteoarthritis (OA), Renal Disease, Sleep Apnea/CPAP/BIPAP Additional Past Medical History / Comment(s): has insulin pump and contiunuous blood glucose monitor,fell at home on Tuesday10-10-23"got dizzy"-no injury,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. Chronic renal failure, dialysis [facility] normally. Patient has insulin pump. Has CPAP, occasionally uses. Neuropathy in feet and hands. Poor hearing. Last Myocardial Infarction Date:: History of Any Multi-Drug Resistant Organisms: None Reported Past Surgical History: Cholecystectomy, Coronary Bypass/CABG, Heart Catheterization, Heart Catheterization With Stent, Orthopedic Surgery Additional Past Surgical History / Comment(s): Shoulder surgery-no hardware, hemorrhoidectomy, eye surgery,4 cardiac stents,AV fistula left forearm, double vessle CABG 10/17/23 Past Anesthesia/Blood Transfusion Reactions: No Reported Reaction Additional Past Anesthesia/Blood Transfusion Reaction / Comment(s): Never had a blood transfusion. Date of Last Stent Placement:: 2004,2014,2023 Past Psychological History: Anxiety Additional Psychological History / Comment(s): Shopping and crowds bother patient. Smoking Status: Former smoker Past Alcohol Use History: None Reported Additional Past Alcohol Use History / Comment(s): Quit smoking in 1980. Past Drug Use History: None Reported - Past Family History Father Family Medical History: Cancer Additional Family Medical History / Comment(s): Bladder cancer. Mother Family Medical History: Cancer, Diabetes Mellitus Additional Family Medical History / Comment(s): Pancreatic cancer. Medications and Allergies Home Medications Medication Instructions Recorded Confirmed Type Ezetimibe [Zetia] 10 mg PO DAILY 05/19/16 07/04/24 History Ferrous Sulfate [Iron (65 MG 325 mg PO DAILY 05/19/16 07/04/24 History Elemental)] Insulin Aspart (For Pump) [NovoLOG 0.01 unit SQ-PUMP CONTINUOUS 05/28/18 07/04/24 History (For Pump)] Pramipexole [Mirapex] 0.5 mg PO BID PRN 05/02/19 07/04/24 History Albuterol Inhaler [Ventolin Hfa 2 puff INHALATION RT-Q4H PRN 08/10/21 07/04/24 History Inhaler] Aspirin EC [Ecotrin Low Dose] 81 mg PO DAILY 02/21/22 07/04/24 History Glucagon Emergency Kit 1 mg IM ONCE PRN 02/21/22 07/04/24 History Escitalopram [Lexapro] 10 mg PO DAILY 01/01/23 07/04/24 History ALPRAZolam [Xanax] 0.5 mg PO HS PRN 06/17/23 07/04/24 History Cholecalciferol [Vitamin D3 (25 50 mcg PO DAILY 06/17/23 07/04/24 History Mcg = 1000 Iu)] Tamsulosin [Flomax] 0.4 mg PO HS 06/17/23 07/04/24 History Cetirizine HCl [Zyrtec] 10 mg PO DAILY 09/22/23 07/04/24 History Folic Acid/Vit B Complex and C 0.8 mg PO DAILY 09/22/23 07/04/24 History [Nephro-Pooja Tablet] Torsemide [Demadex] 40 mg PO SUMOWEFR 09/22/23 07/04/24 History Clopidogrel [Plavix] 75 mg PO DAILY #30 tab 03/25/24 12/04/24 Rx Ranolazine [Ranexa] 500 mg PO BID 06/07/24 07/04/24 History Rosuvastatin [Crestor] 10 mg PO HS 06/07/24 07/04/24 History Topiramate [Topamax] 25 mg PO BID 06/07/24 07/04/24 History Metoprolol Tartrate [Lopressor] 25 mg PO BID 30 Days #60 tab 06/10/24 07/04/24 Rx Sacubitril/Valsartan [Entresto 24 1 tab PO BID 06/19/24 07/04/24 History mg-26 mg Tablet] Isosorbide Mononitrate ER [Imdur] 30 mg PO DAILY 07/04/24 07/04/24 History Nitroglycerin Sl Tabs [Nitrostat] 0.4 mg SL Q5M PRN 07/04/24 07/04/24 History Allergies Allergy/AdvReac Type Severity Reaction Status Date / Time zolpidem [From Ambien] Allergy Hallucinati Verified 07/04/24 09:44 ons atorvastatin [From Lipitor] AdvReac jt and Verified 07/04/24 09:44 muscle pain baclofen AdvReac caused a Verified 07/04/24 09:44 fall Physical Exam Vitals: Vital Signs Temp Pulse Pulse Resp BP BP Pulse Ox 07/05/24 07:15 98.0 F 70 16 103/57 94 L 07/05/24 02:00 98.6 F 74 16 117/67 97 07/04/24 19:50 97.0 F L 56 L 16 118/50 07/04/24 18:49 97.3 F L 60 20 136/68 100 07/04/24 18:26 61 16 119/59 96 07/04/24 17:43 59 L 18 118/58 94 L 07/04/24 16:39 56 L 18 109/57 99 07/04/24 14:38 52 L 18 123/56 98 07/04/24 13:20 97.7 F 55 L 16 120/57 97 07/04/24 12:01 62 16 135/56 97 Intake and Output 07/04/24 07/05/24 07/05/24 22:59 06:59 14:59 Intake Total 2986.851 145.265 17.884 Output Total 2900 Balance 86.851 145.265 17.884 Intake: Intake, IV Titration 86.851 145.265 17.884 Amount Heparin Sod,Pork in 0.45% 86.851 145.265 17.884 NaCl 25,000 unit In 0.45 % NaCl 1 250ml.bag @ 10.5 UNITS/KG/HR 10.002 mls/ hr IV .Q24H [facility] Rx#: [id number] Hemodialysis 2900 Output: Hemodialysis 400 Hemodialysis Net Amount 2500 Other: Voiding Method Toilet Toilet # Voids 1 1 Weight 95.254 kg Results - Lab Results Most recent lab results Calcium 8.2 mg/dL (8.4-10.2) L 07/04/24 08:27 Magnesium 2.2 mg/dL (1.6-2.3) 07/04/24 08:27 1224 05:05 07/04/24 08:27 Assessment and Plan Plan: Assessment: 1. End-stage renal disease maintained on hemodialysis on Tuesday schedule. 2. Coronary disease status post CABG and cardiac stents placement. 3. Chest pain maintained on heparin drip. Cardiology following. Stress test done this morning. 4. Diabetes mellitus. 5. Ischemic cardiomyopathy ejection fraction of 40 to 45% with mild to moderate aortic stenosis and moderate mitral regurgitation. 6. Hypertension with chronic kidney disease. Stable. Plan: Hemodialysis today. Thank you for the consultation. I will continue to follow the patient with you during his hospital stay.
[2024-07-05 11:38] LABS: Basophils # (M) 0.04 X 10*3/uL (0.00-0.10); Eosinophils # (M) 0.23 X 10*3/uL (0.04-0.35); Lymphocytes # (M) 1.21 X 10*3/uL (0.90-5.00); Monocytes # (M) 0.27 X 10*3/uL (0.20-1.00); Neutrophils # (M) 2.14 X 10*3/uL (1.80-7.70); Neutrophils % (M) 55 %; RBC Morphology Normal (Normal)
[2024-07-05 12:34] LABS: Glucose,Whole Blood 233 mg/dL (70-110)
--- NOTE | 2024-07-05 12:39 | CA ---
Exercise Stress Test Report Name: Phan Luciano Exam Date: 07/05/2024 08:21 Exam Location: [facility] Stress Ht (in): 68 Wt (lb): 210 BSA: 2.09 Ordering Phys: Jihan Sanchez Referring Phys: BUD Technologist: Shine Alvarenga Age: 73 Gender: M : 1950 Procedure CPT: Indications: CP, eval for chronotropic incompetence ICD-10 Codes: Patient History: CHEST PAIN, HTN, DIABETIC, DIFFICULTY IN BREATHING, ANGINA, HYPERCHOLESTEROLEMIA, PRIOR SMOKER, PRIOR CATH WITH STENTS X 4, PRIOR CABG X 2, COPD Medications: Meds past 24 hrs: Pretest Chest Pain: STRESS TEST Jaron Protocol Exercise Duration (min:sec): 03:[address] Depressions (mm): Angina Score: Aguilar Score: Resting HR (bpm): 76 Peak HR (bpm): 98 Resting BP (mmHg): 129 / 63 Peak BP (mmHg): 152 / 59 MPHR: 146 Target HR: 124 % MPHR: 67 METS: 5.2 Total Dose: Peak Dose: Atropine: Double Product: 12248 BP Response: Stress Termination: DYSPNEA UNABLE TO CONTINUE Stress Symptoms: DIFFICULTY IN BREATHING Stress Summary: ECG ANALYSIS Resting ECG: Stress ECG: CONCLUSIONS Patient underwent exercise stress EKG with a Jaron protocol treadmill stress test. Patient exercised into Stage 2 for a total of 3 minutes and 43 seconds reaching a total of 5.2 METS. Patient's maximum heart rate was 98 bpm which represented 67 % age-predicted maximum heart rate. Patient did have severe dyspnea at peak exercise with drop in blood pressure from 129/63 down to 89/50. Blood pressure improved in recovery. Stress EKG findings: At baseline patient's EKG showed normal sinus rhythm, right axis deviation, right bundle-branch block with nonspecific 0.[address] depressions V1 through V3. At peak exercise, EKG showed no significant change from baseline. Conclusions: 1. Nonspecific stress EKG given inability to reach 85% maximum predicted heart rate and abnormal resting EKG 2. Poor exercise capacity. 3. Appears to have adequate inotropic response 4. Hypotensive blood pressure response. Clinical correlation recommended. Dr. Shiraz Castle DO (Electronically Signed) Final Date: 05 July 2024 12:38
[2024-07-05] MEDS ORDERED: BENZOCAINE SPRAY 1 CAN TOPICAL PRN (12:47)
[2024-07-05] MEDS ORDERED: fentaNYL (PF) 50 MCG/ML 5 ML AMP IVP PRN (12:47)
[2024-07-05] MEDS: INSULIN ASPART (NovoLOG) 100 UNIT/ML VIAL SQ SCH (12:50)
[2024-07-05 12:59] LABS: Appearance,Urine Clear (Clear); Bilirubin,Urine Negative (Negative); Blood,Urine Negative (Negative); Color,Urine Yellow; Glucose,Urine (UA) 2+ (Negative); Hyaline Casts,Urine 40 /lpf (0-2); Ketones,Urine Negative (Negative); Leukocyte Esterase,Urine Negative (Negative); Mucus,Urine Rare /hpf; Nitrite,Urine Negative (Negative); PH, Urine 7.5 (5.0-8.0); Protein,Urine 2+ (Negative); RBC,Urine 1 /hpf (0-5); Specific Gravity,Urine 1.013 (1.001-1.035); Squamous Epithelial Cell,Urine <1 /hpf (0-4); Urobilinogen,Urine <2.0 mg/dL (<2.0); WBC,Urine <1 /hpf (0-5)
[2024-07-05 13:42] LABS: ALT 17 U/L (10-49); AST 22 U/L (14-35); Albumin 3.8 g/dL (3.8-4.9); Albumin/Globulin Ratio 1.23 Ratio (1.60-3.17); Alkaline Phosphatase 109 U/L (41-126); BUN/Creat Ratio 7.21 Ratio (12.00-20.00); Blood Urea Nitrogen 33.9 mg/dL (9.0-27.0); Calcium 8.3 mg/dL (8.7-10.3); Carbon Dioxide 24.3 mmol/L (21.6-31.8); Chloride 96 mmol/L (96-109); Globulin 3.1 g/dL (1.6-3.3); Glucose 209 mg/dL (70-110); Potassium 4.6 mmol/L (3.5-5.5); Sodium 136 mmol/L (135-145); Total Bilirubin 0.3 mg/dL (0.3-1.2); Total Protein 6.9 g/dL (6.2-8.2)
--- NOTE | 2024-07-05 14:46 | P.PN ---
Subjective HISTORY OF PRESENT ILLNESS: This is a 73-year-old male with a past medical history significant for coronary artery disease with previous CABG and subsequent stenting, chronic kidney disease on hemodialysis, hypertension, hyperlipidemia, and diabetes. Patient follows in the office with Dr. Castle. We have been asked to see the patient in consultation for elevated troponin and chest pain. Patient examined at the bedside in the emergency room. Patient presents to the hospital with a chief complaint of chest discomfort. Patient states over the past few weeks he has been feeling tired with minimal activity. He states with minimal exertion he begins to feel short of breath and then gets chest discomfort. He states that when he is walking he feels like he is going to fall over because of loss of balance, not due to dizziness or lightheadedness. Patient states yesterday he took 4 nitro and the day prior he took 5 nitro. He also reports that he missed dialysis on Tuesday because he was having diarrhea. DIAGNOSTICS: - EKG reveals sinus mechanism with first-degree AV block. Right bundle branch block. - Chest xray borderline to mild cardiomegaly. Some strandy lower lung atelectasis. - Laboratory data: WBC 4 point hide. Hemoglobin 10.3. Platelet count 173. Sodium 136. Potassium 5.2. BUN 61. Creatinine 7.08. Magnesium 2.2. Troponin 0.044. - Current home cardiac medications include Demadex 40 mg Tuesday, Entresto 24-26 mg twice a day, Ranexa 500 mg twice a day, metoprolol tartrate 25 mg twice a day, Imdur 30 mg daily, Zetia 10 mg daily, Plavix 75 mg daily, aspirin 81 mg daily - Most recent echocardiogram obtained in June 2024 revealed ejection fraction 40 to 45%, mild to moderate mitral regurgitation, moderate aortic stenosis - Patient underwent two-vessel CABG on October 17, 2023 (LAD and ramus intermedius) - Cardiac catheterization history: June 2024 revealing patent left main stent, 50% proximal LAD, 80% mid LAD, 20 to 30% ramus, 100% circumflex and 30% RCA stenosis. Patent TIAN to LAD, known SVG to ramus occluded, elevated left- sided filling pressures, and mild to moderate aortic stenosis. CAD appeared unchanged. Medical management was recommended. 07/05/2024 Patient examined this morning. Patient currently denies chest pain or pressure. He denies shortness of breath. Patient states he underwent hemodialysis yesterday with removal of 2-1/2 L. He states that he slept well yesterday. Patient did have orthostatic blood pressures. PHYSICAL EXAM: VITAL SIGNS: Reviewed. GENERAL: Well-developed in no acute distress. HEENT: Head is normocephalic. Pupils are equal, round. Sclerae anicteric. Mucous membranes of the mouth are moist. Neck supple. No JVD or thyromegaly LUNGS: Respirations even and unlabored. Lungs essentially clear to auscultation bilaterally. HEART: Regular rate and rhythm. S1 and S2 heard. + systolic murmur ABDOMEN: Soft. Nondistended. Nontender. EXTREMITIES: Normal range of motion. No clubbing or cyanosis. Peripheral pulses intact. No lower extremity edema NEUROLOGIC: Awake and alert. Oriented x 3. ASSESSMENT: Chest pain Orthostatic hypotension Elevated troponins, flat, likely secondary to CKD, no evidence of myocardial injury or ischemia Sinus bradycardia Coronary artery disease with previous CABG x 2 vessels, TIAN to LAD and SVG to ramus intermedius, September 2023 Status post cardiac catheterization February 21, 2024 with stenting of the proximal to mid RCA Status post repeat cardiac catheterization June 2024 revealing relatively unchanged CAD, medical management recommended End-stage renal disease on hemodialysis Ischemic cardiomyopathy, 40 to 45% Hypertension Hyperlipidemia Diabetes Mild to moderate aortic stenosis Moderate mitral regurgitation PLAN: Discontinue IV heparin Patients stress test revealing no evidence of chronotropic incompetence. However, he did become hypotensive with exercise. Orthostatic blood pressures obtained this afternoon which were positive. Begin midodrine 10 mg TID NPO at midnight KAREEM tomorrow with Dr. Castle Further recommendations pending patient course Nurse practitioner note has been reviewed by physician. Signing provider agrees with the documented findings, assessment, and plan of care documented by [employer] as a scribe. Objective - Vital Signs Vital signs: Vital Signs Temp 98.0 F 07/05/24 07:15 Pulse 70 07/05/24 07:15 Resp 16 07/05/24 08:00 BP 103/57 07/05/24 07:15 Pulse Ox 94 L 07/05/24 07:15 FiO2 Intake & Output 07/04/24 07/05/24 07/05/24 18:59 06:59 18:59 Intake Total 86.851 3045.265 17.884 Output Total 2900 Balance 86.851 145.265 17.884 Weight 95.254 kg 95.254 kg Intake: Intake, IV Titration 86.851 145.265 17.884 Amount Heparin Sod,Pork in 0.45% 86.851 145.265 17.884 NaCl 25,000 unit In 0.45 % NaCl 1 250ml.bag @ 10.5 UNITS/KG/HR 10.002 mls/ hr IV .Q24H [facility] Rx#: [id number] Hemodialysis 2900 Output: Hemodialysis 400 Hemodialysis Net Amount 2500 Other: Voiding Method Toilet Toilet # Voids 1 - Labs CBC & Chem 7: 07/05/24 05:05 07/05/24 05:05 Labs: Abnormal Lab Results - Last 24 Hours (Table) 07/04/24 07/04/24 07/04/24 Range/Units 12:35 15:44 15:44 WBC (4.50-10.00) X 10*3/uL RBC (4.40-5.60) X 10*6/uL Hgb (13.0-17.0) g/dL Hct (39.6-50.0) % MCH (27.0-32.0) pg APTT 38.0 H (22.0-30.0) sec POC Glucose (mg/dL) (70-110) mg/dL Troponin I 0.045 H* 0.062 H* (0.000-0.034) ng/mL 07/04/24 07/05/24 07/05/24 Range/Units 20:15 00:03 05:05 WBC 3.89 L (4.50-10.00) X 10*3/uL RBC 3.35 L (4.40-5.60) X 10*6/uL Hgb 10.8 L (13.0-17.0) g/dL Hct 32.0 L (39.6-50.0) % MCH 32.2 H (27.0-32.0) pg APTT 46.7 H (22.0-30.0) sec POC Glucose (mg/dL) 153 H (70-110) mg/dL Troponin I (0.000-0.034) ng/mL 07/05/24 07/05/24 07/05/24 Range/Units 05:05 06:03 08:55 WBC (4.50-10.00) X 10*3/uL RBC (4.40-5.60) X 10*6/uL Hgb (13.0-17.0) g/dL Hct (39.6-50.0) % MCH (27.0-32.0) pg APTT 44.3 H (22.0-30.0) sec POC Glucose (mg/dL) 216 H 185 H (70-110) mg/dL Troponin I (0.000-0.034) ng/mL
--- NOTE | 2024-07-05 16:40 | P.PN ---
Subjective Progress Note Date: 07/05/24 Hospital Course: Patient is a very pleasant 73-year-old male with a past medical history of CAD status post CABG x2 in September 2023, multiple stents, ESRD on hemodialysis (TThSa), chronic diastolic CHF, insulin-dependent diabetes mellitus with insulin pump, COPD, hypertension, hyperlipidemia, and obstructive sleep apnea CPAP dependent nightly. He presented to the emergency department with a chief complaint of chest pain. Patient reports he has not been feeling well the past 2 days and missed dialysis yesterday secondary to exertional chest pain and was scheduled to undergo missed session this morning but continued to have significant chest pain so his spouse pulled into the fire station for assistance and to transport him to the hospital safely. Patient reports over the past 48 hours he has taken more than 6 sublingual nitro's for intermittent episodes of chest pain. He reports mild improvement after administration of nitro but states does return and worsens with exertion. He reports pain is to midsternal chest and denies any radiation of pain. He again reports pain worsens with any exertion and does admit to exertional shortness of breath but denies experiencing shortness of breath at rest. Patient also denies having any headache, lightheadedness, dizziness, palpitations, cough or congestion, abdominal pain, nausea, vomiting, or experiencing any numbness/tingling/weakness in his extremities. Patient reports swelling in his lower extremities has significantly improved. Patient states he follows with tool planner, Dr. Castle. Upon arrival to our facility, patient underwent evaluation in the emergency department. Vital signs upon arrival show blood pressure 113/50, heart rate 64, respiratory rate 18, temp 97.8 F, and SpO2 of 97% on room air. EKG completed showing normal sinus rhythm at 62 bpm with a right bundle branch b lock. Chest x-ray completed showing borderline to mild cardiomegaly with some strandy lower lung atelectasis. Labs completed and reviewed. CBC showing stable normocytic anemia with hemoglobin of 10.3. Coagulation profile normal findings. BMP showing hypochloremic hyponatremia with sodium of 136 and chloride of 97, hyperkalemia with potassium of 5.2, and renal function consistent with known ESRD with BUN of 61, creatinine of 7.08, GFR of 7. Blood glucose was 191. Magnesium 2.2. Liver profile unremarkable. Troponin was elevated at 0.044. Influenza A, influenza B, RSV, and COVID PCR were negative. Patient was started on low intensity heparin infusion and admitted under our services with consultation to cardiology and nephrology. Physical exam: Vital signs reviewed and stable. General: Nontoxic, no distress and appears stated age. Derm: Skin warm and dry, normal coloration for ethnicity. Head: Atraumatic, normocephalic and symmetric. Eyes: EOM's intact, no lid lag, and anicteric sclera Mouth: no lip lesions, mucus membranes moist Cardiovascular: regular rate and rhythm with normal S1S2, systolic murmur, positive posterior tibial pulses bilaterally, and cap refill < 2 seconds. AV fistula left upper extremity with bruit and thrill intact. Lungs: Respirations even, regular, and unlabored on room air. Lungs CTA bilaterally, no rhonchi, no rales, no wheezing, and no accessory muscle usage. Abdominal: soft, nontender to palpation, no guarding, no appreciable organomegaly Ext: ROM intact. No gross muscle atrophy, no contractures and no lower extremity edema Neuro: Speech clear, face symmetrical and CN II-XII grossly intact with no noted focal neuro deficits Psych: Alert and oriented to person, place, time, and situation. Appropriate and pleasant affect. Assessment and Plan of Care: Unstable angina Elevated troponins Chronic diastolic heart failure, not in acute exacerbation CAD with extensive cardiac history including CABG x 2 followed by multiple stents -Cardiology following and took patient for cardiac stress test this morning showing no evidence of chronotropic incompetence however per cardiology documentation patient did become hypotensive with exercise and is being started on midodrine 10 mg 3 times daily and scheduled for KAREEM tomorrow morning. -Telemetry monitoring -Troponis were trended with talking to resulting at 0.044, 0.045, 0.062. -Cardiac diet, NPO at midnight for KAREEM tomorrow morning -Continue cardiac medication regimen with aspirin 81 mg daily, Plavix 75 mg daily, Zetia 10 mg daily, isosorbide mononitrate 30 mg daily, metoprolol 25 mg twice daily, rosuvastatin 10 mg nightly, and torsemide 40 mg daily on nondialysis days. -Echocardiogram completed 02/17/2024 was reviewed showing a preserved EF of 50 to 55% and most recent stent was placed on 02/29/2024 to left main. -Cardiac catheterization completed 06/07/2024 was reviewed showing known CAD to LAD, circumflex, and RCA appears to be unchanged from prior cardiac catheterization completed 02/18/2024. ESRD Hyperkalemia, secondary ESRD with missed dialysis session Hypochloremic hyponatremia, secondary to volume overload Anemia of chronic disease -Nephrology consulted for management of dialysis:. Patient underwent dialysis yesterday evening and scheduled to again undergo dialysis later today.. Insulin-dependent diabetes mellitus with hyperglycemia -Patient placed on glycemic protocol with [id number] glucose checks 4 times daily (with meals and at bedtime) -Order placed for patient to continue use of home insulin pump. Obstructive sleep apnea Continue use of CPAP nightly and while napping. COPD, not in acute exacerbation Continue nebulizer treatments every 4 hours as needed for wheezing/shortness of breath. Patient to be provided with oxygen if/as needed to maintain SpO2 equal to or greater than 92%. Hypertension Monitor vital signs and continue daily medication regimen with isosorbide mononitrate 60 mg daily, metoprolol 25 mg twice daily, and torsemide 40 mg daily on nondialysis days. Hyperlipidemia Continue daily medication regimen with rosuvastatin 20 mg nightly and Zetia 10 mg daily. BPH Continue Flomax 0.4 mg nightly. Data and imaging reviewed: Labs reviewed. CBC showing bicytopenia with WBC count of 3.89 and hemoglobin of 10.8. CMP consistent with ESRD with BUN of 33.9, creatinine of 4.7, and GFR of 12. Blood glucose 209. Troponis were trended with talking to resulting at 0.044, 0.045, 0.062. Blood pressure 103/57, heart rate 70, respiratory rate 16, temp 98.0 F, and SpO2 of 94% on room air. CODE STATUS: Full code DVT prophylaxis: Heparin Anticipated discharge date: Pending clinical course Anticipated discharge place: Home Patient was seen independently by Nurse Practitioner. This document was prepared using [employer] dictation software. Please allow for errors in production machine operator while rare they do occur. Manuel Ivey NP rendered care for this patient independently, reviewed the findings and plan as documented in the note above and agree with plan. I did not physically speak with or examine the patient on this date. Objective - Vital Signs Vital signs: Vital Signs Temp 98.0 F 07/05/24 07:15 Pulse 70 07/05/24 07:15 Resp 16 07/05/24 07:15 BP 103/57 07/05/24 07:15 Pulse Ox 94 L 07/05/24 07:15 FiO2 Intake & Output 07/04/24 07/05/24 07/05/24 18:59 06:59 18:59 Intake Total 86.851 3045.265 17.884 Output Total 2900 Balance 86.851 145.265 17.884 Weight 95.254 kg 95.254 kg Intake: Intake, IV Titration 86.851 145.265 17.884 Amount Heparin Sod,Pork in 0.45% 86.851 145.265 17.884 NaCl 25,000 unit In 0.45 % NaCl 1 250ml.bag @ 10.5 UNITS/KG/HR 10.002 mls/ hr IV .Q24H [facility] Rx#: [id number] Hemodialysis 2900 Output: Hemodialysis 400 Hemodialysis Net Amount 2500 Other: Voiding Method Toilet # Voids 1 - Labs CBC & Chem 7: 07/05/24 05:05 07/05/24 05:05 Labs: Abnormal Lab Results - Last 24 Hours (Table) 07/04/24 07/04/24 07/04/24 Range/Units 08:27 08:27 12:35 WBC (4.50-10.00) X 10*3/uL RBC (4.40-5.60) X 10*6/uL Hgb (13.0-17.0) g/dL Hct (39.6-50.0) % MCH (27.0-32.0) pg APTT (22.0-30.0) sec Sodium 136 L (137-145) mmol/L Potassium 5.2 H (3.5-5.1) mmol/L Chloride 97 L (98-107) mmol/L BUN 61 H (9-20) mg/dL Creatinine 7.08 H* (0.66-1.25) mg/dL Glucose 191 H (74-99) mg/dL POC Glucose (mg/dL) (70-110) mg/dL Calcium 8.2 L (8.4-10.2) mg/dL Troponin I 0.044 H* 0.045 H* (0.000-0.034) ng/mL 07/04/24 07/04/24 07/04/24 Range/Units 15:44 15:44 20:15 WBC (4.50-10.00) X 10*3/uL RBC (4.40-5.60) X 10*6/uL Hgb (13.0-17.0) g/dL Hct (39.6-50.0) % MCH (27.0-32.0) pg APTT 38.0 H (22.0-30.0) sec Sodium (137-145) mmol/L Potassium (3.5-5.1) mmol/L Chloride (98-107) mmol/L BUN (9-20) mg/dL Creatinine (0.66-1.25) mg/dL Glucose (74-99) mg/dL POC Glucose (mg/dL) 153 H (70-110) mg/dL Calcium (8.4-10.2) mg/dL Troponin I 0.062 H* (0.000-0.034) ng/mL 07/05/24 07/05/24 07/05/24 Range/Units 00:03 05:05 05:05 WBC 3.89 L (4.50-10.00) X 10*3/uL RBC 3.35 L (4.40-5.60) X 10*6/uL Hgb 10.8 L (13.0-17.0) g/dL Hct 32.0 L (39.6-50.0) % MCH 32.2 H (27.0-32.0) pg APTT 46.7 H 44.3 H (22.0-30.0) sec Sodium (137-145) mmol/L Potassium (3.5-5.1) mmol/L Chloride (98-107) mmol/L BUN (9-20) mg/dL Creatinine (0.66-1.25) mg/dL Glucose (74-99) mg/dL POC Glucose (mg/dL) (70-110) mg/dL Calcium (8.4-10.2) mg/dL Troponin I (0.000-0.034) ng/mL 07/05/24 07/05/24 Range/Units 06:03 08:55 WBC (4.50-10.00) X 10*3/uL RBC (4.40-5.60) X 10*6/uL Hgb (13.0-17.0) g/dL Hct (39.6-50.0) % MCH (27.0-32.0) pg APTT (22.0-30.0) sec Sodium (137-145) mmol/L Potassium (3.5-5.1) mmol/L Chloride (98-107) mmol/L BUN (9-20) mg/dL Creatinine (0.66-1.25) mg/dL Glucose (74-99) mg/dL POC Glucose (mg/dL) 216 H 185 H (70-110) mg/dL Calcium (8.4-10.2) mg/dL Troponin I (0.000-0.034) ng/mL
[2024-07-05 17:20] LABS: Glucose,Whole Blood 148 mg/dL (70-110)
[2024-07-05] MEDS ORDERED: MIDODRINE 5 MG TAB PO SCH (17:30)
[2024-07-05] MEDS: PRAMIPEXOLE 0.5 MG TAB PO PRN (17:44)
[2024-07-05] MEDS: MIDODRINE 5 MG TAB PO SCH (18:15)
[2024-07-05 20:00] LABS: Glucose,Whole Blood 200 mg/dL (70-110)
[2024-07-05] MEDS: METOPROLOL TARTRATE 25 MG TAB PO SCH (21:20)
[2024-07-06] MEDS: ALPRAZolam 0.5 MG TAB PO PRN (02:17)
[2024-07-06 05:49] LABS: Glucose,Whole Blood 186 mg/dL (70-110)
[2024-07-06] MEDS: SODIUM CHLORIDE 0.9% 500 ML 500 ML IV ONE (08:50)
[2024-07-06] MEDS: BENZOCAINE SPRAY 1 EACH MM ONE ×2 (08:54→09:00)
[2024-07-06] MEDS: fentaNYL (PF) 50 MCG/ML 2 ML AMP IVP ONE (09:02)
[2024-07-06] MEDS: MIDAZOLAM 2 MG/2 ML VIAL IVP ONE (09:02)
[2024-07-06] MEDS: MIDAZOLAM 2 MG/2 ML VIAL IV PRN (09:04)
--- NOTE | 2024-07-06 09:19 | P.TEE ---
Description of Procedure(s): Procedure performed: Transesophageal Echocardiogram with color flow doppler, pulsed wave doppler and continuous wave doppler, moderate conscious sedation Moderate conscious sedation: Moderate conscious sedation was supplied with direct supervision of myself using Versed and Fentanyl. Complications: none Indications: aortic stenosis PROCEDURE: After the risks, benefits and alternatives of the above mentioned procedure was explained in detail with the patient, informed consent was obtained. Patient was brought to the lab in a fasting state. Patient was given IV Versed and Fentanyl for sedation. The throat was sprayed with Hurricane to anesthetize the throat. A lubricated Omni probe was then introduced into the esophagus and stomach and multiple views were obtained. 2D echo with color flow doppler, pulsed wave doppler and continuous wave doppler was utilized. Agitated saline bubbles were injected to assess for any intra-atrial shunt. The probe was then removed. Patient tolerated the procedure well. Patient was transferred to the post procedure area in stable and satisfactory condition. FINDINGS: 1. The aortic valve is tricuspid with moderate aortic stenosis with aortic valve area 1.1 cm by planimetry 2. The mitral valve appears be normal with mild to moderate regurgitation. 3. Tricuspid valve appears to be normal. 4. The interatrial septum is intact. No evidence of PFO. 5. Left atrial appendage is ligated and free of clot. 6. Left ventricular EF 45%
[2024-07-06 10:47] LABS: HCT 32.2 % (39.6-50.0); HGB 11.1 g/dL (13.0-17.0); MCH 32.2 pg (27.0-32.0); MCHC 34.5 g/dL (32.0-37.0); MCV 93.3 FL (80.0-97.0); NRBC Per 100 WBC 0 X 10*3/uL (0.00-0.01); Platelet Count 155 X 10*3/uL (140-440); RBC 3.45 X 10*6/uL (4.40-5.60); RDW 13.3 % (11.5-14.5); WBC 4.73 X 10*3/uL (4.50-10.00)
[2024-07-06 10:55] LABS: ALT 17 U/L (10-49); AST 22 U/L (14-35); Albumin/Globulin Ratio 1.33 Ratio (1.60-3.17); Alkaline Phosphatase 107 U/L (41-126); BUN/Creat Ratio 6.98 Ratio (12.00-20.00); Blood Urea Nitrogen 27.9 mg/dL (9.0-27.0); Calcium 8.6 mg/dL (8.7-10.3); Carbon Dioxide 25.4 mmol/L (21.6-31.8); Chloride 92 mmol/L (96-109); Glucose 191 mg/dL (70-110); Potassium 4.4 mmol/L (3.5-5.5); Sodium 132 mmol/L (135-145); Total Bilirubin 0.4 mg/dL (0.3-1.2)
--- NOTE | 2024-07-06 11:10 | P.PN ---
Subjective Patient is seen in follow-up for end-stage renal disease. Tolerated 2 L ultrafiltration yesterday. Underwent KAREEM this morning. present at be ide. Vital signs are stable. General: No acute distress. HEENT: Head exam is unremarkable. LUNGS: No audible rhonchi or wheezes. HEART: Rate and Rhythm are regular. Cut the ABDOMEN: No distention. EXTREMITITES: No edema. Objective - Vital Signs Vital signs: Vital Signs Temp 97.6 F 07/06/24 06:20 Pulse 63 07/06/24 09:34 Resp 14 07/06/24 09:34 BP 95/50 07/06/24 09:34 Pulse Ox 98 07/06/24 09:34 FiO2 Intake & Output 07/05/24 07/06/24 07/06/24 18:59 06:59 18:59 Intake Total 709.283 100 Output Total 4610 150 Balance -3900.717 -150 100 Intake: IV 100 Intake, IV Titration 69.283 Amount Heparin Sod,Pork in 0.45% 69.283 NaCl 25,000 unit In 0.45 % NaCl 1 250ml.bag @ 10.5 UNITS/KG/HR 10.002 mls/ hr IV .Q24H [facility] Rx#: [id number] Oral 240 Hemodialysis 400 Output: Urine 210 150 Hemodialysis 2400 Hemodialysis Net Amount 2000 Other: Voiding Method Toilet Toilet # Voids 3 # Bowel Movements 1 - Labs CBC & Chem 7: 07/06/24 06:38 07/06/24 06:38 Labs: Abnormal Lab Results - Last 24 Hours (Table) 07/05/24 07/05/24 07/05/24 Range/Units 05:05 05:05 11:13 WBC 3.89 L (4.50-10.00) X 10*3/uL RBC 3.35 L (4.40-5.60) X 10*6/uL Hgb 10.8 L (13.0-17.0) g/dL Hct 32.0 L (39.6-50.0) % MCH 32.2 H (27.0-32.0) pg Sodium (135-145) mmol/L Chloride (96-109) mmol/L Anion Gap 15.70 H (4.00-12.00) mmol/L BUN 33.9 H (9.0-27.0) mg/dL Creatinine 4.7 H (0.6-1.5) mg/dL Est GFR (CKD-EPI) 12 L (>=60) BUN/Creatinine Ratio 7.21 L (12.00-20.00) Ratio Glucose 209 H (70-110) mg/dL POC Glucose (mg/dL) (70-110) mg/dL Calcium 8.3 L (8.7-10.3) mg/dL Albumin/Globulin Ratio 1.23 L (1.60-3.17) Ratio Urine Protein 2+ H (Negative) Urine Glucose (UA) 2+ H (Negative) Hyaline Casts 40 H (0-2) /lpf Urine Mucus Rare H (None) /hpf 07/05/24 07/05/24 07/05/24 Range/Units 12:32 17:19 19:59 WBC (4.50-10.00) X 10*3/uL RBC (4.40-5.60) X 10*6/uL Hgb (13.0-17.0) g/dL Hct (39.6-50.0) % MCH (27.0-32.0) pg Sodium (135-145) mmol/L Chloride (96-109) mmol/L Anion Gap (4.00-12.00) mmol/L BUN (9.0-27.0) mg/dL Creatinine (0.6-1.5) mg/dL Est GFR (CKD-EPI) (>=60) BUN/Creatinine Ratio (12.00-20.00) Ratio Glucose (70-110) mg/dL POC Glucose (mg/dL) 233 H 148 H 200 H (70-110) mg/dL Calcium (8.7-10.3) mg/dL Albumin/Globulin Ratio (1.60-3.17) Ratio Urine Protein (Negative) Urine Glucose (UA) (Negative) Hyaline Casts (0-2) /lpf Urine Mucus (None) /hpf 07/06/24 07/06/24 07/06/24 Range/Units 05:47 06:38 06:38 WBC (4.50-10.00) X 10*3/uL RBC 3.45 L (4.40-5.60) X 10*6/uL Hgb 11.1 L (13.0-17.0) g/dL Hct 32.2 L (39.6-50.0) % MCH 32.2 H (27.0-32.0) pg Sodium 132 L (135-145) mmol/L Chloride 92 L (96-109) mmol/L Anion Gap 14.60 H (4.00-12.00) mmol/L BUN 27.9 H (9.0-27.0) mg/dL Creatinine 4.0 H (0.6-1.5) mg/dL Est GFR (CKD-EPI) 15 L (>=60) BUN/Creatinine Ratio 6.98 L (12.00-20.00) Ratio Glucose 191 H (70-110) mg/dL POC Glucose (mg/dL) 186 H (70-110) mg/dL Calcium 8.6 L (8.7-10.3) mg/dL Albumin/Globulin Ratio 1.33 L (1.60-3.17) Ratio Urine Protein (Negative) Urine Glucose (UA) (Negative) Hyaline Casts (0-2) /lpf Urine Mucus (None) /hpf Assessment and Plan Plan: Assessment: 1. End-stage renal disease maintained on hemodialysis on Tuesday schedule. 2. Coronary disease status post CABG and cardiac stents placement. KAREEM done this admission showed moderate aortic stenosis and mild to moderate mitral regurgitation with ejection fraction of 45%. 3. Chest pain s/p heparin drip. Cardiology following. Patient became hypotensive during stress test but had adequate inotropic response. 4. Diabetes mellitus. 5. Ischemic cardiomyopathy ejection fraction of 40 to 45% with mild to moderate aortic stenosis and moderate mitral regurgitation. 6. Hypertension with chronic kidney disease. Blood pressure on the lower end. Plan: Hemodialysis tomorrow. Check phosphorus level.
[2024-07-06 11:47] LABS: Glucose,Whole Blood 185 mg/dL (70-110)
--- NOTE | 2024-07-06 13:50 | P.DS ---
Providers Date of admission: 07/04/24 10:46 Expected date of discharge: 07/06/24 Attending physician: Manolo Pang MD Consults: 07/04/24 10:46 Consult Physician Routine Consulting Provider: [facility] Consult Reason/Comments: chest pain, elevated troponin Do you want consulting provider notified?: Yes Consult Physician Routine Consulting Provider: Simba Posey Consult Reason/Comments: missed dialysis Do you want consulting provider notified?: Yes Primary care physician: Marlon Valentino Hospital Course: Discharge Diagnosis: Unstable angina Elevated troponins Chronic diastolic heart failure, not in acute exacerbation CAD with extensive cardiac history including CABG x 2 followed by multiple stents ESRD Hyperkalemia, secondary ESRD with missed dialysis session Hypochloremic hyponatremia, secondary to volume overload Anemia of chronic disease Insulin-dependent diabetes mellitus with hyperglycemia Obstructive sleep apnea COPD, not in acute exacerbation Hypertension Hyperlipidemia BPH . Hospital Course: Patient is a very pleasant 73-year-old male with a past medical history of CAD status post CABG x2 in September 2023, multiple stents, ESRD on hemodialysis (TThSa), chronic diastolic CHF, insulin-dependent diabetes mellitus with insulin pump, COPD, hypertension, hyperlipidemia, and obstructive sleep apnea CPAP dependent nightly. He presented to the emergency department with a chief complaint of chest pain. Patient reports he has not been feeling well the past 2 days and missed dialysis yesterday secondary to exertional chest pain and was scheduled to undergo missed session this morning but continued to have significant chest pain so his spouse pulled into the fire station for assistance and to transport him to the hospital safely. Patient reports over the past 48 hours he has taken more than 6 sublingual nitro's for intermittent episodes of chest pain. He reports mild improvement after administration of nitro but states does return and worsens with exertion. He reports pain is to midsternal chest and denies any radiation of pain. He again reports pain worsens with any exertion and does admit to exertional shortness of breath but denies experiencing shortness of breath at rest. Patient also denies having any headache, lightheadedness, dizziness, palpitations, cough or congestion, abdominal pain, nausea, vomiting, or experiencing any numbness/tingling/weakness in his extremities. Patient reports swelling in his lower extremities has significantly improved. Patient states he follows with cut press operator, Dr. Castle. Upon arrival to our facility, patient underwent evaluation in the emergency department. Vital signs upon arrival show blood pressure 113/50, heart rate 64, respiratory rate 18, temp 97.8 F, and SpO2 of 97% on room air. EKG completed showing normal sinus rhythm at 62 bpm with a right bundle branch block. Chest x-ray completed showing borderline to mild cardiomegaly with some strandy lower lung atelectasis. Labs completed and reviewed. CBC showing stable normocytic anemia with hemoglobin of 10.3. Coagulation profile normal findings. BMP showing hypochloremic hyponatremia with sodium of 136 and chloride of 97, hyperkalemia with potassium of 5.2, and renal function consistent with known ESRD with BUN of 61, creatinine of 7.08, GFR of 7. Blood glucose was 191. Magnesium 2.2. Liver profile unremarkable. Troponin was elevated at 0.044. Influenza A, influenza B, RSV, and COVID PCR were negative. Patient was started on low intensity heparin infusion and admitted under our services with consultation to cardiology and nephrology. Dialysis x 2 sessions during hospitalization. He was evaluated by cut press operator and taken for cardiac stress test and a KAREEM. Cardiac stress test showing nonspecific stress EKG given inability to reach 85% of maximum predicted heart rate and abnormal resting EKG, poor exercise capacity and appears to have adequate inotropic response. Blood pressure was hypotensive. Patient was started on midodrine 10 mg 3 times daily. He was then taken for KAREEM, KAREEM showing aortic valve is tricuspid with moderate aortic stenosis and aortic valve area of 1.1 cm, mitral valve reported to be normal with mild to moderate regurgitation and interatrial septum is intact with no evidence of PFO. Left atrial appendage is reported to be free of clot and EF 45%. Patient cleared from cardiac perspective recommending outpatient follow-up in their office in 1 week. Patient also cleared from nephrology's perspective and to continue dialysis as scheduled. Patient currently free from any chest pain or any other complaints at this time. He was discharged home with prescription for midodrine 10 mg 3 times daily and Ranexa was increased to her 1000 mg twice daily. Patient to follow-up outpatient with PCP in 1 to 2 days and with cut press operator in 1 week. Physical exam: Vital signs reviewed and stable. General: Nontoxic, no distress and appears stated age. Derm: Skin warm and dry, normal coloration for ethnicity. Head: Atraumatic, normocephalic and symmetric. Eyes: EOM's intact, no lid lag, and anicteric sclera Mouth: no lip lesions, mucus membranes moist Cardiovascular: regular rate and rhythm with normal S1S2, systolic murmur, positive posterior tibial pulses bilaterally, and cap refill < 2 seconds. AV fistula left upper extremity with bruit and thrill intact. Lungs: Respirations even, regular, and unlabored on room air. Lungs CTA bilaterally, no rhonchi, no rales, no wheezing, and no accessory muscle usage. Abdominal: soft, nontender to palpation, no guarding, no appreciable organomegaly Ext: ROM intact. No gross muscle atrophy, no contractures and no lower extremity edema Neuro: Speech clear, face symmetrical and CN II-XII grossly intact with no noted focal neuro deficits Psych: Alert and oriented to person, place, time, and situation. Appropriate and pleasant affect. A total of 37 minutes of time were spent preparing this complex discharge summary. Pt was discharged on 07/06/2024 at 1:49 PM. Patient was seen independently by Nurse Practitioner. This document was prepared using [employer] dictation software. Please allow for errors in php wordpress developer while rare they do occur. Manuel Ivey NP rendered care for this patient independently, reviewed the findings and plan as documented in the note above. I did not physically speak with or examine the patient on this date. Patient Condition at Discharge: Stable Plan - Discharge Summary Discharge Rx Participant: No New Discharge Prescriptions: New Midodrine [ProAmatine] 10 mg PO AC-TID 30 Days #90 tab Ranolazine [Ranexa] 1,000 mg PO BID 30 Days #120 tab Continue Ezetimibe [Zetia] 10 mg PO DAILY Ferrous Sulfate [Iron (65 MG Elemental)] 325 mg PO DAILY Insulin Aspart (For Pump) [NovoLOG (For Pump)] 0.01 unit SQ-PUMP CONTINUOUS Pramipexole [Mirapex] 0.5 mg PO BID PRN PRN Reason: Restless legs Albuterol Inhaler [Ventolin Hfa Inhaler] 2 puff INHALATION RT-Q4H PRN PRN Reason: Shortness Of Breath Glucagon Emergency Kit 1 mg IM ONCE PRN PRN Reason: Hypoglycemia Escitalopram [Lexapro] 10 mg PO DAILY Cetirizine HCl [Zyrtec] 10 mg PO DAILY Rosuvastatin [Crestor] 10 mg PO HS Metoprolol Tartrate [Lopressor] 25 mg PO BID 30 Days #60 tab Isosorbide Mononitrate ER [Imdur] 30 mg PO DAILY Nitroglycerin Sl Tabs [Nitrostat] 0.4 mg SL Q5M PRN PRN Reason: Chest Pain Aspirin EC [Ecotrin Low Dose] 81 mg PO DAILY Tamsulosin [Flomax] 0.4 mg PO HS ALPRAZolam [Xanax] 0.5 mg PO HS PRN PRN Reason: Severe Anxiety Cholecalciferol [Vitamin D3 (25 Mcg = 1000 Iu)] 50 mcg PO DAILY Folic Acid/Vit B Complex and C [Nephro-Pooja Tablet] 0.8 mg PO DAILY Torsemide [Demadex] 40 mg PO SUMOWEFR Clopidogrel [Plavix] 75 mg PO DAILY #30 tab Topiramate [Topamax] 25 mg PO BID Sacubitril/Valsartan [Entresto 24 mg-26 mg Tablet] 1 tab PO BID Discontinued Ranolazine [Ranexa] 500 mg PO BID Discharge Medication List Ezetimibe [Zetia] 10 mg PO DAILY 05/19/16 [History] Ferrous Sulfate [Iron (65 MG Elemental)] 325 mg PO DAILY 05/19/16 [History] Insulin Aspart (For Pump) [NovoLOG (For Pump)] 0.01 unit SQ-PUMP CONTINUOUS 05/28/18 [History] Pramipexole [Mirapex] 0.5 mg PO BID PRN 05/02/19 [History] Albuterol Inhaler [Ventolin Hfa Inhaler] 2 puff INHALATION RT-Q4H PRN 08/10/21 [History] Aspirin EC [Ecotrin Low Dose] 81 mg PO DAILY 02/21/22 [History] Glucagon Emergency Kit 1 mg IM ONCE PRN 02/21/22 [History] Escitalopram [Lexapro] 10 mg PO DAILY 01/01/23 [History] ALPRAZolam [Xanax] 0.5 mg PO HS PRN 06/17/23 [History] Cholecalciferol [Vitamin D3 (25 Mcg = 1000 Iu)] 50 mcg PO DAILY 06/17/23 [History] Tamsulosin [Flomax] 0.4 mg PO HS 06/17/23 [History] Cetirizine HCl [Zyrtec] 10 mg PO DAILY 09/22/23 [History] Folic Acid/Vit B Complex and C [Nephro-Pooja Tablet] 0.8 mg PO DAILY 09/22/23 [History] Torsemide [Demadex] 40 mg PO SUMOWEFR 09/22/23 [History] Clopidogrel [Plavix] 75 mg PO DAILY #30 tab 10/24/23 [Rx] Rosuvastatin [Crestor] 10 mg PO HS 06/07/24 [History] Topiramate [Topamax] 25 mg PO BID 06/07/24 [History] Metoprolol Tartrate [Lopressor] 25 mg PO BID 30 Days #60 tab 06/10/24 [Rx] Sacubitril/Valsartan [Entresto 24 mg-26 mg Tablet] 1 tab PO BID 06/19/24 [History] Isosorbide Mononitrate ER [Imdur] 30 mg PO DAILY 07/04/24 [History] Nitroglycerin Sl Tabs [Nitrostat] 0.4 mg SL Q5M PRN 07/04/24 [History] Midodrine [ProAmatine] 10 mg PO AC-TID 30 Days #90 tab 07/06/24 [Rx] Ranolazine [Ranexa] 1,000 mg PO BID 30 Days #120 tab 07/06/24 [Rx] Follow up Appointment(s)/Referral(s): [facility] [NON-STAFF] - As Needed ([id number] AT [id number]) Marlon Valentino DO [Primary Care Provider] - 1-2 days Patient Instructions/Handouts: Chest Pain (DC) Activity/Diet/Wound Care/Special Instructions: Activity: As tolerated. Take breaks as needed. Diet: Heart healthy and carb consistent diet. Avoid salts, or foods with hidden salts such as canned or boxed foods and frozen dinners. Extra salt makes your heart work harder and traps the fluid in your body for longer. Special Instructions: Take all of your medications as directed and remember to keep all of your doctor's appointments and follow-up as needed. And see, I kept my promise!!! Enjoy the time with your grandaughters and wishing you and your family a very blessed and wonderful holiday season and a Happy Healthy New Year!! Thank you for allowing us to participate in your care, it was truly a pleasure having you for our patient!!! . Discharge Disposition: HOME SELF-CARE
[2024-07-06 14:20] VITALS: BP 93/49; PULSE 63; RESP 18; TEMP 97.5
== END 2024-07-06 14:56 | disposition home or self-care (01) ==
LOC: EC 08:08 → 6NMEDSUR 10:46
PROVIDERS: ADMIT Internal Medicine; ATTEND Internal Medicine
DX: R79.89 Other specified abnormal findings of blood chemistry (principal); I50.32 Chronic diastolic (congestive) heart failure; I25.110 Atherosclerotic heart disease of native coronary artery with unstable angina pectoris; I13.2 Hypertensive heart and chronic kidney disease with heart failure and with stage 5 chronic kidney disease, or end stage renal disease; E87.1 Hypo-osmolality and hyponatremia; E87.5 Hyperkalemia; E87.8 Other disorders of electrolyte and fluid balance, not elsewhere classified; E78.5 Hyperlipidemia, unspecified; E11.65 Type 2 diabetes mellitus with hyperglycemia; E11.22 Type 2 diabetes mellitus with diabetic chronic kidney disease; N18.6 End stage renal disease; D63.1 Anemia in chronic kidney disease; J44.9 Chronic obstructive pulmonary disease, unspecified; I95.1 Orthostatic hypotension; I44.0 Atrioventricular block, first degree; I08.0 Rheumatic disorders of both mitral and aortic valves; I45.10 Unspecified right bundle-branch block; I25.5 Ischemic cardiomyopathy; J98.11 Atelectasis; G47.33 Obstructive sleep apnea (adult) (pediatric); N40.0 Benign prostatic hyperplasia without lower urinary tract symptoms; R00.1 Bradycardia, unspecified; R19.7 Diarrhea, unspecified; F41.9 Anxiety disorder, unspecified; Z79.4 Long term (current) use of insulin; Z79.82 Long term (current) use of aspirin; Z79.02 Long term (current) use of antithrombotics/antiplatelets; Z79.899 Other long term (current) drug therapy; Z87.891 Personal history of nicotine dependence; Z88.8 Allergy status to other drugs, medicaments and biological substances; Z96.41 Presence of insulin pump (external) (internal); Z95.1 Presence of aortocoronary bypass graft; Z95.5 Presence of coronary angioplasty implant and graft; Z99.2 Dependence on renal dialysis; Z99.89 Dependence on other enabling machines and devices; Z83.3 Family history of diabetes mellitus; Z11.52 Encounter for screening for COVID-19; Z11.59 Encounter for screening for other viral diseases
CPT/HCPCS: 96366 ×3; 96376; 96365; 99291; 36415; 93005; 93312; 93017; 93320; 93325; 80053 ×3; 83735 ×2; 84100; 84484; 85025 ×2; 85027; 85610 ×2; 85730 ×2; 81001; 87636; 71046; G0378 ×3; J2250; J3010; J1644 ×3; 90935

== ENCOUNTER 2024-07-12 09:10 | Observation (INO) | payer MEDICARE ==
[2024-07-12 09:35] LABS: Glucose,Whole Blood 116 mg/dL (70-110)
--- NOTE | 2024-07-12 09:51 | ED ---
General Adult HPI - General Chief complaint: Chest Pain Stated complaint: Chest pain Time Seen by Provider: 07/12/24 09:14 Source: patient, RN notes reviewed, old records reviewed Mode of arrival: EMS Limitations: no limitations - History of Present Illness Initial comments: 3-year-old male history of CAD, end-stage renal disease on hemodialysis present ing for evaluation of chest pain and fatigue. Patient states he had chest pain this morning prior to dialysis and did take 3 total sublingual nitro. He went to dialysis but states he felt lightheaded and tired during dialysis and presented to the emergency department for evaluation. His chest pain is currently resolved. He states he received a little over an hour of hemodialysis. - Related Data Home Medications Medication Instructions Recorded Confirmed Ezetimibe [Zetia] 10 mg PO DAILY 05/19/16 07/04/24 Ferrous Sulfate [Iron (65 MG 325 mg PO DAILY 05/19/16 07/04/24 Elemental)] Insulin Aspart (For Pump) [NovoLOG 0.01 unit SQ-PUMP CONTINUOUS 05/28/18 07/04/24 (For Pump)] Pramipexole [Mirapex] 0.5 mg PO BID PRN 05/02/19 07/04/24 Albuterol Inhaler [Ventolin Hfa 2 puff INHALATION RT-Q4H PRN 08/10/21 07/04/24 Inhaler] Aspirin EC [Ecotrin Low Dose] 81 mg PO DAILY 02/21/22 07/04/24 Glucagon Emergency Kit 1 mg IM ONCE PRN 02/21/22 07/04/24 Escitalopram [Lexapro] 10 mg PO DAILY 01/01/23 07/04/24 ALPRAZolam [Xanax] 0.5 mg PO HS PRN 06/17/23 07/04/24 Cholecalciferol [Vitamin D3 (25 50 mcg PO DAILY 06/17/23 07/04/24 Mcg = 1000 Iu)] Tamsulosin [Flomax] 0.4 mg PO HS 06/17/23 07/04/24 Cetirizine HCl [Zyrtec] 10 mg PO DAILY 09/22/23 07/04/24 Folic Acid/Vit B Complex and C 0.8 mg PO DAILY 09/22/23 07/04/24 [Nephro-Pooja Tablet] Torsemide [Demadex] 40 mg PO SUMOWEFR 09/22/23 07/04/24 Rosuvastatin [Crestor] 10 mg PO HS 06/07/24 07/04/24 Topiramate [Topamax] 25 mg PO BID 06/07/24 07/04/24 Sacubitril/Valsartan [Entresto 24 1 tab PO BID 06/19/24 07/04/24 mg-26 mg Tablet] Isosorbide Mononitrate ER [Imdur] 30 mg PO DAILY 07/04/24 07/04/24 Nitroglycerin Sl Tabs [Nitrostat] 0.4 mg SL Q5M PRN 07/04/24 07/04/24 Previous Rx's Medication Instructions Recorded Clopidogrel [Plavix] 75 mg PO DAILY #30 tab 10/24/23 Metoprolol Tartrate [Lopressor] 25 mg PO BID 30 Days #60 tab 06/10/24 Midodrine [ProAmatine] 10 mg PO AC-TID 30 Days #90 tab 07/06/24 Ranolazine [Ranexa] 1,000 mg PO BID 30 Days #120 tab 07/06/24 Allergies Allergy/AdvReac Type Severity Reaction Status Date / Time zolpidem [From Ambien] Allergy Hallucinati Verified 07/04/24 09:44 ons atorvastatin [From Lipitor] AdvReac jt and Verified 07/04/24 09:44 muscle pain baclofen AdvReac caused a Verified 07/04/24 09:44 fall Review of Systems ROS Statement: Those systems with pertinent positive or pertinent negative responses have been documented in the HPI. ROS Other: All systems not noted in ROS Statement are negative. Past Medical History Past Medical History: Blood Disorder, Coronary Artery Disease (CAD), Chest Pain / Angina, Heart Failure, COPD, Diabetes Mellitus, Dialysis, Hearing Disorder / Deafness, Hyperlipidemia, Hypertension, Myocardial Infarction ([place]), Osteoarthritis (OA), Renal Disease, Sleep Apnea/CPAP/BIPAP Additional Past Medical History / Comment(s): has insulin pump and contiunuous blood glucose monitor,fell at home on Tuesday10-10-23"got dizzy"-no injury,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. Chronic renal failure, dialysis [facility] normally. Patient has insulin pump. Has CPAP, occasionally uses. Neuropathy in feet and hands. Poor hearing. Last Myocardial Infarction Date:: History of Any Multi-Drug Resistant Organisms: None Reported Past Surgical History: Cholecystectomy, Coronary Bypass/CABG, Heart Camila terization, Heart Catheterization With Stent, Orthopedic Surgery Additional Past Surgical History / Comment(s): Shoulder surgery-no hardware, hemorrhoidectomy, eye surgery,4 cardiac stents,AV fistula left forearm, double vessle CABG 10/17/23 Past Anesthesia/Blood Transfusion Reactions: No Reported Reaction Additional Past Anesthesia/Blood Transfusion Reaction / Comment(s): Never had a blood transfusion. Date of Last Stent Placement:: 2004,2014,2023 Past Psychological History: Anxiety Additional Psychological History / Comment(s): Shopping and crowds bother patient. Smoking Status: Former smoker Past Alcohol Use History: None Reported Additional Past Alcohol Use History / Comment(s): Quit smoking in 1980. Past Drug Use History: None Reported - Past Family History Father Family Medical History: Cancer Additional Family Medical History / Comment(s): Bladder cancer. Mother Family Medical History: Cancer, Diabetes Mellitus Additional Family Medical History / Comment(s): Pancreatic cancer. General Exam Limitations: no limitations General appearance: alert, in no apparent distress Head exam: Present: atraumatic, normocephalic Eye exam: Present: normal appearance, PERRL ENT exam: Present: normal exam Neck exam: Present: normal inspection. Absent: tenderness, meningismus Respiratory exam: Present: normal lung sounds bilaterally. Absent: respiratory distress, wheezes Cardiovascular Exam: Present: regular rate, normal rhythm, systolic murmur GI/Abdominal exam: Present: soft. Absent: distended, tenderness, guarding Extremities exam: Present: normal inspection, normal capillary refill Neurological exam: Present: alert, oriented X3, CN II-XII intact. Absent: motor sensory deficit Skin exam: Present: warm, dry, intact Course Vital Signs 07/12/24 07/12/24 09:31 09:40 Temperature 97.9 F Pulse Rate 67 Pulse Rate [ 67 Pulse Oximetery ] Respiratory 16 Rate Blood Pressure 124/56 O2 Sat by Pulse 97 Oximetry Medical Decision Making - Medical Decision Making Was pt. sent in by a medical professional or institution (, PA, MANNEQUIN COLORING ARTIST, urgent care, hospital, or retirement...) When possible be specific @ -No Did you speak to anyone other than the patient for history (EMS, parent, family, police, friend...)? What history was obtained from this source @ -No Did you review nursing and triage notes (agree or disagree)? Why? @ -I reviewed and agree with nursing and triage notes Were old charts reviewed (outside hosp., previous admission, EMS record, old EKG, old radiological studies, urgent care reports/EKG's, retirement records)? Report findings @ -No old charts were reviewed Differential Diagnosis (chest pain, altered mental status, abdominal pain women, abdominal pain men, vaginal bleeding, weakness, fever, dyspnea, syncope, headach e, dizziness, GI bleed, back pain, seizure, CVA, palpatations, mental health, musculoskeletal)? @ -Not applicable EKG interpreted by me (3pts min.). @Sinus rhythm left anterior fascicular block, right bundle branch block, first- degree AV block rate of 70, VA interval 322, QRS duration 172, QTc [address] segment elevation. X-rays interpreted by me (1pt min.). @Chest x-ray negative for acute cardiopulmonary findings CT interpreted by me (1pt min.). @ -None done U/S interpreted by me (1pt. min.). @ -None done What testing was considered but not performed or refused? (CT, X-rays, U/S, labs)? Why? @ -None What meds were considered but not given or refused? Why? @ -None Did you discuss the management of the patient with other professionals (professionals i.e. , PA, MANNEQUIN COLORING ARTIST, lab, RT, psych nurse, oncology social worker, aviation technical systems specialist, teacher, naval gunfire liaison officer, case coordinator)? Give summary @Case discussed with Dr. Woodruff who will admit. Was smoking cessation discussed for >3mins.? @ -No Was critical care preformed (if so, how long)? @ -No Were there social determinants of health that impacted care today? How? (Homelessness, low income, unemployed, alcoholism, drug addiction, transportation, low edu. Level, literacy, decrease access to med. care, custodial, rehab)? @ -No Was there de-escalation of care discussed even if they declined (Discuss DNR or withdrawal of care, Hospice)? DNR status @ -No What co-morbidities impacted this encounter? (DM, HTN, Smoking, COPD, CAD, Cancer, CVA, ARF, Chemo, Hep., AIDS, mental health diagnosis, sleep apnea, morbid obesity)? @ -[CAD status post bypass, end-stage renal disease on hemodialysis. Was patient admitted / discharged? Hospital course, mention meds given and route, prescriptions, significant lab abnormalities, going to OR and other pertinent info. @73-year-old male presenting with chest pain, and hypotension while at dialysis. This has been somewhat of an ongoing issue for this patient. The chest pain began prior to dialysis today and was relieved by nitroglycerin. EKG shows no ST segment elevation. Chest x-ray is clear. He has mild anemia, normal white blood cell count, his potassium is 4.4. His troponin is negative. Patient's does indicated there has been some medication adjusting recently. Will observe the patient overnight for serial cardiac enzymes, consultation with both cardiology and nephrology. Case discussed with sound physician group. Undiagnosed new problem with uncertain prognosis? @ -No Drug Therapy requiring intensive monitoring for toxicity (Heparin, Nitro, Insulin, Cardizem)? @ -No Were any procedures done? @ -No Diagnosis/symptom? @ -Chest pain, end-stage renal disease Acute, or Chronic, or Acute on Chronic? @Acute Uncomplicated (without systemic symptoms) or Complicated (systemic symptoms)? @ -Default Side effects of treatment? @ -No Exacerbation, Progression, or Severe Exacerbation? @ -No Poses a threat to life or bodily function? How? (Chest pain, [place], [place], pneumonia, PE, COPD, DKA, ARF, appy, cholecystitis, CVA, Diverticulitis, Homicidal, Suicidal, threat to staff... and all critical care pts) @ -Yes, ACS - Lab Data Result diagrams: 07/12/24 09:39 07/12/24 09:39 Lab Results 07/12/24 07/12/24 07/12/24 Range/Units 09:26 09:39 09:39 WBC 5.3 (3.8-10.6) k/uL RBC 3.70 L (4.30-5.90) m/uL Hgb 11.9 L (13.0-17.5) gm/dL Hct 35.3 L (39.0-53.0) % MCV 95.6 (80.0-100.0) fL MCH 32.3 (25.0-35.0) pg MCHC 33.8 (31.0-37.0) g/dL RDW 13.8 (11.5-15.5) % Plt Count 157 (150-450) k/uL MPV 8.7 Neutrophils % 50 % Lymphocytes % 35 % Monocytes % 8 % Eosinophils % 3 % Basophils % 0 % Neutrophils # 2.7 (1.3-7.7) k/uL Lymphocytes # 1.9 (1.0-4.8) k/uL Monocytes # 0.4 (0-1.0) k/uL Eosinophils # 0.2 (0-0.7) k/uL Basophils # 0.0 (0-0.2) k/uL PT (10.0-12.5) sec INR (<1.2) APTT (22.0-30.0) sec Sodium 138 (137-145) mmol/L Potassium 4.4 (3.5-5.1) mmol/L Chloride 96 L (98-107) mmol/L Carbon Dioxide 33 H (22-30) mmol/L Anion Gap 9 mmol/L BUN 35 H (9-20) mg/dL Creatinine 3.88 H (0.66-1.25) mg/dL Est GFR (CKD-EPI)AfAm 17 (>60 ml/min/1.73 sqM) Est GFR (CKD-EPI)NonAf 14 (>60 ml/min/1.73 sqM) Glucose 122 H (74-99) mg/dL POC Glucose (mg/dL) 116 H (70-110) mg/dL POC Glu Pretzel Twisting Machine Operator ID Castañeda Kenrick Calcium 8.6 (8.4-10.2) mg/dL Magnesium 2.1 (1.6-2.3) mg/dL Total Bilirubin 0.8 (0.2-1.3) mg/dL AST 39 (17-59) U/L ALT 19 (4-49) U/L Alkaline Phosphatase 93 (38-126) U/L Troponin I (0.000-0.034) ng/mL Total Protein 8.0 (6.3-8.2) g/dL Albumin 4.5 (3.5-5.0) g/dL 07/12/24 07/12/24 Range/Units 09:39 11:09 WBC (3.8-10.6) k/uL RBC (4.30-5.90) m/uL Hgb (13.0-17.5) gm/dL Hct (39.0-53.0) % MCV (80.0-100.0) fL MCH (25.0-35.0) pg MCHC (31.0-37.0) g/dL RDW (11.5-15.5) % Plt Count (150-450) k/uL MPV Neutrophils % % Lymphocytes % % Monocytes % % Eosinophils % % Basophils % % Neutrophils # (1.3-7.7) k/uL Lymphocytes # (1.0-4.8) k/uL Monocytes # (0-1.0) k/uL Eosinophils # (0-0.7) k/uL Basophils # (0-0.2) k/uL PT 10.7 (10.0-12.5) sec INR 1.0 (<1.2) APTT 24.5 (22.0-30.0) sec Sodium (137-145) mmol/L Potassium (3.5-5.1) mmol/L Chloride (98-107) mmol/L Carbon Dioxide (22-30) mmol/L Anion Gap mmol/L BUN (9-20) mg/dL Creatinine (0.66-1.25) mg/dL Est GFR (CKD-EPI)AfAm (>60 ml/min/1.73 sqM) Est GFR (CKD-EPI)NonAf (>60 ml/min/1.73 sqM) Glucose (74-99) mg/dL POC Glucose (mg/dL) (70-110) mg/dL POC Glu Pretzel Twisting Machine Operator ID Calcium (8.4-10.2) mg/dL Magnesium (1.6-2.3) mg/dL Total Bilirubin (0.2-1.3) mg/dL AST (17-59) U/L ALT (4-49) U/L Alkaline Phosphatase (38-126) U/L Troponin I 0.019 (0.000-0.034) ng/mL Total Protein (6.3-8.2) g/dL Albumin (3.5-5.0) g/dL Disposition Clinical Impression: Chest pain, Missed dialysis Disposition: ADMITTED IP TO THIS HOSP Condition: Stable Is patient prescribed a controlled substance at d/c from ED?: No Referrals: Marlon Valentino DO [Primary Care Provider] - 1-2 days Time of Disposition: 12:40
[2024-07-12 09:54] LABS: Basophils % (A) 0 %; Eosinophils # (A) 0.2 k/uL (0-0.7); Eosinophils % (A) 3 %; HCT 35.3 % (39.0-53.0); HGB 11.9 gm/dL (13.0-17.5); Lymphocytes # (A) 1.9 k/uL (1.0-4.8); Lymphocytes % (A) 35 %; MCH 32.3 pg (25.0-35.0); MCHC 33.8 g/dL (31.0-37.0); MCV 95.6 fL (80.0-100.0); Mean Platelet Volume 8.7; Monocytes # (A) 0.4 k/uL (0-1.0); Monocytes % (A) 8 %; Neutrophils # (A) 2.7 k/uL (1.3-7.7); Neutrophils % (A) 50 %; Platelet Count 157 k/uL (150-450); RDW 13.8 % (11.5-15.5); WBC 5.3 k/uL (3.8-10.6)
[2024-07-12 10:02] LABS: ALT 19 U/L (4-49); African American GFR (CKD) 17 (>60 ml/min/1.73 sqM); Albumin 4.5 g/dL (3.5-5.0); Anion Gap 9 mmol/L; Blood Urea Nitrogen 35 mg/dL (9-20); Calcium 8.6 mg/dL (8.4-10.2); Carbon Dioxide 33 mmol/L (22-30); Chloride 96 mmol/L (98-107); Glucose 122 mg/dL (74-99); Non-African American GFR(CKD) 14 (>60 ml/min/1.73 sqM); Sodium 138 mmol/L (137-145); Total Bilirubin 0.8 mg/dL (0.2-1.3)
[2024-07-12 10:11] LABS: AST 39 U/L (17-59); Alkaline Phosphatase 93 U/L (38-126); Magnesium 2.1 mg/dL (1.6-2.3); Potassium 4.4 mmol/L (3.5-5.1)
--- NOTE | 2024-07-12 10:42 | XR ---
EXAMINATION TYPE: XR chest 2V DATE OF EXAM: 07/12/2024 9:58 AM COMPARISON: 07/04/2024 CLINICAL INDICATION: Male, 73 years old with history of Chest Pain, TECHNIQUE: XR chest 2V view(s) obtained. FINDINGS: The heart size is normal. The pulmonary vasculature is normal. The lungs are clear. Sternotomy wires are in the midline. IMPRESSION: 1. No acute pulmonary process. [facility], , 07/12/2024 10:40 AM
[2024-07-12 11:32] LABS: Partial Thromboplastin Time 24.5 sec (22.0-30.0); Prothrombin Time 10.7 sec (10.0-12.5)
[2024-07-12] MEDS ORDERED: NALOXONE 0.4 MG/ML 1 ML VIAL IV PRN (12:34)
[2024-07-12] MEDS ORDERED: ACETAMINOPHEN TAB 325 MG TAB PO PRN (12:34)
[2024-07-12 15:20] LABS: Glucose,Whole Blood 57 mg/dL (70-110)
--- NOTE | 2024-07-12 16:00 | P.HPIM ---
History of Present Illness H&P Date: 07/12/24 Patient is a 73-year-old male with a past medical history significant for HFrEF, coronary artery disease with extensive cardiac history including CABG x 2 and cardiac catheterization with multiple stents, ESRD on hemodialysis ([facility]), hypertension, COPD, hyperlipidemia, insulin-dependent diabetes mellitus, and obstructive sleep apnea presented to the emergency department with a chief complaint of chest pain. He states that his chest pain started this morning around 5 AM, he took 1 nitroglycerin tablet that did not help about 10 minutes later he took another 1 that did seem to resolve his chest pain. Shortly after that he got into his car to go to dialysis when his chest pain resume and he took another nitroglycerin tablet which did resolve that chest pain. About 1.5 hours into dialysis the chest pain started again an ambulance was called. While in the ambulance he received another nitroglycerin tablet and 3 aspirin which resolved his chest pain. He he states that the chest pain is middle to the left sternal chest pain that he gets almost daily, he usually the chest pain starts w hen he exerts himself but sometimes it occurs at rest. He rates the episodes of chest pain today as 56/10 and sharp. The episode at dialysis was associated with lightheadedness, heaviness in the face, and numbness of the right arm. All of the symptoms have resolved at this time. Currently denies fever, chills, nausea, vomiting, abdominal pain. EKG independently interpreted as sinus rhythm with first-degree AV block. Chest x-ray showed: No acute pulmonary process. Initial labs show: WBCs 5.3, hemoglobin 11.9, hematocrit 35.3, platelets 157, PT 10.7, INR 1.0, APTT 24.5, sodium 138, potassium 4.4, chloride 96, CO2 33, BUN 35, creatinine 3.80, glucose 122, troponin X1 0.019. Vitals on admission: T 97.9 F, IA 67 bpm, RR 16, BP 124/56, O2 sat of 97% on room air. ED documentation reviewed. Review of systems: Pertinent positives and negatives as discussed in HPI, a complete review of systems was performed and all other systems are negative. Social history: Tobacco: Former smoker Alcohol: None reported Recreational drugs: None reported Travel: No recent travel Sick contacts: None reported Physical examination: Vital signs reviewed General: Nontoxic, no distress, appears stated age, well-appearing Derm: Warm, dry, intact Head: Atraumatic, normocephalic, symmetric Eyes: EOMI, anicteric sclera Mouth: No lip lesion, mucus membranes moist Cardiovascular: S1-S2 regular, systolic murmur Lungs: CTA bilateral, no rhonchi, no rales, no accessory muscle use Abdominal: Soft, non-tender to palpation Extremities: No cyanosis, clubbing, or pedal edema. Neuro: Alert, oriented x 3, gross neurological examination did not reveal any focal deficits. Cranial nerves II to XII grossly intact. Psych: Appropriate affect and mood Assessment and Plan: Patient is a 73-year-old male with a past medical history significant for HFrEF, coronary artery disease with extensive cardiac history including CABG x 2 and cardiac catheterization with multiple stents, ESRD on hemodialysis ([facility]), hypertension, COPD, hyperlipidemia, insulin-dependent diabetes mellitus, and obstructive sleep apnea presented to the emergency department with a chief complaint of chest pain. Active #. Chest pain Telemetry monitoring Trend troponins Consult cardiology Chronic #. HFrEF, not in acute exacerbation Continue home medications #. ESRD Nephrology consulted for management of dialysis #. Hypertension Monitor vital signs Continue home medications #. Insulin dependent diabetes mellitus Continue insulin pump Accu-Cheks ACHS #. COPD, not in acute exacerbation Continue nebulizer treatments every 4 hours as needed for wheezing/shortness of breath Oxygen needed maintain SpO2 >90% Continue home medications #. History of CABG x 2 and multiple stents Continue home medications #. Hyperlipidemia Continue home medications #. BPH Continue home medications F: None E: Replete if required N: Heart healthy A: Ambulatory DVT prophylaxis: Heparin SQ The patient is admitted with an anticipated less than 2 midnight stay for evaluation of chest pain. CODE STATUS: Full code Discussed with: Dr. Dodge Anticipated discharge place: Home Attending attestation I have seen and evaluated the patient today. Discussed with the resident and agree with the residents subjective and objective as documented in the resident's note. The assessment and plan was discussed and outlined as below. Past Medical History Past Medical History: Blood Disorder, Coronary Artery Disease (CAD), Chest Pain / Angina, Heart Failure, COPD, Diabetes Mellitus, Dialysis, Hearing Disorder / Deafness, Hyperlipidemia, Hypertension, Myocardial Infarction ([place]), Osteoarthritis (OA), Renal Disease, Sleep Apnea/CPAP/BIPAP Additional Past Medical History / Comment(s): has insulin pump and contiunuous blood glucose monitor,fell at home on Tuesday10-10-23"got dizzy"-no injury,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. Chronic renal failure, dialysis [facility] normally. Patient has insulin pump. Has CPAP, occasionally uses. Neuropathy in feet and hands. Poor hearing. Last Myocardial Infarction Date:: History of Any Multi-Drug Resistant Organisms: None Reported Past Surgical History: Cholecystectomy, Coronary Bypass/CABG, Heart Catheteri zation, Heart Catheterization With Stent, Orthopedic Surgery Additional Past Surgical History / Comment(s): Shoulder surgery-no hardware, hemorrhoidectomy, eye surgery,4 cardiac stents,AV fistula left forearm, double vessle CABG 10/17/23 Past Anesthesia/Blood Transfusion Reactions: No Reported Reaction Additional Past Anesthesia/Blood Transfusion Reaction / Comment(s): Never had a blood transfusion. Date of Last Stent Placement:: 2004,2014,2023 Past Psychological History: Anxiety Additional Psychological History / Comment(s): Shopping and crowds bother patient. Smoking Status: Former smoker Past Alcohol Use History: None Reported Additional Past Alcohol Use History / Comment(s): Quit smoking in 1980. Past Drug Use History: None Reported - Past Family History Father Family Medical History: Cancer Additional Family Medical History / Comment(s): Bladder cancer. Mother Family Medical History: Cancer, Diabetes Mellitus Additional Family Medical History / Comment(s): Pancreatic cancer. Medications and Allergies Home Medications Medication Instructions Recorded Confirmed Type Ezetimibe [Zetia] 10 mg PO DAILY 05/19/16 07/12/24 History Ferrous Sulfate [Iron (65 MG 325 mg PO DAILY 05/19/16 07/12/24 History Elemental)] Insulin Aspart (For Pump) [NovoLOG 0.01 unit SQ-PUMP CONTINUOUS 05/28/18 07/12/24 History (For Pump)] Pramipexole [Mirapex] 0.5 mg PO BID PRN 05/02/19 07/12/24 History Albuterol Inhaler [Ventolin Hfa 2 puff INHALATION RT-Q4H PRN 08/10/21 07/12/24 History Inhaler] Aspirin EC [Ecotrin Low Dose] 81 mg PO DAILY 02/21/22 07/12/24 History Glucagon Emergency Kit 1 mg IM ONCE PRN 02/21/22 07/12/24 History Escitalopram [Lexapro] 10 mg PO DAILY 01/01/23 07/12/24 History ALPRAZolam [Xanax] 0.5 mg PO HS PRN 06/17/23 07/12/24 History Cholecalciferol [Vitamin D3 (25 50 mcg PO DAILY 06/17/23 07/12/24 History Mcg = 1000 Iu)] Tamsulosin [Flomax] 0.4 mg PO HS 06/17/23 07/12/24 History Cetirizine HCl [Zyrtec] 10 mg PO DAILY 09/22/23 07/12/24 History Folic Acid/Vit B Complex and C 0.8 mg PO DAILY 09/22/23 07/12/24 History [Nephro-Pooja Tablet] Torsemide [Demadex] 40 mg PO SUMOWEFR 09/22/23 07/12/24 History Clopidogrel [Plavix] 75 mg PO DAILY #30 tab 10/24/23 07/12/24 Rx Rosuvastatin [Crestor] 10 mg PO HS 06/07/24 07/12/24 History Topiramate [Topamax] 25 mg PO BID 06/07/24 07/12/24 History Metoprolol Tartrate [Lopressor] 25 mg PO BID 30 Days #60 tab 06/10/24 07/12/24 Rx Sacubitril/Valsartan [Entresto 24 1 tab PO BID 06/19/24 07/12/24 History mg-26 mg Tablet] Isosorbide Mononitrate ER [Imdur] 30 mg PO DAILY 07/04/24 07/12/24 History Nitroglycerin Sl Tabs [Nitrostat] 0.4 mg SL Q5M PRN 07/04/24 07/12/24 History Midodrine [ProAmatine] 10 mg PO AC-TID 30 Days #90 tab 07/06/24 07/12/24 Rx Ranolazine [Ranexa] 1,000 mg PO BID 30 Days #120 tab 07/06/24 07/12/24 Rx Allergies Allergy/AdvReac Type Severity Reaction Status Date / Time zolpidem [From Ambien] Allergy Hallucinati Verified 07/12/24 14:25 ons atorvastatin [From Lipitor] AdvReac jt and Verified 07/12/24 14:25 muscle pain baclofen AdvReac caused a Verified 07/12/24 14:25 fall Physical Exam Osteopathic Statement: *. No significant issues noted on an osteopathic structural exam other than those noted in the History and Physical/Consult. Vitals: Vital Signs Temp Pulse Pulse Resp BP Pulse Ox 07/12/24 09:40 67 07/12/24 09:31 97.9 F 67 16 124/56 97 Intake and Output 07/11/24 07/12/24 07/12/24 22:59 06:59 14:59 Other: Weight 93.894 kg Results CBC & Chem 7: 07/12/24 09:39 07/12/24 09:39 Labs: Abnormal Lab Results - Last 24 Hours (Table) 07/12/24 07/12/24 07/12/24 Range/Units 09:26 09:39 09:39 RBC 3.70 L (4.30-5.90) m/uL Hgb 11.9 L (13.0-17.5) gm/dL Hct 35.3 L (39.0-53.0) % Chloride 96 L (98-107) mmol/L Carbon Dioxide 33 H (22-30) mmol/L BUN 35 H (9-20) mg/dL Creatinine 3.88 H (0.66-1.25) mg/dL Glucose 122 H (74-99) mg/dL POC Glucose (mg/dL) 116 H (70-110) mg/dL
[2024-07-12 16:33] LABS: Glucose,Whole Blood 143 mg/dL (70-110)
[2024-07-12] MEDS: NITROGLYCERIN SL TABS 0.4 MG TAB SUBLINGUAL PRN (18:51)
[2024-07-12] MEDS: NITROGLYCERIN OINT 1 INCH/GM PACKET TOPICAL SCH (19:00)
[2024-07-12] MEDS ORDERED: GLUCAGON 1 MG/ML VIAL IM PRN (19:32)
[2024-07-12] MEDS ORDERED: ALBUTEROL NEBULIZED 2.5 MG/3 ML INHALATION PRN (19:32)
[2024-07-12] MEDS: HYDROmorphone 0.5 MG/0.5 ML SYRINGE IVP PRN (20:20)
[2024-07-12] MEDS: METOPROLOL TARTRATE 25 MG TAB PO SCH (20:21)
[2024-07-12] MEDS: RANOLAZINE 500 MG TAB.ER.12H PO SCH (20:21)
[2024-07-12] MEDS: ALPRAZolam 0.5 MG TAB PO PRN (20:21)
[2024-07-12] MEDS: SACUBITRIL/VALSARTAN 24 MG-26 MG TABLET PO SCH (20:21)
[2024-07-12] MEDS: HEPARIN SODIUM,PORCINE 5,000 UNIT/ML 1 ML VIAL SQ SCH (20:21)
[2024-07-12] MEDS: TAMSULOSIN 0.4 MG CAP.ER.24H PO SCH (20:21)
[2024-07-12] MEDS: TOPIRAMATE 25 MG TAB PO SCH (20:21)
[2024-07-12] MEDS: NON FORMULARY DRUG (Rosuvastatin 20 MG Tablet) PO SCH (20:52)
[2024-07-12 22:12] LABS: Glucose,Whole Blood 235 mg/dL (70-110)
[2024-07-12] MEDS: Insulin Aspart (For Pump) 100 UNIT/ML VIAL SQ-PUMP SCH (23:36)
[2024-07-13 01:17] VITALS: TEMP 97.7
[2024-07-13 02:58] LABS: Glucose,Whole Blood 91 mg/dL (70-110)
[2024-07-13] MEDS: NITROGLYCERIN OINT 1 INCH/GM PACKET TOPICAL SCH (04:28)
[2024-07-13 05:03] LABS: Glucose,Whole Blood 68 mg/dL (70-110)
[2024-07-13] MEDS: DEXTROSE 50% SYRINGE 50 ML IVP STA (05:11)
[2024-07-13 05:29] LABS: Glucose,Whole Blood 116 mg/dL (70-110)
[2024-07-13] MEDS: PRAMIPEXOLE 0.5 MG TAB PO PRN (06:32)
[2024-07-13 07:22] VITALS: BP 101/53; PULSE 78; RESP 17
[2024-07-13 07:59] LABS: Glucose,Whole Blood 114 mg/dL (70-110)
--- NOTE | 2024-07-13 08:15 | P.CRDCN ---
History of Present Illness Consult date: 07/13/24 Consult reason: chest pain History of present illness: This is a 73-year-old male patient of Dr. Castle with past medical history of hypertension, hyperlipidemia, coronary artery disease previous CABG and subsequent stenting, end-stage renal disease on dialysis, diabetes. We have been asked to evaluate the patient for chest pain. Patient states that yesterday morning he started having chest pain in the upper chest mid chest area that was sharp. He took nitroglycerin and it did not help and then he took a second 1. The pain came and went throughout the day and when he was at dialysis about an hour and a half into the treatment he began feeling fuzzy like he was going to pass out. Today, patient is feeling much better. No chest pain. No dizziness. Blood pressures 101/53, heart rate 78, pulse ox 96% on room air. -EKG: Sinus rhythm with first-degree block, right bundle branch block -Chest x-ray: -Laboratory studies: Troponin negative x 3. Hemoglobin 11.9. Potassium 4, BUN 35 creatinine 3.58. Magnesium 2.1 -Home cardiac medications: Aspirin 81 mg daily, Plavix 75 mg daily, Zetia 10 mg daily, Imdur 30 mg daily, metoprolol tartrate 25 mg twice daily, Nitrostat as needed, Ranexa 1000 mg twice daily, Crestor 10 mg at bedtime, Entresto 24-26 mg twice daily, Demadex 40 mg on Tuesday and Tuesday -KAREEM performed 07/06/2024 revealed aortic valve is tricuspid with moderate aortic stenosis with aortic valve area 1.1 cm by planimetry, mitral valve normal with mild to moderate regurgitation, tricuspid appears to be normal, intra atrial septum intact with no evidence of PFO, left atrial appendage is ligated and free of clot. LVEF 45%. Most recent echocardiogram obtained in June 2024 revealed ejection fraction 40 to 45%, mild to moderate mitral regurgitation, moderate aortic stenosis -Patient underwent two-vessel CABG on October 17, 2023 (LAD and ramus intermedius) -Cardiac catheterization history: June 2024 revealing patent left main stent, 50% proximal LAD, 80% mid LAD, 20 to 30% ramus, 100% circumflex and 30% RCA stenosis. Patent TIAN to LAD, known SVG to ramus occluded, elevated left-sided filling pressures, and mild to moderate aortic stenosis. CAD appeared unchanged. Medical management was recommended. Review Of Systems: At the time of my exam: CONSTITUTIONAL: Denies fever or chills. HEENT: Denies blurred vision, vision changes, or eye pain. Denies hemoptysis CARDIOVASCULAR: Denies chest pain. Denies orthopnea. Denies PND. Denies palpitations RESPIRATORY: Denies shortness of breath. GASTROINTESTINAL: Denies abdominal pain. Denies nausea or vomiting. HEMATOLOGIC: Denies bleeding disorders. GENITOURINARY: Denies any blood in urine. SKIN: Denies puritis. Denies rash. Physical examination: Gen: This is a 73-year-old male in no acute distress VS: reviewed HEENT: Head is atraumatic, normocephalic. Pupils equal, round. Sclerae is anicteric. NECK: Supple. No JVD. LUNGS: Clear to auscultation. No wheezes or rhonchi. No intercostal retractions. HEART: Regular rate and rhythm. ABDOMEN: Soft No tenderness. EXTREMITIES: No pedal edema. No calf tenderness. NEUROLOGICAL: Patient is awake, alert and oriented x3. Assessment: Atypical chest pain, acute coronary syndrome ruled out Nitroglycerin related hypotension Known coronary artery disease with previous CABG and stenting Hypertension Hyperlipidemia Nonischemic cardiomyopathy, end-stage renal disease on HD Plan: Resume patient's home cardiac medications Increase Imdur to twice daily but do not take on dialysis days Patient has been instructed in detail to only take nitroglycerin when it seems to be a cardiac related chest pain. If chest pain is coming and going and sharp nature do not take nitroglycerin as he will have a drop in his blood pressure specially with dialysis. Patient is to get up and ambulate eat breakfast and if feeling well, cleared for discharge later today. Patient will follow-up in the office with Dr. Castle in 1 to 2 weeks. Thank you kindly for this consultation. Nurse practitioner note has been reviewed, I agree with documented findings and plan of care. Patient was seen and examined. Past Medical History Past Medical History: Blood Disorder, Coronary Artery Disease (CAD), Chest Pain / Angina, Heart Failure, COPD, Diabetes Mellitus, Dialysis, Hearing Disorder / Deafness, Hyperlipidemia, Hypertension, Myocardial Infarction ([place]), Osteoarthritis (OA), Renal Disease, Sleep Apnea/CPAP/BIPAP Additional Past Medical History / Comment(s): has insulin pump and contiunuous blood glucose monitor,fell at home on Tuesday10-10-23"got dizzy"-no injury,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. Chronic renal failure, dialysis [facility] normally. Patient has insulin pump. Has CPAP, occasionally uses. Neuropathy in feet and hands. Poor hearing. Last Myocardial Infarction Date:: History of Any Multi-Drug Resistant Organisms: None Reported Past Surgical History: Cholecystectomy, Coronary Bypass/CABG, Heart Catheterization, Heart Catheterization With Stent, Orthopedic Surgery Additional Past Surgical History / Comment(s): Shoulder surgery-no hardware, hemorrhoidectomy, eye surgery,4 cardiac stents,AV fistula left forearm, double vessle CABG 10/17/23 Past Anesthesia/Blood Transfusion Reactions: No Reported Reaction Additional Past Anesthesia/Blood Transfusion Reaction / Comment(s): Never had a blood transfusion. Date of Last Stent Placement:: 2004,2014,2023 Past Psychological History: Anxiety Additional Psychological History / Comment(s): Shopping and crowds bother patient. Smoking Status: Former smoker Past Alcohol Use History: None Reported Additional Past Alcohol Use History / Comment(s): Quit smoking in 1980. Past Drug Use History: None Reported - Past Family History Father Family Medical History: Cancer Additional Family Medical History / Comment(s): Bladder cancer. Mother Family Medical History: Cancer, Diabetes Mellitus Additional Family Medical History / Comment(s): Pancreatic cancer. Medications and Allergies Home Medications Medication Instructions Recorded Confirmed Type Ezetimibe [Zetia] 10 mg PO DAILY 05/19/16 07/12/24 History Ferrous Sulfate [Iron (65 MG 325 mg PO DAILY 05/19/16 07/12/24 History Elemental)] Insulin Aspart (For Pump) [NovoLOG 0.01 unit SQ-PUMP CONTINUOUS 05/28/18 07/12/24 History (For Pump)] Pramipexole [Mirapex] 0.5 mg PO BID PRN 05/02/19 07/12/24 History Albuterol Inhaler [Ventolin Hfa 2 puff INHALATION RT-Q4H PRN 08/10/21 07/12/24 History Inhaler] Aspirin EC [Ecotrin Low Dose] 81 mg PO DAILY 02/21/22 07/12/24 History Glucagon Emergency Kit 1 mg IM ONCE PRN 02/21/22 07/12/24 History Escitalopram [Lexapro] 10 mg PO DAILY 01/01/23 07/12/24 History ALPRAZolam [Xanax] 0.5 mg PO HS PRN 06/17/23 07/12/24 History Cholecalciferol [Vitamin D3 (25 50 mcg PO DAILY 06/17/23 07/12/24 History Mcg = 1000 Iu)] Tamsulosin [Flomax] 0.4 mg PO HS 06/17/23 07/12/24 History Cetirizine HCl [Zyrtec] 10 mg PO DAILY 09/22/23 07/12/24 History Folic Acid/Vit B Complex and C 0.8 mg PO DAILY 09/22/23 07/12/24 History [Nephro-Pooja Tablet] Torsemide [Demadex] 40 mg PO SUMOWEFR 09/22/23 07/12/24 History Clopidogrel [Plavix] 75 mg PO DAILY #30 tab 10/24/23 07/12/24 Rx Rosuvastatin [Crestor] 10 mg PO HS 06/07/24 07/12/24 History Topiramate [Topamax] 25 mg PO BID 06/07/24 07/12/24 History Metoprolol Tartrate [Lopressor] 25 mg PO BID 30 Days #60 tab 06/10/24 07/12/24 Rx Sacubitril/Valsartan [Entresto 24 1 tab PO BID 06/19/24 07/12/24 History mg-26 mg Tablet] Isosorbide Mononitrate ER [Imdur] 30 mg PO DAILY 07/04/24 07/12/24 History Nitroglycerin Sl Tabs [Nitrostat] 0.4 mg SL Q5M PRN 07/04/24 07/12/24 History Midodrine [ProAmatine] 10 mg PO AC-TID 30 Days #90 tab 07/06/24 07/12/24 Rx Ranolazine [Ranexa] 1,000 mg PO BID 30 Days #120 tab 07/06/24 07/12/24 Rx Allergies Allergy/AdvReac Type Severity Reaction Status Date / Time zolpidem [From Ambien] Allergy Hallucinati Verified 07/12/24 14:25 ons atorvastatin [From Lipitor] AdvReac jt and Verified 07/12/24 14:25 muscle pain baclofen AdvReac caused a Verified 07/12/24 14:25 fall Physical Exam Vitals: Vital Signs Temp Pulse Pulse Resp BP BP Pulse Ox 07/13/24 01:16 97.7 F 85 18 94/49 96 07/12/24 23:17 72 16 100/47 94 L 07/12/24 19:58 88 20 132/61 98 07/12/24 19:03 75 20 123/57 100 07/12/24 18:52 89 24 122/60 96 07/12/24 14:02 63 18 115/62 98 07/12/24 09:40 67 07/12/24 09:31 97.9 F 67 16 124/56 97 Intake and Output 07/12/24 07/13/24 07/13/24 22:59 06:59 14:59 Intake Total 0 Balance 0 Intake: Oral 0 Other: Voiding Method Toilet # Voids 2 Weight 93.894 kg Results 07/12/24 09:39 07/12/24 09:39 Cardiac Enzymes 07/12/24 07/12/24 07/12/24 Range/Units 09:39 09:39 14:07 AST 39 (17-59) U/L Troponin I 0.019 0.021 (0.000-0.034) ng/mL 07/12/24 Range/Units 17:04 AST (17-59) U/L Troponin I 0.020 (0.000-0.034) ng/mL Coagulation 07/12/24 Range/Units 11:09 PT 10.7 (10.0-12.5) sec APTT 24.5 (22.0-30.0) sec CBC 07/12/24 Range/Units 09:39 WBC 5.3 (3.8-10.6) k/uL RBC 3.70 L (4.30-5.90) m/uL Hgb 11.9 L (13.0-17.5) gm/dL Hct 35.3 L (39.0-53.0) % Plt Count 157 (150-450) k/uL Comprehensive Metabolic Panel 07/12/24 Range/Units 09:39 Sodium 138 (137-145) mmol/L Potassium 4.4 (3.5-5.1) mmol/L Chloride 96 L (98-107) mmol/L Carbon Dioxide 33 H (22-30) mmol/L BUN 35 H (9-20) mg/dL Creatinine 3.88 H (0.66-1.25) mg/dL Glucose 122 H (74-99) mg/dL Calcium 8.6 (8.4-10.2) mg/dL AST 39 (17-59) U/L ALT 19 (4-49) U/L Alkaline Phosphatase 93 (38-126) U/L Total Protein 8.0 (6.3-8.2) g/dL Albumin 4.5 (3.5-5.0) g/dL Current Medications Generic Name Dose Route Start Last Admin Trade Name Freq PRN Reason Stop Dose Admin Acetaminophen 650 mg 07/12/24 12:34 Acetaminophen Tab 325 Mg Tab PO Q6HR PRN Mild Pain or Fever > 100.5 Albuterol Sulfate 2.5 mg 07/12/24 19:32 Albuterol Nebulized 2.5 Mg/3 Ml INHALATION RT-Q4H PRN Shortness Of Breath Alprazolam 0.5 mg 07/12/24 19:32 07/12/24 20:21 Alprazolam 0.5 Mg Tab PO 0.5 mg HS PRN Administration Severe Anxiety Aspirin 81 mg 07/13/24 09:00 Aspirin 81 Mg PO DAILY ON LICENSE OF [facility] Cholecalciferol 50 mcg 07/13/24 09:00 Cholecalciferol 25 Mcg (1000 Iu) Tablet PO DAILY ON LICENSE OF [facility] Clopidogrel Bisulfate 75 mg 07/13/24 09:00 Clopidogrel 75 Mg Tab PO DAILY ON LICENSE OF [facility] Ezetimibe 10 mg 07/13/24 09:00 Ezetimibe 10 Mg Tab PO DAILY ON LICENSE OF [facility] Escitalopram Oxalate 10 mg 07/13/24 09:00 Escitalopram 10 Mg Tab PO DAILY ON LICENSE OF [facility] Ferrous Sulfate 325 mg 07/13/24 09:00 Ferrous Sulfate 325 Mg Tab PO DAILY ON LICENSE OF [facility] Glucagon 1 mg 07/12/24 19:32 Glucagon 1 Mg/Ml Vial IM 07/22/24 19:31 ONCE PRN Hypoglycemia Heparin Sodium (Porcine) 5,000 unit 07/12/24 21:00 07/12/24 20:21 Heparin Sodium,Porcine 5,000 Unit/Ml 1 Ml Vial SQ 5,000 unit Q12HR JOEY Administration Hydromorphone HCl 0.5 mg 07/12/24 20:09 07/12/24 20:20 Hydromorphone 0.5 Mg/0.5 Ml Syringe IVP 0.5 mg Q6HR PRN Administration Moderate to Severe Pain (4-10) Insulin Aspart 0.01 unit 07/12/24 19:45 07/12/24 23:36 Insulin Aspart (For Pump) 100 Unit/Ml Vial SQ-PUMP Not Given CONTINUOUS JOEY Isosorbide Mononitrate 30 mg 07/13/24 09:00 Isosorbide Mononitrate Er 30 Mg Tab.Er.24h PO DAILY ON LICENSE OF [facility] Loratadine 10 mg 07/13/24 09:00 Loratadine 10 Mg Tab PO DAILY ON LICENSE OF [facility] Metoprolol Tartrate 25 mg 07/12/24 21:00 07/12/24 20:21 Metoprolol Tartrate 25 Mg Tab PO 25 mg BID JOEY Administration Naloxone HCl 0.2 mg 07/12/24 12:34 Naloxone 0.4 Mg/Ml 1 Ml Vial IV Q2M PRN Opioid Reversal Nitroglycerin 0.4 mg 07/12/24 18:50 07/12/24 19:57 Nitroglycerin Sl Tabs 0.4 Mg Tab SUBLINGUAL 0.4 mg Q5M PRN Administration Chest Pain Nitroglycerin 1 inch 07/13/24 03:00 07/13/24 04:28 Nitroglycerin Oint 1 Inch/Gm Packet TOPICAL Not Given Q8H ON LICENSE OF [facility] Non-Formulary Medication 10 mg 07/12/24 21:00 07/12/24 20:52 Rosuvastatin PO Not Given HS ON LICENSE OF [facility] Pramipexole Dihydrochloride 0.5 mg 07/12/24 19:32 07/13/24 06:32 Pramipexole 0.5 Mg Tab PO 0.5 mg BID PRN Administration Restless legs Ranolazine 1,000 mg 07/12/24 21:00 07/12/24 20:21 Ranolazine 500 Mg Tab.Er.12h PO 1,000 mg BID ON LICENSE OF [facility] Administration Sacubitril/Valsartan 1 each 07/12/24 21:00 07/12/24 20:21 Sacubitril/Valsartan 24 Mg-26 Mg Tablet PO 1 each BID JOEY Administration Tamsulosin HCl 0.4 mg 07/12/24 21:00 07/12/24 20:21 Tamsulosin 0.4 Mg Cap.Er.24h PO 0.4 mg HS ON LICENSE OF [facility] Administration Topiramate 25 mg 07/12/24 21:00 07/12/24 20:21 Topiramate 25 Mg Tab PO 25 mg BID JOEY Administration Intake and Output 07/12/24 07/13/24 07/13/24 22:59 06:59 14:59 Intake Total 0 Balance 0 Intake: Oral 0 Other: Voiding Method Toilet # Voids 2 Weight 93.894 kg 07/12/24 09:39 07/12/24 09:39
[2024-07-13] MEDS ORDERED: ISOSORBIDE MONONITRATE ER 30 MG TAB.ER.24H PO SCH (09:00)
[2024-07-13] MEDS: ESCITALOPRAM 10 MG TAB PO SCH (09:13)
[2024-07-13] MEDS: FERROUS SULFATE 325 MG TAB PO SCH (09:13)
[2024-07-13] MEDS: ISOSORBIDE MONONITRATE ER 30 MG TAB.ER.24H PO SCH (09:13)
[2024-07-13] MEDS: EZETIMIBE 10 MG TAB PO SCH (09:13)
[2024-07-13] MEDS: CLOPIDOGREL 75 MG TAB PO SCH (09:13)
[2024-07-13] MEDS: ASPIRIN 81 MG PO SCH (09:13)
[2024-07-13] MEDS: CHOLECALCIFEROL 25 MCG (1000 IU) TABLET PO SCH (09:13)
[2024-07-13] MEDS: LORATADINE 10 MG TAB PO SCH (09:13)
--- NOTE | 2024-07-13 10:03 | P.DS ---
Providers Date of admission: 07/12/24 12:37 Expected date of discharge: 07/13/24 Attending physician: Manolo Pang MD Consults: 07/12/24 12:34 Consult Physician Routine Consulting Provider: Donnell Radford Consult Reason/Comments: CP Do you want consulting provider notified?: Yes Consult Physician Routine Consulting Provider: Saritha Cadena Consult Reason/Comments: ESRD Do you want consulting provider notified?: Yes [facility] Course: Hospital Course: Patient is a 73-year-old male with a past medical history significant for HFrEF, coronary artery disease with extensive cardiac history including CABG x 2 and cardiac catheterization with multiple stents, ESRD on hemodialysis (TThSa), hypertension, COPD, hyperlipidemia, insulin-dependent diabetes mellitus, and obstructive sleep apnea presented to the emergency department with a chief complaint of chest pain. He states that his chest pain started this morning around 5 AM, he took 1 nitroglycerin tablet that did not help about 10 minutes later he took another 1 that did seem to resolve his chest pain. Shortly after that he got into his car to go to dialysis when his chest pain resume and he took another nitroglycerin tablet which did resolve that chest pain. About 1.5 hours into dialysis the chest pain started again an ambulance was called. While in the ambulance he received another nitroglycerin tablet and 3 aspirin which resolved his chest pain. He he states that the chest pain is middle to the left sternal chest pain that he gets almost daily, he usually the chest pain starts when he exerts himself but sometimes it occurs at rest. He rates the episodes of chest pain today as 56/10 and sharp. The episode at dialysis was associated with lightheadedness, heaviness in the face, and numbness of the right arm. All of the symptoms have resolved at this time. Currently denies fever, chills, nausea, vomiting, abdominal pain. Initial workup included: EKG independently interpreted as sinus rhythm with first-degree AV block, chest x-ray showed: No acute pulmonary process, labs showed: WBCs 5.3, hemoglobin 11.9, hematocrit 35.3, platelets 157, PT 10.7, INR 1.0, APTT 24.5, sodium 138, potassium 4.4, chloride 96, CO2 33, BUN 35, creatinine 3.80, glucose 122, troponin X1 0.019, vitals on admission: T 97.9 F, MD 67 bpm, RR 16, BP 124/56, O2 sat of 97% on room air. Cardiology was consulted. Chest pain has resolved at this time. Chest pain mostly resolved with pain medications. Changes made to his blood pressure medication. Was also seen by nephrology. Next dialysis session will be tomorrow. 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 Patient is medically stable for discharge. Final Diagnosis: #. Non-cardiac chest pain. Resolved. Likely costochondritis #. HFrEF, not in acute exacerbation. #. ESRD. #. Hypertension. #. Insulin dependent diabetes mellitus. #. COPD, not in acute exacerbation. #. History of CABG x 2 and multiple stents. #. Hyperlipidemia. #. BPH. Physical examination: Vital signs reviewed General: Nontoxic, no distress, appears stated age, well-appearing Derm: Warm, dry, intact Head: Atraumatic, normocephalic, symmetric Eyes: EOMI, anicteric sclera Mouth: No lip lesion, mucus membranes moist Cardiovascular: S1-S2 regular, systolic murmur present Lungs: CTA bilateral, no rhonchi, no rales, no accessory muscle use Abdominal: Soft, non-tender to palpation Extremities: No cyanosis, clubbing, or pedal edema. Neuro: Alert, oriented x 3, gross neurological examination did not reveal any focal deficits. Cranial nerves II to XII grossly intact. Psych: Appropriate affect and mood A total of 36 minutes of time were spent preparing this complex discharge summary. Patient was discharged on 07/13/2024 at 945. I have seen and evaluated the patient today. Discussed with the resident and agree with the residents finding and plan as documented in the resident's note. Changes highlighted in blue font. Patient Condition at Discharge: Stable Plan - Discharge Summary Discharge Rx Participant: No New Discharge Prescriptions: New Isosorbide Mononitrate ER [Imdur] 30 mg PO BID #60 tab Continue Ezetimibe [Zetia] 10 mg PO DAILY Ferrous Sulfate [Iron (65 MG Elemental)] 325 mg PO DAILY Insulin Aspart (For Pump) [NovoLOG (For Pump)] 0.01 unit SQ-PUMP CONTINUOUS Pramipexole [Mirapex] 0.5 mg PO BID PRN PRN Reason: Restless legs Albuterol Inhaler [Ventolin Hfa Inhaler] 2 puff INHALATION RT-Q4H PRN PRN Reason: Shortness Of Breath Glucagon Emergency Kit 1 mg IM ONCE PRN PRN Reason: Hypoglycemia Escitalopram [Lexapro] 10 mg PO DAILY Cetirizine HCl [Zyrtec] 10 mg PO DAILY Rosuvastatin [Crestor] 10 mg PO HS Metoprolol Tartrate [Lopressor] 25 mg PO BID 30 Days #60 tab Nitroglycerin Sl Tabs [Nitrostat] 0.4 mg SL Q5M PRN PRN Reason: Chest Pain Midodrine [ProAmatine] 10 mg PO AC-TID 30 Days #90 tab Ranolazine [Ranexa] 1,000 mg PO BID 30 Days #120 tab Aspirin EC [Ecotrin Low Dose] 81 mg PO DAILY Tamsulosin [Flomax] 0.4 mg PO HS ALPRAZolam [Xanax] 0.5 mg PO HS PRN PRN Reason: Severe Anxiety Cholecalciferol [Vitamin D3 (25 Mcg = 1000 Iu)] 50 mcg PO DAILY Folic Acid/Vit B Complex and C [Nephro-Pooja Tablet] 0.8 mg PO DAILY Torsemide [Demadex] 40 mg PO SUMOWEFR Clopidogrel [Plavix] 75 mg PO DAILY #30 tab Topiramate [Topamax] 25 mg PO BID Sacubitril/Valsartan [Entresto 24 mg-26 mg Tablet] 1 tab PO BID Discontinued Isosorbide Mononitrate ER [Imdur] 30 mg PO DAILY Discharge Medication List Ezetimibe [Zetia] 10 mg PO DAILY 05/19/16 [History] Ferrous Sulfate [Iron (65 MG Elemental)] 325 mg PO DAILY 05/19/16 [History] Insulin Aspart (For Pump) [NovoLOG (For Pump)] 0.01 unit SQ-PUMP CONTINUOUS 05/28/18 [History] Pramipexole [Mirapex] 0.5 mg PO BID PRN 05/02/19 [History] Albuterol Inhaler [Ventolin Hfa Inhaler] 2 puff INHALATION RT-Q4H PRN 08/10/21 [History] Aspirin EC [Ecotrin Low Dose] 81 mg PO DAILY 02/21/22 [History] Glucagon Emergency Kit 1 mg IM ONCE PRN 02/21/22 [History] Escitalopram [Lexapro] 10 mg PO DAILY 01/01/23 [History] ALPRAZolam [Xanax] 0.5 mg PO HS PRN 06/17/23 [History] Cholecalciferol [Vitamin D3 (25 Mcg = 1000 Iu)] 50 mcg PO DAILY 06/17/23 [History] Tamsulosin [Flomax] 0.4 mg PO HS 06/17/23 [History] Cetirizine HCl [Zyrtec] 10 mg PO DAILY 09/22/23 [History] Folic Acid/Vit B Complex and C [Nephro-Pooja Tablet] 0.8 mg PO DAILY 09/22/23 [History] Torsemide [Demadex] 40 mg PO SUMOWEFR 09/22/23 [History] Clopidogrel [Plavix] 75 mg PO DAILY #30 tab 10/24/23 [Rx] Rosuvastatin [Crestor] 10 mg PO HS 06/07/24 [History] Topiramate [Topamax] 25 mg PO BID 06/07/24 [History] Metoprolol Tartrate [Lopressor] 25 mg PO BID 30 Days #60 tab 06/10/24 [Rx] Sacubitril/Valsartan [Entresto 24 mg-26 mg Tablet] 1 tab PO BID 06/19/24 [History] Nitroglycerin Sl Tabs [Nitrostat] 0.4 mg SL Q5M PRN 07/04/24 [History] Midodrine [ProAmatine] 10 mg PO AC-TID 30 Days #90 tab 07/06/24 [Rx] Ranolazine [Ranexa] 1,000 mg PO BID 30 Days #120 tab 07/06/24 [Rx] Isosorbide Mononitrate ER [Imdur] 30 mg PO BID #60 tab 07/13/24 [Rx] Follow up Appointment(s)/Referral(s): Shiraz Castle DO [STAFF PHYSICIAN] - 07/27/24 7:30 am Marlon Valentino DO [Primary Care Provider] - 1-2 days Patient Instructions/Handouts: Noncardiac Chest Pain (DC) Activity/Diet/Wound Care/Special Instructions: Please see your PCP and plant physiology teacher. Discharge Disposition: HOME SELF-CARE
--- NOTE | 2024-07-13 20:04 | P.NPCON ---
History of Present Illness - Reason for Consult end stage renal disease - History of Present Illness Patient is a 73-year-old male with history of end-stage renal disease maintained on hemodialysis on a Tuesday schedule. Patient is admitted to the hospital with complaints of chest pain. He does have a history of coronary artery disease. Troponins were negative and chest pain has now improved. Patient's is present at bedside and she states that he has been feeling weak and has been unsteady at home. He had been maintained on midodrine which he is currently not taking. Patient has been noncompliant with fluid restrictions. When discussed with nursing staff at the dialysis unit it appears that patient has had gains of 5 to 7 kg over the weekend. No complaints of fever chills nausea vomiting or diarrhea Past Medical History Past Medical History: Blood Disorder, Coronary Artery Disease (CAD), Chest Pain / Angina, Heart Failure, COPD, Diabetes Mellitus, Dialysis, Hearing Disorder / Deafness, Hyperlipidemia, Hypertension, Myocardial Infarction (GA), Osteoarthritis (OA), Renal Disease, Sleep Apnea/CPAP/BIPAP Additional Past Medical History / Comment(s): has insulin pump and contiunuous blood glucose monitor,fell at home on Tuesday10-10-23"got dizzy"-no injury,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. Chronic renal failure, dialysis [facility] normally. Patient has insulin pump. Has CPAP, occasionally uses. Neuropathy in feet and hands. Poor hearing. Last Myocardial Infarction Date:: History of Any Multi-Drug Resistant Organisms: None Reported Past Surgical History: Cholecystectomy, Coronary Bypass/CABG, Heart Catheterization, Heart Catheterization With Stent, Orthopedic Surgery Additional Past Surgical History / Comment(s): Shoulder surgery-no hardware, hemorrhoidectomy, eye surgery,4 cardiac stents,AV fistula left forearm, double vessle CABG 10/17/23 Past Anesthesia/Blood Transfusion Reactions: No Reported Reaction Additional Past Anesthesia/Blood Transfusion Reaction / Comment(s): Never had a blood transfusion. Date of Last Stent Placement:: 2004,2014,2023 Past Psychological History: Anxiety Additional Psychological History / Comment(s): Shopping and crowds bother shaheen bhakta Smoking Status: Former smoker Past Alcohol Use History: None Reported Additional Past Alcohol Use History / Comment(s): Quit smoking in 1980. Past Drug Use History: None Reported - Past Family History Father Family Medical History: Cancer Additional Family Medical History / Comment(s): Bladder cancer. Mother Family Medical History: Cancer, Diabetes Mellitus Additional Family Medical History / Comment(s): Pancreatic cancer. Medications and Allergies Home Medications Medication Instructions Recorded Confirmed Type Ezetimibe [Zetia] 10 mg PO DAILY 05/19/16 07/12/24 History Ferrous Sulfate [Iron (65 MG 325 mg PO DAILY 05/19/16 07/12/24 History Elemental)] Insulin Aspart (For Pump) [NovoLOG 0.01 unit SQ-PUMP CONTINUOUS 05/28/18 07/12/24 History (For Pump)] Pramipexole [Mirapex] 0.5 mg PO BID PRN 05/02/19 07/12/24 History Albuterol Inhaler [Ventolin Hfa 2 puff INHALATION RT-Q4H PRN 08/10/21 07/12/24 History Inhaler] Aspirin EC [Ecotrin Low Dose] 81 mg PO DAILY 02/21/22 07/12/24 History Glucagon Emergency Kit 1 mg IM ONCE PRN 02/21/22 07/12/24 History Escitalopram [Lexapro] 10 mg PO DAILY 01/01/23 07/12/24 History ALPRAZolam [Xanax] 0.5 mg PO HS PRN 06/17/23 07/12/24 History Cholecalciferol [Vitamin D3 (25 50 mcg PO DAILY 06/17/23 07/12/24 History Mcg = 1000 Iu)] Tamsulosin [Flomax] 0.4 mg PO HS 06/17/23 07/12/24 History Cetirizine HCl [Zyrtec] 10 mg PO DAILY 09/22/23 07/12/24 History Folic Acid/Vit B Complex and C 0.8 mg PO DAILY 09/22/23 07/12/24 History [Nephro-Pooja Tablet] Torsemide [Demadex] 40 mg PO SUMOWEFR 09/22/23 07/12/24 History Clopidogrel [Plavix] 75 mg PO DAILY #30 tab 10/24/23 07/12/24 Rx Rosuvastatin [Crestor] 10 mg PO HS 06/07/24 07/12/24 History Topiramate [Topamax] 25 mg PO BID 06/07/24 07/12/24 History Metoprolol Tartrate [Lopressor] 25 mg PO BID 30 Days #60 tab 06/10/24 07/12/24 Rx Sacubitril/Valsartan [Entresto 24 1 tab PO BID 06/19/24 07/12/24 History mg-26 mg Tablet] Nitroglycerin Sl Tabs [Nitrostat] 0.4 mg SL Q5M PRN 07/04/24 07/12/24 History Midodrine [ProAmatine] 10 mg PO AC-TID 30 Days #90 tab 07/06/24 07/12/24 Rx Ranolazine [Ranexa] 1,000 mg PO BID 30 Days #120 tab 07/06/24 07/12/24 Rx Isosorbide Mononitrate ER [Imdur] 30 mg PO BID #60 tab 07/13/24 Rx Allergies Allergy/AdvReac Type Severity Reaction Status Date / Time zolpidem [From Ambien] Allergy Hallucinati Verified 07/12/24 14:25 ons atorvastatin [From Lipitor] AdvReac jt and Verified 07/12/24 14:25 muscle pain baclofen AdvReac caused a Verified 07/12/24 14:25 fall Physical Exam Vitals: Vital Signs Temp Pulse Resp BP Pulse Ox 07/13/24 07:00 97.7 F 78 17 101/53 96 07/13/24 01:16 97.7 F 85 18 94/49 96 07/12/24 23:17 72 16 100/47 94 L 07/12/24 19:58 88 20 132/61 98 Intake and Output 07/13/24 07/13/24 07/13/24 06:59 14:59 22:59 Intake Total 0 118 Balance 0 118 Intake: Oral 0 118 Other: # Voids 2 Weight 93.894 kg Patient is awake, comfortable, no acute distress Examination of the heart S1 and S2 Examination of the lungs bilateral breath sounds are heard Abdomen is soft nontender Examination of lower extremities shows no significant edema HVAC ESTIMATOR exam grossly intact Results - Lab Results Most recent lab results Calcium 8.6 mg/dL (8.4-10.2) 07/12/24 09:39 Magnesium 2.1 mg/dL (1.6-2.3) 07/12/24 09:39 07/12/24 09:39 07/12/24 09:39 Assessment and Plan Assessment: 1. End-stage renal disease on hemodialysis on Tuesday schedule 2. Coronary artery disease with recent intervention and coronary stent placement 3. Chest pain atypical but multiple admissions for chest pain. Cardiac workup has been negative. 4. CKD mineral bone disorder 5. History of noncompliance with fluid restriction and excessive weight gains between treatments as outpatient. Plan: Patient can be discharged from nephrology standpoint. Discussed with regarding importance of compliance with fluid restriction as outpatient. Patient is also advised to monitor blood pressure at home and use midodrine if systolic blood pressure is less than 100. He continues to hold Entresto and Imdur prehemodialysis.
== END 2024-07-13 12:13 | disposition home or self-care (01) ==
LOC: EC 09:10 → 6NMEDSUR 12:37
PROVIDERS: ADMIT Internal Medicine; ATTEND Internal Medicine
DX: R07.89 Other chest pain (principal); I13.2 Hypertensive heart and chronic kidney disease with heart failure and with stage 5 chronic kidney disease, or end stage renal disease; N18.6 End stage renal disease; I50.22 Chronic systolic (congestive) heart failure; I95.2 Hypotension due to drugs; T46.3X5A Adverse effect of coronary vasodilators, initial encounter; E11.22 Type 2 diabetes mellitus with diabetic chronic kidney disease; I45.2 Bifascicular block; I44.0 Atrioventricular block, first degree; I25.10 Atherosclerotic heart disease of native coronary artery without angina pectoris; I08.0 Rheumatic disorders of both mitral and aortic valves; I42.8 Other cardiomyopathies; G47.33 Obstructive sleep apnea (adult) (pediatric); E78.5 Hyperlipidemia, unspecified; J44.9 Chronic obstructive pulmonary disease, unspecified; D64.9 Anemia, unspecified; N40.0 Benign prostatic hyperplasia without lower urinary tract symptoms; Z99.2 Dependence on renal dialysis; Z79.4 Long term (current) use of insulin; Z79.82 Long term (current) use of aspirin; Z79.899 Other long term (current) drug therapy; Z79.02 Long term (current) use of antithrombotics/antiplatelets; Z88.8 Allergy status to other drugs, medicaments and biological substances; Z95.1 Presence of aortocoronary bypass graft; Z95.5 Presence of coronary angioplasty implant and graft; Z96.41 Presence of insulin pump (external) (internal); Z87.891 Personal history of nicotine dependence
CPT/HCPCS: 96372 ×2; 96375; 96374; 99285; 36415; 80053; 83735; 84484; 85025; 85610; 85730; 71046; G0378 ×2; J1644 ×2; J1171

== ENCOUNTER 2024-07-14 10:38 | Inpatient (IN) | payer MEDICARE ==
--- NOTE | 2024-07-14 11:16 | ED ---
Chest Pain HPI - General Chief Complaint: Chest Pain Stated Complaint: Chest Pain Time Seen by Provider: 07/14/24 10:50 Source: patient, EMS Mode of arrival: EMS Limitations: no limitations - History of Present Illness Initial Comments: 73-year-old male with past medical history of coronary artery disease, COPD, end-stage renal disease on dialysis who presents to the emergency department reporting chest pain. Patient has been seen several times in the emergency department for the same complaint. Patient was just discharged yesterday. He went to dialysis today. They only completed 2.5 hours of his 4 hours treatment. The patient suddenly developed chest pain and was transferred to the hospital for further evaluation. He has been taking his home medications as directed without any improvement. Patient reports that it is a crushing pain over the left side of his chest. Patient has had significant workup including a heart catheterization within the past month. States that no adjustment to his medications have helped his chest pain. He was given 324 mg of aspirin by EMS and transferred to us in stable condition. He denies fevers, cough, numbness, tingling or weakness in his extremities. No other alleviating, precipitating modifying factors - Related Data Home Medications Medication Instructions Recorded Confirmed Ezetimibe [Zetia] 10 mg PO DAILY 05/19/16 07/12/24 Ferrous Sulfate [Iron (65 MG 325 mg PO DAILY 05/19/16 07/12/24 Elemental)] Insulin Aspart (For Pump) [NovoLOG 0.01 unit SQ-PUMP CONTINUOUS 05/28/18 07/12/24 (For Pump)] Pramipexole [Mirapex] 0.5 mg PO BID PRN 05/02/19 07/12/24 Albuterol Inhaler [Ventolin Hfa 2 puff INHALATION RT-Q4H PRN 08/10/21 07/12/24 Inhaler] Aspirin EC [Ecotrin Low Dose] 81 mg PO DAILY 02/21/22 07/12/24 Glucagon Emergency Kit 1 mg IM ONCE PRN 02/21/22 07/12/24 Escitalopram [Lexapro] 10 mg PO DAILY 01/01/23 07/12/24 ALPRAZolam [Xanax] 0.5 mg PO HS PRN 06/17/23 07/12/24 Cholecalciferol [Vitamin D3 (25 50 mcg PO DAILY 06/17/23 07/12/24 Mcg = 1000 Iu)] Tamsulosin [Flomax] 0.4 mg PO HS 06/17/23 07/12/24 Cetirizine HCl [Zyrtec] 10 mg PO DAILY 09/22/23 07/12/24 Folic Acid/Vit B Complex and C 0.8 mg PO DAILY 09/22/23 07/12/24 [Nephro-Pooja Tablet] Torsemide [Demadex] 40 mg PO SUMOWEFR 09/22/23 07/12/24 Rosuvastatin [Crestor] 10 mg PO HS 06/07/24 07/12/24 Topiramate [Topamax] 25 mg PO BID 06/07/24 07/12/24 Sacubitril/Valsartan [Entresto 24 1 tab PO BID 06/19/24 07/12/24 mg-26 mg Tablet] Nitroglycerin Sl Tabs [Nitrostat] 0.4 mg SL Q5M PRN 07/04/24 07/12/24 Previous Rx's Medication Instructions Recorded Clopidogrel [Plavix] 75 mg PO DAILY #30 tab 10/24/23 Metoprolol Tartrate [Lopressor] 25 mg PO BID 30 Days #60 tab 06/10/24 Midodrine [ProAmatine] 10 mg PO AC-TID 30 Days #90 tab 07/06/24 Ranolazine [Ranexa] 1,000 mg PO BID 30 Days #120 tab 07/06/24 Isosorbide Mononitrate ER [Imdur] 30 mg PO BID #60 tab 07/13/24 Allergies Allergy/AdvReac Type Severity Reaction Status Date / Time zolpidem [From Ambien] Allergy Hallucinati Verified 07/14/24 10:44 ons atorvastatin [From Lipitor] AdvReac jt and Verified 07/14/24 10:44 muscle pain baclofen AdvReac caused a Verified 07/14/24 10:44 fall Review of Systems ROS Statement: Those systems with pertinent positive or pertinent negative responses have been documented in the HPI. ROS Other: All systems not noted in ROS Statement are negative. Past Medical History Past Medical History: Blood Disorder, Coronary Artery Disease (CAD), Chest Pain / Angina, Heart Failure, COPD, Diabetes Mellitus, Dialysis, Hearing Disorder / Deafness, Hyperlipidemia, Hypertension, Myocardial Infarction ([place]), Osteoarthritis (OA), Renal Disease, Sleep Apnea/CPAP/BIPAP Additional Past Medical History / Comment(s): has insulin pump and contiunuous blood glucose monitor,fell at home on Tuesday10-10-23"got dizzy"-no injury,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. Chronic renal failure, dialysis [facility] normally. Patient has insulin pump. Has CPAP, occasionally uses. Neuropathy in feet and hands. Poor hearing. Last Myocardial Infarction Date:: History of Any Multi-Drug Resistant Organisms: None Reported Past Surgical History: Cholecystectomy, Coronary Bypass/CABG, Heart Catheterization, Heart Catheterization With Stent, Orthopedic Surgery Additional Past Surgical History / Comment(s): Shoulder surgery-no hardware, he morrhoidectomy, eye surgery,4 cardiac stents,AV fistula left forearm, double vessle CABG 10/17/23 Past Anesthesia/Blood Transfusion Reactions: No Reported Reaction Additional Past Anesthesia/Blood Transfusion Reaction / Comment(s): Never had a blood transfusion. Date of Last Stent Placement:: 2004,2014,2023 Past Psychological History: Anxiety Smoking Status: Former smoker Past Alcohol Use History: None Reported Past Drug Use History: None Reported - Past Family History Father Family Medical History: Cancer Additional Family Medical History / Comment(s): Bladder cancer. Mother Family Medical History: Cancer, Diabetes Mellitus Additional Family Medical History / Comment(s): Pancreatic cancer. General Exam Limitations: no limitations General appearance: alert, in distress Head exam: Present: atraumatic, normocephalic, normal inspection Eye exam: Present: normal appearance, PERRL, EOMI. Absent: scleral icterus, conjunctival injection, periorbital swelling ENT exam: Present: normal exam, mucous membranes moist Neck exam: Present: normal inspection. Absent: tenderness, meningismus, lymphadenopathy Respiratory exam: Present: normal lung sounds bilaterally. Absent: respiratory distress, wheezes, rales, rhonchi, stridor Cardiovascular Exam: Present: regular rate, normal rhythm, normal heart sounds. Absent: systolic murmur, diastolic murmur, rubs, gallop, clicks GI/Abdominal exam: Present: soft, normal bowel sounds. Absent: distended, tenderness, guarding, rebound, rigid Extremities exam: Present: normal inspection, full ROM, normal capillary refill. Absent: tenderness, pedal edema, joint swelling, calf tenderness Back exam: Present: normal inspection Neurological exam: Present: alert, oriented X3, CN II-XII intact Psychiatric exam: Present: normal affect, normal mood Skin exam: Present: warm, dry, intact, normal color. Absent: rash Course Vital Signs 07/14/24 07/14/24 07/14/24 10:41 11:43 12:32 Temperature 97.3 F L Pulse Rate 82 80 81 Respiratory 26 H 18 18 Rate Blood Pressure 130/63 121/60 107/61 O2 Sat by Pulse 100 98 96 Oximetry Chest Pain MDM - MDM Was pt. sent in by a medical professional or institution (, PA, POPULATION GENETICIST, urgent care, hospital, or assisted...) When possible be specific @ -Patient sent in from dialysis clinic Did you speak to anyone other than the patient for history (EMS, parent, family, police, friend...)? What history was obtained from this source @ -Spoke with EMS for history Did you review nursing and triage notes (agree or disagree)? Why? @ -I reviewed and agree with nursing and triage notes Were old charts reviewed (outside hosp., previous admission, EMS record, old EKG, old radiological studies, urgent care reports/EKG's, assisted records)? Report findings @ -I reviewed his discharge summary from yesterday Differential Diagnosis (chest pain, altered mental status, abdominal pain women, abdominal pain men, vaginal bleeding, weakness, fever, dyspnea, syncope, headache, dizziness, GI bleed, back pain, seizure, CVA, palpatations, mental health, musculoskeletal)? @ -Differential Chest Pain: Stable Angina, Unstable Angina, STEMI, NSTEMI Aortic Dissection, Pneumothorax, Musculoskeletal, Esophageal Spasm GERD, Cholecystitis, Pancreatitis, Zoster, this is not meant to be an all-inclusive list. EKG interpreted by me (3pts min.). @ -Yes and demonstrates A-fib with a rate of 80. QRS 181. QTc of 482. No acute ST segment elevations. Right bundle branch block with left anterior fascicular block X-rays interpreted by me (1pt min.). @ -Yes and demonstrates no acute process CT interpreted by me (1pt min.). @ -None done U/S interpreted by me (1pt. min.). @ -None done What testing was considered but not performed or refused? (CT, X-rays, U/S, labs)? Why? @ -None What meds were considered but not given or refused? Why? @ -None Did you discuss the management of the patient with other professionals (professionals i.e. , PA, POPULATION GENETICIST, lab, RT, psych nurse, social worker school, sql bi developer, teacher, public health service officer, manager case management)? Give summary @ -Spoke with Dr. Fung for admission Was smoking cessation discussed for >3mins.? @ -No Was critical care preformed (if so, how long)? @ -Yes, 35 minutes for management of NSTEMI Were there social determinants of health that impacted care today? How? (Homelessness, low income, unemployed, alcoholism, drug addiction, transportation, low edu. Level, literacy, decrease access to med. care, intermediate, rehab)? @ -No Was there de-escalation of care discussed even if they declined (Discuss DNR or withdrawal of care, Hospice)? DNR status @ -No What co-morbidities impacted this encounter? (DM, HTN, Smoking, COPD, CAD, Cancer, CVA, ARF, Chemo, Hep., AIDS, mental health diagnosis, sleep apnea, morbid obesity)? @ -End-stage renal disease on hemodialysis, coronary artery disease Was patient admitted / discharged? Hospital course, mention meds given and route, prescriptions, significant lab abnormalities, going to OR and other pertinent info. @ -Upon arrival patient seen and evaluated in bed 2. Thorough history and physical exam was performed. He is placed on continuous cardiac and pulse ox monitoring. Twelve-lead EKG is obtained. IV is established. Laboratory studies are conducted. Patient was given nitro with no improvement in his pain. He is on given a dose of Dilaudid with improvement. Chest x-ray was performed. Patient reevaluated resting more comfortably. Patient has markedly elevated troponin level today in comparison to previous testing. Because of this he was started on heparin. Recommended admission. Patient was agreeable to this. Spoke with Dr. Fung for the admission and cardiology will be placed on consult. Patient was agreeable to this plan and is awaiting a bed on the floor Undiagnosed new problem with uncertain prognosis? @ -Yes Drug Therapy requiring intensive monitoring for toxicity (Heparin, Nitro, Insulin, Cardizem)? @ -No Were any procedures done? @ -No Diagnosis/symptom? @ -Acute chest pain, NSTEMI, history of end-stage renal disease on hemodialysis Acute, or Chronic, or Acute on Chronic? @ -Acute Uncomplicated (without systemic symptoms) or Complicated (systemic symptoms)? @ -Complicated Side effects of treatment? @ -No Exacerbation, Progression, or Severe Exacerbation? @ -No Poses a threat to life or bodily function? How? (Chest pain, [place], [place], pneumonia, PE, COPD, DKA, ARF, appy, cholecystitis, CVA, Diverticulitis, Homicidal, Suicidal, threat to staff... and all critical care pts) @ -Yes as patient has markedly elevated troponin this visit Disposition Clinical Impression: Chest pain, NSTEMI (non-ST elevated myocardial infarction) Disposition: ADMITTED IP TO THIS [facility] Condition: Stable Is patient prescribed a controlled substance at d/c from ED?: No Referrals: Marlon Valentino DO [Primary Care Provider] - 1-2 days Time of Disposition: 13:16 Decision to Admit Reason: Admit from EC Decision Date: 07/14/24 Decision Time: 13:16
[2024-07-14 11:38] LABS: Partial Thromboplastin Time 27.5 sec (22.0-30.0); Prothrombin Time 10.8 sec (10.0-12.5)
[2024-07-14 11:41] LABS: Basophils % (A) 1 %; Eosinophils # (A) 0.1 k/uL (0-0.7); Eosinophils % (A) 2 %; HCT 31.8 % (39.0-53.0); HGB 10.8 gm/dL (13.0-17.5); Lymphocytes # (A) 1.4 k/uL (1.0-4.8); Lymphocytes % (A) 34 %; MCH 32.6 pg (25.0-35.0); MCHC 33.9 g/dL (31.0-37.0); MCV 96.4 fL (80.0-100.0); Mean Platelet Volume 8.3; Monocytes # (A) 0.4 k/uL (0-1.0); Monocytes % (A) 10 %; Neutrophils % (A) 48 %; Platelet Count 149 k/uL (150-450); RDW 13.2 % (11.5-15.5); WBC 4.2 k/uL (3.8-10.6)
[2024-07-14] MEDS: NITROGLYCERIN SL TABS 0.4 MG TAB SUBLINGUAL STA (11:41)
--- NOTE | 2024-07-14 11:44 | XR ---
EXAMINATION TYPE: XR chest 2V DATE OF EXAM: 07/14/2024 11:36 AM COMPARISON: Chest radiographs from 07/12/2024 CLINICAL INDICATION: Male, 73 years old with history of Chest Pain; TECHNIQUE: XR chest 2V Frontal and lateral views of the chest. FINDINGS: Lungs/Pleura: There is no evidence of pleural effusion, focal consolidation, or pneumothorax. Pulmonary vascularity: Unremarkable. Heart/mediastinum: Cardiomediastinal silhouette is enlarged and stable. Left atrial appendage occlusi on device is present. Musculoskeletal: No acute osseous pathology. Midline sternotomy wires are noted. IMPRESSION: e airspace opacities projecting over the spine not seen on prior. [facility], , 07/14/2024 11:42 AM
[2024-07-14 11:53] LABS: ALT 20 U/L (4-49); AST 26 U/L (17-59); African American GFR (CKD) 18 (>60 ml/min/1.73 sqM); Albumin 4.1 g/dL (3.5-5.0); Alkaline Phosphatase 123 U/L (38-126); Anion Gap 9 mmol/L; Blood Urea Nitrogen 30 mg/dL (9-20); Calcium 8.7 mg/dL (8.4-10.2); Carbon Dioxide 31 mmol/L (22-30); Chloride 97 mmol/L (98-107); Glucose 114 mg/dL (74-99); Lipase 138 U/L (23-300); Magnesium 2.1 mg/dL (1.6-2.3); Non-African American GFR(CKD) 15 (>60 ml/min/1.73 sqM); Potassium 3.7 mmol/L (3.5-5.1); Sodium 137 mmol/L (137-145); Total Bilirubin 0.7 mg/dL (0.2-1.3); Total Protein 7.1 g/dL (6.3-8.2)
[2024-07-14 12:34] LABS: NT-Pro-B-Type Natriuretic Pept 29700 pg/mL
[2024-07-14] MEDS: HYDROmorphone 1 MG/ML 1 ML SYRINGE IVP STA (12:41)
[2024-07-14] MEDS ORDERED: NALOXONE 0.4 MG/ML 1 ML VIAL IV PRN (13:17)
[2024-07-14] MEDS ORDERED: ALBUTEROL NEBULIZED 2.5 MG/3 ML INHALATION PRN (13:19)
[2024-07-14] MEDS: HEPARIN SOD,PORK IN 0.45% NACL 25,000 UNIT in 0.45% NACL 1 250ML.BAG IV SCH (13:51)
[2024-07-14] MEDS: HEPARIN SODIUM 1,000 UN/ML (10ML VL) IV ONE (13:52)
[2024-07-14] MEDS: Insulin Aspart (For Pump) 100 UNIT/ML VIAL SQ-PUMP SCH (13:53)
[2024-07-14] MEDS ORDERED: DEXTROSE 50% SYRINGE 50 ML IVP PRN ×2 (13:55)
--- NOTE | 2024-07-14 14:11 | P.HPIM ---
History of Present Illness H&P Date: 07/14/24 Patient is a 73-year-old male with a past medical history significant for HFrEF, coronary artery disease with extensive cardiac history including CABG x 2 and cardiac catheterization with multiple stents, ESRD on hemodialysis ([facility]), hypertension, COPD, hyperlipidemia, insulin-dependent diabetes mellitus, and obstructive sleep apnea presented to the emergency department with a chief complaint of chest pain. He was discharged from [facility] yesterday for the same symptoms. He states that his chest pain started about 2.5 hours into dialysis and an ambulance was called. He denies taking any nitroglycerin. He states that the chest pain is middle to the left sternal chest pain that he gets almost daily, he usually the chest pain starts when he exerts himself but sometimes it occurs at rest. He rates the episodes of chest pain as sharp in the middle/left chest. The episode at dialysis was associated with lightheadedness and heaviness in the face. All of the symptoms have resolved at this time. Currently denies fever, chills, nausea, vomiting, abdominal pain, dyspnea, diaphoresis. Initial chest x-ray: No evidence of pleural effusion, focal consolidation, or pneumothorax; cardiac mediastinal silhouette enlarged and stable; airspace opacities projecting over the spine not seen on prior. Initial labs: WBC 4.2, RBC 3.3, hemoglobin 10.8, hematocrit 31.8, platelets 149, sodium 137, potassium 3.7, chloride 97, CO2 31, BUN 30, creatinine 3.66, glucose 114, troponin X1 0.292, BNP 29,700. Initial vitals: T 97.3 F, SD 82 bpm, RR 26, BP 130/63, O2 sat of 100% on room air. ED documentation reviewed. Review of systems: Pertinent positives and negatives as discussed in HPI, a complete review of systems was performed and all other systems are negative. Social history: Tobacco: Former smoker Alcohol: None reported Recreational drugs: None reported Travel: No recent travel Sick contacts: None reported Physical examination: Vital signs reviewed General: Nontoxic, no distress, appears stated age, well-appearing Derm: Warm, dry, intact Head: Atraumatic, normocephalic, symmetric Eyes: EOMI, anicteric sclera Mouth: No lip lesion, mucus membranes moist Cardiovascular: S1-S2 regular, systolic murmur Lungs: CTA bilateral, no rhonchi, no rales, no accessory muscle use Abdominal: Soft, non-tender to palpation Extremities: No cyanosis, clubbing; 1+ pitting edema bilateral lower extremities Neuro: Alert, oriented x 3, gross neurological examination did not reveal any focal deficits. Cranial nerves II to XII grossly intact. Psych: Appropriate affect and mood Assessment and Plan: Patient is a 73-year-old male with a past medical history significant for HFrEF, coronary artery disease with extensive cardiac history including CABG x 2 and cardiac catheterization with multiple stents, ESRD on hemodialysis ([facility]), hypertension, COPD, hyperlipidemia, insulin-dependent diabetes mellitus, and obstructive sleep apnea presented to the emergency department with a chief complaint of chest pain. Active #. Acute NSTEMI -Unclear if type I or type II, could possibly be secondary to ESRD Heparin drip, monitor APTT, monitor for bleeding Serial troponin Monitor vital signs Continue telemetry monitoring Cardiology consulted -Continue aspirin 81 mg, Plavix 75 mg daily, rosuvastatin 10 mg nightly, ezetimibe 10 mg daily Chronic #. HFrEF, not in acute exacerbation Continue home medications #. ESRD Nephrology consulted for management of dialysis -Discussed management with nephrology #. Hypertension Monitor vital signs Continue home medications #. Insulin dependent diabetes mellitus Continue insulin pump Accu-Cheks ACHS, monitor for hypoglycemia #. COPD, not in acute exacerbation Continue nebulizer treatments every 4 hours as needed for wheezing/shortness of breath Oxygen needed maintain SpO2 >90% Continue home medications #. History of CABG x 2 and multiple stents Continue home medications #. Hyperlipidemia Continue home medications #. BPH Continue home medications F: None E: Replete if required N: NPO A: Ambulatory DVT prophylaxis: Heparin drip The patient is admitted as inpatient with an anticipated greater than 2 midnight stay for evaluation of chest pain. CODE STATUS: Full code Discussed with: Dr. Fung Anticipated discharge place: Home A total of 65 minutes was spent on the care of this complex patient more than 50% of the time was spent in counseling and care coordination. I have seen and evaluated the patient today. Discussed with the resident and agree with the residents finding and plan as documented in the resident's note. Changes highlighted in blue font. Past Medical History Past Medical History: Blood Disorder, Coronary Artery Disease (CAD), Chest Pain / Angina, Heart Failure, COPD, Diabetes Mellitus, Dialysis, Hearing Disorder / Deafness, Hyperlipidemia, Hypertension, Myocardial Infarction ([place]), Osteoarthritis ([place]), Renal Disease, Sleep Apnea/CPAP/BIPAP Additional Past Medical History / Comment(s): has insulin pump and contiunuous blood glucose monitor,fell at home on Tuesday10-10-23"got dizzy"-no injury,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. Chronic renal failure, dialysis [facility] normally. Patient has insulin pump. Has CPAP, occasionally uses. Neuropathy in feet and hands. Poor hearing. Last Myocardial Infarction Date:: History of Any Multi-Drug Resistant Organisms: None Reported Past Surgical History: Cholecystectomy, Coronary Bypass/CABG, Heart Catheterization, Heart Catheterization With Stent, Orthopedic Surgery Additional Past Surgical History / Comment(s): Shoulder surgery-no hardware, hemorrhoidectomy, eye surgery,4 cardiac stents,AV fistula left forearm, double vessle CABG 10/17/23 Past Anesthesia/Blood Transfusion Reactions: No Reported Reaction Additional Past Anesthesia/Blood Transfusion Reaction / Comment(s): Never had a blood transfusion. Date of Last Stent Placement:: 2004,2014,2023 Past Psychological History: Anxiety Smoking Status: Former smoker Past Alcohol Use History: None Reported Past Drug Use History: None Reported - Past Family History Father Family Medical History: Cancer Additional Family Medical History / Comment(s): Bladder cancer. Mother Family Medical History: Cancer, Diabetes Mellitus Additional Family Medical History / Comment(s): Pancreatic cancer. Medications and Allergies Home Medications Medication Instructions Recorded Confirmed Type Ezetimibe [Zetia] 10 mg PO DAILY 05/19/16 07/14/24 History Ferrous Sulfate [Iron (65 MG 325 mg PO DAILY 05/19/16 07/14/24 History Elemental)] Insulin Aspart (For Pump) [NovoLOG 0.01 unit SQ-PUMP CONTINUOUS 05/28/18 07/14/24 History (For Pump)] Pramipexole [Mirapex] 0.5 mg PO BID PRN 05/02/19 07/14/24 History Albuterol Inhaler [Ventolin Hfa 2 puff INHALATION RT-Q4H PRN 08/10/21 07/14/24 History Inhaler] Aspirin EC [Ecotrin Low Dose] 81 mg PO DAILY 02/21/22 07/14/24 History Glucagon Emergency Kit 1 mg IM ONCE PRN 02/21/22 07/14/24 History Escitalopram [Lexapro] 10 mg PO DAILY 01/01/23 07/14/24 History ALPRAZolam [Xanax] 0.5 mg PO HS PRN 06/17/23 07/14/24 History Cholecalciferol [Vitamin D3 (25 50 mcg PO DAILY 06/17/23 07/14/24 History Mcg = 1000 Iu)] Tamsulosin [Flomax] 0.4 mg PO HS 06/17/23 07/14/24 History Cetirizine HCl [Zyrtec] 10 mg PO DAILY 09/22/23 07/14/24 History Folic Acid/Vit B Complex and C 0.8 mg PO DAILY 09/22/23 07/14/24 History [Nephro-Pooja Tablet] Torsemide [Demadex] 40 mg PO SUMOWEFR 09/22/23 07/14/24 History Clopidogrel [Plavix] 75 mg PO DAILY #30 tab 10/24/23 07/14/24 Rx Rosuvastatin [Crestor] 10 mg PO HS 06/07/24 07/14/24 History Topiramate [Topamax] 25 mg PO BID 06/07/24 07/14/24 History Metoprolol Tartrate [Lopressor] 25 mg PO BID 30 Days #60 tab 06/10/24 07/14/24 Rx Sacubitril/Valsartan [Entresto 24 1 tab PO BID 06/19/24 07/14/24 History mg-26 mg Tablet] Nitroglycerin Sl Tabs [Nitrostat] 0.4 mg SL Q5M PRN 07/04/24 07/14/24 History Midodrine [ProAmatine] 10 mg PO AC-TID 30 Days #90 tab 07/06/24 07/14/24 Rx Ranolazine [Ranexa] 1,000 mg PO BID 30 Days #120 tab 07/06/24 07/14/24 Rx Isosorbide Mononitrate ER [Imdur] 30 mg PO BID #60 tab 07/13/24 07/14/24 Rx Allergies Allergy/AdvReac Type Severity Reaction Status Date / Time zolpidem [From Ambien] Allergy Hallucinati Verified 07/14/24 10:44 ons atorvastatin [From Lipitor] AdvReac jt and Verified 07/14/24 10:44 muscle pain baclofen AdvReac caused a Verified 07/14/24 10:44 fall Physical Exam Vitals: Vital Signs Temp Pulse Resp BP Pulse Ox 07/14/24 12:32 81 18 107/61 96 07/14/24 11:43 80 18 121/60 98 07/14/24 10:41 97.3 F L 82 26 H 130/63 100 Intake and Output 07/13/24 07/14/24 07/14/24 22:59 06:59 14:59 Other: Weight 95.254 kg Results CBC & Chem 7: 07/14/24 11:22 07/14/24 11:22 Labs: Abnormal Lab Results - Last 24 Hours (Table) 07/14/24 07/14/24 07/14/24 Range/Units 11:22 11:22 11:22 RBC 3.30 L (4.30-5.90) m/uL Hgb 10.8 L (13.0-17.5) gm/dL Hct 31.8 L (39.0-53.0) % Plt Count 149 L (150-450) k/uL Chloride 97 L (98-107) mmol/L Carbon Dioxide 31 H (22-30) mmol/L BUN 30 H (9-20) mg/dL Creatinine 3.66 H (0.66-1.25) mg/dL Glucose 114 H (74-99) mg/dL Troponin I 0.292 H* (0.000-0.034) ng/mL
[2024-07-14] MEDS: MIDODRINE 5 MG TAB PO SCH (17:28)
[2024-07-14] MEDS: PRAMIPEXOLE 0.5 MG TAB PO PRN (17:32)
[2024-07-14] MEDS: ATORVASTATIN 40 MG TAB PO SCH (19:38)
[2024-07-14] MEDS: RANOLAZINE 500 MG TAB.ER.12H PO SCH (21:26)
[2024-07-14] MEDS: METOPROLOL TARTRATE 25 MG TAB PO SCH (21:26)
[2024-07-14] MEDS: TAMSULOSIN 0.4 MG CAP.ER.24H PO SCH (21:27)
[2024-07-14] MEDS: TOPIRAMATE 25 MG TAB PO SCH (21:27)
[2024-07-14] MEDS: ISOSORBIDE MONONITRATE ER 30 MG TAB.ER.24H PO SCH (21:27)
[2024-07-14] MEDS: SACUBITRIL/VALSARTAN 24 MG-26 MG TABLET PO SCH (21:27)
[2024-07-14] MEDS: CRESTOR PO SCH (21:27)
[2024-07-14] MEDS: HEPARIN SODIUM 1,000 UN/ML (10ML VL) IV PRN (21:32)
[2024-07-14 23:38] LABS: Glucose,Whole Blood 79 mg/dL (70-110)
[2024-07-15 01:23] LABS: Glucose,Whole Blood 138 mg/dL (70-110)
[2024-07-15] MEDS: ALPRAZolam 0.5 MG TAB PO PRN (01:26)
[2024-07-15 05:18] LABS: Basophils % (A) 1 %; Eosinophils # (A) 0.1 k/uL (0-0.7); Eosinophils % (A) 2 %; HCT 32.5 % (39.0-53.0); HGB 10.7 gm/dL (13.0-17.5); Lymphocytes # (A) 1.7 k/uL (1.0-4.8); Lymphocytes % (A) 36 %; MCH 32.5 pg (25.0-35.0); MCHC 32.9 g/dL (31.0-37.0); MCV 98.6 fL (80.0-100.0); Mean Platelet Volume 8.8; Monocytes # (A) 0.5 k/uL (0-1.0); Monocytes % (A) 11 %; Neutrophils # (A) 2.2 k/uL (1.3-7.7); Neutrophils % (A) 46 %; Platelet Count 165 k/uL (150-450); RDW 13.3 % (11.5-15.5); WBC 4.7 k/uL (3.8-10.6)
[2024-07-15 05:39] LABS: African American GFR (CKD) 12 (>60 ml/min/1.73 sqM); Anion Gap 9 mmol/L; Blood Urea Nitrogen 39 mg/dL (9-20); Calcium 8.6 mg/dL (8.4-10.2); Carbon Dioxide 33 mmol/L (22-30); Chloride 96 mmol/L (98-107); Glucose 75 mg/dL (74-99); Non-African American GFR(CKD) 10 (>60 ml/min/1.73 sqM); Potassium 4.4 mmol/L (3.5-5.1); Sodium 138 mmol/L (137-145)
[2024-07-15 05:40] LABS: INR 1.1 (<1.2)
[2024-07-15 05:50] LABS: Glucose,Whole Blood 65 mg/dL (70-110)
[2024-07-15] MEDS: MORPHINE SULFATE 2 MG/ML SYRINGE IVP STA (05:51)
[2024-07-15] MEDS: GABAPENTIN 300 MG CAP PO STA (05:52)
[2024-07-15 06:46] LABS: Glucose,Whole Blood 123 mg/dL (70-110)
[2024-07-15] MEDS: EZETIMIBE 10 MG TAB PO SCH (09:53)
[2024-07-15] MEDS: LORATADINE 10 MG TAB PO SCH (09:53)
[2024-07-15] MEDS: CLOPIDOGREL 75 MG TAB PO SCH (09:54)
[2024-07-15] MEDS: ESCITALOPRAM 10 MG TAB PO SCH (09:54)
[2024-07-15] MEDS: TORSEMIDE 20 MG TAB PO SCH (09:54)
[2024-07-15] MEDS: ASPIRIN 81 MG PO SCH (09:54)
[2024-07-15] MEDS: FERROUS SULFATE 325 MG TAB PO SCH (09:54)
[2024-07-15] MEDS: CHOLECALCIFEROL 25 MCG (1000 IU) TABLET PO SCH (09:54)
--- NOTE | 2024-07-15 10:31 | P.CRDCN ---
History of Present Illness Consult date: 07/15/24 Consult reason: chest pain History of present illness: This is Hao Teran NP, I'm dictating on behalf of Dr. Huffman's H&P and A&P The patient was interviewed and examined. HPI: Patient is a pleasant 73-year-old male with a past medical history of coronary artery disease, COPD, end-stage renal disease on dialysis, congestive heart failure, COPD, diabetes, hyperlipidemia, hypertension who presents to the hospital with complaints of chest pain. Patient has had multiple previous episodes of chest pain. The specific 1 happened while he was in dialysis. He reports that he has centralized chest pain/pressure that builds slowly into significant pain. He denied dizziness, lightheadedness, and syncope during the episode. He was sent by dialysis to the emergency department for evaluation. Troponins were initially flat but have increased since arrival. EKG shows sinus rhythm with a first-degree block. At this time patient is not complaining of any chest pain. ROS: [No fever, chills, or rigors] [no cough, phlegm, or expectoration] [no nausea, vomiting, or diarrhea] [no hematuria, dysuria] [no musculoskelatal complaints] [no strokes or seizures] [no skin lesions] EXAMINATION: GENERAL: Well-appearing, well-nourished and in no acute distress. NECK: Supple without JVD or thyromegaly. LUNGS: Breath sounds clear to auscultation bilaterally. Respiration equal and unlabored. No wheezes, rales or rhonchi. HEART: Regular rate and rhythm without murmurs, rubs or gallops. S1 and S2 heard. EXTREMITIES: Normal range of motion, no edema. No clubbing or cyanosis. Peripheral pulses intact and strong. REVIEW OF LABS, ECG & MEDICAL DATA: LABS: White count 4.7, hemoglobin 10.7, platelets 165, sodium 138, potassium 4.4, BUN 39, creatinine 5.14, calcium 8.6, magnesium 2.1, troponin-0.292, 0.826, 2.160, BNP 29,700 EKG: Sinus mechanism with first-degree block IMAGING: Chest x-ray dated 07/14/2024 demonstrates airspace opacities projecting over the spine not seen on prior. VITALS: Temp 97.3, pulse 68, respirations 16, blood pressure 104/52, O2 saturation 97% on 2 L IMPRESSION: 1. Elevated troponin, likely mild cardiac injury 2. Atherosclerotic heart disease, severe 3. CKD, on dialysis 4. Severe aortic stenosis, EF 45% 5. Diabetes PLAN: Increase atorvastatin to 80 mg daily. Continue Zetia. Need to evaluate possibility of aortic valve replacement. Current chest pain and continued issues may be secondary to the severe aortic stenosis. Continue IV heparin. Patient needs half dose Entresto as an outpatient. Patient should not be on midodrine at home. Thank you for the consult and allowing us to participate in the care of this patient. Past Medical History Past Medical History: Blood Disorder, Coronary Artery Disease (CAD), Chest Pain / Angina, Heart Failure, COPD, Diabetes Mellitus, Dialysis, Hearing Disorder / Deafness, Hyperlipidemia, Hypertension, Myocardial Infarction ([place]), Osteoarthritis (OA), Renal Disease, Sleep Apnea/CPAP/BIPAP Additional Past Medical History / Comment(s): has insulin pump and contiunuous blood glucose monitor,fell at home on Tuesday10-10-23"got dizzy"-no injury,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. Chronic renal failure, dialysis [facility] normally. Patient has insulin pump. Has CPAP, occasionally uses. Neuropathy in feet and hands. Poor hearing. Last Myocardial Infarction Date:: History of Any Multi-Drug Resistant Organisms: None Reported Past Surgical History: Cholecystectomy, Coronary Bypass/CABG, Heart Catheterization, Heart Catheterization With Stent, Orthopedic Surgery Additional Past Surgical History / Comment(s): Shoulder surgery-no hardware, hemorrhoidectomy, eye surgery,4 cardiac stents,AV fistula left forearm, double vessle CABG 10/17/23 Past Anesthesia/Blood Transfusion Reactions: No Reported Reaction Additional Past Anesthesia/Blood Transfusion Reaction / Comment(s): Never had a blood transfusion. Date of Last Stent Placement:: 2004,2014,2023 Past Psychological History: Anxiety Smoking Status: Former smoker Past Alcohol Use History: None Reported Past Drug Use History: None Reported - Past Family History Father Family Medical History: Cancer Additional Family Medical History / Comment(s): Bladder cancer. Mother Family Medical History: Cancer, Diabetes Mellitus Additional Family Medical History / Comment(s): Pancreatic cancer. Medications and Allergies Home Medications Medication Instructions Recorded Confirmed Type Ezetimibe [Zetia] 10 mg PO DAILY 05/19/16 07/14/24 History Ferrous Sulfate [Iron (65 MG 325 mg PO DAILY 05/19/16 07/14/24 History Elemental)] Insulin Aspart (For Pump) [NovoLOG 0.01 unit SQ-PUMP CONTINUOUS 05/28/18 07/14/24 History (For Pump)] Pramipexole [Mirapex] 0.5 mg PO BID PRN 05/02/19 07/14/24 History Albuterol Inhaler [Ventolin Hfa 2 puff INHALATION RT-Q4H PRN 08/10/21 07/14/24 History Inhaler] Aspirin EC [Ecotrin Low Dose] 81 mg PO DAILY 02/21/22 07/14/24 History Glucagon Emergency Kit 1 mg IM ONCE PRN 02/21/22 07/14/24 History Escitalopram [Lexapro] 10 mg PO DAILY 01/01/23 07/14/24 History ALPRAZolam [Xanax] 0.5 mg PO HS PRN 06/17/23 07/14/24 History Cholecalciferol [Vitamin D3 (25 50 mcg PO DAILY 06/17/23 07/14/24 History Mcg = 1000 Iu)] Tamsulosin [Flomax] 0.4 mg PO HS 06/17/23 07/14/24 History Cetirizine HCl [Zyrtec] 10 mg PO DAILY 09/22/23 07/14/24 History Folic Acid/Vit B Complex and C 0.8 mg PO DAILY 09/22/23 07/14/24 History [Nephro-Pooja Tablet] Torsemide [Demadex] 40 mg PO SUMOWEFR 09/22/23 07/14/24 History Clopidogrel [Plavix] 75 mg PO DAILY #30 tab 10/24/23 07/14/24 Rx Rosuvastatin [Crestor] 10 mg PO HS 06/07/24 07/14/24 History Topiramate [Topamax] 25 mg PO BID 06/07/24 07/14/24 History Metoprolol Tartrate [Lopressor] 25 mg PO BID 30 Days #60 tab 06/10/24 07/14/24 Rx Sacubitril/Valsartan [Entresto 24 1 tab PO BID 06/19/24 07/14/24 History mg-26 mg Tablet] Nitroglycerin Sl Tabs [Nitrostat] 0.4 mg SL Q5M PRN 07/04/24 07/14/24 History Midodrine [ProAmatine] 10 mg PO AC-TID 30 Days #90 tab 07/06/24 07/14/24 Rx Ranolazine [Ranexa] 1,000 mg PO BID 30 Days #120 tab 07/06/24 07/14/24 Rx Isosorbide Mononitrate ER [Imdur] 30 mg PO BID #60 tab 07/13/24 07/14/24 Rx Allergies Allergy/AdvReac Type Severity Reaction Status Date / Time zolpidem [From Ambien] Allergy Hallucinati Verified 07/14/24 15:33 ons atorvastatin [From Lipitor] AdvReac jt and Verified 07/14/24 15:33 muscle pain baclofen AdvReac caused a Verified 07/14/24 15:33 fall Physical Exam Vitals: Vital Signs Temp Pulse Resp BP Pulse Ox 07/15/24 08:31 97 07/15/24 06:35 68 16 104/52 97 07/15/24 05:55 71 18 101/49 96 07/15/24 05:00 66 16 104/55 98 07/15/24 02:00 60 16 110/59 99 07/14/24 23:00 60 16 104/51 98 07/14/24 21:20 68 18 110/50 98 07/14/24 19:25 65 16 113/55 99 07/14/24 17:27 66 18 100/46 100 07/14/24 15:14 65 18 103/56 95 07/14/24 12:32 81 18 107/61 96 07/14/24 11:43 80 18 121/60 98 07/14/24 10:41 97.3 F L 82 26 H 130/63 100 Intake and Output 07/14/24 07/15/24 07/15/24 22:59 06:59 14:59 Intake Total 76.682 Balance 76.682 Intake: Intake, IV Titration 76.682 Amount Heparin Sod,Pork in 0.45% 76.682 NaCl 25,000 unit In 0.45 % NaCl 1 250ml.bag @ 10.5 UNITS/KG/HR 10.002 mls/ hr IV .Q24H [facility] Rx#: [id number] Results 07/15/24 04:24 07/15/24 04:24 Cardiac Enzymes 07/14/24 07/14/24 07/14/24 Range/Units 11:22 11:22 14:35 AST 26 (17-59) U/L Troponin I 0.292 H* 0.826 H* (0.000-0.034) ng/mL 07/14/24 Range/Units 17:43 AST (17-59) U/L Troponin I 2.160 H* (0.000-0.034) ng/mL Coagulation 07/14/24 07/14/24 07/15/24 Range/Units 11:22 20:09 04:24 PT 10.8 12.0 (10.0-12.5) sec APTT 27.5 28.2 (22.0-30.0) sec 07/15/24 Range/Units 04:24 PT (10.0-12.5) sec APTT 62.2 H (22.0-30.0) sec CBC 07/14/24 07/15/24 Range/Units 11:22 04:24 WBC 4.2 4.7 (3.8-10.6) k/uL RBC 3.30 L 3.30 L (4.30-5.90) m/uL Hgb 10.8 L 10.7 L (13.0-17.5) gm/dL Hct 31.8 L 32.5 L (39.0-53.0) % Plt Count 149 L 165 (150-450) k/uL Comprehensive Metabolic Panel 07/14/24 07/15/24 Range/Units 11:22 04:24 Sodium 137 138 (137-145) mmol/L Potassium 3.7 4.4 (3.5-5.1) mmol/L Chloride 97 L 96 L (98-107) mmol/L Carbon Dioxide 31 H 33 H (22-30) mmol/L BUN 30 H 39 H (9-20) mg/dL Creatinine 3.66 H 5.14 H (0.66-1.25) mg/dL Glucose 114 H 75 (74-99) mg/dL Calcium 8.7 8.6 (8.4-10.2) mg/dL AST 26 (17-59) U/L ALT 20 (4-49) U/L Alkaline Phosphatase 123 (38-126) U/L Total Protein 7.1 (6.3-8.2) g/dL Albumin 4.1 (3.5-5.0) g/dL Current Medications Generic Name Dose Route Start Last Admin Trade Name Trevonq PRN Reason Stop Dose Admin Albuterol Sulfate 2.5 mg 07/14/24 13:19 Albuterol Nebulized 2.5 Mg/3 Ml INHALATION RT-Q4H PRN Shortness Of Breath Alprazolam 0.5 mg 07/14/24 13:19 07/15/24 01:26 Alprazolam 0.5 Mg Tab PO 0.5 mg HS PRN Administration Severe Anxiety Aspirin 81 mg 07/15/24 09:00 07/15/24 09:54 Aspirin 81 Mg PO 81 mg DAILY [facility] Administration Atorvastatin Calcium 80 mg 07/16/24 09:00 Atorvastatin 40 Mg Tab PO DAILY [facility] Cholecalciferol 50 mcg 07/15/24 09:00 07/15/24 09:54 Cholecalciferol 25 Mcg (1000 Iu) Tablet PO 50 mcg DAILY JOEY Administration Clopidogrel Bisulfate 75 mg 07/15/24 09:00 07/15/24 09:54 Clopidogrel 75 Mg Tab PO 75 mg DAILY [facility]EY Administration Dextrose/Water 25 ml 07/14/24 13:55 Dextrose 50% Syringe 50 Ml IVP PER PROTOCOL PRN Hypoglycemia Protocol Dextrose/Water 50 ml 07/14/24 13:55 Dextrose 50% Syringe 50 Ml IVP PER PROTOCOL PRN Hypoglycemia Protocol Ezetimibe 10 mg 07/15/24 09:00 07/15/24 09:53 Ezetimibe 10 Mg Tab PO 10 mg DAILY [facility] Administration Escitalopram Oxalate 10 mg 07/15/24 09:00 07/15/24 09:54 Escitalopram 10 Mg Tab PO 10 mg DAILY [facility] Administration Ferrous Sulfate 325 mg 07/15/24 09:00 07/15/24 09:54 Ferrous Sulfate 325 Mg Tab PO 325 mg DAILY [facility] Administration Heparin Sodium (Porcine) 0 unit 07/14/24 13:27 07/14/24 21:32 Heparin Sodium 1,000 Un/Ml (10ml Vl) IV 4,750 unit PER PROTOCOL PRN Administration Low PTT Protocol Heparin Sodium/Sodium Chloride 250 mls @ 10.002 mls/hr 07/14/24 13:30 07/14/24 21:31 25,000 unit/ Sodium Chloride IV 13.5 units/kg/hr .Q24H [facility] 12.859 mls/hr Titration Protocol 10.5 UNITS/KG/HR Insulin Aspart 0.01 unit 07/14/24 13:30 07/14/24 13:53 Insulin Aspart (For Pump) 100 Unit/Ml Vial SQ-PUMP 0.01 unit CONTINUOUS JOEY Administration Isosorbide Mononitrate 30 mg 07/14/24 21:00 07/15/24 09:53 Isosorbide Mononitrate Er 30 Mg Tab.Er.24h PO 30 mg BID [facility] Administration Loratadine 10 mg 07/15/24 09:00 07/15/24 09:53 Loratadine 10 Mg Tab PO 10 mg DAILY [facility] Administration Metoprolol Tartrate 25 mg 07/14/24 21:00 07/15/24 09:53 Metoprolol Tartrate 25 Mg Tab PO 25 mg BID [facility]EY Administration Midodrine 10 mg 07/14/24 17:30 07/15/24 10:11 Midodrine 5 Mg Tab PO 10 mg AC-TID JOEY Administration Multivit/Ca Carb/B Cmplx/FA/Prenat 1 each 07/15/24 09:00 Folic Acid-Vit B Complex-Vit C 1 Cap PO DAILY [facility] Naloxone HCl 0.2 mg 07/14/24 13:17 Naloxone 0.4 Mg/Ml 1 Ml Vial IV Q2M PRN Opioid Reversal Crestor ( 10 mg 07/14/24 21:00 07/14/24 21:27 Rosuvastatin 20 Mg PO Not Given Tablet) HS [facility] Pramipexole Dihydrochloride 0.5 mg 07/14/24 13:19 07/14/24 17:32 Pramipexole 0.5 Mg Tab PO 0.5 mg BID PRN Administration Restless legs Ranolazine 1,000 mg 07/14/24 21:00 07/15/24 10:13 Ranolazine 500 Mg Tab.Er.12h PO 1,000 mg BID JOEY Administration Sacubitril/Valsartan 1 each 07/14/24 21:00 07/15/24 09:54 Sacubitril/Valsartan 24 Mg-26 Mg Tablet PO 1 each BID JOEY Administration Tamsulosin HCl 0.4 mg 07/14/24 21:00 07/14/24 21:27 Tamsulosin 0.4 Mg Cap.Er.24h PO 0.4 mg HS [facility]EY Administration Topiramate 25 mg 07/14/24 21:00 07/15/24 09:54 Topiramate 25 Mg Tab PO 25 mg BID JOEY Administration Torsemide 40 mg 07/15/24 09:00 07/15/24 09:54 Torsemide 20 Mg Tab PO 40 mg SUMOWEFR [facility] Administration Intake and Output 07/14/24 07/15/24 07/15/24 22:59 06:59 14:59 Intake Total 76.682 Balance 76.682 Intake: Intake, IV Titration 76.682 Amount Heparin Sod,Pork in 0.45% 76.682 NaCl 25,000 unit In 0.45 % NaCl 1 250ml.bag @ 10.5 UNITS/KG/HR 10.002 mls/ hr IV .Q24H [facility] Rx#: [id number] 07/15/24 04:24 07/15/24 04:24
[2024-07-15] MEDS: FOLIC ACID-VIT B COMPLEX-VIT C 1 CAP PO SCH (10:53)
[2024-07-15 12:25] LABS: Glucose,Whole Blood 104 mg/dL (70-110)
--- NOTE | 2024-07-15 12:29 | P.PN ---
Subjective Progress Note Date: 07/15/24 Subjective: Patient seen and examined at bedside. No acute events overnight. Denies any further chest pain at the moment. Also complaining of bilateral upper extremity paresthesias. Pertinent positives and negatives as discussed above, a complete review of systems was performed and all other systems are negative. Vitals Signs Reviewed. General: Nontoxic, no distress, appears at stated age Derm: Warm, dry Head: Atraumatic, normocephalic, symmetric Eyes: EOMI, no lid lag, anicteric sclera Mouth: No lip lesion, mucus membranes moist Cardiovascular: S1S2 reg, systolic murmur Lungs: CTA bilateral, no rhonchi, no rales, no accessory muscle use, supplemental oxygen Abdominal: Soft, nontender to palpation, no guarding, no appreciable organomegaly Ext: No gross muscle atrophy, no edema, no contractures Neuro: CN II-XI grossly intact, no focal neuro deficits Psych: Alert, oriented, appropriate affect Data Reviewed Today: Pertinent Labs: WBC 4.7, hemoglobin 10.7, bicarb 33, creatinine 5.14, blood sugars 123, troponin elevated to one 9.75 Imaging: No new imaging Assessment and Plan: Active: Acute NSTEMI History of CAD status post CABG, multiple stents Moderate to severe aortic stenosis Dyslipidemia -Continue heparin drip, monitor APTT, monitor for bleeding -Continue to trend troponin as it has not peaked yet -Continue telemetry -Cardiology note reviewed, started on atorvastatin 80 mg, continue aspirin 81 mg, Plavix 75 mg daily, discontinue midodrine -On Ranexa 1000 mg twice daily -Ezetimibe 10 mg daily HFrEF, not in exacerbation Hypertension -Entresto 2426 twice daily, torsemide 40 p.o. 4 times a week, metoprolol 25 twice daily, Imdur 30 twice daily ESRD on hemodialysis -Nephrology following Peripheral neuropathy -Gabapentin 100 mg twice daily Insulin-dependent diabetes -Continue insulin pump, fingersticks ACHS, monitor for hypoglycemia Chronic: BPH COPD not in exacerbation DVT ppx: Heparin drip Code status: Full code Anticipated discharge place: Pending clinical course Anticipated discharge time: Pending clinical course Objective - Vital Signs Vital signs: Vital Signs Temp 97.3 F L 07/14/24 10:41 Pulse 62 07/15/24 08:00 Resp 18 07/15/24 08:00 BP 91/47 07/15/24 08:00 Pulse Ox 97 07/15/24 08:31 FiO2 Intake & Output 07/14/24 07/15/24 07/15/24 18:59 06:59 18:59 Intake Total 76.682 166.953 Balance 76.682 166.953 Weight 95.254 kg Intake: Intake, IV Titration 76.682 166.953 Amount Heparin Sod,Pork in 0.45% 76.682 166.953 NaCl 25,000 unit In 0.45 % NaCl 1 250ml.bag @ 10.5 UNITS/KG/HR 10.002 mls/ hr IV .Q24H [facility] Rx#: [id number] Other: Voiding Method Toilet - Labs CBC & Chem 7: 07/15/24 04:24 07/15/24 04:24 Labs: Abnormal Lab Results - Last 24 Hours (Table) 07/14/24 07/14/24 07/15/24 Range/Units 14:35 17:43 01:21 RBC (4.30-5.90) m/uL Hgb (13.0-17.5) gm/dL Hct (39.0-53.0) % APTT (22.0-30.0) sec Chloride (98-107) mmol/L Carbon Dioxide (22-30) mmol/L BUN (9-20) mg/dL Creatinine (0.66-1.25) mg/dL POC Glucose (mg/dL) 138 H (70-110) mg/dL Troponin I 0.826 H* 2.160 H* (0.000-0.034) ng/mL 07/15/24 07/15/24 07/15/24 Range/Units 04:24 04:24 04:24 RBC 3.30 L (4.30-5.90) m/uL Hgb 10.7 L (13.0-17.5) gm/dL Hct 32.5 L (39.0-53.0) % APTT 62.2 H (22.0-30.0) sec Chloride 96 L (98-107) mmol/L Carbon Dioxide 33 H (22-30) mmol/L BUN 39 H (9-20) mg/dL Creatinine 5.14 H (0.66-1.25) mg/dL POC Glucose (mg/dL) (70-110) mg/dL Troponin I (0.000-0.034) ng/mL 07/15/24 07/15/24 07/15/24 Range/Units 05:49 06:44 09:31 RBC (4.30-5.90) m/uL Hgb (13.0-17.5) gm/dL Hct (39.0-53.0) % APTT (22.0-30.0) sec Chloride (98-107) mmol/L Carbon Dioxide (22-30) mmol/L BUN (9-20) mg/dL Creatinine (0.66-1.25) mg/dL POC Glucose (mg/dL) 65 L 123 H (70-110) mg/dL Troponin I 9.750 H* (0.000-0.034) ng/mL
--- NOTE | 2024-07-15 13:40 | P.NPCON ---
History of Present Illness - Reason for Consult end stage renal disease - History of Present Illness Patient is a 73-year-old male with end-stage renal disease on hemodialysis on a Tuesday schedule. He was sent in from the dialysis unit yesterday with complaints of chest pain. Patient had about 2 hours of treatment and he started complaining of chest pain but no major radiation.. There was no drop in blood pressure. Patient was just discharged yesterday after admission for chest pain. Troponin were not elevated at that time. On this admission serum troponin was initially 0.2 and subsequently increased to 9.7 this morning. Patient is being followed by cardiology. He is maintained on heparin drip. Currently seen in the ER. Patient is resting comfortably family is present at bedside. No complaints of fever cough nausea vomiting. Past Medical History Past Medical History: Blood Disorder, Coronary Artery Disease (CAD), Chest Pain / Angina, Heart Failure, COPD, Diabetes Mellitus, Dialysis, Hearing Disorder / Deafness, Hyperlipidemia, Hypertension, Myocardial Infarction ([place]), Osteoarthritis (OA), Renal Disease, Sleep Apnea/CPAP/BIPAP Additional Past Medical History / Comment(s): has insulin pump and contiunuous blood glucose monitor,fell at home on Tuesday10-10-23"got dizzy"-no injury,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. Chronic renal failure, dialysis [facility] normally. Patient has insulin pump. Has CPAP, occasionally uses. Neuropathy in feet and hands. Poor hearing. Last Myocardial Infarction Date:: History of Any Multi-Drug Resistant Organisms: None Reported Past Surgical History: Cholecystectomy, Coronary Bypass/CABG, Heart Catheterization, Heart Catheterization With Stent, Orthopedic Surgery Additional Past Surgical History / Comment(s): Shoulder surgery-no hardware, hemorrhoidectomy, eye surgery,4 cardiac stents,AV fistula left forearm, double vessle CABG 10/17/23 Past Anesthesia/Blood Transfusion Reactions: No Reported Reaction Additional Past Anesthesia/Blood Transfusion Reaction / Comment(s): Never had a blood transfusion. Date of Last Stent Placement:: 2004,2014,2023 Past Psychological History: Anxiety Smoking Status: Former smoker Past Alcohol Use History: None Reported Past Drug Use History: None Reported - Past Family History Father Family Medical History: Cancer Additional Family Medical History / Comment(s): Bladder cancer. Mother Family Medical History: Cancer, Diabetes Mellitus Additional Family Medical History / Comment(s): Pancreatic cancer. Medications and Allergies Home Medications Medication Instructions Recorded Confirmed Type Ezetimibe [Zetia] 10 mg PO DAILY 05/19/16 07/14/24 History Ferrous Sulfate [Iron (65 MG 325 mg PO DAILY 05/19/16 07/14/24 History Elemental)] Insulin Aspart (For Pump) [NovoLOG 0.01 unit SQ-PUMP CONTINUOUS 05/28/18 07/14/24 History (For Pump)] Pramipexole [Mirapex] 0.5 mg PO BID PRN 05/02/19 07/14/24 History Albuterol Inhaler [Ventolin Hfa 2 puff INHALATION RT-Q4H PRN 08/10/21 07/14/24 History Inhaler] Aspirin EC [Ecotrin Low Dose] 81 mg PO DAILY 02/21/22 07/14/24 History Glucagon Emergency Kit 1 mg IM ONCE PRN 02/21/22 07/14/24 History Escitalopram [Lexapro] 10 mg PO DAILY 01/01/23 07/14/24 History ALPRAZolam [Xanax] 0.5 mg PO HS PRN 06/17/23 07/14/24 History Cholecalciferol [Vitamin D3 (25 50 mcg PO DAILY 06/17/23 07/14/24 History Mcg = 1000 Iu)] Tamsulosin [Flomax] 0.4 mg PO HS 06/17/23 07/14/24 History Cetirizine HCl [Zyrtec] 10 mg PO DAILY 09/22/23 07/14/24 History Folic Acid/Vit B Complex and C 0.8 mg PO DAILY 09/22/23 07/14/24 History [Nephro-Pooja Tablet] Torsemide [Demadex] 40 mg PO SUMOWEFR 09/22/23 07/14/24 History Clopidogrel [Plavix] 75 mg PO DAILY #30 tab 10/24/23 07/14/24 Rx Rosuvastatin [Crestor] 10 mg PO HS 06/07/24 07/14/24 History Topiramate [Topamax] 25 mg PO BID 06/07/24 07/14/24 History Metoprolol Tartrate [Lopressor] 25 mg PO BID 30 Days #60 tab 06/10/24 07/14/24 Rx Sacubitril/Valsartan [Entresto 24 1 tab PO BID 06/19/24 07/14/24 History mg-26 mg Tablet] Nitroglycerin Sl Tabs [Nitrostat] 0.4 mg SL Q5M PRN 07/04/24 07/14/24 History Midodrine [ProAmatine] 10 mg PO AC-TID 30 Days #90 tab 07/06/24 07/14/24 Rx Ranolazine [Ranexa] 1,000 mg PO BID 30 Days #120 tab 07/06/24 07/14/24 Rx Isosorbide Mononitrate ER [Imdur] 30 mg PO BID #60 tab 07/13/24 07/14/24 Rx Allergies Allergy/AdvReac Type Severity Reaction Status Date / Time zolpidem [From Ambien] Allergy Hallucinati Verified 07/14/24 15:33 ons atorvastatin [From Lipitor] AdvReac jt and Verified 07/14/24 15:33 muscle pain baclofen AdvReac caused a Verified 07/14/24 15:33 fall Physical Exam Vitals: Vital Signs Pulse Pulse Resp BP BP Pulse Ox 07/15/24 08:31 97 07/15/24 08:00 62 18 91/47 95 07/15/24 06:35 68 16 104/52 97 07/15/24 05:55 71 18 101/49 96 07/15/24 05:00 66 16 104/55 98 07/15/24 02:00 60 16 110/59 99 07/14/24 23:00 60 16 104/51 98 07/14/24 21:20 68 18 110/50 98 07/14/24 19:25 65 16 113/55 99 07/14/24 17:27 66 18 100/46 100 07/14/24 15:14 65 18 103/56 95 Intake and Output 07/14/24 07/15/24 07/15/24 22:59 06:59 14:59 Intake Total 76.682 166.953 Balance 76.682 166.953 Intake: Intake, IV Titration 76.682 166.953 Amount Heparin Sod,Pork in 0.45% 76.682 166.953 NaCl 25,000 unit In 0.45 % NaCl 1 250ml.bag @ 10.5 UNITS/KG/HR 10.002 mls/ hr IV .Q24H [facility] Rx#: [id number] Other: Voiding Method Toilet Patient is sleeping but arousable Comfortable Examination of the heart S1 and S2 Examination of the lungs bilateral breath sounds are heard Abdomen is soft nontender Examination of lower extremities shows trace edema Results - Lab Results Most recent lab results Calcium 8.6 mg/dL (8.4-10.2) 07/15/24 04:24 Magnesium 2.1 mg/dL (1.6-2.3) 07/14/24 11:22 07/15/24 04:24 07/15/24 04:24 Assessment and Plan Assessment: 1. End-stage renal disease on hemodialysis on a Tuesday schedule 2. Acute non-ST elevation [place] 3. Coronary artery disease 4. CKD mineral bone disorder Plan: Patient will be dialyzed based on cardiac catheterization. He is currently fairly comfortable and does not appear to be in fluid overload.
[2024-07-15] MEDS: IV FLUID CONTINUATION 1,000 ML IV ONE (14:17)
[2024-07-15] MEDS: LIDOCAINE 1% INJ 10MG/ML (20 ML MDV) SQ ONE (14:33)
[2024-07-15] MEDS: HEPARIN SODIUM 1,000 UN/ML (10ML VL) IVP ONE (14:55)
[2024-07-15] MEDS: NOREPINEPHRINE 4 MG in SODIUM CHLORIDE 0.9% 250 ML IV ONE (15:01)
[2024-07-15] MEDS: IOPAMIDOL-370 100ML BTL INJ ONE ×2 (15:05→15:32)
[2024-07-15] MEDS ORDERED: ZOLPIDEM 5 MG TAB PO PRN (15:40)
[2024-07-15] MEDS ORDERED: RX INFO: IV CONTRAST WAS GIVEN 1 EACH MISC MISCELLANE PRN (15:40)
[2024-07-15] MEDS ORDERED: NITROGLYCERIN SL TABS 0.4 MG TAB SUBLINGUAL PRN (15:40)
[2024-07-15] MEDS ORDERED: ATROPINE SULFATE 0.1 MG/ML 10ML SYRINGE IV PRN (15:40)
[2024-07-15] MEDS ORDERED: MAG HYDROX/AL HYDROX/SIMETH 30 ML CUP PO PRN (15:40)
[2024-07-15] MEDS: TICAGRELOR 90 MG TAB PO ONE (15:43)
--- NOTE | 2024-07-15 15:59 | P.PCN ---
Date of Procedure: 07/15/24 Operative Findings: CARDIAC CATHETERIZATION AND PERCUTANEOUS CORONARY INTERVENTION PERFORMING PHYSICIAN: Donnell Radford MD, [facility] PROCEDURE PERFORMED: 1. Selective right and left coronary angiogram and TIAN to LAD angiogram 2. Left heart catheterization 3. Successful PTCA of proximal and mid RCA using 3.5 mm noncompliant balloon with an excellent angiographic results and reduction of stenosis from 80% to 0% 4. Adjunctive use of IVUS 5. Successful placement of transvenous pacemaker from right common femoral vein 6. Ultrasound-guided access of the right common femoral artery and selective right common femoral artery angiogram INDICATION: Acute non-ST elevation myocardial infarction COMPLICATION: None APPROACH: Right common femoral artery and right common femoral vein LEVEL OF SEDATION: Moderate with the sedation time off 51 minutes PROCEDURE DESCRIPTION: After obtaining informed consent the patient was brought to the cardiac Open Tenter Operator with the right common femoral artery was cannulated using micropuncture technique under ultrasound guidance the micropuncture wire passed easily then I placed a 6 Icelandic 11 cm sheath at the right common femoral artery after the right common femoral artery was dilated using 6 Icelandic dilator. After that I did selective right common femoral artery angiogram. Subsequently I did selective left and right coronary angiogram using JL 4 and JR4 catheter and TIAN to LAD angiogram was performed using the JR4 catheter as well. The SVG to ramus intermedius is known to be occluded from previous heart catheterization. After that I decided to intervene on the RCA. Anticoagulation was initiated using heparin with continuous ACT monitoring. Subsequently I did engage the RCA using JR4 guiding catheter. Giving the difficulties engaging the right coronary artery I did wired the RCA from the get go using run-through wires x 2 just to have a better anchoring of the RCA guide. Subsequently I did IVUS which showed diffuse in-stent restenosis of the mid and proximal RCA with a diameter around 3.5 mm. I predilated using 3.0 mm noncompliant balloon and subsequently 3.5 mm noncompliant balloon was final angiogram showing excellent angiographic results and the procedure was completed with no complication. Please note that before I started the procedure and given the patient flowing into AV block mostly second- degree type I AV block with slow heart rate I decided to put a temporary pacemaker. The right common femoral vein was cannulated and subsequently I placed a 6 Icelandic sheath at the right common femoral vein and under fluoroscopy guidance the balloon tip temporary pacemaker was advanced to the right ventricle and was placed on a heart rate of 50 and amp of 5. By the end I did selective right common femoral artery angiogram SELECTIVE CORONARY ANGIOGRAM: The RCA Large-caliber vessel and a dominant vessel with severe and diffuse in-stent restenosis involving the proximal to midportion Left main: Has about 30 to 40% disease distally The left circumflex: Is occluded The left anterior descending artery: The proximal LAD has 6070% disease. The mid LAD after the TIAN anastomosis appeared to have mild disease only The TIAN to LAD is patent HEMODYNAMICS: The LVEDP was 14 mmHg with about 18 mean gradient across aortic valve CONCLUSION: Patent stent in the left main coronary artery Severe disease involving the proximal LAD. Patent TIAN to LAD. Occluded left circumflex coronary artery Severe and diffuse in-stent restenosis of the proximal and mid RCA. I did successful PTCA without stenting of the RCA Normal left-sided filling pressure POSTPROCEDURE MANAGEMENT: 1. Dual antiplatelet therapy using aspirin and Brilinta for 12 month 2. Aggressive cholesterol control 3. Follow-up with the patient
[2024-07-15 16:08] LABS: Glucose,Whole Blood 49 mg/dL (70-110)
[2024-07-15 16:08] LABS: Glucose,Whole Blood 40 mg/dL (70-110)
[2024-07-15] MEDS: GABAPENTIN 100 MG CAP PO SCH (16:26)
[2024-07-15 16:37] LABS: Glucose,Whole Blood 69 mg/dL (70-110)
[2024-07-15] MEDS ORDERED: HYDROmorphone 1 MG/ML 1 ML SYRINGE IM PRN (16:46)
[2024-07-15] MEDS: SODIUM CHLORIDE 0.9% 1,000 ML in EMPTY BAG 1 BAG IV SCH (16:59)
[2024-07-15] MEDS: HYDROmorphone 1 MG/ML 1 ML SYRINGE IVP PRN (17:03)
[2024-07-15 17:27] LABS: Glucose,Whole Blood 97 mg/dL (70-110)
[2024-07-15 20:20] LABS: Glucose,Whole Blood 184 mg/dL (70-110)
[2024-07-15] MEDS: INSULIN ASPART (NovoLOG) 100 UNIT/ML VIAL SQ SCH (21:17)
[2024-07-15] MEDS: TICAGRELOR 90 MG TAB PO SCH (21:17)
[2024-07-15] MEDS: NOREPINEPHRINE 4 MG in SODIUM CHLORIDE 0.9% 250 ML IV SCH (23:11)
[2024-07-16 06:26] LABS: Glucose,Whole Blood 198 mg/dL (70-110)
[2024-07-16 07:35] LABS: ALT 27 U/L (4-49); AST 69 U/L (17-59); African American GFR (CKD) 9 (>60 ml/min/1.73 sqM); Albumin 4.1 g/dL (3.5-5.0); Alkaline Phosphatase 125 U/L (38-126); Anion Gap 14 mmol/L; Blood Urea Nitrogen 45 mg/dL (9-20); Calcium 8.1 mg/dL (8.4-10.2); Carbon Dioxide 28 mmol/L (22-30); Chloride 92 mmol/L (98-107); Glucose 169 mg/dL (74-99); Non-African American GFR(CKD) 8 (>60 ml/min/1.73 sqM); Potassium 5.8 mmol/L (3.5-5.1); Sodium 134 mmol/L (137-145); Total Bilirubin 0.8 mg/dL (0.2-1.3); Total Protein 7.1 g/dL (6.3-8.2)
[2024-07-16 07:47] LABS: Basophils # (A) 0.1 k/uL (0-0.2); Basophils % (A) 1 %; Eosinophils # (A) 0.1 k/uL (0-0.7); Eosinophils % (A) 2 %; HCT 31.5 % (39.0-53.0); HGB 10.5 gm/dL (13.0-17.5); Lymphocytes % (A) 17 %; MCH 33.2 pg (25.0-35.0); MCHC 33.3 g/dL (31.0-37.0); MCV 99.5 fL (80.0-100.0); Mean Platelet Volume 9.5; Monocytes # (A) 0.6 k/uL (0-1.0); Monocytes % (A) 11 %; Neutrophils # (A) 3.6 k/uL (1.3-7.7); Neutrophils % (A) 65 %; Platelet Count 130 k/uL (150-450); RBC 3.16 m/uL (4.30-5.90); RDW 13.9 % (11.5-15.5); WBC 5.6 k/uL (3.8-10.6)
--- NOTE | 2024-07-16 07:56 | P.PN ---
Subjective Progress Note Date: 07/16/24 The patient is a pleasant 73-year-old gentleman with extensive cardiovascular history consistent of CAD with prior CABG and stenting as well as cardiomyopathy and aortic stenosis as well as hypertension and dyslipidemia and end-stage renal disease on dialysis who was admitted to the hospital with acute coronary syndrome and underwent a heart catheterization which revealed patent stent in the left main and patent TIAN to LAD and occluded left circumflex as well as occluded SVG to ramus intermedius and severe in-stent restenosis involving unprotected RCA. I did perform PCI of the RCA. Also I did place a temporary pacemaker because he was bradycardic. July 16, 2024 The patient was seen and evaluated this morning with his currently asymptomatic and he is unstable requiring small dose of norepinephrine. Beside that he still requiring the temporary pacer. I am going to wean the patient back from norepinephrine and monitor the patient for additional 24 hours if he did not recover he might need to have a permanent pacemaker. He is on dual antiplatelet therapy but also is on beta-narcisa and isosorbide mononitrate which I am going to stop and continue dual antiplatelet therapy along with a statin. The physical examination is remarkable for regular rhythm with a systolic murmur at the right upper sternal border with clear breathing sounds bilaterally and no edema was noted in the lower extremities Assessment Acute coronary event CAD as described above Cardiomyopathy Aortic stenosis Multiple comorbid conditions End-stage renal disease on dialysis Plan Continue the current medical regimen DC beta-narcisa DC isosorbide mononitrate Continue dual antiplatelet therapy and statin Continue temporary pacemaker Follow-up with the patient Objective - Vital Signs Vital signs: Vital Signs Temp 98.9 F 07/16/24 04:00 Pulse 53 L 07/16/24 07:00 Resp 9 L 07/16/24 07:00 BP 116/46 07/16/24 07:00 Pulse Ox 96 07/16/24 07:00 FiO2 Intake & Output 07/15/24 07/16/24 07/16/24 18:59 06:59 18:59 Intake Total 489.953 410.828 10 Output Total 0 0 Balance 489.953 410.828 10 Weight 100.6 kg Intake: IV 323 278 10 KVO 110 10 Sodium Chloride 0.9% 1, 150 150 000 ml In Empty Bag 1 bag @ 75 mls/hr IV .[id number] [facility] Rx#:[id number] ceFAZolin 2 gm In Sodium 50 Chloride 0.9% 50 ml @ 100 mls/hr IVPB ONCE ONE Rx# :[id number] pressure bag 6 18 Intake, IV Titration 166.953 132.828 Amount Heparin Sod,Pork in 0.45% 166.953 NaCl 25,000 unit In 0.45 % NaCl 1 250ml.bag @ 10.5 UNITS/KG/HR 10.002 mls/ hr IV .Q24H [facility] Rx#: [id number] Norepinephrine 4 mg In 132.828 Sodium Chloride 0.9% 250 ml @ 0.03 MCG/KG/MIN 10. 888 mls/hr IV .[id number] [facility] Rx#:[id number] Output: Urine 0 0 Other: Voiding Method Toilet Urinal ABP, PAP, CO, CI - Last Documented Arterial Blood Pressure 135/39 - Labs CBC & Chem 7: 07/16/24 07:04 07/16/24 07:04 Labs: Abnormal Lab Results - Last 24 Hours (Table) 07/15/24 07/15/24 07/15/24 Range/Units 09:31 16:05 16:06 RBC (4.30-5.90) m/uL Hgb (13.0-17.5) gm/dL Hct (39.0-53.0) % Plt Count (150-450) k/uL Sodium (137-145) mmol/L Potassium (3.5-5.1) mmol/L Chloride (98-107) mmol/L BUN (9-20) mg/dL Creatinine (0.66-1.25) mg/dL Glucose (74-99) mg/dL POC Glucose (mg/dL) 40 L* 49 L* (70-110) mg/dL Calcium (8.4-10.2) mg/dL AST (17-59) U/L Troponin I 9.750 H* (0.000-0.034) ng/mL 07/15/24 07/15/24 07/16/24 Range/Units 16:36 20:18 06:25 RBC (4.30-5.90) m/uL Hgb (13.0-17.5) gm/dL Hct (39.0-53.0) % Plt Count (150-450) k/uL Sodium (137-145) mmol/L Potassium (3.5-5.1) mmol/L Chloride (98-107) mmol/L BUN (9-20) mg/dL Creatinine (0.66-1.25) mg/dL Glucose (74-99) mg/dL POC Glucose (mg/dL) 69 L 184 H 198 H (70-110) mg/dL Calcium (8.4-10.2) mg/dL AST (17-59) U/L Troponin I (0.000-0.034) ng/mL 07/16/24 07/16/24 Range/Units 07:04 07:04 RBC 3.16 L (4.30-5.90) m/uL Hgb 10.5 L (13.0-17.5) gm/dL Hct 31.5 L (39.0-53.0) % Plt Count 130 L (150-450) k/uL Sodium 134 L (137-145) mmol/L Potassium 5.8 H (3.5-5.1) mmol/L Chloride 92 L (98-107) mmol/L BUN 45 H (9-20) mg/dL Creatinine 6.16 H (0.66-1.25) mg/dL Glucose 169 H (74-99) mg/dL POC Glucose (mg/dL) (70-110) mg/dL Calcium 8.1 L (8.4-10.2) mg/dL AST 69 H (17-59) U/L Troponin I (0.000-0.034) ng/mL
--- NOTE | 2024-07-16 08:33 | P.PN ---
Subjective Patient is seen in follow-up for end-stage renal disease. He is maintained on hemodialysis on Tuesday schedule. On Levophed. Has temporary pacemaker. Denies chest pain or shortness of breath. Vital signs are stable. General: No acute distress. HEENT: Head exam is unremarkable. On nasal cannula. LUNGS: No audible rhonchi or wheezes. HEART: Paced rhythm. ABDOMEN: No distention. EXTREMITITES: Trace edema. Objective - Vital Signs Vital signs: Vital Signs Temp 98.9 F 07/16/24 04:00 Pulse 60 07/16/24 08:00 Resp 17 07/16/24 08:00 BP 105/49 07/16/24 08:00 Pulse Ox 97 07/16/24 08:00 FiO2 Intake & Output 07/15/24 07/16/24 07/16/24 18:59 06:59 18:59 Intake Total 489.953 410.828 58.47 Output Total 0 0 Balance 489.953 410.828 58.47 Weight 100.6 kg Intake: IV 323 278 20 KVO 110 20 Sodium Chloride 0.9% 1, 150 150 000 ml In Empty Bag 1 bag @ 75 mls/hr IV .[id number] [facility] Rx#:[id number] ceFAZolin 2 gm In Sodium 50 Chloride 0.9% 50 ml @ 100 mls/hr IVPB ONCE ONE Rx# :[id number] pressure bag 6 18 Intake, IV Titration 166.953 132.828 38.47 Amount Heparin Sod,Pork in 0.45% 166.953 NaCl 25,000 unit In 0.45 % NaCl 1 250ml.bag @ 10.5 UNITS/KG/HR 10.002 mls/ hr IV .Q24H [facility] Rx#: [id number] Norepinephrine 4 mg In 132.828 38.47 Sodium Chloride 0.9% 250 ml @ 0.03 MCG/KG/MIN 10. 888 mls/hr IV .[id number] [facility] Rx#:[id number] Output: Urine 0 0 Other: Voiding Method Toilet Urinal ABP, PAP, CO, CI - Last Documented Arterial Blood Pressure 135/39 - Labs CBC & Chem 7: 07/16/24 07:04 07/16/24 07:04 Labs: Abnormal Lab Results - Last 24 Hours (Table) 07/15/24 07/15/24 07/15/24 Range/Units 09:31 16:05 16:06 RBC (4.30-5.90) m/uL Hgb (13.0-17.5) gm/dL Hct (39.0-53.0) % Plt Count (150-450) k/uL Sodium (137-145) mmol/L Potassium (3.5-5.1) mmol/L Chloride (98-107) mmol/L BUN (9-20) mg/dL Creatinine (0.66-1.25) mg/dL Glucose (74-99) mg/dL POC Glucose (mg/dL) 40 L* 49 L* (70-110) mg/dL Calcium (8.4-10.2) mg/dL AST (17-59) U/L Troponin I 9.750 H* (0.000-0.034) ng/mL 07/15/24 07/15/24 07/16/24 Range/Units 16:36 20:18 06:25 RBC (4.30-5.90) m/uL Hgb (13.0-17.5) gm/dL Hct (39.0-53.0) % Plt Count (150-450) k/uL Sodium (137-145) mmol/L Potassium (3.5-5.1) mmol/L Chloride (98-107) mmol/L BUN (9-20) mg/dL Creatinine (0.66-1.25) mg/dL Glucose (74-99) mg/dL POC Glucose (mg/dL) 69 L 184 H 198 H (70-110) mg/dL Calcium (8.4-10.2) mg/dL AST (17-59) U/L Troponin I (0.000-0.034) ng/mL 07/16/24 07/16/24 Range/Units 07:04 07:04 RBC 3.16 L (4.30-5.90) m/uL Hgb 10.5 L (13.0-17.5) gm/dL Hct 31.5 L (39.0-53.0) % Plt Count 130 L (150-450) k/uL Sodium 134 L (137-145) mmol/L Potassium 5.8 H (3.5-5.1) mmol/L Chloride 92 L (98-107) mmol/L BUN 45 H (9-20) mg/dL Creatinine 6.16 H (0.66-1.25) mg/dL Glucose 169 H (74-99) mg/dL POC Glucose (mg/dL) (70-110) mg/dL Calcium 8.1 L (8.4-10.2) mg/dL AST 69 H (17-59) U/L Troponin I (0.000-0.034) ng/mL Assessment and Plan Plan: Assessment: 1. End-stage renal disease maintained on hemodialysis on Tuesday schedule. 2. Hyperkalemia secondary to chronic kidney disease and Entresto. 3. Acute non-ST elevated [place] with history of coronary artery disease status post CABG and cardiac stenting. Underwent balloon angioplasty July 15, 2024. 4. Aortic stenosis. 5. Chronic kidney disease mineral bone disease. Plan: Showed hemodialysis treatment today and another treatment tomorrow per his outpatient schedule. Wean Levophed.
[2024-07-16] MEDS: ATORVASTATIN 80 MG TAB PO SCH (09:39)
[2024-07-16] MEDS: CALCIUM GLUCONATE IN NACL 1 GM in SALINE 1 100ML.BAG IVPB ONE (10:47)
[2024-07-16 11:19] LABS: Glucose,Whole Blood 148 mg/dL (70-110)
[2024-07-16] MEDS: GABAPENTIN 100 MG CAP PO STA (13:40)
[2024-07-16] MEDS: HYDROmorphone 1 MG/ML 1 ML SYRINGE IVP PRN (13:55)
--- NOTE | 2024-07-16 15:05 | P.PN ---
Subjective Progress Note Date: 07/16/24 Patient is a 73-year-old male with a past medical history significant for HFrEF, coronary artery disease with extensive cardiac history including CABG x 2 and cardiac catheterization with multiple stents, ESRD on hemodialysis (TThSa), hypertension, COPD, hyperlipidemia, insulin-dependent diabetes mellitus, and obstructive sleep apnea presented to the emergency department with a chief complaint of chest pain. He was discharged from [facility] yesterday for the same symptoms. He states that his chest pain started about 2.5 hours into dialysis and an ambulance was called. He denies taking any nitroglycerin. He states that the chest pain is middle to the left sternal chest pain that he gets almost daily, he usually the chest pain starts when he exerts himself but sometimes it occurs at rest. He rates the episodes of chest pain as sharp in the middle/left chest. The episode at dialysis was associated with lightheadedness and heaviness in the face. All of the symptoms have resolved at this time. Currently denies fever, chills, nausea, vomiting, abdominal pain, dyspnea, diaphoresis. Initial EKG: Sinus rhythm with first-degree AV block, left ventricular hypertrophy, right bundle branch block (QRS 168ms). Initial chest x-ray: No evidence of pleural effusion, focal consolidation, or pneumothorax; cardiac mediastinal silhouette enlarged and stable; airspace opacities projecting over the spine not seen on prior. Initial labs: WBC 4.2, RBC 3.3, hemoglobin 10.8, hematocrit 31.8, platelets 149, sodium 137, potassium 3.7, chloride 97, CO2 31, BUN 30, creatinine 3.66, glucose 114, troponin X1 0.292, BNP 29,700. Initial vitals: T 97.3 F, MO 82 bpm, RR 26, BP 130/63, O2 sat of 100% on room air. 07/16. Patient seen and examined laying comfortably in bed. Yesterday he underwent cardiac catheterization due to complaint of chest pain, elevated troponin (9.750), and now has transcutaneous pacer. Pressors have been turned off. He endorses left arm weakness. Denies current chest pain, dyspnea, fever, nausea, vomiting. Pertinent positives and negatives discussed above, a complete review of systems was performed and all the other systems were negative. Physical examination: Vital signs reviewed General: Nontoxic, no distress, appears stated age, well-appearing Derm: Warm, dry, intact Head: Atraumatic, normocephalic, symmetric Eyes: EOMI, anicteric sclera Mouth: No lip lesion, mucus membranes moist Cardiovascular: S1-S2 regular, systolic murmur Lungs: CTA bilateral, no rhonchi, no rales, no accessory muscle use Abdominal: Soft, non-tender to palpation Extremities: No cyanosis, clubbing; trace edema bilaterally Neuro: Alert, oriented x 3, gross neurological examination did not reveal any focal deficits. Cranial nerves II to XII grossly intact. Psych: Appropriate affect and mood Assessment and Plan: Patient is a 73-year-old male with a past medical history significant for HFrEF, coronary artery disease with extensive cardiac history including CABG x 2 and cardiac catheterization with multiple stents, ESRD on hemodialysis (TThSa), hypertension, COPD, hyperlipidemia, insulin-dependent diabetes mellitus, and obstructive sleep apnea admitted for acute NSTEMI. heart cath, pacing, nstemi, av block Active #. Acute NSTEMI, status post heart catheterization day 1 Monitor vital signs Heparin drip Monitor APTT Monitor for bleeding Aspirin 81 mg PO daily Brilinta 90 mg PO twice daily Ezetimibe 10 mg PO daily Cardiology consulted #. Cardiogenic shock, secondary to NSTEMI and complete AV block Normal saline #. Hypocalcemia Calcium gluconate 1 g #. Hyperkalemia Hemodialysis today #. Left arm weakness and numbness CT head Chronic #. ESRD Nephrology consulted for management of dialysis Dialysis scheduled for today #. HFrEF, not in acute exacerbation, EF 45% Continue home medications #. Hypertension Monitor vital signs Continue home medications #. Insulin-dependent diabetes mellitus Continue insulin pump Accu-Cheks ACHS Monitor for hypoglycemia #. COPD, not in acute exacerbation Continue nebulizer treatments every 4 hours as needed for wheezing/shortness of breath Maintain SpO2 >90% Continue home medications #. History of CABG x 2 and multiple stents Continue home medications #. Hyperlipidemia Continue home medications #. BPH Continue home medications F: None E: Replete if required N: Heart healthy diet A: Ambulatory DVT prophylaxis: Heparin drip Code status: Full code Anticipated discharge place: Home I saw and evaluated the patient during the singletary and critical portions of this encounter, and discussed the case in detail with the resident author of this not e, I agree with the Assessment and Plan, and my changes, if any, are highlighted in blue. Objective - Vital Signs Vital signs: Vital Signs Temp 98.9 F 07/16/24 04:00 Pulse 54 L 07/16/24 06:30 Resp 12 07/16/24 06:30 BP 123/62 07/16/24 06:30 Pulse Ox 96 07/16/24 06:30 FiO2 Intake & Output 07/15/24 07/15/24 07/16/24 06:59 18:59 06:59 Intake Total 76.682 489.953 410.828 Output Total 0 Balance 76.682 489.953 410.828 Weight 100.6 kg Intake: IV 323 278 KVO 110 Sodium Chloride 0.9% 1, 150 150 000 ml In Empty Bag 1 bag @ 75 mls/hr IV .[id number] [facility] Rx#:[id number] ceFAZolin 2 gm In Sodium 50 Chloride 0.9% 50 ml @ 100 mls/hr IVPB ONCE ONE Rx# :[id number] pressure bag 6 18 Intake, IV Titration 76.682 166.953 132.828 Amount Heparin Sod,Pork in 0.45% 76.682 166.953 NaCl 25,000 unit In 0.45 % NaCl 1 250ml.bag @ 10.5 UNITS/KG/HR 10.002 mls/ hr IV .Q24H [facility] Rx#: [id number] Norepinephrine 4 mg In 132.828 Sodium Chloride 0.9% 250 ml @ 0.03 MCG/KG/MIN 10. 888 mls/hr IV .[id number] [facility] Rx#:[id number] Output: Urine 0 Other: Voiding Method Toilet Urinal ABP, PAP, CO, CI - Last Documented Arterial Blood Pressure 135/39 - Labs CBC & Chem 7: 07/16/24 07:04 07/16/24 07:04 Labs: Abnormal Lab Results - Last 24 Hours (Table) 07/15/24 07/15/24 07/15/24 Range/Units 09:31 16:05 16:06 POC Glucose (mg/dL) 40 L* 49 L* (70-110) mg/dL Troponin I 9.750 H* (0.000-0.034) ng/mL 12/15/24 12/15/24 12/16/24 Range/Units 16:36 20:18 06:25 POC Glucose (mg/dL) 69 L 184 H 198 H (70-110) mg/dL Troponin I (0.000-0.034) ng/mL
[2024-07-16 15:42] LABS: Glucose,Whole Blood 244 mg/dL (70-110)
--- NOTE | 2024-07-16 15:44 | P.GSCN ---
History of Present Illness Consult date: 07/16/24 Reason for Consult: Complains of burning sensation to bilateral hands Requesting physician: Simba Posey History of present illness: This is a pleasant 73-year-old male known to vascular surgical services with a history of end-stage renal disease on hemodialysis. Initially came in on 07/14/2024 with complaints of chest pain. He underwent cardiac cath with temporary pacer. Apparently patient was complaining of bilateral hands and fingertips with feeling of burning and feeling like they are hess bit. He does have diabetes mellitus with peripheral neuropathy states left might be a little bit worse than the right. Vascular surgery was consulted for pain to bilateral hands. Patient has a left upper extremity loop graft and was recently seen by vascular surgery for thrombosed loop graft status post venogram and femoral mechanical thrombectomy with balloon angioplasty on 06/20/[address] Tomlinson. Patient states he has pain on the left from the wrist down to the fingertips. States that it feels like a burning sensation like his fingers were hess bitten. He was currently undergoing hemodialysis without any complications from his left upper extremity loop graft. He denies any pain up his arm. He has full range of motion of bilateral upper extremities. Grasp is good. He is nontender to palpation. Patient has bilateral tremors, worse currently on the left. Is currently on gabapentin 100 mg twice daily. Patient is admitted in the ICU on pressors, currently on a low-dose of Levophed. Review of Systems A 14 point review systems was completed all pertinent positives and negatives as stated in the HPI. Past Medical History Past Medical History: Blood Disorder, Coronary Artery Disease (CAD), Chest Pain / Angina, Heart Failure, COPD, Diabetes Mellitus, Dialysis, Hearing Disorder / Deafness, Hyperlipidemia, Hypertension, Myocardial Infarction (OK), Osteoarthritis (OA), Renal Disease, Sleep Apnea/CPAP/BIPAP Additional Past Medical History / Comment(s): has insulin pump and contiunuous blood glucose monitor,fell at home on Tuesday10-10-23"got dizzy"-no injury,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. Chronic renal failure, dialysis [facility] normally. Patient has insulin pump. Has CPAP, occasionally uses. Neuropathy in feet and hands. Poor hearing. Last Myocardial Infarction Date:: History of Any Multi-Drug Resistant Organisms: None Reported Past Surgical History: Cholecystectomy, Coronary Bypass/CABG, Heart Catheterizat ion, Heart Catheterization With Stent, Orthopedic Surgery Additional Past Surgical History / Comment(s): Shoulder surgery-no hardware, hemorrhoidectomy, eye surgery,4 cardiac stents,AV fistula left forearm, double vessle CABG 10/17/23 Past Anesthesia/Blood Transfusion Reactions: No Reported Reaction Additional Past Anesthesia/Blood Transfusion Reaction / Comm: Never had a blood transfusion. Date of Last Stent Placement:: 2004,2014,2023 Smoking Status: Never smoker - Past Family History Father Family Medical History: Cancer Additional Family Medical History / Comment(s): Bladder cancer. Mother Family Medical History: Cancer, Diabetes Mellitus Additional Family Medical History / Comment(s): Pancreatic cancer. Medications and Allergies Home Medications Medication Instructions Recorded Confirmed Type Ezetimibe [Zetia] 10 mg PO DAILY 05/19/16 07/14/24 History Ferrous Sulfate [Iron (65 MG 325 mg PO DAILY 05/19/16 07/14/24 History Elemental)] Insulin Aspart (For Pump) [NovoLOG 0.01 unit SQ-PUMP CONTINUOUS 05/28/18 07/14/24 History (For Pump)] Pramipexole [Mirapex] 0.5 mg PO BID PRN 05/02/19 07/14/24 History Albuterol Inhaler [Ventolin Hfa 2 puff INHALATION RT-Q4H PRN 08/10/21 07/14/24 History Inhaler] Aspirin EC [Ecotrin Low Dose] 81 mg PO DAILY 02/21/22 07/14/24 History Glucagon Emergency Kit 1 mg IM ONCE PRN 02/21/22 07/14/24 History Escitalopram [Lexapro] 10 mg PO DAILY 01/01/23 07/14/24 History ALPRAZolam [Xanax] 0.5 mg PO HS PRN 06/17/23 07/14/24 History Cholecalciferol [Vitamin D3 (25 50 mcg PO DAILY 06/17/23 07/14/24 History Mcg = 1000 Iu)] Tamsulosin [Flomax] 0.4 mg PO HS 06/17/23 07/14/24 History Cetirizine HCl [Zyrtec] 10 mg PO DAILY 09/22/23 07/14/24 History Folic Acid/Vit B Complex and C 0.8 mg PO DAILY 09/22/23 07/14/24 History [Nephro-Pooja Tablet] Torsemide [Demadex] 40 mg PO SUMOWEFR 09/22/23 07/14/24 History Clopidogrel [Plavix] 75 mg PO DAILY #30 tab 10/24/23 07/14/24 Rx Rosuvastatin [Crestor] 10 mg PO HS 06/07/24 07/14/24 History Topiramate [Topamax] 25 mg PO BID 06/07/24 07/14/24 History Metoprolol Tartrate [Lopressor] 25 mg PO BID 30 Days #60 tab 06/10/24 07/14/24 Rx Sacubitril/Valsartan [Entresto 24 1 tab PO BID 06/19/24 07/14/24 History mg-26 mg Tablet] Nitroglycerin Sl Tabs [Nitrostat] 0.4 mg SL Q5M PRN 07/04/24 07/14/24 History Midodrine [ProAmatine] 10 mg PO AC-TID 30 Days #90 tab 07/06/24 07/14/24 Rx Ranolazine [Ranexa] 1,000 mg PO BID 30 Days #120 tab 07/06/24 07/14/24 Rx Isosorbide Mononitrate ER [Imdur] 30 mg PO BID #60 tab 07/13/24 07/14/24 Rx Allergies Allergy/AdvReac Type Severity Reaction Status Date / Time zolpidem [From Ambien] Allergy Hallucinati Verified 07/14/24 15:33 ons atorvastatin [From Lipitor] AdvReac jt and Verified 07/14/24 15:33 muscle pain baclofen AdvReac caused a Verified 07/14/24 15:33 fall Surgical - Exam Vital Signs Temp Pulse Resp BP Pulse Ox 97.3 F L 82 26 H 130/63 100 07/14/24 10:41 07/14/24 10:41 07/14/24 10:41 07/14/24 10:41 07/14/24 10:41 General appearance: The patient is alert, oriented, appears in no acute distress. HET: Head is normocephalic and atraumatic. Pupils are equal and reactive. Neck: Supple. Heart: Regular. Lungs: Equal expansion, normal respiratory effort. Abdomen: Soft, nontender, nondistended. Extremities: Normal skin color and turgor. Bilateral hands warm to the touch, good capillary refill, palpable radial pulses. Left upper extremity with loop graft with palpable thrill. Neurological: No focal deficits. Strength and sensation are grossly intact. T remors in bilateral hands. Results - Labs 07/16/24 07:04 07/16/24 07:04 Abnormal Lab Results - Last 24 Hours (Table) 07/15/24 07/15/24 07/15/24 Range/Units 09:31 16:05 16:06 RBC (4.30-5.90) m/uL Hgb (13.0-17.5) gm/dL Hct (39.0-53.0) % Plt Count (150-450) k/uL Sodium (137-145) mmol/L Potassium (3.5-5.1) mmol/L Chloride (98-107) mmol/L BUN (9-20) mg/dL Creatinine (0.66-1.25) mg/dL Glucose (74-99) mg/dL POC Glucose (mg/dL) 40 L* 49 L* (70-110) mg/dL Calcium (8.4-10.2) mg/dL AST (17-59) U/L Troponin I 9.750 H* (0.000-0.034) ng/mL 07/15/24 07/15/24 07/16/24 Range/Units 16:36 20:18 06:25 RBC (4.30-5.90) m/uL Hgb (13.0-17.5) gm/dL Hct (39.0-53.0) % Plt Count (150-450) k/uL Sodium (137-145) mmol/L Potassium (3.5-5.1) mmol/L Chloride (98-107) mmol/L BUN (9-20) mg/dL Creatinine (0.66-1.25) mg/dL Glucose (74-99) mg/dL POC Glucose (mg/dL) 69 L 184 H 198 H (70-110) mg/dL Calcium (8.4-10.2) mg/dL AST (17-59) U/L Troponin I (0.000-0.034) ng/mL 07/16/24 07/16/24 Range/Units 07:04 07:04 RBC 3.16 L (4.30-5.90) m/uL Hgb 10.5 L (13.0-17.5) gm/dL Hct 31.5 L (39.0-53.0) % Plt Count 130 L (150-450) k/uL Sodium 134 L (137-145) mmol/L Potassium 5.8 H (3.5-5.1) mmol/L Chloride 92 L (98-107) mmol/L BUN 45 H (9-20) mg/dL Creatinine 6.16 H (0.66-1.25) mg/dL Glucose 169 H (74-99) mg/dL POC Glucose (mg/dL) (70-110) mg/dL Calcium 8.1 L (8.4-10.2) mg/dL AST 69 H (17-59) U/L Troponin I (0.000-0.034) ng/mL Diabetes panel 07/16/24 Range/Units 07:04 Sodium 134 L (137-145) mmol/L Potassium 5.8 H (3.5-5.1) mmol/L Chloride 92 L (98-107) mmol/L Carbon Dioxide 28 (22-30) mmol/L BUN 45 H (9-20) mg/dL Creatinine 6.16 H (0.66-1.25) mg/dL Glucose 169 H (74-99) mg/dL Calcium 8.1 L (8.4-10.2) mg/dL AST 69 H (17-59) U/L ALT 27 (4-49) U/L Alkaline Phosphatase 125 (38-126) U/L Total Protein 7.1 (6.3-8.2) g/dL Albumin 4.1 (3.5-5.0) g/dL Calcium panel 07/16/24 Range/Units 07:04 Calcium 8.1 L (8.4-10.2) mg/dL Albumin 4.1 (3.5-5.0) g/dL Pituitary panel 07/16/24 Range/Units 07:04 Sodium 134 L (137-145) mmol/L Potassium 5.8 H (3.5-5.1) mmol/L Chloride 92 L (98-107) mmol/L Carbon Dioxide 28 (22-30) mmol/L BUN 45 H (9-20) mg/dL Creatinine 6.16 H (0.66-1.25) mg/dL Glucose 169 H (74-99) mg/dL Calcium 8.1 L (8.4-10.2) mg/dL Adrenal panel 07/16/24 Range/Units 07:04 Sodium 134 L (137-145) mmol/L Potassium 5.8 H (3.5-5.1) mmol/L Chloride 92 L (98-107) mmol/L Carbon Dioxide 28 (22-30) mmol/L BUN 45 H (9-20) mg/dL Creatinine 6.16 H (0.66-1.25) mg/dL Glucose 169 H (74-99) mg/dL Calcium 8.1 L (8.4-10.2) mg/dL Total Bilirubin 0.8 (0.2-1.3) mg/dL AST 69 H (17-59) U/L ALT 27 (4-49) U/L Alkaline Phosphatase 125 (38-126) U/L Total Protein 7.1 (6.3-8.2) g/dL Albumin 4.1 (3.5-5.0) g/dL Assessment and Plan Assessment: 1. Pain in bilateral hands/fingertips likely peripheral neuropathy which may be increased secondary to pressor support 2. End-stage renal disease on hemodialysis with left upper extremity loop graft 3. Chest pain, acute coronary syndrome status post cardiac catheterization and temporary pacer 4. Diabetes mellitus with peripheral neuropathy 5. Hand tremors Plan: Patient receiving hemodialysis without any complications from left upper extremity loop graft. Patient has full range of motion, warm fingertips with good capillary refill and palpable pulses. Bilateral fingertip pain likely secondary to patient's peripheral neuropathy which may be increased secondary to pressor support. Increase gabapentin to 300 mg twice daily, can consider increasing it to 3 times daily. Thank you for this consultation. We will continue to follow. The impression and plan of care has been dictated as directed. Dr. Amador I performed a history and examination of this patient, discussed the same with the dictator. I agree with the dictator's note ,documented as a scribe. Any additional findings or plans will be noted.
[2024-07-16 17:00] LABS: Glucose,Whole Blood 242 mg/dL (70-110)
--- NOTE | 2024-07-16 17:22 | CA ---
Transthoracic Echo Report Name: Phan Luciano Age: 73 Gender: M : 1950 Exam Date: 07/16/2024 14:13 Exam Location: [facility] Ht (in): 68 Wt (lb): 221 Ordering Physician: Donnell Radford MD ([id number]) Attending/Referring Phys: Revenue Accounting Manager Naye Torres RDCS Procedure CPT: Indications: assess heart Cardiac Hx: To evaluate LV function Technical Quality: Technically difficult study Contrast 1: Definity Total Dose (mL): 1 Contrast 2: Total Dose (mL): MEASUREMENTS (Male / Female) Normal Values 2D ECHO LV Diastolic Diameter PLAX 5.8 cm 4.2 - 5.9 / 3.9 - 5.3 cm LV Systolic Diameter PLAX 4.5 cm IVS Diastolic Thickness 1.1 cm 0.6 - 1.0 / 0.6 - 0.9 cm LVPW Diastolic Thickness 1.1 cm 0.6 - 1.0 / 0.6 - 0.9 cm LV Relative Wall Thickness 0.4 LV Diastolic Volume MOD BP 136.9 cm??? 67 - 155 / 56 - 104 cm??? LV Systolic Volume MOD BP 83.5 cm??? 22 - 58 / 19 - 49 cm??? LV Ejection Fraction MOD BP 39.0 % >= 55 % LV Cardiac Index MOD BP 1438.3 cm???/min???m??? LV Diastolic Volume MOD 4C 136.0 cm??? LV Systolic Volume MOD 4C 72.3 cm??? LV Ejection Fraction MOD 4C 46.8 % LV Cardiac Index MOD 4C 1712.8 cm???/min???m??? LV Diastolic Length 4C 8.9 cm LV Systolic Length 4C 8.2 cm LV Diastolic Volume MOD 2C 132.8 cm??? LV Systolic Volume MOD 2C 96.3 cm??? LV Ejection Fraction MOD 2C 27.5 % LV Cardiac Index MOD 2C 982.3 cm???/min???m??? LV Diastolic Length 2C 8.5 cm LV Systolic Length 2C 8.0 cm M-MODE LV Diastolic Diameter MM 7.1 cm 4.2 - 5.9 / 3.9 - 5.3 cm LV Systolic Diameter MM 5.4 cm LV Cardiac Index MM Teich 3228.1 cm???/min???m??? IVS Diastolic Thickness MM 0.9 cm 0.6 - 1.0 / 0.6 - 0.9 cm LVPW Diastolic Thickness MM 1.3 cm 0.6 - 1.0 / 0.6 - 0.9 cm LV Relative Wall Thickness MM 0.3 0.24 - 0.42 / 0.22 - 0.42 LV Mass Index MM 170.9 g/m??? 49 - 115 / 43 - 95 g/m??? DOPPLER AV Peak Velocity 395.8 cm/s AV Peak Gradient 62.7 mmHg AV Mean Velocity 272.9 cm/s AV Mean Gradient 33.5 mmHg AV Velocity Time Integral 85.6 cm LVOT Peak Velocity 114.8 cm/s LVOT Peak Gradient 5.3 mmHg LVOT Velocity Time Integral 24.8 cm MV Peak Velocity 150.9 cm/s MV Peak Gradient 9.1 mmHg MV Mean Velocity 81.6 cm/s MV Mean Gradient 3.3 mmHg MV Velocity Time Integral 48.4 cm TR Peak Velocity 269.5 cm/s TR Peak Gradient 29.0 mmHg Right Atrial Pressure 20.0 mmHg Pulmonary Artery Systolic Pressu 49.0 mmHg Right Ventricular Systolic Press 49.0 mmHg FINDINGS Left Ventricle Left ventricular ejection fraction is estimated at 40-45 %. Severely increased left ventricular mass. Mildly increased septal wall thickness. Mildly increased posterior wall thickness. Mildly decreased fractional shortening. Mildly decreased midwall fractional shortening. Severely increased left ventricular diastolic diameter. Severely increased left ventricular systolic volume. Moderately decreased left ventricular ejection fraction. Right Ventricle Right ventricular dilatation with moderately reduced function. Moderate pulmonary hypertension. Right Atrium Right atrial dilatation. Catheter/pacemaker wire in the right atrial cavity. Left Atrium Left atrial dilatation. Mitral Valve Mitral valve thickened. Mitral annular calcification. No evidence for mitral valve prolapse. Mild mitral stenosis. Moderate mitral regurgitation. Aortic Valve Trileaflet aortic valve. Moderate aortic stenosis with a mean gradient of 34mmHg. Trace aortic regurgitation. Tricuspid Valve Structurally normal tricuspid valve. No tricuspid stenosis. Mild tricuspid regurgitation. Pulmonic Valve Pulmonic valve not well visualized. Pericardium No pericardial effusion. Aorta Aortic root and proximal ascending aorta not well visualized. CONCLUSIONS Mild to moderate LV systolic dysfunction with an ejection fraction of 45% Moderate pulmonary hypertension Moderate mitral regurgitation Moderate to severe aortic stenosis Previewed by: Dr. Chapito Sheets MD (Electronically Signed) Final Date: 16 July 2024 17:22
--- NOTE | 2024-07-16 18:29 | US ---
EXAMINATION TYPE: US venous doppler duplex UE DATE OF EXAM: 07/16/2024 COMPARISON: NONE CLINICAL INDICATION: Male, 73 years old with history of intermittent arm pain; Intermittent arm pain and tingling/shaking. No hx DVT. Patient on thinners TECHNIQUE: Grayscale, color Doppler and spectral Doppler imaging of the upper extremity. SIDE PERFORMED: Bilateral FINDINGS: Exam done portable in the ICU, limited due to stickers/ arm shaking Right Arm: Echoes seen within the lower portion of the IJV (images 41-45) . There are some venous spe ctral waveforms and partially diminished color flow seen in the lower portion where echogenic foci se en. There is color flow and venous spectral wave forms seen in the subclavian vein. Left Arm: Negative for DVT. Unable to visualize left ulnar veins Grayscale, color doppler, spectral doppler imaging performed of the deep veins of the upper extremiti es. IMPRESSION: Please note examination is limited secondary to patient's movement, overlying stickers and portable n ature of exam. 1. No sonographic evidence for occlusive deep venous thrombosis. 2. Echogenic foci noted within the lower portion of the right internal jugular vein may relate to non occlusive partial thrombosis. Normal venous flow is seen in the right subclavian vein. 3. The left ulnar veins were not visualized on exam. [facility], , 07/16/2024 6:27 PM
[2024-07-16 20:48] LABS: Glucose,Whole Blood 176 mg/dL (70-110)
[2024-07-16] MEDS: GABAPENTIN 300 MG CAP PO SCH (23:37)
--- NOTE | 2024-07-17 00:28 | CT ---
EXAMINATION TYPE: CT brain wo con DATE OF EXAM: 07/17/2024 COMPARISON: Prior CT April 01, 2023 CLINICAL INDICATION: Male, 73 years old with history of arm weakness; PHH, arm weakness CT DLP: 1227.5 mGycm Automated exposure control for dose reduction was used. FINDINGS: No acute intracranial hemorrhage or midline shift. Mild ventricular and sulcal prominence is redemons trated. Mild low-attenuation in the periventricular white matter is again seen. Scleral calcification s bilaterally are redemonstrated. There is moderate mucosal thickening in the inferior left maxillary sinus. Paranasal sinuses otherwise are clear. IMPRESSION: NO ACUTE INTRACRANIAL HEMORRHAGE OR MIDLINE SHIFT. IF CLINICAL CONCERN FOR ACUTE STROKE PERSISTS FURTHER INVESTIGATION WITH MRI STUDY MAY BE WARRANTED. [facility], , 07/17/2024 12:24 AM
[2024-07-17 06:23] LABS: Basophils % (A) 0 %; Eosinophils # (A) 0.1 k/uL (0-0.7); Eosinophils % (A) 2 %; HCT 32.4 % (39.0-53.0); HGB 10.4 gm/dL (13.0-17.5); Lymphocytes # (A) 0.9 k/uL (1.0-4.8); Lymphocytes % (A) 13 %; MCH 32.3 pg (25.0-35.0); MCHC 32.2 g/dL (31.0-37.0); MCV 100.2 fL (80.0-100.0); Mean Platelet Volume 8.5; Monocytes # (A) 0.6 k/uL (0-1.0); Monocytes % (A) 10 %; Neutrophils # (A) 4.6 k/uL (1.3-7.7); Neutrophils % (A) 71 %; Platelet Count 146 k/uL (150-450); RBC 3.23 m/uL (4.30-5.90); RDW 13.5 % (11.5-15.5); WBC 6.4 k/uL (3.8-10.6)
[2024-07-17 06:26] LABS: Glucose,Whole Blood 152 mg/dL (70-110)
[2024-07-17 06:39] LABS: African American GFR (CKD) 11 (>60 ml/min/1.73 sqM); Anion Gap 12 mmol/L; Blood Urea Nitrogen 33 mg/dL (9-20); Calcium 8.7 mg/dL (8.4-10.2); Carbon Dioxide 28 mmol/L (22-30); Chloride 94 mmol/L (98-107); Glucose 126 mg/dL (74-99); Non-African American GFR(CKD) 9 (>60 ml/min/1.73 sqM); Potassium 4.8 mmol/L (3.5-5.1); Sodium 134 mmol/L (137-145)
--- NOTE | 2024-07-17 08:07 | P.PN ---
Subjective Progress Note Date: 07/17/24 The patient is a pleasant 73-year-old gentleman with extensive cardiovascular history consistent of CAD with prior CABG and stenting as well as cardiomyopathy and aortic stenosis as well as hypertension and dyslipidemia and end-stage renal disease on dialysis who was admitted to the hospital with acute coronary syndrome and underwent a heart catheterization which revealed patent stent in the left main and patent TIAN to LAD and occluded left circumflex as well as occluded SVG to ramus intermedius and severe in-stent restenosis involving unprotected RCA. I did perform PCI of the RCA. Also I did place a temporary pacemaker because he was bradycardic. July 16, 2024 The patient was seen and evaluated this morning with his currently asymptomatic and he is unstable requiring small dose of norepinephrine. Beside that he still requiring the temporary pacer. I am going to wean the patient back from norepinephrine and monitor the patient for additional 24 hours if he did not recover he might need to have a permanent pacemaker. He is on dual antiplatelet therapy but also is on beta-narcisa and isosorbide mononitrate which I am going to stop and continue dual antiplatelet therapy along with a statin. The physical examination is remarkable for regular rhythm with a systolic murmur at the right upper sternal border with clear breathing sounds bilaterally and no edema was noted in the lower extremities July 17, 2024 The patient was seen and evaluated this morning. He continues to be in complete AV block and depending on the temporary pacemaker. The patient is needed pacemaker. 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 Castle the patient's primary powerhouse tender. Beside that he is still on small dose of norepinephrine. Beside that he is on dual antiplatelet therapy along with a statin. Examination is remarkable for regular rhythm with a systolic murmur at the right and left upper sternal border with clear breathing sounds bilaterally. The patient need to undergo permanent pacemaker. Assessment Acute coronary event CAD as described above Cardiomyopathy Aortic stenosis Multiple comorbid conditions End-stage renal disease on dialysis Plan Continue the current medical regimen Continue dual antiplatelet therapy and statin Continue temporary pacemaker Permanent pacemaker as soon as possible Follow-up with the patient Objective - Vital Signs Vital signs: Vital Signs Temp 98.3 F 07/17/24 04:00 Pulse 61 07/17/24 07:30 Resp 7 L 07/17/24 07:30 BP 75/44 07/17/24 07:30 Pulse Ox 94 L 07/17/24 07:30 FiO2 Intake & Output 07/16/24 07/17/24 07/17/24 18:59 06:59 18:59 Intake Total 689.906 572.046 30 Output Total 2400 Balance -1710.094 572.046 30 Weight 100.6 kg 99.6 kg Intake: IV 180 350 30 KVO 180 350 30 Intake, IV Titration 109.906 222.046 Amount Norepinephrine 4 mg In 109.906 222.046 Sodium Chloride 0.9% 250 ml @ 0.03 MCG/KG/MIN 10. 888 mls/hr IV .[id number] [facility] Rx#:[id number] Hemodialysis 400 Output: Urine 0 Hemodialysis 1400 Hemodialysis Net Amount 1000 Other: Voiding Method Urinal Urinal ABP, PAP, CO, CI - Last Documented Arterial Blood Pressure 135/39 - Labs CBC & Chem 7: 07/17/24 05:42 07/17/24 05:42 Labs: Abnormal Lab Results - Last 24 Hours (Table) 07/16/24 07/16/24 07/16/24 Range/Units 11:15 15:40 16:59 RBC (4.30-5.90) m/uL Hgb (13.0-17.5) gm/dL Hct (39.0-53.0) % MCV (80.0-100.0) fL Plt Count (150-450) k/uL Lymphocytes # (1.0-4.8) k/uL Sodium (137-145) mmol/L Chloride (98-107) mmol/L BUN (9-20) mg/dL Creatinine (0.66-1.25) mg/dL Glucose (74-99) mg/dL POC Glucose (mg/dL) 148 H 244 H 242 H (70-110) mg/dL 07/16/24 07/17/24 07/17/24 Range/Units 20:47 05:42 05:42 RBC 3.23 L (4.30-5.90) m/uL Hgb 10.4 L (13.0-17.5) gm/dL Hct 32.4 L (39.0-53.0) % MCV 100.2 H (80.0-100.0) fL Plt Count 146 L (150-450) k/uL Lymphocytes # 0.9 L (1.0-4.8) k/uL Sodium 134 L (137-145) mmol/L Chloride 94 L (98-107) mmol/L BUN 33 H (9-20) mg/dL Creatinine 5.50 H (0.66-1.25) mg/dL Glucose 126 H (74-99) mg/dL POC Glucose (mg/dL) 176 H (70-110) mg/dL 07/17/24 Range/Units 06:25 RBC (4.30-5.90) m/uL Hgb (13.0-17.5) gm/dL Hct (39.0-53.0) % MCV (80.0-100.0) fL Plt Count (150-450) k/uL Lymphocytes # (1.0-4.8) k/uL Sodium (137-145) mmol/L Chloride (98-107) mmol/L BUN (9-20) mg/dL Creatinine (0.66-1.25) mg/dL Glucose (74-99) mg/dL POC Glucose (mg/dL) 152 H (70-110) mg/dL
--- NOTE | 2024-07-17 09:50 | P.PN ---
Subjective Patient is seen in follow-up for end-stage renal disease. He is maintained on hemodialysis on Tuesday schedule. On Levophed. Has temporary pacemaker. Denies chest pain or shortness of breath. Vital signs are stable. General: No acute distress. HEENT: Head exam is unremarkable. On nasal cannula. LUNGS: No audible rhonchi or wheezes. HEART: Paced rhythm. ABDOMEN: No distention. EXTREMITITES: Trace edema. Objective - Vital Signs Vital signs: Vital Signs Temp 98.3 F 07/17/24 08:00 Pulse 63 07/17/24 08:00 Resp 20 07/17/24 08:00 BP 109/44 07/17/24 08:00 Pulse Ox 97 07/17/24 08:00 FiO2 Intake & Output 07/16/24 07/17/24 07/17/24 18:59 06:59 18:59 Intake Total 689.906 572.046 236.67 Output Total 2400 Balance -1710.094 572.046 236.67 Weight 100.6 kg 99.6 kg Intake: IV 180 350 90 KVO 180 350 90 Intake, IV Titration 109.906 222.046 28.67 Amount Norepinephrine 4 mg In 109.906 222.046 28.67 Sodium Chloride 0.9% 250 ml @ 0.03 MCG/KG/MIN 10. 888 mls/hr IV .[id number] [facility] Rx#:[id number] Oral 118 Hemodialysis 400 Output: Urine 0 Hemodialysis 1400 Hemodialysis Net Amount 1000 Other: Voiding Method Urinal Urinal Urinal ABP, PAP, CO, CI - Last Documented Arterial Blood Pressure 135/39 - Labs CBC & Chem 7: 07/17/24 05:42 07/17/24 05:42 Labs: Abnormal Lab Results - Last 24 Hours (Table) 07/16/24 07/16/24 07/16/24 Range/Units 11:15 15:40 16:59 RBC (4.30-5.90) m/uL Hgb (13.0-17.5) gm/dL Hct (39.0-53.0) % MCV (80.0-100.0) fL Plt Count (150-450) k/uL Lymphocytes # (1.0-4.8) k/uL Sodium (137-145) mmol/L Chloride (98-107) mmol/L BUN (9-20) mg/dL Creatinine (0.66-1.25) mg/dL Glucose (74-99) mg/dL POC Glucose (mg/dL) 148 H 244 H 242 H (70-110) mg/dL 07/16/24 07/17/24 07/17/24 Range/Units 20:47 05:42 05:42 RBC 3.23 L (4.30-5.90) m/uL Hgb 10.4 L (13.0-17.5) gm/dL Hct 32.4 L (39.0-53.0) % MCV 100.2 H (80.0-100.0) fL Plt Count 146 L (150-450) k/uL Lymphocytes # 0.9 L (1.0-4.8) k/uL Sodium 134 L (137-145) mmol/L Chloride 94 L (98-107) mmol/L BUN 33 H (9-20) mg/dL Creatinine 5.50 H (0.66-1.25) mg/dL Glucose 126 H (74-99) mg/dL POC Glucose (mg/dL) 176 H (70-110) mg/dL 07/17/24 Range/Units 06:25 RBC (4.30-5.90) m/uL Hgb (13.0-17.5) gm/dL Hct (39.0-53.0) % MCV (80.0-100.0) fL Plt Count (150-450) k/uL Lymphocytes # (1.0-4.8) k/uL Sodium (137-145) mmol/L Chloride (98-107) mmol/L BUN (9-20) mg/dL Creatinine (0.66-1.25) mg/dL Glucose (74-99) mg/dL POC Glucose (mg/dL) 152 H (70-110) mg/dL Assessment and Plan Plan: Assessment: 1. End-stage renal disease maintained on hemodialysis on Tuesday schedule. 2. Hyperkalemia secondary to chronic kidney disease and Entresto. Improved postdialysis. 3. Acute non-ST elevated SC with history of coronary artery disease status post CABG and cardiac stenting. Underwent balloon angioplasty July 15, 2024. 4. Aortic stenosis. 5. Chronic kidney disease mineral bone disease. Plan: Currently seen while undergoing hemodialysis. Next treatment . Permanent pacemaker placement pending. Add midodrine. Wean Levophed.
--- NOTE | 2024-07-17 10:30 | P.PN ---
Subjective Progress Note Date: 07/17/24 Principal diagnosis: Neuropathy Patient seen and examined today as a follow-up. There getting ready to hook patient up for dialysis. He continues to state that he has bilateral hand numbness tingling burning sensation. Apparently patient had some confusion through the night so they stopped his gabapentin. He denies any pain up his arms. He has full range of motion. Hands are warm. Objective - Vital Signs Vital signs: Vital Signs Temp 98.3 F 07/17/24 08:00 Pulse 63 07/17/24 08:00 Resp 20 07/17/24 08:00 BP 109/44 07/17/24 08:00 Pulse Ox 97 07/17/24 08:00 FiO2 Intake & Output 07/16/24 07/17/24 07/17/24 18:59 06:59 18:59 Intake Total 689.906 572.046 30 Output Total 2400 Balance -1710.094 572.046 30 Weight 100.6 kg 99.6 kg Intake: IV 180 350 30 KVO 180 350 30 Intake, IV Titration 109.906 222.046 Amount Norepinephrine 4 mg In 109.906 222.046 Sodium Chloride 0.9% 250 ml @ 0.03 MCG/KG/MIN 10. 888 mls/hr IV .[id number] [facility] Rx#:[id number] Hemodialysis 400 Output: Urine 0 Hemodialysis 1400 Hemodialysis Net Amount 1000 Other: Voiding Method Urinal Urinal ABP, PAP, CO, CI - Last Documented Arterial Blood Pressure 135/39 - Exam General appearance: The patient is alert, oriented, appears in no acute distress. HET: Head is normocephalic and atraumatic. Neck: Supple. Heart: Regular. Lungs: Equal expansion, normal respiratory effort. Abdomen: Soft, nontender, nondistended. Extremities: Normal skin color and turgor. Palpable radial pulses. Left upper extremity with loop graft, palpable thrill. Good capillary refill bilateral fingertips, warm to the touch. Neurological: No focal deficits. - Labs CBC & Chem 7: 07/17/24 05:42 07/17/24 05:42 Labs: Abnormal Lab Results - Last 24 Hours (Table) 07/16/24 07/16/24 07/16/24 Range/Units 11:15 15:40 16:59 RBC (4.30-5.90) m/uL Hgb (13.0-17.5) gm/dL Hct (39.0-53.0) % MCV (80.0-100.0) fL Plt Count (150-450) k/uL Lymphocytes # (1.0-4.8) k/uL Sodium (137-145) mmol/L Chloride (98-107) mmol/L BUN (9-20) mg/dL Creatinine (0.66-1.25) mg/dL Glucose (74-99) mg/dL POC Glucose (mg/dL) 148 H 244 H 242 H (70-110) mg/dL 07/16/24 07/17/24 07/17/24 Range/Units 20:47 05:42 05:42 RBC 3.23 L (4.30-5.90) m/uL Hgb 10.4 L (13.0-17.5) gm/dL Hct 32.4 L (39.0-53.0) % MCV 100.2 H (80.0-100.0) fL Plt Count 146 L (150-450) k/uL Lymphocytes # 0.9 L (1.0-4.8) k/uL Sodium 134 L (137-145) mmol/L Chloride 94 L (98-107) mmol/L BUN 33 H (9-20) mg/dL Creatinine 5.50 H (0.66-1.25) mg/dL Glucose 126 H (74-99) mg/dL POC Glucose (mg/dL) 176 H (70-110) mg/dL 07/17/24 Range/Units 06:25 RBC (4.30-5.90) m/uL Hgb (13.0-17.5) gm/dL Hct (39.0-53.0) % MCV (80.0-100.0) fL Plt Count (150-450) k/uL Lymphocytes # (1.0-4.8) k/uL Sodium (137-145) mmol/L Chloride (98-107) mmol/L BUN (9-20) mg/dL Creatinine (0.66-1.25) mg/dL Glucose (74-99) mg/dL POC Glucose (mg/dL) 152 H (70-110) mg/dL Assessment and Plan Assessment: 1. Pain in bilateral hands/fingertips likely peripheral neuropathy which may be increased secondary to pressor support 2. End-stage renal disease on hemodialysis with left upper extremity loop graft 3. Chest pain, acute coronary syndrome status post cardiac catheterization and temporary pacer 4. Diabetes mellitus with peripheral neuropathy 5. Hand tremors Plan: Patient receiving hemodialysis without any complications from left upper extremity loop graft. Patient has full range of motion, warm fingertips with good capillary refill and palpable pulses. Bilateral fingertip pain likely sec ondary to patient's peripheral neuropathy which may be increased secondary to pressor support. Continue gabapentin if patient tolerates. There is no indication for any vascular surgical intervention at this time. We will continue to follow. Thank you for this consultation. The impression and plan of care has been dictated as directed. Dr. Amador I performed a history and examination of this patient, discussed the same with the dictator. I agree with the dictator's note ,documented as a scribe. Any additional findings or plans will be noted.
[2024-07-17 11:20] LABS: Glucose,Whole Blood 126 mg/dL (70-110)
--- NOTE | 2024-07-17 11:30 | P.PN ---
Subjective Progress Note Date: 07/17/24 Patient is a 73-year-old male with a past medical history significant for HFrEF, coronary artery disease with extensive cardiac history including CABG x 2 and cardiac catheterization with multiple stents, ESRD on hemodialysis (TThSa), hypertension, COPD, hyperlipidemia, insulin-dependent diabetes mellitus, and obstructive sleep apnea presented to the emergency department with a chief complaint of chest pain. He was discharged from [facility] yesterday for the same symptoms. He states that his chest pain started about 2.5 hours into dialysis and an ambulance was called. He denies taking any nitroglycerin. He states that the chest pain is middle to the left sternal chest pain that he gets almost daily, he usually the chest pain starts when he exerts himself but sometimes it occurs at rest. He rates the episodes of chest pain as sharp in the middle/left chest. The episode at dialysis was associated with lightheadedness and heaviness in the face. All of the symptoms have resolved at this time. Currently denies fever, chills, nausea, vomiting, abdominal pain, dyspnea, diaphoresis. Initial EKG: Sinus rhythm with first-degree AV block, left ventricular hypertrophy, right bundle branch block (QRS 168ms). Initial chest x-ray: No evidence of pleural effusion, focal consolidation, or pneumothorax; cardiac mediastinal silhouette enlarged and stable; airspace opacities projecting over the spine not seen on prior. Initial labs: WBC 4.2, RBC 3.3, hemoglobin 10.8, hematocrit 31.8, platelets 149, sodium 137, potassium 3.7, chloride 97, CO2 31, BUN 30, creatinine 3.66, glucose 114, troponin X1 0.292, BNP 29,700. Initial vitals: T 97.3 F, TX 82 bpm, RR 26, BP 130/63, O2 sat of 100% on room air. 07/17. Patient seen and examined laying comfortably in bed. underwent CTH yesterday and this was negative for acute stroke. Still has temp pacemaker Pertinent positives and negatives discussed above, a complete review of systems was performed and all the other systems were negative. Gen: In NAD, non-toxic HEENT: normocephalic, atraumatic, hearing acuity is intant, mucous membranes moist CVS: perfusing all extremities well, no pitting edema, Respiratory: symmetric chest expansion, no accessory muscle use, GI: soft, NTTP, ND, : no suprapubic tenderness, no CVA tenderness MSK/Derm: no rashes, cyanosis Neuro: CN II-XII intact, no motor weakness, Psych: cooperative, euthymic mood, judgment and insight is intact Assessment and Plan: Patient is a 73-year-old male with a past medical history significant for HFrEF, coronary artery disease with extensive cardiac history including CABG x 2 and cardiac catheterization with multiple stents, ESRD on hemodialysis (TThSa), hypertension, COPD, hyperlipidemia, insulin-dependent diabetes mellitus, and obstructive sleep apnea admitted for acute NSTEMI. heart cath, pacing, nstemi, av block Active #. Acute NSTEMI, status post heart catheterization #. Cardiogenic shock, secondary to NSTEMI and complete AV block Monitor vital signs Heparin drip Monitor APTT Monitor for bleeding Aspirin 81 mg PO daily Brilinta 90 mg PO twice daily Ezetimibe 10 mg PO daily Cardiology consulted #. Hypocalcemia Calcium gluconate 1 g #. Hyperkalemia Hemodialysis today #. Left arm weakness and numbness CT head Chronic #. ESRD Nephrology consulted for management of dialysis Dialysis scheduled for today #. HFrEF, not in acute exacerbation, EF 45% Continue home medications #. Hypertension Monitor vital signs Continue home medications #. Insulin-dependent diabetes mellitus Continue insulin pump Accu-Cheks ACHS Monitor for hypoglycemia #. COPD, not in acute exacerbation Continue nebulizer treatments every 4 hours as needed for wheezing/shortness of breath Maintain SpO2 >90% Continue home medications #. History of CABG x 2 and multiple stents Continue home medications #. Hyperlipidemia Continue home medications #. BPH Continue home medications F: None E: Replete if required N: Heart healthy diet A: Ambulatory DVT prophylaxis: Heparin drip Code status: Full code Anticipated discharge place: Home Objective - Vital Signs Vital signs: Vital Signs Temp 98.3 F 07/17/24 08:00 Pulse 64 07/17/24 11:15 Resp 24 07/17/24 11:15 BP 113/52 07/17/24 11:15 Pulse Ox 98 07/17/24 11:15 FiO2 Intake & Output 07/16/24 07/17/24 07/17/24 18:59 06:59 18:59 Intake Total 689.906 572.046 326.67 Output Total 2400 0 Balance -1710.094 572.046 326.67 Weight 100.6 kg 99.6 kg Intake: IV 180 350 180 KVO 180 350 180 Intake, IV Titration 109.906 222.046 28.67 Amount Norepinephrine 4 mg In 109.906 222.046 28.67 Sodium Chloride 0.9% 250 ml @ 0.03 MCG/KG/MIN 10. 888 mls/hr IV .[id number] [facility] Rx#:[id number] Oral 118 Hemodialysis 400 Output: Urine 0 0 Hemodialysis 1400 Hemodialysis Net Amount 1000 Other: Voiding Method Urinal Urinal Urinal ABP, PAP, CO, CI - Last Documented Arterial Blood Pressure 135/39 - Labs CBC & Chem 7: 07/17/24 05:42 07/17/24 05:42 Labs: Abnormal Lab Results - Last 24 Hours (Table) 07/16/24 07/16/24 07/16/24 Range/Units 15:40 16:59 20:47 RBC (4.30-5.90) m/uL Hgb (13.0-17.5) gm/dL Hct (39.0-53.0) % MCV (80.0-100.0) fL Plt Count (150-450) k/uL Lymphocytes # (1.0-4.8) k/uL Sodium (137-145) mmol/L Chloride (98-107) mmol/L BUN (9-20) mg/dL Creatinine (0.66-1.25) mg/dL Glucose (74-99) mg/dL POC Glucose (mg/dL) 244 H 242 H 176 H (70-110) mg/dL 07/17/24 07/17/24 07/17/24 Range/Units 05:42 05:42 06:25 RBC 3.23 L (4.30-5.90) m/uL Hgb 10.4 L (13.0-17.5) gm/dL Hct 32.4 L (39.0-53.0) % MCV 100.2 H (80.0-100.0) fL Plt Count 146 L (150-450) k/uL Lymphocytes # 0.9 L (1.0-4.8) k/uL Sodium 134 L (137-145) mmol/L Chloride 94 L (98-107) mmol/L BUN 33 H (9-20) mg/dL Creatinine 5.50 H (0.66-1.25) mg/dL Glucose 126 H (74-99) mg/dL POC Glucose (mg/dL) 152 H (70-110) mg/dL 07/17/24 Range/Units 11:19 RBC (4.30-5.90) m/uL Hgb (13.0-17.5) gm/dL Hct (39.0-53.0) % MCV (80.0-100.0) fL Plt Count (150-450) k/uL Lymphocytes # (1.0-4.8) k/uL Sodium (137-145) mmol/L Chloride (98-107) mmol/L BUN (9-20) mg/dL Creatinine (0.66-1.25) mg/dL Glucose (74-99) mg/dL POC Glucose (mg/dL) 126 H (70-110) mg/dL
[2024-07-17] MEDS: MIDODRINE 5 MG TAB PO SCH (12:29)
[2024-07-17] MEDS: fentaNYL (PF) 50 MCG/ML 2 ML AMP IVP ONE (14:19)
[2024-07-17] MEDS: MIDAZOLAM 2 MG/2 ML VIAL IVP ONE (14:19)
[2024-07-17] MEDS: LIDOCAINE 1% INJ 10MG/ML (20 ML MDV) SQ ONE (14:32)
[2024-07-17] MEDS: ceFAZolin 1,000 MG VIAL IVPB ONE (14:37)
[2024-07-17] MEDS ORDERED: ACETAMINOPHEN TAB 325 MG TAB PO PRN (15:07)
[2024-07-17] MEDS: SODIUM CHLORIDE 0.9% 500 ML 500 ML IV ONE (15:34)
[2024-07-17] MEDS: ceFAZolin 1,000 MG in SODIUM CHLORIDE 0.9% IRRIG BTL 250 ML IRRIGATION ONE (15:39)
--- NOTE | 2024-07-17 16:04 | P.PCN ---
Description of Procedure: CARDIOLOGY PROCEDURE NOTE Laundry Technician: Dr. Shiraz Castle Procedure performed: Insertion dual chamber permanent pacemaker Site: Left subclavian Indications: 3rd degree heart block without reversible cause Complications: None Blood Loss: Minimal Description of Procedure: After the risks, benefits, and alternatives of the above-mentioned procedure was explained in detail with the patient, informed consent was obtained. The patient was taken to the cardiac catheterization suite where the left subclavian area was sterily prepped and draped in the usual fashion. One percent lidocaine was used to anesthetize the left subclavian area. Twenty milliliters of Isoview 370 contrast was injected into the left antecubital vein to allow for direct visualization of the left subclavian vein under fluoroscopy. A 1.5 inch incision was made utilizing a #15 blade in the left subclavian site. Hemostasis was made complete. Electrocautery along with digital blunt dissection was utilized to dissect to the level of the pectoralis muscle fascia and create a pocket large enough to accommodate the generator. A thin walled micro puncuture needle was used to cannulate the left subclavian vein. A guide-wire was inserted through the needle into the vascular lumen under fluoroscopic guidance. The needle was removed. Another thin walled micr puncture needle was used to again cannulate the left subclavian vein. A guide-wire was inserted through the needle into the vascular lumen under fluoroscopic guidance. The needle was removed and both guide-wires were attached to the field. A venous sheath and dilator were advanced over the guidewire into the vascular lumen under fluoroscopic guidance. The dilator and guidewire were then removed. A right ventricular bipolar lead was inserted into the sheath and advanced under fluoroscopic guidance into the right ventricle under fluoroscopic guidance. Adequate sensing and pacing thresholds were achieved and the lead was screwed into place in the RV septum as the apex had less favorable numbers. The sheath was then torn away. The lead collar was advanced and anchored into place utilizing #0 silk suture. Next, another venous sheath and dilator were advanced under fluoroscopic guidance into the vascular lumen over the guidewire. After removal of the dilator and guidewire, a right atrial bipolar lead was inserted into this sheath and advanced under fluoroscopic guidance into the right atrium. The lead was positioned into the right atrial appendage. Adequate sensing and pacing thr esholds were then achieved and the lead was screwed into place. The sheath was then torn away. The lead collar was advanced and anchored into place utilizing #0 silk suture. The leads were then inserted into the appropriate position into the generator. They were then secured with the setscrew provided. The leads and generator were inserted into the pocket with the leads posterior. The subcutaneous tissue was approximated utilizing #2.0 and 3.0 vicryl in an interrupted stitch fashion. The dermal layer was approximated utilizing #4.0 vicryl. The area was cleansed with sterile saline and dried. A sterile 4x4 dressing was applied and the patient was transferred to the post catheterization holding area in stable and satisfactory condition. The patient tolerated the procedure well. Generator Data Sql Report Writer: [employer] Brand: [id number] [place] XT DR MRI Model #: [id number] Serial#: [id number] Right Atrial Bipolar Lead Data: Type: Active fixation lead Sql Report Writer: [employer] Model#: 5076-45 Serial Number: [id number] Right Ventricular Bipolar Lead Data: Type: Active fixation lead Sql Report Writer: [employer] Model #: 5076-52 Serial #: [id number] Stimulation Thresholds: Right atrial bipolar lead pacing and sensing thresholds Voltage: 1.0 V Impedance: 399 ohms P-wave sensin.4 mV Right Ventricular bipolar lead pacing and sensing thresholds Pulse Width: 0.4ms Voltage: 1.25 volts Impedance: 591 ohms R-wave sensing: Paced rhythm Parameter Setting: Pacing mode is DDD Lower rate 60 bpm Upper rate 130 bpm Impressions: 1. Successful implantation of a dual chamber permanent pacemaker in the left pectoral site. Plan: 1. Routine post procedure care will be instituted as well as outpatient follow- up surveillance.
[2024-07-17 16:17] LABS: Glucose,Whole Blood 158 mg/dL (70-110)
[2024-07-17 16:17] LABS: Glucose,Whole Blood 157 mg/dL (70-110)
--- NOTE | 2024-07-17 17:14 | XR ---
EXAMINATION TYPE: XR chest 1V portable DATE OF EXAM: 07/17/2024 5:08 PM COMPARISON: Previous chest radius, most recently dated 07/14/2024. CLINICAL INDICATION: Male, 73 years old with history of Lead placement check; [facility] TECHNIQUE: XR chest 1V portable Frontal view of the chest. FINDINGS: Stable cardiomegaly. Possible mild pulmonary vascular congestive changes. Left atrial appendage device. Left chest wall cardiac pacemaker device with leads overlying the region of the right atrium and righ t ventricle. Median sternotomy wires. No acute focal consolidation. No sizable pleural effusion. No pneumothorax. No acute osseous abnormality. IMPRESSION: Interval placement of left chest wall cardiac pacemaker device with leads overlying the region of the right atrium and right ventricle. No pneumothorax. [facility], , 07/17/2024 5:12 PM
[2024-07-17 19:32] LABS: Glucose,Whole Blood 210 mg/dL (70-110)
[2024-07-18 06:00] LABS: HCT 29.2 % (39.0-53.0); HGB 9.7 gm/dL (13.0-17.5); MCH 33.3 pg (25.0-35.0); MCHC 33.4 g/dL (31.0-37.0); MCV 99.7 fL (80.0-100.0); Mean Platelet Volume 8.9; Platelet Count 135 k/uL (150-450); RBC 2.93 m/uL (4.30-5.90); RDW 13.7 % (11.5-15.5); WBC 6.2 k/uL (3.8-10.6)
[2024-07-18 06:21] LABS: African American GFR (CKD) 13 (>60 ml/min/1.73 sqM); Anion Gap 9 mmol/L; Blood Urea Nitrogen 30 mg/dL (9-20); Calcium 8.2 mg/dL (8.4-10.2); Carbon Dioxide 30 mmol/L (22-30); Chloride 95 mmol/L (98-107); Glucose 141 mg/dL (74-99); Non-African American GFR(CKD) 11 (>60 ml/min/1.73 sqM); Potassium 4.1 mmol/L (3.5-5.1); Sodium 134 mmol/L (137-145)
[2024-07-18 06:34] LABS: Glucose,Whole Blood 159 mg/dL (70-110)
--- NOTE | 2024-07-18 09:58 | P.PN ---
Subjective Patient is seen in follow-up for end-stage renal disease. He is maintained on hemodialysis on Tuesday schedule. On Levophed. Tolerated 1 L ultrafiltration yesterday. Vital signs are stable. General: No acute distress. HEENT: Head exam is unremarkable. On nasal cannula. LUNGS: No audible rhonchi or wheezes. HEART: Regular rate and rhythm. ABDOMEN: No distention. EXTREMITITES: Trace edema. Objective - Vital Signs Vital signs: Vital Signs Temp 97.4 F L 07/18/24 08:00 Pulse 96 07/18/24 08:30 Resp 25 H 07/18/24 08:30 BP 98/68 07/18/24 08:30 Pulse Ox 95 07/18/24 08:30 FiO2 Intake & Output 07/17/24 07/18/24 07/18/24 18:59 06:59 18:59 Intake Total 1130.106 442.508 79.762 Output Total 2500 0 0 Balance -1369.894 442.508 79.762 Weight 98.7 kg Intake: IV 320 270 20 KVO 270 220 20 ceFAZolin 2 gm In Sodium 50 Chloride 0.9% 50 ml @ 100 mls/hr IVPB ONCE ONE Rx# :[id number] Intake, IV Titration 192.106 172.508 59.762 Amount Norepinephrine 4 mg In 192.106 172.508 59.762 Sodium Chloride 0.9% 250 ml @ 0.03 MCG/KG/MIN 10. 888 mls/hr IV .[id number] [facility] Rx#:[id number] Oral 118 Hemodialysis 500 Output: Urine 0 0 0 Hemodialysis 1500 Hemodialysis Net Amount 1000 Other: Voiding Method Urinal Urinal ABP, PAP, CO, CI - Last Documented Arterial Blood Pressure 135/39 - Labs CBC & Chem 7: 07/18/24 05:25 07/18/24 05:25 Labs: Abnormal Lab Results - Last 24 Hours (Table) 07/17/24 07/17/24 07/17/24 Range/Units 11:19 16:14 16:15 RBC (4.30-5.90) m/uL Hgb (13.0-17.5) gm/dL Hct (39.0-53.0) % Plt Count (150-450) k/uL Sodium (137-145) mmol/L Chloride (98-107) mmol/L BUN (9-20) mg/dL Creatinine (0.66-1.25) mg/dL Glucose (74-99) mg/dL POC Glucose (mg/dL) 126 H 157 H 158 H (70-110) mg/dL Calcium (8.4-10.2) mg/dL 07/17/24 07/18/24 07/18/24 Range/Units 19:31 05:25 05:25 RBC 2.93 L (4.30-5.90) m/uL Hgb 9.7 L (13.0-17.5) gm/dL Hct 29.2 L (39.0-53.0) % Plt Count 135 L (150-450) k/uL Sodium 134 L (137-145) mmol/L Chloride 95 L (98-107) mmol/L BUN 30 H (9-20) mg/dL Creatinine 4.73 H (0.66-1.25) mg/dL Glucose 141 H (74-99) mg/dL POC Glucose (mg/dL) 210 H (70-110) mg/dL Calcium 8.2 L (8.4-10.2) mg/dL 07/18/24 Range/Units 06:32 RBC (4.30-5.90) m/uL Hgb (13.0-17.5) gm/dL Hct (39.0-53.0) % Plt Count (150-450) k/uL Sodium (137-145) mmol/L Chloride (98-107) mmol/L BUN (9-20) mg/dL Creatinine (0.66-1.25) mg/dL Glucose (74-99) mg/dL POC Glucose (mg/dL) 159 H (70-110) mg/dL Calcium (8.4-10.2) mg/dL Assessment and Plan Plan: Assessment: 1. End-stage renal disease maintained on hemodialysis on Tuesday schedule. 2. Hyperkalemia secondary to chronic kidney disease and Entresto. Improved postdialysis. 3. Acute non-ST elevated OR with history of coronary artery disease status post CABG and cardiac stenting. Underwent balloon angioplasty July 15, 2024. 4. Aortic stenosis. 5. Chronic kidney disease mineral bone disease. 6. Third-degree heart block status post pacemaker placement July 17, 2024. Plan: Hemodialysis tomorrow. Maintain midodrine. Wean Levophed. Nydia held this morning.
[2024-07-18 11:44] LABS: Glucose,Whole Blood 186 mg/dL (70-110)
--- NOTE | 2024-07-18 13:41 | P.PN ---
Subjective Progress Note Date: 07/18/24 Principal diagnosis: Neuropathy Patient seen and examined today as a follow-up. States that his hands and fingers are actually feeling better today. Apparently last night he did have some pain but they gave him Dilaudid. They restarted his gabapentin. He is still on a low-dose of Levophed. No complications yesterday with his loop graft. Objective - Vital Signs Vital signs: Vital Signs Temp 97.4 F L 07/18/24 08:00 Pulse 85 07/18/24 12:30 Resp 24 07/18/24 12:30 BP 92/48 07/18/24 12:30 Pulse Ox 92 L 07/18/24 12:30 FiO2 Intake & Output 07/17/24 07/18/24 07/18/24 18:59 06:59 18:59 Intake Total 1130.106 442.508 452.928 Output Total 2500 0 600 Balance -1369.894 442.508 -147.072 Weight 98.7 kg Intake: IV 320 270 70 KVO 270 220 70 ceFAZolin 2 gm In Sodium 50 Chloride 0.9% 50 ml @ 100 mls/hr IVPB ONCE ONE Rx# :[id number] Intake, IV Titration 192.106 172.508 82.928 Amount Norepinephrine 4 mg In 192.106 172.508 82.928 Sodium Chloride 0.9% 250 ml @ 0.03 MCG/KG/MIN 10. 888 mls/hr IV .[id number] [facility] Rx#:[id number] Oral 118 300 Hemodialysis 500 Output: Urine 0 0 400 Stool 200 Hemodialysis 1500 Hemodialysis Net Amount 1000 Other: Voiding Method Urinal Urinal Urinal # Bowel Movements 1 ABP, PAP, CO, CI - Last Documented Arterial Blood Pressure 135/39 - Exam General appearance: The patient is alert, oriented, appears in no acute distress. HET: Head is normocephalic and atraumatic. Neck: Supple. Heart: Regular. Lungs: Equal expansion, normal respiratory effort. Abdomen: Soft, nontender, nondistended. Extremities: Normal skin color and turgor. Palpable radial pulses. Left upper extremity with loop graft, palpable thrill. Good capillary refill bilateral fingertips, warm to the touch. Neurological: No focal deficits. - Labs CBC & Chem 7: 07/18/24 05:25 07/18/24 05:25 Labs: Abnormal Lab Results - Last 24 Hours (Table) 07/17/24 07/17/24 07/17/24 Range/Units 16:14 16:15 19:31 RBC (4.30-5.90) m/uL Hgb (13.0-17.5) gm/dL Hct (39.0-53.0) % Plt Count (150-450) k/uL Sodium (137-145) mmol/L Chloride (98-107) mmol/L BUN (9-20) mg/dL Creatinine (0.66-1.25) mg/dL Glucose (74-99) mg/dL POC Glucose (mg/dL) 157 H 158 H 210 H (70-110) mg/dL Calcium (8.4-10.2) mg/dL 07/18/24 07/18/24 07/18/24 Range/Units 05:25 05:25 06:32 RBC 2.93 L (4.30-5.90) m/uL Hgb 9.7 L (13.0-17.5) gm/dL Hct 29.2 L (39.0-53.0) % Plt Count 135 L (150-450) k/uL Sodium 134 L (137-145) mmol/L Chloride 95 L (98-107) mmol/L BUN 30 H (9-20) mg/dL Creatinine 4.73 H (0.66-1.25) mg/dL Glucose 141 H (74-99) mg/dL POC Glucose (mg/dL) 159 H (70-110) mg/dL Calcium 8.2 L (8.4-10.2) mg/dL 07/18/24 Range/Units 11:42 RBC (4.30-5.90) m/uL Hgb (13.0-17.5) gm/dL Hct (39.0-53.0) % Plt Count (150-450) k/uL Sodium (137-145) mmol/L Chloride (98-107) mmol/L BUN (9-20) mg/dL Creatinine (0.66-1.25) mg/dL Glucose (74-99) mg/dL POC Glucose (mg/dL) 186 H (70-110) mg/dL Calcium (8.4-10.2) mg/dL Assessment and Plan Assessment: 1. Pain in bilateral hands/fingertips likely peripheral neuropathy which may be increased secondary to pressor support 2. End-stage renal disease on hemodialysis with left upper extremity loop graft 3. Chest pain, acute coronary syndrome status post cardiac catheterization and temporary pacer 4. Diabetes mellitus with peripheral neuropathy 5. Hand tremors Plan: Patient receiving hemodialysis without any complications from left upper extremity loop graft. Patient has full range of motion, warm fingertips with good capillary refill and palpable pulses. Bilateral fingertip pain likely secondary to patient's peripheral neuropathy which may be increased secondary to pressor support. Continue gabapentin if patient tolerates. There is no indication for any vascular surgical intervention at this time. We will continue to follow. Thank you for this consultation. We will sign off at this time. The impression and plan of care has been dictated as directed. Dr. Tomlinson I performed a history and examination of this patient, discussed the same with the dictator. I agree with the dictator's note ,documented as a scribe. Any additional findings or plans will be noted.
[2024-07-18] MEDS ORDERED: HYDROcodone/APAP 5-325MG 1 EACH TAB PO PRN (14:36)
[2024-07-18 15:04] LABS: Glucose,Whole Blood 251 mg/dL (70-110)
--- NOTE | 2024-07-18 15:58 | P.PN ---
Subjective Progress Note Date: 07/18/24 Patient is a 73-year-old male with a past medical history significant for HFrEF, coronary artery disease with extensive cardiac history including CABG x 2 and cardiac catheterization with multiple stents, ESRD on hemodialysis (TThSa), hypertension, COPD, hyperlipidemia, insulin-dependent diabetes mellitus, and obstructive sleep apnea presented to the emergency department with a chief complaint of chest pain. He was discharged from [facility] yesterday for the same symptoms. He states that his chest pain started about 2.5 hours into dialysis and an ambulance was called. He denies taking any nitroglycerin. He states that the chest pain is middle to the left sternal chest pain that he gets almost daily, he usually the chest pain starts when he exerts himself but sometimes it occurs at rest. He rates the episodes of chest pain as sharp in the middle/left chest. The episode at dialysis was associated with lightheadedness and heaviness in the face. All of the symptoms have resolved at this time. Currently denies fever, chills, nausea, vomiting, abdominal pain, dyspnea, diaphoresis. Initial EKG: Sinus rhythm with first-degree AV block, left ventricular hypertrophy, right bundle branch block (QRS 168ms). Initial chest x-ray: No evidence of pleural effusion, focal consolidation, or pneumothorax; cardiac mediastinal silhouette enlarged and stable; airspace opacities projecting over the spine not seen on prior. Initial labs: WBC 4.2, RBC 3.3, hemoglobin 10.8, hematocrit 31.8, platelets 149, sodium 137, potassium 3.7, chloride 97, CO2 31, BUN 30, creatinine 3.66, glucose 114, troponin X1 0.292, BNP 29,700. Initial vitals: T 97.3 F, WI 82 bpm, RR 26, BP 130/63, O2 sat of 100% on room air. 07/16. Patient seen and examined laying comfortably in bed. Yesterday he underwent cardiac catheterization due to complaint of chest pain, elevated troponin (9.750), and now has transcutaneous pacer. Pressors have been turned off. He endorses left arm weakness. Denies current chest pain, dyspnea, fever, nausea, vomiting. 07/17. Patient seen and examined laying comfortably in bed. Underwent CTH yesterday and this was negative for acute stroke. Still has temp pacemaker 07/18. Patient examined lying comfortably in bed. Yesterday he underwent placement of dual-chamber permanent pacemaker. States left arm numbness and weakness is improved. Labs today: WBC 6.2, hemoglobin 9.7, hematocrit 29.2, platelets 135, sodium 134, potassium 4.1, chloride 95, CO2 30, BUN 30, creatinine 4.73, glucose 141, calcium 8.2. Currently on Levophed. Pertinent positives and negatives discussed above, a complete review of systems was performed and all the other systems were negative. Physical examination: Vital signs reviewed General: Nontoxic, no distress, appears stated age, well-appearing Derm: Warm, dry, intact Head: Atraumatic, normocephalic, symmetric Eyes: EOMI, anicteric sclera Mouth: No lip lesion, mucus membranes moist Cardiovascular: S1-S2 regular, systolic murmur Lungs: CTA bilateral, no rhonchi, no rales, no accessory muscle use Abdominal: Soft, non-tender to palpation Extremities: No cyanosis, clubbing, edema. Left hand weakness Neuro: Alert, oriented x 3, gross neurological examination did not reveal any focal deficits. Cranial nerves II to XII grossly intact. Psych: Appropriate affect and mood Assessment and Plan: Patient is a 73-year-old male with a past medical history significant for HFrEF, coronary artery disease with extensive cardiac history including CABG x 2 and cardiac catheterization with multiple stents, ESRD on hemodialysis (TThSa), hypertension, COPD, hyperlipidemia, insulin-dependent diabetes mellitus, and obstructive sleep apnea admitted for acute NSTEMI. Active #. Cardiogenic shock, secondary to NSTEMI and complete AV block #. Acute NSTEMI, status post heart catheterization day 3 #. Status post placement of dual-chamber permanent pacemaker #. Moderate to severe to aortic stenosis Stop Entresto Continue Levophed, wean pressors as tolerated Monitor vital signs Discontinue heparin drip Monitor APTT Monitor for bleeding Aspirin 81 mg PO daily Brilinta 90 mg PO twice daily Ezetimibe 10 mg PO daily Cardiology following #. ICU induced delirium, likely medication related Sleep hygiene Minimize use of opioids and sedatives #. Left arm weakness and numbness CT brainno acute intracranial hemorrhage or midline shift Neurology consulted Resolved #. Hypocalcemia #. Hyperkalemia Chronic #. ESRD Nephrology consulted for management of dialysis Dialysis scheduled for today #. HFrEF, not in acute exacerbation, EF 45% #. Hypertension Hold Entresto and metoprolol due to hypotension Monitor vital signs #. Insulin-dependent diabetes mellitus Insulin sliding scale Accu-Cheks ACHS Monitor for hypoglycemia #. COPD, not in acute exacerbation Continue nebulizer treatments every 4 hours as needed for wheezing/shortness of breath Maintain SpO2 >90% Continue home medications #. History of CABG x 2 and multiple stents Aspirin 81 mg daily Brilinta 90 mg PO twice daily Lipitor 80 mg PO daily Hold Entresto and metoprolol as above #. Hyperlipidemia Lipitor 80 mg PO daily Zetia 10 mg PO daily #. BPH Flomax 0.4 mg PO at bedtime #. Neuropathy Gabapentin 300 mg PO daily F: None E: Replete if required N: Heart healthy diet A: Ambulatory DVT prophylaxis: Subcutaneous heparin three times daily Code status: Full code Anticipated discharge place: Pending clinical course I have seen and evaluated the patient today. Discussed with the resident and agree with the residents finding and plan as documented in the resident's note. Changes highlighted in blue font. Objective - Vital Signs Vital signs: Vital Signs Temp 98.4 F 07/18/24 04:00 Pulse 76 07/18/24 06:00 Resp 8 L 07/18/24 06:00 BP 121/58 07/18/24 06:00 Pulse Ox 98 07/18/24 06:00 FiO2 Intake & Output 07/17/24 07/17/24 07/18/24 06:59 18:59 06:59 Intake Total 573.278 6549.106 442.508 Output Total 2500 0 Balance 572.046 -1369.894 442.508 Weight 99.6 kg 98.7 kg Intake: IV 350 320 270 KVO 350 270 220 ceFAZolin 2 gm In Sodium 50 Chloride 0.9% 50 ml @ 100 mls/hr IVPB ONCE ONE Rx# :[id number] Intake, IV Titration 222.046 192.106 172.508 Amount Norepinephrine 4 mg In 222.046 192.106 172.508 Sodium Chloride 0.9% 250 ml @ 0.03 MCG/KG/MIN 10. 888 mls/hr IV .[id number] JOEY Rx#:[id number] Oral 118 Hemodialysis 500 Output: Urine 0 0 Hemodialysis 1500 Hemodialysis Net Amount 1000 Other: Voiding Method Urinal Urinal Urinal ABP, PAP, CO, CI - Last Documented Arterial Blood Pressure 135/39 - Labs CBC & Chem 7: 07/18/24 05:25 07/18/24 05:25 Labs: Abnormal Lab Results - Last 24 Hours (Table) 07/17/24 07/17/24 07/17/24 Range/Units 11:19 16:14 16:15 RBC (4.30-5.90) m/uL Hgb (13.0-17.5) gm/dL Hct (39.0-53.0) % Plt Count (150-450) k/uL Sodium (137-145) mmol/L Chloride (98-107) mmol/L BUN (9-20) mg/dL Creatinine (0.66-1.25) mg/dL Glucose (74-99) mg/dL POC Glucose (mg/dL) 126 H 157 H 158 H (70-110) mg/dL Calcium (8.4-10.2) mg/dL 07/17/24 07/18/24 07/18/24 Range/Units 19:31 05:25 05:25 RBC 2.93 L (4.30-5.90) m/uL Hgb 9.7 L (13.0-17.5) gm/dL Hct 29.2 L (39.0-53.0) % Plt Count 135 L (150-450) k/uL Sodium 134 L (137-145) mmol/L Chloride 95 L (98-107) mmol/L BUN 30 H (9-20) mg/dL Creatinine 4.73 H (0.66-1.25) mg/dL Glucose 141 H (74-99) mg/dL POC Glucose (mg/dL) 210 H (70-110) mg/dL Calcium 8.2 L (8.4-10.2) mg/dL 07/18/24 Range/Units 06:32 RBC (4.30-5.90) m/uL Hgb (13.0-17.5) gm/dL Hct (39.0-53.0) % Plt Count (150-450) k/uL Sodium (137-145) mmol/L Chloride (98-107) mmol/L BUN (9-20) mg/dL Creatinine (0.66-1.25) mg/dL Glucose (74-99) mg/dL POC Glucose (mg/dL) 159 H (70-110) mg/dL Calcium (8.4-10.2) mg/dL
[2024-07-18] MEDS: HEPARIN SODIUM,PORCINE 5,000 UNIT/ML 1 ML VIAL SQ SCH (16:34)
[2024-07-18 16:46] LABS: Glucose,Whole Blood 202 mg/dL (70-110)
[2024-07-18 19:43] LABS: Glucose,Whole Blood 298 mg/dL (70-110)
--- NOTE | 2024-07-18 20:13 | P.PN ---
Subjective Progress Note Date: 07/18/24 The patient is a pleasant 73-year-old gentleman with extensive cardiovascular history consistent of CAD with prior CABG and stenting as well as cardiomyopathy and aortic stenosis as well as hypertension and dyslipidemia and end-stage renal disease on dialysis who was admitted to the hospital with acute coronary syndrome and underwent a heart catheterization which revealed patent stent in the left main and patent TIAN to LAD and occluded left circumflex as well as occluded SVG to ramus intermedius and severe in-stent restenosis involving unprotected RCA. I did perform PCI of the RCA. Also I did place a temporary pacemaker because he was bradycardic. July 16, 2024 The patient was seen and evaluated this morning with his currently asymptomatic and he is unstable requiring small dose of norepinephrine. Beside that he still requiring the temporary pacer. I am going to wean the patient back from norepinephrine and monitor the patient for additional 24 hours if he did not recover he might need to have a permanent pacemaker. He is on dual antiplatelet therapy but also is on beta-narcisa and isosorbide mononitrate which I am going to stop and continue dual antiplatelet therapy along with a statin. The physical examination is remarkable for regular rhythm with a systolic murmur at the right upper sternal border with clear breathing sounds bilaterally and no edema was noted in the lower extremities July 17, 2024 The patient was seen and evaluated this morning. He continues to be in complete AV block and depending on the temporary pacemaker. The patient is needed pacemaker. 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 Beside that he is still on small dose of norepinephrine. Beside that he is on dual antiplatelet therapy along with a statin. Examination is remarkable for regular rhythm with a systolic murmur at the right and left upper sternal border with clear breathing sounds bilaterally. The patient need to undergo permanent pacemaker. July 18, 2024 The patient was seen and evaluated this morning. He seems to be asymptomatic when he was seen and evaluated this morning but he is still hemodynamically unstable requiring small dose of norepinephrine. Otherwise he underwent permanent pacemaker implantation yesterday. The chest x-ray did not show any evidence of pneumothorax. The physical examination is remarkable for regular rhythm with a systolic murmur at the right and left upper sternal border with diminished breathing sounds bilaterally and no edema was noted Assessment Acute coronary event CAD as described above Cardiomyopathy Aortic stenosis Multiple comorbid conditions End-stage renal disease on dialysis Status post permanent pacemaker Plan Continue the current medical regimen Continue dual antiplatelet therapy and statin Continue temporary pacemaker Permanent pacemaker as soon as possible Follow-up with the patient Objective - Vital Signs Vital signs: Vital Signs Temp 97.2 F L 07/18/24 16:00 Pulse 76 07/18/24 19:00 Resp 17 07/18/24 19:00 BP 75/27 07/18/24 19:00 Pulse Ox 96 07/18/24 16:45 FiO2 Intake & Output 07/18/24 07/18/24 07/19/24 06:59 18:59 06:59 Intake Total 442.508 853.580 81.858 Output Total 0 700 0 Balance 442.508 153.580 81.858 Weight 98.7 kg Intake: IV 270 130 10 KVO 220 130 10 ceFAZolin 2 gm In Sodium 50 Chloride 0.9% 50 ml @ 100 mls/hr IVPB ONCE ONE Rx# :[id number] Intake, IV Titration 172.508 273.580 71.858 Amount Norepinephrine 4 mg In 172.508 273.580 71.858 Sodium Chloride 0.9% 250 ml @ 0.03 MCG/KG/MIN 10. 888 mls/hr IV .[id number] JOEY Rx#:[id number] Oral 450 Output: Urine 0 400 0 Stool 300 Other: Voiding Method Urinal Urinal # Bowel Movements 1 ABP, PAP, CO, CI - Last Documented Arterial Blood Pressure 135/39 - Labs CBC & Chem 7: 07/18/24 05:25 07/18/24 05:25 Labs: Abnormal Lab Results - Last 24 Hours (Table) 07/18/24 07/18/24 07/18/24 Range/Units 05:25 05:25 06:32 RBC 2.93 L (4.30-5.90) m/uL Hgb 9.7 L (13.0-17.5) gm/dL Hct 29.2 L (39.0-53.0) % Plt Count 135 L (150-450) k/uL Sodium 134 L (137-145) mmol/L Chloride 95 L (98-107) mmol/L BUN 30 H (9-20) mg/dL Creatinine 4.73 H (0.66-1.25) mg/dL Glucose 141 H (74-99) mg/dL POC Glucose (mg/dL) 159 H (70-110) mg/dL Calcium 8.2 L (8.4-10.2) mg/dL 07/18/24 07/18/24 07/18/24 Range/Units 11:42 15:02 16:45 RBC (4.30-5.90) m/uL Hgb (13.0-17.5) gm/dL Hct (39.0-53.0) % Plt Count (150-450) k/uL Sodium (137-145) mmol/L Chloride (98-107) mmol/L BUN (9-20) mg/dL Creatinine (0.66-1.25) mg/dL Glucose (74-99) mg/dL POC Glucose (mg/dL) 186 H 251 H 202 H (70-110) mg/dL Calcium (8.4-10.2) mg/dL 07/18/24 Range/Units 19:41 RBC (4.30-5.90) m/uL Hgb (13.0-17.5) gm/dL Hct (39.0-53.0) % Plt Count (150-450) k/uL Sodium (137-145) mmol/L Chloride (98-107) mmol/L BUN (9-20) mg/dL Creatinine (0.66-1.25) mg/dL Glucose (74-99) mg/dL POC Glucose (mg/dL) 298 H (70-110) mg/dL Calcium (8.4-10.2) mg/dL
--- NOTE | 2024-07-18 23:55 | P.PCN ---
Date of Procedure: 07/18/24 Preoperative Diagnosis: Hypotension and shock Postoperative Diagnosis: Hypotension and shock Procedure(s) Performed: Insertion of a right radial arterial line Indications for Procedure: Continuous blood pressure monitoring and frequent blood draws Description of Procedure: Informed consent was obtained, and a procedural timeout was performed . The patient was placed in supine position. The right brachial region was prepared in a sterile fashion, and a sterile drape was applied. 1% lidocaine used to locally anesthetize the area. The right brachial artery was palpated, easily cannulated, and a guidewire was placed. A Cook catheter was inserted over the guidewire, and the guidewire was removed. There was good arterial blood flow, good arterial waveform, and no complications. The line was secured with using a 3-0 silk suture.
[2024-07-19 05:55] LABS: Basophils % (A) 0 %; Eosinophils # (A) 0.2 k/uL (0-0.7); Eosinophils % (A) 2 %; HCT 27.8 % (39.0-53.0); HGB 9.4 gm/dL (13.0-17.5); Lymphocytes # (A) 0.7 k/uL (1.0-4.8); Lymphocytes % (A) 8 %; MCH 33.5 pg (25.0-35.0); MCHC 33.7 g/dL (31.0-37.0); MCV 99.4 fL (80.0-100.0); Mean Platelet Volume 8.7; Monocytes # (A) 0.4 k/uL (0-1.0); Monocytes % (A) 6 %; Neutrophils # (A) 6.2 k/uL (1.3-7.7); Neutrophils % (A) 80 %; Platelet Count 157 k/uL (150-450); RDW 13.9 % (11.5-15.5); WBC 7.7 k/uL (3.8-10.6)
[2024-07-19 06:13] LABS: Glucose,Whole Blood 167 mg/dL (70-110)
--- NOTE | 2024-07-19 06:40 | P.CNPUL ---
History of Present Illness Consult date: 07/19/24 Requesting physician: Sumit Justice Reason for consult: other (Hypotension, increased vasopressor requirements) Chief complaint: Chest pain History of present illness: Patient is a 73-year-old male with past medical history significant for coronary artery disease with previous CABG 2 vessels, hypertension, hyperlipidemia, end- stage renal disease (Tuesday, , Tuesday schedule), previous thrombosis of his left AV fistula graft and thrombectomy, diabetes mellitus (insulin- dependent with insulin pump), diabetic neuropathy, COPD, former tobacco smoker, obstructive sleep apnea, noncompliant with CPAP, among other things. PCP is Dr. Valentino. Of note, recently underwent off-pump CABG x 2 with TIAN to LAD and SVG to the ramus intermedius on 10/17/2023. Over the last month patient has had multiple ER visits for angina. Follow-up heart catheterization done 06/07/2024 demonstrating patent left main stent, 50% proximal LAD stenosis, 80% mid LAD stenosis, 20 to 30% ramus stenosis, 100% circumflex artery stenosis and 30% RCA stenosis. Patent TIAN to the LAD and known SVG to the room occluded. On 07/05/2024 did have an outpatient stress test which was inconclusive. On 07/04/2024 had a transesophageal echocardiogram estimated reduced left ventricular ejection fraction of approximately 45%, moderate aortic stenosis, and mild to moderate mitral regurgitation. On July 14, patient was at the hemodialysis center, receiving hemodialysis when he developed severe crushing left sided substernal chest pain. Nonradiating. The hemodialysis center did call 911, and patient was brought into the emergency department. Patient was admitted with a non-ST elevation VT. Troponins were elevated and peaked at 9.75. On July 15 did go for heart catheterization received PTCA to the RCA. TVP was also inserted during the heart catheterization for third-degree AV block. Patient was then sent to the intensive care unit to be managed by cardiology. Subsequently, received a dual- chamber permanent pacemaker on July 17. Patient has had issues with hypotension, remains in the intensive care unit. We were consulted last night for worsening and persistent hypotension. Patient is currently receiving norepinephrine which is infusing at 0.11 mcg/kg/min. They are having troubles obtaining accurate noninvasive blood pressure readings. We are asked to insert an arterial line for continuous blood pressure monitoring. Patient is currently being evaluated in the intensive care unit. He is awake and alert and oriented. His is at bedside. Remains hypotensive, and we are actively titrating up on norepinephrine. Appears to be V paced on bedside monitor in the 70s. Left chest pacemaker generator site appears approximated with postsurgical dressing intact. No significant bleeding or oozing or drainage. Right groin catheter site is clean, dry, approximated. No hematoma or bruising. Distal pulses are weak and found with Doppler. He is on 3 L/min nasal cannula. No respiratory distress noted. Nontachypneic, no conversational dyspnea. Chest x-ray showing stable cardiomegaly with mild pulmonary vascular congestion. Denies current chest pain, palpitations, lightheadedness. Endorses orthopnea. He legs feel swollen. CBC: WBC count 6.2, hemoglobin 9.7, hematocrit 29.2, platelets 135. CMP: Sodium 134, potassium 4.1, chloride 95, serum bicarb 30, BUN 30, creatinine 4.73., glucose 141. Current vitals: Temperature 98.4 F, heart rate 76 bpm, blood pressure 91/33 mmHg, SpO2 98% on 3 L/min nasal cannula. Review of Systems Constitutional: Denies chills, Denies fatigue, Denies fever, Denies poor appetite, Denies weight gain, Denies weight loss Ears, nose, mouth and throat: Denies headache, Denies nasal congestion, Denies nasal discharge, Denies post-nasal drip, Denies sinus pain, Denies sinus pressure, Denies sore throat Cardiovascular: Reports leg edema, Reports orthopnea, Denies chest pain, Denies palpitations, Denies paroxysmal nocturnal dyspnea, Denies syncope Respiratory: Reports cough with sputum, Reports sleep apnea, Denies congestion, Denies cough, Denies dyspnea, Denies home oxygen, Denies wheezing Gastrointestinal: Denies abdominal pain, Denies constipation, Denies diarrhea, Denies nausea, Denies vomiting Genitourinary: Denies dysuria, Denies urinary retention Musculoskeletal: Denies limitation of motion Integumentary: Denies rash Neurological: Reports paresthesias, Reports tremors, Denies balance difficulties, Denies confusion, Denies head injury, Denies headaches, Denies numbness, Denies paralysis, Denies seizures, Denies syncope, Denies weakness, Denies visual changes Psychiatric: Denies anxiety, Denies depression Past Medical History Past Medical History: Blood Disorder, Coronary Artery Disease (CAD), Chest Pain / Angina, Heart Failure, COPD, Diabetes Mellitus, Dialysis, Hearing Disorder / Deafness, Hyperlipidemia, Hypertension, Myocardial Infarction (VT), Osteoarthritis (OA), Renal Disease, Sleep Apnea/CPAP/BIPAP Additional Past Medical History / Comment(s): has insulin pump and contiunuous blood glucose monitor,fell at home on Tuesday10-10-23"got dizzy"-no injury,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. Chronic renal failure, dialysis [facility] normally. Patient has insulin pump. Has CPAP, occasionally uses. Neuropathy in feet and hands. Poor hearing. Last Myocardial Infarction Date:: History of Any Multi-Drug Resistant Organisms: None Reported Past Surgical History: Cholecystectomy, Coronary Bypass/CABG, Heart Catheterization, Heart Catheterization With Stent, Orthopedic Surgery Additional Past Surgical History / Comment(s): Shoulder surgery-no hardware, hemorrhoidectomy, eye surgery,4 cardiac stents,AV fistula left forearm, double vessle CABG 10/17/23 Past Anesthesia/Blood Transfusion Reactions: No Reported Reaction Additional Past Anesthesia/Blood Transfusion Reaction / Comment(s): Never had a blood transfusion. Date of Last Stent Placement:: 2004,2014,2023 Smoking Status: Never smoker - Past Family History Father Family Medical History: Cancer Additional Family Medical History / Comment(s): Bladder cancer. Mother Family Medical History: Cancer, Diabetes Mellitus Additional Family Medical History / Comment(s): Pancreatic cancer. Medications and Allergies Home Medications Medication Instructions Recorded Confirmed Type Ezetimibe [Zetia] 10 mg PO DAILY 05/19/16 07/14/24 History Ferrous Sulfate [Iron (65 MG 325 mg PO DAILY 05/19/16 07/14/24 History Elemental)] Insulin Aspart (For Pump) [NovoLOG 0.01 unit SQ-PUMP CONTINUOUS 05/28/18 07/14/24 History (For Pump)] Pramipexole [Mirapex] 0.5 mg PO BID PRN 05/02/19 07/14/24 History Albuterol Inhaler [Ventolin Hfa 2 puff INHALATION RT-Q4H PRN 08/10/21 07/14/24 History Inhaler] Aspirin EC [Ecotrin Low Dose] 81 mg PO DAILY 02/21/22 07/14/24 History Glucagon Emergency Kit 1 mg IM ONCE PRN 02/21/22 07/14/24 History Escitalopram [Lexapro] 10 mg PO DAILY 01/01/23 07/14/24 History ALPRAZolam [Xanax] 0.5 mg PO HS PRN 06/17/23 07/14/24 History Cholecalciferol [Vitamin D3 (25 50 mcg PO DAILY 06/17/23 07/14/24 History Mcg = 1000 Iu)] Tamsulosin [Flomax] 0.4 mg PO HS 06/17/23 07/14/24 History Cetirizine HCl [Zyrtec] 10 mg PO DAILY 09/22/23 07/14/24 History Folic Acid/Vit B Complex and C 0.8 mg PO DAILY 09/22/23 07/14/24 History [Nephro-Pooja Tablet] Torsemide [Demadex] 40 mg PO SUMOWEFR 09/22/23 07/14/24 History Clopidogrel [Plavix] 75 mg PO DAILY #30 tab 10/24/23 07/14/24 Rx Rosuvastatin [Crestor] 10 mg PO HS 06/07/24 07/14/24 History Topiramate [Topamax] 25 mg PO BID 06/07/24 07/14/24 History Metoprolol Tartrate [Lopressor] 25 mg PO BID 30 Days #60 tab 06/10/24 07/14/24 Rx Sacubitril/Valsartan [Entresto 24 1 tab PO BID 06/19/24 07/14/24 History mg-26 mg Tablet] Nitroglycerin Sl Tabs [Nitrostat] 0.4 mg SL Q5M PRN 07/04/24 07/14/24 History Midodrine [ProAmatine] 10 mg PO AC-TID 30 Days #90 tab 07/06/24 07/14/24 Rx Ranolazine [Ranexa] 1,000 mg PO BID 30 Days #120 tab 07/06/24 07/14/24 Rx Isosorbide Mononitrate ER [Imdur] 30 mg PO BID #60 tab 07/13/24 07/14/24 Rx Allergies Allergy/AdvReac Type Severity Reaction Status Date / Time zolpidem [From Ambien] Allergy Hallucinati Verified 07/14/24 15:33 ons atorvastatin [From Lipitor] AdvReac jt and Verified 07/14/24 15:33 muscle pain baclofen AdvReac caused a Verified 07/14/24 15:33 fall Physical Exam Vitals: Vital Signs Temp Pulse Pulse Resp BP BP Pulse Ox 07/18/24 22:00 76 23 124/73 91 L 07/18/24 21:45 78 23 113/60 99 07/18/24 21:30 76 13 119/51 100 07/18/24 21:15 81 14 106/62 98 07/18/24 21:00 81 16 120/66 98 07/18/24 20:45 92 21 119/69 100 07/18/24 20:30 89 22 127/70 100 07/18/24 20:15 79 17 123/77 100 07/18/24 20:00 98.2 F 106 H 17 132/81 99 07/18/24 19:45 92 18 133/62 100 07/18/24 19:30 80 20 140/75 100 07/18/24 19:15 89 14 100 07/18/24 19:00 76 76 17 75/27 97 07/18/24 18:45 84 20 95/32 100 07/18/24 18:30 77 20 81/38 99 07/18/24 18:15 86 15 95/37 100 07/18/24 18:00 91 77 18 104/28 95/37 99 07/18/24 17:45 92 13 120/37 96 07/18/24 17:30 87 17 117/45 100 07/18/24 17:15 75 19 91/37 100 07/18/24 17:00 92 76 28 H 86/49 104/28 100 07/18/24 16:45 73 24 78/40 96 07/18/24 16:30 70 17 74/45 100 07/18/24 16:15 70 28 H 79/41 99 07/18/24 16:00 97.2 F L 77 19 71/44 99 07/18/24 15:45 76 33 H 79/35 100 07/18/24 15:30 86 20 74/47 99 07/18/24 15:15 82 15 84/54 99 07/18/24 15:00 114 H 22 68/49 99 07/18/24 14:45 84 10 L 85/51 95 07/18/24 14:30 13 78/50 97 07/18/24 14:15 84 29 H 90/47 100 07/18/24 14:00 91 18 116/88 99 07/18/24 13:45 24 86/68 98 07/18/24 13:30 87 17 99/59 96 07/18/24 13:15 75 24 94/47 90 L 07/18/24 13:00 89 24 86/47 100 07/18/24 12:45 87 19 80/64 95 07/18/24 12:30 85 24 92/48 92 L 07/18/24 12:15 91 19 80/47 95 07/18/24 12:00 96 20 85/52 99 07/18/24 11:45 93 14 83/46 96 07/18/24 11:30 82 15 88/49 94 L 07/18/24 11:15 80 20 88/49 100 07/18/24 11:00 94 23 86/48 99 07/18/24 10:45 89/48 99 07/18/24 10:30 74 22 95/46 94 L 07/18/24 10:15 73 21 83/46 98 07/18/24 10:00 82 27 H 102/52 99 07/18/24 09:45 72 15 120/83 98 07/18/24 09:30 72 28 H 83/54 99 07/18/24 09:15 76 15 86/48 98 07/18/24 09:00 71 22 110/21 98 07/18/24 08:45 75 16 99/53 90 L 07/18/24 08:30 96 25 H 98/68 95 07/18/24 08:15 26 H 108/68 07/18/24 08:00 97.4 F L 81 16 91/51 99 07/18/24 07:45 77 12 125/107 83 L 07/18/24 07:30 73 21 86/57 95 07/18/24 07:15 75 17 103/48 99 07/18/24 07:00 78 19 103/61 97 07/18/24 06:30 80 21 99/76 98 07/18/24 06:00 76 8 L 121/58 98 07/18/24 05:30 18 106/45 98 07/18/24 05:00 66 19 91/41 95 07/18/24 04:30 68 12 94/43 97 07/18/24 04:00 98.4 F 73 14 102/53 98 07/18/24 03:30 63 16 81/39 98 07/18/24 03:00 66 16 88/48 100 07/18/24 02:30 69 9 L 116/61 100 07/18/24 02:00 66 15 98/47 100 07/18/24 01:30 69 12 106/56 94 L 07/18/24 01:00 68 17 104/49 97 07/18/24 00:30 70 20 97/44 99 07/18/24 00:12 67 15 91/48 96 Intake and Output 07/18/24 07/18/24 07/19/24 14:59 22:59 06:59 Intake Total 522.647 524.609 20 Output Total 600 100 0 Balance -77.353 424.609 20 Intake: IV 90 100 20 KVO 90 100 20 Intake, IV Titration 132.647 274.609 Amount Norepinephrine 4 mg In 132.647 274.609 Sodium Chloride 0.9% 250 ml @ 0.03 MCG/KG/MIN 10. 888 mls/hr IV .[id number] [facility] Rx#:[id number] Oral 300 150 Output: Urine 400 0 0 Stool 200 100 Other: Voiding Method Urinal Urinal # Bowel Movements 1 1 GENERAL EXAM: Alert, 73-year-old white male, comfortable in no apparent distress. HEAD: Normocephalic and atraumatic EYES: Normal reaction of pupils, equal size. NOSE: Clear with pink turbinates. THROAT: No erythema or exudates. NECK: No masses, no JVD. CHEST: Old, healed sternotomy incision. Postsurgical left chest with generator and postsurgical dressing is clean and dry. No discharge, bleeding or hematoma LUNGS: Equal air entry with no crackles, wheeze, rhonchi or dullness. On 3 L/min nasal cannula. SpO2 is 100%. No conversational dyspnea or accessory muscle use.. CVS: S1 and S2 normal with no audible murmur, grade 2 systolic murmur. No extra heart sounds. V-paced on bedside monitor ABDOMEN: No hepatosplenomegaly, active bowel sounds, no guarding or rigidity. SPINE: No scoliosis or deformity SKIN: No rashes CENTRAL NERVOUS SYSTEM: No focal deficits, tone is normal in all 4 extremities. Essential tremors EXTREMITIES: Right groin access site is approximated, clean and dry, without hematoma. Left AV fistula noted with positive bruit and thrill. Right brachial arterial line was inserted with good arterial waveform and distal circulation. Bilateral lower distal pulses found with Doppler and lower extremities are warm to palpation.. Results - Laboratory Findings CBC and BMP: 07/19/24 05:25 07/19/24 05:25 PT/INR, D-dimer PT 12.0 sec (10.0-12.5) 07/15/24 04:24 INR 1.1 (<1.2) 07/15/24 04:24 Abnormal lab findings: Abnormal Labs 07/14/24 07/14/24 07/14/24 11:22 11:22 11:22 RBC 3.30 L Hgb 10.8 L Hct 31.8 L MCV Plt Count 149 L Lymphocytes # APTT Sodium Potassium Chloride 97 L Carbon Dioxide 31 H BUN 30 H Creatinine 3.66 H Glucose 114 H POC Glucose (mg/dL) Calcium AST Troponin I 0.292 H* 07/14/24 07/14/24 07/15/24 14:35 17:43 01:21 RBC Hgb Hct MCV Plt Count Lymphocytes # APTT Sodium Potassium Chloride Carbon Dioxide BUN Creatinine Glucose POC Glucose (mg/dL) 138 H Calcium AST Troponin I 0.826 H* 2.160 H* 07/15/24 07/15/24 07/15/24 04:24 04:24 04:24 RBC 3.30 L Hgb 10.7 L Hct 32.5 L MCV Plt Count Lymphocytes # APTT 62.2 H Sodium Potassium Chloride 96 L Carbon Dioxide 33 H BUN 39 H Creatinine 5.14 H Glucose POC Glucose (mg/dL) Calcium AST Troponin I 07/15/24 07/15/24 07/15/24 05:49 06:44 09:31 RBC Hgb Hct MCV Plt Count Lymphocytes # APTT Sodium Potassium Chloride Carbon Dioxide BUN Creatinine Glucose POC Glucose (mg/dL) 65 L 123 H Calcium AST Troponin I 9.750 H* 07/15/24 07/15/24 07/15/24 16:05 16:06 16:36 RBC Hgb Hct MCV Plt Count Lymphocytes # APTT Sodium Potassium Chloride Carbon Dioxide BUN Creatinine Glucose POC Glucose (mg/dL) 40 L* 49 L* 69 L Calcium AST Troponin I 07/15/24 07/16/24 07/16/24 20:18 06:25 07:04 RBC 3.16 L Hgb 10.5 L Hct 31.5 L MCV Plt Count 130 L Lymphocytes # APTT Sodium Potassium Chloride Carbon Dioxide BUN Creatinine Glucose POC Glucose (mg/dL) 184 H 198 H Calcium AST Troponin I 07/16/24 07/16/24 07/16/24 07:04 11:15 15:40 RBC Hgb Hct MCV Plt Count Lymphocytes # APTT Sodium 134 L Potassium 5.8 H Chloride 92 L Carbon Dioxide BUN 45 H Creatinine 6.16 H Glucose 169 H POC Glucose (mg/dL) 148 H 244 H Calcium 8.1 L AST 69 H Troponin I 07/16/24 07/16/24 07/17/24 16:59 20:47 05:42 RBC 3.23 L Hgb 10.4 L Hct 32.4 L MCV 100.2 H Plt Count 146 L Lymphocytes # 0.9 L APTT Sodium Potassium Chloride Carbon Dioxide BUN Creatinine Glucose POC Glucose (mg/dL) 242 H 176 H Calcium AST Troponin I 07/17/24 07/17/24 07/17/24 05:42 06:25 11:19 RBC Hgb Hct MCV Plt Count Lymphocytes # APTT Sodium 134 L Potassium Chloride 94 L Carbon Dioxide BUN 33 H Creatinine 5.50 H Glucose 126 H POC Glucose (mg/dL) 152 H 126 H Calcium AST Troponin I 07/17/24 07/17/24 07/17/24 16:14 16:15 19:31 RBC Hgb Hct MCV Plt Count Lymphocytes # APTT Sodium Potassium Chloride Carbon Dioxide BUN Creatinine Glucose POC Glucose (mg/dL) 157 H 158 H 210 H Calcium AST Troponin I 07/18/24 07/18/24 07/18/24 05:25 05:25 06:32 RBC 2.93 L Hgb 9.7 L Hct 29.2 L MCV Plt Count 135 L Lymphocytes # APTT Sodium 134 L Potassium Chloride 95 L Carbon Dioxide BUN 30 H Creatinine 4.73 H Glucose 141 H POC Glucose (mg/dL) 159 H Calcium 8.2 L AST Troponin I 07/18/24 07/18/24 07/18/24 11:42 15:02 16:45 RBC Hgb Hct MCV Plt Count Lymphocytes # APTT Sodium Potassium Chloride Carbon Dioxide BUN Creatinine Glucose POC Glucose (mg/dL) 186 H 251 H 202 H Calcium AST Troponin I 07/18/24 19:41 RBC Hgb Hct MCV Plt Count Lymphocytes # APTT Sodium Potassium Chloride Carbon Dioxide BUN Creatinine Glucose POC Glucose (mg/dL) 298 H Calcium AST Troponin I - Diagnostic Findings Chest x-ray: image reviewed Assessment and Plan Assessment: Persistent hypotension and shock, possibly cardiogenic, requiring norepinephrine which is infusing at 0.11 mcg/kg/min and is actively being titrated up. Acute non-ST elevation VT, status post heart catheterization with PTCA to right RCA on 07/15/2024 Symptomatic bradycardia, complete AV block, status post dual-chamber permanent pacemaker insertion on 07/17/2024. Appears to be v paced on bedside monitor Multivessel coronary artery disease, status post two-vessel CABG including TIAN to the LAD, SVG to ramus intermedius done on 10/17/2023, has had multiple subsequent heart catheterizations Ischemic cardiomyopathy, KAREEM, 07/06/24, demonstrating a reduced left ventricular ejection fraction of 45%, with moderate atrial stenosis and mild to moderate mitral regurgitation Acute hypoxemic respiratory failure, currently on 3 L/min nasal cannula, chest x-ray demonstrating stable cardiac silhouette with possible mild pulmonary vascular congestion End-stage renal disease, undergoes hemodialysis on a Tuesday, , Tuesday schedule. Anemia of chronic disease, secondary to above Diabetes mellitus, insulin-dependent normally managed with insulin pump, complicated by diabetic neuropathy History of hypertension History of hyperlipidemia COPD/asthma, stable Remote history of tobacco use Obstructive sleep apnea, noncompliant with CPAP at home Essential tremors Plan: Patient's medications, labs and imaging reviewed We were consulted last night for persistent worsening hypotension. Patient is currently on norepinephrine and 0.11 mcg/kg/min. I did insert a right brachial arterial line for hemodynamic monitoring. Patient is ventricular paced on bedside monitor. Continues on aspirin and Brilinta Continue with Demadex, reportedly not anuric Nephrology is managing hemodialysis schedule We will continue to follow I have personally seen and examined the patient, performed the documentation and the assessment and plan as written. Number of minutes spent on the visit:20 This is a joint evaluation that was done along with the nurse practitioner. This evaluation was done and more than 30 minutes. Noted the patient has remain ed hypotensive post pacemaker insertion. Based on that, a pulmonary critical care consultation was requested. An arterial line was inserted yesterday by our services for close blood pressure monitoring. The patient is currently on norepinephrine which is running at 0.19 mcg/kg/min. IV fluids are currently at KVO. He is on 2 L of oxygen by nasal cannula. His last hemodialysis session was on 07/17/2024 and another session is to be done today. The patient is status post acute non-ST segment elevation myocardial infarction and the patient underwent PTCA to RCA. Subsequently, he went into 1/3 degree AV block and the patient required a pacemaker insertion that was initially temporary and subsequently patient underwent a dual-chamber pacemaker insertion. Nevertheless, he Being Hypotensive. No Signs of Infection or Sepsis. Will Check Serum Cortisol Level. Will Repeat Another Echocardiogram Today to Reevaluate His LV Function. Will Complete Dialysis and Will Attempt to Gradually Wean off His FiO2. Suspect Underlying Cardiomyopathy Contributing to His Hypotension. Based on That, a Limited Echocardiogram Is to Be Repeated Today. Will Do a Gradual Wean on His Pressors. No Need for Antibiotic Coverage for Now. Rest of the Medications Are Appropriate. Will Continue to Follow. There is a critical care evaluation. Time with Patient: Greater than 30
[2024-07-19 06:41] LABS: African American GFR (CKD) 10 (>60 ml/min/1.73 sqM); Anion Gap 11 mmol/L; Blood Urea Nitrogen 44 mg/dL (9-20); Calcium 8.2 mg/dL (8.4-10.2); Carbon Dioxide 24 mmol/L (22-30); Chloride 97 mmol/L (98-107); Glucose 175 mg/dL (74-99); Non-African American GFR(CKD) 8 (>60 ml/min/1.73 sqM); Sodium 132 mmol/L (137-145)
[2024-07-19 07:15] LABS: Potassium 4.1 mmol/L (3.5-5.1)
--- NOTE | 2024-07-19 07:21 | P.CNNES ---
History of Present Illness Consult date: 07/19/24 Reason for Consult: Bilateral arm and leg painful neuropathy without weakness. Chief complaint: "My hands burn in the hospital." History of Present Illness: Mr. Luciano is a 73-year-old right-handed male with medical history of congestive heart failure, coronary artery disease, end-stage renal disease on dialysis, hypertension, COPD, hyperlipidemia, diabetes with peripheral neuropathy as well as obstructive sleep apnea for which he has not been using CPAP at home. He was admitted to [facility] on July 14 with complaints of chest pain during hemodialysis. He also notes some chest pain as well as with exertion and while he uses the restroom and he also noted some lightheadedness. He has been admitted to the ICU and received pacemaker placement on July 17. It has also been noted by staff that the patient complains of some intermittent burning sensations to his arms and legs. He has a history of diabetes since the and has been very intermittent with his care. He is currently on insulin pump as per his . In addition end-stage renal disease may complicate neuropathy as well. The patient was very drowsy and difficult to arouse this morning, but he would wake up and follow simple commands. On neurologic testing, the patient did not respond to pain as well on his distal toes and fingers as well he did on his upper legs as well as upper arms. It appears he has a fairly significant peripheral neuropathy which is likely been exacerbated by his hospital course at this time. He is taking gabapentin 300 mg twice daily in house, and his is not sure if this is his dose at home; however, the patient did not use this medication frequently at home, though he did not complain of burning pain at home. It is also been noted by the and nursing staff that he has been awake during the night, and that also during the day he may have some hallucinations as he talks to people who are not in the room. His said he stated "goodbye" to his family yesterday, and the nurse notes that he has been reaching for objects that are not present. He also has a diagnosis of likely essential tremor as well, and his notes that he has taken medication for this in the past. He has a family history in his grandparents of "Parkinson's", and he is also exposed to agent orange in [place]. Neurology has been consulted for further management recommendations Review of Systems Review of systems was quite limited secondary to patient's poor arousability. However his had noted that he is been complaining some burning hands recently and also has a stiff neck as well as back pain. Musculoskeletal: Reports low back pain, Reports neck stiffness Neurological: Reports tingling, Reports tremors Past Medical History Past Medical History: Blood Disorder, Coronary Artery Disease (CAD), Chest Pain / Angina, Heart Failure, COPD, Diabetes Mellitus, Dialysis, Hearing Disorder / Deafness, Hyperlipidemia, Hypertension, Myocardial Infarction (MO), Ost eoarthritis (OA), Renal Disease, Sleep Apnea/CPAP/BIPAP Additional Past Medical History / Comment(s): has insulin pump and contiunuous blood glucose monitor,fell at home on Tuesday10-10-23"got dizzy"-no injury,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. Chronic renal failure, dialysis [facility] normally. Patient has insulin pump. Has CPAP, occasionally uses. Neuropathy in feet and hands. Poor hearing. Last Myocardial Infarction Date:: History of Any Multi-Drug Resistant Organisms: None Reported Past Surgical History: Cholecystectomy, Coronary Bypass/CABG, Heart Catheterization, Heart Catheterization With Stent, Orthopedic Surgery Additional Past Surgical History / Comment(s): Shoulder surgery-no hardware, hemorrhoidectomy, eye surgery,4 cardiac stents,AV fistula left forearm, double vessle CABG 10/17/23 Past Anesthesia/Blood Transfusion Reactions: No Reported Reaction Additional Past Anesthesia/Blood Transfusion Reaction / Comment(s): Never had a blood transfusion. Date of Last Stent Placement:: 2004,2014,2023 Smoking Status: Never smoker - Past Family History Father Family Medical History: Cancer Additional Family Medical History / Comment(s): Bladder cancer. Mother Family Medical History: Cancer, Diabetes Mellitus Additional Family Medical History / Comment(s): Pancreatic cancer. Medications and Allergies Home Medications Medication Instructions Recorded Confirmed Type Ezetimibe [Zetia] 10 mg PO DAILY 05/19/16 07/14/24 History Ferrous Sulfate [Iron (65 MG 325 mg PO DAILY 05/19/16 07/14/24 History Elemental)] Insulin Aspart (For Pump) [NovoLOG 0.01 unit SQ-PUMP CONTINUOUS 05/28/18 07/14/24 History (For Pump)] Pramipexole [Mirapex] 0.5 mg PO BID PRN 05/02/19 07/14/24 History Albuterol Inhaler [Ventolin Hfa 2 puff INHALATION RT-Q4H PRN 08/10/21 07/14/24 History Inhaler] Aspirin EC [Ecotrin Low Dose] 81 mg PO DAILY 02/21/22 07/14/24 History Glucagon Emergency Kit 1 mg IM ONCE PRN 02/21/22 07/14/24 History Escitalopram [Lexapro] 10 mg PO DAILY 01/01/23 07/14/24 History ALPRAZolam [Xanax] 0.5 mg PO HS PRN 06/17/23 07/14/24 History Cholecalciferol [Vitamin D3 (25 50 mcg PO DAILY 06/17/23 07/14/24 History Mcg = 1000 Iu)] Tamsulosin [Flomax] 0.4 mg PO HS 06/17/23 07/14/24 History Cetirizine HCl [Zyrtec] 10 mg PO DAILY 09/22/23 07/14/24 History Folic Acid/Vit B Complex and C 0.8 mg PO DAILY 09/22/23 07/14/24 History [Nephro-Pooja Tablet] Torsemide [Demadex] 40 mg PO SUMOWEFR 09/22/23 07/14/24 History Clopidogrel [Plavix] 75 mg PO DAILY #30 tab 10/24/23 07/14/24 Rx Rosuvastatin [Crestor] 10 mg PO HS 06/07/24 07/14/24 History Topiramate [Topamax] 25 mg PO BID 06/07/24 07/14/24 History Metoprolol Tartrate [Lopressor] 25 mg PO BID 30 Days #60 tab 06/10/24 07/14/24 Rx Sacubitril/Valsartan [Entresto 24 1 tab PO BID 06/19/24 07/14/24 History mg-26 mg Tablet] Nitroglycerin Sl Tabs [Nitrostat] 0.4 mg SL Q5M PRN 07/04/24 07/14/24 History Midodrine [ProAmatine] 10 mg PO AC-TID 30 Days #90 tab 07/06/24 07/14/24 Rx Ranolazine [Ranexa] 1,000 mg PO BID 30 Days #120 tab 07/06/24 07/14/24 Rx Isosorbide Mononitrate ER [Imdur] 30 mg PO BID #60 tab 07/13/24 07/14/24 Rx Allergies Allergy/AdvReac Type Severity Reaction Status Date / Time zolpidem [From Ambien] Allergy Hallucinati Verified 07/14/24 15:33 ons atorvastatin [From Lipitor] AdvReac jt and Verified 07/14/24 15:33 muscle pain baclofen AdvReac caused a Verified 07/14/24 15:33 fall Physical Examination - Vital Signs Vital Signs: Vital Signs Temp Pulse Pulse Resp BP BP Pulse Ox 07/19/24 07:00 78 19 117/82 100 07/19/24 06:45 82 20 117/82 99 07/19/24 06:30 117/82 99 07/19/24 06:15 83 23 117/82 98 07/19/24 06:00 82 19 99 07/19/24 05:45 85 20 99 07/19/24 05:30 93 8 L 07/19/24 05:15 95 19 88 L 07/19/24 05:00 94 19 92 L 07/19/24 04:45 96 18 92 L 07/19/24 04:30 98 19 92 L 07/19/24 04:15 99 19 91 L 07/19/24 04:00 99 21 96 07/19/24 03:45 87 26 H 07/19/24 03:30 86 18 96 07/19/24 03:15 88 13 99 07/19/24 03:00 103 H 23 07/19/24 02:45 89 43 H 78 L 07/19/24 02:30 98 25 H 86 L 07/19/24 02:15 101 H 14 97 07/19/24 02:00 87 20 94 L 07/19/24 01:45 94 18 100 07/19/24 01:30 95 16 95 07/19/24 01:15 93 33 H 100 07/19/24 01:00 92 21 99 07/19/24 00:45 94 18 117/82 100 07/19/24 00:30 80 24 124/76 100 07/19/24 00:15 87 20 113/54 100 07/19/24 00:12 77 54 H 113/54 99 07/19/24 00:02 98.4 F 89 17 113/54 98 12/18/24 22:00 76 23 124/73 91 L 07/18/24 21:45 78 23 113/60 99 07/18/24 21:30 76 13 119/51 100 07/18/24 21:15 81 14 106/62 98 07/18/24 21:00 81 16 120/66 98 07/18/24 20:45 92 21 119/69 100 07/18/24 20:30 89 22 127/70 100 07/18/24 20:15 79 17 123/77 100 07/18/24 20:00 98.2 F 106 H 17 132/81 99 07/18/24 19:45 92 18 133/62 100 07/18/24 19:30 80 20 140/75 100 07/18/24 19:15 89 14 100 07/18/24 19:00 76 76 17 75/27 97 07/18/24 18:45 84 20 95/32 100 07/18/24 18:30 77 20 81/38 99 07/18/24 18:15 86 15 95/37 100 07/18/24 18:00 91 77 18 104/28 95/37 99 07/18/24 17:45 92 13 120/37 96 07/18/24 17:30 87 17 117/45 100 07/18/24 17:15 75 19 91/37 100 07/18/24 17:00 92 76 28 H 86/49 104/28 100 07/18/24 16:45 73 24 78/40 96 07/18/24 16:30 70 17 74/45 100 07/18/24 16:15 70 28 H 79/41 99 07/18/24 16:00 97.2 F L 77 19 71/44 99 07/18/24 15:45 76 33 H 79/35 100 07/18/24 15:30 86 20 74/47 99 07/18/24 15:15 82 15 84/54 99 07/18/24 15:00 114 H 22 68/49 99 07/18/24 14:45 84 10 L 85/51 95 07/18/24 14:30 13 78/50 97 07/18/24 14:15 84 29 H 90/47 100 07/18/24 14:00 91 18 116/88 99 07/18/24 13:45 24 86/68 98 07/18/24 13:30 87 17 99/59 96 07/18/24 13:15 75 24 94/47 90 L 07/18/24 13:00 89 24 86/47 100 07/18/24 12:45 87 19 80/64 95 07/18/24 12:30 85 24 92/48 92 L 07/18/24 12:15 91 19 80/47 95 07/18/24 12:00 96 20 85/52 99 07/18/24 11:45 93 14 83/46 96 07/18/24 11:30 82 15 88/49 94 L 07/18/24 11:15 80 20 88/49 100 07/18/24 11:00 94 23 86/48 99 07/18/24 10:45 89/48 99 07/18/24 10:30 74 22 95/46 94 L 07/18/24 10:15 73 21 83/46 98 07/18/24 10:00 82 27 H 102/52 99 07/18/24 09:45 72 15 120/83 98 07/18/24 09:30 72 28 H 83/54 99 07/18/24 09:15 76 15 86/48 98 07/18/24 09:00 71 22 110/21 98 07/18/24 08:45 75 16 99/53 90 L 07/18/24 08:30 96 25 H 98/68 95 07/18/24 08:15 26 H 108/68 07/18/24 08:00 97.4 F L 81 16 91/51 99 07/18/24 07:45 77 12 125/107 83 L 07/18/24 07:30 73 21 86/57 95 07/18/24 07:15 75 17 103/48 99 Intake and Output 07/18/24 07/19/24 07/19/24 22:59 06:59 14:59 Intake Total 524.609 550.498 71.252 Output Total 100 0 Balance 424.609 550.498 71.252 Intake: IV 100 160 KVO 100 160 Intake, IV Titration 274.609 390.498 71.252 Amount Norepinephrine 4 mg In 274.609 390.498 71.252 Sodium Chloride 0.9% 250 ml @ 0.03 MCG/KG/MIN 10. 888 mls/hr IV .[id number] [facility] Rx#:[id number] Oral 150 Output: Urine 0 0 Stool 100 Other: Voiding Method Urinal Urinal # Bowel Movements 1 Weight 97.9 kg ABP, PAP, CO, CI - Last 8 Hours Arterial Blood Pressure 99/43 Arterial Blood Pressure 117/61 Arterial Blood Pressure 87/43 Arterial Blood Pressure 93/47 Arterial Blood Pressure 89/44 Arterial Blood Pressure 113/44 Arterial Blood Pressure 120/47 Arterial Blood Pressure 114/43 Arterial Blood Pressure 118/44 Arterial Blood Pressure 114/44 Arterial Blood Pressure 116/45 Arterial Blood Pressure 116/103 Arterial Blood Pressure 120/45 Arterial Blood Pressure 124/44 Arterial Blood Pressure 121/42 Arterial Blood Pressure 119/41 Arterial Blood Pressure 123/42 Arterial Blood Pressure 92/36 Arterial Blood Pressure 114/47 Arterial Blood Pressure 109/38 Arterial Blood Pressure 104/38 Arterial Blood Pressure 103/38 Arterial Blood Pressure 81/61 Arterial Blood Pressure 122/59 Arterial Blood Pressure 126/45 Arterial Blood Pressure 125/44 Arterial Blood Pressure 121/39 Arterial Blood Pressure 118/46 Arterial Blood Pressure 113/38 Arterial Blood Pressure 91/33 - Constitutional General appearance: average body habitus - EENT EENT: PERRL, hearing intact, vision intact - Respiratory Respiratory: chest non-tender, lungs clear - Cardiovascular Cardiovascular: regular rate, no murmurs Extremities: non-pitting edema - Gastrointestinal Gastrointestinal: normoactive bowel sounds - Integumentary Integumentary: normal - Neurologic Cranial nerve examination: PERRL, VFF, face symmetric, tongue midline Sensorimotor examination: other (The patient exhibits a coarse 3 to 4 Hz tremor of his bilateral upper extremities on raising, but I could not detect any cogwheel rigidity as would be present with Parkinson's disease.) Detailed motor examination: other (Patient is able to raise both arms with symmetric strength. He does not raise his legs to command, and withdrawal is limited of both arms and legs likely secondary to peripheral neuropathy.) Reflex and gait examination: other (Reflexes are trace to absent in arms and legs, likely consistent with his diagnosis of peripheral neuropathy.) Results Noncontrast CT of the brain from July 17 was read as negative. Lower extremity ultrasound from July 17 reveals no evidence of deep venous thrombosis with a nonocclusive thrombus of the right internal jugular vein. EKG on July 16 reveals sinus rhythm with a short NM interval as well as frequent PVCs. He was paced externally at that time. - Laboratory Findings CBC and BMP: 07/19/24 05:25 07/18/24 05:25 Abnormal Lab Findings: Abnormal Labs 07/14/24 07/14/24 07/14/24 11:22 11:22 11:22 RBC 3.30 L Hgb 10.8 L Hct 31.8 L MCV Plt Count 149 L Lymphocytes # APTT Sodium Potassium Chloride 97 L Carbon Dioxide 31 H BUN 30 H Creatinine 3.66 H Glucose 114 H POC Glucose (mg/dL) Calcium AST Troponin I 0.292 H* 07/14/24 07/14/24 07/15/24 14:35 17:43 01:21 RBC Hgb Hct MCV Plt Count Lymphocytes # APTT Sodium Potassium Chloride Carbon Dioxide BUN Creatinine Glucose POC Glucose (mg/dL) 138 H Calcium AST Troponin I 0.826 H* 2.160 H* 07/15/24 07/15/24 07/15/24 04:24 04:24 04:24 RBC 3.30 L Hgb 10.7 L Hct 32.5 L MCV Plt Count Lymphocytes # APTT 62.2 H Sodium Potassium Chloride 96 L Carbon Dioxide 33 H BUN 39 H Creatinine 5.14 H Glucose POC Glucose (mg/dL) Calcium AST Troponin I 07/15/24 07/15/24 07/15/24 05:49 06:44 09:31 RBC Hgb Hct MCV Plt Count Lymphocytes # APTT Sodium Potassium Chloride Carbon Dioxide BUN Creatinine Glucose POC Glucose (mg/dL) 65 L 123 H Calcium AST Troponin I 9.750 H* 07/15/24 07/15/24 07/15/24 16:05 16:06 16:36 RBC Hgb Hct MCV Plt Count Lymphocytes # APTT Sodium Potassium Chloride Carbon Dioxide BUN Creatinine Glucose POC Glucose (mg/dL) 40 L* 49 L* 69 L Calcium AST Troponin I 07/15/24 07/16/24 07/16/24 20:18 06:25 07:04 RBC 3.16 L Hgb 10.5 L Hct 31.5 L MCV Plt Count 130 L Lymphocytes # APTT Sodium Potassium Chloride Carbon Dioxide BUN Creatinine Glucose POC Glucose (mg/dL) 184 H 198 H Calcium AST Troponin I 07/16/24 07/16/24 07/16/24 07:04 11:15 15:40 RBC Hgb Hct MCV Plt Count Lymphocytes # APTT Sodium 134 L Potassium 5.8 H Chloride 92 L Carbon Dioxide BUN 45 H Creatinine 6.16 H Glucose 169 H POC Glucose (mg/dL) 148 H 244 H Calcium 8.1 L AST 69 H Troponin I 07/16/24 07/16/24 07/17/24 16:59 20:47 05:42 RBC 3.23 L Hgb 10.4 L Hct 32.4 L MCV 100.2 H Plt Count 146 L Lymphocytes # 0.9 L APTT Sodium Potassium Chloride Carbon Dioxide BUN Creatinine Glucose POC Glucose (mg/dL) 242 H 176 H Calcium AST Troponin I 07/17/24 07/17/24 07/17/24 05:42 06:25 11:19 RBC Hgb Hct MCV Plt Count Lymphocytes # APTT Sodium 134 L Potassium Chloride 94 L Carbon Dioxide BUN 33 H Creatinine 5.50 H Glucose 126 H POC Glucose (mg/dL) 152 H 126 H Calcium AST Troponin I 07/17/24 07/17/24 07/17/24 16:14 16:15 19:31 RBC Hgb Hct MCV Plt Count Lymphocytes # APTT Sodium Potassium Chloride Carbon Dioxide BUN Creatinine Glucose POC Glucose (mg/dL) 157 H 158 H 210 H Calcium AST Troponin I 07/18/24 07/18/24 07/18/24 05:25 05:25 06:32 RBC 2.93 L Hgb 9.7 L Hct 29.2 L MCV Plt Count 135 L Lymphocytes # APTT Sodium 134 L Potassium Chloride 95 L Carbon Dioxide BUN 30 H Creatinine 4.73 H Glucose 141 H POC Glucose (mg/dL) 159 H Calcium 8.2 L AST Troponin I 07/18/24 07/18/24 07/18/24 11:42 15:02 16:45 RBC Hgb Hct MCV Plt Count Lymphocytes # APTT Sodium Potassium Chloride Carbon Dioxide BUN Creatinine Glucose POC Glucose (mg/dL) 186 H 251 H 202 H Calcium AST Troponin I 07/18/24 07/19/24 07/19/24 19:41 05:25 06:11 RBC 2.80 L Hgb 9.4 L Hct 27.8 L MCV Plt Count Lymphocytes # 0.7 L APTT Sodium Potassium Chloride Carbon Dioxide BUN Creatinine Glucose POC Glucose (mg/dL) 298 H 167 H Calcium AST Troponin I Assessment and Plan Assessment: Mr. Luciano is a 73-year-old male with history of diabetes which has been uncontrolled for several years as well as end-stage renal disease on dialysis and obstructive sleep apnea for which she does not use CPAP at home. Camila ramos presents with signs of burning and tingling in his distal arms and legs with sensory abnormality present likely up to the knees on his legs and up to the elbows on his arms. This is consistent with peripheral neuropathy, and I believe this diagnosis has been complicated by his medical course in house with burning pain at this time. In addition, the patient has not been sleeping well, and he appears to exhibit some hallucinations likely consistent with delirium. Plan: 1. I will increase his gabapentin medication to 600 mg 3 times daily in effort to control burning pain secondary to peripheral neuropathy which has been exacerbated in house. 2. I will also add quetiapine 25 mg nightly as well as 12.5 mg every 6 hours as needed restlessness or hallucinations to assist in controlling sleep management as well as in-house delirium. 3. The patient has a known diagnosis of obstructive sleep apnea, and he has not been using CPAP regularly at home. It may be helpful to obtain his CPAP monitor for use in house, or utilize hospital services for CPAP at night. 4. Neurology will continue to follow the patient and make further recommendations as needed based on his clinical course. Thank you for this consult. Time with Patient: Less than 30
--- NOTE | 2024-07-19 08:15 | P.PN ---
Subjective Progress Note Date: 07/19/24 The patient is a pleasant 73-year-old gentleman with extensive cardiovascular history consistent of CAD with prior CABG and stenting as well as cardiomyopathy and aortic stenosis as well as hypertension and dyslipidemia and end-stage renal disease on dialysis who was admitted to the hospital with acute coronary syndrome and underwent a heart catheterization which revealed patent stent in the left main and patent TIAN to LAD and occluded left circumflex as well as occluded SVG to ramus intermedius and severe in-stent restenosis involving unprotected RCA. I did perform PCI of the RCA. Also I did place a temporary pacemaker because he was bradycardic. July 16, 2024 The patient was seen and evaluated this morning with his currently asymptomatic and he is unstable requiring small dose of norepinephrine. Beside that he still requiring the temporary pacer. I am going to wean the patient back from norepinephrine and monitor the patient for additional 24 hours if he did not recover he might need to have a permanent pacemaker. He is on dual antiplatelet therapy but also is on beta-narcisa and isosorbide mononitrate which I am going to stop and continue dual antiplatelet therapy along with a statin. The physical examination is remarkable for regular rhythm with a systolic murmur at the right upper sternal border with clear breathing sounds bilaterally and no edema was noted in the lower extremities July 17, 2024 The patient was seen and evaluated this morning. He continues to be in complete AV block and depending on the temporary pacemaker. The patient is needed pacemaker. 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 Castle the patient's primary finisher card tender. Beside that he is still on small dose of norepinephrine. Beside that he is on dual antiplatelet therapy along with a statin. Examination is remarkable for regular rhythm with a systolic murmur at the right and left upper sternal border with clear breathing sounds bilaterally. The patient need to undergo permanent pacemaker. July 18, 2024 The patient was seen and evaluated this morning. He seems to be asymptomatic when he was seen and evaluated this morning but he is still hemodynamically unstable requiring small dose of norepinephrine. Otherwise he underwent permanent pacemaker implantation yesterday. The chest x-ray did not show any evidence of pneumothorax. The physical examination is remarkable for regular rhythm with a systolic murmur at the right and left upper sternal border with diminished breathing sounds bilaterally and no edema was noted July 19, 2024 The patient was seen and evaluated this morning. He is still hypotensive requiring small dose of norepinephrine. I am going to stop Demadex and also increase the dose of midodrine holding to wean him from norepinephrine. Otherwise he has some change in mental status/confusion. No symptoms at this point. The physical examination is remarkable for regular rhythm with a systolic murmur at the right upper sternal border with diminished breathing sounds bilaterally and no edema was noted with the chest x-ray and blood work reviewed. Hemoglobin is stable. Assessment Acute coronary event CAD as described above Cardiomyopathy Aortic stenosis Multiple comorbid conditions End-stage renal disease on dialysis Status post permanent pacemaker Plan Stop Demadex Increase the dose of midodrine Try to wean the patient from norepinephrine Get the patient up and around Repeat the echocardiogram Follow-up with the patient Objective - Vital Signs Vital signs: Vital Signs Temp 98.4 F 07/19/24 00:02 Pulse 78 07/19/24 07:00 Resp 19 07/19/24 07:00 BP 117/82 07/19/24 07:00 Pulse Ox 100 07/19/24 07:00 FiO2 Intake & Output 07/18/24 07/19/24 07/19/24 18:59 06:59 18:59 Intake Total 853.580 744.174 91.252 Output Total 700 0 0 Balance 153.580 744.174 91.252 Weight 97.9 kg Intake: IV 130 220 20 KVO 130 220 20 Intake, IV Titration 273.580 524.174 71.252 Amount Norepinephrine 4 mg In 273.580 524.174 71.252 Sodium Chloride 0.9% 250 ml @ 0.03 MCG/KG/MIN 10. 888 mls/hr IV .[id number] [facility] Rx#:[id number] Oral 450 Output: Urine 400 0 0 Stool 300 Other: Voiding Method Urinal Urinal # Bowel Movements 1 ABP, PAP, CO, CI - Last Documented Arterial Blood Pressure 99/43 - Labs CBC & Chem 7: 07/19/24 05:25 07/19/24 05:25 Labs: Abnormal Lab Results - Last 24 Hours (Table) 07/18/24 07/18/24 07/18/24 Range/Units 11:42 15:02 16:45 RBC (4.30-5.90) m/uL Hgb (13.0-17.5) gm/dL Hct (39.0-53.0) % Lymphocytes # (1.0-4.8) k/uL Sodium (137-145) mmol/L Chloride (98-107) mmol/L BUN (9-20) mg/dL Creatinine (0.66-1.25) mg/dL Glucose (74-99) mg/dL POC Glucose (mg/dL) 186 H 251 H 202 H (70-110) mg/dL Calcium (8.4-10.2) mg/dL 07/18/24 07/19/24 07/19/24 Range/Units 19:41 05:25 05:25 RBC 2.80 L (4.30-5.90) m/uL Hgb 9.4 L (13.0-17.5) gm/dL Hct 27.8 L (39.0-53.0) % Lymphocytes # 0.7 L (1.0-4.8) k/uL Sodium 132 L (137-145) mmol/L Chloride 97 L (98-107) mmol/L BUN 44 H (9-20) mg/dL Creatinine 5.99 H (0.66-1.25) mg/dL Glucose 175 H (74-99) mg/dL POC Glucose (mg/dL) 298 H (70-110) mg/dL Calcium 8.2 L (8.4-10.2) mg/dL 07/19/24 Range/Units 06:11 RBC (4.30-5.90) m/uL Hgb (13.0-17.5) gm/dL Hct (39.0-53.0) % Lymphocytes # (1.0-4.8) k/uL Sodium (137-145) mmol/L Chloride (98-107) mmol/L BUN (9-20) mg/dL Creatinine (0.66-1.25) mg/dL Glucose (74-99) mg/dL POC Glucose (mg/dL) 167 H (70-110) mg/dL Calcium (8.4-10.2) mg/dL
--- NOTE | 2024-07-19 08:46 | XR ---
EXAMINATION TYPE: XR chest 1V portable DATE OF EXAM: 07/19/2024 8:39 AM COMPARISON: Chest radiographs from 07/16/2024 CLINICAL INDICATION: Male, 73 years old with history of SOB; TECHNIQUE: XR chest 1V portable Frontal view of the chest. FINDINGS: Lungs/Pleura: There is no evidence of pleural effusion, focal consolidation, or pneumothorax. Pulmonary vascularity: Unremarkable. Heart/mediastinum: Cardiomediastinal silhouette is enlarged. Atherosclerotic calcifications are seen in the aorta. Left atrial appendage occlusion device is present. Musculoskeletal: No acute osseous pathology. Midline sternotomy wires are noted. IMPRESSION: No acute cardiopulmonary disease/process. [facility], , 07/19/2024 8:44 AM
[2024-07-19 09:06] VITALS: BMI 32.8
[2024-07-19] MEDS: GABAPENTIN 300 MG CAP PO SCH (09:20)
[2024-07-19 11:17] LABS: Glucose,Whole Blood 248 mg/dL (70-110)
--- NOTE | 2024-07-19 11:17 | P.PN ---
Subjective Patient is seen in follow-up for end-stage renal disease. He is maintained on hemodialysis on Tuesday schedule. On Levophed. Scheduled for dialysis today. Overall feels well. Vital signs are stable. General: No acute distress. HEENT: Head exam is unremarkable. On nasal cannula. LUNGS: No audible rhonchi or wheezes. HEART: Regular rate and rhythm. ABDOMEN: No distention. EXTREMITITES: Trace edema. Objective - Vital Signs Vital signs: Vital Signs Temp 97.6 F 07/19/24 08:00 Pulse 96 07/19/24 10:15 Resp 25 H 07/19/24 10:15 BP 117/82 07/19/24 07:00 Pulse Ox 100 07/19/24 10:15 FiO2 Intake & Output 07/18/24 07/19/24 07/19/24 18:59 06:59 18:59 Intake Total 853.580 744.174 257.101 Output Total 700 0 0 Balance 153.580 744.174 257.101 Weight 97.9 kg 97.9 kg Intake: IV 130 220 100 KVO 130 220 100 Intake, IV Titration 273.580 524.174 157.101 Amount Norepinephrine 4 mg In 273.580 524.174 157.101 Sodium Chloride 0.9% 250 ml @ 0.03 MCG/KG/MIN 10. 888 mls/hr IV .[id number] [facility] Rx#:[id number] Oral 450 Output: Urine 400 0 0 Stool 300 Other: Voiding Method Urinal Urinal Urinal # Bowel Movements 1 1 ABP, PAP, CO, CI - Last Documented Arterial Blood Pressure 101/38 - Labs CBC & Chem 7: 07/19/24 05:25 07/19/24 05:25 Labs: Abnormal Lab Results - Last 24 Hours (Table) 07/18/24 07/18/24 07/18/24 Range/Units 11:42 15:02 16:45 RBC (4.30-5.90) m/uL Hgb (13.0-17.5) gm/dL Hct (39.0-53.0) % Lymphocytes # (1.0-4.8) k/uL Sodium (137-145) mmol/L Chloride (98-107) mmol/L BUN (9-20) mg/dL Creatinine (0.66-1.25) mg/dL Glucose (74-99) mg/dL POC Glucose (mg/dL) 186 H 251 H 202 H (70-110) mg/dL Calcium (8.4-10.2) mg/dL 07/18/24 07/19/24 07/19/24 Range/Units 19:41 05:25 05:25 RBC 2.80 L (4.30-5.90) m/uL Hgb 9.4 L (13.0-17.5) gm/dL Hct 27.8 L (39.0-53.0) % Lymphocytes # 0.7 L (1.0-4.8) k/uL Sodium 132 L (137-145) mmol/L Chloride 97 L (98-107) mmol/L BUN 44 H (9-20) mg/dL Creatinine 5.99 H (0.66-1.25) mg/dL Glucose 175 H (74-99) mg/dL POC Glucose (mg/dL) 298 H (70-110) mg/dL Calcium 8.2 L (8.4-10.2) mg/dL 07/19/24 Range/Units 06:11 RBC (4.30-5.90) m/uL Hgb (13.0-17.5) gm/dL Hct (39.0-53.0) % Lymphocytes # (1.0-4.8) k/uL Sodium (137-145) mmol/L Chloride (98-107) mmol/L BUN (9-20) mg/dL Creatinine (0.66-1.25) mg/dL Glucose (74-99) mg/dL POC Glucose (mg/dL) 167 H (70-110) mg/dL Calcium (8.4-10.2) mg/dL Assessment and Plan Plan: Assessment: 1. End-stage renal disease maintained on hemodialysis on Tuesday schedule. 2. Hyperkalemia secondary to chronic kidney disease and Entresto. Improved postdialysis. 3. Acute non-ST elevated LA with history of coronary artery disease status post CABG and cardiac stenting. Underwent balloon angioplasty July 15, 2024. 4. Aortic stenosis. 5. Chronic kidney disease mineral bone disease. 6. Third-degree heart block status post pacemaker placement July 17, 2024. Plan: Hemodialysis today. Maintain midodrine. Increase dose to 10 mg. Wean Levophed. Follow-up echocardiogram.
[2024-07-19] MEDS: MIDODRINE 5 MG TAB PO SCH (11:48)
[2024-07-19] MEDS ORDERED: MIDODRINE 5 MG TAB PO SCH (12:30)
--- NOTE | 2024-07-19 13:19 | P.PN ---
Subjective Progress Note Date: 07/19/24 Patient is a 73-year-old male with a past medical history significant for HFrEF, coronary artery disease with extensive cardiac history including CABG x 2 and cardiac catheterization with multiple stents, ESRD on hemodialysis (TThSa), hypertension, COPD, hyperlipidemia, insulin-dependent diabetes mellitus, and obstructive sleep apnea presented to the emergency department with a chief complaint of chest pain. He was discharged from [facility] yesterday for the same symptoms. He states that his chest pain started about 2.5 hours into dialysis and an ambulance was called. He denies taking any nitroglycerin. He states that the chest pain is middle to the left sternal chest pain that he gets almost daily, he usually the chest pain starts when he exerts himself but sometimes it occurs at rest. He rates the episodes of chest pain as sharp in the middle/left chest. The episode at dialysis was associated with lightheadedness and heaviness in the face. All of the symptoms have resolved at this time. Currently denies fever, chills, nausea, vomiting, abdominal pain, dyspnea, diaphoresis. Initial EKG: Sinus rhythm with first-degree AV block, left ventricular hypertrophy, right bundle branch block (QRS 168ms). Initial chest x-ray: No evidence of pleural effusion, focal consolidation, or pneumothorax; cardiac mediastinal silhouette enlarged and stable; airspace opacities projecting over the spine not seen on prior. Initial labs: WBC 4.2, RBC 3.3, hemoglobin 10.8, hematocrit 31.8, platelets 149, sodium 137, potassium 3.7, chloride 97, CO2 31, BUN 30, creatinine 3.66, glucose 114, troponin X1 0.292, BNP 29,700. Initial vitals: T 97.3 F, NJ 82 bpm, RR 26, BP 130/63, O2 sat of 100% on room air. 07/16. Patient seen and examined laying comfortably in bed. Yesterday he underwent cardiac catheterization due to complaint of chest pain, elevated troponin (9.750), and now has transcutaneous pacer. Pressors have been turned off. He endorses left arm weakness. Denies current chest pain, dyspnea, fever, nausea, vomiting. 07/17. Patient seen and examined laying comfortably in bed. Underwent CTH yesterday and this was negative for acute stroke. Still has temp pacemaker 07/18. Patient examined lying comfortably in bed. Yesterday he underwent placement of dual-chamber permanent pacemaker. States left arm numbness and weakness is improved. Labs today: WBC 6.2, hemoglobin 9.7, hematocrit 29.2, platelets 135, sodium 134, potassium 4.1, chloride 95, CO2 30, BUN 30, creatinine 4.73, glucose 141, calcium 8.2. Currently on Levophed. 07/19. Patient seen and examined lying comfortably in bed. Underwent placement of right radial arterial line due to concerns of episodes of hypotension and increasing demand of Levophed. Overnight had hallucinations and agitation. Currently on Levophed 0.2 mcg/kg/min. Denies chest pain, abdominal pain, dyspnea. Endorses improved numbness of the left hand. Labs today: WBC 7.7, RBC 2.8, hemoglobin 9.4, platelets 157, sodium 132, potassium 4.1, chloride 97 Pertinent positives and negatives discussed above, a complete review of systems was performed and all the other systems were negative. Physical examination: Vital signs reviewed General: Nontoxic, no distress, appears stated age, well-appearing Derm: Warm, dry, intact Head: Atraumatic, normocephalic, symmetric Eyes: EOMI, anicteric sclera Mouth: No lip lesion, mucus membranes moist Cardiovascular: S1-S2 regular, systolic murmur Lungs: CTA bilateral, no rhonchi, no rales, no accessory muscle use Abdominal: Soft, non-tender to palpation Extremities: No cyanosis, clubbing, edema. Left hand weakness Neuro: Alert, oriented x 3, gross neurological examination did not reveal any focal deficits. Cranial nerves II to XII grossly intact. Psych: Appropriate affect and mood Assessment and Plan: Patient is a 73-year-old male with a past medical history significant for HFrEF, coronary artery disease with extensive cardiac history including CABG x 2 and cardiac catheterization with multiple stents, ESRD on hemodialysis (TThSa), hypertension, COPD, hyperlipidemia, insulin-dependent diabetes mellitus, and obstructive sleep apnea admitted for acute NSTEMI. Active #. Cardiogenic shock, secondary to NSTEMI and complete AV block #. Acute NSTEMI, status post heart catheterization day 4 #. Status post placement of dual-chamber permanent pacemaker #. Moderate to severe aortic stenosis Hold Entresto Continue Levophed, wean pressors as tolerated Cortisol pending Monitor vital signs Discontinue heparin drip Monitor APTT Monitor for bleeding Aspirin 81 mg PO daily Brilinta 90 mg PO twice daily Ezetimibe 10 mg PO daily Cardiology note reviewed, repeat echo #. ICU induced delirium, likely medication related Sleep hygiene Minimize use of opioids and sedatives -Neurology started Seroquel 25 nightly #. Left arm weakness and numbness CT brainno acute intracranial hemorrhage or midline shift Neurology consulted, likely related to neuropathy rather than acute stroke Resolved #. Hypocalcemia #. Hyperkalemia Chronic #. ESRD Nephrology consulted for management of dialysis Dialysis scheduled for today Note reviewed-Midodrine increased to 10 3 times daily #. HFrEF, not in acute exacerbation, EF 45% #. Hypertension Hold Entresto and metoprolol due to hypotension Monitor vital signs #. Insulin-dependent diabetes mellitus Insulin sliding scale Accu-Cheks ACHS Monitor for hypoglycemia #. COPD, not in acute exacerbation Continue nebulizer treatments every 4 hours as needed for wheezing/shortness of breath Maintain SpO2 >90% Continue home medications #. History of CABG x 2 and multiple stents Aspirin 81 mg daily Brilinta 90 mg PO twice daily Lipitor 80 mg PO daily Hold Entresto and metoprolol as above #. Hyperlipidemia Lipitor 80 mg PO daily Zetia 10 mg PO daily #. BPH Flomax 0.4 mg PO at bedtime #. Neuropathy Gabapentin increased to 600 3 times daily per neurology, monitor mental status given patient has also ESRD F: None E: Replete if required N: Heart healthy diet A: Ambulatory DVT prophylaxis: Subcutaneous heparin three times daily Code status: Full code Anticipated discharge place: Pending clinical course I have seen and evaluated the patient today. Discussed with the resident and agree with the residents finding and plan as documented in the resident's note. Changes highlighted in blue font. Objective - Vital Signs Vital signs: Vital Signs Temp 98.4 F 07/19/24 00:02 Pulse 82 07/19/24 06:00 Resp 19 07/19/24 06:00 BP 117/82 07/19/24 00:45 Pulse Ox 99 07/19/24 06:00 FiO2 Intake & Output 07/18/24 07/18/24 07/19/24 06:59 18:59 06:59 Intake Total 442.508 853.580 744.174 Output Total 0 700 0 Balance 442.508 153.580 744.174 Weight 98.7 kg 97.9 kg Intake: IV 270 130 220 KVO 220 130 220 ceFAZolin 2 gm In Sodium 50 Chloride 0.9% 50 ml @ 100 mls/hr IVPB ONCE ONE Rx# :[id number] Intake, IV Titration 172.508 273.580 524.174 Amount Norepinephrine 4 mg In 172.508 273.580 524.174 Sodium Chloride 0.9% 250 ml @ 0.03 MCG/KG/MIN 10. 888 mls/hr IV .[id number] [facility] Rx#:[id number] Oral 450 Output: Urine 0 400 0 Stool 300 Other: Voiding Method Urinal Urinal Urinal # Bowel Movements 1 ABP, PAP, CO, CI - Last Documented Arterial Blood Pressure 89/44 - Labs CBC & Chem 7: 07/19/24 05:25 07/19/24 05:25 Labs: Abnormal Lab Results - Last 24 Hours (Table) 07/18/24 07/18/24 07/18/24 Range/Units 11:42 15:02 16:45 RBC (4.30-5.90) m/uL Hgb (13.0-17.5) gm/dL Hct (39.0-53.0) % Lymphocytes # (1.0-4.8) k/uL POC Glucose (mg/dL) 186 H 251 H 202 H (70-110) mg/dL 07/18/24 07/19/24 07/19/24 Range/Units 19:41 05:25 06:11 RBC 2.80 L (4.30-5.90) m/uL Hgb 9.4 L (13.0-17.5) gm/dL Hct 27.8 L (39.0-53.0) % Lymphocytes # 0.7 L (1.0-4.8) k/uL POC Glucose (mg/dL) 298 H 167 H (70-110) mg/dL
[2024-07-19] MEDS: MIDODRINE 5 MG TAB PO ONE (13:54)
--- NOTE | 2024-07-19 15:52 | CA ---
Transthoracic Echo Report Name: Phan Luciano Age: 73 Gender: M : 1950 Exam Date: 07/19/2024 13:02 Exam Location: [facility] Ht (in): 68 Wt (lb): 215 Ordering Physician: Donnell Radford MD ([id number]) Attending/Referring Phys: Acting Teacher Naye Torres RDCS Procedure CPT: Indications: increased vasopressors Cardiac Hx: Limited to evaluate LVF Technical Quality: Technically difficult study Contrast 1: Definity Total Dose (mL): 1 Contrast 2: Total Dose (mL): MEASUREMENTS (Male / Female) Normal Values 2D ECHO LV Diastolic Volume MOD BP 164.4 cm??? 67 - 155 / 56 - 104 cm??? LV Systolic Volume MOD BP 121.2 cm??? 22 - 58 / 19 - 49 cm??? LV Ejection Fraction MOD BP 26.3 % >= 55 % LV Cardiac Index MOD BP 1848.4 cm???/min???m??? LV Diastolic Volume MOD 4C 157.9 cm??? LV Systolic Volume MOD 4C 113.5 cm??? LV Ejection Fraction MOD 4C 28.1 % LV Cardiac Index MOD 4C 1901.0 cm???/min???m??? LV Diastolic Length 4C 8.9 cm LV Systolic Length 4C 8.7 cm LV Diastolic Volume MOD 2C 165.1 cm??? LV Systolic Volume MOD 2C 128.3 cm??? LV Ejection Fraction MOD 2C 22.3 % LV Cardiac Index MOD 2C 1575.4 cm???/min???m??? LV Diastolic Length 2C 9.3 cm LV Systolic Length 2C 8.8 cm FINDINGS Left Ventricle Left ventricular ejection fraction is estimated at 20-25 %. Mildly increased left ventricular diastolic volume. Severely increased left ventricular systolic volume. Severely decreased left ventricular ejection fraction. Right Ventricle Right Atrium Left Atrium Mitral Valve Aortic Valve Tricuspid Valve Pulmonic Valve Pericardium Aorta CONCLUSIONS Severe LV systolic dysfunction with an ejection fraction of 20-25% Previewed by: Dr. Chapito Sheets MD (Electronically Signed) Final Date: 19 July 2024 15:52
[2024-07-19 16:43] LABS: Glucose,Whole Blood 146 mg/dL (70-110)
[2024-07-19 20:12] LABS: Glucose,Whole Blood 224 mg/dL (70-110)
[2024-07-19] MEDS: QUEtiapine 25 MG TAB PO SCH (20:40)
[2024-07-20 06:34] LABS: African American GFR (CKD) 13 (>60 ml/min/1.73 sqM); Anion Gap 9 mmol/L; Blood Urea Nitrogen 32 mg/dL (9-20); Calcium 8.1 mg/dL (8.4-10.2); Carbon Dioxide 27 mmol/L (22-30); Chloride 97 mmol/L (98-107); Glucose 126 mg/dL (74-99); Non-African American GFR(CKD) 11 (>60 ml/min/1.73 sqM); Potassium 3.5 mmol/L (3.5-5.1); Sodium 133 mmol/L (137-145)
[2024-07-20 06:39] LABS: Glucose,Whole Blood 98 mg/dL (70-110)
--- NOTE | 2024-07-20 07:02 | P.PN ---
Subjective Progress Note Date: 07/20/24 The patient is a pleasant 73-year-old gentleman with extensive cardiovascular history consistent of CAD with prior CABG and stenting as well as cardiomyopathy and aortic stenosis as well as hypertension and dyslipidemia and end-stage renal disease on dialysis who was admitted to the hospital with acute coronary syndrome and underwent a heart catheterization which revealed patent stent in the left main and patent TIAN to LAD and occluded left circumflex as well as occluded SVG to ramus intermedius and severe in-stent restenosis involving unprotected RCA. I did perform PCI of the RCA. Also I did place a temporary pacemaker because he was bradycardic. July 16, 2024 The patient was seen and evaluated this morning with his currently asymptomatic and he is unstable requiring small dose of norepinephrine. Beside that he still requiring the temporary pacer. I am going to wean the patient back from norepinephrine and monitor the patient for additional 24 hours if he did not recover he might need to have a permanent pacemaker. He is on dual antiplatelet therapy but also is on beta-narcisa and isosorbide mononitrate which I am going to stop and continue dual antiplatelet therapy along with a statin. The physical examination is remarkable for regular rhythm with a systolic murmur at the right upper sternal border with clear breathing sounds bilaterally and no edema was noted in the lower extremities July 17, 2024 The patient was seen and evaluated this morning. He continues to be in complete AV block and depending on the temporary pacemaker. The patient is needed pacemaker. 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 Beside that he is still on small dose of norepinephrine. Beside that he is on dual antiplatelet therapy along with a statin. Examination is remarkable for regular rhythm with a systolic murmur at the right and left upper sternal border with clear breathing sounds bilaterally. The patient need to undergo permanent pacemaker. July 18, 2024 The patient was seen and evaluated this morning. He seems to be asymptomatic when he was seen and evaluated this morning but he is still hemodynamically unstable requiring small dose of norepinephrine. Otherwise he underwent permanent pacemaker implantation yesterday. The chest x-ray did not show any evidence of pneumothorax. The physical examination is remarkable for regular rhythm with a systolic murmur at the right and left upper sternal border with diminished breathing sounds bilaterally and no edema was noted July 19, 2024 The patient was seen and evaluated this morning. He is still hypotensive requiring small dose of norepinephrine. I am going to stop Demadex and also increase the dose of midodrine holding to wean him from norepinephrine. Otherwise he has some change in mental status/confusion. No symptoms at this point. The physical examination is remarkable for regular rhythm with a systolic murmur at the right upper sternal border with diminished breathing sounds bilaterally and no edema was noted with the chest x-ray and blood work reviewed. Hemoglobin is stable. July 28, 2024 The patient was seen and evaluated this morning. Unfortunately he continues to be hypotensive requiring norepinephrine and beside that he underwent a limited echo yesterday and that showed severe cardiomyopathy with EF around 20%. He continues to be on norepinephrine at the small dose. Beside that the dose of midodrine has increased yesterday. Currently he is not on any blood pressure medication we can stop to improve the blood pressure. Overall the prognosis is very poor and that was discussed with the at bedside. He is slightly lethargic which is could be related to multiple factors including the metabolic factor. He is on dialysis. The chest x-ray was reviewed. Blood work was reviewed. No hemoglobin as of now. The physical examination is remarkable for regular rhythm with diminished breathing sounds bilaterally and mild bilateral lower extremities edema Assessment Acute coronary event CAD as described above Cardiomyopathy Aortic stenosis Multiple comorbid conditions End-stage renal disease on dialysis Status post permanent pacemaker Plan Continue the current medical regimen Continue supporting the blood pressure Consider adding dobutamine Consider mechanical support Consider transferring the patient into a tertiary facility as well Obtain right upper extremities arterial duplex study to rule out occlusive disease with a falsely low blood pressure Continue dual antiplatelet therapy Follow-up with the patient Objective - Vital Signs Vital signs: Vital Signs Temp 97.6 F 07/20/24 04:00 Pulse 92 07/20/24 06:30 Resp 22 07/20/24 06:30 BP 107/55 07/19/24 22:30 Pulse Ox 100 07/20/24 06:30 FiO2 50 07/20/24 04:00 Intake & Output 07/19/24 07/20/24 07/20/24 18:59 06:59 18:59 Intake Total 1497.790 728.000 Output Total 2400 650 Balance -902.210 78.000 Weight 97.9 kg 102.2 kg Intake: IV 240 220 KVO 240 220 Intake, IV Titration 857.790 508.000 Amount Norepinephrine 4 mg In 857.790 508.000 Sodium Chloride 0.9% 250 ml @ 0.03 MCG/KG/MIN 10. 888 mls/hr IV .[id number] [facility] Rx#:[id number] Hemodialysis 400 Output: Urine 0 350 Post Void Residual 300 Hemodialysis 1400 Hemodialysis Net Amount 1000 Other: Voiding Method Urinal Urinal # Voids 1 # Bowel Movements 1 1 ABP, PAP, CO, CI - Last Documented Arterial Blood Pressure 96/37 - Labs CBC & Chem 7: 07/19/24 05:25 07/20/24 06:00 Labs: Abnormal Lab Results - Last 24 Hours (Table) 07/19/24 07/19/24 07/19/24 Range/Units 05:25 10:08 11:16 Sodium 132 L (137-145) mmol/L Chloride 97 L (98-107) mmol/L BUN 44 H (9-20) mg/dL Creatinine 5.99 H (0.66-1.25) mg/dL Glucose 175 H (74-99) mg/dL POC Glucose (mg/dL) 248 H (70-110) mg/dL Calcium 8.2 L (8.4-10.2) mg/dL Cortisol 25.6 H (3.1-22.4) UG/DL 07/19/24 07/19/24 07/20/24 Range/Units 16:41 20:10 06:00 Sodium 133 L (137-145) mmol/L Chloride 97 L (98-107) mmol/L BUN 32 H (9-20) mg/dL Creatinine 4.70 H (0.66-1.25) mg/dL Glucose 126 H (74-99) mg/dL POC Glucose (mg/dL) 146 H 224 H (70-110) mg/dL Calcium 8.1 L (8.4-10.2) mg/dL Cortisol (3.1-22.4) UG/DL
[2024-07-20] MEDS ORDERED: HEPARIN SODIUM 1,000 UN/ML (10ML VL) IV PRN (07:29)
[2024-07-20 07:59] LABS: HCT 26.5 % (39.0-53.0); HGB 9.1 gm/dL (13.0-17.5); MCH 33.8 pg (25.0-35.0); MCHC 34.3 g/dL (31.0-37.0); MCV 98.6 fL (80.0-100.0); Macrocytosis Slight; Mean Platelet Volume 9.6; Platelet Count 160 k/uL (150-450); RBC 2.68 m/uL (4.30-5.90); RDW 14.7 % (11.5-15.5); WBC 7.5 k/uL (3.8-10.6)
[2024-07-20] MEDS: HEPARIN SOD,PORK IN 0.45% NACL 25,000 UNIT in 0.45% NACL 1 250ML.BAG IV SCH (08:07)
--- NOTE | 2024-07-20 08:34 | P.PN ---
Subjective Progress Note Date: 07/20/24 Principal diagnosis: History of non-ST elevation myocardial infarction status post stenting pacemaker with altered mental status and painful peripheral neuropathy. Mr. Luciano is a 73-year-old right-handed male with medical history of congestive heart failure, coronary artery disease, end-stage renal disease on dialysis, hypertension, COPD, hyperlipidemia, diabetes with peripheral neuropathy as well as obstructive sleep apnea for which he has not been using CPAP at home. He was admitted to [facility] on July 14 with complaints of chest pain during hemodialysis. He also notes some chest pain as well as with exertion and while he uses the restroom and he also noted some lightheadedness. He has been admitted to the ICU and received pacemaker placement on July 17. It has also been noted by staff that the patient complains of some intermittent burning sensations to his arms and legs. He has a history of diabetes since the and has been very intermittent with his care. He is currently on insulin pump as per his . In addition end-stage renal disease may complicate neuropathy as well. The patient was very drowsy and difficult to arouse this morning, but he would wake up and follow simple commands. On neurologic testing, the patient did not respond to pain as well on his distal toes and fingers as well he did on his upper legs as well as upper arms. It appears he has a fairly significant peripheral neuropathy which is likely been exacerbated by his hospital course at this time. He is taking gabapentin 300 mg twice daily in house, and his is not sure if this is his dose at home; however, the patient did not use this medication frequently at home, though he did not complain of burning pain at home. It is also been noted by the and nursing staff that he has been awake during the night, and that also during the day he may have some hallucinations as he talks to people who are not in the room. His said he stated "goodbye" to his family yesterday, and the nurse notes that he has been reaching for objects that are not present. He also has a diagnosis of likely essential tremor as well, and his notes that he has taken medication for this in the past. He has a family history in his grandparents of "Parkinson's", and he is also exposed to agent orange in [place]. Neurology has been consulted for further management recommendations. On July 19, his gabapentin was increased to 600 mg 3 times daily. Seroquel was also added with 25 mg nightly and 12.5 mg every 6 hours as needed restlessness or hallucinations. When reexamined on July 20, it was noted the patient had a restless night despite Seroquel until BiPAP was added and then he slept well. He does have a history of sleep apnea at home but was not using his CPAP at night. The patient been noted to be more confused recently, but he is alert and responsive. He denies pain in his fingers and toes this morning, and is alert to place and date. He has some difficulty with complex commands, but is intact with simple commands. On exam, he is grossly nonfocal, but he does exhibit evidence of asterixis in his upper extremities with intermittent loss of muscle tone, suggestive of metabolic encephalopathy. Assessment and Plan Assessment: Mr. Luciano is a 73-year-old male with history of diabetes which has been uncontrolled for several years as well as end-stage renal disease on dialysis and obstructive sleep apnea for which she does not use CPAP at home. Camila ramos presents with signs of burning and tingling in his distal arms and legs with sensory abnormality present likely up to the knees on his legs and up to the elbows on his arms. This is consistent with peripheral neuropathy, and I believe this diagnosis has been complicated by his medical course in house with burning pain at this time. In addition, the patient has not been sleeping well, and he appears to exhibit some hallucinations likely consistent with delirium. Plan: 1. Patient's gabapentin has been increased to 600 mg 3 times daily and this appears to be controlling his painful peripheral neuropathy at this time. We will continue with this and should continue into outpatient regimen as well. 2. He is on Seroquel 25 mg nightly in addition to 12.5 mg every 6 hours as needed agitation or hallucinations. He is slightly more confused this morning with evidence of asterixis, which is suggestive of metabolic encephalopathy. I suspect his mental status should improve with improvement in his overall clinical condition as well as a number of medications he is on. His is informed that his mental status improvement may not be rapid. 3. I recommend continuing with BiPAP at night because of his history of obstructive sleep apnea. This will improve his mentation during the day likely. 4. Unfortunately, neurology will not be available over this weekend, but Dr. Tavon Camejo will continue following the patient beginning July 23. Objective - Vital Signs Vital signs: Vital Signs Temp 97.6 F 07/20/24 04:00 Pulse 93 07/20/24 07:30 Resp 19 07/20/24 07:30 BP 85/36 07/20/24 07:00 Pulse Ox 100 07/20/24 07:30 FiO2 50 07/20/24 04:00 Intake & Output 07/19/24 07/20/24 07/20/24 18:59 06:59 18:59 Intake Total 1497.790 728.000 330.858 Output Total 2400 650 0 Balance -902.210 78.000 330.858 Weight 97.9 kg 102.2 kg Intake: IV 240 220 20 KVO 240 220 20 Intake, IV Titration 857.790 508.000 310.858 Amount Norepinephrine 4 mg In 857.790 508.000 310.858 Sodium Chloride 0.9% 250 ml @ 0.03 MCG/KG/MIN 10. 888 mls/hr IV .[id number] [facility] Rx#:[id number] Hemodialysis 400 Output: Urine 0 350 0 Post Void Residual 300 Hemodialysis 1400 Hemodialysis Net Amount 1000 Other: Voiding Method Urinal Urinal # Voids 1 # Bowel Movements 1 1 ABP, PAP, CO, CI - Last Documented Arterial Blood Pressure 91/33 - Labs CBC & Chem 7: 07/20/24 06:00 07/20/24 06:00 Labs: Abnormal Lab Results - Last 24 Hours (Table) 07/19/24 07/19/24 07/19/24 Range/Units 10:08 11:16 16:41 RBC (4.30-5.90) m/uL Hgb (13.0-17.5) gm/dL Hct (39.0-53.0) % Sodium (137-145) mmol/L Chloride (98-107) mmol/L BUN (9-20) mg/dL Creatinine (0.66-1.25) mg/dL Glucose (74-99) mg/dL POC Glucose (mg/dL) 248 H 146 H (70-110) mg/dL Calcium (8.4-10.2) mg/dL Cortisol 25.6 H (3.1-22.4) UG/DL 07/19/24 07/20/2407/20/24 Range/Units 20:10 06:00 06:00 RBC 2.68 L (4.30-5.90) m/uL Hgb 9.1 L (13.0-17.5) gm/dL Hct 26.5 L (39.0-53.0) % Sodium 133 L (137-145) mmol/L Chloride 97 L (98-107) mmol/L BUN 32 H (9-20) mg/dL Creatinine 4.70 H (0.66-1.25) mg/dL Glucose 126 H (74-99) mg/dL POC Glucose (mg/dL) 224 H (70-110) mg/dL Calcium 8.1 L (8.4-10.2) mg/dL Cortisol (3.1-22.4) UG/DL
[2024-07-20 08:41] LABS: INR 1.7 (<1.2); Partial Thromboplastin Time 29.2 sec (22.0-30.0); Prothrombin Time 17.4 sec (10.0-12.5)
[2024-07-20 09:17] VITALS: TEMP 98
[2024-07-20 09:54] LABS: Glucose,Whole Blood 133 mg/dL (70-110)
--- NOTE | 2024-07-20 11:20 | P.PN ---
Subjective Patient is seen in follow-up for end-stage renal disease. He is maintained on hemodialysis on Tuesday schedule. On Levophed. Dobutamine being started. Mentation worse. Family present at bedside. Vital signs are stable. General: Resting in bed. HEENT: Head exam is unremarkable. On nasal cannula. LUNGS: No audible rhonchi or wheezes. HEART: Regular rate and rhythm. ABDOMEN: No distention. EXTREMITITES: Trace edema. Objective - Vital Signs Vital signs: Vital Signs Temp 98.0 F 07/20/24 08:00 Pulse 91 07/20/24 10:00 Resp 21 07/20/24 10:00 BP 100/62 07/20/24 10:00 Pulse Ox 100 07/20/24 10:00 FiO2 50 07/20/24 04:00 Intake & Output 07/19/24 07/20/24 07/20/24 18:59 06:59 18:59 Intake Total 1497.790 728.000 390.858 Output Total 2400 650 0 Balance -902.210 78.000 390.858 Weight 97.9 kg 102.2 kg Intake: IV 240 220 80 KVO 240 220 80 Intake, IV Titration 857.790 508.000 310.858 Amount Norepinephrine 4 mg In 857.790 508.000 310.858 Sodium Chloride 0.9% 250 ml @ 0.03 MCG/KG/MIN 10. 888 mls/hr IV .[id number] [facility] Rx#:[id number] Hemodialysis 400 Output: Urine 0 350 0 Post Void Residual 300 Hemodialysis 1400 Hemodialysis Net Amount 1000 Other: Voiding Method Urinal Urinal Urinal # Voids 1 # Bowel Movements 1 1 ABP, PAP, CO, CI - Last Documented Arterial Blood Pressure 78/27 - Labs CBC & Chem 7: 07/20/24 06:00 07/20/24 06:00 Labs: Abnormal Lab Results - Last 24 Hours (Table) 07/19/24 07/19/24 07/19/24 Range/Units 10:08 16:41 20:10 RBC (4.30-5.90) m/uL Hgb (13.0-17.5) gm/dL Hct (39.0-53.0) % PT (10.0-12.5) sec INR (<1.2) Sodium (137-145) mmol/L Chloride (98-107) mmol/L BUN (9-20) mg/dL Creatinine (0.66-1.25) mg/dL Glucose (74-99) mg/dL POC Glucose (mg/dL) 146 H 224 H (70-110) mg/dL Calcium (8.4-10.2) mg/dL Cortisol 25.6 H (3.1-22.4) UG/DL 07/20/24 07/20/24 07/20/24 Range/Units 06:00 06:00 08:11 RBC 2.68 L (4.30-5.90) m/uL Hgb 9.1 L (13.0-17.5) gm/dL Hct 26.5 L (39.0-53.0) % PT 17.4 H (10.0-12.5) sec INR 1.7 H (<1.2) Sodium 133 L (137-145) mmol/L Chloride 97 L (98-107) mmol/L BUN 32 H (9-20) mg/dL Creatinine 4.70 H (0.66-1.25) mg/dL Glucose 126 H (74-99) mg/dL POC Glucose (mg/dL) (70-110) mg/dL Calcium 8.1 L (8.4-10.2) mg/dL Cortisol (3.1-22.4) UG/DL 07/20/24 Range/Units 09:52 RBC (4.30-5.90) m/uL Hgb (13.0-17.5) gm/dL Hct (39.0-53.0) % PT (10.0-12.5) sec INR (<1.2) Sodium (137-145) mmol/L Chloride (98-107) mmol/L BUN (9-20) mg/dL Creatinine (0.66-1.25) mg/dL Glucose (74-99) mg/dL POC Glucose (mg/dL) 133 H (70-110) mg/dL Calcium (8.4-10.2) mg/dL Cortisol (3.1-22.4) UG/DL Assessment and Plan Plan: Assessment: 1. End-stage renal disease maintained on hemodialysis on [place] Thursday Saturday schedule. 2. Hyperkalemia secondary to chronic kidney disease and Entresto. Improved postdialysis. 3. Acute non-ST elevated SC with history of coronary artery disease status post CABG and cardiac stenting. Underwent balloon angioplasty July 15, 2024. 4. Aortic stenosis. 5. Chronic kidney disease mineral bone disease. 6. Third-degree heart block status post pacemaker placement July 17, 2024. 7. Cardiomyopathy ejection fraction of 20 to 25%. Plan: Hemodialysis tomorrow. Maintain midodrine. Dobutamine being added. Prognosis guarded. Comfort measures being considered.
[2024-07-20] MEDS: DOBUTamine DRIP 500 MG in DEXTROSE/WATER 1 250ML.BAG IV SCH (11:34)
[2024-07-20] MEDS: EPINEPHrine 4 MG in DEXTROSE 5% IN WATER 250 ML IV SCH (11:34)
[2024-07-20] MEDS: ALBUMIN HUMAN 5% 250 ML in EMPTY BAG 1 BAG IVPB ONE (11:34)
[2024-07-20 11:43] VITALS: BP 103/57; PULSE 80; RESP 26
--- NOTE | 2024-07-20 11:43 | P.PN ---
Subjective Progress Note Date: 07/20/24 Patient is a 73-year-old male with a past medical history significant for HFrEF, coronary artery disease with extensive cardiac history including CABG x 2 and cardiac catheterization with multiple stents, ESRD on hemodialysis (TThSa), hypertension, COPD, hyperlipidemia, insulin-dependent diabetes mellitus, and obstructive sleep apnea presented to the emergency department with a chief complaint of chest pain. He was discharged from [facility] yesterday for the same symptoms. He states that his chest pain started about 2.5 hours into dialysis and an ambulance was called. He denies taking any nitroglycerin. He states that the chest pain is middle to the left sternal chest pain that he gets almost daily, he usually the chest pain starts when he exerts himself but sometimes it occurs at rest. He rates the episodes of chest pain as sharp in the middle/left chest. The episode at dialysis was associated with lightheadedness and heaviness in the face. All of the symptoms have resolved at this time. Currently denies fever, chills, nausea, vomiting, abdominal pain, dyspnea, diaphoresis. Initial EKG: Sinus rhythm with first-degree AV block, left ventricular hypertrophy, right bundle branch block (QRS 168ms). Initial chest x-ray: No evidence of pleural effusion, focal consolidation, or pneumothorax; cardiac mediastinal silhouette enlarged and stable; airspace opacities projecting over the spine not seen on prior. Initial labs: WBC 4.2, RBC 3.3, hemoglobin 10.8, hematocrit 31.8, platelets 149, sodium 137, potassium 3.7, chloride 97, CO2 31, BUN 30, creatinine 3.66, glucose 114, troponin X1 0.292, BNP 29,700. Initial vitals: T 97.3 F, DE 82 bpm, RR 26, BP 130/63, O2 sat of 100% on room air. 07/16. Patient seen and examined laying comfortably in bed. Yesterday he underwent cardiac catheterization due to complaint of chest pain, elevated troponin (9.750), and now has transcutaneous pacer. Pressors have been turned off. He endorses left arm weakness. Denies current chest pain, dyspnea, fever, nausea, vomiting. 07/17. Patient seen and examined laying comfortably in bed. Underwent CTH yesterday and this was negative for acute stroke. Still has temp pacemaker 07/18. Patient examined lying comfortably in bed. Yesterday he underwent placement of dual-chamber permanent pacemaker. States left arm numbness and weakness is improved. Labs today: WBC 6.2, hemoglobin 9.7, hematocrit 29.2, platelets 135, sodium 134, potassium 4.1, chloride 95, CO2 30, BUN 30, creatinine 4.73, glucose 141, calcium 8.2. Currently on Levophed. 07/19. Patient seen and examined lying comfortably in bed. Underwent placement of right radial arterial line due to concerns of episodes of hypotension and increasing demand of Levophed. Overnight had hallucinations and agitation. Currently on Levophed 0.2 mcg/kg/min. Denies chest pain, abdominal pain, dyspnea. Endorses improved numbness of the left hand. Labs today: WBC 7.7, RBC 2.8, hemoglobin 9.4, platelets 157, sodium 132, potassium 4.1, chloride 97. 07/20. Patient seen and examined in bed. Family present at bedside. Spoke with family about goals of care. Hospice care was discussed and patient/family is agreeable. Labs today: WBC 7.5, hemoglobin 9.1, platelets 160, PT 17.4, INR 1.7, PTT 29.2, sodium 133, potassium 3.5, chloride 97, BUN 32, creatinine 4.7, glucose 126. Cortisol 25.6. Pertinent positives and negatives discussed above, a complete review of systems was performed and all the other systems were negative. Physical examination: Vital signs reviewed General: Nontoxic, no acute distress Derm: Warm, dry, intact Head: Atraumatic, normocephalic, symmetric Eyes: EOMI, anicteric sclera Mouth: No lip lesion, mucus membranes moist Cardiovascular: S1-S2 regular, systolic murmur Lungs: CTA bilateral, no rhonchi, no rales, no accessory muscle use Abdominal: Soft, non-tender to palpation Extremities: No cyanosis, clubbing, edema. Left hand weakness Neuro: Alert, oriented x 3, gross neurological examination did not reveal any focal deficits. Cranial nerves II to XII grossly intact. Psych: Appropriate affect and mood Assessment and Plan: Patient is a 73-year-old male with a past medical history significant for HFrEF, coronary artery disease with extensive cardiac history including CABG x 2 and cardiac catheterization with multiple stents, ESRD on hemodialysis (TThSa), hypertension, COPD, hyperlipidemia, insulin-dependent diabetes mellitus, and obstructive sleep apnea admitted for acute NSTEMI. Active #. Acute ischemic cardiomyopathy #. HF with reduced EF now 20% (45% prior to admission) #. Cardiogenic shock, secondary to NSTEMI and complete AV block #. Acute NSTEMI, status post heart catheterization day 5 #. Status post placement of dual-chamber permanent pacemaker #. Moderate to severe aortic stenosis Recommend adding IV dobutamine-family declined Hold Entresto Continue Levophed Monitor vital signs Aspirin 81 mg PO daily Brilinta 90 mg PO twice daily Ezetimibe 10 mg PO daily Discussed with cardiology, only other possibility is during mechanical support but family is declining #. Right IJ DVT Patient started on heparin drip, monitor APTT, monitor for bleeding #. ICU induced delirium, likely medication related Sleep hygiene Minimize use of opioids and sedatives #. Left arm weakness and numbness CT brainno acute intracranial hemorrhage or midline shift Neurology following Resolved #. Hypocalcemia #. Hyperkalemia Chronic #. ESRD Nephrology consulted for management of dialysis Dialysis scheduled for today #. Hypertension Hold Entresto and metoprolol due to hypotension Monitor vital signs #. Insulin-dependent diabetes mellitus Insulin sliding scale Accu-Cheks ACHS Monitor for hypoglycemia #. COPD, not in acute exacerbation Continue nebulizer treatments every 4 hours as needed for wheezing/shortness of breath Maintain SpO2 >90% Continue home medications #. History of CABG x 2 and multiple stents Aspirin 81 mg daily Brilinta 90 mg PO twice daily Lipitor 80 mg PO daily Hold Entresto and metoprolol as above #. Hyperlipidemia Lipitor 80 mg PO daily Zetia 10 mg PO daily #. BPH Flomax 0.4 mg PO at bedtime #. Neuropathy Gabapentin 300 mg PO daily F: None E: Replete if required N: Heart healthy diet A: Ambulatory DVT prophylaxis: Heparin drip Code status: NO CODE I have seen and evaluated the patient today. Discussed with the resident and agree with the residents finding and plan as documented in the resident's note. Changes highlighted in blue font. Objective - Vital Signs Vital signs: Vital Signs Temp 97.6 F 07/20/24 04:00 Pulse 93 07/20/24 07:30 Resp 19 07/20/24 07:30 BP 85/36 07/20/24 07:00 Pulse Ox 100 07/20/24 07:30 FiO2 50 07/20/24 04:00 Intake & Output 07/19/24 07/20/24 07/20/24 18:59 06:59 18:59 Intake Total 1497.790 728.000 274 Output Total 2400 650 0 Balance -902.210 78.000 274 Weight 97.9 kg 102.2 kg Intake: IV 240 220 20 KVO 240 220 20 Intake, IV Titration 857.790 508.000 254 Amount Norepinephrine 4 mg In 857.790 508.000 254 Sodium Chloride 0.9% 250 ml @ 0.03 MCG/KG/MIN 10. 888 mls/hr IV .[id number] [facility] Rx#:[id number] Hemodialysis 400 Output: Urine 0 350 0 Post Void Residual 300 Hemodialysis 1400 Hemodialysis Net Amount 1000 Other: Voiding Method Urinal Urinal # Voids 1 # Bowel Movements 1 1 ABP, PAP, CO, CI - Last Documented Arterial Blood Pressure 91/33 - Labs CBC & Chem 7: 07/20/24 06:00 07/20/24 06:00 Labs: Abnormal Lab Results - Last 24 Hours (Table) 07/19/24 07/19/24 07/19/24 Range/Units 10:08 11:16 16:41 RBC (4.30-5.90) m/uL Hgb (13.0-17.5) gm/dL Hct (39.0-53.0) % Sodium (137-145) mmol/L Chloride (98-107) mmol/L BUN (9-20) mg/dL Creatinine (0.66-1.25) mg/dL Glucose (74-99) mg/dL POC Glucose (mg/dL) 248 H 146 H (70-110) mg/dL Calcium (8.4-10.2) mg/dL Cortisol 25.6 H (3.1-22.4) UG/DL 07/19/24 07/20/24 07/20/24 Range/Units 20:10 06:00 06:00 RBC 2.68 L (4.30-5.90) m/uL Hgb 9.1 L (13.0-17.5) gm/dL Hct 26.5 L (39.0-53.0) % Sodium 133 L (137-145) mmol/L Chloride 97 L (98-107) mmol/L BUN 32 H (9-20) mg/dL Creatinine 4.70 H (0.66-1.25) mg/dL Glucose 126 H (74-99) mg/dL POC Glucose (mg/dL) 224 H (70-110) mg/dL Calcium 8.1 L (8.4-10.2) mg/dL Cortisol (3.1-22.4) UG/DL
[2024-07-20] MEDS ORDERED: LORazepam 2 MG/ML INJ IV PRN (12:49)
[2024-07-20] MEDS ORDERED: MORPHINE SULFATE 4 MG/ML SYRINGE IV PRN (12:49)
[2024-07-20] MEDS: MORPHINE SULFATE (100 MG/2 ML) 100 MG in SODIUM CHLORIDE 0.9% 100 ML IV SCH (13:12)
[2024-07-20] MEDS: ATROPINE OPHTH SOLN 1% 5ML BTL SUBLINGUAL PRN (13:13)
--- NOTE | 2024-07-20 13:51 | P.DS ---
Providers Date of admission: 07/14/24 13:17 Expected date of discharge: 07/20/24 Attending physician: Damien Fung Consults: 07/14/24 13:17 Consult Physician Urgent Consulting Provider: Jaylyn Nelson Consult Reason/Comments: nstemi Do you want consulting provider notified?: Yes Consult Physician Urgent Consulting Provider: Saritha Cadena Consult Reason/Comments: esrd on hd Do you want consulting provider notified?: Yes 07/15/24 15:40 Consult Physician Routine Consulting Provider: Jaylyn Nelson Consult Reason/Comments: Post Interventional patient Do you want consulting provider notified?: Already Contacted 07/18/24 10:20 Consult Physician Routine Consulting Provider: Tavon Camejo Consult Reason/Comments: left arm weakness Do you want consulting provider notified?: Yes 07/18/24 18:59 Consult Physician Urgent Consulting Provider: Leilani Potter Consult Reason/Comments: icu management Do you want consulting provider notified?: Already Contacted Primary care physician: Marlon [facility] Course: Final Diagnosis: #. Acute ischemic cardiomyopathy #. Heart failure with reduced ejection fraction, now 20% #. Cardiogenic shock, secondary to NSTEMI and complete AV block #. Acute NSTEMI, status post heart catheterization #. Status postplacement of dual-chamber permanent pacemaker #. Moderate to severe aortic stenosis #. Right IJ DVT #. ICU induced delirium, likely medication related #. Left arm weakness and numbness #. ESRD on hemodialysis (TThSa) #. Hypertension #. Insulin-dependent diabetes mellitus #. COPD, not in acute exacerbation #. History of CABG x 2 and multiple stents #. Hyperlipidemia #. BPH #. Neuropathy Hospital Course: Patient is a 73-year-old male with a past medical history significant for HFrEF, coronary artery disease with extensive cardiac history including CABG x 2 and cardiac catheterization with multiple stents, ESRD on hemodialysis (TThSa), hypertension, COPD, hyperlipidemia, insulin-dependent diabetes mellitus, and obstructive sleep apnea presented to the emergency department with a chief complaint of chest pain. He was discharged from [facility] yesterday fo r the same symptoms. He states that his chest pain started about 2.5 hours into dialysis and an ambulance was called. He denies taking any nitroglycerin. He states that the chest pain is middle to the left sternal chest pain that he gets almost daily, he usually the chest pain starts when he exerts himself but sometimes it occurs at rest. He rates the episodes of chest pain as sharp in the middle/left chest. The episode at dialysis was associated with lightheadedness and heaviness in the face. All of the symptoms have resolved at this time. Currently denies fever, chills, nausea, vomiting, abdominal pain, dyspnea, diaphoresis. Initial EKG: Sinus rhythm with first-degree AV block, left ventricular hypertrophy, right bundle branch block (QRS 168ms). Initial chest x-ray: No evidence of pleural effusion, focal consolidation, or pneumothorax; cardiac mediastinal silhouette enlarged and stable; airspace opacities projecting over the spine not seen on prior. Initial labs: WBC 4.2, R BC 3.3, hemoglobin 10.8, hematocrit 31.8, platelets 149, sodium 137, potassium 3.7, chloride 97, CO2 31, BUN 30, creatinine 3.66, glucose 114, troponin X1 0.292, BNP 29,700. Initial vitals: T 97.3 F, ND 82 bpm, RR 26, BP 130/63, O2 sat of 100% on room air. Cardiology was consulted. Cardiac catheterization was performed as well as placement of dual-chamber permanent pacemaker. He continued to require increasing dosage of Levophed. Ejection fraction decreased to 20%. Cardiology recommended mechanical support but patient and family declined. Goals of care discussion was had with patient and family and hospice/comfort care was agreed upon. Patient at 1325 on 07/20/2024. I have seen and evaluated the patient today. Discussed with the resident and agree with the residents finding and plan as documented in the resident's note. Changes highlighted in blue font. Plan - Discharge Summary Discharge Rx Participant: No New Discharge Prescriptions: No Action Ezetimibe [Zetia] 10 mg PO DAILY Ferrous Sulfate [Iron (65 MG Elemental)] 325 mg PO DAILY Insulin Aspart (For Pump) [NovoLOG (For Pump)] 0.01 unit SQ-PUMP CONTINUOUS Pramipexole [Mirapex] 0.5 mg PO BID PRN PRN Reason: Restless legs Albuterol Inhaler [Ventolin Hfa Inhaler] 2 puff INHALATION RT-Q4H PRN PRN Reason: Shortness Of Breath Glucagon Emergency Kit 1 mg IM ONCE PRN PRN Reason: Hypoglycemia Escitalopram [Lexapro] 10 mg PO DAILY Cetirizine HCl [Zyrtec] 10 mg PO DAILY Rosuvastatin [Crestor] 10 mg PO HS Metoprolol Tartrate [Lopressor] 25 mg PO BID 30 Days #60 tab Nitroglycerin Sl Tabs [Nitrostat] 0.4 mg SL Q5M PRN PRN Reason: Chest Pain Midodrine [ProAmatine] 10 mg PO AC-TID 30 Days #90 tab Ranolazine [Ranexa] 1,000 mg PO BID 30 Days #120 tab Isosorbide Mononitrate ER [Imdur] 30 mg PO BID #60 tab Aspirin EC [Ecotrin Low Dose] 81 mg PO DAILY Tamsulosin [Flomax] 0.4 mg PO HS ALPRAZolam [Xanax] 0.5 mg PO HS PRN PRN Reason: Severe Anxiety Cholecalciferol [Vitamin D3 (25 Mcg = 1000 Iu)] 50 mcg PO DAILY Folic Acid/Vit B Complex and C [Nephro-Pooja Tablet] 0.8 mg PO DAILY Torsemide [Demadex] 40 mg PO SUMOWEFR Clopidogrel [Plavix] 75 mg PO DAILY #30 tab Topiramate [Topamax] 25 mg PO BID Sacubitril/Valsartan [Entresto 24 mg-26 mg Tablet] 1 tab PO BID Discharge Medication List Ezetimibe [Zetia] 10 mg PO DAILY 05/19/16 [History] Ferrous Sulfate [Iron (65 MG Elemental)] 325 mg PO DAILY 05/19/16 [History] Insulin Aspart (For Pump) [NovoLOG (For Pump)] 0.01 unit SQ-PUMP CONTINUOUS 05/28/18 [History] Pramipexole [Mirapex] 0.5 mg PO BID PRN 05/02/19 [History] Albuterol Inhaler [Ventolin Hfa Inhaler] 2 puff INHALATION RT-Q4H PRN 08/10/21 [History] Aspirin EC [Ecotrin Low Dose] 81 mg PO DAILY 02/21/22 [History] Glucagon Emergency Kit 1 mg IM ONCE PRN 02/21/22 [History] Escitalopram [Lexapro] 10 mg PO DAILY 01/01/23 [History] ALPRAZolam [Xanax] 0.5 mg PO HS PRN 06/17/23 [History] Cholecalciferol [Vitamin D3 (25 Mcg = 1000 Iu)] 50 mcg PO DAILY 06/17/23 [History] Tamsulosin [Flomax] 0.4 mg PO HS 06/17/23 [History] Cetirizine HCl [Zyrtec] 10 mg PO DAILY 09/22/23 [History] Folic Acid/Vit B Complex and C [Nephro-Pooja Tablet] 0.8 mg PO DAILY 09/22/23 [History] Torsemide [Demadex] 40 mg PO SUMOWEFR 09/22/23 [History] Clopidogrel [Plavix] 75 mg PO DAILY #30 tab 10/24/23 [Rx] Rosuvastatin [Crestor] 10 mg PO HS 06/07/24 [History] Topiramate [Topamax] 25 mg PO BID 06/07/24 [History] Metoprolol Tartrate [Lopressor] 25 mg PO BID 30 Days #60 tab 06/10/24 [Rx] Sacubitril/Valsartan [Entresto 24 mg-26 mg Tablet] 1 tab PO BID 06/19/24 [History] Nitroglycerin Sl Tabs [Nitrostat] 0.4 mg SL Q5M PRN 07/04/24 [History] Midodrine [ProAmatine] 10 mg PO AC-TID 30 Days #90 tab 07/06/24 [Rx] Ranolazine [Ranexa] 1,000 mg PO BID 30 Days #120 tab 07/06/24 [Rx] Isosorbide Mononitrate ER [Imdur] 30 mg PO BID #60 tab 07/13/24 [Rx] Follow up Appointment(s)/Referral(s): Marlon Valentino DO [Primary Care Provider] - 1-2 days
--- NOTE | 2024-07-20 14:01 | P.PN ---
Subjective Progress Note Date: 07/20/24 Patient is a 73-year-old male with past medical history significant for coronary artery disease with previous CABG 2 vessels, hypertension, hyperlipidemia, end- stage renal disease (Tuesday, , Tuesday schedule), previous thrombosis of his left AV fistula graft and thrombectomy, diabetes mellitus (insulin- dependent with insulin pump), diabetic neuropathy, COPD, former tobacco smoker, obstructive sleep apnea, noncompliant with CPAP, among other things. PCP is Dr. Valentino. Of note, recently underwent off-pump CABG x 2 with TIAN to LAD and SVG to the ramus intermedius on 10/17/2023. Over the last month patient has had multiple ER visits for angina. Follow-up heart catheterization done 06/07/2024 demonstrating patent left main stent, 50% proximal LAD stenosis, 80% mid LAD stenosis, 20 to 30% ramus stenosis, 100% circumflex artery stenosis and 30% RCA stenosis. Patent TIAN to the LAD and known SVG to the room occluded. On 07/05/2024 did have an outpatient stress test which was inconclusive. On 07/04/2024 had a transesophageal echocardiogram estimated reduced left ventricular ejection fraction of approximately 45%, moderate aortic stenosis, and mild to moderate mitral regurgitation. On July 14, patient was at the hemodialysis center, receiving hemodialysis when he developed severe crushing left sided substernal chest pain. Nonradiating. The hemodialysis center did call 911, and patient was brought into the emergency department. Patient was admitted with a non-ST elevation DE. Troponins were elevated and peaked at 9.75. On July 15 did go for heart catheterization received PTCA to the RCA. TVP was also inserted during the heart catheterization for third-degree AV block. Patient was then sent to the intensive care unit to be managed by cardiology. Subsequently, received a dual- chamber permanent pacemaker on July 17. Patient has had issues with hypotension, remains in the intensive care unit. We were consulted last night for worsening and persistent hypotension. Patient is currently receiving norepinephrine which is infusing at 0.11 mcg/kg/min. They are having troubles obtaining accurate noninvasive blood pressure readings. We are asked to insert an arterial line for continuous blood pressure monitoring. Patient is currently being evaluated in the intensive care unit. He is awake and alert and oriented. His is at bedside. Remains hypotensive, and we are actively titrating up on norepinephrine. Appears to be V paced on bedside monitor in the 70s. Left chest pacemaker generator site appears approximated with postsurgical dressing intact. No significant bleeding or oozing or drainage. Right groin catheter site is clean, dry, approximated. No hematoma or bruising. Distal pulses are weak and found with Doppler. He is on 3 L/min nasal cannula. No respiratory distress noted. Nontachypneic, no conversational dyspnea. Chest x-ray showing stable cardiomegaly with mild pulmonary vascular congestion. Denies current dimas st pain, palpitations, lightheadedness. Endorses orthopnea. He legs feel swollen. CBC: WBC count 6.2, hemoglobin 9.7, hematocrit 29.2, platelets 135. CMP: Sodium 134, potassium 4.1, chloride 95, serum bicarb 30, BUN 30, creatinine 4.73., glucose 141. Current vitals: Temperature 98.4 F, heart rate 76 bpm, blood pressure 91/33 mmHg, SpO2 98% on 3 L/min nasal cannula. On 07/20/2024, the patient is being seen for follow-up. The patient is very lethargic on today's evaluation. At times confused. He opens his eyes to repeated stimulation. Nevertheless, he is very much lethargic and weak. Family is at the bedside. Noted the patient has remained hypotensive and the patient's pressor requirements have gone up and currently the patient is on a norepinephrine running at 0.27 mcg/kg/min. His most recent systolic blood pressures ranging between 60 to 75 mmHg. Does not produce any urine output. He is on hemodialysis and the last hemodialysis session was done yesterday with a total of 1 L of ultrafiltration. Cardiac rhythm is paced. The white cell count 7.5 with a hemoglobin 9.1 and platelet count of 160. Sodium is 133, potassium 3.5, BUN 32 with a creatinine of 4.7. Patient had a follow-up limited echocardiogram yesterday and showed significant impairment of the LV function an d the patient has an ejection fraction of 20% postmyocardial infarction. Discussed the case with cardiology. No role for any further intervention. Not a candidate for mechanical support of heart failure. Not a candidate for any further revascularization. Discussed changing the pressors to a combination epinephrine and dobutamine. Family was informed of those changes. The family opted to proceed with comfort care measures. They understand that he is condition is progressively getting worse even on an outpatient basis and they are aware of his poor prognosis and opted no further intervention.The chest x- ray from yesterday was consistent with CHF and cardiomegaly. Objective - Vital Signs Vital signs: Vital Signs Temp 98.0 F 07/20/24 08:00 Pulse 91 07/20/24 10:00 Resp 21 07/20/24 10:00 BP 100/62 07/20/24 10:00 Pulse Ox 100 07/20/24 10:00 FiO2 50 07/20/24 04:00 Intake & Output 07/19/24 07/20/24 07/20/24 18:59 06:59 18:59 Intake Total 1497.790 728.000 390.858 Output Total 2400 650 0 Balance -902.210 78.000 390.858 Weight 97.9 kg 102.2 kg Intake: IV 240 220 80 KVO 240 220 80 Intake, IV Titration 857.790 508.000 310.858 Amount Norepinephrine 4 mg In 857.790 508.000 310.858 Sodium Chloride 0.9% 250 ml @ 0.03 MCG/KG/MIN 10. 888 mls/hr IV .[id number] [facility] Rx#:[id number] Hemodialysis 400 Output: Urine 0 350 0 Post Void Residual 300 Hemodialysis 1400 Hemodialysis Net Amount 1000 Other: Voiding Method Urinal Urinal Urinal # Voids 1 # Bowel Movements 1 1 ABP, PAP, CO, CI - Last Documented Arterial Blood Pressure 78/27 - Exam GENERAL EXAM: Alert, 73-year-old white male, lethargic, difficult to arouse, confused. HEAD: Normocephalic and atraumatic EYES: Normal reaction of pupils, equal size. NOSE: Clear with pink turbinates. THROAT: No erythema or exudates. NECK: No masses, no JVD. CHEST: Old, healed sternotomy incision. Postsurgical left chest with generator and postsurgical dressing is clean and dry. No discharge, bleeding or hematoma LUNGS: Equal air entry with no crackles, wheeze, rhonchi or dullness. On 3 L/min nasal cannula. SpO2 is 100%. No conversational dyspnea or accessory muscle use.. CVS: S1 and S2 normal with no audible murmur, grade 2 systolic murmur. No extra heart sounds. The patient is currently paced and the patient has a permanent pacemaker in place. ABDOMEN: No hepatosplenomegaly, active bowel sounds, no guarding or rigidity. SPINE: No scoliosis or deformity SKIN: No rashes CENTRAL NERVOUS SYSTEM: No focal deficits, tone is normal in all 4 extremities. Essential tremors. The patient is extremely weak, lethargic, confused, quite obtunded at this point in time. EXTREMITIES: Right groin access site is approximated, clean and dry, without hematoma. Left AV fistula noted with positive bruit and thrill. Right brachial arterial line was inserted with good arterial waveform and distal circulation. Bilateral lower distal pulses found with Doppler and lower extremities are warm to palpation.. - Labs CBC & Chem 7: 07/20/24 06:00 07/20/24 06:00 Labs: Abnormal Lab Results - Last 24 Hours (Table) 07/19/24 07/19/24 07/19/24 Range/Units 10:08 11:16 16:41 RBC (4.30-5.90) m/uL Hgb (13.0-17.5) gm/dL Hct (39.0-53.0) % PT (10.0-12.5) sec INR (<1.2) Sodium (137-145) mmol/L Chloride (98-107) mmol/L BUN (9-20) mg/dL Creatinine (0.66-1.25) mg/dL Glucose (74-99) mg/dL POC Glucose (mg/dL) 248 H 146 H (70-110) mg/dL Calcium (8.4-10.2) mg/dL Cortisol 25.6 H (3.1-22.4) UG/DL 07/19/24 07/20/24 07/20/24 Range/Units 20:10 06:00 06:00 RBC 2.68 L (4.30-5.90) m/uL Hgb 9.1 L (13.0-17.5) gm/dL Hct 26.5 L (39.0-53.0) % PT (10.0-12.5) sec INR (<1.2) Sodium 133 L (137-145) mmol/L Chloride 97 L (98-107) mmol/L BUN 32 H (9-20) mg/dL Creatinine 4.70 H (0.66-1.25) mg/dL Glucose 126 H (74-99) mg/dL POC Glucose (mg/dL) 224 H (70-110) mg/dL Calcium 8.1 L (8.4-10.2) mg/dL Cortisol (3.1-22.4) UG/DL 07/20/24 07/20/24 Range/Units 08:11 09:52 RBC (4.30-5.90) m/uL Hgb (13.0-17.5) gm/dL Hct (39.0-53.0) % PT 17.4 H (10.0-12.5) sec INR 1.7 H (<1.2) Sodium (137-145) mmol/L Chloride (98-107) mmol/L BUN (9-20) mg/dL Creatinine (0.66-1.25) mg/dL Glucose (74-99) mg/dL POC Glucose (mg/dL) 133 H (70-110) mg/dL Calcium (8.4-10.2) mg/dL Cortisol (3.1-22.4) UG/DL Assessment and Plan Assessment: Cardiogenic shock. No evidence of sepsis. Serum cortisol level is elevated. Repeat echocardiogram was done and the patient ejection fraction was estimated to be around 20 to 25%. The patient remains hypotensive and currently on high- dose norepinephrine. Not a candidate for any mechanical support for congestion heart failure. Family is interested in end-of-life care/hospice care. Offered modifications pressors and utilization of a combination of epinephrine and dobutamine. Family declined. Persistent hypotension and shock, cardiogenic, requiring norepinephrine high- dose and the patient remains hypotensive. Diminished pulses in all 4 extremities. Patient is cold and clammy and is in cardiogenic shock. Acute non-ST elevation DE, status post heart catheterization with PTCA to right RCA on 07/15/2024 Symptomatic bradycardia, complete AV block, status post dual-chamber permanent pacemaker insertion on 07/17/2024. Multivessel coronary artery disease, status post two-vessel CABG including TIAN to the LAD, SVG to ramus intermedius done on 10/17/2023, has had multiple subsequent heart catheterizations Ischemic cardiomyopathy, KAREEM, 07/06/24, demonstrating a reduced left ventricular ejection fraction of 45%, with moderate atrial stenosis and mild to moderate mitral regurgitation Acute hypoxemic respiratory failure, currently on 3 L/min nasal cannula, chest x-ray demonstrating stable cardiac silhouette with possible mild pulmonary vascular congestion End-stage renal disease, undergoes hemodialysis on a Tuesday, , Tuesday schedule. Anemia of chronic disease, secondary to above Diabetes mellitus, insulin-dependent normally managed with insulin pump, complicated by diabetic neuropathy History of hypertension History of hyperlipidemia COPD/asthma, stable Remote history of tobacco use Obstructive sleep apnea, noncompliant with CPAP at home Essential tremors Plan: Case discussed with cardiology No further interventions could be offered to this patient Not a candidate for Impella or mechanical support of the heart Continue norepinephrine Patient's family declined any further adjustments in the pressors. They opted for end-of-life comfort care measures. Will hold off dialysis today Continue the current medication, pending hospice consultation. Family is at the bedside. I had a lengthy discussion with the , son and 2 of the daughters at the bedside. Also discussed the case with Dr. Jenkins. Family is very understanding and they totally understand the current medical situation. Prognosis extremely poor. Critical care evaluation that was done more than 30 minutes. Time with Patient: Greater than 30
--- NOTE | 2024-07-23 13:38 | CDI ---
Documentation Clarification Form Date: 07/23/2024 01:21:31 PM From: Alexa Aponte Phone: Admit Date: 07/14/2024 01:17:00 PM Patient Name: Phan Luciano Visit Number: [id number] Discharge Date: 07/20/2024 05:04:00 PM ATTENTION: The Clinical Documentation Specialists (CDI) and [facility] Coding Staff appreciate your assistance in clarifying documentation. Please respond to the clarification below the line at the bottom and electronically sign. The CDI & [facility] Coding staff will review the response and follow-up if needed. Please note: Queries are made part of the Legal Health Record. If you have any questions, please contact the author of this message via ITS. Doctor/Provider: Damien Fung Your patient has an abnormal lab value: POC Glucose 40 per Progress Note 07/16 and 298per 07/19 Progress Note. Please clarify if there is an additional diagnosis and/or clinical significance related to this value. History/Risk Factors: 73yo M, Acute ICM, CSHF, NSTEMI w cardiogenic shock, complete AV block w DCPPM, , RIJ DVT, ICU induceddelirium/t meds, ESRD on HD, IDDMII w Neuropathy & insulin pump, COPD, CAD sp CABG/stents, HLD, BPH Clinical indicators: Glucose 07/14 114 07/15 65-138 07/16 40-198 07/17 126-244 07/18 126- 210 Treatment: insulin Is there an additional diagnosis related to the above lab result/information? Please select any/all that apply [ x ] Type 2 diabetes mellitus with hyperglycemia [ ] Type 2 diabetes mellitus with hypoglycemia [ ] Type 2 diabetes mellitus with no complications [ ] No additional diagnosis/Not clinically significant [ ] Other, please specify [ ] Unable to determine (Template Last Revised: September 2020) MTDD
== END 2024-07-20 17:04 | disposition expired | DRG 242 ==
LOC: EC 10:38 → 3SCARD 13:17 → 2SICU 07-15 15:27
PROVIDERS: ADMIT Student in an Organized Health Care Education/Training Program; ATTEND Student in an Organized Health Care Education/Training Program
PROC: 4A023N7 Measurement of Cardiac Sampling and Pressure, Left Heart, Percutaneous Approach (ICD-10-PCS; 2024-07-15)
PROC: B2111ZZ Fluoroscopy of Multiple Coronary Arteries using Low Osmolar Contrast (ICD-10-PCS; 2024-07-15)
PROC: B240ZZ3 Ultrasonography of Single Coronary Artery, Intravascular (ICD-10-PCS; 2024-07-15)
PROC: 5A1223Z Performance of Cardiac Pacing, Continuous (ICD-10-PCS; 2024-07-15)
PROC: 02703ZZ Dilation of Coronary Artery, One Artery, Percutaneous Approach (ICD-10-PCS; 2024-07-15 13:57)
PROC: 3E033XZ Introduction of Vasopressor into Peripheral Vein, Percutaneous Approach (ICD-10-PCS; 2024-07-16)
PROC: 5A1D70Z Performance of Urinary Filtration, Intermittent, Less than 6 Hours Per Day (ICD-10-PCS; 2024-07-16)
PROC: 02H63JZ Insertion of Pacemaker Lead into Right Atrium, Percutaneous Approach (ICD-10-PCS; 2024-07-17)
PROC: 02HK3JZ Insertion of Pacemaker Lead into Right Ventricle, Percutaneous Approach (ICD-10-PCS; 2024-07-17)
PROC: 0JH606Z Insertion of Pacemaker, Dual Chamber into Chest Subcutaneous Tissue and Fascia, Open Approach (ICD-10-PCS; principal; 2024-07-17 13:36)
PROC: 03HY32Z Insertion of Monitoring Device into Upper Artery, Percutaneous Approach (ICD-10-PCS; 2024-07-18)
PROC: 4A133B1 Monitoring of Arterial Pressure, Peripheral, Percutaneous Approach (ICD-10-PCS; 2024-07-18)
PROC: 4A133J1 Monitoring of Arterial Pulse, Peripheral, Percutaneous Approach (ICD-10-PCS; 2024-07-18)
PROC: 30233J1 Transfusion of Nonautologous Serum Albumin into Peripheral Vein, Percutaneous Approach (ICD-10-PCS; 2024-07-20)
DX: I21.4 Non-ST elevation (NSTEMI) myocardial infarction (principal); J96.01 Acute respiratory failure with hypoxia; N18.6 End stage renal disease; T82.855A Stenosis of coronary artery stent, initial encounter; I13.2 Hypertensive heart and chronic kidney disease with heart failure and with stage 5 chronic kidney disease, or end stage renal disease; I25.810 Atherosclerosis of coronary artery bypass graft(s) without angina pectoris; I44.2 Atrioventricular block, complete; I50.22 Chronic systolic (congestive) heart failure; I82.C11 Acute embolism and thrombosis of right internal jugular vein; F05 Delirium due to known physiological condition; Z99.2 Dependence on renal dialysis; Z66 Do not resuscitate; Z51.5 Encounter for palliative care; I48.91 Unspecified atrial fibrillation; Z79.4 Long term (current) use of insulin; I08.0 Rheumatic disorders of both mitral and aortic valves; G25.0 Essential tremor; J44.89 Other specified chronic obstructive pulmonary disease; E83.51 Hypocalcemia; E87.5 Hyperkalemia; J44.9 Chronic obstructive pulmonary disease, unspecified; R57.0 Cardiogenic shock; E11.65 Type 2 diabetes mellitus with hyperglycemia; E11.42 Type 2 diabetes mellitus with diabetic polyneuropathy; E11.22 Type 2 diabetes mellitus with diabetic chronic kidney disease; D63.1 Anemia in chronic kidney disease; E78.5 Hyperlipidemia, unspecified; H91.90 Unspecified hearing loss, unspecified ear; I25.5 Ischemic cardiomyopathy; M89.8X9 Other specified disorders of bone, unspecified site; G47.33 Obstructive sleep apnea (adult) (pediatric); I25.10 Atherosclerotic heart disease of native coronary artery without angina pectoris; N40.0 Benign prostatic hyperplasia without lower urinary tract symptoms; T40.2X5A Adverse effect of other opioids, initial encounter; Y71.1 Therapeutic (nonsurgical) and rehabilitative cardiovascular devices associated with adverse incidents; Z77.098 Contact with and (suspected) exposure to other hazardous, chiefly nonmedicinal, chemicals; Z87.891 Personal history of nicotine dependence; Z96.41 Presence of insulin pump (external) (internal); I25.2 Old myocardial infarction; Z79.02 Long term (current) use of antithrombotics/antiplatelets; Z79.899 Other long term (current) drug therapy; Z79.82 Long term (current) use of aspirin; Z86.718 Personal history of other venous thrombosis and embolism; Z91.198 Patient's noncompliance with other medical treatment and regimen for other reason
CPT/HCPCS: 33208; 33210; 36415; 70450; 71045; 71046; 80048; 80053; 82533; 83690; 83735; 83880; 84443; 84484; 85025; 85027; 85610; 85730; 87040; 90935; 92920; 92978; 93005; 93306; 93308; 93459; 93970; 94660; 96365; 96366; 96367; 96375; 96376; 99291